=== PATIENT | female | born 1930 | race Caucasian/White ===

== ENCOUNTER 2016-05-08 13:12 | Emergency (ER) | payer MEDICARE ==
[2016-05-08 13:32] VITALS: BP 189/71
--- NOTE | 2016-05-08 13:52 | UC ---
General HPI - HPI Summary HPI Summary: PT HERE CONCERNED ABOUT ELEVATED BP. HAS HAD SYSTOLIC READINGS INTO THE 170S OVER THE PAST 2 DAYS. SHE REPORTS HER NORMAL BP IS 130S-140S ALTHOUGH SHE DOES NOT ROUTINELY CHECK IT AND HAS NOT CHECKED IT RECENTLY UNTIL 2 DAYS AGO WHEN SHE FELT "OFF". HEAD FELT "FOGGY". NO CP, SOB, NAUSEA OR VISUAL DISTURBANCE. DOES HAVE A SLIGHT MENA. ALSO C/O WORSENING RIGHT SHOULDER PAIN SINCE FEBRUARY 2016. HAS BEEN GOING TO PT FOR PRESUMPTIVE ROTATOR CUFF INJURY. NO NEW INJURY TO EXPLAIN WORSENING SX. - History of Current Complaint Chief Complaint: UCGeneralIllness Stated Complaint: HEADACHE SHOULDER PAIN BP UP Time Seen by Provider: 05/08/16 13:40 Hx Obtained From: Patient Onset/Duration: Gradual Onset, Lasting Days, Still Present Timing: Constant Onset Severity: Moderate Current Severity: Moderate Pain Intensity: 8 Associated Signs & Symptoms: Positive: Headache. Negative: Abdominal Pain, Back Pain, Confusion, Chest Pain, Decreased Responsiveness, Dizziness, Diaphoresis, Edema, Fever, Nausea, Palpitations, Recent Medication Changes, Syncope, SOB, Trauma, Vomiting, Weakness - Allergy/Home Medications Allergies/Adverse Reactions: Allergies Allergy/AdvReac Type Severity Reaction Status Date / Time No Known Allergies Allergy Verified 01/11/16 14:12 Home Medications: Home Medications One Daily Women 50+Advanced 05/08/16 [History] PMH/Surg Hx/FS Hx/Imm Hx Endocrine History Of: Denies: Diabetes, Thyroid Disease Cardiovascular History Of: Reports: Cardiac Disorders, Hypertension Denies: Pacemaker/ICD Respiratory History Of: Reports: Bronchitis - 10/2013, [place] NOW Denies: COPD, Asthma GI/ History Of: Denies: Ulcer, Kidney Stones, Renal Disease Cancer History Of: Denies: Breast Cancer Other History Of: Anticoagulant Therapy - Surgical History Surgical History: Yes Surgery Procedure, Year, and Place: AORTIC valve replacement, 2011, [facility] [place] UP TO 3T CARD IN OTHER FACILITY. , 1964, [facility]. Cataract surgery, 2011, [facility] [place], [facility] LEFT FOOT - Family History Known Family History: Positive: Hypertension - Social History Alcohol Use: None Substance Use Type: None Smoking Status (MU): Never Smoked Tobacco Have You Smoked in the Last Year: No - Immunization History Most Recent Influenza Vaccination: this season Most Recent Tetanus Shot: 09/2012 Most Recent Pneumonia Vaccination: 2002 Review of Systems Constitutional: Negative Skin: Negative Respiratory: Negative Cardiovascular: Negative Gastrointestinal: Negative Musculoskeletal: Arthralgia, Decreased ROM, Myalgia Neurological: Headache All Other Systems Reviewed And Are Negative: Yes Physical Exam Triage Information Reviewed: Yes Appearance: Well-Appearing, No Pain Distress, Well-Nourished Vital Signs: Initial Vital Signs Temp 98.1 F 05/08/16 13:25 Pulse 66 05/08/16 13:25 Resp 18 05/08/16 13:25 BP 189/71 05/08/16 13:25 Pulse Ox 100 05/08/16 13:25 Vital Signs Reviewed: Yes Eyes: Positive: Conjunctiva Clear ENT: Positive: Hearing grossly normal Neck: Positive: Supple Respiratory Exam: Normal Cardiovascular: Positive: RRR, Pulses Normal, Murmur:Sys:Grade _?_/ - 2/6 Abdomen Description: Positive: Soft Musculoskeletal: Positive: ROM Limited @ - RIGHT SHOULDER. UNABLE TO PERFORM SPECIAL TESTING DUE TO PATIENT DISCOMFORT., Edema @ - 2+ PITTING EDEMA BILATERALLY Neurological: Positive: Alert Psychological: Positive: Normal Response To Family, Age Appropriate Behavior Skin: Negative: rashes Course/Dx - Differential Dx - Multi-Symptom Provider Diagnoses: 1. RIGHT SHOULDER PAIN. 2. UNCONTROLLED HYPERTENSION Discharge - Discharge Plan Condition: Stable Disposition: HOME Prescriptions: Amlodipine Besylate [Norvasc-] 10 mg PO DAILY #30 tab Patient Education Materials: Hypertension (ED), Shoulder Pain (ED) Referrals: Susy Quevedo MD [Primary Care Provider] - 1 Week Marianne Dailey MD [Medical Doctor] - As Soon As Possible Additional Instructions: SHOULDER SLING FOR COMFORT. OKAY TO CONTINUE WITH GENTLE PHYSICAL THERAPY. FOLLOW-UP WITH ORTHO. YOU MAY BENEFIT FROM IMAGING TO FURTHER EVALUATE YOUR SHOULDER INJURY. WILL INCREASE YOUR NORVASC TO 10MG DAILY. KEEP A BP LOG AND BRING IT TO YOUR PCP APPT FOR REVIEW. BE AWARE THAT NORVASC AND SIMVASTATIN (ZOCOR) TOGETHER CAN INCREASE SIMVASTATIN LEVELS IN YOUR SYSTEM AND INCREASE YOUR RISK OF SIDE EFFECTS SUCH ELEVATED LIVER FUNCTION TESTS AND MUSCLE PAIN. YOU WILL NEED PERIODIC LAB TESTING. CONSIDER DECREASING YOUR SIMVASTATIN DOSE TO 20MG DAILY OR SWITCHING TO AN ALTERNATIVE CHOLESTEROL MEDICINE. PLEASE DISCUSS THIS WITH YOUR PCP. STAY HYDRATED AND WELL RESTED. AVOID EXCESSIVE CAFFEINE. AVOID OTC NSAIDS ( IBUPROFEN, NAPROXEN) THESE CAN ELEVATE YOUR BP. GO TO ER WITHOUT FAIL IF YOU DEVELOP WORSENING HEADACHE, CHEST PAIN, SHORTNESS OF BREATH, NAUSEA, SWEATS OR ANY OTHER CONCERNING SYMPTOMS.
== END 2016-05-08 14:30 | disposition home or self-care (01) ==
LOC: UCEAST 13:12
DX: I10 Essential (primary) hypertension (principal); M25.511 Pain in right shoulder; Z95.4 Presence of other heart-valve replacement; X58.XXXA Exposure to other specified factors, initial encounter; Y92.9 Unspecified place or not applicable
CPT/HCPCS: 99213; G0463

== ENCOUNTER 2016-07-04 13:38 | Emergency (ER) | payer MEDICARE ==
--- NOTE | 2016-07-04 14:10 | UC ---
Dizzy HPI HPI Summary: HAS HAD DIZZY SPELLS OVER THE PAST WEEK OR 2. HAPPENS WHILE WALKING. WILL SUDDENLY FEELS DIZZY AND SOB. LEGS FEEL WEAK AND PT BECOMES PRESYNCOPAL. AFTER SITTING FOR 30 MIN OR SO FEELS BETTER. HAPPENED YESTERDAY WHILE AT [facility] VISITING HER SISTER AND AGAIN TODAY WHILE AT [facility]. CALLED PCP OFFICE AND WAS ADVISED TO COME TO . DENIES CP, FEVER, NAUSEA. HAS H/O CAROTID DISEASE, AV REPLACEMENT, AFIB ON COUMADIN. - History Of Current Complaint Chief Complaint: UCDizziness Stated Complaint: DIZZY, SOB Time Seen by Provider: 07/04/16 13:47 Hx Obtained From: Patient, Family/Trimming Caser - Onset/Duration: Sudden Onset, Still Present Timing: Intermittent Episode Lasting Severity Initially: Moderate Severity Currently: Moderate Pain Intensity: 0 Pain Scale Used: 0-10 Numeric Character: Dizzy Aggravating Factor(s): Exertion Alleviating Factor(s): Rest Associated Signs And Symptoms: Positive: SOB. Negative: Nausea, Vomiting, Diaphoresis, Chest Pain, Palpitations - Allergies/Home Medications Allergies/Adverse Reactions: Allergies Allergy/AdvReac Type Severity Reaction Status Date / Time No Known Allergies Allergy Verified 05/18/16 13:18 PMH/Surg Hx/FS Hx/Imm Hx Endocrine History Of: Denies: Diabetes, Thyroid Disease Cardiovascular History Of: Reports: Cardiac Disorders - Aortic valve replacement , atrial fib, Hypertension - ON MEDS Denies: Pacemaker/ICD Respiratory History Of: Reports: Bronchitis - 10/2013, [place] NOW Denies: COPD, Asthma GI/ History Of: Denies: Ulcer, Kidney Stones, Renal Disease Cancer History Of: Denies: Breast Cancer Other History Of: Anticoagulant Therapy - Surgical History Surgical History: Yes Surgery Procedure, Year, and Place: AORTIC valve replacement, 2011,. , 1963, [facility]. Cataract surgery, 2011, [facility] [place], [facility] LEFT FOOT - Family History Known Family History: Positive: Hypertension - Social History Alcohol Use: None Substance Use Type: None Smoking Status (MU): Never Smoked Tobacco Have You Smoked in the Last Year: No - Immunization History Most Recent Influenza Vaccination: seaon Most Recent Tetanus Shot: 09/2012 Most Recent Pneumonia Vaccination: 2001 Review of Systems Constitutional: Negative Respiratory: Shortness Of Breath Cardiovascular: Negative Gastrointestinal: Negative Genitourinary: Negative Neurological: Weakness, Other - DIZZY All Other Systems Reviewed And Are Negative: Yes Physical Exam Triage Information Reviewed: Yes Appearance: Well-Appearing, No Pain Distress, Well-Nourished, Obese Vital Signs Reviewed: Yes Eyes: Positive: Conjunctiva Clear ENT: Positive: Hearing grossly normal Neck: Positive: Supple Respiratory Exam: Normal Cardiovascular: Positive: Murmur:Sys:Grade _?_/ - 2/6 Abdomen Description: Positive: Nontender, Soft Musculoskeletal: Positive: No Edema Neurological: Positive: Alert Psychological: Positive: Age Appropriate Behavior Skin: Negative: rashes Diagnostics - EKG Cardiac Rate: NL - 65 BPM Cardiac Rhythm: Sinus: Normal Ectopy: None ST Segment: Non-Specific - T WAVE FLATTENING LATERAL LEADS Dizzy Course/Dx - Differential Dx/Diagnosis Provider Diagnoses: DIZZY/SOB - Physician Notifications Discussed Patient Care With: KIRSTEN DAILEY Time Discussed With Above Provider: 14:10 - TO [facility] ER BY AMBULANCE Discharge - Discharge Plan Condition: Stable Disposition: AGAINST MEDICAL ADVICE Referrals: Susy Quevedo MD [Primary Care Provider] -
[2016-07-04 14:17] VITALS: BP 136/62
== END 2016-07-04 14:15 | disposition left against medical advice (07) ==
LOC: UCEAST 13:38
DX: R42 Dizziness and giddiness (principal); R06.02 Shortness of breath; I48.91 Unspecified atrial fibrillation; Z79.01 Long term (current) use of anticoagulants; I10 Essential (primary) hypertension; Z95.2 Presence of prosthetic heart valve; Z98.49 Cataract extraction status, unspecified eye; E66.9 Obesity, unspecified
CPT/HCPCS: 93005; 99212; G0463

== ENCOUNTER 2016-07-04 14:36 | Observation (INO) | payer MEDICARE ==
[2016-07-04 17:05] LABS: Hematocrit 32 % (35-47); Hemoglobin 10.8 g/dl (12.0-16.0); Mean Corpuscular HGB Conc 33 g/dl (31-36); Mean Corpuscular Hemoglobin 31 pg (27-31); Mean Corpuscular Volume 92 fL (80-97); Mean Platelet Volume 8 um3 (7.4-10.4); Red Blood Count 3.53 10^6/ul (4.0-5.4); Red Cell Distribution Width 14 % (10.5-15); White Blood Count 5.5 10^3/ul (3.5-10.8)
[2016-07-04 17:21] LABS: Troponin I 0.02 ng/mL (<0.04)
[2016-07-04 17:24] LABS: Albumin 3.9 g/dL (3.2-5.2); BUN/Creatinine Ratio 18.9 (8-20); Calcium 9.1 mg/dL (8.6-10.3); EGFR African American 44.9 (>60); EGFR Non-African American 34.9 (>60); Globulin 3.1 g/dL (2-4); Potassium 3.8 mmol/L (3.5-5.0); Total Bilirubin 0.5 mg/dL (0.2-1.0)
[2016-07-04 17:34] LABS: Urine Bilirubin Negative (Negative); Urine Glucose Negative (Negative); Urine Nitrite Negative (Negative)
[2016-07-04 17:39] LABS: TSH (Thyroid Stimulating Horm) 2.37 mcIU/mL (0.34-5.60)
--- NOTE | 2016-07-04 18:58 | ED ---
Alistair Scott Billy, scribed for Leeroy Eaton MD on 07/04/16 at 1619 . Dizziness - HPI Summary HPI Summary: Patient is an 85 year-old female coming to [facility] for evaluation of intermittent episodes of dizziness that last about 30 minutes. She states that she has had these episodes today, yesterday, and one week ago. She feels near-syncopal during the onset of these episodes. The episodes are improved with rest. Today, her dizziness began as she was walking. Patient denies any falls or injuries. She also states that she has had difficulty moving her bowels in the last 2-3 months. - History Of Current Complaint Chief Complaint: EDDizziness Stated Complaint: DIZZY COMMING FROM [facility] Time Seen by Provider: 07/04/16 16:08 Hx Obtained From: Patient Onset/Duration: Suddenly Timing: Intermittent Episode Lasting Severity Initially: Moderate Severity Currently: Moderate Character: Lightheaded Aggravating Factor(s): Nothing Alleviating Factor(s): Rest - Allergies/Home Medications Allergies/Adverse Reactions: Allergies Allergy/AdvReac Type Severity Reaction Status Date / Time No Known Allergies Allergy Verified 05/18/16 13:18 PMH/Surg Hx/FS Hx/Imm Hx Endocrine/Hematology History: Reports: Hx Anticoagulant Therapy, Hx Anemia Denies: Hx Diabetes, Hx Thyroid Disease Cardiovascular History: Reports: Hx Coronary Artery Disease, Hx Hypercholesterolemia, Hx Hypertension - ON MEDS, Hx Valvular Heart Disease, Other Cardiovascular Problems/Disorders - aortic valve replacement Denies: Hx Pacemaker/ICD Respiratory History: Denies: Hx Asthma, Hx Chronic Obstructive Pulmonary Disease (COPD) GI History: Denies: Hx Ulcer History: Denies: Hx Kidney Stones, Hx Renal Disease Musculoskeletal History: Reports: Hx Arthritis - GNERALIZED, Hx Back Problems, Other Musculoskeletal History - HAMMER TOE LEFT SECOND TOE Sensory History: Reports: Hx Cataracts - LENS IMPLANTS 2011, Hx Contacts or Glasses - GLASSES, Hx Vision Problem Denies: Hx Hearing Aid Opthamlomology History: Reports: Hx Cataracts - LENS IMPLANTS 2011, Hx Contacts or Glasses - GLASSES, Hx Vision Problem Psychiatric History: Denies: Hx Panic Disorder - Cancer History Hx Chemotherapy: No Hx Radiation Therapy: No - Surgical History Surgery Procedure, Year, and Place: AORTIC valve replacement, 2011,. , 1963, [facility]. [place] [facility] [place] Hx Anesthesia Reactions: No Infectious Disease History: No Infectious Disease History: Denies: Hx Clostridium Difficile, Hx Hepatitis, Hx Human Immunodeficiency Virus (HIV), Hx of Known/Suspected MRSA, Hx Shingles, Hx Tuberculosis, Hx Known/ Suspected VRE, Hx Known/Suspected VRSA, History Other Infectious Disease, Traveled Outside the [place] in Last 30 Days - Family History Known Family History: Positive: Hypertension - Social History Alcohol Use: None Substance Use Type: Reports: None Smoking Status (MU): Never Smoked Tobacco Have You Smoked in the Last Year: No Review of Systems Negative: Fever Positive: Other - difficulty with BM Neurological: Other - dizziness All Other Systems Reviewed And Are Negative: Yes Physical Exam Triage Information Reviewed: Yes Vital Signs On Initial Exam: Initial Vitals Temp Pulse Resp BP Pulse Ox 97.2 F 66 18 156/62 100 07/04/16 14:41 07/04/16 14:41 07/04/16 14:41 07/04/16 14:41 07/04/16 14:41 Vital Signs Reviewed: Yes Appearance: Positive: Well-Appearing, No Pain Distress Skin: Positive: Warm, Skin Color Reflects Adequate Perfusion, Dry Head/Face: Positive: Normal Head/Face Inspection Eyes: Positive: Normal - No nystagmus ENT: Positive: Normal ENT inspection Neck: Positive: Supple, Nontender Cardiovascular: Positive: RRR, Pulses are Symmetrical in both Upper and Lower Extremities Abdomen Description: Positive: Nontender, Soft Musculoskeletal: Positive: Strength/ROM Intact, Edema Left - 1+ pedal edema bilaterally, Edema Right - 1+ pedal edema bilaterally Neurological: Positive: Normal, Sensory/Motor Intact, Alert, Oriented to Person Place, Time Psychiatric: Positive: Affect/Mood Appropriate - Pete Coma Scale Coma Scale Total: 15 Diagnostics - Vital Signs Vital Signs Temp Pulse Resp BP Pulse Ox 07/04/16 16:00 63 99 07/04/16 15:57 64 99 07/04/16 15:49 97 F 65 16 184/73 99 07/04/16 14:41 97.2 F 66 18 156/62 100 - Laboratory Lab Results: Lab Results 07/04/16 07/04/16 07/04/16 Range/Units 16:46 16:46 16:46 WBC 5.5 (3.5-10.8) 10^3/ul RBC 3.53 L (4.0-5.4) 10^6/ul Hgb 10.8 L (12.0-16.0) g/dl Hct 32 L (35-47) % MCV 92 (80-97) fL MCH 31 (27-31) pg MCHC 33 (31-36) g/dl RDW 14 (10.5-15) % Plt Count 149 L (150-450) 10^3/ul MPV 8 (7.4-10.4) um3 Neut % (Auto) 65.5 (38-83) % Lymph % (Auto) 21.1 L (25-47) % [place] % (Auto) 11.4 H (1-9) % Eos % (Auto) 1.2 (0-6) % Baso % (Auto) 0.8 (0-2) % Absolute Neuts (auto) 3.6 (1.5-7.7) 10^3/ul Absolute Lymphs (auto) 1.2 (1.0-4.8) 10^3/ul Absolute Monos (auto) 0.6 (0-0.8) 10^3/ul Absolute Eos (auto) 0.1 (0-0.6) 10^3/ul Absolute Basos (auto) 0 (0-0.2) 10^3/ul Absolute Nucleated RBC 0 10^3/ul Nucleated RBC % 0.1 INR (Anticoag Therapy) (0.89-1.11) D-Dimer, Quantitative (Less Than 230) ng/mL Sodium 139 (133-145) mmol/L Potassium 3.8 (3.5-5.0) mmol/L Chloride 102 (101-111) mmol/L Carbon Dioxide 31 (22-32) mmol/L Anion Gap 6 (2-11) mmol/L BUN 27 H (6-24) mg/dL Creatinine 1.43 H (0.51-0.95) mg/dL Est GFR ( Amer) 44.9 (>60) Est GFR (Non-Af Amer) 34.9 (>60) BUN/Creatinine Ratio 18.9 (8-20) Glucose 100 (70-100) mg/dL Lactic Acid 0.7 (0.5-2.0) mmol/L Calcium 9.1 (8.6-10.3) mg/dL Magnesium 2.0 (1.9-2.7) mg/dL Total Bilirubin 0.50 (0.2-1.0) mg/dL AST 17 (13-39) U/L ALT 9 (7-52) U/L Alkaline Phosphatase 66 (34-104) U/L Troponin I 0.02 (<0.04) ng/mL Total Protein 7.0 (6.4-8.9) g/dL Albumin 3.9 (3.2-5.2) g/dL Globulin 3.1 (2-4) g/dL Albumin/Globulin Ratio 1.3 (1-3) TSH 2.37 (0.34-5.60) mcIU/mL Urine Color Urine Appearance Urine pH (5-9) Ur Specific [place] (1.010-1.030) Urine Protein (Negative) Urine Ketones (Negative) Urine Blood (Negative) Urine Nitrate (Negative) Urine Bilirubin (Negative) Urine Urobilinogen (Negative) Ur Leukocyte Esterase (Negative) Urine Glucose (Negative) 07/04/16 07/04/16 Range/Units 16:46 17:22 WBC (3.5-10.8) 10^3/ul RBC (4.0-5.4) 10^6/ul Hgb (12.0-16.0) g/dl Hct (35-47) % MCV (80-97) fL MCH (27-31) pg MCHC (31-36) g/dl RDW (10.5-15) % Plt Count (150-450) 10^3/ul MPV (7.4-10.4) um3 Neut % (Auto) (38-83) % Lymph % (Auto) (25-47) % [place] % (Auto) (1-9) % Eos % (Auto) (0-6) % Baso % (Auto) (0-2) % Absolute Neuts (auto) (1.5-7.7) 10^3/ul Absolute Lymphs (auto) (1.0-4.8) 10^3/ul Absolute Monos (auto) (0-0.8) 10^3/ul Absolute Eos (auto) (0-0.6) 10^3/ul Absolute Basos (auto) (0-0.2) 10^3/ul Absolute Nucleated RBC 10^3/ul Nucleated RBC % INR (Anticoag Therapy) 2.72 H (0.89-1.11) D-Dimer, Quantitative < 200 (Less Than 230) ng/mL Sodium (133-145) mmol/L Potassium (3.5-5.0) mmol/L Chloride (101-111) mmol/L Carbon Dioxide (22-32) mmol/L Anion Gap (2-11) mmol/L BUN (6-24) mg/dL Creatinine (0.51-0.95) mg/dL Est GFR ( Amer) (>60) Est GFR (Non-Af Amer) (>60) BUN/Creatinine Ratio (8-20) Glucose (70-100) mg/dL Lactic Acid (0.5-2.0) mmol/L Calcium (8.6-10.3) mg/dL Magnesium (1.9-2.7) mg/dL Total Bilirubin (0.2-1.0) mg/dL AST (13-39) U/L ALT (7-52) U/L Alkaline Phosphatase (34-104) U/L Troponin I (<0.04) ng/mL Total Protein (6.4-8.9) g/dL Albumin (3.2-5.2) g/dL Globulin (2-4) g/dL Albumin/Globulin Ratio (1-3) TSH (0.34-5.60) mcIU/mL Urine Color Straw Urine Appearance Clear Urine pH 7.0 (5-9) Ur Specific [place] 1.003 L (1.010-1.030) Urine Protein Negative (Negative) Urine Ketones Negative (Negative) Urine Blood Negative (Negative) Urine Nitrate Negative (Negative) Urine Bilirubin Negative (Negative) Urine Urobilinogen Negative (Negative) Ur Leukocyte Esterase Negative (Negative) Urine Glucose Negative (Negative) Result Diagrams: 07/04/16 16:46 07/04/16 16:46 Lab Statement: Any lab studies that have been ordered have been reviewed, and results considered in the medical decision making process. - EKG 5928 EKG Interpretation: borderline sinus bradycardia 60 bpm, diffuse nonspecific ST changes Dizzy Course/Dx - Course Course Of Treatment: Ms. Campos has a a numbeer of these concerning episodes and although her W/U is negative at this point, I have asked the hospitalist to see her in consultation. - Diagnoses Provider Diagnoses: Near syncope - Provider Notifications Discussed Care Of Patient with: Dr. Lincoln Discharge - Discharge Plan Condition: Stable Disposition: ADMITTED TO [facility] documentation as recorded by the Alistair harrington Billy accurately reflects the service I personally performed and the decisions made by me, Leeroy Eaton MD.
--- NOTE | 2016-07-04 20:55 | RAD ---
INDICATION: Shortness of breath. COMPARISON: Comparison is made with a prior chest x-ray study from August 13, 2015. TECHNIQUE: A portable view of the chest was obtained. FINDINGS: The patient is status post sternotomy and aortic valve replacement surgery. The heart is mildly enlarged and unchanged from the prior exam. The lungs are clear. No pleural effusion is seen. IMPRESSION: POSTSURGICAL CHANGES, NO EVIDENCE FOR ACUTE FINDING.
[2016-07-04] MEDS: Docusate CAP* 100 MG PO SCH (21:45)
[2016-07-04] MEDS: Carvedilol TAB* 3.125 MG PO SCH (21:45)
[2016-07-04] MEDS ORDERED: Atorvastatin* 20 MG TAB PO SCH (22:00)
--- NOTE | 2016-07-04 23:46 | HP ---
HISTORY AND PHYSICAL: DATE OF ADMISSION: 07/04/16 CHIEF COMPLAINT: "I almost passed out." HISTORY OF PRESENT ILLNESS: The patient is an 85-year-old woman who says she went to [place] earlier today, went to the bathroom, and urinated, walked out and then suddenly felt dizzy and lightheaded. The room was not spinning, but she felt like she was going to faint and she was breathing quite heavy. Her legs felt like they were going to give out, so she sat down for a while. Her got her and took her home and it took about half hour to recover. She had a similar episode yesterday when visiting her sister Myrna. She developed significant shortness of breath and felt she was going to faint. Again, she had to rest for half hour. The sensation of lightheadedness comes to the back of her neck to the top of her head. She denied any associated symptoms like palpitations, chest pain, wheezing, fevers, chills or cough. She does note that she has had small bowel movements lately that were like chocolate colored raisins. Her last colonoscopy was in 2008 or 2009 that was within normal limits. She also notes similar symptoms happened a week ago. She has had a lot of stress in her life lately as the last couple of months she had to visit her [id number] in hospice and sometimes goes all day without eating traveling back and forth. Also, her sister was recently injured this past weekend and again was quite active in helping her. PAST MEDICAL HISTORY: Significant for atrial fibrillation, hypertension, aortic stenosis, hyperlipidemia, and cataracts. PAST SURGICAL HISTORY: Significant for aortic valve replacement. CURRENT MEDICATIONS: 1. Amiodarone 100 mg daily. 2. Vitamin B12 1000 mcg daily. 3. Carvedilol 3.125 mg twice daily. 4. Calcium carbonate with vitamin D 2 tabs twice daily. 5. Aspirin 81 mg daily. 6. Amlodipine 5 mg daily. 7. Potassium chloride 1 tablet daily. 8. Women 50 plus vitamin 1 tablet daily. 9. Furosemide 40 mg in the morning. 10. Folic acid 1 mg in the morning. 11. Ferrous sulfate 325 mg in the morning. 12. Docusate 100 mg 3 times a day. 13. Coumadin 5 mg daily. 14. Zocor 40 mg daily. ALLERGIES: She has no known drug allergies. FAMILY HISTORY: Mother had a heart disease. Father had a stroke. SOCIAL HISTORY: No tobacco. She drinks a couple of cups coffee a day. No alcohol or recreational drug use. Her daughter, Dwaine Christine, and her are her healthcare proxies. REVIEW OF SYSTEMS: A 14-point review of systems was completed with the patient. All pertinent positives and negatives are in the history of present illness, otherwise it is negative. PHYSICAL EXAMINATION GENERAL: A very pleasant woman, lying in bed, in no acute distress. VITAL SIGNS: Blood pressure 172/68, pulse ox 100%, respiratory rate 16 breaths per minute, heart rate 69 beats per minute, and temperature 98.4 degrees. HEENT: Normocephalic, atraumatic. Pupils are equal, round, and reactive to light. Moist mucous membranes. NECK: Supple. No JVD, bruits, palpable thyroid, or lymphadenopathy. CARDIOVASCULAR: S1 and S2 appreciated. ABDOMEN: Positive bowel sounds in all 4 quadrants. Soft, nontender, and nondistended. EXTREMITIES: No cyanosis, clubbing, or edema; +2 peripheral pulses bilaterally. NEUROLOGIC: Alert and oriented x3. Moves all extremities. SKIN: No rashes or abnormalities. LABORATORY DATA/DIAGNOSTIC STUDIES: White count 5.5, hemoglobin 10.8, hematocrit 32, platelets 149. Sodium 139, potassium 3.8, chloride 102, CO2 31, BUN 37, creatinine 1.43, glucose 100. INR is 2.72. Urinalysis is unremarkable. EKG shows normal sinus rhythm at 60 beats per minute. Normal axis. Nonspecific ST-T wave changes. ASSESSMENT AND PLAN: 1. Near syncopal episode. At this point, it is unclear as to the etiology. I will cycle troponins to ensure she did not have , but I think it is highly unlikely. I will check a chest x-ray because of her shortness of breath, but again her lungs sound clear and she seems to be oxygenating well. I will add a BNP to her regimen. I will check a transthoracic echocardiogram in the morning. I suspect this may be stress and/or anxiety as the patient has been involved in a lot of family activities including her [id number] being in hospice and her sister recently being injured. We will also monitor and see if anything declares itself overnight. 2. Atrial fibrillation. Heart rate controlled, in sinus rhythm now and she is therapeutic on her Coumadin. 3. Hypertension: Inadequate control. May adjust medications as necessary. 4. Hyperlipidemia: Continue Lipitor. 5. FEN: Regular diet. 6. DVT prophylaxis. She is on Coumadin. 7. The patient is a full code. TIME SPENT: Over 75 minutes were spent on this H and P, more than 40 minutes of which was spent in direct [id number] contact with the patient in evaluation , physical exam, counseling and coordination of care. CC: Dr. Quevedo* [id number]/CPS #: [id number] DONNA
[2016-07-05] MEDS ORDERED: Perflutren Lipid Microsphere* 3 ML VIAL ONE (08:23)
[2016-07-05 08:44] VITALS: BP 155/58
[2016-07-05] MEDS: Docusate CAP* 100 MG PO SCH ×2 (08:46→13:03)
[2016-07-05] MEDS: Carvedilol TAB* 3.125 MG PO SCH (08:49)
[2016-07-05] MEDS ORDERED: Potassium Chlor TAB* 10 MEQ TAB.ER PO SCH (09:00)
[2016-07-05] MEDS ORDERED: Folic Acid TAB* 1 MG PO SCH (09:00)
[2016-07-05] MEDS ORDERED: amLODIPine TAB* 5 MG PO SCH (09:00)
[2016-07-05] MEDS ORDERED: Amiodarone TAB* 200 MG PO SCH (09:00)
[2016-07-05] MEDS ORDERED: Cyanocobalamin TAB* 500 MCG PO SCH (09:00)
[2016-07-05] MEDS ORDERED: Aspirin EC Low Dose* 81 MG TAB.EC PO SCH (09:00)
[2016-07-05] MEDS ORDERED: Ferrous Sulfate TAB* 325 MG PO SCH (09:00)
[2016-07-05] MEDS ORDERED: Multivitamins/Minerals TAB PO SCH (09:00)
--- NOTE | 2016-07-05 11:33 | ECHO ---
Patient: MARJAN BHAT [facility] Rec#: [id number] : 1930 Date: 07/05/2016 Age: 85y Height: 167.64 cm / 66.0 in Weight: 102.51 kg / 225.9 lbs Sex: F BSA: 2.11 Room#: 442 Admit Date#: 07/04/2016 Type: Inpatient Referring: Brent Lincoln MD Reading: Dannie Tripathi MD Inspection Manager: Brittni Lafleur,LINHCS,RDMS CC: Talib Cisneros MD CC: Susy Quevedo MD Transthoracic Echocardiogram Indication: Syncope BP: 126/48 HR: 56 Rhythm: Bradycardia Indications Syncope Findings History: AVR (bioprosthetic), HTN, HLD, AFIB, CAD Technical Comments: The study quality is fair. Completed 914 The study is technically limited due to poor apical windows. Left Ventricle: The left ventricular chamber size is normal. Mild to moderate concentric left ventricular hypertrophy is observed. Global left ventricular wall motion and contractility are within normal limits. The estimated ejection fraction is 60-65%. Post surgical hypokinesis of the interventricular septum is observed consistent with valve replacement. There is no consistent Doppler evidence of clinically significant diastolic dysfunction. Left Atrium: The left atrium is moderate to severely dilated. Right Ventricle: The right ventricle wall thickness is mildly increased. The right ventricular cavity size is normal. The right ventricular global systolic function is low normal. Right Atrium: The right atrium is moderately dilated. Aortic Valve: There is no evidence of aortic regurgitation. The mean gradient of the aortic valve is 10 mmHg. The aortic valve area, by peak velocities, is calculated at 1.3 cm2. A bio-prosthetic aortic valve is present. The bio-prosthetic aortic valve appears to be functioning normally. Mitral Valve: There is mitral annular calcification. The mitral valve leaflets are mildly thickened. There is trace to mild mitral regurgitation. There is mild mitral stenosis. The mitral valve area, by pressure half time, is calculated at 2.8 cm2. Tricuspid Valve: The tricuspid valve leaflets are normal. There is mild to moderate tricuspid regurgitation. No pulmonary hypertension is noted. Pulmonic Valve: The pulmonic valve appears normal. There is a trace pulmonic regurgitation. Pericardium: There is no significant pericardial effusion. Aorta: The aortic root appears normal. The aortic arch is not well visualized. Pulmonary Artery: The main pulmonary artery appears normal. Venous: The inferior vena cava appears normal in size. There is a greater than 50% respiratory change in the inferior vena cava dimension. Contrast: Definity was used to optimize study. A total of 5 ml was used Conclusions Mild to moderate concentric left ventricular hypertrophy is observed. Global left ventricular wall motion and contractility are within normal limits. The estimated ejection fraction is 60-65%. Post surgical hypokinesis of the interventricular septum is observed consistent with valve replacement. The left atrium is moderate to severely dilated. The right atrium is moderately dilated. A bio-prosthetic aortic valve is present. The bio-prosthetic aortic valve appears to be functioning normally. There is mitral annular calcification. There is trace to mild mitral regurgitation. There is mild mitral stenosis. The mitral valve area, by pressure half time, is calculated at 2.8 cm2. There is mild to moderate tricuspid regurgitation. There is a trace pulmonic regurgitation. Compared to report of study from 02/20/2013 the mild to moderate LVH is now noted. Measurements Name Value Normal Range RVIDd (AP) 2D 2.1 cm (0.9 - 2.6) RVDdMajor (2D) 2.9 cm (2.2 - 4.4) RAd ISD 4CH 6.7 cm (3.4 - 4.9) RA (A4C)W 3.8 cm (2.9 - 4.6) IVSd (2D) 1.4 cm (0.6 - 1) LVPWd (2D) 1.3 cm (0.6 - 1) LVIDd (2D) 4.5 cm (3.6 - 5.4) LVIDs (2D) 3 cm - LV FS (2D) 33 % (25 - 45) Aortic Annulus 2 cm (1.4 - 2.6) Ao root diameter (2D) 2.9 cm (2.1 - 3.5) Ascending Ao 3.4 cm (2.1 - 3.4) LA dimension (AP) 2D 4.8 cm (2.3 - 3.8) LAd ISD 4CH 7.7 cm (2.9 - 5.3) LA ISD 4CH W 5.5 cm (2.5 - 4.5) Name Value Normal Range LA ESV SP 4CH (A/L) 211.35 ml - LA ESV SP 2CH (A/L) 87.88 ml - LA ESV BP (A/L) 145.68 ml - LA ESV BP (A/L) index 69 ml/m2 - LA ESV SP 4CH (MOD) 203.53 ml - LA ESV SP 2CH (MOD) 83.81 ml - Name Value Normal Range MV E-wave Vmax 1.2 m/sec - MV deceleration time 184.2 msec - MV A-wave Vmax 0.5 m/sec - MV E:A ratio 2.4 ratio - P. vein S-wave Vmax 0.7 m/sec - P. vein D-wave Vmax 0.6 m/sec - P. vein A-wave duration 133 msec - LV lateral e' Vmax 0.12 m/sec - LV E:e' lateral ratio 10 ratio - Name Value Normal Range AV Vmax 2.1 m/sec - AV VTI 56.6 cm - AV peak gradient 18 mmHg - AV mean gradient 10 mmHg - LVOT diameter 2 cm - LVOT Vmax 0.9 m/sec - LVOT VTI 24.4 cm - LVOT peak gradient 3.2 mmHg - LVOT mean gradient 1.9 mmHg - DOI (VTI) 0.4 ratio - SV LVOT 76.81 ml - SANDY (continuity Vmax) 1.3 cm2 - SANDY (continuity VTI) 1.4 cm2 - Name Value Normal Range MV Vmax 1.4 m/sec - MV VTI 37.2 cm - MV peak gradient 8 mmHg - MV mean gradient 2.1 mmHg - MV PHT 78 msec - MVA (PHT) 2.8 cm2 - MVA (continuity VTI) 2.1 cm2 - Name Value Normal Range TR Vmax 2.8 m/sec - TR peak gradient 31 mmHg - RAP 3 mmHg - RVSP 34 mmHg - IVC diameter 2.1 cm - Name Value Normal Range PV Vmax 0.7 m/sec - PV peak gradient 2 mmHg -
[2016-07-05] MEDS ORDERED: Warfarin TAB(*) 5 MG PO SCH (17:00)
--- NOTE | 2016-07-06 05:00 | DS ---
DISCHARGE SUMMARY: DATE OF ADMISSION: 07/04/16 DATE OF DISCHARGE: 07/05/16 ADMISSION DIAGNOSIS: Near syncope. SECONDARY DIAGNOSES: 1. Atrial fibrillation. 2. Hypertension. 3. Aortic stenosis. 4. Hyperlipidemia. 5. Cataracts. DISCHARGE DIAGNOSES: 1. Near syncope. 2. Atrial fibrillation. 3. Hypertension. 4. Aortic stenosis. 5. Hyperlipidemia. 6. Cataracts. HOSPITAL COURSE: The patient is an 85-year-old woman who presented to [facility] because she almost passed out, was feeling lightheaded and dizzy. Please see H and P for further details. The patient was admitted, ruled out for an NM with serial troponins. The patient was on telemetry all night without a single incident. The patient had a transthoracic echo, the results of which are outlined below, which was unremarkable. The patient ambulated several times around the floor with no symptoms. 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 The patient ____ _ this could be the case, and she will follow up with her PCP as well. PHYSICAL EXAMINATION ON THE DATE OF DISCHARGE: Well-developed, well-nourished woman, sitting up in bed, in no acute distress. Vital Signs: Temperature 98.2 degrees, heart rate 56 beats per minute, respiratory rate 20 breaths per minute , pulse ox 95%, blood pressure 155/58. HEENT: Normocephalic, atraumatic. Pupils equal, round, and reactive to light. Moist mucous membranes. Neck: Supple. No JVD, bruits, palpable thyroid or lymphadenopathy. Her chest is clear to auscultation and percussion bilaterally. Cardiovascular Exam: S1, S2 appreciated. Abdominal Exam: Positive bowel sounds in all 4 quadrants. Soft, nontender, nondistended. Extremities: No cyanosis or clubbing, +2 peripheral pulse bilaterally. Neuro: Alert and oriented x3. Moves all extremities. Skin : No rashes or abnormalities. STUDIES DONE WHILE IN THE HOSPITAL: Chest x-ray, 07/04/16, impression: Postsurgical changes, no evidence for acute finding. Transthoracic echocardiogram, 07/04/16, impression: Ndgu-rp-mtyyazaj concentric left ventricular hypertrophy observed, global left ventricular wall motion contractility within normal limits. Estimated ejection fraction is 60% to 65%, postsurgical hypokinesis in the interventricular septum observed consistent with valve replacement. Left atrium is moderate to severely dilated. Right atrium is moderately dilated. Bioprosthetic aortic valve is present. The bioprosthetic aortic valve appears to be functioning normally. Mitral annular calcification, trace to mild mitral regurg, mild mitral stenosis , mitral valve area by pressure half times calculated to cm sq. There is ompr-gn-mixrlpny tricuspid regurgitation. There is trace pulmonic regurgitation compared to prior study in 02/20/13, there is tghv-gj-kybisloz LVH now noted. DISCHARGE MEDICATIONS: 1. Amiodarone 100 mg daily. 2. Vitamin B12 1000 mcg daily. 3. Carvedilol 3.125 mg twice daily. 4. Calcium carbonate with vitamin D two tabs twice daily. 5. Aspirin 81 mg daily. 6. Amlodipine 5 mg daily. 7. Potassium chloride one tablet 10 mEq daily. 8. Women advanced vitamin daily. 9. Furosemide 40 mg in the morning. 10. Folic acid 1 mg in the morning. 11. Ferrous sulfate 325 mg in the morning. 12. Docusate 100 mg 3 times a day. 13. Warfarin 5 mg daily. 14. Simvastatin 40 mg daily. DISCHARGE PLAN: The patient will be discharged to home and she will follow up with her PCP for further workup. The patient to return to the ED if she develops any worrisome symptoms. TIME SPENT: Over 35 minutes were spent on this discharge and more than 20 minutes of which were spent in direct face-to- face contact with the patient in evaluation, physical exam, counseling, and coordination of care. CC: Dr. Quevedo * [id number]/[facility] #: [id number] DONNA
== END 2016-07-05 16:19 | disposition home or self-care (01) ==
LOC: ED 14:36 → MEDTELE 17:48
PROVIDERS: ADMIT Internal Medicine; ATTEND Internal Medicine
DX: R55 Syncope and collapse (principal); I48.91 Unspecified atrial fibrillation; Z79.01 Long term (current) use of anticoagulants; Z79.82 Long term (current) use of aspirin; I10 Essential (primary) hypertension; I35.0 Nonrheumatic aortic (valve) stenosis; E78.5 Hyperlipidemia, unspecified
CPT/HCPCS: 36415; 71010; 80053; 81003; 83605; 83735; 83880; 84443; 84484; 85025; 85379; 85610; 93005; 93306; 99283; A9270-GY; C8929; G0378

== ENCOUNTER 2016-08-26 10:20 | Observation (INO) | payer MEDICARE ==
[2016-08-26] MEDS ORDERED: Diltiazem IV* 5 MG/ML 5 ML VIAL (for loading dose/IV Push) (25 MG) IV PUSH ONE (10:59)
[2016-08-26 11:17] LABS: Hematocrit 32 % (35-47); Hemoglobin 10.4 g/dl (12.0-16.0); Mean Corpuscular HGB Conc 33 g/dl (31-36); Mean Corpuscular Hemoglobin 30 pg (27-31); Mean Corpuscular Volume 93 fL (80-97); Mean Platelet Volume 8 um3 (7.4-10.4); Red Blood Count 3.42 10^6/ul (4.0-5.4); Red Cell Distribution Width 15 % (10.5-15); White Blood Count 5.3 10^3/ul (3.5-10.8)
[2016-08-26 11:42] LABS: Albumin 3.7 g/dL (3.2-5.2); BUN/Creatinine Ratio 14.8 (8-20); Calcium 8.9 mg/dL (8.6-10.3); EGFR African American 47.9 (>60); EGFR Non-African American 37.3 (>60); Globulin 3.1 g/dL (2-4); Potassium 3.7 mmol/L (3.5-5.0); Total Bilirubin 0.6 mg/dL (0.2-1.0); Total Protein 6.8 g/dL (6.4-8.9)
--- NOTE | 2016-08-26 11:48 | RAD ---
INDICATION: Chest pain COMPARISON: Most recent comparison chest x-rays dated July 04, 2016 TECHNIQUE: Single AP portable view of the chest was obtained. FINDINGS: Image quality is compromised due to the relative inferiority of a portable chest x-ray. Stable postsurgical findings include a prostatic aortic valve and sternotomy wires overlying the midline mediastinum. There is mild cardiomegaly and faint calcification overlying the arch of the aorta. The lungs are grossly clear. There is no evidence of a large pleural effusion. Visualized bones are normal for the patient's age. IMPRESSION: No radiographic evidence for acute cardiopulmonary abnormality on this portable chest x-ray.
[2016-08-26 11:53] LABS: Urine Bacteria Absent (Absent); Urine Bilirubin Negative (Negative); Urine Glucose Negative (Negative); Urine Nitrite Negative (Negative)
[2016-08-26 12:58] LABS: TSH (Thyroid Stimulating Horm) 3.91 mcIU/mL (0.34-5.60)
[2016-08-26] MEDS ORDERED: NS 0.9% 500 ML BAG* 500 ML IV ONE (13:00)
[2016-08-26] MEDS ORDERED: Diltiazem IV VIAL* 125 MG in D5W 100 ML BAG* 100 ML IV ONE (13:16)
[2016-08-26] MEDS ORDERED: Amiodarone TAB* 400 MG PO ONE (13:44)
[2016-08-26] MEDS ORDERED: Diltiazem IV* 5 MG/ML 5 ML VIAL (for loading dose/IV Push) (25 MG) IV SLOW PU ONE (13:44)
[2016-08-26] MEDS: KCL 20 MEQ/100 ML IVPREMIX* 20 MEQ/100 ML BAG IV SCH ×2 (15:35→18:36)
[2016-08-26] MEDS: Docusate CAP* 100 MG PO SCH ×2 (15:38→21:14)
[2016-08-26] MEDS ORDERED: Digoxin IV* 0.5 MG/2 ML AMP (0.25 MG/ML) IV SLOW PU ONE (15:47)
[2016-08-26] MEDS: Diltiazem IV VIAL* 125 MG in D5W 100 ML BAG* 100 ML IV ONE ×2 (15:50→19:10)
[2016-08-26] MEDS ORDERED: Warfarin TAB(*) 5 MG PO SCH (17:00)
[2016-08-26] MEDS ORDERED: Digoxin IV* 0.5 MG/2 ML AMP (0.25 MG/ML) IV SLOW PU SCH ×2 (18:00→20:00)
[2016-08-26] MEDS: Amiodarone TAB* 400 MG PO SCH ×2 (21:17→22:59)
[2016-08-26] MEDS: Carvedilol TAB* 3.125 MG PO SCH ×2 (21:17→22:58)
--- NOTE | 2016-08-26 21:36 | CONS ---
CARDIOLOGY CONSULTATION: DATE OF CONSULT: 08/26/16 PATIENT OF: Dr. Cisneros and Dr. Quevedo. REASON FOR EVALUATION: AFib, shortness of breath, elevated troponin. HISTORY OF PRESENT ILLNESS: Ms. Sherwood is a very pleasant 85-year-old woman, who has a history of hypertension and paroxysmal atrial fibrillation and aortic valve replacement in March 2012. She has required infrequent cardioversion over the last few years and been maintained on low-dose amiodarone. She apparently has been in her usual state of health until the last 3 months. She said that starting in June, she would notice a couple of episodes of exertional light-headedness that would come on with walking a few feet and she would get short of breath and lightheaded and had to sit for 15 minutes and then that would resolve. Her witnessed a couple of these episodes. She had a couple more in July and one last Saturday. In between, she is able to walk, do her shopping at the supermarket, do her chores cleaning the house, do her laundry. Yesterday, she awoke and was more short of breath and noticed that her heart was irregular. She said she did her chores, but having got fatigued and had to stop after each activity. Because of the symptoms, she came to the hospital today and was noted to be in AFib with rapid ventricular response. She also had some nonspecific ST changes inferolaterally different from what she had in August of 2015. Initially, she was given a bolus of diltiazem 20 mg with slowing of her heart rate to the 100s, but she also developed a low blood pressure in the low 90s. She was given some fluid and now has a better blood pressure and her heart rates are in the 120s to 130s. She denies any chest pain. She denies any strokes. No bleeding problem. No hematemesis, hematochezia, fevers, chills, or sweats. No nausea or vomiting. She denies alcohol use and she drinks 1 or 2 cups of decaffeinated coffee a day. PAST MEDICAL HISTORY: Includes hypertension, aortic valve replacement in 2012, paroxysmal atrial fibrillation in 2006, obesity. She denies tobacco use. She was recently diagnosed with a uterine mass 2 weeks ago and is anticipating possible surgery. She also has anemia which is chronic. She had a catheterization in January 2012. At that time, she had 50% left main lesion, ostial 50% of OM branch. Ramus had an ostial 50% and RCA had an ostial 50% and proximal 50% and at that time, she had fawlolzn-mu-tioyje aortic stenosis with a mean gradient of 36 and a valve area of 1.1. She has chronic renal insufficiency that is mild and chronic anemia. MEDICATIONS: As an outpatient include: 1. Colace 100 mg t.i.d. 2. Vitamin B12 1000 mcg a day. 3. Carvedilol 3.125 mg b.i.d. 4. Calcium carbonate with vitamin D 2 tabs p.o. b.i.d. 5. Aspirin 81 mg a day. 6. Amlodipine 5 mg a day. 7. Amiodarone 100 mg a day. 8. Warfarin 5 mg a day. 9. Simvastatin 40 mg a day. 10. Potassium 10 mEq a day. 11. Furosemide 40 mg a day. 12. Ferrous sulfate 325 a day. An an inpatient, she is on: 1. Amiodarone. 2. Aspirin. 3. Atorvastatin 20. 4. IV diltiazem. 5. Potassium chloride has been ordered. 6. Warfarin. SOCIAL HISTORY: She is , accompanied by her . She has 2 children and the daughter is at her bedside, Kita. She had 5 brothers, 6 sisters. She said that 4 brothers of coronary disease, two in their 50s. Two sisters of coronary disease. 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 REVIEW OF SYSTEMS: Review of systems x10 was negative except as above. PHYSICAL EXAM: She is a well-developed, well-nourished, obese female, in no apparent distress. Blood pressure was 109/80 with a heart rate of 99. Atraumatic, normocephalic. Extraocular muscles intact. Sclerae anicteric. JVD approximately 10 to 12 cm. Carotids 2+ without bruits. Cardiac Exam: S1, S2, tachycardic and irregular. There is a 1-2/6 systolic ejection murmur at the left lower sternal border. Chest was clear. No CVAT. Abdomen: Obese. Bowel sounds present. Nontender. No hepatosplenomegaly, although exam has been limited due to obesity. Femoral pulses intact without bruits. Distal pulses intact. Trace to 1+ edema and motor strength 5/5 bilaterally. Deep tendon reflexes were 2/4. Alert and oriented x3. DIAGNOSTIC STUDIES/LAB DATA: Include a white count of 5.3, hemoglobin 10.4, hematocrit 32, platelet count 168. Sodium 140, potassium at 3.7, BUN 20, creatinine 1.35. CK-MB was elevated at 10.6. Troponin elevated at 1. BNP elevated at 541. TSH of 3.9. EKG revealed atrial fibrillation with rapid ventricular response and diffuse ST depression similar to AFib with rapid ventricular response in 2016, but new compared to the sinus rhythm tracing. Chest x-ray: No evidence for acute abnormalities. She did have an echocardiogram performed at Dr. Cisneros's office on 07/05/16. At that time, she had ezot-zl-ptgzvywh LVH, EF of 60% to 65% and consistent with Doppler evidence of diastolic dysfunction, ptzaesuf-nd-qgaiye left atrial enlargement, aortic valve mean gradient was 10, valve area 1.3 sq. cm, bioprosthetic valve appeared to be functioning normally, govjp-vu-oyoc MR, mild mitral stenosis, tnge-wv-hykqejpz TR, no pulmonary hypertension. Compared to February 2013, the bwqy-bm-xfdiubub LVH was new. IMPRESSION AND PLAN: My impression is that Ms. Sherwood has a history of anemia and mild renal insufficiency, aortic valve replacement with a bioprosthetic aortic valve, hypertension, and paroxysmal atrial fibrillation, now presents with an episode of atrial fibrillation, which has been prolonged, associated with dyspnea and fatigue and also mild elevation of her troponin. I suspect her troponin elevation is related to her rapid atrial fibrillation and demand ischemia, but cannot rule out interval development of atherosclerotic heart disease. She also may have progression of her coronary disease. For the time being, I would recommend the followin. We will keep her n.p.o. after midnight for possible cardioversion tomorrow. 2. She is to have repeat echo to reassess her LV function and valvular function. 3. Would gently use IV diltiazem 10 mg bolus and 5 mg drip to see if can control her heart rate without excessively lowering her blood pressure. 4. She may have some mild decompensation with congestive heart failure. Once her heart rate is stabilized and blood pressure is stable, we could consider gentle diuresis. 5. We will try to maintain potassium over 4. 6. Would increase her amiodarone temporarily to 400 mg b.i.d. today and then 200 mg a day. 7. Would obtain pulmonary function test at some point either this admission or shortly after admission. 8. Would avoid caffeine and alcohol as she is doing. 9. Would continue anticoagulation with a goal INR of 2 to 3. 10. We would consider changing her simvastatin to atorvastatin to avoid interactions with her amiodarone and other medications. 11. Would consider changing her Lasix to Aldactone to try to control her blood pressure without excessively lowering her potassium. This will need to be done carefully given her chronic renal insufficiency. 12. 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 13. The last echo mentioned that the LVH was new. If indeed she has LVH out of proportion to her blood pressures, we could consider possibly an infiltrative cardiomyopathy and evaluate it further. [id number]/[facility] #: [id number] MTDCarline
--- NOTE | 2016-08-26 21:43 | HP ---
CC: Dr. Quevedo; Dr. Cisneros, superintendent storage area * HOSPITAL MEDICINE HISTORY AND PHYSICAL: DATE OF ADMISSION: 08/26/16 PRIMARY CARE PHYSICIAN: Dr. Quevedo. ATTENDING PHYSICIAN: Dr. Olga Lidia Ewing *(dictation provided by Patricia June NP) . CHIEF COMPLAINT: Fluttering in the chest. HISTORY OF PRESENT ILLNESS: Ms. Sherwood is an 85-year-old female with past medical history of atrial fibrillation, on amiodarone and warfarin, as well as aortic stenosis with bioprosthetic valve replacement, hypertension, and hyperlipidemia, who presented to the hospital today with concern for fluttering in the chest. Ms. Sherwood states that she developed a fluttering sensation in the chest yesterday. She was quite sure that she was in atrial fibrillation, but she hoped it would pass. She continued to have the feeling intermittently during the day yesterday. It was associated with shortness of breath with activity. This morning when she woke and she continued to feel the fluttering, and therefore she decided to come in to the hospital for evaluation. In addition to this episode, Ms. Sherwood states that she has had multiple episodes recently where she feels like she is about to pass out. She was admitted to our hospital in June 2016 with a near syncopal episode that was attributed to stress. Telemetry monitoring at that time showed no abnormality and echocardiogram showed an intact EF with a well-functioning bioprosthetic aortic valve. Ms. Sherwood states that she has not seen Dr. Cisneros since last fall and has not addressed these issues with him. However she has been following with Dr. Quevedo. She denies any other symptoms. She has had no chills, no fevers, no cough. She has been eating and drinking normally, has baseline constipation which is unchanged. She denies abdominal pain or nausea. In the emergency room, Ms. Sherwood was confirmed to be in atrial fibrillation with a heart rate running about 140. Her troponin is elevated to 1.00, BNP is 541. Her heart rate is approximately 110 after receiving a Cardizem bolus. She states she feels a mild fluttering in her chest, but no chest pain. Chest x -ray shows no acute abnormality. PAST MEDICAL HISTORY: 1. Aortic stenosis, status post bioprosthetic valve replacement. 2. Atrial fibrillation, on amiodarone and warfarin. 3. Hypertension. 4. Hyperlipidemia. 5. History of cataract surgery. 6. History of left toe surgery. 7. CKD stage 3. 8. Uterine mass. MEDICATIONS: 1. Calcium carbonate/vitamin D 2 tablets p.o. b.i.d. 2. Multivitamin 1 tablet p.o. daily. 3. Amiodarone 100 mg p.o. daily. 4. Amlodipine 5 mg p.o. daily. 5. Aspirin 81 mg p.o. daily. 6. Carvedilol 3.125 mg p.o. b.i.d. 7. Cyanocobalamin 1000 mcg p.o. daily. 8. Docusate 100 mg p.o. t.i.d. 9. Ferrous sulfate 325 mg p.o. daily. 10. Folic acid 1 mg p.o. daily. 11. Furosemide 40 mg p.o. daily. 12. Potassium chloride 10 mEq p.o. daily. 13. Simvastatin 40 mg p.o. daily. 14. Warfarin 5 mg p.o. daily. ALLERGIES: No known drug allergies. FAMILY HISTORY: Reviewed and noncontributory. Mother had a history of heart disease and father had a history of a CVA. SOCIAL HISTORY: No reported alcohol, tobacco or drug use. The patient lives with her who would be the healthcare proxy. REVIEW OF SYSTEMS: A 14-point review of systems was completed with Ms. Sherwood and all those not mentioned above were negative. PHYSICAL EXAMINATION GENERAL: Ms. Sherwood is sitting in the bed. She is in no acute distress. VITAL SIGNS: Temperature 97.5, heart rate 111, respiratory rate 17, O2 saturation 98% on room air, blood pressure 107/73. HEART: S1, S2. No murmur, rub or gallop, and regular. LUNGS: Clear to auscultation bilaterally with no accessory muscle use and good aeration. ABDOMEN: Soft and nontender with bowel sounds positive x4. EXTREMITIES: No cyanosis or edema. NEUROLOGIC: She is alert, she is oriented x3. She moves all extremities equally. There is no facial asymmetry or focal weakness. Extraocular movements are intact. SKIN: Intact. LABORATORY DATA: WBC 5.3, hemoglobin 10.4, hematocrit 32, platelet count 168. INR 2.63. Sodium 140, potassium 3.7, chloride 104, serum bicarbonate 29, BUN 20, creatinine 1.35. Glucose 128, troponin 1.00. BNP 541. Urine shows 2+ leukocyte esterase, but no nitrite. Chest x-ray shows no acute intrathoracic process. EKG shows AFib with a heart rate of about 140. ASSESSMENT: Ms. Sherwood is an 85-year-old female with past medical history of atrial fibrillation with bioprosthetic aortic valve replacement, who presented to the hospital today with concern for a fluttering in the chest, found to be in AFib with rapid ventricular response and an elevated troponin. Our plans are as follows: 1. AFib with rapid ventricular response. The patient's heart rate is better controlled after Cardizem bolus, but her blood pressure is initially running low systolically at approximately 90 but has responded well to a 500ml fluid bolus. Plan to continue with Cardizem IV 5 mg per hour and titrate based on her heart rate and blood pressure response. She is already anticoagulated on warfarin with a therapeutic INR . In the past, patient has required cardioversions with Dr. Cisneros. I have alerted Dr. Richards to patient's admission and requested consultation for possible cardioversion tomorrow and adjustment of medications. Beyond that, the patient will continue on her amiodarone and Coreg. The patient's potassium is 3.7, that will be repleted. Her magnesium is 2.0. 2. Elevated troponin. I suspect this is secondary to prolonged afib with RVR as patient is otherwise asymptomatic. Plan to trend troponins, continue aspirin and warfarin. Patient is scheduled for echocardiogram tomorrow. Further investigation will be undertaken based on clinical course. 3. Hypertension. Plan to hold amlodipine in the setting of need for Cardizem for atrial fibrillation with rapid ventricular response. 4. Hyperlipidemia. Continue atorvastatin as a substitute for simvastatin. 5. CKD stage 3, at baseline. 6. Uterine mass. Patient reports that a uterine mass was incidentally discovered by her PCP during workup for her near-syncopal episode. She is following with Dr. Cardona for this. 7. Positive UA: Patient denies dysuria or frequency. Plan to follow culture results. 8. Anemia. Chronic and at baseline. 9. DVT prophylaxis with warfarin with a therapeutic INR. 10. Code status: Full code. TIME SPENT: Approximately 60 minutes were spent in the admission of this patient, more than half the time spent with the patient at the bedside reviewing the events leading up to this hospitalization, performing the physical examination, and reviewing the plan of care. PATRICIA JUNE NP [id number]/CPS #: [id number] DONNA
[2016-08-27] MEDS ORDERED: Diltiazem DRIP* 100 MG/100 ML ADDV.BAG IVPB SCH (05:00)
[2016-08-27 05:25] LABS: BUN/Creatinine Ratio 14.5 (8-20); Calcium 8.3 mg/dL (8.6-10.3); Digoxin 1.5 ng/ml (0.8-2.0); EGFR African American 49.6 (>60); EGFR Non-African American 38.6 (>60); Potassium 4.1 mmol/L (3.5-5.0)
[2016-08-27] MEDS ORDERED: Morphine INJ* 2 MG/ML 1 ML SYRINGE IV PRN (08:33)
[2016-08-27] MEDS: Docusate CAP* 100 MG PO SCH (08:55)
[2016-08-27] MEDS: Carvedilol TAB* 3.125 MG PO SCH (08:55)
[2016-08-27] MEDS ORDERED: Warfarin TAB(*) 5 MG PO SCH ×2 (09:00→17:00)
[2016-08-27] MEDS ORDERED: Folic Acid TAB* 1 MG PO SCH (09:00)
[2016-08-27] MEDS ORDERED: Amiodarone TAB* 200 MG PO SCH ×2 (09:00)
[2016-08-27] MEDS ORDERED: amLODIPine TAB* 5 MG PO SCH (09:00)
[2016-08-27] MEDS ORDERED: Ferrous Sulfate TAB* 325 MG PO SCH (09:00)
[2016-08-27] MEDS ORDERED: Aspirin EC Low Dose* 81 MG TAB.EC PO SCH (09:00)
[2016-08-27] MEDS ORDERED: Cyanocobalamin TAB* 500 MCG PO SCH (09:00)
[2016-08-27] MEDS ORDERED: Potassium Chlor TAB* 10 MEQ TAB.ER PO SCH (09:00)
[2016-08-27] MEDS ORDERED: Furosemide TAB* 40 MG PO SCH (09:00)
[2016-08-27] MEDS ORDERED: Atorvastatin* 20 MG TAB PO SCH (09:00)
[2016-08-27] MEDS ORDERED: Perflutren Lipid Microsphere* 3 ML VIAL ONE (09:30)
[2016-08-27] MEDS ORDERED: Naloxone* 0.4 MG/ML 1 ML VIAL ONE (10:31)
[2016-08-27] MEDS ORDERED: fentaNYL* 50 MCG/ML 2 ML VIAL (100 MCG VIAL) ONE (10:31)
[2016-08-27] MEDS ORDERED: Midazolam* 1 MG/ML 5 ML VIAL (5 MG) ONE (10:31)
[2016-08-27] MEDS ORDERED: Flumazenil* 0.1 MG/ML 5 ML MDV ONE (10:32)
[2016-08-27 11:59] VITALS: BP 123/70
--- NOTE | 2016-08-27 13:38 | CARD ---
CARDIOVERSION NOTE: DATE OF PROCEDURE: 08/27/16 - ROOM #440 PROCEDURE: Cardioversion. INDICATION: Atrial fibrillation. HISTORY: The patient is an 85-year-old female with a history of paroxysmal atrial fibrillation. The patient is on chronic Coumadin and amiodarone. The patient was admitted to the hospital with atrial fibrillation and rapid ventricular response. Cardioversion was recommended. PROCEDURE IN DETAIL: The patient was in a fasting state. Informed consent had been obtained prior to the procedure. All labs were reviewed. The patient was given 3 mg of Versed and 50 mcg of fentanyl for conscious sedation. The patient was cardioverted with 150 joules of synchronized biphasic energy. The patient converted to sinus bradycardia. The patient tolerated the procedure well with no complications. The patient will be seen in followup in my office in the next 2 to 3 weeks. [id number]/CPS #: [id number] MTDD
--- NOTE | 2016-08-27 13:53 | ECHO ---
Patient: MARJAN BHAT [facility] Rec#: [id number] : 1930 Date: 08/27/2016 Age: 85y Height: 165.1 cm / 65.0 in Weight: 104.33 kg / 229.9 lbs Sex: F BSA: 2.1 Room#: 440 Admit Date#: 08/26/2016 Type: Inpatient Referring: Harvey Richards MD Reading: Talib Cisneros MD Machine Clothing Replacer: Brittni Lafleur RDCS,RDMS CC: Susy Quevedo MD Transthoracic Echocardiogram Indication: Afib BP: 111/86 HR: 75 Rhythm: A-Fib Findings History: Bioprosthetic AVR, HTN, PAF, HLD, CAD Technical Comments: The study quality is fair. Completed 1240 Left Ventricle: The left ventricular chamber size is normal. Mild to moderate concentric left ventricular hypertrophy is observed. Basal interventricular septum shows moderate thickening. There is normal left ventricular systolic function. The estimated ejection fraction is 55-60%. The assessment of diastolic function is non-diagnostic. Left Atrium: The left atrium is severely dilated. Right Ventricle: The right ventricle wall thickness is mildly increased. The right ventricular cavity size is normal. The right ventricular global systolic function is low normal. Right Atrium: The right atrial cavity size is severely dilated. Aortic Valve: There is no evidence of aortic regurgitation. The aortic valve area, by peak velocities, is calculated at 1.3 cm2. A bio-prosthetic aortic valve is present. The bio-prosthetic aortic valve appears to be functioning normally. Mitral Valve: There is mitral annular calcification. The mitral valve leaflets are mildly thickened. There is a trace of mitral regurgitation. There is mild mitral stenosis. Tricuspid Valve: The tricuspid valve leaflets are normal. There is mild to moderate tricuspid regurgitation. Unable to estimate the right ventricular systolic pressure. Pulmonic Valve: The pulmonic valve structure is not well visualized. There is no evidence of pulmonic regurgitation. Pericardium: There is no significant pericardial effusion. Aorta: The aortic root appears normal. The aortic arch is not well visualized. Pulmonary Artery: The main pulmonary artery is not well visualized. Venous: The inferior vena cava appears normal in size. There is a greater than 50% respiratory change in the inferior vena cava dimension. Contrast: Definity was used to optimize study. A total of 3 ml was used Summary: There are no significant changes when compared to the previous study done on 07/05/16 Conclusions Mild to moderate concentric left ventricular hypertrophy is observed. Basal interventricular septum shows moderate thickening. The estimated ejection fraction is 55-60%. There is normal left ventricular systolic function. The left atrium is severely dilated. A bio-prosthetic aortic valve is present. The bio-prosthetic aortic valve appears to be functioning normally. The mitral valve leaflets are mildly thickened. There is a trace of mitral regurgitation. There is mild to moderate tricuspid regurgitation. Unable to estimate the right ventricular systolic pressure. There is no significant pericardial effusion. Measurements Name Value Normal Range RVIDd (AP) 2D 2.3 cm (0.9 - 2.6) RAd ISD 4CH 7.3 cm (3.4 - 4.9) RA (A4C)W 4.8 cm (2.9 - 4.6) IVSd (2D) 1.6 cm (0.6 - 1) LVPWd (2D) 1.4 cm (0.6 - 1) LVIDd (2D) 4 cm (3.6 - 5.4) LVIDs (2D) 2.7 cm - LV FS (2D) 34 % (25 - 45) Aortic Annulus 1.9 cm (1.4 - 2.6) Ao root diameter (2D) 2.9 cm (2.1 - 3.5) Ascending Ao 3 cm (2.1 - 3.4) LA dimension (AP) 2D 5.4 cm (2.3 - 3.8) LAd ISD 4CH 7.7 cm (2.9 - 5.3) LA ISD 4CH W 6 cm (2.5 - 4.5) Name Value Normal Range MV E-wave Vmax 1.4 m/sec - MV deceleration time 137 msec - LV lateral e' Vmax 0.12 m/sec - LV E:e' lateral ratio 11 ratio - Name Value Normal Range AV Vmax 2 m/sec - AV VTI 41.3 cm - AV peak gradient 16 mmHg - AV mean gradient 8 mmHg - LVOT diameter 2 cm - LVOT Vmax 0.8 m/sec - LVOT VTI 12.9 cm - LVOT peak gradient 2.6 mmHg - LVOT mean gradient 1.5 mmHg - SV LVOT 31.26 ml - SANDY (continuity Vmax) 1.3 cm2 - SANDY (continuity VTI) 1 cm2 - Name Value Normal Range MV Vmax 1.4 m/sec - MV VTI 23.4 cm - MV peak gradient 8 mmHg - MV mean gradient 3.1 mmHg - MV PHT 44 msec - MVA (PHT) 5 cm2 - MVA (continuity VTI) 1.3 cm2 - Name Value Normal Range RAP 8 mmHg - IVC diameter 2 cm -
--- NOTE | 2016-08-28 06:24 | DS ---
CC: Dr. Cisneros; Dr. Quevedo * DISCHARGE SUMMARY: DATE OF ADMISSION: 08/26/16 DATE OF DISCHARGE: 08/27/16 PRIMARY CARE PROVIDER: Dr. Quevedo. PRIMARY INSTRUMENT MAKER: Dr. Cisneros. DISCHARGING PROVIDER: KIRSTEN Bill SUPERVISING PHYSICIAN: Nicole Guerra MD * (DICTATED BY KIRSTEN BILL) PRIMARY DISCHARGE DIAGNOSES: 1. Atrial fibrillation with rapid ventricular response. 2. Demand ischemia with troponin peaking at 4.07 without wall motion changes appreciated on echocardiogram. SECONDARY DISCHARGE DIAGNOSES: 1. Aortic stenosis, status post bioprosthetic valve replacement. 2. Hypertension. 3. Hyperlipidemia. 4. Stage 3 chronic kidney disease. DISCHARGE MEDICATIONS: 1. Amiodarone 100 mg p.o. daily. 2. Amlodipine 5 mg p.o. daily. 3. Aspirin 81 mg p.o. daily. 4. Calcium and vitamin D supplementation 2 tablets p.o. twice daily. 5. Carvedilol 3.125 mg p.o. twice daily. 6. Vitamin B12 1000 mcg p.o. daily. 7. Docusate 100 mg p.o. 3 times daily. 8. Ferrous sulfate 325 mg p.o. daily. 9. Folic acid 1 mg p.o. daily. 10. Lasix 40 mg p.o. daily. 11. Potassium chloride 10 mEq p.o. daily. 12. Simvastatin 40 mg p.o. daily. 13. Coumadin 5 mg p.o. daily. MEDICATION CHANGES: None. HOSPITAL IMAGIN. Chest x-ray shows no acute process. 2. EKG initially shows AFib with a rate of 140. 3. EKG status post cardioversion shows sinus bradycardia. 4. Transthoracic echocardiogram shows mild to moderate LVH, EF of 55% to 60% without wall motion abnormalities, bioprosthetic aortic valve is in place and appears to be functioning normally. HOSPITAL COURSE: This is an 85-year-old female with history of atrial fibrillation, status post multiple cardioversions as well as aortic stenosis, status post bioprosthetic valve replacement as well as hypertension, hyperlipidemia, and stage 3 chronic kidney disease who presented to the emergency department with complaints of a fluttering sensation in her chest and occasional near syncope. Initial EKG demonstrated atrial fibrillation with a rapid ventricular rate. Her initial labs demonstrated that she has therapeutic INR. Renal function near baseline, but her initial troponin was elevated to 1.0. The patient was seen in consultation by Dr. Richards. She was subsequently loaded with amiodarone and started on a diltiazem drip and received IV digoxin for rate control. The patient remained free of chest pain, but did complain of occasional back pain that she felt as if was a muscle spasm without associated shortness of breath, but this seems to be fleeting. She was rate controlled with the above regimen with rate in the 80s and underwent cardioversion with Dr. Cisneros the morning of discharge, which was successful and she was in sinus bradycardia at the time of discharge, free of chest pain and palpitations. Serial troponins demonstrated peak of troponin to 4.07 overnight. She underwent echocardiogram, which did not show wall motion abnormalities. No ischemic changes appreciated on EKG. This rather significant rise in troponin was thought to be related to demand ischemia, and was discussed with Dr. Cisneros. DISPOSITION AND FOLLOWUP PLAN: Dr. Cisneros recommends resuming home medications without changes. She requires followup with her primary care provider as well as Dr. Cisneros regarding this hospital admission. No pending labs or imaging at the time of discharge. KIRSTEN BILL [id number]/[facility] #: [id number] DONNA
--- NOTE | 2016-08-29 13:45 | ED ---
I, Oh,Somisty, scribed for Shane Reynolds MD on 08/26/16 at 1101 . Shortness of Breath - HPI Summary HPI Summary: This 85 y/o female presents to ED for SOB since yesterday morning. Positive for mild CP and intermittent palpitation. Pt is also noted with BLE swelling and calf tenderness at time of initial evaluation. PMHx does include known afib that is controlled with Jantoven 5 mg. Blood thinner was recently increased from 2 mg to 5 mg. Other PMHx includes HTN, HLD, chronic bronchitis, and valve replacement. Primary care involves Dr. Quevedo. - History of Current Complaint Chief Complaint: EDShortnessOfBreath Time Seen by Provider: 08/26/16 10:33 Hx Obtained From: Patient, Medical Records Onset/Duration: Sudden Onset, Still Present Timing: Constant Dyspnea At: Rest Associated Signs & Symptoms: Chest Pain Unrelated to Cough, Calf Pain/Swelling, Edema - Allergy/Home Medications Allergies/Adverse Reactions: Allergies Allergy/AdvReac Type Severity Reaction Status Date / Time No Known Allergies Allergy Verified 05/18/16 13:18 PMH/Surg Hx/FS Hx/Imm Hx Endocrine/Hematology History: Reports: Hx Anticoagulant Therapy, Hx Anemia Denies: Hx Diabetes, Hx Thyroid Disease Cardiovascular History: Reports: Hx Coronary Artery Disease, Hx Hypercholesterolemia, Hx Hypertension - ON MEDS, Hx Valvular Heart Disease, Other Cardiovascular Problems/Disorders - aortic valve replacement Denies: Hx Pacemaker/ICD Respiratory History: Denies: Hx Asthma, Hx Chronic Bronchitis - bronchitis in 2014, Hx Chronic Obstructive Pulmonary Disease (COPD) GI History: Denies: Hx Ulcer History: Denies: Hx Kidney Stones, Hx Renal Disease Musculoskeletal History: Reports: Hx Arthritis - GNERALIZED, Hx Back Problems, Other Musculoskeletal History - HAMMER TOE LEFT SECOND TOE Denies: Hx Osteoporosis Sensory History: Reports: Hx Cataracts - LENS IMPLANTS 2011, Hx Contacts or Glasses, Hx Vision Problem Denies: Hx Hearing Aid Opthamlomology History: Reports: Hx Cataracts - LENS IMPLANTS 2011, Hx Contacts or Glasses, Hx Vision Problem Psychiatric History: Denies: Hx Panic Disorder - Cancer History Hx Chemotherapy: No Hx Radiation Therapy: No - Surgical History Surgery Procedure, Year, and Place: AORTIC valve replacement, 2011,. , 1964, [facility]. Cataract surgery, 2011, [facility] [place] LEFT FOOT Hx Anesthesia Reactions: No Infectious Disease History: Denies: Hx Clostridium Difficile, Hx Hepatitis, Hx Human Immunodeficiency Virus (HIV), Hx of Known/Suspected MRSA, Hx Shingles, Hx Tuberculosis, Hx Known/ Suspected VRE, Hx Known/Suspected VRSA, History Other Infectious Disease, Traveled Outside the [place] in Last 30 Days - Family History Known Family History: Positive: Hypertension - Social History Alcohol Use: None Hx Substance Use: No Substance Use Type: Reports: None Hx Tobacco Use: No Smoking Status (MU): Never Smoked Tobacco Have You Smoked in the Last Year: No Review of Systems Negative: Fever Positive: Palpitations, Chest Pain Positive: Shortness Of Breath All Other Systems Reviewed And Are Negative: Yes Physical Exam - Summary Physical Exam Summary: VITAL SIGNS: Reviewed. GENERAL: Patient is an obese FEMALE who is lying comfortable in the stretcher. Patient is not in any acute respiratory distress. HEAD AND FACE: No signs of trauma. No ecchymosis, hematomas or skull depressions. No sinus tenderness. EYES: PERRLA, EOMI x 2, No injected conjunctiva, no nystagmus. EARS: Hearing grossly intact. Ear canals and tympanic membranes are within normal limits. MOUTH: Oropharynx within normal limits. NECK: Supple, trachea is midline, no adenopathy, no JVD, no carotid bruit, no c- spine tenderness, neck with full ROM. CHEST: Symmetric, no tenderness. IRR. LUNGS: Clear to auscultation bilaterally. No wheezing or crackles. CVS: Regular rate and rhythm, S1 and S2 present, no murmurs or gallops appreciated. ABDOMEN: Soft, non-tender. No signs of distention. No rebound no guarding, and no masses palpated. Bowel sounds are normal. EXTREMITIES: FROM in all major joints, no edema, no cyanosis or clubbing. BLE calf tenderness more notable at LLE than at RLE. LLE edema more notable than RLE. NEURO: Alert and oriented x 3. No acute neurological deficits. Speech is normal and follows commands. SKIN: Dry and warm Triage Information Reviewed: Yes Vital Signs On Initial Exam: Initial Vitals Temp Pulse Resp BP Pulse Ox 97.5 F 130 20 135/89 98 08/26/16 10:25 08/26/16 10:25 08/26/16 10:08/26/16 10:25 08/26/16 10:25 Vital Signs Reviewed: Yes Diagnostics - Vital Signs Vital Signs Temp Pulse Resp BP Pulse Ox 08/26/16 10:25 97.5 F 130 20 135/89 98 - Laboratory Lab Results: Lab Results 08/26/16 08/26/16 08/26/16 Range/Units 10:55 10:55 10:55 WBC 5.3 (3.5-10.8) 10^3/ul RBC 3.42 L (4.0-5.4) 10^6/ul Hgb 10.4 L (12.0-16.0) g/dl Hct 32 L (35-47) % MCV 93 (80-97) fL MCH 30 (27-31) pg MCHC 33 (31-36) g/dl RDW 15 (10.5-15) % Plt Count 168 (150-450) 10^3/ul MPV 8 (7.4-10.4) um3 Neut % (Auto) 71.3 (38-83) % Lymph % (Auto) 16.1 L (25-47) % Toombs % (Auto) 10.0 H (1-9) % Eos % (Auto) 1.7 (0-6) % Baso % (Auto) 0.9 (0-2) % Absolute Neuts (auto) 3.8 (1.5-7.7) 10^3/ul Absolute Lymphs (auto) 0.9 L (1.0-4.8) 10^3/ul Absolute Monos (auto) 0.5 (0-0.8) 10^3/ul Absolute Eos (auto) 0.1 (0-0.6) 10^3/ul Absolute Basos (auto) 0 (0-0.2) 10^3/ul Absolute Nucleated RBC 0 10^3/ul Nucleated RBC % 0 INR (Anticoag Therapy) 2.63 H (0.89-1.11) APTT 38.4 H (26.0-36.3) seconds Sodium 140 (133-145) mmol/L Potassium 3.7 (3.5-5.0) mmol/L Chloride 104 (101-111) mmol/L Carbon Dioxide 29 (22-32) mmol/L Anion Gap 7 (2-11) mmol/L BUN 20 (6-24) mg/dL Creatinine 1.35 H (0.51-0.95) mg/dL Est GFR ( Amer) 47.9 (>60) Est GFR (Non-Af Amer) 37.3 (>60) BUN/Creatinine Ratio 14.8 (8-20) Glucose 128 H (70-100) mg/dL Lactic Acid (0.5-2.0) mmol/L Calcium 8.9 (8.6-10.3) mg/dL Magnesium 2.0 (1.9-2.7) mg/dL Total Bilirubin 0.60 (0.2-1.0) mg/dL AST 16 (13-39) U/L ALT 8 (7-52) U/L Alkaline Phosphatase 64 (34-104) U/L Total Creatine Kinase 104 (10-223) U/L CK-MB (CK-2) 10.6 H (0.6-6.3) ng/mL Troponin I 1.00 H* (<0.04) ng/mL B-Natriuretic Peptide ( - 100) pg/mL Total Protein 6.8 (6.4-8.9) g/dL Albumin 3.7 (3.2-5.2) g/dL Globulin 3.1 (2-4) g/dL Albumin/Globulin Ratio 1.2 (1-3) TSH 3.91 (0.34-5.60) mcIU/mL Urine Color Urine Appearance Urine pH (5-9) Ur Specific Godfrey (1.010-1.030) Urine Protein (Negative) Urine Ketones (Negative) Urine Blood (Negative) Urine Nitrate (Negative) Urine Bilirubin (Negative) Urine Urobilinogen (Negative) Ur Leukocyte Esterase (Negative) Urine WBC (Auto) (Absent) Urine RBC (Auto) (Absent) Urine Bacteria (Absent) Urine Glucose (Negative) 08/26/16 08/26/16 08/26/16 Range/Units 10:55 10:55 11:44 WBC (3.5-10.8) 10^3/ul RBC (4.0-5.4) 10^6/ul Hgb (12.0-16.0) g/dl Hct (35-47) % MCV (80-97) fL MCH (27-31) pg MCHC (31-36) g/dl RDW (10.5-15) % Plt Count (150-450) 10^3/ul MPV (7.4-10.4) um3 Neut % (Auto) (38-83) % Lymph % (Auto) (25-47) % Toombs % (Auto) (1-9) % Eos % (Auto) (0-6) % Baso % (Auto) (0-2) % Absolute Neuts (auto) (1.5-7.7) 10^3/ul Absolute Lymphs (auto) (1.0-4.8) 10^3/ul Absolute Monos (auto) (0-0.8) 10^3/ul Absolute Eos (auto) (0-0.6) 10^3/ul Absolute Basos (auto) (0-0.2) 10^3/ul Absolute Nucleated RBC 10^3/ul Nucleated RBC % INR (Anticoag Therapy) (0.89-1.11) APTT (26.0-36.3) seconds Sodium (133-145) mmol/L Potassium (3.5-5.0) mmol/L Chloride (101-111) mmol/L Carbon Dioxide (22-32) mmol/L Anion Gap (2-11) mmol/L BUN (6-24) mg/dL Creatinine (0.51-0.95) mg/dL Est GFR ( Amer) (>60) Est GFR (Non-Af Amer) (>60) BUN/Creatinine Ratio (8-20) Glucose (70-100) mg/dL Lactic Acid 1.2 (0.5-2.0) mmol/L Calcium (8.6-10.3) mg/dL Magnesium (1.9-2.7) mg/dL Total Bilirubin (0.2-1.0) mg/dL AST (13-39) U/L ALT (7-52) U/L Alkaline Phosphatase (34-104) U/L Total Creatine Kinase (10-223) U/L CK-MB (CK-2) (0.6-6.3) ng/mL Troponin I (<0.04) ng/mL B-Natriuretic Peptide 541 H ( - 100) pg/mL Total Protein (6.4-8.9) g/dL Albumin (3.2-5.2) g/dL Globulin (2-4) g/dL Albumin/Globulin Ratio (1-3) TSH (0.34-5.60) mcIU/mL Urine Color Straw Urine Appearance Clear Urine pH 7.0 (5-9) Ur Specific Godfrey 1.004 L (1.010-1.030) Urine Protein Negative (Negative) Urine Ketones Negative (Negative) Urine Blood Negative (Negative) Urine Nitrate Negative (Negative) Urine Bilirubin Negative (Negative) Urine Urobilinogen Negative (Negative) Ur Leukocyte Esterase 2+ H (Negative) Urine WBC (Auto) Trace(0-5/hpf) (Absent) Urine RBC (Auto) Absent (Absent) Urine Bacteria Absent (Absent) Urine Glucose Negative (Negative) Result Diagrams: 08/26/16 10:55 08/27/16 04:39 Lab Statement: Any lab studies that have been ordered have been reviewed, and results considered in the medical decision making process. - Radiology CXR Xray Interpretation: No Acute Changes Radiology Interpretation Completed By: Radiologist - EKG 1034 EKG Rhythm: Atrial Fibrillation - at 140 bpm Re-Evaluation - Re-Evaluation First Eval Re-Evaluation Time: 12:25 Comment: MD in room to update pt on plan of care involving possible admission. Pt is agreeable. Course/Dx - Course Assessment/Plan: This 85 y/o female presents to ED for SOB since yesterday morning. Positive for mild CP and intermittent palpitation. Pt is also noted with BLE swelling and calf tenderness at time of initial evaluation. PMHx does include known afib that is controlled with Jantoven 5 mg. Blood thinner was recently increased from 2 mg to 5 mg. Other PMHx includes HTN, HLD, chronic bronchitis, and valve replacement. Primary care involves Dr. Quevedo. . Bloodwork shows mild on chronic anemia, INR 2.63, CK-MG of 10.4, BNP 541. UA indicates no UTI. CXR without no acute pathology. 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 Pt was given cardizem for afib with RVR. Upon re-evaluation, HR ranges between 100 to 110. Clinical findings were discussed with Dr. Boyer, who accepts pt's admission. Patient is hemodynamically stable and A+0 x 3. - Diagnoses Differential Diagnosis/HQI/PQRI: Positive: CHF, VA, Pulmonary Edema Provider Diagnoses: Atrial fibrillation with RVR, CHF (congestive heart failure) - Physician Notifications Discussed Care of Patient With: Ky Boyer Time Discussed With Above Provider: 12:18 Discharge - Discharge Plan Condition: Stable Disposition: ADMITTED TO [facility] documentation as recorded by the Warren harrington Soohyun accurately reflects the service I personally performed and the decisions made by Rodolfo leblanc Walter, MD.
== END 2016-08-27 15:15 | disposition home or self-care (01) ==
LOC: ED 10:20 → MEDTELE 13:02
PROVIDERS: ADMIT Hospitalist; ATTEND Hospitalist
DX: I48.91 Unspecified atrial fibrillation (principal); I35.0 Nonrheumatic aortic (valve) stenosis; E78.5 Hyperlipidemia, unspecified; I12.9 Hypertensive chronic kidney disease with stage 1 through stage 4 chronic kidney disease, or unspecified chronic kidney disease; N18.3 Chronic kidney disease, stage 3 (moderate); R74.8 Abnormal levels of other serum enzymes; D64.9 Anemia, unspecified; Z79.899 Other long term (current) drug therapy; I51.7 Cardiomegaly; Z79.82 Long term (current) use of aspirin; Z79.01 Long term (current) use of anticoagulants; R94.31 Abnormal electrocardiogram [ECG] [EKG]; R06.02 Shortness of breath
CPT/HCPCS: 36415; 71010; 80048; 80053; 80162; 81003; 81015; 82550; 82553; 83605; 83735; 83880; 84443; 84484; 85025; 85610; 85730; 87086; 92960; 93005; 93306; 96365; 96366; 96375; 96376; 99284; A9270-GY; C8929; G0378; J1160; J2250; J2270; J2310; J3010; J3480

== ENCOUNTER 2016-10-11 10:00 | Inpatient (IN) | payer MEDICARE ==
[2016-10-11] MEDS ORDERED: Diltiazem IV* 5 MG/ML 5 ML VIAL (for loading dose/IV Push) (25 MG) IV PUSH ONE (10:16)
[2016-10-11 10:33] LABS: Hematocrit 34 % (35-47); Hemoglobin 11.1 g/dl (12.0-16.0); Mean Corpuscular HGB Conc 33 g/dl (31-36); Mean Corpuscular Hemoglobin 31 pg (27-31); Mean Corpuscular Volume 95 fL (80-97); Mean Platelet Volume 8 um3 (7.4-10.4); Red Blood Count 3.58 10^6/ul (4.0-5.4); Red Cell Distribution Width 15 % (10.5-15); White Blood Count 5.2 10^3/ul (3.5-10.8)
[2016-10-11] MEDS ORDERED: NS 0.9% 1000 ML* 1,000 ML IV ONE (10:34)
--- NOTE | 2016-10-11 11:04 | RAD ---
INDICATION: Rapid atrial fibrillation COMPARISON: Most recent chest x-rays dated August 26, 2016 TECHNIQUE: Single AP portable view of the chest was obtained. FINDINGS: Image quality is compromised due to the relative inferiority of a portable chest x-ray. Postsurgical changes include sternotomy wires down the midline and a prostatic aortic valve unchanged in the previous chest x-ray. The heart and mediastinum exhibit normal size and contour. Again seen is mild calcified atherosclerosis overlying the arch of the aorta. The lungs are grossly clear. There is no evidence of a large pleural effusion. Visualized bones are normal for the patient's age. IMPRESSION: No radiographic evidence for acute cardiopulmonary abnormality on this portable chest x-ray.
[2016-10-11 11:06] LABS: Albumin 3.7 g/dL (3.2-5.2); BUN/Creatinine Ratio 13.5 (8-20); Calcium 8.9 mg/dL (8.6-10.3); EGFR African American 45.5 (>60); EGFR Non-African American 35.4 (>60); Potassium 3.8 mmol/L (3.5-5.0); Total Bilirubin 0.5 mg/dL (0.2-1.0); Total Protein 6.7 g/dL (6.4-8.9)
[2016-10-11] MEDS ORDERED: Furosemide IV* 10 MG/ML VIAL (40 MG) IV ONE (11:10)
[2016-10-11 11:13] LABS: Troponin I 0.7 ng/mL (<0.04)
[2016-10-11 11:25] LABS: TSH (Thyroid Stimulating Horm) 3.31 mcIU/mL (0.34-5.60)
[2016-10-11] MEDS ORDERED: Diltiazem DRIP* 100 MG/100 ML ADDV.BAG IVPB SCH ×2 (12:00→12:39)
[2016-10-11 12:03] LABS: Urine Bacteria Absent (Absent); Urine Bilirubin Negative (Negative); Urine Glucose Negative (Negative); Urine Nitrite Negative (Negative)
[2016-10-11] MEDS ORDERED: Ondansetron INJ* 2 MG/ML VIAL IV PRN (12:35)
[2016-10-11] MEDS ORDERED: Diltiazem IV* 5 MG/ML 5 ML VIAL (for loading dose/IV Push) (25 MG) IV SLOW PU ONE (12:39)
[2016-10-11] MEDS ORDERED: KCL 10 MEQ/50 ML IVPREMIX* 10 MEQ/50 ML BAG IV SCH (13:00)
[2016-10-11] MEDS ORDERED: Midazolam* 1 MG/ML 5 ML VIAL (5 MG) ONE (14:40)
[2016-10-11] MEDS ORDERED: fentaNYL* 50 MCG/ML 2 ML VIAL (100 MCG VIAL) ONE (14:40)
[2016-10-11] MEDS ORDERED: Flumazenil* 0.1 MG/ML 5 ML MDV ONE (14:40)
[2016-10-11] MEDS ORDERED: Naloxone* 0.4 MG/ML 1 ML VIAL ONE (14:40)
[2016-10-11] MEDS: KCL 10 MEQ/50 ML IVPREMIX* 10 MEQ/50 ML BAG IV SCH ×2 (15:22→16:31)
--- NOTE | 2016-10-11 15:24 | HP ---
CC: Dr. Quevedo; Dr. Richards; Dr. Cisneros * HISTORY AND PHYSICAL: DATE OF ADMISSION: 10/11/16 PRIMARY CARE PROVIDER: Dr. Quevedo. ATTENDING PHYSICIAN WHILE IN THE HOSPITAL: Dr. Olga Lidia Ewing * (report dictated by Jorje Jensen NP). CHIEF COMPLAINT: Palpitations. HISTORY OF PRESENT ILLNESS: Ms. Sherwood is an 86-year-old female patient. She has a history of aortic stenosis, status post bioprosthetic valve replacement; AFib; hypertension; hyperlipidemia; CKD, stage 3; uterine mass; history of CAD, which was nonobstructive, but she did have CAD in the past. She comes in today stating that yesterday she went to see Dr. Cardona for the uterine mass, they are planning on extracting this next week, but unfortunately after the appointment, she started noticing she was feeling fatigued, not feeling herself, she started having palpitations. She has tried Valsalva maneuvers at home. The palpitations persisted from yesterday afternoon throughout the day yesterday and this morning when she woke up, she was feeling the same. She knew that she was in AFib again and she decided to come into the hospital. She recently did have a Holter monitor in place because she has been having intermittent episodes of feeling dizzy and lightheaded, but no syncope, where she has been turned into Dr. Cisneros's office and has been evaluated. She denied any chest pain with it. There is no shortness of breath. Denied having any bleeding. No vomiting, no diarrhea. She denied having had any chest pain or any orthopnea though she has been feeling well with exception of the palpitations. She came in, was evaluated, found to be in AFib with RVR. Cardiology was consulted and we were asked to evaluate for admission. PAST MEDICAL HISTORY: Significant for: 1. Aortic stenosis. 2. AFib. 3. Hypertension. 4. Hyperlipidemia. 5. CKD, stage 3. 6. Uterine mass. 7. History of CAD. PAST SURGICAL HISTORY: The patient has a history of: 1. Aortic valve replacement. 2. Cataract surgery. 3. Left toe surgery. 4. . MEDICATIONS: Home meds include: 1. Multivitamin 1 tablet daily. 2. Warfarin 5 mg daily. 3. Zocor 40 mg daily. 4. Potassium 10 mEq p.o. daily. 5. B12 1000 mcg p.o. daily. 6. Amiodarone 100 mg p.o. daily. 7. Colace 100 mg p.o. t.i.d. 8. Aspirin 81 mg p.o. daily. 9. Lasix 40 mg daily. 10. Folic acid 1 mg p.o. daily. 11. Ferrous sulfate 325 mg p.o. daily. 12. Carvedilol 3.125 mg p.o. b.i.d. 13. Calcium carbonate 2 tabs p.o. b.i.d. ALLERGIES TO MEDICATIONS: Include no known drug allergies. FAMILY HISTORY: Mother had history of heart disease. Father had history of CVA. SOCIAL HISTORY: The patient does not drink. She does not smoke. She drinks caffeine occasionally. Surrogate decision maker is her . REVIEW OF SYSTEMS: There is no documented fever. She denied having had any significant weight change. There was no double vision. There is no ear discharge. She denies having had any rhinorrhea. There is no sore throat. No thyroid enlargement. She denies having any chest pain. There is no orthopnea. There is no nocturnal dyspnea. There is no abdominal pain. There is no nausea, no vomiting. No dysuria, no frequency. There is no seizure. There was no loss of consciousness. No pruritus, no skin ulceration. Review of 14 systems completed, all others negative. PHYSICAL EXAMINATION GENERAL: At this time, Ms. Sherwood is an 86-year-old female patient coming in to the ER today. She appears to be well nourished, well developed. VITAL SIGNS: Blood pressure 137/98, pulse 132, respirations 20, O2 sat 100%, temperature 97.4. HEENT: Head is atraumatic, normocephalic. Eyes: EOMs are intact. Sclerae are anicteric, not pale. Throat: Oral mucosa appears to be moist. No oropharyngeal erythema. NECK: Supple. LUNGS: Clear to auscultation bilaterally. No wheezes, rales or rhonchi. HEART: Sounds S1 and S2. Irregularly irregular rate. No murmurs, rubs, or gallops. ABDOMEN: Soft, flat, nontender. Bowel sounds are present. EXTREMITIES: Pulses were 2+ throughout. She has no peripheral edema. She is able to move all 4 extremities with 5/5 strength. NEUROLOGIC: The patient is awake, alert, and oriented x3. Tongue is midline. Air Intercept Controller are equal. No gross focal deficits. SKIN: Grossly intact. DIAGNOSTIC STUDIES/LAB DATA: Today revealed a WBC 5.2, RBC of 3.58, hemoglobin 11.1, hematocrit 34, platelet count of . INR was 2.4, PTT was 35.9. Sodium was 138, potassium was 3.8, chloride of 102, bicarb 29, BUN 19, creatinine 1.41, glucose 131, lactate 1.3, calcium 8.9, total mag 2.0. Total bili 0.5, AST 17, ALT 8, alk phos 52. CK 79, CK-MB 8.0. Troponin 0.70. BNP is 709. Albumin is 3.7. Urine was obtained, it showed 3+ leukocyte esterase, 1 + rbc. She did have a chest x-ray obtained today, impression: No radiographic evidence for acute cardiopulmonary abnormality on this portable chest. EKG obtained today showed an atrial fibrillation with RVR with a rate of 145. She had some minimal ST depression, probably rate related, but no ST elevations were noted. This reviewed to her previous EKG, it is similar in appearance when she is in the AFib with RVR. Old medical records reviewed. She did have an echo just done in August of this year, which revealed EF of 55% to 60%. Old medical records reviewed. ASSESSMENT AND PLAN: Ms. Sherwood is an 86-year-old female patient coming in to the ER today with complaints of on outpatient evaluation found to have an elevated troponin. In addition to this, atrial fibrillation with rapid ventricular response. She will be admitted under observation status for: 1. Atrial fibrillation with rapid ventricular response. Dr. Richards did already evaluate the patient. Fortunately, her INR is therapeutic. The plan will be to go ahead and do a cardioversion later today. She last ate at 8:30 this morning, so we will try and do cardioversion later this afternoon. In the meantime, I am going to place her in the ICU. We will go ahead and continue the warfarin. In addition to this, we will put her on diltiazem drip and we will continue to follow. 2. Elevated troponin. It is probably demand ischemia, but she does have coronary artery disease. She has not had a recent evaluation of the coronary artery disease and the fact that she is going to surgery next week and the fact that every time she comes in, she is bumping her troponins. I think she needs a stress test. I did discuss this with Dr. Richards and again he actually brought this point up to and we are going to pursue stress testing and depending on the results of this, we may need to consider a cath or further evaluation. Unfortunately, she is not having any chest pain though and she is not having any symptoms. 3. Aortic stenosis. She can follow with her magazine writer, appears to be stable. 4. Hypertension. Continue with meds as prescribed. 5. Hyperlipidemia. Continue statin therapy. 6. Chronic kidney disease, stage 3. Creatinine is stable. 7. History of uterine mass. She is following with Dr. Cardona. 8. History of coronary artery disease. She is on a beta emmett, aspirin, and statin. We will continue these meds. 9. DVT prophylaxis. Her INR is 2.40. We will continue her warfarin. 10. Code status. She is a full code. 11. Fluids, electrolytes, and nutrition. She can be n.p.o., then heart- healthy diet after the cardioversion. TIME SPENT: On the admission was approximately 50 minutes, greater than half the time was spent [id number] with the patient, obtaining my history and physical, the other half time was spent going over the plan of care with the patient and implementing my plan of care. I did discuss the plan of care with my attending Dr. Ewing; she is in agreement. JORJE JENSEN NP [id number]/CPS #: [id number] DONNA
[2016-10-11] MEDS ORDERED: Amiodarone 150 MG IVPREMIX* 150 MG/100 ML BAG IV ONE (15:25)
--- NOTE | 2016-10-11 16:22 | CONS ---
CC: Dr. Cisneros; Dr. Quevedo * CARDIOLOGY CONSULTATION: DATE OF CONSULT: 10/11/16 PATIENT OF: Dr. Cisneros and Dr. Quevedo. REASON FOR EVALUATION: AFib. HISTORY OF PRESENT ILLNESS: This is a very pleasant 86-year-old woman, who has a history of hypertension, paroxysmal atrial fibrillation, and aortic valve replacement in March 2012. At that time, she also had non-obstructive disease with up to 50% left main. She has been maintained on low-dose amiodarone, has required infrequent cardioversions. She was having some exertional lightheadedness, starting in June and was getting more short of breath with exertion. Because of her symptoms, she came to the hospital and found to have AFib with rapid ventricular response on 08/26/16. At that time, she had a mild increase in her troponin, which peaked at 4.07. She was rate controlled and observed overnight, had a cardioversion with Dr. Cisneros. On 08/27, she also had an echocardiogram performed. At that time, on 08/27/16, she had qoza-oj-[id number] concentric LVH, basal septum showing moderate thickening, normal LV function of 55% to 60%. The LA was severely dilated. RV function was low normal. She had a bioprosthetic aortic valve, which appeared to be functioning normally. A trace MR and zoex-lz-xsqwtlig TR. No significant pericardial effusion and she underwent cardioversion on 08/17/16. She had 3 mg of Versed, 50 mcg of fentanyl, and 150 joules of synchronized biphasic shock, and she converted to sinus bradycardia. She has continued to have some episodes of exertional light-headedness and actually had an event monitor placed , results of which are unavailable at this point in time. She said she had a more severe episode before it was placed and a milder episode recently. Yesterday, she went to see a physician in anticipation of possible hysterectomy for uterine mass. She said after returning home, she noted her heart was irregular and little more short of breath. Because of persistent symptoms, she came to the emergency room today and was found to be in AFib with a rapid ventricular response. She denies any chest pain. No orthopnea. No peripheral edema. No syncope or near syncope. No strokes or mini strokes. No bleeding problems. She denies any changes in her medications except that amlodipine was discontinued by Dr. Cisneros a few weeks ago, on 09/12/16, because he was concerned about orthostatic lightheadedness. There was also some concern that she may be developing a tachybrady syndrome and she had event monitor placed to see if there are any arrhythmias associated with her symptoms. Of note, her blood pressure at that visit was 116/74. PAST MEDICAL HISTORY: Includes hypertension; aortic valve replacement in 2012; paroxysmal atrial fibrillation in 2006, cardioversion last month; uterine mass, anticipating possible hysterectomy; anemia, which is chronic; coronary artery disease, cath in January of 2012 revealed a 50% left main, ostial 50% of the OM branch, ramus had an ostial 50%, the RCA had an ostial 50% and proximal 50% at that time, she had dstpwekr-mc-pchtse aortic stenosis at that time prior to this; she also has chronic renal insufficiency. MEDICATIONS: As an outpatient her medications include: 1. Amiodarone 100 mg a day. 2. Aspirin 81 mg a day. 3. Furosemide 40 mg a day and she got 40 in the ER. 4. Iron sulfate 325 a day. 5. Folic acid 1 mg a day. 6. Carvedilol 3.125 b.i.d. 7. Calcium carbonate with vitamin D 2 tablets b.i.d. 8. Vitamin B12 1000 mcg daily. 9. Colace 100 mg t.i.d. 10. Potassium 10 mEq a day. 11. Simvastatin 40 mg a day. 12. Warfarin 5 mg a day. 13. Multivitamin. ALLERGIES: She has no known allergies. SOCIAL HISTORY: She is , accompanied by her . She has 2 children and a daughter who is with her. She has 5 brothers, 6 sisters; 4 brothers of coronary disease, 2 in their 50s. Two sisters of coronary disease. 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 REVIEW OF SYSTEMS: Her review of systems x10 was negative except as above. She says she has a cup of decaffeinated coffee a day. She denies any bleeding, fevers, chills, or sweats. PHYSICAL EXAM: She is a well-developed, well-nourished female, in no apparent distress. Atraumatic, normocephalic. Extraocular muscles intact. Sclerae anicteric. JVD approximately 8 to 10 cm. Carotids 2+ without bruits. No cervical adenopathy. No thyromegaly. Cardiac Exam: S1, S2 with a 2/6 systolic ejection murmur at the base. Chest was clear. No CVAT. Abdomen: Bowel sounds present. Obese. Nontender. No hepatosplenomegaly. Femoral pulses intact without bruits. Distal pulses intact. No pitting edema. Motor strength 5/5 bilaterally. Deep tendon reflexes 2/4. Alert and oriented x3. DIAGNOSTIC STUDIES/LAB DATA: Include hemoglobin of 11.1, hematocrit of 34, platelet count of 163. INR of 2.4. Potassium was low normal at 3.8. BUN of 19 , creatinine of 1.4 which is similar to her previous numbers. BNP was elevated at 709. Troponin was 0.7, this is down from 2.8 on 08/27/16, peak of 4.07 on . Magnesium 2.0. TSH 3.31. Chest x-ray from today revealed no evidence of cardiopulmonary abnormalities, mild calcified aortic sclerosis overlying the aorta, no evidence of large pleural effusion. EKG revealed what appeared to be atrial fibrillation with rapid ventricular response, diffuse ST depression, consider ischemia, and previous EKG on revealed sinus bradycardia with inferolateral ST depression, was less pronounced. IMPRESSION AND PLAN: My impression is that Ms. 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 I discussed this with the patient and Jorje Jensen NP, who is admitting the patient. For the time being, I would recommend the following: Given that she has not had anything to eat since 8:30 this morning, I propose that we control her rate with IV diltiazem and proceed with cardioversion to try to reverse the atrial fibrillation, get her back into sinus rhythm as soon as possible. She understands that this may be an ongoing problem and that a pacemaker may allow for more definitive control of her tachybrady syndrome. She reports that she has been compliant with her anticoagulation, is therapeutic. Because of the elevated troponins last time and the EKG changes, I suggest that a repeat evaluation for progression of her ischemia with a stress nuclear test. I suggest she follows up with Dr. Cisneros prior to surgery for further recommendation concerning whether she requires pacemaker or revascularization prior to her surgery. She is to avoid caffeine. We will try to maintain her potassium over 4. We will try to obtain the results of the event monitor. [id number]/[facility] #: [id number] DONNA
[2016-10-11] MEDS: Docusate CAP* 100 MG PO SCH ×2 (16:31→20:26)
--- NOTE | 2016-10-11 16:35 | ECHO ---
Patient: MARJAN BHAT [facility] Rec#: [id number] : 1930 Date: 10/11/2016 Age: 86y Height: 168 cm / 66.1 in Weight: 102.97 kg / 226.9 lbs Sex: F BSA: 2.11 Room#: [facility] Admit Date#: 10/11/2016 Type: Inpatient Referring: Harvey Richards MD Reading: Harvey Richards MD Contact Centre Supervisor[facility] Tran[facility]hor[facility] Echocardiogram Indication: A-fib BP: 110/79 HR: 48 Rhythm: Bradycardia Findings History: Bioprosthetic AVR, HTN, PAF, HLD, CAD. This is a LIMITED study to evaluate LV wall motion. Technical Comments: The study quality is fair. The study is technically limited due to patient body habitus. Completed at 1630. Left Ventricle: The left ventricular chamber size is normal. There are multiple regional wall motion abnormalities. There is mild to moderately decreased left ventricular systolic function. The estimated ejection fraction is 40-45%. The mid inferolateral, mid inferior, apical septal, apical lateral, and apical inferior wall segments are hypokinetic (score 2). The basal inferolateral, basal inferior, basal inferoseptal, and mid inferoseptal wall segments are akinetic (score 3). Overall wallmotion score index is 1.81 Right Ventricle: The right ventricular cavity size is normal. The right ventricular global systolic function is low normal. Conclusions There are multiple regional wall motion abnormalities. There is mild to moderately decreased left ventricular systolic function. The estimated ejection fraction is 40-45%. Inteval decrease in EF c/t 6.19.17 when the EF was 55-60%. Wallmotion BAS Normal BA Normal BAL Normal NEHAL Akinetic BI Akinetic BIS Akinetic MAS Normal MA Normal MAL Normal MIL Hypokinetic RI Hypokinetic MIS Akinetic Hypokinetic AA Normal AL Hypokinetic AI Hypokinetic APEX Normal
[2016-10-11] MEDS ORDERED: Warfarin TAB(*) 5 MG PO SCH (17:00)
[2016-10-11] MEDS: Amiodarone TAB* 200 MG PO SCH ×2 (18:21→20:27)
--- NOTE | 2016-10-11 20:04 | ED ---
Alanna Scott Thomas, scribed for Addie Nieves MD on 10/11/16 at 1016 . Palpitations / Dysrhythmia - HPI Summary HPI Summary: The pt is an 86 y/o F accompanied by presenting to the ED c/o tachycardia that began yesterday at 09:00. Her HR in the examination room was 140. Pt additionally c/o SOB (on exertion, chronic). Pt denies any pain, CP ( none yesterday or today), MENA, slurred speech. She is on a Warfarin 5mg (night). She took warfarin last night. She also takes Lasix 40mg every morning, Carvedilol 3.125mg BID, ASA 81mg daily, ferrous sulfate 325 every morning, docusate 100 mg three times per day, amidarone 100mg daily, Zocor 40mg daily, folic acid 1mg every morning, calcium carbonate-vitamin D, potassium chloride, and vitamin B12. PMHx: A-Fib, CAD, HLD, HTN. PSHx: aortic valve replacement ( 2012), ulcerated L 2nd toe repair. SHx: no tobacco/alcohol/drugs. FHx: HTN. Her anatomic pathologist is Dr. Cisneros and pt reports that he recently completed outpatient cardiac monitoring. - History of Current Complaint Chief Complaint: EDDysrhythmPalp Hx Obtained From: Patient, Family/[place] - present Onset/Duration: Sudden Onset, Lasting Days Timing: Constant Severity Initially: Moderate Severity Currently: Moderate Character: Fast - 140's in ED Aggravating: Nothing Alleviating: Nothing Associated Signs & Symptoms: Shortness of Breath Related History: Similar Episode/Dx as - rapid afib - Allergy/Home Medications Allergies/Adverse Reactions: Allergies Allergy/AdvReac Type Severity Reaction Status Date / Time No Known Allergies Allergy Verified 10/11/16 11:02 Home Medications: Home Medications Multiple Vitamins W/ Minerals [One Daily Multivitamin Wo] 1 tab PO DAILY [History Confirmed 10/11/16] Potassium Chlor TAB* [Klor Con ER TAB*] 10 meq PO DAILY 10/11/16 [History Confirmed 10/11/16] PMH/Surg Hx/FS Hx/Imm Hx Previously Healthy: No Endocrine/Hematology History: Reports: Hx Anticoagulant Therapy, Hx Anemia Denies: Hx Diabetes, Hx Thyroid Disease Cardiovascular History: Reports: Hx Coronary Artery Disease, Hx Hypercholesterolemia, Hx Hypertension - ON MEDS, Hx Valvular Heart Disease, Other Cardiovascular Problems/Disorders - aortic valve replacement Denies: Hx Pacemaker/ICD Respiratory History: Denies: Hx Asthma, Hx Chronic Bronchitis - bronchitis in 2015, Hx Chronic Obstructive Pulmonary Disease (COPD) GI History: Denies: Hx Gastrointestinal Bleed, Hx Hiatal Hernia, Hx Ulcer History: Denies: Hx Kidney Stones, Hx Renal Disease Musculoskeletal History: Reports: Hx Arthritis - GENERALIZED, Hx Back Problems, Other Musculoskeletal History - HAMMER TOE LEFT SECOND TOE Denies: Hx Osteoporosis Sensory History: Reports: Hx Cataracts - LENS IMPLANTS 2011, Hx Contacts or Glasses, Hx Vision Problem Denies: Hx Hearing Aid Opthamlomology History: Reports: Hx Cataracts - LENS IMPLANTS 2011, Hx Contacts or Glasses, Hx Vision Problem Neurological History: Denies: Hx Dementia, Hx Transient Ischemic Attacks (TIA) Psychiatric History: Denies: Hx Panic Disorder - Cancer History Hx Chemotherapy: No Hx Radiation Therapy: No - Surgical History Surgery Procedure, Year, and Place: AORTIC valve replacement, 2011,. , 1963, [facility]. Cataract surgery, 2011, [facility] [place], [facility] LEFT FOOT Hx Anesthesia Reactions: No Infectious Disease History: Denies: Hx Clostridium Difficile, Hx Hepatitis, Hx Human Immunodeficiency Virus (HIV), Hx of Known/Suspected MRSA, Hx Shingles, Hx Tuberculosis, Hx Known/ Suspected VRE, Hx Known/Suspected VRSA, History Other Infectious Disease, Traveled Outside the [place] in Last 30 Days - Family History Known Family History: Positive: Hypertension - Social History Occupation: Retired Lives: With Family Alcohol Use: None Hx Substance Use: No Substance Use Type: Reports: None Hx Tobacco Use: No Smoking Status (MU): Never Smoked Tobacco Have You Smoked in the Last Year: No Review of Systems Negative: Fever Positive: Other - POS: tachycardia. Negative: Chest Pain - none yesterday or today Positive: Shortness Of Breath - on exertion, chronic Gastrointestinal: Negative Musculoskeletal: Negative Skin: Negative Negative: Headache, Slurred Speech Psychological: Normal All Other Systems Reviewed And Are Negative: Yes Physical Exam Triage Information Reviewed: Yes Vital Signs On Initial Exam: Initial Vitals Temp Pulse Resp BP Pulse Ox 97 F 140 18 127/78 96 10/11/16 10:02 10/11/16 10:02 10/11/16 10:02 10/11/16 10:02 10/11/16 10:02 Vital Signs Reviewed: Yes Appearance: Positive: No Pain Distress, Ill-Appearing - tachycardic, Obese Skin: Positive: Warm, Skin Color Reflects Adequate Perfusion Head/Face: Positive: Normal Head/Face Inspection Eyes: Positive: Conjunctiva Clear ENT: Positive: Normal ENT inspection Neck: Positive: Supple, Nontender, No Lymphadenopathy Respiratory/Lung Sounds: Positive: Clear to Auscultation, Breath Sounds Present , Other - No respiratory distress Cardiovascular: Positive: Pulses are Symmetrical in both Upper and Lower Extremities, Murmur - 2/6 systolic murmur at the base, Tachycardia, Other - Brisk cap refill. irregularly irregular rhythm Abdomen Description: Positive: Nontender, No Organomegaly, Soft. Negative: Distended, Guarding, Peritoneal Signs, Pulsatile Mass Bowel Sounds: Positive: Present Musculoskeletal: Positive: Strength/ROM Intact. Negative: Edema Left, Edema Right Neurological: Positive: Sensory/Motor Intact, Alert, Oriented to Person Place, Time, Facial Symmetry, Speech Normal Psychiatric: Positive: Normal Diagnostics - Vital Signs Vital Signs Temp Pulse Resp BP Pulse Ox 10/11/16 10:02 97 F 140 18 127/78 96 - Laboratory Lab Results: Lab Results 10/11/16 10/11/16 10/11/16 Range/Units 10:21 10:21 10:21 WBC 5.2 (3.5-10.8) 10^3/ul RBC 3.58 L (4.0-5.4) 10^6/ul Hgb 11.1 L (12.0-16.0) g/dl Hct 34 L (35-47) % MCV 95 (80-97) fL MCH 31 (27-31) pg MCHC 33 (31-36) g/dl RDW 15 (10.5-15) % Plt Count 163 (150-450) 10^3/ul MPV 8 (7.4-10.4) um3 Neut % (Auto) 67.1 (38-83) % Lymph % (Auto) 19.5 L (25-47) % [place] % (Auto) 9.7 H (1-9) % Eos % (Auto) 2.9 (0-6) % Baso % (Auto) 0.8 (0-2) % Absolute Neuts (auto) 3.5 (1.5-7.7) 10^3/ul Absolute Lymphs (auto) 1.0 (1.0-4.8) 10^3/ul Absolute Monos (auto) 0.5 (0-0.8) 10^3/ul Absolute Eos (auto) 0.2 (0-0.6) 10^3/ul Absolute Basos (auto) 0 (0-0.2) 10^3/ul Absolute Nucleated RBC 0 10^3/ul Nucleated RBC % 0.1 INR (Anticoag Therapy) (0.89-1.11) APTT (26.0-36.3) seconds Sodium 138 (133-145) mmol/L Potassium 3.8 (3.5-5.0) mmol/L Chloride 102 (101-111) mmol/L Carbon Dioxide 29 (22-32) mmol/L Anion Gap 7 (2-11) mmol/L BUN 19 (6-24) mg/dL Creatinine 1.41 H (0.51-0.95) mg/dL Est GFR ( Amer) 45.5 (>60) Est GFR (Non-Af Amer) 35.4 (>60) BUN/Creatinine Ratio 13.5 (8-20) Glucose 131 H (70-100) mg/dL Lactic Acid 1.3 (0.5-2.0) mmol/L Calcium 8.9 (8.6-10.3) mg/dL Magnesium 2.0 (1.9-2.7) mg/dL Total Bilirubin 0.50 (0.2-1.0) mg/dL AST 17 (13-39) U/L ALT 8 (7-52) U/L Alkaline Phosphatase 62 (34-104) U/L Total Creatine Kinase 79 (10-223) U/L CK-MB (CK-2) 8.0 H (0.6-6.3) ng/mL Troponin I 0.70 H* (<0.04) ng/mL B-Natriuretic Peptide ( - 100) pg/mL Total Protein 6.7 (6.4-8.9) g/dL Albumin 3.7 (3.2-5.2) g/dL Globulin 3.0 (2-4) g/dL Albumin/Globulin Ratio 1.2 (1-3) TSH 3.31 (0.34-5.60) mcIU/mL Urine Color Urine Appearance Urine pH (5-9) Ur Specific [place] (1.010-1.030) Urine Protein (Negative) Urine Ketones (Negative) Urine Blood (Negative) Urine Nitrate (Negative) Urine Bilirubin (Negative) Urine Urobilinogen (Negative) Ur Leukocyte Esterase (Negative) Urine WBC (Auto) (Absent) Urine RBC (Auto) (Absent) Ur Squamous Epith Cells (Absent) Urine Bacteria (Absent) Urine Glucose (Negative) 10/11/16 10/11/16 10/11/16 Range/Units 10:21 10:21 11:30 WBC (3.5-10.8) 10^3/ul RBC (4.0-5.4) 10^6/ul Hgb (12.0-16.0) g/dl Hct (35-47) % MCV (80-97) fL MCH (27-31) pg MCHC (31-36) g/dl RDW (10.5-15) % Plt Count (150-450) 10^3/ul MPV (7.4-10.4) um3 Neut % (Auto) (38-83) % Lymph % (Auto) (25-47) % [place] % (Auto) (1-9) % Eos % (Auto) (0-6) % Baso % (Auto) (0-2) % Absolute Neuts (auto) (1.5-7.7) 10^3/ul Absolute Lymphs (auto) (1.0-4.8) 10^3/ul Absolute Monos (auto) (0-0.8) 10^3/ul Absolute Eos (auto) (0-0.6) 10^3/ul Absolute Basos (auto) (0-0.2) 10^3/ul Absolute Nucleated RBC 10^3/ul Nucleated RBC % INR (Anticoag Therapy) 2.40 H (0.89-1.11) APTT 35.9 (26.0-36.3) seconds Sodium (133-145) mmol/L Potassium (3.5-5.0) mmol/L Chloride (101-111) mmol/L Carbon Dioxide (22-32) mmol/L Anion Gap (2-11) mmol/L BUN (6-24) mg/dL Creatinine (0.51-0.95) mg/dL Est GFR ( Amer) (>60) Est GFR (Non-Af Amer) (>60) BUN/Creatinine Ratio (8-20) Glucose (70-100) mg/dL Lactic Acid (0.5-2.0) mmol/L Calcium (8.6-10.3) mg/dL Magnesium (1.9-2.7) mg/dL Total Bilirubin (0.2-1.0) mg/dL AST (13-39) U/L ALT (7-52) U/L Alkaline Phosphatase (34-104) U/L Total Creatine Kinase (10-223) U/L CK-MB (CK-2) (0.6-6.3) ng/mL Troponin I (<0.04) ng/mL B-Natriuretic Peptide 709 H ( - 100) pg/mL Total Protein (6.4-8.9) g/dL Albumin (3.2-5.2) g/dL Globulin (2-4) g/dL Albumin/Globulin Ratio (1-3) TSH (0.34-5.60) mcIU/mL Urine Color Straw Urine Appearance Clear Urine pH 7.0 (5-9) Ur Specific [place] 1.004 L (1.010-1.030) Urine Protein Negative (Negative) Urine Ketones Negative (Negative) Urine Blood Negative (Negative) Urine Nitrate Negative (Negative) Urine Bilirubin Negative (Negative) Urine Urobilinogen Negative (Negative) Ur Leukocyte Esterase 3+ H (Negative) Urine WBC (Auto) 1+(6-10/hpf) H (Absent) Urine RBC (Auto) Trace(0-2/hpf) (Absent) Ur Squamous Epith Cells Present H (Absent) Urine Bacteria Absent (Absent) Urine Glucose Negative (Negative) Result Diagrams: 10/11/16 10:21 10/11/16 10:21 Lab Statement: Any lab studies that have been ordered have been reviewed, and results considered in the medical decision making process. - Radiology CXR Xray Interpretation: No Acute Changes - no radiographic evidence for acute cardiopulmonary abnormality on this portable chest x-ray. Radiology Interpretation Completed By: Radiologist - EKG 10:13 Cardiac Rate: Tachycardia EKG Rhythm: Atrial Fibrillation EKG Interpretation: Nml IV conduction time, nml QTc, nml [place] EKG Comparison: Other - compared to 08/27/16, EKG is now A-Fib (was previously sinus bradycardia) Re-Evaluation - Re-Evaluation First Eval Re-Evaluation Time: 11:35 - HR 105, BP Change: Improved Course/Dx - Course Course Of Treatment: I was made aware of Troponin 0.7 at 11:19. I will call Dr. Thompson. (per office, Dr. Cisneros away). I called Dr. Thompson at 11:28, but she said that she does not cover Dr. Hodges patient at this time, and to consult Dr. Richards. Assessment/Plan: The pt is an 86 y/o F accompanied by presenting to the ED c/o tachycardia that began today at 09:00. Her HR in the examination room was 140. Pt additionally c/o SOB (on exertion, chronic). Pt denies any pain, CP (none yesterday or today), MENA, slurred speech. She is on a Warfarin 5mg (night) . She took warfarin last night. She also takes Lasix 40mg every morning, Carvedilol 3.125mg BID, ASA 81mg daily, ferrous sulfate 325 every morning, docusate 100 mg three times per day, amidarone 100mg daily, Zocor 40mg daily, folic acid 1mg every morning, calcium carbonate-vitamin D, potassium chloride, and vitamin B12. PMHx: A-Fib, CAD, HLD, HTN. PSHx: aortic valve replacement ( 2012), ulcerated L 2nd toe repair. SHx: no tobacco/alcohol/drugs. FHx: HTN. Her anatomic pathologist is Dr. Cisneros. An EKG at 10:13 reveals A-Fib at 145 BPM, nml IV conduction time, nml QTc, nml axis, compared to 08/27/16, rhythm is now A-Fib ( was previously sinus bradycardia). CXR reveals no radiographic evidence for acute cardiopulmonary abnormality on this portable chest x-ray. Bloodwork shows RBC 3.58, Hgb 11.1, Hct 34, INR 2.40. BNP >700, trop 0.7. Patients medication reviewed this visit. In the ED course the patient was given Diltiazem 10mg IV, Lasix 40mg IV. I was made aware of Troponin 0.7 at 11:19. I will call Dr. Cisneros. I called Dr. Thompson at 11:28, but she said that she does not cover Dr Anand patient at this time and to call cardiology phonograph needle tip maker. I consulted with Dr. Richards, cardiology, at 11:38. He will consult. I also consulted with Dr. Ewing, hospitalist, who will admit the patient at 11:47. Patient will be admitted to [facility] [place]. - Diagnoses Differential Diagnosis/HQI/PQRI: Positive: Congestive Heart Failure, Coronary Artery Disease, Other - afib with RVR, ACS Provider Diagnoses: Atrial fibrillation with RVR, Elevated troponin I level, Congestive heart failure - Physician Notifications Discussed Care Of Patient With: Harvey Richards Time Discussed With Above Provider: 11:38 Instructed by Provider To: Admit As Inpatient - I consulted with Dr. Richards, cardiology, at 11:38. He will consult. I also consulted with Dr. Ewing, hospitalist, who will admit the patient at 11:47. - Critical Care Time Critical Care Time: 30-74 min - 30 minutes Discharge - Discharge Plan Condition: Fair Disposition: ADMITTED TO [facility] documentation as recorded by the Alanna harrington Thomas accurately reflects the service I personally performed and the decisions made by me, Addie Nieves MD.
[2016-10-11] MEDS: Carvedilol TAB* 3.125 MG PO SCH (20:26)
[2016-10-12 06:04] LABS: Hematocrit 31 % (35-47); Hemoglobin 10.3 g/dl (12.0-16.0); Mean Corpuscular HGB Conc 33 g/dl (31-36); Mean Corpuscular Hemoglobin 31 pg (27-31); Mean Corpuscular Volume 95 fL (80-97); Mean Platelet Volume 8 um3 (7.4-10.4); Red Blood Count 3.28 10^6/ul (4.0-5.4); Red Cell Distribution Width 14 % (10.5-15); White Blood Count 5.6 10^3/ul (3.5-10.8)
[2016-10-12 06:26] LABS: BUN/Creatinine Ratio 13.6 (8-20); Calcium 8.5 mg/dL (8.6-10.3); EGFR African American 49.1 (>60); EGFR Non-African American 38.2 (>60); Potassium 3.7 mmol/L (3.5-5.0)
[2016-10-12 07:26] LABS: Troponin I 2.22 ng/mL (<0.04)
[2016-10-12] MEDS: Carvedilol TAB* 3.125 MG PO SCH (07:59)
[2016-10-12] MEDS: Furosemide TAB* 40 MG PO SCH (07:59)
[2016-10-12] MEDS ORDERED: Regadenoson* 0.4 MG/5 ML SYRINGE ONE (08:29)
[2016-10-12] MEDS ORDERED: Aminophylline IV* 25 MG/ML 10 ML VIAL ONE (08:29)
[2016-10-12] MEDS: Ferrous Sulfate TAB* 325 MG PO SCH (08:31)
[2016-10-12] MEDS: Docusate CAP* 100 MG PO SCH ×3 (08:31→19:42)
[2016-10-12] MEDS: Potassium Chlor TAB* 10 MEQ TAB.ER PO SCH (08:31)
[2016-10-12] MEDS: Atorvastatin* 20 MG TAB PO SCH (08:31)
[2016-10-12] MEDS: Amiodarone TAB* 200 MG PO SCH (08:31)
[2016-10-12] MEDS: Folic Acid TAB* 1 MG PO SCH (08:31)
[2016-10-12] MEDS: Aspirin EC Low Dose* 81 MG TAB.EC PO SCH (08:31)
[2016-10-12] MEDS ORDERED: Amiodarone TAB* 200 MG PO SCH (09:00)
[2016-10-12] MEDS ORDERED: Potassium Chloride LIQUID* 20 MEQ PACKET PO ONE (12:06)
--- NOTE | 2016-10-12 13:22 | RAD ---
Edited for charges. INDICATION: Elevated troponins. Atrial fibrillation. Coronary artery disease. COMPARISON: April 01, 2010 nuclear stress test. TECHNIQUE: 10.380 mCi of Tc-99m Myoview were administered IV. SPECT images of the heart were obtained. Later on the same day. Under the direction of Dr. Richards, the patient was given an IV injection of a pharmacologic stress agent. Subsequently, the patient was given an IV injection of 24.290 mCi Tc-99m Myoview. SPECT images of the heart were obtained and a gated wall motion study was performed. No CT for attenuation due to decreased range of motion of the arms. FINDINGS: Gated wall motion images were obtained at stress and demonstrate hypokinesia with sparing of the anterior wall. The calculated left ventricular ejection fraction is 48 % at stress. Estimated LEFT ventricular end diastolic volume is 94 mL. TID 1.03. Large perfusion defect involving the apical to basilar inferior wall with extension to the inferior aspect of the septum and lateral wall with partial reversal of the respective apical segments at rest. No additional fixed or reversible perfusion defects evident. IMPRESSION: 1. Large infarct involving the inferior wall with extension to the inferior aspects of the septum and lateral young with suggestion of jovanny-infarct ischemia involving the respective apical segments. 2. Hypokinesia with sparing of the anterior wall. Mild to moderate LEFT ventricular dysfunction with estimated LVEF of 48%. Negative for significant elevated estimated LEFT ventricular end-diastolic volume. ASSESSMENT: INTERMEDIATE TO HIGH RISK. Based on imaging criteria from ACC/AHA 2002 Guideline Update for the Management of Patients With Chronic Stable Angina Table 23. Noninvasive Risk Stratification. MTDD
--- NOTE | 2016-10-12 14:27 | PN ---
Subjective Date of Service: 10/12/16 Interval History: Pt is feeling well. She denies any chest pain or SOB. She states she feels better out of afib. Objective Active Medications: Acetaminophen (Tylenol Tab*) 650 mg PO Q4H PRN PRN Reason: FEVER/PAIN Amiodarone HCl (Cordarone Tab*) 200 mg PO DAILY COUNTS INCLUDE 234 BEDS AT THE [facility] Aspirin (Aspirin Ec Low Dose*) 81 mg PO DAILY COUNTS INCLUDE 234 BEDS AT THE [facility] Last Admin: 10/12/16 08:31 Dose: 81 mg Atorvastatin Calcium (Lipitor*) 20 mg PO DAILY COUNTS INCLUDE 234 BEDS AT THE [facility] Last Admin: 10/12/16 08:31 Dose: 20 mg Carvedilol (Coreg Tab*) 3.125 mg PO DAILY COUNTS INCLUDE 234 BEDS AT THE [facility] Docusate Sodium (Colace Cap*) 100 mg PO TID COUNTS INCLUDE 234 BEDS AT THE [facility] Last Admin: 10/12/16 08:31 Dose: 100 mg Ferrous Sulfate (Ferrous Sulfate Tab*) 325 mg PO QAM COUNTS INCLUDE 234 BEDS AT THE [facility] Last Admin: 10/12/16 08:31 Dose: 325 mg Folic Acid (Folvite Tab*) 1 mg PO QAM COUNTS INCLUDE 234 BEDS AT THE [facility] Last Admin: 10/12/16 08:31 Dose: 1 mg Furosemide (Lasix Tab*) 40 mg PO QAM COUNTS INCLUDE 234 BEDS AT THE [facility] Last Admin: 10/12/16 07:59 Dose: Not Given Ondansetron HCl (Zofran Inj*) 4 mg IV Q6H PRN PRN Reason: NAUSEA Potassium Chloride (Klor Con Er Tab*) 10 meq PO DAILY COUNTS INCLUDE 234 BEDS AT THE [facility] Last Admin: 10/12/16 08:31 Dose: 10 meq Warfarin Sodium (Coumadin Tab(*)) 5 mg PO DAILY@1700 COUNTS INCLUDE 234 BEDS AT THE [facility] PRN Reason: Protocol Last Admin: 10/11/16 16:32 Dose: 5 mg Vital Signs 10/11/16 10/11/16 10/11/16 14:25 14:30 14:35 Temperature Pulse Rate 45 128 Respiratory 15 16 Rate Blood Pressure 109/60 (mmHg) O2 Sat by Pulse 96 100 Oximetry 10/11/16 10/11/16 10/11/16 14:40 14:45 14:50 Temperature Pulse Rate 111 85 130 Respiratory 16 16 19 Rate Blood Pressure 106/67 (mmHg) O2 Sat by Pulse 100 97 100 Oximetry 10/11/16 10/11/16 10/11/16 14:55 15:00 15:05 Temperature Pulse Rate 137 77 Respiratory 21 19 18 Rate Blood Pressure 116/77 (mmHg) O2 Sat by Pulse 100 100 Oximetry 10/11/16 10/11/16 10/11/16 15:10 15:15 15:20 Temperature Pulse Rate 125 128 44 Respiratory 22 17 18 Rate Blood Pressure 136/96 104/46 (mmHg) O2 Sat by Pulse 100 98 99 Oximetry 10/11/16 10/11/16 10/11/16 15:22 15:25 15:30 Temperature Pulse Rate 50 49 47 Respiratory 18 17 16 Rate Blood Pressure 98/40 97/37 89/37 (mmHg) O2 Sat by Pulse 91 97 100 Oximetry 10/11/16 10/11/16 10/11/16 15:32 15:35 15:37 Temperature 98.4 F Pulse Rate 46 47 47 Respiratory 16 17 18 Rate Blood Pressure 96/38 102/42 102/41 (mmHg) O2 Sat by Pulse 100 100 100 Oximetry 10/11/16 10/11/16 10/11/16 15:40 15:45 15:50 Temperature Pulse Rate 47 48 48 Respiratory 17 18 18 Rate Blood Pressure 96/42 110/43 (mmHg) O2 Sat by Pulse 100 100 100 Oximetry 10/11/16 10/11/16 10/11/16 15:55 16:00 16:05 Temperature Pulse Rate 48 73 52 Respiratory 16 18 19 Rate Blood Pressure 127/61 (mmHg) O2 Sat by Pulse 100 100 100 Oximetry 10/11/16 10/11/16 10/11/16 16:10 16:15 16:20 Temperature Pulse Rate 51 53 51 Respiratory 15 19 18 Rate Blood Pressure 126/40 (mmHg) O2 Sat by Pulse 100 100 100 Oximetry 10/11/16 10/11/16 10/11/16 16:25 16:30 16:35 Temperature Pulse Rate 50 51 51 Respiratory 19 17 19 Rate Blood Pressure 119/92 (mmHg) O2 Sat by Pulse 100 100 100 Oximetry 10/11/16 10/11/16 10/11/16 16:40 16:45 16:50 Temperature Pulse Rate 52 53 51 Respiratory 15 13 17 Rate Blood Pressure 115/61 (mmHg) O2 Sat by Pulse 100 98 100 Oximetry 10/11/16 10/11/16 10/11/16 16:55 17:00 17:05 Temperature Pulse Rate 52 50 52 Respiratory 19 17 15 Rate Blood Pressure 137/68 (mmHg) O2 Sat by Pulse 100 100 96 Oximetry 10/11/16 10/11/16 10/11/16 17:10 17:15 17:20 Temperature Pulse Rate 54 53 106 Respiratory 15 17 17 Rate Blood Pressure (mmHg) O2 Sat by Pulse 100 97 100 Oximetry 10/11/16 10/11/16 10/11/16 17:25 17:30 17:35 Temperature Pulse Rate 52 53 56 Respiratory 17 17 18 Rate Blood Pressure 156/62 (mmHg) O2 Sat by Pulse 100 99 100 Oximetry 10/11/16 10/11/16 10/11/16 17:40 17:45 17:50 Temperature Pulse Rate 52 53 55 Respiratory 19 19 15 Rate Blood Pressure (mmHg) O2 Sat by Pulse 99 100 100 Oximetry 10/11/16 10/11/16 10/11/16 17:55 18:00 18:05 Temperature Pulse Rate 49 53 50 Respiratory 20 16 18 Rate Blood Pressure 138/50 (mmHg) O2 Sat by Pulse 100 98 100 Oximetry 10/11/16 10/11/16 10/11/16 19:00 19:15 19:20 Temperature 97.7 F Pulse Rate 47 51 Respiratory 13 20 17 Rate Blood Pressure (mmHg) O2 Sat by Pulse 96 100 Oximetry 10/11/16 10/11/16 10/11/16 19:25 19:30 19:35 Temperature Pulse Rate 47 51 49 Respiratory 18 18 13 Rate Blood Pressure 143/50 (mmHg) O2 Sat by Pulse 100 99 100 Oximetry 10/11/16 10/11/16 10/11/16 19:40 19:45 19:50 Temperature Pulse Rate 55 53 67 Respiratory 19 17 21 Rate Blood Pressure (mmHg) O2 Sat by Pulse 100 100 100 Oximetry 10/11/16 10/11/16 10/11/16 19:55 20:00 20:05 Temperature Pulse Rate 54 53 51 Respiratory 19 18 19 Rate Blood Pressure 140/45 (mmHg) O2 Sat by Pulse 100 98 100 Oximetry 10/11/16 10/11/16 10/11/16 20:10 20:15 20:20 Temperature Pulse Rate 52 50 48 Respiratory 19 19 19 Rate Blood Pressure (mmHg) O2 Sat by Pulse 100 100 100 Oximetry 10/11/16 10/11/16 10/11/16 20:25 20:30 20:35 Temperature Pulse Rate 51 51 53 Respiratory 18 18 18 Rate Blood Pressure 141/43 (mmHg) O2 Sat by Pulse 100 100 100 Oximetry 10/11/16 10/11/16 10/11/16 20:40 20:45 20:50 Temperature Pulse Rate 51 51 48 Respiratory 18 20 20 Rate Blood Pressure (mmHg) O2 Sat by Pulse 99 100 100 Oximetry 10/11/16 10/11/16 10/11/16 20:55 21:00 21:05 Temperature 97.7 F Pulse Rate 51 54 53 Respiratory 18 19 20 Rate Blood Pressure 107/89 (mmHg) O2 Sat by Pulse 100 100 100 Oximetry 10/11/16 10/11/16 10/11/16 21:10 21:15 21:20 Temperature Pulse Rate 70 49 51 Respiratory 19 21 21 Rate Blood Pressure (mmHg) O2 Sat by Pulse 97 100 100 Oximetry 10/11/16 10/11/16 10/11/16 21:25 21:30 21:32 Temperature Pulse Rate 49 56 53 Respiratory 19 12 18 Rate Blood Pressure 145/33 (mmHg) O2 Sat by Pulse 99 100 100 Oximetry 10/11/16 10/11/16 10/11/16 21:35 21:40 21:45 Temperature Pulse Rate 53 60 87 Respiratory 15 22 20 Rate Blood Pressure (mmHg) O2 Sat by Pulse 100 98 97 Oximetry 10/11/16 10/11/16 10/11/16 21:50 21:55 22:00 Temperature Pulse Rate 49 50 49 Respiratory 21 21 22 Rate Blood Pressure 116/44 (mmHg) O2 Sat by Pulse 99 100 100 Oximetry 10/11/16 10/11/16 10/11/16 22:05 22:10 22:15 Temperature Pulse Rate 51 51 52 Respiratory 22 20 20 Rate Blood Pressure (mmHg) O2 Sat by Pulse 100 100 100 Oximetry 10/11/16 10/11/16 10/11/16 22:20 22:25 22:30 Temperature Pulse Rate 50 49 48 Respiratory 19 20 20 Rate Blood Pressure 99/37 (mmHg) O2 Sat by Pulse 100 100 100 Oximetry 10/11/16 10/11/16 10/11/16 22:35 22:40 22:45 Temperature Pulse Rate 49 48 48 Respiratory 19 19 20 Rate Blood Pressure (mmHg) O2 Sat by Pulse 100 100 100 Oximetry 10/11/16 10/11/16 10/11/16 22:50 22:55 23:00 Temperature Pulse Rate 49 48 47 Respiratory 20 18 19 Rate Blood Pressure 103/38 (mmHg) O2 Sat by Pulse 99 99 99 Oximetry 10/11/16 10/12/16 10/12/16 23:05 00:00 01:00 Temperature Pulse Rate 47 Respiratory 20 16 16 Rate Blood Pressure (mmHg) O2 Sat by Pulse 100 Oximetry 10/12/16 10/12/16 10/12/16 01:20 01:25 01:30 Temperature Pulse Rate 46 50 48 Respiratory 22 18 19 Rate Blood Pressure 113/40 (mmHg) O2 Sat by Pulse 100 100 100 Oximetry 10/12/16 10/12/16 10/12/16 01:35 01:40 01:45 Temperature Pulse Rate 46 46 46 Respiratory 19 19 19 Rate Blood Pressure (mmHg) O2 Sat by Pulse 100 100 100 Oximetry 10/12/16 10/12/16 10/12/16 01:50 01:55 02:00 Temperature Pulse Rate 48 47 47 Respiratory 21 19 20 Rate Blood Pressure 121/40 (mmHg) O2 Sat by Pulse 99 99 99 Oximetry 10/12/16 10/12/16 10/12/16 02:05 02:10 02:14 Temperature Pulse Rate 47 46 Respiratory 18 20 Rate Blood Pressure (mmHg) O2 Sat by Pulse 100 99 100 Oximetry 10/12/16 10/12/16 10/12/16 02:15 02:20 02:25 Temperature Pulse Rate 46 47 47 Respiratory 19 20 20 Rate Blood Pressure (mmHg) O2 Sat by Pulse 99 99 99 Oximetry 10/12/16 10/12/16 10/12/16 02:30 02:35 02:40 Temperature Pulse Rate 48 47 47 Respiratory 19 19 18 Rate Blood Pressure 125/40 (mmHg) O2 Sat by Pulse 99 99 99 Oximetry 10/12/16 10/12/16 10/12/16 02:45 02:50 02:55 Temperature Pulse Rate 47 48 47 Respiratory 21 19 19 Rate Blood Pressure (mmHg) O2 Sat by Pulse 99 99 99 Oximetry 10/12/16 10/12/16 10/12/16 03:00 03:05 03:10 Temperature Pulse Rate 46 46 48 Respiratory 20 21 22 Rate Blood Pressure 116/44 (mmHg) O2 Sat by Pulse 100 100 100 Oximetry 10/12/16 10/12/16 10/12/16 03:15 03:20 03:25 Temperature Pulse Rate 49 47 47 Respiratory 18 18 18 Rate Blood Pressure (mmHg) O2 Sat by Pulse 100 100 100 Oximetry 10/12/16 10/12/16 10/12/16 03:30 03:35 03:40 Temperature Pulse Rate 47 47 47 Respiratory 19 18 18 Rate Blood Pressure 108/78 (mmHg) O2 Sat by Pulse 99 99 99 Oximetry 10/12/16 10/12/16 10/12/16 03:45 03:50 03:55 Temperature Pulse Rate 47 46 47 Respiratory 19 17 18 Rate Blood Pressure (mmHg) O2 Sat by Pulse 99 99 99 Oximetry 10/12/16 10/12/16 10/12/16 04:00 04:05 04:10 Temperature 97.7 F Pulse Rate 53 49 51 Respiratory 19 18 15 Rate Blood Pressure 128/45 (mmHg) O2 Sat by Pulse 99 99 100 Oximetry 10/12/16 10/12/16 10/12/16 04:15 04:20 04:25 Temperature Pulse Rate 51 50 51 Respiratory 17 18 16 Rate Blood Pressure (mmHg) O2 Sat by Pulse 100 99 99 Oximetry 10/12/16 10/12/16 10/12/16 04:30 04:35 04:40 Temperature Pulse Rate 50 51 50 Respiratory 18 19 18 Rate Blood Pressure 148/48 (mmHg) O2 Sat by Pulse 100 100 100 Oximetry 10/12/16 10/12/16 10/12/16 04:45 04:50 04:55 Temperature Pulse Rate 50 51 50 Respiratory 17 18 17 Rate Blood Pressure (mmHg) O2 Sat by Pulse 100 99 99 Oximetry 10/12/16 10/12/16 10/12/16 05:00 05:05 05:10 Temperature Pulse Rate 50 50 50 Respiratory 19 16 20 Rate Blood Pressure 148/41 (mmHg) O2 Sat by Pulse 100 100 99 Oximetry 10/12/16 10/12/16 10/12/16 05:15 05:20 05:25 Temperature Pulse Rate 50 50 50 Respiratory 19 21 19 Rate Blood Pressure (mmHg) O2 Sat by Pulse 99 99 99 Oximetry 10/12/16 10/12/16 10/12/16 05:30 05:35 05:40 Temperature Pulse Rate 50 50 53 Respiratory 21 19 19 Rate Blood Pressure 141/51 (mmHg) O2 Sat by Pulse 99 99 99 Oximetry 10/12/16 10/12/16 10/12/16 05:45 05:50 05:55 Temperature Pulse Rate 55 57 59 Respiratory 18 17 21 Rate Blood Pressure (mmHg) O2 Sat by Pulse 98 100 100 Oximetry 10/12/16 10/12/16 10/12/16 06:00 06:05 06:10 Temperature Pulse Rate 59 55 103 Respiratory 17 18 19 Rate Blood Pressure 163/59 (mmHg) O2 Sat by Pulse 99 100 98 Oximetry 10/12/16 10/12/16 10/12/16 06:15 06:20 06:25 Temperature Pulse Rate 56 56 56 Respiratory 20 19 20 Rate Blood Pressure (mmHg) O2 Sat by Pulse 100 100 100 Oximetry 10/12/16 10/12/16 10/12/16 06:30 06:35 06:40 Temperature Pulse Rate 56 50 47 Respiratory 20 20 18 Rate Blood Pressure 153/38 (mmHg) O2 Sat by Pulse 100 100 100 Oximetry 10/12/16 10/12/16 10/12/16 06:45 06:50 06:55 Temperature Pulse Rate 51 52 50 Respiratory 19 16 20 Rate Blood Pressure (mmHg) O2 Sat by Pulse 100 100 99 Oximetry 10/12/16 10/12/16 10/12/16 07:00 07:05 07:10 Temperature Pulse Rate 50 49 49 Respiratory 18 19 18 Rate Blood Pressure 144/43 (mmHg) O2 Sat by Pulse 99 99 99 Oximetry 10/12/16 10/12/16 10/12/16 07:15 07:20 07:25 Temperature Pulse Rate 48 48 50 Respiratory 18 19 19 Rate Blood Pressure (mmHg) O2 Sat by Pulse 100 99 99 Oximetry 10/12/16 10/12/16 10/12/16 07:30 07:35 07:40 Temperature Pulse Rate 49 50 51 Respiratory 21 19 19 Rate Blood Pressure 124/45 (mmHg) O2 Sat by Pulse 99 99 99 Oximetry 10/12/16 10/12/16 10/12/16 07:45 07:48 07:49 Temperature 97.1 F Pulse Rate 49 Respiratory 19 18 Rate Blood Pressure (mmHg) O2 Sat by Pulse 100 Oximetry 10/12/16 10/12/16 10/12/16 07:50 07:55 08:00 Temperature Pulse Rate 48 49 49 Respiratory 18 17 19 Rate Blood Pressure 141/42 (mmHg) O2 Sat by Pulse 99 100 100 Oximetry 10/12/16 10/12/16 10/12/16 08:05 08:10 08:15 Temperature Pulse Rate 48 48 51 Respiratory 19 19 21 Rate Blood Pressure (mmHg) O2 Sat by Pulse 100 100 100 Oximetry 10/12/16 10/12/16 10/12/16 08:20 08:25 08:30 Temperature Pulse Rate 53 55 52 Respiratory 16 19 20 Rate Blood Pressure 163/54 (mmHg) O2 Sat by Pulse 100 99 100 Oximetry 10/12/16 10/12/16 10/12/16 08:35 08:40 08:45 Temperature Pulse Rate 52 53 53 Respiratory 19 16 21 Rate Blood Pressure (mmHg) O2 Sat by Pulse 100 99 100 Oximetry 10/12/16 10/12/16 10/12/16 08:50 08:55 09:00 Temperature Pulse Rate 52 51 Respiratory 19 19 18 Rate Blood Pressure (mmHg) O2 Sat by Pulse 100 100 Oximetry 10/12/16 10/12/16 10/12/16 09:37 09:40 09:45 Temperature Pulse Rate 52 53 53 Respiratory 23 20 20 Rate Blood Pressure (mmHg) O2 Sat by Pulse 100 100 100 Oximetry 10/12/16 10/12/16 10/12/16 09:50 09:55 10:00 Temperature Pulse Rate 53 52 54 Respiratory 19 18 19 Rate Blood Pressure (mmHg) O2 Sat by Pulse 100 100 100 Oximetry 10/12/16 10/12/16 10/12/16 10:05 10:10 10:15 Temperature Pulse Rate 53 58 59 Respiratory 21 20 18 Rate Blood Pressure (mmHg) O2 Sat by Pulse 100 100 100 Oximetry 10/12/16 10/12/16 10/12/16 10:20 10:25 10:30 Temperature Pulse Rate 58 58 59 Respiratory 20 20 19 Rate Blood Pressure (mmHg) O2 Sat by Pulse 100 100 100 Oximetry 10/12/16 10/12/16 10/12/16 10:35 10:40 10:45 Temperature Pulse Rate 59 57 51 Respiratory 19 18 19 Rate Blood Pressure (mmHg) O2 Sat by Pulse 100 100 100 Oximetry 10/12/16 10/12/16 10/12/16 10:50 10:55 11:00 Temperature Pulse Rate 54 54 57 Respiratory 19 17 20 Rate Blood Pressure (mmHg) O2 Sat by Pulse 100 100 99 Oximetry 10/12/16 10/12/16 10/12/16 11:05 13:00 13:12 Temperature 98.0 F Pulse Rate 53 56 Respiratory 18 19 Rate Blood Pressure (mmHg) O2 Sat by Pulse 100 95 Oximetry 10/12/16 10/12/16 10/12/16 13:15 13:20 13:25 Temperature Pulse Rate 56 53 55 Respiratory 19 19 16 Rate Blood Pressure (mmHg) O2 Sat by Pulse 94 95 97 Oximetry 10/12/16 10/12/16 10/12/16 13:30 13:35 13:40 Temperature Pulse Rate 57 55 57 Respiratory 12 16 17 Rate Blood Pressure (mmHg) O2 Sat by Pulse 99 99 96 Oximetry 10/12/16 10/12/16 10/12/16 13:45 13:50 13:55 Temperature Pulse Rate 51 57 53 Respiratory 17 18 19 Rate Blood Pressure (mmHg) O2 Sat by Pulse 95 96 95 Oximetry 10/12/16 14:00 Temperature Pulse Rate 52 Respiratory 18 Rate Blood Pressure (mmHg) O2 Sat by Pulse 99 Oximetry Oxygen Devices in Use Now: None Appearance: Elderly female sitting up in bed, NAD Eyes: No Scleral Icterus Ears/Nose/Mouth/Throat: Mucous Membranes Moist Respiratory: Symmetrical Chest Expansion and Respiratory Effort, Clear to Auscultation Cardiovascular: NL Sounds; No Murmurs; No JVD, RRR, No Edema Abdominal: NL Sounds; No Tenderness; No Distention Extremities: No Clubbing, Cyanosis Skin: No Rash or Ulcers, No Nodules or Sclerosis Neurological: Alert and Oriented x 3 Result Diagrams: 10/12/16 05:50 10/12/16 05:50 Additional Lab and Data: Lab Results 10/11/16 10/11/16 10/11/16 Range/Units 10:21 10:21 10:21 WBC 5.2 (3.5-10.8) 10^3/ul RBC 3.58 L (4.0-5.4) 10^6/ul Hgb 11.1 L (12.0-16.0) g/dl Hct 34 L (35-47) % MCV 95 (80-97) fL MCH 31 (27-31) pg MCHC 33 (31-36) g/dl RDW 15 (10.5-15) % Plt Count 163 (150-450) 10^3/ul MPV 8 (7.4-10.4) um3 Neut % (Auto) 67.1 (38-83) % Lymph % (Auto) 19.5 L (25-47) % [place] % (Auto) 9.7 H (1-9) % Eos % (Auto) 2.9 (0-6) % Baso % (Auto) 0.8 (0-2) % Absolute Neuts (auto) 3.5 (1.5-7.7) 10^3/ul Absolute Lymphs (auto) 1.0 (1.0-4.8) 10^3/ul Absolute Monos (auto) 0.5 (0-0.8) 10^3/ul Absolute Eos (auto) 0.2 (0-0.6) 10^3/ul Absolute Basos (auto) 0 (0-0.2) 10^3/ul Absolute Nucleated RBC 0 10^3/ul Nucleated RBC % 0.1 INR (Anticoag Therapy) (0.89-1.11) APTT (26.0-36.3) seconds Sodium 138 (133-145) mmol/L Potassium 3.8 (3.5-5.0) mmol/L Chloride 102 (101-111) mmol/L Carbon Dioxide 29 (22-32) mmol/L Anion Gap 7 (2-11) mmol/L BUN 19 (6-24) mg/dL Creatinine 1.41 H (0.51-0.95) mg/dL Est GFR ( Amer) 45.5 (>60) Est GFR (Non-Af Amer) 35.4 (>60) BUN/Creatinine Ratio 13.5 (8-20) Glucose 131 H (70-100) mg/dL Lactic Acid 1.3 (0.5-2.0) mmol/L Calcium 8.9 (8.6-10.3) mg/dL Magnesium 2.0 (1.9-2.7) mg/dL Total Bilirubin 0.50 (0.2-1.0) mg/dL AST 17 (13-39) U/L ALT 8 (7-52) U/L Alkaline Phosphatase 62 (34-104) U/L Total Creatine Kinase 79 (10-223) U/L CK-MB (CK-2) 8.0 H (0.6-6.3) ng/mL Troponin I 0.70 H* (<0.04) ng/mL B-Natriuretic Peptide ( - 100) pg/mL Total Protein 6.7 (6.4-8.9) g/dL Albumin 3.7 (3.2-5.2) g/dL Globulin 3.0 (2-4) g/dL Albumin/Globulin Ratio 1.2 (1-3) TSH 3.31 (0.34-5.60) mcIU/mL Urine Color Urine Appearance Urine pH (5-9) Ur Specific [place] (1.010-1.030) Urine Protein (Negative) Urine Ketones (Negative) Urine Blood (Negative) Urine Nitrate (Negative) Urine Bilirubin (Negative) Urine Urobilinogen (Negative) Ur Leukocyte Esterase (Negative) Urine WBC (Auto) (Absent) Urine RBC (Auto) (Absent) Ur Squamous Epith Cells (Absent) Urine Bacteria (Absent) Urine Glucose (Negative) 10/11/16 10/11/16 10/11/16 Range/Units 10:21 10:21 11:30 WBC (3.5-10.8) 10^3/ul RBC (4.0-5.4) 10^6/ul Hgb (12.0-16.0) g/dl Hct (35-47) % MCV (80-97) fL MCH (27-31) pg MCHC (31-36) g/dl RDW (10.5-15) % Plt Count (150-450) 10^3/ul MPV (7.4-10.4) um3 Neut % (Auto) (38-83) % Lymph % (Auto) (25-47) % [place] % (Auto) (1-9) % Eos % (Auto) (0-6) % Baso % (Auto) (0-2) % Absolute Neuts (auto) (1.5-7.7) 10^3/ul Absolute Lymphs (auto) (1.0-4.8) 10^3/ul Absolute Monos (auto) (0-0.8) 10^3/ul Absolute Eos (auto) (0-0.6) 10^3/ul Absolute Basos (auto) (0-0.2) 10^3/ul Absolute Nucleated RBC 10^3/ul Nucleated RBC % INR (Anticoag Therapy) 2.40 H (0.89-1.11) APTT 35.9 (26.0-36.3) seconds Sodium (133-145) mmol/L Potassium (3.5-5.0) mmol/L Chloride (101-111) mmol/L Carbon Dioxide (22-32) mmol/L Anion Gap (2-11) mmol/L BUN (6-24) mg/dL Creatinine (0.51-0.95) mg/dL Est GFR ( Amer) (>60) Est GFR (Non-Af Amer) (>60) BUN/Creatinine Ratio (8-20) Glucose (70-100) mg/dL Lactic Acid (0.5-2.0) mmol/L Calcium (8.6-10.3) mg/dL Magnesium (1.9-2.7) mg/dL Total Bilirubin (0.2-1.0) mg/dL AST (13-39) U/L ALT (7-52) U/L Alkaline Phosphatase (34-104) U/L Total Creatine Kinase (10-223) U/L CK-MB (CK-2) (0.6-6.3) ng/mL Troponin I (<0.04) ng/mL B-Natriuretic Peptide 709 H ( - 100) pg/mL Total Protein (6.4-8.9) g/dL Albumin (3.2-5.2) g/dL Globulin (2-4) g/dL Albumin/Globulin Ratio (1-3) TSH (0.34-5.60) mcIU/mL Urine Color Straw Urine Appearance Clear Urine pH 7.0 (5-9) Ur Specific [place] 1.004 L (1.010-1.030) Urine Protein Negative (Negative) Urine Ketones Negative (Negative) Urine Blood Negative (Negative) Urine Nitrate Negative (Negative) Urine Bilirubin Negative (Negative) Urine Urobilinogen Negative (Negative) Ur Leukocyte Esterase 3+ H (Negative) Urine WBC (Auto) 1+(6-10/hpf) H (Absent) Urine RBC (Auto) Trace(0-2/hpf) (Absent) Ur Squamous Epith Cells Present H (Absent) Urine Bacteria Absent (Absent) Urine Glucose Negative (Negative) Microbiology and Other Data: Microbiology 10/11/16 14:30 Nasal Screen MRSA (PCR)(NOE) - Final Nasal Mrsa Negative Assess/Plan/Problems-Billing Ms Sherwood is an 86 yo F who has a h/o afib, , HTN, HLD, stage III CKD and ? CAD who presented to the ER with c/o being in afib. - Patient Problems (1) Elevated troponin Current Visit: Yes Status: Acute Code(s): R74.8 - ABNORMAL LEVELS OF OTHER SERUM ENZYMES SNOMED Code(s): 971464265 Comment: Likely demand ischemia secondary to rapid afib. The patient underwent a chemical nuclear stress test today that shows a large infarct with jovanny-infarct ischemia and mildly reduced EF and hypokinesis of the LV. Will continue ASA, statin and Bblocker. The patient's echo shows a reduced EF and significant wall motion abnormalities new since her echo in 08/2016. Await further recommendations from Dr. Richards. The patient has surgery scheduled for next week. Will need to make sure she is optimized prior to her surgery. (2) Atrial fibrillation Current Visit: Yes Status: Acute Onset Date: 01/25/14 Code(s): I48.91 - UNSPECIFIED ATRIAL FIBRILLATION SNOMED Code(s): 62469757 Comment: The patient is s/p cardioversion yesterday. She remains in NSR. Continue coumadin, coreg and amiodarone. (3) HTN (hypertension) Current Visit: Yes Status: Acute Code(s): I10 - ESSENTIAL (PRIMARY) HYPERTENSION SNOMED Code(s): 58293249 Comment: BP is under good control. Continue home medication regimen. (4) HLD (hyperlipidemia) Current Visit: Yes Status: Acute Code(s): E78.5 - HYPERLIPIDEMIA, UNSPECIFIED SNOMED Code(s): 85859369 Comment: Continue statin. (5) DVT prophylaxis Current Visit: Yes Status: Acute Code(s): GQY5844 - SNOMED Code(s): 233842625 Comment: Therapeutic INR (6) Full code status Current Visit: Yes Status: Acute Code(s): Z78.9 - OTHER SPECIFIED HEALTH STATUS SNOMED Code(s): 482914378
[2016-10-12] MEDS: Acetaminophen TAB* 325 MG PO PRN (23:55)
[2016-10-13] MEDS: Acetaminophen TAB* 325 MG PO PRN (06:49)
[2016-10-13] MEDS: Docusate CAP* 100 MG PO SCH ×3 (08:07→21:42)
[2016-10-13] MEDS: Ferrous Sulfate TAB* 325 MG PO SCH (08:07)
[2016-10-13] MEDS: Atorvastatin* 20 MG TAB PO SCH (08:07)
[2016-10-13] MEDS: Potassium Chlor TAB* 10 MEQ TAB.ER PO SCH (08:07)
[2016-10-13] MEDS: Folic Acid TAB* 1 MG PO SCH (08:07)
[2016-10-13] MEDS: Aspirin EC Low Dose* 81 MG TAB.EC PO SCH (08:07)
[2016-10-13] MEDS: Furosemide TAB* 40 MG PO SCH (08:07)
[2016-10-13] MEDS ORDERED: Carvedilol TAB* 3.125 MG PO SCH (09:00)
[2016-10-13] MEDS ORDERED: Potassium Chloride LIQUID* 20 MEQ PACKET PO ONE (10:13)
[2016-10-13] MEDS ORDERED: amLODIPine TAB* 5 MG PO ONE (10:23)
[2016-10-13 12:17] LABS: Calcium 8.8 mg/dL (8.6-10.3); EGFR African American 49.5 (>60); EGFR Non-African American 38.5 (>60); Potassium 4.9 mmol/L (3.5-5.0)
[2016-10-13 12:26] LABS: Troponin I 1.55 ng/mL (<0.04)
--- NOTE | 2016-10-13 14:03 | PN ---
Subjective Date of Service: 10/13/16 Interval History: Ms. Sherwood states that she is feeling well. She specifically denies chest pain , SOB, nausea, or abdominal pain. Objective Active Medications: Acetaminophen (Tylenol Tab*) 650 mg PO Q4H PRN Amiodarone HCl (Cordarone Tab*) 200 mg PO DAILY [facility] Aspirin (Aspirin Ec Low Dose*) 81 mg PO DAILY [facility] Atorvastatin Calcium (Lipitor*) 20 mg PO DAILY [facility] Carvedilol (Coreg Tab*) 3.125 mg PO BID [facility] Docusate Sodium (Colace Cap*) 100 mg PO TID [facility] Ferrous Sulfate (Ferrous Sulfate Tab*) 325 mg PO QAM [facility] Folic Acid (Folvite Tab*) 1 mg PO QAM [facility] Furosemide (Lasix Tab*) 40 mg PO QAM [facility] Ondansetron HCl (Zofran Inj*) 4 mg IV Q6H PRN Potassium Chloride (Klor Con Er Tab*) 10 meq PO DAILY [facility] Vital Signs 10/12/16 10/12/16 10/12/16 19:29 20:00 23:46 Temperature 97.2 F 98.3 F Pulse Rate 65 63 Respiratory 16 16 18 Rate Blood Pressure 155/70 150/65 (mmHg) O2 Sat by Pulse 96 99 Oximetry 10/13/16 10/13/16 10/13/16 03:27 07:30 08:00 Temperature 97.6 F 98.4 F Pulse Rate 57 57 Respiratory 20 20 18 Rate Blood Pressure 148/55 155/66 (mmHg) O2 Sat by Pulse 98 97 Oximetry 10/13/16 10/13/16 08:13 11:44 Temperature Pulse Rate 64 64 Respiratory 24 Rate Blood Pressure 173/62 (mmHg) O2 Sat by Pulse 100 Oximetry Oxygen Devices in Use Now: None Appearance: Female sitting up in chair in NAD Eyes: No Scleral Icterus Ears/Nose/Mouth/Throat: Mucous Membranes Moist Neck: Trachea Midline Respiratory: Symmetrical Chest Expansion and Respiratory Effort, Clear to Auscultation Cardiovascular: NL Sounds; No Murmurs; No JVD, No Edema Abdominal: NL Sounds; No Tenderness; No Distention Lymphatic: No Cervical Adenopathy Extremities: No Edema Skin: No Rash or Ulcers Neurological: Alert and Oriented x 3, NL Muscle Strength and Tone Nutrition: Taking PO's Result Diagrams: 10/12/16 05:50 10/13/16 11:54 Additional Lab and Data: Lab Results 10/11/16 10/11/16 10/11/16 Range/Units 10:21 10:21 10:21 WBC 5.2 (3.5-10.8) 10^3/ul RBC 3.58 L (4.0-5.4) 10^6/ul Hgb 11.1 L (12.0-16.0) g/dl Hct 34 L (35-47) % MCV 95 (80-97) fL MCH 31 (27-31) pg MCHC 33 (31-36) g/dl RDW 15 (10.5-15) % Plt Count 163 (150-450) 10^3/ul MPV 8 (7.4-10.4) um3 Neut % (Auto) 67.1 (38-83) % Lymph % (Auto) 19.5 L (25-47) % [place] % (Auto) 9.7 H (1-9) % Eos % (Auto) 2.9 (0-6) % Baso % (Auto) 0.8 (0-2) % Absolute Neuts (auto) 3.5 (1.5-7.7) 10^3/ul Absolute Lymphs (auto) 1.0 (1.0-4.8) 10^3/ul Absolute Monos (auto) 0.5 (0-0.8) 10^3/ul Absolute Eos (auto) 0.2 (0-0.6) 10^3/ul Absolute Basos (auto) 0 (0-0.2) 10^3/ul Absolute Nucleated RBC 0 10^3/ul Nucleated RBC % 0.1 INR (Anticoag Therapy) (0.89-1.11) APTT (26.0-36.3) seconds Sodium 138 (133-145) mmol/L Potassium 3.8 (3.5-5.0) mmol/L Chloride 102 (101-111) mmol/L Carbon Dioxide 29 (22-32) mmol/L Anion Gap 7 (2-11) mmol/L BUN 19 (6-24) mg/dL Creatinine 1.41 H (0.51-0.95) mg/dL Est GFR ( Amer) 45.5 (>60) Est GFR (Non-Af Amer) 35.4 (>60) BUN/Creatinine Ratio 13.5 (8-20) Glucose 131 H (70-100) mg/dL Lactic Acid 1.3 (0.5-2.0) mmol/L Calcium 8.9 (8.6-10.3) mg/dL Magnesium 2.0 (1.9-2.7) mg/dL Total Bilirubin 0.50 (0.2-1.0) mg/dL AST 17 (13-39) U/L ALT 8 (7-52) U/L Alkaline Phosphatase 62 (34-104) U/L Total Creatine Kinase 79 (10-223) U/L CK-MB (CK-2) 8.0 H (0.6-6.3) ng/mL Troponin I 0.70 H* (<0.04) ng/mL B-Natriuretic Peptide ( - 100) pg/mL Total Protein 6.7 (6.4-8.9) g/dL Albumin 3.7 (3.2-5.2) g/dL Globulin 3.0 (2-4) g/dL Albumin/Globulin Ratio 1.2 (1-3) TSH 3.31 (0.34-5.60) mcIU/mL Urine Color Urine Appearance Urine pH (5-9) Ur Specific [place] (1.010-1.030) Urine Protein (Negative) Urine Ketones (Negative) Urine Blood (Negative) Urine Nitrate (Negative) Urine Bilirubin (Negative) Urine Urobilinogen (Negative) Ur Leukocyte Esterase (Negative) Urine WBC (Auto) (Absent) Urine RBC (Auto) (Absent) Ur Squamous Epith Cells (Absent) Urine Bacteria (Absent) Urine Glucose (Negative) 10/11/16 10/11/16 10/11/16 Range/Units 10:21 10:21 11:30 WBC (3.5-10.8) 10^3/ul RBC (4.0-5.4) 10^6/ul Hgb (12.0-16.0) g/dl Hct (35-47) % MCV (80-97) fL MCH (27-31) pg MCHC (31-36) g/dl RDW (10.5-15) % Plt Count (150-450) 10^3/ul MPV (7.4-10.4) um3 Neut % (Auto) (38-83) % Lymph % (Auto) (25-47) % [place] % (Auto) (1-9) % Eos % (Auto) (0-6) % Baso % (Auto) (0-2) % Absolute Neuts (auto) (1.5-7.7) 10^3/ul Absolute Lymphs (auto) (1.0-4.8) 10^3/ul Absolute Monos (auto) (0-0.8) 10^3/ul Absolute Eos (auto) (0-0.6) 10^3/ul Absolute Basos (auto) (0-0.2) 10^3/ul Absolute Nucleated RBC 10^3/ul Nucleated RBC % INR (Anticoag Therapy) 2.40 H (0.89-1.11) APTT 35.9 (26.0-36.3) seconds Sodium (133-145) mmol/L Potassium (3.5-5.0) mmol/L Chloride (101-111) mmol/L Carbon Dioxide (22-32) mmol/L Anion Gap (2-11) mmol/L BUN (6-24) mg/dL Creatinine (0.51-0.95) mg/dL Est GFR ( Amer) (>60) Est GFR (Non-Af Amer) (>60) BUN/Creatinine Ratio (8-20) Glucose (70-100) mg/dL Lactic Acid (0.5-2.0) mmol/L Calcium (8.6-10.3) mg/dL Magnesium (1.9-2.7) mg/dL Total Bilirubin (0.2-1.0) mg/dL AST (13-39) U/L ALT (7-52) U/L Alkaline Phosphatase (34-104) U/L Total Creatine Kinase (10-223) U/L CK-MB (CK-2) (0.6-6.3) ng/mL Troponin I (<0.04) ng/mL B-Natriuretic Peptide 709 H ( - 100) pg/mL Total Protein (6.4-8.9) g/dL Albumin (3.2-5.2) g/dL Globulin (2-4) g/dL Albumin/Globulin Ratio (1-3) TSH (0.34-5.60) mcIU/mL Urine Color Straw Urine Appearance Clear Urine pH 7.0 (5-9) Ur Specific Jeremiah 1.004 L (1.010-1.030) Urine Protein Negative (Negative) Urine Ketones Negative (Negative) Urine Blood Negative (Negative) Urine Nitrate Negative (Negative) Urine Bilirubin Negative (Negative) Urine Urobilinogen Negative (Negative) Ur Leukocyte Esterase 3+ H (Negative) Urine WBC (Auto) 1+(6-10/hpf) H (Absent) Urine RBC (Auto) Trace(0-2/hpf) (Absent) Ur Squamous Epith Cells Present H (Absent) Urine Bacteria Absent (Absent) Urine Glucose Negative (Negative) Microbiology and Other Data: Microbiology 10/11/16 14:30 Nasal Screen MRSA (PCR)(NOE) - Final Nasal Mrsa Negative Assess/Plan/Problems-Billing Ms Sherwood is an 86 yo F who has a h/o afib, , HTN, HLD, stage III CKD and ? CAD who presented to the ER with c/o being in afib. - Patient Problems (1) Atrial fibrillation Comment: - The patient is s/p cardioversion 10/11/16. She remains in NSR. 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 - Continue coreg and amiodarone. - Hold coumadin for planned cath, give vitamin K now. Recheck INR in AM. (2) Elevated troponin Comment: - Trop peaked at 2.58. - Likely demand ischemia secondary to rapid afib. Chemical nuclear stress showed a large infarct with jovanny-infarct ischemia and mildly reduced EF and hypokinesis of the LV. Echo shows a reduced EF and significant wall motion abnormalities new since her echo in 08/2016. - Plan for cardiac cath on Saturday. - Will continue aspirin, atorvastatin and beta emmett. -The patient has surgery scheduled for next week for uterine mass. Will need to make sure she is optimized if possible. (3) HLD (hyperlipidemia) Comment: - Continue atorvastatin. (4) HTN (hypertension) Comment: - SBP 100-170s. - Continue carvediolol and furosemide. Amlodipine added per Dr. Richards. (5) DVT prophylaxis Comment: - Therapeutic INR on coumadin. (6) Full code status
[2016-10-13] MEDS ORDERED: Phytonadione INJ (Adult)* 10 MG/ML 1 ML AMP SUBCUT ONE (15:37)
[2016-10-13] MEDS ORDERED: Phytonadione Oral Solution* 5 MG/25 ML UDC PO ONE (16:12)
[2016-10-13] MEDS: Carvedilol TAB* 3.125 MG PO SCH (21:51)
[2016-10-14 05:40] LABS: Hematocrit 29 % (35-47); Hemoglobin 9.9 g/dl (12.0-16.0); Mean Corpuscular HGB Conc 34 g/dl (31-36); Mean Corpuscular Hemoglobin 32 pg (27-31); Mean Corpuscular Volume 94 fL (80-97); Mean Platelet Volume 8 um3 (7.4-10.4); Red Blood Count 3.12 10^6/ul (4.0-5.4); Red Cell Distribution Width 14 % (10.5-15); White Blood Count 5.5 10^3/ul (3.5-10.8)
[2016-10-14 05:53] LABS: BUN/Creatinine Ratio 14.2 (8-20); Calcium 8.5 mg/dL (8.6-10.3); EGFR African American 48.2 (>60); EGFR Non-African American 37.5 (>60)
[2016-10-14] MEDS: Folic Acid TAB* 1 MG PO SCH (08:17)
[2016-10-14] MEDS: Furosemide TAB* 40 MG PO SCH (08:17)
[2016-10-14] MEDS: Aspirin EC Low Dose* 81 MG TAB.EC PO SCH (08:17)
[2016-10-14] MEDS: Ferrous Sulfate TAB* 325 MG PO SCH (08:17)
[2016-10-14] MEDS: Potassium Chlor TAB* 10 MEQ TAB.ER PO SCH (08:17)
[2016-10-14] MEDS: Atorvastatin* 20 MG TAB PO SCH (08:17)
[2016-10-14] MEDS: Docusate CAP* 100 MG PO SCH ×3 (08:17→20:57)
[2016-10-14] MEDS: Carvedilol TAB* 3.125 MG PO SCH ×2 (08:17→20:57)
[2016-10-14] MEDS ORDERED: Phytonadione Oral Solution* 5 MG/25 ML UDC PO ONE (08:44)
--- NOTE | 2016-10-14 18:07 | PN ---
Subjective Date of Service: 10/14/16 Interval History: seen with daughter at bedside has no complaints and no questions today Objective Active Medications: Acetaminophen (Tylenol Tab*) 650 mg PO Q4H PRN PRN Reason: FEVER/PAIN Last Admin: 10/13/16 06:49 Dose: 650 mg Amiodarone HCl (Cordarone Tab*) 200 mg PO DAILY [facility] Aspirin (Aspirin Ec Low Dose*) 81 mg PO DAILY [facility] Last Admin: 10/14/16 08:17 Dose: 81 mg Atorvastatin Calcium (Lipitor*) 20 mg PO DAILY [facility] Last Admin: 10/14/16 08:17 Dose: 20 mg Carvedilol (Coreg Tab*) 3.125 mg PO BID [facility] Last Admin: 10/14/16 08:17 Dose: 3.125 mg Docusate Sodium (Colace Cap*) 100 mg PO TID [facility] Last Admin: 10/14/16 13:16 Dose: 100 mg Ferrous Sulfate (Ferrous Sulfate Tab*) 325 mg PO QAM [facility] Last Admin: 10/14/16 08:17 Dose: 325 mg Folic Acid (Folvite Tab*) 1 mg PO QAM [facility] Last Admin: 10/14/16 08:17 Dose: 1 mg Furosemide (Lasix Tab*) 40 mg PO QAM [facility] Last Admin: 10/14/16 08:17 Dose: 40 mg Ondansetron HCl (Zofran Inj*) 4 mg IV Q6H PRN PRN Reason: NAUSEA Potassium Chloride (Klor Con Er Tab*) 10 meq PO DAILY [facility] Last Admin: 10/14/16 08:17 Dose: 10 meq Vital Signs 10/13/16 10/13/16 10/14/16 19:25 20:00 00:02 Temperature 98.2 F 97.8 F Pulse Rate 62 59 Respiratory 20 16 16 Rate Blood Pressure 120/52 122/61 (mmHg) O2 Sat by Pulse 99 96 Oximetry 10/14/16 10/14/16 10/14/16 01:24 04:17 07:40 Temperature 97.8 F 98.5 F Pulse Rate 57 59 Respiratory 16 18 Rate Blood Pressure 130/54 140/61 (mmHg) O2 Sat by Pulse 99 95 97 Oximetry 10/14/16 10/14/16 10/14/16 08:00 11:33 15:42 Temperature 98.7 F 98.9 F Pulse Rate 57 59 Respiratory 16 18 16 Rate Blood Pressure 111/53 116/58 (mmHg) O2 Sat by Pulse 96 96 Oximetry Oxygen Devices in Use Now: None Appearance: NAD Eyes: No Scleral Icterus, PERRLA Ears/Nose/Mouth/Throat: NL Teeth, Lips, Gums, Clear Oropharnyx, Mucous Membranes Moist Neck: NL Appearance and Movements; NL JVP, Trachea Midline Respiratory: Symmetrical Chest Expansion and Respiratory Effort, Clear to Auscultation Cardiovascular: RRR, - - 2/6 NICOLE RUSB Abdominal: NL Sounds; No Tenderness; No Distention, No Hepatosplenomegaly Lymphatic: No Cervical Adenopathy Extremities: - - 1+ le edema Neurological: Alert and Oriented x 3 Result Diagrams: 10/14/16 05:23 10/14/16 05:23 Additional Lab and Data: Lab Results 10/11/16 10/11/16 10/11/16 Range/Units 10:21 10:21 10:21 WBC 5.2 (3.5-10.8) 10^3/ul RBC 3.58 L (4.0-5.4) 10^6/ul Hgb 11.1 L (12.0-16.0) g/dl Hct 34 L (35-47) % MCV 95 (80-97) fL MCH 31 (27-31) pg MCHC 33 (31-36) g/dl RDW 15 (10.5-15) % Plt Count 163 (150-450) 10^3/ul MPV 8 (7.4-10.4) um3 Neut % (Auto) 67.1 (38-83) % Lymph % (Auto) 19.5 L (25-47) % [place] % (Auto) 9.7 H (1-9) % Eos % (Auto) 2.9 (0-6) % Baso % (Auto) 0.8 (0-2) % Absolute Neuts (auto) 3.5 (1.5-7.7) 10^3/ul Absolute Lymphs (auto) 1.0 (1.0-4.8) 10^3/ul Absolute Monos (auto) 0.5 (0-0.8) 10^3/ul Absolute Eos (auto) 0.2 (0-0.6) 10^3/ul Absolute Basos (auto) 0 (0-0.2) 10^3/ul Absolute Nucleated RBC 0 10^3/ul Nucleated RBC % 0.1 INR (Anticoag Therapy) (0.89-1.11) APTT (26.0-36.3) seconds Sodium 138 (133-145) mmol/L Potassium 3.8 (3.5-5.0) mmol/L Chloride 102 (101-111) mmol/L Carbon Dioxide 29 (22-32) mmol/L Anion Gap 7 (2-11) mmol/L BUN 19 (6-24) mg/dL Creatinine 1.41 H (0.51-0.95) mg/dL Est GFR ( Amer) 45.5 (>60) Est GFR (Non-Af Amer) 35.4 (>60) BUN/Creatinine Ratio 13.5 (8-20) Glucose 131 H (70-100) mg/dL Lactic Acid 1.3 (0.5-2.0) mmol/L Calcium 8.9 (8.6-10.3) mg/dL Magnesium 2.0 (1.9-2.7) mg/dL Total Bilirubin 0.50 (0.2-1.0) mg/dL AST 17 (13-39) U/L ALT 8 (7-52) U/L Alkaline Phosphatase 62 (34-104) U/L Total Creatine Kinase 79 (10-223) U/L CK-MB (CK-2) 8.0 H (0.6-6.3) ng/mL Troponin I 0.70 H* (<0.04) ng/mL B-Natriuretic Peptide ( - 100) pg/mL Total Protein 6.7 (6.4-8.9) g/dL Albumin 3.7 (3.2-5.2) g/dL Globulin 3.0 (2-4) g/dL Albumin/Globulin Ratio 1.2 (1-3) TSH 3.31 (0.34-5.60) mcIU/mL Urine Color Urine Appearance Urine pH (5-9) Ur Specific [place] (1.010-1.030) Urine Protein (Negative) Urine Ketones (Negative) Urine Blood (Negative) Urine Nitrate (Negative) Urine Bilirubin (Negative) Urine Urobilinogen (Negative) Ur Leukocyte Esterase (Negative) Urine WBC (Auto) (Absent) Urine RBC (Auto) (Absent) Ur Squamous Epith Cells (Absent) Urine Bacteria (Absent) Urine Glucose (Negative) 10/11/16 10/11/16 10/11/16 Range/Units 10:21 10:21 11:30 WBC (3.5-10.8) 10^3/ul RBC (4.0-5.4) 10^6/ul Hgb (12.0-16.0) g/dl Hct (35-47) % MCV (80-97) fL MCH (27-31) pg MCHC (31-36) g/dl RDW (10.5-15) % Plt Count (150-450) 10^3/ul MPV (7.4-10.4) um3 Neut % (Auto) (38-83) % Lymph % (Auto) (25-47) % [place] % (Auto) (1-9) % Eos % (Auto) (0-6) % Baso % (Auto) (0-2) % Absolute Neuts (auto) (1.5-7.7) 10^3/ul Absolute Lymphs (auto) (1.0-4.8) 10^3/ul Absolute Monos (auto) (0-0.8) 10^3/ul Absolute Eos (auto) (0-0.6) 10^3/ul Absolute Basos (auto) (0-0.2) 10^3/ul Absolute Nucleated RBC 10^3/ul Nucleated RBC % INR (Anticoag Therapy) 2.40 H (0.89-1.11) APTT 35.9 (26.0-36.3) seconds Sodium (133-145) mmol/L Potassium (3.5-5.0) mmol/L Chloride (101-111) mmol/L Carbon Dioxide (22-32) mmol/L Anion Gap (2-11) mmol/L BUN (6-24) mg/dL Creatinine (0.51-0.95) mg/dL Est GFR ( Amer) (>60) Est GFR (Non-Af Amer) (>60) BUN/Creatinine Ratio (8-20) Glucose (70-100) mg/dL Lactic Acid (0.5-2.0) mmol/L Calcium (8.6-10.3) mg/dL Magnesium (1.9-2.7) mg/dL Total Bilirubin (0.2-1.0) mg/dL AST (13-39) U/L ALT (7-52) U/L Alkaline Phosphatase (34-104) U/L Total Creatine Kinase (10-223) U/L CK-MB (CK-2) (0.6-6.3) ng/mL Troponin I (<0.04) ng/mL B-Natriuretic Peptide 709 H ( - 100) pg/mL Total Protein (6.4-8.9) g/dL Albumin (3.2-5.2) g/dL Globulin (2-4) g/dL Albumin/Globulin Ratio (1-3) TSH (0.34-5.60) mcIU/mL Urine Color Straw Urine Appearance Clear Urine pH 7.0 (5-9) Ur Specific [place] 1.004 L (1.010-1.030) Urine Protein Negative (Negative) Urine Ketones Negative (Negative) Urine Blood Negative (Negative) Urine Nitrate Negative (Negative) Urine Bilirubin Negative (Negative) Urine Urobilinogen Negative (Negative) Ur Leukocyte Esterase 3+ H (Negative) Urine WBC (Auto) 1+(6-10/hpf) H (Absent) Urine RBC (Auto) Trace(0-2/hpf) (Absent) Ur Squamous Epith Cells Present H (Absent) Urine Bacteria Absent (Absent) Urine Glucose Negative (Negative) Microbiology and Other Data: Microbiology 10/11/16 14:30 Nasal Screen MRSA (PCR)(NOE) - Final Nasal Mrsa Negative Assess/Plan/Problems-Billing Ms Sherwood is an 86 yo F who has a h/o afib, , HTN, HLD, stage III CKD and ? CAD who presented to the ER with c/o being in afib. - Patient Problems (1) Atrial fibrillation Comment: cardioversion 10/11/16. 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 c/w coreg and amiodarone. hold coumadin for planned cath, give vitamin K now and recheck this evening (2) Elevated troponin SNOMED Code(s): 708137242 Comment: Trop peaked at 2.58. Chemical nuclear stress showed a large infarct with jovanny-infarct ischemia and mildly reduced EF and hypokinesis of the LV. Echo shows a reduced EF and significant wall motion abnormalities new since her echo in 08/2016. - Plan for cardiac cath on Saturday. - Will continue aspirin, atorvastatin and beta emmett. -The patient has surgery scheduled for next week for uterine mass. Will need to make sure she is optimized if possible but a stent may delay possible surgery (3) HLD (hyperlipidemia) Current Visit: Yes Status: Acute Code(s): E78.5 - HYPERLIPIDEMIA, UNSPECIFIED SNOMED Code(s): 32201625 Comment: - Continue atorvastatin. (4) HTN (hypertension) Current Visit: Yes Status: Acute Code(s): I10 - ESSENTIAL (PRIMARY) HYPERTENSION SNOMED Code(s): 05993869 Comment: - Continue carvediolol and furosemide and Amlodipine (5) DVT prophylaxis Comment: - Therapeutic INR on coumadin.
[2016-10-15 05:53] LABS: Hematocrit 29 % (35-47); Hemoglobin 9.7 g/dl (12.0-16.0); Mean Corpuscular HGB Conc 34 g/dl (31-36); Mean Corpuscular Hemoglobin 32 pg (27-31); Mean Corpuscular Volume 94 fL (80-97); Mean Platelet Volume 8 um3 (7.4-10.4); Red Blood Count 3.07 10^6/ul (4.0-5.4); Red Cell Distribution Width 14 % (10.5-15); White Blood Count 5.2 10^3/ul (3.5-10.8)
[2016-10-15 06:03] LABS: BUN/Creatinine Ratio 15.8 (8-20); Calcium 8.3 mg/dL (8.6-10.3); EGFR African American 48.6 (>60); EGFR Non-African American 37.8 (>60); Potassium 4.1 mmol/L (3.5-5.0)
[2016-10-15 06:13] LABS: Troponin I 0.39 ng/mL (<0.04)
[2016-10-15] MEDS: Atorvastatin* 20 MG TAB PO SCH (09:07)
[2016-10-15] MEDS: Carvedilol TAB* 3.125 MG PO SCH ×2 (09:07→20:12)
[2016-10-15] MEDS: Aspirin EC Low Dose* 81 MG TAB.EC PO SCH (09:07)
[2016-10-15] MEDS: Ferrous Sulfate TAB* 325 MG PO SCH (11:14)
[2016-10-15] MEDS: Docusate CAP* 100 MG PO SCH ×3 (11:14→20:12)
[2016-10-15] MEDS: Furosemide TAB* 40 MG PO SCH (11:15)
[2016-10-15] MEDS: Folic Acid TAB* 1 MG PO SCH (11:15)
[2016-10-15] MEDS: Potassium Chlor TAB* 10 MEQ TAB.ER PO SCH (11:15)
[2016-10-15] MEDS ORDERED: NS 0.9% 1000 ML* 1,000 ML IV SCH ×2 (12:00→14:15)
[2016-10-15] MEDS ORDERED: fentaNYL* 50 MCG/ML 2 ML VIAL (100 MCG VIAL) ONE (12:37)
[2016-10-15] MEDS ORDERED: Heparin 2 UNITS/ML IVPREMIX* 2,000 ML IV ONE (12:37)
[2016-10-15] MEDS ORDERED: Heparin(*) 1000 UNIT/ML 10 ML VIAL CATH LAB IV ONE (12:37)
[2016-10-15] MEDS ORDERED: Midazolam* 1 MG/ML 5 ML VIAL (5 MG) ONE (12:37)
[2016-10-15] MEDS ORDERED: nitroGLYCERIN DRIP* 250 ML ONE (12:37)
[2016-10-15] MEDS ORDERED: VERAPAMIL 2.5 MG/ML 4 ML VIAL ONE (12:37)
[2016-10-15] MEDS ORDERED: Lidocaine 1% INJ* 10 MG/ML 30 ML SDV ONE (12:38)
[2016-10-15] MEDS ORDERED: Iodixanol* (CONTRAST) 320 MG/ML 100 ML SDV ONE ×2 (12:38→13:39)
[2016-10-15] MEDS ORDERED: Ticagrelor* 90 MG TAB PO ONE (13:23)
[2016-10-15] MEDS ORDERED: hydrALAZINE IV* 20 MG/ML VIAL IV SLOW PU ONE (15:38)
[2016-10-15] MEDS: Nitroglycerin TAB 0.4 MG* 0.4 MG TAB SL PRN ×2 (16:10→16:22)
--- NOTE | 2016-10-15 16:51 | PN ---
Subjective Date of Service: 10/15/16 Interval History: Seen this AM with daughter at bedside prior to PCI This AM no complaints. No CP/SOB Objective Active Medications: Acetaminophen (Tylenol Tab*) 650 mg PO Q4H PRN PRN Reason: FEVER/PAIN Last Admin: 10/13/16 06:49 Dose: 650 mg Amiodarone HCl (Cordarone Tab*) 200 mg PO DAILY [facility] Aspirin (Aspirin Ec Low Dose*) 81 mg PO DAILY [facility] Last Admin: 10/15/16 09:07 Dose: 81 mg Atorvastatin Calcium (Lipitor*) 80 mg PO DAILY [facility] Carvedilol (Coreg Tab*) 3.125 mg PO BID [facility] Last Admin: 10/15/16 09:07 Dose: 3.125 mg Clopidogrel Bisulfate (Plavix Tab*) 300 mg PO ONCE ONE Stop: 10/15/16 17:17 Clopidogrel Bisulfate (Plavix Tab*) 75 mg PO DAILY [facility] Docusate Sodium (Colace Cap*) 100 mg PO TID [facility] Last Admin: 10/15/16 14:47 Dose: Not Given Ferrous Sulfate (Ferrous Sulfate Tab*) 325 mg PO QAM [facility] Last Admin: 10/15/16 11:14 Dose: Not Given Folic Acid (Folvite Tab*) 1 mg PO QAM [facility] Last Admin: 10/15/16 11:15 Dose: Not Given Furosemide (Lasix Tab*) 40 mg PO QAM [facility] Last Admin: 10/15/16 11:15 Dose: Not Given Sodium Chloride (Ns 0.9% 1000 Ml*) 1,000 mls @ 100 mls/hr IV .per rate [facility] Stop: 10/15/16 20:00 Nitroglycerin (Nitroglycerin Tab 0.4 Mg*) 0.4 mg SL Q5M PRN PRN Reason: ANGINA Last Admin: 10/15/16 16:22 Dose: 0.4 mg Ondansetron HCl (Zofran Inj*) 4 mg IV Q6H PRN PRN Reason: NAUSEA Potassium Chloride (Klor Con Er Tab*) 10 meq PO DAILY [facility] Last Admin: 10/15/16 11:15 Dose: Not Given Vital Signs 10/14/16 10/14/16 10/15/16 19:30 20:00 00:01 Temperature 98.6 F 98.6 F Pulse Rate 66 66 Respiratory 16 18 16 Rate Blood Pressure 141/62 141/67 (mmHg) O2 Sat by Pulse 98 96 Oximetry 10/15/16 10/15/16 10/15/16 04:07 08:00 09:06 Temperature 98.3 F Pulse Rate 62 Respiratory 16 20 Rate Blood Pressure 144/66 162/88 (mmHg) O2 Sat by Pulse 95 Oximetry 10/15/16 10/15/16 10/15/16 12:17 14:18 14:19 Temperature 98.5 F Pulse Rate 62 Respiratory 20 20 Rate Blood Pressure 155/58 177/59 (mmHg) O2 Sat by Pulse Oximetry 10/15/16 10/15/16 10/15/16 14:30 14:45 15:00 Temperature 97.8 F Pulse Rate 61 59 58 Respiratory 19 20 16 Rate Blood Pressure 188/62 186/55 178/61 (mmHg) O2 Sat by Pulse 100 100 100 Oximetry 10/15/16 10/15/16 10/15/16 15:15 15:30 15:45 Temperature Pulse Rate 58 61 60 Respiratory 21 16 16 Rate Blood Pressure 188/61 194/67 192/64 (mmHg) O2 Sat by Pulse 100 100 100 Oximetry 10/15/16 10/15/16 10/15/16 16:00 16:15 16:30 Temperature 98.0 F Pulse Rate 60 64 69 Respiratory 17 17 20 Rate Blood Pressure 185/58 174/64 127/48 (mmHg) O2 Sat by Pulse 100 98 97 Oximetry Oxygen Devices in Use Now: None Appearance: obese, NAD Eyes: No Scleral Icterus, PERRLA Ears/Nose/Mouth/Throat: Mucous Membranes Moist Neck: NL Appearance and Movements; NL JVP, Trachea Midline Respiratory: Symmetrical Chest Expansion and Respiratory Effort, Clear to Auscultation Cardiovascular: RRR, - - 2/6 NICOLE Abdominal: NL Sounds; No Tenderness; No Distention, No Hepatosplenomegaly Lymphatic: No Cervical Adenopathy Extremities: - - trace to 1+ LE edema Skin: No Rash or Ulcers Neurological: Alert and Oriented x 3 Result Diagrams: 10/15/16 05:30 10/15/16 05:30 Additional Lab and Data: Lab Results 10/11/16 10/11/16 10/11/16 Range/Units 10:21 10:21 10:21 WBC 5.2 (3.5-10.8) 10^3/ul RBC 3.58 L (4.0-5.4) 10^6/ul Hgb 11.1 L (12.0-16.0) g/dl Hct 34 L (35-47) % MCV 95 (80-97) fL MCH 31 (27-31) pg MCHC 33 (31-36) g/dl RDW 15 (10.5-15) % Plt Count 163 (150-450) 10^3/ul MPV 8 (7.4-10.4) um3 Neut % (Auto) 67.1 (38-83) % Lymph % (Auto) 19.5 L (25-47) % [place] % (Auto) 9.7 H (1-9) % Eos % (Auto) 2.9 (0-6) % Baso % (Auto) 0.8 (0-2) % Absolute Neuts (auto) 3.5 (1.5-7.7) 10^3/ul Absolute Lymphs (auto) 1.0 (1.0-4.8) 10^3/ul Absolute Monos (auto) 0.5 (0-0.8) 10^3/ul Absolute Eos (auto) 0.2 (0-0.6) 10^3/ul Absolute Basos (auto) 0 (0-0.2) 10^3/ul Absolute Nucleated RBC 0 10^3/ul Nucleated RBC % 0.1 INR (Anticoag Therapy) (0.89-1.11) APTT (26.0-36.3) seconds Sodium 138 (133-145) mmol/L Potassium 3.8 (3.5-5.0) mmol/L Chloride 102 (101-111) mmol/L Carbon Dioxide 29 (22-32) mmol/L Anion Gap 7 (2-11) mmol/L BUN 19 (6-24) mg/dL Creatinine 1.41 H (0.51-0.95) mg/dL Est GFR ( Amer) 45.5 (>60) Est GFR (Non-Af Amer) 35.4 (>60) BUN/Creatinine Ratio 13.5 (8-20) Glucose 131 H (70-100) mg/dL Lactic Acid 1.3 (0.5-2.0) mmol/L Calcium 8.9 (8.6-10.3) mg/dL Magnesium 2.0 (1.9-2.7) mg/dL Total Bilirubin 0.50 (0.2-1.0) mg/dL AST 17 (13-39) U/L ALT 8 (7-52) U/L Alkaline Phosphatase 62 (34-104) U/L Total Creatine Kinase 79 (10-223) U/L CK-MB (CK-2) 8.0 H (0.6-6.3) ng/mL Troponin I 0.70 H* (<0.04) ng/mL B-Natriuretic Peptide ( - 100) pg/mL Total Protein 6.7 (6.4-8.9) g/dL Albumin 3.7 (3.2-5.2) g/dL Globulin 3.0 (2-4) g/dL Albumin/Globulin Ratio 1.2 (1-3) TSH 3.31 (0.34-5.60) mcIU/mL Urine Color Urine Appearance Urine pH (5-9) Ur Specific [place] (1.010-1.030) Urine Protein (Negative) Urine Ketones (Negative) Urine Blood (Negative) Urine Nitrate (Negative) Urine Bilirubin (Negative) Urine Urobilinogen (Negative) Ur Leukocyte Esterase (Negative) Urine WBC (Auto) (Absent) Urine RBC (Auto) (Absent) Ur Squamous Epith Cells (Absent) Urine Bacteria (Absent) Urine Glucose (Negative) 10/11/16 10/11/16 10/11/16 Range/Units 10:21 10:21 11:30 WBC (3.5-10.8) 10^3/ul RBC (4.0-5.4) 10^6/ul Hgb (12.0-16.0) g/dl Hct (35-47) % MCV (80-97) fL MCH (27-31) pg MCHC (31-36) g/dl RDW (10.5-15) % Plt Count (150-450) 10^3/ul MPV (7.4-10.4) um3 Neut % (Auto) (38-83) % Lymph % (Auto) (25-47) % Gallia % (Auto) (1-9) % Eos % (Auto) (0-6) % Baso % (Auto) (0-2) % Absolute Neuts (auto) (1.5-7.7) 10^3/ul Absolute Lymphs (auto) (1.0-4.8) 10^3/ul Absolute Monos (auto) (0-0.8) 10^3/ul Absolute Eos (auto) (0-0.6) 10^3/ul Absolute Basos (auto) (0-0.2) 10^3/ul Absolute Nucleated RBC 10^3/ul Nucleated RBC % INR (Anticoag Therapy) 2.40 H (0.89-1.11) APTT 35.9 (26.0-36.3) seconds Sodium (133-145) mmol/L Potassium (3.5-5.0) mmol/L Chloride (101-111) mmol/L Carbon Dioxide (22-32) mmol/L Anion Gap (2-11) mmol/L BUN (6-24) mg/dL Creatinine (0.51-0.95) mg/dL Est GFR ( Amer) (>60) Est GFR (Non-Af Amer) (>60) BUN/Creatinine Ratio (8-20) Glucose (70-100) mg/dL Lactic Acid (0.5-2.0) mmol/L Calcium (8.6-10.3) mg/dL Magnesium (1.9-2.7) mg/dL Total Bilirubin (0.2-1.0) mg/dL AST (13-39) U/L ALT (7-52) U/L Alkaline Phosphatase (34-104) U/L Total Creatine Kinase (10-223) U/L CK-MB (CK-2) (0.6-6.3) ng/mL Troponin I (<0.04) ng/mL B-Natriuretic Peptide 709 H ( - 100) pg/mL Total Protein (6.4-8.9) g/dL Albumin (3.2-5.2) g/dL Globulin (2-4) g/dL Albumin/Globulin Ratio (1-3) TSH (0.34-5.60) mcIU/mL Urine Color Straw Urine Appearance Clear Urine pH 7.0 (5-9) Ur Specific [place] 1.004 L (1.010-1.030) Urine Protein Negative (Negative) Urine Ketones Negative (Negative) Urine Blood Negative (Negative) Urine Nitrate Negative (Negative) Urine Bilirubin Negative (Negative) Urine Urobilinogen Negative (Negative) Ur Leukocyte Esterase 3+ H (Negative) Urine WBC (Auto) 1+(6-10/hpf) H (Absent) Urine RBC (Auto) Trace(0-2/hpf) (Absent) Ur Squamous Epith Cells Present H (Absent) Urine Bacteria Absent (Absent) Urine Glucose Negative (Negative) Microbiology and Other Data: Microbiology 10/11/16 14:30 Nasal Screen MRSA (PCR)(NOE) - Final Nasal Mrsa Negative Assess/Plan/Problems-Billing Ms Sherwood is an 86 yo F who has a h/o afib, , HTN, HLD, stage III CKD and ? CAD who presented to the ER with c/o being in afib s/p PCI with BMS to RCA 10/[address] Benjamin - Patient Problems (1) Atrial fibrillation Comment: cardioversion 10/11/16. 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 c/w coreg and amiodarone. restart AC tomorrow depending on timing of PPM (2) Elevated troponin SNOMED Code(s): 051557235 Comment: prox RCA stent (bare metal in setting of potential need for uterine mass surgery /hysterectomy) Trop peaked at 2.58. Will continue aspirin, atorvastatin and beta emmett. -The patient has surgery scheduled for next week for uterine mass. Will need to make sure she is optimized if possible but a stent may delay possible surgery (3) HLD (hyperlipidemia) Current Visit: Yes Status: Acute Code(s): E78.5 - HYPERLIPIDEMIA, UNSPECIFIED SNOMED Code(s): 61776731 Comment: - Continue atorvastatin. (4) HTN (hypertension) Current Visit: Yes Status: Acute Code(s): I10 - ESSENTIAL (PRIMARY) HYPERTENSION SNOMED Code(s): 37697714 Comment: - Continue carvediolol and furosemide and Amlodipine (5) DVT prophylaxis Comment: restart AC tomorrow based on PPM plans
[2016-10-15] MEDS ORDERED: Clopidogrel TAB* 300 MG PO ONE (17:16)
--- NOTE | 2016-10-16 03:06 | CATH ---
CC: Dr. Quevedo; Talib Cisneros MD * STENT REPORT: DATE OF PROCEDURE: 10/15/16 - ROOM #ICU-03 PRIMARY CARE PHYSICIAN: Dr. Quevedo. SNAGGER: Talib Cisneros MD. PROCEDURES: Right radial artery access, bilateral selective coronary cineangiography, stent placement RCA 3.5 x 16 bare metal stent. HISTORY: An 86-year-old woman with CKD stage 3, uterine mass in need of D and C and possible surgery, paroxysmal atrial fibrillation, on chronic anticoagulation and longstanding anemia, presenting with non-ST elevation infarct in the setting of rapid atrial fib. Stress imaging showed an inferolateral partially reversible defect, troponin peak was only 2.58. In August , she had a similar episode with peak troponin of 4. A BMS was planned to be used if needed because of her need for upcoming surgery as well as chronic anticoagulation with Coumadin. PROCEDURE ACCESS: Right radial artery sheath 6F Slender. MEDICATIONS: 1. Subcu lidocaine. 2. IV Versed. 3. IV fentanyl. 4. Heparin 3000 units. 5. Verapamil 3 mg. 6. Nitroglycerin 300 mcg IA. 7. Brilinta 180 mg p.o. loading dose. 8. Heparin 2000 units IV. DIAGNOSTIC CATHETERS: 5-FL 3.5, 5-FR 4. Guiding catheter 6-F ART 3.5, wire 14 Mailman. The RCA ostium was predilated with a 3 mm balloon followed a 3.5 x 16 bare metal stent, Rebel, deployed at 11 atmospheres 30 seconds, and then postdilated with a 3.5 x 15 noncompliant balloon inflated to 18 atmospheres and then 22 atmospheres for 44 seconds. LV gram was not performed due to renal insufficiency. Contrast volume used was 75 mL of Visipaque. HEMODYNAMICS: Initial BP 175/68, final BP 196/77. ANGIOGRAPHY: A 3 cc syringe was used for coronary injections to minimize contrast load. Left Main: The left main is normal in length, has insignificant ostial stenosis without dampening, the distal left main has a 30% or less stenosis. LAD: The LAD is moderate, supplies a moderate to diagonal, extends to the apex , the LAD has no significant stenosis. Circumflex: The circumflex is not dominant, is moderate, supplies a moderate first marginal, it has mild proximal irregularity, no significant stenosis, circumflex has minor irregularity but no significant stenosis. It ends with a moderate posterolateral. RCA: The RCA is large, dominant, has a very proximal 90% stenosis. Incidentally noted is the prosthetic tissue aortic valve. After pre-dilatation, stent deployment, post dilatation, there was no dissection. No loss of branches. Distal RCA consists of a moderate PDA in the small posterolateral. CONCLUSION: 1. Single-vessel disease RCA, excellent angiographic result with bare metal stent placement RCA. 2. Successful right radial artery access. 3. No significant left coronary artery stenosis. [id number] #: [id number] [facility]
[2016-10-16] MEDS ORDERED: Amiodarone TAB* 200 MG PO SCH (09:00)
[2016-10-16] MEDS: Folic Acid TAB* 1 MG PO SCH (09:26)
[2016-10-16] MEDS: Clopidogrel TAB* 75 MG PO SCH (09:26)
[2016-10-16] MEDS: Amiodarone TAB* 200 MG PO SCH (09:26)
[2016-10-16] MEDS: Atorvastatin* 80 MG TAB PO SCH (09:26)
[2016-10-16] MEDS: Docusate CAP* 100 MG PO SCH ×3 (09:26→20:08)
[2016-10-16] MEDS: Ferrous Sulfate TAB* 325 MG PO SCH (09:27)
[2016-10-16] MEDS: Aspirin EC Low Dose* 81 MG TAB.EC PO SCH (09:27)
[2016-10-16] MEDS: Potassium Chlor TAB* 10 MEQ TAB.ER PO SCH (09:27)
[2016-10-16] MEDS: Furosemide TAB* 40 MG PO SCH (09:27)
[2016-10-16] MEDS: Carvedilol TAB* 3.125 MG PO SCH ×2 (09:27→20:08)
[2016-10-16 10:03] LABS: Calcium 8.8 mg/dL (8.6-10.3); EGFR African American 59.3 (>60); EGFR Non-African American 46.1 (>60); Potassium 3.9 mmol/L (3.5-5.0)
--- NOTE | 2016-10-16 11:31 | PN ---
Subjective Date of Service: 10/16/16 Interval History: Walked on tele with max HR to 90 bpm Has no complaints. Feels well after procedure No CP/SOB, N/V, LH Objective Active Medications: Acetaminophen (Tylenol Tab*) 650 mg PO Q4H PRN PRN Reason: FEVER/PAIN Last Admin: 10/13/16 06:49 Dose: 650 mg Amiodarone HCl (Cordarone Tab*) 100 mg PO DAILY [facility] Last Admin: 10/16/16 09:26 Dose: 100 mg Apixaban (Eliquis*) 5 mg PO BID [facility] Aspirin (Aspirin Ec Low Dose*) 81 mg PO DAILY [facility] Last Admin: 10/16/16 09:27 Dose: 81 mg Atorvastatin Calcium (Lipitor*) 80 mg PO DAILY [facility] Last Admin: 10/16/16 09:26 Dose: 80 mg Carvedilol (Coreg Tab*) 3.125 mg PO BID [facility] Last Admin: 10/16/16 09:27 Dose: 3.125 mg Clopidogrel Bisulfate (Plavix Tab*) 75 mg PO DAILY [facility] Last Admin: 10/16/16 09:26 Dose: 75 mg Docusate Sodium (Colace Cap*) 100 mg PO TID [facility] Last Admin: 10/16/16 09:26 Dose: 100 mg Ferrous Sulfate (Ferrous Sulfate Tab*) 325 mg PO QAM [facility] Last Admin: 10/16/16 09:27 Dose: 325 mg Folic Acid (Folvite Tab*) 1 mg PO QAM [facility] Last Admin: 10/16/16 09:26 Dose: 1 mg Furosemide (Lasix Tab*) 40 mg PO QAM [facility] Last Admin: 10/16/16 09:27 Dose: 40 mg Nitroglycerin (Nitroglycerin Tab 0.4 Mg*) 0.4 mg SL Q5M PRN PRN Reason: ANGINA Last Admin: 10/15/16 16:22 Dose: 0.4 mg Ondansetron HCl (Zofran Inj*) 4 mg IV Q6H PRN PRN Reason: NAUSEA Potassium Chloride (Klor Con Er Tab*) 10 meq PO DAILY [facility] Last Admin: 10/16/16 09:27 Dose: 10 meq Vital Signs 10/15/16 10/15/16 10/15/16 12:17 14:18 14:19 Temperature 98.5 F Pulse Rate 62 Respiratory 20 20 Rate Blood Pressure 155/58 177/59 (mmHg) O2 Sat by Pulse Oximetry 10/15/16 10/15/16 10/15/16 14:30 14:45 15:00 Temperature 97.8 F Pulse Rate 61 59 58 Respiratory 19 20 16 Rate Blood Pressure 188/62 186/55 178/61 (mmHg) O2 Sat by Pulse 100 100 100 Oximetry 10/15/16 10/15/16 10/15/16 15:15 15:30 15:45 Temperature Pulse Rate 58 61 60 Respiratory 21 16 16 Rate Blood Pressure 188/61 194/67 192/64 (mmHg) O2 Sat by Pulse 100 100 100 Oximetry 10/15/16 10/15/16 10/15/16 16:00 16:15 16:30 Temperature 98.0 F Pulse Rate 60 64 69 Respiratory 17 17 20 Rate Blood Pressure 185/58 174/64 127/48 (mmHg) O2 Sat by Pulse 100 98 97 Oximetry 10/15/16 10/15/16 10/15/16 16:45 17:00 17:15 Temperature Pulse Rate 63 64 60 Respiratory 19 16 15 Rate Blood Pressure 160/55 159/46 (mmHg) O2 Sat by Pulse 99 98 99 Oximetry 10/15/16 10/15/16 10/15/16 17:30 17:45 18:00 Temperature Pulse Rate 60 63 64 Respiratory 20 19 17 Rate Blood Pressure 161/51 161/60 (mmHg) O2 Sat by Pulse 99 99 99 Oximetry 10/15/16 10/15/16 10/15/16 18:09 18:15 18:30 Temperature Pulse Rate 61 63 Respiratory 20 15 15 Rate Blood Pressure (mmHg) O2 Sat by Pulse 99 99 Oximetry 10/15/16 10/15/16 10/15/16 18:45 19:00 19:15 Temperature Pulse Rate 64 63 61 Respiratory 13 20 19 Rate Blood Pressure 133/51 (mmHg) O2 Sat by Pulse 99 99 99 Oximetry 10/15/16 10/15/16 10/15/16 19:30 19:45 20:00 Temperature 98.3 F Pulse Rate 60 59 60 Respiratory 18 15 17 Rate Blood Pressure 155/48 (mmHg) O2 Sat by Pulse 99 98 99 Oximetry 10/15/16 10/15/16 10/15/16 20:15 20:30 20:45 Temperature Pulse Rate 60 67 62 Respiratory 17 18 15 Rate Blood Pressure (mmHg) O2 Sat by Pulse 99 98 98 Oximetry 10/15/16 10/15/16 10/15/16 21:00 21:02 21:15 Temperature Pulse Rate 59 60 63 Respiratory 18 20 16 Rate Blood Pressure 124/46 (mmHg) O2 Sat by Pulse 99 98 95 Oximetry 10/15/16 10/15/16 10/15/16 21:30 21:45 22:00 Temperature Pulse Rate 58 58 58 Respiratory 18 16 21 Rate Blood Pressure 127/44 (mmHg) O2 Sat by Pulse 97 99 98 Oximetry 10/15/16 10/15/16 10/15/16 22:15 22:29 22:30 Temperature Pulse Rate 58 58 58 Respiratory 20 14 15 Rate Blood Pressure (mmHg) O2 Sat by Pulse 97 97 96 Oximetry 10/15/16 10/15/16 10/15/16 22:45 23:00 23:15 Temperature Pulse Rate 58 57 59 Respiratory 18 16 19 Rate Blood Pressure 139/62 (mmHg) O2 Sat by Pulse 96 97 96 Oximetry 10/15/16 10/15/16 10/16/16 23:30 23:45 00:00 Temperature 97.9 F Pulse Rate 59 60 59 Respiratory 20 18 20 Rate Blood Pressure (mmHg) O2 Sat by Pulse 95 96 96 Oximetry 10/16/16 10/16/16 10/16/16 00:02 00:15 00:30 Temperature Pulse Rate 59 58 58 Respiratory 19 18 17 Rate Blood Pressure 136/45 (mmHg) O2 Sat by Pulse 96 96 96 Oximetry 10/16/16 10/16/16 10/16/16 00:45 01:00 01:15 Temperature Pulse Rate 58 58 58 Respiratory 17 16 16 Rate Blood Pressure 116/79 (mmHg) O2 Sat by Pulse 96 97 97 Oximetry 10/16/16 10/16/16 10/16/16 01:30 01:45 02:00 Temperature Pulse Rate 62 62 62 Respiratory 19 17 20 Rate Blood Pressure 160/56 (mmHg) O2 Sat by Pulse 96 98 97 Oximetry 10/16/16 10/16/16 10/16/16 02:15 02:30 02:45 Temperature Pulse Rate 61 63 62 Respiratory 19 20 19 Rate Blood Pressure (mmHg) O2 Sat by Pulse 97 97 98 Oximetry 10/16/16 10/16/16 10/16/16 03:00 03:15 03:30 Temperature Pulse Rate 63 59 59 Respiratory 17 16 18 Rate Blood Pressure 163/60 (mmHg) O2 Sat by Pulse 98 96 95 Oximetry 10/16/16 10/16/16 10/16/16 03:45 04:00 04:15 Temperature 97.2 F Pulse Rate 64 59 59 Respiratory 19 18 14 Rate Blood Pressure 158/77 (mmHg) O2 Sat by Pulse 90 97 98 Oximetry 10/16/16 10/16/16 10/16/16 04:30 04:45 05:00 Temperature Pulse Rate 58 57 60 Respiratory 15 18 20 Rate Blood Pressure 102/75 (mmHg) O2 Sat by Pulse 97 97 97 Oximetry 10/16/16 10/16/16 10/16/16 05:15 05:30 05:45 Temperature Pulse Rate 61 61 62 Respiratory 20 19 16 Rate Blood Pressure (mmHg) O2 Sat by Pulse 97 97 98 Oximetry 10/16/16 10/16/16 10/16/16 06:00 06:15 06:30 Temperature Pulse Rate 66 67 65 Respiratory 18 18 12 Rate Blood Pressure 144/56 (mmHg) O2 Sat by Pulse 98 99 99 Oximetry 10/16/16 10/16/16 10/16/16 06:45 07:00 07:15 Temperature Pulse Rate 61 60 64 Respiratory 15 19 16 Rate Blood Pressure 137/55 (mmHg) O2 Sat by Pulse 97 99 99 Oximetry 10/16/16 10/16/16 10/16/16 07:28 07:30 07:45 Temperature 97.6 F Pulse Rate 63 63 Respiratory 14 13 Rate Blood Pressure (mmHg) O2 Sat by Pulse 98 98 Oximetry 10/16/16 10/16/16 10/16/16 08:00 08:15 08:30 Temperature Pulse Rate 61 66 64 Respiratory 22 20 21 Rate Blood Pressure 124/83 (mmHg) O2 Sat by Pulse 98 99 99 Oximetry 10/16/16 10/16/16 10/16/16 09:00 09:15 09:30 Temperature Pulse Rate 77 73 70 Respiratory 19 16 22 Rate Blood Pressure 151/59 (mmHg) O2 Sat by Pulse 97 96 97 Oximetry 10/16/16 10/16/16 10/16/16 09:45 10:00 10:15 Temperature Pulse Rate 67 70 73 Respiratory 19 19 17 Rate Blood Pressure 141/38 (mmHg) O2 Sat by Pulse 96 92 99 Oximetry 08/0810/16/16 10/16/16 10:30 10:45 11:00 Temperature Pulse Rate 69 66 70 Respiratory 19 18 19 Rate Blood Pressure (mmHg) O2 Sat by Pulse 98 100 98 Oximetry 10/16/16 10/16/16 10/16/16 11:03 11:15 11:23 Temperature 98.2 F Pulse Rate 66 71 Respiratory 20 13 Rate Blood Pressure 138/46 (mmHg) O2 Sat by Pulse 97 99 Oximetry Oxygen Devices in Use Now: None Appearance: sittin gin chair, NAD Eyes: No Scleral Icterus, PERRLA Ears/Nose/Mouth/Throat: Mucous Membranes Moist Neck: NL Appearance and Movements; NL JVP, Trachea Midline Respiratory: Symmetrical Chest Expansion and Respiratory Effort Cardiovascular: RRR Abdominal: NL Sounds; No Tenderness; No Distention, No Hepatosplenomegaly Extremities: - - trace le edema, right radial access c/d/i no bruit Neurological: Alert and Oriented x 3 Result Diagrams: 10/15/16 05:30 10/16/16 02:41 Additional Lab and Data: Lab Results 10/11/16 10/11/16 10/11/16 Range/Units 10:21 10:21 10:21 WBC 5.2 (3.5-10.8) 10^3/ul RBC 3.58 L (4.0-5.4) 10^6/ul Hgb 11.1 L (12.0-16.0) g/dl Hct 34 L (35-47) % MCV 95 (80-97) fL MCH 31 (27-31) pg MCHC 33 (31-36) g/dl RDW 15 (10.5-15) % Plt Count 163 (150-450) 10^3/ul MPV 8 (7.4-10.4) um3 Neut % (Auto) 67.1 (38-83) % Lymph % (Auto) 19.5 L (25-47) % Assumption % (Auto) 9.7 H (1-9) % Eos % (Auto) 2.9 (0-6) % Baso % (Auto) 0.8 (0-2) % Absolute Neuts (auto) 3.5 (1.5-7.7) 10^3/ul Absolute Lymphs (auto) 1.0 (1.0-4.8) 10^3/ul Absolute Monos (auto) 0.5 (0-0.8) 10^3/ul Absolute Eos (auto) 0.2 (0-0.6) 10^3/ul Absolute Basos (auto) 0 (0-0.2) 10^3/ul Absolute Nucleated RBC 0 10^3/ul Nucleated RBC % 0.1 INR (Anticoag Therapy) (0.89-1.11) APTT (26.0-36.3) seconds Sodium 138 (133-145) mmol/L Potassium 3.8 (3.5-5.0) mmol/L Chloride 102 (101-111) mmol/L Carbon Dioxide 29 (22-32) mmol/L Anion Gap 7 (2-11) mmol/L BUN 19 (6-24) mg/dL Creatinine 1.41 H (0.51-0.95) mg/dL Est GFR ( Amer) 45.5 (>60) Est GFR (Non-Af Amer) 35.4 (>60) BUN/Creatinine Ratio 13.5 (8-20) Glucose 131 H (70-100) mg/dL Lactic Acid 1.3 (0.5-2.0) mmol/L Calcium 8.9 (8.6-10.3) mg/dL Magnesium 2.0 (1.9-2.7) mg/dL Total Bilirubin 0.50 (0.2-1.0) mg/dL AST 17 (13-39) U/L ALT 8 (7-52) U/L Alkaline Phosphatase 62 (34-104) U/L Total Creatine Kinase 79 (10-223) U/L CK-MB (CK-2) 8.0 H (0.6-6.3) ng/mL Troponin I 0.70 H* (<0.04) ng/mL B-Natriuretic Peptide ( - 100) pg/mL Total Protein 6.7 (6.4-8.9) g/dL Albumin 3.7 (3.2-5.2) g/dL Globulin 3.0 (2-4) g/dL Albumin/Globulin Ratio 1.2 (1-3) TSH 3.31 (0.34-5.60) mcIU/mL Urine Color Urine Appearance Urine pH (5-9) Ur Specific Condon (1.010-1.030) Urine Protein (Negative) Urine Ketones (Negative) Urine Blood (Negative) Urine Nitrate (Negative) Urine Bilirubin (Negative) Urine Urobilinogen (Negative) Ur Leukocyte Esterase (Negative) Urine WBC (Auto) (Absent) Urine RBC (Auto) (Absent) Ur Squamous Epith Cells (Absent) Urine Bacteria (Absent) Urine Glucose (Negative) 10/11/16 10/11/16 10/11/16 Range/Units 10:21 10:21 11:30 WBC (3.5-10.8) 10^3/ul RBC (4.0-5.4) 10^6/ul Hgb (12.0-16.0) g/dl Hct (35-47) % MCV (80-97) fL MCH (27-31) pg MCHC (31-36) g/dl RDW (10.5-15) % Plt Count (150-450) 10^3/ul MPV (7.4-10.4) um3 Neut % (Auto) (38-83) % Lymph % (Auto) (25-47) % Assumption % (Auto) (1-9) % Eos % (Auto) (0-6) % Baso % (Auto) (0-2) % Absolute Neuts (auto) (1.5-7.7) 10^3/ul Absolute Lymphs (auto) (1.0-4.8) 10^3/ul Absolute Monos (auto) (0-0.8) 10^3/ul Absolute Eos (auto) (0-0.6) 10^3/ul Absolute Basos (auto) (0-0.2) 10^3/ul Absolute Nucleated RBC 10^3/ul Nucleated RBC % INR (Anticoag Therapy) 2.40 H (0.89-1.11) APTT 35.9 (26.0-36.3) seconds Sodium (133-145) mmol/L Potassium (3.5-5.0) mmol/L Chloride (101-111) mmol/L Carbon Dioxide (22-32) mmol/L Anion Gap (2-11) mmol/L BUN (6-24) mg/dL Creatinine (0.51-0.95) mg/dL Est GFR ( Amer) (>60) Est GFR (Non-Af Amer) (>60) BUN/Creatinine Ratio (8-20) Glucose (70-100) mg/dL Lactic Acid (0.5-2.0) mmol/L Calcium (8.6-10.3) mg/dL Magnesium (1.9-2.7) mg/dL Total Bilirubin (0.2-1.0) mg/dL AST (13-39) U/L ALT (7-52) U/L Alkaline Phosphatase (34-104) U/L Total Creatine Kinase (10-223) U/L CK-MB (CK-2) (0.6-6.3) ng/mL Troponin I (<0.04) ng/mL B-Natriuretic Peptide 709 H ( - 100) pg/mL Total Protein (6.4-8.9) g/dL Albumin (3.2-5.2) g/dL Globulin (2-4) g/dL Albumin/Globulin Ratio (1-3) TSH (0.34-5.60) mcIU/mL Urine Color Straw Urine Appearance Clear Urine pH 7.0 (5-9) Ur Specific Condon 1.004 L (1.010-1.030) Urine Protein Negative (Negative) Urine Ketones Negative (Negative) Urine Blood Negative (Negative) Urine Nitrate Negative (Negative) Urine Bilirubin Negative (Negative) Urine Urobilinogen Negative (Negative) Ur Leukocyte Esterase 3+ H (Negative) Urine WBC (Auto) 1+(6-10/hpf) H (Absent) Urine RBC (Auto) Trace(0-2/hpf) (Absent) Ur Squamous Epith Cells Present H (Absent) Urine Bacteria Absent (Absent) Urine Glucose Negative (Negative) Microbiology and Other Data: Microbiology 10/11/16 14:30 Nasal Screen MRSA (PCR)(NOE) - Final Nasal Mrsa Negative Assess/Plan/Problems-Billing Ms Sherwood is an 86 yo F who has a h/o afib, tachy/elvin, , HTN, HLD, stage III CKD and CAD who presented to the ER with c/o being in afib s/p PCI with BMS to RCA 10/[address] Benjamin - Patient Problems (1) Atrial fibrillation Comment: cardioversion 10/11/16. Has tachy elvin syndrome and will benefit from a pacemaker director long term care. HR control better controlled after RCA stenting. May not need PPM this stay. Monitor overnight and possible d/c tomorrow if stable c/w coreg and amiodarone. Eliquis 5mg BID started after discussion with pt (2) Elevated troponin SNOMED Code(s): 297943450 Comment: prox RCA stent (bare metal in setting of potential need for uterine mass surgery /hysterectomy) Trop peaked at 2.58. Will continue aspirin, atorvastatin and beta emmett. Minimal interval between stent and surgery would be 4 weeks (3) HLD (hyperlipidemia) Current Visit: Yes Status: Acute Code(s): E78.5 - HYPERLIPIDEMIA, UNSPECIFIED SNOMED Code(s): 86901227 Comment: - Continue atorvastatin. (4) HTN (hypertension) Current Visit: Yes Status: Acute Code(s): I10 - ESSENTIAL (PRIMARY) HYPERTENSION SNOMED Code(s): 01831643 Comment: - Continue carvediolol and furosemide and Amlodipine (5) DVT prophylaxis Comment: elizackery
[2016-10-16] MEDS: Apixaban* 5 MG TAB PO SCH (20:08)
[2016-10-17] MEDS: Potassium Chlor TAB* 10 MEQ TAB.ER PO SCH (09:01)
[2016-10-17] MEDS: Carvedilol TAB* 3.125 MG PO SCH (09:01)
[2016-10-17] MEDS: Aspirin EC Low Dose* 81 MG TAB.EC PO SCH (09:01)
[2016-10-17] MEDS: Ferrous Sulfate TAB* 325 MG PO SCH (09:01)
[2016-10-17] MEDS: Atorvastatin* 80 MG TAB PO SCH (09:01)
[2016-10-17] MEDS: Docusate CAP* 100 MG PO SCH ×2 (09:01→13:46)
[2016-10-17] MEDS: Folic Acid TAB* 1 MG PO SCH (09:01)
[2016-10-17] MEDS: Furosemide TAB* 40 MG PO SCH (09:01)
[2016-10-17] MEDS: Apixaban* 5 MG TAB PO SCH (09:01)
[2016-10-17] MEDS: Clopidogrel TAB* 75 MG PO SCH (09:01)
[2016-10-17] MEDS: Amiodarone TAB* 200 MG PO SCH (09:02)
[2016-10-17 13:53] VITALS: BP 133/50
--- NOTE | 2016-10-18 06:03 | DS ---
CC: Dr. Quevedo, Dr. Cisneros * DISCHARGE SUMMARY: DATE OF ADMISSION: 10/11/16 DATE OF DISCHARGE: 10/17/16 PRIMARY CARE PROVIDER: Dr. Quevedo. SUPPORT CLERK: Dr. Cisneros. PRIMARY DIAGNOSES: 1. Non-ST segment elevation myocardial infarction. 2. Tachybrady syndrome. SECONDARY DIAGNOSES: Include: 1. Atrial fibrillation. 2. Aortic stenosis. 3. Hypertension. 4. Hyperlipidemia. 5. Chronic kidney disease. 6. Chronic uterine mass, pending biopsy. 7. Coronary artery disease. MEDICATIONS: On discharge include: 1. Multivitamin 1 tablet daily. 2. Simvastatin 40 mg daily. 3. Potassium chloride 10 mEq daily. 4. Vitamin B12 1000 mcg daily. 5. Amiodarone 100 mg daily. 6. Docusate 100 mg 3 times a day as needed for constipation. 7. Aspirin 81 mg daily. 8. Lasix 40 mg in the morning. 9. Folic acid 1 mg in the morning. 10. Ferrous sulfate 325 mg in the morning. 11. Carvedilol 3.125 mg twice daily. 12. Calcium and vitamin D 2 tabs twice daily. 13. Nitroglycerin sublingual tablet 0.4 mg every 5 minutes as needed for chest pain up to 3 times. 14. Plavix 75 mg daily. 15. Eliquis 5 mg twice daily. PROCEDURE PERFORMED: During hospital stay, left heart cath; placement of bare- metal stents to proximal RCA for 90% lesion, with radial access by Dr. Nemo Benjamin, 10/15/16. HISTORY OF PRESENT ILLNESS AND HOSPITAL COURSE: This is an 86-year-old female with past medical history as outlined in the history of present illness on the day of admission including history of CAD, atrial fibrillation. She had been in her usual state of health, presented to the hospital with palpitations with ventricular rate as high as 134; however, developed bradycardia up to 40s with attempts to control heart rate, indicating tachybrady syndrome. In the setting of atrial fibrillation with rapid ventricular response, her troponin peaked at 2.58. She underwent a nuclear stress test that was interpreted as an intermediate risk. She ultimately underwent left heart cath, which elucidated 90% proximal RCA lesion. After restoring arterial blood flow, the patient's heart rate did seem to stabilize, remained at 60s, only peaked in the 90s with ambulation. The patient remained symptom free. At this point, placement of a permanent pacemaker will be deferred while she is on Plavix. On discussion with Dr. Benjamin, the patient should remain on Plavix at least 4 weeks prior to holding for future surgeries. The patient did have identification of an uterine mass which was pending biopsy and/or removal this week. This will have to be postponed for 4 weeks until holding Plavix. The patient was transitioned to Eliquis and she has multiple procedures pending including permanent pacemaker as well as biopsy and/or removal of uterine mass and we will make it easier for the patient to discontinue and restart the Eliquis for both of these procedures after which she can consider transitioning back to Coumadin. Discussed the risks and benefits of the novel agents including Eliquis in comparison with Coumadin. The patient opted to start Eliquis at this time. There were no complications with patient's hospital stay. At followup please; 1. Evaluate for continued heart rate control. 2. Evaluate for continued absence of symptoms. 3. Reasons for returning to the hospital including but not limited to recurrent or worsening symptoms including chest pain, shortness of breath, nausea, vomiting, lightheadedness, loss of consciousness, near loss of consciousness, bleeding from any source, inability to obtain or tolerate medications discussed with the patient. She acknowledged understanding. Greater than 60 minutes were spent in the discharge of this patient, greater than half was spent [id number] with the patient. [id number]/[facility] #: [id number] DONNA
== END 2016-10-17 15:05 | disposition home or self-care (01) | DRG 249 ==
LOC: ED 10:00 → MEDTELE 11:52 → ICU 12:39 → MEDTELE 10-12 18:03 → OBSVTOIN 10-12 18:11 → ICU 10-15 14:11 → MEDTELE 10-16 11:36
PROVIDERS: ADMIT Hospitalist; ATTEND Internal Medicine
PROC: 5A2204Z Restoration of Cardiac Rhythm, Single (ICD-10-PCS; principal; 2016-10-12)
PROC: 02703DZ Dilation of Coronary Artery, One Artery with Intraluminal Device, Percutaneous Approach (ICD-10-PCS; 2016-10-15)
PROC: B211YZZ Fluoroscopy of Multiple Coronary Arteries using Other Contrast (ICD-10-PCS; 2016-10-15)
PROC: 4A023N7 Measurement of Cardiac Sampling and Pressure, Left Heart, Percutaneous Approach (ICD-10-PCS; 2016-10-15)
DX: I21.4 Non-ST elevation (NSTEMI) myocardial infarction (principal); I49.5 Sick sinus syndrome; I48.0 Paroxysmal atrial fibrillation; N18.3 Chronic kidney disease, stage 3 (moderate); I08.1 Rheumatic disorders of both mitral and tricuspid valves; I12.9 Hypertensive chronic kidney disease with stage 1 through stage 4 chronic kidney disease, or unspecified chronic kidney disease; E78.5 Hyperlipidemia, unspecified; N85.9 Noninflammatory disorder of uterus, unspecified; I25.10 Atherosclerotic heart disease of native coronary artery without angina pectoris; R74.8 Abnormal levels of other serum enzymes; E78.00 Pure hypercholesterolemia, unspecified; M15.9 Polyosteoarthritis, unspecified; Z96.1 Presence of intraocular lens; D64.9 Anemia, unspecified; Z79.82 Long term (current) use of aspirin; Z79.01 Long term (current) use of anticoagulants; Z79.02 Long term (current) use of antithrombotics/antiplatelets; Z95.2 Presence of prosthetic heart valve; Z82.49 Family history of ischemic heart disease and other diseases of the circulatory system; Z82.3 Family history of stroke; Z98.42 Cataract extraction status, left eye; Z98.41 Cataract extraction status, right eye
CPT/HCPCS: 36415; 71010; 78452; 80048; 80053; 81003; 81015; 82550; 82553; 83605; 83735; 83880; 84443; 84484; 85025; 85379; 85610; 85730; 87086; 87641; 92960; 93005; 93017; 93308; 93454; 99156; 99157; A9270-GY; A9502; C1725; C1876; C1887; G0378; J0280; J0282; J0360; J1644; J1940; J2001; J2250; J2310; J2785; J3010; J3480

== ENCOUNTER 2016-10-22 09:08 | Emergency (ER) | payer MEDICARE ==
--- NOTE | 2016-10-22 09:49 | RAD ---
HISTORY: Chest pain COMPARISONS: October 11, 2016 VIEWS: 4: Frontal dual-energy and lateral views of the chest. FINDINGS: CARDIOMEDIASTINAL SILHOUETTE: The cardiomediastinal silhouette is normal. A prosthetic heart valve is noted CHADD: The chadd are normal. PLEURA: The costophrenic angles are sharp. No pleural abnormalities are noted. LUNG PARENCHYMA: There is hyperinflation with flattening of the diaphragm and expansion of the AP diameter of the chest. ABDOMEN: The upper abdomen is clear. There is no subphrenic gas. BONES AND SOFT TISSUES: The patient is status post median sternotomy. OTHER: None. IMPRESSION: HYPERINFLATION, CONSISTENT WITH COPD. NO ACTIVE CARDIOPULMONARY DISEASE.
[2016-10-22 09:59] LABS: Hematocrit 34 % (35-47); Mean Corpuscular HGB Conc 33 g/dl (31-36); Mean Corpuscular Hemoglobin 31 pg (27-31); Mean Corpuscular Volume 93 fL (80-97); Mean Platelet Volume 8 um3 (7.4-10.4); Red Blood Count 3.59 10^6/ul (4.0-5.4); Red Cell Distribution Width 14 % (10.5-15); White Blood Count 5.2 10^3/ul (3.5-10.8)
[2016-10-22 10:18] LABS: Albumin 4.1 g/dL (3.2-5.2); BUN/Creatinine Ratio 13.5 (8-20); Calcium 9.2 mg/dL (8.6-10.3); EGFR African American 45.5 (>60); EGFR Non-African American 35.4 (>60); Globulin 3.3 g/dL (2-4); Total Bilirubin 0.6 mg/dL (0.2-1.0); Total Protein 7.4 g/dL (6.4-8.9)
[2016-10-22 10:23] LABS: Troponin I 0.07 ng/mL (<0.04)
[2016-10-22] MEDS ORDERED: HYDROcodone/ACETAMIN 5-325 MG* 1 TAB PO ONE (11:06)
[2016-10-22 12:34] VITALS: BP 177/59
--- NOTE | 2016-10-23 17:20 | ED ---
Alanna Sctot Thomas, scribed for Shane Reynolds MD on 10/22/16 at 0952 . Upper Extremity Pain - HPI Summary HPI Summary: The pt is an 86 y/o F presenting to the ED c/o pain in her L shoulder blade that began two days ago. Last week, she was admitted to [facility] and she had a cardiac stent placed [address] Benjamin. She was discharged five days ago. The pain is rated 6/10. The pain is aggravated and alleviated by nothing. 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 The patient has no other complaints at this time. Pt denies CP, SOB, fevers, cough, nausea, and vomiting. PMHx: anticoagulation, CHF, HTN, syncope, and arthritis. PSHx: aortic valve replacement 2011, cardiac stent (6 days ago at [facility]). SHx: no smoking, no alcohol use, no illicit drug use. - History of Current Complaint Chief Complaint: EDGeneral Stated Complaint: LT SHOULDER PAIN Time Seen by Provider: 10/22/16 09:22 Hx Obtained From: Patient, Family/Collections Associate - accompanied by Onset/Duration: Started Days Ago - 2 days, Still Present Timing: Constant Severity Currently: Moderate Pain Location: Other: - L shoulder blade Aggravating Factor(s): Nothing Alleviating Factor(s): Nothing Associated Signs & Symptoms: Positive: Negative. Negative: Fever, Chest Pain, SOB, Nausea, Vomiting, Other - NEG: cough, - Allergies/Home Medications Allergies/Adverse Reactions: Allergies Allergy/AdvReac Type Severity Reaction Status Date / Time No Known Allergies Allergy Verified 10/22/16 09:13 PMH/Surg Hx/FS Hx/Imm Hx Previously Healthy: No Endocrine/Hematology History: Reports: Hx Anticoagulant Therapy, Hx Anemia Denies: Hx Diabetes, Hx Thyroid Disease Cardiovascular History: Reports: Hx Congestive Heart Failure, Hx Coronary Artery Disease, Hx Hypercholesterolemia, Hx Hypertension - ON MEDS, Hx Peripheral Vascular Disease, Hx Syncope - pt states "spells lately last couple of months", Hx Valvular Heart Disease - Aortic Valvle replacement 2012, Other Cardiovascular Problems/Disorders - aortic valve replacement Denies: Hx Angina, Hx Pacemaker/ICD Respiratory History: Denies: Hx Asthma, Hx Chronic Bronchitis - bronchitis in 2014, Hx Chronic Obstructive Pulmonary Disease (COPD) GI History: Denies: Hx Gastrointestinal Bleed, Hx Hiatal Hernia, Hx Ulcer History: Denies: Hx Kidney Stones, Hx Renal Disease Musculoskeletal History: Reports: Hx Arthritis - GENERALIZED, Hx Back Problems, Other Musculoskeletal History - HAMMER TOE LEFT SECOND TOE Denies: Hx Osteoporosis Sensory History: Reports: Hx Cataracts - LENS IMPLANTS 2011, Hx Contacts or Glasses, Hx Vision Problem Denies: Hx Hearing Aid Opthamlomology History: Reports: Hx Cataracts - LENS IMPLANTS 2011, Hx Contacts or Glasses, Hx Vision Problem Neurological History: Denies: Hx Dementia, Hx Transient Ischemic Attacks (TIA) Psychiatric History: Denies: Hx Panic Disorder - Cancer History Hx Chemotherapy: No Hx Radiation Therapy: No - Surgical History Surgery Procedure, Year, and Place: AORTIC valve replacement, 2011,. , 1963, [facility]. Cataract surgery, 2011, [facility], [place]. cardiac stent October 2016 Hx Anesthesia Reactions: No Infectious Disease History: Denies: Hx Clostridium Difficile, Hx Hepatitis, Hx Human Immunodeficiency Virus (HIV), Hx of Known/Suspected MRSA, Hx Shingles, Hx Tuberculosis, Hx Known/ Suspected VRE, Hx Known/Suspected VRSA, History Other Infectious Disease, Traveled Outside the [place] in Last 30 Days - Family History Known Family History: Positive: Hypertension - Social History Alcohol Use: None Hx Substance Use: No Substance Use Type: Reports: None Hx Tobacco Use: No Smoking Status (MU): Never Smoked Tobacco Have You Smoked in the Last Year: No Review of Systems Constitutional: Negative Negative: Fever Negative: Chest Pain Negative: Shortness Of Breath, Cough Negative: Vomiting, Nausea Positive: Other - POS: L shoulder blade pain All Other Systems Reviewed And Are Negative: Yes Physical Exam - Summary Physical Exam Summary: VITAL SIGNS: Reviewed. GENERAL: ~Patient is a well-developed and nourished female who is lying comfortable in the stretcher. ~Patient is not in any acute respiratory distress. HEAD AND FACE: No signs of trauma. ~No ecchymosis, hematomas or skull depressions. No sinus tenderness. EYES: PERRLA, EOMI x 2, No injected conjunctiva, no nystagmus. EARS: Hearing grossly intact. Ear canals and tympanic membranes are within normal limits. MOUTH: Oropharynx within normal limits. NECK: Supple, trachea is midline, no adenopathy, no JVD, no carotid bruit, no c- spine tenderness, neck with full ROM. CHEST: Symmetric, no tenderness at palpation LUNGS: Clear to auscultation bilaterally. No wheezing or crackles. CVS: Regular rate and rhythm, S1 and S2 present, no murmurs or gallops appreciated. ABDOMEN: Soft, non-tender. No signs of distention. No rebound no guarding, and no masses palpated. Bowel sounds are normal. EXTREMITIES: There is some tenderness in the LEFT shoulder blade. FROM in all major joints, no edema, no cyanosis or clubbing. NEURO: Alert and oriented x 3. No acute neurological deficits. Speech is normal and follows commands. SKIN: Dry and warm Triage Information Reviewed: Yes Vital Signs On Initial Exam: Initial Vitals Temp Pulse Resp BP Pulse Ox 97.5 F 71 16 191/68 99 10/22/16 09:13 10/22/16 09:13 10/22/16 09:13 10/22/16 09:13 10/22/16 09:13 Vital Signs Reviewed: Yes Diagnostics - Vital Signs Vital Signs Temp Pulse Resp BP Pulse Ox 10/22/16 09:13 97.5 F 71 16 191/68 99 - Laboratory Lab Results: Lab Results 10/22/16 10/22/16 10/22/16 Range/Units 09:22 09:46 09:46 WBC 5.2 (3.5-10.8) 10^3/ul RBC 3.59 L (4.0-5.4) 10^6/ul Hgb 11.0 L (12.0-16.0) g/dl Hct 34 L (35-47) % MCV 93 (80-97) fL MCH 31 (27-31) pg MCHC 33 (31-36) g/dl RDW 14 (10.5-15) % Plt Count 193 (150-450) 10^3/ul MPV 8 (7.4-10.4) um3 Neut % (Auto) 67.7 (38-83) % Lymph % (Auto) 17.8 L (25-47) % [place] % (Auto) 11.4 H (1-9) % Eos % (Auto) 2.1 (0-6) % Baso % (Auto) 1.0 (0-2) % Absolute Neuts (auto) 3.5 (1.5-7.7) 10^3/ul Absolute Lymphs (auto) 0.9 L (1.0-4.8) 10^3/ul Absolute Monos (auto) 0.6 (0-0.8) 10^3/ul Absolute Eos (auto) 0.1 (0-0.6) 10^3/ul Absolute Basos (auto) 0.1 (0-0.2) 10^3/ul Absolute Nucleated RBC 0 10^3/ul Nucleated RBC % 0 INR (Anticoag Therapy) 1.85 H (0.89-1.11) APTT 32.0 (26.0-36.3) seconds Sodium 135 (133-145) mmol/L Potassium 4.0 (3.5-5.0) mmol/L Chloride 98 L (101-111) mmol/L Carbon Dioxide 30 (22-32) mmol/L Anion Gap 7 (2-11) mmol/L BUN 19 (6-24) mg/dL Creatinine 1.41 H (0.51-0.95) mg/dL Est GFR ( Amer) 45.5 (>60) Est GFR (Non-Af Amer) 35.4 (>60) BUN/Creatinine Ratio 13.5 (8-20) Glucose 102 H (70-100) mg/dL Lactic Acid (0.5-2.0) mmol/L Calcium 9.2 (8.6-10.3) mg/dL Total Bilirubin 0.60 (0.2-1.0) mg/dL AST 17 (13-39) U/L ALT 10 (7-52) U/L Alkaline Phosphatase 66 (34-104) U/L Total Creatine Kinase 58 (10-223) U/L CK-MB (CK-2) 1.4 (0.6-6.3) ng/mL Troponin I 0.07 H* (<0.04) ng/mL B-Natriuretic Peptide ( - 100) pg/mL Total Protein 7.4 (6.4-8.9) g/dL Albumin 4.1 (3.2-5.2) g/dL Globulin 3.3 (2-4) g/dL Albumin/Globulin Ratio 1.2 (1-3) 10/22/16 10/22/16 10/22/16 Range/Units 09:46 09:46 12:32 WBC (3.5-10.8) 10^3/ul RBC (4.0-5.4) 10^6/ul Hgb (12.0-16.0) g/dl Hct (35-47) % MCV (80-97) fL MCH (27-31) pg MCHC (31-36) g/dl RDW (10.5-15) % Plt Count (150-450) 10^3/ul MPV (7.4-10.4) um3 Neut % (Auto) (38-83) % Lymph % (Auto) (25-47) % [place] % (Auto) (1-9) % Eos % (Auto) (0-6) % Baso % (Auto) (0-2) % Absolute Neuts (auto) (1.5-7.7) 10^3/ul Absolute Lymphs (auto) (1.0-4.8) 10^3/ul Absolute Monos (auto) (0-0.8) 10^3/ul Absolute Eos (auto) (0-0.6) 10^3/ul Absolute Basos (auto) (0-0.2) 10^3/ul Absolute Nucleated RBC 10^3/ul Nucleated RBC % INR (Anticoag Therapy) (0.89-1.11) APTT (26.0-36.3) seconds Sodium (133-145) mmol/L Potassium (3.5-5.0) mmol/L Chloride (101-111) mmol/L Carbon Dioxide (22-32) mmol/L Anion Gap (2-11) mmol/L BUN (6-24) mg/dL Creatinine (0.51-0.95) mg/dL Est GFR ( Amer) (>60) Est GFR (Non-Af Amer) (>60) BUN/Creatinine Ratio (8-20) Glucose (70-100) mg/dL Lactic Acid 1.2 (0.5-2.0) mmol/L Calcium (8.6-10.3) mg/dL Total Bilirubin (0.2-1.0) mg/dL AST (13-39) U/L ALT (7-52) U/L Alkaline Phosphatase (34-104) U/L Total Creatine Kinase (10-223) U/L CK-MB (CK-2) (0.6-6.3) ng/mL Troponin I 0.07 H* (<0.04) ng/mL B-Natriuretic Peptide 327 H ( - 100) pg/mL Total Protein (6.4-8.9) g/dL Albumin (3.2-5.2) g/dL Globulin (2-4) g/dL Albumin/Globulin Ratio (1-3) Result Diagrams: 10/22/16 09:46 10/22/16 09:22 Lab Statement: Any lab studies that have been ordered have been reviewed, and results considered in the medical decision making process. - Radiology CXR Xray Interpretation: No Acute Changes - HYPERINFLATION, CONSISTENT WITH COPD. NO ACTIVE CARDIOPULMONARY DISEASE. Radiology Interpretation Completed By: Radiologist - EKG 09:27 Cardiac Rate: NL - 67 BPM EKG Interpretation: NSR with no ST elevations. QWI in III. Course/Dx - Course Assessment/Plan: The pt is an 86 y/o F presenting to the ED c/o pain in her L shoulder blade that began two days ago. Last week, she was admitted to [facility] and she had a cardiac stent placed [address] Benjamin. She was discharged five days ago. The pain is rated 6/10. The pain is aggravated and alleviated by nothing. 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 The patient has no other complaints at this time. Pt denies CP, SOB, fevers, cough, nausea, and vomiting. PMHx: anticoagulation, CHF, HTN, syncope, and arthritis. PSHx: aortic valve replacement 2011, cardiac stent (6 days ago at [facility]). SHx: no smoking, no alcohol use, no illicit drug use. Test results are without any significant abnormality except a chronic anemia, creatinine 1.41 which is baseline for the patient, and a troponin of 0.07 x2 four hours apart. The patients troponin has been trending down since she had a catheter and stent placement six days ago. CXR reveals HYPERINFLATION, CONSISTENT WITH COPD. NO ACTIVE CARDIOPULMONARY DISEASE. She was given one tablet of Achille and all symptoms were resolved. At this point, the patient is asymptomatic. The patient denies any CP, SOB, or palpitations. She is hemodynamically stable and alert and oriented x3. I discussed all the findings and test results with the patient. Patient was instructed to return to the emergency room immediately if any of the symptoms return or worsens. Plan of care was discussed with the patient and understands and agrees. All questions were answered at patient satisfaction. There were no further complaints or concerns. - Diagnoses Differential Diagnosis/HQI/PQRI: Positive: Contusion, Strain, Sprain Provider Diagnoses: Back pain Discharge - Discharge Plan Condition: Stable Disposition: HOME Patient Education Materials: Back Pain (ED) Referrals: Susy Quevedo MD [Primary Care Provider] - 3 Days The documentation as recorded by the Alanna harrington Thomas accurately reflects the service I personally performed and the decisions made by Rodolfo leblanc Walter, MD.
== END 2016-10-22 13:18 | disposition home or self-care (01) ==
LOC: ED 09:08
DX: M54.6 Pain in thoracic spine (principal); M25.512 Pain in left shoulder; I25.10 Atherosclerotic heart disease of native coronary artery without angina pectoris; I10 Essential (primary) hypertension; Z95.5 Presence of coronary angioplasty implant and graft; E78.00 Pure hypercholesterolemia, unspecified; I50.9 Heart failure, unspecified; Z95.2 Presence of prosthetic heart valve
CPT/HCPCS: 36415; 71020; 80053; 82550; 82553; 83605; 83880; 84484; 85025; 85610; 85730; 93005; 99283

== ENCOUNTER 2016-12-28 10:08 | Day surgery (SDC) | payer MEDICARE ==
[~2016-12-28 10:08] MED LIST: Buffered Lidocaine 0.9% SYRIN* 5 ML/SYR SYRINGE INTRADERM ONE; Famotidine IV* 10 MG/ML 2 ML (20 mg) IV ONE; Silver Nitrate/Potassium Nitr* 1 EA STICK ONE
[2016-12-28] MEDS ORDERED: Buffered Lidocaine 0.9% SYRIN* 5 ML/SYR SYRINGE ONE (10:16)
[2016-12-28] MEDS ORDERED: Famotidine IV* 10 MG/ML 2 ML (20 mg) ONE (10:16)
[2016-12-28] MEDS ORDERED: Midazolam* 1 MG/ML 2 ML VIAL (2 MG) ONE (10:40)
[2016-12-28] MEDS ORDERED: fentaNYL* 50 MCG/ML 2 ML VIAL (100 MCG VIAL) ONE (10:40)
[2016-12-28] MEDS ORDERED: DiMENhydriNATE IV* 50 MG/ML VIAL ONE (12:03)
[2016-12-28] MEDS ORDERED: EPHEDrine (Pressors)* 50 MG/ML VIAL ONE (12:03)
[2016-12-28] MEDS ORDERED: Propofol* 10 MG/ML 20 ML BTL IV PUSH ONE (12:03)
[2016-12-28] MEDS ORDERED: Lidocaine 2% PF * 5 ML VIAL ONE (12:03)
[2016-12-28] MEDS ORDERED: Phenylephrine IV* 40 MCG/ML 10 ML SYRINGE ONE (12:03)
[2016-12-28] MEDS ORDERED: Ondansetron INJ* 2 MG/ML VIAL ONE (12:03)
[2016-12-28] MEDS ORDERED: Dexamethasone IV* 4 MG/ML 1 ML (4 MG) ONE (12:03)
[2016-12-28] MEDS ORDERED: Acetaminophen TAB* 325 MG PO PRN (12:16)
[2016-12-28] MEDS ORDERED: DiMENhydriNATE IV* 50 MG/ML VIAL IV PUSH PRN (12:16)
[2016-12-28 13:07] VITALS: BP 166/68
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
== END 2016-12-28 13:46 | disposition home or self-care (01) ==
LOC: OR 10:08
PROVIDERS: ATTEND Obstetrics & Gynecology
DX: N84.0 Polyp of corpus uteri (principal); N88.2 Stricture and stenosis of cervix uteri; I25.2 Old myocardial infarction; Z53.8 Procedure and treatment not carried out for other reasons; I25.10 Atherosclerotic heart disease of native coronary artery without angina pectoris; I48.0 Paroxysmal atrial fibrillation; Z79.01 Long term (current) use of anticoagulants; Z95.2 Presence of prosthetic heart valve; D64.9 Anemia, unspecified; I10 Essential (primary) hypertension; M19.90 Unspecified osteoarthritis, unspecified site
CPT/HCPCS: 36415; 85610; A9270-GY; J1100; J1240; J2250; J2405; J2704; J3010

== ENCOUNTER 2017-03-06 12:13 | Emergency (ER) | payer MEDICARE ==
[2017-03-06] MEDS ORDERED: NS 0.9% 1000 ML* 1,000 ML IV ONE (12:43)
--- OUTSIDE RECORDS SUMMARY | 2017-03-06 12:45 | XMS REPORT ---
:1930 External Reference #:[id number] Author Organization [facility] Address [address] [place] [address] Phone [phone] Care Team Providers Name Role Phone Susy Quevedo Primary Care Physician Unavailable Payers Type Date Identification Numbers Payment Provider Subscriber Medicare Primary Policy Number: [id number] Medicare [place] Veronica Sherwood PayID: [id number] [address] [address] [place] [address] Problems Description No Information Family History Date Family Member(s) Problem(s) Comments Father due to Stroke () Mother due to Heart Disease () First Daughter A&W Second Daughter A&W Social History Type Date Description Comments Education Highest level completed, 12th grade Marital Status Lives With Diet Healthy, Well Balanced Occupation Retired Cigarette Use Never Smoked Cigarettes ETOH Use Denies alcohol use Recreational Drug Use Denies Drug Use Smoking Patient has never smoked Daily Caffeine Consumes on average 1 cup of coffee per day Exercise Type/Frequency Exercises sporadically Seat Belt/Car Seat Always uses seat belt Currently Active Patient is currently not sexually active STD's No STD History Allergies, Adverse Reactions, Alerts Date Description Reaction Status Severity Comments 10/10/2016 NKDA active Medications Medication Date Status Form Strength Qnty SIG Indications Ordering Provider Amiodarone HCL 00// Active Tablets 100mg 1 po qd Unknown 0000 Calcium 500 +D 00/ Active Tablets 500-400mg- 1 po qd Unknown 0000 Unit Colace 00/ Active Capsules 100mg one Unknown 0000 capsule by mouth, up to three times a day as needed Multivitamin 00/00/ Active Tablets 1 po qd Unknown Adult 0000 Potassium / Active Capsules 10Meq 1 by Unknown Chloride ER 0000 ER mouth every day Vitamin B-12 / Active Tablets 1000mcg 1 by Unknown 0000 mouth every day Carvedilol / Active Tablets 3.125mg 1 po bid Unknown 0000 Ferrousul / Active Tablets 325(65Fe) 1 po qd Unknown 0000 mg Folic Acid / Active Tablets 1mg 1 by Unknown 0000 mouth every day Simvastatin / Active Tablets 40mg take one Unknown 0000 tablet by mouth at bedtime Aspir-Low / Active Tablets DR 81mg 1 po qd Unknown 0000 Eliquis / Active Tablets 5mg take one Unknown 0000 tablet by mouth twice a day Nitroglycerin / Active Tablets 0.4mg prn Unknown 0000 Sub Furosemide / Active Tablets 40mg 1 by Unknown 0000 mouth every day Cyanocobalamin / Active Tablets 1000mcg 1 po qd Unknown 0000 Sub Amlodipine / Hx Tablets 5mg 1 by Unknown Besylate 0000 - mouth 10/09/ every day 2016 Jantoven / Hx Tablets 5mg 1 po qd Unknown 0000 - 2016 Vital Signs Date Vital Result Comment 02/25/2017 BP Systolic 142 mmHg BP Diastolic 78 mmHg Height 62 inches 5'2" Weight 221.00 lb BMI (Body Mass Index) 40.4 kg/m2 3 Parity 2 01/23/2017 BP Systolic 122 mmHg BP Diastolic 58 mmHg Height 62 inches 5'2" Weight 222.00 lb BMI (Body Mass Index) 40.6 kg/m2 3 Parity 2 12/26/2016 BP Systolic 128 mmHg BP Diastolic 62 mmHg Body Temperature 98.0 F Heart Rate 76 /min Respiratory Rate 12 /min Height 62 inches 5'2" Weight 225.00 lb BMI (Body Mass Index) 41.1 kg/m2 3 Parity 3 10/10/2016 BP Systolic 120 mmHg BP Diastolic 68 mmHg Body Temperature 98.9 F Heart Rate 120 /min Respiratory Rate 12 /min Height 62 inches 5'2" Weight 227.00 lb BMI (Body Mass Index) 41.5 kg/m2 3 Parity 3 08/08/2016 BP Systolic 144 mmHg BP Diastolic 66 mmHg Height 62 inches 5'2" Weight 230.00 lb BMI (Body Mass Index) 42.1 kg/m2 3 Parity 3 Results Test Date Test Result H/L Range Note Protime 12/28/2016 Inr 1.79 High 0.89-1.11 CBC Auto Diff 12/26/2016 White Blood Count 5.7 10^3/uL 3.5-10.8 Red Blood Count 2.87 10^6/uL Low 4.0-5.4 Hemoglobin 9.2 g/dL Low 12.0-16.0 Hematocrit 28 % Low 35-47 Mean Corpuscular Volume 96 fL 80-97 Mean Corpuscular Hemoglobin 32 pg High 27-31 Mean Corpuscular HGB Conc 33 g/dL 31-36 Red Cell Distribution Width 15 % 10.5-15 Platelet Count 183 10^3/uL 150-450 Mean Platelet Volume 8 um3 7.4-10.4 Abs Neutrophils 3.7 10^3/uL 1.5-7.7 Abs Lymphocytes 1.1 10^3/uL 1.0-4.8 Abs Monocytes 0.6 10^3/uL 0-0.8 Abs Eosinophils 0.2 10^3/uL 0-0.6 Abs Basophils 0.1 10^3/uL 0-0.2 Abs Nucleated RBC 0 10^3/uL Granulocyte % 65.8 % 38-83 Lymphocyte % 19.5 % Low 25-47 Monocyte % 9.9 % High 1-9 Eosinophil % 3.5 % 0-6 Basophil % 1.3 % 0-2 Nucleated Red Blood Cells % 0.1 Protime 12/26/2016 Inr 1.77 High 0.89-1.11 Laboratory test finding 12/26/2016 PTT (Aptt) <pending> Comp Metabolic Panel 12/26/2016 Sodium 140 mmol/L 133-145 Potassium 3.8 mmol/L 3.5-5.0 Chloride 102 mmol/L 101-111 Co2 Carbon Dioxide 31 mmol/L 22-32 Anion Gap 7 mmol/L 2-11 Glucose 109 mg/dL High 70-100 Blood Urea Nitrogen 18 mg/dL 6-24 Creatinine 1.51 mg/dL High 0.51-0.95 BUN/Creatinine Ratio 11.9 8-20 Calcium 8.8 mg/dL 8.6-10.3 Total Protein 6.3 g/dL Low 6.4-8.9 Albumin 3.7 g/dL 3.2-5.2 Globulin 2.6 g/dL 2-4 Albumin/Globulin Ratio 1.4 1-3 Total Bilirubin 0.40 mg/dL 0.2-1.0 Alkaline Phosphatase 64 U/L 34-104 Alt 8 U/L 7-52 Ast 15 U/L 13-39 Egfr Non- 32.7 >60 Egfr 42.0 >60 1 Type And Screen 12/26/2016 Patient Blood Type O Positive Antibody Screen NEGATIVE CBC Auto Diff 10/10/2016 White Blood Count 5.9 10^3/uL 3.5-10.8 Red Blood Count 3.50 10^6/uL Low 4.0-5.4 Hemoglobin 10.9 g/dL Low 12.0-16.0 Hematocrit 34 % Low 35-47 Mean Corpuscular Volume 96 fL 80-97 Mean Corpuscular Hemoglobin 31 pg 27-31 Mean Corpuscular HGB Conc 33 g/dL 31-36 Red Cell Distribution Width 14 % 10.5-15 Platelet Count 160 10^3/uL 150-450 Mean Platelet Volume 8 um3 7.4-10.4 Abs Neutrophils 3.7 10^3/uL 1.5-7.7 Abs Lymphocytes 1.3 10^3/uL 1.0-4.8 Abs Monocytes 0.8 10^3/uL 0-0.8 Abs Eosinophils 0.1 10^3/uL 0-0.6 Abs Basophils 0 10^3/uL 0-0.2 Abs Nucleated RBC 0 10^3/uL Granulocyte % 62.3 % 38-83 Lymphocyte % 22.1 % Low 25-47 Monocyte % 12.8 % High 1-9 Eosinophil % 2.1 % 0-6 Basophil % 0.7 % 0-2 Nucleated Red Blood Cells % 0.1 Comp Metabolic Panel 10/10/2016 Sodium 140 mmol/L 133-145 Potassium 4.1 mmol/L 3.5-5.0 Chloride 102 mmol/L 101-111 Co2 Carbon Dioxide 30 mmol/L 22-32 Anion Gap 8 mmol/L 2-11 Glucose 95 mg/dL 70-100 Blood Urea Nitrogen 20 mg/dL 6-24 Creatinine 1.47 mg/dL High 0.51-0.95 BUN/Creatinine Ratio 13.6 8-20 Calcium 9.1 mg/dL 8.6-10.3 Total Protein 6.7 g/dL 6.4-8.9 Albumin 3.9 g/dL 3.2-5.2 Globulin 2.8 g/dL 2-4 Albumin/Globulin Ratio 1.4 1-3 Total Bilirubin 0.60 mg/dL 0.2-1.0 Alkaline Phosphatase 67 U/L 34-104 Alt 9 U/L 7-52 Ast 15 U/L 13-39 Egfr Non- 33.7 >60 Egfr 43.3 >60 2 1 Because ethnic data is not always readily available, this report includes an eGFR for both -Americans and non- Americans. The National Kidney Disease Education Program (NKDEP) does not endorse the use of the MDRD equation for patients that are not between the ages of 18 and 70, are , have extremes of body size, muscle mass, or nutritional status, or are non- or non-. According to the National Kidney Foundation, irrespective of diagnosis, the stage of the disease is based on the level of kidney function: Stage Description GFR(mL/min/1.73 m(2)) 1 Kidney damage with normal or decreased GFR 90 2 Kidney damage with mild decrease in GFR 60-89 3 Moderate decrease in GFR 30-59 4 Severe decrease in GFR 15-29 5 Kidney failure <15 (or dialysis) 2 Because ethnic data is not always readily available, this report includes an eGFR for both -Americans and non- Americans. The National Kidney Disease Education Program (NKDEP) does not endorse the use of the MDRD equation for patients that are not between the ages of 18 and 70, are , have extremes of body size, muscle mass, or nutritional status, or are non- or non-. According to the National Kidney Foundation, irrespective of diagnosis, the stage of the disease is based on the level of kidney function: Stage Description GFR(mL/min/1.73 m(2)) 1 Kidney damage with normal or decreased GFR 90 2 Kidney damage with mild decrease in GFR 60-89 3 Moderate decrease in GFR 30-59 4 Severe decrease in GFR 15-29 5 Kidney failure <15 (or dialysis) Procedures Date CPT Code Description Status 02/25/2017 90326 Echography Transvaginal Completed 12/28/2016 36136 Hysteroscopy,D&C Completed 03/11/2016 Bone Mineral Density Test Completed 03/11/2009 Mammogram Completed 11/12/2002 73319 DO Not Use After 350989 Completed Encounters Type Date Location Provider CPT E/M Dx Office Visit 02/25/2017 11:00a [place] [address] N84.0 Office Visit 01/23/2017 1:00p [place] [address] N84.0 Office Visit 12/26/2016 10:00a [place] [address] Z01.818 N84.0 Z86.74 Z95.2 Office Visit 10/10/2016 9:00a [place] [address] Z01.818 N84.0 J44.9 Z95.2 Office Visit 08/08/2016 2:00p [place] [address] N84.0 Office Visit 11/12/2002 8:45a [facility] Dannie Retana M.D. 92268 [phone] Plan of Care No Information Available
--- NOTE | 2017-03-06 13:13 | RAD ---
INDICATION: Palpitations. COMPARISON: Comparison is made with a prior chest x-ray study from October 22, 2016. TECHNIQUE: A portable view of the chest was obtained. FINDINGS: The patient is status poststernotomy and aortic valve surgery. The heart is mildly enlarged and unchanged from the prior study. The lungs are clear. No pleural effusion is seen. IMPRESSION: POSTSURGICAL CHANGES AND MILD CARDIOMEGALY, UNCHANGED.
[2017-03-06] MEDS ORDERED: Diltiazem IV* 5 MG/ML 5 ML VIAL (for loading dose/IV Push) (25 MG) IV SLOW PU ONE (13:20)
[2017-03-06 13:52] LABS: ABS Basophils 0 10^3/ul (0-0.2); ABS Eosinophils 0.2 10^3/ul (0-0.6); ABS Monocytes 0.6 10^3/ul (0-0.8); ABS Neutrophils 4.8 10^3/ul (1.5-7.7); ABS Nucleated RBC 0 10^3/ul; Eosinophil % 2.5 % (0-6); Hematocrit 30 % (35-47); Hemoglobin 10.2 g/dl (12.0-16.0); Lymphocyte % 15.7 % (25-47); Mean Corpuscular HGB Conc 34 g/dl (31-36); Mean Corpuscular Hemoglobin 31 pg (27-31); Mean Corpuscular Volume 93 fL (80-97); Mean Platelet Volume 8 um3 (7.4-10.4); Nucleated Red Blood Cells % 0; Platelet Count 143 10^3/ul (150-450); Red Blood Count 3.25 10^6/ul (4.0-5.4); Red Cell Distribution Width 14 % (10.5-15); White Blood Count 6.6 10^3/ul (3.5-10.8)
[2017-03-06 14:03] LABS: INR 1.59 (0.77-1.02)
[2017-03-06 14:09] LABS: EGFR Non-African American 40.3 (>60)
--- NOTE | 2017-03-06 14:22 | ED ---
Tom Scott Angela, scribed for Addie Nieves MD on 03/06/17 at 1256 . 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 Her palpitations are described as fast heart beating. Pt reports that at onset of her palpitations, she was sitting down. She denies chest pain, chest pressure, SOB, LE edema, abd pain. Pt notes she intermittently feels dizzy, but this has not changed since onset of her palpitations. Pt notes she has had this before and she usually takes medications for the rapid afib, but if it doesn't work cardioversion is performed. The last time the pt had palpitations was in October 2016, where she had cardioversion and a stent placed in her RCA. 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 Cisneros. Pt states she has been cardioverted 7 times. Pt is on amiodarone. Pt last ate today at 08:00, she had water and oatmeal for breakfast. - History of Current Complaint Chief Complaint: EDDysrhythmPalp Time Seen by Provider: 03/06/17 12:43 Hx Obtained From: Patient Onset/Duration: Sudden Onset, Lasting Hours, Still Present Timing: Constant Severity Initially: Moderate Severity Currently: Severe Character: Fast Aggravating: Nothing Alleviating: Nothing Associated Signs & Symptoms: Negative Related History: Similar Episode/Dx as - October 2016, where she had a cardioversion and a RCA stent placed - Allergy/Home Medications Allergies/Adverse Reactions: Allergies Allergy/AdvReac Type Severity Reaction Status Date / Time No Known Allergies Allergy Verified 12/28/16 10:20 Home Medications: Home Medications Cyanocobalamin TAB* [Vitamin B12 TAB*] 1,000 mcg PO DAILY 03/06/17 [History Confirmed 03/06/17] Hydrocortisone (Topical) [Cortaid Maximum Strength] 1 % TOPICAL BID 03/06/17 [ History Confirmed 03/06/17] Ketoconazole 2 % CREAM (NF) [Nizoral 2% CREAM (NF)] 1 applic TOPICAL DAILY 03/06 [History Confirmed 03/06/17] LoraTADine TAB(NF) [Claritin 10 MG TAB(NF)] 10 mg PO DAILY 03/06/17 [History Confirmed 03/06/17] PMH/Surg Hx/FS Hx/Imm Hx Endocrine/Hematology History: Reports: Hx Anticoagulant Therapy, Hx Anemia Denies: Hx Diabetes, Hx Thyroid Disease Cardiovascular History: Reports: Hx Congestive Heart Failure, Hx Coronary Artery Disease, Hx Hypercholesterolemia, Hx Hypertension - ON MEDS, Hx Peripheral Vascular Disease, Hx Syncope, Hx Valvular Heart Disease - Aortic Valvle replacement 2012 Denies: Hx Angina, Hx Pacemaker/ICD Respiratory History: Denies: Hx Asthma, Hx Chronic Bronchitis - bronchitis in 2014, Hx Chronic Obstructive Pulmonary Disease (COPD) GI History: Reports: Hx Irritable Bowel Denies: Hx Gastrointestinal Bleed, Hx Hiatal Hernia, Hx Ulcer History: Denies: Hx Kidney Stones, Hx Renal Disease Musculoskeletal History: Reports: Hx Arthritis - GENERALIZED, Hx Back Problems, Other Musculoskeletal History - HAMMER TOE LEFT SECOND TOE Denies: Hx Osteoporosis Sensory History: Reports: Hx Cataracts - LENS IMPLANTS 2011, Hx Contacts or Glasses - glasses, Hx Vision Problem Denies: Hx Hearing Aid Opthamlomology History: Reports: Hx Cataracts - LENS IMPLANTS 2011, Hx Contacts or Glasses - glasses, Hx Vision Problem Neurological History: Denies: Hx Dementia, Hx Transient Ischemic Attacks (TIA) Psychiatric History: Denies: Hx Panic Disorder - Cancer History Hx Chemotherapy: No Hx Radiation Therapy: No - Surgical History Surgery Procedure, Year, and Place: AORTIC valve replacement, 2012,. , 1964, [facility] [place]ar[place], [place] [facility]. cardiac catherization with cardiac stent to [facility] October 2016. cardioversions 2014,2015, 08/2016 Hx Anesthesia Reactions: No - Immunization History Date of Influenza Vaccine: 12/25 Immunizations Up to Date: Yes Infectious Disease History: No Infectious Disease History: Denies: Hx Clostridium Difficile, Hx Hepatitis, Hx Human Immunodeficiency Virus (HIV), Hx of Known/Suspected MRSA, Hx Shingles, Hx Tuberculosis, Hx Known/ Suspected VRE, Hx Known/Suspected VRSA, History Other Infectious Disease, Traveled Outside the [place] in Last 30 Days - Family History Known Family History: Positive: Hypertension - Social History Occupation: Retired Lives: With Family Alcohol Use: None Hx Substance Use: No Substance Use Type: Reports: None Hx Tobacco Use: No Smoking Status (MU): Never Smoked Tobacco Have You Smoked in the Last Year: No Review of Systems Negative: Fever, Chills Positive: Palpitations. Negative: Chest Pain Negative: Shortness Of Breath Negative: Abdominal Pain Negative: Edema Skin: Negative Neurological: Other - intermittent dizziness Psychological: Normal All Other Systems Reviewed And Are Negative: Yes Physical Exam - Summary Physical Exam Summary: Appearance: Ill-appearing, mild, no pain distress, Well-nourished, afib with RVR 120's-140's, no decrease with valsalva. Skin: Warm, color reflects adequate perfusion Head: Normal Head/Face inspection Eyes: Conjunctiva clear ENT: Normal inspection Neck: Supple, no JVD, no nodes, no bruits Respiratory: Lungs clear, Normal breath sounds, no respiratory distress Cardio: rapid afib, No murmur, pulses normal, brisk capillary refill Abdomen: soft, nontender Musculoskeletal: Strength Intact/ ROM intact. No calf tenderness. No edema. Neuro: Alert, muscle tone normal, facial symmetry, speech normal, sensory/motor intact Psychological: Normal Triage Information Reviewed: Yes Vital Signs On Initial Exam: Initial Vitals Temp Pulse Resp BP Pulse Ox 97.5 F 147 20 144/98 95 03/06/17 12:15 03/06/17 12:15 03/06/17 12:15 03/06/17 12:15 03/06/17 12:15 Vital Signs Reviewed: Yes Procedures - Additional Procedures Additional Procedures: cardioversion/defib - conscious sedation for cardioversion. Pt consent was obtained. Pt was given versed 2.5 mg IV and fentanyl 25 mcgs IV. Cardioverted with 120 Joules succesfully to sinus rhythm rate 61, bp 161/70. Pt was sedated, remained arousable to verbal stimuli. tolerated procedure without any complications. Oxygen 2 L NC was maintained and O2 sat was [address] Thompson present throughout the procedure. Diagnostics - Vital Signs Vital Signs Temp Pulse Resp BP Pulse Ox 03/06/17 12:39 106 20 98 03/06/17 12:37 163/87 03/06/17 12:15 97.5 F 147 20 144/98 95 - Laboratory Lab Results: Lab Results 03/06/17 03/06/17 03/06/17 Range/Units 13:43 13:43 13:43 WBC (3.5-10.8) 10^3/ul RBC (4.0-5.4) 10^6/ul Hgb (12.0-16.0) g/dl Hct (35-47) % MCV (80-97) fL MCH (27-31) pg MCHC (31-36) g/dl RDW (10.5-15) % Plt Count (150-450) 10^3/ul MPV (7.4-10.4) um3 Neut % (Auto) (38-83) % Lymph % (Auto) (25-47) % Lipscomb % (Auto) (1-9) % Eos % (Auto) (0-6) % Baso % (Auto) (0-2) % Absolute Neuts (auto) (1.5-7.7) 10^3/ul Absolute Lymphs (auto) (1.0-4.8) 10^3/ul Absolute Monos (auto) (0-0.8) 10^3/ul Absolute Eos (auto) (0-0.6) 10^3/ul Absolute Basos (auto) (0-0.2) 10^3/ul Absolute Nucleated RBC 10^3/ul Nucleated RBC % INR (Anticoag Therapy) 1.59 H (0.77-1.02) APTT 34.3 (26.0-36.3) seconds D-Dimer, Quantitative < 200 (Less Than 230) ng/mL Sodium 139 (133-145) mmol/L Potassium 3.8 (3.5-5.0) mmol/L Chloride 105 (101-111) mmol/L Carbon Dioxide 28 (22-32) mmol/L Anion Gap 6 (2-11) mmol/L BUN 26 H (6-24) mg/dL Creatinine 1.26 H (0.51-0.95) mg/dL Est GFR ( Amer) 51.8 (>60) Est GFR (Non-Af Amer) 40.3 (>60) BUN/Creatinine Ratio 20.6 H (8-20) Glucose 105 H (70-100) mg/dL Lactic Acid (0.5-2.0) mmol/L Calcium 8.3 L (8.6-10.3) mg/dL Magnesium 2.1 (1.9-2.7) mg/dL Total Bilirubin 0.40 (0.2-1.0) mg/dL AST 15 (13-39) U/L ALT 7 (7-52) U/L Alkaline Phosphatase 52 (34-104) U/L Total Creatine Kinase 53 (10-223) U/L CK-MB (CK-2) 1.3 (0.6-6.3) ng/mL Troponin I 0.03 (<0.04) ng/mL B-Natriuretic Peptide 291 H ( - 100) pg/mL Total Protein 6.1 L (6.4-8.9) g/dL Albumin 3.4 (3.2-5.2) g/dL Globulin 2.7 (2-4) g/dL Albumin/Globulin Ratio 1.3 (1-3) TSH Pending Thyroxine (T4) Pending 03/06/17 03/06/17 Range/Units 13:43 13:43 WBC 6.6 (3.5-10.8) 10^3/ul RBC 3.25 L (4.0-5.4) 10^6/ul Hgb 10.2 L (12.0-16.0) g/dl Hct 30 L (35-47) % MCV 93 (80-97) fL MCH 31 (27-31) pg MCHC 34 (31-36) g/dl RDW 14 (10.5-15) % Plt Count 143 L (150-450) 10^3/ul MPV 8 (7.4-10.4) um3 Neut % (Auto) 73.1 (38-83) % Lymph % (Auto) 15.7 L (25-47) % Lipscomb % (Auto) 8.4 (1-9) % Eos % (Auto) 2.5 (0-6) % Baso % (Auto) 0.3 (0-2) % Absolute Neuts (auto) 4.8 (1.5-7.7) 10^3/ul Absolute Lymphs (auto) 1.0 (1.0-4.8) 10^3/ul Absolute Monos (auto) 0.6 (0-0.8) 10^3/ul Absolute Eos (auto) 0.2 (0-0.6) 10^3/ul Absolute Basos (auto) 0 (0-0.2) 10^3/ul Absolute Nucleated RBC 0 10^3/ul Nucleated RBC % 0 INR (Anticoag Therapy) (0.77-1.02) APTT (26.0-36.3) seconds D-Dimer, Quantitative (Less Than 230) ng/mL Sodium (133-145) mmol/L Potassium (3.5-5.0) mmol/L Chloride (101-111) mmol/L Carbon Dioxide (22-32) mmol/L Anion Gap (2-11) mmol/L BUN (6-24) mg/dL Creatinine (0.51-0.95) mg/dL Est GFR ( Amer) (>60) Est GFR (Non-Af Amer) (>60) BUN/Creatinine Ratio (8-20) Glucose (70-100) mg/dL Lactic Acid 0.6 (0.5-2.0) mmol/L Calcium (8.6-10.3) mg/dL Magnesium (1.9-2.7) mg/dL Total Bilirubin (0.2-1.0) mg/dL AST (13-39) U/L ALT (7-52) U/L Alkaline Phosphatase (34-104) U/L Total Creatine Kinase (10-223) U/L CK-MB (CK-2) (0.6-6.3) ng/mL Troponin I (<0.04) ng/mL B-Natriuretic Peptide ( - 100) pg/mL Total Protein (6.4-8.9) g/dL Albumin (3.2-5.2) g/dL Globulin (2-4) g/dL Albumin/Globulin Ratio (1-3) TSH Thyroxine (T4) Result Diagrams: 03/06/17 13:43 03/06/17 13:43 Lab Statement: Any lab studies that have been ordered have been reviewed, and results considered in the medical decision making process. - Radiology Chest XR Xray Interpretation: No Acute Changes - IMPRESSION: Postsurgical changes and mild cardiomegaly, unchanged. Dr. Nieves has reviewed this radiology report. Radiology Interpretation Completed By: Radiologist - EKG 12:45 Cardiac Rate: Tachycardia EKG Rhythm: Atrial Flutter - at 131 bpm EKG Interpretation: Nl IV CT. Prolonged QTc 514. Negative axis -6. Non-specific changes. EKG Comparison: Other - compared with previous EKG on 10/22/16, rhythm has changed is now atrial flutter. 15:53 Cardiac Rate: Bradycardia EKG Rhythm: Sinus Bradycardia - at 55 bpm EKG Interpretation: Normal AV. Normal IV. Normal QTc. Normal axis. EKG Comparison: Other - Compared to prior EKG done today at 12:45, pt is now in sinus bradycardia. Re-Evaluation - Re-Evaluation First Eval Re-Evaluation Time: 14:13 Change: Unchanged Comment: Heart rate is 116 after Diltiazem. Blood pressure is 123/72. Pt currently denies chest pain or SOB. Second Eval Re-Evaluation Time: 15:03 Change: Unchanged Comment: Dr. Thompson is present in the room with the pt. Third Eval Re-Evaluation Time: 15:13 Change: Unchanged Comment: Dr. Thompson is going to cardiovert the pt. Fourth Eval Re-Evaluation Time: 15:40 Change: Improved - cardioversion completed, pt converted to SR. See procedure note. Fifth Eval Re-Evaluation Time: 16:30 Change: Improved Comment: Heart rate is 55 bpm. Pt is sitting up speaking in full sentences. She states she is ready to go home. Blood pressure is 121/57. Sixth + Eval Re-Evaluation Time: 17:00 - retentive of gingerale and sandwich. ready for DC Change: Improved Course/Dx - Course Course Of Treatment: Pt medications reviewed this visit. High blood pressure noted. EKG shows atrial flutter at 131 bpm, normal IV conduction time. Prolonged QTc 514. Negative axis -6. Non-specific changes. Compared with previous EKG on 10/22/16, rhythm has changed is now atrial flutter. Chest XR reveals postsurgical changes and mild cardiomegaly, unchanged. No effect on heart rate with carotid massage. No effect on heart rate with Valsava maneuver. I discussed pt care with the nurse from Dr. Thompson's services who reports Dr. Thompson is scrubbed in. The nurse will make Dr. Thompson aware of the pt. On re-eval at 14:13 - heart rate is 116 after Diltiazem. Blood pressure is 123/ 72. Pt currently denies chest pain or SOB. [15:03] - Dr. Thompson is present in room with the pt. [15: 15] - I performed conscious sedation for cardioversion. Obtained pt consent. pt was given versed 2.5 mg IV and fentanyl 25 mcgs IV. Cardioverted with 120 Joules succesfully to sinus rhythm rate 61 bpm, blood pressure 161/70. Pt was sedated, remained arousable to verbal stimuli. Pt tolerated procedure well without any complications. Oxygen 2 L NC was maintained and O2 sat was 100% throughout the procedure. Dr. Thompson present throughout the procedure. [15:47] I spoke with Dr. Thompson, she ordered a second EKG and a dose of potassium after cardioversion. Second EKG shows sinus bradycardia at 55 bpm, normal AV IV CT, normal QTc, normal axis. Compared to previous EKG done today, pt is now in sinus bradycardia. On re-eval at 16:30, heart rate is 55 bpm. Pt is sitting up speaking in full sentences. She states she is ready to go home. Blood pressure is 121/57. - Diagnoses Differential Diagnosis/HQI/PQRI: Positive: Congestive Heart Failure, Coronary Artery Disease, Pulmonary Embolism Provider Diagnoses: Encounter for cardioversion procedure, Atrial fibrillation with rapid ventricular response - Physician Notifications Discussed Care Of Patient With: RN from Dr. Thompson's services Time Discussed With Above Provider: 13:28 Instructed by Provider To: MD Will See In ED - I discussed pt care with the nurse from Dr. Thompson's services who reports Dr. Thompson is scrubbed in. The nurse will make Dr. Thompson aware of the pt. - Critical Care Time Critical Care Time: 30-74 min - 30 minutes Discharge - Discharge Plan Condition: Stable Disposition: HOME Patient Education Materials: A-fib (Atrial Fibrillation) (ED), Procedural Sedation (ED) Referrals: Talib Cisneros MD [Medical Doctor] - 3 Days Susy Quevedo MD [Primary Care Provider] - Additional Instructions: You were cardioverted today with 120 Joules on the first attempt with Dr. Thompson. You were given versed 2.5mg and fentanyl 25mcgs with good sedation for the procedure. Return to the ER if you have any new or worsening symptoms. The documentation as recorded by the Tom harrington Angela accurately reflects the service I personally performed and the decisions made by , Addie Nieves MD.
[2017-03-06] MEDS ORDERED: Midazolam* 1 MG/ML 5 ML VIAL (5 MG) SLOW PUSH ONE (15:14)
[2017-03-06] MEDS ORDERED: fentaNYL* 50 MCG/ML 2 ML VIAL (100 MCG VIAL) IV SLOW PU ONE (15:15)
[2017-03-06] MEDS ORDERED: Potassium Chlor TAB* 10 MEQ TAB.ER PO ONE (15:46)
[2017-03-06 16:53] VITALS: BP 137/73
--- NOTE | 2017-03-06 22:11 | CARD ---
CC: Dr. Talib Cisneros; Primary Care Physician, Dr. Quevedo * ELECTRICAL CARDIOVERSION: DATE OF PROCEDURE: 03/06/17 - EMERGENCY DEPT PROCEDURE: Electrical cardioversion. INDICATION: Atrial fibrillation. DESCRIPTION OF PROCEDURE: Her rhythm was verified by ECG and telemetry in the ED. The patient has been taking Eliquis and she verified that she had not missed any doses. The indications, risks, and benefits of the procedure were discussed with the patient in the presence of her daughter and she was amenable to proceeding. The patient had AP patches placed across the chest wall and a time-out was called. Following that she received a total of 2.5 mg of Versed and 25 mcg of fentanyl for sedation. Using AP patches, 120 joules was delivered across the chest wall with successful cardioversion to normal sinus rhythm. The patient was hemodynamically stable throughout the procedure. Currently, her blood pressure is 160/70, she is in sinus rhythm in the 60s. Oxygen saturation on 2 L nasal cannula 98%. A 12-lead ECG is pending. CONCLUSION: Successful cardioversion from atrial fibrillation to normal sinus rhythm and no complications. [id number]/[facility] #: [id number] [facility]
== END 2017-03-06 16:50 | disposition home or self-care (01) ==
LOC: ED 12:13
DX: I48.91 Unspecified atrial fibrillation (principal); Z79.01 Long term (current) use of anticoagulants; R00.2 Palpitations; Z86.79 Personal history of other diseases of the circulatory system
CPT/HCPCS: 36415; 71010; 80053; 82550; 82553; 83605; 83735; 83880; 84436; 84443; 84484; 85025; 85379; 85610; 85730; 93005; 96374; 96375; 99283; A9270-GY; J2250; J3010

== ENCOUNTER 2017-05-28 08:14 | Day surgery (SDC) | payer MEDICARE ==
[2017-05-28] MEDS ORDERED: Diltiazem IV* 5 MG/ML 5 ML VIAL (for loading dose/IV Push) (25 MG) IV SLOW PU ONE (08:38)
[2017-05-28] MEDS ORDERED: NS 0.9% 1000 ML* 1,000 ML IV SCH (08:45)
[2017-05-28 08:52] LABS: ABS Basophils 0 10^3/ul (0-0.2); ABS Eosinophils 0.2 10^3/ul (0-0.6); ABS Lymphocytes 1.1 10^3/ul (1.0-4.8); ABS Monocytes 0.6 10^3/ul (0-0.8); ABS Nucleated RBC 0 10^3/ul; Eosinophil % 4.2 % (0-6); Hematocrit 32 % (35-47); Hemoglobin 10.5 g/dl (12.0-16.0); Lymphocyte % 22.1 % (25-47); Mean Corpuscular HGB Conc 33 g/dl (31-36); Mean Corpuscular Hemoglobin 31 pg (27-31); Mean Corpuscular Volume 94 fL (80-97); Mean Platelet Volume 8 um3 (7.4-10.4); Nucleated Red Blood Cells % 0; Platelet Count 163 10^3/ul (150-450); Red Blood Count 3.37 10^6/ul (4.0-5.4); Red Cell Distribution Width 15 % (10.5-15); White Blood Count 4.9 10^3/ul (3.5-10.8)
[2017-05-28 09:02] LABS: INR 1.69 (0.77-1.02)
[2017-05-28 09:05] LABS: EGFR Non-African American 38.2 (>60)
--- NOTE | 2017-05-28 09:43 | RAD ---
Indication: Tachycardia. Single frontal view of the chest performed at 0903 hours was reviewed. Comparison is made with previous exam dated March 06, 2017. Cardiomegaly is noted. Patient is status post tracer thoracotomy. Lung green demonstrate no pleural fluid, pneumonia or pneumothorax. IMPRESSION: NO ACTIVE CARDIOPULMONARY DISEASE IS NOTED. PATIENT STATUS POST CHANGED STERNAL THORACOTOMY.
[2017-05-28 09:49] LABS: Urine Appearance Clear; Urine Blood Negative (Negative); Urine Color Colorless; Urine Ketones Negative (Negative); Urine Protein Negative (Negative); Urine Specific Gravity 1.004 (1.010-1.030); Urine Urobilinogen Negative (Negative)
[2017-05-28 14:38] VITALS: BP 178/104
[2017-05-28] MEDS ORDERED: Flumazenil* 0.1 MG/ML 5 ML MDV ONE (15:42)
[2017-05-28] MEDS ORDERED: Midazolam* 1 MG/ML 10 ML VIAL (10 MG) ONE (15:43)
[2017-05-28] MEDS ORDERED: fentaNYL* 50 MCG/ML 5 ML VIAL (250 MCG VIAL) ONE (15:43)
[2017-05-28] MEDS ORDERED: Naloxone* 0.4 MG/ML 10 ML VIAL ONE (15:43)
--- NOTE | 2017-05-28 16:27 | ED ---
Silvino Scott Stephanie, scribed for Mick Onofre MD on 05/28/17 at 0840 . Palpitations / Dysrhythmia - HPI Summary HPI Summary: The pt is an 86 y/o F presenting to the ED with c/o palpitations that occurred at 06:30 today. The pt states she woke with the palpitations. The pt has a hx of a-fib. She denies CP and SOB. - History of Current Complaint Chief Complaint: EDDysrhythmPalp Time Seen by Provider: 05/28/17 08:28 Hx Obtained From: Patient Onset/Duration: Sudden Onset, Lasting Hours - 2, Still Present Timing: Constant Aggravating: Nothing Alleviating: Nothing - Allergy/Home Medications Allergies/Adverse Reactions: Allergies Allergy/AdvReac Type Severity Reaction Status Date / Time No Known Allergies Allergy Verified 05/28/17 08:17 Home Medications: Home Medications Calcium Carbonate/Vitamin D3 [Calcium 600-Vit D3 400 Tablet] 1 tab PO DAILY [History Confirmed 05/28/17] Hydrocortisone 1% CREAM(NF) 1 applic TOPICAL BID 05/28/17 [History Confirmed ] Multivitamins/Minerals TAB* [Theragran/minerals TAB*] 1 tab PO DAILY 05/28/17 [ History Confirmed 05/28/17] PMH/Surg Hx/FS Hx/Imm Hx Endocrine/Hematology History: Reports: Hx Anticoagulant Therapy, Hx Anemia Denies: Hx Diabetes, Hx Thyroid Disease Cardiovascular History: Reports: Hx Congestive Heart Failure, Hx Coronary Artery Disease, Hx Hypercholesterolemia, Hx Hypertension - ON MEDS, Hx Peripheral Vascular Disease, Hx Syncope, Hx Valvular Heart Disease - Aortic Valvle replacement 2012, Other Cardiovascular Problems/Disorders - aortic valve replacement Denies: Hx Angina, Hx Pacemaker/ICD Respiratory History: Denies: Hx Asthma, Hx Chronic Bronchitis - bronchitis in 2014, Hx Chronic Obstructive Pulmonary Disease (COPD) GI History: Reports: Hx Irritable Bowel Denies: Hx Gastrointestinal Bleed, Hx Hiatal Hernia, Hx Ulcer History: Denies: Hx Kidney Stones, Hx Renal Disease Musculoskeletal History: Reports: Hx Arthritis - GENERALIZED, Hx Back Problems, Other Musculoskeletal History - HAMMER TOE LEFT SECOND TOE Denies: Hx Osteoporosis Sensory History: Reports: Hx Cataracts - LENS IMPLANTS 2011, Hx Contacts or Glasses - glasses, Hx Vision Problem Denies: Hx Hearing Aid Opthamlomology History: Reports: Hx Cataracts - LENS IMPLANTS 2011, Hx Contacts or Glasses - glasses, Hx Vision Problem Neurological History: Denies: Hx Dementia, Hx Transient Ischemic Attacks (TIA) Psychiatric History: Denies: Hx Panic Disorder - Cancer History Hx Chemotherapy: No Hx Radiation Therapy: No - Surgical History Surgery Procedure, Year, and Place: AORTIC valve replacement, 2012,. , 1964, [facility]. Cataract surgery, 2011, [facility] [place] [facility]. cardiac catherization with cardiac stent to [facility] October 2016. cardioversions 2014,2015, 08/2016 Hx Anesthesia Reactions: No - Immunization History Date of Influenza Vaccine: 12/25 Infectious Disease History: No Infectious Disease History: Denies: Hx Clostridium Difficile, Hx Hepatitis, Hx Human Immunodeficiency Virus (HIV), Hx of Known/Suspected MRSA, Hx Shingles, Hx Tuberculosis, Hx Known/ Suspected VRE, Hx Known/Suspected VRSA, History Other Infectious Disease, Traveled Outside the in Last 30 Days - Family History Known Family History: Positive: Hypertension - Social History Occupation: Retired Lives: With Family Alcohol Use: None Hx Substance Use: No Substance Use Type: Reports: None Hx Tobacco Use: No Smoking Status (MU): Never Smoked Tobacco Have You Smoked in the Last Year: No Review of Systems Positive: Fever Positive: Palpitations. Negative: Chest Pain Negative: Shortness Of Breath All Other Systems Reviewed And Are Negative: Yes Physical Exam - Summary Physical Exam Summary: General: well-appearing, no pain distress Skin: warm, color reflects adequate perfusion, dry Head: normal Eyes: EOMI, RC ENT: normal Neck: supple, nontender Respiratory: CTA, breath sounds present Cardiovascular: tackycardic, irregularly irregular rhythm Abdomen: soft, nontender Bowel: present Musculoskeletal: normal, strength/ROM intact Neurological: normal, sensory/motor intact, A&O x3 Psychological: affect/mood appropriate Triage Information Reviewed: Yes Vital Signs On Initial Exam: Initial Vitals Temp Pulse Resp BP Pulse Ox 97.3 F 125 16 146/87 96 05/28/17 08:17 05/28/17 08:17 05/28/17 08:17 05/28/17 08:17 05/28/17 08:17 Vital Signs Reviewed: Yes Diagnostics - Vital Signs Vital Signs Temp Pulse Resp BP Pulse Ox 05/28/17 08:17 97.3 F 125 16 146/87 96 - Laboratory Lab Results: Lab Results 05/28/17 05/28/17 05/28/17 Range/Units 08:35 08:35 08:35 WBC (3.5-10.8) 10^3/ul RBC (4.0-5.4) 10^6/ul Hgb (12.0-16.0) g/dl Hct (35-47) % MCV (80-97) fL MCH (27-31) pg MCHC (31-36) g/dl RDW (10.5-15) % Plt Count (150-450) 10^3/ul MPV (7.4-10.4) um3 Neut % (Auto) (38-83) % Lymph % (Auto) (25-47) % [place] % (Auto) (0-7) % Eos % (Auto) (0-6) % Baso % (Auto) (0-2) % Absolute Neuts (auto) (1.5-7.7) 10^3/ul Absolute Lymphs (auto) (1.0-4.8) 10^3/ul Absolute Monos (auto) (0-0.8) 10^3/ul Absolute Eos (auto) (0-0.6) 10^3/ul Absolute Basos (auto) (0-0.2) 10^3/ul Absolute Nucleated RBC 10^3/ul Nucleated RBC % INR (Anticoag Therapy) 1.69 H (0.77-1.02) APTT 33.4 (26.0-36.3) seconds Sodium 138 (133-145) mmol/L Potassium 3.6 (3.5-5.0) mmol/L Chloride 102 (101-111) mmol/L Carbon Dioxide 30 (22-32) mmol/L Anion Gap 6 (2-11) mmol/L BUN 20 (6-24) mg/dL Creatinine 1.32 H (0.51-0.95) mg/dL Est GFR ( Amer) 49.1 (>60) Est GFR (Non-Af Amer) 38.2 (>60) BUN/Creatinine Ratio 15.2 (8-20) Glucose 115 H (70-100) mg/dL Lactic Acid (0.5-2.0) mmol/L Calcium 9.1 (8.6-10.3) mg/dL Magnesium 1.9 (1.9-2.7) mg/dL Total Bilirubin 0.40 (0.2-1.0) mg/dL AST 13 (13-39) U/L ALT 7 (7-52) U/L Alkaline Phosphatase 65 (34-104) U/L Total Creatine Kinase 53 (10-223) U/L CK-MB (CK-2) 1.0 (0.6-6.3) ng/mL Troponin I 0.01 (<0.04) ng/mL B-Natriuretic Peptide 273 H ( - 100) pg/mL Total Protein 6.6 (6.4-8.9) g/dL Albumin 3.6 (3.2-5.2) g/dL Globulin 3.0 (2-4) g/dL Albumin/Globulin Ratio 1.2 (1-3) TSH 4.53 (0.34-5.60) mcIU/mL Urine Color Urine Appearance Urine pH (5-9) Ur Specific [place] (1.010-1.030) Urine Protein (Negative) Urine Ketones (Negative) Urine Blood (Negative) Urine Nitrate (Negative) Urine Bilirubin (Negative) Urine Urobilinogen (Negative) Ur Leukocyte Esterase (Negative) Urine Glucose (Negative) 05/28/17 05/28/17 05/28/17 Range/Units 08:35 08:35 09:15 WBC 4.9 (3.5-10.8) 10^3/ul RBC 3.37 L (4.0-5.4) 10^6/ul Hgb 10.5 L (12.0-16.0) g/dl Hct 32 L (35-47) % MCV 94 (80-97) fL MCH 31 (27-31) pg MCHC 33 (31-36) g/dl RDW 15 (10.5-15) % Plt Count 163 (150-450) 10^3/ul MPV 8 (7.4-10.4) um3 Neut % (Auto) 61.6 (38-83) % Lymph % (Auto) 22.1 L (25-47) % [place] % (Auto) 11.2 H (0-7) % Eos % (Auto) 4.2 (0-6) % Baso % (Auto) 0.9 (0-2) % Absolute Neuts (auto) 3.0 (1.5-7.7) 10^3/ul Absolute Lymphs (auto) 1.1 (1.0-4.8) 10^3/ul Absolute Monos (auto) 0.6 (0-0.8) 10^3/ul Absolute Eos (auto) 0.2 (0-0.6) 10^3/ul Absolute Basos (auto) 0 (0-0.2) 10^3/ul Absolute Nucleated RBC 0 10^3/ul Nucleated RBC % 0 INR (Anticoag Therapy) (0.77-1.02) APTT (26.0-36.3) seconds Sodium (133-145) mmol/L Potassium (3.5-5.0) mmol/L Chloride (101-111) mmol/L Carbon Dioxide (22-32) mmol/L Anion Gap (2-11) mmol/L BUN (6-24) mg/dL Creatinine (0.51-0.95) mg/dL Est GFR ( Amer) (>60) Est GFR (Non-Af Amer) (>60) BUN/Creatinine Ratio (8-20) Glucose (70-100) mg/dL Lactic Acid 1.0 (0.5-2.0) mmol/L Calcium (8.6-10.3) mg/dL Magnesium (1.9-2.7) mg/dL Total Bilirubin (0.2-1.0) mg/dL AST (13-39) U/L ALT (7-52) U/L Alkaline Phosphatase (34-104) U/L Total Creatine Kinase (10-223) U/L CK-MB (CK-2) (0.6-6.3) ng/mL Troponin I (<0.04) ng/mL B-Natriuretic Peptide ( - 100) pg/mL Total Protein (6.4-8.9) g/dL Albumin (3.2-5.2) g/dL Globulin (2-4) g/dL Albumin/Globulin Ratio (1-3) TSH (0.34-5.60) mcIU/mL Urine Color Colorless Urine Appearance Clear Urine pH 7.0 (5-9) Ur Specific [place] 1.004 L (1.010-1.030) Urine Protein Negative (Negative) Urine Ketones Negative (Negative) Urine Blood Negative (Negative) Urine Nitrate Negative (Negative) Urine Bilirubin Negative (Negative) Urine Urobilinogen Negative (Negative) Ur Leukocyte Esterase Negative (Negative) Urine Glucose Negative (Negative) 05/28/17 Range/Units 11:30 WBC (3.5-10.8) 10^3/ul RBC (4.0-5.4) 10^6/ul Hgb (12.0-16.0) g/dl Hct (35-47) % MCV (80-97) fL MCH (27-31) pg MCHC (31-36) g/dl RDW (10.5-15) % Plt Count (150-450) 10^3/ul MPV (7.4-10.4) um3 Neut % (Auto) (38-83) % Lymph % (Auto) (25-47) % [place] % (Auto) (0-7) % Eos % (Auto) (0-6) % Baso % (Auto) (0-2) % Absolute Neuts (auto) (1.5-7.7) 10^3/ul Absolute Lymphs (auto) (1.0-4.8) 10^3/ul Absolute Monos (auto) (0-0.8) 10^3/ul Absolute Eos (auto) (0-0.6) 10^3/ul Absolute Basos (auto) (0-0.2) 10^3/ul Absolute Nucleated RBC 10^3/ul Nucleated RBC % INR (Anticoag Therapy) (0.77-1.02) APTT (26.0-36.3) seconds Sodium (133-145) mmol/L Potassium (3.5-5.0) mmol/L Chloride (101-111) mmol/L Carbon Dioxide (22-32) mmol/L Anion Gap (2-11) mmol/L BUN (6-24) mg/dL Creatinine (0.51-0.95) mg/dL Est GFR ( Amer) (>60) Est GFR (Non-Af Amer) (>60) BUN/Creatinine Ratio (8-20) Glucose (70-100) mg/dL Lactic Acid (0.5-2.0) mmol/L Calcium (8.6-10.3) mg/dL Magnesium (1.9-2.7) mg/dL Total Bilirubin (0.2-1.0) mg/dL AST (13-39) U/L ALT (7-52) U/L Alkaline Phosphatase (34-104) U/L Total Creatine Kinase (10-223) U/L CK-MB (CK-2) (0.6-6.3) ng/mL Troponin I 0.01 (<0.04) ng/mL B-Natriuretic Peptide ( - 100) pg/mL Total Protein (6.4-8.9) g/dL Albumin (3.2-5.2) g/dL Globulin (2-4) g/dL Albumin/Globulin Ratio (1-3) TSH (0.34-5.60) mcIU/mL Urine Color Urine Appearance Urine pH (5-9) Ur Specific [place] (1.010-1.030) Urine Protein (Negative) Urine Ketones (Negative) Urine Blood (Negative) Urine Nitrate (Negative) Urine Bilirubin (Negative) Urine Urobilinogen (Negative) Ur Leukocyte Esterase (Negative) Urine Glucose (Negative) Result Diagrams: 05/28/17 08:35 05/28/17 08:35 Lab Statement: Any lab studies that have been ordered have been reviewed, and results considered in the medical decision making process. - Radiology CXR Xray Interpretation: No Acute Changes Radiology Interpretation Completed By: Radiologist - NO ACTIVE CARDIOPULMONARY DISEASE IS NOTED. PATIENT STATUS POST CHANGED STERNAL THORACOTOMY. ED physician reviewed report and agrees. - EKG 08:28 Cardiac Rate: Tachycardia EKG Rhythm: Atrial Fibrillation - 117 BPM Course/Dx - Course Course Of Treatment: BP noted and advised to follow up with PCP. DR JIMÉNEZ, CARDIOLOGY, SAW PATIENT IN ED. HE WILL TAKE THE PATIENT TO THE ICU FOR CARDIOVERSION. - Diagnoses Provider Diagnoses: HTN (hypertension), Rapid atrial fibrillation Discharge - Sign-Out/Discharge Documenting (check all that apply): Discharge - PATIENT GOING DIRECTLY TO ICU WITH DR JIMÉNEZ FOR CARDIOVERSION - Discharge Plan Condition: Stable Disposition: HOME - Billing Disposition and Condition Condition: STABLE Disposition: HOME The documentation as recorded by the Silvino harrington Stephanie accurately reflects the service I personally performed and the decisions made by , Mick Onofre MD.
--- NOTE | 2017-05-29 06:01 | CARD ---
CARDIOVERSION NOTE: DATE OF PROCEDURE: 05/28/17 - [facility] CATH PROCEDURE: Cardioversion. INDICATION: Atrial fibrillation. HISTORY: The patient is an 86-year-old female with a history of paroxysmal atrial fibrillation and history of coronary artery disease, who noticed today that she was having rapid heart beat, typical of her usual atrial fibrillation. She came to the emergency room. On arrival to the emergency room, she was in atrial fibrillation with a heart rate of 130. No other significant symptoms. Laboratory studies were unremarkable. Cardioversion was recommended. DESCRIPTION OF PROCEDURE: The patient was in a fasting state. Informed consent had been obtained prior to the procedure. All labs were reviewed. The patient was given 4 mg of Versed and 50 mcg of fentanyl for conscious sedation. The patient was cardioverted with 150 joules of synchronized biphasic energy. The patient converted to normal sinus rhythm. The patient did have a 4.5 second asystolic period before resumption of the normal sinus rhythm. Otherwise , there were no complications. The patient will increase her amiodarone from 100 mg a day to 200 mg a day in a hopes of suppression of her atrial fibrillation. I will see the patient in followup in 3 to 4 weeks. [id number]/[facility] #: [id number] MTDD
--- NOTE | 2017-07-02 09:20 | HP ---
ADMISSION HISTORY AND PHYSICAL: DATE OF ADMISSION: 05/28/2017. INDICATION FOR ADMISSION: Atrial fibrillation. HISTORY OF PRESENT ILLNESS: The patient is an 86-year-old female with a history of paroxysmal atrial fibrillation, aortic valve replacement in 2012. The patient called our office earlier in the day saying that she was in atrial fibrillation and not feeling well. She was brought to the hospital for a cardioversion. The patient denied any angina. She denied any shortness of breath. She has some mild dizziness, no syncopal episodes. She has been complaining of a little bit more fatigue. PAST MEDICAL HISTORY: Significant for aortic valve disease with aortic valve replacement, hypertension, paroxysmal atrial fibrillation. PAST SURGICAL HISTORY: Aortic valve replacement in 2012. OUTPATIENT MEDICATIONS: 1. Amiodarone 100 mg a day. 2. Eliquis 5 mg b.i.d. 3. Potassium 10 mEq daily. 4. Coreg 3.125 mg b.i.d. 5. Simvastatin 40 mg a day. 6. Lasix 40 mg a day. 7. Aspirin 81 mg a day. 8. Multiple supplements. ALLERGIES: No known drug allergies. PHYSICAL EXAMINATION VITAL SIGNS: Height 5 feet 6 inches, weight 218 pounds. Heart rate is 80 and irregular, blood pressure 160/72, respiratory rate 16. HEENT: Sclerae anicteric. Oropharynx is pink without erythema. Carotids are 2 + with soft bilateral bruits. JVD is normal. Thyroid is normal. LUNGS: Clear to auscultation. CARDIAC EXAM: S1, S2 with a 2/6 systolic ejection murmur. No diastolic murmur. ABDOMEN: Soft, nontender, nondistended with normoactive bowel sounds. EXTREMITIES: Showed no edema. DIAGNOSTIC STUDIES/LAB DATA: EKG demonstrates atrial flutter at a rate of 117 beats per minute. IMPRESSION: This is an 86-year-old female with a history of paroxysmal atrial fibrillation, aortic valve replacement, who was feeling poorly and was found to be in atrial flutter. RECOMMENDATION: The patient will undergo a cardioversion. The patient's amiodarone will increase from 100 mg a day to 200 mg a day. The patient will be seen in followup in the near future. [id number]/[facility] #: [id number] [facility]
== END 2017-05-28 13:46 | disposition home or self-care (01) ==
LOC: ED 08:14 → CHICATH 13:46 → ICU 13:46
PROVIDERS: ATTEND Specialist
DX: I48.91 Unspecified atrial fibrillation (principal); I25.10 Atherosclerotic heart disease of native coronary artery without angina pectoris; Z79.82 Long term (current) use of aspirin; Z79.899 Other long term (current) drug therapy; Z95.2 Presence of prosthetic heart valve; I10 Essential (primary) hypertension; E78.00 Pure hypercholesterolemia, unspecified; I73.9 Peripheral vascular disease, unspecified; Z79.01 Long term (current) use of anticoagulants
CPT/HCPCS: 36415; 71045; 80053; 81003; 82550; 82553; 83605; 83735; 83880; 84443; 84484; 85025; 85610; 85730; 92960; 93005; 99156; 99157; 99285; J2250; J2310; J3010

== ENCOUNTER 2018-04-24 11:07 | Emergency (ER) | payer MEDICARE ==
--- NOTE | 2018-04-24 13:04 | UC ---
Upper Extremity HPI - HPI Summary HPI Summary: 87 y/o female presents to the urgent care c/o Pt stepped on a piece of ice this AM and now reports R wrist, R shoulder pain. Pt was advised Dr. Gil to come here. - History of Current Complaint Chief Complaint: UCUpperExtremity Stated Complaint: ARM,HAND INJURY Time Seen by Provider: 04/24/18 13:02 Hx Obtained From: Patient Pain Intensity: 5 - Allergies/Home Medications Allergies/Adverse Reactions: Allergies Allergy/AdvReac Type Severity Reaction Status Date / Time No Known Allergies Allergy Verified 04/24/18 11:54 PMH/Surg Hx/FS Hx/Imm Hx Other History Of: Anticoagulant Therapy - Surgical History Surgical History: Yes Surgery Procedure, Year, and Place: AORTIC valve replacement, 2012,. , 1963, [facility]. Cataract surgery, 2011, [facility] [place] [facility] [place]. cardiac catherization with cardiac stent to [facility] [place] October 2016. cardioversions 2014,2015, 08/2016 - Family History Known Family History: Positive: Hypertension - Social History Alcohol Use: None Substance Use Type: None Smoking Status (MU): Never Smoked Tobacco Have You Smoked in the Last Year: No - Immunization History Most Recent Influenza Vaccination: season Most Recent Tetanus Shot: 09/2012 Most Recent Pneumonia Vaccination: 2001 Physical Exam - Summary Physical Exam Summary: Vital Signs Reviewed: Yes General: Well-Appearing, No Pain Distress, Well-Nourished - female adolescent w/ o any apparent distress Eyes: Positive: Conjunctiva Clear - PERRLA, EOMI ENT: Positive: Normal ENT inspection, Hearing grossly normal, Pharynx normal, TMs normal, Uvula midline Neck: Positive: Supple, Nontender, No Lymphadenopathy Respiratory: Positive: Chest non-tender, Lungs clear, Normal breath sounds, No respiratory distress Cardiovascular: Positive: RRR, No Murmur, Pulses Normal, Brisk Capillary Refill Abdomen Description: Positive: Nontender, No Organomegaly, Soft. Negative: CVA Tenderness (R), CVA Tenderness (L) Bowel Sounds: Positive: Present Musculoskeletal: Positive: Strength Intact, Other: Neurological Exam: Normal Musculoskeletal: Positive: Wrist: the R wrist is without obvious asymmetry or deformity when compared to the L wrist. No surface trauma, open wounds, swelling, or obvious deformity. No overlying erythema or warmth. No bony crepitus. Point tenderness over the thenar eminence and ventral side of wrist. No scaphoid fullness or tenderness to direct palpation or axial load. Decreased ROM due to pain. Motor/sensory function of ulnar, radial, median nerves intact. Ulnar and radial pulses intact. Psychological Exam: Normal Skin Exam: Normal Triage Information Reviewed: Yes Vital Signs: Initial Vital Signs Temp 98.3 F 04/24/18 11:57 Pulse 62 04/24/18 11:57 Resp 16 04/24/18 11:57 BP 0/0 04/24/18 11:57 Pulse Ox 99 04/24/18 11:57 Upper Extremity Course/Dx - Differential Dx/Diagnosis Differential Diagnosis/HQI/PQRI: Arthritis, Fracture (Closed), Strain, Sprain Provider Diagnosis: Fracture of radial head, right, closed Discharge - Sign-Out/Discharge Documenting (check all that apply): Patient Departure - d/c home All imaging exams completed and their final reports reviewed: No Studies - Discharge Plan Condition: Stable Disposition: HOME Patient Education Materials: Wrist Fracture in Adults (ED) Referrals: Galo Montez MD [Medical Doctor] - 1 Day Susy Quevedo MD [Primary Care Provider] - 2 Days Additional Instructions: 1-Please take medications as directed to alleviate pain and swelling. 2-Please apply ice, keep your wrist immobilized with the splint. Avoid heavy lifting or strenuous exercise. keep arm elevated. 3- Please f/u with Orthopedic Dr Montez in 1-2 days for further evaluation and treatment on possible radial fracture. - Billing Disposition and Condition Condition: STABLE Disposition: Home
[2018-04-24 14:27] VITALS: BP 140/80
== END 2018-04-24 14:40 | disposition home or self-care (01) ==
LOC: UCEAST 11:07
DX: S52.121A Displaced fracture of head of right radius, initial encounter for closed fracture (principal); M25.511 Pain in right shoulder; W22.8XXA Striking against or struck by other objects, initial encounter; Y92.9 Unspecified place or not applicable
CPT/HCPCS: 99212; G0463

== ENCOUNTER 2018-04-30 12:55 | Emergency (ER) | payer MEDICARE ==
--- NOTE | 2018-04-30 13:27 | ED ---
Lower Extremity - HPI Summary HPI Summary: This pt is an 87 y[place]o [place] [facility] [place] worsening left hip pain for the last 2 days. Pt reports she fell on 04/24/18 and sustained a right wrist fracture. She states she didn't feel left hip pain until 04/27 while using her cane. For the last two days her left hip pain has been worsening and notes today was the worst. She reports she can now hardly step on her left leg secondary to pain and it is difficult to bear weight. PMHx includes aorta replaced, cardiac stent. Pt is on Eliquis BID. - History of Current Complaint Chief Complaint: EDHipPelvisInjury Stated Complaint: WEAKNESS/UNABLE TO WALK Time Seen by Provider: 04/30/18 13:10 Hx Obtained From: Patient Mechanism Of Injury: Fall From A Standing Position - on 04/24/18 Onset of Pain: Days - 2 Onset/Duration: Days - 2 Severity Currently: Severe Pain Intensity: 9 Pain Scale Used: 0-10 Numeric Timing: Lasting Days Location: Is Discrete @ - left hip Associated Signs And Symptoms: Positive: Negative Aggravating Factor(s): Weight Bearing Alleviating Factor(s): Nothing Able to Bear Weight: Yes - but with pain - Allergies/Home Medications Allergies/Adverse Reactions: Allergies Allergy/AdvReac Type Severity Reaction Status Date / Time No Known Allergies Allergy Verified 04/30/18 13:03 Home Medications: Home Medications Atorvastatin* [Lipitor*] 40 mg PO DAILY 04/30/18 [History Confirmed 04/30/18] PMH/Surg Hx/FS Hx/Imm Hx Endocrine/Hematology History: Reports: Hx Anticoagulant Therapy, Hx Anemia Denies: Hx Diabetes, Hx Thyroid Disease Cardiovascular History: Reports: Hx Congestive Heart Failure, Hx Coronary Artery Disease, Hx Hypercholesterolemia, Hx Hypertension, Hx Myocardial Infarction, Hx Peripheral Vascular Disease, Hx Syncope, Hx Valvular Heart Disease - Aortic Valvle replacement 2012, Other Cardiovascular Problems/ Disorders - aortic valve replacement Denies: Hx Angina, Hx Pacemaker/ICD Respiratory History: Denies: Hx Asthma, Hx Chronic Bronchitis - bronchitis in 2014, Hx Chronic Obstructive Pulmonary Disease (COPD) GI History: Reports: Hx Irritable Bowel Denies: Hx Gastrointestinal Bleed, Hx Hiatal Hernia, Hx Ulcer History: Denies: Hx Kidney Stones, Hx Renal Disease Musculoskeletal History: Reports: Hx Arthritis - GENERALIZED, Hx Back Problems, Other Musculoskeletal History - HAMMER TOE LEFT SECOND TOE Denies: Hx Osteoporosis Sensory History: Reports: Hx Cataracts - LENS IMPLANTS 2011, Hx Contacts or Glasses - glasses, Hx Vision Problem Denies: Hx Hearing Aid Opthamlomology History: Reports: Hx Cataracts - LENS IMPLANTS 2011, Hx Contacts or Glasses - glasses, Hx Vision Problem Neurological History: Denies: Hx Dementia, Hx Transient Ischemic Attacks (TIA) Psychiatric History: Denies: Hx Panic Disorder - Cancer History Hx Chemotherapy: No Hx Radiation Therapy: No - Surgical History Surgery Procedure, Year, and Place: AORTIC valve replacement, 2012,. , 1964, [facility]. Cataract surgery, 2011, [facility], [place]. cardiac catherization with cardiac stent to RCA October 2016. cardioversions 2014,2015, 08/2016 Hx Anesthesia Reactions: No - Immunization History Date of Influenza Vaccine: 12/25 Infectious Disease History: No Infectious Disease History: Denies: Hx Clostridium Difficile, Hx Hepatitis, Hx Human Immunodeficiency Virus (HIV), Hx of Known/Suspected MRSA, Hx Shingles, Hx Tuberculosis, Hx Known/ Suspected VRE, Hx Known/Suspected VRSA, History Other Infectious Disease, Traveled Outside the in Last 30 Days - Family History Known Family History: Positive: Hypertension - Social History Alcohol Use: None Hx Substance Use: No Substance Use Type: Reports: None Hx Tobacco Use: No Smoking Status (MU): Never Smoked Tobacco Have You Smoked in the Last Year: No Review of Systems Negative: Fever, Chills Musculoskeletal: Other - POS: left hip pain All Other Systems Reviewed And Are Negative: Yes Physical Exam - Summary Physical Exam Summary: Appearance: Well-appearing, Well-nourished, lying in bed comfortable Skin: Warm, dry, no obvious rash Eyes: sclera anicteric, no conjunctival pallor ENT: mucous membranes moist Neck: deferred Respiratory: No signs of respiratory distress Cardiovascular: Appears well perfused, pulses are nml Abdomen: deferred Musculoskeletal: Left hip: there's not pain with rotation of the hip. Pt is unable to flex hip due to severe pain. No pain on longitudinal pressure on the left leg. Neurological: Awake and alert, mentation is normal, speech is fluent and appropriate Psychiatric: affect is normal, does not appear anxious or depressed Triage Information Reviewed: Yes Vital Signs On Initial Exam: Initial Vitals Temp Pulse Resp BP Pulse Ox 97.7 F 60 20 181/62 99 04/30/18 12:57 04/30/18 12:57 04/30/18 12:57 04/30/18 12:57 04/30/18 12:57 Vital Signs Reviewed: Yes Diagnostics - Vital Signs Vital Signs Temp Pulse Resp BP Pulse Ox 04/30/18 12:57 97.7 F 60 20 181/62 99 - Laboratory Result Diagrams: 04/30/18 13:25 04/30/18 13:25 Lab Statement: Any lab studies that have been ordered have been reviewed, and results considered in the medical decision making process. - Radiology Left hip and pelvis XR Radiology Interpretation Completed By: Radiologist Summary of Radiographic Findings: IMPRESSION: No evidence for fracture. If the patient's symptoms persist recommend follow-up imaging. Dr. Dahl has reviewed this report. Left femur XR Radiology Interpretation Completed By: Radiologist Summary of Radiographic Findings: IMPRESSION: Negative for LEFT femur fracture. Dr. Dahl has reviewed this report. Lumbar spine XR Radiology Interpretation Completed By: Radiologist Summary of Radiographic Findings: IMPRESSION: No radiographic evidence for lumbar sacral spine fracture or traumatic malalignment. Dr. Dahl has reviewed this report. Left knee XR Radiology Interpretation Completed By: Radiologist Summary of Radiographic Findings: IMPRESSION: #. Small joint effusion. #. Negative for fracture. #. Advanced chronic osteoarthritis. Dr. Dahl has reviewed this report. - CT CT of left lower extremity CT Interpretation Completed By: Radiologist Summary of CT Findings: IMPRESSION: Degenerative changes as described above without acute fracture or dislocation. Dr. Dahl has reviewed this report. - EKG 13:27 Cardiac Rate: NL - at 60 bpm EKG Rhythm: Sinus Rhythm Summary of EKG Findings: NSR at 60 BPM, P waves, QRS complex, and T waves are within normal limits, T waves and intervals are normal, no ischemic changes. This is a normal EKG Lower Extremity Course/Dx - Course Assessment/Plan: Pt is an 87 y/o female who presents progressively worsening left hip pain for the last 2 days after a fall on 04/24/18. She reports she can now hardly step on her left leg secondary to pain and it is difficult to bear weight. Left hip XR reveals no evidence for fracture. CT was ordered. CT of left lower extremity shows degenerative changes as described above without acute fracture or dislocation. Left femur, left knee, and lumbar spine x-rays are all negative for fractures. In the ED course the pt was given tylenol. Pt will be discharged home and is advised to take OTC medications for the pain. She is also advised to follow up with orthopedics if pain does not resolve. - Diagnoses Provider Diagnoses: Hip pain Discharge - Sign-Out/Discharge Documenting (check all that apply): Patient Departure - Discharge home Patient Received Moderate/Deep Sedation with Procedure: No - Discharge Plan Condition: Stable Disposition: HOME Patient Education Materials: Hip Pain (ED) Referrals: Galo Rogers MD [Medical Doctor] - Susy Quevedo MD [Primary Care Provider] - Additional Instructions: The fairly extensive x-rays and CT scans we did failed to show any bony fracture , and the onset of the pain in the days following a fall who be more consistent with a soft tissue injury such as a sprain or strain. For now you can bear weight and take OTC pain relievers as needed. It should start getting better over the next few days and weeks. If not you should see the orthopedic doctor. - Billing Disposition and Condition Condition: STABLE Disposition: Home - Attestation Statements Document Initiated by Marcos: Yes Documenting Scribe: Kerline Santos Provider For Whom Marcos is Documenting (Include Credential): Leeroy Dahl MD Scribe Attestation: Kerline Scott, scribed for Leeroy Dahl MD on 05/01/18 at 1254. Scribe Documentation Reviewed: Yes Provider Attestation: The documentation as recorded by the Kerline harrington accurately reflects the service I personally performed and the decisions made by me, Leeroy Dahl MD Status of Scribe Document: Viewed
[2018-04-30 13:43] LABS: Activated Partial Thrombo Time 31.5 seconds (26.0-36.3); INR 1.95 (0.77-1.02)
[2018-04-30 13:44] LABS: ABS Basophils 0 10^3/ul (0-0.2); ABS Eosinophils 0.1 10^3/ul (0-0.6); ABS Monocytes 0.7 10^3/ul (0-0.8); ABS Neutrophils 3.7 10^3/ul (1.5-7.7); ABS Nucleated RBC 0 10^3/ul; Eosinophil % 2.2 %; Hematocrit 29 % (35-47); Hemoglobin 9.8 g/dl (12.0-16.0); Lymphocyte % 17.6 %; Mean Corpuscular HGB Conc 33 g/dl (31-36); Mean Corpuscular Hemoglobin 31 pg (27-31); Mean Corpuscular Volume 94 fL (80-97); Mean Platelet Volume 7.4 fL (7.4-10.4); Nucleated Red Blood Cells % 0; Platelet Count 180 10^3/ul (150-450); Red Blood Count 3.13 10^6/ul (4.00-5.40); Red Cell Distribution Width 14 % (10.5-15); White Blood Count 5.6 10^3/ul (3.5-10.8)
[2018-04-30 13:57] LABS: Troponin I 0.01 ng/mL (<0.04)
[2018-04-30 14:00] LABS: Albumin 3.6 g/dL (3.2-5.2); Albumin/Globulin Ratio 1.3 (1-3); BUN/Creatinine Ratio 16.6 (8-20); Calcium 8.9 mg/dL (8.6-10.3); EGFR African American 34.6 (>60); EGFR Non-African American 28.6 (>60); Globulin 2.8 g/dL (2-4); Potassium 3.8 mmol/L (3.5-5.0); Total Bilirubin 0.4 mg/dL (0.2-1.0); Total Protein 6.4 g/dL (6.4-8.9)
[2018-04-30] MEDS ORDERED: Acetaminophen TAB* 325 MG PO ONE (18:33)
[2018-04-30 19:30] LABS: Urine Appearance Clear; Urine Bilirubin Negative (Negative); Urine Blood Negative (Negative); Urine Color Yellow; Urine Glucose Negative (Negative); Urine Ketones Negative (Negative); Urine Nitrite Negative (Negative); Urine Protein Negative (Negative); Urine Specific Gravity 1.008 (1.010-1.030); Urine Urobilinogen Negative (Negative)
[2018-04-30 19:37] VITALS: BP 219/74
== END 2018-04-30 19:37 | disposition home or self-care (01) ==
LOC: ED 12:55
DX: M25.552 Pain in left hip (principal); M25.462 Effusion, left knee; M17.12 Unilateral primary osteoarthritis, left knee; I25.10 Atherosclerotic heart disease of native coronary artery without angina pectoris; I11.0 Hypertensive heart disease with heart failure; Z79.01 Long term (current) use of anticoagulants; E78.00 Pure hypercholesterolemia, unspecified; Z95.2 Presence of prosthetic heart valve; Z95.5 Presence of coronary angioplasty implant and graft
CPT/HCPCS: 36415; 72100; 80053; 81003; 83605; 84484; 85025; 85610; 85730; 86850; 86900; 86901; 93005; 99283; A9270-GY

== ENCOUNTER 2018-05-04 05:40 | Inpatient (IN) | payer MEDICARE ==
--- OUTSIDE RECORDS SUMMARY | 2018-05-04 06:08 | XMS REPORT | Continuity of Care Document ---
:1930 External Reference #:[id number] Author Name Andriy Gomez Care Team Providers Name Role Phone Susy Quevedo MD Primary Care Physician Unavailable Payers Date Identification Numbers Payment Provider Subscriber Policy Number: [id number] [employer] Veronica Bhat Group Number: [id number] [address] PayID: [id number] [place] [address] Effective: 1995 Policy Number: [id number] Medicare Veronica Bhat Expires: 2017 PayID: [id number] [address] [place] [address] Advance Directives Description No Information Available Problems Date Description Provider Status Onset: 03/19/2013 Aortic valve disorder Talib Cisneros M.D. Active Onset: 03/19/2013 Atrial fibrillation Talib Cisneros M.D. Active Onset: 03/19/2013 Conduction disorder of the heart Talib Cisneros M.D. Active Family History Date Family Member(s) Observation Comments General Hypertension General Heart Disease General Cervical Cancer General Stroke General Cancer Father Stroke Father due to Stroke () Mother Hypertension Mother due to Hypertension () Mother Heart Disease First Brother Heart Disease Second Brother Heart Disease Third Brother Heart Disease Fourth Brother Heart Disease First Sister Heart Disease Second Sister Cancer, Cervical Social History Type Date Description Comments Sex Unknown Marital Status Lives With Spouse Occupation Retired Tobacco Use Start: Unknown Never Smoked Cigarettes ETOH Use Denies alcohol use Recreational Drug Use Denies Drug Use Tobacco Use Start: Unknown Patient has never smoked Smoking Status Reviewed: 04/25/18 Patient has never smoked Exercise Type/Frequency Exercises rarely Currently Active Patient is currently not sexually active Allergies, Adverse Reactions, Alerts Description No Known Drug Allergies Medications Medication Date Status Form Strength Qnty SIG Indications Ordering Provider Amiodarone HCL 05/29 Active Tablets 200mg 1 by mouth every day Marcela Cisneros M.D. Eliquis 10/17 Active Tablets 5mg 180ta 1 by mouth bs twice a day Marcela Cisneros M.D. Nitroglycerin 10/17 Active Tablets 0.4mg 25tab 1 sl q5mins Sub s x3 as needed Marcela Cisneros for chest [place] pain Potassium 06/04 Active Tablets 10Meq 90tab 1 tabdaily Talib Chloride ER /2012 ER s Marcela Cisneros M.D. Carvedilol 06/04 Active Tablets 3.125mg 180ta 1 po bid bs Marcela Cisneros M.D. Simvastatin Active Tablets 40mg 90tab 1 po qhs Stevano / s Susy thompson M.D. Furosemide Active Tablets 40mg 1 po qd Stevano / Susy thompson MD Aspirin Active Tablets 81mg 1 po qd Unknown /0000 One Daily For Active Tablets Women 50 1 po qd Unknown Women 50+A /0000 Dvanced Ferrous Sulfate Active Tablets 325(65Fe) 30tab 1 po qd Unknown /0000 mg s Folic Acid Active Tablets 1mg 90tab 1 po qd Unknown /0000 s Colace Active Capsules 100mg 180ca 1 po tid Unknown /0000 ps Calcium 600 + D Active Tablets 600-400mg 60tab 2 tablet po Unknown /0000 -Unit s daily Cyanocobalamin Active Tablets 1000mcg take one Unknown /0000 Sub capsule/table t daily sublingually Suprep Bowel 01/10 Hx Solution 17.5-3.13 1unit take David Harris Prep Kit -1.6GM/17 s according to Mickey, - 7ML kye BENJAMIN 04/24 physician's /2018 instructions the day before your procedure. split the dose as directed. Magnesium 01/10 Hx Solution 1.745GM/3 296ml Drink the David Harris Citrate 0ML entire bottle Mickey, - after dinner 04/24 two days before your procedure. Clopidogrel 10/17 Hx Tablets 75mg 180ta 1 by mouth Talib Bisulfate bs every day Omar Lara M.D. 04/09 Amlodipine 06/04 Hx Tablets 5mg 90tab 1 po qd Talib Besylate s Omar Lara M.D. 03/12 Warfarin Sodium 04/28 Hx Tablets 2mg 180ta 1-2 po daily Talib bs as directed Omar Lara M.D. 10/17 Ketoconazole 07/22 Hx Cream 2% 30gm 1 application ano daily c, - Radomir, 03/12.D. Anusol-HC 04/06 Hx Cream 2.5% 30gra apply tid prn ano ms c, - Radomir, 03/18.D. Benefiber 03/29 Hx Powder 1jar 1 table spoon 565.0 in 1 liter of c, - water bid Radomir, 03/11.D. Analpram-HC 03/29 Hx Cream 1-1% 1tube 1 application 565.0 ano tid c, - Radomir, 04/06.D. Chlorothiazide Hx Tablets 500mg 90tab 1 po qday Stevanovi /0000 s c, - Radomir, 03/12.D. Lisinopril Hx Tablets 5mg 90tab 1 po qd Stevanovi /0000 s c, - Radomir, 01/13.D. Propranolol ER Hx Tablets 80mg 90tab 1 po qday Stevanovi /0000 s c, - Radomir, 03/12.D. Niaspan ER Hx Tablets 500mg 90tab 1 tablet po Stevanovi /0000 ER s qday c, - Radomir, 10/12 M.D. Asa Hx 325mg 100un 1 po qd Stevanovi /0000 its c, - Radomir, 03/12 M.D. Amlodipine Hx Tablets 2.5mg 2 po qd (no Stevanovi Besylate /0000 longer c, - taking) Radomir, 04/09 Amiodarone HCL Hx Tablets 200mg 30tab 1/2 tab po qd Unknown /0000 s - 04/09 Cyanocobalamin Hx Solution 1000mcg/M 25ml 1.0 cc im q Unknown /0000 L month - 01/13 Meloxicam Hx Tablets 7.5mg 30tab 1 qd prn pain Unknown /0000 s - 11/27 Vitamin B-12 Hx Tablets 500mcg 30tab 2 by mouth Unknown /0000 s every day - 04/24 Amiodarone HCL Hx Tablets 100mg 2 by mouth Unknown /0000 every day - 05/29 Immunizations Description No Information Available Vital Signs Date Vital Result Comment 04/25/2018 10:31am Height 66 inches 5'6" Weight 194.00 lb Heart Rate 63 /min BP Systolic Sitting 126 mmHg BP Diastolic Sitting 66 mmHg Respiratory Rate 20 /min Pain Level 5 O2 % BldC Oximetry 95 % BMI (Body Mass Index) 31.3 kg/m2 01/09/2018 10:01am Height 66 inches 5'6" Weight 220.50 lb Heart Rate 62 /min BP Systolic 136 mmHg BP Diastolic 82 mmHg Respiratory Rate 16 /min Pain Level 0 O2 % BldC Oximetry 97 % BMI (Body Mass Index) 35.6 kg/m2 12/27/2017 10:15am Height 66 inches 5'6" Weight 220.00 lb Heart Rate 65 /min reg BP Systolic 120 mmHg BP Diastolic 68 mmHg Pain Level 0 O2 % BldC Oximetry 97 % BMI (Body Mass Index) 35.5 kg/m2 12/25/2017 9:37am Height 66 inches 5'6" Weight 218.00 lb Heart Rate 60 /min BP Systolic Sitting 124 mmHg BP Diastolic Sitting 92 mmHg Respiratory Rate 18 /min Body Temperature 97.1 F BMI (Body Mass Index) 35.2 kg/m2 06/20/2017 10:13am Height 66 inches 5'6" Weight 218.00 lb Heart Rate 62 /min BP Systolic Sitting 170 mmHg Rue lrg cuff BP Diastolic Sitting 80 mmHg Rue lrg cuff BP Systolic Standing 168 mmHg Rue lrg cuff BP Diastolic Standing 72 mmHg Rue lrg cuff Respiratory Rate 16 /min BMI (Body Mass Index) 35.2 kg/m2 Ejection Fraction 40-45% echo 10/11/2016 04/10/2017 10:00am Height 66 inches 5'6" Weight 223.00 lb with shoes Heart Rate 68 /min BP Systolic Sitting 150 mmHg Rue lrg cuff BP Diastolic Sitting 72 mmHg Rue lrg cuff BP Systolic Standing 162 mmHg Rue lrg cuff BP Diastolic Standing 76 mmHg Rue lrg cuff BMI (Body Mass Index) 36.0 kg/m2 Ejection Fraction 40-45% 11/11/2016-echo 12/05/2016 9:34am Height 66 inches 5'6" Weight 227.00 lb with shoes Heart Rate 72 /min BP Systolic Sitting 146 mmHg Lue lrg cuff BP Diastolic Sitting 72 mmHg Lue lrg cuff BP Systolic Standing 142 mmHg Lue lrg cuff BP Diastolic Standing 66 mmHg Lue lrg cuff Respiratory Rate 16 /min BMI (Body Mass Index) 36.6 kg/m2 Ejection Fraction 40-45% 11/07/2016-echo 10/23/2016 1:57pm Height 66 inches 5'6" Weight 221.00 lb w/ shoes Heart Rate 78 /min reg BP Systolic Sitting 102 mmHg Rue, lg cuff BP Diastolic Sitting 64 mmHg Rue, lg cuff Respiratory Rate 16 /min BMI (Body Mass Index) 35.7 kg/m2 Ejection Fraction 40-45% as of 10/11/16 echo 09/12/2016 8:15am Height 66 inches 5'6" Weight 233.00 lb with shoes Heart Rate 62 /min BP Systolic Sitting 120 mmHg Lue large cuff BP Diastolic Sitting 76 mmHg Lue large cuff BP Systolic Standing 116 mmHg Lue large cuff BP Diastolic Standing 74 mmHg Lue large cuff Respiratory Rate 16 /min BMI (Body Mass Index) 37.6 kg/m2 Ejection Fraction 55-60% echo 08/27/16 02/08/2016 1:26pm Height 66 inches 5'6" Weight 226.00 lb Heart Rate 60 /min BP Systolic Sitting 148 mmHg BP Diastolic Sitting 80 mmHg Respiratory Rate 18 /min Pain Level 8 BMI (Body Mass Index) 36.5 kg/m2 10/14/2015 11:46am Height 65.75 inches 5'5.75" Weight 234.00 lb w/ shoes Heart Rate 74 /min BP Systolic Sitting 140 mmHg Ra lg cuff BP Diastolic Sitting 84 mmHg Ra lg cuff BP Systolic Standing 144 mmHg Ra lg cuff BP Diastolic Standing 86 mmHg Ra lg cuff Respiratory Rate 16 /min BMI (Body Mass Index) 38.1 kg/m2 01/27/2015 12:01pm Height 65.75 inches 5'5.75" Weight 237.00 lb w/ shoes Heart Rate 76 /min reg BP Systolic Sitting 154 mmHg Rue, lg cuff BP Diastolic Sitting 86 mmHg Rue, lg cuff BP Systolic Standing 156 mmHg Rue BP Diastolic Standing 80 mmHg Rue Respiratory Rate 18 /min BMI (Body Mass Index) 38.5 kg/m2 Ejection Fraction 63% as of 02/20/13 echo 08/13/2014 12:40pm Height 65.75 inches 5'5.75" Weight 233.00 lb no shoes Heart Rate 82 /min BP Systolic Sitting 162 mmHg LA, Lg cuff BP Diastolic Sitting 78 mmHg LA, Lg cuff BP Systolic Standing 154 mmHg LA BP Diastolic Standing 70 mmHg LA Respiratory Rate 18 /min BMI (Body Mass Index) 37.9 kg/m2 Ejection Fraction 63% 02/20/2013 03/03/2014 10:04am Height 65.75 inches 5'5.75" Weight 228.00 lb w/shoes Heart Rate 72 /min BP Systolic Sitting 192 mmHg LA lg cuff BP Diastolic Sitting 90 mmHg LA lg cuff BP Systolic Standing 158 mmHg LA lg cuff BP Diastolic Standing 80 mmHg LA lg cuff Respiratory Rate 12 /min BMI (Body Mass Index) 37.1 kg/m2 01/22/2014 2:42pm Height 65.75 inches 5'5.75" Weight 242.00 lb Heart Rate 128 /min BP Systolic Sitting 140 mmHg Ra large cuff BP Diastolic Sitting 82 mmHg Ra large cuff BP Systolic Standing 140 mmHg Ra BP Diastolic Standing 78 mmHg Ra Respiratory Rate 18 /min BMI (Body Mass Index) 39.4 kg/m2 03/19/2013 10:18am Height 65.75 inches 5'5.75" Weight 230.00 lb Heart Rate 76 /min BP Systolic Sitting 142 mmHg Ra large cuff BP Diastolic Sitting 74 mmHg Ra large cuff BP Systolic Standing 140 mmHg Ra BP Diastolic Standing 64 mmHg Ra Respiratory Rate 16 /min BMI (Body Mass Index) 37.4 kg/m2 07/22/2009 2:16pm Weight 233.00 lb Heart Rate 72 /min BP Systolic Sitting 130 mmHg BP Diastolic Sitting 80 mmHg 04/21/2009 10:07am Height 65.5 inches 5'5.50" Weight 232.00 lb Heart Rate 76 /min BP Systolic Sitting 180 mmHg BP Diastolic Sitting 90 mmHg BMI (Body Mass Index) 38.0 kg/m2 03/29/2009 4:00pm Weight 232.00 lb Heart Rate 74 /min BP Systolic Sitting 140 mmHg BP Diastolic Sitting 90 mmHg Results Test Date Facility Test Result H/L Range Note Laboratory test 02/21/2018 [facility] SEE RESULT [address] [place] [address] [phone] Laboratory test 12/28/2014 [facility] Inr/Protime 3.66 High 0.78-1.[address] [place] [address] [phone] CBC Auto Diff 12/28/2014 [facility] White Blood 4.9 10^3/uL N 4.8-10.[address] [place] [address] [phone] Red Blood Count 3.83 10^6/uL Low 4.0-5.4 Hemoglobin 12.1 g/dL N 12.0-16.0 Hematocrit 37 % N 35-47 Mean Corpuscular Volume 96 fL N 80-97 Mean Corpuscular Hemoglobin 32 pg High 27-31 Mean Corpuscular HGB Conc 33 g/dL N 31-36 Red Cell Distribution Width 14 % N 10.5-15 Platelet Count 169 10^3/uL N 150-450 Mean Platelet Volume 8 um3 N 7.4-10.4 Abs Neutrophils 3.2 10^3/uL N 1.5-7.7 Abs Lymphocytes 1.0 10^3/uL N 1.0-4.8 Abs Monocytes 0.6 10^3/uL N 0-0.8 Abs Eosinophils 0.1 10^3/uL N 0-0.6 Abs Basophils 0 10^3/uL N 0-0.2 Abs Nucleated RBC 0 10^3/uL N Granulocyte % 65.1 % N 38-83 Lymphocyte % 20.3 % Low 25-47 Monocyte % 12.1 % High 1-9 Eosinophil % 1.6 % N 0-6 Basophil % 0.9 % N 0-2 Nucleated Red Blood Cells % 0 N Comp Metabolic Panel 12/28/2014 [facility] Sodium 133 mmol/L N 133-[address] [place] [address] [phone] Potassium 3.6 mmol/L N 3.5-5.0 Chloride 98 mmol/L Low 101-111 Co2 Carbon Dioxide 28 mmol/L N 22-32 Anion Gap 7 mmol/L N 2-11 Glucose 102 mg/dL High 70-100 Blood Urea Nitrogen 25 mg/dL High 6-24 Creatinine 1.58 mg/dL High 0.51-0.95 BUN/Creatinine Ratio 15.8 N 8-20 Calcium 8.9 mg/dL N 8.6-10.3 Total Protein 6.9 g/dL N 6.4-8.9 Albumin 3.7 g/dL N 3.2-5.2 Globulin 3.2 g/dL N 2-4 Albumin/Globulin Ratio 1.2 N 1-3 Total Bilirubin 0.50 mg/dL N 0.2-1.0 Alkaline Phosphatase 76 U/L N 34-104 Alt 10 U/L N 7-52 Ast 16 U/L N 13-39 Egfr Non- 31.2 N >60 Egfr 40.1 N >60 2 Laboratory test 12/28/2014 [facility] Magnesium 1.8 mg/dL Low 1.9-2.[address] [place] [address] [phone] Troponin-I (TnI) 0.00 ng/mL N <0.03 3 TSH (Thyroid Stim Horm) 2.86 ?IU/mL N 0.34-5.60 Laboratory test 01/25/2014 [facility] TSH (Thyroid 2.83 IU/mL N 0.34-5.[address] [place] [address] Horm) [phone] CBC No Diff 01/25/2014 [facility] White Blood 5.3 N 4.8-10.[address] Count 10^3/[place] [address] [phone] Red Blood Count 3.37 10^6/uL Low 4.0-5.4 Hemoglobin 10.5 g/dL Low 12.0-16.0 Hematocrit 33 % Low 35-47 Mean Corpuscular Volume 97 fL N 80-97 Mean Corpuscular Hemoglobin 31 pg N 27-31 Mean Corpuscular HGB Conc 32 g/dL N 31-36 Red Cell Distribution Width 15 % N 10.5-15 Platelet Count 131 10^3/uL Low 150-450 Mean Platelet Volume 7 um3 Low 7.4-10.4 Inr/Protime 01/25/2014 [facility] Inr 2.32 High 0.85-1.06 [address] [place], [place] [id number] [phone] Basic Metabolic 01/25/2014 [facility] Sodium 138 mmol/L N 133- 145 Panel [address] [place] [address] [phone] Potassium 2.7 mmol/L Low 3.5-5.0 5 Chloride 97 mmol/L Low 101-111 Co2 Carbon Dioxide 30 mmol/L N 22-32 Anion Gap 11 mmol/L N 2-11 Glucose 136 mg/dL High 70-100 Blood Urea Nitrogen 27 mg/dL High 6-24 Creatinine 1.68 mg/dL High 0.51-0.95 BUN/Creatinine Ratio 16.1 N 8-20 Calcium 8.8 mg/dL N 8.6-10.3 Egfr Non- 29.1 N >60 Egfr 37.4 N >60 6 Laboratory 12/07/2013 [facility] Inr 1.89 High 0.85-1.06 test finding [address] [place] [address] [phone] Laboratory 08/24/2013 [facility] Inr 1.99 High 0.85-1.06 test finding [address] [place] [phone] Laboratory 07/27/2013 [facility] Inr 1.96 High 0.85-1.06 test finding [address] [place] [address] [phone] Laboratory 07/06/2013 [facility] Inr 1.82 High 0.85-1.06 test finding [address] [place] [address] [phone] Laboratory 06/08/2013 [facility] Inr 3.57 High 0.85-1.06 test finding [address] [place] [address] [phone] Laboratory 05/25/2013 [facility] Inr 1.63 High 0.85-1.06 test finding [address] [place] [address] [phone] Laboratory 04/27/2013 [facility] Inr 2.48 High 0.85-1.06 test finding [address] [place] [address] [phone] Laboratory 03/30/2013 [facility] Inr 2.02 High 0.85-1.06 test finding [address] [place] [address] [phone] Inr/Protime 03/02/2013 Inr 2.05 High 0.85-1.06 7 Laboratory 02/02/2013 [facility] Inr 2.31 High 0.85-1.06 8 test finding [address] [place] [address] [phone] Laboratory 01/05/2013 [facility] Inr 2.30 High 0.87-0.97 test finding [address] [place] [address] [phone] Laboratory 12/08/2012 [facility] Inr 2.67 High 0.87-0.97 test finding [address] [place] [address] [phone] Laboratory 11/11/2012 [facility] Inr 2.42 High 0.87-0.97 test finding [address] [place] [address] [phone] Laboratory 10/20/2012 [facility] Inr 2.22 High 0.87-0.97 test finding [address] [place] [address] [phone] Laboratory 10/06/2012 [facility] Inr 1.82 High 0.87-0.97 test finding [address] [place] [address] [phone] Laboratory 09/22/2012 [facility] Inr 1.69 High 0.87-0.97 test finding [address] [place] [address] [phone] Laboratory 08/25/2012 [facility] Inr 1.89 High 0.87-0.97 test finding [address] [place] [address] [phone] Laboratory 07/28/2012 [facility] Inr 2.25 High 0.87-0.97 test finding [address] [place], [place] [phone] Laboratory 06/30/2012 [facility] Inr 2.30 High 0.87-0.97 test finding [address] [place] [address] [phone] Laboratory 06/09/2012 [facility] Inr 1.83 High 0.87-0.97 9 test finding [address] [place] [address] [phone] Laboratory 05/01/2010 [facility] Methylmalonic 0.43 Abnormal < =0.40 10 test finding [address] Acid nmol/[place] [address] L [phone] CBC With 05/01/2010 [facility] White Blood 5.7 4.8-10.8 Manual Diff [address] [place] [address] [phone] Red Cell Count 3.29 CUMM Low 4.2-5.4 Hemoglobin 10.1 g/dL Low 12.0-16.0 Hematocrit 30 % Low 35-47 Mean Corpuscular Volume 92 um3 79-97 Mean Corpuscular Hemoglob 31 pg 27-31 Mean Corpuscular HGB Cone 33 g/dL 32-36 Redcell Distribution WDTH 15 % 10.5-15 Platelet Count 185 CUMM 150-450 Mean Platelet Volume 7.8 um3 7.4-10.4 Polysegmented Neutrophil 62 % 38-83 Lymphocyte 22 % Low 25-47 Monocyte 9 % 0-13 Eosinophil 6 % 0-6 Basophil 1 % 0-2 Absolute Neutrophil Count 3.5 Anisocytosis SLIGHT Ovalocytes FEW Vitamin D,25 11/07/2009 [facility] 25-Hydroxy Vitamin <4.0 ng/ mL () Hydroxy [address] D2 [place] [address] [phone] 25-Hydroxy Vitamin D3 27 ng/mL () 25-Hydroxy Vitamin D Total 27 ng/mL () 11 Vitamin D 1,25 11/07/2009 [facility] Vitamin D, 1,25 51 pg/mL 18-78 12 And Vitamin [address] Dihydroxy D,2 [place] [address] [phone] Vitamin B12 11/07/2009 [facility] Vitamin B12 300 pg/mL 180- 9[address] [place] [address] [phone] Folic Acid 14.1 NG/ML 2-16 Laboratory test 11/07/2009 [facility] Ferritin 55 NG/ML 11.0- 307 finding [address] [place] [address] [phone] Iron And Tibc 11/07/2009 [facility] Iron Total 72 g/dL 28- 170 Serum [address] [place] [address] [phone] Unsaturated Iron Binding 270 g/dL Total Iron Binding Capacity 342 g/dL 250-450 % Iron Saturation 21 % 15-55 CBC W/Electronic 11/07/2009 [facility] White Blood 7.1 CUMM 4.8-10.8 Diff 101 [facility] [address] [phone] Red Cell Count 3.43 CUMM Low 4.2-5.4 Hemoglobin 10.8 g/dL Low 12.0-16.0 Hematocrit 31 % Low 35-47 Mean Corpuscular Volume 91 um3 79-97 Mean Corpuscular Hemoglob 31 pg 27-31 Mean Corpuscular HGB Cone 35 g/dL 32-36 Redcell Distribution WDTH 14 % 10.5-15 Platelet Count 194 CUMM 150-450 Mean Platelet Volume 6.9 um3 Low 7.4-10.4 Gran % 69.2 % 38-83 Lymph % 20.1 % Low 25-47 Mononuclear % 8.3 % 1-9 Eosinophil % 1.9 % 0-6 Basophil % 0.5 % 0-2 Abs Lymphs 1.4 1.0-4.8 Abs Mononuclear 0.6 0-0.8 Absolute Neutrophil Count 4.9 1.5-7.7 Abs Eosinophils 0.1 0-0.6 Abs Basophils 0 0-0.2 Lipid Profile 06/09/2009 [facility] Triglyceride 74 mg/dL 40- 200 (Trig/Chol/HDL) [address] [place] [address] [phone] Cholesterol 172 mg/dL Less Than 200 13 High Density Lipoprotein 48 mg/dL 40-60 14 Cholesterol/HDL Ratio 3.58 AVERAGE 1-4.44 Low Density Lipoprotein 109 mg/dL High Less Than 100 15 Urinalysis W/Microscopic 06/09/2009 [facility] Ua Color YELLOW Yellow [address] [place] [address] [phone] Appearance-Urine CLEAR Clear Specific [place]-Ur 1.022 1.010-1.030 Esterase-Urine TRACE Abnormal Negative Nitrite NEGATIVE Negative Dfcvgngbtvnr-Go-AMT NEGATIVE Negative Protein-Urine NEGATIVE Negative PH-Urine 5.5 5-9 Blood-Urine NEGATIVE Negative Ketones-Urine NEGATIVE Negative Bilirubin-Ur NEGATIVE Negative Glucose-Urine NEGATIVE Negative WBC-Urine 0-2 0-5 RBC-Urine 0-2 0-2 Laboratory test 06/09/2009 [facility] TSH 1.24 MIU/ML 0.34- 5.[address] [place] [address] [phone] Comp Metabolic 06/09/2009 [facility] Sodium 137 mmol/L 135- [address] [place] [address] [phone] Potassium 4.1 mmol/L 3.5-5.0 Chloride 105 mmol/L 101-111 Co2 (Carbon Dioxide) 28.0 mmol/L 22-32 Anion Gap 4.0 mmol/L 2-11 16 Glucose 111 mg/dL High 70-100 17 BUN 24 mg/dL 6-24 Creatinine 1.00 mg/dL 0.50-1.40 One Over Creatinine 1.00 BUN/Creatinine Ratio 24.0 High 8-20 Calcium 8.9 mg/dL 8.1-9.9 18 Total Protein 6.5 GM/DL 6.2-8.1 Albumin 3.4 GM/DL 3.2-5.2 Globulin 3.1 GM/DL 2-4 Albumin/Globulin Ratio 1.1 1-3 Bilirubin Total 0.6 mg/dL 0.4-1.5 19 Alkaline Phosphatase 89 U/L 30-110 Alt (SGPT) 15 U/L 14-54 Ast (Sgot) 20 U/L 12-42 eGFR Non- 57.0 > 60 eGFR 69.0 > 60 20 CBC With 06/09/2009 [facility] White Blood 7.4 CUMM 4.8-10.8 Electronic Diff [address] [place] [address] [phone] Red Cell Count 3.51 CUMM Low 4.2-5.4 Hemoglobin 10.9 g/dL Low 12.0-16.0 Hematocrit 32 % Low 35-47 Mean Corpuscular Volume 91 um3 79-97 Mean Corpuscular Hemoglob 31 pg 27-31 Mean Corpuscular HGB Cone 34 g/dL 32-36 Redcell Distribution WDTH 14 % 10.5-15 Platelet Count 194 CUMM 150-450 Mean Platelet Volume 7.6 um3 7.4-10.4 Gran % 63.6 % 38-83 Lymph % 23.7 % Low 25-47 Mononuclear % 9.8 % High 1-9 Eosinophil % 2.4 % 0-6 Basophil % 0.5 % 0-2 Abs Lymphs 1.8 1.0-4.8 Abs Mononuclear 0.7 0-0.8 Absolute Neutrophil Count 4.7 1.5-7.7 Abs Eosinophils 0.2 0-0.6 Abs Basophils 0 0-0.2 1 SEE RESULT BELOW Name: VERONICA BHAT : [address]: David Arevalo MD Acct: [id number] Unit: [id number] AGE: 87 Location: ENDO Re02/21/18 SEX: F Status: DEP REF SPEC: [id number] LACEY: 02/21/18 [facility] DR: David Arevalo MD REQ: [id number] RECD: 02/21/188225 STATUS: RY CARDENAS DR: Susy Quevedo MD PC _ ORDERED: LEVEL 4 FINAL DIAGNOSIS Colon, midright, biopsy: -- Tubular adenoma. -- No high grade dysplasia or malignancy. CLINICAL HISTORY Bright red blood per rectum POST-OPERATIVE DIAGNOSIS Colonscopy to cecum; redundant; 1-2+ diverticulosis; polyps; extremely engorged internal hemorrhoids; conclusion/plan: diverticulosis, hemorrhoids, polyps, bright red blood per rectum GROSS DESCRIPTION The specimen is received in formalin labeled, Biopsy Mid Right Colon Polyp, and consists of a 0.3 x 0.3 x 0.1 cm dobson-pink irregular to polypoid soft tissue fragment which is submitted entirely in one cassette. Signed by and Reported on: Brendon Nicole MD 1302 END OF REPORT DEPARTMENT OF PATHOLOGY, [address] [place] [address] Brendon Nicole M.D. Director [facility] # [id number] 2 Because ethnic data is not always [...] 15-29 5 Kidney failure <15 (or dialysis) 3 Reference Range and Interpretation: TnI (ng/mL) Interpretation Less Than 0.03 ng/mL Not supportive of diagnosis of PR 0.03 - 0.50 ng/mL Indeterminate: suggest serial studies if clinically indicated. Greater than 0.5 ng/mL Consistent with diagnosis of PR 4 CALL RESULTS TO 4591 5 Critical Result K:2.7 Called to [id number] at: 10:42:59 by: Read back by:[id number] Potassium reference range changed effective 01/10/14 6 Because ethnic data is not always readily [...] 15-29 5 Kidney failure <15 (or dialysis) 7 Please note the change in the INR reference range effective 13. 8 Please note the change in the INR reference range effective 13. 9 Please note the change in INR reference range effective 12. The INR(International Normalized Ratio) was adopted by the World Health Organization (WHO) in 1983 as a standardized system of reporting PT (Prothrombin Time). The Centers for Disease Control (CDC) states that reporting of PT results in INR only is the preferred method. Recommended INR for Patients on Oral Anticoagulants Prophylaxis 2.0 - 3.0 Treatment of thrombosis 2.0 - 3.0 Prevention of embolism 2.0 - 3.0 Prevention of embolism from prosthetic heart valves 2.5 - 3.5 10 In this sample, the concentration of methylmalonic acid (MMA) was minimally elevated. As the upper limit of the reference range varies in different laboratories from 0.4 to 0.6 nmol/mL, this finding could be considered normal, especially if the patient does not show other signs of vitamin B12 deficiency. Test Performed by: [facility] [address] [place] [address] Bumper And Painter: Simba Duarte III, M.D. 11 -- REFERENCE VALUE -- 25-HYDROXY D TOTAL (D2+D3) Optimum levels in the normal population are 25-80 Test Performed by: [facility] [address] [place] [address] Bumper And Painter: Simba Duarte III, M.D. 12 Test Performed by: [facility] [address] [place] [address] Bumper And Painter: Simba Duarte III, M.D. 13 CHOLESTEROL INTERPRETATION: Desirable: Less than 200 MG/DL Borderline-High Risk: 200-239 MG/DL High-Risk: 240 MG/DL and over 14 HDL INTERPRETATION: Undesirable: High Risk: Less than 40 MG/DL Desirable: Low Risk: Greater than 60 MG/DL 15 LDL INTERPRETATION: Low Risk Optimal Level: LDL Less than 100 MG/DL Near or Above Optimal: LDL 100-129 MG/DL Borderline High Risk: LDL 130-159 MG/DL High Risk: LDL 160-189 MG/DL Very High Risk: LDL Greater than 189 MG/DL 16 Anion gap measurement may be of limited value in the presence of any alkalosis, especially in a combined acid base disorder. . 17 Note change in reference range as of 10/30/07. The change was based on recommendations from the [place] [employer]. 18 Please note change in reference range effective 07 . 19 A metabolite of Naproxen, O-desmethylnaproxen, has been shown to interfere with the [place]int[place]-Taylor method for measuring total bilirubin. Samples from patients who have taken Naproxen have shown spurious elevation in total bilirubin levels. 20 Because ethnic data is not always readily [...] Kidney failure <15 (or dialysis) Procedures Date Code Description Status 02/21/2018 [id number] Colonoscopy Completed 02/21/2018 26053 Colonoscopy Flexible Remove Tumor/Polyp/Lesion Snare Completed Technique 12/27/2017 62741 EKG Tracing & Interpretation Completed 12/25/2017 72461 Anoscopy Completed 06/20/2017 89176 EKG Tracing & Interpretation Completed 05/28/2017 07751 Cardioversion Completed 04/10/2017 92566 EKG Tracing & Interpretation Completed 03/06/2017 11863 Cardioversion Completed 10/23/2016 66264 EKG Tracing & Interpretation Completed 10/17/2016 24326 EKG, Interpretation Only Completed 10/16/2016 69584 EKG, Interpretation Only Completed 10/15/2016 08114 Cath PLMT&NJX L Ventriculog Img S&I Completed 10/15/2016 64779 EKG, Interpretation Only Completed 10/15/2016 27825 Revascularization Acute Total/Subtotal Occlusion Completed 10/14/2016 97088 EKG, Interpretation Only Completed 10/12/2016 33519 Treadmill Interp/Report Only Completed 10/12/2016 69409 Stress Test Supervsn W/Out I/R Completed 10/11/2016 49264 Cardioversion Completed 10/11/2016 51883 Echocardiogram, Limited Study Completed 09/17/2016 85104 Mobile Cardiovascular Telemetry Over 24 HR Up To 30 Completed Days 09/12/2016 48227 EKG Tracing & Interpretation Completed 08/27/2016 21577 ECHO Transthorasic Realtime 2D W Doppler & Color Flow Completed Hosp 08/27/2016 60893 EKG, Interpretation Only Completed 08/27/2016 77268 Cardioversion Completed 08/26/2016 28439 EKG, Interpretation Only Completed 07/05/2016 72219 ECHO Transthorasic Realtime 2D W Doppler & Color Flow Completed Hosp 10/14/2015 03377 EKG Tracing & Interpretation Completed 08/13/2015 66473 EKG, Interpretation Only Completed 08/13/2015 63498 Cardioversion Completed 01/27/2015 11423 EKG Tracing & Interpretation Completed 12/28/2014 51911 EKG, Interpretation Only Completed 12/28/2014 58654 Cardioversion Completed 03/03/2014 54409 EKG Tracing & Interpretation Completed 01/26/2014 81370 EKG, Interpretation Only Completed 01/26/2014 26655 Cardioversion Completed 01/25/2014 54646 Cardioversion Completed 02/20/2013 08902 ECHO Transthoracic, Real-Time 2D With Doppler And Color Completed Flow 05/27/2012 72999 ECHO Transthoracic, Real-Time 2D With Doppler And Color Completed Flow 05/27/2012 60029 ECHO Transthoracic, Real-Time 2D With Doppler And Color Completed Flow 05/23/2012 12960 Holter Monitoring 24 HR New Completed 04/24/2012 91320 EKG Tracing & Interpretation Completed 01/10/2012 35723 RT & lt Cath W/Injx HRT Art&L Ventr Img S&I Completed 01/01/2012 69839 Carotid Doppler,Bilateral Completed 12/26/2011 94913 Stress Test Completed 04/01/2010 07739 Treadmill Interp/Report Only Completed 04/01/2010 77161 Stress Test Supervsn W/Out I/R Completed 04/21/2009 33251 EKG Tracing & Interpretation Completed 04/19/2009 84567710 Colonoscopy Completed 04/04/2009 58101 EKG, Interpretation Only Completed Encounters Type Date Location Provider Dx Diagnosis Office Visit 01/09/2018 [facility] Dinora Venegas, K64.0 First degree 10:00a [employer]PER[employer] hemorrhoids K62.5 Hemorrhage of anus and rectum Office Visit 12/27/2017 10:30a [facility] Talib Medrano I48.0 Paroxysmal atrial Of Nathaniel Cisneros M.D. 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 fibrillation I25.10 Athscl heart disease of nome coronary artery w/o ang pctrs Office Visit 04/10/2017 10:30a [facility] Talib Medrano I25.10 Athscl heart Of Nathaniel Cisneros M.D. disease of nome coronary artery w/o ang pctrs I48.0 Paroxysmal atrial fibrillation Office Visit 12/05/2016 10:30a [facility] Talib Medrano I25.10 Athscl heart Of Nathaniel Cisneros M.D. disease of nome coronary artery w/o ang pctrs I10 Essential (primary) hypertension I48.0 Paroxysmal atrial fibrillation Z95.2 Presence of prosthetic heart valve Office Visit 10/23/2016 2:15p [facility] Talib Medrano I25.10 Athscl heart [facility] Sandoval Cisneros disease of nome coronary artery w/o ang pctrs I10 Essential (primary) hypertension I48.0 Paroxysmal atrial fibrillation Z95.2 Presence of prosthetic heart valve I25.2 Old myocardial infarction Office Visit 10/17/2016 [facility] Rosenthal I48.91 Unspecified atrial 8:26a lo Murcia M.D. fibrillation Hospitalists E78.5 Hyperlipidemia, unspecified I25.10 Athscl heart disease of [place] coronary artery w/o ang pctrs I10 Essential (primary) hypertension Office Visit 10/16/2016 [facility] Walt Rosenthal I48.91 Unspecified atrial 8:25a lo Murcia M.D. fibrillation Hospitalists I25.10 Athscl heart disease of nome coronary artery w/o ang pctrs E78.5 Hyperlipidemia, unspecified I10 Essential (primary) hypertension Office Visit 10/16/2016 9:58a [facility] Nemo Harris I21.4 Non-St elevation Of Stitch Welder AT [facility] MD Sourav, (Nstemi) FACC, FSCAI myocardial infarction I25.10 Athscl heart disease of [place] coronary artery w/o ang pctrs Office Visit 10/16/2016 2:56p [facility] Harvey F. I49.5 Sick sinus Mauser, M.D. syndrome I25.10 Athscl heart disease of [place] coronary artery w/o ang pctrs I10 Essential (primary) hypertension Office Visit 10/15/2016 [facility] Galo I48.91 Unspecified atrial 8:25a Assoc,lo Cowan M.D. fibrillation Hospitalists I25.10 Athscl heart disease of nome coronary artery w/o ang pctrs E78.5 Hyperlipidemia, unspecified I10 Essential (primary) hypertension Office Visit 10/14/2016 2:53p [facility] Harvey F. I48.0 Paroxysmal atrial Mauser, M.D. fibrillation I25.10 Athscl heart disease of nome coronary artery w/o ang pctrs I21.4 Non-St elevation (Nstemi) myocardial infarction I49.5 Sick sinus syndrome Office Visit 10/14/2016 [facility] Galo I48.91 Unspecified atrial 8:24a Assoc,lo Cowan M.D. fibrillation Hospitalists I25.10 Athscl heart disease of nome coronary artery w/o ang pctrs E78.5 Hyperlipidemia, unspecified Office Visit 10/13/2016 2:52p [facility] Harvey F. I48.0 Paroxysmal atrial Mauser, M.D. fibrillation I21.4 Non-St elevation (Nstemi) myocardial infarction I49.5 Sick sinus syndrome Office Visit 10/13/2016 8:24a [facility] Patricia June, I48.91 Unspecified atrial Assoc,pc N.PCasey fibrillation Hospitalists I25.10 Athscl heart disease of nome coronary artery w/o ang pctrs E78.5 Hyperlipidemia, unspecified I10 Essential (primary) hypertension Office Visit 10/12/2016 2:48p [facility] Harvey F. I48.0 Paroxysmal atrial Mauser, M.D. fibrillation I49.5 Sick sinus syndrome I21.4 Non-St elevation (Nstemi) myocardial infarction R94.31 Abnormal electrocardiogram [ECG] [EKG] Office Visit 10/12/2016 [facility] Olga Lidia I48.91 Unspecified atrial 8:23a Assoc,lo Ewing D.O. fibrillation Hospitalists I25.10 Athscl heart disease of [place] coronary artery w/o ang pctrs E78.5 Hyperlipidemia, unspecified I10 Essential (primary) hypertension Office Visit 10/11/2016 2:54p [facility] Harvey Saldana I48.0 Paroxysmal atrial Maharshad, MCaseyD. fibrillation I49.5 Sick sinus syndrome Z95.2 Presence of prosthetic heart valve I10 Essential (primary) hypertension Office Visit 10/11/2016 [facility] Leonardo I48.91 Unspecified 8:22a Assoc,pc Mikey N.Pierce atrial Hospitalists fibrillation E78.5 Hyperlipidemia, unspecified I25.10 Athscl heart disease of [place] coronary artery w/o ang pctrs I10 Essential (primary) hypertension Office Visit 10/11/2016 9:56a [facility] Harvey F. I10 Essential (primary) Mausescott, M.D. hypertension I48.0 Paroxysmal atrial fibrillation I49.5 Sick sinus syndrome Z95.2 Presence of prosthetic heart valve R42 Dizziness and giddiness Office Visit 09/12/2016 8:30a [facility] Talib Medrano I48.0 Paroxysmal atrial Of Azeem McgarryD. fibrillation I10 Essential (primary) hypertension Z95.2 Presence of prosthetic heart valve Office 08/27/2016 [facility] Kushal I48.91 Unspecified Visit 2:01p Assoc,KIRSTEN Cruz atrial Hospitalists fibrillation R74.8 Abnormal levels of other serum enzymes Z95.2 Presence of prosthetic heart valve I10 Essential (primary) hypertension Office Visit 08/26/2016 2:00p [facility] Patricia June, I48.91 Unspecified atrial Assoc,lo N.P. fibrillation Hospitalists R74.8 Abnormal levels of other serum enzymes Z95.2 Presence of prosthetic heart valve I10 Essential (primary) hypertension Office Visit 08/26/2016 10:02a [facility] Harvey Saldana I48.0 Paroxysmal atrial Maurice MCaseyD. fibrillation I10 Essential (primary) hypertension R79.89 Other specified abnormal findings of blood chemistry Office Visit 07/04/2016 2:37p [facility] Brent Lincoln, R55 Syncope and Assoc,lo Nick collapse Hospitalists I48.91 Unspecified atrial fibrillation I25.10 Athscl heart disease of [place] coronary artery w/o ang pctrs I10 Essential (primary) hypertension Office Visit 02/08/2016 1:30p [facility] Hector Caputo, M25.562 Pain in left Of C.M.A. M.D. knee M17.0 Bilateral primary osteoarthritis of knee Office Visit 10/14/2015 11:45a [facility] Talib D. I48.1 Persistent atrial Of Nathaniel Cisneros M.D. fibrillation I10 Essential (primary) hypertension I35.0 Nonrheumatic aortic (valve) stenosis Z95.2 Presence of prosthetic heart valve Office Visit 08/13/2015 12:49p [facility] Talib D. I48.1 Persistent atrial Of Nathaniel Cisneros M.D. 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 I48.0 Paroxysmal atrial Of Nathaniel Cisneros M.D. fibrillation Z95.2 Presence of prosthetic heart valve R94.31 Abnormal electrocardiogram [ECG] [EKG] Office Visit 12/29/2014 3:53p [facility] Nicole Guerra, R42 Dizziness and Assoc,lo bravo Hospitalists I48.91 Unspecified atrial fibrillation E78.2 Mixed hyperlipidemia I10 Essential (primary) hypertension Office Visit 12/28/2014 3:52p [facility] Leonardo Jensen, R42 Dizziness and Assoc,pc N.PCasey bravo Hospitalists I48.91 Unspecified atrial fibrillation I10 Essential (primary) hypertension E78.2 Mixed hyperlipidemia Office Visit 08/13/2014 1:30p [facility] Talib D. 427.31 Atrial Of Nathaniel Cisneros M.D. Fibrillation 424.1 Aortic Valve Disorder Office Visit 03/03/2014 9:45a [facility] Talib D. 427.31 Atrial Of Nathaniel Cisneros M.D. Fibrillation 424.1 Aortic Valve Disorder Office Visit 01/26/2014 11:20a [facility] Talib D. 427.31 Atrial Of Nathaniel Cisneros M.D. Fibrillation Office Visit 01/22/2014 2:15p [facility] Talib Medrano 424.1 Aortic Valve Of Nathaniel Cisneros M.D. Disorder 427.31 Atrial Fibrillation 401.9 Hypertension Unspec Office Visit 03/19/2013 10:00a [facility] Talib Medrano 424.1 Aortic Valve Of Nathaniel Cisneros M.D. Disorder 427.31 Atrial Fibrillation 427.9 Cardiac Dysrhythmia Unspec Office Visit 11/06/2012 1:00p [facility] aTlib Medrano 424.1 Aortic Valve Of Nathaniel Cinseros M.D. Disorder 427.31 Atrial Fibrillation 401.9 Hypertension Unspec Office Visit 05/29/2012 1:45p [facility] Talib Medrano 424.1 Aortic Valve Of Nathaniel Cisneros M.D. Disorder 427.31 Atrial Fibrillation Office Visit 04/24/2012 12:00p [facility] Talib Medrano 424.1 Aortic Valve Of Nathaniel Cisneros M.D. Disorder 427.31 Atrial Fibrillation Office Visit 01/23/2012 11:30a [facility] Med[facility] 786.09 Dyspnea & Cardiology Of Sandoval Cisneros Respiratory Stitch Welder Abnormalities Other 424.1 Aortic Valve Disorder Office Visit 01/09/2012 8:00a [facility] Talib Medrano 786.50 Pain Chest Of Nathaniel Cisneros M.D. Unspec 424.1 Aortic Valve Disorder Office 04/02/2010 Lou Castrejon S. 794.31 Electrocardiogram Visit 9:17a [facility]iology Sandoval Lees (ECG) (EKG) Abnormal 427.31 Atrial Fibrillation 424.1 Aortic Valve Disorder 401.1 Hypertension Benign Office Visit 04/01/2010 9:17a [facility] Fran Castrejon S. 786.50 Pain Chest Sandoval Lees Unspec 427.31 Atrial Fibrillation 424.1 Aortic Valve Disorder 401.1 Hypertension Benign Office Visit 07/22/2009 2:00p DO Not Use Nathaniel Quevedo 401.1 Hypertension AT Becky Jain M.D. 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 Plan of Treatment Future Appointment(s):05/13/2018 1:15 pm - [facility]
--- OUTSIDE RECORDS SUMMARY | 2018-05-04 06:08 | XMS REPORT | Continuity of Care Document ---
:1930 External Reference #:[id number] Author Name Andriy Gomez Care Team Providers Name Role Phone Susy Quevedo MD Primary Care Physician Unavailable Payers Date Identification Numbers Payment Provider Subscriber Policy Number: [id number] [employer] Veronica Bhat Group Number: [id number] [address] PayID: [id number] [place] [address] Effective: 1995 Policy Number: [id number] Medicare Veronica Bhat Expires: 2017 PayID: [id number] [address] [place] [address] Advance Directives Description No Information Available Problems [...] Result H/L Range Note Laboratory test 02/21/2018 [facility] Surgical SEE RESULT [address] [place] [address] [phone] Laboratory test 12/28/2014 [facility] Inr/Protime 3.66 High 0.78-1.[address] [place] [address] [phone] CBC Auto Diff 12/28/2014 [facility] White Blood 4.9 10^3/uL N 4.8-10.[address] [place] [address] [phone] Red Blood Count 3.83 10^6/uL Low 4.0-5.4 [...] % 0 N Comp Metabolic Panel 12/28/2014 [facility] Sodium 133 mmol/L N 133-[address] [place] [address] [phone] Potassium 3.6 mmol/L N 3.5-5.0 Chloride 98 [...] 40.1 N >60 2 Laboratory test 12/28/2014 [facility] Magnesium 1.8 mg/dL Low 1.9-2.[address] [place] [address] [phone] Troponin-I (TnI) 0.00 ng/mL N <0.03 3 TSH (Thyroid Stim Horm) 2.86 ?IU/mL N 0.34-5.60 Laboratory test 01/25/2014 [facility] TSH (Thyroid 2.83 IU/mL N 0.34-5.[address] [place] [address] Horm) [phone] CBC No Diff 01/25/2014 [facility] White Blood 5.3 N 4.8-10.[address] Count 10^3/[place] [address] [phone] Red Blood Count 3.37 10^6/uL Low 4.0-5.4 Hemoglobin 10.5 g/dL Low 12.0-16.0 Hematocrit 33 % Low 35-47 Mean Corpuscular Volume 97 fL N 80-97 Mean Corpuscular Hemoglobin 31 pg N 27-31 Mean Corpuscular HGB Conc 32 g/dL N 31-36 Red Cell Distribution Width 15 % N 10.5-15 Platelet Count 131 10^3/uL Low 150-450 Mean Platelet Volume 7 um3 Low 7.4-10.4 Inr/Protime 01/25/2014 [facility] Inr 2.32 High 0.85-1.06 [address] [place], [place] [id number] [phone] Basic Metabolic 01/25/2014 [facility] Sodium 138 mmol/L N 133- 145 Panel [address] [place] [address] [phone] Potassium 2.7 mmol/L Low 3.5-5.0 5 Chloride 97 mmol/L Low 101-111 Co2 Carbon Dioxide 30 mmol/L N 22-32 Anion Gap 11 mmol/L N 2-11 Glucose 136 mg/dL High 70-100 Blood Urea Nitrogen 27 mg/dL High 6-24 Creatinine 1.68 mg/dL High 0.51-0.95 BUN/Creatinine Ratio 16.1 N 8-20 Calcium 8.8 mg/dL N 8.6-10.3 Egfr Non- 29.1 N >60 Egfr 37.4 N >60 6 Laboratory 12/07/2013 [facility] Inr 1.89 High 0.85-1.06 test finding [address] [place] [address] [phone] Laboratory 08/24/2013 [facility] Inr 1.99 High 0.85-1.06 test finding [address] [place] [address] [phone] Laboratory 07/27/2013 [facility] Inr 1.96 High 0.85-1.06 test finding [address] [place] [address] [phone] Laboratory 07/06/2013 [facility] Inr 1.82 High 0.85-1.06 test finding [address] [place] [address] [phone] Laboratory 06/08/2013 [facility] Inr 3.57 High 0.85-1.06 test finding [address] [place] [address] [phone] Laboratory 05/25/2013 [facility] Inr 1.63 High 0.85-1.06 test finding [address] [place] [address] [phone] Laboratory 04/27/2013 [facility] Inr 2.48 High 0.85-1.06 test finding [address] [place] [address] [phone] Laboratory 03/30/2013 [facility] Inr 2.02 High 0.85-1.06 test finding [address] [place] [address] [phone] Inr/Protime 03/02/2013 Inr 2.05 High 0.85-1.06 7 Laboratory 02/02/2013 [facility] Inr 2.31 High 0.85-1.06 8 test finding [address] [place] [address] [phone] Laboratory 01/05/2013 [facility] Inr 2.30 High 0.87-0.97 test finding [address] [place] [address] [phone] Laboratory 12/08/2012 [facility] Inr 2.67 High 0.87-0.97 test finding [address] [place] [address] [phone] Laboratory 11/11/2012 [facility] Inr 2.42 High 0.87-0.97 test finding [address] [place] [address] [phone] Laboratory 10/20/2012 [facility] Inr 2.22 High 0.87-0.97 test finding [address] [place] [address] [phone] Laboratory 10/06/2012 [facility] Inr 1.82 High 0.87-0.97 test finding [address] [place] [address] [phone] Laboratory 09/22/2012 [facility] Inr 1.69 High 0.87-0.97 test finding [address] [place] [address] [phone] Laboratory 08/25/2012 [facility] Inr 1.89 High 0.87-0.97 test finding [address] [place] [address] [phone] Laboratory 07/28/2012 [facility] Inr 2.25 High 0.87-0.97 test finding [address] [place], [place] [address] [phone] Laboratory 06/30/2012 [facility] Inr 2.30 High 0.87-0.97 test finding [address] [place] [address] [phone] Laboratory 06/09/2012 [facility] Inr 1.83 High 0.87-0.97 9 test finding [address] [place] [address] [phone] Laboratory 05/01/2010 [facility] Methylmalonic 0.43 Abnormal < =0.40 10 test finding [address] Acid nmol/[place] [address] L [phone] CBC With 05/01/2010 [facility] White Blood 5.7 4.8-10.8 Manual Diff [address] [place] [place] [address] [phone] Red Cell Count 3.29 CUMM Low 4.2-5.4 [...] Anisocytosis SLIGHT Ovalocytes FEW Vitamin D,25 11/07/2009 [facility] 25-Hydroxy Vitamin <4.0 ng/ mL () Hydroxy [address] [place]2 [place] [address] [phone] 25-Hydroxy Vitamin D3 27 ng/mL () 25-Hydroxy Vitamin D Total 27 ng/mL () 11 Vitamin D 1,25 11/07/2009 [facility] Vitamin D, 1,25 51 pg/mL 18-78 12 And Vitamin [address] Dihydroxy D,2 [place] [address] [phone] Vitamin B12 11/07/2009 [facility] Vitamin B12 300 pg/mL 180- 914 [address]olate [address] [place] [address] [phone] Folic Acid 14.1 NG/ML 2-16 Laboratory test 11/07/2009 [facility] Ferritin 55 NG/ML 11.0- 307 finding [address] [place] [address] [phone] Iron And Tibc 11/07/2009 [facility] Iron Total 72 g/dL 28- 170 Serum [address] [place] [address] [phone] Unsaturated Iron Binding 270 g/dL Total Iron Binding Capacity 342 g/dL 250-450 % Iron Saturation 21 % 15-55 CBC W/Electronic 11/07/2009 [facility] White Blood 7.1 CUMM 4.8-10.8 Diff [address] [facility] [address] [phone] Red Cell Count 3.43 CUMM Low 4.2-5.4 [...] Abs Basophils 0 0-0.2 Lipid Profile 06/09/2009 [facility] Triglyceride 74 mg/dL 40- 200 (Trig/Chol/HDL) [address] [place] [address] [phone] Cholesterol 172 mg/dL Less Than 200 13 High Density Lipoprotein 48 mg/dL 40-60 14 Cholesterol/HDL Ratio 3.58 AVERAGE 1-4.44 Low Density Lipoprotein 109 mg/dL High Less Than 100 15 Urinalysis W/Microscopic 06/09/2009 [facility] Ua Color YELLOW Yellow [address] [place] [address] [phone] Appearance-Urine CLEAR Clear Specific [place]-Ur 1.022 1.010-1.030 Esterase-Urine TRACE Abnormal Negative Nitrite NEGATIVE Negative Olurphiphhtc-Bx-WAJ NEGATIVE Negative Protein-Urine NEGATIVE Negative PH-Urine 5.5 5-9 Blood-Urine NEGATIVE Negative Ketones-Urine NEGATIVE Negative Bilirubin-Ur NEGATIVE Negative Glucose-Urine NEGATIVE Negative WBC-Urine 0-2 0-5 RBC-Urine 0-2 0-2 Laboratory test 06/09/2009 [facility] TSH 1.24 MIU/ML 0.34- 5.[address] [place] [address] [phone] Comp Metabolic 06/09/2009 [facility] Sodium 137 mmol/L 135- [address] [place] [address] [phone] Potassium 4.1 mmol/L 3.5-5.0 Chloride 105 mmol/L [...] 69.0 > 60 20 CBC With 06/09/2009 [facility] White Blood 7.4 CUMM 4.8-10.8 Electronic Diff [address] [place] [address] [phone] Red Cell Count 3.51 CUMM Low 4.2-5.4 [...] [address]: David Arevalo MD Acct: [id number] Unit: [id number] AGE: 87 Location: ENDO Re02/21/18 SEX: F Status: DEP REF SPEC: [id number] LACEY: 02/21/[address] [facility] [address]: David Arevalo MD REQ: [id number] RECD: 02/21/188301 STATUS: RY CARDENAS DR: Susy Quevedo MD [...] 1302 END OF REPORT DEPARTMENT OF PATHOLOGY, [address] [place] [address] Brendon Nicole M.D. Director [facility] # [id number] 2 Because ethnic data is not always [...] 0.03 ng/mL Not supportive of diagnosis of [place] 0.03 - 0.50 ng/mL Indeterminate: suggest serial studies if clinically indicated. Greater than 0.5 ng/mL Consistent with diagnosis of IN 4 CALL RESULTS TO 4591 5 Critical Result K:2.7 Called to [id number] at: 10:42:59 by: Read back by:[id number] Potassium reference range changed effective 01/10/14 6 [...] of vitamin B12 deficiency. Test Performed by: [facility] Dpt of Lab Med and Pathology [address] [place] [address] Laundry Sorter: Simba Duarte III, M.D. 11 -- REFERENCE VALUE -- 25-HYDROXY D TOTAL (D2+D3) Optimum levels in the normal population are 25-80 Test Performed by: [facility] D[facility] of Lab Med and Pathology [address] [place] [address] Laundry Sorter: Simba Duarte III, M.D. 12 Test Performed by: [facility] D[facility] of Lab Med and Pathology [address] [place] [address] Laundry Sorter: Simba Duarte III, M.D. 13 CHOLESTEROL INTERPRETATION: [...] change was based on recommendations from the [place] [employer]. 18 Please note change in [...] dialysis) Procedures Date Code Description Status 02/21/2018 [id number] Colonoscopy Completed 02/21/2018 89060 Colonoscopy Flexible Remove Tumor/Polyp/Lesion Snare Completed Technique 12/27/2017 37914 EKG Tracing & Interpretation Completed 12/25/2017 46352 Anoscopy Completed 06/20/2017 29632 EKG Tracing & Interpretation Completed 05/28/2017 37793 Cardioversion Completed 04/10/2017 44500 EKG Tracing & Interpretation Completed 03/06/2017 56748 Cardioversion Completed 10/23/2016 01200 EKG Tracing & Interpretation Completed 10/17/2016 23560 EKG, Interpretation Only Completed 10/16/2016 66821 EKG, Interpretation Only Completed 10/15/2016 82399 Cath PLMT&NJX L Ventriculog Img S&I Completed 10/15/2016 38958 EKG, Interpretation Only Completed 10/15/2016 74897 Revascularization Acute Total/Subtotal Occlusion Completed 10/14/2016 63675 EKG, Interpretation Only Completed 10/12/2016 83102 Treadmill Interp/Report Only Completed 10/12/2016 65046 Stress Test Supervsn W/Out I/R Completed 10/11/2016 93407 Cardioversion Completed 10/11/2016 73022 Echocardiogram, Limited Study Completed 09/17/2016 42753 Mobile Cardiovascular Telemetry Over 24 HR Up To 30 Completed Days 09/12/2016 46930 EKG Tracing & Interpretation Completed 08/27/2016 14175 ECHO Transthorasic Realtime 2D W Doppler & Color Flow Completed Hosp 08/27/2016 14194 EKG, Interpretation Only Completed 08/27/2016 98556 Cardioversion Completed 08/26/2016 61331 EKG, Interpretation Only Completed 07/05/2016 15019 ECHO Transthorasic Realtime 2D W Doppler & Color Flow Completed Hosp 10/14/2015 84679 EKG Tracing & Interpretation Completed 08/13/2015 71076 EKG, Interpretation Only Completed 08/13/2015 06659 Cardioversion Completed 01/27/2015 06843 EKG Tracing & Interpretation Completed 12/28/2014 86638 EKG, Interpretation Only Completed 12/28/2014 67010 Cardioversion Completed 03/03/2014 74779 EKG Tracing & Interpretation Completed 01/26/2014 74422 EKG, Interpretation Only Completed 01/26/2014 55485 Cardioversion Completed 01/25/2014 27359 Cardioversion Completed 02/20/2013 33730 ECHO Transthoracic, Real-Time 2D With Doppler And Color Completed Flow 05/27/2012 84637 ECHO Transthoracic, Real-Time 2D With Doppler And Color Completed Flow 05/27/2012 17517 ECHO Transthoracic, Real-Time 2D With Doppler And Color Completed Flow 05/23/2012 03684 Holter Monitoring 24 HR New Completed 04/24/2012 27319 EKG Tracing & Interpretation Completed 01/10/2012 85842 RT & lt Cath W/Injx HRT Art&L Ventr Img S&I Completed 01/01/2012 90960 Carotid Doppler,Bilateral Completed 12/26/2011 46909 Stress Test Completed 04/01/2010 88563 Treadmill Interp/Report Only Completed 04/01/2010 31923 Stress Test Supervsn W/Out I/R Completed 04/21/2009 23432 EKG Tracing & Interpretation Completed 04/19/2009 83679723 Colonoscopy Completed 04/04/2009 56660 EKG, Interpretation Only Completed Encounters Type Date Location Provider Dx Diagnosis Office Visit 01/09/2018 [facility] Dinora Venegas, K64.0 First degree 10:00a MASTER GLAZIER hemorrhoids K62.5 Hemorrhage of anus and rectum Office Visit 12/27/2017 10:30a [facility] Talib Medrano I48.0 Paroxysmal atrial Of Nathaniel Cisneros M.D. 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 fibrillation I25.10 [place]cl heart disease [place] coronary artery w/o ang pctrs Office Visit 04/10/2017 10:30a [facility] Talib Medrano I25.10 Athscl heart Of Nathaniel Cisneros M.D. disease of [place] coronary artery w/o ang pctrs I48.0 Paroxysmal atrial fibrillation Office Visit 12/05/2016 10:30a [facility] Talib Medrano I25.10 Athscl heart Of Nathaniel Cisneros M.D. disease of [place] coronary artery w/o ang pctrs I10 Essential (primary) hypertension I48.0 Paroxysmal atrial fibrillation Z95.2 Presence of prosthetic heart valve Office Visit 10/23/2016 2:15p [facility] Talib Medrano I25.10 Athscl heart Of 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 I49.5 Sick sinus Mauser, M.D. syndrome I25.10 Athscl heart disease [place] coronary artery w/o ang pctrs I10 Essential (primary) hypertension Office Visit 10/15/2016 [facility] Galo I48.91 Unspecified atrial 8:25a Assoc,lo Cowan M.D. fibrillation Hospitalists I25.10 Athscl heart disease [place] coronary artery w/o ang pctrs E78.5 Hyperlipidemia, unspecified I10 Essential (primary) hypertension Office Visit 10/14/2016 2:53p [facility] Harvey F. I48.0 Paroxysmal atrial Mauser, M.D. fibrillation I25.10 Athscl heart disease [place] coronary artery w/o ang pctrs I21.4 Non-St elevation (Nstemi) myocardial infarction I49.5 Sick sinus syndrome Office Visit 10/14/2016 [facility] Galo I48.91 Unspecified atrial 8:24a Assoc,lo Cowan M.D. fibrillation Hospitalists I25.10 Athscl heart disease [place] coronary artery w/o ang pctrs E78.5 Hyperlipidemia, unspecified Office Visit 10/13/2016 2:52p [facility] Harvey F. I48.0 Paroxysmal atrial Mauser, M.D. fibrillation I21.4 Non-St elevation (Nstemi) myocardial infarction I49.5 Sick sinus syndrome Office Visit 10/13/2016 8:24a [facility] Patricia June, I48.91 Unspecified atrial Assoc,pc N.PCasey fibrillation Hospitalists I25.10 Athscl heart disease [place] coronary artery w/o ang pctrs E78.5 Hyperlipidemia, unspecified I10 Essential (primary) hypertension Office Visit 10/12/2016 2:48p [facility] Harvey F. I48.0 Paroxysmal atrial Mauser, M.D. fibrillation I49.5 Sick sinus syndrome I21.4 Non-St elevation (Nstemi) myocardial infarction R94.31 Abnormal electrocardiogram [ECG] [EKG] Office Visit 10/12/2016 [facility] Olga Lidia I48.91 Unspecified atrial 8:23a Assoc,lo Ewing D.O. fibrillation Hospitalists I25.10 [place]scl heart disease [place] coronary artery w/o ang pctrs E78.5 Hyperlipidemia, unspecified I10 Essential (primary) hypertension Office Visit 10/11/2016 2:54p [facility] Harvey Saldana I48.0 Paroxysmal atrial Maharshad, MCaseyD. fibrillation I49.5 Sick sinus syndrome Z95.2 Presence of prosthetic heart valve I10 Essential (primary) hypertension Office Visit 10/11/2016 [facility] Leonardo I48.91 Unspecified 8:22a Assoc,pc Mikey N.Pierce atrial Hospitalists fibrillation E78.5 Hyperlipidemia, unspecified I25.10 Athscl heart disease [place] coronary artery w/o ang pctrs I10 Essential (primary) hypertension Office Visit 10/11/2016 9:56a [facility] Harvey F. I10 Essential (primary) Mausescott, M.D. hypertension I48.0 Paroxysmal atrial fibrillation I49.5 Sick sinus syndrome Z95.2 Presence of prosthetic heart valve R42 Dizziness and giddiness Office Visit 09/12/2016 8:30a [facility] Talib Medrano I48.0 Paroxysmal atrial Of Azeem McgarryD. fibrillation I10 Essential (primary) hypertension Z95.2 Presence of prosthetic heart valve Office 08/27/2016 [facility] Kushal I48.91 Unspecified Visit 2:01p Assoc,KIRSTEN Cruz atrial Hospitalists fibrillation R74.8 Abnormal levels of other serum enzymes Z95.2 Presence of prosthetic heart valve I10 Essential (primary) hypertension Office Visit 08/26/2016 2:00p [facility] Patricia June, I48.91 Unspecified atrial Assoc,lo N.P. fibrillation Hospitalists R74.8 Abnormal levels of other serum enzymes Z95.2 Presence of prosthetic heart valve I10 Essential (primary) hypertension Office Visit 08/26/2016 10:02a [facility] Harvey Saldana I48.0 Paroxysmal atrial Maurice MCaseyD. fibrillation I10 Essential (primary) hypertension R79.89 Other specified abnormal findings of blood chemistry Office Visit 07/04/2016 2:37p [facility] Brent Lincoln, R55 Syncope and Assoc,lo Nick collapse Hospitalists I48.91 Unspecified atrial fibrillation I25.10 Athscl heart disease [place] coronary artery w/o ang pctrs I10 Essential (primary) hypertension Office Visit 02/08/2016 1:30p [facility] Hector Caputo, M25.562 Pain in left Of C.M.A. M.D. knee M17.0 Bilateral primary osteoarthritis of knee Office Visit 10/14/2015 11:45a [facility] Talib D. I48.1 Persistent atrial Of Nathaniel Cisneros M.D. fibrillation I10 Essential (primary) hypertension I35.0 Nonrheumatic aortic (valve) stenosis Z95.2 Presence of prosthetic heart valve Office Visit 08/13/2015 12:49p [facility] Talib D. I48.1 Persistent atrial Of Nathaniel Cisneros M.D. 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 I48.0 Paroxysmal atrial Of Nathaniel Cisneros M.D. fibrillation Z95.2 Presence of prosthetic heart valve R94.31 Abnormal electrocardiogram [ECG] [EKG] Office Visit 12/29/2014 3:53p [facility] Nicole Guerra, R42 Dizziness and Assoc,lo bravo Hospitalists I48.91 Unspecified atrial fibrillation E78.2 Mixed hyperlipidemia I10 Essential (primary) hypertension Office Visit 12/28/2014 3:52p [facility] Leonardo Jensen, R42 Dizziness and Assoc,pc N.PCasey bravo Hospitalists I48.91 Unspecified atrial fibrillation I10 Essential (primary) hypertension E78.2 Mixed hyperlipidemia Office Visit 08/13/2014 1:30p [facility] Talib D. 427.31 Atrial Of Nathaniel Cisneros M.D. Fibrillation 424.1 Aortic Valve Disorder Office Visit 03/03/2014 9:45a [facility] Talib D. 427.31 Atrial Of Nathaniel Cisneros M.D. Fibrillation 424.1 Aortic Valve Disorder Office Visit 01/26/2014 11:20a [facility] Talib D. 427.31 Atrial Of Nathaniel Cisneros M.D. Fibrillation Office Visit 01/22/2014 2:15p [facility] Talib Medrano 424.1 Aortic Valve Of Nathaniel Cisneros M.D. Disorder 427.31 Atrial Fibrillation 401.9 Hypertension Unspec Office Visit 03/19/2013 10:00a [facility] Talib Medrano 424.1 Aortic Valve Of Nathaniel Cisneros M.D. Disorder 427.31 Atrial Fibrillation 427.9 Cardiac Dysrhythmia Unspec Office Visit 11/06/2012 1:00p [facility] Talib Medrano 424.1 Aortic Valve Of Nathaniel Cisneros M.D. Disorder 427.31 Atrial Fibrillation 401.9 Hypertension Unspec Office Visit 05/29/2012 1:45p [facility] Talib Medrano 424.1 Aortic Valve Of Nathaniel Cisneros M.D. Disorder 427.31 Atrial Fibrillation Office Visit 04/24/2012 12:00p [facility] Talib Medrano 424.1 Aortic Valve Of Nathaniel Cisneros M.D. 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 Unspec 424.1 Aortic Valve Disorder Office 04/02/2010 Lou Castrejon S. 794.31 Electrocardiogram Visit 9:17a Cardiology [place] (ECG) (EKG) Abnormal 427.31 Atrial Fibrillation 424.1 Aortic Valve Disorder 401.1 Hypertension Benign Office Visit 04/01/2010 9:17a [place] Fran Castrejon S. 786.50 Pain Chest [place] [...] Office Visit 03/29/2009 3:40p DO Not Use Physicist [employer] Sae, 565.0 Anal Fissure AT Becky Jain M.D. Plan of Treatment Future Appointment(s):05/13/2018 1:15 pm - [facility]
[2018-05-04] MEDS ORDERED: traMADol TAB* 50 MG PO ONE (06:10)
[2018-05-04] MEDS ORDERED: Morphine VIAL* 4 MG/ML VIAL (1 ml vial) IV ONE (06:14)
--- NOTE | 2018-05-04 06:21 | ED ---
Lower Extremity - HPI Summary HPI Summary: Patient is an 87-year-old female who presents to the [facility] presenting with worsening right arm and left hip pain. She states she fell on 04/24/18 and was seen in the ED. At that time she had x-rays of the hip and right wrist as well as a CT of the left hip. Fracture of the right wrist, however x-ray and CT of the left hip was negative. She has been favoring to the right hip due to pain since that time. She states yesterday at 3 AM she fell again, landing on her right arm and now is complaining of worsening left hip and right arm pain. She endorses pain to the right mid arm without pain to the clavicle or shoulder area. She continues to be able to abduct and adduct at the shoulder joint as well as externally rotate it internally rotate. She is most comfortable with internal rotation. She states since her fall at 3 AM, she has been unable to ambulate. She's been ambulating at home otherwise with a walker. She's been taking Tylenol and ibuprofen every 4 hours since 4 days ago. - History of Current Complaint Chief Complaint: EDHipPelvisInjury Stated Complaint: ARM PAIN Time Seen by Provider: 05/04/18 05:53 Hx Obtained From: Patient Mechanism Of Injury: Fall From A Standing Position Onset of Pain: Hours, Days Onset/Duration: Days Severity Initially: Moderate Severity Currently: Moderate Pain Intensity: 8 Pain Scale Used: 0-10 Numeric Timing: Constant Location: Is Discrete @ - left hip/ right upper arm Character Of Pain: Aching Associated Signs And Symptoms: Negative: Swelling, Redness, Bruising, Weakness, Dizziness Aggravating Factor(s): Standing, Ambulation Alleviating Factor(s): Rest - Risk Factors Gout Risk Factors: Negative DVT Risk Factors: Negative Septic Arthritis Risk Factor: Negative - Allergies/Home Medications Allergies/Adverse Reactions: Allergies Allergy/AdvReac Type Severity Reaction Status Date / Time No Known Allergies Allergy Verified 04/30/18 13:03 PMH/Surg Hx/FS Hx/Imm Hx Previously Healthy: Yes Endocrine/Hematology History: Reports: Hx Anticoagulant Therapy, Hx Anemia Denies: Hx Diabetes, Hx Thyroid Disease Cardiovascular History: Reports: Hx Congestive Heart Failure, Hx Coronary Artery Disease, Hx Hypercholesterolemia, Hx Hypertension, Hx Myocardial Infarction, Hx Peripheral Vascular Disease, Hx Syncope, Hx Valvular Heart Disease - Aortic Valvle replacement 2012, Other Cardiovascular Problems/ Disorders - aortic valve replacement Denies: Hx Angina, Hx Pacemaker/ICD Respiratory History: Denies: Hx Asthma, Hx Chronic Bronchitis - bronchitis in 2014, Hx Chronic Obstructive Pulmonary Disease (COPD) GI History: Reports: Hx Irritable Bowel Denies: Hx Gastrointestinal Bleed, Hx Hiatal Hernia, Hx Ulcer History: Denies: Hx Kidney Stones, Hx Renal Disease Musculoskeletal History: Reports: Hx Arthritis - GENERALIZED, Hx Back Problems, Other Musculoskeletal History - HAMMER TOE LEFT SECOND TOE Denies: Hx Osteoporosis Sensory History: Reports: Hx Cataracts - LENS IMPLANTS 2011, Hx Contacts or Glasses - glasses, Hx Vision Problem Denies: Hx Hearing Aid Opthamlomology History: Reports: Hx Cataracts - LENS IMPLANTS 2011, Hx Contacts or Glasses - glasses, Hx Vision Problem Neurological History: Denies: Hx Dementia, Hx Transient Ischemic Attacks (TIA) Psychiatric History: Denies: Hx Panic Disorder - Cancer History Hx Chemotherapy: No Hx Radiation Therapy: No - Surgical History Surgery Procedure, Year, and Place: AORTIC valve replacement, 2012,. , 1964, [facility]. Cataract surgery, [place], [facility] [place] [facility] LEFT FOOT. cardiac catherization with cardiac stent to RCA October 2016. cardioversions 2014,2015, 08/2016 Hx Anesthesia Reactions: No - Immunization History Date of Influenza Vaccine: 12/25 Hx Pertussis Vaccination: No Immunizations Up to Date: Yes Infectious Disease History: No Infectious Disease History: Denies: Hx Clostridium Difficile, Hx Hepatitis, Hx Human Immunodeficiency Virus (HIV), Hx of Known/Suspected MRSA, Hx Shingles, Hx Tuberculosis, Hx Known/ Suspected VRE, Hx Known/Suspected VRSA, History Other Infectious Disease, Traveled Outside the in Last 30 Days - Family History Known Family History: Positive: Hypertension - Social History Occupation: Unemployed Lives: With Family Alcohol Use: None Hx Substance Use: No Substance Use Type: Reports: None Hx Tobacco Use: No Smoking Status (MU): Never Smoked Tobacco Have You Smoked in the Last Year: No Review of Systems Constitutional: Negative Negative: Fever, Chills, Fatigue, Skin Diaphoresis Negative: Palpitations, Chest Pain Negative: Shortness Of Breath, Cough Genitourinary: Negative Positive: no symptoms reported, see HPI Positive: Arthralgia, Myalgia Skin: Negative Psychological: Normal All Other Systems Reviewed And Are Negative: Yes Physical Exam Triage Information Reviewed: Yes Vital Signs On Initial Exam: Initial Vitals Temp Pulse Resp BP Pulse Ox 98.3 F 69 16 200/69 95 05/04/18 05:45 05/04/18 05:45 05/04/18 05:45 05/04/18 05:45 05/04/18 05:45 Vital Signs Reviewed: Yes Appearance: Positive: Well-Appearing, Well-Nourished Skin: Positive: Warm, Skin Color Reflects Adequate Perfusion Head/Face: Positive: Normal Head/Face Inspection Eyes: Positive: EOMI, RC, Conjunctiva Clear Neck: Positive: Supple, Nontender, No Lymphadenopathy Respiratory/Lung Sounds: Positive: Clear to Auscultation, Breath Sounds Present Cardiovascular: Positive: RRR, Pulses are Symmetrical in both Upper and Lower Extremities Musculoskeletal: Positive: Pain @ - left hip pain and R upper arm pain Neurological: Positive: Sensory/Motor Intact, Alert, Oriented to Person Place, Time, Speech Normal Psychiatric: Positive: Affect/Mood Appropriate AVPU Assessment: Alert Diagnostics - Vital Signs Vital Signs Temp Pulse Resp BP Pulse Ox 05/04/18 06:01 68 98 05/04/18 05:54 70 200/69 94 05/04/18 05:49 70 99 05/04/18 05:45 98.3 F 69 16 200/69 95 - Laboratory Result Diagrams: 05/04/18 08:01 05/04/18 08:01 Lab Statement: Any lab studies that have been ordered have been reviewed, and results considered in the medical decision making process. - Radiology No standard instances Radiology Interpretation Completed By: Radiologist - IMPRESSION: DISPLACED ANGULATED LEFT SUBCAPITAL FEMORAL NECK FRACTURE. Chest Xray Radiology Interpretation Completed By: Radiologist - IMPRESSION: 1. FINDINGS SUGGESTIVE OF COPD, NO EVIDENCE FOR ACUTE FINDING. 2. CARDIOMEGALY, UNCHANGED. 3. POSTSURGICAL CHANGES. humerus Xray Radiology Interpretation Completed By: Radiologist - IMPRESSION: NO EVIDENCE FOR FRACTURE. Re-Evaluation - Re-Evaluation First Eval Change: Improved - patient feeling improved after morphine Lower Extremity Course/Dx - Course Course Of Treatment: during the course of treatment, the patient's evaluated for left hip and right arm injury after a fall at 3:00 in the morning 2 days ago. She states she fell 2 weeks ago and has been having continuing left hip and right arm pain. X-rays and CT of the hip were negative. She has been ambulating with walker since that time, however she continues to have pain. 2 days ago she endorses worsening pain after a fall to her right side. She continues to be able to abduct, adduct, internally and externally rotate at the shoulder joint. Denies any worsening pain to the right wrist. Right wrist in volar splint. Log rolled patient with pain to the L side. No obvious deformity noted. No internal rotation of the hip joint. Labs obtained, EKG and chest x-ray obtained. Discussed case with Dr. Weems. Discussed case with Dr. Dailey, orthopedics. Will be admitted for further evaluation. - Diagnoses Differential Diagnosis/HQI/PQRI: Positive: Contusion, Fracture (Closed), Fracture (Open), Sprain, Strain Provider Diagnoses: Subcapital fracture of neck of femur - Physician Notifications Discussed Care Of Patient With: Marianne Dailey Discharge - Sign-Out/Discharge Documenting (check all that apply): Patient Departure Patient Received Moderate/Deep Sedation with Procedure: No - Discharge Plan Condition: Stable Disposition: ADMITTED TO [facility] Referrals: Susy Quevedo MD [Primary Care Provider] - - Billing Disposition and Condition Condition: STABLE Disposition: Admitted to [facility]
[2018-05-04 08:14] LABS: Hematocrit 30 % (35-47); Hemoglobin 9.9 g/dl (12.0-16.0); Mean Corpuscular HGB Conc 34 g/dl (31-36); Mean Corpuscular Hemoglobin 32 pg (27-31); Mean Corpuscular Volume 94 fL (80-97); Mean Platelet Volume 7.3 fL (7.4-10.4); Platelet Count 178 10^3/ul (150-450); Red Blood Count 3.15 10^6/ul (4.00-5.40); Red Cell Distribution Width 14 % (10.5-15); White Blood Count 7.1 10^3/ul (3.5-10.8)
[2018-05-04 08:22] LABS: INR 1.82 (0.77-1.02)
[2018-05-04 08:38] LABS: Albumin 3.5 g/dL (3.2-5.2); Albumin/Globulin Ratio 1.3 (1-3); BUN/Creatinine Ratio 19.3 (8-20); C Reactive Protein 18.42 mg/L (<8.01); Calcium 8.8 mg/dL (8.6-10.3); EGFR African American 25.8 (>60); EGFR Non-African American 21.3 (>60); Globulin 2.8 g/dL (2-4); Potassium 3.7 mmol/L (3.5-5.0); Total Bilirubin 0.5 mg/dL (0.2-1.0); Total Protein 6.3 g/dL (6.4-8.9); Troponin I 0.01 ng/mL (<0.04)
[2018-05-04] MEDS ORDERED: Al Hydrox/Mg Hydrox/Simet LIQ* 30 ML UDC PO PRN (09:27)
[2018-05-04] MEDS ORDERED: Diazepam TAB(*) 5 MG PO PRN (09:32)
[2018-05-04] MEDS ORDERED: NS 0.9% 1000 ML** 1,000 ML IV SCH (09:45)
[2018-05-04] MEDS ORDERED: Morphine VIAL* 4 MG/ML VIAL (1 ml vial) ONE (09:47)
[2018-05-04] MEDS: Morphine VIAL* 4 MG/ML VIAL (1 ml vial) IV PRN ×2 (09:50→19:35)
[2018-05-04] MEDS ORDERED: Potassium Chlor TAB* 20 MEQ TAB.ER PO ONE (09:51)
[2018-05-04] MEDS: Amiodarone TAB* 200 MG PO SCH (10:09)
[2018-05-04 10:18] LABS: Magnesium 1.8 mg/dL (1.9-2.7)
[2018-05-04] MEDS ORDERED: Magnesium Sulfate 1 GM IV* 1 GM/100 ML BAG IV ONE (12:00)
[2018-05-04] MEDS: oxyCODONE/Acetamin 5/325 MG* TAB PO PRN ×2 (12:28→20:45)
[2018-05-04] MEDS: Carvedilol TAB* 3.125 MG PO SCH ×2 (12:28→20:46)
--- NOTE | 2018-05-04 13:06 | HP ---
CC: Dr. Quevedo.* HISTORY AND PHYSICAL: DATE OF ADMISSION: 05/04/18 PRIMARY CARE PHYSICIAN: Dr. Quevedo. TIME OF EVALUATION: 10. CHIEF COMPLAINT: Fall with left hip pain. HISTORY OF PRESENT ILLNESS: This is an 87-year-old female with a past medical history of coronary artery disease, atrial fibrillation on anticoagulation who initially fell with a mechanical fall on the , went to urgent care at that time, was diagnosed with a right radial head fracture, who was followed up with Dr. Montez, had a cast placed. She was complaining of left hip pain at that time, returned back to the emergency room on the for worsening hip pain. The patient had a lower extremity CT that was negative. The knee x-ray and the lumbar spine and femur x-ray that were unremarkable. She was sent home with pain control, and she was using a walker and a wheelchair to help transport herself due to the pain. In the morning of the at 3 a.m. when she was trying to transfer to the chair she slid, she underestimated the distance of the chair and she could not catch herself and she fell on her left hip. She continued to have worsening left hip pain and came to the emergency room this morning and was found to have displaced angulated left subcapital femoral neck fracture. The patient normally was ambulating with a cane up until she fell on the when she slipped on the ice and she has been using a walker and wheelchair. She denies any lightheadedness, no dizziness, no loss of consciousness, no presyncopal symptoms, no chest pain, no shortness of breath. She states she has 3 stairs in her house that she is able to get up and down without any chest pain or shortness of breath and was otherwise in her usual state of health. No fevers, no chills, no URI symptoms. No changes in her medications. In the emergency room, the patient had labs, imaging. She was given 4 mg of Zofran. Orthopedics, Dr. Dailey was contacted and deferred to the hospitalist service for further evaluation. PAST MEDICAL HISTORY: 1. Atrial fibrillation on Eliquis. Her last dose was 7 p.m. on 2:23. 2. History of a non-ST elevation AL in October 2016 status post bare metal stent to the right coronary artery, followed by Dr. Cisneros. 3. History of tachybrady syndrome. 4. History of aortic stenosis. 5. Hypertension. 6. Hyperlipidemia. 7. CKD stage 4. 8. History of chronic uterine mass, biopsy benign. 9. Right wrist fracture, cast in place. MEDICATIONS: 1. Potassium chloride 10 mEq p.o. daily. 2. Nitro sublingual as needed. 3. Multivitamin daily. 4. Lasix 40 mg daily. 5. Folic acid 1 mg daily. 6. Ferrous sulfate 325 mg p.o. daily. 7. Colace 100 mg p.o. t.i.d. 8. Cyanocobalamin 1000 mcg p.o. daily. 9. Coreg 3.125 mg p.o. b.i.d. 10. Calcium vitamin D3 two tabs p.o. daily. 11. Atorvastatin 40 mg p.o. daily. 12. Aspirin 81 mg daily. 13. Eliquis 10 mg p.o. b.i.d., last dose was 223. 14. Amiodarone 200 mg p.o. in the morning. ALLERGIES: No known drug allergies. FAMILY HISTORY: Father from a stroke at age 66. Mother at age 87. Unclear of the causes. SOCIAL HISTORY: As mentioned, the patient lives at home with her . She normally ambulates with a cane, but has been using a walker, in a wheelchair since her fall on the . No history of smoking, alcohol, or illicit drug use. Her health care proxy are two daughters who are at the bedside. Code status full code. REVIEW OF SYSTEMS: A 14-point review of systems as mentioned in the HPI, otherwise negative. PHYSICAL EXAMINATION GENERAL: In no acute distress, resting comfortably with her two daughters at the bedside. VITAL SIGNS: Temp is 98.3, pulse rate 72, respiratory rate 16, oxygen saturation 97% on room air, and blood pressure 160/56. HEENT: Head normocephalic. Pupils are pinpoint and reactive. Anicteric. Oropharynx: Mucous membranes are moist. NECK: Supple. No lymphadenopathy. RESPIRATORY: Diminished breath sounds. No wheezes, rhonchi, or rales. CARDIAC: Regular rate and rhythm. Harsh systolic murmur most prominent at the left sternal base. ABDOMEN: Soft, nontender, and nondistended. EXTREMITIES: Trace pretibial edema. Her left lower extremity is shortened and externally rotated. NEUROLOGIC: No gross focal neurologic deficits. Alert and oriented x3. LABORATORY DATA: White count of 7, hemoglobin 9.9, hematocrit 30, platelets 178. Sodium 138, potassium of 3.7, chloride 100, bicarb 29, BUN 42, creatinine 2.18, glucose 122, CRP is 18, troponin is 0.01. RADIOGRAPHIC DATA: Clavicle x-ray; no evidence for fracture. Humerus x-ray: No evidence for fracture. Pelvis CT: Fracture to the left femoral neck. Degenerative changes involving the spine as described above. Chest x-ray: Findings suggestive of COPD. No evidence for acute finding, cardiomegaly, or postsurgical changes. Hip and pelvis x-ray. Displaced, angulated, left subcapital femoral neck fracture. EKG shows normal sinus rhythm with a rate of 72. QTC of 496. ASSESSMENT: This is an 87-year-old female with a past medical history of atrial fibrillation on anticoagulation who presented to the emergency room after having a second fall on the , was found to have a left hip fracture. Mechanical fall. Assessment: The patient initially fell on the with a right radial head fracture, with a cast in place with progressively worsening left hip pain then had a subsequent fall in the morning of the and again another mechanical fall suffering a left femoral neck fracture. I spoke with Dr. Dailey because she took her Eliquis last evening, they will not proceed to the OR today. The patient is able to ambulate a few stairs without any cardiac symptoms. She does have a history of aortic stenosis. It appears back in 2017, there was discussion of about a pacemaker placement for her tachybrady syndrome. She is followed by Dr. Cisneros every 6 months. There has been no further discussion for a pacemaker placement. Plan: Per Ortho, we will continue to hold the Eliquis and aspirin. I am going to order an echocardiogram to evaluate her aortic stenosis and keep her on telemetry to monitor for any findings of tachybrady syndrome. There is no contraindication as long as her echo is unremarkable to proceeding with surgery. Her RCRI index is a 2 with a rate of nonfatal AL at 2.4%. I will recommend following up with Ortho to determine when the operative day will be set in place. We will continue pain management and bowel regimen. We will start her on a low-dose Valium as well for spasm as she was complaining of the leg spasm. CHRONIC MEDICAL PROBLEMS: 1. Paroxysmal atrial fibrillation. The patient is currently in sinus. We will continue her amiodarone. Keep her potassium close to 4 and Magnesium close to 2. Continue on her low-dose Coreg. We will hold her potassium and her Lasix for now. 2. Hyperlipidemia. Continue atorvastatin. 3. FEN. We will allow the patient to have a regular diet. 4. DVT prophylaxis. The patient scores a high risk, placed her on heparin subcu t.i.d. while she is off the Eliquis. 5. Code status, full code. PATIENT TIME: Greater than 50 minutes spent doing the history and physical, more than half time was spent in direct patient contact. [id number]/CPS #: [id number] MTDD
[2018-05-04 13:25] LABS: Erythrocyte Sed Rate 56 mm/Hr (0-30)
[2018-05-04] MEDS: Heparin VIAL(*) 5000 UNITS/ML VIAL (FIVE THOUSAND) SUBCUT SCH ×2 (14:03→22:06)
--- NOTE | 2018-05-04 14:21 | CONS ---
CONSULTATION REPORT: DATE OF CONSULT: 05/04/18 CHIEF COMPLAINT: Left hip pain. HISTORY OF PRESENT ILLNESS: Veronica is a 87-year-old woman who fell on and suffered a fracture of her right radial styloid. She also complained of left hip pain at that time. She had x-ray of the left hip initially and it was negative, but she continued to have hip pain. The pain worsened over the next 6 days, and repeat x-ray on the 04/30/[address] was negative for fracture[address] CT scan done that day as well was negative for fracture. Yesterday, she slid out of the walker chair she had been using and had significant increase in her left hip pain. X-ray and CT scan done at this point show a displaced fracture of the left femoral neck. Patient is on Eliquis for atrial fibrillation and having had a heart stent placed a [id number] ago. Her INR today was 1.8. PHYSICAL EXAMINATION: She is an elderly woman, in mild distress at rest. She is able to relate history easily. She has pain with range of motion of her left hip and some mild shortening of the lower extremity. Her skin is intact. IMPRESSION: Left femoral neck fracture after a fall 10 days ago and a second fall yesterday. PLAN: The patient is admitted to the hospitalist service. She is going to have an echocardiogram. She will be off her Eliquis and we will plan for surgical treatment in the form of a left hip hemiarthroplasty when she is cleared and the effect of the Eliquis has gone away. [id number]/CPS #: [id number] MTDD
[2018-05-04] MEDS: Ondansetron INJ* 2 MG/ML VIAL IV PRN (19:18)
[2018-05-04] MEDS: Docusate CAP* 100 MG PO SCH (20:46)
[2018-05-04] MEDS: Acetaminophen TAB* 325 MG PO PRN ×2 (20:47→23:37)
[2018-05-04] MEDS: Senna TAB PO SCH (20:49)
[2018-05-04 23:21] LABS: Influenza A Molecular NEGATIVE (Negative); Influenza B Molecular NEGATIVE (Negative)
[2018-05-04] MEDS: cefTRIAXone(*) 1 GM in NS 0.9% 50 ML* 50 ML IVPB SCH (23:58)
[2018-05-05 00:51] LABS: Urine Appearance Cloudy; Urine Bacteria Absent (Absent); Urine Bilirubin Negative (Negative); Urine Blood 3+ (Negative); Urine Color Yellow; Urine Glucose Negative (Negative); Urine Ketones Negative (Negative); Urine Nitrite Negative (Negative); Urine Protein Negative (Negative); Urine Red Blood Cell 3+(>10/hpf) (Absent); Urine Specific Gravity 1.021 (1.010-1.030); Urine Urobilinogen Negative (Negative); Urine White Blood Cell 1+(6-10/hpf) (Absent)
[2018-05-05 05:36] LABS: ABS Basophils 0 10^3/ul (0-0.2); ABS Eosinophils 0 10^3/ul (0-0.6); ABS Lymphocytes 0.5 10^3/ul (1.0-4.8); ABS Monocytes 0.7 10^3/ul (0-0.8); ABS Neutrophils 3.7 10^3/ul (1.5-7.7); ABS Nucleated RBC 0 10^3/ul; Eosinophil % 0.1 %; Hematocrit 26 % (35-47); Hemoglobin 8.8 g/dl (12.0-16.0); Lymphocyte % 10.2 %; Mean Corpuscular HGB Conc 34 g/dl (31-36); Mean Corpuscular Hemoglobin 32 pg (27-31); Mean Corpuscular Volume 95 fL (80-97); Mean Platelet Volume 7.2 fL (7.4-10.4); Nucleated Red Blood Cells % 0; Platelet Count 153 10^3/ul (150-450); Red Blood Count 2.78 10^6/ul (4.00-5.40); Red Cell Distribution Width 14 % (10.5-15); White Blood Count 4.9 10^3/ul (3.5-10.8)
[2018-05-05 05:56] LABS: Activated Partial Thrombo Time 35.4 seconds (26.0-36.3); INR 1.8 (0.77-1.02)
[2018-05-05] MEDS: Heparin VIAL(*) 5000 UNITS/ML VIAL (FIVE THOUSAND) SUBCUT SCH ×3 (05:56→21:34)
[2018-05-05 05:57] LABS: BUN/Creatinine Ratio 16.7 (8-20); EGFR Non-African American 25.6 (>60); Potassium 3.8 mmol/L (3.5-5.0)
[2018-05-05] MEDS: oxyCODONE/Acetamin 5/325 MG* TAB PO PRN (06:04)
[2018-05-05] MEDS: Morphine VIAL* 4 MG/ML VIAL (1 ml vial) IV PRN ×5 (06:14→23:07)
[2018-05-05] MEDS ORDERED: NS 0.9% 500 ML* 500 ML IV ONE ×2 (06:33→17:23)
[2018-05-05] MEDS ORDERED: Perflutren Lipid Microsphere* 3 ML VIAL ONE (08:08)
[2018-05-05] MEDS: Senna TAB PO SCH ×2 (08:45→21:34)
[2018-05-05] MEDS: Amiodarone TAB* 200 MG PO SCH (08:45)
[2018-05-05] MEDS: Folic Acid TAB* 1 MG PO SCH (08:45)
[2018-05-05] MEDS: Ferrous Sulfate TAB* 325 MG PO SCH (08:45)
[2018-05-05] MEDS: Carvedilol TAB* 3.125 MG PO SCH ×2 (08:46→21:34)
[2018-05-05] MEDS: Atorvastatin* 40 MG TAB PO SCH (08:46)
[2018-05-05] MEDS: Multivitamins/Minerals TAB PO SCH (08:46)
[2018-05-05] MEDS: Cyanocobalamin TAB* 500 MCG PO SCH (08:46)
[2018-05-05] MEDS: Docusate CAP* 100 MG PO SCH ×2 (08:46→21:34)
--- NOTE | 2018-05-05 10:06 | PN ---
Subjective Date of Service: 05/05/18 Interval History: febrile to 101 overnight--blood cultures sent denies cough, sob pain is controlled visiting with her granddaughter Objective Active Medications: Acetaminophen (Tylenol Tab*) 650 mg PO Q4H PRN PRN Reason: FEVER/PAIN Last Admin: 05/04/18 23:37 Dose: 650 mg Al Hydrox/Mg Hydrox/Simethicone (Maalox Plus*) 30 ml PO Q6H PRN PRN Reason: INDIGESTION Amiodarone HCl (C[facility]arone Tab*) [facility] [place] Last Admin: 05/05/18 08:45 Dose: 200 mg Atorvastatin Calcium (Lipitor*) 40 mg PO DAILY [facility] [place] Last Admin: 05/05/18 08:46 Dose: 40 mg Carvedilol (Coreg Tab*) 3.125 mg PO BID [facility] [place] Last Admin: 05/05/18 08:46 Dose: 3.125 mg Cyanocobalamin (Vitamin B12 Tab*) 1,000 mcg PO DAILY [facility] [place] Last Admin: 05/05/18 08:46 Dose: 1,000 mcg Diazepam (Valium Tab(*)) 2.5 mg PO Q8H PRN PRN Reason: spasm Docusate Sodium (Colace Cap*) 100 mg PO BID [facility] [place] Last Admin: 05/05/18 08:46 Dose: 100 mg Ferrous Sulfate (Ferrous Sulfate Tab*) 325 mg PO DAILY [facility] [place] Last Admin: 05/05/18 08:45 Dose: 325 mg Folic Acid (Folvite Tab*) [facility] [place] Last Admin: 05/05/18 08:45 Dose: 1 mg Heparin Sodium (Porcine) (Heparin Vial(*)) 5,000 units SUBCUT Q8HR [facility] [place] Last Admin: 05/05/18 05:56 Dose: 5,000 units Ceftriaxone Sodium 1 gm/ (Sodium Chloride) 50 mls @ 200 mls/hr IVPB Q24H [facility] [place] Last Admin: 05/04/18 23:58 Dose: 200 mls/hr Sodium Chloride (Ns 0.9% 500 Ml*) 500 mls @ 100 mls/hr IV ONCE ONE Stop: 05/05/18 11:32 Last Admin: 05/05/18 06:41 Dose: 100 mls/hr Morphine Sulfate (Morphine Vial*) 2 mg IV Q4H PRN PRN Reason: PAIN - MILD Last Admin: 05/05/18 06:14 Dose: 2 mg Multivitamins/Minerals (Theragran/Minerals Tab*) 1 tab PO DAILY [facility] Last Admin: 05/05/18 08:46 Dose: 1 tab Ondansetron HCl (Zofran Inj*) 4 mg IV Q4H PRN PRN Reason: NAUSEA/VOMITING Last Admin: 05/04/18 19:18 Dose: 4 mg Oxycodone/Acetaminophen (Percocet 5/325 Tab*) 1 tab PO Q4H PRN PRN Reason: Pain Last Admin: 05/05/18 06:04 Dose: 1 tab Senna (Senokot Tab*) 1 tab PO BID [facility] Last Admin: 05/05/18 08:45 Dose: 1 tab Vital Signs - 8 hr 05/05/18 05/05/18 05/05/18 03:23 06:04 06:14 Temperature 100.2 F Pulse Rate 63 Respiratory 16 16 20 Rate Blood Pressure 112/41 (mmHg) O2 Sat by Pulse 99 Oximetry 05/05/18 08:45 Temperature Pulse Rate Respiratory 14 Rate Blood Pressure (mmHg) O2 Sat by Pulse Oximetry Oxygen Devices in Use Now: Nasal Cannula Appearance: alert, well appearing, no distress Eyes: No Scleral Icterus Ears/Nose/Mouth/Throat: NL Teeth, Lips, Gums Neck: NL Appearance and Movements; NL JVP Respiratory: Symmetrical Chest Expansion and Respiratory Effort Cardiovascular: - - systolic murmur RUSB, no JVP. old sternotomy that is healed. Abdominal: NL Sounds; No Tenderness; No Distention Lymphatic: No Cervical Adenopathy Extremities: No Edema, - - right wrist is casted. left leg is externally rotated and shorter. both legs are warm with sensation in tact. distal pulses are 2+. Skin: No Rash or Ulcers Neurological: Alert and Oriented x 3, NL Sensation Result Diagrams: 05/05/18 05:22 05/05/18 05:22 Microbiology and Other Data: Microbiology 05/04/18 22:30 Influenza Types A,B Antigen - Final Nasal Specimen received for Influenza A/B Molecular testing Assess/Plan/Problems-Billing Assessment: - Patient Problems (1) Closed left hip fracture Current Visit: Yes Status: Acute Code(s): S72.002A - FRACTURE OF UNSP PART OF NECK OF LEFT FEMUR, INIT SNOMED Code(s): 771000802 Comment: plan for hemiarthroplasty last dose of eliquis was about 36 hours ago, prefer to hold for 48 hours She gets 1 point on the RCRI, which correlates with a 6% risk of major adverse cardiovascular events She has SIRS, however, which adds to her risk on the NSQIP Per NSQIP she has 1.5% risk of MACE (still average risk), but 20.8% risk of any complication! Prior to the OR, I would like to see her SIRS resolve (2) Aortic stenosis Current Visit: No Status: Acute Priority: High Code(s): I35.0 - NONRHEUMATIC AORTIC (VALVE) STENOSIS SNOMED Code(s): 85764045 Comment: s/p tissue valve replacement TTE pending today to ensure good function (3) Atrial fibrillation Current Visit: No Status: Acute Onset Date: 01/25/14 Code(s): I48.91 - UNSPECIFIED ATRIAL FIBRILLATION SNOMED Code(s): 44304342 Comment: rate controlled on amiodarone and coreg eliquis on hold, [id number], so would not bridge perioperatively (4) SIRS (systemic inflammatory response syndrome) Current Visit: Yes Status: Acute Code(s): R65.10 - SIRS OF NON-INFECTIOUS ORIGIN W/O ACUTE ORGAN DYSFUNCTION SNOMED Code(s): 415069275 Comment: she has no localizing complaints, and her labs and radiology have been unrevealing follow up blood cultrues (5) Coronary artery disease Current Visit: Yes Status: Acute Code(s): I25.10 - ATHSCL HEART DISEASE OF [place] CORONARY ARTERY W/O ANG PCTRS SNOMED Code(s): 07402051 Comment: stent to the RCA no ACS (6) SIM (acute kidney injury) Current Visit: Yes Status: Acute Code(s): N17.9 - ACUTE KIDNEY FAILURE, UNSPECIFIED SNOMED Code(s): 81875637 Comment: on CKD improving with IVF
--- NOTE | 2018-05-05 10:10 | ECHO ---
Patient: MARJAN BHAT [facility] Rec#: [id number] : 1930 Date: 05/05/2018 Age: 87y Height: 168 cm / 66.1 in Weight: 102 kg / 224.8 lbs Sex: F BSA: 2.11 Room#: 338 Admit Date#: 05/04/2018 Type: Inpatient Referring: Charlette Weems Reading: Jesus Alberto Sherman DO Breaker Up Machine Operator: Brittni Hernandez 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 Technical Comments: The study was technically limited due to the patient's inability to lay in the left lateral decubitus position. Due to fractured right hip. Definity used to enhance images. Completed at 0850. Left Ventricle: The left ventricular chamber size is normal. Mild concentric left ventricular hypertrophy is observed. Global left ventricular wall motion and contractility are within normal limits. There is normal left ventricular systolic function. The estimated ejection fraction is greater than 65%. Abnormal left ventricular diastolic function is observed. Left Atrium: The left atrium is moderate to severely dilated. Right Ventricle: The right ventricular chamber size and systolic function are within normal limits. Right Atrium: The right atrium is not well visualized. Aortic Valve: There is no evidence of aortic regurgitation. The mean gradient of the aortic valve is 13 mmHg. Singular obtained PW LVOT not felt to be reliable The highest aortic valve velocity was obtained with the standard probe from the A5C view. A bio-prosthetic aortic valve is present. The bio-prosthetic aortic valve appears to be functioning normally. Mitral Valve: There is mitral annular calcification. The mitral valve leaflets are mildly thickened. There is mild mitral regurgitation. There is borderline mitral stenosis. Tricuspid Valve: The tricuspid valve leaflets are normal. There is mild tricuspid regurgitation. The right ventricular systolic pressure is estimated at 51.56 mmHg. There is evidence of moderate pulmonary hypertension. There is no tricuspid stenosis. Pulmonic Valve: The pulmonic valve appears normal. There is no evidence of pulmonic regurgitation. There is no pulmonic stenosis. Pericardium: There is no significant pericardial effusion. Aorta: There is mild dilatation of the ascending aorta. There is no dilatation of the aortic arch. There is no dilation of the aortic root. Pulmonary Artery: The main pulmonary artery is not well visualized. Venous: The venous system is not well visualized. Contrast: Definity was used to optimize study. A total of 3 ml used. Intravenous contrast was used to enhance endocardial border definition. Conclusions The left ventricular chamber size is normal. Mild concentric left ventricular hypertrophy is observed. Global left ventricular wall motion and contractility are within normal limits. There is normal left ventricular systolic function. The estimated ejection fraction is 65-70%. The right ventricular chamber size and systolic function are within normal limits. A bio-prosthetic aortic valve is present. The bio-prosthetic aortic valve appears to be functioning normally. There is mild tricuspid regurgitation that may be underestimated in severity There is evidence of moderate pulmonary hypertension. Definity was used to optimize study. Compared to prior study from 08/2016, findings are similar PASP not able to estimated previously. Measurements Name Value Normal Range RVIDd (AP) 2D 2.9 cm (0.9 - 2.6) IVSd (2D) 1.2 cm (0.6 - 1) LVPWd (2D) 1.1 cm (0.6 - 1) LVIDd (2D) 4.2 cm (3.6 - 5.4) LVIDs (2D) 3.3 cm - LV FS (2D) 22 % (25 - 45) Aortic Annulus 1.9 cm (1.4 - 2.6) Ao root diameter (2D) 3.1 cm (2.1 - 3.5) Ascending Ao 3.5 cm (2.1 - 3.4) Aortic arch 1.9 cm (1.8 - 3.4) Descending Ao 0.4 cm - LA dimension (AP) 2D 5.6 cm (2.3 - 3.8) Name Value Normal Range MV E-wave Vmax 1.7 m/sec - MV deceleration time 193 msec - MV A-wave Vmax 0.5 m/sec - MV E:A ratio 3 ratio - LV septal e' Vmax 0.07 m/sec - LV lateral e' Vmax 0.09 m/sec - LV E:e' septal ratio 24.3 ratio - LV E:e' lateral ratio 18.9 ratio - Name Value Normal Range AV Vmax 2.7 m/sec - AV VTI 61.9 cm - AV peak gradient 29 mmHg - AV mean gradient 13 mmHg - SANDY (continuity Vmax) 0.8 cm2 - SANDY (continuity VTI) 0.7 cm2 - Name Value Normal Range MV Vmax 1.7 m/sec - MV VTI 48.2 cm - MV peak gradient 12 mmHg - MV mean gradient 2 mmHg - MV PHT 75 msec - MVA (PHT) 2.9 cm2 - MVA (continuity VTI) 1 cm2 - Name Value Normal Range TR Vmax 3.3 m/sec - TR peak gradient 61 mmHg - RAP 8 mmHg - RVSP 51.56 mmHg - Name Value Normal Range PV Vmax 0.9 m/sec - PV peak gradient 3 mmHg -
[2018-05-05 10:26] LABS: Troponin I 0.03 ng/mL (<0.04)
--- NOTE | 2018-05-05 11:01 | PN ---
Progress Note - Progress Note Date of Service: 05/05/18 SOAP: Subjective: []Patient seen at bedside. Her pain is well controlled. She has a known left femoral neck fracture that will require hemiarthroplasty when she is medically optimized. We are awaiting results of her echocardiogram and depending on findings, possible cardio consult. She sees Dr Cisneros as an outpatient. Her last dose of eliquis was saturday night, putting her at roughly 36 hours since last dose. She has a fever overnight, source unknown at this time. Her right wrist fracture occurred on and she is wearing a cast without complaints at this time. Objective: []General: NAD, appears comfortable, family at bedside. RUE: R wrist with cast in place. Able to flex and extend digits, sensation intact to light touch throughout exposed portion of extremity. Elbow and shoulder ROM nonpainful. LUE: Skin envelope intact, nontender to palpation, digit, wrist, elbow and shoulder AROM nonpainful, sensation intact to light touch. Radial pulse 2+ LLE: Skin envelope intact, extremity is shortened and externally rotated. Thigh is soft. Nontender to palpation of knee, lower leg, ankle, foot. DF/PF intact. DP1+. Calves soft and nontender RLE: skin envelope intact, nontender to palpation. AROM of hip, knee, ankle nonpainful. Assessment: []Left femoral neck fracture Plan: []NWB RUE, ice,wiggle fingers and elevate NWB LLE Needs left hip hemiarthroplasty. Medicine working towards optimization. echo, possible cards consult, source of fever pending. Remain on heparin until midnight before surgery, NPO midnight before surgery. Will need CBC, BMP, PT/INR morning of surgery Vital Signs Temp 100.2 F 05/05/18 03:23 Pulse 63 05/05/18 03:23 Resp 20 05/05/18 10:41 BP 112/41 05/05/18 03:23 Pulse Ox 99 05/05/18 03:23 Intake & Output 05/04/18 05/05/18 05/05/18 18:59 06:59 18:59 Intake Total 420 2230 150 Output Total 900 585 Balance -480 1645 150 Intake: IV Fluids 950 NS (0.9%) 950 Medicated IV 100 GEN - Magnesium 100 Oral 320 1280 150 Output: Jerez 900 585 Laboratory Last Values WBC 4.9 10^3/ul (3.5-10.8) 05/05/18 05:22 RBC 2.78 10^6/ul (4.00-5.40) L 05/05/18 05:22 Hgb 8.8 g/dl (12.0-16.0) L 05/05/18 05:22 Hct 26 % (35-47) L 05/05/18 05:22 MCV 95 fL (80-97) 05/05/18 05:22 MCH 32 pg (27-31) H 05/05/18 05:22 MCHC 34 g/dl (31-36) 05/05/18 05:22 RDW 14 % (10.5-15) 05/05/18 05:22 Plt Count 153 10^3/ul (150-450) 05/05/18 05:22 MPV 7.2 fL (7.4-10.4) L 05/05/18 05:22 Neut % (Auto) 75.2 % 05/05/18 05:22 Lymph % (Auto) 10.2 % 05/05/18 05:22 [place] % (Auto) 14.3 % 05/05/18 05:22 Eos % (Auto) 0.1 % 05/05/18 05:22 Baso % (Auto) 0.2 % 05/05/18 05:22 Absolute Neuts (auto) 3.7 10^3/ul (1.5-7.7) 05/05/18 05:22 Absolute Lymphs (auto) 0.5 10^3/ul (1.0-4.8) L 05/05/18 05:22 Absolute Monos (auto) 0.7 10^3/ul (0-0.8) 05/05/18 05:22 Absolute Eos (auto) 0 10^3/ul (0-0.6) 05/05/18 05:22 Absolute Basos (auto) 0 10^3/ul (0-0.2) 05/05/18 05:22 Absolute Nucleated RBC 0 10^3/ul 05/05/18 05:22 Nucleated RBC % 0 05/05/18 05:22 ESR 56 mm/Hr (0-30) H 05/04/18 08:01 INR (Anticoag Therapy) 1.80 (0.77-1.02) H 05/05/18 05:22 APTT 35.4 seconds (26.0-36.3) 05/05/18 05:22 Sodium 138 mmol/L (135-145) 05/05/18 05:22 Potassium 3.8 mmol/L (3.5-5.0) 05/05/18 05:22 Chloride 104 mmol/L (101-111) 05/05/18 05:22 Carbon Dioxide 29 mmol/L (22-32) 05/05/18 05:22 Anion Gap 5 mmol/L (2-11) 05/05/18 05:22 BUN 31 mg/dL (6-24) H 05/05/18 05:22 Creatinine 1.86 mg/dL (0.51-0.95) H 05/05/18 05:22 Est GFR ( Amer) 31.0 (>60) 05/05/18 05:22 Est GFR (Non-Af Amer) 25.6 (>60) 05/05/18 05:22 BUN/Creatinine Ratio 16.7 (8-20) 05/05/18 05:22 Glucose 90 mg/dL (70-100) 05/05/18 05:22 Calcium 8.0 mg/dL (8.6-10.3) L 05/05/18 05:22 Magnesium 2.0 mg/dL (1.9-2.7) 05/05/18 05:22 Total Bilirubin 0.50 mg/dL (0.2-1.0) 05/04/18 08:01 AST 23 U/L (13-39) 05/04/18 08:01 ALT 14 U/L (7-52) 05/04/18 08:01 Alkaline Phosphatase 64 U/L (34-104) 05/04/18 08:01 Troponin I 0.03 ng/mL (<0.04) 05/05/18 05:22 C-Reactive Protein 18.42 mg/L (<8.01) H 05/04/18 08:01 Total Protein 6.3 g/dL (6.4-8.9) L 05/04/18 08:01 Albumin 3.5 g/dL (3.2-5.2) 05/04/18 08:01 Globulin 2.8 g/dL (2-4) 05/04/18 08:01 Albumin/Globulin Ratio 1.3 (1-3) 05/04/18 08:01 Urine Color Yellow 05/04/18 23:57 Urine Appearance Cloudy 05/04/18 23:57 Urine pH 5.0 (5-9) 05/04/18 23:57 Ur Specific [place] 1.021 (1.010-1.030) 05/04/18 23:57 Urine Protein Negative (Negative) 05/04/18 23:57 Urine Ketones Negative (Negative) 05/04/18 23:57 Urine Blood 3+ (Negative) A 05/04/18 23:57 Urine Nitrate Negative (Negative) 05/04/18 23:57 Urine Bilirubin Negative (Negative) 05/04/18 23:57 Urine Urobilinogen Negative (Negative) 05/04/18 23:57 Ur Leukocyte Esterase Negative (Negative) 05/04/18 23:57 Urine WBC (Auto) 1+(6-10/hpf) (Absent) A 05/04/18 23:57 Urine RBC (Auto) 3+(>10/hpf) (Absent) A 05/04/18 23:57 Urine Bacteria Absent (Absent) 05/04/18 23:57 Hyaline Casts Present (Absent) A 05/04/18 23:57 Urine Glucose Negative (Negative) 05/04/18 23:57 Influenza A (Rapid) Negative (Negative) 05/04/18 23:09 Influenza B (Rapid) Negative (Negative) 05/04/18 23:09
[2018-05-05] MEDS: Ondansetron INJ* 2 MG/ML VIAL IV PRN ×2 (11:37→18:30)
[2018-05-05] MEDS ORDERED: Buffered Lidocaine 1% SYRIN* 1 ML/SYRINGE INTRADERM ONE (12:53)
[2018-05-05] MEDS: cefTRIAXone(*) 1 GM in NS 0.9% 50 ML* 50 ML IVPB SCH (23:17)
[2018-05-06] MEDS: Heparin VIAL(*) 5000 UNITS/ML VIAL (FIVE THOUSAND) SUBCUT SCH (04:27)
[2018-05-06] MEDS: Morphine VIAL* 4 MG/ML VIAL (1 ml vial) IV PRN ×2 (04:31→10:43)
[2018-05-06] MEDS: Lactated Ringers 1000 ML Bag* 1,000 ML IV SCH ×3 (06:14→23:52)
[2018-05-06 07:05] LABS: ABS Basophils 0 10^3/ul (0-0.2); ABS Eosinophils 0 10^3/ul (0-0.6); ABS Lymphocytes 0.9 10^3/ul (1.0-4.8); ABS Monocytes 1.1 10^3/ul (0-0.8); ABS Nucleated RBC 0 10^3/ul; Eosinophil % 0.1 %; Hematocrit 26 % (35-47); Hemoglobin 8.7 g/dl (12.0-16.0); Lymphocyte % 12.5 %; Mean Corpuscular HGB Conc 34 g/dl (31-36); Mean Corpuscular Hemoglobin 32 pg (27-31); Mean Corpuscular Volume 95 fL (80-97); Mean Platelet Volume 7.7 fL (7.4-10.4); Nucleated Red Blood Cells % 0; Platelet Count 139 10^3/ul (150-450); Red Blood Count 2.75 10^6/ul (4.00-5.40); Red Cell Distribution Width 14 % (10.5-15); White Blood Count 6.9 10^3/ul (3.5-10.8)
[2018-05-06 07:12] LABS: INR 1.51 (0.77-1.02)
[2018-05-06 07:18] LABS: C Reactive Protein 112.78 mg/L (<8.01); Calcium 8.2 mg/dL (8.6-10.3); EGFR African American 41.7 (>60); EGFR Non-African American 34.4 (>60); Magnesium 1.9 mg/dL (1.9-2.7); Potassium 3.8 mmol/L (3.5-5.0)
[2018-05-06] MEDS: Amiodarone TAB* 200 MG PO SCH (09:00)
[2018-05-06] MEDS: Atorvastatin* 40 MG TAB PO SCH (09:00)
[2018-05-06] MEDS: Cyanocobalamin TAB* 500 MCG PO SCH (09:01)
[2018-05-06] MEDS: Carvedilol TAB* 3.125 MG PO SCH ×2 (09:01→22:40)
[2018-05-06] MEDS: Docusate CAP* 100 MG PO SCH ×2 (09:02→22:40)
[2018-05-06] MEDS: Folic Acid TAB* 1 MG PO SCH (09:02)
[2018-05-06] MEDS: Senna TAB PO SCH ×2 (09:02→22:40)
[2018-05-06] MEDS: Ferrous Sulfate TAB* 325 MG PO SCH (09:02)
[2018-05-06] MEDS: Multivitamins/Minerals TAB PO SCH (09:03)
[2018-05-06] MEDS: oxyCODONE/Acetamin 5/325 MG* TAB PO PRN (10:44)
--- NOTE | 2018-05-06 11:00 | PN ---
Progress Note - Progress Note Date of Service: 05/06/18 SOAP: Subjective: []Patient seen at bedside. She has a left femoral neck fracture that requires a hemiarthroplasty today. Her last dose of eliquis was Saturday night. She is optimized for today's procedure. Denies chest pain, shortness of breath, dizziness, nausea, vomiting, diarrhea, dysuria. Objective: []General: NAD, appears comfortable RUE: R wrist with cast in place. Able to flex and extend digits, sensation intact to light touch throughout exposed portion of extremity. Elbow and shoulder ROM intact LLE: Skin envelope intact, extremity is shortened and externally rotated. Thigh is soft. Nontender to palpation of knee, lower leg, ankle, foot. DF/PF intact. DP1+. Calves soft and nontender Assessment: []Left femoral neck fracture Plan: []NWB RUE, ice,wiggle fingers and elevate NWB LLE, to OR today for right hip hemiarthroplasty with Dr Johnson Low grade fevers continue though blood cultures, rapid flu are negative and no source of infection evident on UA, CXR Optimized for surgery per medicine - NPO and hold heparin, do continue SCDs today Vital Signs Temp 99.4 F 05/06/18 07:42 Pulse 64 05/06/18 07:42 Resp 18 05/06/18 10:44 BP 122/40 05/06/18 07:42 Pulse Ox 92 05/06/18 08:00 Intake & Output 05/05/18 05/06/18 05/06/18 18:59 06:59 18:59 Intake Total 1646 1080 Output Total 200 600 Balance 1446 480 Intake: IV Fluids 1496 80 ABX - CEFTRIAXONE 50 NS (0.9%) 1496 30 Oral 150 1000 Output: Urine 250 Jerez 200 350 Laboratory Last Values WBC 6.9 10^3/ul (3.5-10.8) 05/06/18 06:13 RBC 2.75 10^6/ul (4.00-5.40) L 05/06/18 06:13 Hgb 8.7 g/dl (12.0-16.0) L 05/06/18 06:13 Hct 26 % (35-47) L 05/06/18 06:13 MCV 95 fL (80-97) 05/06/18 06:13 MCH 32 pg (27-31) H 05/06/18 06:13 MCHC 34 g/dl (31-36) 05/06/18 06:13 RDW 14 % (10.5-15) 05/06/18 06:13 Plt Count 139 10^3/ul (150-450) L 05/06/18 06:13 MPV 7.7 fL (7.4-10.4) 05/06/18 06:13 Neut % (Auto) 71.5 % 05/06/18 06:13 Lymph % (Auto) 12.5 % 05/06/18 06:13 [place] % (Auto) 15.5 % 05/06/18 06:13 Eos % (Auto) 0.1 % 05/06/18 06:13 Baso % (Auto) 0.4 % 05/06/18 06:13 Absolute Neuts (auto) 5.0 10^3/ul (1.5-7.7) 05/06/18 06:13 Absolute Lymphs (auto) 0.9 10^3/ul (1.0-4.8) L 05/06/18 06:13 Absolute Monos (auto) 1.1 10^3/ul (0-0.8) H 05/06/18 06:13 Absolute Eos (auto) 0 10^3/ul (0-0.6) 05/06/18 06:13 Absolute Basos (auto) 0 10^3/ul (0-0.2) 05/06/18 06:13 Absolute Nucleated RBC 0 10^3/ul 05/06/18 06:13 Nucleated RBC % 0 05/06/18 06:13 ESR 56 mm/Hr (0-30) H 05/04/18 08:01 INR (Anticoag Therapy) 1.51 (0.77-1.02) H 05/06/18 06:13 APTT 35.4 seconds (26.0-36.3) 05/05/18 05:22 Sodium 134 mmol/L (135-145) L 05/06/18 06:13 Potassium 3.8 mmol/L (3.5-5.0) 05/06/18 06:13 Chloride 101 mmol/L (101-111) 05/06/18 06:13 Carbon Dioxide 28 mmol/L (22-32) 05/06/18 06:13 Anion Gap 5 mmol/L (2-11) 05/06/18 06:13 BUN 23 mg/dL (6-24) 05/06/18 06:13 Creatinine 1.44 mg/dL (0.51-0.95) H 05/06/18 06:13 Est GFR ( Amer) 41.7 (>60) 05/06/18 06:13 Est GFR (Non-Af Amer) 34.4 (>60) 05/06/18 06:13 BUN/Creatinine Ratio 16.0 (8-20) 05/06/18 06:13 Glucose 92 mg/dL (70-100) 05/06/18 06:13 Calcium 8.2 mg/dL (8.6-10.3) L 05/06/18 06:13 Magnesium 1.9 mg/dL (1.9-2.7) 05/06/18 06:13 Total Bilirubin 0.50 mg/dL (0.2-1.0) 05/04/18 08:01 AST 23 U/L (13-39) 05/04/18 08:01 ALT 14 U/L (7-52) 05/04/18 08:01 Alkaline Phosphatase 64 U/L (34-104) 05/04/18 08:01 Troponin I 0.03 ng/mL (<0.04) 05/05/18 05:22 C-Reactive Protein 112.78 mg/L (<8.01) H 05/06/18 06:13 Total Protein 6.3 g/dL (6.4-8.9) L 05/04/18 08:01 Albumin 3.5 g/dL (3.2-5.2) 05/04/18 08:01 Globulin 2.8 g/dL (2-4) 05/04/18 08:01 Albumin/Globulin Ratio 1.3 (1-3) 05/04/18 08:01 Urine Color Yellow 05/04/18 23:57 Urine Appearance Cloudy 05/04/18 23:57 Urine pH 5.0 (5-9) 05/04/18 23:57 Ur Specific [place] 1.021 (1.010-1.030) 05/04/18 23:57 Urine Protein Negative (Negative) 05/04/18 23:57 Urine Ketones Negative (Negative) 05/04/18 23:57 Urine Blood 3+ (Negative) A 05/04/18 23:57 Urine Nitrate Negative (Negative) 05/04/18 23:57 Urine Bilirubin Negative (Negative) 05/04/18 23:57 Urine Urobilinogen Negative (Negative) 05/04/18 23:57 Ur Leukocyte Esterase Negative (Negative) 05/04/18 23:57 Urine WBC (Auto) 1+(6-10/hpf) (Absent) A 05/04/18 23:57 Urine RBC (Auto) 3+(>10/hpf) (Absent) A 05/04/18 23:57 Urine Bacteria Absent (Absent) 05/04/18 23:57 Hyaline Casts Present (Absent) A 05/04/18 23:57 Urine Glucose Negative (Negative) 05/04/18 23:57 Influenza A (Rapid) Negative (Negative) 05/04/18 23:09 Influenza B (Rapid) Negative (Negative) 05/04/18 23:09 Blood Type O Positive 05/05/18 05:22 Antibody Screen Negative 05/05/18 05:22
[2018-05-06 12:15] LABS: INR 1.44 (0.77-1.02)
--- NOTE | 2018-05-06 12:57 | PN ---
Subjective Date of Service: 05/06/18 Interval History: HOSPITALIST PROGRESS NOTE Patient seen and examined at bedside. Care reviewed and d/w Carlitos Ayala RN. She feels better this AM. Had some issues with her Jerez leaking overnight, but was able to rest after problem fixed. Hip pain is well controlled. She denies chest pain, palpitations, dyspnea. Family History: Unchanged from Admission Social History: Unchanged from Admission Past Medical History: Unchanged from Admission Objective Active Medications: Acetaminophen (Tylenol Tab*) 650 mg PO Q4H PRN PRN Reason: FEVER/PAIN Last Admin: 05/04/18 23:37 Dose: 650 mg Al Hydrox/Mg Hydrox/Simethicone (Maalox Plus*) 30 ml PO Q6H PRN PRN Reason: INDIGESTION Amiodarone HCl (Cordarone Tab*) 200 mg PO QAM [facility] Last Admin: 05/06/18 09:00 Dose: 200 mg Atorvastatin Calcium (Lipitor*) 40 mg PO DAILY [facility] Last Admin: 05/06/18 09:00 Dose: 40 mg Carvedilol (Coreg Tab*) 3.125 mg PO BID [facility] Last Admin: 05/06/18 09:01 Dose: 3.125 mg Cyanocobalamin (Vitamin B12 Tab*) 1,000 mcg PO DAILY [facility] Last Admin: 05/06/18 09:01 Dose: 1,000 mcg Diazepam (Valium Tab(*)) 2.5 mg PO Q8H PRN PRN Reason: spasm Docusate Sodium (Colace Cap*) 100 mg PO BID [facility] Last Admin: 05/06/18 09:02 Dose: 100 mg Ferrous Sulfate (Ferrous Sulfate Tab*) 325 mg PO DAILY [facility] Last Admin: 05/06/18 09:02 Dose: 325 mg Folic Acid (Folvite Tab*) 1 mg PO QAM [facility] Last Admin: 05/06/18 09:02 Dose: 1 mg Ceftriaxone Sodium 1 gm/ (Sodium Chloride) 50 mls @ 200 mls/hr IVPB Q24H [facility] Last Admin: 05/05/18 23:17 Dose: 200 mls/hr Lactated Ringer's (Lactated Ringers 1000 Ml Bag*) 1,000 mls @ 125 mls/hr IV PER RATE [facility] Last Admin: 05/06/18 06:14 Dose: 125 mls/hr Morphine Sulfate (Morphine Vial*) 2 mg IV Q4H PRN PRN Reason: PAIN - MILD Last Admin: 05/06/18 10:43 Dose: 2 mg Morphine Sulfate (Morphine Vial*) 4 mg IV Q4H PRN PRN Reason: NOT SPECIFIED Last Admin: 05/06/18 04:31 Dose: 4 mg Multivitamins/Minerals (Theragran/Minerals Tab*) 1 tab PO DAILY [facility] Last Admin: 05/06/18 09:03 Dose: 1 tab Ondansetron HCl (Zofran Inj*) 4 mg IV Q4H PRN PRN Reason: NAUSEA/VOMITING Last Admin: 05/05/18 18:30 Dose: 4 mg Oxycodone/Acetaminophen (Percocet 5/325 Tab*) 1 tab PO Q4H PRN PRN Reason: Pain Last Admin: 05/06/18 10:44 Dose: 1 tab Senna (Senokot Tab*) 1 tab PO BID [facility] Last Admin: 05/06/18 09:02 Dose: 1 tab Vital Signs - 8 hr 05/06/18 05/06/18 05/06/18 06:14 07:26 07:42 Temperature 99.2 F 99.4 F Pulse Rate 63 64 Respiratory 16 17 15 Rate Blood Pressure 138/41 122/40 (mmHg) O2 Sat by Pulse 94 92 Oximetry 05/06/18 05/06/18 05/06/18 08:00 10:43 10:44 Temperature Pulse Rate Respiratory 18 18 18 Rate Blood Pressure (mmHg) O2 Sat by Pulse 92 Oximetry Oxygen Devices in Use Now: None Appearance: Elderly obese lady lying in bed in [facility]. Eyes: No Scleral Icterus Ears/Nose/Mouth/Throat: Mucous Membranes Moist Neck: Trachea Midline Respiratory: Symmetrical Chest Expansion and Respiratory Effort, Clear to Auscultation Cardiovascular: RRR - Normal S1 and S2, + systolic murmur Abdominal: NL Sounds; No Tenderness; No Distention Extremities: No Edema, - - sensation intact, good capillary refill, good pulses bilaterally. Right wrist cast in place Neurological: Alert and Oriented x 3, NL Muscle Strength and Tone Result Diagrams: 05/06/18 06:13 05/06/18 06:13 Assess/Plan/Problems-Billing Assessment: Mrs Sherwood is an 87yo F with PMH of obseity with BMI 36, Afib on Eliquis, CAD s/ p NSTEMI with BMS to RCA 2017, tachybrady syndrome, s/p AVR (biological), HTN , HLD, CKD stage 3-4, recent right wrist fracture, who presented to ED after a fall, found to have left femoral neck fracture. - Patient Problems (1) SIRS (systemic inflammatory response syndrome) Comment: - Met SIRS criteria with fever and tachypnea, but no clear source. - W/u so far has been unrevealing - negative UA/urine culture, blood cultures show no growth to date, Influenza negative, no significant rashes, CxR no infiltrates. - Her had gastroenteritis and she had some N/V on day of admission, but symptoms resolved. - Fever may be secondary to viral syndrome. - Will continue Ceftriaxone empirically for now, but if cultures remain negative by tomorrow, should d/c it. (2) Closed left hip fracture Comment: - She has no complaints of chest pain, dyspnea, or palpitations. - EKG shows no acute ischemic changes. - Echo shows preserved EF with well functioning prosthetic biological AV. - Eliquis on hold >48h. - D/w Cardiology (Dr Lees) - no further cardiac w/u indicated. - RCRI is 1 predicting a 1-1.3% risk of cardiac complications. - NSQIP ~1% cardiac complications, 11.6% risk of any complications now her infection appears to be resolved. - Medically optimized for proposed procedure. (3) SIM (acute kidney injury) Comment: - on CKD - improving with IVF (4) Coronary artery disease Comment: - S/p stent in 2017 - d/w Cardiology - she's asymptomatic, has no signs of acute ischemia - no further w/u recommended. - Continue low dose Aspirin, Coreg, Atorvastatin periop. (5) Atrial fibrillation Comment: - In NSR at this time. - Continue amiodarone and coreg. - Eliquis on hold, resume when okay with Ortho. (6) DVT prophylaxis Comment: - Resume Eliquis post op (7) Full code status Status and Disposition: Inpatient. Daughter updated at bedside. Dr Johnson and Ayesha Tapia PA updated.
[2018-05-06] MEDS ORDERED: Lidocaine 2% PF * 5 ML VIAL ONE (16:09)
[2018-05-06] MEDS ORDERED: fentaNYL* 50 MCG/ML 2 ML VIAL (100 MCG VIAL) ONE ×2 (16:09→20:52)
[2018-05-06] MEDS ORDERED: Propofol* 10 MG/ML 20 ML BTL ONE (16:09)
[2018-05-06] MEDS ORDERED: Succinylcholine* 20 MG/ML 10 ML VIAL ONE (16:11)
[2018-05-06] MEDS ORDERED: Naloxone* 0.4 MG/ML 1 ML VIAL IV PRN (16:28)
[2018-05-06] MEDS ORDERED: fentaNYL* 50 MCG/ML 2 ML VIAL (100 MCG VIAL) IV PRN (16:28)
[2018-05-06] MEDS ORDERED: DiMENhydriNATE IV* 50 MG/ML VIAL IV PUSH PRN (16:28)
[2018-05-06] MEDS ORDERED: oxyCODONE TAB* 5 MG TAB PO PRN (16:28)
[2018-05-06] MEDS ORDERED: Acetaminophen IV 1GM/100ML * 1,000 MG/100 ML VIAL IVPB ONE (16:28)
[2018-05-06] MEDS ORDERED: ceFAZolin 2 GM PREMIX in ORs 2 GM/50 ML BAG IVPB ONE (16:50)
[2018-05-06] MEDS ORDERED: EPHEDrine (Pressors)* 50 MG/ML VIAL ONE (17:19)
[2018-05-06 18:48] LABS: ABS Basophils 0 10^3/ul (0-0.2); ABS Eosinophils 0 10^3/ul (0-0.6); ABS Lymphocytes 0.8 10^3/ul (1.0-4.8); ABS Monocytes 0.8 10^3/ul (0-0.8); ABS Neutrophils 5.4 10^3/ul (1.5-7.7); ABS Nucleated RBC 0 10^3/ul; Eosinophil % 0.5 %; Hematocrit 24 % (35-47); Hemoglobin 8.4 g/dl (12.0-16.0); Mean Corpuscular HGB Conc 34 g/dl (31-36); Mean Corpuscular Hemoglobin 32 pg (27-31); Mean Corpuscular Volume 94 fL (80-97); Mean Platelet Volume 7.1 fL (7.4-10.4); Nucleated Red Blood Cells % 0; Platelet Count 157 10^3/ul (150-450); Red Blood Count 2.59 10^6/ul (4.00-5.40); Red Cell Distribution Width 14 % (10.5-15); White Blood Count 7.1 10^3/ul (3.5-10.8)
[2018-05-06] MEDS ORDERED: Ondansetron INJ* 2 MG/ML VIAL ONE (19:33)
[2018-05-06] MEDS ORDERED: Acetaminophen IV 1GM/100ML * 100 ML ONE (20:58)
[2018-05-06] MEDS: cefTRIAXone(*) 1 GM in NS 0.9% 50 ML* 50 ML IVPB SCH (23:48)
[2018-05-07] MEDS: Morphine VIAL* 4 MG/ML VIAL (1 ml vial) IV PRN ×2 (01:36→10:16)
[2018-05-07] MEDS: Ondansetron INJ* 2 MG/ML VIAL IV PRN (03:49)
[2018-05-07 05:19] LABS: ABS Basophils 0 10^3/ul (0-0.2); ABS Eosinophils 0 10^3/ul (0-0.6); ABS Lymphocytes 0.3 10^3/ul (1.0-4.8); ABS Monocytes 1.1 10^3/ul (0-0.8); ABS Neutrophils 10.6 10^3/ul (1.5-7.7); ABS Nucleated RBC 0 10^3/ul; Eosinophil % 0 %; Hematocrit 23 % (35-47); Hemoglobin 7.4 g/dl (12.0-16.0); Lymphocyte % 2.8 %; Mean Corpuscular HGB Conc 33 g/dl (31-36); Mean Corpuscular Hemoglobin 31 pg (27-31); Mean Corpuscular Volume 94 fL (80-97); Mean Platelet Volume 7.2 fL (7.4-10.4); Nucleated Red Blood Cells % 0; Platelet Count 138 10^3/ul (150-450); Red Cell Distribution Width 14 % (10.5-15)
[2018-05-07 05:30] LABS: INR 1.37 (0.77-1.02)
[2018-05-07 05:48] LABS: BUN/Creatinine Ratio 17.3 (8-20); EGFR African American 48.2 (>60); EGFR Non-African American 39.8 (>60); Potassium 4.3 mmol/L (3.5-5.0)
[2018-05-07] MEDS: Lactated Ringers 1000 ML Bag* 1,000 ML IV SCH ×2 (06:56→19:33)
[2018-05-07] MEDS: Acetaminophen TAB* 325 MG PO PRN (07:29)
[2018-05-07] MEDS: [UNRECOGNIZED DRUG - OTHER] IVPB SCH ×6 (07:41→23:35)
[2018-05-07] MEDS: Atorvastatin* 40 MG TAB PO SCH (08:32)
[2018-05-07] MEDS: Docusate CAP* 100 MG PO SCH ×2 (08:32→20:39)
[2018-05-07] MEDS: Carvedilol TAB* 3.125 MG PO SCH ×2 (08:32→20:39)
[2018-05-07] MEDS: Apixaban* 5 MG TAB PO SCH ×2 (08:32→20:38)
[2018-05-07] MEDS: Senna TAB PO SCH ×2 (08:32→20:38)
[2018-05-07] MEDS: Cyanocobalamin TAB* 500 MCG PO SCH (08:32)
[2018-05-07] MEDS: Multivitamins/Minerals TAB PO SCH (08:33)
[2018-05-07] MEDS: Folic Acid TAB* 1 MG PO SCH (08:33)
[2018-05-07] MEDS: Amiodarone TAB* 200 MG PO SCH (08:33)
[2018-05-07] MEDS: Aspirin EC TAB* 81 MG TAB.EC PO SCH (08:33)
[2018-05-07] MEDS: Ferrous Sulfate TAB* 325 MG PO SCH (08:33)
--- NOTE | 2018-05-07 09:26 | PN ---
Subjective Date of Service: 05/07/18 Interval History: Pt is feeling ok this AM. She states she feels somewhat hot and sweaty but thinks it is related to the room temperature but I informed her that I think it is actually related to the fever she has which is not from the room being hot. She has mild pain in the R groin. No issues with CP or SOB. No BM yet. Family History: Unchanged from Admission Social History: Unchanged from Admission Past Medical History: Unchanged from Admission Objective Active Medications: Acetaminophen (Tylenol Tab*) 650 mg PO Q4H PRN PRN Reason: FEVER/PAIN Last Admin: 05/07/18 07:29 Dose: 650 mg Al Hydrox/Mg Hydrox/Simethicone (Maalox Plus*) 30 ml PO Q6H PRN PRN Reason: INDIGESTION Amiodarone HCl (Cordarone Tab*) 200 mg PO QAM [facility] Last Admin: 05/07/18 08:33 Dose: 200 mg Apixaban (Eliquis*) 5 mg PO BID [facility] Last Admin: 05/07/18 08:32 Dose: 5 mg Aspirin (Aspirin Ec Tab*) 81 mg PO DAILY [facility] Last Admin: 05/07/18 08:33 Dose: 81 mg Atorvastatin Calcium (Lipitor*) 40 mg PO DAILY [facility] Last Admin: 05/07/18 08:32 Dose: 40 mg Carvedilol (Coreg Tab*) 3.125 mg PO BID [facility] Last Admin: 05/07/18 08:32 Dose: 3.125 mg Cyanocobalamin (Vitamin B12 Tab*) 1,000 mcg PO DAILY [facility] Last Admin: 05/07/18 08:32 Dose: 1,000 mcg Diazepam (Valium Tab(*)) 2.5 mg PO Q8H PRN PRN Reason: spasm Last Admin: 05/07/18 03:56 Dose: 2.5 mg Docusate Sodium (Colace Cap*) 100 mg PO BID [facility] Last Admin: 05/07/18 08:32 Dose: 100 mg Ferrous Sulfate (Ferrous Sulfate Tab*) 325 mg PO DAILY [facility] Last Admin: 05/07/18 08:33 Dose: 325 mg Folic Acid (Folvite Tab*) 1 mg PO QAM [facility] Last Admin: 05/07/18 08:33 Dose: 1 mg Lactated Ringer's (Lactated Ringers 1000 Ml Bag*) 1,000 mls @ 100 mls/hr IV PER RATE [facility] Last Admin: 05/07/18 06:56 Dose: 125 mls/hr Cefazolin Sodium 1 gm/ Sodium (Chloride) 50 mls @ 200 mls/hr IVPB Q8H [facility] Stop: 05/09/18 00:14 Last Admin: 05/07/18 07:41 Dose: 200 mls/hr Morphine Sulfate (Morphine Vial*) 2 mg IV Q4H PRN PRN Reason: PAIN - MILD Last Admin: 05/06/18 10:43 Dose: 2 mg Morphine Sulfate (Morphine Vial*) 4 mg IV Q4H PRN PRN Reason: NOT SPECIFIED Last Admin: 05/07/18 01:36 Dose: 4 mg Multivitamins/Minerals (Theragran/Minerals Tab*) 1 tab PO DAILY [facility] Last Admin: 05/07/18 08:33 Dose: 1 tab Ondansetron HCl (Zofran Inj*) 4 mg IV Q4H PRN PRN Reason: NAUSEA/VOMITING Last Admin: 05/07/18 03:49 Dose: 4 mg Oxycodone/Acetaminophen (Percocet 5/325 Tab*) 1 tab PO Q4H PRN PRN Reason: Pain Last Admin: 05/06/18 10:44 Dose: 1 tab Oxycodone/Acetaminophen (Percocet 5/325 Tab*) 2 tab PO Q4H PRN PRN Reason: SEVERE PAIN Senna (Senokot Tab*) 1 tab PO BID [facility] Last Admin: 05/07/18 08:32 Dose: 1 tab Vital Signs - 8 hr 05/07/18 05/07/18 05/07/18 01:36 03:46 03:56 Temperature 97.7 F Pulse Rate 92 Respiratory 20 17 18 Rate Blood Pressure 140/25 (mmHg) O2 Sat by Pulse 94 Oximetry 05/07/18 05/07/18 05/07/18 03:58 05:09 06:21 Temperature Pulse Rate Respiratory 18 18 Rate Blood Pressure (mmHg) O2 Sat by Pulse 99 Oximetry 05/07/18 07:22 Temperature 102.6 F Pulse Rate 81 Respiratory 20 Rate Blood Pressure 143/62 (mmHg) O2 Sat by Pulse 100 Oximetry Oxygen Devices in Use Now: Nasal Cannula Appearance: Elderly obese female sitting up in bed, washcloth over her eyes, NAD Eyes: No Scleral Icterus Ears/Nose/Mouth/Throat: Mucous Membranes Moist Respiratory: Symmetrical Chest Expansion and Respiratory Effort, Clear to Auscultation - anteriorly Cardiovascular: NL Sounds; No Murmurs; No JVD, RRR, No Edema Abdominal: NL Sounds; No Tenderness; No Distention Extremities: No Clubbing, Cyanosis Skin: No Nodules or Sclerosis, - - L hip covered in post op dressing Neurological: Alert and Oriented x 3 Result Diagrams: 05/07/18 05:04 05/07/18 05:04 Microbiology and Other Data: Microbiology 05/04/18 22:30 Influenza Types A,B Antigen - Final Nasal Specimen received for Influenza A/B Molecular testing Assess/Plan/Problems-Billing Mrs Sherwood is an 87yo F with PMHx of obesity with BMI of 36, Afib on Eliquis, CAD s/p NSTEMI with BMS to RCA 2017, tachybrady syndrome, s/p AVR ( bioprosthetic), HTN, HLD, CKD stage 3-4, recent right wrist fracture, who presented to ED after a fall, found to have left femoral neck fracture. - Patient Problems (1) SIRS (systemic inflammatory response syndrome) Current Visit: Yes Status: Acute Code(s): R65.10 - SIRS OF NON-INFECTIOUS ORIGIN W/O ACUTE ORGAN DYSFUNCTION SNOMED Code(s): 692952536 Comment: Pt with fever of 102.6 this AM. No clear source of infection has been found with negative UA/culture, CXR, influenza. She has been on ceftriaxone but as cultures remain negative will stop this today. As she was fever free yesterday I question if the new fever may be a drug fever from the ceftriaxone. Continue to monitor for signs of infection. (2) Closed left hip fracture Current Visit: Yes Status: Acute Code(s): S72.002A - FRACTURE OF UNSP PART OF NECK OF LEFT FEMUR, INIT SNOMED Code(s): 643555317 Comment: Management per orthopedics. (3) SIM (acute kidney injury) Current Visit: Yes Status: Acute Code(s): N17.9 - ACUTE KIDNEY FAILURE, UNSPECIFIED SNOMED Code(s): 68199009 Comment: Pt with baseline creatinine of 1.3-1.5 but on admission creatinine up to 2.18. Improved back to baseline with IVF. Monitor intermittently. (4) Atrial fibrillation Current Visit: Yes Status: Acute Onset Date: 01/25/14 Code(s): I48.91 - UNSPECIFIED ATRIAL FIBRILLATION SNOMED Code(s): 55883508 Comment: Pt regular on exam. Continue amiodarone and coreg. Eliquis restarted today. (5) Coronary artery disease Current Visit: Yes Status: Acute Code(s): I25.10 - ATHSCL HEART DISEASE OF [place] CORONARY ARTERY W/O ANG PCTRS SNOMED Code(s): 58141043 Comment: Continue ASA, coreg and lipitor. No c/o CP or concerning signs/ symptoms. (6) HTN (hypertension) Current Visit: Yes Status: Acute Code(s): I10 - ESSENTIAL (PRIMARY) HYPERTENSION SNOMED Code(s): 92222968 Comment: BP is acceptable. Will continue current medication regimen. (7) DVT prophylaxis Current Visit: Yes Status: Acute Code(s): TRA6957 - SNOMED Code(s): 861283458 Comment: sanjeev (8) Full code status Current Visit: Yes Status: Acute Code(s): Z78.9 - OTHER SPECIFIED HEALTH STATUS SNOMED Code(s): 837657101 Status and Disposition: .
--- NOTE | 2018-05-07 11:36 | PN ---
Progress Note - Progress Note Date of Service: 05/07/18 SOAP: Subjective: []Patient seen at bedside alongside Dr Johnson. She is feeling well without CP, SOB, dizziness or nausea. LLE pain is well controlled. Had a fever overnight, reduced with tylenol. Objective: []General: NAD, appears comfortable LLE: Drssing CDI, Thigh is soft. DF/PF intact. DP1+, sensation intact to light touch distally. Calves supple and nontender Assessment: []Left femoral neck fracture SP hemiarthroplasty 05/06 Dr Johnson Plan: []WBAT LLE, posterior hip precautions, abduction pillow in bed if any delirium, otherwise not necessary First LLE dressing change NW RUE, ice, wiggle fingers and elevate, okay to use platform walker Needs cast change R wrist Saturday Eliquis 5 mg po BID as she takes at home Temp again elevated, encouraged IS Vital Signs Temp 102.6 F 05/07/18 07:22 Pulse 81 05/07/18 07:22 Resp 18 05/07/18 10:16 BP 143/62 05/07/18 07:22 Pulse Ox 100 05/07/18 07:22 Intake & Output 05/06/18 05/07/18 05/07/18 18:59 06:59 18:59 Intake Total 1044 3299 Output Total 175 600 Balance 869 2699 Intake: IV Fluids 1044 2669 LR 994 2669 NS 50ML, Cefazolin 2G 50 IVPB 50 ABX - CEFTRIAXONE 50 Oral 580 Output: Urine 175 300 Jerez 300 Other: Estimated Blood Loss 350 Comment Laboratory Last Values WBC 12.0 10^3/ul (3.5-10.8) H 05/07/18 05:04 RBC 2.40 10^6/ul (4.00-5.40) L 05/07/18 05:04 Hgb 7.4 g/dl (12.0-16.0) L 05/07/18 05:04 Hct 23 % (35-47) L 05/07/18 05:04 MCV 94 fL (80-97) 05/07/18 05:04 MCH 31 pg (27-31) 05/07/18 05:04 MCHC 33 g/dl (31-36) 05/07/18 05:04 RDW 14 % (10.5-15) 05/07/18 05:04 Plt Count 138 10^3/ul (150-450) L 05/07/18 05:04 MPV 7.2 fL (7.4-10.4) L 05/07/18 05:04 Neut % (Auto) 88.0 % 05/07/18 05:04 Lymph % (Auto) 2.8 % 05/07/18 05:04 [place] % (Auto) 9.1 % 05/07/18 05:04 Eos % (Auto) 0 % 05/07/18 05:04 Baso % (Auto) 0.1 % 05/07/18 05:04 Absolute Neuts (auto) 10.6 10^3/ul (1.5-7.7) H 05/07/18 05:04 Absolute Lymphs (auto) 0.3 10^3/ul (1.0-4.8) L 05/07/18 05:04 Absolute Monos (auto) 1.1 10^3/ul (0-0.8) H 05/07/18 05:04 Absolute Eos (auto) 0 10^3/ul (0-0.6) 05/07/18 05:04 Absolute Basos (auto) 0 10^3/ul (0-0.2) 05/07/18 05:04 Absolute Nucleated RBC 0 10^3/ul 05/07/18 05:04 Nucleated RBC % 0 05/07/18 05:04 ESR 56 mm/Hr (0-30) H 05/04/18 08:01 INR (Anticoag Therapy) 1.37 (0.77-1.02) H 05/07/18 05:04 APTT 35.4 seconds (26.0-36.3) 05/05/18 05:22 Sodium 134 mmol/L (135-145) L 05/07/18 05:04 Potassium 4.3 mmol/L (3.5-5.0) 05/07/18 05:04 Chloride 102 mmol/L (101-111) 05/07/18 05:04 Carbon Dioxide 27 mmol/L (22-32) 05/07/18 05:04 Anion Gap 5 mmol/L (2-11) 05/07/18 05:04 BUN 22 mg/dL (6-24) 05/07/18 05:04 Creatinine 1.27 mg/dL (0.51-0.95) H 05/07/18 05:04 Est GFR ( Amer) 48.2 (>60) 05/07/18 05:04 Est GFR (Non-Af Amer) 39.8 (>60) 05/07/18 05:04 BUN/Creatinine Ratio 17.3 (8-20) 05/07/18 05:04 Glucose 95 mg/dL (70-100) 05/07/18 05:04 Calcium 8.0 mg/dL (8.6-10.3) L 05/07/18 05:04 Magnesium 1.9 mg/dL (1.9-2.7) 05/06/18 06:13 Total Bilirubin 0.50 mg/dL (0.2-1.0) 05/04/18 08:01 AST 23 U/L (13-39) 05/04/18 08:01 ALT 14 U/L (7-52) 05/04/18 08:01 Alkaline Phosphatase 64 U/L (34-104) 05/04/18 08:01 Troponin I 0.03 ng/mL (<0.04) 05/05/18 05:22 C-Reactive Protein 112.78 mg/L (<8.01) H 05/06/18 06:13 Total Protein 6.3 g/dL (6.4-8.9) L 05/04/18 08:01 Albumin 3.5 g/dL (3.2-5.2) 05/04/18 08:01 Globulin 2.8 g/dL (2-4) 05/04/18 08:01 Albumin/Globulin Ratio 1.3 (1-3) 05/04/18 08:01 Urine Color Yellow 05/04/18 23:57 Urine Appearance Cloudy 05/04/18 23:57 Urine pH 5.0 (5-9) 05/04/18 23:57 Ur Specific [place] 1.021 (1.010-1.030) 05/04/18 23:57 Urine Protein Negative (Negative) 05/04/18 23:57 Urine Ketones Negative (Negative) 05/04/18 23:57 Urine Blood 3+ (Negative) A 05/04/18 23:57 Urine Nitrate Negative (Negative) 05/04/18 23:57 Urine Bilirubin Negative (Negative) 05/04/18 23:57 Urine Urobilinogen Negative (Negative) 05/04/18 23:57 Ur Leukocyte Esterase Negative (Negative) 05/04/18 23:57 Urine WBC (Auto) 1+(6-10/hpf) (Absent) A 05/04/18 23:57 Urine RBC (Auto) 3+(>10/hpf) (Absent) A 05/04/18 23:57 Urine Bacteria Absent (Absent) 05/04/18 23:57 Hyaline Casts Present (Absent) A 05/04/18 23:57 Urine Glucose Negative (Negative) 05/04/18 23:57 Influenza A (Rapid) Negative (Negative) 05/04/18 23:09 Influenza B (Rapid) Negative (Negative) 05/04/18 23:09 Blood Type O Positive 05/05/18 05:22 Antibody Screen Negative 05/05/18 05:22
[2018-05-07] MEDS: oxyCODONE/Acetamin 5/325 MG* TAB PO PRN ×3 (11:48→20:37)
[2018-05-07 14:30] LABS: Hematocrit 20 % (35-47); Hemoglobin 6.5 g/dl (12.0-16.0)
[2018-05-07] MEDS ORDERED: NS 0.9% 50 ML* 50 ML ONE (15:24)
--- NOTE | 2018-05-07 17:45 | OP ---
OPERATIVE REPORT: DATE OF OPERATION: 05/06/18 DATE OF : 30 SURGEON: Dr. Aaron Johnson. GAMES MANAGER: KIRSTEN Sutton A physician assistant pressman was required for the length of the procedure for assistance with positioning, r etraction, instrumentation, hip manipulation, and closure. ANESTHESIOLOGIST: Dr. Cindy Barrios. ANESTHESIA: General anesthesia. PRE-OP DIAGNOSIS: Left hip fracture, displaced femoral neck. POST-OP DIAGNOSIS: Left hip fracture, displaced femoral neck. OPERATIVE PROCEDURE: Left hip bipolar hemiarthroplasty for treatment of femoral neck fracture. CPT code 43593. ANTIBIOTICS: 2 g Ancef IV given just prior to skin incision. The patient has also been on ceftriaxo ne once daily by medicine service for fever of unknown origin. IV FLUIDS: 1700 cc crystalloid. [id number] TIME: 120 minutes. Case was longer than typical because of the large size of the patie nt. ESTIMATED BLOOD LOSS: 350 cc. SPECIMEN: Femoral head and neck. IMPLANTS: Jc bipolar hemiarthroplasty system with an M/L taper femoral stem. Femoral stem size w as 17.5 with extended offset. The head utilized had a +3.5 neck to it. The head was size 28, the sm aller head, and the larger head was 47 mm. COMPLICATIONS: None. INDICATIONS FOR PROCEDURE: The patient is an 87-year-old woman who lives with her and at [facility] is a community ambulatory with a cane, who sustained a fall on 05/03/18, was [place] [facility] iagnosed with a displaced femoral neck fracture, left. The patient was seen by Dr. Dailey, my partner . Care transferred to ma and I agreed to do surgery today. Some more history provided by Dr. Dailey's notes and discussion with the patient and her family is gilda t the patient had an earlier fall on 04/24/18. She was diagnosed with a fracture of the right wrist distal radius styloid. She was treated with a short-arm cast. She did complain of left hip pain at that time. X-rays obtained on 04/24/18 and 04/30/18 were negative for fracture. CT scan on 04/30/18 was also negative for fracture. On 05/03/18, she fell again. She slid out of a walker chair that she had been using and developed a significant increase in her left hip pain. X-rays and CT scan showed a displaced femoral neck fractu re. The patient has multiple medical problems. She is on Eliquis for atrial fibrillation. The patient w as cleared by both the hospitalist and cardiology services. We wanted to wait at least 48 hours sinc e her last dose of Eliquis, which was late on 05/03/18. However, as well, hospitalist and cardiology consultations took some time and some workup. As well, there was a fever of unknown origin that nee ded to be worked up. While the patient did have an elevated body temperature preoperatively, hospita list workup for potential infection proved to show no bacterial infection. The thought was that the patient's elevated temperature was secondary to a viral illness, possibly gastroenteritis given that her had suffered from that recently. The patient's white blood cell count was normal. There was no left shift and the hospitalist service was convinced of no active bacterial infection. There fore, I felt comfortable moving forward with surgery. The patient had an echocardiogram as part of h er preoperative medical workup. DESCRIPTION OF PROCEDURE: The patient signed a written consent in preoperative holding. I discussed risks and potential complications including bleeding, infection, nerve or blood vessel injury, hip d islocation, need for revision surgery, , with the patient and with her daughters. Also fracture is possible complication. The patient signed a written consent form. Operative extremity was tam angulo in preoperative holding. The patient was taken back to the operating room and placed supine on the operating room table. Sweta edvin and intubated. The patient already had a Jerez in place. We converted the patient to a lateral decubitus position w ith the left hip up. On a pegboard. Axillary roll placed. Peg well padded. I placed an impervious U sheet around the left hip. Then, thorough prep with chlorhexidine and then ChloraPrep. We then draped the left hip. Surgical t makayla-out performed. With the patient on the table, I noted the pelvis to be quite wide and the patient to be big-boned an d I expected a large implant to be utilized. Made a standard skin incision for the Sneed posterior approach to the hip. Centered about the proxima l tip of the greater tuberosity and curving posterior at its proximal end. Dissected down to the iliotibial band and gluteus vandana fascia. Cut with a deep knife overlying th e femur and then more proximally following the fibers of the gluteus vandana muscle. Split the glute us vandana muscle by hand. No bleeding. Hip extended and internally rotated. Removed bursa from posterior to the external rotators. 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 I considered pe rforming a repair of this with a suture anchor and even asked for a suture anchor, but again decided that less would more in this patient if she has been ambulating without severe difficulty prior to th e hip fracture. Placed Cobra retractors proximal and distal. Visualized well piriformis and other external rotators. Placed a FiberWire #2 stitch in the piriformis. I released all the external rotators off the femur . Placed 3 more [id number] stitches in the capsule and external rotators with FiberWire #2 sutu re. Of note, the posterior musculature other than the piriformis was very poor quality, but the caps ular bites were excellent. The capsule had not been destroyed by the femoral neck fracture. Piriformis well visualized and respected. Flexed the hip. Made a saw incision in the femoral neck approximately 1 cm proximal to the lesser tr ochanter. I removed the cut pieces of neck. Retracted the femur anterior and removed the femoral he ad and neck. Debrided the pulvinar. Sized the femoral head on the back table. On the back table, the head was measured at 48. I tried a variety of sample sizes in the acetabulum itself and felt that the 47 was better fit. Therefore, I decided to go with a 47 large outer head. Re-flexed the femur. Canal finder, lateralizer both used. Broached up to the largest size stem avai lable for the 17.5. Trialed with a variety of head and neck sizes. Hip was stable. Length appropri ate. Placed my final stem, 17.5 mm extended offset. I then re-trialed several different neck and head siz es. I chose the 3.5+ neck length. Placed inner and outer balls after irrigating the wound nicely. Located the hip. It was stable with the hip in 90 degrees of flexion and at least 70 degrees of inte rnal rotation. I placed 2 drill holes in the posterior aspect of the greater trochanter with a 2 mm drill bit. Tied my 4 pairs of sutures over the greater trochanter through those 2 holes with the hip extended and ex ternally rotated. This brought the external rotators, especially the piriformis nicely up to bone. The inferior aspect of the capsule did not quite reach bone. Irrigation. Closure of the ITB and gluteus vandana fascia with multiple running stitches using Ethib ond #1 suture. Irrigation. Closure of deep subcutaneous tissue and then superficial subcutaneous ti ssue with buried simple stitches using Vicryl 2-0 suture. Closure of the skin with sae. Xerofor m, 4x4s, ABDs, foam tape. Drapes were taken down. The patient was placed in an abduction pillow. T he patient converted to the supine position and extubated. DISPOSITION: The patient was readmitted postoperatively to the medical service. Plans for continued monitoring of body temperature and detection of any viral or bacterial infection. Restart anticoagul ation on postoperative day 1 in the morning. Weightbearing as tolerated. Posterior hip precautions. Physical therapy. The patient lost some blood during the operation, 350 cc, and we will check rachel tocrit in the morning. X-rays in PACU showed excellent position of hardware and only a minimum of le ngthening of the operative leg. The patient will follow up in my clinic 14 to 17 days postoperativel y for removal of sae. Disposition planning will start. [id number]/[facility] #: [id number]
[2018-05-08 06:37] LABS: Hematocrit 23 % (35-47); Hemoglobin 7.5 g/dl (12.0-16.0); Mean Corpuscular HGB Conc 33 g/dl (31-36); Mean Corpuscular Hemoglobin 31 pg (27-31); Mean Corpuscular Volume 93 fL (80-97); Mean Platelet Volume 7.5 fL (7.4-10.4); Platelet Count 134 10^3/ul (150-450); Red Blood Count 2.44 10^6/ul (4.00-5.40); Red Cell Distribution Width 14 % (10.5-15); White Blood Count 14.6 10^3/ul (3.5-10.8)
[2018-05-08 06:52] LABS: BUN/Creatinine Ratio 16.8 (8-20); Calcium 7.9 mg/dL (8.6-10.3); EGFR African American 33.7 (>60); EGFR Non-African American 27.9 (>60); Potassium 4.3 mmol/L (3.5-5.0)
[2018-05-08 07:22] LABS: ABS Basophils 0 10^3/ul (0-0.2); ABS Eosinophils 0 10^3/ul (0-0.6); ABS Lymphocytes 0.7 10^3/ul (1.0-4.8); ABS Monocytes 1.9 10^3/ul (0-0.8); ABS Nucleated RBC 0 10^3/ul; Eosinophil % 0.2 %; Lymphocyte % 5.1 %; Nucleated Red Blood Cells % 0
[2018-05-08] MEDS: [UNRECOGNIZED DRUG - OTHER] IVPB SCH ×4 (07:23→16:10)
[2018-05-08] MEDS: Multivitamins/Minerals TAB PO SCH (08:32)
[2018-05-08] MEDS: Senna TAB PO SCH ×2 (08:32→20:38)
[2018-05-08] MEDS: Cyanocobalamin TAB* 500 MCG PO SCH (08:33)
[2018-05-08] MEDS: Ferrous Sulfate TAB* 325 MG PO SCH (08:33)
[2018-05-08] MEDS: Aspirin EC TAB* 81 MG TAB.EC PO SCH (08:33)
[2018-05-08] MEDS: Folic Acid TAB* 1 MG PO SCH (08:33)
[2018-05-08] MEDS: Docusate CAP* 100 MG PO SCH ×2 (08:33→20:38)
[2018-05-08] MEDS: Carvedilol TAB* 3.125 MG PO SCH ×2 (08:33→20:38)
[2018-05-08] MEDS: oxyCODONE/Acetamin 5/325 MG* TAB PO PRN ×2 (08:33→20:38)
[2018-05-08] MEDS: Apixaban* 5 MG TAB PO SCH ×2 (08:33→20:38)
[2018-05-08] MEDS: Amiodarone TAB* 200 MG PO SCH (08:33)
[2018-05-08] MEDS: Atorvastatin* 40 MG TAB PO SCH (08:33)
[2018-05-08] MEDS ORDERED: Bisacodyl SUPP* 10 MG SUPP PR ONE (10:00)
--- NOTE | 2018-05-08 12:11 | PN ---
Progress Note - Progress Note Date of Service: 05/08/18 SOAP: Subjective: []Pt seen at bedside. She feels well with well controlled left hip pain. Afebrile overnight. Denies CP, SOB, dizziness, nausea. Objective: [] General: NAD, appears comfortable LLE: Dressing CDI, Thigh is soft. DF/PF intact. DP1+, sensation intact to light touch distally. Calves supple and nontender Assessment: []Left femoral neck fracture SP hemiarthroplasty 05/06 Dr Johnson Plan: []WBAT LLE, posterior hip precautions, abduction pillow in bed if any delirium, otherwise not necessary First LLE dressing change NWB RUE, ice, wiggle fingers and elevate, okay to use platform walker. Needs cast change R wrist Saturday Eliquis 5 mg po BID as she takes at home Continue IS and OOB to chair Received pRBC yesterday, anemia improved today, continue to trend Vital Signs Temp 98.4 F 05/08/18 08:28 Pulse 66 05/08/18 10:16 Resp 18 05/08/18 11:17 BP 128/44 05/08/18 08:28 Pulse Ox 93 05/08/18 10:16 Intake & Output 05/07/18 05/08/18 05/08/18 18:59 06:59 18:59 Intake Total 310 2525 876 Output Total 250 125 Balance 60 2400 876 Intake: IV Fluids 1975 576 ABX - CEFTRIAXONE 110 LR 1137 576 NS (0.9%) 133 psacked red blood cells 595 Oral 310 550 300 Output: Urine 125 Jerez 250 Other: Estimated Void Large # Voids 1 Laboratory Last Values WBC 14.6 10^3/ul (3.5-10.8) H 05/08/18 06:14 RBC 2.44 10^6/ul (4.00-5.40) L 05/08/18 06:14 Hgb 7.5 g/dl (12.0-16.0) L 05/08/18 06:14 Hct 23 % (35-47) L 05/08/18 06:14 MCV 93 fL (80-97) 05/08/18 06:14 MCH 31 pg (27-31) 05/08/18 06:14 MCHC 33 g/dl (31-36) 05/08/18 06:14 RDW 14 % (10.5-15) 05/08/18 06:14 Plt Count 134 10^3/ul (150-450) L 05/08/18 06:14 MPV 7.5 fL (7.4-10.4) 05/08/18 06:14 Neut % (Auto) 81.8 % 05/08/18 06:14 Lymph % (Auto) 5.1 % 05/08/18 06:14 Lane % (Auto) 12.8 % 05/08/18 06:14 Eos % (Auto) 0.2 % 05/08/18 06:14 Baso % (Auto) 0.1 % 05/08/18 06:14 Absolute Neuts (auto) 12.0 10^3/ul (1.5-7.7) H 05/08/18 06:14 Absolute Lymphs (auto) 0.7 10^3/ul (1.0-4.8) L 05/08/18 06:14 Absolute Monos (auto) 1.9 10^3/ul (0-0.8) H 05/08/18 06:14 Absolute Eos (auto) 0 10^3/ul (0-0.6) 05/08/18 06:14 Absolute Basos (auto) 0 10^3/ul (0-0.2) 05/08/18 06:14 Absolute Nucleated RBC 0 10^3/ul 05/08/18 06:14 Nucleated RBC % 0 05/08/18 06:14 ESR 56 mm/Hr (0-30) H 05/04/18 08:01 INR (Anticoag Therapy) 1.37 (0.77-1.02) H 05/07/18 05:04 APTT 35.4 seconds (26.0-36.3) 05/05/18 05:22 Sodium 131 mmol/L (135-145) L 05/08/18 06:14 Potassium 4.3 mmol/L (3.5-5.0) 05/08/18 06:14 Chloride 100 mmol/L (101-111) L 05/08/18 06:14 Carbon Dioxide 25 mmol/L (22-32) 05/08/18 06:14 Anion Gap 6 mmol/L (2-11) 05/08/18 06:14 BUN 29 mg/dL (6-24) H 05/08/18 06:14 Creatinine 1.73 mg/dL (0.51-0.95) H 05/08/18 06:14 Est GFR ( Amer) 33.7 (>60) 05/08/18 06:14 Est GFR (Non-Af Amer) 27.9 (>60) 05/08/18 06:14 BUN/Creatinine Ratio 16.8 (8-20) 05/08/18 06:14 Glucose 117 mg/dL (70-100) H 05/08/18 06:14 Calcium 7.9 mg/dL (8.6-10.3) L 05/08/18 06:14 Magnesium 1.9 mg/dL (1.9-2.7) 05/06/18 06:13 Total Bilirubin 0.50 mg/dL (0.2-1.0) 05/04/18 08:01 AST 23 U/L (13-39) 05/04/18 08:01 ALT 14 U/L (7-52) 05/04/18 08:01 Alkaline Phosphatase 64 U/L (34-104) 05/04/18 08:01 Troponin I 0.03 ng/mL (<0.04) 05/05/18 05:22 C-Reactive Protein 112.78 mg/L (<8.01) H 05/06/18 06:13 Total Protein 6.3 g/dL (6.4-8.9) L 05/04/18 08:01 Albumin 3.5 g/dL (3.2-5.2) 05/04/18 08:01 Globulin 2.8 g/dL (2-4) 05/04/18 08:01 Albumin/Globulin Ratio 1.3 (1-3) 05/04/18 08:01 Urine Color Yellow 05/04/18 23:57 Urine Appearance Cloudy 05/04/18 23:57 Urine pH 5.0 (5-9) 05/04/18 23:57 Ur Specific [place] 1.021 (1.010-1.030) 05/04/18 23:57 Urine Protein Negative (Negative) 05/04/18 23:57 Urine Ketones Negative (Negative) 05/04/18 23:57 Urine Blood 3+ (Negative) A 05/04/18 23:57 Urine Nitrate Negative (Negative) 05/04/18 23:57 Urine Bilirubin Negative (Negative) 05/04/18 23:57 Urine Urobilinogen Negative (Negative) 05/04/18 23:57 Ur Leukocyte Esterase Negative (Negative) 05/04/18 23:57 Urine WBC (Auto) 1+(6-10/hpf) (Absent) A 05/04/18 23:57 Urine RBC (Auto) 3+(>10/hpf) (Absent) A 05/04/18 23:57 Urine Bacteria Absent (Absent) 05/04/18 23:57 Hyaline Casts Present (Absent) A 05/04/18 23:57 Urine Glucose Negative (Negative) 05/04/18 23:57 Influenza A (Rapid) Negative (Negative) 05/04/18 23:09 Influenza B (Rapid) Negative (Negative) 05/04/18 23:09 Blood Type O Positive 05/05/18 05:22 Antibody Screen Negative 05/05/18 05:22 Crossmatch See Detail 05/05/18 05:22
[2018-05-08] MEDS ORDERED: Polyethylene Glycol 3350* 17 GM PACKET PO PRN (19:30)
[2018-05-08 19:31] LABS: Hematocrit 24 % (35-47); Hemoglobin 8.2 g/dl (12.0-16.0)
--- NOTE | 2018-05-08 19:31 | PN ---
Subjective Date of Service: 05/08/18 Interval History: Pt is feeling ok. She has some pain in the L hip. She has not had a BM in several day. No CP or SOB. Family History: Unchanged from Admission Social History: Unchanged from Admission Past Medical History: Unchanged from Admission Objective Active Medications: Acetaminophen (Tylenol Tab*) 650 mg PO Q4H PRN PRN Reason: FEVER/PAIN Last Admin: 05/07/18 07:29 Dose: 650 mg Al Hydrox/Mg Hydrox/Simethicone (Maalox Plus*) 30 ml PO Q6H PRN PRN Reason: INDIGESTION Amiodarone HCl (Cordarone Tab*) 200 mg PO QAM [facility] Last Admin: 05/08/18 08:33 Dose: 200 mg Apixaban (Eliquis*) 5 mg PO BID [facility] Last Admin: 05/08/18 08:33 Dose: 5 mg Aspirin (Aspirin Ec Tab*) 81 mg PO DAILY [facility] Last Admin: 05/08/18 08:33 Dose: 81 mg Atorvastatin Calcium (Lipitor*) 40 mg PO DAILY [facility] Last Admin: 05/08/18 08:33 Dose: 40 mg Carvedilol (Coreg Tab*) 3.125 mg PO BID [facility] Last Admin: 05/08/18 08:33 Dose: 3.125 mg Cyanocobalamin (Vitamin B12 Tab*) 1,000 mcg PO DAILY [facility] Last Admin: 05/08/18 08:33 Dose: 1,000 mcg Docusate Sodium (Colace Cap*) 100 mg PO BID [facility] Last Admin: 05/08/18 08:33 Dose: 100 mg Ferrous Sulfate (Ferrous Sulfate Tab*) 325 mg PO DAILY [facility] Last Admin: 05/08/18 08:33 Dose: 325 mg Folic Acid (Folvite Tab*) 1 mg PO QAM [facility] Last Admin: 05/08/18 08:33 Dose: 1 mg Cefazolin Sodium 1 gm/ Sodium (Chloride) 50 mls @ 200 mls/hr IVPB Q8H [facility] Stop: 05/09/18 00:14 Last Admin: 05/08/18 16:10 Dose: 200 mls/hr Morphine Sulfate (Morphine Vial*) 2 mg IV Q4H PRN PRN Reason: PAIN - MILD Last Admin: 05/07/18 10:16 Dose: 2 mg Multivitamins/Minerals (Theragran/Minerals Tab*) 1 tab PO DAILY [facility] Last Admin: 05/08/18 08:32 Dose: 1 tab Ondansetron HCl (Zofran Inj*) 4 mg IV Q4H PRN PRN Reason: NAUSEA/VOMITING Last Admin: 05/07/18 03:49 Dose: 4 mg Oxycodone/Acetaminophen (Percocet 5/325 Tab*) 1 tab PO Q4H PRN PRN Reason: Pain Last Admin: 05/06/18 10:44 Dose: 1 tab Oxycodone/Acetaminophen (Percocet 5/325 Tab*) 2 tab PO Q4H PRN PRN Reason: SEVERE PAIN Last Admin: 05/08/18 08:33 Dose: 2 tab Senna (Senokot Tab*) 1 tab PO BID [facility] Last Admin: 05/08/18 08:32 Dose: 1 tab Vital Signs - 8 hr 05/08/18 05/08/18 05/08/18 11:38 15:56 16:00 Temperature 98.2 F 98.4 F Pulse Rate 68 68 Respiratory 17 20 Rate Blood Pressure 103/43 113/40 (mmHg) O2 Sat by Pulse 95 91 91 Oximetry Oxygen Devices in Use Now: Nasal Cannula Appearance: Elderly female sitting up in a chair, NAD Eyes: No Scleral Icterus Ears/Nose/Mouth/Throat: Mucous Membranes Moist Respiratory: Symmetrical Chest Expansion and Respiratory Effort, Clear to Auscultation Cardiovascular: NL Sounds; No Murmurs; No JVD, RRR, No Edema Abdominal: NL Sounds; No Tenderness; No Distention Extremities: No Clubbing, Cyanosis Skin: No Nodules or Sclerosis, - - hip incision not inspected by myself Neurological: Alert and Oriented x 3 Result Diagrams: 05/08/18 06:14 05/08/18 06:14 Microbiology and Other Data: Microbiology 05/04/18 22:30 Influenza Types A,B Antigen - Final Nasal Specimen received for Influenza A/B Molecular testing Assess/Plan/Problems-Billing Mrs Sherwood is an 87yo F with PMHx of obesity with BMI of 36, Afib on Eliquis, CAD s/p NSTEMI with BMS to RCA 2017, tachybrady syndrome, s/p AVR ( bioprosthetic), HTN, HLD, CKD stage 3-4, recent right wrist fracture, who presented to ED after a fall, found to have left femoral neck fracture. - Patient Problems (1) Acute blood loss anemia Current Visit: Yes Status: Acute Code(s): D62 - ACUTE POSTHEMORRHAGIC ANEMIA SNOMED Code(s): 413488855 Comment: The patient developed acute blood loss anemia post op. H/H down to low of 6.5/20. Transfused 2 units PRBC with Hb up to 7.5. Repeat H/H pending now. If Hb<7 will transfuse another 1 unit PRBC. (2) SIRS (systemic inflammatory response syndrome) Current Visit: Yes Status: Acute Code(s): R65.10 - SIRS OF NON-INFECTIOUS ORIGIN W/O ACUTE ORGAN DYSFUNCTION SNOMED Code(s): 569604014 Comment: No further fever. No clear source of infection. ? drug fever. Tomorrow she will stop the cefazolin. Monitor temperature and WBC count as it is now further elevated. (3) Closed left hip fracture Current Visit: Yes Status: Acute Code(s): S72.002A - FRACTURE OF UNSP PART OF NECK OF LEFT FEMUR, INIT SNOMED Code(s): 882143414 Comment: Management per orthopedics. (4) SIM (acute kidney injury) Current Visit: Yes Status: Acute Code(s): N17.9 - ACUTE KIDNEY FAILURE, UNSPECIFIED SNOMED Code(s): 86815995 Comment: Creatinine back up today. Pt is eating/drinking well. Recheck BMP in AM. (5) Atrial fibrillation Current Visit: Yes Status: Acute Onset Date: 01/25/14 Code(s): I48.91 - UNSPECIFIED ATRIAL FIBRILLATION SNOMED Code(s): 32266205 Comment: Pt regular on exam. Continue amiodarone and coreg. Eliquis restarted yesterday. If Creatinine remains elevated tomorrow will need to reduce the dose to 2.5mg BID. (6) Coronary artery disease Current Visit: Yes Status: Acute Code(s): I25.10 - ATHSCL HEART DISEASE OF [place] CORONARY ARTERY W/O ANG PCTRS SNOMED Code(s): 08089357 Comment: Continue ASA, coreg and lipitor. No c/o CP or concerning signs/ symptoms. (7) HTN (hypertension) Current Visit: Yes Status: Acute Code(s): I10 - ESSENTIAL (PRIMARY) HYPERTENSION SNOMED Code(s): 86752005 Comment: BP is acceptable. Will continue current medication regimen. (8) DVT prophylaxis Current Visit: Yes Status: Acute Code(s): [id number] - SNOMED Code(s): 462850996 Comment: sanjeev (9) Full code status Current Visit: Yes Status: Acute Code(s): Z78.9 - OTHER SPECIFIED HEALTH STATUS SNOMED Code(s): 951204075 Status and Disposition: .
[2018-05-08] MEDS: Magnesium Hydroxide LIQ* 30 ML UDC PO SCH (20:38)
[2018-05-09] MEDS: [UNRECOGNIZED DRUG - OTHER] IVPB SCH ×2 (00:15)
[2018-05-09 05:49] LABS: Hematocrit 21 % (35-47); Hemoglobin 6.9 g/dl (12.0-16.0); Mean Corpuscular HGB Conc 34 g/dl (31-36); Mean Corpuscular Hemoglobin 31 pg (27-31); Mean Corpuscular Volume 93 fL (80-97); Mean Platelet Volume 7.2 fL (7.4-10.4); Platelet Count 150 10^3/ul (150-450); Red Blood Count 2.21 10^6/ul (4.00-5.40); Red Cell Distribution Width 14 % (10.5-15); White Blood Count 13.5 10^3/ul (3.5-10.8)
[2018-05-09 06:09] LABS: BUN/Creatinine Ratio 19.6 (8-20); Calcium 7.6 mg/dL (8.6-10.3); EGFR African American 32.4 (>60); EGFR Non-African American 26.8 (>60); Potassium 4.2 mmol/L (3.5-5.0)
[2018-05-09] MEDS: Amiodarone TAB* 200 MG PO SCH (08:52)
[2018-05-09] MEDS: Ferrous Sulfate TAB* 325 MG PO SCH (08:52)
[2018-05-09] MEDS: Atorvastatin* 40 MG TAB PO SCH (08:53)
[2018-05-09] MEDS: Aspirin EC TAB* 81 MG TAB.EC PO SCH (08:53)
[2018-05-09] MEDS: Folic Acid TAB* 1 MG PO SCH (08:53)
[2018-05-09] MEDS: Apixaban* 5 MG TAB PO SCH (08:53)
[2018-05-09] MEDS: Cyanocobalamin TAB* 500 MCG PO SCH (08:53)
[2018-05-09] MEDS: Senna TAB PO SCH ×2 (08:54→22:03)
[2018-05-09] MEDS: Multivitamins/Minerals TAB PO SCH (08:54)
[2018-05-09] MEDS: Docusate CAP* 100 MG PO SCH ×2 (08:54→22:03)
[2018-05-09] MEDS: Magnesium Hydroxide LIQ* 30 ML UDC PO SCH ×2 (08:54→22:03)
[2018-05-09] MEDS: Carvedilol TAB* 3.125 MG PO SCH ×2 (08:54→22:03)
--- NOTE | 2018-05-09 15:44 | PN ---
Progress Note - Progress Note Date of Service: 05/09/18 SOAP: Subjective: []Patient seen at bedside. Pale this am, anemic. Cast fitting well right arm. No complaints. Hip pain well managed. Objective: [] Vital Signs Temp 98.5 F 05/09/18 13:34 Pulse 64 05/09/18 13:34 Resp 18 05/09/18 13:34 BP 115/34 05/09/18 13:34 Pulse Ox 94 05/09/18 13:34 Intake & Output 05/08/18 05/09/18 05/09/18 18:59 06:59 18:59 Intake Total 1224 929 9530 Output Total 200 450 Balance 734 38 3799 Intake: IV Fluids 576 712 LR 576 NS (0.9%) 100 psacked red blood cells 612 Oral 540 460 600 Output: Urine 200 450 Other: # Bowel Movements 0 Laboratory Results - last 24 hr 05/08/18 05/09/18 05/09/18 19:12 05:20 05:27 WBC RBC Hgb 8.2 L Hct 24 L MCV MCH MCHC RDW Plt Count MPV Sodium 129 L Potassium 4.2 Chloride 99 L Carbon Dioxide 25 Anion Gap 5 BUN 35 H Creatinine 1.79 H Est GFR ( Amer) 32.4 Est GFR (Non-Af Amer) 26.8 BUN/Creatinine Ratio 19.6 Glucose 98 Calcium 7.6 L Ionized Calcium Blood Type O Positive Antibody Screen Negative Crossmatch See Detail 05/09/18 05/09/18 05:27 12:17 WBC 13.5 H RBC 2.21 L Hgb 6.9 L Hct 21 L MCV 93 MCH 31 MCHC 34 RDW 14 Plt Count 150 MPV 7.2 L Sodium Potassium Chloride Carbon Dioxide Anion Gap BUN Creatinine Est GFR ( Amer) Est GFR (Non-Af Amer) BUN/Creatinine Ratio Glucose Calcium Ionized Calcium 0.99 L Blood Type Antibody Screen Crossmatch Right wrist cast in good repair, moving all digits well, full sensation and circulation Left hip dressings are dry and intact +DF left ankle sensation intact distally Assessment: []s/p estrella arthroplasty left hip POD #3 Plan: []Blood transfusion today WBAT LLE hip precautions Dressing change 3/2 hip cast change before fpc transfer per Dr. Johnson
--- NOTE | 2018-05-09 16:36 | PN ---
Subjective Date of Service: 05/09/18 Interval History: Pt seen and examined. Meds and labs reviewed. S/P L. hip hemiarthroplasty POD #3 CC: N/A ROS: Denied MENA/dizziness, F/C, N/V, CP, SOB, increased cough, sputum production , abd pain, diarrhea, constipation, dysuria, myalgias, arthralgias, throat pain , and new skin lesions. The rest of the 14 point ROS are unremarkable. PHYSICAL EXAM: GEN APPEARANCE: Awake, not in acute distress HEENT: NC/AT, PERRLA, moist oral mucosa, (-) throat erythema NECK: Soft, supple, (-) cervical LAD, (-)JVD HEART: S1S2 WNL, RRR, No MRG CHEST: CTA, BL, GAE, No W/R/R ABD: Soft, ND/NT, NABS 4x Q EXT: No C/C/L. hip cdi SKIN: Warm to touch PSYCH: No active psychosis, hallucinations, depression, SI/HI Family History: Unchanged from Admission Social History: Unchanged from Admission Past Medical History: Unchanged from Admission Objective Active Medications: Acetaminophen (Tylenol Tab*) 650 mg PO Q4H PRN PRN Reason: FEVER/PAIN Last Admin: 05/07/18 07:29 Dose: 650 mg Al Hydrox/Mg Hydrox/Simethicone (Maalox Plus*) 30 ml PO Q6H PRN PRN Reason: INDIGESTION Amiodarone HCl (Cordarone Tab*) 200 mg PO QAM [facility] Last Admin: 05/09/18 08:52 Dose: 200 mg Aspirin (Aspirin Ec Tab*) 81 mg PO DAILY [facility] Last Admin: 05/09/18 08:53 Dose: 81 mg Atorvastatin Calcium (Lipitor*) 40 mg PO DAILY [facility] Last Admin: 05/09/18 08:53 Dose: 40 mg Carvedilol (Coreg Tab*) 3.125 mg PO BID [facility] Last Admin: 05/09/18 08:54 Dose: 3.125 mg Cyanocobalamin (Vitamin B12 Tab*) 1,000 mcg PO DAILY [facility] Last Admin: 05/09/18 08:53 Dose: 1,000 mcg Docusate Sodium (Colace Cap*) 100 mg PO BID [facility] Last Admin: 05/09/18 08:54 Dose: 100 mg Ferrous Sulfate (Ferrous Sulfate Tab*) 325 mg PO DAILY@0800 [facility] Last Admin: 05/09/18 08:52 Dose: 325 mg Folic Acid (Folvite Tab*) 1 mg PO QAM [facility] Last Admin: 05/09/18 08:53 Dose: 1 mg Calcium Gluconate 2 gm/ Sodium (Chloride) 120 mls @ 60 mls/hr IV ONCE ONE Stop: 05/09/18 18:16 Magnesium Hydroxide (Milk Of Magnesia Liq*) 30 ml PO BID [facility] Last Admin: 05/09/18 08:54 Dose: 30 ml Morphine Sulfate (Morphine Vial*) 2 mg IV Q4H PRN PRN Reason: PAIN - MILD Last Admin: 05/07/18 10:16 Dose: 2 mg Multivitamins/Minerals (Theragran/Minerals Tab*) 1 tab PO DAILY [facility] Last Admin: 05/09/18 08:54 Dose: 1 tab Ondansetron HCl (Zofran Inj*) 4 mg IV Q4H PRN PRN Reason: NAUSEA/VOMITING Last Admin: 05/07/18 03:49 Dose: 4 mg Oxycodone/Acetaminophen (Percocet 5/325 Tab*) 1 tab PO Q4H PRN PRN Reason: Pain Last Admin: 05/06/18 10:44 Dose: 1 tab Oxycodone/Acetaminophen (Percocet 5/325 Tab*) 2 tab PO Q4H PRN PRN Reason: SEVERE PAIN Last Admin: 05/08/18 20:38 Dose: 2 tab Polyethylene Glycol/Electrolytes (Miralax*) 17 gm PO DAILY PRN PRN Reason: CONSTIPATION Senna (Senokot Tab*) 1 tab PO BID [facility] Last Admin: 05/09/18 08:54 Dose: 1 tab Vital Signs - 8 hr 05/09/18 05/09/18 05/09/18 09:12 09:20 09:41 Temperature 99.2 F 99.4 F 99.5 F Pulse Rate 63 63 Respiratory 20 Rate Blood Pressure 117/80 135/48 (mmHg) O2 Sat by Pulse 98 97 Oximetry 05/09/18 05/09/18 05/09/18 11:56 12:27 13:09 Temperature 98.6 F 98.5 F 98.6 F Pulse Rate 60 58 59 Respiratory 13 18 18 Rate Blood Pressure 111/31 120/45 116/43 (mmHg) O2 Sat by Pulse 97 97 97 Oximetry 05/09/18 05/09/18 13:34 15:29 Temperature 98.5 F Pulse Rate 64 63 Respiratory 18 18 Rate Blood Pressure 115/34 146/55 (mmHg) O2 Sat by Pulse 94 98 Oximetry Oxygen Devices in Use Now: Nasal Cannula Result Diagrams: 05/09/18 05:27 05/09/18 05:27 Microbiology and Other Data: Microbiology 05/04/18 22:30 Influenza Types A,B Antigen - Final Nasal Specimen received for Influenza A/B Molecular testing Assess/Plan/Problems-Billing Mrs Sherwood is an 87yo F with PMHx of obesity with BMI of 36, Afib on Eliquis, CAD s/p NSTEMI with BMS to RCA 2017, tachybrady syndrome, s/p AVR ( bioprosthetic), HTN, HLD, CKD stage 3-4, recent right wrist fracture, who presented to ED after a fall, found to have left femoral neck fracture. - Patient Problems (1) Acute blood loss anemia Current Visit: Yes Status: Acute Code(s): D62 - ACUTE POSTHEMORRHAGIC ANEMIA SNOMED Code(s): 960572764 Comment: -Decreased H&H and was being transfused this AM -The patient developed acute blood loss anemia post op. H/H down to low of 6.5/ 20. Transfused 2 units PRBC with Hb up to 7.5. Repeat H/H pending now. If Hb<7 will transfuse another 1 unit PRBC. -Hold Apixaban at this time -Continue ASA given known hx of CAD -For repeat H& at 10 PM; will S/O to paleology teacher (2) Hyponatremia Current Visit: Yes Status: Acute Code(s): E87.1 - HYPO-OSMOLALITY AND HYPONATREMIA SNOMED Code(s): 25548865 Comment: -Possibly due hypovolemic due to blood loss, although appears euvolemic clinically -Will continue watchful waiting -Check Urine Sodium, serum and urine osmolality (3) SIRS (systemic inflammatory response syndrome) Current Visit: Yes Status: Acute Code(s): R65.10 - SIRS OF NON-INFECTIOUS ORIGIN W/O ACUTE ORGAN DYSFUNCTION SNOMED Code(s): 576068109 Comment: -Resolved -No further fever. No clear source of infection. ? drug fever. -Monitor temperature and WBC count as it is now further elevated. (4) Closed left hip fracture Current Visit: Yes Status: Acute Code(s): S72.002A - FRACTURE OF UNSP PART OF NECK OF LEFT FEMUR, INIT SNOMED Code(s): 963042267 Comment: -Management per orthopedics -S/P L. hip hemiarthroplasty POD #3 (5) SIM (acute kidney injury) Current Visit: Yes Status: Acute Code(s): N17.9 - ACUTE KIDNEY FAILURE, UNSPECIFIED SNOMED Code(s): 88786211 Comment: Creatinine back up today. Pt is eating/drinking well. Recheck BMP in AM. (6) Atrial fibrillation Current Visit: Yes Status: Acute Onset Date: 01/25/14 Code(s): I48.91 - UNSPECIFIED ATRIAL FIBRILLATION SNOMED Code(s): 16428298 Comment: Pt regular on exam. Continue amiodarone and coreg. Eliquis restarted yesterday. If Creatinine remains elevated tomorrow will need to reduce the dose to 2.5mg BID. (7) Coronary artery disease Current Visit: Yes Status: Acute Code(s): I25.10 - ATHSCL HEART DISEASE OF [place] CORONARY ARTERY W/O ANG PCTRS SNOMED Code(s): 62890831 Comment: Continue ASA, coreg and lipitor. No c/o CP or concerning signs/ symptoms. (8) HTN (hypertension) Current Visit: Yes Status: Acute Code(s): I10 - ESSENTIAL (PRIMARY) HYPERTENSION SNOMED Code(s): 54835142 Comment: BP is acceptable. Will continue current medication regimen. (9) DVT prophylaxis Current Visit: Yes Status: Acute Code(s): MUV3454 - SNOMED Code(s): 929354015 Comment: -Hold Eliquis -Continue ASA due to known CAD Status and Disposition: -Corrected ionized Calcium as ordered; will continue to follow -Possible D/C to [facility] on Saturday if stable
[2018-05-09 17:09] LABS: ABS Basophils 0 10^3/ul (0-0.2); ABS Eosinophils 0.1 10^3/ul (0-0.6); ABS Lymphocytes 0.7 10^3/ul (1.0-4.8); ABS Monocytes 1.4 10^3/ul (0-0.8); ABS Nucleated RBC 0 10^3/ul; Eosinophil % 0.3 %; Hematocrit 25 % (35-47); Hemoglobin 8.6 g/dl (12.0-16.0); Lymphocyte % 4.3 %; Mean Corpuscular HGB Conc 35 g/dl (31-36); Mean Corpuscular Hemoglobin 31 pg (27-31); Mean Corpuscular Volume 91 fL (80-97); Mean Platelet Volume 7.2 fL (7.4-10.4); Nucleated Red Blood Cells % 0; Platelet Count 170 10^3/ul (150-450); Red Blood Count 2.76 10^6/ul (4.00-5.40); Red Cell Distribution Width 15 % (10.5-15); White Blood Count 15.2 10^3/ul (3.5-10.8)
[2018-05-09] MEDS ORDERED: Calcium Gluconate INJ* 2 GM in NS 0.9% 100 ML* 100 ML IV ONE (18:00)
[2018-05-09] MEDS: Nystatin CREAM* 15 GM TUBE TOPICAL SCH (22:04)
[2018-05-10 00:33] LABS: ABS Basophils 0 10^3/ul (0-0.2); ABS Eosinophils 0.1 10^3/ul (0-0.6); ABS Lymphocytes 0.8 10^3/ul (1.0-4.8); ABS Monocytes 1.3 10^3/ul (0-0.8); ABS Neutrophils 12.6 10^3/ul (1.5-7.7); ABS Nucleated RBC 0 10^3/ul; Eosinophil % 0.5 %; Hematocrit 26 % (35-47); Hemoglobin 8.7 g/dl (12.0-16.0); Lymphocyte % 5.7 %; Mean Corpuscular HGB Conc 34 g/dl (31-36); Mean Corpuscular Hemoglobin 31 pg (27-31); Mean Corpuscular Volume 91 fL (80-97); Mean Platelet Volume 7.2 fL (7.4-10.4); Nucleated Red Blood Cells % 0; Platelet Count 174 10^3/ul (150-450); Red Blood Count 2.82 10^6/ul (4.00-5.40); Red Cell Distribution Width 15 % (10.5-15); White Blood Count 14.8 10^3/ul (3.5-10.8)
[2018-05-10 04:37] LABS: Urine Creatinine Concentration 100.81 mg/dL; Urine Sodium Concentration < 18 mmol/L
[2018-05-10 05:48] LABS: Hematocrit 26 % (35-47); Hemoglobin 8.7 g/dl (12.0-16.0); Mean Platelet Volume 7.1 fL (7.4-10.4); Platelet Count 183 10^3/ul (150-450)
[2018-05-10 06:04] LABS: BUN/Creatinine Ratio 21.8 (8-20); Calcium 7.9 mg/dL (8.6-10.3); EGFR Non-African American 31.4 (>60); Potassium 4.4 mmol/L (3.5-5.0)
[2018-05-10] MEDS ORDERED: Polyethylene Glycol 3350* 17 GM PACKET PO STA (08:55)
[2018-05-10] MEDS: Nystatin CREAM* 15 GM TUBE TOPICAL SCH ×2 (09:00→21:45)
[2018-05-10] MEDS ORDERED: Calcium Gluconate INJ* 2 GM in NS 0.9% 100 ML* 100 ML IV ONE (09:00)
[2018-05-10] MEDS ORDERED: NS 0.9% 1000 ML** 1,000 ML IV SCH (09:00)
[2018-05-10] MEDS: Senna TAB PO SCH ×2 (10:11→22:54)
[2018-05-10] MEDS: Carvedilol TAB* 3.125 MG PO SCH ×2 (10:12→21:59)
[2018-05-10] MEDS: amLODIPine TAB* 5 MG PO SCH (10:12)
[2018-05-10] MEDS: Aspirin EC TAB* 81 MG TAB.EC PO SCH (10:12)
[2018-05-10] MEDS: Amiodarone TAB* 200 MG PO SCH (10:13)
[2018-05-10] MEDS: Folic Acid TAB* 1 MG PO SCH (10:13)
[2018-05-10] MEDS: Atorvastatin* 40 MG TAB PO SCH (10:13)
[2018-05-10] MEDS: Ferrous Sulfate TAB* 325 MG PO SCH (10:13)
[2018-05-10] MEDS: Multivitamins/Minerals TAB PO SCH (10:14)
[2018-05-10] MEDS: Cyanocobalamin TAB* 500 MCG PO SCH (10:14)
[2018-05-10] MEDS: Docusate CAP* 100 MG PO SCH ×2 (10:15→21:59)
[2018-05-10] MEDS: Magnesium Hydroxide LIQ* 30 ML UDC PO SCH ×2 (10:49→22:01)
--- NOTE | 2018-05-10 16:29 | PN ---
Subjective Date of Service: 05/10/18 Interval History: Pt seen and examined. Meds and labs reviewed. CC: Constipation ROS: Denied MNEA/dizziness, F/C, N/V, CP, SOB, increased cough, sputum production , abd pain, diarrhea, dysuria, myalgias, arthralgias, throat pain, and new skin lesions. The rest of the 14 point ROS are unremarkable. PHYSICAL EXAM: GEN APPEARANCE: Awake, not in acute distress HEENT: NC/AT, PERRLA, moist oral mucosa, (-) throat erythema NECK: Soft, supple, (-) cervical LAD, (-)JVD HEART: S1S2 WNL, RRR, No MRG CHEST: CTA, BL, GAE, No W/R/R ABD: Soft, ND/NT, NABS 4x Q EXT: No C/C/E SKIN: Warm to touch PSYCH: No active psychosis, hallucinations, depression, SI/HI Family History: Unchanged from Admission Social History: Unchanged from Admission Past Medical History: Unchanged from Admission Objective Active Medications: Acetaminophen (Tylenol Tab*) 650 mg PO Q4H PRN PRN Reason: FEVER/PAIN Last Admin: 05/07/18 07:29 Dose: 650 mg Al Hydrox/Mg Hydrox/Simethicone (Maalox Plus*) 30 ml PO Q6H PRN PRN Reason: INDIGESTION Amiodarone HCl (Cordarone Tab*) 200 mg PO QAM [facility] Last Admin: 05/10/18 10:13 Dose: 200 mg Amlodipine Besylate (Norvasc Tab*) 5 mg PO DAILY [facility] Last Admin: 05/10/18 10:12 Dose: 5 mg Aspirin (Aspirin Ec Tab*) 81 mg PO DAILY [facility] Last Admin: 05/10/18 10:12 Dose: 81 mg Atorvastatin Calcium (Lipitor*) 40 mg PO DAILY [facility] Last Admin: 05/10/18 10:13 Dose: 40 mg Carvedilol (Coreg Tab*) 3.125 mg PO BID [facility] Last Admin: 05/10/18 10:12 Dose: 3.125 mg Cyanocobalamin (Vitamin B12 Tab*) 1,000 mcg PO DAILY [facility] Last Admin: 05/10/18 10:14 Dose: 1,000 mcg Docusate Sodium (Colace Cap*) 100 mg PO BID [facility] Last Admin: 05/10/18 10:15 Dose: 100 mg Ferrous Sulfate (Ferrous Sulfate Tab*) 325 mg PO DAILY@0800 [facility] Last Admin: 05/10/18 10:13 Dose: 325 mg Folic Acid (Folvite Tab*) 1 mg PO QAM [facility] Last Admin: 05/10/18 10:13 Dose: 1 mg Sodium Chloride (Ns 0.9% 1000 Ml) 1,000 mls @ 75 mls/hr IV PER RATE [facility] Stop: 05/10/18 22:19 Last Admin: 05/10/18 10:46 Dose: 75 mls/hr Magnesium Hydroxide (Milk Of Magnpa Liq*) 30 ml PO BID [facility] Last Admin: 05/10/18 10:49 Dose: Not Given Morphine Sulfate (Morphine Vial*) 2 mg IV Q4H PRN PRN Reason: PAIN - MILD Last Admin: 05/07/18 10:16 Dose: 2 mg Multivitamins/Minerals (Theragran/Minerals Tab*) 1 tab PO DAILY [facility] Last Admin: 05/10/18 10:14 Dose: 1 tab Nystatin (Nystatin Cream*) 1 applic TOPICAL TID [facility] Last Admin: 05/10/18 09:00 Dose: Not Given Ondansetron HCl (Zofran Inj*) 4 mg IV Q4H PRN PRN Reason: NAUSEA/VOMITING Last Admin: 05/07/18 03:49 Dose: 4 mg Oxycodone/Acetaminophen (Percocet 5/325 Tab*) 1 tab PO Q4H PRN PRN Reason: Pain Last Admin: 05/06/18 10:44 Dose: 1 tab Oxycodone/Acetaminophen (Percocet 5/325 Tab*) 2 tab PO Q4H PRN PRN Reason: SEVERE PAIN Last Admin: 05/08/18 20:38 Dose: 2 tab Polyethylene Glycol/Electrolytes (Miralax*) 17 gm PO DAILY PRN PRN Reason: CONSTIPATION Senna (Senokot Tab*) 1 tab PO BID [facility] Last Admin: 05/10/18 10:11 Dose: 1 tab Vital Signs - 8 hr 05/10/18 05/10/18 05/10/18 08:36 11:39 14:53 Temperature 98.5 F 98.4 F Pulse Rate 62 64 Respiratory 18 18 25 Rate Blood Pressure 136/53 147/62 (mmHg) O2 Sat by Pulse 95 95 Oximetry Oxygen Devices in Use Now: Nasal Cannula Result Diagrams: 05/10/18 05:27 05/10/18 15:25 Microbiology and Other Data: Microbiology 05/04/18 22:30 Influenza Types A,B Antigen - Final Nasal Specimen received for Influenza A/B Molecular testing Assess/Plan/Problems-Billing Mrs Sherwood is an 87yo F with PMHx of obesity with BMI of 36, Afib on Eliquis, CAD s/p NSTEMI with BMS to RCA 2017, tachybrady syndrome, s/p AVR ( bioprosthetic), HTN, HLD, CKD stage 3-4, recent right wrist fracture, who presented to ED after a fall, found to have left femoral neck fracture. - Patient Problems (1) Acute blood loss anemia Current Visit: Yes Status: Acute Code(s): D62 - ACUTE POSTHEMORRHAGIC ANEMIA SNOMED Code(s): 664611076 Comment: -H&H stable O/N -The patient developed acute blood loss anemia post op. H/H down to low of 6.5/ 20. Transfused 2 units PRBC with Hb up to 7.5. Repeat H/H pending now. If Hb<7 will transfuse another 1 unit PRBC. -Consider restarting Apixaban in AM -Continue ASA given known hx of CAD (2) Constipation Current Visit: Yes Status: Acute Code(s): K59.00 - CONSTIPATION, UNSPECIFIED SNOMED Code(s): 21841278 Comment: -Continue Senna-Plus; will give one dose of Miralax now, w/c is ordered PRN. (3) Hyponatremia Current Visit: Yes Status: Acute Code(s): E87.1 - HYPO-OSMOLALITY AND HYPONATREMIA SNOMED Code(s): 92387377 Comment: #Hypovolemic hyponatremia due to acute blood loss -Placed pt on IVF and repeated Sodium levels w/c is improving, supporting above impression -Urine Na is too low w/c goes against SIADH and more reflective of Sodium retention due to pre-renal cause (4) SIRS (systemic inflammatory response syndrome) Current Visit: Yes Status: Acute Code(s): R65.10 - SIRS OF NON-INFECTIOUS ORIGIN W/O ACUTE ORGAN DYSFUNCTION SNOMED Code(s): 004707908 Comment: -Resolved -No further fever. No clear source of infection. ? drug fever. -Monitor temperature and WBC count as it is now further elevated. (5) Closed left hip fracture Current Visit: Yes Status: Acute Code(s): S72.002A - FRACTURE OF UNSP PART OF NECK OF LEFT FEMUR, INIT SNOMED Code(s): 633009779 Comment: -Management per orthopedics -S/P L. hip hemiarthroplasty POD #4 (6) SIM (acute kidney injury) Current Visit: Yes Status: Acute Code(s): N17.9 - ACUTE KIDNEY FAILURE, UNSPECIFIED SNOMED Code(s): 13733765 Comment: -Likely due to acute blood loss as described above -Improved w/PRBC transfusion and hydration -Continue watchful waiting (7) Atrial fibrillation Current Visit: Yes Status: Acute Onset Date: 01/25/14 Code(s): I48.91 - UNSPECIFIED ATRIAL FIBRILLATION SNOMED Code(s): 29609289 Comment: Pt regular on exam. Continue amiodarone and coreg. Eliquis restarted yesterday. If Creatinine remains elevated tomorrow will need to reduce the dose to 2.5mg BID. (8) Coronary artery disease Current Visit: Yes Status: Acute Code(s): I25.10 - ATHSCL HEART DISEASE OF [place] CORONARY ARTERY W/O ANG PCTRS SNOMED Code(s): 11622536 Comment: Continue ASA, coreg and lipitor. No c/o CP or concerning signs/ symptoms. (9) HTN (hypertension) Current Visit: Yes Status: Acute Code(s): I10 - ESSENTIAL (PRIMARY) HYPERTENSION SNOMED Code(s): 65963380 Comment: -Uncontrolled -Added Amlodipine to her regimen (10) DVT prophylaxis Current Visit: Yes Status: Acute Code(s): KNA8810 - SNOMED Code(s): 230224362 Comment: -Hold Eliquis -Continue ASA due to known CAD Status and Disposition: -Corrected ionized Calcium as ordered; will continue to follow -Possible D/C to [facility] on Saturday if stable
[2018-05-10] MEDS: Nystatin TOP POWDER* 15 GM BTL TOPICAL SCH (22:45)
[2018-05-11] MEDS: Albuterol/Ipratropium NEB.SOL* Albuterol 2.5 MG/Ipratropium 0.5 MG 3 ML INH PRN (00:43)
[2018-05-11 05:19] LABS: ABS Basophils 0 10^3/ul (0-0.2); ABS Eosinophils 0.1 10^3/ul (0-0.6); ABS Lymphocytes 0.7 10^3/ul (1.0-4.8); ABS Monocytes 1.4 10^3/ul (0-0.8); ABS Neutrophils 8.1 10^3/ul (1.5-7.7); ABS Nucleated RBC 0 10^3/ul; Eosinophil % 0.9 %; Hematocrit 25 % (35-47); Hemoglobin 8.4 g/dl (12.0-16.0); Lymphocyte % 6.4 %; Mean Corpuscular HGB Conc 34 g/dl (31-36); Mean Corpuscular Hemoglobin 31 pg (27-31); Mean Corpuscular Volume 91 fL (80-97); Mean Platelet Volume 6.7 fL (7.4-10.4); Nucleated Red Blood Cells % 0; Platelet Count 221 10^3/ul (150-450); Red Cell Distribution Width 15 % (10.5-15); White Blood Count 10.3 10^3/ul (3.5-10.8)
[2018-05-11 05:41] LABS: BUN/Creatinine Ratio 22.7 (8-20); Blood Urea Nitrogen 27 mg/dL (6-24); CO2 Carbon Dioxide 27 mmol/L (22-32); Calcium 8.1 mg/dL (8.6-10.3); Chloride 102 mmol/L (101-111); EGFR African American 51.9 (>60); EGFR Non-African American 42.9 (>60); Glucose 107 mg/dL (70-100); Potassium 4.4 mmol/L (3.5-5.0); Sodium 129 mmol/L (135-145)
--- NOTE | 2018-05-11 07:42 | PN ---
Hospitalist Progress Note Date of Service: 05/11/18 Meds and labs reviewed. Given recent acute blood loss anemia with stable H&H > 24H, will start pt at lower dose of Apixaban today and observe H&H. If H&H remains stable, Eliquis can be increased to 5 mg PO BID by tomorrow. Full note to be written later.
--- NOTE | 2018-05-11 08:31 | PN ---
Progress Note - Progress Note Date of Service: 05/11/18 SOAP: Subjective: Patient seen at bedside. Cast fitting well right arm. No complaints. Hip pain well managed. Objective: [] Right wrist cast in good repair, moving all digits well, full sensation and circulation Left hip dressings are dry and intact. Dressings were changed yesterday. No drainage or erythema +DF left ankle Bilateral calf are soft but tender to palpation. sensation intact distally Vital Signs Temp 99.3 F 05/11/18 07:47 Pulse 76 05/11/18 07:47 Resp 24 05/11/18 07:47 BP 155/58 05/11/18 07:47 Pulse Ox 98 05/11/18 07:47 Intake & Output 05/10/18 05/11/18 05/11/18 18:59 06:59 18:59 Intake Total 642 799 5604 Output Total 400 25 200 Balance -170 375 900 Weight 225 lb Intake: IV Fluids 1100 Calcium Gluconate 120 NS (0.9%) 980 Oral 230 400 Output: Urine 400 25 200 Other: Estimated Void Small Medium Date of Last Bowel 04/12/18 Movement # Bowel Movements 1 Estimated Stool Amount Medium # Voids 3 Assessment: []s/p estrella arthroplasty left hip POD #5 Plan: []WBAT LLE hip precautions cast change before fdc transfer per Dr. Glynn on Saturday venous Doppler of bilateral lower extremities
[2018-05-11] MEDS ORDERED: Apixaban* 2.5 MG TAB PO SCH (09:00)
[2018-05-11] MEDS: Ferrous Sulfate TAB* 325 MG PO SCH (11:25)
[2018-05-11] MEDS: amLODIPine TAB* 5 MG PO SCH (11:26)
[2018-05-11] MEDS: Amiodarone TAB* 200 MG PO SCH (11:26)
[2018-05-11] MEDS: Carvedilol TAB* 3.125 MG PO SCH ×2 (11:27→21:14)
[2018-05-11] MEDS: Aspirin EC TAB* 81 MG TAB.EC PO SCH (11:27)
[2018-05-11] MEDS: Cyanocobalamin TAB* 500 MCG PO SCH (11:27)
[2018-05-11] MEDS: Atorvastatin* 40 MG TAB PO SCH (11:27)
[2018-05-11] MEDS: Multivitamins/Minerals TAB PO SCH (11:28)
[2018-05-11] MEDS: Magnesium Hydroxide LIQ* 30 ML UDC PO SCH ×2 (11:28→21:09)
[2018-05-11] MEDS: Docusate CAP* 100 MG PO SCH ×2 (11:28→21:13)
[2018-05-11] MEDS: Senna TAB PO SCH ×2 (11:29→21:09)
[2018-05-11] MEDS: Folic Acid TAB* 1 MG PO SCH (11:29)
[2018-05-11] MEDS: Nystatin TOP POWDER* 15 GM BTL TOPICAL SCH ×3 (11:29→21:19)
[2018-05-11 14:35] LABS: ABS Basophils 0 10^3/ul (0-0.2); ABS Eosinophils 0.1 10^3/ul (0-0.6); ABS Lymphocytes 0.5 10^3/ul (1.0-4.8); ABS Monocytes 1.1 10^3/ul (0-0.8); ABS Neutrophils 9.4 10^3/ul (1.5-7.7); ABS Nucleated RBC 0 10^3/ul; Eosinophil % 0.5 %; Hematocrit 29 % (35-47); Hemoglobin 9.3 g/dl (12.0-16.0); Lymphocyte % 4.2 %; Mean Corpuscular HGB Conc 33 g/dl (31-36); Mean Corpuscular Hemoglobin 30 pg (27-31); Mean Corpuscular Volume 93 fL (80-97); Mean Platelet Volume 6.9 fL (7.4-10.4); Nucleated Red Blood Cells % 0.1; Platelet Count 236 10^3/ul (150-450); Red Blood Count 3.09 10^6/ul (4.00-5.40); Red Cell Distribution Width 15 % (10.5-15)
[2018-05-11] MEDS ORDERED: Furosemide IV* 10 MG/ML VIAL (40 MG) IV STA (17:52)
--- NOTE | 2018-05-11 18:00 | PN ---
Subjective Date of Service: 05/11/18 Interval History: Pt seen and examined. Meds and labs reviewed. CC: BL calf pain ROS: Denied MEAN/dizziness, F/C, N/V, CP, SOB, increased cough, sputum production , abd pain, diarrhea, constipation, , arthralgias, throat pain, and new skin lesions. The rest of the 14 point ROS are unremarkable. PHYSICAL EXAM: GEN APPEARANCE: Awake, not in acute distress HEENT: NC/AT, PERRLA, moist oral mucosa, (-) throat erythema NECK: Soft, supple, (-) cervical LAD, (-)JVD HEART: S1S2 WNL, RRR, No MRG CHEST: CTA, BL, GAE, (+)Wheeze, mild, expiratory ABD: Soft, ND/NT, NABS 4x Q EXT: No C/C SKIN: Warm to touch PSYCH: No active psychosis, hallucinations, depression, SI/HI Family History: Unchanged from Admission Social History: Unchanged from Admission Past Medical History: Unchanged from Admission Objective Active Medications: Acetaminophen (Tylenol Tab*) 650 mg PO Q4H PRN PRN Reason: FEVER/PAIN Last Admin: 05/07/18 07:29 Dose: 650 mg Al Hydrox/Mg Hydrox/Simethicone (Maalox Plus*) 30 ml PO Q6H PRN PRN Reason: INDIGESTION Albuterol/Ipratropium (Duoneb (Albuterol 2.5 Mg/Ipratropium 0.5 Mg)) 1 neb INH Q4H PRN PRN Reason: SOB/WHEEZING Last Admin: 05/11/18 00:43 Dose: 1 neb Amiodarone HCl (Cordarone Tab*) 200 mg PO QAM [facility] Last Admin: 05/11/18 11:26 Dose: 200 mg Amlodipine Besylate (Norvasc Tab*) 5 mg PO DAILY [facility] Last Admin: 05/11/18 11:26 Dose: 5 mg Apixaban (Eliquis*) 5 mg PO BID [facility] Aspirin (Aspirin Ec Tab*) 81 mg PO DAILY [facility] Last Admin: 05/11/18 11:27 Dose: 81 mg Atorvastatin Calcium (Lipitor*) 40 mg PO DAILY [facility] Last Admin: 05/11/18 11:27 Dose: 40 mg Carvedilol (Coreg Tab*) 3.125 mg PO BID [facility] Last Admin: 05/11/18 11:27 Dose: 3.125 mg Cyanocobalamin (Vitamin B12 Tab*) 1,000 mcg PO DAILY [facility] Last Admin: 05/11/18 11:27 Dose: 1,000 mcg Docusate Sodium (Colace Cap*) 100 mg PO BID [facility] Last Admin: 05/11/18 11:28 Dose: 100 mg Ferrous Sulfate (Ferrous Sulfate Tab*) 325 mg PO DAILY@0800 [facility] Last Admin: 05/11/18 11:25 Dose: 325 mg Folic Acid (Folvite Tab*) 1 mg PO QAM [facility] Last Admin: 05/11/18 11:29 Dose: 1 mg Furosemide (Lasix Iv*) 40 mg IV ONCE STA Stop: 05/11/18 17:53 Magnesium Hydroxide (Milk Of Magnpa Liq*) 30 ml PO BID [facility] Last Admin: 05/11/18 11:28 Dose: 30 ml Multivitamins/Minerals (Theragran/Minerals Tab*) 1 tab PO DAILY [facility] Last Admin: 05/11/18 11:28 Dose: 1 tab Nystatin (Nystatin Top Powder*) 1 applic TOPICAL TID [facility] Last Admin: 05/11/18 14:40 Dose: 1 applic Ondansetron HCl (Zofran Inj*) 4 mg IV Q4H PRN PRN Reason: NAUSEA/VOMITING Last Admin: 05/07/18 03:49 Dose: 4 mg Oxycodone/Acetaminophen (Percocet 5/325 Tab*) 2 tab PO Q4H PRN PRN Reason: SEVERE PAIN Last Admin: 05/08/18 20:38 Dose: 2 tab Polyethylene Glycol/Electrolytes (Miralax*) 17 gm PO DAILY PRN PRN Reason: CONSTIPATION Senna (Senokot Tab*) 1 tab PO BID [facility] Last Admin: 05/11/18 11:29 Dose: 1 tab Vital Signs - 8 hr 05/11/18 05/11/18 05/11/18 11:49 15:52 16:00 Temperature 98.6 F 99.0 F Pulse Rate 76 63 Respiratory 26 16 Rate Blood Pressure 148/46 121/50 (mmHg) O2 Sat by Pulse 95 95 95 Oximetry Oxygen Devices in Use Now: Nasal Cannula Result Diagrams: 05/11/18 14:12 05/11/18 05:07 Microbiology and Other Data: Microbiology 05/04/18 22:30 Influenza Types A,B Antigen - Final Nasal Specimen received for Influenza A/B Molecular testing Assess/Plan/Problems-Billing Mrs Sherwood is an 87yo F with PMHx of obesity with BMI of 36, Afib on Eliquis, CAD s/p NSTEMI with BMS to RCA 2017, tachybrady syndrome, s/p AVR ( bioprosthetic), HTN, HLD, CKD stage 3-4, recent right wrist fracture, who presented to ED after a fall, found to have left femoral neck fracture. - Patient Problems (1) Acute blood loss anemia Current Visit: Yes Status: Acute Code(s): D62 - ACUTE POSTHEMORRHAGIC ANEMIA SNOMED Code(s): 689515486 Comment: -H&H continues to be stable O/N -The patient developed acute blood loss anemia post op. H/H down to low of 6.5/ 20. Transfused 2 units PRBC with Hb up to 7.5. Repeat H/H pending now. If Hb<7 will transfuse another 1 unit PRBC. -Given equivocal result of Doppler and reassuring repeat H&H, will increase Apixaban to her usual dose -Continue ASA given known hx of CAD (2) Constipation Current Visit: Yes Status: Acute Code(s): K59.00 - CONSTIPATION, UNSPECIFIED SNOMED Code(s): 10195532 Comment: -Pt mentioned she had a BM yesterday -Continue Senna-Plus; will give one dose of Miralax now, w/c is ordered PRN. -Continue watchful waiting (3) Hyponatremia Current Visit: Yes Status: Acute Code(s): E87.1 - HYPO-OSMOLALITY AND HYPONATREMIA SNOMED Code(s): 68777845 Comment: #Hypovolemic hyponatremia due to acute blood loss -D/Cd IVF due to very mild expiratory wheeze and possible cardiogenic pulmonary edema; may have over-corrected hypovolemic blood loss -Will give Lasix IV x1 as ordere -Continue to follow (4) Atrial fibrillation Current Visit: Yes Status: Acute Onset Date: 01/25/14 Code(s): I48.91 - UNSPECIFIED ATRIAL FIBRILLATION SNOMED Code(s): 71439007 Comment: Pt regular on exam. Continue amiodarone and coreg. Eliquis restarted yesterday. If Creatinine remains elevated tomorrow will need to reduce the dose to 2.5mg BID. (5) SIRS (systemic inflammatory response syndrome) Current Visit: Yes Status: Acute Code(s): R65.10 - SIRS OF NON-INFECTIOUS ORIGIN W/O ACUTE ORGAN DYSFUNCTION SNOMED Code(s): 530421128 Comment: -Resolved -No further fever. No clear source of infection. ? drug fever. -Monitor temperature and WBC count as it is now further elevated. (6) Closed left hip fracture Current Visit: Yes Status: Acute Code(s): S72.002A - FRACTURE OF UNSP PART OF NECK OF LEFT FEMUR, INIT SNOMED Code(s): 453523329 Comment: -Management per orthopedics -S/P L. hip hemiarthroplasty POD #4 (7) SIM (acute kidney injury) Current Visit: Yes Status: Acute Code(s): N17.9 - ACUTE KIDNEY FAILURE, UNSPECIFIED SNOMED Code(s): 68166197 Comment: -Likely due to acute blood loss as described above -Improved w/PRBC transfusion and hydration -Continue watchful waiting (8) Calf pain Current Visit: Yes Status: Acute Code(s): M79.669 - PAIN IN UNSPECIFIED LOWER LEG SNOMED Code(s): 876482747 Comment: -Equivocal Doppler being followed by Dr. Damon and will defer -Will increase Apixaban to renally dosed 5 mg BID (9) Coronary artery disease Current Visit: Yes Status: Acute Code(s): I25.10 - ATHSCL HEART DISEASE OF [place] CORONARY ARTERY W/O ANG PCTRS SNOMED Code(s): 97759583 Comment: Continue ASA, coreg and lipitor. No c/o CP or concerning signs/ symptoms. (10) HTN (hypertension) Current Visit: Yes Status: Acute Code(s): I10 - ESSENTIAL (PRIMARY) HYPERTENSION SNOMED Code(s): 41736863 Comment: -Uncontrolled -Added Amlodipine to her regimen (11) DVT prophylaxis Current Visit: Yes Status: Acute Code(s): MIF8978 - SNOMED Code(s): 135051083 Comment: -Hold Eliquis -Continue ASA due to known CAD Status and Disposition: -Possible D/C to [facility] in AM
[2018-05-11] MEDS: Apixaban* 5 MG TAB PO SCH (21:13)
[2018-05-11 22:21] LABS: Hematocrit 28 % (35-47); Hemoglobin 9.3 g/dl (12.0-16.0); Mean Corpuscular HGB Conc 34 g/dl (31-36); Mean Corpuscular Hemoglobin 31 pg (27-31); Mean Corpuscular Volume 92 fL (80-97); Mean Platelet Volume 6.7 fL (7.4-10.4); Platelet Count 278 10^3/ul (150-450); Red Blood Count 3.01 10^6/ul (4.00-5.40); Red Cell Distribution Width 15 % (10.5-15); White Blood Count 11.3 10^3/ul (3.5-10.8)
[2018-05-11 22:39] LABS: ABS Basophils 0 10^3/ul (0-0.2); ABS Eosinophils 0.1 10^3/ul (0-0.6); ABS Lymphocytes 0.6 10^3/ul (1.0-4.8); ABS Monocytes 1.5 10^3/ul (0-0.8); ABS Nucleated RBC 0 10^3/ul; Eosinophil % 0.9 %; Lymphocyte % 5.3 %; Nucleated Red Blood Cells % 0.1
[2018-05-12 06:11] LABS: Hematocrit 25 % (35-47); Hemoglobin 8.4 g/dl (12.0-16.0); Mean Corpuscular HGB Conc 34 g/dl (31-36); Mean Corpuscular Hemoglobin 31 pg (27-31); Mean Corpuscular Volume 91 fL (80-97); Mean Platelet Volume 6.7 fL (7.4-10.4); Platelet Count 258 10^3/ul (150-450); Red Blood Count 2.68 10^6/ul (4.00-5.40); Red Cell Distribution Width 14 % (10.5-15); White Blood Count 10.3 10^3/ul (3.5-10.8)
[2018-05-12 06:30] LABS: Albumin 2.2 g/dL (3.2-5.2); Albumin/Globulin Ratio 0.8 (1-3); BUN/Creatinine Ratio 23.5 (8-20); Calcium 7.8 mg/dL (8.6-10.3); EGFR Non-African American 44.6 (>60); Globulin 2.8 g/dL (2-4); Magnesium 2.1 mg/dL (1.9-2.7); Potassium 4.2 mmol/L (3.5-5.0)
[2018-05-12 06:53] LABS: ABS Basophils 0 10^3/ul (0-0.2); ABS Eosinophils 0.1 10^3/ul (0-0.6); ABS Lymphocytes 0.6 10^3/ul (1.0-4.8); ABS Monocytes 1.5 10^3/ul (0-0.8); ABS Neutrophils 8.1 10^3/ul (1.5-7.7); ABS Nucleated RBC 0 10^3/ul; Eosinophil % 0.8 %; Lymphocyte % 5.9 %; Nucleated Red Blood Cells % 0
[2018-05-12] MEDS: Aspirin EC TAB* 81 MG TAB.EC PO SCH (08:05)
[2018-05-12] MEDS: Senna TAB PO SCH ×2 (08:05→21:54)
[2018-05-12] MEDS: Docusate CAP* 100 MG PO SCH ×2 (08:05→21:54)
[2018-05-12] MEDS: Nystatin TOP POWDER* 15 GM BTL TOPICAL SCH ×3 (08:05→21:56)
[2018-05-12] MEDS: Cyanocobalamin TAB* 500 MCG PO SCH (08:05)
[2018-05-12] MEDS: Multivitamins/Minerals TAB PO SCH (08:05)
[2018-05-12] MEDS: Folic Acid TAB* 1 MG PO SCH (08:05)
[2018-05-12] MEDS: Apixaban* 5 MG TAB PO SCH ×2 (08:05→21:54)
[2018-05-12] MEDS: Ferrous Sulfate TAB* 325 MG PO SCH (08:05)
[2018-05-12] MEDS: Atorvastatin* 40 MG TAB PO SCH (08:05)
[2018-05-12] MEDS: amLODIPine TAB* 5 MG PO SCH (08:05)
[2018-05-12] MEDS: Amiodarone TAB* 200 MG PO SCH (08:06)
[2018-05-12] MEDS: Carvedilol TAB* 3.125 MG PO SCH ×2 (08:06→21:54)
--- NOTE | 2018-05-12 08:12 | PN ---
Hospitalist Progress Note Date of Service: 05/12/18 Reviewed labs today and mild decrease in H&H noted. Pt re-started on full dose Apixaban per GFR due to equivocal dopplers that possibly be due to DVT. Recommend to recheck and trend H&H to see if further post-op blood loss is stable with this regimen prior to D/C. Ordered repeat H&H at 2 PM. Will transcribe full note later during the day.
[2018-05-12] MEDS: Albuterol/Ipratropium NEB.SOL* Albuterol 2.5 MG/Ipratropium 0.5 MG 3 ML INH PRN (08:23)
[2018-05-12] MEDS ORDERED: Sodium Phosphate INJ* 15 MMOLE in NS 0.9% 250 ML* 250 ML IVPB ONE (09:00)
--- NOTE | 2018-05-12 12:56 | PN ---
Progress Note - Progress Note Date of Service: 05/12/18 SOAP: Subjective: Pt is s/p left hip hemiarthroplasty, right wrist fracture. Doing well. Pain controlled. Per Hospitalist, pt with slight H/H drop, would like to repeat prior to d/c to [facility]. Pt without complaints at this time. Objective: Vital Signs: Temp Pulse Resp BP Pulse Ox 98.7 F 64 15 124/37 94 05/12/18 11:24 05/12/18 11:24 05/12/18 11:24 05/12/18 11:24 05/12/18 11:24 Gen: A&Ox3, NAD at rest in chair Left hip: Dressing C/D/I. Thigh soft, mild TTP. +f/e at ankle and MTPs, N/V intact. RUE: Cast C/D/I. + f/e at MCP/PIP/DIP joints of all digits, N/V intact Laboratory Results - last 24 hr 05/09/18 05/09/18 05/11/18 05:20 16:59 14:12 WBC 11.0 H RBC 3.09 L Hgb 9.3 L Hct 29 L MCV 93 MCH 30 MCHC 33 RDW 15 Plt Count 236 MPV 6.9 L Neut % (Auto) 84.9 Lymph % (Auto) 4.2 [place] % (Auto) 10.3 Eos % (Auto) 0.5 Baso % (Auto) 0.1 Absolute Neuts (auto) 9.4 H Absolute Lymphs (auto) 0.5 L Absolute Monos (auto) 1.1 H Absolute Eos (auto) 0.1 Absolute Basos (auto) 0 Absolute Nucleated RBC 0 Nucleated RBC % 0.1 Sodium Potassium Chloride Carbon Dioxide Anion Gap BUN Creatinine Est GFR ( Amer) Est GFR (Non-Af Amer) BUN/Creatinine Ratio Glucose Calcium Phosphorus Magnesium Total Bilirubin AST ALT Alkaline Phosphatase Total Protein Albumin Globulin Albumin/Globulin Ratio Blood Type O Positive Antibody Screen Negative Crossmatch See Detail Transfusion React Rpt Reaction Interpretation 05/11/18 05/12/18 05/12/18 22:09 05:54 05:54 WBC 11.3 H 10.3 RBC 3.01 L 2.68 L Hgb 9.3 L 8.4 L Hct 28 L 25 L MCV 92 91 MCH 31 31 MCHC 34 34 RDW 15 14 Plt Count 278 258 MPV 6.7 L 6.7 L Neut % (Auto) 79.9 78.9 Lymph % (Auto) 5.3 5.9 [place] % (Auto) 13.6 14.2 Eos % (Auto) 0.9 0.8 Baso % (Auto) 0.3 0.2 Absolute Neuts (auto) 9.0 H 8.1 H Absolute Lymphs (auto) 0.6 L 0.6 L Absolute Monos (auto) 1.5 H 1.5 H Absolute Eos (auto) 0.1 0.1 Absolute Basos (auto) 0 0 Absolute Nucleated RBC 0 0 Nucleated RBC % 0.1 0 Sodium 132 L Potassium 4.2 Chloride 99 L Carbon Dioxide 28 Anion Gap 5 BUN 27 H Creatinine 1.15 H Est GFR ( Amer) 54.0 Est GFR (Non-Af Amer) 44.6 BUN/Creatinine Ratio 23.5 H Glucose 106 H Calcium 7.8 L Phosphorus 2.0 L Magnesium 2.1 Total Bilirubin 1.00 AST 113 H ALT 28 Alkaline Phosphatase 74 Total Protein 5.0 L Albumin 2.2 L Globulin 2.8 Albumin/Globulin Ratio 0.8 L Blood Type Antibody Screen Crossmatch Transfusion React Rpt Reaction Interpretation Assessment: S/P left hip hemiarthroplasty, right distal radius fracture Plan: Cont PT/OT with posterior hip precautions Change cast prior to d/c Cont eliquis for DVT ppx
[2018-05-12 13:32] LABS: Hematocrit 27 % (35-47); Mean Corpuscular HGB Conc 34 g/dl (31-36); Mean Corpuscular Hemoglobin 31 pg (27-31); Mean Corpuscular Volume 92 fL (80-97); Mean Platelet Volume 6.6 fL (7.4-10.4); Platelet Count 282 10^3/ul (150-450); Red Blood Count 2.92 10^6/ul (4.00-5.40); Red Cell Distribution Width 14 % (10.5-15); White Blood Count 11.6 10^3/ul (3.5-10.8)
[2018-05-12 14:14] LABS: ABS Basophils 0.1 10^3/ul (0-0.2); ABS Eosinophils 0.1 10^3/ul (0-0.6); ABS Lymphocytes 0.5 10^3/ul (1.0-4.8); ABS Monocytes 1.3 10^3/ul (0-0.8); ABS Neutrophils 9.6 10^3/ul (1.5-7.7); ABS Nucleated RBC 0 10^3/ul; Eosinophil % 0.5 %; Lymphocyte % 4.7 %; Nucleated Red Blood Cells % 0.1
[2018-05-12] MEDS ORDERED: Furosemide IV* 10 MG/ML VIAL (40 MG) IV ONE (14:28)
--- NOTE | 2018-05-12 14:45 | PN ---
Subjective Date of Service: 05/12/18 Interval History: Pt seen and examined. Meds and labs reviewed. CC: N/A ROS: Denied MENA/dizziness, F/C, N/V, CP, SOB, increased cough, sputum production , abd pain, diarrhea, constipation, dysuria, myalgias, arthralgias, throat pain , and new skin lesions. The rest of the 14 point ROS are unremarkable. PHYSICAL EXAM: GEN APPEARANCE: Awake, not in acute distress HEENT: NC/AT, PERRLA, moist oral mucosa, (-) throat erythema NECK: Soft, supple, (-) cervical LAD, (-)JVD HEART: S1S2 WNL, RRR, No MRG CHEST: CTA, BL, GAE, (+)Wheeze, mild, expiratory ABD: Soft, ND/NT, NABS 4x Q EXT: No C/C/BL calf tenderness SKIN: Warm to touch PSYCH: No active psychosis, hallucinations, depression, SI/HI Family History: Unchanged from Admission Social History: Unchanged from Admission Past Medical History: Unchanged from Admission Objective Active Medications: Acetaminophen (Tylenol Tab*) 650 mg PO Q4H PRN PRN Reason: FEVER/PAIN Last Admin: 05/07/18 07:29 Dose: 650 mg Al Hydrox/Mg Hydrox/Simethicone (Maalox Plus*) 30 ml PO Q6H PRN PRN Reason: INDIGESTION Albuterol/Ipratropium (Duoneb (Albuterol 2.5 Mg/Ipratropium 0.5 Mg)) 1 neb INH Q4H PRN PRN Reason: SOB/WHEEZING Last Admin: 05/12/18 08:23 Dose: 1 neb Amiodarone HCl (Cordarone Tab*) 200 mg PO QAM [facility] Last Admin: 05/12/18 08:06 Dose: 200 mg Amlodipine Besylate (Norvasc Tab*) 5 mg PO DAILY [facility] Last Admin: 05/12/18 08:05 Dose: 5 mg Apixaban (Eliquis*) 5 mg PO BID [facility] Last Admin: 05/12/18 08:05 Dose: 5 mg Aspirin (Aspirin Ec Tab*) 81 mg PO DAILY [facility] Last Admin: 05/12/18 08:05 Dose: 81 mg Atorvastatin Calcium (Lipitor*) 40 mg PO DAILY [facility] Last Admin: 05/12/18 08:05 Dose: 40 mg Carvedilol (Coreg Tab*) 3.125 mg PO BID [facility] Last Admin: 05/12/18 08:06 Dose: 3.125 mg Cyanocobalamin (Vitamin B12 Tab*) 1,000 mcg PO DAILY [facility] Last Admin: 05/12/18 08:05 Dose: 1,000 mcg Docusate Sodium (Colace Cap*) 100 mg PO BID [facility] Last Admin: 05/12/18 08:05 Dose: 100 mg Ferrous Sulfate (Ferrous Sulfate Tab*) 325 mg PO DAILY@0800 [facility] Last Admin: 05/12/18 08:05 Dose: 325 mg Folic Acid (Folvite Tab*) 1 mg PO QAM [facility] Last Admin: 05/12/18 08:05 Dose: 1 mg Sodium Phosphate 15 mmole/ (Sodium Chloride) 255 mls @ 42 mls/hr IVPB ONCE ONE Stop: 05/12/18 15:04 Last Admin: 05/12/18 09:56 Dose: 42 mls/hr Multivitamins/Minerals (Theragran/Minerals Tab*) 1 tab PO DAILY [facility] Last Admin: 05/12/18 08:05 Dose: 1 tab Nystatin (Nystatin Top Powder*) 1 applic TOPICAL TID [facility] Last Admin: 05/12/18 13:47 Dose: 1 applic Ondansetron HCl (Zofran Inj*) 4 mg IV Q4H PRN PRN Reason: NAUSEA/VOMITING Last Admin: 05/07/18 03:49 Dose: 4 mg Oxycodone/Acetaminophen (Percocet 5/325 Tab*) 2 tab PO Q4H PRN PRN Reason: SEVERE PAIN Last Admin: 05/08/18 20:38 Dose: 2 tab Polyethylene Glycol/Electrolytes (Miralax*) 17 gm PO DAILY PRN PRN Reason: CONSTIPATION Senna (Senokot Tab*) 1 tab PO BID [facility] Last Admin: 05/12/18 08:05 Dose: 1 tab Vital Signs - 8 hr 05/12/18 05/12/18 05/12/18 07:38 07:41 08:00 Temperature 99.3 F Pulse Rate 69 70 Respiratory 20 20 Rate Blood Pressure 153/51 (mmHg) O2 Sat by Pulse 93 93 93 Oximetry 05/12/18 05/12/18 08:23 11:24 Temperature 98.7 F Pulse Rate 70 64 Respiratory 18 15 Rate Blood Pressure 124/37 (mmHg) O2 Sat by Pulse 96 94 Oximetry Oxygen Devices in Use Now: None Result Diagrams: 05/12/18 13:20 05/12/18 05:54 Microbiology and Other Data: Microbiology 05/04/18 22:30 Influenza Types A,B Antigen - Final Nasal Specimen received for Influenza A/B Molecular testing Assess/Plan/Problems-Billing Mrs Sherwood is an 87yo F with PMHx of obesity with BMI of 36, Afib on Eliquis, CAD s/p NSTEMI with BMS to RCA 2017, tachybrady syndrome, s/p AVR ( bioprosthetic), HTN, HLD, CKD stage 3-4, recent right wrist fracture, who presented to ED after a fall, found to have left femoral neck fracture. - Patient Problems (1) Acute blood loss anemia Current Visit: Yes Status: Acute Code(s): D62 - ACUTE POSTHEMORRHAGIC ANEMIA SNOMED Code(s): 018692856 Comment: -H&H mild decrease this AM but on repeat at 1400 shows relatively stable H&H -Continue to trend H&H -Continue Apixaban -Continue ASA given known hx of CAD (2) Constipation Current Visit: Yes Status: Acute Code(s): K59.00 - CONSTIPATION, UNSPECIFIED SNOMED Code(s): 91088938 Comment: -Resolved -Continue Senna-Plus and Miralax PRN -Continue watchful waiting (3) Hyponatremia Current Visit: Yes Status: Acute Code(s): E87.1 - HYPO-OSMOLALITY AND HYPONATREMIA SNOMED Code(s): 30845605 Comment: #Hypervolemic hyponatremia: -Slightly improved -Will give Lasix IV x1 as ordered -Continue to follow and stop diuresis if sodium concentration deteriorates or clinical picture suggests euvolemia/hypovolemia -Difficult to assess clinically given obesity (4) Atrial fibrillation Current Visit: Yes Status: Acute Onset Date: 01/25/14 Code(s): I48.91 - UNSPECIFIED ATRIAL FIBRILLATION SNOMED Code(s): 46984459 Comment: -Continue Amiodarone and Coreg -Continue Apixaban (5) SIRS (systemic inflammatory response syndrome) Current Visit: Yes Status: Acute Code(s): R65.10 - SIRS OF NON-INFECTIOUS ORIGIN W/O ACUTE ORGAN DYSFUNCTION SNOMED Code(s): 427612732 Comment: -Resolved -No further fever. No clear source of infection. ? drug fever. -Monitor temperature and WBC count as it is now further elevated. (6) Closed left hip fracture Current Visit: Yes Status: Acute Code(s): S72.002A - FRACTURE OF UNSP PART OF NECK OF LEFT FEMUR, INIT SNOMED Code(s): 386570379 Comment: -Management per orthopedics -S/P L. hip hemiarthroplasty POD #5 (7) SIM (acute kidney injury) Current Visit: Yes Status: Acute Code(s): N17.9 - ACUTE KIDNEY FAILURE, UNSPECIFIED SNOMED Code(s): 79762231 Comment: -Likely due to acute blood loss initially followed by congestive related deterioration -Continue diuretics and reassess in AM given pt is fluid sensitive -Continue watchful waiting (8) Calf pain Current Visit: Yes Status: Acute Code(s): M79.669 - PAIN IN UNSPECIFIED LOWER LEG SNOMED Code(s): 209917027 Comment: -Significant tenderness still present -Equivocal Doppler for DVT -Continue Apixaban to renally dosed 5 mg BID---given significant perioperative blood loss, will not initiate the usualy 10 mg BID x 7 days prior to usualy 5 bid dosing; placed pt back on usual 5 mg BID regimen (9) Coronary artery disease Current Visit: Yes Status: Acute Code(s): I25.10 - ATHSCL HEART DISEASE OF [place] CORONARY ARTERY W/O ANG PCTRS SNOMED Code(s): 79514525 Comment: Continue ASA, coreg and lipitor. No c/o CP or concerning signs/ symptoms. (10) HTN (hypertension) Current Visit: Yes Status: Acute Code(s): I10 - ESSENTIAL (PRIMARY) HYPERTENSION SNOMED Code(s): 04924141 Comment: -Uncontrolled -Added Amlodipine to her regimen (11) DVT prophylaxis Current Visit: Yes Status: Acute Code(s): SHH8875 - SNOMED Code(s): 296192168 Comment: -Continue Eliquis -Continue ASA due to known CAD Status and Disposition: -Pt requests to be re-evaluated by PMRU and will defeR
[2018-05-12] MEDS: Acetaminophen TAB* 325 MG PO PRN (15:17)
[2018-05-12 20:41] LABS: Hematocrit 26 % (35-47); Hemoglobin 8.8 g/dl (12.0-16.0); Mean Corpuscular HGB Conc 34 g/dl (31-36); Mean Corpuscular Hemoglobin 31 pg (27-31); Mean Corpuscular Volume 92 fL (80-97); Mean Platelet Volume 6.5 fL (7.4-10.4); Platelet Count 291 10^3/ul (150-450); Red Blood Count 2.86 10^6/ul (4.00-5.40); Red Cell Distribution Width 14 % (10.5-15); White Blood Count 11.1 10^3/ul (3.5-10.8)
[2018-05-12 21:00] LABS: ABS Basophils 0 10^3/ul (0-0.2); ABS Eosinophils 0.1 10^3/ul (0-0.6); ABS Lymphocytes 0.7 10^3/ul (1.0-4.8); ABS Monocytes 1.2 10^3/ul (0-0.8); ABS Neutrophils 9.1 10^3/ul (1.5-7.7); ABS Nucleated RBC 0 10^3/ul; Nucleated Red Blood Cells % 0.1
[2018-05-12] MEDS: oxyCODONE/Acetamin 5/325 MG* TAB PO PRN (21:55)
[2018-05-13 05:17] LABS: Hematocrit 25 % (35-47); Hemoglobin 8.4 g/dl (12.0-16.0); Mean Corpuscular HGB Conc 34 g/dl (31-36); Mean Corpuscular Hemoglobin 31 pg (27-31); Mean Corpuscular Volume 92 fL (80-97); Mean Platelet Volume 6.7 fL (7.4-10.4); Platelet Count 291 10^3/ul (150-450); Red Blood Count 2.67 10^6/ul (4.00-5.40); Red Cell Distribution Width 14 % (10.5-15); White Blood Count 9.9 10^3/ul (3.5-10.8)
[2018-05-13 05:18] LABS: BUN/Creatinine Ratio 22.8 (8-20); Calcium 7.8 mg/dL (8.6-10.3); EGFR Non-African American 41.3 (>60); Magnesium 2.1 mg/dL (1.9-2.7)
[2018-05-13] MEDS: Ferrous Sulfate TAB* 325 MG PO SCH (08:05)
[2018-05-13] MEDS: Docusate CAP* 100 MG PO SCH ×2 (08:05→22:26)
[2018-05-13] MEDS: amLODIPine TAB* 5 MG PO SCH (08:06)
[2018-05-13] MEDS: Amiodarone TAB* 200 MG PO SCH (08:06)
[2018-05-13] MEDS: Cyanocobalamin TAB* 500 MCG PO SCH (08:06)
[2018-05-13] MEDS: Carvedilol TAB* 3.125 MG PO SCH ×2 (08:06→22:27)
[2018-05-13] MEDS: Atorvastatin* 40 MG TAB PO SCH (08:06)
[2018-05-13] MEDS: Aspirin EC TAB* 81 MG TAB.EC PO SCH (08:06)
[2018-05-13] MEDS: Multivitamins/Minerals TAB PO SCH (08:06)
[2018-05-13] MEDS: Apixaban* 5 MG TAB PO SCH ×2 (08:06→22:27)
[2018-05-13] MEDS: Folic Acid TAB* 1 MG PO SCH (08:06)
[2018-05-13] MEDS: Senna TAB PO SCH ×2 (08:06→22:26)
[2018-05-13] MEDS: oxyCODONE/Acetamin 5/325 MG* TAB PO PRN ×4 (08:09→18:44)
[2018-05-13] MEDS: Nystatin TOP POWDER* 15 GM BTL TOPICAL SCH ×2 (08:27→14:49)
--- NOTE | 2018-05-13 08:52 | PN ---
Progress Note - Progress Note Date of Service: 05/13/18 SOAP: Subjective: resting comfortably with no significant complaints of pain Objective: Vital Signs Temp Pulse Resp BP Pulse Ox 99.0 F 70 16 161/51 95 05/13/18 07:25 05/13/18 07:25 05/13/18 08:09 05/13/18 07:25 05/13/18 08:00 Laboratory Last Values WBC 9.9 10^3/ul (3.5-10.8) 05/13/18 04:48 RBC 2.67 10^6/ul (4.00-5.40) L 05/13/18 04:48 Hgb 8.4 g/dl (12.0-16.0) L 05/13/18 04:48 Hct 25 % (35-47) L 05/13/18 04:48 MCV 92 fL (80-97) 05/13/18 04:48 MCH 31 pg (27-31) 05/13/18 04:48 MCHC 34 g/dl (31-36) 05/13/18 04:48 RDW 14 % (10.5-15) 05/13/18 04:48 Plt Count 291 10^3/ul (150-450) 05/13/18 04:48 MPV 6.7 fL (7.4-10.4) L 05/13/18 04:48 Neut % (Auto) 82.0 % 05/12/18 20:33 Lymph % (Auto) 6.0 % 05/12/18 20:33 [place] % (Auto) 10.6 % 05/12/18 20:33 Eos % (Auto) 1.0 % 05/12/18 20:33 Baso % (Auto) 0.4 % 05/12/18 20:33 Absolute Neuts (auto) 9.1 10^3/ul (1.5-7.7) H 05/12/18 20:33 Absolute Lymphs (auto) 0.7 10^3/ul (1.0-4.8) L 05/12/18 20:33 Absolute Monos (auto) 1.2 10^3/ul (0-0.8) H 05/12/18 20:33 Absolute Eos (auto) 0.1 10^3/ul (0-0.6) 05/12/18 20:33 Absolute Basos (auto) 0 10^3/ul (0-0.2) 05/12/18 20:33 Absolute Nucleated RBC 0 10^3/ul 05/12/18 20:33 Nucleated RBC % 0.1 05/12/18 20:33 ESR 56 mm/Hr (0-30) H 05/04/18 08:01 INR (Anticoag Therapy) 1.37 (0.77-1.02) H 05/07/18 05:04 APTT 35.4 seconds (26.0-36.3) 05/05/18 05:22 Sodium 134 mmol/L (135-145) L 05/13/18 04:51 Potassium 4.0 mmol/L (3.5-5.0) 05/13/18 04:51 Chloride 99 mmol/L (101-111) L 05/13/18 04:51 Carbon Dioxide 29 mmol/L (22-32) 05/13/18 04:51 Anion Gap 6 mmol/L (2-11) 05/13/18 04:51 BUN 28 mg/dL (6-24) H 05/13/18 04:51 Creatinine 1.23 mg/dL (0.51-0.95) H 05/13/18 04:51 Est GFR ( Amer) 50.0 (>60) 05/13/18 04:51 Est GFR (Non-Af Amer) 41.3 (>60) 05/13/18 04:51 BUN/Creatinine Ratio 22.8 (8-20) H 05/13/18 04:51 Glucose 100 mg/dL (70-100) 05/13/18 04:51 Serum Osmolality 279 mOsm/kg (275-295) 05/09/18 16:59 Calcium 7.8 mg/dL (8.6-10.3) L 05/13/18 04:51 Ionized Calcium 1.18 mmol/L (1.16-1.32) 05/11/18 05:07 Phosphorus 3.0 mg/dL (2.5-5.0) 05/13/18 04:51 Magnesium 2.1 mg/dL (1.9-2.7) 05/13/18 04:51 Total Bilirubin 1.00 mg/dL (0.2-1.0) 05/12/18 05:54 AST 113 U/L (13-39) H 05/12/18 05:54 ALT 28 U/L (7-52) 05/12/18 05:54 Alkaline Phosphatase 74 U/L (34-104) 05/12/18 05:54 Troponin I 0.03 ng/mL (<0.04) 05/05/18 05:22 C-Reactive Protein 112.78 mg/L (<8.01) H 05/06/18 06:13 Total Protein 5.0 g/dL (6.4-8.9) L 05/12/18 05:54 Albumin 2.2 g/dL (3.2-5.2) L 05/12/18 05:54 Globulin 2.8 g/dL (2-4) 05/12/18 05:54 Albumin/Globulin Ratio 0.8 (1-3) L 05/12/18 05:54 Urine Color Yellow 05/04/18 23:57 Urine Appearance Cloudy 05/04/18 23:57 Urine pH 5.0 (5-9) 05/04/18 23:57 Ur Specific [place] 1.021 (1.010-1.030) 05/04/18 23:57 Urine Protein Negative (Negative) 05/04/18 23:57 Urine Ketones Negative (Negative) 05/04/18 23:57 Urine Blood 3+ (Negative) A 05/04/18 23:57 Urine Nitrate Negative (Negative) 05/04/18 23:57 Urine Bilirubin Negative (Negative) 05/04/18 23:57 Urine Urobilinogen Negative (Negative) 05/04/18 23:57 Ur Leukocyte Esterase Negative (Negative) 05/04/18 23:57 Urine WBC (Auto) 1+(6-10/hpf) (Absent) A 05/04/18 23:57 Urine RBC (Auto) 3+(>10/hpf) (Absent) A 05/04/18 23:57 Urine Bacteria Absent (Absent) 05/04/18 23:57 Hyaline Casts Present (Absent) A 05/04/18 23:57 Urine Osmolality 390 mOsm/kg (100-1150) 05/10/18 04:00 Ur Creatinine Concen 100.81 mg/dL 05/10/18 04:00 U Sodium Concentration < 18 mmol/L 05/10/18 04:00 Urine Glucose Negative (Negative) 05/04/18 23:57 Influenza A (Rapid) Negative (Negative) 05/04/18 23:09 Influenza B (Rapid) Negative (Negative) 05/04/18 23:09 Blood Type O Positive 05/09/18 05:20 Antibody Screen Negative 05/09/18 05:20 Crossmatch See Detail 05/09/18 05:20 Transfusion React Rpt 05/09/18 16:59 Donor Unit # [id number] 05/09/18 16:59 Post-Trans Blood Type O Positive 05/09/18 16:59 Post-Trans CECILIA Negative 05/09/18 16:59 Reaction Interpretation 05/09/18 16:59 incision: c/d PE: able to dorsi flex/plantar flex, palpable DP pulse and intact sensation; right wirst cast in place; able to move all fingers with good cap refill and intact sensation Assessment: s/p left hip estrella and right distal radius fracture Plan: 1) PT/OT- WBAT LLE 2) Eliquis for DVT prophylaxis 3) Hospitalist co-managing 4) cast change prior to DC
--- NOTE | 2018-05-13 12:27 | PN ---
Progress Note - Progress Note Date of Service: 05/13/18 Note: Time spent on discharge including exam of patient, discussion with patient, family, nurse, CM, review of EMR and preparation odf discharge documents is 45 minutes.
[2018-05-14] MEDS: oxyCODONE/Acetamin 5/325 MG* TAB PO PRN ×3 (01:48→14:05)
[2018-05-14] MEDS: Nystatin TOP POWDER* 15 GM BTL TOPICAL SCH ×2 (02:45→08:34)
[2018-05-14] MEDS: Amiodarone TAB* 200 MG PO SCH (08:26)
[2018-05-14] MEDS: Senna TAB PO SCH (08:26)
[2018-05-14] MEDS: Folic Acid TAB* 1 MG PO SCH (08:26)
[2018-05-14] MEDS: Cyanocobalamin TAB* 500 MCG PO SCH (08:26)
[2018-05-14] MEDS: Apixaban* 5 MG TAB PO SCH (08:26)
[2018-05-14] MEDS: Docusate CAP* 100 MG PO SCH (08:26)
[2018-05-14] MEDS: Carvedilol TAB* 3.125 MG PO SCH (08:27)
[2018-05-14] MEDS: Aspirin EC TAB* 81 MG TAB.EC PO SCH (08:27)
[2018-05-14] MEDS: Atorvastatin* 40 MG TAB PO SCH (08:27)
[2018-05-14] MEDS: Multivitamins/Minerals TAB PO SCH (08:27)
[2018-05-14] MEDS: amLODIPine TAB* 5 MG PO SCH (08:27)
[2018-05-14] MEDS: Ferrous Sulfate TAB* 325 MG PO SCH (08:27)
[2018-05-14] MEDS ORDERED: oxyCODONE/Acetamin 5/325 MG* TAB PO PRN (09:41)
--- NOTE | 2018-05-14 10:34 | TRS ---
CC: Dr. Quevedo; Dr. Cisneros * TRANSFER SUMMARY: DATE OF ADMISSION: DATE OF TRANSFER: 05/14/18 HISTORY OF PRESENT ILLNESS: This 87-year-old woman presented with a fall with left hip pain. She had a mechanical fall on 04/24/18, went to urgent care. She had a right radial head fracture and had a cast placed. She had some left hip pain, but CT was read as negative. On the morning of 05/03/18, she fell on the left hip and had worse hip pain and in the emergency room was found to have a displaced angulated left subcapital femoral neck fracture. The patient prior to that had been ambulating with a cane. The patient underwent ORIF of the left hip fracture in 05/07/[address] Johnson. She did well postoperatively. She did have an ultrasound of both lower legs. The distal femoral veins were not completely visualized possibly due to edema. The patient is being transferred for subacute rehabilitation. The patient had an anemia on the chronic basis, probably exacerbated by her operation. She had 4 units of blood transfused. Hemoglobin was 8.4 on . FINAL DIAGNOSES: 1. Acute blood loss anemia. 2. Left hip fracture. 3. Atrial fibrillation. 4. Hypertension. DISCHARGE MEDICATIONS: 1. Acetaminophen 650 mg every 4 hours p.r.n. 2. Amlodipine 5 mg daily. 3. Nystatin powder t.i.d. to affected areas. 4. Oxycodone acetaminophen 5/325, 2 every 4 hours as needed. 5. Polyethylene glycol 17 g b.i.d. 6. Furosemide 40 mg daily. 7. Folic acid 1 mg daily. 8. Carvedilol 3.125 mg b.i.d. 9. Docusate 100 mg t.i.d. 10. Aspirin 81 mg daily. 11. Amiodarone 200 mg daily. 12. Potassium chloride 10 mEq daily. 13. Apixaban 5 mg b.i.d. 14. Nitroglycerin 0.4 mg sublingual every 5 minutes p.r.n. 15. Vitamin B12 1000 mcg daily. 16. Multivitamin with mineral daily. 17. Calcium carbonate with vitamin D3, 2 tablets daily. 18. Ferrous sulfate 325 mg daily. 19. Atorvastatin 40 mg daily. CONDITION ON DISCHARGE: Stable. DISPOSITION ON DISCHARGE: [facility]. [id number]/[facility] #: [id number] [facility]
[2018-05-14 11:26] VITALS: BP 151/57
== END 2018-05-14 14:20 | DRG 469 ==
LOC: ED 05:40 → SSU 09:27
PROVIDERS: ADMIT Pediatrics; ATTEND Internal Medicine
PROC: 0SRS0JZ Replacement of Left Hip Joint, Femoral Surface with Synthetic Substitute, Open Approach (ICD-10-PCS; principal; 2018-05-06 16:30)
PROC: 30233N1 Transfusion of Nonautologous Red Blood Cells into Peripheral Vein, Percutaneous Approach (ICD-10-PCS; 2018-05-07)
DX: S72.012A Unspecified intracapsular fracture of left femur, initial encounter for closed fracture (principal); I50.33 Acute on chronic diastolic (congestive) heart failure; I82.409 Acute embolism and thrombosis of unspecified deep veins of unspecified lower extremity; D62 Acute posthemorrhagic anemia; N17.9 Acute kidney failure, unspecified; R65.10 Systemic inflammatory response syndrome (SIRS) of non-infectious origin without acute organ dysfunction; E87.1 Hypo-osmolality and hyponatremia; N18.4 Chronic kidney disease, stage 4 (severe); I13.0 Hypertensive heart and chronic kidney disease with heart failure and stage 1 through stage 4 chronic kidney disease, or unspecified chronic kidney disease; E86.1 Hypovolemia; K59.00 Constipation, unspecified; I25.10 Atherosclerotic heart disease of native coronary artery without angina pectoris; I73.9 Peripheral vascular disease, unspecified; K58.9 Irritable bowel syndrome, unspecified; M19.90 Unspecified osteoarthritis, unspecified site; E78.5 Hyperlipidemia, unspecified; I48.0 Paroxysmal atrial fibrillation; W01.0XXA Fall on same level from slipping, tripping and stumbling without subsequent striking against object, initial encounter; Z96.1 Presence of intraocular lens; Z98.42 Cataract extraction status, left eye; Z95.2 Presence of prosthetic heart valve; I25.2 Old myocardial infarction; Z98.41 Cataract extraction status, right eye; Z95.5 Presence of coronary angioplasty implant and graft; Z82.49 Family history of ischemic heart disease and other diseases of the circulatory system; Y92.003 Bedroom of unspecified non-institutional (private) residence as the place of occurrence of the external cause; Z82.3 Family history of stroke
CPT/HCPCS: 36415; 71045; 72170; 72192; 80048; 80053; 81003; 81015; 82330; 82570; 83735; 83930; 83935; 84100; 84300; 84484; 85014; 85018; 85025; 85027; 85049; 85610; 85652; 85730; 86078; 86140; 86850; 86900; 86901; 86922; 87040; 87086; 88305; 88311; 93005; 93306; 93970; 94640; 99284; A9270-GY; C1776; C8929; G8978-GP-CM; G8979-GP-CI; G8987-GO-CJ; J0330; J0610; J0690; J0696; J1644; J1940; J2270; J2405; J2704; J3010; J3475; P9040

== ENCOUNTER 2018-05-30 02:04 | Emergency (ER) | payer MEDICARE ==
--- OUTSIDE RECORDS SUMMARY | 2018-05-30 02:17 | XMS REPORT | Continuity of Care Document ---
:1930 External Reference #:[id number] Author Name Sarahi Acevedo Care Team Providers Name Role Phone Susy Quevedo MD Primary Care Physician Unavailable Payers Date Identification Numbers Payment Provider Subscriber Policy Number: [id number] [employer] Veronica Bhat Group Number: [id number] [address] PayID: [id number] [place] [address] Effective: 1995 Policy Number: [id number] Medicare Veronica Bhat Expires: 2017 PayID: [id number] [address] [place] [address] Advance Directives Description No Information Available Problems [...] Patient has never smoked Smoking Status Reviewed: 05/27/18 Patient has never smoked Exercise Type/Frequency Exercises [...] sl q5mins Sub s x3 as needed Mracela Cisneros for chest [place] pain Potassium 06/04 Active Tablets 10Meq 90tab 1 tabdaily Talib Chloride /2012 ER s Marcela Cisneros M.D. Carvedilol 06/04 Active Tablets 3.125mg 180ta 1 po bid bs Marcela Cisneros M.D. Furosemide Active Tablets 40mg 1 po qd Stevanovi / Susy thompson MD Aspirin Active Tablets [...] Unknown /0000 Sub capsule/table t daily sublingually Atorvastatin Active Tablets 40mg 1 by mouth Unknown Calcium /0000 every day Oxycodone-Acetam Active Tablets 5-325mg 1 tabs by Unknown inophen /0000 mouth every 4-6 hours as needed for pain Amlodipine Active Tablets 5mg 1 by mouth Unknown Besylate /0000 every day Suprep Bowel 01/10 Hx Solution 17.5-3.13 1unit take David Moreno Kit /2017 -1.6GM/17 s according to Mickey, - 7ML kye BENJAMIN 02/14 physician's /2018 instructions the day before your procedure. split the dose as directed. Magnesium 01/10 Hx Solution 1.745GM/3 296ml Drink the Peter InessaCasey Citrate 0ML entire bottle Mickey - after dinner 04/24 two days before [...] Hx Cream 2.5% 30gra apply tid prn ms c, - Radomir, 03/18.D. Benefiber 03/29 Hx Powder 1jar 1 table spoon 565.0 in 1 liter of c, - water bid Radomir, 03/11.D. Analpram-HC 03/29 Hx Cream 1-1% 1tube 1 application 565.0 tid c, - Radomir, 04/06.D. Chlorothiazide Hx Tablets 500mg 90tab 1 po qday Stevanovi /0000 s c, - Radomir, 03/12 M.D. Lisinopril Hx Tablets 5mg 90tab 1 po qd Stevanovi /0000 s c, - Radomir, 01/13.D. Propranolol ER Hx Tablets 80mg 90tab 1 po qday Stevanovi /0000 s c, - Radomir, 03/12.D. Simvastatin Hx Tablets 40mg 90tab 1 po qhs Stevanovi /0000 s c, - Radomir, 05/27 M.D. Niaspan ER Hx Tablets 500mg 90tab 1 [...] s every day - 04/24 Amiodarone HCL 00 Hx Tablets 100mg 2 by mouth Unknown /0000 every day - 05/29 Immunizations Description No Information Available Vital Signs Date Vital Result Comment 05/27/2018 1:11pm Height 66 inches 5'6" Weight 250.00 lb per pt BP Systolic 148 mmHg BP Diastolic 62 mmHg Body Temperature 97.9 F Pain Level 6 BMI (Body Mass Index) 40.3 kg/m2 04/25/2018 10:31am Height 66 inches 5'6" Weight [...] Result H/L Range Note Laboratory test 02/21/2018 [facility] Surgical SEE RESULT [address] [place] [address] [phone] Laboratory test 12/28/2014 [facility] Inr/Protime 3.66 High 0.78-1.[address] [place] [address] [phone] CBC Auto Diff 12/28/2014 [facility] White Blood 4.9 10^3/uL N 4.8-10.[address] [place] [address] [phone] Red Blood Count 3.83 10^6/uL Low 4.0-5.4 [...] % 0 N Comp Metabolic Panel 12/28/2014 [facility] Sodium 133 mmol/L N 133-145 [address] [place] [address] [phone] Potassium 3.6 mmol/L N 3.5-5.0 Chloride 98 [...] 40.1 N >60 2 Laboratory test 12/28/2014 [facility] Magnesium 1.8 mg/dL Low 1.9-2.7 finding [address] [place] [address] [phone] Troponin-I (TnI) 0.00 ng/mL N <0.03 3 TSH (Thyroid Stim Horm) 2.86 ?IU/mL N 0.34-5.60 Laboratory test 01/25/2014 [facility] TSH (Thyroid 2.83 IU/mL N 0.34-5.60 finding [address] [place] [address] Tyza) [phone] CBC No Diff 01/25/2014 [facility] White Blood 5.3 N 4.8-10.8 4 [address] [facility] Count 10^3/[place] [address] [phone] Red Blood Count 3.37 10^6/uL Low 4.0-5.4 Hemoglobin 10.5 g/dL Low 12.0-16.0 Hematocrit 33 % Low 35-47 Mean Corpuscular Volume 97 fL N 80-97 Mean Corpuscular Hemoglobin 31 pg N 27-31 Mean Corpuscular HGB Conc 32 g/dL N 31-36 Red Cell Distribution Width 15 % N 10.5-15 Platelet Count 131 10^3/uL Low 150-450 Mean Platelet Volume 7 um3 Low 7.4-10.4 Inr/Protime 01/25/2014 [facility] Inr 2.32 High 0.85-1.06 [address] [place] [address] [phone] Basic Metabolic 01/25/2014 [facility] Sodium 138 mmol/L N 133- [address] [place] [address] [phone] Potassium 2.7 mmol/L Low 3.5-5.0 5 Chloride 97 mmol/L Low 101-111 Co2 Carbon Dioxide 30 mmol/L N 22-32 Anion Gap 11 mmol/L N 2-11 Glucose 136 mg/dL High 70-100 Blood Urea Nitrogen 27 mg/dL High 6-24 Creatinine 1.68 mg/dL High 0.51-0.95 BUN/Creatinine Ratio 16.1 N 8-20 Calcium 8.8 mg/dL N 8.6-10.3 Egfr Non- 29.1 N >60 Egfr 37.4 N >60 6 Laboratory test 12/07/2013 [facility] Inr 1.89 High 0.85-1.[address] [place] [address] [phone] Laboratory test 08/24/2013 [facility] Inr 1.99 High 0.85-1.[address] [place] [address] [phone] Laboratory test 07/27/2013 [facility] Inr 1.96 High 0.85-1.06 [place] [address] [phone] Laboratory test 07/06/2013 [facility] Inr 1.82 High 0.85-1.06 [place] [address] [phone] Laboratory test 06/08/2013 [facility] Inr 3.57 High 0.85-1.06 [place] [address] [phone] Laboratory test 05/25/2013 [facility] Inr 1.63 High 0.85-1.06 [place] [address] [phone] Laboratory test 04/27/2013 [facility] Inr 2.48 High 0.85-1.06 [place] [address] [phone] Laboratory test 03/30/2013 [facility] Inr 2.02 High 0.85-1.06 [place] [address] [phone] Inr/Protime 03/02/2013 Inr 2.05 High 0.85-1.06 7 Laboratory test 02/02/2013 [facility] Inr 2.31 High 0.85-1.06 8 [place] [address] [phone] Laboratory test 01/05/2013 [facility] Inr 2.30 High 0.87-0.97 [place] [address] [phone] Laboratory test 12/08/2012 [facility] Inr 2.67 High 0.87-0.97 [place] [address] [phone] Laboratory test 11/11/2012 [facility] Inr 2.42 High 0.87-0.[address] [place] [address] [phone] Laboratory test 10/20/2012 [facility] Inr 2.22 High 0.87-0.97 [place] [address] [phone] Laboratory test 10/06/2012 [facility] Inr 1.82 High 0.87-0.[address] [place] [address] [phone] Laboratory test 09/22/2012 [facility] Inr 1.69 High 0.87-0.[address] [place] [address] [phone] Laboratory test 08/25/2012 [facility] Inr 1.89 High 0.87-0.[address] [place] [address] [phone] Laboratory test 07/28/2012 [facility] Inr 2.25 High 0.87-0.[address] [place] [address] [phone] Laboratory test 06/30/2012 [facility] Inr 2.30 High 0.87-0.[address] [place] [address] [phone] Laboratory test 06/09/2012 [facility] Inr 1.83 High 0.87-0.[address] [place] [address] [phone] CBC With Manual 05/01/2010 [facility] White Blood 5.7 CUMM 4.8-10.[address] [place] [address] [phone] Red Cell Count 3.29 CUMM Low 4.2-5.4 [...] Neutrophil Count 3.5 Anisocytosis SLIGHT Ovalocytes FEW Laboratory 05/01/2010 [facility] Methylmalonic 0.43 Abnormal < =0.[address] Acid nmol/[place] [address] [phone] CBC 11/07/2009 [facility] White Blood 7.1 CUMM 4.8-10.8 W/Electronic [address] [place] [address] [phone] Red Cell Count 3.43 CUMM Low 4.2-5.4 [...] Eosinophils 0.1 0-0.6 Abs Basophils 0 0-0.2 Iron And Tibc Serum 11/07/2009 [facility] Iron Total 72 g/dL 28[address] [place] [address] [phone] Unsaturated Iron Binding 270 g/dL Total Iron Binding Capacity 342 g/dL 250-450 % Iron Saturation 21 % 15-55 Laboratory test 11/07/2009 [facility] Ferritin 55 NG/ML 11.0- [address] [place] [address] [phone] Vitamin B12 And 11/07/2009 [facility] Vitamin B12 300 pg/mL 180-[address] [place] [address] [phone] Folic Acid 14.1 NG/ML 2-16 Vitamin D 1,25 11/07/2009 [facility] Vitamin D, 1,25 51 pg/mL 18-78 11 And Vitamin D,[address] [place] [address] [phone] Vitamin D,25 11/07/2009 [facility] 25-Hydroxy <4.0 ng/mL () Hydroxy [place]IVE Vitamin [place]2 [place] [address] [phone] 25-Hydroxy Vitamin D3 27 ng/mL () 25-Hydroxy Vitamin D Total 27 ng/mL () 12 CBC With 06/09/2009 [facility] White Blood 7.4 CUMM 4.8-10.8 Electronic Diff [address] [place] [address] [phone] Red Cell Count 3.51 CUMM Low 4.2-5.4 [...] Eosinophils 0.2 0-0.6 Abs Basophils 0 0-0.2 Comp Metabolic Panel 06/09/2009 [facility] Sodium 137 mmol/L 135-[address] [place] [address] [phone] Potassium 4.1 mmol/L 3.5-5.0 Chloride 105 mmol/L 101-111 Co2 (Carbon Dioxide) 28.0 mmol/L 22-32 Anion Gap 4.0 mmol/L 2-11 13 Glucose 111 mg/dL High 70-100 14 BUN 24 mg/dL 6-24 Creatinine 1.00 mg/dL 0.50-1.40 One Over Creatinine 1.00 BUN/Creatinine Ratio 24.0 High 8-20 Calcium 8.9 mg/dL 8.1-9.9 15 Total Protein 6.5 GM/DL 6.2-8.1 Albumin 3.4 GM/DL 3.2-5.2 Globulin 3.1 GM/DL 2-4 Albumin/Globulin Ratio 1.1 1-3 Bilirubin Total 0.6 mg/dL 0.4-1.5 16 Alkaline Phosphatase 89 U/L 30-110 Alt (SGPT) 15 U/L 14-54 Ast (Sgot) 20 U/L 12-42 eGFR Non- 57.0 > 60 eGFR 69.0 > 60 17 Urinalysis W/Microscopic 06/09/2009 [facility] Ua Color YELLOW Yellow [address] [place] [address] [phone] Appearance-Urine CLEAR Clear Specific [place]-Ur 1.022 1.010-1.030 Esterase-Urine TRACE Abnormal Negative Nitrite NEGATIVE Negative Aevgoozdaspt-Ul-CJM NEGATIVE Negative Protein-Urine NEGATIVE Negative PH-Urine 5.5 5-9 Blood-Urine NEGATIVE Negative Ketones-Urine NEGATIVE Negative Bilirubin-Ur NEGATIVE Negative Glucose-Urine NEGATIVE Negative WBC-Urine 0-2 0-5 RBC-Urine 0-2 0-2 Lipid Profile 06/09/2009 [facility] Triglyceride 74 mg/dL 40- 200 (Trig/Chol/HDL) [address] [place] [address] [phone] Cholesterol 172 mg/dL Less Than 200 18 High Density Lipoprotein 48 mg/dL 40-60 19 Cholesterol/HDL Ratio 3.58 AVERAGE 1-4.44 Low Density Lipoprotein 109 mg/dL High Less Than 100 20 Laboratory test 06/09/2009 [facility] TSH 1.24 MIU/ML 0.34- 5.[address] [place] [address] [phone] 1 SEE RESULT BELOW Name: VERONICA BHAT : [address]: David Arevalo MD Acct: [id number] Unit: [id number] AGE: 87 Location: [facility] Re02/21/18 SEX: F Status: DEP REF SPEC: [id number] LACEY: 02/21/18-10[address] [facility] [address]: David Arevalo MD REQ: [id number] RECD: 02/21/18 STATUS: RY CARDENAS DR: Susy Quevedo MD [...] 1302 END OF REPORT DEPARTMENT OF PATHOLOGY, [address] [place] [address] Brendon Nicole M.D. Director [facility] # [id number] 2 Because ethnic data is not always [...] 0.03 ng/mL Not supportive of diagnosis of UT 0.03 - 0.50 ng/mL Indeterminate: suggest serial studies if clinically indicated. Greater than 0.5 ng/mL Consistent with diagnosis of UT 4 CALL RESULTS TO 4591 5 Critical Result K:2.7 Called to [id number] at: 10:42:59 by: Read back by:[id number] Potassium reference range changed effective 01/10/14 6 [...] by the World Health Organization (WHO) in 1982 as a standardized system of reporting PT [...] of vitamin B12 deficiency. Test Performed by: [facility] [address] [place] [address] Doctor'S Assistant: Simba Duarte III, M.D. 11 Test Performed by: [facility] [address] [place] [address] Doctor'S Assistant: Simba Duarte III, M.D. 12 -- REFERENCE VALUE -- 25-HYDROXY D TOTAL (D2+D3) Optimum levels in the normal population are 25-80 Test Performed by: [facility] [address] [place] [address] Doctor'S Assistant: Simba Duarte III, M.D. 13 Anion gap measurement may be of limited value in the presence of any alkalosis, especially in a combined acid base disorder. . 14 Note change in reference range as of 10/30/07. The change was based on recommendations from the [place] [employer]. 15 Please note change in reference range effective 07 . 16 A metabolite of Naproxen, O-desmethylnaproxen, has been shown to interfere with the [place]int[place]-Taylor method for measuring total bilirubin. Samples from patients who have taken Naproxen have shown spurious elevation in total bilirubin levels. 17 Because ethnic data is not always readily [...] 15-29 5 Kidney failure <15 (or dialysis) 18 CHOLESTEROL INTERPRETATION: Desirable: Less than 200 MG/DL Borderline-High Risk: 200-239 MG/DL High-Risk: 240 MG/DL and over 19 HDL INTERPRETATION: Undesirable: High Risk: Less than 40 MG/DL Desirable: Low Risk: Greater than 60 MG/DL 20 LDL INTERPRETATION: Low Risk Optimal Level: LDL Less than 100 MG/DL Near or Above Optimal: LDL 100-129 MG/DL Borderline High Risk: LDL 130-159 MG/DL High Risk: LDL 160-189 MG/DL Very High Risk: LDL Greater than 189 MG/DL Procedures Date Code Description Status 05/06/2018 71008 Open [place] Of Femoral FX,Promimal End,Neck Internal Completed Fixation 05/06/2018 07924 Open TX Of Femoral FX,Promimal End,Neck Internal Completed Fixation 05/06/2018 17170 Open TX Of Femoral FX,Promimal End,Neck Internal Completed Fixation 05/05/2018 57462 ECHO Transthorasic Realtime 2D W Doppler & Color Flow Completed Hosp 04/25/2018 98639 Short Arm Cast Application Completed 02/21/2018 77913191 Colonoscopy Completed 02/21/2018 71189 Colonoscopy Flexible Remove Tumor/Polyp/Lesion Snare Completed Technique 12/27/2017 91636 EKG Tracing & Interpretation Completed 12/25/2017 49467 Anoscopy Completed 06/20/2017 49658 EKG Tracing & Interpretation Completed 05/28/2017 65945 Cardioversion Completed 04/10/2017 50615 EKG Tracing & Interpretation Completed 03/06/2017 65201 Cardioversion Completed 10/23/2016 71549 EKG Tracing & Interpretation Completed 10/17/2016 98122 EKG, Interpretation Only Completed 10/16/2016 94154 EKG, Interpretation Only Completed 10/15/2016 40402 Cath PLMT&NJX L Ventriculog Img S&I Completed 10/15/2016 95762 EKG, Interpretation Only Completed 10/15/2016 71298 Revascularization Acute Total/Subtotal Occlusion Completed 10/14/2016 39516 EKG, Interpretation Only Completed 10/12/2016 41541 Treadmill Interp/Report Only Completed 10/12/2016 32881 Stress Test Supervsn W/Out I/R Completed 10/11/2016 94883 Cardioversion Completed 10/11/2016 85584 Echocardiogram, Limited Study Completed 09/17/2016 82875 Mobile Cardiovascular Telemetry Over 24 HR Up To 30 Completed Days 09/12/2016 24518 EKG Tracing & Interpretation Completed 08/27/2016 81871 ECHO Transthorasic Realtime 2D W Doppler & Color Flow Completed Hosp 08/27/2016 61295 EKG, Interpretation Only Completed 08/27/2016 12953 Cardioversion Completed 08/26/2016 46137 EKG, Interpretation Only Completed 07/05/2016 52961 ECHO Transthorasic Realtime 2D W Doppler & Color Flow Completed Hosp 10/14/2015 83995 EKG Tracing & Interpretation Completed 08/13/2015 90647 EKG, Interpretation Only Completed 08/13/2015 08007 Cardioversion Completed 01/27/2015 19541 EKG Tracing & Interpretation Completed 12/28/2014 07617 EKG, Interpretation Only Completed 12/28/2014 20275 Cardioversion Completed 03/03/2014 20371 EKG Tracing & Interpretation Completed 01/26/2014 95244 EKG, Interpretation Only Completed 01/26/2014 60435 Cardioversion Completed 01/25/2014 73098 Cardioversion Completed 02/20/2013 96576 ECHO Transthoracic, Real-Time 2D With Doppler And Color Completed Flow 05/27/2012 95652 ECHO Transthoracic, Real-Time 2D With Doppler And Color Completed Flow 05/27/2012 20094 ECHO Transthoracic, Real-Time 2D With Doppler And Color Completed Flow 05/23/2012 03164 Holter Monitoring 24 HR New Completed 04/24/2012 42674 EKG Tracing & Interpretation Completed 01/10/2012 13938 RT & lt Cath W/Injx HRT Art&L Ventr Img S&I Completed 01/01/2012 64223 Carotid Doppler,Bilateral Completed 12/26/2011 28308 Stress Test Completed 04/01/2010 39393 Treadmill Interp/Report Only Completed 04/01/2010 02353 Stress Test Supervsn W/Out I/R Completed 04/21/2009 65098 EKG Tracing & Interpretation Completed 04/19/2009 62542827 Colonoscopy Completed 04/04/2009 56108 EKG, Interpretation Only Completed Encounters Type Date Location Provider Dx Diagnosis [facility] S72.012A Unsp intracapsular 9:31a lo Murcia M.D. fracture of left Hospitalists femur, init for clos fx D62 Acute posthemorrhagic anemia I48.91 Unspecified atrial fibrillation I10 Essential (primary) hypertension W19.xxxA Unspecified fall, initial encounter Office Visit 05/12/2018 [place] 449372 Acute 9:30a lo Murcia MD posthemorrhagic Hospitalists anemia R65.10 Sirs of non-infectious origin w/o acute organ dysfunction N17.9 Acute kidney failure, unspecified I48.91 Unspecified atrial fibrillation S72.002A Fracture of unsp part of neck of left femur, init M79.669 Pain in unspecified lower leg I10 Essential (primary) hypertension Z95.5 Presence of coronary angioplasty implant and graft Office Visit 05/11/2018 [place] 449372 Acute 9:30a lo Murcia MD posthemorrhagic Hospitalists anemia R65.10 Sirs of non-infectious origin w/o acute organ dysfunction N17.9 Acute kidney failure, unspecified S72.002A Fracture of unsp part of neck of left femur, init I48.91 Unspecified atrial fibrillation I10 Essential (primary) hypertension Z95.5 Presence of coronary angioplasty implant and graft Office Visit 05/10/2018 [place] 449372 Acute 9:29a lo Murcia MD posthemorrhagic Hospitalists anemia R65.10 Sirs of non-infectious origin w/o acute organ dysfunction N17.9 Acute kidney failure, unspecified I48.91 Unspecified atrial fibrillation S72.002A Fracture of unsp part of neck of left femur, init I10 Essential (primary) hypertension Z95.5 Presence of coronary angioplasty implant and graft Office Visit 05/09/2018 [facility] Carsonbriana Lopez R65.10 Sirs of 9:29a Assoc,lo Ling MD non-infectious Hospitalists origin w/o acute organ dysfunction N17.9 Acute kidney failure, unspecified D62 Acute posthemorrhagic anemia I48.91 Unspecified atrial fibrillation S72.002A Fracture of unsp part of neck of left femur, init I10 Essential (primary) hypertension Z95.5 Presence of coronary angioplasty implant and graft Office Visit 05/08/2018 [facility] R65.10 Sirs of 9:29a Assoclo D.O. non-infectious Hospitalists origin w/o acute organ dysfunction N17.9 Acute kidney failure, unspecified D62 Acute posthemorrhagic anemia S72.002A Fracture of unsp part of neck of left femur, init I48.91 Unspecified atrial fibrillation I10 Essential (primary) hypertension Z95.5 Presence of coronary angioplasty implant and graft Office Visit 05/07/2018 [facility] R65.10 Sirs of 9:28a Asslo blunt D.O. non-infectious Hospitalists origin w/o acute organ dysfunction N17.9 Acute kidney failure, unspecified S72.002A Fracture of unsp part of neck of left femur, init I48.91 Unspecified atrial fibrillation I10 Essential (primary) hypertension Z95.5 Presence of coronary angioplasty implant and graft Office Visit 05/06/2018 [facility] Rubina R65.11 Sirs of 9:26a Assoclo M.D. non-infectious Hospitalists origin w acute organ dysfunction N17.9 Acute kidney failure, unspecified S72.002A Fracture of unsp part of neck of left femur, init I48.91 Unspecified atrial fibrillation Z95.5 Presence of coronary angioplasty implant and graft Office Visit 05/05/2018 9:26a [facility] Priti S72.002A Fracture of Assoc,pc Krishna, DO unsp part of Hospitalists neck of left femur, init R65.10 Sirs of non-infectious origin w/o acute organ dysfunction N17.9 Acute kidney failure, unspecified I35.0 Nonrheumatic aortic (valve) stenosis I48.91 Unspecified atrial fibrillation Z95.5 Presence of coronary angioplasty implant and graft Office Visit 05/04/2018 [facility] Charlette S72.012A Unsp intracapsular 9:23a Assoc,pc Rooth, DO fracture of left Hospitalists femur, init for clos fx I48.0 Paroxysmal atrial fibrillation W19.xxxA Unspecified fall, initial encounter Office 05/04/2018 [facility]ne S72.002A Fracture of Visit 10:44a Of Tal Dailey M.D. 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 hemorrhoids Office Visit 06/20/2017 10:45a [facility] Talib Medrnao I48.0 Paroxysmal atrial Of Nathaniel Cisneros M.D. fibrillation I25.10 Athscl heart disease of [place] coronary artery w/o ang pctrs Office Visit 04/10/2017 10:30a [facility] Talib Medrano I25.10 Aths[facility] heart Of Nathaniel Cisneros M.D. disease of [place] coronary artery w/o ang pctrs I48.0 Paroxysmal atrial fibrillation Office Visit 12/05/2016 10:30a [facility] Talib Medrano I25.10 Athscl heart Of Nathaniel Cisneros M.D. disease of [place] coronary artery w/o ang pctrs I10 Essential (primary) hypertension I48.0 Paroxysmal atrial fibrillation Z95.2 Presence of prosthetic heart valve Office Visit 10/23/2016 2:15p [facility] Talib Medrano I25.10 Athscl heart Of [employer] AT [facility] Chuck Cisneros. 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 fibrillation Hospitalists E78.5 Hyperlipidemia, unspecified I25.10 Athscl heart disease of [place] coronary artery w/o ang pctrs I10 Essential (primary) hypertension Office Visit 10/16/2016 9:58a [facility] Nemo Harris I21.4 Non-St elevation Of [employer] [facility] [facility] MD Sourav, (Nstemi) FACC, FSCAI myocardial infarction I25.10 Athscl heart disease of [place] coronary artery w/o ang pctrs Office Visit 10/16/2016 [facility] Galo I48.91 Unspecified atrial 8:25a lo Murcia M.D. fibrillation Hospitalists I25.10 Athscl heart disease of [place] coronary artery w/o ang pctrs E78.5 Hyperlipidemia, unspecified I10 Essential (primary) hypertension Office Visit 10/16/2016 2:56p [facility] Harvey Saldana I49.5 Sick sinus Sandoval Richards syndrome I25.10 Athscl heart disease of [place] coronary artery w/o ang pctrs I10 Essential (primary) hypertension Office Visit 10/15/2016 [facility] Galo I48.91 Unspecified atrial 8:25a lo Murcia M.D. fibrillation Hospitalists I25.10 Athscl heart disease of [place] coronary artery w/o ang pctrs E78.5 Hyperlipidemia, unspecified I10 Essential (primary) hypertension Office Visit 10/14/2016 2:53p [facility] Harvey Saldana I48.0 Paroxysmal atrial Sandoval Richards fibrillation I25.10 Athscl heart disease of [place] coronary artery w/o ang pctrs I21.4 Non-St elevation (Nstemi) myocardial infarction I49.5 Sick sinus syndrome Office Visit 10/14/2016 [facility] Galo I48.91 Unspecified atrial 8:24a Assoc,lo Cowan M.D. fibrillation Hospitalists I25.10 Athscl heart disease of [place] coronary artery w/o ang pctrs E78.5 Hyperlipidemia, unspecified Office Visit 10/13/2016 2:52p [facility] Harvey FCasey I48.0 Paroxysmal atrial Mauser, M.D. fibrillation I21.4 Non-St elevation (Nstemi) myocardial infarction I49.5 Sick sinus syndrome Office Visit 10/13/2016 8:24a [facility] Patricia June I48.91 Unspecified atrial Assoc,lo N.PCasey fibrillation Hospitalists I25.10 Athscl heart disease of [place] coronary artery w/o ang pctrs E78.5 Hyperlipidemia, unspecified I10 Essential (primary) hypertension Office Visit 10/12/2016 2:48p [facility] Harvey Saldana I48.0 Paroxysmal atrial Mauser, M.D. fibrillation I49.5 Sick sinus syndrome I21.4 Non-St elevation (Nstemi) myocardial infarction R94.31 Abnormal electrocardiogram [ECG] [EKG] [facility] atrial 8:23a Assoc,lo Ewing D.O. fibrillation Hospitalists I25.10 Athscl heart disease of [place] coronary artery w/o ang pctrs E78.5 Hyperlipidemia, unspecified I10 Essential (primary) hypertension Office Visit 10/11/2016 9:56a [facility] Harvey F. I10 Essential (primary) Mauser, M.D. hypertension I48.0 Paroxysmal atrial fibrillation I49.5 Sick sinus syndrome Z95.2 Presence of prosthetic heart valve R42 Dizziness and giddiness Office Visit 10/11/2016 2:54p [facility] Harvey FCasey I48.0 Paroxysmal atrial Mauser, M.D. fibrillation I49.5 Sick sinus syndrome Z95.2 Presence of prosthetic heart valve I10 Essential (primary) hypertension [facility] Un[facility] 8:22a Assoc,pc Mikey N.P. atrial Hospitalists fibrillation E78.5 Hyperlipidemia, unspecified I25.10 Athscl heart disease of [place] coronary artery w/o ang pctrs I10 Essential (primary) hypertension Office Visit 09/12/2016 8:30a [facility] Talib Medrano I48.0 Paroxysmal atrial Of Nathaniel Cisneros M.D. fibrillation I10 Essential (primary) hypertension Z95.2 Presence of prosthetic heart valve Office 08/27/2016 [facility] Kushal I48.91 Unspecified Visit 2:01p Assoc,pc Kylah PA atrial Hospitalists fibrillation R74.8 Abnormal levels of other serum enzymes Z95.2 Presence of prosthetic heart valve I10 Essential (primary) hypertension Office Visit 08/26/2016 10:02a [facility] Harvey Saldana I48.0 Paroxysmal atrial Sandoval Richards fibrillation I10 Essential (primary) hypertension R79.89 Other specified abnormal findings of blood chemistry Office Visit 08/26/2016 2:00p [facility] Patricia June, I48.91 Unspecified atrial Assoc,pc N.PCasey fibrillation Hospitalists R74.8 Abnormal levels of other serum enzymes Z95.2 Presence of prosthetic heart valve I10 Essential (primary) hypertension Office Visit 07/04/2016 2:37p [facility] Brent Lincoln, R55 Syncope and Assoc,lo Nick collapse Hospitalists I48.91 Unspecified atrial fibrillation I25.10 Athscl heart disease of [place] coronary artery w/o ang pctrs I10 Essential (primary) hypertension Office Visit 02/08/2016 1:30p [facility] Patito, M25.562 Pain in left Of [facility]. M.D. knee M17.0 Bilateral primary osteoarthritis of knee Office Visit 10/14/2015 11:45a [facility] Talib D. I48.1 Persistent atrial Of Nathaniel Cisneros M.D. 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 I48.1 Persistent atrial Of [employer] Brand, M.D. fibrillation Z95.2 Presence of prosthetic heart valve Office Visit 01/27/2015 12:15p [facility] Talib D. I48.0 Paroxysmal atrial Of Nathaniel Cisneros M.D. fibrillation Z95.2 Presence of prosthetic heart valve R94.31 Abnormal electrocardiogram [ECG] [EKG] Office Visit 12/29/2014 3:53p [facility] Nicole Hohn, R42 Dizziness and Assoc,pc Sandoval bravo Hospitalists I48.91 Unspecified atrial fibrillation E78.2 Mixed hyperlipidemia I10 Essential (primary) hypertension Office Visit 12/28/2014 3:52p [facility] Leonardo Mikey, R42 Dizziness and Assoc,pc Bebo bravo Hospitalists I48.91 Unspecified atrial fibrillation I10 Essential (primary) hypertension E78.2 Mixed hyperlipidemia Office Visit 08/13/2014 1:30p [facility] Talib D. 427.31 Atrial Of Nathaniel Sandoval Cisneros Fibrillation 424.1 Aortic Valve Disorder Office Visit 03/03/2014 9:45a [facility] Talib D. 427.31 Atrial Of Nathaniel CisnerosSandoval Fibrillation 424.1 Aortic Valve Disorder Office Visit 01/26/2014 11:20a [facility] Talib D. 427.31 Atrial Of Nathaniel Blayne M.DCasey Fibrillation Office Visit 01/22/2014 2:15p [facility] Talib D. 424.1 Aortic Valve Of [employer] Sandoval Cisneros Disorder 427.31 Atrial Fibrillation 401.9 Hypertension Unspec Office Visit 03/19/2013 10:00a [facility] Talib D. 424.1 Aortic Valve Of [employer] Bess Cisneros.Marcela Disorder 427.31 Atrial Fibrillation 427.9 Cardiac Dysrhythmia Unspec Office Visit 11/06/2012 1:00p [facility] Talib Marcela 424.1 Aortic Valve Of [employer] Bess Cisneros.Marcela Disorder 427.31 Atrial Fibrillation 401.9 Hypertension Unspec Office Visit 05/29/2012 1:45p [facility] Talib D. 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 794.31 Electrocardiogram Visit 9:17a [facility] Sandoval Lees (ECG) (EKG) Abnormal 427.31 Atrial Fibrillation 424.1 Aortic Valve Disorder 401.1 Hypertension Benign Office Visit 04/01/2010 9:17a [facility] Cash SCasey 786.50 Pain Chest Sandoval Lees Unspec 427.31 Atrial Fibrillation 424.1 Aortic Valve Disorder 401.1 Hypertension Benign Office Visit 07/22/2009 2:00p DO Not Use [employer] Sae, 401.1 Hypertension AT Becky Jain M.D. 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 Plan of Treatment Future Appointment(s):07/03/2018 10:15 am - Aaron Johnson MD [facility]05/30/2018 11:30 am - Ashley Martinez N.P. at [facility]05/27/2018 - Aaron Johnson, [id number] Unspecified intracapsular fracture of left femur, subsequentFollow up:Follow up: 4 [id number] Other intraarticular fracture of lower end of right radius,
--- OUTSIDE RECORDS SUMMARY | 2018-05-30 02:18 | XMS REPORT | Continuity of Care Document ---
:1930 External Reference #:[id number] Author Name Lita Acevedo Care Team Providers Name Role Phone Susy Quevedo MD Primary Care Physician Unavailable Payers Date Identification Numbers Payment Provider Subscriber Policy Number: [id number] [employer] Elizabeth Churey Group Number: [id number] [address] PayID: [id number] [place] [address] Effective: 1995 Policy Number: [id number] Medicare Veronica Bhat Expires: 2017 PayID: [id number] [address] [place] [address] Advance Directives Description No Information Available Problems [...] 17.5-3.13 1unit take David Harris Prep Kit /2017 -1.6GM/17 s according to Mickey, - 7ML your 04/24 physician's /2019 instructions the day before your procedure. split the dose as directed. Magnesium 01/10 Hx Solution 1.745GM/3 296ml Drink the Peter Inessa. Citrate 0ML entire bottle Mickey - after [...] c, - Radomir, 05/27 M.D. Niaspan ER 00/00 Hx Tablets 500mg 90tab 1 tablet po Stevanovi /0000 ER s qday c, - Radomir, 10/12 M.D. Asa / Hx 325mg 100un 1 po qd Stevanovi [...] Result H/L Range Note Laboratory test 02/21/2018 [facility] Surgical SEE RESULT [address] [place] [address] [phone] Laboratory test 12/28/2014 [facility] Inr/Protime 3.66 High 0.78-1.[address] [place] [address] [phone] CBC Auto Diff 12/28/2014 [facility] White Blood 4.9 10^3/uL N 4.8-10.[address] [place] [address] [phone] Red Blood Count 3.83 10^6/uL Low 4.0-5.4 [...] % 0 N Comp Metabolic Panel 12/28/2014 [facility] Sodium 133 mmol/L N 133-145 [address] [place] [address] [phone] Potassium 3.6 mmol/L N 3.5-5.0 Chloride 98 [...] 40.1 N >60 2 Laboratory test 12/28/2014 [facility] Magnesium 1.8 mg/dL Low 1.9-2.7 finding [address] [place] [address] [phone] Troponin-I (TnI) 0.00 ng/mL N <0.03 3 TSH (Thyroid Stim Horm) 2.86 ?IU/mL N 0.34-5.60 Laboratory test 01/25/2014 [facility] TSH (Thyroid 2.83 IU/mL N 0.34-5.60 finding [address] [place] [address] [phone]) [phone] CBC No Diff 01/25/2014 [facility] White Blood 5.3 N 4.8-10.[address] Count 10^3/[place] [address] [phone] Red Blood Count 3.37 10^6/uL Low 4.0-5.4 Hemoglobin 10.5 g/dL Low 12.0-16.0 Hematocrit 33 % Low 35-47 Mean Corpuscular Volume 97 fL N 80-97 Mean Corpuscular Hemoglobin 31 pg N 27-31 Mean Corpuscular HGB Conc 32 g/dL N 31-36 Red Cell Distribution Width 15 % N 10.5-15 Platelet Count 131 10^3/uL Low 150-450 Mean Platelet Volume 7 um3 Low 7.4-10.4 Inr/Protime 01/25/2014 [facility] Inr 2.32 High 0.85-1.06 [address] [place] [address] [phone] Basic Metabolic 01/25/2014 [facility] Sodium 138 mmol/L N 133- [address] [place] [address] [phone] Potassium 2.7 mmol/L Low 3.5-5.0 5 Chloride [...] 37.4 N >60 6 Laboratory test 12/07/2013 [facility] Inr 1.89 High 0.85-1.06 finding [address] [place] [address] [phone] Laboratory test 08/24/2013 [facility] Inr 1.99 High 0.85-1.[address] [place] [phone] Laboratory test 07/27/2013 [facility] Inr 1.96 High 0.85-1.[address] [place] [address] [phone] Laboratory test 07/06/2013 [facility] Inr 1.82 High 0.85-1.[address] [place] [address] [phone] Laboratory test 06/08/2013 [facility] Inr 3.57 High 0.85-1.06 [place] [address] [phone] Laboratory test 05/25/2013 [facility] Inr 1.63 High 0.85-1.[address] [place] [phone] Laboratory test 04/27/2013 [facility] Inr 2.48 High 0.85-1.[address] [place] [address] [phone] Laboratory test 03/30/2013 [facility] Inr 2.02 High 0.85-1.[address] [place] [address] [phone] Inr/Protime 03/02/2013 Inr 2.05 High 0.85-1.06 7 Laboratory test 02/02/2013 [facility] Inr 2.31 High 0.85-1.06 8 [place] [address] [phone] Laboratory test 01/05/2013 [facility] Inr 2.30 High 0.87-0[place]97 [place] [address] [phone] Laboratory test 12/08/2012 [facility] Inr 2.67 High 0.87-0.[address] [place] [address] [phone] Laboratory test 11/11/2012 [facility] Inr 2.42 High 0.87-0.[address] [place] [address] [phone] Laboratory test 10/20/2012 [facility] Inr 2.22 High 0.87-0.[address] [place] [address] [phone] Laboratory test 10/06/2012 [facility] Inr 1.82 High 0.87-0.[address] [place] [address] [phone] Laboratory test 09/22/2012 [facility] Inr 1.69 High 0.87-0.[address] [place] [address] [phone] Laboratory test 08/25/2012 [facility] Inr 1.89 High 0.87-0.[address] [place] [address] [phone] Laboratory test 07/28/2012 [facility] Inr 2.25 High 0.87-0.[address] [place] [address] [phone] Laboratory test 06/30/2012 [facility] Inr 2.30 High 0.87-0.[address] [place] [address] [phone] Laboratory test 06/09/2012 [facility] Inr 1.83 High 0.87-0.[address] [place] [address] [phone] CBC With Manual 05/01/2010 [facility] White Blood 5.7 CUMM 4.8-10.[address] [place] [address] [phone] Red Cell Count 3.29 CUMM Low 4.2-5.4 [...] 3.5 Anisocytosis SLIGHT Ovalocytes FEW Laboratory 05/01/2010 [facility] Methylmalonic 0.43 Abnormal < =0.40 [address] Acid nmol/[place] [address] [phone] CBC 11/07/2009 [facility] White Blood 7.1 CUMM 4.8-10.8 W/Electronic [address] [place] [address] [phone] Red Cell Count 3.43 CUMM Low 4.2-5.4 [...] 0 0-0.2 Iron And Tibc Serum 11/07/2009 [facility] Iron Total 72 g/dL 28[address] [place] [address] [phone] Unsaturated Iron Binding 270 g/dL Total Iron Binding Capacity 342 g/dL 250-450 % Iron Saturation 21 % 15-55 Laboratory test 11/07/2009 [facility] Ferritin 55 NG/ML 11.0- [address] [place] [address] [phone] Vitamin B12 And 11/07/2009 [facility] Vitamin B12 300 pg/mL 180-[address] [place] [address] [phone] Folic Acid 14.1 NG/ML 2-16 Vitamin D 1,25 11/07/2009 [facility] Vitamin D, 1,25 51 pg/mL 18-78 11 And Vitamin D,[address] [place] [address] [phone] Vitamin D,25 11/07/2009 [facility] 25-Hydroxy <4.0 ng/mL () Hydroxy [place] Vitamin [place]2 [place] [address] [phone] 25-Hydroxy Vitamin D3 27 ng/mL () 25-Hydroxy Vitamin D Total 27 ng/mL () 12 CBC With 06/09/2009 [facility] White Blood 7.4 CUMM 4.8-10.8 Electronic Diff [address] [place] [address] [phone] Red Cell Count 3.51 CUMM Low 4.2-5.4 [...] Basophils 0 0-0.2 Comp Metabolic Panel 06/09/2009 [facility] Sodium 137 mmol/L 135-[address] [place] [address] [phone] Potassium 4.1 mmol/L 3.5-5.0 Chloride 105 mmol/L [...] 69.0 > 60 17 Urinalysis W/Microscopic 06/09/2009 [facility] Ua Color YELLOW Yellow [address] [place] [address] [phone] Appearance-Urine CLEAR Clear Specific [place]-Ur 1.022 1.010-1.030 Esterase-Urine TRACE Abnormal Negative Nitrite NEGATIVE Negative Nzwezaitmmtr-Nn-NVF NEGATIVE Negative Protein-Urine NEGATIVE Negative PH-Urine 5.5 5-9 Blood-Urine NEGATIVE Negative Ketones-Urine NEGATIVE Negative Bilirubin-Ur NEGATIVE Negative Glucose-Urine NEGATIVE Negative WBC-Urine 0-2 0-5 RBC-Urine 0-2 0-2 Lipid Profile 06/09/2009 [facility] Triglyceride 74 mg/dL 40- 200 (Trig/Chol/HDL) [address] [place] [address] [phone] Cholesterol 172 mg/dL Less Than 200 18 High Density Lipoprotein 48 mg/dL 40-60 19 Cholesterol/HDL Ratio 3.58 AVERAGE 1-4.44 Low Density Lipoprotein 109 mg/dL High Less Than 100 20 Laboratory test 06/09/2009 [facility] TSH 1.24 MIU/ML 0.34- 5.[address] [place] [address] [phone] 1 SEE RESULT BELOW Name: VERONICA BHAT : [address]: David Arevalo MD Acct: [id number] Unit: [id number] AGE: 87 Location: [facility] Re02/21/18 SEX: F Status: DEP REF SPEC: [id number] LACEY: 02/21/[address] [facility] [address]: David Arevalo MD REQ: [id number] RECD: 02/21/18 STATUS: RY CARDENAS DR: Susy Queevdo MD PC _ ORDERED: LEVEL 4 FINAL [...] 1302 END OF REPORT DEPARTMENT OF PATHOLOGY, [address] [place] [address] Brendon Nicole M.D. Director [facility] # [id number] 2 Because ethnic data is not always [...] 0.03 ng/mL Not supportive of diagnosis of DC 0.03 - 0.50 ng/mL Indeterminate: suggest serial studies if clinically indicated. Greater than 0.5 ng/mL Consistent with diagnosis of DC 4 CALL RESULTS TO 4591 5 Critical Result K:2.7 Called to [id number] at: 10:42:59 by: Read back by:[id number] Potassium reference range changed effective 01/10/14 6 [...] of vitamin B12 deficiency. Test Performed by: [facility] Dpt of Lab Med and Pathology [address] [place] [address] Light Out Examiner: Simba Duarte III, M.D. 11 Test Performed by: [facility] Dpt of Lab Med and Pathology [address] [place] [address] Light Out Examiner: Simba Duarte III, M.D. 12 -- REFERENCE VALUE -- 25-HYDROXY D TOTAL (D2+D3) Optimum levels in the normal population are 25-80 Test Performed by: [facility] Dpt of Lab Med and Pathology [address] [place] [address] Light Out Examiner: Simba Duarte III, M.D. 13 Anion gap measurement may be of limited value in the presence of any alkalosis, especially in a combined acid base disorder. . 14 Note change in reference range as of 10/30/07. The change was based on recommendations from the [place] [employer]. 15 Please note change in [...] MG/DL Procedures Date Code Description Status 05/06/2018 52106 Open TX Of Femoral FX,Promimal End,Neck Internal Completed Fixation 05/06/2018 34790 Open TX Of Femoral FX,Promimal End,Neck Internal Completed Fixation 05/06/2018 61097 Open TX Of Femoral FX,Promimal End,Neck Internal Completed Fixation 05/05/2018 11041 ECHO Transthorasic Realtime 2D W Doppler & Color Flow Completed Hosp 04/25/2018 39501 Short Arm Cast Application Completed 02/21/2018 [id number] Colonoscopy Completed 02/21/2018 49324 Colonoscopy Flexible Remove Tumor/Polyp/Lesion Snare Completed Technique 12/27/2017 93627 EKG Tracing & Interpretation Completed 12/25/2017 14837 Anoscopy Completed 06/20/2017 59612 EKG Tracing & Interpretation Completed 05/28/2017 45727 Cardioversion Completed 04/10/2017 89525 EKG Tracing & Interpretation Completed 03/06/2017 62052 Cardioversion Completed 10/23/2016 63335 EKG Tracing & Interpretation Completed 10/17/2016 88839 EKG, Interpretation Only Completed 10/16/2016 04928 EKG, Interpretation Only Completed 10/15/2016 57648 Cath PLMT&NJX L Ventriculog Img S&I Completed 10/15/2016 28718 EKG, Interpretation Only Completed 10/15/2016 83076 Revascularization Acute Total/Subtotal Occlusion Completed 10/14/2016 35009 EKG, Interpretation Only Completed 10/12/2016 11112 Treadmill Interp/Report Only Completed 10/12/2016 90006 Stress Test Supervsn W/Out I/R Completed 10/11/2016 36119 Cardioversion Completed 10/11/2016 89052 Echocardiogram, Limited Study Completed 09/17/2016 23077 Mobile Cardiovascular Telemetry Over 24 HR Up To 30 Completed Days 09/12/2016 23174 EKG Tracing & Interpretation Completed 08/27/2016 72045 ECHO Transthorasic Realtime 2D W Doppler & Color Flow Completed Hosp 08/27/2016 03550 EKG, Interpretation Only Completed 08/27/2016 40041 Cardioversion Completed 08/26/2016 06201 EKG, Interpretation Only Completed 07/05/2016 66478 ECHO Transthorasic Realtime 2D W Doppler & Color Flow Completed Hosp 10/14/2015 69700 EKG Tracing & Interpretation Completed 08/13/2015 05203 EKG, Interpretation Only Completed 08/13/2015 49663 Cardioversion Completed 01/27/2015 22645 EKG Tracing & Interpretation Completed 12/28/2014 71044 EKG, Interpretation Only Completed 12/28/2014 26189 Cardioversion Completed 03/03/2014 31004 EKG Tracing & Interpretation Completed 01/26/2014 71364 EKG, Interpretation Only Completed 01/26/2014 97826 Cardioversion Completed 01/25/2014 99252 Cardioversion Completed 02/20/2013 75541 ECHO Transthoracic, Real-Time 2D With Doppler And Color Completed Flow 05/27/2012 42998 ECHO Transthoracic, Real-Time 2D With Doppler And Color Completed Flow 05/27/2012 61313 ECHO Transthoracic, Real-Time 2D With Doppler And Color Completed Flow 05/23/2012 15293 Holter Monitoring 24 HR New Completed 04/24/2012 17878 EKG Tracing & Interpretation Completed 01/10/2012 23357 RT & lt Cath W/Injx HRT Art&L Ventr Img S&I Completed 01/01/2012 93150 Carotid Doppler,Bilateral Completed 12/26/2011 99489 Stress Test Completed 04/01/2010 33030 Treadmill Interp/Report Only Completed 04/01/2010 55261 Stress Test Supervsn W/Out I/R Completed 04/21/2009 84185 EKG Tracing & Interpretation Completed 04/19/2009 63861225 Colonoscopy Completed 04/04/2009 27825 EKG, Interpretation Only Completed Encounters Type Date Location Provider Dx Diagnosis [facility] S72.012A Unsp intracapsular 9:31a lo Murcia M.D. fracture of left Hospitalists femur, init for clos fx D62 Acute posthemorrhagic anemia I48.91 Unspecified atrial fibrillation I10 Essential (primary) hypertension W19.xxxA Unspecified fall, initial encounter Office Visit 05/12/2018 [place] 097092 Acute 9:30a lo Murcia MD posthemorrhagic Hospitalists anemia R65.10 Sirs of non-infectious origin w/o acute organ dysfunction N17.9 Acute kidney failure, unspecified I48.91 Unspecified atrial fibrillation S72.002A Fracture of unsp part of neck of left femur, init M79.669 Pain in unspecified lower leg I10 Essential (primary) hypertension Z95.5 Presence of coronary angioplasty implant and graft Office Visit 05/11/2018 [place] 097092 Acute 9:30a lo Murcia MD posthemorrhagic Hospitalists anemia R65.10 Sirs of non-infectious origin w/o acute organ dysfunction N17.9 Acute kidney failure, unspecified S72.002A Fracture of unsp part of neck of left femur, init I48.91 Unspecified atrial fibrillation I10 Essential (primary) hypertension Z95.5 Presence of coronary angioplasty implant and graft Office Visit 05/10/2018 [place] 097092 Acute 9:29a lo Murcia MD posthemorrhagic Hospitalists anemia R65.10 Sirs of non-infectious origin w/o acute organ dysfunction N17.9 Acute kidney failure, unspecified I48.91 Unspecified atrial fibrillation S72.002A Fracture of unsp part of neck of left femur, init I10 Essential (primary) hypertension Z95.5 Presence of coronary angioplasty implant and graft Office Visit 05/09/2018 [facility] Carsonbriana Lopez R65.10 Sirs of 9:29a Assoc,lo Ling MD non-infectious Hospitalists origin w/o acute organ dysfunction N17.9 Acute kidney failure, unspecified D62 Acute posthemorrhagic anemia I48.91 Unspecified atrial fibrillation S72.002A Fracture of unsp part of neck of left femur, init I10 Essential (primary) hypertension Z95.5 Presence of coronary angioplasty implant and graft Office Visit 05/08/2018 [facility] R65.10 Sirs of 9:29a Assoclo D.O. non-infectious Hospitalists origin w/o acute organ dysfunction N17.9 Acute kidney failure, unspecified D62 Acute posthemorrhagic anemia S72.002A Fracture of unsp part of neck of left femur, init I48.91 Unspecified atrial fibrillation I10 Essential (primary) hypertension Z95.5 Presence of coronary angioplasty implant and graft Office Visit 05/07/2018 [facility] R65.10 Sirs of 9:28a Asslo blunt D.O. non-infectious Hospitalists origin w/o acute organ dysfunction N17.9 Acute kidney failure, unspecified S72.002A Fracture of unsp part of neck of left femur, init I48.91 Unspecified atrial fibrillation I10 Essential (primary) hypertension Z95.5 Presence of coronary angioplasty implant and graft Office Visit 05/06/2018 [facility] Rubina R65.11 Sirs of 9:26a Assoclo M.D. non-infectious Hospitalists origin w acute organ dysfunction N17.9 Acute kidney failure, unspecified S72.002A Fracture of unsp part of neck of left femur, init I48.91 Unspecified atrial fibrillation Z95.5 Presence of coronary angioplasty implant and graft Office Visit 05/05/2018 9:26a [facility] Priti S72.002A Fracture of Assoc,pc Krishna, DO unsp part of Hospitalists neck of left femur, init R65.10 Sirs of non-infectious origin w/o acute organ dysfunction N17.9 Acute kidney failure, unspecified I35.0 Nonrheumatic aortic (valve) stenosis I48.91 Unspecified atrial fibrillation Z95.5 Presence of coronary angioplasty implant and graft Office Visit 05/04/2018 [facility] Charlette S72.012A Unsp intracapsular 9:23a Assoc,pc Rooth, DO fracture of left Hospitalists femur, init for clos fx I48.0 Paroxysmal atrial fibrillation W19.xxxA Unspecified fall, initial encounter Office 05/04/2018 [facility] S72.002A Fracture of Visit 10:44a Of Tal Dailey M.D. unsp part of neck of left femur, init Office 04/25/2018 [facility] [place] S52.514A Nondisp fx of Visit 10:30a Of Technical Services Specialist AT Tyson Montez MD right radial styloid process, init for clos fx Office 01/09/2018 [facility] Dinora Venegas, K64.0 First degree Visit 10:00a [employer] hemorrhoids K62.5 Hemorrhage of anus and rectum Office Visit 12/27/2017 10:30a [facility] Talib Medrano I48.0 Paroxysmal atrial Of Nathaniel Cisneros M.D. 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 hemorrhoids Office Visit 06/20/2017 10:45a [facility] Talib Medrano I48.0 Paroxysmal atrial Of Nathaniel Cisneros M.D. 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 disease of [facility] coronary artery w/o ang pctrs I10 Essential (primary) hypertension I48.0 Paroxysmal atrial fibrillation Z95.2 Presence of prosthetic heart valve Office Visit 10/23/2016 2:15p [facility] Talib Medrano I25.10 Athscl heart Of Technical Services Specialist AT [facility] [place] Chuck Cisneros. 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 Harvey Saldana I48.0 Paroxysmal atrial Mauser, M.D. 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 Harvey Saldana I48.0 Paroxysmal atrial Mauser, M.D. fibrillation I49.5 Sick sinus syndrome I21.4 Non-St elevation (Nstemi) myocardial infarction R94.31 Abnormal electrocardiogram [ECG] [EKG] Office Visit 10/12/2016 [facility] I48.91 Unspecified atrial 8:23a Assoc,lo Ewing D.O. 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 Harvey FCasey I10 Essential (primary) Mauser, M.D. hypertension I48.0 Paroxysmal atrial fibrillation I49.5 Sick sinus syndrome Z95.2 Presence of prosthetic heart valve R42 Dizziness and giddiness Office Visit 10/11/2016 2:54p [facility] Harvey FCasey I48.0 Paroxysmal atrial Mauser, M.D. fibrillation I49.5 Sick sinus syndrome Z95.2 Presence of prosthetic heart valve I10 Essential (primary) hypertension [facility] 8:22a Assoc,pc Mikey N.P. 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 fibrillation I10 Essential (primary) hypertension Z95.2 Presence of prosthetic heart valve Office 08/27/2016 [facility] Kushal I48.91 Unspecified Visit 2:01p Assoc,pc Kylah PA atrial Hospitalists fibrillation R74.8 Abnormal levels of other serum enzymes Z95.2 Presence of prosthetic heart valve I10 Essential (primary) hypertension Office Visit 08/26/2016 10:02a [facility] Harvey Saldana I48.0 Paroxysmal atrial Sandoval Richards fibrillation I10 Essential (primary) hypertension R79.89 Other specified abnormal findings of blood chemistry Office Visit 08/26/2016 2:00p [facility] Patricia June, I48.91 Unspecified atrial Assoc,pc N.PCasey fibrillation Hospitalists R74.8 Abnormal levels of other serum enzymes Z95.2 Presence of prosthetic heart valve I10 Essential (primary) hypertension Office Visit 07/04/2016 2:37p [facility] Brent Lincoln, R55 Syncope and Assoc,lo Nick collapse Hospitalists I48.91 Unspecified atrial fibrillation I25.10 Athscl heart disease of [place] coronary artery w/o ang pctrs I10 Essential (primary) hypertension Office Visit 02/08/2016 1:30p [facility] Hector Patito, M25.562 Pain in left Of [facility]. M.D. knee M17.0 Bilateral primary osteoarthritis of knee Office Visit 10/14/2015 11:45a [facility] Talib D. I48.1 Persistent atrial Of Nathaniel Cisneros M.D. 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 I48.1 Persistent atrial Of Technical Services Specialist Brand, M.D. fibrillation Z95.2 Presence of prosthetic heart valve Office Visit 01/27/2015 12:15p [facility] Talib D. I48.0 Paroxysmal atrial Of Nathaniel CisnreosAzeemD. fibrillation Z95.2 Presence of prosthetic heart valve R94.31 Abnormal electrocardiogram [ECG] [EKG] Office Visit 12/29/2014 3:53p [facility] Nicole Bowlinghn, R42 Dizziness and Assoc,pc Sandoval bravo Hospitalists I48.91 Unspecified atrial fibrillation E78.2 Mixed hyperlipidemia I10 Essential (primary) hypertension Office Visit 12/28/2014 3:52p [facility] Leonardo Mikey, R42 Dizziness and Assoc,pc Bebo bravo Hospitalists I48.91 Unspecified atrial fibrillation I10 Essential (primary) hypertension E78.2 Mixed hyperlipidemia Office Visit 08/13/2014 1:30p [facility] Talib D. 427.31 Atrial Of Nathaniel CisnerosSandoval Fibrillation 424.1 Aortic Valve Disorder Office Visit 03/03/2014 9:45a [facility] Talib D. 427.31 Atrial Of Nathaniel CisnerosSandoval Fibrillation 424.1 Aortic Valve Disorder Office Visit 01/26/2014 11:20a [facility] Talib D. 427.31 Atrial Of Nathaniel Bess Cisneros.Marcela Fibrillation Office Visit 01/22/2014 2:15p [facility] Talib Marcela 424.1 Aortic Valve Of Nathaniel Sandoval Cisneros Disorder 427.31 Atrial Fibrillation 401.9 Hypertension Unspec Office Visit 03/19/2013 10:00a [facility] Talib D. 424.1 Aortic Valve Of Technical Services Specialist Sandoval Cisneros Disorder 427.31 Atrial Fibrillation 427.9 Cardiac Dysrhythmia Unspec Office Visit 11/06/2012 1:00p [facility] Talib Marcela 424.1 Aortic Valve Of Technical Services Specialist Sandoval Cisneros Disorder 427.31 Atrial Fibrillation 401.9 Hypertension Unspec Office Visit 05/29/2012 1:45p [facility] Talib D. 424.1 Aortic Valve Of Technical Services Specialist Sandoval Cisneros Disorder 427.31 Atrial Fibrillation Office Visit 04/24/2012 12:00p [facility] Talib D. 424.1 Aortic Valve Of Technical Services Specialist Sandoval Cisneros Disorder 427.31 Atrial Fibrillation Office Visit 01/23/2012 11:30a [facility] Talib Medrano 786.09 Dyspnea & Cardiology Of Sandoval Cisneros Respiratory [facility] Abnormalities Other 424.1 Aortic Valve Disorder Office Visit 01/09/2012 8:00a [facility] Talib Medrano 786.50 Pain Chest Of Nathaniel Cisneros M.D. Unspec 424.1 Aortic Valve Disorder Office 04/02/2010 Andes Qutaybkassidy S. 794.31 Electrocardiogram Visit 9:17a [facility] Sandoval Lees (ECG) (EKG) Abnormal 427.31 Atrial Fibrillation 424.1 Aortic Valve Disorder 401.1 Hypertension Benign Office Visit 04/01/2010 9:17a [facility] Cash SCasey 786.50 Pain Chest Sandoval Lees Unspec 427.31 Atrial Fibrillation 424.1 Aortic Valve Disorder 401.1 Hypertension Benign Office Visit 07/22/2009 2:00p DO Not Use Technical Services Specialist Sae, 401.1 Hypertension AT Becky Jain M.D. 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 Plan of Treatment Future Appointment(s):06/26/2018 1:45 pm - Aaron Johnson MD at [facility]05/30/2018 11:30 am - Ashley Martinez N.P. at [facility]05/27/2018 - Aaron Johnson, [id number] Unspecified intracapsular fracture of left femur, subsequentFollow up:Follow up: 4 dewagE23.571D Other intraarticular fracture of lower end of right radius,
[2018-05-30] MEDS ORDERED: Midazolam* 1 MG/ML 5 ML VIAL (5 MG) IV ONE (02:47)
--- NOTE | 2018-05-30 02:47 | ED ---
HPI Cardiac - HPI Summary HPI Summary: This patient is an 87 year old F with PMHx of paroxysmal A Fib brought in by ambulance to [facility] with a chief complaint of tachycardia since 22:00 05/29/18. Patient reports palpitations. Patient denies any pain, chest pain, SOB, lightheadedness, nausea, and diaphoresis. Pt is on Eliquis and has not missed any doses. She has had cardioversion before for her A Fib. Patient last ate at 18:00 05/29/18. [facility]. - History of Current Complaint Chief Complaint: EDDysrhythmPalp Stated Complaint: GENERAL ILLNESS PER EMS Time Seen by Provider: 05/30/18 02:20 Hx Obtained From: Patient Onset/Duration: Started Hours Ago - 22:00 05/29/18 Timing: Constant Initial Severity: Mild Current Severity: Mild Pain Intensity: 0 Pain Scale Used: 0-10 Numeric Associated Signs and Symptoms: Positive: Other: - Papitations. Denies any pain, diaphoresis.. Negative: Chest Pain, Shortness of Breath, Lightheadedness, Nausea - Additional Pertinent History Primary Care Physician: [id number] - Allergy/Home Medications Allergies/Adverse Reactions: Allergies Allergy/AdvReac Type Severity Reaction Status Date / Time No Known Allergies Allergy Verified 04/30/18 13:03 PMH/Surg Hx/FS Hx/Imm Hx Endocrine/Hematology History: Reports: Hx Anticoagulant Therapy, Hx Anemia Denies: Hx Diabetes, Hx Thyroid Disease Cardiovascular History: Reports: Hx Congestive Heart Failure, Hx Coronary Artery Disease, Hx Hypercholesterolemia, Hx Hypertension, Hx Myocardial Infarction, Hx Peripheral Vascular Disease, Hx Syncope, Hx Valvular Heart Disease, Other Cardiovascular Problems/Disorders - aortic valve replacement Denies: Hx Angina, Hx Pacemaker/ICD Respiratory History: Reports: Hx Chronic Bronchitis Denies: Hx Asthma, Hx Chronic Obstructive Pulmonary Disease (COPD) GI History: Reports: Hx Irritable Bowel Denies: Hx Gastrointestinal Bleed, Hx Hiatal Hernia, Hx Ulcer History: Denies: Hx Kidney Stones, Hx Renal Disease Musculoskeletal History: Reports: Hx Arthritis, Hx Back Problems, Hx Orthopedic Injury, Other Musculoskeletal History - HAMMER TOE LEFT SECOND TOE Denies: Hx Osteoporosis Sensory History: Reports: Hx Cataracts - LENS IMPLANTS 2011, Hx Contacts or Glasses - glasses, Hx Vision Problem Denies: Hx Hearing Aid Opthamlomology History: Reports: Hx Cataracts - LENS IMPLANTS 2011, Hx Contacts or Glasses - glasses, Hx Vision Problem Neurological History: Denies: Hx Dementia, Hx Transient Ischemic Attacks (TIA) Psychiatric History: Denies: Hx Panic Disorder - Cancer History Hx Chemotherapy: No Hx Radiation Therapy: No - Surgical History Surgery Procedure, Year, and Place: AORTIC valve replacement, 2012,. , 1964, [facility]. Cataract surgery, 2011, [facility], [place] LEFT [place]. cardiac catherization with cardiac stent to RCA October 2016. cardioversions 2014,2015, 08/2016 Hx Anesthesia Reactions: No - Immunization History Date of Influenza Vaccine: 12/25 Infectious Disease History: No Infectious Disease History: Denies: Hx Clostridium Difficile, Hx Hepatitis, Hx Human Immunodeficiency Virus (HIV), Hx of Known/Suspected MRSA, Hx Shingles, Hx Tuberculosis, Hx Known/ Suspected VRE, Hx Known/Suspected VRSA, History Other Infectious Disease, Traveled Outside the in Last 30 Days - Family History Known Family History: Positive: Hypertension - Social History Alcohol Use: None Hx Substance Use: No Substance Use Type: Reports: None Hx Tobacco Use: No Smoking Status (MU): Never Smoked Tobacco Have You Smoked in the Last Year: No Review of Systems Negative: Skin Diaphoresis Positive: Palpitations, Other - Tachycardia. Negative: Chest Pain Negative: Shortness Of Breath Negative: Nausea Negative: Other - Any pain Neurological: Other - Denies lightheadedness All Other Systems Reviewed And Are Negative: Yes Physical Exam - Summary Physical Exam Summary: VITAL SIGNS: Reviewed. GENERAL: Patient is a well-developed and nourished FEMALE who is lying comfortable in the stretcher. Patient is not in any acute respiratory distress. HEAD AND FACE: No signs of trauma. No ecchymosis, hematomas or skull depressions. No sinus tenderness. EYES: PERRLA, EOMI x 2, No injected conjunctiva, no nystagmus. EARS: Hearing grossly intact. Ear canals and tympanic membranes are within normal limits. MOUTH: Oropharynx within normal limits. NECK: Supple, trachea is midline, no adenopathy, no JVD, no carotid bruit, no c- spine tenderness, neck with full ROM. CHEST: Symmetric, no tenderness at palpation LUNGS: Clear to auscultation bilaterally. No wheezing or crackles. CVS: Irregular tachycardia, S1 and S2 present, no murmurs or gallops appreciated. ABDOMEN: Soft, non-tender. No signs of distention. No rebound no guarding, and no masses palpated. Bowel sounds are normal. EXTREMITIES: FROM in all major joints, no edema, no cyanosis or clubbing. NEURO: Alert and oriented x 3. No acute neurological deficits. Speech is normal and follows commands. SKIN: Dry and warm Triage Information Reviewed: Yes Vital Signs On Initial Exam: Initial Vitals Temp Pulse Resp BP Pulse Ox 98.7 F 127 18 142/117 96 05/30/18 02:10 05/30/18 02:10 05/30/18 02:10 05/30/18 02:10 05/30/18 02:10 Vital Signs Reviewed: Yes Procedures - Procedure Summary Procedure Summary: Moderate sedation: after obtaining consent from pt and family, we followed moderate sedation protocol. 50 mg fentanyl and Versed 2.5 mg with moderate sedation accomplished. Vital signs remain stable throughout procedure. No reversal agent used. Time spent 15 mins. No complications. - Additional Procedures Additional Procedures: cardioversion/defib - Obtained consent from patient and family. Performed under moderate sedation. Patient was cardioverted using synchronized 100 J. She stayed in sinus rhythm for about 22 mins and went back to A Fib a gain. Cardioverted again and is now still in sinus rhythm. Diagnostics - Vital Signs Vital Signs Temp Pulse Resp BP Pulse Ox 05/30/18 02:10 98.7 F 127 18 142/117 96 - Laboratory Result Diagrams: 05/30/18 02:56 05/30/18 02:56 Lab Statement: Any lab studies that have been ordered have been reviewed, and results considered in the medical decision making process. - CT Chest/Thorax CTA CT Interpretation Completed By: Radiologist Summary of CT Findings: 05:27. 1. Minimal bilateral pleural effusions, new since 11/04/2013 with mild bilateral. lower lobe compressive atelectasis. 2. Status post sternotomy. 3. Layering sludge in the gallbladder. 4. Cardiomegaly. 5. Otherwise negative CTA chest. No pulmonary embolism is identified. ED Physician has reviewed this imaging report. - EKG 02:32 Cardiac Rate: Tachycardia - 125 BPM EKG Rhythm: Atrial Fibrillation 03:11 Cardiac Rate: Tachycardia - 141 BPM EKG Rhythm: Atrial Fibrillation Summary of EKG Findings: Post-cardioversion 03:18 Cardiac Rate: NL - 71 BPM EKG Rhythm: Sinus Rhythm Summary of EKG Findings: Post-cardioversion. Disposition - Course Course Of Treatment: This patient is an 87 year old F with PMHx of paroxysmal A Fib brought in by ambulance to [facility] with a chief complaint of tachycardia since 22:00 05/29/18. Patient and family permission were acquired to perform moderate sedation and then cardioversion. After the first cardioversion, pt had sinus rhythm for about 22 minutes before reverting back to A Fib. Patient remained agusto in sinus rhythm after the second cardioversion. Chest/Thorax CTA was negative. I spoke with Dr. Luz, cardiology, who advised that I d/c the patient with dx of paroxysmal atrial fibrillation so that the patient could follow up with Dr. Talib Cisneros cardiology, with whom they already have an appointment scheduled. - Diagnoses Provider Diagnoses: Paroxysmal atrial fibrillation - Physician Notifications Discussed Care Of Patient With: Carlos A Luz - Cardiology Time Discussed With Above Provider: 05:36 Instructed by Provider To: Other - Discharge and have her follow up with Dr. Talib Cisneros cardiology. Discharge - Sign-Out/Discharge Documenting (check all that apply): Patient Departure - D/C home Patient Received Moderate/Deep Sedation with Procedure: Yes - Discharge Plan Condition: Stable Disposition: HOME Patient Education Materials: A-fib (Atrial Fibrillation) (ED), Moderate Sedation (ED) Referrals: Susy Quevedo MD [Primary Care Provider] - 2 Days Talib Cisneros MD [Medical Doctor] - 1 Day Additional Instructions: PLEASE RETURN TO THE ED TO IMMEDIATELY FOR WORSENING OR CONCERNING SYMPTOMS. FOLLOW UP WITH YOUR PCP AND DR. CISNEROS CARDIOLOG[facility], TOMORROW DURING YOUR APPOINTMENT. - Attestation Statements Document Initiated by Scribe: Yes Documenting Scribe: Сергей Zuniga Provider For Whom Scribe is Documenting (Include Credential): Jennifer Baldwin MD Scribe Attestation: Сергей Scott, scribed for eJnnifer Baldwin MD on 05/30/18 at 0541. Status of Scribe Document: Ready
[2018-05-30] MEDS ORDERED: fentaNYL* 50 MCG/ML 2 ML VIAL (100 MCG VIAL) IV SLOW PU ONE (02:48)
[2018-05-30] MEDS ORDERED: NS 0.9% 1000 ML** 1,000 ML IV ONE (02:48)
[2018-05-30] MEDS ORDERED: Naloxone* 0.4 MG/ML 1 ML VIAL ONE (02:52)
[2018-05-30] MEDS ORDERED: Flumazenil* 0.1 MG/ML 5 ML MDV ONE (02:52)
[2018-05-30 03:09] LABS: ABS Basophils 0.1 10^3/ul (0-0.2); ABS Eosinophils 0.3 10^3/ul (0-0.6); ABS Lymphocytes 1.1 10^3/ul (1.0-4.8); ABS Neutrophils 4.8 10^3/ul (1.5-7.7); ABS Nucleated RBC 0 10^3/ul; Eosinophil % 3.9 %; Hematocrit 27 % (33-41); Lymphocyte % 15.6 %; Mean Corpuscular HGB Conc 33 g/dL (31-36); Mean Corpuscular Hemoglobin 31 pg (27-31); Mean Corpuscular Volume 93 fL (80-97); Mean Platelet Volume 6.5 fL (7.4-10.4); Nucleated Red Blood Cells % 0; Platelet Count 242 10^3/uL (150-450); Red Cell Distribution Width 15 % (10.5-15); White Blood Count 7.2 10^3/uL (3.5-10.8)
[2018-05-30 03:17] LABS: Activated Partial Thrombo Time 30.5 seconds (26.0-36.3); INR 1.93 (0.77-1.02)
[2018-05-30 03:26] LABS: Albumin 2.8 g/dL (3.2-5.2); Albumin/Globulin Ratio 1.1 (1-3); BUN/Creatinine Ratio 13.4 (8-20); Calcium 8.2 mg/dL (8.6-10.3); EGFR African American 48.2 (>60); EGFR Non-African American 39.8 (>60); Globulin 2.6 g/dL (2-4); Magnesium 1.8 mg/dL (1.9-2.7); Potassium 3.6 mmol/L (3.5-5.0); Total Bilirubin 0.5 mg/dL (0.2-1.0); Total Protein 5.4 g/dL (6.4-8.9)
[2018-05-30 03:27] LABS: Troponin I 0.03 ng/mL (<0.04)
[2018-05-30 03:44] LABS: TSH (Thyroid Stimulating Horm) 7.58 mcIU/mL (0.34-5.60)
[2018-05-30] MEDS ORDERED: Iodixanol* (CONTRAST) 320 MG/ML 100 ML SDV IV ONE (04:07)
[2018-05-30] MEDS ORDERED: Amiodarone TAB* 200 MG PO ONE (05:25)
[2018-05-30] MEDS ORDERED: Carvedilol TAB* 6.25 MG PO ONE (05:39)
[2018-05-30 06:08] VITALS: BP 175/66
== END 2018-05-30 06:08 | disposition home or self-care (01) ==
LOC: ED 02:04
DX: I48.0 Paroxysmal atrial fibrillation (principal); Z79.01 Long term (current) use of anticoagulants; J90 Pleural effusion, not elsewhere classified; I25.10 Atherosclerotic heart disease of native coronary artery without angina pectoris; I25.2 Old myocardial infarction; I11.0 Hypertensive heart disease with heart failure; Z95.5 Presence of coronary angioplasty implant and graft; Z95.2 Presence of prosthetic heart valve; Z96.649 Presence of unspecified artificial hip joint
CPT/HCPCS: 36415; 71275; 80053; 83735; 84443; 84484; 85025; 85610; 85730; 92960; 93005; 96360; 96361; 99156; 99285; A9270-GY; J2250; J2310; J3010; Q9967

== ENCOUNTER 2018-06-05 06:36 | Inpatient (IN) | payer MEDICARE ==
--- NOTE | 2018-06-05 07:34 | ED ---
Palpitations / Dysrhythmia - HPI Summary HPI Summary: Pt is an 87 y/o F presenting to the ED brought in by EMS for palpitations that woke her up around 0445. The pt has a hx of paroxysmal Afib and was cardioverted at [facility] on 05/30/18, and reports this feels similar to past episodes. She presently feels okay, and denies chest pain, sob, or dizziness. Pt is s/p AoVR, [place], recent hip surgery(hence in rehab), and is on amiodarone and Eliquis. Pt voids her DNR, which her and Abi RN both witness, and her states she is competent to make this decision. Pt wishes to be a FULL CODE. She sees Dr. Cisneros of cardiology. Vitals while in room: 125 bpm, 121/83 BP, 20 respirations, 96% SaO2. The pt presently has multiple episodes of Vtach happening in room, patient is asymptomatic. Second blood pressure is 119/ 90 after episode of Vtach. Note: Dr. Dannie Sherman later reviewed strips and EKG and determined arrhythmia associated with the afib with RVR is aberrant conduction, not Vtach. Home Medications Medication Instructions Recorded Confirmed Type Carvedilol TAB* [Coreg TAB*] 3.125 mg PO BID 09/30/12 05/04/18 History Folic Acid TAB* [Folvite TAB*] 1 mg PO QAM 09/30/12 05/04/18 History Furosemide TAB* [Lasix TAB*] 40 mg PO QAM 09/30/12 05/04/18 History Amiodarone TAB* [Cordarone Tab*] 200 mg PO QAM 12/28/14 05/04/18 History Aspirin EC TAB* [Ecotrin EC Low 81 mg PO QAM 12/28/14 05/04/18 History Dose 81 MG*] Docusate CAP* [Colace Cap*] 100 mg PO TID 12/28/14 05/04/18 History Potassium Chlor TAB* [Klor Con ER 10 meq PO QAM 10/11/16 05/04/18 History TAB 10 MEQ*] Apixaban* [Eliquis*] 5 mg PO BID #60 tab 10/17/16 05/04/18 Rx Nitroglycerin TAB 0.4 MG* 0.4 mg SL Q5M PRN #60 tab 10/17/16 05/04/18 Rx Cyanocobalamin TAB* [Vitamin B12 1,000 mcg PO DAILY 03/06/17 05/04/18 History TAB*] Calcium Carbonate/Vitamin D3 2 tab PO DAILY 05/28/17 05/04/18 History [Calcium 600-Vit D3 400 Tablet] Multivitamins/Minerals TAB* 1 tab PO DAILY 05/28/17 05/04/18 History [Theragran/minerals TAB*] Ferrous Sulfate TAB* 325 mg PO DAILY 01/10/18 05/04/18 History Atorvastatin* [Lipitor 40 MG*] 40 mg PO DAILY 04/30/18 05/04/18 History Acetaminophen TAB* [Tylenol TAB*] 650 mg PO Q4H PRN tab 05/13/18 Rx Nystatin TOP POWDER* 1 applic TOPICAL TID btl 05/13/18 Rx Polyethylene Glycol 3350* 17 gm PO BID packet 05/13/18 Rx [Miralax*] amLODIPine TAB* [Norvasc 5 mg TAB*] 5 mg PO DAILY tab 05/13/18 Rx oxyCODONE/Acetamin 5/325 MG* 2 tab PO Q4H PRN tab 05/13/18 Rx [Percocet 5/325 TAB*] - History of Current Complaint Chief Complaint: EDDysrhythmPalp Time Seen by Provider: 06/05/18 07:13 Hx Obtained From: Patient, Family/Watch Technician - Onset/Duration: Sudden Onset, Lasting Hours, Still Present Timing: Constant Severity Initially: Moderate Severity Currently: Moderate Character: Irregular, Pounding Aggravating: Nothing Alleviating: Nothing Associated Signs & Symptoms: Dizzy Related History: Similar Episode/Dx as - afib with RVR - Risk Factors Cardiac: Prior [place] - Allergy/Home Medications Allergies/Adverse Reactions: Allergies Allergy/AdvReac Type Severity Reaction Status Date / Time No Known Allergies Allergy Verified 04/30/18 13:03 Home Medications: Home Medications Cephalexin CAP* [Keflex CAP*] 500 mg PO QID 06/05/18 [History Confirmed 06/05/18 ] Collagenase 250 MG/GM OINT* [Santyl 250 mg/gm Oint*] 1 applic TOPICAL Q72H 06/05 [History Confirmed 06/05/18] Glycerin 1 each GA SEE INSTRUCTIONS PRN 06/05/18 [History Confirmed 06/05/18] Magnesium Hydroxide LIQ* [Milk of Magnesia LIQ*] 30 ml PO Q72H 06/05/18 [ History Confirmed 06/05/18] Potassium Chlor TAB* [Klor Con ER TAB*] 20 meq PO DAILY 06/05/18 [History Confirmed 06/05/18] PMH/Surg Hx/FS Hx/Imm Hx Previously Healthy: No Endocrine/Hematology History: Reports: Hx Anticoagulant Therapy, Hx Anemia Denies: Hx Diabetes, Hx Thyroid Disease Cardiovascular History: Reports: Hx Atrial Fibrillation, Hx Congestive Heart Failure, Hx Coronary Artery Disease, Hx Hypercholesterolemia, Hx Hypertension, Hx Myocardial Infarction, Hx Peripheral Vascular Disease, Hx Syncope, Hx Valvular Heart Disease - s/p AVR, Other Cardiovascular Problems/Disorders - aortic valve replacement 2012, S/P cardioversion 05/30/18 Denies: Hx Angina, Hx Pacemaker/ICD Respiratory History: Reports: Hx Chronic Bronchitis Denies: Hx Asthma, Hx Chronic Obstructive Pulmonary Disease (COPD) GI History: Reports: Hx Irritable Bowel Denies: Hx Gastrointestinal Bleed, Hx Hiatal Hernia, Hx Ulcer History: Denies: Hx Kidney Stones, Hx Renal Disease Musculoskeletal History: Reports: Hx Arthritis, Hx Back Problems, Hx Orthopedic Injury, Other Musculoskeletal History - HAMMER TOE LEFT SECOND TOE Denies: Hx Osteoporosis Sensory History: Reports: Hx Cataracts - LENS IMPLANTS 2011, Hx Contacts or Glasses - glasses, Hx Vision Problem Denies: Hx Hearing Aid Opthamlomology History: Reports: Hx Cataracts - LENS IMPLANTS 2011, Hx Contacts or Glasses - glasses, Hx Vision Problem Neurological History: Denies: Hx Dementia, Hx Transient Ischemic Attacks (TIA) Psychiatric History: Denies: Hx Panic Disorder - Cancer History Hx Chemotherapy: No Hx Radiation Therapy: No - Surgical History Surgery Procedure, Year, and Place: AORTIC valve replacement, 2012,. , 1964, [facility]. Cataract surgery, 2011, [facility] [place], [place]. cardiac catherization with cardiac stent to RCA October 2016. cardioversions 2014,2015, 08/2016, 05/30/18. hip surgery 2019 Hx Anesthesia Reactions: No Infectious Disease History: No Infectious Disease History: Denies: Hx Clostridium Difficile, Hx Hepatitis, Hx Human Immunodeficiency Virus (HIV), Hx of Known/Suspected MRSA, Hx Shingles, Hx Tuberculosis, Hx Known/ Suspected VRE, Hx Known/Suspected VRSA, History Other Infectious Disease, Traveled Outside the [place] in Last 30 Days - Family History Known Family History: Positive: Hypertension - Social History [facility]: [facility] - for hip surgery rehab 06/05/18, is , present in ED Alcohol Use: None Hx Substance Use: No Substance Use Type: Reports: None Hx Tobacco Use: No Smoking Status (MU): Never Smoked Tobacco Have You Smoked in the Last Year: No Review of Systems Constitutional: Negative Positive: Palpitations. Negative: Chest Pain Negative: Shortness Of Breath Gastrointestinal: Negative Positive: no symptoms reported Musculoskeletal: Negative Skin: Negative Neurological: Negative - dizziness Psychological: Normal All Other Systems Reviewed And Are Negative: Yes Physical Exam - Summary Physical Exam Summary: Appearance: well-appearing, no pain distress, well-nourished Skin: Warm, color reflects adequate perfusion, dry Head: Normal Head/Face inspection, atraumatic Eyes: Conjunctiva clear ENT: Normal inspection Neck: Supple, no nodes, no JVD Respiratory: Lungs clear, no respiratory distress. Breath sounds mildly diminished bilaterally. Cardio: Irregular rhythm, rapid, no murmur, pulses normal, brisk capillary refill, pt can feel palpitations, but denies CP, SOB or dizziness; is unaware of arrhythmia associated with rapid afib (aberrant conduction) Abdomen: Soft, nontender Bowel sounds: Present Musculoskeletal: Strength Intact/ROM intact, no calf tenderness, no edema. Psychological: Normal Neuro: Alert, muscle tone normal, no focal deficit : Some blood in indwelling musa. Triage Information Reviewed: Yes Vital Signs On Initial Exam: Initial Vitals Temp Pulse Resp BP Pulse Ox 99.1 F 118 17 167/87 96 06/05/18 06:44 06/05/18 06:44 06/05/18 06:44 06/05/18 06:44 06/05/18 06:44 Vital Signs Reviewed: Yes Diagnostics - Vital Signs Vital Signs Temp Pulse Resp BP Pulse Ox 06/05/18 06:44 99.1 F 118 17 167/87 96 - Laboratory Result Diagrams: 06/05/18 07:34 06/07/18 12:44 Lab Statement: Any lab studies that have been ordered have been reviewed, and results considered in the medical decision making process. - Radiology CXR Radiology Interpretation Completed By: Radiologist Summary of Radiographic Findings: Chronic findings as described above including a mild degree of cardiomegaly. ED physician has reviewed this report. - EKG 0701 Cardiac Rate: Other Rate - 138bpm atrial fibrillation EKG Rhythm: Atrial Fibrillation ST Segment: Non-Specific Ectopy: None EKG Comparison: Other - c/w 05/30/18, pt now in afib Summary of EKG Findings: afib with RVR, Nvml IV CT. Prolonged QTc. Nml axis. No acute changes. Re-Evaluation - Re-Evaluation First Eval Re-Evaluation Time: 08:00 Change: Improved Comment: afib has slowed to 110-120 after metoprolol 2.5mg IV. BP stable 100's systolic. Pt continues to deny CP, SOB, dizziness. Dr. Dannie Sherman evaluating pt. Course/Dx - Course Course Of Treatment: Pt is an 87 y/o F presenting to the ED brought in by EMS from [facility] for palpitations that woke her up around 0445. The pt has a hx of Afib and reports this feels similar to past episodes. She was cardioverted in the [facility] ED on 05/30/18. She presently feels okay, and denies chest pain, sob, or dizziness. Pt voids her DNR upon admission to the ED, which her and Abi MOORE both witness, and her states she is competent to make this decision. Vitals while in room: 125 bpm, 121/83 BP, 20 respirations, 96% SaO2. The pt presently has multiple episodes of Vtach happening in room, patient is asymptomatic. Second blood pressure is 119/90 after run of Vtach. Dr. Dannie Sherman evaluated pt in the ED and determined that rhythm was not Vtach, but afib with RVR and aberrant conduction. In the ED course pt received metoprolol 2.5mg IV which slowed the afib from 140's to 110' s and BP was 100-110 systolic. Pt remained asymptomatic other than aware of palpitations. Spoke with Dr. Jesus Alberto Sherman, improvement specialist, who recommended treating with IV Metoprolol and admission for further workup. Also discussed the case with Dr. Ling who agrees to accept the pt for admission but recommended speaking with the primer powder blender wet, who is Dr. Dannie Sherman today. An EKG shows atrial fibrillation with RVR. CXR shows chronic findings as described in report, including a mild degree of cardiomegaly. Troponin is 0.03. In hematology, pt has 9.5 Hgb, 29 Hct (Anemia is not new). The pt has an INR of 1.59.(pt on Eliquis) Pts chloride is 97, creatinine is 1.18 (stable) , glucose 110, calcium 8.5, BNP 353, total protein is 5.8, and albumin is 3.1. TSH is 6.82 (pt on amiodarone). Urine specific gravity shows 1.003, urine blood shows 3+ A, urine RBC shows 3+(>10/hpf) A. (UA taken from indwelling musa). The pt will be admitted with dx including Afib with RVR, hematuria, and indwelling musa. - Diagnoses Differential Diagnosis/HQI/PQRI: Positive: Congestive Heart Failure, Coronary Artery Disease, Hypokalemia, Paroxymal SVT, Pulmonary Embolism Provider Diagnoses: Atrial fibrillation with RVR, Hematuria, Indwelling Musa catheter present - Physician Notifications Discussed Care Of Patient With: Jesus Alberto Sherman Time Discussed With Above Provider: 07:30 - Recommends rate control at this time with Beta blockers and admit Instructed by Provider To: Admit As Inpatient - Critical Care Time Critical Care Time: 30-74 min - 30 minutes Discharge - Sign-Out/Discharge Documenting (check all that apply): Patient Departure - Discharge Plan Condition: Critical Disposition: ADMITTED TO [facility] - Billing Disposition and Condition Condition: CRITICAL Disposition: Admitted to [facility] - Attestation Statements Document Initiated by Marcos: Yes Documenting Scribe: Charlette Larson Provider For Whom Marcos is Documenting (Include Credential): Dr. Addie Nieves MD. Scribe Attestation: Charlette Scott scribed for Dr. Addie Nieves MD. on 06/08/18 at 0020. Scribe Documentation Reviewed: Yes Provider Attestation: The documentation as recorded by the [email or web address] accurately reflects the service I personally performed and the decisions made by me, Dr. Addie Nieves MD. Status of Scribe Document: Viewed Consult Consult: 0730 - Spoke with Dr. Sherman who recommended slowing down the pt's present cardiac rhythm with beta blockers. He also recommended admission to [facility] [place] via Dr. Ling. [id number] - Spoke with Dr. Ling who will be the accepting physician to [facility] [place], but recommends speaking to the primer powder blender wet first. 0822 - Spoke with Dr. Dannie Sherman who states the pt is not in vtach but is in rapid afib with aberrent conduction, accepts for admission to ICU.
[2018-06-05] MEDS ORDERED: Metoprolol Tartrate IV* 1 MG/ML 5 ML VIAL IV ONE ×2 (07:36→13:44)
[2018-06-05 07:45] LABS: ABS Basophils 0 10^3/ul (0-0.2); ABS Eosinophils 0.2 10^3/ul (0-0.6); ABS Monocytes 0.8 10^3/ul (0-0.8); ABS Neutrophils 4.7 10^3/ul (1.5-7.7); ABS Nucleated RBC 0 10^3/ul; Eosinophil % 2.6 %; Hematocrit 29 % (33-41); Hemoglobin 9.5 g/dL (12.0-16.0); Lymphocyte % 14.8 %; Mean Corpuscular HGB Conc 33 g/dL (31-36); Mean Corpuscular Hemoglobin 31 pg (27-31); Mean Corpuscular Volume 93 fL (80-97); Mean Platelet Volume 6.3 fL (7.4-10.4); Nucleated Red Blood Cells % 0; Platelet Count 195 10^3/uL (150-450); Red Blood Count 3.06 10^6 /uL (3.70-4.87); Red Cell Distribution Width 16 % (10.5-15); White Blood Count 6.7 10^3/uL (3.5-10.8)
[2018-06-05 07:53] LABS: Activated Partial Thrombo Time 29.7 seconds (26.0-36.3); INR 1.59 (0.77-1.02)
[2018-06-05 08:03] LABS: Albumin 3.1 g/dL (3.2-5.2); Albumin/Globulin Ratio 1.1 (1-3); BUN/Creatinine Ratio 10.2 (8-20); Calcium 8.5 mg/dL (8.6-10.3); EGFR African American 52.4 (>60); EGFR Non-African American 43.3 (>60); Globulin 2.8 g/dL (2-4); Magnesium 1.9 mg/dL (1.9-2.7); Potassium 3.8 mmol/L (3.5-5.0); Total Bilirubin 0.6 mg/dL (0.2-1.0); Total Protein 5.9 g/dL (6.4-8.9)
[2018-06-05 08:04] LABS: Urine Appearance Clear; Urine Bacteria Absent (Absent); Urine Bilirubin Negative (Negative); Urine Blood 3+ (Negative); Urine Color Straw; Urine Glucose Negative (Negative); Urine Ketones Negative (Negative); Urine Nitrite Negative (Negative); Urine Protein Negative (Negative); Urine Red Blood Cell 3+(>10/hpf) (Absent); Urine Specific Gravity 1.003 (1.010-1.030); Urine Urobilinogen Negative (Negative); Urine White Blood Cell Trace(0-5/hpf) (Absent)
[2018-06-05 08:06] LABS: Troponin I 0.03 ng/mL (<0.04)
[2018-06-05 08:08] LABS: CKMB ng/mL 0.9 ng/mL (0.6-6.3)
[2018-06-05] MEDS ORDERED: Magnesium Sulfate 2 GM IV* 2 GM/50 ML BAG IVPB ONE (08:24)
[2018-06-05 08:40] LABS: TSH (Thyroid Stimulating Horm) 6.82 mcIU/mL (0.34-5.60)
[2018-06-05] MEDS ORDERED: Metoprolol Tartrate IV* 1 MG/ML 5 ML VIAL IV PRN (08:41)
[2018-06-05] MEDS ORDERED: Lactated Ringers 1000 ML Bag* 1,000 ML IV SCH (09:00)
[2018-06-05] MEDS ORDERED: Potassium Chlor TAB* 10 MEQ TAB.ER PO SCH (09:00)
[2018-06-05] MEDS ORDERED: amLODIPine TAB* 5 MG PO SCH (09:00)
[2018-06-05] MEDS ORDERED: Carvedilol TAB* 3.125 MG PO SCH (09:00)
[2018-06-05] MEDS: Aspirin EC TAB* 81 MG TAB.EC PO SCH (10:33)
[2018-06-05] MEDS: Docusate CAP* 100 MG PO SCH ×3 (10:34→21:01)
[2018-06-05] MEDS: Atorvastatin* 40 MG TAB PO SCH (10:34)
[2018-06-05] MEDS: Amiodarone TAB* 200 MG PO SCH (10:34)
[2018-06-05] MEDS: Furosemide TAB* 40 MG PO SCH (10:34)
[2018-06-05] MEDS: Apixaban* 5 MG TAB PO SCH ×2 (10:35→21:01)
[2018-06-05] MEDS: Metoprolol Succinate XL TAB* 50 MG PO SCH ×2 (12:35→21:01)
[2018-06-05] MEDS: Nystatin TOP POWDER* 15 GM BTL TOPICAL SCH ×3 (12:38→21:01)
--- NOTE | 2018-06-05 13:11 | HP ---
ADMISSION HISTORY AND PHYSICAL: DATE OF ADMISSION: 06/05/18 REASON FOR ADMISSION: Atrial fibrillation with rapid ventricular response. HISTORY OF PRESENT ILLNESS: This is an 87-year-old white female with a history of paroxysmal atrial fibrillation, prosthetic aortic valve, hypertension, hyperlipidemia, and left hip fracture, who awoke this AM with palpitatons and presented to the emergency department with atrial fibrillation and a rapid ventricular rate. After 2.5 mg of metoprolol, the ventricular rate dropped to 110-120. Patient denies chest pain or SOB. Is on amiodarone and Eliquis for AFib. OUTPATIENT MEDICATIONS: 1. Aspirin 81 mg daily. 2. Amiodarone 200 mg daily. 3. Furosemide 40 mg daily. 4. Folic acid 1 mg daily. 5. Ferrous sulfate 325 mg daily. 6. Lipitor 40 mg daily. 7. KCl 40 mEq daily. 8. Eliquis 5 mg twice daily. 9. Nitroglycerin 4 mg sublingual p.r.n. 10. Carvedilol 3.125 mg twice daily. 11. Keflex 500 mg 4 times daily. ALLERGIES: No known drug allergies. SOCIAL HISTORY: The patient is , but is currently in a rehab facility for PT following the hip Fx. She denies alcohol or other illicit drug abuse. REVIEW OF SYSTEMS: Noncontributory. PHYSICAL EXAMINATION GENERAL: The patient is alert, oriented and breathing comfortably. VS: T=97.8, BP = 110/70, HR = 110, RR = 14 SpO2 = 94% on nasal O2 HEENT: There is no facial symmetry. No jugular venous distention. LUNGS: Clear to auscultation. CARDIAC: Irregular rhythm, but no murmurs or rubs. ABDOMEN: Soft, nontender. EXTREMITIES: Warm, not cyanotic, and not edematous. LABORATORY DATA: Admission laboratory exam: Hemoglobin was 9.5, white count 6.7, platelet count 195 K. BUN 12, creatinine 1.2. Sodium 136, potassium 3.8, chloride 97, anion gap 9, glucose 110. Magnesium 1.9, albumin 3.1, total protein 5.9. TSH was elevated at 6.82. Brain natriuretic peptide is slightly elevated at 353. Chest x-ray shows cardiomegaly with no pulmonary infiltrates. EKG shows atrial fibrillation with some aberrantly conducted supraventricular beats. IMPRESSION: Paroxysmal atrial fibrillation with poor ventricular rate control. No evidence of CHF or acute coronary syndrome. PLAN/RECOMMENDATIONS: Will use beta blockers for acute rate control, and continue oral amiodarone. Cardiology will make further recommendations regarding rate control. [id number]/[facility] #: [id number] MTDD
--- NOTE | 2018-06-05 13:38 | CONSULT ---
Subjective Date of Service: 06/05/18 Interval History: Date of admission and consult 06/05/2018 Service: [employer] Ax Technical Architect/Dr. Dannie Sherman Drop Forger: Dr. Cisneros PMD: Dr. Quevedo CC: Palpitations Reason for consult: Afib HPI: Veronica Sherwood is an 87 year old woman with a history as below. [facility]. She had palpitations early this morning and is now admitted with symptomatic atrial fibrillation rapid. There was some asymptomatic aberrancy on telemetry. She has a musa catheter in from previous. She denies any shortness of breath, chest discomfort or lightheadedness. Her family is at bedside. PMhx Fall, hip fracture hospitalized 05/04-05/14/18 s/p orif L hip 05/07/18 Paroxysmal atrial fibrillation, on amiodarone and eliquis with history of cardioversions most recently 1 week ago on 05/30 Anemia Aortic Valve Replacement - (03/16/2012) Bioprosthetic AVR #23 CAD/NSTEMI (10/21/2016) single vessel pRCA 90% s/p BMS HFpEF obesity allergies: amlodipine (edema) FH father due to Stroke. SH: Personal Habits: Smoking: Patient has never smoked.Denies alcohol use.Drug Use : Denies Drug Use. Medications Active Medications: Amiodarone HCl (Cordarone Tab*) 200 mg PO QAM [facility] Last Admin: 06/05/18 10:34 Dose: 200 mg Apixaban (Eliquis*) 5 mg PO BID [facility] Last Admin: 06/05/18 10:35 Dose: 5 mg Aspirin (A[facility]in Ec Tab*) [facility] [place] Last Admin: 06/05/18 10:33 Dose: 81 mg Atorvastatin Calcium (Lipitor*) 40 mg PO DAILY [facility] Last Admin: 06/05/18 10:34 Dose: 40 mg Docusate Sodium (Colace Cap*) 100 mg PO TID [facility] Last Admin: 06/05/18 10:34 Dose: 100 mg Furosemide (Lasix Tab*) 40 mg PO QAM [facility] Last Admin: 06/05/18 10:34 Dose: 40 mg Metoprolol Succinate (Toprol Xl Tab*) 50 mg PO BID [facility] Last Admin: 06/05/18 12:35 Dose: 50 mg Nystatin (Nystatin Top Powder*) 1 applic TOPICAL TID [facility] Last Admin: 06/05/18 12:38 Dose: Not Given Potassium Chloride (Klor Con Er Tab*) 40 meq PO QAM [facility] Home Medications: Carvedilol TAB* [Coreg TAB*] 3.125 mg PO BID 09/30/12 [History Confirmed ] Folic Acid TAB* [Folvite TAB*] 1 mg PO QAM 09/30/12 [History Confirmed 06/05/18] Furosemide TAB* [Lasix TAB*] 40 mg PO QAM 09/30/12 [History Confirmed 06/05/18] Amiodarone TAB* [Cordarone Tab*] 200 mg PO QAM 12/28/14 [History Confirmed 06/05] Aspirin EC TAB* [Ecotrin EC Low Dose 81 MG*] 81 mg PO QAM 12/28/14 [History Confirmed 06/05/18] Docusate CAP* [Colace Cap*] 100 mg PO TID 12/28/14 [History Confirmed 06/05/18] Apixaban* [Eliquis*] 5 mg PO BID #60 tab 10/17/16 [Rx Confirmed 06/05/18] Nitroglycerin TAB 0.4 MG* 0.4 mg SL Q5M PRN #60 tab 10/17/16 [Rx Confirmed 06/05] Cyanocobalamin TAB* [Vitamin B12 TAB*] 1,000 mcg PO DAILY 03/06/17 [History Confirmed 06/05/18] Calcium Carbonate/Vitamin D3 [Calcium 600-Vit D3 400 Tablet] 2 tab PO DAILY [History Confirmed 06/05/18] Multivitamins/Minerals TAB* [Theragran/minerals TAB*] 1 tab PO DAILY 05/28/17 [ History Confirmed 06/05/18] Ferrous Sulfate TAB* 325 mg PO DAILY 01/10/18 [History Confirmed 06/05/18] Atorvastatin* [Lipitor 40 MG*] 40 mg PO DAILY 04/30/18 [History Confirmed ] Acetaminophen TAB* [Tylenol TAB*] 650 mg PO Q4H PRN tab 05/13/18 [Rx Confirmed 06/05/18] Nystatin TOP POWDER* 1 applic TOPICAL TID btl 05/13/18 [Rx Confirmed 06/05/18] Polyethylene Glycol 3350* [Miralax*] 17 gm PO BID packet 05/13/18 [Rx Confirmed 06/05/18] Cephalexin CAP* [Keflex CAP*] 500 mg PO QID 06/05/18 [History Confirmed 06/05/18 ] Collagenase 250 MG/GM OINT* [Santyl 250 mg/gm Oint*] 1 applic TOPICAL Q72H 06/05 [History Confirmed 06/05/18] Glycerin 1 each OK SEE INSTRUCTIONS PRN 06/05/18 [History Confirmed 06/05/18] Magnesium Hydroxide LIQ* [Milk of Magnesia LIQ*] 30 ml PO Q72H 06/05/18 [ History Confirmed 06/05/18] Potassium Chlor TAB* [Klor Con ER TAB*] 20 meq PO DAILY 06/05/18 [History Confirmed 06/05/18] Review of Systems - Measurements Intake and Output: Intake and Output Last 24 Hours 06/03/18 06/04/18 06/05/18 06/06/18 06:59 06:59 06:59 06:59 Intake Total 50 Balance 50 Weight 220 lb 238 lb 12.17 oz Intake: IV Fluids 50 - Review of Systems Constitutional Symptoms: Negative: Weight Gain, Weight Loss, Fever Dermatology: Negative: Rash, Skin Lesions HEENT: Negative: Vertigo, Tinnitus Eyes: Negative: Change in Vision, Double Vision Thyroid: Positive: Palpitations Negative: Heat Intolerance, Sweatiness, Primary Hypothyroidism, Primary Hyperthyroidism, Weight Loss, Weight Gain Pulmonary: Negative: Cough, Sputum, Hemoptysis, Wheezing, Respiratory Distress, Shortness of Breath Cardiology: Positive: Palpitations, Edema Negative: Chest Pain, Shortness of Breath, Peripheral Vascular Dis, Faintness , Syncope, Claudication, Paroxysmal Nocturnal Dyspnea, Orthopnea Gastroenterology: Negative: Abdominal Pain, Nausea, Vomiting, Anorexia, Heartburn, Constipation , Haematemesis, Melena Genital - Urinary: Negative: Dysuria, Hematuria Musculoskeletal: Negative: Joint Pain, Joint Stiffness Endocrinology: Positive: Obesity Negative: Polydipsia, Polyuria Hematologic/Lymphatic: Positive: Use of Anticoagulant, Use of Antiplatelet Drugs Negative: Hx Leukemia, Hx Lymphoma Neurology: Negative: Dizziness, Change in Speech, Change in Sphincter Function Psychiatry: Negative: Unusual Anxiety, Suicidal Ideation Allergic/Immunologic: Negative: Hx HIV, Immunocompromise Review of Systems Statement: All other review of systems negative, unless stated above. Objective Vital Signs: Temp Pulse Resp BP Pulse Ox 97.9 F 122 20 148/98 95 06/05/18 09:57 06/05/18 13:00 06/05/18 13:00 06/05/18 13:00 06/05/18 13:00 Oxygen Devices in Use Now: None Appearance: nad, pleasant Ears/Nose/Mouth/Throat: Clear Oropharnyx, Mucous Membranes Moist Neck: NL Appearance and Movements; NL JVP, Trachea Midline Respiratory: Symmetrical Chest Expansion and Respiratory Effort, Clear to Auscultation Cardiovascular: - - irregularly irregular, 1/6 systolic murmur, mild edema Abdominal: - - soft obese, non tender Extremities: No Clubbing, Cyanosis Skin: No Rash or Ulcers Neurological: Alert and Oriented x 3 Laboratory Results: 06/05/18 07:34 06/05/18 07:34 INR (Anticoag Therapy) 1.59 (0.77-1.02) H 06/05/18 07:34 APTT 29.7 seconds (26.0-36.3) 06/05/18 07:34 Total Bilirubin 0.60 mg/dL (0.2-1.0) 06/05/18 07:34 AST 18 U/L (13-39) 06/05/18 07:34 ALT 13 U/L (7-52) 06/05/18 07:34 Alkaline Phosphatase 82 U/L (34-104) 06/05/18 07:34 CK-MB (CK-2) 0.9 ng/mL (0.6-6.3) 06/05/18 07:34 B-Natriuretic Peptide 353 pg/mL (<=100) H 06/05/18 07:34 Total Protein 5.9 g/dL (6.4-8.9) L 06/05/18 07:34 Albumin 3.1 g/dL (3.2-5.2) L 06/05/18 07:34 Globulin 2.8 g/dL (2-4) 06/05/18 07:34 Albumin/Globulin Ratio 1.1 (1-3) 06/05/18 07:34 TSH 6.82 mcIU/mL (0.34-5.60) H 06/05/18 07:34 06/05/18 07:34 Troponin I 0.03 Diagnostic Imaging: echo Carotid Doppler - (11/24/2014) [facility] [place] 50-69% stenosis of the right internal carotid artery based on velocity. Less than 50% stenosis of the left internal carotid artery. Cardiac Catheterization - (10/15/2016) LM: distal 30% stenosis LAD: normal LCx: normal RCA: Prox 90% STENT: to RCA 3.5X16mm Bare Metal Stent Cardiac Catheterization - (01/10/2012) Normal LV funciton Severe Mean Grad 36 mmHg LM: ostial 50% LAD: normal LCx: normal Ramus: ostial 50% RCA : Ostial 50% echo 05/04/2018: LVEF 65-70%, normal functioning bioprosthetic AVF, at least mild TR with moderate pHTN, LA mod-severely dilated 06/05/2018 lungs clear, mild costophrenic angle blunting EKG Data: 06/05/2018: afib rate 1380 bpm,, ivcd, no ischemic changes 05/30/2018: NSR 71 bpm, ivcd Assessment/Plan 1. Symptomatic rapid paroxysmal atrial fibrillation 2. AVR bioprosthetic 3. NSTEMI, CAD s/p PCI - LVEF normal 4. HFpEF - Continue current cardiac medications except changes coreg low dose to toprol 50 mg po bid (ordered) and uptitrate as needed for better rate control and symptom relief. She did have exertional symptomatic dizziness associated with sinus bradycardia in 2016 but this was prior to her SA node vessel being revascularized. The fall last month was not syncopal. Will follow Thank you for allowing me to participate in the cardiovascular care of this patient. Please do not hesitate to contact me with questions or concerns.
[2018-06-05] MEDS ORDERED: Metoprolol Tartrate IV* 1 MG/ML 5 ML VIAL ONE (13:47)
--- NOTE | 2018-06-05 14:15 | PN ---
Progress Note - Progress Note Date of Service: 06/05/18 Note: Serum TSH elevated on admission ? 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 Will repeat TSH tomorrow.
[2018-06-06] MEDS: Atorvastatin* 40 MG TAB PO SCH (09:25)
[2018-06-06] MEDS: Furosemide TAB* 40 MG PO SCH (09:25)
[2018-06-06] MEDS: Apixaban* 5 MG TAB PO SCH ×2 (09:25→20:33)
[2018-06-06] MEDS: Amiodarone TAB* 200 MG PO SCH (09:25)
[2018-06-06] MEDS: Metoprolol Succinate XL TAB* 50 MG PO SCH ×2 (09:25→20:33)
[2018-06-06] MEDS: Potassium Chlor TAB* 10 MEQ TAB.ER PO SCH (09:25)
[2018-06-06] MEDS: Aspirin EC TAB* 81 MG TAB.EC PO SCH (09:25)
[2018-06-06] MEDS: Docusate CAP* 100 MG PO SCH ×3 (09:25→20:33)
[2018-06-06] MEDS: Nystatin TOP POWDER* 15 GM BTL TOPICAL SCH ×3 (09:27→20:34)
[2018-06-06] MEDS ORDERED: Digoxin IV* 0.5 MG/2 ML AMP (0.25 MG/ML) IV SLOW PU ONE ×2 (09:55→16:00)
[2018-06-06 10:00] LABS: TSH (Thyroid Stimulating Horm) 6.71 mcIU/mL (0.34-5.60)
[2018-06-06 10:04] LABS: Free T3 2.3 pg/mL (2.5-3.9)
--- NOTE | 2018-06-06 10:04 | PN ---
Subjective Date of Service: 06/06/18 Interval History: f/u symptomatic rapid afib Afib HR remains uncontrolled but better than admission and no palpitations today Feels dyspneic on exertion Had symptomatic hypotension yesterday s/p IV 2.5 mg lopressor Medications Active Medications: Amiodarone HCl ([facility] Tab*) [facility] [place] Admin: 06/06/18 09:25 Dose: 200 mg Apixaban (Eliquis*) 5 mg PO BID [facility] Last Admin: 06/06/18 09:25 Dose: 5 mg Aspirin (Aspirin Ec Tab*) 81 mg PO QAM [facility] Last Admin: 06/06/18 09:25 Dose: 81 mg Atorvastatin Calcium (Lipitor*) 40 mg PO DAILY [facility] Last Admin: 06/06/18 09:25 Dose: 40 mg Digoxin (Digoxin Iv*) 0.5 mg IV SLOW PU ONCE ONE Stop: 06/06/18 09:56 Digoxin (Lanoxin Tab*) 0.125 mg PO EVERY OTHER DAY [facility] Docusate Sodium (Colace Cap*) 100 mg PO TID [facility] Last Admin: 06/06/18 09:25 Dose: 100 mg Furosemide (Lasix Tab*) [facility] [place] Admin: 06/06/18 09:25 Dose: 40 mg Metoprolol Succinate (Toprol Xl Tab*) 50 mg PO BID [facility] Last Admin: 06/06/18 09:25 Dose: 50 mg Nystatin (Nystatin Top Powder*) 1 applic TOPICAL TID [facility] Last Admin: 06/06/18 09:27 Dose: Not Given Potassium Chloride (Klor Con Er Tab*) 40 meq PO [facility] Last Admin: 06/06/18 09:25 Dose: 40 meq Objective Vital Signs: Temp Pulse Resp BP Pulse Ox 98.1 F 70 18 126/49 98 06/06/18 07:16 06/06/18 07:16 06/06/18 07:50 06/06/18 07:16 06/06/18 07:16 Oxygen Devices in Use Now: None Appearance: nad, pleasant Ears/Nose/Mouth/Throat: Clear Oropharnyx, Mucous Membranes Moist Neck: NL Appearance and Movements; NL JVP, Trachea Midline Respiratory: Symmetrical Chest Expansion and Respiratory Effort, - - mild scattered wheeze Cardiovascular: - - irregularly irregular, 1/6 systolic murmur, mild edema Abdominal: - - soft obese, non tender Extremities: No Clubbing, Cyanosis Skin: No Rash or Ulcers Neurological: Alert and Oriented x 3 Laboratory Results: 06/05/18 07:34 06/05/18 07:34 INR (Anticoag Therapy) 1.59 (0.77-1.02) H 06/05/18 07:34 APTT 29.7 seconds (26.0-36.3) 06/05/18 07:34 Total Bilirubin 0.60 mg/dL (0.2-1.0) 06/05/18 07:34 AST 18 U/L (13-39) 06/05/18 07:34 ALT 13 U/L (7-52) 06/05/18 07:34 Alkaline Phosphatase 82 U/L (34-104) 06/05/18 07:34 CK-MB (CK-2) 0.9 ng/mL (0.6-6.3) 06/05/18 07:34 B-Natriuretic Peptide 353 pg/mL (<=100) H 06/05/18 07:34 Total Protein 5.9 g/dL (6.4-8.9) L 06/05/18 07:34 Albumin 3.1 g/dL (3.2-5.2) L 06/05/18 07:34 Globulin 2.8 g/dL (2-4) 06/05/18 07:34 Albumin/Globulin Ratio 1.1 (1-3) 06/05/18 07:34 TSH 6.82 mcIU/mL (0.34-5.60) H 06/05/18 07:34 06/05/18 07:34 Troponin I 0.03 Diagnostic Imaging: echo Carotid Doppler - (11/24/2014) [facility] [place] 50-69% stenosis of the right internal carotid artery based on velocity. Less than 50% stenosis of the left internal carotid artery. Cardiac Catheterization - (10/15/2016) LM: distal 30% stenosis LAD: normal LCx: normal RCA: Prox 90% STENT: to RCA 3.5X16mm Bare Metal Stent Cardiac Catheterization - (01/10/2012) Normal LV funciton Severe Mean Grad 36 mmHg LM: ostial 50% LAD: normal LCx: normal Ramus: ostial 50% RCA : Ostial 50% echo 05/04/2018: LVEF 65-70%, normal functioning bioprosthetic AVF, at least mild TR with moderate pHTN, LA mod-severely dilated 06/05/2018 lungs clear, mild costophrenic angle blunting EKG Data: 06/05/2018: afib rate 1380 bpm,, ivcd, no ischemic changes 05/30/2018: NSR 71 bpm, ivcd Assessment/Plan 1. Symptomatic rapid paroxysmal atrial fibrillation - On eliquis 2. AVR bioprosthetic 3. NSTEMI, CAD s/p PCI - LVEF normal 4. HFpEF - Continue toprol 50 mg po bid (home beta-emmett was coreg 3.125 mg po bid) - Continue amiodarone 200 mg po daily - Give IV digoxin 0.5 mg x 1 now and then start low dose 125 mcg every day ( ordered) given amiodarone interaction and plan to check a digoxin level in several weeks - She did have exertional symptomatic dizziness associated with sinus bradycardia in 2017 but this was prior to her SA node vessel being revascularized. Thank you for allowing me to participate in the cardiovascular care of this patient. Please do not hesitate to contact me with questions or concerns.
[2018-06-06 10:05] LABS: Free T4 0.95 ng/dL (0.61-1.12)
--- NOTE | 2018-06-06 16:02 | PN ---
Subjective Date of Service: 06/06/18 Interval History: Pt feels well. Does not feel palpitations anymore. Denies CP/SOB Objective Active Medications: Amiodarone HCl (Cordarone Tab*) 200 mg PO [facility] Last Admin: 06/06/18 09:25 Dose: 200 mg Apixaban (Eliquis*) 5 mg PO BID [facility] Last Admin: 06/06/18 09:25 Dose: 5 mg Aspirin (Aspirin Ec Tab*) [facility] [place] Last Admin: 06/06/18 09:25 Dose: 81 mg Atorvastatin Calcium (Lipitor*) 40 mg PO DAILY [facility] Last Admin: 06/06/18 09:25 Dose: 40 mg Digoxin (Lanoxin Tab*) 0.125 mg PO EVERY OTHER DAY [facility] Digoxin (Digoxin Iv*) 0.25 mg IV SLOW PU ONCE ONE Stop: 06/06/18 16:01 Last Admin: 06/06/18 15:19 Dose: 0.25 mg Docusate Sodium (Colace Cap*) 100 mg PO TID [facility] Last Admin: 06/06/18 15:20 Dose: Not Given Furosemide (Lasix Tab*) 40 mg PO [facility] Last Admin: 06/06/18 09:25 Dose: 40 mg Metoprolol Succinate (Toprol Xl Tab*) 50 mg PO BID [facility] Last Admin: 06/06/18 09:25 Dose: 50 mg Nystatin (Nystatin Top Powder*) 1 applic TOPICAL TID [facility] Last Admin: 06/06/18 15:23 Dose: Not Given Potassium Chloride (Klor Con Er Tab*) 40 meq PO [facility] Last Admin: 06/06/18 09:25 Dose: 40 meq Vital Signs - 8 hr 06/06/18 06/06/18 06/06/18 10:28 10:47 15:19 Temperature 97.6 F Pulse Rate 131 120 122 Respiratory 20 Rate Blood Pressure 128/78 (mmHg) O2 Sat by Pulse 98 Oximetry 06/06/18 15:20 Temperature 99.0 F Pulse Rate 124 Respiratory 18 Rate Blood Pressure 130/66 (mmHg) O2 Sat by Pulse 97 Oximetry Oxygen Devices in Use Now: None Appearance: 87 yo F in NAD, aAOx3 Eyes: No Scleral Icterus, PERRLA Ears/Nose/Mouth/Throat: NL Teeth, Lips, Gums, Mucous Membranes Moist Neck: NL Appearance and Movements; NL JVP, Trachea Midline Respiratory: Symmetrical Chest Expansion and Respiratory Effort Cardiovascular: NL Sounds; No Murmurs; No JVD, - - irregular Abdominal: NL Sounds; No Tenderness; No Distention Lymphatic: No Cervical Adenopathy Extremities: No Clubbing, Cyanosis, - - trace pedal edema b/l Skin: No Nodules or Sclerosis, - - left hip incision healed well Neurological: Alert and Oriented x 3, NL Muscle Strength and Tone Result Diagrams: 06/05/18 07:34 06/05/18 07:34 Microbiology and Other Data: Microbiology 06/05/18 07:40 Urine Culture - Preliminary Urine Escherichia Coli 06/05/18 10:42 Nasal Screen MRSA (PCR) - Final Nasal Mrsa Not Detected Assess/Plan/Problems-Billing Assessment: 87 yo F with h/o paroxysmal A. fib, recent cardioversion, CAD, s/p left hip fx (L hip hemiarthoplasty on 05/07/18) presents with A. fib with RVR from [facility] rehab - Patient Problems (1) Atrial fibrillation with rapid ventricular response Comment: rate fairly controlled with addition of digoxin and lopressor today cont Amiodarone/Eliquis Appreciate DR. Sherman's f/u (2) Anemia Comment: normocytic, chronic cont iron supplement (3) CKD (chronic kidney disease) stage 3, GFR 30-59 ml/min Comment: creat at baseline (4) DVT prophylaxis Comment: -Continue Eliquis -Continue ASA due to known CAD Status and Disposition: inpatient
[2018-06-07] MEDS: Ferrous Sulfate TAB* 325 MG PO SCH (09:27)
[2018-06-07] MEDS: Atorvastatin* 40 MG TAB PO SCH (09:27)
[2018-06-07] MEDS: Apixaban* 5 MG TAB PO SCH ×2 (09:27→21:08)
[2018-06-07] MEDS: Docusate CAP* 100 MG PO SCH ×3 (09:27→21:03)
[2018-06-07] MEDS: Digoxin TAB* 0.125 MG PO SCH (09:28)
[2018-06-07] MEDS: Aspirin EC TAB* 81 MG TAB.EC PO SCH (09:28)
[2018-06-07] MEDS: Metoprolol Succinate XL TAB* 50 MG PO SCH ×2 (09:28→21:03)
[2018-06-07] MEDS: Furosemide TAB* 40 MG PO SCH (09:28)
[2018-06-07] MEDS: Amiodarone TAB* 200 MG PO SCH (09:28)
[2018-06-07] MEDS: Nystatin TOP POWDER* 15 GM BTL TOPICAL SCH ×3 (09:31→21:24)
[2018-06-07] MEDS: Potassium Chlor TAB* 10 MEQ TAB.ER PO SCH (09:32)
--- NOTE | 2018-06-07 12:02 | PN ---
Subjective Date of Service: 06/07/18 - CC: fluttering Interval History: f/u symptomatic rapid afib The patient feels better, less aware of palpitations. Has not been ambulating or undergoing rehab. No SOB, no orthopnea/PND. Medications Active Medications: Amiodarone HCl (Cordarone Tab*) 200 mg PO QAM [facility] Last Admin: 06/07/18 09:28 Dose: 200 mg Apixaban (Eliquis*) 5 mg PO BID [facility] Last Admin: 06/07/18 09:27 Dose: 5 mg Aspirin (Aspirin Ec Tab*) 81 mg PO QAM [facility] Last Admin: 06/07/18 09:28 Dose: 81 mg Atorvastatin Calcium (Lipitor*) 40 mg PO DAILY [facility] Last Admin: 06/07/18 09:27 Dose: 40 mg Digoxin (Lanoxin Tab*) 0.125 mg PO EVERY OTHER DAY [facility] Last Admin: 06/07/18 09:28 Dose: 0.125 mg Docusate Sodium (Colace Cap*) 100 mg PO TID [facility] Last Admin: 06/07/18 09:27 Dose: 100 mg Ferrous Sulfate (Ferrous Sulfate Tab*) 325 mg PO DAILY [facility] Last Admin: 06/07/18 09:27 Dose: 325 mg Furosemide (Lasix Tab*) [facility] [place] Last Admin: 06/07/18 09:28 Dose: 40 mg Metoprolol Succinate (Toprol Xl Tab*) 50 mg PO BID [facility] Last Admin: 06/07/18 09:28 Dose: 50 mg Nystatin (Nystatin Top Powder*) 1 applic TOPICAL TID [facility] Last Admin: 06/07/18 09:31 Dose: 1 applic Potassium Chloride (Klor Con Er Tab*) [facility] meq [facility] [place] Last Admin: 06/07/18 09:32 Dose: 40 meq Objective Vital Signs: Temp Pulse Resp BP Pulse Ox 97.1 F 90 16 138/58 98 06/07/18 00:53 06/07/18 09:28 06/07/18 08:00 06/07/18 00:53 06/07/18 00:53 Vital Signs - 12 hr Temp Pulse Resp BP Pulse Ox 06/07/18 09:28 90 06/07/18 08:00 16 06/07/18 00:53 97.1 F 90 19 138/58 98 Oxygen Devices in Use Now: None Appearance: nad, pleasant Ears/Nose/Mouth/Throat: Clear Oropharnyx, Mucous Membranes Moist Neck: NL Appearance and Movements; NL JVP, Trachea Midline Respiratory: Symmetrical Chest Expansion and Respiratory Effort, - Cardiovascular: - - irregularly irregular, rapid intermittentoy, 1/6 systolic murmur USB. Abdominal: - - soft obese, non tender Extremities: No Clubbing, Cyanosis Skin: No Rash or Ulcers Neurological: Alert and Oriented x 3 Lines/Tubes/Other Access: Clean, Dry and Intact Peripheral IV Laboratory Results: 06/05/18 07:34 06/05/18 07:34 INR (Anticoag Therapy) 1.59 (0.77-1.02) H 06/05/18 07:34 APTT 29.7 seconds (26.0-36.3) 06/05/18 07:34 Total Bilirubin 0.60 mg/dL (0.2-1.0) 06/05/18 07:34 AST 18 U/L (13-39) 06/05/18 07:34 ALT 13 U/L (7-52) 06/05/18 07:34 Alkaline Phosphatase 82 U/L (34-104) 06/05/18 07:34 CK-MB (CK-2) 0.9 ng/mL (0.6-6.3) 06/05/18 07:34 B-Natriuretic Peptide 353 pg/mL (<=100) H 06/05/18 07:34 Total Protein 5.9 g/dL (6.4-8.9) L 06/05/18 07:34 Albumin 3.1 g/dL (3.2-5.2) L 06/05/18 07:34 Globulin 2.8 g/dL (2-4) 06/05/18 07:34 Albumin/Globulin Ratio 1.1 (1-3) 06/05/18 07:34 TSH 6.71 mcIU/mL (0.34-5.60) H 06/06/18 08:58 06/05/18 07:34 Troponin I 0.03 Diagnostic Imaging: echo Carotid Doppler - (11/24/2014) [facility] [place] 50-69% stenosis of the right internal carotid artery based on velocity. Less than 50% stenosis of the left internal carotid artery. Cardiac Catheterization - (10/15/2016) LM: distal 30% stenosis LAD: normal LCx: normal RCA: Prox 90% STENT: to RCA 3.5X16mm Bare Metal Stent Cardiac Catheterization - (01/10/2012) Normal LV funciton Severe Mean Grad 36 mmHg LM: ostial 50% LAD: normal LCx: normal Ramus: ostial 50% RCA : Ostial 50% echo 05/04/2018: LVEF 65-70%, normal functioning bioprosthetic AVF, at least mild TR with moderate pHTN, LA mod-severely dilated 06/05/2018 lungs clear, mild costophrenic angle blunting EKG Data: 06/05/2018: afib rate 1380 bpm,, ivcd, no ischemic changes 05/30/2018: NSR 71 bpm, ivcd Assessment/Plan Pt s/p hip repair 05/07/18. Presented to ED 05/30/18 in afib RVR and CV'd in ED ( no YUE). Presented in afib, RVR again 5 days later and now on rate control. 1. PAF: - On eliquis,resumed 05/07/18 post op. - On amiodarone chronically -KCl has been below 4.0 w/afib, getting replacement Digoxen added and Metoprolol started, coreg stopped for improved rate control, some improvement but mild. Plan for afib: -update lytes. -possible retry CV in AM. Thyroid: Mild abnormalities likely related to Amiodarone, follow. I won't increase amiodarone. 2. AVR bioprosthetic-stable on exam. 3. Hx NSTEMI, CAD s/p PCI-continue with risk factor modification. - LVEF normal 4. HFpEF -if BP increases off Coreg and needs KCl replacement consider aldactone instead of KCl, but would need careful watching of K+, BUN, creat. Hip FX: -Recommend resuming PT here where we can see rate response, BP response on current meds.
[2018-06-07 13:23] LABS: BUN/Creatinine Ratio 11.8 (8-20); Calcium 8.3 mg/dL (8.6-10.3); EGFR African American 56.9 (>60); Potassium 3.9 mmol/L (3.5-5.0)
--- NOTE | 2018-06-07 18:41 | PN ---
Subjective Date of Service: 06/07/18 Interval History: Pt c/o episodic dizziness and continues to be symptomatic with her PAF Objective Active Medications: Amiodarone HCl (Cordarone Tab*) 200 mg PO QAM [facility] Last Admin: 06/07/18 09:28 Dose: 200 mg Apixaban (Eliquis*) 5 mg PO BID [facility] Last Admin: 06/07/18 09:27 Dose: 5 mg Aspirin (Aspirin Ec Tab*) [facility] [place] Admin: 06/07/18 09:28 Dose: 81 mg Atorvastatin Calcium (Lipitor*) 40 mg PO DAILY [facility] Last Admin: 06/07/18 09:27 Dose: 40 mg Digoxin (Lanoxin Tab*) 0.125 mg PO EVERY OTHER DAY [facility] Last Admin: 06/07/18 09:28 Dose: 0.125 mg Docusate Sodium (Colace Cap*) 100 mg PO TID [facility] Last Admin: 06/07/18 13:35 Dose: 100 mg Ferrous Sulfate (Ferrous Sulfate Tab*) 325 mg PO DAILY [facility] Last Admin: 06/07/18 09:27 Dose: 325 mg Furosemide (Lasix Tab*) 40 mg PO [facility] Last Admin: 06/07/18 09:28 Dose: 40 mg Metoprolol Succinate (Toprol Xl Tab*) 50 mg PO BID [facility] Last Admin: 06/07/18 09:28 Dose: 50 mg Nystatin (Nystatin Top Powder*) 1 applic TOPICAL TID [facility] Last Admin: 06/07/18 13:36 Dose: 1 applic Potassium Chloride (Klor Con Er Tab*) 40 meq PO [facility] Last Admin: 06/07/18 09:32 Dose: 40 meq Vital Signs - 8 hr 06/07/18 06/07/18 06/07/18 12:00 13:36 16:04 Temperature 96.9 F 98.9 F Pulse Rate 46 97 85 Respiratory 18 16 Rate Blood Pressure 145/86 104/77 150/78 (mmHg) O2 Sat by Pulse 97 98 98 Oximetry Oxygen Devices in Use Now: None Eyes: No Scleral Icterus Neck: NL Appearance and Movements; NL JVP Respiratory: Symmetrical Chest Expansion and Respiratory Effort, Clear to Auscultation Cardiovascular: - - irregularly irregular at time of exam Abdominal: NL Sounds; No Tenderness; No Distention Extremities: - - 1+ Edema Neurological: Alert and Oriented x 3 Result Diagrams: 06/05/18 07:34 06/07/18 12:44 Microbiology and Other Data: Microbiology 06/05/18 07:40 Urine Culture - Preliminary Urine Escherichia Coli 06/05/18 10:42 Nasal Screen MRSA (PCR) - Final Nasal Mrsa Not Detected Assess/Plan/Problems-Billing Assessment: 87 yo F with h/o paroxysmal A. fib, recent cardioversion, CAD, s/p left hip fx (L hip hemiarthoplasty on 05/07/18) presents with A. fib with RVR from [facility] rehab - Patient Problems (1) Atrial fibrillation Current Visit: No Status: Acute Onset Date: 01/25/14 Code(s): I48.91 - UNSPECIFIED ATRIAL FIBRILLATION SNOMED Code(s): 77219387 Comment: -Continue Amiodarone ( has been on it for a while) -Continue Apixaban -Placed on Metoprolol and Digoxin -Was cardioverted last week.Paroxysmal A fib and currently in a fib and symptomatic with her episodes -Reviewed Dr Thompson's note -Possible CV based on clinical progress (2) Thyroid activity decreased Current Visit: Yes Status: Acute Code(s): E03.9 - HYPOTHYROIDISM, UNSPECIFIED SNOMED Code(s): 17068510 Comment: Likely from amiodarone Follow for now Can repeat as outpatient and consider thyroid supplementation (3) Urinary retention Current Visit: Yes Status: Acute Code(s): R33.9 - RETENTION OF URINE, UNSPECIFIED SNOMED Code(s): 671723336 Comment: HAs a musa and previously noted to be retaining Repeat UA for UTI eval and voiding trial (4) Anemia Current Visit: Yes Status: Acute Code(s): D64.9 - ANEMIA, UNSPECIFIED SNOMED Code(s): 417542101 Comment: stable continue iron supplementation (5) PVC (premature ventricular contraction) Current Visit: Yes Status: Acute Code(s): I49.3 - VENTRICULAR PREMATURE DEPOLARIZATION SNOMED Code(s): 25546163 Comment: Multiple episodes of PVCs today Will monitor rhythm strips Continue K supplementation will check mg Status and Disposition: inpatient
[2018-06-07 20:25] LABS: Urine Appearance Clear; Urine Bacteria Absent (Absent); Urine Bilirubin Negative (Negative); Urine Blood 3+ (Negative); Urine Color Straw; Urine Glucose Negative (Negative); Urine Ketones Negative (Negative); Urine Nitrite Negative (Negative); Urine Protein Negative (Negative); Urine Red Blood Cell 3+(>10/hpf) (Absent); Urine Specific Gravity 1.004 (1.010-1.030); Urine Urobilinogen Negative (Negative); Urine White Blood Cell Trace(0-5/hpf) (Absent)
[2018-06-08 04:53] LABS: ABS Basophils 0 10^3/ul (0-0.2); ABS Eosinophils 0.1 10^3/ul (0-0.6); ABS Lymphocytes 1.1 10^3/ul (1.0-4.8); ABS Monocytes 0.8 10^3/ul (0-0.8); ABS Nucleated RBC 0 10^3/ul; Eosinophil % 2.3 %; Hematocrit 26 % (33-41); Hemoglobin 8.8 g/dL (12.0-16.0); Lymphocyte % 17.6 %; Mean Corpuscular HGB Conc 33 g/dL (31-36); Mean Corpuscular Hemoglobin 31 pg (27-31); Mean Corpuscular Volume 94 fL (80-97); Mean Platelet Volume 6.6 fL (7.4-10.4); Nucleated Red Blood Cells % 0; Platelet Count 176 10^3/uL (150-450); Red Blood Count 2.82 10^6 /uL (3.70-4.87); Red Cell Distribution Width 16 % (10.5-15)
[2018-06-08 05:10] LABS: BUN/Creatinine Ratio 12.3 (8-20); Calcium 8.1 mg/dL (8.6-10.3); EGFR African American 54.6 (>60); EGFR Non-African American 45.1 (>60); Potassium 3.7 mmol/L (3.5-5.0)
[2018-06-08] MEDS: Potassium Chlor TAB* 10 MEQ TAB.ER PO SCH (08:43)
[2018-06-08] MEDS: Metoprolol Succinate XL TAB* 50 MG PO SCH ×2 (08:43→20:58)
[2018-06-08] MEDS: Apixaban* 5 MG TAB PO SCH ×2 (08:43→20:58)
[2018-06-08] MEDS: Atorvastatin* 40 MG TAB PO SCH (08:44)
[2018-06-08] MEDS: Ferrous Sulfate TAB* 325 MG PO SCH (08:44)
[2018-06-08] MEDS: Amiodarone TAB* 200 MG PO SCH (08:45)
[2018-06-08] MEDS: Furosemide TAB* 40 MG PO SCH (08:45)
[2018-06-08] MEDS: Aspirin EC TAB* 81 MG TAB.EC PO SCH (08:45)
[2018-06-08] MEDS: Docusate CAP* 100 MG PO SCH ×3 (08:45→20:58)
[2018-06-08] MEDS: Nystatin TOP POWDER* 15 GM BTL TOPICAL SCH ×3 (08:46→20:55)
[2018-06-08] MEDS ORDERED: Potassium Chlor TAB* 20 MEQ TAB.ER PO ONE (13:06)
--- NOTE | 2018-06-08 13:40 | PN ---
Subjective Date of Service: 06/08/18 - CC: fluttering, dizzy Interval History: f/u symptomatic rapid afib Lightheaded with PT, standing. Pt family present, many questions regarding afib, ventricular rates, rate control vs. rhythm control. Addressed concerns about changed medications and educated the family and patient on these issues. Medications Active Medications: Amiodarone HCl (Cordarone Tab*) 200 mg PO QAM [facility] Last Admin: 06/08/18 08:45 Dose: 200 mg Apixaban (Eliquis*) 5 mg PO BID [facility] Last Admin: 06/08/18 08:43 Dose: 5 mg Aspirin (Aspirin Ec Tab*) 81 mg PO QAM [facility] Last Admin: 06/08/18 08:45 Dose: 81 mg Atorvastatin Calcium (Lipitor*) 40 mg PO DAILY [facility] Last Admin: 06/08/18 08:44 Dose: 40 mg Digoxin (Lanoxin Tab*) 0.125 mg PO EVERY OTHER DAY [facility] Last Admin: 06/07/18 09:28 Dose: 0.125 mg Docusate Sodium (Colace Cap*) 100 mg PO TID [facility] Last Admin: 06/08/18 08:45 Dose: 100 mg Ferrous Sulfate (Ferrous Sulfate Tab*) 325 mg PO DAILY [facility] Last Admin: 06/08/18 08:44 Dose: 325 mg Furosemide (Lasix Tab*) [facility] [place] Last Admin: 06/08/18 08:45 Dose: 40 mg Levothyroxine Sodium (Synthroid Tab*) 12.5 mcg PO DAILY@0600 [facility] Metoprolol Succinate (Toprol Xl Tab*) 50 mg PO BID [facility] Last Admin: 06/08/18 08:43 Dose: 50 mg Nystatin (Nystatin Top Powder*) 1 applic TOPICAL TID [facility] Last Admin: 06/08/18 08:46 Dose: 1 applic Potassium Chloride (Klor Con Er Tab*) 40 meq PO QAM [facility] Last Admin: 06/08/18 08:43 Dose: 40 meq Objective Vital Signs: Temp Pulse Resp BP Pulse Ox 98.4 F 51 18 151/60 95 06/08/18 07:19 06/08/18 07:19 06/08/18 07:19 06/08/18 07:19 06/08/18 11:24 Oxygen Devices in Use Now: None Appearance: Lying 30 degrees, room filled with family, NAD. Eyes: No Scleral Icterus, PERRLA Ears/Nose/Mouth/Throat: Clear Oropharnyx, Mucous Membranes Moist Neck: NL Appearance and Movements; NL JVP, Trachea Midline Respiratory: Symmetrical Chest Expansion and Respiratory Effort, - Cardiovascular: - - irregularly irregular, rapid intermittentoy, 2/6 systolic murmur USB, radiate to apex Abdominal: - - soft obese, non tender Extremities: No Clubbing, Cyanosis Skin: No Rash or Ulcers Neurological: Alert and Oriented x 3 Lines/Tubes/Other Access: Clean, Dry and Intact Peripheral IV Laboratory Results: 06/08/18 04:23 06/08/18 04:23 INR (Anticoag Therapy) 1.59 (0.77-1.02) H 06/05/18 07:34 APTT 29.7 seconds (26.0-36.3) 06/05/18 07:34 Total Bilirubin 0.60 mg/dL (0.2-1.0) 06/05/18 07:34 AST 18 U/L (13-39) 06/05/18 07:34 ALT 13 U/L (7-52) 06/05/18 07:34 Alkaline Phosphatase 82 U/L (34-104) 06/05/18 07:34 CK-MB (CK-2) 0.9 ng/mL (0.6-6.3) 06/05/18 07:34 B-Natriuretic Peptide 353 pg/mL (<=100) H 06/05/18 07:34 Total Protein 5.9 g/dL (6.4-8.9) L 06/05/18 07:34 Albumin 3.1 g/dL (3.2-5.2) L 06/05/18 07:34 Globulin 2.8 g/dL (2-4) 06/05/18 07:34 Albumin/Globulin Ratio 1.1 (1-3) 06/05/18 07:34 TSH 6.71 mcIU/mL (0.34-5.60) H 06/06/18 08:58 06/05/18 07:34 Troponin I 0.03 Diagnostic Imaging: echo Carotid Doppler - (11/24/2014) [facility] [place] 50-69% stenosis of the right internal carotid artery based on velocity. Less than 50% stenosis of the left internal carotid artery. Cardiac Catheterization - (10/15/2016) LM: distal 30% stenosis LAD: normal LCx: normal RCA: Prox 90% STENT: to RCA 3.5X16mm Bare Metal Stent Cardiac Catheterization - (01/10/2012) Normal LV funciton Severe Mean Grad 36 mmHg LM: ostial 50% LAD: normal LCx: normal Ramus: ostial 50% RCA : Ostial 50% echo 05/04/2018: LVEF 65-70%, normal functioning bioprosthetic AVF, at least mild TR with moderate pHTN, LA mod-severely dilated 06/05/2018 lungs clear, mild costophrenic angle blunting EKG Data: Tele 06/08/18: afib, RVR. 06/05/2018: afib rate 1380 bpm,, ivcd, no ischemic changes 05/30/2018: NSR 71 bpm, ivcd Assessment/Plan Pt s/p hip repair 05/07/18. Presented to ED 05/30/18 in afib RVR and CV'd in ED ( no YUE). Presented in afib, RVR again 5 days later and now on rate control. 1. PAF: - On eliquis,resumed 05/07/18 post op. - On amiodarone chronically -KCl has been below 4.0 w/afib, getting replacement, rmains low, giving another 40 meq. Goal K+ level: 4-5. Digoxen added and Metoprolol started, coreg stopped for improved rate control, some improvement but mild. Plan for afib: -Unable to CV today as unable to get nursing. Plan: CV in AM. Thyroid: Mild abnormalities likely related to Amiodarone, follow. Continue current Amiodarone dose, follow. - AVR bioprosthetic-stable on exam. - Hx NSTEMI, CAD s/p PCI-continue with risk factor modification. - LVEF normal -HFpEF -BP up, will try adding low dose aldactone (may need to decrease or stop KCl in the future) Hip FX: -Getting PT and symptomatic with exertion, hopefully will tolerate better post CV. -Anemia: likely related to hip sx, but contibutes to RVR of afib.
[2018-06-08] MEDS: Spironolactone TAB* 25 MG PO SCH (14:34)
--- NOTE | 2018-06-08 18:09 | PN ---
Subjective Date of Service: 06/08/18 Interval History: Denies any dizziness overnight.No complaints Objective Active Medications: Amiodarone HCl (Cordarone Tab*) 200 mg PO QAM [facility] Last Admin: 06/08/18 08:45 Dose: 200 mg Apixaban (Eliquis*) 5 mg PO BID [facility] Last Admin: 06/08/18 08:43 Dose: 5 mg Aspirin (Aspirin Ec Tab*) 81 mg PO QAM [facility] Last Admin: 06/08/18 08:45 Dose: 81 mg Atorvastatin Calcium (Lipitor*) 40 mg PO DAILY [facility] Last Admin: 06/08/18 08:44 Dose: 40 mg Digoxin (Lanoxin Tab*) 0.125 mg PO EVERY OTHER DAY [facility] Last Admin: 06/07/18 09:28 Dose: 0.125 mg Docusate Sodium (Colace Cap*) 100 mg PO TID [facility] Last Admin: 06/08/18 14:33 Dose: 100 mg Ferrous Sulfate (Ferrous Sulfate Tab*) 325 mg PO DAILY [facility] Last Admin: 06/08/18 08:44 Dose: 325 mg [facility]urosemide ([facility]ix Tab*) [facility] Admin: 06/08/18 08:45 Dose: 40 mg Levothyroxine Sodium (Synthroid Tab*) 12.5 mcg PO DAILY@0600 [facility] Metoprolol Succinate (Toprol Xl Tab*) 50 mg PO BID [facility] Last Admin: 06/08/18 08:43 Dose: 50 mg Nystatin (Nystatin Top Powder*) 1 applic TOPICAL TID [facility] Last Admin: 06/08/18 14:34 Dose: 1 applic Potassium Chloride (Klor Con Er Tab*) [facility]q [facility] Last Admin: 06/08/18 08:43 Dose: 40 meq Spironolactone (Aldactone Tab*) 25 mg PO DAILY [facility] Last Admin: 06/08/18 14:34 Dose: 25 mg Vital Signs - 8 hr 06/08/18 06/08/18 06/08/18 11:11 11:24 15:20 Temperature 98.2 F 98.3 F Pulse Rate 83 130 Respiratory 18 18 Rate Blood Pressure 123/56 105/35 (mmHg) O2 Sat by Pulse 83 95 99 Oximetry Oxygen Devices in Use Now: None Eyes: No Scleral Icterus Neck: NL Appearance and Movements; NL JVP Respiratory: Symmetrical Chest Expansion and Respiratory Effort, Clear to Auscultation Cardiovascular: - - irregularly irregular Extremities: - - 1+ Edema Neurological: Alert and Oriented x 3 Result Diagrams: 06/08/18 04:23 06/08/18 04:23 Microbiology and Other Data: Microbiology 06/05/18 07:40 Urine Culture - Preliminary Urine Escherichia Coli 06/05/18 10:42 Nasal Screen MRSA (PCR) - Final Nasal Mrsa Not Detected Assess/Plan/Problems-Billing Assessment: 87 yo F with h/o paroxysmal A. fib, recent cardioversion, CAD, s/p left hip fx (L hip hemiarthoplasty on 05/07/18) presents with A. fib with RVR from [facility] rehab - Patient Problems (1) Atrial fibrillation Current Visit: No Status: Acute Onset Date: 01/25/14 Code(s): I48.91 - UNSPECIFIED ATRIAL FIBRILLATION SNOMED Code(s): 46693284 Comment: -Continue Amiodarone ( has been on it for a while) -Continue Apixaban -Placed on Metoprolol and Digoxin -Was cardioverted last week.Paroxysmal A fib and currently in a fib and symptomatic with her episodes -CV in am per d/w Dr Thompson (2) Thyroid activity decreased Current Visit: Yes Status: Acute Code(s): E03.9 - HYPOTHYROIDISM, UNSPECIFIED SNOMED Code(s): 72177136 Comment: Likely from amiodarone Reviewed prior thyroid levels as outpatient pt reports symptoms of hypothyroidism will start synthroid 12.5 mg low dose from tomorrow and can adjust as OP based on response (3) Urinary retention Current Visit: Yes Status: Acute Code(s): R33.9 - RETENTION OF URINE, UNSPECIFIED SNOMED Code(s): 767187969 Comment: HAs a musa and previously noted to be retaining Remove musa and voiding trial (4) Anemia Current Visit: Yes Status: Acute Code(s): D64.9 - ANEMIA, UNSPECIFIED SNOMED Code(s): 585125285 Comment: stable continue iron supplementation (5) PVC (premature ventricular contraction) Current Visit: Yes Status: Acute Code(s): I49.3 - VENTRICULAR PREMATURE DEPOLARIZATION SNOMED Code(s): 65358517 Comment: episodes of pvc yesterday Continue K supplementation mg ok Status and Disposition: inpatient
[2018-06-09] MEDS: Levothyroxine TAB* 25 MCG TAB PO SCH (05:37)
[2018-06-09 06:56] LABS: BUN/Creatinine Ratio 12.6 (8-20); Calcium 8.3 mg/dL (8.6-10.3); EGFR African American 51.9 (>60); EGFR Non-African American 42.9 (>60); Potassium 3.9 mmol/L (3.5-5.0)
[2018-06-09 07:33] LABS: ABS Basophils 0 10^3/ul (0-0.2); ABS Eosinophils 0.1 10^3/ul (0-0.6); ABS Lymphocytes 0.7 10^3/ul (1.0-4.8); ABS Monocytes 0.9 10^3/ul (0-0.8); ABS Neutrophils 5.2 10^3/ul (1.5-7.7); ABS Nucleated RBC 0 10^3/ul; Eosinophil % 1.1 %; Hematocrit 28 % (33-41); Hemoglobin 9.4 g/dL (12.0-16.0); Lymphocyte % 10.7 %; Mean Corpuscular HGB Conc 33 g/dL (31-36); Mean Corpuscular Hemoglobin 31 pg (27-31); Mean Corpuscular Volume 93 fL (80-97); Nucleated Red Blood Cells % 0.1; Platelet Count 192 10^3/uL (150-450); Red Blood Count 3.04 10^6 /uL (3.70-4.87); Red Cell Distribution Width 17 % (10.5-15)
[2018-06-09] MEDS: Atorvastatin* 40 MG TAB PO SCH (08:47)
[2018-06-09] MEDS: Ferrous Sulfate TAB* 325 MG PO SCH (08:47)
[2018-06-09] MEDS: Spironolactone TAB* 25 MG PO SCH (08:48)
[2018-06-09] MEDS: Amiodarone TAB* 200 MG PO SCH (08:49)
[2018-06-09] MEDS: Aspirin EC TAB* 81 MG TAB.EC PO SCH (08:49)
[2018-06-09] MEDS: Apixaban* 5 MG TAB PO SCH ×2 (08:49→20:43)
[2018-06-09] MEDS: Metoprolol Succinate XL TAB* 50 MG PO SCH ×2 (08:49→20:43)
[2018-06-09] MEDS: Furosemide TAB* 40 MG PO SCH (08:50)
[2018-06-09] MEDS: Digoxin TAB* 0.125 MG PO SCH (08:50)
[2018-06-09] MEDS: Docusate CAP* 100 MG PO SCH ×3 (08:50→20:43)
[2018-06-09] MEDS: Potassium Chlor TAB* 10 MEQ TAB.ER PO SCH (08:50)
[2018-06-09] MEDS: Nystatin TOP POWDER* 15 GM BTL TOPICAL SCH ×3 (09:01→20:45)
[2018-06-09] MEDS ORDERED: Midazolam* 1 MG/ML 5 ML VIAL (5 MG) ONE (11:46)
[2018-06-09] MEDS ORDERED: Flumazenil* 0.1 MG/ML 5 ML MDV ONE ×2 (11:47→12:41)
[2018-06-09] MEDS ORDERED: fentaNYL* 50 MCG/ML 2 ML VIAL (100 MCG VIAL) ONE (11:47)
[2018-06-09] MEDS ORDERED: Naloxone* 0.4 MG/ML 1 ML VIAL ONE ×2 (11:47→12:42)
--- NOTE | 2018-06-09 14:36 | PN ---
Subjective Date of Service: 06/09/18 Interval History: HOSPITALIST PROGRESS NOTE Patient seen and examined at bedside. Care reviewed and d/w Matthew Brunson RN. She feels well today, offers no complaints. Family History: Unchanged from Admission Social History: Unchanged from Admission Past Medical History: Unchanged from Admission Objective Active Medications: Amiodarone HCl (Cordarone Tab*) 200 mg PO QAM [facility] Last Admin: 06/09/18 08:49 Dose: 200 mg Apixaban (Eliquis*) 5 mg PO BID [facility] Last Admin: 06/09/18 08:49 Dose: 5 mg Aspirin (Aspirin Ec Tab*) 81 mg PO QAM [facility] Last Admin: 06/09/18 08:49 Dose: 81 mg Atorvastatin Calcium (Lipitor*) 40 mg PO DAILY [facility] Last Admin: 06/09/18 08:47 Dose: 40 mg Digoxin (Lanoxin Tab*) 0.125 mg PO EVERY OTHER DAY [facility] Last Admin: 06/09/18 08:50 Dose: 0.125 mg Docusate Sodium (Colace Cap*) 100 mg PO TID [facility] Last Admin: 06/09/18 14:28 Dose: 100 mg Ferrous Sulfate (Ferrous Sulfate Tab*) 325 mg PO DAILY [facility] Last Admin: 06/09/18 08:47 Dose: 325 mg Furosemide (Lasix Tab*) 40 mg PO QAM [facility] Last Admin: 06/09/18 08:50 Dose: 40 mg Levothyroxine Sodium (Synthroid Tab*) 12.5 mcg PO DAILY@0600 [facility] Last Admin: 06/09/18 05:37 Dose: 12.5 mcg Metoprolol Succinate (Toprol Xl Tab*) 50 mg PO BID [facility] Last Admin: 06/09/18 08:49 Dose: 50 mg Nystatin (Nystatin Top Powder*) 1 applic TOPICAL TID [facility] Last Admin: 06/09/18 09:01 Dose: 1 applic Potassium Chloride (Klor Con Er Tab*) 40 meq PO QAM [facility] Last Admin: 06/09/18 08:50 Dose: 40 meq Spironolactone (Aldactone Tab*) 25 mg PO DAILY [facility] Last Admin: 06/09/18 08:48 Dose: 25 mg Vital Signs - 8 hr 06/09/18 06/09/18 06/09/18 06:33 07:19 08:50 Temperature 97.8 F Pulse Rate 68 68 Respiratory 18 16 Rate Blood Pressure 143/71 (mmHg) O2 Sat by Pulse 98 Oximetry 06/09/18 06/09/18 06/09/18 11:51 11:56 12:00 Temperature Pulse Rate 113 91 103 Respiratory 20 21 20 Rate Blood Pressure 136/89 149/77 (mmHg) O2 Sat by Pulse 96 97 99 Oximetry 06/09/18 06/09/18 06/09/18 12:01 12:06 12:12 Temperature Pulse Rate 90 89 107 Respiratory 21 21 17 Rate Blood Pressure 143/86 131/106 147/104 (mmHg) O2 Sat by Pulse 100 100 100 Oximetry 06/09/18 06/09/18 06/09/18 12:16 12:21 12:49 Temperature Pulse Rate 92 101 89 Respiratory 20 22 19 Rate Blood Pressure 143/86 169/71 174/94 (mmHg) O2 Sat by Pulse 100 100 98 Oximetry 06/09/18 06/09/18 06/09/18 12:54 12:58 13:00 Temperature Pulse Rate 97 54 53 Respiratory 20 23 18 Rate Blood Pressure 127/84 132/51 (mmHg) O2 Sat by Pulse 100 100 100 Oximetry 06/09/18 06/09/18 06/09/18 13:04 13:09 14:04 Temperature 98.9 F Pulse Rate 50 48 61 Respiratory 18 21 18 Rate Blood Pressure 103/44 89/39 149/49 (mmHg) O2 Sat by Pulse 100 100 99 Oximetry Oxygen Devices in Use Now: None Appearance: Pleasant elderly lady lying in bed in NAD. Eyes: No Scleral Icterus Ears/Nose/Mouth/Throat: Mucous Membranes Moist Neck: Trachea Midline Respiratory: Symmetrical Chest Expansion and Respiratory Effort, Clear to Auscultation Cardiovascular: - - Normal S1 and S2, irregularly irregular Neurological: Alert and Oriented x 3, NL Muscle Strength and Tone Result Diagrams: 06/09/18 06:26 06/09/18 06:25 Microbiology and Other Data: Microbiology 06/05/18 07:40 Urine Culture - Preliminary Urine Escherichia Coli 06/05/18 10:42 Nasal Screen MRSA (PCR) - Final Nasal Mrsa Not Detected Assess/Plan/Problems-Billing Assessment: Mrs Sherwood is an 87 yo F with h/o paroxysmal A. fib, s/p recent cardioversion, CAD, s/p left hip fx (L hip hemiarthoplasty on 05/07/18) presents with A. fib with RVR from [facility] rehab. - Patient Problems (1) Atrial fibrillation Comment: - Continue Amiodarone and Apixaban. - Placed on Metoprolol and Digoxin. - Plan for Cardioversion today. 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 (3) Urinary retention Comment: - Was able to void after Jerez removed - check bladder scan QID and straight cath if PVR>200ml. (4) Anemia Comment: - H/H stable. - Continue iron supplementation. (5) DVT prophylaxis Comment: - Continue Apixaban. (6) Full code status Status and Disposition: Inpatient.
--- NOTE | 2018-06-09 14:45 | CARD ---
CC: [facility]* CARDIOVERSION REPORT: DATE OF PROCEDURE: 06/09/18 PROCEDURE: Cardioversion. INDICATION: Atrial fibrillation. The patient is an 87-year-old female with a history of paroxysmal atrial fibrillation. She is on amiodarone. She is on chronic anticoagulation. The patient was admitted to the hospital last week with atrial fibrillation with rapid ventricular response. She was observed over the weekend. Cardioversion was recommended. DESCRIPTION OF PROCEDURE: The patient was brought to the procedure room in a fasting state. Informed consent had been obtained prior to the procedure. All labs had been reviewed. The patient was given 2 mg of Versed and 25 mcg of fentanyl for conscious sedation. The patient was cardioverted with 150 joules of synchronized biphasic energy. The patient converted to normal sinus rhythm. The patient tolerated the procedure well with no complications. This is the patient's second cardioversion in 4 weeks. It is my recommendation that the patient increase her amiodarone to 200 mg on even days and 300 mg on odd days, so every other day 200 and 300. Her other medications will remain the same. I will see the patient in followup in 2 to 3 weeks. [id number]/[facility] #: [id number] DONNA
--- NOTE | 2018-06-10 06:22 | PN ---
Progress Note - Progress Note Date of Service: 06/10/18 Note: Jerez removed on 06/09 - bladder scan showed >800, unable to void on bedside commode - straight cath x 1
[2018-06-10] MEDS: Levothyroxine TAB* 25 MCG TAB PO SCH (06:25)
[2018-06-10] MEDS: Aspirin EC TAB* 81 MG TAB.EC PO SCH (08:34)
[2018-06-10] MEDS: Amiodarone TAB* 200 MG PO SCH (08:34)
[2018-06-10] MEDS: Docusate CAP* 100 MG PO SCH (08:34)
[2018-06-10] MEDS: Ferrous Sulfate TAB* 325 MG PO SCH (08:34)
[2018-06-10] MEDS: Atorvastatin* 40 MG TAB PO SCH (08:34)
[2018-06-10] MEDS: Furosemide TAB* 40 MG PO SCH (08:34)
[2018-06-10] MEDS: Potassium Chlor TAB* 10 MEQ TAB.ER PO SCH (08:35)
[2018-06-10] MEDS: Spironolactone TAB* 25 MG PO SCH (08:35)
[2018-06-10] MEDS: Nystatin TOP POWDER* 15 GM BTL TOPICAL SCH (08:35)
[2018-06-10] MEDS: Metoprolol Succinate XL TAB* 50 MG PO SCH (08:35)
[2018-06-10] MEDS: Apixaban* 5 MG TAB PO SCH (08:35)
[2018-06-10 12:01] VITALS: BP 140/42
--- NOTE | 2018-06-10 14:16 | DS ---
CC: Dr. Quevedo; Dr. Cisneros; [facility]* DISCHARGE SUMMARY: DATE OF ADMISSION: 06/05/18 DATE OF DISCHARGE: 06/10/18 PRIMARY CARE PROVIDER: Dr. Quevedo. SIZER HAND: Dr. Cisneros. DISCHARGE DIAGNOSES: 1. Atrial fibrillation with rapid ventricular rate, status post cardioversion. 2. Hypothyroidism. SECONDARY DIAGNOSES: 1. Paroxysmal atrial fibrillation with last cardioversion on 05/30/18 prior to this admission. 2. Acute blood loss anemia. 3. Status post aortic valve replacement (March 2012, bioprosthetic aortic valve.) 4. Coronary artery disease status post [id number] elevation myocardial infarction with single-vessel right coronary artery 90% stenosis with status post bare-metal stent in October 2016. 5. Diastolic congestive heart failure. 6. Obesity with a BMI of 38. 7. Status post left hip open reduction and internal fixation on 05/07/18. MEDICATION LIST: 1. Aspirin 81 mg p.o. daily. 2. Calcium plus vitamin D 2 tablets p.o. daily. 3. Furosemide 40 mg p.o. daily. 4. Folic acid 1 mg p.o. daily. 5. Ferrous sulfate 325 mg p.o. daily. 6. Atorvastatin 20 mg p.o. daily. 7. Potassium chloride 20 mEq p.o. daily. 8. Multivitamin 1 tab p.o. daily. 9. Colace 100 mg p.o. t.i.d. 10. Vitamin B12 1000 mcg p.o. daily. 11. Glycerin suppository per rectum as needed for constipation if no bowel movement after milk of magnesia. 12. Milk of magnesia 30 mL p.o. q.72 hours. 13. Santyl ointment topical q.72 hours. 14. MiraLAX 17 g p.o. b.i.d. 15. Eliquis 5 mg p.o. b.i.d. 16. Tylenol 650 mg p.o. q.4 hours p.r.n. pain or fever. 17. Nitroglycerin 0.4 mg sublingual q.5 minutes p.r.n. chest pain. 18. Nystatin powder topical to inguinal folds t.i.d. New medications: 1. Aldactone 25 mg p.o. daily. 2. Metoprolol succinate 50 mg p.o. b.i.d. 3. Levothyroxine 12.5 mcg p.o. daily at 6 a.m. Medication change: Amiodarone was increased to 200 mg p.o. every other day alternating with 300 mg p.o. every other day. Coreg was discontinued. HOSPITAL COURSE: Ms. Sherwood is an 87-year-old lady with a past medical history as stated above that was admitted to [facility] from 05/04/18 to 08/27. At that point, the patient had a fall with a left hip pain. On 04/24/18 , she had had a mechanical fall with a right radial head fracture. During the admission, the patient had an ORIF of the left hip on 05/07/[address] Calvillo, so she was discharged to [facility] on 05/14/18 for rehab. She presented again to the emergency room on 06/05/18 with complaints of palpitations and shortness of breath. Initially in the emergency room, there was a concern that she was having ventricular tachycardia, but it was later on seen that she had atrial fibrillation with aberrancy. She was admitted to the hospital and seen in consultation by Cardiology (Dr. Sherman.) His recommendation was to change her Coreg to metoprolol for better rate control and symptom relief. Digoxin had also been added to her regimen for rate control. As her AFib persisted, the patient was cardioverted by Dr. Cisneros on 06/09/18 and the patient has remained in sinus rhythm. After the cardioversion, the digoxin was discontinued. This is the patient's second cardioversion in [address] Cisneros recommended increasing her amiodarone to 200 mg alternating with 300 mg every other day and he is planning to see her in followup in the next 2 to 3 weeks. The patient was also noted to have urinary retention and had a Jerez catheter placed. This was removed and we did frequent bladder scanning, but she still had PVR greater than 200. She was straight cath'd, but due to her right wrist fracture, she would not be able to straight cath herself. The night prior to discharge, the patient had a bladder scan that showed greater than 800 mL of residual and after straight cath, more than a liter of urine was returned. The plan is to have the Jerez catheter replaced and I suspect she may already have a component of neurogenic bladder since she could tolerate more than a liter in her bladder with no symptoms. If she is unable to be without Jerez catheter, she will need Urology evaluation as outpatient. The patient was also found to have a TSH elevation at 6.71 with free T4 0.95 and a free T3 of 2.3. The impression was that she has mild hypothyroidism associated with her amiodarone and she was started on low-dose levothyroxine and the plan is to repeat her thyroid function test in 4 to 6 weeks. The patient had resolution of her palpitation. She denies chest pain or shortness of breath and she was thought to be medically stable. She will return to [facility] to continue her rehabilitation process. The patient did have exertional symptomatic dizziness associated with sinus bradycardia in 2006, but this was prior to her SA node vessel being revascularized. Her fall prior to admission was thought to be a mechanical fall and not syncopal, so Dr. Sherman felt that the patient would be safe to be on a beta emmett. PHYSICAL EXAMINATION: Vital Signs: Temperature 98.6, heart rate is 58, respiratory rate is 17, oxygen saturation 98% on room air, blood pressure is 147 /48. General: The patient is a pleasant elderly obese lady, lying in bed, in no acute distress. HEENT: Pupils are equal. Moist mucous membranes. CVS: Normal S1, S2. Regular rate and rhythm. Chest: Breath sounds bilaterally with no added sounds. Abdomen is obese. Bowel sounds are present. Extremities : There is trace edema. No calf tenderness. Neuro: She is alert and oriented x3. Able to move all 4 extremities. DIET: Heart-healthy diet. ACTIVITIES: As tolerated. DISPOSITION: To [facility]. STATUS WHILE IN THE HOSPITAL: Inpatient. CONDITION AT THE TIME OF DISCHARGE: Fair. Please keep in mind that this is a summarized version of this patient's hospital stay. If you need more information, please feel free to call me at [phone] or please obtain the full medical records. TIME SPENT: Approximately 50 minutes was spent to complete this discharge. [id number]/[facility] #: [id number] MTDD
== END 2018-06-10 15:00 | DRG 309 ==
LOC: ED 06:36 → ICU 08:25 → MEDTELE 16:45
PROVIDERS: ADMIT Internal Medicine Critical Care Medicine; ATTEND Internal Medicine
PROC: 5A2204Z Restoration of Cardiac Rhythm, Single (ICD-10-PCS; principal; 2018-06-05)
PROC: 0TPB70Z Removal of Drainage Device from Bladder, Via Natural or Artificial Opening (ICD-10-PCS; 2018-06-09)
DX: I48.0 Paroxysmal atrial fibrillation (principal); D62 Acute posthemorrhagic anemia; I50.32 Chronic diastolic (congestive) heart failure; I13.0 Hypertensive heart and chronic kidney disease with heart failure and stage 1 through stage 4 chronic kidney disease, or unspecified chronic kidney disease; E03.9 Hypothyroidism, unspecified; N18.3 Chronic kidney disease, stage 3 (moderate); I25.10 Atherosclerotic heart disease of native coronary artery without angina pectoris; E66.9 Obesity, unspecified; D63.1 Anemia in chronic kidney disease; E78.00 Pure hypercholesterolemia, unspecified; I73.9 Peripheral vascular disease, unspecified; M19.90 Unspecified osteoarthritis, unspecified site; E78.5 Hyperlipidemia, unspecified; N31.9 Neuromuscular dysfunction of bladder, unspecified; T46.2X5A Adverse effect of other antidysrhythmic drugs, initial encounter; R33.9 Retention of urine, unspecified; Z96.1 Presence of intraocular lens; R31.9 Hematuria, unspecified; K58.9 Irritable bowel syndrome, unspecified; J42 Unspecified chronic bronchitis; R42 Dizziness and giddiness; I49.3 Ventricular premature depolarization; Z91.81 History of falling; Z95.2 Presence of prosthetic heart valve; Y92.9 Unspecified place or not applicable; I25.2 Old myocardial infarction; Z95.5 Presence of coronary angioplasty implant and graft; Z68.38 Body mass index [BMI] 38.0-38.9, adult; Z88.8 Allergy status to other drugs, medicaments and biological substances; Z79.82 Long term (current) use of aspirin; Z79.01 Long term (current) use of anticoagulants; Z98.42 Cataract extraction status, left eye; Z82.49 Family history of ischemic heart disease and other diseases of the circulatory system; Z98.41 Cataract extraction status, right eye; Z82.3 Family history of stroke
CPT/HCPCS: 36415; 71045; 80048; 80053; 81003; 81015; 82550; 82553; 83605; 83735; 83880; 84439; 84443; 84479; 84481; 84484; 85025; 85610; 85730; 87077; 87086; 87186; 87641; 92960; 93005; 99156; 99157; 99285; A9270-GY; G8978-GP-CK; G8979-GP-CI; G8979-GP-CJ; J1160; J2250; J2310; J3010; J3475; J3490

== ENCOUNTER 2018-07-03 18:14 | Inpatient (IN) | payer MEDICARE ==
--- OUTSIDE RECORDS SUMMARY | 2018-07-03 18:49 | XMS REPORT | Continuity of Care Document ---
:1930 External Reference #:[id number] Author Name Lita Acevedo Care Team Providers Name Role Phone Susy Quevedo MD Primary Care Physician Unavailable Payers Date Identification Numbers Payment Provider Subscriber Policy Number: [id number] [employer] Veronica Bhat Group Number: [id number] [address] PayID: [id number] [place] [address] Effective: 1995 Policy Number: [id number] Medicare Elizabeth Churey Expires: 2017 PayID: [id number] [address] [place] [address] Advance Directives Description No Information Available Problems Active Problems Provider Date Aortic valve disorder Talib Cisneros M.D. Onset: 03/19/2013 Atrial fibrillation Talib Cisneros M.D. Onset: 03/19/2013 Conduction disorder of the heart Talib Cisneros M.D. Onset: 03/19/2013 Family History Date Family Member(s) Observation Comments [...] Patient has never smoked Smoking Status Reviewed: 07/03/18 Patient has never smoked Exercise Type/Frequency Exercises rarely Currently Active Patient is currently not sexually active Allergies, Adverse Reactions, Alerts Description No Known Drug Allergies Medications Active Medications SIG Qnty Indications Ordering Date Provider Magnesium Oxide -MG 1 tab by mouth 2x 60caps I48.91 Ashley Martinez, 2018 Supplement daily N.P. 400mg Capsules Amiodarone HCL 1 by mouth every Talib D. 05/29/2017 200mg day Sandoval Cisneros Tablets Eliquis 1 by mouth twice a 180tabs Talib D. 10/17/2016 5mg Tablets day Sandoval Cisneros Nitroglycerin 1 sl q5mins x3 as 25tabs Talib DCasey 10/17/2016 0.4mg needed for chest Sandoval Cisneros Tablets Sub pain Potassium Chloride ER 2 tabs by mouth 90tabs Talib D. 06/04/2012 daily Sandoval Cisneros 10Meq Tablets ER Carvedilol 1 po bid 180tabs Talib D. 06/04/2012 3.125mg Sandoval Cisneros Tablets Oxycodone-Acetaminoph 1 tabs by mouth Unknown en every 4-6 hours as 5-325mg Tablets needed for pain Atorvastatin Calcium 1 by mouth every Unknown day 40mg Tablets Cyanocobalamin take one Unknown 1000mcg capsule/tablet Tablets Sub daily sublingually Calcium 600 + D 2 tablet po daily 60tabs Unknown [id number] Tablets Colace 1 po tid 180caps Unknown 100mg Capsules Folic Acid 1 po qd 90tabs Unknown 1mg Tablets Ferrous Sulfate 1 po qd 30tabs Unknown 325(65Fe) mg Tablets One Daily For Women 1 po qd Unknown 50+A Dvanced Women 50 Tablets Aspirin 1 po qd Unknown 81mg Tablets Furosemide 2 tabs by mouth for Stevanovic, 40mg Tablets 3 days then return MD Susy to 1 tab by mouth daily History Medications Suprep Bowel Prep Kit take according to 1yuan Harris 01/10/2018 - your physician's MD Mickey 04/24/2018 17.5-3.13-1.6GM/177ML instructions the Solution day before your procedure. split the dose as directed. Magnesium Citrate Drink the entire 296ml David WylieCasey 01/10/2018 - 1.745GM/30ML bottle after MD Mickey 04/24/2018 Solution dinner two days before your procedure. Clopidogrel Bisulfate 1 by mouth every 180tabs Talib Medrano 10/17/2016 - 75mg day Sandoval Cisneros 04/09/2017 Tablets Amlodipine Besylate 1 po qd 90tabs Talib D. 06/04/2012 - 5mg Tablets Sandoval Cisneros 03/12/2013 Warfarin Sodium 1-2 po daily as 180tabs Talib Medrano 04/28/2012 - 2mg Tablets directed Sandoval Cisneros 10/17/2016 Ketoconazole 1 application 30gm Sae, 07/22/2009 - 2% Cream daily Sandoval Jain 03/12/2013 Anusol-HC apply tid prn 30grams Sae 04/06/2009 - 2.5% Cream Sandoval Jain 03/18/2013 Benefiber 1 table spoon in 1jar 565.0 Sae, 03/29/2009 - Powder 1 liter of water Sandoval Jain 03/11/2013 bid Analpram-HC 1 application tid 1tube 565.0 Sae 03/29/2009 - 1-1% Cream Sandoval Jain 04/06/2009 Amlodipine Besylate 1 by mouth every Unknown - 5mg Tablets day 05/30/2018 Amiodarone HCL 2 by mouth every Unknown - 100mg Tablets day 05/29/2017 Vitamin B-12 2 by mouth every 30tabs Unknown - 500mcg Tablets day 04/24/2018 Meloxicam 1 qd prn pain 30tabs Unknown - 7.5mg Tablets 11/27/2014 Cyanocobalamin 1.0 cc im q month 25ml Unknown - 1000mcg/ML 01/13/2014 Solution Amiodarone HCL 1/2 tab po qd 30tabs Unknown - 200mg Tablets 04/09/2017 Amlodipine Besylate 2 po qd (no Stevanoeulogio, - 2.5mg Tablets longer taking) MD Susy 04/09/2017 Asa 1 po qd 100units Sae, - 325mg Sandoval Jain 03/12/2013 Niaspan ER 1 tablet po qday 90tabs Sae, - 500mg Tablets ER Sandoval Jain 10/13/2015 Simvastatin 1 po qhs 90tabs Sae, - 40mg Tablets Sandoval Jain 05/27/2018 Propranolol ER 1 po qday 90tabs Sae, - 80mg Tablets Sandoval Jain 03/12/2013 Lisinopril 1 po qd 90tabs Stevkiel, - 5mg Tablets Sandoval Jain 01/13/2014 Chlorothiazide 1 po qday 90tabs Sae, - 500mg Tablets Sandoval Jain 03/12/2013 Immunizations Description No Information Available Vital Signs Date Vital Result Comment 07/03/2018 10:12am Height 66 inches 5'6" Heart Rate 65 /min BP Systolic 126 mmHg BP Diastolic 70 mmHg Respiratory Rate 18 /min Body Temperature 98.0 F Pain Level 3 05/30/2018 11:38am Height 66 inches 5'6" Weight 236.00 lb Heart Rate 60 /min BP Systolic Standing 140 mmHg lue large cuff BP Diastolic Standing 74 mmHg lue large cuff Respiratory Rate 14 /min BMI (Body Mass Index) 38.1 kg/m2 Ejection Fraction greater t% echo. 05/04/18 05/27/2018 1:11pm Height 66 inches 5'6" Weight [...] Result H/L Range Note Laboratory test 02/21/2018 [facility] Surgical SEE RESULT [address] [place] [address] [phone] Laboratory test 12/28/2014 [facility] Inr/Protime 3.66 High 0.78-1.[address] [place] [address] [phone] CBC Auto Diff 12/28/2014 [facility] White Blood 4.9 10^3/uL N 4.8-10.[address] [place] [address] [phone] Red Blood Count 3.83 10^6/uL Low 4.0-5.4 [...] % 0 N Comp Metabolic Panel 12/28/2014 [facility] Sodium 133 mmol/L N 133-[address] [place] [address] [phone] Potassium 3.6 mmol/L N 3.5-5.0 Chloride 98 [...] 40.1 N >60 2 Laboratory test 12/28/2014 [facility] Magnesium 1.8 mg/dL Low 1.9-2.[address] [place] [address] [phone] Troponin-I (TnI) 0.00 ng/mL N <0.03 3 TSH (Thyroid Stim Horm) 2.86 ?IU/mL N 0.34-5.60 Basic Metabolic Panel 01/25/2014 [facility] Sodium 138 mmol/L N 133-[address] [place] [address] [phone] Potassium 2.7 mmol/L Low 3.5-5.0 5 Chloride 97 mmol/L Low 101-111 Co2 Carbon Dioxide 30 mmol/L N 22-32 Anion Gap 11 mmol/L N 2-11 Glucose 136 mg/dL High 70-100 Blood Urea Nitrogen 27 mg/dL High 6-24 Creatinine 1.68 mg/dL High 0.51-0.95 BUN/Creatinine Ratio 16.1 N 8-20 Calcium 8.8 mg/dL N 8.6-10.3 Egfr Non- 29.1 N >60 Egfr 37.4 N >60 6 Inr/Protime 01/25/2014 [facility] Inr 2.32 High 0.85-1.[address] [place] [address] [phone] CBC No Diff 01/25/2014 [facility] White Blood 5.3 10^3/uL N 4.8-10.[address] [place] [address] [phone] Red Blood Count 3.37 10^6/uL Low 4.0-5.4 Hemoglobin 10.5 g/dL Low 12.0-16.0 Hematocrit 33 % Low 35-47 Mean Corpuscular Volume 97 fL N 80-97 Mean Corpuscular Hemoglobin 31 pg N 27-31 Mean Corpuscular HGB Conc 32 g/dL N 31-36 Red Cell Distribution Width 15 % N 10.5-15 Platelet Count 131 10^3/uL Low 150-450 Mean Platelet Volume 7 um3 Low 7.4-10.4 Laboratory test 01/25/2014 [facility] TSH (Thyroid 2.83 N 0.34 -5.[address] Stimulating IU/[place] [address] Horm) [phone] Laboratory test 12/07/2013 [facility] Inr 1.89 High 0.85-1.06 [place] [address] [phone] Laboratory test 08/24/2013 [facility] Inr 1.99 High 0.85-1.[address] [place] [address] [phone] Laboratory test 07/27/2013 [facility] Inr 1.96 High 0.85-1.[address] [place] [address] [phone] Laboratory test 07/06/2013 [facility] Inr 1.82 High 0.85-1.[address] [place] [address] [phone] Laboratory test 06/08/2013 [facility] Inr 3.57 High 0.85-1.[address] [place] [address] [phone] Laboratory test 05/25/2013 [facility] Inr 1.63 High 0.85-1.[address] [place] [address] [phone] Laboratory test 04/27/2013 [facility] Inr 2.48 High 0.85-1.[address] [place] [address] [phone] Laboratory test 03/30/2013 [facility] Inr 2.02 High 0.85-1.[address] [place] [address] [phone] Inr/Protime 03/02/2013 Inr 2.05 High 0.85-1.06 7 Laboratory test 02/02/2013 [facility] Inr 2.31 High 0.85-1.06 [address] [place] [address] [phone] Laboratory test 01/05/2013 [facility] Inr 2.30 High 0.87-0.[address] [place] [address] [phone] Laboratory test 12/08/2012 [facility] Inr 2.67 High 0.87-0.[address] [place] [address] [phone] Laboratory test 11/11/2012 [facility] Inr 2.42 High 0.87-0.[address] [place] [address] [phone] Laboratory test 10/20/2012 [facility] Inr 2.22 High 0.87-0.[address] [place] [address] [phone] Laboratory test 10/06/2012 [facility] Inr 1.82 High 0.87-0.[address] [place] [address] [phone] Laboratory test 09/22/2012 [facility] Inr 1.69 High 0.87-0.[address] [place] [address] [phone] Laboratory test 08/25/2012 [facility] Inr 1.89 High 0.87-0.[address] [place] [address] [phone] Laboratory test 07/28/2012 [facility] Inr 2.25 High 0.87-0.[address] [place] [address] [phone] Laboratory test 06/30/2012 [facility] Inr 2.30 High 0.87-0.[address] [place] [address] [phone] Laboratory test 06/09/2012 [facility] Inr 1.83 High 0.87-0.97 [address] [place] [address] [phone] CBC With Manual 05/01/2010 [facility] White Blood 5.7 CUMM 4.8-10.[address] [place] [address] [phone] Red Cell Count 3.29 CUMM Low 4.2-5.4 [...] 3.5 Anisocytosis SLIGHT Ovalocytes FEW Laboratory 05/01/2010 [facility] Methylmalonic 0.43 Abnormal < =0.[address] Acid nmol/mL [place], [place] 9[address]3745 [phone] Vitamin D,25 11/07/2009 [facility] 25-Hydroxy <4.0 () Hydroxy DRIVE Vitamin D2 ng/mL [place], [place] 1283904 [phone] 25-Hydroxy Vitamin D3 27 ng/mL () 25-Hydroxy Vitamin D Total 27 ng/mL () 11 Vitamin D 1,25 11/07/2009 [facility] Vitamin D, 1,25 51 pg/mL 18-[address] Dihydroxy D,2 [place], [place] 42[address]130 [phone] Vitamin B12 11/07/2009 [facility] Vitamin B12 300 pg/mL 180- [address] Serum [place], [place] [address] [phone] Folic Acid 14.1 NG/ML 2-16 Laboratory test 11/07/2009 [facility] Ferritin 55 NG/ML 11.0- [address] [place], [place] 47[address] [phone] Iron And Tibc 11/07/2009 [facility] Iron Total 72 g/dL 28- [address] [place] [address] [phone] Unsaturated Iron Binding 270 g/dL Total Iron Binding Capacity 342 g/dL 250-450 % Iron Saturation 21 % 15-55 CBC W/Electronic 11/07/2009 [facility] White Blood 7.1 CUMM 4.8-10.[address] [place] [address] [phone] Red Cell Count 3.43 CUMM Low 4.2-5.4 [...] Eosinophils 0.1 0-0.6 Abs Basophils 0 0-0.2 Urinalysis W/Microscopic 06/09/2009 [facility] Ua Color YELLOW Yellow [address] [place] [address] [phone] Appearance-Urine CLEAR Clear Specific Boyd-Ur 1.022 1.010-1.030 Esterase-Urine TRACE Abnormal Negative Nitrite NEGATIVE Negative [id number] NEGATIVE Negative Protein-Urine NEGATIVE Negative PH-Urine 5.5 5-9 Blood-Urine NEGATIVE Negative Ketones-Urine NEGATIVE Negative Bilirubin-Ur NEGATIVE Negative Glucose-Urine NEGATIVE Negative WBC-Urine 0-2 0-5 RBC-Urine 0-2 0-2 Lipid Profile 06/09/2009 [facility] Triglyceride 74 mg/dL 40- 200 (Trig/Chol/HDL) [address] [place] [address] [phone] Cholesterol 172 mg/dL Less Than 200 13 High Density Lipoprotein 48 mg/dL 40-60 14 Cholesterol/HDL Ratio 3.58 AVERAGE 1-4.44 Low Density Lipoprotein 109 mg/dL High Less Than 100 15 Laboratory test 06/09/2009 [facility] TSH 1.24 MIU/ML 0.34- 5.60 finding [address] [place] [address] [phone] Comp Metabolic 06/09/2009 [facility] Sodium 137 mmol/L 135- [address] [place] [address] [phone] Potassium 4.1 mmol/L 3.5-5.0 Chloride 105 mmol/L [...] 69.0 > 60 20 CBC With 06/09/2009 [facility] White Blood 7.4 CUMM 4.8-10.8 Electronic Diff [address] [place] [address] [phone] Red Cell Count 3.51 CUMM Low 4.2-5.4 [...] [address]: David Arevalo MD Acct: [id number] Unit: [id number] AGE: 87 Location: ENDO Re02/21/18 SEX: F Status: DEP REF SPEC: [id number] LACEY: 02/21/18-[address] [facility] [address]: David Arevalo MD REQ: [id number] RECD: 02/21/18 STATUS: RY CARDENAS DR: Susy [...] 1302 END OF REPORT DEPARTMENT OF PATHOLOGY, [address] [place] [address] Brendon Nicole M.D. Director [facility] # [id number] 2 Because ethnic data is not always [...] 0.03 ng/mL Not supportive of diagnosis of HI 0.03 - 0.50 ng/mL Indeterminate: suggest serial studies if clinically indicated. Greater than 0.5 ng/mL Consistent with diagnosis of HI 4 CALL RESULTS TO 4591 5 Critical Result K:2.7 Called to [id number] at: 10:42:59 by: Read back by:[id number] Potassium reference range changed effective 01/10/14 6 [...] of vitamin B12 deficiency. Test Performed by: [facility] Dpt of Lab Med and Pathology [address] [place] [address] Furniture Stainer: Simba Duarte III, M.D. 11 -- REFERENCE VALUE -- 25-HYDROXY D TOTAL (D2+D3) Optimum levels in the normal population are 25-80 Test Performed by: [facility] Dpt of Lab Med and Pathology [address] [place] [address] Furniture Stainer: Simba Duarte III, M.D. 12 Test Performed by: [facility] Dpt of Lab Med and Pathology [address] [place] [address] Furniture Stainer: Simba Duarte III, M.D. 13 CHOLESTEROL INTERPRETATION: [...] change was based on recommendations from the [place] [employer]. 18 Please note change in reference range effective 07 . 19 A metabolite of Naproxen, O-desmethylnaproxen, has been shown to interfere with the Jendrassik-Worthing method for measuring total bilirubin. Samples from [...] (or dialysis) Procedures Date Code Description Status 06/09/2018 57766 Cardioversion Completed 05/30/2018 22089 EKG Tracing & Interpretation Completed 05/06/2018 19794 Open TX Of Femoral FX,Promimal End,Neck Internal Completed Fixation 05/06/2018 56294 Open TX Of Femoral FX,Promimal End,Neck Internal Completed Fixation 05/06/2018 75380 Open TX Of Femoral FX,Promimal End,Neck Internal Completed Fixation 05/05/2018 31538 ECHO Transthorasic Realtime 2D W Doppler & Color Flow Completed Hosp 05/05/2018 01001 EKG, Interpretation Only Completed 04/25/2018 07388 Short Arm Cast Application Completed 02/21/2018 [id number] Colonoscopy Completed 02/21/2018 90878 Colonoscopy Flexible Remove Tumor/Polyp/Lesion Snare Completed Technique 12/27/2017 59386 EKG Tracing & Interpretation Completed 12/25/2017 38973 Anoscopy Completed 06/20/2017 57237 EKG Tracing & Interpretation Completed 05/28/2017 82723 Cardioversion Completed 04/10/2017 37946 EKG Tracing & Interpretation Completed 03/06/2017 40792 Cardioversion Completed 10/23/2016 37847 EKG Tracing & Interpretation Completed 10/17/2016 91778 EKG, Interpretation Only Completed 10/16/2016 41601 EKG, Interpretation Only Completed 10/15/2016 21583 Cath PLMT&NJX L Ventriculog Img S&I Completed 10/15/2016 59885 EKG, Interpretation Only Completed 10/15/2016 51595 Revascularization Acute Total/Subtotal Occlusion Completed 10/14/2016 19976 EKG, Interpretation Only Completed 10/12/2016 72204 Treadmill Interp/Report Only Completed 10/12/2016 90282 Stress Test Supervsn W/Out I/R Completed 10/11/2016 64956 Cardioversion Completed 10/11/2016 62165 Echocardiogram, Limited Study Completed 09/17/2016 00074 Mobile Cardiovascular Telemetry Over 24 HR Up To 30 Completed Days 09/12/2016 98483 EKG Tracing & Interpretation Completed 08/27/2016 14972 ECHO Transthorasic Realtime 2D W Doppler & Color Flow Completed Hosp 08/27/2016 49826 EKG, Interpretation Only Completed 08/27/2016 18543 Cardioversion Completed 08/26/2016 86581 EKG, Interpretation Only Completed 07/05/2016 35950 ECHO Transthorasic Realtime 2D W Doppler & Color Flow Completed Hosp 10/14/2015 57595 EKG Tracing & Interpretation Completed 08/13/2015 15154 EKG, Interpretation Only Completed 08/13/2015 07490 Cardioversion Completed 01/27/2015 14280 EKG Tracing & Interpretation Completed 12/28/2014 98040 EKG, Interpretation Only Completed 12/28/2014 80997 Cardioversion Completed 03/03/2014 10938 EKG Tracing & Interpretation Completed 01/26/2014 58317 EKG, Interpretation Only Completed 01/26/2014 31149 Cardioversion Completed 01/25/2014 14814 Cardioversion Completed 02/20/2013 63426 ECHO Transthoracic, Real-Time 2D With Doppler And Color Completed Flow 05/27/2012 71372 ECHO Transthoracic, Real-Time 2D With Doppler And Color Completed Flow 05/27/2012 56790 ECHO Transthoracic, Real-Time 2D With Doppler And Color Completed Flow 05/23/2012 72033 Holter Monitoring 24 HR New Completed 04/24/2012 89079 EKG Tracing & Interpretation Completed 01/10/2012 80989 RT & lt Cath W/Injx HRT Art&L Ventr Img S&I Completed 01/01/2012 40781 Carotid Doppler,Bilateral Completed 12/26/2011 53248 Stress Test Completed 04/01/2010 61045 Treadmill Interp/Report Only Completed 04/01/2010 99329 Stress Test Supervsn W/Out I/R Completed 04/21/2009 14089 EKG Tracing & Interpretation Completed 04/19/2009 87171100 Colonoscopy Completed 04/04/2009 41466 EKG, Interpretation Only Completed Encounters Type Date Location Provider Dx Diagnosis Office Visit 06/10/2018 [facility] Rubina Ireland, I48.91 Unspecified atrial 4:48p lo Murcia M.D. fibrillation Hospitalists E03.9 Hypothyroidism, unspecified D64.9 Anemia, unspecified Office Visit 06/09/2018 [facility] Rubina I48.91 Unspecified atrial 9:14a lo Murcia M.D. 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 atrial Hospitalists fibrillation D63.1 Anemia in chronic kidney disease N18.3 Chronic kidney disease, stage 3 (moderate) Office Visit 06/06/2018 3:40p [facility] Jesus Alberto S. 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 fibrillation Office Visit 06/05/2018 10:28a [facility] Jesus Alberto S. 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 I48.91 Unspecified atrial Of Partition Assembler Foster, N.P. fibrillation I10 Essential (primary) hypertension R60.9 Edema, unspecified I50.32 Chronic diastolic (congestive) heart failure Office Visit 05/27/2018 1:00p Orthopedic Aaron F S72.012D Unsp intracap Services Of MD Alex fx left femur, C.M.A. subs for clos fx w routn heal S52.514D Nondisp fx of r radial styloid pro, 7thD Office Visit 05/14/2018 [facility] S72.012A Unsp intracapsular 9:31a lo Murcia M.D. fracture of left Hospitalists femur, init for clos fx D62 Acute posthemorrhagic anemia I48.91 Unspecified atrial fibrillation I10 Essential (primary) hypertension W19.xxxA Unspecified fall, initial encounter [facility] Acute 9:30a lo Murcia MD posthemorrhagic Hospitalists anemia R65.10 Sirs of non-infectious origin w/o acute organ dysfunction N17.9 Acute kidney failure, unspecified I48.91 Unspecified atrial fibrillation S72.002A Fracture of unsp part of neck of left femur, init M79.669 Pain in unspecified lower leg I10 Essential (primary) hypertension Z95.5 Presence of coronary angioplasty implant and graft Office Visit 05/11/2018 [facility] John D62 Acute 9:30a lo Murcia MD posthemorrhagic Hospitalists anemia R65.10 Sirs of non-infectious origin w/o acute organ dysfunction N17.9 Acute kidney failure, unspecified S72.002A Fracture of unsp part of neck of left femur, init I48.91 Unspecified atrial fibrillation I10 Essential (primary) hypertension Z95.5 Presence of coronary angioplasty implant and graft Office Visit 05/10/2018 [facility] D62 Acute 9:29a lo Murcia MD posthemorrhagic Hospitalists anemia R65.10 Sirs of non-infectious origin w/o acute organ dysfunction N17.9 Acute kidney failure, unspecified I48.91 Unspecified atrial fibrillation S72.002A Fracture of unsp part of neck of left femur, init I10 Essential (primary) hypertension Z95.5 Presence of coronary angioplasty implant and graft Office Visit 05/09/2018 [facility] John R65.10 Sirs of 9:29a lo Murcia MD non-infectious Hospitalists origin w/o acute organ dysfunction N17.9 Acute kidney failure, unspecified D62 Acute posthemorrhagic anemia I48.91 Unspecified atrial fibrillation S72.002A Fracture of unsp part of neck of left femur, init I10 Essential (primary) hypertension Z95.5 Presence of coronary angioplasty implant and graft Office Visit 05/08/2018 [facility] R65.10 Sirs of 9:29a Assoc,lo Ewing D.O. non-infectious Hospitalists origin w/o acute organ dysfunction N17.9 Acute kidney failure, unspecified D62 Acute posthemorrhagic anemia S72.002A Fracture of unsp part of neck of left femur, init I48.91 Unspecified atrial fibrillation I10 Essential (primary) hypertension Z95.5 Presence of coronary angioplasty implant and graft Office Visit 05/07/2018 [facility] R65.10 Sirs of 9:28a Assjose raul,lo Ewing D.O. non-infectious Hospitalists origin w/o acute organ dysfunction N17.9 Acute kidney failure, unspecified S72.002A Fracture of unsp part of neck of left femur, init I48.91 Unspecified atrial fibrillation I10 Essential (primary) hypertension Z95.5 Presence of coronary angioplasty implant and graft Office Visit 05/06/2018 [facility] Rubina R65.11 Sirs of 9:26a Assoc,lo Ireland M.D. non-infectious Hospitalists origin w acute organ dysfunction N17.9 Acute kidney failure, unspecified S72.002A Fracture of unsp part of neck of left femur, init I48.91 Unspecified atrial fibrillation Z95.5 Presence of coronary angioplasty implant and graft Office Visit 05/05/2018 9:26a [facility] Priti S72.002A Fracture of Assoc,lo Keller, DO unsp part of Hospitalists neck of left femur, init R65.10 Sirs of non-infectious origin w/o acute organ dysfunction N17.9 Acute kidney failure, unspecified I35.0 Nonrheumatic aortic (valve) stenosis I48.91 Unspecified atrial fibrillation Z95.5 Presence of coronary angioplasty implant and graft Office Visit 05/05/2018 Orthopedic Ayesha S72.002A Fracture of unsp 10:44a Services Of KIRSTEN Escoto part of neck of left femur, init Office Visit 05/04/2018 [facility] Charlette S72.012A Unsp intracapsular 9:23a Assoc,pc Rooth, DO fracture of left Hospitalists femur, init for clos fx I48.0 Paroxysmal atrial fibrillation W19.xxxA Unspecified fall, initial encounter Office 05/04/2018 [facility] Marianne S72.002A Fracture of Visit 10:44a Of Tal Dailey M.D. unsp part of neck of left femur, init Office 04/25/2018 [facility] Galo S52.514A Nondisp fx of Visit 10:30a Of [facility] AT Tyson MD Tc right radial styloid process, init for clos fx Office 01/09/2018 [facility] Gastroenterology Dinora Venegas, K64.0 First degree Visit 10:00a [employer] hemorrhoids K62.5 Hemorrhage of anus and rectum Office Visit 12/27/2017 10:30a [facility] Talib Medrano I48.0 Paroxysmal atrial Of Nathaniel Cisneros M.D. 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 disease of torres martinez coronary artery w/o ang pctrs I48.0 Paroxysmal atrial fibrillation Office Visit 12/05/2016 10:30a [facility] Talib Medrano I25.10 Athscl heart Of Nathaniel Cisneros M.D. disease of torres martinez coronary artery w/o ang pctrs I10 Essential (primary) hypertension I48.0 Paroxysmal atrial fibrillation Z95.2 Presence of prosthetic heart valve Office Visit 10/23/2016 2:15p [facility] Talib Medrano I25.10 Athscl heart Of [facility] AT [facility] Sandoval Cisneros disease of torres martinez coronary artery w/o ang pctrs I10 Essential (primary) hypertension I48.0 Paroxysmal atrial fibrillation Z95.2 Presence of prosthetic heart valve I25.2 Old myocardial infarction Office Visit 10/17/2016 [facility] Galo I48.91 Unspecified atrial 8:26a lo Murcia M.D. 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 I48.0 Paroxysmal atrial Mauser, M.D. 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 I48.0 Paroxysmal atrial Mauser, M.D. fibrillation I49.5 Sick sinus syndrome I21.4 Non-St elevation (Nstemi) myocardial infarction R94.31 Abnormal electrocardiogram [ECG] [EKG] Office Visit 10/11/2016 2:54p [facility] Harvey F. I48.0 Paroxysmal atrial Mauser, M.D. 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 I10 Essential (primary) Mauser, M.D. hypertension I48.0 Paroxysmal atrial fibrillation I49.5 Sick sinus syndrome Z95.2 Presence of prosthetic heart valve R42 Dizziness and giddiness Office Visit 09/12/2016 8:30a [facility] Talib Medrano I48.0 Paroxysmal atrial Of Partition Assembler Brand, MCaseyD. fibrillation I10 Essential (primary) hypertension Z95.2 Presence of prosthetic heart valve Office 08/27/2016 [facility] Kushal I48.91 Unspecified Visit 2:01p Assoc,pc KIRSTEN Montero atrial Hospitalists fibrillation R74.8 Abnormal levels of other serum enzymes Z95.2 Presence of prosthetic heart valve I10 Essential (primary) hypertension Office Visit 08/26/2016 10:02a [facility] Harvey Saldana I48.0 Paroxysmal atrial MauseSandoval chavez fibrillation I10 Essential (primary) hypertension R79.89 Other specified abnormal findings of blood chemistry Office Visit 08/26/2016 2:00p [facility] Patricia June, I48.91 Unspecified atrial Assoc,pc N.PCasey fibrillation Hospitalists R74.8 Abnormal levels of other serum enzymes Z95.2 Presence of prosthetic heart valve I10 Essential (primary) hypertension Office Visit 07/04/2016 2:37p [facility] Brent Lincoln, R55 Syncope and Assoc,lo Nick collapse Hospitalists I48.91 Unspecified atrial fibrillation 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 M.D. knee M17.0 Bilateral primary osteoarthritis of knee Office Visit 10/14/2015 11:45a [facility] Talib D. I48.1 Persistent atrial Of Nathaniel Cisneros M.D. fibrillation I10 Essential (primary) hypertension I35.0 Nonrheumatic aortic (valve) stenosis Z95.2 Presence of prosthetic heart valve Office Visit 08/13/2015 12:49p [facility] Talib Medrano I48.1 Persistent atrial Of Nathaniel Cisneros M.D. fibrillation Z95.2 Presence of prosthetic heart valve Office Visit 08/13/2015 [facility] Brent Lincoln, I48.91 Unspecified atrial 10:31a Assoclo M.D. 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 fibrillation Z95.2 Presence of prosthetic heart valve R94.31 Abnormal electrocardiogram [ECG] [EKG] Office Visit 12/29/2014 3:53p [facility] Nicole Guerra, R42 Dizziness and Assoc,pc Sandoval bravo Hospitalists I48.91 Unspecified atrial fibrillation E78.2 Mixed hyperlipidemia I10 Essential (primary) hypertension Office Visit 12/28/2014 3:52p [facility] Leonardo Jensen, R42 Dizziness and Assoc,pc Bebo bravo Hospitalists I48.91 Unspecified atrial fibrillation I10 Essential (primary) hypertension E78.2 Mixed hyperlipidemia Office Visit 08/13/2014 1:30p [facility] Talib D. 427.31 Atrial Of Nathaniel Cisneros M.D. Fibrillation 424.1 Aortic Valve Disorder Office Visit 03/03/2014 9:45a [facility] Talib Medrano 427.31 Atrial Of Nathaniel Cisneros M.D. Fibrillation 424.1 Aortic Valve Disorder Office Visit 01/26/2014 11:20a [facility] Talib Medrano 427.31 Atrial Of Nathaniel Cisneros M.D. Fibrillation Office Visit 01/22/2014 2:15p [facility] Talib D. 424.1 Aortic Valve Of Nathaniel Cisneros M.D. Disorder 427.31 Atrial Fibrillation 401.9 Hypertension Unspec Office Visit 03/19/2013 10:00a [facility] Talib Medrano 424.1 Aortic Valve Of Nathaniel Cisneros M.D. Disorder 427.31 Atrial Fibrillation 427.9 Cardiac Dysrhythmia Unspec Office Visit 11/06/2012 1:00p [facility] Talib Medrano 424.1 Aortic Valve Of Nathaniel Cisneros M.D. Disorder 427.31 Atrial Fibrillation 401.9 Hypertension Unspec Office Visit 05/29/2012 1:45p [facility] Talib D. 424.1 Aortic Valve Of Nathaniel Cisneros M.D. Disorder 427.31 Atrial Fibrillation Office Visit 04/24/2012 12:00p [facility] Talib Medrano 424.1 Aortic Valve Of Nathaniel Cisneros M.D. Disorder 427.31 Atrial Fibrillation Office Visit 01/23/2012 11:30a [facility] Medrano 786.09 Dyspnea & Cardiology Of Sandoval Cisneros Respiratory Partition Assembler Abnormalities Other 424.1 Aortic Valve Disorder Office Visit 01/09/2012 8:00a [facility] Talib Medrano 786.50 Pain Chest Of Nathaniel Cisneros M.D. Unspec 424.1 Aortic Valve Disorder Office 04/02/2010 [place] Qunanette S. 794.31 Electrocardiogram Visit 9:17a Cardiology Sandoval Lees (ECG) (EKG) Abnormal 427.31 Atrial Fibrillation 424.1 Aortic Valve Disorder 401.1 Hypertension Benign Office Visit 04/01/2010 9:17a [facility] Cash SCasey 786.50 Pain Chest Sandoval Lees Unspec 427.31 Atrial Fibrillation 424.1 Aortic Valve Disorder 401.1 Hypertension Benign Office Visit 07/22/2009 2:00p DO Not Use Partition Assembler Jarvisanoeulogio, 401.1 Hypertension AT Becky Jain M.D. 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 Sae, 455.2 Hemorrhoids 10:00a AT Becky Jain M.D. 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 Plan of Treatment Future Appointment(s):07/17/2018 10:15 am - Aaron Johnson MD at [facility]07/25/2018 11:45 am - Talib Cisneros M.D. at [facility]
--- OUTSIDE RECORDS SUMMARY | 2018-07-03 18:50 | XMS REPORT | Continuity of Care Document ---
:1930 External Reference #:[id number] Author Name Nancy Johnsonecca Care Team Providers Name Role Phone Susy Quevedo MD Primary Care Physician Unavailable Payers Date Identification Numbers Payment Provider Subscriber Policy Number: [id number] [employer] Veronica Bhat Group Number: [id number] [address] PayID: [id number] [place] [address] Effective: 1995 Policy Number: [id number] Medicare Veronica Bhat Expires: 2017 PayID: [id number] [address] [place] [address] Advance Directives Description No Information Available Problems [...] Patient has never smoked Smoking Status Reviewed: 05/30/18 Patient has never smoked Exercise Type/Frequency Exercises rarely Currently Active Patient is currently not sexually active Allergies, Adverse Reactions, Alerts Description No Known Drug Allergies Medications Medication Date Status Form Strength Qnty SIG Indications Ordering Provider Magnesium Oxide 05/30 Active Capsules 400mg 60cap 1 tab by I48.91 Ashley S. -MG Supplement s mouth 2x Foster, daily N.P. Amiodarone HCL 05/29 Active Tablets 200mg 1 by mouth Talib every day Marcela Cisneros M.D. Eliquis 10/17 Active Tablets 5mg 180ta 1 by mouth Talib bs twice a day Marcela Cisneros M.D. Nitroglycerin 10/17 Active Tablets 0.4mg 25tab 1 sl q5mins Talib Sub s x3 as needed Marcela Cisneros for chest Sandoval pain Potassium 06/04 Active Tablets 10Meq 90tab 2 tabs by Talib Chloride ER s mouth daily Marcela Cisneros M.D. Carvedilol 06/04 Active Tablets 3.125mg 180ta 1 po bid bs Marcela Cisneros M.D. Furosemide Active Tablets 40mg 2 tabs by Stevanovi / mouth for 3 c, days then Radomir, return to 1 MD tab by mouth daily Aspirin Active Tablets 81mg 1 po qd [...] Cyanocobalamin Active Tablets 1000mcg take one Unknown / Sub capsule/table t daily sublingually Atorvastatin Active Tablets 40mg 1 by mouth Unknown Calcium /0000 every day Oxycodone-Acetam Active Tablets 5-325mg 1 tabs by Unknown inophen /0000 mouth every 4-6 hours as needed for pain Suprep Bowel 01/10 Hx Solution 17.5-3.13 1unit take Peter T. Prep Kit -1.6GM/17 s according to Mickey, Omar 7ML your 04/24 physician's instructions the day before your procedure. split the dose as directed. Magnesium 01/10 Hx Solution 1.745GM/3 296ml Drink the Peter T. Citrate 0ML entire bottle Mickey, - after [...] 07/22 Hx Cream 2% 30gm 1 application daily c, - Radomir, 03/12.D. Anusol-HC 04/06 Hx Cream 2.5% 30gra apply tid prn ms c, - Radomir, 03/18.D. Benefiber 03/29 Hx Powder 1jar 1 table spoon 565.0 in 1 liter of c, - water bid Radomir, 03/11.D. Analpram-HC 03/29 Hx Cream 1-1% 1tube 1 application 565.0 tid c, - Radomir, 04/06 M.D. Chlorothiazide Hx Tablets 500mg 90tab 1 po qday Stevanovi /0000 s c, - Radomir, 03/12.D. Lisinopril Hx Tablets 5mg 90tab 1 po qd Stevanovi /0000 s c, - Radomir, 01/13.D. Propranolol ER Hx Tablets 80mg 90tab 1 po qday Stevanovi /0000 s c, - Radomir, 03/12 M.D. Simvastatin /00 Hx Tablets 40mg 90tab 1 po qhs [...] mouth Unknown /0000 every day - 05/29 Amlodipine 00/ Hx Tablets 5mg 1 by mouth Unknown Besylate /0000 every day - 05/30 Immunizations Description No Information Available Vital Signs Date Vital Result Comment 05/30/2018 11:38am Height 66 inches 5'6" Weight [...] Result H/L Range Note Laboratory test 02/21/2018 [facility] Surgical SEE RESULT [address] [place] [address] [phone] Laboratory test 12/28/2014 [facility] Inr/Protime 3.66 High 0.78-1.[address] [place] [address] [phone] CBC Auto Diff 12/28/2014 [facility] White Blood 4.9 10^3/uL N 4.8-10.[address] [place] [address] [phone] Red Blood Count 3.83 10^6/uL Low 4.0-5.4 [...] % 0 N Comp Metabolic Panel 12/28/2014 [facility] Sodium 133 mmol/L N 133-[address] [place] [address] [phone] Potassium 3.6 mmol/L N 3.5-5.0 Chloride 98 [...] 40.1 N >60 2 Laboratory test 12/28/2014 [facility] Magnesium 1.8 mg/dL Low 1.9-2.7 finding [address] [place] [address] [phone] Troponin-I (TnI) 0.00 ng/mL N <0.03 3 TSH (Thyroid Stim Horm) 2.86 ?IU/mL N 0.34-5.60 Laboratory test 01/25/2014 [facility] TSH (Thyroid 2.83 IU/mL N 0.34-5.[address] [place] [address] Horm) [phone] CBC No Diff 01/25/2014 [facility] White Blood 5.3 N 4.8-10.8 4 [address] [facility] Count 10^3/[place] [address] [phone] Red Blood Count 3.37 10^6/uL Low 4.0-5.4 Hemoglobin 10.5 g/dL Low 12.0-16.0 Hematocrit 33 % Low 35-47 Mean Corpuscular Volume 97 fL N 80-97 Mean Corpuscular Hemoglobin 31 pg N 27-31 Mean Corpuscular HGB Conc 32 g/dL N 31-36 Red Cell Distribution Width 15 % N 10.5-15 Platelet Count 131 10^3/uL Low 150-450 Mean Platelet Volume 7 um3 Low 7.4-10.4 Inr/Protime 01/25/2014 [facility] Inr 2.32 High 0.85-1.[address] [place] [address] [phone] Basic Metabolic 01/25/2014 [facility] Sodium 138 mmol/L N 133- 145 Panel [address] [place] [address] [phone] Potassium 2.7 mmol/L Low 3.5-5.0 5 Chloride 97 mmol/L Low 101-111 Co2 Carbon Dioxide 30 mmol/L N 22-32 Anion Gap 11 mmol/L N 2-11 Glucose 136 mg/dL High 70-100 Blood Urea Nitrogen 27 mg/dL High 6-24 Creatinine 1.68 mg/dL High 0.51-0.95 BUN/Creatinine Ratio 16.1 N 8-20 Calcium 8.8 mg/dL N 8.6-10.3 Egfr Non- 29.1 N >60 Egfr 37.4 N >60 6 Laboratory 12/07/2013 [facility] Inr 1.89 High 0.85-1.06 test finding [address] [place] [address] [phone] Laboratory 08/24/2013 [facility] Inr 1.99 High 0.85-1.06 test finding [address] [place] [address] [phone] Laboratory 07/27/2013 [facility] Inr 1.96 High 0.85-1.06 test finding [address] [place] [address] [phone] Laboratory 07/06/2013 [facility] Inr 1.82 High 0.85-1.06 test finding [address] [place] [address] [phone] Laboratory 06/08/2013 [facility] Inr 3.57 High 0.85-1.06 test finding [address] [place] [address] [phone] Laboratory 05/25/2013 [facility] Inr 1.63 High 0.85-1.06 test finding [address] [place] [address] [phone] Laboratory 04/27/2013 [facility] Inr 2.48 High 0.85-1.06 test finding [address] [place] [address] [phone] Laboratory 03/30/2013 [facility] Inr 2.02 High 0.85-1.06 test finding [address] [place] [address] [phone] Inr/Protime 03/02/2013 Inr 2.05 High 0.85-1.06 7 Laboratory 02/02/2013 [facility] Inr 2.31 High 0.85-1.06 8 test finding [address] [place] [address] [phone] Laboratory 01/05/2013 [facility] Inr 2.30 High 0.87-0.97 test finding [address] [place] [address] [phone] Laboratory 12/08/2012 [facility] Inr 2.67 High 0.87-0.97 test finding [address] [place] [address] [phone] Laboratory 11/11/2012 [facility] Inr 2.42 High 0.87-0.97 test finding [address] [place] [address] [phone] Laboratory 10/20/2012 [facility] Inr 2.22 High 0.87-0.97 test finding [address] [place] [address] [phone] Laboratory 10/06/2012 [facility] Inr 1.82 High 0.87-0.97 test finding [address] [place] [address] [phone] Laboratory 09/22/2012 [facility] Inr 1.69 High 0.87-0.97 test finding [address] [place] [address] [phone] Laboratory 08/25/2012 [facility] Inr 1.89 High 0.87-0.97 test finding [address] [place] [address] [phone] Laboratory 07/28/2012 [facility] Inr 2.25 High 0.87-0.97 test finding [address] [place] [address] [phone] Laboratory 06/30/2012 [facility] Inr 2.30 High 0.87-0.97 test finding [address] [place] [address] [phone] Laboratory 06/09/2012 [facility] Inr 1.83 High 0.87-0.97 9 test finding [address] [place] [address] [phone] Laboratory 05/01/2010 [facility] Methylmalonic 0.43 Abnormal < =0.40 [address] Acid nmol/[place] [address] L [phone] CBC With 05/01/2010 [facility] White Blood 5.7 4.8-10.[address] [place] [address] [phone] Red Cell Count 3.29 CUMM Low 4.2-5.4 [...] Anisocytosis SLIGHT Ovalocytes FEW Vitamin D,25 11/07/2009 [facility] 25-Hydroxy Vitamin <4.0 ng/ mL () Hydroxy [address] [address] [phone] 25-Hydroxy Vitamin D3 27 ng/mL () 25-Hydroxy Vitamin D Total 27 ng/mL () 11 Vitamin D 1,25 11/07/2009 [facility] Vitamin D, 1,25 51 pg/mL 18-78 12 [address] Vitamin [address] Dihydroxy D,2 [place] [address] [phone] Vitamin B12 11/07/2009 [facility] Vitamin B12 300 pg/mL 180- 9[address] [place] [address] [phone] Folic Acid 14.1 NG/ML 2-16 Laboratory test 11/07/2009 [facility] Ferritin 55 NG/ML 11.0- [address] [place] [address] [phone] Iron And Tibc 11/07/2009 [facility] Iron Total 72 g/dL 28- [address] [place] [address] [phone] Unsaturated Iron Binding 270 g/dL Total Iron Binding Capacity 342 g/dL 250-450 % Iron Saturation 21 % 15-55 CBC W/Electronic 11/07/2009 [facility] White Blood 7.1 CUMM 4.8-10.[address] [place] [address] [phone] Red Cell Count 3.43 CUMM Low 4.2-5.4 [...] Abs Basophils 0 0-0.2 Urinalysis W/Microscopic 06/09/2009 [facility] Ua Color YELLOW Yellow [address] [place] [address] [phone] Appearance-Urine CLEAR Clear Specific [place]-Ur 1.022 1.010-1.030 Esterase-Urine TRACE Abnormal Negative Nitrite NEGATIVE Negative Debdycicgasv-Gm-YHD NEGATIVE Negative Protein-Urine NEGATIVE Negative PH-Urine 5.5 5-9 Blood-Urine NEGATIVE Negative Ketones-Urine NEGATIVE Negative Bilirubin-Ur NEGATIVE Negative Glucose-Urine NEGATIVE Negative WBC-Urine 0-2 0-5 RBC-Urine 0-2 0-2 Lipid Profile 06/09/2009 [facility] Triglyceride 74 mg/dL 40- 200 (Trig/Chol/HDL) [address] [place] [address] [phone] Cholesterol 172 mg/dL Less Than 200 13 High Density Lipoprotein 48 mg/dL 40-60 14 Cholesterol/HDL Ratio 3.58 AVERAGE 1-4.44 Low Density Lipoprotein 109 mg/dL High Less Than 100 15 Laboratory test 06/09/2009 [facility] TSH 1.24 MIU/ML 0.34- 5.60 finding [address] [place] [address] [phone] Comp Metabolic 06/09/2009 [facility] Sodium 137 mmol/L 135- 145 Panel [address] [place] [address] [phone] Potassium 4.1 mmol/L 3.5-5.0 Chloride 105 mmol/L [...] 69.0 > 60 20 CBC With 06/09/2009 [facility] White Blood 7.4 CUMM 4.8-10.8 Electronic Diff [address] [place] [address] [phone] Red Cell Count 3.51 CUMM Low 4.2-5.4 [...] [address]: David Arevalo MD Acct: [id number] Unit: [id number] AGE: 87 Location: ENDO Re02/21/18 SEX: F Status: DEP REF SPEC: [id number] LACEY: 02/21/18 [facility] DR: David Arevalo MD REQ: [id number] RECD: 02/21/18 STATUS: RY CARDENAS DR: Susy [...] 1302 END OF REPORT DEPARTMENT OF PATHOLOGY, [address] [place] [address] Brendon Nicole M.D. Director [facility] # [id number] 2 Because ethnic data is not always [...] 0.03 ng/mL Not supportive of diagnosis of TN 0.03 - 0.50 ng/mL Indeterminate: suggest serial studies if clinically indicated. Greater than 0.5 ng/mL Consistent with diagnosis of TN 4 CALL RESULTS TO 4591 5 Critical Result K:2.7 Called to [id number] at: 10:42:59 by: Read back by:[id number] Potassium reference range changed effective 01/10/14 6 [...] B12 deficiency. Test Performed by: [facility] Dpt of Lab Med and Pathology [address] [place] [address] Product Inspection Coordinator: Simba Duarte III, M.D. 11 -- REFERENCE VALUE -- 25-HYDROXY D TOTAL (D2+D3) Optimum levels in the normal population are 25-80 Test Performed by: [facility] Dpt of Lab Med and Pathology [address] [place] [address] Product Inspection Coordinator: Simba Duarte III, M.D. 12 Test Performed by: [facility] Dpt of Lab Med and Pathology [address] [place], [place] [id number] Product Inspection Coordinator: Simba Duarte III, M.D. 13 CHOLESTEROL INTERPRETATION: [...] change was based on recommendations from the [place] [employer]. 18 Please note change in reference range effective 07 . 19 A metabolite of Naproxen, O-desmethylnaproxen, has been shown to interfere with the Jendrassik-Whipp[place] method for measuring total bilirubin. Samples from [...] (or dialysis) Procedures Date Code Description Status 05/30/2018 03694 EKG Tracing & Interpretation Completed 05/06/2018 33862 Open TX Of Femoral FX,Promimal End,Neck Internal Completed Fixation 05/06/2018 75054 Open TX Of Femoral FX,Promimal End,Neck Internal Completed Fixation 05/06/2018 66668 Open TX Of Femoral FX,Promimal End,Neck Internal Completed Fixation 05/05/2018 11050 EKG, Interpretation Only Completed 05/05/2018 77181 ECHO Transthorasic Realtime 2D W Doppler & Color Flow Completed Hosp 04/25/2018 26065 Short Arm Cast Application Completed 02/21/2018 25740525 Colonoscopy Completed 02/21/2018 02059 Colonoscopy Flexible Remove Tumor/Polyp/Lesion Snare Completed Technique 12/27/2017 74108 EKG Tracing & Interpretation Completed 12/25/2017 97919 Anoscopy Completed 06/20/2017 78580 EKG Tracing & Interpretation Completed 05/28/2017 02391 Cardioversion Completed 04/10/2017 60828 EKG Tracing & Interpretation Completed 03/06/2017 47546 Cardioversion Completed 10/23/2016 23277 EKG Tracing & Interpretation Completed 10/17/2016 63694 EKG, Interpretation Only Completed 10/16/2016 80165 EKG, Interpretation Only Completed 10/15/2016 15967 Cath PLMT&NJX L Ventriculog Img S&I Completed 10/15/2016 34644 EKG, Interpretation Only Completed 10/15/2016 24299 Revascularization Acute Total/Subtotal Occlusion Completed 10/14/2016 98587 EKG, Interpretation Only Completed 10/12/2016 37939 Treadmill Interp/Report Only Completed 10/12/2016 09740 Stress Test Supervsn W/Out I/R Completed 10/11/2016 44283 Cardioversion Completed 10/11/2016 96530 Echocardiogram, Limited Study Completed 09/17/2016 85362 Mobile Cardiovascular Telemetry Over 24 HR Up To 30 Completed Days 09/12/2016 79184 EKG Tracing & Interpretation Completed 08/27/2016 83973 ECHO Transthorasic Realtime 2D W Doppler & Color Flow Completed Hosp 08/27/2016 35156 EKG, Interpretation Only Completed 08/27/2016 22160 Cardioversion Completed 08/26/2016 08298 EKG, Interpretation Only Completed 07/05/2016 19916 ECHO Transthorasic Realtime 2D W Doppler & Color Flow Completed Hosp 10/14/2015 71157 EKG Tracing & Interpretation Completed 08/13/2015 29232 EKG, Interpretation Only Completed 08/13/2015 32311 Cardioversion Completed 01/27/2015 35114 EKG Tracing & Interpretation Completed 12/28/2014 62538 EKG, Interpretation Only Completed 12/28/2014 38053 Cardioversion Completed 03/03/2014 42754 EKG Tracing & Interpretation Completed 01/26/2014 28440 EKG, Interpretation Only Completed 01/26/2014 87416 Cardioversion Completed 01/25/2014 76946 Cardioversion Completed 02/20/2013 20763 ECHO Transthoracic, Real-Time 2D With Doppler And Color Completed Flow 05/27/2012 74730 ECHO Transthoracic, Real-Time 2D With Doppler And Color Completed Flow 05/27/2012 28907 ECHO Transthoracic, Real-Time 2D With Doppler And Color Completed Flow 05/23/2012 85092 Holter Monitoring 24 HR New Completed 04/24/2012 10223 EKG Tracing & Interpretation Completed 01/10/2012 43222 RT & lt Cath W/Injx HRT Art&L Ventr Img S&I Completed 01/01/2012 68300 Carotid Doppler,Bilateral Completed 12/26/2011 36745 Stress Test Completed 04/01/2010 40075 Treadmill Interp/Report Only Completed 04/01/2010 30253 Stress Test Supervsn W/Out I/R Completed 04/21/2009 36871 EKG Tracing & Interpretation Completed 04/19/2009 70963608 Colonoscopy Completed 04/04/2009 44927 EKG, Interpretation Only Completed Encounters Type Date Location Provider Dx Diagnosis Office Visit 05/30/2018 [facility] Ashley Martinez, I48.91 Unspecified atrial 11:30a Of Solutions Architect Consultant N.P. fibrillation I10 Essential (primary) hypertension R60.9 Edema, unspecified I50.32 Chronic diastolic (congestive) heart failure Office Visit 05/27/2018 1:00p Orthopedic Aaron F S72.012D Unsp intracap Services Of MD Alex fx left femur, C.M.A. subs for clos fx w routn heal S52.514D Nondisp fx of r radial styloid pro, 7thD Office Visit 05/14/2018 [facility] S72.012A Unsp intracapsular 9:31a Assoc,lo Boyer M.D. fracture of left Hospitalists femur, init for clos fx D62 Acute posthemorrhagic anemia I48.91 Unspecified atrial fibrillation I10 Essential (primary) hypertension W19.xxxA Unspecified fall, initial encounter Office Visit 05/12/2018 [facility] D62 Acute 9:30a lo Murcia MD posthemorrhagic Hospitalists anemia R65.10 Sirs of non-infectious origin w/o acute organ dysfunction N17.9 Acute kidney failure, unspecified I48.91 Unspecified atrial fibrillation S72.002A Fracture of unsp part of neck of left femur, init M79.669 Pain in unspecified lower leg I10 Essential (primary) hypertension Z95.5 Presence of coronary angioplasty implant and graft Office Visit 05/11/2018 [facility] D62 Acute 9:30a lo Murcia MD posthemorrhagic Hospitalists anemia R65.10 Sirs of non-infectious origin w/o acute organ dysfunction N17.9 Acute kidney failure, unspecified S72.002A Fracture of unsp part of neck of left femur, init I48.91 Unspecified atrial fibrillation I10 Essential (primary) hypertension Z95.5 Presence of coronary angioplasty implant and graft Office Visit 05/10/2018 [place] 404882 Acute 9:29a lo Murcia MD posthemorrhagic Hospitalists anemia R65.10 Sirs of non-infectious origin w/o acute organ dysfunction N17.9 Acute kidney failure, unspecified I48.91 Unspecified atrial fibrillation S72.002A Fracture of unsp part of neck of left femur, init I10 Essential (primary) hypertension Z95.5 Presence of coronary angioplasty implant and graft Office Visit 05/09/2018 [facility] R65.10 Sirs of 9:29a lo Murcia MD non-infectious Hospitalists origin w/o acute organ dysfunction N17.9 Acute kidney failure, unspecified D62 Acute posthemorrhagic anemia I48.91 Unspecified atrial fibrillation S72.002A Fracture of unsp part of neck of left femur, init I10 Essential (primary) hypertension Z95.5 Presence of coronary angioplasty implant and graft Office Visit 05/08/2018 [facility] R65.10 Sirs of 9:29a Asslo blunt D.O. non-infectious Hospitalists origin w/o acute organ dysfunction N17.9 Acute kidney failure, unspecified D62 Acute posthemorrhagic anemia S72.002A Fracture of unsp part of neck of left femur, init I48.91 Unspecified atrial fibrillation I10 Essential (primary) hypertension Z95.5 Presence of coronary angioplasty implant and graft Office Visit 05/07/2018 [facility] Olga Lidia R65.10 Sirs of 9:28a Assoc,pc Melissa Ewing non-infectious Hospitalists origin w/o acute organ dysfunction N17.9 Acute kidney failure, unspecified S72.002A Fracture of unsp part of neck of left femur, init I48.91 Unspecified atrial fibrillation I10 Essential (primary) hypertension Z95.5 Presence of coronary angioplasty implant and graft Office Visit 05/06/2018 [facility] Rubina R65.11 Sirs of 9:26a Assoc,lo Ireland M.D. non-infectious Hospitalists origin w acute organ dysfunction N17.9 Acute kidney failure, unspecified S72.002A Fracture of unsp part of neck of left femur, init I48.91 Unspecified atrial fibrillation Z95.5 Presence of coronary angioplasty implant and graft Office Visit 05/05/2018 9:26a [facility] Priti S72.002A Fracture of Assoc,pc Krishna, DO unsp part of Hospitalists neck of left femur, init R65.10 Sirs of non-infectious origin w/o acute organ dysfunction N17.9 Acute kidney failure, unspecified I35.0 Nonrheumatic aortic (valve) stenosis I48.91 Unspecified atrial fibrillation Z95.5 Presence of coronary angioplasty implant and graft Office Visit 05/04/2018 [facility] Charlette S72.012A Unsp intracapsular 9:23a Assoc,pc Faustina, DO fracture of left Hospitalists femur, init for clos fx I48.0 Paroxysmal atrial fibrillation W19.xxxA Unspecified fall, initial encounter Office 05/04/2018 [facility] S72.002A Fracture of Visit 10:44a Of Tal Dailey M.D. 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 I48.0 Paroxysmal atrial Of Nathaniel Cisneros M.D. 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 hemorrhoids Office Visit 06/20/2017 10:45a [facility] Talib Medrano I48.0 Paroxysmal atrial Of Nathaniel Cisneros M.D. 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 disease of venetie ira coronary artery w/o ang pctrs I48.0 Paroxysmal atrial fibrillation Office Visit 12/05/2016 10:30a [facility] Talib Medrano I25.10 Athscl heart Of Nathaniel Cisneros M.D. 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 fibrillation I21.4 Non-St elevation (Nstemi) myocardial infarction I49.5 Sick sinus syndrome Office Visit 10/13/2016 8:24a [facility] Patricia June, I48.91 Unspecified atrial Assoc,pc N.P. fibrillation Hospitalists I25.10 Athscl heart disease of [place] coronary artery w/o ang pctrs E78.5 Hyperlipidemia, unspecified I10 Essential (primary) hypertension Office Visit 10/12/2016 2:48p [facility] Harvey F. I48.0 Paroxysmal atrial Mauser, M.D. fibrillation I49.5 Sick sinus syndrome I21.4 Non-St elevation (Nstemi) myocardial infarction R94.31 Abnormal electrocardiogram [ECG] [EKG] [facility] atrial 8:23a Assoc,pc Melissa Ewing fibrillation Hospitalists I25.10 Athscl heart disease of [place] coronary artery w/o ang pctrs E78.5 Hyperlipidemia, unspecified I10 Essential (primary) hypertension Office Visit 10/11/2016 9:56a [facility] Harvey F. I10 Essential (primary) Mauser, M.D. hypertension I48.0 Paroxysmal atrial fibrillation I49.5 Sick sinus syndrome Z95.2 Presence of prosthetic heart valve R42 Dizziness and giddiness Office Visit 10/11/2016 [facility] Leonardo I48.91 Unspecified 8:22a Assoc,lo Jensen N.PCasey atrial Hospitalists fibrillation E78.5 Hyperlipidemia, unspecified I25.10 Athscl heart disease of [place] coronary artery w/o ang pctrs I10 Essential (primary) hypertension Office Visit 10/11/2016 2:54p [facility] Harvey F. I48.0 Paroxysmal atrial Mauser, M.D. fibrillation I49.5 Sick sinus syndrome Z95.2 Presence of prosthetic heart valve I10 Essential (primary) hypertension Office Visit 09/12/2016 8:30a [facility] Talib Medrano I48.0 Paroxysmal atrial Of Solutions Architect Consultant Azeem CisnerosD. fibrillation I10 Essential (primary) hypertension Z95.2 Presence of prosthetic heart valve [facility]2016 [facility] I[facility].91 Unspecified Visit 2:01p Assoc,pc KIRSTEN Montero atrial Hospitalists fibrillation R74.8 Abnormal levels of other serum enzymes Z95.2 Presence of prosthetic heart valve I10 Essential (primary) hypertension Office Visit 08/26/2016 10:02a [facility] Harvey F. I48.0 Paroxysmal atrial Mauser, M.D. fibrillation I10 Essential (primary) hypertension R79.89 Other specified abnormal findings of blood chemistry Office Visit 08/26/2016 2:00p [facility] Patricia June, I48.91 Unspecified atrial Assoc,pc N.PCasey fibrillation Hospitalists R74.8 Abnormal levels of other serum enzymes Z95.2 Presence of prosthetic heart valve I10 Essential (primary) hypertension Office Visit 07/04/2016 2:37p [facility] Brent Lincoln, R55 Syncope and Assoc,lo Nick collapse Hospitalists I48.91 Unspecified atrial fibrillation I25.10 Athscl heart disease of [place] coronary artery w/o ang pctrs I10 Essential (primary) hypertension Office Visit 02/08/2016 1:30p [facility] Hector Caputo, M25.562 Pain in left Of C.M.A. M.D. knee M17.0 Bilateral primary osteoarthritis of knee Office Visit 10/14/2015 11:45a [facility] Talib D. I48.1 Persistent atrial Of Nathaniel Cisneros M.D. fibrillation I10 Essential (primary) hypertension I35.0 Nonrheumatic aortic (valve) stenosis Z95.2 Presence of prosthetic heart valve Office Visit 08/13/2015 12:49p [facility] Talib D. I48.1 Persistent atrial Of Nathaniel Cisneros M.D. 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 I48.0 Paroxysmal atrial Of Nathaniel Cisneros M.D. fibrillation Z95.2 Presence of prosthetic heart valve R94.31 Abnormal electrocardiogram [ECG] [EKG] Office Visit 12/29/2014 3:53p [facility] Nicole Guerra, R42 Dizziness and Assoc,lo bravo Hospitalists I48.91 Unspecified atrial fibrillation E78.2 Mixed hyperlipidemia I10 Essential (primary) hypertension Office Visit 12/28/2014 3:52p [facility] Leonardo Jensen, R42 Dizziness and Assoc,pc N.Pierce bravo Hospitalists I48.91 Unspecified atrial fibrillation I10 Essential (primary) hypertension E78.2 Mixed hyperlipidemia Office Visit 08/13/2014 1:30p [facility] Talib D. 427.31 Atrial Of Nathaniel Sandoval Cisneros Fibrillation 424.1 Aortic Valve Disorder Office Visit 03/03/2014 9:45a [facility] Talib D. 427.31 Atrial Of Nathaniel CisnerosSandoval Fibrillation 424.1 Aortic Valve Disorder Office Visit 01/26/2014 11:20a [facility] Talib D. 427.31 Atrial Of Nathaniel CisnerosSandoval Fibrillation Office Visit 01/22/2014 2:15p [facility] Talib D. 424.1 Aortic Valve Of Nathaniel CisnerosSandoval Disorder 427.31 Atrial Fibrillation 401.9 Hypertension Unspec Office Visit 03/19/2013 10:00a [facility] Talib D. 424.1 Aortic Valve Of Nathaniel Sandoval Cisneros Disorder 427.31 Atrial Fibrillation 427.9 Cardiac Dysrhythmia Unspec Office Visit 11/06/2012 1:00p [facility] Talib D. 424.1 Aortic Valve Of Nathaniel Sandoval Cisneros Disorder 427.31 Atrial Fibrillation 401.9 Hypertension Unspec Office Visit 05/29/2012 1:45p [facility] Talib D. 424.1 Aortic Valve Of Nathaniel CisnerosSandoval Disorder 427.31 Atrial Fibrillation Office Visit 04/24/2012 12:00p [facility] Talib D. 424.1 Aortic Valve Of Nathaniel CisnerosSandoval Disorder 427.31 Atrial Fibrillation Office Visit 01/23/2012 11:30a [facility] Medrano 786.09 Dyspnea & Cardiology Of Sandoval Cisneros Respiratory Solutions Architect Consultant Abnormalities Other 424.1 Aortic Valve Disorder Office Visit 01/09/2012 8:00a [facility] Talib Medrano 786.50 Pain Chest Of Nathaniel Sandoval Cisneros Unspec 424.1 Aortic Valve Disorder Office 04/02/2010 Montgomery Cash S. 794.31 Electrocardiogram Visit 9:17a [facility] Sandoval Lees (ECG) (EKG) Abnormal 427.31 Atrial Fibrillation 424.1 Aortic Valve Disorder 401.1 Hypertension Benign Office Visit 04/01/2010 9:17a Lou Castrejon S. 786.50 Pain Chest Sandoval Lees Unspec 427.31 Atrial Fibrillation 424.1 Aortic Valve Disorder 401.1 Hypertension Benign Office Visit 07/22/2009 2:00p DO Not Use Solutions Architect Consultant Stevanovic, 401.1 Hypertension AT Becky Jain M.D. 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 Plan of Treatment Future Appointment(s):07/25/2018 11:45 am - Talib Cisneros M.D. at [facility]07/03/2018 10:15 am - Aaron Johnson MD at [facility]05/30/2018 - Ashley Martinez, N.P.I48.91 Unspecified atrial fibrillationNew Medication:Magnesium Oxide -MG Supplement 400 mg - 1 tab by mouth 2x [id number] Essential (primary) [id number] Edema, unspecifiedFollow up:1 mo f/ OV Brand or day when we are in the office together.Recommendations:Stop amlodipine. Increase Lasix to 2 tabs daily x 3 days then return to 1 tabs daily Have labs drawnin 1 week. Daily weights. call if > 3-5lb weight gain Increase KCl to 2 10mEq tabs daily Start Mg Oxide 400mg bidI50.32 Chronic diastolic (congestive) heart failureNew Labs:Basic Metabolic Panel, Ordered: 05/30/18B-Type Natriuretic Peptide BNP, Ordered: 05/30
--- NOTE | 2018-07-03 20:08 | ED ---
Respiratory - HPI Summary HPI Summary: Patient sent to ED by primary care for further evaluation of productive cough, fatigue and weakness 5 days. Patient was sent to [facility] today by PCP for chest x -ray and then pt returned to primary care. History of recent stay at [facility] 05/14 - 07/01/18 for post hip surgery rehabilitation. Left hip surgery by Dr Johnson on 05/06/18. Patient was also seen by orthopedics today for surgical follow-up, family states Ortho discovered wound on left hip which was cleaned, bandaged and patient was placed on antibiotics today which patient has yet to start. Family also states patient has been slow to resume normal activity since surgery. Patient denies fever, headache, sore throat, neck stiffness, CP, N/V/D, abdominal pain, change in urine, change in BM. Medical history is HTN, A. fib, CK D, anemia, HDL. Nonsmoker, not a former smoker. No antipyretics taken today. - History of Current Complaint Chief Complaint: EDUpperRespComplaint Stated Complaint: WEAK,DIZZY PER PT DAUGHTER Time Seen by Provider: 07/03/18 19:43 Hx Obtained From: Patient, Family/Electrical Mechanic Onset/Duration: Gradual Onset, Lasting Days Current Severity: None Pain Intensity: 0 Character: Cough (Productive) Sputum Amount: Moderate Sputum Color: Green Aggravating Factor(s): Exertion Alleviating Factor(s): Nothing Associated Signs and Symptoms: SOB - Allergy/Home Medications Allergies/Adverse Reactions: Allergies Allergy/AdvReac Type Severity Reaction Status Date / Time No Known Allergies Allergy Verified 07/03/18 18:25 Home Medications: Home Medications Polyethylene Glycol 3350* [Miralax*] 17 gm PO DAILY 07/03/18 [History Confirmed 07/03/18] PMH/Surg Hx/FS Hx/Imm Hx Endocrine/Hematology History: Reports: Hx Anticoagulant Therapy, Hx Anemia Denies: Hx Diabetes, Hx Thyroid Disease Cardiovascular History: Reports: Hx Angina, Hx Atrial Fibrillation, Hx Congestive Heart Failure, Hx Coronary Artery Disease, Hx Hypercholesterolemia, Hx Hypertension, Hx Myocardial Infarction, Hx Peripheral Vascular Disease, Hx Syncope, Hx Valvular Heart Disease - s/p AVR, Other Cardiovascular Problems/ Disorders - aortic valve replacement 2012, S/P cardioversion 05/30/18 Denies: Hx Pacemaker/ICD Respiratory History: Reports: Hx Chronic Bronchitis Denies: Hx Asthma, Hx Chronic Obstructive Pulmonary Disease (COPD) GI History: Reports: Hx Irritable Bowel, Other GI Disorders - constipation Denies: Hx Gastrointestinal Bleed, Hx Hiatal Hernia, Hx Ulcer History: Reports: Other Problems/Disorders - musa placed in fdc Denies: Hx Kidney Stones, Hx Renal Disease Musculoskeletal History: Reports: Hx Arthritis, Hx Back Problems, Hx Orthopedic Injury, Other Musculoskeletal History - HAMMER TOE LEFT SECOND TOE Denies: Hx Osteoporosis Sensory History: Reports: Hx Cataracts - LENS IMPLANTS 2011, Hx Contacts or Glasses - glasses, Hx Vision Problem, Other Sensory Impairments - dry eye Denies: Hx Hearing Aid Opthamlomology History: Reports: Hx Cataracts - LENS IMPLANTS 2011, Hx Contacts or Glasses - glasses, Hx Vision Problem, Other Sensory Impairments - dry eye Neurological History: Denies: Hx Dementia, Hx Transient Ischemic Attacks (TIA) Psychiatric History: Denies: Hx Panic Disorder - Cancer History Hx Chemotherapy: No Hx Radiation Therapy: No - Surgical History Surgery Procedure, Year, and Place: AORTIC valve replacement, 2012,. , 1964, [facility]. Cataract surgery, 2011, [facility] [place]. cardiac catherization with cardiac stent to RCA October 2016. cardioversions 2014,2015, 08/2016, 05/30/18. hip surgery 2019 Hx Anesthesia Reactions: No - Immunization History Date of Influenza Vaccine: 12/25 Infectious Disease History: No Infectious Disease History: Denies: Hx Clostridium Difficile, Hx Hepatitis, Hx Human Immunodeficiency Virus (HIV), Hx of Known/Suspected MRSA, Hx Shingles, Hx Tuberculosis, Hx Known/ Suspected VRE, Hx Known/Suspected VRSA, History Other Infectious Disease, Traveled Outside the [place] in Last 30 Days - Family History Known Family History: Positive: Hypertension - Social History Alcohol Use: None Hx Substance Use: No Substance Use Type: Reports: None Hx Tobacco Use: No Smoking Status (MU): Never Smoked Tobacco Have You Smoked in the Last Year: No Review of Systems Constitutional: Negative Eyes: Negative ENT: Negative Cardiovascular: Negative Positive: Shortness Of Breath, Cough Gastrointestinal: Negative Genitourinary: Negative Musculoskeletal: Negative Skin: Negative Neurological: Negative Psychological: Normal All Other Systems Reviewed And Are Negative: Yes Physical Exam - Summary Physical Exam Summary: Lung sounds clear to auscultation bilaterally. RRR. Abdomen soft nontender. No peripheral edema. Triage Information Reviewed: Yes Vital Signs On Initial Exam: Initial Vitals Temp Pulse Resp BP Pulse Ox 98.0 F 62 16 147/82 95 07/03/18 18:19 07/03/18 18:19 07/03/18 18:19 07/03/18 18:19 07/03/18 18:19 Vital Signs Reviewed: Yes Appearance: Positive: Well-Appearing Skin: Positive: Warm Head/Face: Positive: Normal Head/Face Inspection Eyes: Positive: Normal ENT: Positive: Normal ENT inspection Neck: Positive: Supple Respiratory/Lung Sounds: Positive: Clear to Auscultation Cardiovascular: Positive: Normal Abdomen Description: Positive: Nontender Musculoskeletal: Positive: Normal Neurological: Positive: Normal Psychiatric: Positive: Normal AVPU Assessment: Alert - [place] Coma Scale Best Eye Response: 4 - Spontaneous Best Motor Response: 6 - Obeys Commands Best Verbal Response: 5 - Oriented Coma Scale Total: 15 Diagnostics - Vital Signs Vital Signs Temp Pulse Resp BP Pulse Ox 07/03/18 19:52 70 197/50 98 07/03/18 19:49 70 98 07/03/18 18:19 98.0 F 62 16 147/82 95 - Laboratory Result Diagrams: 07/03/18 20:27 07/03/18 20:27 Lab Statement: Any lab studies that have been ordered have been reviewed, and results considered in the medical decision making process. Disposition - Course Course Of Treatment: Patient sent to ED by primary care for further evaluation of productive cough, fatigue and weakness 5 days. Patient was initially sent to [facility] by PCP for chest x-ray and then returned to primary care. History of recent stay at [facility] 05/14 - 07/01/18 for post hip surgery rehabilitation. Left hip surgery by Dr Johnson on 05/06/18. Patient was also seen by orthopedics today for surgical follow-up, family states Ortho discovered wound on left hip which was cleaned, bandaged and patient was placed on antibiotics today which patient has yet to start. Family also states patient has been slow to resume normal activity since surgery. Patient denies fever, headache, sore throat, neck stiffness, CP, N/V/D, abdominal pain, change in urine, change in BM. Medical history is HTN, A. fib, CK D, anemia, HDL. Nonsmoker, not a former smoker. No antipyretics taken today. Physical exam: Lung sounds clear to auscultation bilaterally. RRR. Abdomen soft nontender. No peripheral edema. Vital signs within normal limits. Vital signs within normal limits. Chest x-ray taken at [facility] today negative for pneumonia or acute process as read by attending Dr. Hooker. WBC 13. Hgb 9 which is a patient baseline. Sodium 117. Creatinine 1.72 which is near patient baseline. BMP 191. Labs otherwise unremarkable or if patient baseline. Patient admitted to hospitalist Dr. Mcmanus. - Diagnoses Provider Diagnoses: Hyponatremia, Respiratory infection, Anemia, CKD (chronic kidney disease) Discharge - Sign-Out/Discharge Documenting (check all that apply): Patient Departure Patient Received Moderate/Deep Sedation with Procedure: No - Discharge Plan Condition: Stable Disposition: ADMITTED TO [facility] - Billing Disposition and Condition Condition: STABLE Disposition: Admitted to [facility]
[2018-07-03 20:35] LABS: ABS Basophils 0.1 10^3/ul (0-0.2); ABS Eosinophils 0 10^3/ul (0-0.6); ABS Lymphocytes 0.9 10^3/ul (1.0-4.8); ABS Monocytes 1.3 10^3/ul (0-0.8); ABS Neutrophils 10.8 10^3/ul (1.5-7.7); ABS Nucleated RBC 0 10^3/ul; Eosinophil % 0 %; Hematocrit 26 % (33-41); Lymphocyte % 6.9 %; Mean Corpuscular HGB Conc 34 g/dL (31-36); Mean Corpuscular Hemoglobin 31 pg (27-31); Mean Corpuscular Volume 90 fL (80-97); Nucleated Red Blood Cells % 0; Platelet Count 265 10^3/uL (150-450); Red Blood Count 2.92 10^6 /uL (3.70-4.87); Red Cell Distribution Width 16 % (10.5-15); White Blood Count 13.1 10^3/uL (3.5-10.8)
[2018-07-03 20:56] LABS: Albumin 3.4 g/dL (3.2-5.2); C Reactive Protein 141.68 mg/L (<8.01); Calcium 8.8 mg/dL (8.6-10.3); EGFR African American 33.9 (>60); Globulin 3.5 g/dL (2-4); Potassium 4.7 mmol/L (3.5-5.0); Total Bilirubin 0.8 mg/dL (0.2-1.0); Total Protein 6.9 g/dL (6.4-8.9)
[2018-07-03] MEDS ORDERED: NS 0.9% 1000 ML** 1,000 ML IV ONE (20:58)
[2018-07-03 21:11] LABS: Influenza A Molecular NEGATIVE (Negative); Influenza B Molecular NEGATIVE (Negative)
[2018-07-03] MEDS ORDERED: NS 0.9% 500 ML* 500 ML IV ONE (21:11)
[2018-07-03] MEDS ORDERED: Al Hydrox/Mg Hydrox/Simet LIQ* 30 ML UDC PO PRN (21:44)
[2018-07-03] MEDS ORDERED: Ondansetron INJ* 2 MG/ML VIAL IV PRN (21:44)
[2018-07-03] MEDS ORDERED: Albuterol 2.5 MG/3 ML NEB.SOL* (0.083%) INH PRN (21:44)
[2018-07-03] MEDS ORDERED: NS 0.9% 1000 ML** 1,000 ML IV SCH (21:45)
[2018-07-03] MEDS ORDERED: Azithromycin 500 mg/250 ml NS 500 MG/250 ML BAG IVPB ONE (22:04)
[2018-07-03] MEDS ORDERED: predniSONE TAB* 20 MG PO ONE (22:05)
[2018-07-03] MEDS ORDERED: Amoxicillin/Clavulanate TAB* 875 MG PO ONE (22:15)
[2018-07-03] MEDS ORDERED: Benzonatate CAP* 100 MG PO PRN (22:31)
[2018-07-03 22:59] LABS: Urine Appearance Turbid; Urine Bacteria 1+ (Absent); Urine Bilirubin Negative (Negative); Urine Blood 3+ (Negative); Urine Color Yellow; Urine Glucose Negative (Negative); Urine Ketones Negative (Negative); Urine Nitrite Negative (Negative); Urine Protein 1+(30 mg/dL) (Negative); Urine Red Blood Cell 3+(>10/hpf) (Absent); Urine Specific Gravity 1.008 (1.010-1.030); Urine Urobilinogen Negative (Negative); Urine White Blood Cell 3+(>20/hpf) (Absent)
[2018-07-03 23:00] LABS: TSH (Thyroid Stimulating Horm) 2.89 mcIU/mL (0.34-5.60)
[2018-07-03] MEDS ORDERED: Vancomycin 1500 MG IV - x ONCE IVPB ONE ×2 (23:00)
[2018-07-03] MEDS ORDERED: Vancomycin(*) 1,000 MG VIAL IVPB SCH (23:00)
[2018-07-03] MEDS ORDERED: DOXYcycline CAP(*) 100 MG PO SCH (23:00)
[2018-07-03 23:05] LABS: Urine Creatinine Concentration 47.39 mg/dL
[2018-07-04] MEDS ORDERED: Cefepime 1 GM in Dextrose(*) 1 GM/50 ML BAG IV SCH
[2018-07-04] MEDS: Acetaminophen TAB* 325 MG PO PRN (00:54)
[2018-07-04] MEDS: Apixaban* 2.5 MG TAB PO SCH ×3 (00:54→20:43)
[2018-07-04] MEDS: Nystatin TOP POWDER* 15 GM BTL TOPICAL SCH ×3 (00:54→20:46)
--- NOTE | 2018-07-04 01:03 | HP ---
CC: Dr. Susy Quevedo* HISTORY AND PHYSICAL: DATE OF ADMISSION: 07/03/18 TIME OF EVALUATION: 1999 PRIMARY CARE PHYSICIAN: Susy Quevedo MD CHIEF COMPLAINT: Weakness. HISTORY OF PRESENT ILLNESS: This is an 87-year-old female with a past medical history of paroxysmal atrial fibrillation, on anticoagulation, who had 2 recent hospitalization, first one for hip fracture and second one was new onset atrial fibrillation, who is just discharged from [facility] on 07/01/18. She has been staying with her daughter. The daughter states she has not been very active. She has to help her get up and move around. She was also noted to start having a productive cough starting on 06/29/18 with congestion, some intermittent shortness of breath, no chest pain. She went into see her primary care physician today for a followup and they were concerned that she had orthostatic hypotension. She also of note has been complaining of dizziness since they started on new medications on her discharge from 06/10/18 and they brought her to the emergency room for further evaluation. In the emergency room , the patient had labs and imaging. She was found to have a low sodium. She was given a 500 cc normal saline bolus and referred to the hospitalist service for further evaluation. As mentioned, the patient states after they started on her new medications on 06/10/18 that is when the dizziness was noted and lightheadedness. She has also had an indwelling Musa catheter since rehab. The daughter states they did try to take it out last week on 06/27/18, but she was retaining. She was straight cath'ed and then they it put back in due to urinary retention. It was thought that she had a component of neurogenic bladder on last admission and she is scheduled for followup with Urology next month. The patient also followed up with Ortho with Dr. Johnson regarding wound on the left side. The prescription was sent for antibiotic, but has not yet been picked up. Otherwise, remaining review of systems is negative. PAST MEDICAL HISTORY: 1. Recent admission 06/05/18 to 06/10/18 to the ICU for rapid atrial fibrillation, on anticoagulation and hypothyroidism. Also, an admission back in May for left hip fracture, status post repair. 2. History of NSTEMI in 2017, status post PCI. 3. History of tachybrady syndrome. 4. History of aortic stenosis. 5. Hypertension. 6. Hyperlipidemia. 7. History of CKD, stage 4. 8. History of chronic uterine mass, biopsy benign. 9. History of right wrist fracture. 10. Constipation. 11. Iron deficiency anemia. 12. History of bioprosthetic aortic valve in 2013. 13. History of diastolic congestive heart failure. 14. Morbid obesity. 15. Hypothyroidism. MEDICATIONS: 1. Tylenol 650 every 4 hours as needed. 2. Amiodarone 200 mg every other day and 300 mg every other day, 300 mg on odd days and 200 mg on even days. 3. Apixaban 5 mg p.o. b.i.d. 4. Aspirin 81 mg daily. 5. Atorvastatin 40 mg daily. 6. Calcium with vitamin 1 tab p.o. b.i.d. 7. Colace 100 mg t.i.d. 8. Ferrous sulfate 325 mg p.o. daily. 9. Folic acid 1 mg daily. 10. Lasix 40 mg daily. 11. Glycerin suppository as needed. 12. Synthroid 12.5 mcg p.o. daily. 13. Metoprolol succinate 50 mg p.o. b.i.d. 14. Milk of mag as needed. 15. Nitro sublingual as needed. 16. Nystatin powder as needed. 17. MiraLAX as needed. 18. Potassium chloride ER 20 mEq p.o. daily. 19. Spironolactone 25 mg daily. 20. Vitamin B12 1000 mcg daily. 21. Multivitamin daily. ALLERGIES: No known drug allergies. FAMILY HISTORY: Reviewed and noncontributory. SOCIAL HISTORY: The patient normally lives at home with her , but since she was discharged from rehab a few days ago she is staying with her daughter until she is more independent because she is currently dependent on her ADLs and needs assistance when ambulating with a walker. No history of smoking tobacco or illicit drug use. Her healthcare proxy are her 2 daughters. Code status, full code. REVIEW OF SYSTEMS: A 14-point review of systems was reviewed and as mentioned in the HPI, otherwise negative. PHYSICAL EXAMINATION GENERAL: In no acute distress, resting tremor. Daughter at the bedside. VITAL SIGNS: Temp is 98.3, pulse rate is 70, respiratory rate 16, oxygen saturation 98% on 2 L, blood pressure is 146/94. HEENT: Head: Normocephalic. Pupils equal and reactive. Anicteric. Oropharynx: Moist. Posterior oropharynx erythematous. NECK: Supple. No lymphadenopathy. RESPIRATORY: Diminished breath sounds. Bilateral expiratory wheeze. No increased work of breathing. Positive productive cough. CARDIAC: Regular rate and rhythm. Soft systolic murmur heard throughout. ABDOMEN: Soft, nontender, nondistended. EXTREMITIES: Trace pretibial edema. +1 DPs. NEUROLOGIC: Alert and oriented x3. No gross focal neurologic deficits. Generalized weakness. DERM: On her left lateral hip, bandage in place. She has 1 cm opening wound with what appears to be purulent drainage and surrounding mild erythema. RADIOGRAPHIC DATA: EKG shows normal sinus rhythm, QTc of 481, nonspecific changes. Chest x-ray from earlier as an outpatient was negative for atelectasis. ASSESSMENT AND PLAN: This is an 87-year-old female with a past medical history of atrial fibrillation, on anticoagulation, who was recently discharged from rehab, went to her primary for followup for weakness and cough, sent here for further workup. 1. Weakness. Assessment: The patient with hyponatremia. I suspect this is hypovolemic hyponatremia as she states her intake has been poor, no GI losses, and she has also been diuresed with spironolactone and Lasix, which may be contributing to her hypovolemia. Plan: She is getting 500 cc bolus. We will repeat her BMP. Check a serum osmo, urine osmo, and urine sodium, and follow up on that as well. The other concern is the weakness is due to an infection. 2. Wound. Assessment: The patient with small wound with some purulent drainage from her hip surgery. I am concerned for an abscess versus septic hip. We are going to check blood cultures and ultrasound and check for fluid collection. I am going to start her with vanco and obtain wound culture. Follow up on her ultrasound. Recommend contacting Ortho in the morning regarding her admission to evaluate the wound and consider wound care consult as well. 3. Cough. Assessment: The patient does have an elevated white count and CRP, this could be related to her hip wound, could also be related to her chronic obstructive pulmonary disease exacerbation with bronchitis. No obvious pneumonia on exam. Plan: Obtain the sputum culture. Continue albuterol nebs. We will start her on prednisone and do not want to give her macrolide in the setting of being on amiodarone and prolonged QTc and hold off on fluoroquinolones. We will treat her with cefepime for chronic obstructive pulmonary disease exacerbation and to cover her pyuria as well. Follow up sputum and urine cultures. 4. Pyuria A. Patient with indwelling musa. Appears she has had several voiding trials at [facility] and most recently last week at rehab and has failed and unable to void. Now with chronic indwelling musa. Elevated white count. Could be a UTI Plan Start Cefepime, follow up cultures 4. Acute kidney injury. The patient with elevated BUN and creatinine, suggestive of prerenal azotemia. She is on Lasix and spironolactone with decreased BUN and low sodium. Plan: Holding her spironolactone and Lasix for now, giving her some gentle IV fluids. If her labs are consistent with hypovolemia and hyponatremia on repeat labs in the morning, renally dose her meds. 5. Chronic medical problems: Atrial fibrillation, continue her on Eliquis at lower dose in the setting of renal failure and age. Continue her on her amiodarone as well. 6. Hypothyroidism. We will check a TSH. Continue her on her Synthroid. 7. FEN. Place the patient on a regular diet with gentle IV fluids. 8. DVT prophylaxis. The patient scores high risk. She is on Eliquis. 9. Code status: Full code. PATIENT TIME: Greater than 55 minutes spent doing history and physical, more than half the time spent in direct patient. [id number]/[facility] #: [id number] MTDD
[2018-07-04 02:31] LABS: BUN/Creatinine Ratio 19.6 (8-20); Calcium 8.2 mg/dL (8.6-10.3); EGFR African American 38.8 (>60); EGFR Non-African American 32.1 (>60); Potassium 4.9 mmol/L (3.5-5.0)
[2018-07-04] MEDS: Levothyroxine TAB* 25 MCG TAB PO SCH (05:08)
[2018-07-04] MEDS ORDERED: Vancomycin per Pharmacy* NOTE FOLLOW UP PRN (05:59)
[2018-07-04] MEDS: Vancomycin(*) 750 MG in NS 0.9% 250 ML* 250 ML IVPB SCH ×2 (06:28→13:36)
--- NOTE | 2018-07-04 06:30 | PN ---
Progress Note - Progress Note Date of Service: 07/04/18 Note: Patient's labs show more of a euvolemic hypoosmolar hyponatremia - Will d/c IVFs and fluid restrict patient. F/U AM labs
[2018-07-04 06:38] LABS: ABS Basophils 0 10^3/ul (0-0.2); ABS Eosinophils 0 10^3/ul (0-0.6); ABS Lymphocytes 0.6 10^3/ul (1.0-4.8); ABS Monocytes 0.2 10^3/ul (0-0.8); ABS Neutrophils 9.4 10^3/ul (1.5-7.7); ABS Nucleated RBC 0 10^3/ul; Eosinophil % 0 %; Hematocrit 23 % (33-41); Hemoglobin 8.1 g/dL (12.0-16.0); Lymphocyte % 5.4 %; Mean Corpuscular HGB Conc 35 g/dL (31-36); Mean Corpuscular Hemoglobin 31 pg (27-31); Mean Corpuscular Volume 90 fL (80-97); Mean Platelet Volume 6.2 fL (7.4-10.4); Nucleated Red Blood Cells % 0; Platelet Count 214 10^3/uL (150-450); Red Cell Distribution Width 16 % (10.5-15); White Blood Count 10.2 10^3/uL (3.5-10.8)
[2018-07-04 06:44] LABS: BUN/Creatinine Ratio 19.7 (8-20); Calcium 8.5 mg/dL (8.6-10.3); EGFR African American 40.7 (>60); EGFR Non-African American 33.6 (>60); Potassium 4.8 mmol/L (3.5-5.0)
[2018-07-04] MEDS: predniSONE TAB* 20 MG PO SCH (08:52)
[2018-07-04] MEDS: Senna TAB PO SCH ×2 (08:52→20:44)
[2018-07-04] MEDS: Amiodarone TAB* 200 MG PO SCH (08:52)
[2018-07-04] MEDS: Folic Acid TAB* 1 MG PO SCH (08:52)
[2018-07-04] MEDS: Metoprolol Tartrate TAB* 25 MG PO SCH ×2 (08:52→20:44)
[2018-07-04] MEDS: Ferrous Sulfate TAB* 325 MG PO SCH (08:52)
[2018-07-04] MEDS: Aspirin 81 mg CHEW TAB* 81 MG TAB.CHEW PO SCH (08:53)
[2018-07-04] MEDS: Docusate CAP* 100 MG PO SCH ×2 (08:53→20:43)
[2018-07-04] MEDS ORDERED: Amoxicillin/Clavulanate TAB* 875 MG PO SCH (09:00)
[2018-07-04] MEDS: Cefepime ADVAN(*) 1 GM in NS 0.9% 50 ML* 50 ML IVPB SCH (10:20)
[2018-07-04] MEDS: Atorvastatin* 40 MG TAB PO SCH (16:19)
[2018-07-04] MEDS ORDERED: NS 0.9% 1000 ML** 400 ML IV ONE (17:00)
[2018-07-04] MEDS ORDERED: NS 0.9% 1000 ML** 1,000 ML IV SCH (17:30)
--- NOTE | 2018-07-04 19:26 | PN ---
Subjective Date of Service: 07/04/18 Interval History: Feeling better today +cough denies SOB no dizziness/LH Objective Active Medications: Acetaminophen (Tylenol Tab*) 650 mg PO Q4H PRN PRN Reason: FEVER/PAIN Last Admin: 07/04/18 00:54 Dose: 650 mg Al Hydrox/Mg Hydrox/Simethicone (Maalox Plus*) 30 ml PO Q6H PRN PRN Reason: INDIGESTION Albuterol (Ventolin 2.5 Mg/3 Ml Neb.[place]*) 2.5 mg INH [id number] AWAKE PRN PRN Reason: sob/wheezing Amiodarone HCl (Cordarone Tab*) 200 mg PO EVERY OTHER DAY [facility] Last Admin: 07/04/18 08:52 Dose: 200 mg Amiodarone HCl (Cordarone Tab*) 300 mg PO EVERY OTHER DAY [facility] Apixaban (Eliquis*) 2.5 mg PO BID [facility] Last Admin: 07/04/18 08:52 Dose: 2.5 mg Aspirin (Aspirin 81 Mg Chew Tab*) 81 mg PO DAILY [facility] Last Admin: 07/04/18 08:53 Dose: 81 mg Atorvastatin Calcium (Lipitor*) 40 mg PO 1700 [facility] Last Admin: 07/04/18 16:19 Dose: 40 mg Benzonatate (Tessalon Cap*) 200 mg PO TID PRN PRN Reason: COUGH Last Admin: 07/04/18 08:53 Dose: 200 mg Docusate Sodium (Colace Cap*) 100 mg PO BID [facility] Last Admin: 07/04/18 08:53 Dose: 100 mg Ferrous Sulfate (Ferrous Sulfate Tab*) 325 mg PO DAILY [facility] Last Admin: 07/04/18 08:52 Dose: 325 mg Folic Acid (Folvite Tab*) 1 mg PO DAILY [facility] Last Admin: 07/04/18 08:52 Dose: 1 mg Vancomycin HCl 750 mg/ Sodium (Chloride) 250 mls @ 166.667 mls/hr IVPB 0100, 1300 [facility]; Protocol Last Admin: 07/04/18 13:36 Dose: 166.667 mls/hr Cefepime HCl 1 gm/ Sodium (Chloride) 50 mls @ 100 mls/hr IVPB Q24H [facility] Last Admin: 07/04/18 10:20 Dose: 100 mls/hr Sodium Chloride (Ns 0.9% 1000 Ml) 1,000 mls @ 100 mls/hr IV PER RATE [facility] Stop: 07/05/18 03:29 Last Admin: 07/04/18 17:47 Dose: 100 mls/hr Levothyroxine Sodium (Synthroid Tab*) 12.5 mcg PO DAILY@0600 [facility] Last Admin: 07/04/18 05:08 Dose: 12.5 mcg Metoprolol Tartrate (Lopressor Tab*) 12.5 mg PO Q12HR [facility] Last Admin: 07/04/18 08:52 Dose: 12.5 mg Nystatin (Nystatin Top Powder*) 1 applic TOPICAL BID [facility] Last Admin: 07/04/18 09:27 Dose: 1 applic Ondansetron HCl (Zofran Inj*) 4 mg IV Q4H PRN PRN Reason: NAUSEA/VOMITING Pharmacy Consult (Vancomycin Per Pharmacy*) 1 note FOLLOW UP . PRN PRN Reason: PER PROTOCOL Pharmacy Profile Note (Vancomycin Trough Check) 1 note FOLLOW UP 1230 ONE Stop: 07/05/18 12:31 Prednisone (Deltasone Tab*) 40 mg PO DAILY [facility] Last Admin: 07/04/18 08:52 Dose: 40 mg Senna (Senokot Tab*) 1 tab PO BID [facility] Last Admin: 07/04/18 08:52 Dose: 1 tab Oxygen Devices in Use Now: None Appearance: NAD Eyes: No Scleral Icterus, PERRLA Ears/Nose/Mouth/Throat: NL Teeth, Lips, Gums, Clear Oropharnyx Neck: NL Appearance and Movements; NL JVP, Trachea Midline Respiratory: Symmetrical Chest Expansion and Respiratory Effort, Clear to Auscultation Cardiovascular: RRR Abdominal: NL Sounds; No Tenderness; No Distention, No Hepatosplenomegaly Lymphatic: No Cervical Adenopathy Skin: - - lateral left thigh with what may be non draining fistula, mild erythema, minimal discharge Neurological: Alert and Oriented x 3 Result Diagrams: 07/04/18 06:15 07/04/18 06:15 Microbiology and Other Data: Microbiology 07/04/18 00:00 Gram Stain - Final Hip Left 07/03/18 23:11 Gram Stain - Final Sputum Assess/Plan/Problems-Billing Assessment: 87 yo F h/o hemiarthroplasty in 04/2018, afib, cad, ckd pw LH found with hyponatremia, SIM and concern for underlying thigh abscess - Patient Problems (1) Hyponatremia Comment: Urine Na <40 and elevated urine Osmums as well - partly consistent with SIADH but clinical story seem smore c/w hypovolemia. Regardless her kideny function was improved with the fluid challenge yesterday so I will challenge again with normal saline and recheck sodium in AM which should be more definitive. (2) Acute kidney failure Comment: suspect pre renal NS as above (3) Abscess Comment: cefepime and vanco to OR tomorrow for washout npo midnight (4) Atrial fibrillation Comment: eliquis amiodarone (5) DVT prophylaxis Comment: eliquis
[2018-07-04] MEDS ORDERED: Azithromycin IV(*) 250 MG in NS 0.9% 250 ML* 250 ML IVPB SCH (23:00)
[2018-07-05] MEDS: Vancomycin(*) 750 MG in NS 0.9% 250 ML* 250 ML IVPB SCH ×2 (00:40→13:25)
[2018-07-05] MEDS: Levothyroxine TAB* 25 MCG TAB PO SCH (05:25)
[2018-07-05 07:28] LABS: ABS Basophils 0 10^3/ul (0-0.2); ABS Eosinophils 0 10^3/ul (0-0.6); ABS Lymphocytes 0.6 10^3/ul (1.0-4.8); ABS Monocytes 1.1 10^3/ul (0-0.8); ABS Neutrophils 10.7 10^3/ul (1.5-7.7); ABS Nucleated RBC 0 10^3/ul; Eosinophil % 0 %; Hematocrit 25 % (33-41); Hemoglobin 8.2 g/dL (12.0-16.0); Lymphocyte % 4.6 %; Mean Corpuscular HGB Conc 33 g/dL (31-36); Mean Corpuscular Hemoglobin 30 pg (27-31); Mean Corpuscular Volume 91 fL (80-97); Mean Platelet Volume 6.2 fL (7.4-10.4); Nucleated Red Blood Cells % 0; Platelet Count 247 10^3/uL (150-450); Red Blood Count 2.71 10^6 /uL (3.70-4.87); Red Cell Distribution Width 15 % (10.5-15); White Blood Count 12.4 10^3/uL (3.5-10.8)
[2018-07-05] MEDS: Metoprolol Tartrate TAB* 25 MG PO SCH ×2 (07:42→20:54)
[2018-07-05 08:16] LABS: BUN/Creatinine Ratio 25.4 (8-20); Calcium 8.7 mg/dL (8.6-10.3); EGFR African American 52.4 (>60); EGFR Non-African American 43.3 (>60); Potassium 4.5 mmol/L (3.5-5.0)
--- NOTE | 2018-07-05 09:00 | PN ---
Progress Note - Progress Note Date of Service: 07/05/18 SOAP: Subjective: Patient was made NPO after midnight for I&D this morning. Elqiuis not held last night, electrolytes not ordered this morning, and patient very hypertensive this morning. Still no left hip complaint by patient. Objective: NAD. Productive cough. L hip: - Opening 6-10 mm long in incision scar - Scant drainage - No TTP - Dressing of 4x4s had a small amount, 1x2 cm of serosangunous drainage overnight - NVID Microbiology 07/03/18 22:54 Blood Venous Aerobic Blood Culture - Preliminary 07/03/18 22:54 Blood Venous Anaerobic Blood Culture - Preliminary No Growth Day 1 No Growth Day 1 07/03/18 22:22 Blood Venous Aerobic Blood Culture - Preliminary 07/03/18 22:22 Blood Venous Anaerobic Blood Culture - Preliminary No Growth Day 1 No Growth Day 1 Selected Entries 07/04/18 07/05/18 07/05/18 23:37 03:23 07:22 Temperature 98.3 F 97.8 F 98.4 F Pulse Rate 67 Respiratory 16 Rate Blood Pressure 150/90 150/49 184/55 (mmHg) O2 Sat by Pulse 94 Oximetry 07/05/18 07:25 Temperature Pulse Rate Respiratory Rate Blood Pressure 178/68 (mmHg) O2 Sat by Pulse Oximetry Laboratory Tests 07/03/18 07/03/18 07/04/18 20:27 22:35 01:59 Sodium 117 L* C-Reactive Protein 141.68 H Urine Nitrate Negative Ur Leukocyte Esterase 3+ A Urine Bacteria 1+ A 07/04/18 07/05/18 07/05/18 06:15 07:05 07:05 Sodium 119 L* 127 L D C-Reactive Protein 96.42 H Urine Nitrate Ur Leukocyte Esterase Urine Bacteria Assessment: HD 2 admission with weakness, dizziness, hyponatremia Possible respiratory infection Left hip wound Possible infection, subQ or, less likely, deep Plan: - Given the continued Eliquis anticoagulation, borderline sodium, elevated blood pressure, multiple medical problems, I delayed surgery and will do it tomorrow. - An I&D is a procedure with a low risk of bleeding, especially if just superficial. However, given the patient's general poor health, multiple medical problems, borderline sodium, and lack altogether of any hip complaint, I think a delay until tomorrow is safest for the patient and reasonable for treatment of a possible infection. - Given the presence of arthroplasty, I think we continue to be aggressive with IV antibiotics with I&D on 07/06/18. - Hold Eliquis - Defer to Hospitalist on management of low sodium, elevated BP. - Encourage Hospitalist service to strongly consider other sources of infection - respiratory, urine, or other- as possible source of slightly elevated WBC and elevated CRP - Ultrasound and wound cultures are of debatable utility in this situation. The 1.5cm x 7.5cm fluid collection in an elderly patient on Eliquis could represent a hematoma from bumping her hip. Wound cultures may provide some sensitivity information, but skin matthew will likely be present. - In a patient with joint arthroplasty in place, especially an elderly patient with multiple medical problems and a bioprosthetic cardiac valve in place, and any possibility whatsoever of deep infection, aggressive workup and treatment is absolutely required.
[2018-07-05] MEDS: Aspirin 81 mg CHEW TAB* 81 MG TAB.CHEW PO SCH (09:01)
[2018-07-05] MEDS: predniSONE TAB* 20 MG PO SCH (09:01)
[2018-07-05] MEDS: Folic Acid TAB* 1 MG PO SCH (09:01)
[2018-07-05] MEDS: Senna TAB PO SCH ×2 (09:01→20:54)
[2018-07-05] MEDS: Docusate CAP* 100 MG PO SCH ×2 (09:01→20:54)
[2018-07-05] MEDS: Ferrous Sulfate TAB* 325 MG PO SCH (09:01)
[2018-07-05] MEDS: Apixaban* 2.5 MG TAB PO SCH (09:04)
[2018-07-05] MEDS: Amiodarone TAB* 200 MG PO SCH (09:09)
[2018-07-05] MEDS: Nystatin TOP POWDER* 15 GM BTL TOPICAL SCH ×2 (09:14→20:57)
[2018-07-05] MEDS: Cefepime ADVAN(*) 1 GM in NS 0.9% 50 ML* 50 ML IVPB SCH (09:41)
--- NOTE | 2018-07-05 11:12 | CONS ---
CONSULTATION NOTE: DATE OF CONSULT: 07/04/18 HISTORY: The patient is an 87-year-old woman who at baseline lives with her and had been a c ommunity ambulator with a cane, who is now approximately 2 months status post left hip bipo lar hemiarthroplasty for treatment of femoral neck fracture by me, who I was asked to see on 07/04/18 in the afternoon, for concern about an infection about the left hip. The patient fell on 05/03/18. She underwent an uncomplicated procedure on 05/06/18 by me. After an uneventful postoperative course, she was discharged to the [facility]. Of note, prior to her hip fracture, the patient had sustained an injury on 04/24/18 when she was diag nosed with a right distal radius radial styloid fracture, nondisplaced, which has been managed nonope ratively. I saw the patient in clinic on 05/27/18. Her exam and clinic visit that day was notable just for a F oley catheter being in place still with blood clearly visible or blood-tinged fluid visible in the ba g. Both the family and the aide did not know any specifics about why the bladder catheter was still in place. The family stated that the patient had had some fluid retention, urinary retention that wa s treated with the bladder catheter. They did not know of any specific difficulty with voiding that the patient had had. The patient continued physical therapy. We stopped casting of the patient's right wrist and I recomm ended to the [facility] that the patient follow up with Urology about her possible uri nary retention issue. I stated that urinary retention is very different from fluid retention, which is generally caused by congestive heart failure. I recommended that the patient follow up in 1 month in clinic. She was to do physical therapy. The patient then presented to my clinic on 07/03/18. The patient had just been discharged home. The patient still had catheter in place. The patient had no complaints of left hip pain. No complaint of pain with ambulation in the left hip . The patient thought she was doing well. No concern by family or [facility] er previous about the left hip. I noted on my exam on 07/03/18 in clinic when we stood the patient up from her wheelchair that there was a small area along the incision site scar where there was a defect in the skin. It was maybe 5 t o 10 mm long. There was no drainage. There was no erythema or tenderness. It looked like it was a sac with a base to it, several millimeters, at most 5 mm deep. I could not be sure that it had a dep th to it and I did not want to probe the patient in clinic, so just as a precaution I put the patient on 7 days of Keflex oral antibiotics. I recommended that that be covered with a dry sterile dressin g and I asked that the patient follow up with me in 2 weeks and contact me if there was any change to that small bit of wound breakdown. The patient was then admitted through the emergency department that same day, much later in the day. The patient had been to her primary care physician earlier in the day and there was concern about or thostatic hypotension. She described some dizziness and so the family brought the patient to the [facility] room for the dizziness. In the emergency room, the patient was found to have hyponatremia. T he patient was given a bolus of normal saline and was referred to the hospitalist service. The patient had had a recent admission from 06/05/18 to 06/10/18 to the ICU for rapid atrial fibrilla tion, on anticoagulation, as well as hypothyroidism. Of note, the patient also has a relatively rece nt history of non-ST elevation DC in 2016 after percutaneous catheterization, aortic stenosis and sta ge IV chronic kidney disease. Bioprosthetic aortic valve in 2012. The hospitalist service ordered workup of the hyponatremia and correction. The hospitalist service w as concerned about a possible infection and so ordered blood cultures, ultrasound, started her on van comycin and got the wound cultures. They contacted Orthopedics, first partner and then myself. The patient was noted to have a cough by the hospitalist service, which could also be a source of her elevated white blood count which was at 13 and CRP which was also elevated. This was worked up with a sputum culture. The patient was on Eliquis for atrial fibrillation. The emergency room doctor described the patient as having a productive cough with fatigue and weaknes s for 5 days. The patient has denied fevers to all healthcare providers. She was noted to have a so dium of just 117 by the emergency room staff. I went and saw the patient on the floor. She still complained of no left hip pain. She had maintaine d the bandage in place after a clinic visit the day prior. PAST MEDICAL HISTORY: Atrial fibrillation, non-ST elevation DC, tachybrady syndrome, aortic stenosis , hypertension, hyperlipidemia, chronic kidney disease stage IV, chronic uterine mass - biopsy benign , constipation, iron deficiency anemia, bioprosthetic aortic valve in 2012, diastolic congestive hear t failure, morbid obesity, hypothyroidism. PAST SURGICAL HISTORY: Open left hip bipolar hemiarthroplasty for femoral neck fracture, April 30. MEDICATIONS: 1. Tylenol p.r.n. 2. Amiodarone. 3. Eliquis. 4. Aspirin 81 mg p.o. daily. 5. Atorvastatin. 6. Calcium. 7. Colace. 8. Ferrous sulfate. 9. Folic acid. 10. Lasix. 11. Glycerin suppository p.r.n. 12. Synthroid. 13. Metoprolol. 14. Milk of Magnesia. 15. Nitroglycerin sublingual p.r.n. 16. Nystatin p.r.n. 17. MiraLax. 18. Potassium chloride. 19. Spironolactone. 20. Vitamin B12. 21. Multivitamin. ALLERGIES: No known drug allergies. FAMILY HISTORY: Noncontributory. SOCIAL HISTORY: At baseline prior to hip fracture, the patient lived at home with her , but s [place] discharge from rehab the patient has been staying with her daughter. The patient is currently u sing a walker to ambulate, but at baseline prior to hip fracture, used a cane. No history of cigaret te smoking. Healthcare proxies are her 2 daughters. REVIEW OF SYSTEMS: The patient described no left hip pain. No left lower extremity numbness and tin gling. The patient has been lightheaded and weak. She has had a productive cough, intermittent shor tness of breath. Dizziness. Lightheadedness. PHYSICAL EXAM: Most recent vital signs: Temperature 98.4 degrees Fahrenheit, oral temperature; puls e 67; blood pressure 184/55; respiratory rate 16; and O2 sat of 94% on room air. The patient was seen in her exam room in the afternoon or evening of 07/04/18. At that time, she was in no acute distress. Alert and oriented. Lying in her hospital bed with family around her. Appropriate dress and hygiene, and appropriate moo d and affect for a hospitalized patient. Left hip exam showed no pain whatsoever with passive range of motion. Neurovascular intact distally. Along the hip incision scar, midway down the incision from proximal to distal, there is a small area , perhaps a centimeter length, that is open. No drainage whatsoever on the dressing. The bottom of the defect of the skin looked deeper than had the day previous. Unclear bottom versus unbottom to it . I took some Q-tips and I probed and the probe pushed through some material, junky-type material, p urulent-type material, although not pus. I probed with the Q-tip. There was no fluid that came out . It probed into the subcutaneous layer, but not clearly deeper in any direction. IMAGING: Ultrasound left hip was obtained on 07/03/18. This was read by reading radiologist as show ing a complex mass or fluid collection, 1.5 cm x 7.5 cm. I also called the on-call radiologist and d iscussed this with him, Dr. Villegas. Both radiologists agreed that the fluid collection appeared to b e superficial to the fascia. I could not state exactly where this was, certainly not in relation to the skin defect. No clear sign of it being an abscess versus an organized hematoma. Relatively small at 1.5 x 7.5 cm. LABORATORY DATA: The patient had a white blood cell count on admission through the emergency departm ent of 13.1, which on 07/04/18 was 10.2, but then alfonso to 12.4 on 07/05/18 in the morning. The neutr ophil percentage at admission was 82.8%, up to 92.4% and now down to 86.5%. Sodium at admission was 117 and most recently was 119. The patient's creatinine at admission was 1.72 and is now down to 1.4 7. CRP at admission was 141.68. ESR was not obtained. Urinalysis demonstrated negative nitrites, p ositive leukocyte esterase, and positive urine bacteria, although the hospitalist was not concerned b y this because this was with the bladder catheter in place. ASSESSMENT: 1. Status post 05/06/18 left hip hemiarthroplasty for fracture. 2. Wound, left hip. 3. Fluid collection, subcutaneous, organized hematoma versus less likely abscess, left hip area. 4. Multiple medical problems including hyponatremia and weakness as the admitting diagnosis. Curren tly, elevated blood pressure, not present to this extent at admission. Possible respiratory infectio n being worked up by hospitalist service. Worsening hyponatremia. PLAN: 1. The patient's principal medical problem is her hyponatremia. I spoke to hospitalist service and this is not likely to have been caused simply by her hip issue. 2. I suspect it is very likely that no one would have known about any breakdown in the incision if I had not seen the patient in clinic 2 days ago and then if the patient did not happen to be admitted for hyponatremia given that the patient has no complaints regarding the left hip. 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 3. Hospitalist service had been concerned about the ultrasound prior to my being consulted so much s o that they started the patient on cefepime and vancomycin. However, at 2 months postoperative, there can certainly still be an organized hematoma present and Radiology thought this was more consistent with hematoma than abscess, although limited ability to differentiate based on ultrasound. 4. In the setting of a joint arthroplasty, we certainly want to err on the side of caution and being more aggressive both with antibiotics and with irrigation and debridement to treat infection or to p revent infection. 5. In the setting of multiple medical problems, hyponatremia, hypertension, multiple baseline medica l problems, possible respiratory infection, the slightly elevated white blood cell count and the elev ated CRP in the 140s are less helpful in distinguishing between an infection or lack thereof about th e left hip. 6. On 07/04/18, I told the hospitalist service that I wanted the patient to go to the operating room on the morning of 07/05/18. I requested that they make her n.p.o. after midnight and make all the a [facility]. This would have certainly included holding Eliquis, although I was told t hat the patient received her evening dose of Eliquis on 07/04/18. 7. To the operating room for irrigation and debridement, left hip wound. Depending on the appearance of the subcutaneous space, I will either limit it to that and do a formal closure of the defect. Dash ikng, depending on the appearance of the tissues, I might continue the irrigation and debridement de ep down to the hip joint and in that situation I would do an exchange of components, specifically the inner and outer bipolar heads and the plastic in between them. I will certainly look also to see if there is a fluid connection and if it connects in any way with this wound. I will do probing to fig ure that out. 8. We will follow CBC diff, ESR, CRP for any sense of assistance understanding for infection. 9. The hospitalist will need to manage the patient's elevated high blood pressure and low sodium. W e need the sodium at a reasonable level before proceeding with surgery. 10. We certainly will hold anticoagulation. Depending on the patient's status this morning, we may or may not delay surgery to let that leave the patient's system a bit. Because this is simply an irr igation and debridement and there is a possibility of infection, I would feel comfortable proceeding without, you know, multiple days off Ele[place]io. [id number]/[facility] #: [id number]
[2018-07-05] MEDS ORDERED: Vancomycin Trough Check NOTE FOLLOW UP ONE (12:30)
[2018-07-05 12:42] LABS: BUN/Creatinine Ratio 23.1 (8-20); Calcium 8.4 mg/dL (8.6-10.3); EGFR African American 50.4 (>60); EGFR African American 50.9 (>60); EGFR Non-African American 41.7 (>60); EGFR Non-African American 42.1 (>60); Potassium 4.6 mmol/L (3.5-5.0)
[2018-07-05 13:12] LABS: Vancomycin Trough 16.2 mcg/mL
[2018-07-05] MEDS ORDERED: Furosemide TAB* 40 MG PO SCH (14:00)
[2018-07-05] MEDS: Atorvastatin* 40 MG TAB PO SCH (16:53)
--- NOTE | 2018-07-05 17:57 | PN ---
Subjective Date of Service: 07/05/18 Interval History: Cough is only complaint No pain Has not stood up and so no LH that she had experienced prior to arrival Objective Active Medications: Acetaminophen (Tylenol Tab*) 650 mg PO Q4H PRN PRN Reason: FEVER/PAIN Last Admin: 07/04/18 00:54 Dose: 650 mg Al Hydrox/Mg Hydrox/Simethicone (Maalox Plus*) 30 ml PO Q6H PRN PRN Reason: INDIGESTION Albuterol (Ventolin 2.5 Mg/3 Ml Neb.[place]*) 2.5 mg INH [id number] AWAKE PRN PRN Reason: sob/wheezing Amiodarone HCl (Cordarone Tab*) 200 mg PO EVERY OTHER DAY [facility] Last Admin: 07/04/18 08:52 Dose: 200 mg Amiodarone HCl (Cordarone Tab*) 300 mg PO EVERY OTHER DAY [facility] Last Admin: 07/05/18 09:09 Dose: 300 mg Aspirin (Aspirin 81 Mg Chew Tab*) 81 mg PO DAILY [facility] Last Admin: 07/05/18 09:01 Dose: 81 mg Atorvastatin Calcium (Lipitor*) 40 mg PO 1700 [facility] Last Admin: 07/05/18 16:53 Dose: 40 mg Benzonatate (Tessalon Cap*) 200 mg PO TID PRN PRN Reason: COUGH Last Admin: 07/04/18 08:53 Dose: 200 mg Docusate Sodium (Colace Cap*) 100 mg PO BID [facility] Last Admin: 07/05/18 09:01 Dose: 100 mg Ferrous Sulfate (Ferrous Sulfate Tab*) 325 mg PO DAILY [facility] Last Admin: 07/05/18 09:01 Dose: 325 mg Folic Acid (Folvite Tab*) 1 mg PO DAILY [facility] Last Admin: 07/05/18 09:01 Dose: 1 mg Furosemide (Lasix Tab*) 40 mg PO DAILY [facility] Last Admin: 07/05/18 14:57 Dose: 40 mg Hydralazine HCl (Apresoline Iv*) 10 mg IV SLOW PU Q4H PRN PRN Reason: SYSTOLIC BP GREATER THAN: Vancomycin HCl 750 mg/ Sodium (Chloride) 250 mls @ 166.667 mls/hr IVPB 0100, 1300 [facility]; Protocol Last Admin: 07/05/18 13:25 Dose: 166.667 mls/hr Cefepime HCl 1 gm/ Sodium (Chloride) 50 mls @ 100 mls/hr IVPB Q24H [facility] Last Admin: 07/05/18 09:41 Dose: 100 mls/hr Levothyroxine Sodium (Synthroid Tab*) 12.5 mcg PO DAILY@0600 [facility] Last Admin: 07/05/18 05:25 Dose: 12.5 mcg Metoprolol Tartrate (Lopressor Tab*) 12.5 mg PO Q12HR [facility] Last Admin: 07/05/18 07:42 Dose: 12.5 mg Nystatin (Nystatin Top Powder*) 1 applic TOPICAL BID [facility] Last Admin: 07/05/18 09:14 Dose: 1 applic Ondansetron HCl (Zofran Inj*) 4 mg IV Q4H PRN PRN Reason: NAUSEA/VOMITING Pharmacy Consult (Vancomycin Per Pharmacy*) 1 note FOLLOW UP . PRN PRN Reason: PER PROTOCOL Prednisone (Deltasone Tab*) 40 mg PO DAILY [facility] Last Admin: 07/05/18 09:01 Dose: 40 mg Senna (Senokot Tab*) 1 tab PO BID [facility] Last Admin: 07/05/18 09:01 Dose: 1 tab Spironolactone (Aldactone Tab*) 25 mg PO DAILY [facility] Vital Signs - 8 hr 07/05/18 07/05/18 11:40 15:16 Temperature 97.4 F 98.0 F Pulse Rate 61 66 Respiratory 16 16 Rate Blood Pressure 145/44 164/54 (mmHg) O2 Sat by Pulse 96 97 Oximetry Oxygen Devices in Use Now: None Appearance: NAD Eyes: No Scleral Icterus, PERRLA Ears/Nose/Mouth/Throat: NL Teeth, Lips, Gums, Clear Oropharnyx Neck: NL Appearance and Movements; NL JVP, Trachea Midline Respiratory: Symmetrical Chest Expansion and Respiratory Effort, - - rhonchi up 1/2 from base Cardiovascular: - - 2/6 NICOLE LUSB Abdominal: NL Sounds; No Tenderness; No Distention, No Hepatosplenomegaly Lymphatic: No Cervical Adenopathy Extremities: - - trace edema Neurological: Alert and Oriented x 3 Result Diagrams: 07/05/18 07:05 07/05/18 12:14 Microbiology and Other Data: Microbiology 07/04/18 00:00 Gram Stain - Final Hip Left 07/03/18 23:11 Gram Stain - Final Sputum Assess/Plan/Problems-Billing Assessment: 87 yo F h/o hemiarthroplasty in 04/2018, afib, cad, ckd pw LH found with hyponatremia, SIM and concern for underlying thigh abscess - Patient Problems (1) Hyponatremia Comment: Improved with fluid challange - supports hypovolemic hyponatremia 10meq/24hr change. Hold on additional fluids (2) Heart failure with preserved ejection fraction Comment: acute decompensation in setting of holding lasix and fluid bolus. No SOB but worsening cough and lung exam. Lasix 40mg today and reevaluate need and sodium level tomorrow (3) Acute kidney failure Comment: suspect pre renal imrpoved with NS (4) Abscess Comment: cefepime and vanco to OR tomorrow for washout xarelto held today npo midnight (5) Atrial fibrillation Comment: sanjeev garcia 07/05 amiodarone (6) Hypertension Comment: restart aldactone tomorrow lasix still on hold pending Na check cw metoprolol (7) DVT prophylaxis Comment: sanjeev on hold
[2018-07-05] MEDS: hydrALAZINE IV* 20 MG/ML VIAL IV SLOW PU PRN (23:19)
[2018-07-06] MEDS: Vancomycin(*) 750 MG in NS 0.9% 250 ML* 250 ML IVPB SCH ×2 (01:11→14:14)
[2018-07-06] MEDS: Levothyroxine TAB* 25 MCG TAB PO SCH (05:42)
[2018-07-06] MEDS: hydrALAZINE IV* 20 MG/ML VIAL IV SLOW PU PRN (06:15)
[2018-07-06] MEDS ORDERED: Magnesium Sulfate 2 GM IV* 2 GM/50 ML BAG IVPB ONE ×2 (06:58→12:30)
[2018-07-06] MEDS ORDERED: Magnesium Sulfate 2 GM IV* 2 GM/50 ML BAG ONE (07:08)
[2018-07-06 07:48] LABS: ABS Basophils 0 10^3/ul (0-0.2); ABS Eosinophils 0 10^3/ul (0-0.6); ABS Lymphocytes 1.3 10^3/ul (1.0-4.8); ABS Monocytes 1.3 10^3/ul (0-0.8); ABS Neutrophils 9.7 10^3/ul (1.5-7.7); ABS Nucleated RBC 0 10^3/ul; Eosinophil % 0 %; Hematocrit 27 % (33-41); Hemoglobin 8.9 g/dL (12.0-16.0); Lymphocyte % 10.7 %; Mean Corpuscular HGB Conc 33 g/dL (31-36); Mean Corpuscular Hemoglobin 30 pg (27-31); Mean Corpuscular Volume 91 fL (80-97); Mean Platelet Volume 6.1 fL (7.4-10.4); Nucleated Red Blood Cells % 0; Platelet Count 281 10^3/uL (150-450); Red Blood Count 2.98 10^6 /uL (3.70-4.87); Red Cell Distribution Width 16 % (10.5-15); White Blood Count 12.4 10^3/uL (3.5-10.8)
[2018-07-06] MEDS ORDERED: Metoprolol Tartrate IV* 1 MG/ML 5 ML VIAL IV ONE (07:55)
[2018-07-06] MEDS ORDERED: Metoprolol Tartrate IV* 1 MG/ML 5 ML VIAL ONE (07:57)
[2018-07-06] MEDS: Amiodarone TAB* 200 MG PO SCH (08:01)
[2018-07-06 08:02] LABS: C Reactive Protein 52.36 mg/L (<8.01); Calcium 8.8 mg/dL (8.6-10.3); EGFR African American 51.4 (>60); EGFR Non-African American 42.5 (>60); Magnesium 1.9 mg/dL (1.9-2.7)
[2018-07-06] MEDS ORDERED: Amiodarone 150 MG IVPREMIX* 150 MG/100 ML BAG IV ONE (08:03)
[2018-07-06] MEDS ORDERED: Amiodarone 360 MG IVPREMIX* 360 MG/200 ML BAG IV ONE (08:04)
--- NOTE | 2018-07-06 08:24 | PN ---
Progress Note - Progress Note Date of Service: 07/06/18 Note: Brief note: Called for 2 episodes of wide complex tachyarrhythmia on tele both episodes lasting >30 seconds Patient was asymptomatic, no palps, CP, SOB, LH Notably she received diuresis yesterday for increased pulmonary edema and electrolytes from this AM are still pending She also has been receiving 1/2 dose home metoprolol. EKG nsr and did not capture wide complex tachycardia Tele review does show several beats of apparent afib preceding wide complex arrhythmia in both instances. Administered 5mg IV metoprolol now Discussed care with cardiology who recommend transfer to ICU and load with amiodarone IV Cardiology will consult Discussed with nursing
[2018-07-06] MEDS: Spironolactone TAB* 25 MG PO SCH (09:15)
[2018-07-06] MEDS: Metoprolol Tartrate TAB* 25 MG PO SCH ×2 (09:15→19:58)
[2018-07-06] MEDS: Aspirin 81 mg CHEW TAB* 81 MG TAB.CHEW PO SCH (09:15)
[2018-07-06] MEDS: Ferrous Sulfate TAB* 325 MG PO SCH (09:15)
[2018-07-06] MEDS: predniSONE TAB* 20 MG PO SCH (09:15)
[2018-07-06] MEDS: Senna TAB PO SCH ×2 (09:15→19:58)
[2018-07-06] MEDS: Docusate CAP* 100 MG PO SCH ×2 (09:15→19:58)
[2018-07-06] MEDS: Folic Acid TAB* 1 MG PO SCH (09:15)
[2018-07-06] MEDS: Nystatin TOP POWDER* 15 GM BTL TOPICAL SCH ×2 (09:18→19:59)
[2018-07-06] MEDS: Cefepime ADVAN(*) 1 GM in NS 0.9% 50 ML* 50 ML IVPB SCH (09:23)
[2018-07-06 10:09] LABS: Erythrocyte Sed Rate 69 mm/Hr (0-29)
[2018-07-06] MEDS ORDERED: Furosemide IV* 10 MG/ML VIAL (40 MG) IV SLOW PU ONE (12:21)
--- NOTE | 2018-07-06 12:28 | PN ---
Subjective Date of Service: 07/06/18 Interval History: Events reviewed Wide complex tachy this AM with concern for VT s/p transfer to ICU, metoprolol IV x1 and initiation of amio load No additional arrythmias detected after metoprolol Pt has remained asymptomatic +cough this AM - non productive Anxious prior to OR this AM but OR now canceled for today Denies SOB, CP, LH, CP Has not been ambulating Objective Active Medications: Acetaminophen (Tylenol Tab*) 650 mg PO Q4H PRN PRN Reason: FEVER/PAIN Last Admin: 07/04/18 00:54 Dose: 650 mg Albuterol (Ventolin 2.5 Mg/3 Ml Neb.[place]*) 2.5 mg INH [id number] AWAKE PRN PRN Reason: sob/wheezing Amiodarone HCl (Cordarone Tab*) 200 mg PO EVERY OTHER DAY [facility] Last Admin: 07/06/18 08:01 Dose: 200 mg Amiodarone HCl (Cordarone Tab*) 300 mg PO EVERY OTHER DAY [facility] Last Admin: 07/05/18 09:09 Dose: 300 mg Aspirin (Aspirin 81 Mg Chew Tab*) 81 mg PO DAILY [facility] Last Admin: 07/06/18 09:15 Dose: 81 mg Atorvastatin Calcium (Lipitor*) 40 mg PO 1700 [facility] Last Admin: 07/05/18 16:53 Dose: 40 mg Docusate Sodium (Colace Cap*) 100 mg PO BID [facility] Last Admin: 07/06/18 09:15 Dose: Not Given Ferrous Sulfate (Ferrous Sulfate Tab*) 325 mg PO DAILY [facility] Last Admin: 07/06/18 09:15 Dose: Not Given Folic Acid (Folvite Tab*) 1 mg PO DAILY [facility] Last Admin: 07/06/18 09:15 Dose: Not Given Furosemide (Lasix Iv*) 40 mg IV SLOW PU ONCE ONE Stop: 07/06/18 12:22 Furosemide (Lasix Tab*) 40 mg PO DAILY [facility] Hydralazine HCl (Apresoline Iv*) 10 mg IV SLOW PU Q4H PRN PRN Reason: SYSTOLIC BP GREATER THAN: Last Admin: 07/06/18 06:15 Dose: 10 mg Vancomycin HCl 750 mg/ Sodium (Chloride) 250 mls @ 166.667 mls/hr IVPB 0100, 1300 [facility]; Protocol Last Admin: 07/06/18 01:11 Dose: 166.667 mls/hr Cefepime HCl 1 gm/ Sodium (Chloride) 50 mls @ 100 mls/hr IVPB Q24H [facility] Last Admin: 07/06/18 09:23 Dose: 100 mls/hr Amiodarone HCl (Nexterone 360 Mg/200 Ml Ivpremix*) 360 mg in 200 mls @ 33.333 mls/hr IV ONCE ONE Stop: 07/06/18 14:03 Last Admin: 07/06/18 09:18 Dose: 33.333 mls/hr Amiodarone HCl (Nexterone 360 Mg/200 Ml Ivpremix*) 360 mg in 200 mls @ 16.667 mls/hr IV .SEE PROTOCOL [facility] Levothyroxine Sodium (Synthroid Tab*) 12.5 mcg PO DAILY@0600 [facility] Last Admin: 07/06/18 05:42 Dose: 12.5 mcg Metoprolol Tartrate (Lopressor Tab*) 25 mg PO BID [facility] Last Admin: 07/06/18 09:15 Dose: 25 mg Nystatin (Nystatin Top Powder*) 1 applic TOPICAL BID [facility] Last Admin: 07/06/18 09:18 Dose: Not Given Ondansetron HCl (Zofran Inj*) 4 mg IV Q4H PRN PRN Reason: NAUSEA/VOMITING Pharmacy Consult (Vancomycin Per Pharmacy*) 1 note FOLLOW UP . PRN PRN Reason: PER PROTOCOL Pharmacy Profile Note (Vancomycin Trough Check) 1 note FOLLOW UP 1300 ONE Stop: 07/08/18 13:01 Prednisone (Deltasone Tab*) 40 mg PO DAILY [facility] Last Admin: 07/06/18 09:15 Dose: 40 mg Senna (Senokot Tab*) 1 tab PO BID [facility] Last Admin: 07/06/18 09:15 Dose: Not Given Spironolactone (Aldactone Tab*) 25 mg PO DAILY [facility] Last Admin: 07/06/18 09:15 Dose: 25 mg Vital Signs - 8 hr 07/06/18 07/06/18 07/06/18 06:58 07:31 07:33 Temperature 98.3 F 98.2 F Pulse Rate 77 79 78 Respiratory 16 20 Rate Blood Pressure 129/46 134/41 (mmHg) O2 Sat by Pulse 96 95 94 Oximetry 07/06/18 07/06/18 07/06/18 08:45 08:51 09:00 Temperature 97 F Pulse Rate 72 70 70 Respiratory 22 16 9 Rate Blood Pressure 145/65 145/65 143/55 (mmHg) O2 Sat by Pulse 94 96 94 Oximetry 07/06/18 07/06/18 07/06/18 09:14 09:15 09:22 Temperature Pulse Rate 68 67 Respiratory 16 18 19 Rate Blood Pressure 143/43 134/56 (mmHg) O2 Sat by Pulse 96 96 Oximetry 07/06/18 07/06/18 07/06/18 09:25 09:30 09:45 Temperature Pulse Rate 63 62 60 Respiratory 13 17 15 Rate Blood Pressure 154/57 143/55 139/51 (mmHg) O2 Sat by Pulse 96 95 97 Oximetry 07/06/18 07/06/18 07/06/18 10:00 10:16 10:30 Temperature Pulse Rate 57 55 55 Respiratory 21 14 15 Rate Blood Pressure 143/57 129/67 143/67 (mmHg) O2 Sat by Pulse 96 96 96 Oximetry 07/06/18 07/06/18 07/06/18 10:45 11:00 11:01 Temperature Pulse Rate 58 59 58 Respiratory 18 18 20 Rate Blood Pressure 154/66 149/47 (mmHg) O2 Sat by Pulse 96 96 98 Oximetry 07/06/18 07/06/18 07/06/18 11:16 11:30 11:45 Temperature Pulse Rate 57 56 56 Respiratory 18 15 15 Rate Blood Pressure 147/51 150/59 152/68 (mmHg) O2 Sat by Pulse 95 92 92 Oximetry 07/06/18 07/06/18 07/06/18 12:00 12:01 12:15 Temperature 97.3 F Pulse Rate 58 57 59 Respiratory 18 19 22 Rate Blood Pressure 145/54 147/68 (mmHg) O2 Sat by Pulse 97 96 96 Oximetry Oxygen Devices in Use Now: None Appearance: NAD Eyes: No Scleral Icterus, PERRLA Ears/Nose/Mouth/Throat: Clear Oropharnyx, Mucous Membranes Moist Neck: NL Appearance and Movements; NL JVP, Trachea Midline Respiratory: Symmetrical Chest Expansion and Respiratory Effort, - - rhonchorous throughout Cardiovascular: RRR Abdominal: NL Sounds; No Tenderness; No Distention, No Hepatosplenomegaly Lymphatic: No Cervical Adenopathy Skin: - - left wound not examined today Neurological: Alert and Oriented x 3 Result Diagrams: 07/06/18 07:26 07/06/18 07:26 Microbiology and Other Data: Microbiology 07/04/18 00:00 Gram Stain - Final Hip Left 07/03/18 23:11 Gram Stain - Final Sputum Assess/Plan/Problems-Billing Assessment: 87 yo F h/o hemiarthroplasty in 04/2018, afib, cad, ckd pw LH found with hyponatremia, SIM and concern for underlying thigh abscess with stay cb wide complex tachycardia concerning for VT - Patient Problems (1) VT (ventricular tachycardia) Comment: appreciate cardiology consult load amiodarone x 24 hrs then restart PO home dose K>4 and Mg >4 (2) Hyponatremia Comment: Improved with fluid challange - supports hypovolemic hyponatremia Holding additional fluids (3) Heart failure with preserved ejection fraction Comment: acute decompensation in setting of holding lasix and fluid bolus. No SOB but worsening cough and lung exam. Lasix IV 40mg x 1 again today then restart 40 PO tomorrow (4) Acute kidney failure Comment: suspect pre renal imrpoved with NS (5) Abscess Comment: cefepime and vanco CRP improving OR postponed 2/ concerning wide complex tachyarrhythmia xarelto held prior to surgery (6) Atrial fibrillation Comment: sanjeev held 07/05 amiodarone metoprolol (of note pt has written copy of home meds which include metoprolol XL 50 daily but last cards f/u included carvedilol and not metoprolol). Metoprolol increased to 25mg BID today (7) Hypertension Comment: restarted aldactone 07/06 Lasix metoprolol increased as above (8) DVT prophylaxis Comment: eliquis on hold start HSQ - hold AM if surgery planned
[2018-07-06] MEDS ORDERED: Amiodarone 360 MG IVPREMIX* 360 MG/200 ML BAG IV SCH (12:30)
--- NOTE | 2018-07-06 12:38 | PN ---
Progress Note - Progress Note Date of Service: 07/06/18 SOAP: Subjective: Patient was scheduled for I&D left hip this morning for wound, possible infection, superficial versus deep. Still no hip pain. Had an arrhythmia early this morning. Nursing called ortho/anesthesia/ Hospitalist approximately 45 minutes prior to scheduled surgery time about this. Patient seen by Hospitalist and then assessed by cardiology. Transferred to the ICU, placed on amiodarone drip. Thought to be vtach rather than afib. Patient described having anxiety and heart palpitations during the vtach. Patient's cough continues. Family describes her as lower energy and tired today versus yesterday. Objective: Sleepy, NAD. LLE: - Wound same size, approximately 8mm long - 1.5 x 1.5 cm serous drainage on dressing - NVID - No pain with PROM hip Microbiology 07/04/18 00:00 Hip Left Gram Stain - Final 07/04/18 00:00 Hip Left Wound Culture - Final Corynebacterium Striatum 07/03/18 23:11 Sputum Gram Stain - Final 07/03/18 23:11 Sputum Sputum Culture - Final Normal Brooke 07/03/18 22:35 Urine Urine Culture - Final Klebsiella Pneumoniae 07/03/18 22:54 Blood Venous Aerobic Blood Culture - Preliminary 07/03/18 22:54 Blood Venous Anaerobic Blood Culture - Preliminary No Growth Day 2 No Growth Day 2 07/03/18 22:22 Blood Venous Aerobic Blood Culture - Preliminary 07/03/18 22:22 Blood Venous Anaerobic Blood Culture - Preliminary No Growth Day 2 No Growth Day 2 Selected Entries 07/06/18 07/06/18 07/06/18 03:17 07:31 07:33 Temperature 97.8 F 98.3 F 98.2 F Pulse Rate Heart Rate Respiratory Rate Blood Pressure (mmHg) O2 Sat by Pulse Oximetry 07/06/18 07/06/18 08:51 12:15 Temperature 97 F 97.3 F Pulse Rate 59 Heart Rate 59 Respiratory 22 Rate Blood Pressure 147/68 (mmHg) O2 Sat by Pulse 96 Oximetry Laboratory Tests 07/03/18 07/04/18 07/04/18 20:27 06:15 06:15 WBC 13.1 H 10.2 Neut % (Auto) 82.8 92.4 ESR Sodium 119 L* Creatinine 1.47 H C-Reactive Protein 04/07/05/18 07/05/18 07:05 07:05 07:05 WBC 12.4 H Neut % (Auto) 86.5 ESR 70 H Sodium 127 L D Creatinine 1.18 H C-Reactive Protein 07/05/18 07/05/18 07/05/18 07:05 12:14 12:14 WBC Neut % (Auto) ESR Sodium 126 L Creatinine 1.22 H 1.21 H C-Reactive Protein 96.42 H 07/06/18 07/06/18 07:26 07:26 WBC 12.4 H Neut % (Auto) 78.4 ESR 69 H Sodium 129 L Creatinine 1.20 H C-Reactive Protein 52.36 H Assessment: 1. HD 3 hyponatremia, weakness 2. UTI, indwelling bladder catheter 3. Persistent cough with some production 4. L hip incisional wound, small; possible infection 5. 04/2018 L hip hemiarthroplasty 6. VTach Plan: - Continue broad spectrum IV antibiotics - Continue DSD changed once daily. Please place Providone swabs bedside so the wound can be swabbed with each dressing change. - Medicine/Cards recommended against surgery given VTach as long as surgery is not an emergency. It is not an emergency so we cancelled today's case. - While I hope to treat this wound and possible soft tissue infection aggressively given the presence of hip arthroplasty, I make clear to Hospitalist that there is no clear hip infection present so I would continue to look for and treat other sources of infection (urinary, respiratory) that may lead to the elevated CRP and WBC. - Unclear if Corynebacterium Striatum wound culture obtained on Saturday from wound is skin colonization versus infection - We will plan on I&D Saturday or Saturday when patient is cleared by Hospitalist/ Cards - ID consult Saturday
[2018-07-06] MEDS: Heparin VIAL(*) 5000 UNITS/ML VIAL (FIVE THOUSAND) SUBCUT SCH ×2 (13:20→22:09)
--- NOTE | 2018-07-06 14:28 | CONS ---
CC: Dr. Susy Quevedo; Dr. Talib Cisneros CARDIOLOGY CONSULTATION REPORT: DATE OF CONSULT: 07/06/18 REFERRAL PHYSICIAN: Dr. Galo Cowan. REASON FOR CARDIOLOGY CONSULTATION: Ventricular tachycardia. HISTORY OF PRESENT ILLNESS: I was kindly asked by Dr. Cowan to perform cardiology consultation for Ms. Sherwood, who is an 87-year-old lady with a history of bioprosthetic aortic valve replacement in 2012 and right coronary artery bare-metal stent in October of 2016 as well as paroxysmal atrial fibrillation, who was admitted to the hospital several days ago with hyponatremia. Subsequently, there is concern that she has a left hip replacement fluid collection. This morning, she developed a rapid wide complex tachycardia, most consistent with ventricular tachycardia on review of the strip. She did not have any palpitations at that time. She does have shortness of breath with cough and she denies chest pain. PAST CARDIAC HISTORY: The patient is followed by my partner, Dr. Cisneros. Her cardiac history includes bioprosthetic aortic valve replacement in 2012 at [facility] for aortic stenosis. She had non-Q-wave SC on 10/12/16 and underwent cardiac catheterization on 10/15/16; distal left main 30%, LAD no significant stenosis, circumflex no significant stenosis, RCA with 90% very proximal stenosis for which she received bare-metal stent placement. Last echocardiogram completed 05/04/18 showed normal left ventricular ejection fraction greater than 65% with mild concentric left ventricular hypertrophy, moderate-to- severe left atrial dilatation, normally functioning bioprosthetic aortic valve replacement, mild mitral regurgitation, mild tricuspid regurgitation with moderate pulmonary hypertension, mild dilatation of the ascending aorta; findings appeared similar to August 2016. She also has a history of paroxysmal atrial fibrillation for which she has received multiple cardioversions including last 06/09/18. Her p.o. maintenance amiodarone dose was increased at that time. PAST MEDICAL HISTORY: Other past medical history includes hypertension, hyperlipidemia, chronic kidney disease, chronic uterine mass, left hip replacement with concern for infection with wound on the left side, morbid obesity, hypothyroidism, constipation, iron deficiency anemia. MEDICATIONS: Outpatient medications: 1. Tylenol p.r.n. 2. Amiodarone 200 mg alternating with 300 mg po qod 3. Eliquis 5 mg p.o. b.i.d. 4. Aspirin 81 mg once a day. 5. Lipitor 40 mg once a day. 6. Lasix 40 mg once a day. 7. Synthroid 125 mcg once a day. 8. Metoprolol succinate 50 mg p.o. b.i.d. 9. Aldactone 25 mg once a day. 10. Potassium chloride 20 mEq once a day. ALLERGIES TO MEDICATIONS: None. She denies shrimp, seafood, or dye allergy. FAMILY HISTORY: Significant for cardiac disease, stroke, and cancer. No family history of diabetes. Of note, the patient is accompanied by her daughter , Bisi Christine, throughout this cardiology consultation in the intensive care unit. SOCIAL HISTORY: The patient does not smoke cigarettes, abuse alcohol. No use of drugs. She has been for 65 years. 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 She does not do formal exercise but does try to stay active when she is feeling well. REVIEW OF SYSTEMS: She denies personal history of stroke, cancer, vomiting of blood, coughing up blood, bright red blood per rectum, bleeding stomach ulcers currently, renal calculi, cholelithiasis, asthma. She has COPD. She denies pneumonia, tuberculosis, sleep apnea, home oxygen use, diabetes. She has hypertension. She has a history of palpitations when she has atrial fibrillation, but again none noted this morning. She had runs of V-tach greater than 30 seconds. Denies psychiatric illnesses, lupus, psoriasis, seizures, Parkinson disease, myasthenia gravis. She has hypothyroidism and is on replacement. She denies liver disorders. She has chronic kidney disease. She denies claudication symptoms, pulmonary emboli, deep venous thrombosis, peripheral arterial disease. She has a history of peripheral edema. She has no current heartburn. All other review of systems are negative x14 except as above. PHYSICAL EXAM: Height 5 feet 4 inches, weight 213 pounds, pulse 55, blood pressure 143/67, O2 saturation 96%. General: She is a chronically ill- appearing woman, who is having some paroxysms of cough and appears pale, in no acute distress while resting. HEENT: Shows cranium is normocephalic and atraumatic. She has dry mucosal membranes. Neck veins revealed JVP of 10 cm. No carotid bruits. Visible skin warm and perfused. Affect appropriate. She appears grossly oriented. Mild kyphoscoliosis on recumbent back exam. Lungs revealed diffuse rhonchi, questionable wheezes. Cardiac Exam: S1 and S2, regular rate. A 2/6 systolic ejection murmur heard without radiation. There is no rub, no gallop. PMI is nondisplaced. Abdomen is soft, appears benign. Extremities: With trivial to 1+ peripheral edema. Pulses appear grossly intact. Hip exam as per Hospitalist Medicine and Orthopedic Surgery. DIAGNOSTIC STUDIES/LAB DATA: The patient completed a 12-lead on 07/06/18 at 7: 17 a.m. shows sinus rhythm at 78 beats per minute with probable left atrial enlargement, minor ST changes laterally. Telemetry strips reviewed, which shows runs of what appears to be V-tach (although difficult to completely exclude AF with aberrancy) for greater than 30 seconds x2 episodes.Chest Xray report per radiology 07/06/18 reports pulmonary vascular congestion. White blood cell count 12.4, hematocrit 27, platelet count 281, sed rate 69. Sodium 129, it had been 119 on admission; potassium 4.0; chloride 95, bicarbonate 26, BUN 30, creatinine of 1.2 and it has been as high as 1.47, magnesium 1.9. TSH is 2.89 on admission. Corynebacterium striatum growth from wound culture. Blood cultures, no growth to date. Urine culture positive for Klebsiella. IMPRESSION: Ms. Sherwood is a pleasant 87-year-old woman with history of bioprosthetic aortic valve replacement in 2012, RCA bare-metal stent in October of 2016 and paroxysmal atrial fibrillation, now admitted with hyponatremia and concern for left hip replacement site fluid collection infection who has been found to have long runs of asymptomatic ventricular tachycardia this morning ( again difficult to completely exclude atrial fibrillation with aberrancy, but that seems less likely). Since re- bolusing her and placing her on amiodarone infusion, her ventricular tachycardia has now again been suppressed. Her ventricular tachycardia may be driven by her current pulmonary status with significant rhonchi and coughing noted as well as concern for left hip replacement infection and possibly urinary tract infection. I have discussed this in detail with the patient and her daughter and I am making the following recommendations with which they are in agreement. RECOMMENDATIONS: 1. We will complete re-load of the amiodarone drip and then once she has completed the drip, we will place her amiodarone 400 mg p.o. b.i.d. I would like to increase the beta-emmett further, but there is some concern for wheezing on her exam, so will allow for pulmonary optimization now and then can reevaluate. I do feel continued diuresis is appropriate given concern for volume overload (as diuretic held on admission appropriately due to hyponatremia ) while following serum sodium closely. 2. For now, we will put a hold her left hip replacement infection drainage surgery unless it is felt emergent until she is more stable from a cardiac standpoint. 3. Continue aspirin, beta-emmett, and statin for history of CAD with no angina. 4. Other management including regarding pulmonary status and infectious disease issues as per the hospitalist medicine physician and orthopedic surgeon. I have discussed the case with Dr. Galo Cowan. 5. The patient should follow up with her usual house furnishings supervisor, Dr. Cisneros, post discharge. Dear Dr. Galo Cowan, many thanks for asking me to participate in the cardiovascular consultative care of Ms. Sherwood. Please do not hesitate to contact me if you have any questions or concerns regarding the patient's cardiovascular consultative care. We look forward to following the patient with you. [id number]/CPS #: [id number] DONNA
[2018-07-06] MEDS: Atorvastatin* 40 MG TAB PO SCH (19:58)
[2018-07-07] MEDS: Vancomycin(*) 750 MG in NS 0.9% 250 ML* 250 ML IVPB SCH ×2 (00:52→12:46)
[2018-07-07] MEDS: hydrALAZINE IV* 20 MG/ML VIAL IV SLOW PU PRN (03:19)
[2018-07-07] MEDS: Levothyroxine TAB* 25 MCG TAB PO SCH (05:13)
[2018-07-07] MEDS: Metoprolol Tartrate TAB* 25 MG PO SCH ×2 (08:11→20:13)
[2018-07-07] MEDS: predniSONE TAB* 20 MG PO SCH (08:21)
[2018-07-07] MEDS: Aspirin 81 mg CHEW TAB* 81 MG TAB.CHEW PO SCH (08:22)
[2018-07-07] MEDS: Spironolactone TAB* 25 MG PO SCH (08:25)
[2018-07-07] MEDS: Furosemide TAB* 40 MG PO SCH (08:27)
[2018-07-07] MEDS: Amiodarone TAB* 200 MG PO SCH (08:27)
[2018-07-07] MEDS: Folic Acid TAB* 1 MG PO SCH (08:28)
[2018-07-07] MEDS: Ferrous Sulfate TAB* 325 MG PO SCH (08:28)
[2018-07-07] MEDS: Senna TAB PO SCH ×2 (08:29→20:13)
[2018-07-07] MEDS: Docusate CAP* 100 MG PO SCH ×2 (08:29→20:13)
[2018-07-07] MEDS ORDERED: Perflutren Lipid Microsphere* 3 ML VIAL ONE (08:48)
[2018-07-07] MEDS ORDERED: cefTRIAXone(*) 1 GM in NS 0.9% 50 ML* 50 ML IVPB SCH (10:00)
[2018-07-07] MEDS: Cefepime ADVAN(*) 1 GM in NS 0.9% 50 ML* 50 ML IVPB SCH (10:06)
[2018-07-07] MEDS: Nystatin TOP POWDER* 15 GM BTL TOPICAL SCH ×3 (10:07→23:15)
--- NOTE | 2018-07-07 11:44 | PN ---
Date of Service: 07/07/18 Vital Signs: Temp Pulse Resp BP SpO2 FiO2 97 F 57 17 172/51 94 07/07/18 07:57 07/07/18 08:01 07/07/18 08:01 07/07/18 08:01 07/07/18 08:01 Physical Exam: Gen: Alert, well appearing, NAD HEENT: Atraumatic, normocephalic, EOMs intact, tongue midline, oral mucosa moist Lungs: Course bilateral scattered rhonchi, expiratory wheeze, non-productive cough Cardiac: S1S2 present, no gallups or rubs RSR on tele, periods of bradycardia Abdomen: soft, non-tender Extremities: No clubbin, no edema, full ROM, gross motor and sensation intact Neuro: A&Ox4, no gross deficits Fluid Balance (Past 24 Hours): I= 1224 O= 2145 Net -921 Intake & Output 07/05/18 07/06/18 07/07/18 07/08/18 06:59 06:59 06:59 06:59 Intake Total 1973 1300 1224 450 Output Total 2024 3775 2145 Balance -52 -2475 -921 450 Intake: IV Fluids 1240 30 175 ABX - VANCOMYCIN 250 NS (0.9%) 990 30 175 IVPB 590 758 ABX - CEFEPIME 55 50 ABX - VANCOMYCIN 535 608 magnesium 100 Medicated IV 191 CC - Amiodarone 191 Oral 733 680 100 450 Output: Urine 2975 Musa 2025 800 2145 Other: # Bowel Movements 0 0 Labs: Laboratory Results - last 24 hr 07/07/18 07/07/18 05:17 05:17 ESR 39 H C-Reactive Protein 35.10 H Studies: Patient Name: MARJAN BHAT Medical Record#: [id number] Ordering Physician: Galo Cowan MD Acct.#: [id number] : 1930 Age: 87 Sex: F Location: INTENSIVE CARE UNIT Exam Date: 07/06/181124 ADM Status: ADM IN Order Information: CHEST AP OR PORT Accession Number: [id number] CPT: 80448 HISTORY: diffuse rhonchi, eval pulm vasc congestion COMPARISONS: July 05, 2018 VIEWS: 1: frontal AP view of the chest at 11:32 AM FINDINGS: LINES AND TUBES: None. CARDIOMEDIASTINAL SILHOUETTE: The cardiac silhouette is enlarged. The cardiomediastinal silhouette is otherwise normal for portable technique. A prosthetic heart valve is noted. PLEURA: The small left pleural effusion noted on the lateral view on the previous examination is not evident on the frontal projection of the current examination. LUNG PARENCHYMA: There is prominence of the central pulmonary vasculature. ABDOMEN: The upper abdomen is clear. There is no subphrenic gas. BONES AND SOFT TISSUES: The patient is status post median sternotomy. IMPRESSION: CARDIOMEGALY WITH PULMONARY VASCULAR CONGESTION Nutrition: NPO for procedure Impression: This is an 87 year old female with long standing cardiac history that presented to ER initially with dizziness and hyponatremia and admitted for same, orthopedics was consulted at that time for small open wound on her surgical site from her left hemiarthroplasty 2/2 hip fracture repair in May of this year; washout surgery was planned after wound culture revealed corynebacterium striatum, however, it was cancelled when she went into a run of ventricular tachycardia and was transferred to ICU for amiodarone loading drip. Plan: Diagnoses: 1. r/o Septic Left Hip, non-healing surgical wound 2. Ventricular Tachycardia 3. Chronic Iron Deficiency Anemia 4. Stage 4 CKD 5. Paroxysmal Afib 6. Hx of CAD 7. Aortic Stenosis 8. Acute on chronic diastolic HF 9. Klebsiella UTI 2/2 mcfp musa Plan: Neuro - No changes in mental status CV - Continue diuresis with additional dose IV lasix 20mg this afternoon (had PO 40mg this AM) - CXR as above, still looks fluid overloaded and crackles on exam - No Vtach last 24h - Amiodarone drip off, continue back on home PO dosing of amio alternating 200mg/300mg every other day as per Dr. Cisneros - Cardiology following, medically optimized for surgery to proceed - Continue BB at current dose - Continue spironolactone - One dose lovenox now then hold for surgery planned for tomorrow 07/08 - Goal HbG>8.0, Mg>2.0, K>4.0 - Monitor I&O, hemodynamically stable Pulm - Crackles and wheeze noted with vascular congestion and pleural effusion as noted on CXR above - Continue aggressive pulmonary toilet with lasix, duonebs, flutter valve, IS and daily prednisone - Supplemental O2 PRN GI/ - adequately diuresing with musa - Continue cefepime to cover klebsiella on urine culture (oil heaterman musa prior to admission) - Monitor renal function, currently at baseline - heart healthy diet today, NPO after midnight Endocrine - No issues - Continue levothyroxine Musculoskeletal - Drainage from left hip purulent - Wound culture with corynebacterium striatum, sensitivities not routinely performed, will be sent out to [facility] per lab, continue vancomycin for now - Ortho following closely - Plan for OR tomorrow with Dr. Johnson DVT Prophy: SCDs, lovenox Code Status: Full Code Critical Care Time: 60 minutes
[2018-07-07] MEDS: Albuterol/Ipratropium NEB.SOL* Albuterol 2.5 MG/Ipratropium 0.5 MG 3 ML INH SCH ×3 (12:06→19:15)
--- NOTE | 2018-07-07 12:40 | PN ---
Progress Note - Progress Note Date of Service: 07/07/18 SOAP: Subjective: []Pt seen at bedside. She is feeling well, denies any CP, SOB, dizziness, nausea. She is no longer in V tach, amiodarone drip stopped yesterday. Objective: []General: NAD LLE: Left hip with small incisional wound roughly 8mm, small amount of purulence in wound very minimal on dressing. No surrounding erythema and no tenderness. Hip PROM nonpainful. DF/PF intact, sensation intact to light touch distally, DP1+ distally Calves supple and nontender without erythema, edema or palpable cords Assessment: []hyponatremia, weakness UTI, indwelling bladder catheter Persistent cough with some production L hip incisional wound, small; possible infection 04/2018 L hip hemiarthroplasty VTach Plan: - Continue IV antibiotics: vanco, ceftriaxone - Continue DSD changed once daily. Need to have Providone swabs bedside so the wound can be swabbed with each dressing change. - Unclear if Corynebacterium Striatum wound culture obtained on Saturday from wound is skin colonization versus infection - Or tomorrow 07/[address] Johnson may resume heart healthy diet today - ID consult placed Vital Signs Temp 97.5 F 07/07/18 11:35 Pulse 68 07/07/18 12:09 Resp 16 07/07/18 12:09 BP 129/50 07/07/18 11:01 Pulse Ox 98 07/07/18 12:09 Intake & Output 07/06/18 07/07/18 07/07/18 18:59 06:59 18:59 Intake Total 315 909 540 Output Total 1425 720 Balance -1110 189 540 Intake: IV Fluids 65 110 NS (0.9%) 65 110 IVPB 150 608 90 ABX - CEFEPIME 50 50 ABX - VANCOMYCIN 608 NS (0.9%) 40 magnesium 100 Medicated IV 191 CC - Amiodarone 191 Oral 100 450 Output: Jerez 1425 720 Laboratory Last Values WBC 12.4 10^3/uL (3.5-10.8) H 07/06/18 07:26 RBC 2.98 10^6 /uL (3.70-4.87) L 07/06/18 07:26 Hgb 8.9 g/dL (12.0-16.0) L 07/06/18 07:26 Hct 27 % (33-41) L 07/06/18 07:26 MCV 91 fL (80-97) 07/06/18 07:26 MCH 30 pg (27-31) 07/06/18 07:26 MCHC 33 g/dL (31-36) 07/06/18 07:26 RDW 16 % (10.5-15) H 07/06/18 07:26 Plt Count 281 10^3/uL (150-450) 07/06/18 07:26 MPV 6.1 fL (7.4-10.4) L 07/06/18 07:26 Neut % (Auto) 78.4 % 07/06/18 07:26 Lymph % (Auto) 10.7 % 07/06/18 07:26 [place] % (Auto) 10.7 % 07/06/18 07:26 Eos % (Auto) 0 % 07/06/18 07:26 Baso % (Auto) 0.2 % 07/06/18 07:26 Absolute Neuts (auto) 9.7 10^3/ul (1.5-7.7) H 07/06/18 07:26 Absolute Lymphs (auto) 1.3 10^3/ul (1.0-4.8) 07/06/18 07:26 Absolute Monos (auto) 1.3 10^3/ul (0-0.8) H 07/06/18 07:26 Absolute Eos (auto) 0 10^3/ul (0-0.6) 07/06/18 07:26 Absolute Basos (auto) 0 10^3/ul (0-0.2) 07/06/18 07:26 Absolute Nucleated RBC 0 10^3/ul 07/06/18 07:26 Nucleated RBC % 0 07/06/18 07:26 ESR 39 mm/Hr (0-29) H 07/07/18 05:17 Sodium 129 mmol/L (135-145) L 07/06/18 07:26 Potassium 4.0 mmol/L (3.5-5.0) 07/06/18 07:26 Chloride 95 mmol/L (101-111) L 07/06/18 07:26 Carbon Dioxide 26 mmol/L (22-32) 07/06/18 07:26 Anion Gap 8 mmol/L (2-11) 07/06/18 07:26 BUN 30 mg/dL (6-24) H 07/06/18 07:26 Creatinine 1.20 mg/dL (0.51-0.95) H 07/06/18 07:26 Est GFR ( Amer) 51.4 (>60) 07/06/18 07:26 Est GFR (Non-Af Amer) 42.5 (>60) 07/06/18 07:26 BUN/Creatinine Ratio 25.0 (8-20) H 07/06/18 07:26 Glucose 92 mg/dL (70-100) 07/06/18 07:26 Serum Osmolality 256 mOsm/kg (275-295) L 07/03/18 20:27 Lactic Acid 1.2 mmol/L (0.5-2.0) 07/03/18 20:27 Calcium 8.8 mg/dL (8.6-10.3) 07/06/18 07:26 Magnesium 1.9 mg/dL (1.9-2.7) 07/06/18 07:26 Total Bilirubin 0.80 mg/dL (0.2-1.0) 07/03/18 20:27 AST 18 U/L (13-39) 07/03/18 20:27 ALT 19 U/L (7-52) 07/03/18 20:27 Alkaline Phosphatase 73 U/L (34-104) 07/03/18 20:27 C-Reactive Protein 35.10 mg/L (<8.01) H 07/07/18 05:17 B-Natriuretic Peptide 191 pg/mL (<=100) H 07/03/18 20:27 Total Protein 6.9 g/dL (6.4-8.9) 07/03/18 20:27 Albumin 3.4 g/dL (3.2-5.2) 07/03/18 20:27 Globulin 3.5 g/dL (2-4) 07/03/18 20:27 Albumin/Globulin Ratio 1.0 (1-3) 07/03/18 20:27 TSH 2.89 mcIU/mL (0.34-5.60) 07/03/18 20:27 Urine Color Yellow 07/03/18 22:35 Urine Appearance Turbid 07/03/18 22:35 Urine pH 5.0 (5-9) 07/03/18 22:35 Ur Specific [place] 1.008 (1.010-1.030) L 07/03/18 22:35 Urine Protein 1+(30 mg/dl) (Negative) A 07/03/18 22:35 Urine Ketones Negative (Negative) 07/03/18 22:35 Urine Blood 3+ (Negative) A 07/03/18 22:35 Urine Nitrate Negative (Negative) 07/03/18 22:35 Urine Bilirubin Negative (Negative) 07/03/18 22:35 Urine Urobilinogen Negative (Negative) 07/03/18 22:35 Ur Leukocyte Esterase 3+ (Negative) A 07/03/18 22:35 Urine WBC (Auto) 3+(>20/hpf) (Absent) A 07/03/18 22:35 Urine RBC (Auto) 3+(>10/hpf) (Absent) A 07/03/18 22:35 Urine Bacteria 1+ (Absent) A 07/03/18 22:35 Hyaline Casts Present (Absent) A 07/03/18 22:35 Urine Osmolality 279 mOsm/kg (100-1150) 07/03/18 22:35 Ur Creatinine Concen 47.39 mg/dL 07/03/18 22:35 U Sodium Concentration 33 mmol/L 07/03/18 22:35 Urine Glucose Negative (Negative) 07/03/18 22:35 Vancomycin Trough 16.2 mcg/mL 07/05/18 12:14 Influenza A (Rapid) Negative (Negative) 07/03/18 20:45 Influenza B (Rapid) Negative (Negative) 07/03/18 20:45
--- NOTE | 2018-07-07 12:42 | ECHO ---
*[facility]* [place] [address] Fax #: [phone] Transthoracic Echocardiogram Patient: Presley, Height: 64 in / Veronica Peña 162.6 cm : 1930 Weight: 212.6 lb / Study Date: 07/07/2018 96.6 kg Age: 87 BP: 167 / 61 Gender: F BMI/BSA: 36.6 HR: 67 bpm kg/m^2 / 2.01 m^2 *Aluminum Polisher: * Brittni Lafleur *Referring Physician: * Carlos A Luz *Reading Physician: * Talib Cisneros Indications: Abnormal EKG. History: Prosthetic valve. Atrial fibrillation. Coronary artery disease. PMH: NSTEMI. Risk factors: Hypertension. Dyslipidemia. Conclusions Summary: 1. Left ventricle: Systolic function is normal. The estimated ejection fraction is 55-60%. Wall motion is normal; there are no regional wall motion abnormalities. 2. Right ventricle: The cavity size is normal. Wall thickness is mildly to moderately increased. 3. Mitral valve: There is mild regurgitation. 4. Aortic valve: There is trivial regurgitation. The mean systolic gradient is 7.0 mm Hg. Normal function 5. Tricuspid valve: There is mild-moderate regurgitation. 6. Pulmonary arteries: Systolic pressure is mildly to moderately increased. 7. Impressions: Unchanged from the study of 05/05/2018. Study data: Transthoracic echocardiogram. Procedure: Transthoracic echocardiography was performed. Image quality was adequate. Intravenous contrast (Definity, 2 mls) was administered. Image enhancement administered by OSCAR Castro. Complete 2D, spectral Doppler, and color flow Doppler. Location: ICU Patient status: Inpatient. Patient room number: 8. Rhythm: Normal sinus rhythm. Findings Left ventricle: The cavity size is normal. Wall thickness is moderately increased. Systolic function is normal. The estimated ejection fraction is 55-60%. Wall motion is normal; there are no regional wall motion abnormalities. The tissue Doppler parameters are abnormal. Right ventricle: The cavity size is normal. Wall thickness is mildly to moderately increased. Systolic function is normal. Left atrium: The atrium is severely dilated. Right atrium: The atrium is moderately to severely dilated. Mitral valve: The annulus is mildly calcified. The leaflets are mildly thickened. There is no evidence of stenosis. There is mild regurgitation. The valve area is 2.2 cm^2. The valve area index is 1.09 cm^2/m^2. The valve area by pressure half-time is 3.3 cm^2. The valve area index by pressure half-time is 1.63 cm^2/m^2. The valve area (LVOT continuity) is 2.2 cm^2. The valve area index (LVOT continuity) is 1.09 cm^2/m^2. The mean diastolic gradient is 2.0 mm Hg. The peak diastolic gradient is 10.0 mm Hg. Aortic valve: There is a bioprosthetic valve. Transvalvular velocity is within the normal range. There is trivial regurgitation. The valve area by the velocity-time integral method is 1.61 cm^2. The valve area index by the velocity-time integral method is 0.8 cm^2/m^2. The ratio of LVOT to aortic valve peak velocity is 0.48. The valve area by the peak velocity method is 1.52 cm^2. The valve area index by the peak velocity method is 0.76 cm^2/m^2. The ratio of LVOT to aortic valve mean velocity is 0.53. The valve area by the mean velocity method is 1.7 cm^2. The valve area index by the mean velocity method is 0.83 cm^2/m^2. The mean systolic gradient is 7.0 mm Hg. The peak systolic gradient is 20.0 mm Hg. Tricuspid valve: The leaflets are normal thickness. There is no evidence of stenosis. There is mild-moderate regurgitation. Pulmonic valve: The leaflets are normal thickness. There is no evidence of stenosis. There is trivial regurgitation. The peak systolic gradient is 4.0 mm Hg. Aorta: Aortic arch: The aortic arch is appears normal. The aortic root is not dilated. Pericardium: There is no significant pericardial effusion. Pulmonary arteries: Not well visualized. Systolic pressure is mildly to moderately increased. Systemic veins: Inferior vena cava: The vessel is dilated. The respirophasic diameter changes are in the normal range (>= 50%). Measurements Left ventricle Value Ref Aortic valve continued Value Ref GILBERT, LAX 4.8 cm 3.8 - 5.2 Mean grad, S 7.0 mm Hg ----- ESD, LAX 2.5 cm 2.2 - 3.5 Peak grad, S 20.0 mm Hg ----- FS, LAX (H) 47 % 27 - 45 SANDY, VTI 1.61 cm^2 ----- PW, ED, LAX (H) 1.2 cm 0.6 - 0.9 SANDY, Vmax 1.52 cm^2 ----- EF (H) 79 % 54 - 74 E', lat linda, TDI (L) 8.6 cm/sec >=10.0 Mitral valve Value R ef E/e', lat linda, 17 Peak E 1.45 m/sec ---- - TDI Peak A 0.45 m/sec ----- E', med linda, TDI 7.1 cm/sec >=7.0 Mean v, D 0.68 m/sec - ---- E/e', med linda, 20 Decel time 169 ms ---- - TDI PHT 67 ms ----- E', avg, TDI 7.9 cm/sec Mean grad, D 2.0 mm Hg ---- - E/e', avg, TDI (H) 18 <=14 Peak grad, D 10.0 mm Hg - ---- Peak E/A ratio 3.3 ----- LVOT Value Ref MVA, PHT 3.3 cm^2 ----- Diam, S 2.00 cm Area 3.1 cm^2 Pulmonic valve Value Ref Peak brayan, S 1.07 m/sec Peak v, S 1 m/sec ----- Mean grad, S 3 mm Hg Peak grad, S 4.0 mm Hg ----- SV 86 ml Tricuspid valve Value Ref Ventricular septum Value Ref TR peak v (H) 2.9 m/sec <=2.8 IVS, ED, LAX (H) 1.5 cm 0.6 - 0.9 Peak RV-RA grad, S 34 mm Hg ----- Right ventricle Value Ref Aortic root Value Ref GILBERT, LAX 2.1 cm Root diam 3.2 cm <4.1 Pressure, S 42 mm Hg Ascending aorta Value Ref Left atrium Value Ref AAo AP diam, S 3.3 cm ----- AP dim, ES (H) 4.80 cm 2.70 - 3.80 Aortic arch Value Ref ML dim, A4C 5.6 cm Arch diam 3.0 cm ----- SI dim, A4C 7.3 cm Vol/bsa, ES, A/L (H) 82 ml/m^2 16 - 34 Decending aorta Value Ref Aarti peak brayan 0.5 m/sec ----- Right atrium Value Ref SI dim, ES (H) 6.5 cm 3.4 - 5.3 Pulmonary artery Value Ref ML dim, ES, A4C (H) 5.8 cm 2.6 - 4.4 Pressure, S 38.0 mm Hg ----- Estimated RAP 8 mm Hg Inferior vena cava Value Ref Aortic valve Value Ref Diam 2.2 cm ----- Linda diam, ED 1.8 cm Peak v, S 2.21 m/sec VTI, S 42.2 cm Legend: (L) and (H) marisol values outside specified reference range. Prepared and electronically signed by Talib Cisneros 07/07/2018 12:41
[2018-07-07] MEDS ORDERED: Enoxaparin(*) 100 MG/ML SYR SUBCUT ONE (12:54)
[2018-07-07] MEDS ORDERED: Enoxaparin(*) 40 MG/0.4 ML SYR SUBCUT SCH (13:00)
[2018-07-07] MEDS ORDERED: Furosemide IV* 10 MG/ML 2 ML VIAL (20 MG) IV ONE (14:00)
[2018-07-07] MEDS: Atorvastatin* 40 MG TAB PO SCH (17:07)
[2018-07-07] MEDS ORDERED: Amiodarone TAB* 400 MG PO SCH (21:00)
[2018-07-08] MEDS: Vancomycin(*) 750 MG in NS 0.9% 250 ML* 250 ML IVPB SCH (00:02)
[2018-07-08] MEDS: Albuterol/Ipratropium NEB.SOL* Albuterol 2.5 MG/Ipratropium 0.5 MG 3 ML INH SCH ×4 (00:02→11:44)
[2018-07-08] MEDS: Levothyroxine TAB* 25 MCG TAB PO SCH (05:10)
[2018-07-08 05:34] LABS: ABS Basophils 0 10^3/ul (0-0.2); ABS Eosinophils 0 10^3/ul (0-0.6); ABS Lymphocytes 1.4 10^3/ul (1.0-4.8); ABS Monocytes 1.2 10^3/ul (0-0.8); ABS Neutrophils 7.8 10^3/ul (1.5-7.7); ABS Nucleated RBC 0 10^3/ul; Eosinophil % 0.1 %; Hematocrit 25 % (33-41); Hemoglobin 8.2 g/dL (12.0-16.0); Lymphocyte % 13.7 %; Mean Corpuscular HGB Conc 34 g/dL (31-36); Mean Corpuscular Hemoglobin 31 pg (27-31); Mean Corpuscular Volume 92 fL (80-97); Mean Platelet Volume 6.1 fL (7.4-10.4); Nucleated Red Blood Cells % 0; Platelet Count 264 10^3/uL (150-450); Red Blood Count 2.68 10^6 /uL (3.70-4.87); Red Cell Distribution Width 16 % (10.5-15); White Blood Count 10.5 10^3/uL (3.5-10.8)
[2018-07-08 05:45] LABS: BUN/Creatinine Ratio 22.4 (8-20); Calcium 8.6 mg/dL (8.6-10.3); EGFR Non-African American 31.4 (>60); Potassium 3.7 mmol/L (3.5-5.0)
[2018-07-08] MEDS: Nystatin TOP POWDER* 15 GM BTL TOPICAL SCH ×2 (08:24→21:39)
[2018-07-08] MEDS: Furosemide TAB* 40 MG PO SCH (08:55)
[2018-07-08] MEDS: Folic Acid TAB* 1 MG PO SCH (08:55)
[2018-07-08] MEDS: Docusate CAP* 100 MG PO SCH ×2 (08:55→21:35)
[2018-07-08] MEDS: Senna TAB PO SCH ×2 (08:55→21:35)
[2018-07-08] MEDS: predniSONE TAB* 20 MG PO SCH (08:55)
[2018-07-08] MEDS: Amiodarone TAB* 200 MG PO SCH (08:55)
[2018-07-08] MEDS: Aspirin 81 mg CHEW TAB* 81 MG TAB.CHEW PO SCH (08:56)
[2018-07-08] MEDS: Metoprolol Tartrate TAB* 25 MG PO SCH ×2 (08:56→21:36)
[2018-07-08] MEDS: Spironolactone TAB* 25 MG PO SCH (08:56)
[2018-07-08] MEDS: Ferrous Sulfate TAB* 325 MG PO SCH (08:56)
[2018-07-08] MEDS: Cefepime ADVAN(*) 1 GM in NS 0.9% 50 ML* 50 ML IVPB SCH (09:07)
[2018-07-08 10:56] LABS: C Reactive Protein 20.08 mg/L (<8.01)
[2018-07-08] MEDS ORDERED: Albuterol/Ipratropium NEB.SOL* Albuterol 2.5 MG/Ipratropium 0.5 MG 3 ML INH PRN (12:13)
[2018-07-08 12:15] LABS: Erythrocyte Sed Rate 18 mm/Hr (0-29)
[2018-07-08] MEDS ORDERED: Vancomycin Trough Check NOTE FOLLOW UP ONE (13:00)
--- NOTE | 2018-07-08 13:09 | PN ---
Progress Note - Progress Note Date of Service: 07/08/18 SOAP: Subjective: []Pt seen at bedside. She feels well, no left hip pain. Denies CP, SOB, dizziness, nausea. Objective: []General: NAD LLE: Left hip with small incisional wound roughly 8mm, wound is dry with no discharge today. No surrounding erythema and no tenderness. Hip AROM and PROM nonpainful. DF/PF intact, sensation intact to light touch distally, DP1+ distally Calves supple and nontender without erythema, edema or palpable cords Assessment: []hyponatremia, weakness UTI, indwelling bladder catheter Persistent cough with some production L hip incisional wound, small; possible infection 04/2018 L hip hemiarthroplasty VTach Plan: - Continue IV antibiotics: vanco, ceftriaxone - Continue DSD changed once daily. Need to have Providone swabs bedside so the wound can be swabbed with each dressing change. - Unclear if Corynebacterium Striatum wound culture obtained on Saturday from wound is skin colonization versus infection - Patient aware and agreeable to OR today 07/[address] Johnson - ID consult in place Vital Signs Temp 98.8 F 07/08/18 11:11 Pulse 66 07/08/18 11:44 Resp 16 07/08/18 11:44 BP 139/61 07/08/18 11:01 Pulse Ox 94 07/08/18 11:44 Intake & Output 07/07/18 07/08/18 07/08/18 18:59 06:59 18:59 Intake Total 540 1044 Output Total 900 1075 Balance -360 -31 Intake: IV Fluids 159 NS (0.9%) 159 IVPB 90 525 ABX - CEFEPIME 50 ABX - VANCOMYCIN 525 NS (0.9%) 40 Oral 450 360 Output: Urine 900 Jerez 1075 Laboratory Last Values WBC 10.5 10^3/uL (3.5-10.8) 07/08/18 05:02 RBC 2.68 10^6 /uL (3.70-4.87) L 07/08/18 05:02 Hgb 8.2 g/dL (12.0-16.0) L 07/08/18 05:02 Hct 25 % (33-41) L 07/08/18 05:02 MCV 92 fL (80-97) 07/08/18 05:02 MCH 31 pg (27-31) 07/08/18 05:02 MCHC 34 g/dL (31-36) 07/08/18 05:02 RDW 16 % (10.5-15) H 07/08/18 05:02 Plt Count 264 10^3/uL (150-450) 07/08/18 05:02 MPV 6.1 fL (7.4-10.4) L 07/08/18 05:02 Neut % (Auto) 74.7 % 07/08/18 05:02 Lymph % (Auto) 13.7 % 07/08/18 05:02 [place] % (Auto) 11.4 % 07/08/18 05:02 Eos % (Auto) 0.1 % 07/08/18 05:02 Baso % (Auto) 0.1 % 07/08/18 05:02 Absolute Neuts (auto) 7.8 10^3/ul (1.5-7.7) H 07/08/18 05:02 Absolute Lymphs (auto) 1.4 10^3/ul (1.0-4.8) 07/08/18 05:02 Absolute Monos (auto) 1.2 10^3/ul (0-0.8) H 07/08/18 05:02 Absolute Eos (auto) 0 10^3/ul (0-0.6) 07/08/18 05:02 Absolute Basos (auto) 0 10^3/ul (0-0.2) 07/08/18 05:02 Absolute Nucleated RBC 0 10^3/ul 07/08/18 05:02 Nucleated RBC % 0 07/08/18 05:02 ESR 18 mm/Hr (0-29) 07/08/18 05:02 Sodium 131 mmol/L (135-145) L 07/08/18 05:02 Potassium 3.7 mmol/L (3.5-5.0) 07/08/18 05:02 Chloride 96 mmol/L (101-111) L 07/08/18 05:02 Carbon Dioxide 25 mmol/L (22-32) 07/08/18 05:02 Anion Gap 10 mmol/L (2-11) 07/08/18 05:02 BUN 35 mg/dL (6-24) H 07/08/18 05:02 Creatinine 1.56 mg/dL (0.51-0.95) H 07/08/18 05:02 Est GFR ( Amer) 38.0 (>60) 07/08/18 05:02 Est GFR (Non-Af Amer) 31.4 (>60) 07/08/18 05:02 BUN/Creatinine Ratio 22.4 (8-20) H 07/08/18 05:02 Glucose 108 mg/dL (70-100) H 07/08/18 05:02 Serum Osmolality 256 mOsm/kg (275-295) L 07/03/18 20:27 Lactic Acid 1.2 mmol/L (0.5-2.0) 07/03/18 20:27 Calcium 8.6 mg/dL (8.6-10.3) 07/08/18 05:02 Magnesium 1.9 mg/dL (1.9-2.7) 07/06/18 07:26 Total Bilirubin 0.80 mg/dL (0.2-1.0) 07/03/18 20:27 AST 18 U/L (13-39) 07/03/18 20:27 ALT 19 U/L (7-52) 07/03/18 20:27 Alkaline Phosphatase 73 U/L (34-104) 07/03/18 20:27 C-Reactive Protein 20.08 mg/L (<8.01) H 07/08/18 05:02 B-Natriuretic Peptide 191 pg/mL (<=100) H 07/03/18 20:27 Total Protein 6.9 g/dL (6.4-8.9) 07/03/18 20:27 Albumin 3.4 g/dL (3.2-5.2) 07/03/18 20:27 Globulin 3.5 g/dL (2-4) 07/03/18 20:27 Albumin/Globulin Ratio 1.0 (1-3) 07/03/18 20:27 TSH 2.89 mcIU/mL (0.34-5.60) 07/03/18 20:27 Urine Color Yellow 07/03/18 22:35 Urine Appearance Turbid 07/03/18 22:35 Urine pH 5.0 (5-9) 07/03/18 22:35 Ur Specific [place] 1.008 (1.010-1.030) L 07/03/18 22:35 Urine Protein 1+(30 mg/dl) (Negative) A 07/03/18 22:35 Urine Ketones Negative (Negative) 07/03/18 22:35 Urine Blood 3+ (Negative) A 07/03/18 22:35 Urine Nitrate Negative (Negative) 07/03/18 22:35 Urine Bilirubin Negative (Negative) 07/03/18 22:35 Urine Urobilinogen Negative (Negative) 07/03/18 22:35 Ur Leukocyte Esterase 3+ (Negative) A 07/03/18 22:35 Urine WBC (Auto) 3+(>20/hpf) (Absent) A 07/03/18 22:35 Urine RBC (Auto) 3+(>10/hpf) (Absent) A 07/03/18 22:35 Urine Bacteria 1+ (Absent) A 07/03/18 22:35 Hyaline Casts Present (Absent) A 07/03/18 22:35 Urine Osmolality 279 mOsm/kg (100-1150) 07/03/18 22:35 Ur Creatinine Concen 47.39 mg/dL 07/03/18 22:35 U Sodium Concentration 33 mmol/L 07/03/18 22:35 Urine Glucose Negative (Negative) 07/03/18 22:35 Vancomycin Trough 33.6 mcg/mL H* 07/08/18 07:05 Influenza A (Rapid) Negative (Negative) 07/03/18 20:45 Influenza B (Rapid) Negative (Negative) 07/03/18 20:45 Blood Type O Positive 07/08/18 07:05 Antibody Screen Negative 07/08/18 07:05
[2018-07-08] MEDS: Atorvastatin* 40 MG TAB PO SCH (16:41)
[2018-07-08] MEDS ORDERED: fentaNYL* 50 MCG/ML 2 ML VIAL (100 MCG VIAL) ONE (17:50)
[2018-07-08] MEDS ORDERED: KETAMINE HCL* 50 MG/ML 10 ML VIAL ONE (17:51)
[2018-07-08] MEDS ORDERED: Midazolam* 1 MG/ML 5 ML VIAL (5 MG) ONE (17:51)
--- NOTE | 2018-07-08 18:20 | PN ---
Date of Service: 07/08/18 Vital Signs: Temp Pulse Resp BP SpO2 FiO2 98.8 F 78 18 142/57 97 07/08/18 11:11 07/08/18 18:01 07/08/18 18:01 07/08/18 18:01 07/08/18 18:01 Physical Exam: Gen: Alert, well appearing, NAD HEENT: Atraumatic, normocephalic, EOMs intact, tongue midline, oral mucosa moist Lungs: Course bilateral scattered rhonchi, expiratory wheeze, non-productive cough improved Cardiac: S1S2 present, no gallups or rubs RSR on tele, periods of bradycardia Abdomen: soft, non-tender Extremities: No clubbing, no edema, full ROM, gross motor and sensation intact Neuro: A&Ox4, no gross deficits Fluid Balance (Past 24 Hours): I= O= Net Intake & Output 07/06/18 07/07/18 07/08/18 07/09/18 06:59 06:59 06:59 06:59 Intake Total 1300 1224 1584 128 Output Total 3775 2145 1975 625 Balance -2475 -921 -391 -497 Intake: IV Fluids 30 175 159 128 NS (0.9%) 30 175 159 128 IVPB 590 758 615 ABX - CEFEPIME 55 50 50 ABX - VANCOMYCIN 535 608 525 NS (0.9%) 40 magnesium 100 Medicated IV 191 CC - Amiodarone 191 Oral 680 100 810 Output: Urine 2975 900 [place] 800 2145 1075 625 Other: # Bowel Movements 0 Labs: Laboratory Results - last 24 hr 07/08/18 07/08/18 07/08/18 05:02 05:02 07:05 WBC 10.5 RBC 2.68 L Hgb 8.2 L Hct 25 L MCV 92 MCH 31 MCHC 34 RDW 16 H Plt Count 264 MPV 6.1 L Neut % (Auto) 74.7 Lymph % (Auto) 13.7 [place] % (Auto) 11.4 Eos % (Auto) 0.1 Baso % (Auto) 0.1 Absolute Neuts (auto) 7.8 H Absolute Lymphs (auto) 1.4 Absolute Monos (auto) 1.2 H Absolute Eos (auto) 0 Absolute Basos (auto) 0 Absolute Nucleated RBC 0 Nucleated RBC % 0 ESR 18 Sodium 131 L Potassium 3.7 Chloride 96 L Carbon Dioxide 25 Anion Gap 10 BUN 35 H Creatinine 1.56 H Est GFR ( Amer) 38.0 Est GFR (Non-Af Amer) 31.4 BUN/Creatinine Ratio 22.4 H Glucose 108 H Calcium 8.6 C-Reactive Protein 20.08 H Vancomycin Trough 33.6 H* Blood Type Antibody Screen 07/08/18 07/08/18 07:05 12:20 WBC RBC Hgb Hct MCV MCH MCHC RDW Plt Count MPV Neut % (Auto) Lymph % (Auto) [place] % (Auto) Eos % (Auto) Baso % (Auto) Absolute Neuts (auto) Absolute Lymphs (auto) Absolute Monos (auto) Absolute Eos (auto) Absolute Basos (auto) Absolute Nucleated RBC Nucleated RBC % ESR Sodium Potassium Chloride Carbon Dioxide Anion Gap BUN Creatinine Est GFR ( Amer) Est GFR (Non-Af Amer) BUN/Creatinine Ratio Glucose Calcium C-Reactive Protein Vancomycin Trough 32.1 H* Blood Type O Positive Antibody Screen Negative Nutrition: heart healthy Impression: Impression: This is an 87 year old female with long standing cardiac history that presented to ER initially with dizziness and hyponatremia and admitted for same, orthopedics was consulted at that time for small open wound on her surgical site from her left hemiarthroplasty 2/2 hip fracture repair in May of this year; washout surgery was planned after wound culture revealed corynebacterium striatum, however, it was cancelled when she went into a run of ventricular tachycardia and was transferred to ICU for amiodarone loading drip. Plan: Diagnoses: 1. r/o Septic Left Hip, non-healing surgical wound 2. Ventricular Tachycardia, resolved 3. Chronic Iron Deficiency Anemia 4. Stage 4 CKD 5. Paroxysmal Afib 6. Hx of CAD 7. Aortic Stenosis 8. Acute on chronic diastolic HF 9. Klebsiella UTI 2/2 halfway musa Plan: Neuro - No changes in mental status CV - CV stable, continue PO amio - Cardiology following, medically optimized for surgery to proceed - Continue BB at current dose - Continue spironolactone - Hold lovenox - Goal HbG>8.0, Mg>2.0, K>4.0 - Monitor I&O, hemodynamically stable Pulm - Crackles and wheeze noted with vascular congestion and pleural effusion as noted on CXR above - Continue aggressive pulmonary toilet with lasix, flutter valve, IS and daily prednisone, change nebs to PNR, much improvement today - Supplemental O2 PRN GI/ - adequately diuresing with musa - DC cefepime 5 days for klebsiella - Monitor renal function, currently at baseline - heart healthy diet post op Endocrine - No issues - Continue levothyroxine Musculoskeletal - Drainage from left hip purulent, would care consult and ID following - Wound culture with corynebacterium striatum, sensitivities not routinely performed, will be sent out to [facility] per lab - Hold vanco, troughs high today, random trough in AM - OR today DVT Prophy: SCDs, lovenox Code Status: Full Code Critical Care Time: 40 minutes
[2018-07-08] MEDS ORDERED: PROCHLORPERAZINE INJ 5 MG/ML 2 ML VIAL IV PRN (19:21)
[2018-07-08] MEDS ORDERED: fentaNYL* 50 MCG/ML 2 ML VIAL (100 MCG VIAL) IV PRN (19:21)
[2018-07-08] MEDS ORDERED: Naloxone* 0.4 MG/ML 1 ML VIAL IV PRN (19:21)
[2018-07-08] MEDS ORDERED: Morphine 4 MG/ML VIAL (1 ml) 4 MG/ML VIAL IV PRN (19:21)
[2018-07-08] MEDS ORDERED: DiMENhydriNATE IV* 50 MG/ML VIAL IV PUSH PRN (19:21)
[2018-07-08] MEDS ORDERED: Phenylephrine 10 MG/ML VIAL* 1 ML VIAL ONE (19:27)
[2018-07-08] MEDS ORDERED: Lidocaine 2% PF * 5 ML VIAL ONE (19:28)
[2018-07-08] MEDS ORDERED: Propofol* 500 MG/50 ML BTL ONE (19:28)
[2018-07-08] MEDS ORDERED: Bupivacaine 0.5% SDV PF* 30ML VIAL ONE (19:28)
[2018-07-08] MEDS ORDERED: Bupivacaine-MPF SPINAL* 7.5 MG/ML - 2ML AMP ONE (19:28)
--- NOTE | 2018-07-08 20:39 | CONS ---
CONSULTATION REPORT: DATE OF CONSULT: 07/08/18 PRIMARY CARE PROVIDER: Dr. Susy Quevedo. PROVIDER REQUESTING CONSULTATION: KIRSTEN Sutton. CONSULTING SERVICE: Infectious Disease. ATTENDING PROVIDER: Dr. Orion Nichols * (dictated by Gris Bishop NP). REASON FOR CONSULT: Left hip infection. IMPRESSION: 1. Left hip infection. She had ultrasound showing a complex mass or fluid collection in the superficial soft tissues in the region, which measures approximately 1.5 cm x 7.5 cm with differential includes evolving hematoma versus abscess. There is purulent drainage noted from the incision. Initial wound cultures showing Corynebacterium striatum. Her leukocytosis has resolved , ESR and CRP are trending down. Orthopedics is planning to take her to surgery for washout later today to see if this is a superficial abscess or if it involves the hip prosthesis or joint space. Corynebacterium striatum can be a pathogen or contaminant. 2. Klebsiella pneumoniae urinary tract infection in the setting of a chronic indwelling urinary catheter. 3. Morbid obesity. 4. Constipation. 5. Chronic kidney disease, stage 3. 6. Atrial fibrillation. 7. Diastolic heart failure. PLAN/RECOMMENDATIONS: The patient has received 5 days of cefepime for her Klebsiella pneumoniae urinary tract infection. I recommend stopping the cefepime at this time. Recommend continuing vancomycin. Further recommendations will be pending based on culture results obtained while in the operating room. HISTORY OF PRESENT ILLNESS: Ms. Sherwood is an 87-year-old female with past medical history significant for paroxysmal atrial fibrillation, on anticoagulation; coronary artery disease, status post NSTEMI; tachy-elvin syndrome; hypertension; hyperlipidemia; chronic kidney disease stage 3 to 4; chronic uterine mass; constipation; iron-deficiency anemia; and aortic stenosis , status post bioprosthetic aortic valve replacement, who was previously hospitalized in May 2018 for a left hip fracture, status post a left hip hemiarthroplasty. She was discharged to [facility] and then was subsequently discharged from there and has been staying with her daughter, is not being very active, needing help to get around. She reported a cough starting on 06/29/18 with congestion and intermittent shortness of breath. She was seen by her primary care provider, was found to have orthostatic hypotension , additionally was complaining of dizziness. She was additionally seen by Dr. Alex with Orthopedics on 07/03/18, at which time she was noted to have a "skin defect at the incision line of the left hip" and was placed on Keflex for possible infection. She did not start the Keflex as she presented to the emergency room for further evaluation of her symptoms. While in the emergency room, she was worked up for weakness and a cough. Chest x- ray as an outpatient showing no acute findings. She was noted to be hyponatremic and the left hip wound was noted to have purulent drainage. She was also found to have pyuria in the setting of an indwelling urinary catheter and [id number] kidney injury, and she was admitted to the hospital. She denies fevers, chills, rash, diarrhea, urinary symptoms, although she has a chronic indwelling urinary catheter. She denies any recent travel. She reports constipation with no bowel movement in approximately 5 days. PAST MEDICAL HISTORY: 1. Paroxysmal atrial fibrillation, on anticoagulation. 2. Hypothyroidism. 3. Coronary artery disease, status post NSTEMI. 4. Tachy-elvin syndrome. 5. Aortic stenosis. 6. Hypertension. 7. Hyperlipidemia. 8. Chronic kidney disease, stage 3 to 4. 9. Chronic benign uterine mass. 10. Constipation. 11. Iron-deficiency anemia. 12. Morbid obesity. 13. Diastolic congestive heart failure. PAST SURGICAL HISTORY: 1. Status post bioprosthetic aortic valve replacement in 2012. 2. Status post left hip bipolar hemiarthroplasty in May of 2018. 3. Status post cataract extractions. 4. Status post left toe surgery. 5. Status post section. MEDICATIONS: Home medications: 1. Potassium chloride 20 mEq by mouth daily. 2. Calcium 600/vitamin D3 one tablet by mouth twice daily. 3. Amiodarone 200 mg every other day alternating with 300 mg on the opposite days. 4. Acetaminophen 650 mg by mouth every 4 hours as needed for fever or pain. 5. Atorvastatin 40 mg by mouth daily. 6. Aspirin 81 mg by mouth daily. 7. Eliquis 5 mg by mouth twice daily. 8. Folic acid 1 mg by mouth daily. 9. Ferrous sulfate 325 mg by mouth daily. 10. Colace 100 mg by mouth 3 times daily. 11. Vitamin B12 1000 mcg by mouth daily. 12. Levothyroxine 12.5 mcg by mouth daily. 13. Glycerin 1 suppository per rectum daily as needed for constipation if no bowel movement after milk of magnesia. 14. Ferrous sulfate 40 mg by mouth every morning. 15. Multivitamin 1 tablet by mouth daily. 16. Metoprolol succinate 50 mg by mouth daily. 17. Milk of magnesia 30 mL by mouth every 72 hours as needed for constipation. 18. MiraLAX 17 g by mouth daily. 19. Nystatin powder apply topical 3 times daily. 20. Nitroglycerin 0.4 mg sublingual every 5 minutes as needed for chest pain. 21. Spironolactone 25 mg by mouth daily. Hospital medications: 1. Acetaminophen 650 mg by mouth every 4 hours as needed for fever or pain. 2. DuoNeb 1 nebulizer inhalation every 4 hours as needed for shortness of breath or wheeze. 3. Amiodarone 200 mg by mouth every other day alternating with 300 mg every other day. 4. Aspirin 81 mg by mouth daily. 5. Atorvastatin 40 mg by mouth daily. 6. Colace 100 mg by mouth twice daily. 7. Ferrous sulfate 325 mg by mouth daily. 8. Folic acid 1 mg by mouth daily. 9. Furosemide 40 mg by mouth daily. 10. Hydralazine 10 mg IV push every 4 hours as needed for systolic blood pressure greater than 180. 11. Levothyroxine 12.5 mcg by mouth daily. 12. Metoprolol tartrate 25 mg by mouth twice daily. 13. Nystatin powder apply topical twice daily. 14. Zofran 4 mg IV every 4 hours as needed for nausea. 15. Prednisone 40 mg by mouth daily. 16. Senokot 1 tablet by mouth twice daily. 17. Spironolactone 25 mg by mouth daily. 18. Vancomycin per pharmacy protocol. 19. Cefepime 1 gm IV daily. ALLERGIES: No known drug allergies. FAMILY HISTORY: Denies family history of recurrent infections. Mother with a history of heart disease. Father with a history of cerebrovascular accident. SOCIAL HISTORY: She denies alcohol, tobacco, or recreational drug use. REVIEW OF SYSTEMS: I performed a 10-point review of systems. All the pertinent positives and negatives are mentioned in the history of present illness. The remaining systems are negative. PHYSICAL EXAM: Vital Signs: Temperature 99.3, heart rate 68, respiratory rate 16, O2 sat 99% on 2 L via nasal cannula, blood pressure 111/41. General Appearance: Alert, pleasant, appears to be in no acute distress. Head: Normocephalic, atraumatic. EENT: Pupils equal and reactive to light. Extraocular movements intact. Mucous membranes moist. No thrush. Neck: Supple. No lymphadenopathy. Neurological: Alert and oriented x3. Cranial nerves II through XII are grossly intact. Cardiovascular: Heart rate is regular. No murmurs, rubs, or gallops. Respiratory: No accessory muscle use. Lungs: Clear to auscultation bilaterally anteriorly. Abdomen: Bowel sounds present. Abdomen is soft, nontender, nondistended. Extremities: No lower extremity edema. Musculoskeletal: No clubbing or cyanosis noted. Psychological: The patient is calm and cooperative. Skin: No rashes seen. There is approximately an 8-mm opening in her left hip incision with a small amount of purulent drainage noted on the dressing. No surrounding erythema or tenderness. Passive range of motion to the hip without difficulty. DIAGNOSTIC STUDIES/LAB DATA: Sodium 131, potassium 3.7, chloride 96, CO2 of 25 , BUN 35, creatinine 1.56, glucose 100. White blood cell count 10.5, hemoglobin 8.2, hematocrit 25, platelet count 264. ESR on admission was 70, trended down to 39 today. CRP was 96.42 on admission, trended down to 20 today. Blood cultures with no growth on day 2. Urinalysis on admission positive for specific gravity 1.008, urine protein 1+, blood 3+, leukocyte esterase 3+, wbc's 3+, rbc's 3+, bacteria 1+, hyaline casts present. Influenza A and B negative. Left hip wound culture with Corynebacterium striatum. Urine culture from 07/03/18 with klebsiella. Sputum culture with normal matthew. Please see impression and recommendations outlined above. Thank you for asking us to see Ms. Sherwood in consultation. TIME SPENT: Time spent for this consultation was approximately 45 minutes, greater than half of that was spent with the patient discussing medications, past medical history, the events leading to her arrival at the hospital, and performing a physical examination. The case has been reviewed with the attending Dr. Nichols, who agrees with the plan of care. Reviewed by GRIS BISHOP, CHANEL 07/11/18 1804 [id number]/[facility] #: [id number] [facility]OSPITALCarline
[2018-07-08] MEDS ORDERED: oxyCODONE TAB* 5 MG TAB PO PRN (21:36)
--- NOTE | 2018-07-09 00:31 | OP ---
DATE OF OPERATION: 07/08/18 - ROOM #ICU-08 DATE OF : 30 SURGEON: Aaron Johnson MD SPEECH LANGUAGE PATHOLOGIST PRN: KIRSTEN Morel ANESTHESIOLOGIST: Dr. Mark Dawson. ANESTHESIA: Spinal anesthesia. PRE-OP DIAGNOSES: 1. Left hip incisional wound, less than 1cm in length 2. Left hip area possible infection, superficial and/or deep. 3. Status post left bipolar hip hemiarthroplasty for displaced femoral neck fracture, April 2018. POST-OP DIAGNOSES: 1. Left hip incisional wound, less than 1cm in length 2. Left hip possible superficial subcutaneous infection limited to the wound versus colonization of wound 3. No left hip deep infection. 4. Status post left bipolar hip hemiarthroplasty for displaced femoral neck fracture, April 2018. OPERATIVE PROCEDURE: Incision, irrigation, debridement and drainage open wound left hip, subcutaneous. INDICATIONS FOR PROCEDURE: The patient is an 87-year-old woman with multiple medical problems, status post 05/06/18, the left hip bipolar hemiarthroplasty for treatment of a femoral neck fracture. Uncomplicated postoperative course. I saw the patient in clinic on 07/03/18. A tiny area of wound dehiscence less than a centimeter that had a bottom to it in a very superficial subcutaneous area. I placed the patient on 7 days of oral antibiotics and was going to follow up with her in 2 weeks. The patient had no hip pain. Initially, I was told that the senior care never appreciated the wound, although the family told me recently that the senior care had noted this wound and told the family about it. The patient had no dressing or anything like that on when I saw her in clinic. The patient presented on 07/04/18 to the emergency room with weakness for 5 days. She was diagnosed with hyponatremia. There was much concern by ED staff and then by hospitalist about an infection about the left hip. This was based on an ultrasound that was read as showing a fluid collection, although very small, 7.5 x 1.5 cm, along with an elevated CRP in the 140s along with the small wound in the skin. Orthopedic Surgery was consulted and I appreciate early involvement of Orthopedics when any wound issue presents. Looking at the wound on the floor on Saturday, her date of admission, there did not appear to be a clear bottom to that wound and so given the presence nearby of a hip hemiarthroplasty implant, I favored aggressive treatment and made the patient n.p.o. after midnight. The patient's surgery the next day was delayed because her anticoagulation had not been held. He was scheduled for the following day, 07/06/18. However, some ventricular tachycardia immediately preoperatively caused us to again cancel the procedure. The patient was admitted to the ICU on an amiodarone drip. Besides her hyponatremia which was severe and required correcting, the patient had multiple other medical complaints being addressed preoperatively. These included a urinary tract infection with Klebsiella and an indwelling Jerez catheter as well as a consistently productive cough that led to multiple chest x -rays and was thought to be due at a minimum to a CHF exacerbation. Cultures from the ER of the wound grew Corynebacterium striatum. I view this as either normal skin matthew, contaminant, or infecting organism. The ID service interpreted it similarly. The patient was started on broad-spectrum antibiotics, vancomycin and cefepime. ESR decreased and normalized pre-operatively. CRP decreased to just above the normal range preoperatively. The patient never at any time had a complaint of left hip pain, so the suspicion for a deep infection was close to zero, but I wanted to be ready certainly to irrigate and debride deep and exchange components, as needed to certainly treat aggressively any possible infection. The patient was eventually cleared for surgery and we took her to the operating room this evening. Just prior to the procedure this evening, I had a second radiologist interpret the patient's ultrasound from her date of admission. Dr. Sheffield felt that there was actually no fluid collection, but rather just some tissue edema located superficial to the fascia layer. He was not sure how the determination had been made by prior radiologist regarding a fluid collection. I discussed with the patient's daughter and the patient, the risks and potential complications of procedure. I consented the patient for incision, irrigation, debridement and drainage, superficial and possibly deep, possible exchange of the metal and plastic bipolar head components of the hip hemiarthroplasty. IV FLUIDS: See Anesthesia note. ANTIBIOTICS: The patient had received a dose of cefepime, scheduled, within 1 hour of the surgical incision. [id number] TIME: Approximately 33 minutes. IRRIGANT USED: 7000 mL for open irrigation. SPECIMEN: Aerobic and anaerobic culture swab taken x3. The first I denoted as superficial, which was directly in the location of the draining wound. The second set was from more distal, also subcutaneous. The third set was from an area more anterior, that I got to with finger dissection, also subcutaneous. IMPLANTS: None. COMPLICATIONS: None. ESTIMATED BLOOD LOSS: Minimal. DESCRIPTION OF PROCEDURE: In the ICU, I obtained a written consent from the patient. Operative extremity was marked in the ICU. The patient was taken from the ICU to the operating room. The patient was moved on to the operating room table. Anesthesia produced a spinal anesthetic block. The patient was moved into a lateral decubitus position with the left hip up on a peg board, prepped and draped. Surgical time-out performed. I noted the wound. It was perhaps 7 to 8 mm long, clearly less than 1 cm. The skin edges were gapped as was the case preoperatively, I would describe the tissue quality deep to it as slightly junky, it is yellow. No pus present, but difficult to know what the tissue was, nonhealing tissue versus necrotic fat versus some infected material. I extended the incision both proximally and distally for a distance of perhaps 10 cm total, or roughly 8 to 10 cm. I dissected down with scissors and with my fingers. There was almost no depth to the wound whatsoever, approximately 1-2 cm. There was a firm subcutaneous layer of tissue deep to that fistula essentially. I took superficial wound cultures aerobic and anaerobic. I probed with my fingers and I was able to dissect with my fingers distally into a small pocket where the deep subcutaneous tissue and fascia were not adherent to the more superficial subcutaneous tissue. I next took cultures from this area both anaerobic and aerobic. I probed in all directions with finger, curette, Q-tip. I was in no place able to go in any other direction, including deep. I next started irrigating. I irrigated with about 6 L of normal saline using pulse lavage. Also debrided with a curette the subcutaneous tissue about the wound site. I also used sharp dissection and a knife to dissect the skin and subcutaneous tissue directly about the wound site. I probed once more and was able to push through some tissue anteriorly. This was not clearly part of the wound, but I wanted to be especially careful. I obtained cultures of this area more anterior and then irrigated out with an additional liter. There was no clear pus or murky looking fluid ever encountered during the procedure. There was good hemostasis. No cautery was ever required. I next closed the wound with several deep and then a number of more superficial buried simple stitches with PDS 2.0 suture. I next tightly closed the skin with sae. As I was more concerned with wound healing difficulties than I was with infection, I obtained a nice tight closure with sae and did not place any drain. 4x4s, ABD, foam tape. The patient was converted to a supine position and brought to the PACU. DISPOSITION: The patient was to be readmitted to the medicine service postoperatively. I will transmit my operative findings to the hospitalist team. Again, there was no sign whatsoever of a deep infection involving the joint. I cannot even be sure that there was a superficial infection. All that I am sure of is there was a wound. There was no fluid collection on ultrasound preoperatively. That first read was incorrect. I did not encounter any fluid collection intraoperatively. The patient's ESR had normalized preoperatively and the CRP was only slightly elevated. I again would urge the hospitalist team to consider urine or respiratory sources of infection as the patient's possible cause of initial elevated CRP and borderline white blood cell count. With regards to antibiotic coverage, I think that 7 days of antibiotics that would cover Staph, Strep, and Corynebacterium striatum, just to be on the safe side, would seem appropriate, but I defer to the Infectious Disease service. I would like to see the patient for a wound check in 1 week and I plan on keeping those sae in for 3 weeks. I defer to hospitalist service for a medical management of the litany of hyponatremia, productive cough, urinary tract infection, and recent ventricular tachycardia. [id number]/[facility] #: [id number] DONNA
[2018-07-09 05:24] LABS: Hematocrit 26 % (33-41); Hemoglobin 8.7 g/dL (12.0-16.0); Mean Corpuscular HGB Conc 34 g/dL (31-36); Mean Corpuscular Hemoglobin 31 pg (27-31); Mean Corpuscular Volume 91 fL (80-97); Mean Platelet Volume 5.8 fL (7.4-10.4); Platelet Count 286 10^3/uL (150-450); Red Blood Count 2.82 10^6 /uL (3.70-4.87); Red Cell Distribution Width 16 % (10.5-15); White Blood Count 15.7 10^3/uL (3.5-10.8)
[2018-07-09] MEDS: Levothyroxine TAB* 25 MCG TAB PO SCH (05:32)
[2018-07-09 05:38] LABS: Vancomycin Random 25.3 mcg/mL
[2018-07-09 05:39] LABS: BUN/Creatinine Ratio 20.8 (8-20); Calcium 8.8 mg/dL (8.6-10.3); EGFR African American 32.6 (>60); Potassium 4.3 mmol/L (3.5-5.0)
[2018-07-09 05:54] LABS: ABS Basophils 0 10^3/ul (0-0.2); ABS Eosinophils 0 10^3/ul (0-0.6); ABS Lymphocytes 1.1 10^3/ul (1.0-4.8); ABS Monocytes 1.5 10^3/ul (0-0.8); ABS Nucleated RBC 0 10^3/ul; Eosinophil % 0.1 %; Lymphocyte % 7.2 %; Nucleated Red Blood Cells % 0
[2018-07-09] MEDS ORDERED: Vancomycin Random Level* NOTE FOLLOW UP ONE (06:00)
[2018-07-09] MEDS: Vancomycin(*) 750 MG in NS 0.9% 250 ML* 250 ML IVPB SCH (07:45)
[2018-07-09] MEDS: Amiodarone TAB* 200 MG PO SCH (09:11)
[2018-07-09] MEDS: Folic Acid TAB* 1 MG PO SCH (09:12)
[2018-07-09] MEDS: Docusate CAP* 100 MG PO SCH ×2 (09:12→22:15)
[2018-07-09] MEDS: predniSONE TAB* 20 MG PO SCH (09:12)
[2018-07-09] MEDS: Aspirin 81 mg CHEW TAB* 81 MG TAB.CHEW PO SCH (09:12)
[2018-07-09] MEDS: Ferrous Sulfate TAB* 325 MG PO SCH (09:12)
[2018-07-09] MEDS: Senna TAB PO SCH ×2 (09:12→22:16)
[2018-07-09] MEDS: Furosemide TAB* 40 MG PO SCH (09:12)
[2018-07-09] MEDS: Spironolactone TAB* 25 MG PO SCH (09:12)
[2018-07-09] MEDS: Metoprolol Tartrate TAB* 25 MG PO SCH ×2 (09:12→22:17)
[2018-07-09] MEDS: Nystatin TOP POWDER* 15 GM BTL TOPICAL SCH ×2 (09:13→22:23)
--- NOTE | 2018-07-09 10:39 | PN ---
Progress Note - Progress Note Date of Service: 07/09/18 SOAP: Subjective: CC: Left hip infection HPI: Ms. Sherwood is an 87 yo female with PMH significant for CKD stage 3-4, P A fib, morbid obesity, HTN, HLD, CAD, chronic benign uterine mass, constipation, RACHANA, s/p bioprosthetic AVR, and recent left hip fracture s/P left hip hemiarthroplasty; who presented to the hospital for weakness and cough. Denies fever, chills, shortness of breath, chest discomfort, N/V/D. She reports an occasional intermittent cough that is improving and constipation. Objective: Vital Signs 07/09/18 07/09/18 07/09/18 08:02 08:04 08:47 Temperature 97.1 F Pulse Rate 61 Respiratory 19 18 Rate Blood Pressure 160/57 (mmHg) O2 Sat by Pulse 100 Oximetry 07/09/18 07/09/18 07/09/18 09:00 09:01 09:30 Temperature Pulse Rate 63 70 Respiratory 23 31 20 Rate Blood Pressure 158/61 (mmHg) O2 Sat by Pulse 100 Oximetry 07/09/18 07/09/18 10:00 10:01 Temperature Pulse Rate 57 59 Respiratory 19 22 Rate Blood Pressure 124/51 (mmHg) O2 Sat by Pulse 100 Oximetry Physical Exam: General: NAD, sitting up in bed Neurological: Alert and Oriented x 3 HEENT: No thrush, moist MM Cardiovascular: Heart rate regular, no murmur Respiratory: Lung sounds bilateral, anteriorly Abdominal: Bowel sounds present; ABD soft, non tender and non distended Skin: Dressing to left hip clean and intact, no surrounding erythema. No rash Laboratory Results - last 24 hr 07/08/18 07/08/18 07/08/18 05:02 05:02 07:05 WBC 10.5 RBC 2.68 L Hgb 8.2 L Hct 25 L MCV 92 MCH 31 MCHC 34 RDW 16 H Plt Count 264 MPV 6.1 L Neut % (Auto) 74.7 Lymph % (Auto) 13.7 [place] % (Auto) 11.4 Eos % (Auto) 0.1 Baso % (Auto) 0.1 Absolute Neuts (auto) 7.8 H Absolute Lymphs (auto) 1.4 Absolute Monos (auto) 1.2 H Absolute Eos (auto) 0 Absolute Basos (auto) 0 Absolute Nucleated RBC 0 Nucleated RBC % 0 ESR 18 Sodium 131 L Potassium 3.7 Chloride 96 L Carbon Dioxide 25 Anion Gap 10 BUN 35 H Creatinine 1.56 H Est GFR ( Amer) 38.0 Est GFR (Non-Af Amer) 31.4 BUN/Creatinine Ratio 22.4 H Glucose 108 H POC Glucose (mg/dL) Calcium 8.6 C-Reactive Protein 20.08 H Vancomycin Trough Cancelled Random Vancomycin 33.6 07/08/18 07/08/18 07/09/18 12:20 21:35 05:11 Sodium 133 L Potassium 4.3 Chloride 96 L Carbon Dioxide 29 Anion Gap 8 BUN 37 H Creatinine 1.78 H Est GFR ( Amer) 32.6 Est GFR (Non-Af Amer) 27.0 BUN/Creatinine Ratio 20.8 H Glucose 113 H POC Glucose (mg/dL) 158 H Calcium 8.8 Vancomycin Trough 32.1 H* Random Vancomycin 25.3 07/09/18 05:11 WBC 15.7 H RBC 2.82 L Hgb 8.7 L Hct 26 L MCV 91 MCH 31 MCHC 34 RDW 16 H Plt Count 286 MPV 5.8 L Neut % (Auto) 83.2 Lymph % (Auto) 7.2 [place] % (Auto) 9.3 Eos % (Auto) 0.1 Baso % (Auto) 0.2 Absolute Neuts (auto) 13.0 H Absolute Lymphs (auto) 1.1 Absolute Monos (auto) 1.5 H Absolute Eos (auto) 0 Absolute Basos (auto) 0 Absolute Nucleated RBC 0 Nucleated RBC % 0 Microbiology 07/08/18 19:13 Acid Fast Bacilli Smear - Final Wound 07/08/18 19:13 Gram Stain - Final Hip Left 07/08/18 19:13 Acid Fast Bacilli Smear - Final Wound 07/08/18 19:13 Gram Stain - Final Hip Left 07/08/18 19:13 Acid Fast Bacilli Smear - Final Wound 07/08/18 19:13 Gram Stain - Final Hip Left 07/03/18 22:22 Aerobic Blood Culture - Final Blood Venous No Growth Day 5 Anaerobic Blood Culture - Final No Growth Day 5 07/03/18 22:54 Aerobic Blood Culture - Final Blood Venous No Growth Day 5 Anaerobic Blood Culture - Final No Growth Day 5 07/04/18 00:00 Gram Stain - Final Hip Left Wound Culture - Final Corynebacterium Striatum 07/03/18 22:35 Urine Culture - Final Urine Klebsiella Pneumoniae 07/03/18 23:11 Gram Stain - Final Sputum Sputum Culture - Final Normal Brooke Assessment: 1. Left hip infection. Initial culture with Corynebacterium Striatum. Went to the OR yesterday for an irrigation, debridement and irrigation of the subcutaneous tissue with Dr. Johnson, OR cultures pending. Afebrile. WBC is elevated this AM. 2. Leukocytosis. WBC is elevated this AM, afebrile. CRP and ESR trending down. No change in cough. Suspect this may be a leukomoid reaction after surgery yesterday. 3. Klebsiella Pneumoniae UTI, in the setting of a chronic indwelling urinary catheter. Received 5 days of Cefepime. 4. CKD, stage 3-4. At baseline. 5. Morbid obesity. BMI 35.8. Plan: Continue Vancomycin. Will require 7 days of IV ABX, day 2/7.
[2018-07-09] MEDS: Enoxaparin(*) 30 MG/0.3 ML SYR SUBCUT SCH (12:21)
--- NOTE | 2018-07-09 13:02 | PN ---
Progress Note - Progress Note Date of Service: 07/09/18 SOAP: Subjective: []Pt seen at bedside. She feels well without complaint of left hip pain. Denies CP, SOB, dizziness or nausea. Objective: []General: Appears well, NAD LLE: Left hip dressing CDI, thigh is soft, active flexion/extension 0-80 nonpainful in hip. NVID Calves supple, nontender no erythema, edema or palpable cords Assessment: [] OPERATIVE PROCEDURE: Incision, irrigation, debridement and drainage open wound left hip, subcutaneous. Plan: []WBAT PT/OT Per Dr Johnson 7 days of antibiotics that would cover Staph, Strep, and Corynebacterium striatum would seem appropriate, but ultimately defer to Infectious Disease service. FU Dr Johnson 1 week for wound check, sae will remain x 3 weeks Vital Signs Temp 97.1 F 07/09/18 08:04 Pulse 59 07/09/18 10:01 Resp 16 07/09/18 11:00 BP 124/51 07/09/18 10:01 Pulse Ox 100 07/09/18 10:00 Intake & Output 07/08/18 07/09/18 07/09/18 18:59 06:59 18:59 Intake Total 128 860 450 Output Total 625 1950 Balance -497 -1090 450 Weight 208 lb 9.6 oz Intake: IV Fluids 128 500 LR 500 NS (0.9%) 128 Oral 360 450 Output: Jerez 625 1950 Laboratory Last Values WBC 15.7 10^3/uL (3.5-10.8) H 07/09/18 05:11 RBC 2.82 10^6 /uL (3.70-4.87) L 07/09/18 05:11 Hgb 8.7 g/dL (12.0-16.0) L 07/09/18 05:11 Hct 26 % (33-41) L 07/09/18 05:11 MCV 91 fL (80-97) 07/09/18 05:11 MCH 31 pg (27-31) 07/09/18 05:11 MCHC 34 g/dL (31-36) 07/09/18 05:11 RDW 16 % (10.5-15) H 07/09/18 05:11 Plt Count 286 10^3/uL (150-450) 07/09/18 05:11 MPV 5.8 fL (7.4-10.4) L 07/09/18 05:11 Neut % (Auto) 83.2 % 07/09/18 05:11 Lymph % (Auto) 7.2 % 07/09/18 05:11 [place] % (Auto) 9.3 % 07/09/18 05:11 Eos % (Auto) 0.1 % 07/09/18 05:11 Baso % (Auto) 0.2 % 07/09/18 05:11 Absolute Neuts (auto) 13.0 10^3/ul (1.5-7.7) H 07/09/18 05:11 Absolute Lymphs (auto) 1.1 10^3/ul (1.0-4.8) 07/09/18 05:11 Absolute Monos (auto) 1.5 10^3/ul (0-0.8) H 07/09/18 05:11 Absolute Eos (auto) 0 10^3/ul (0-0.6) 07/09/18 05:11 Absolute Basos (auto) 0 10^3/ul (0-0.2) 07/09/18 05:11 Absolute Nucleated RBC 0 10^3/ul 07/09/18 05:11 Nucleated RBC % 0 07/09/18 05:11 ESR 18 mm/Hr (0-29) 07/08/18 05:02 Sodium 133 mmol/L (135-145) L 07/09/18 05:11 Potassium 4.3 mmol/L (3.5-5.0) 07/09/18 05:11 Chloride 96 mmol/L (101-111) L 07/09/18 05:11 Carbon Dioxide 29 mmol/L (22-32) 07/09/18 05:11 Anion Gap 8 mmol/L (2-11) 07/09/18 05:11 BUN 37 mg/dL (6-24) H 07/09/18 05:11 Creatinine 1.78 mg/dL (0.51-0.95) H 07/09/18 05:11 Est GFR ( Amer) 32.6 (>60) 07/09/18 05:11 Est GFR (Non-Af Amer) 27.0 (>60) 07/09/18 05:11 BUN/Creatinine Ratio 20.8 (8-20) H 07/09/18 05:11 Glucose 113 mg/dL (70-100) H 07/09/18 05:11 POC Glucose (mg/dL) 158 mg/dL (70-100) H 07/08/18 21:35 Serum Osmolality 256 mOsm/kg (275-295) L 07/03/18 20:27 Lactic Acid 1.2 mmol/L (0.5-2.0) 07/03/18 20:27 Calcium 8.8 mg/dL (8.6-10.3) 07/09/18 05:11 Magnesium 1.9 mg/dL (1.9-2.7) 07/06/18 07:26 Total Bilirubin 0.80 mg/dL (0.2-1.0) 07/03/18 20:27 AST 18 U/L (13-39) 07/03/18 20:27 ALT 19 U/L (7-52) 07/03/18 20:27 Alkaline Phosphatase 73 U/L (34-104) 07/03/18 20:27 C-Reactive Protein 20.08 mg/L (<8.01) H 07/08/18 05:02 B-Natriuretic Peptide 191 pg/mL (<=100) H 07/03/18 20:27 Total Protein 6.9 g/dL (6.4-8.9) 07/03/18 20:27 Albumin 3.4 g/dL (3.2-5.2) 07/03/18 20:27 Globulin 3.5 g/dL (2-4) 07/03/18 20:27 Albumin/Globulin Ratio 1.0 (1-3) 07/03/18 20:27 TSH 2.89 mcIU/mL (0.34-5.60) 07/03/18 20:27 Urine Color Yellow 07/03/18 22:35 Urine Appearance Turbid 07/03/18 22:35 Urine pH 5.0 (5-9) 07/03/18 22:35 Ur Specific [place] 1.008 (1.010-1.030) L 07/03/18 22:35 Urine Protein 1+(30 mg/dl) (Negative) A 07/03/18 22:35 Urine Ketones Negative (Negative) 07/03/18 22:35 Urine Blood 3+ (Negative) A 07/03/18 22:35 Urine Nitrate Negative (Negative) 07/03/18 22:35 Urine Bilirubin Negative (Negative) 07/03/18 22:35 Urine Urobilinogen Negative (Negative) 07/03/18 22:35 Ur Leukocyte Esterase 3+ (Negative) A 07/03/18 22:35 Urine WBC (Auto) 3+(>20/hpf) (Absent) A 07/03/18 22:35 Urine RBC (Auto) 3+(>10/hpf) (Absent) A 07/03/18 22:35 Urine Bacteria 1+ (Absent) A 07/03/18 22:35 Hyaline Casts Present (Absent) A 07/03/18 22:35 Urine Osmolality 279 mOsm/kg (100-1150) 07/03/18 22:35 Ur Creatinine Concen 47.39 mg/dL 07/03/18 22:35 U Sodium Concentration 33 mmol/L 07/03/18 22:35 Urine Glucose Negative (Negative) 07/03/18 22:35 Vancomycin Trough 32.1 mcg/mL H* 07/08/18 12:20 Random Vancomycin 25.3 mcg/mL 07/09/18 05:11 Influenza A (Rapid) Negative (Negative) 07/03/18 20:45 Influenza B (Rapid) Negative (Negative) 07/03/18 20:45 Blood Type O Positive 07/08/18 07:05 Antibody Screen Negative 07/08/18 07:05
[2018-07-09] MEDS: Atorvastatin* 40 MG TAB PO SCH (16:50)
[2018-07-10] MEDS: Levothyroxine TAB* 25 MCG TAB PO SCH (06:07)
[2018-07-10 07:33] LABS: EGFR African American 35.4 (>60); EGFR Non-African American 29.2 (>60)
[2018-07-10] MEDS: hydrALAZINE IV* 20 MG/ML VIAL IV SLOW PU PRN (08:20)
[2018-07-10] MEDS: Docusate CAP* 100 MG PO SCH ×2 (08:20→22:11)
[2018-07-10] MEDS: predniSONE TAB* 20 MG PO SCH (08:20)
[2018-07-10] MEDS: Spironolactone TAB* 25 MG PO SCH (08:20)
[2018-07-10] MEDS: Amiodarone TAB* 200 MG PO SCH (08:20)
[2018-07-10] MEDS: Ferrous Sulfate TAB* 325 MG PO SCH (08:20)
[2018-07-10] MEDS: Aspirin 81 mg CHEW TAB* 81 MG TAB.CHEW PO SCH (08:20)
[2018-07-10] MEDS: Metoprolol Tartrate TAB* 25 MG PO SCH ×2 (08:21→22:12)
[2018-07-10] MEDS: Furosemide TAB* 40 MG PO SCH (08:21)
[2018-07-10] MEDS: Folic Acid TAB* 1 MG PO SCH (08:21)
[2018-07-10] MEDS: Senna TAB PO SCH ×2 (08:21→22:11)
[2018-07-10] MEDS: Nystatin TOP POWDER* 15 GM BTL TOPICAL SCH ×2 (08:48→22:15)
[2018-07-10] MEDS ORDERED: Vancomycin(*) 750 MG in NS 0.9% 250 ML* 250 ML IVPB ONE (10:00)
[2018-07-10] MEDS: Enoxaparin(*) 30 MG/0.3 ML SYR SUBCUT SCH (12:13)
[2018-07-10] MEDS ORDERED: Magnesium Hydroxide LIQ* 30 ML UDC PO PRN (12:18)
--- NOTE | 2018-07-10 12:43 | PN ---
Progress Note - Progress Note Date of Service: 07/10/18 SOAP: Subjective: []Pt een at bedside. She has no complaints. Denies CP, SOB, dizziness, nausea. No LLE pain. Objective: [] General: Appears well, NAD LLE: Left hip dressing CDI, no surrounding erythema, thigh is soft, NVID Calves supple, nontender no erythema, edema or palpable cords Assessment: [] POD 2 sp Incision, irrigation, debridement and drainage open wound left hip , subcutaneous. Plan: []WBAT PT/OT Per Dr Johnson 7 days of antibiotics that would cover Staph, Strep, and Corynebacterium striatum would seem appropriate, but ultimately defer to Infectious Disease service. FU Dr Johnson 1 week for wound check, sae will remain x 3 weeks Change dressing 07/11 Vital Signs Temp 98.2 F 07/10/18 07:46 Pulse 64 07/10/18 07:46 Resp 16 07/10/18 08:00 BP 152/54 07/10/18 09:42 Pulse Ox 97 07/10/18 08:00 Intake & Output 07/09/18 07/10/18 07/10/18 18:59 06:59 18:59 Intake Total 570 700 300 Output Total 400 1675 Balance 170 -975 300 Weight 210 lb 6.4 oz Intake: Oral 570 700 300 Output: Jerez 400 1675 Other: # Bowel Movements 0 Laboratory Last Values WBC 15.7 10^3/uL (3.5-10.8) H 07/09/18 05:11 RBC 2.82 10^6 /uL (3.70-4.87) L 07/09/18 05:11 Hgb 8.7 g/dL (12.0-16.0) L 07/09/18 05:11 Hct 26 % (33-41) L 07/09/18 05:11 MCV 91 fL (80-97) 07/09/18 05:11 MCH 31 pg (27-31) 07/09/18 05:11 MCHC 34 g/dL (31-36) 07/09/18 05:11 RDW 16 % (10.5-15) H 07/09/18 05:11 Plt Count 286 10^3/uL (150-450) 07/09/18 05:11 MPV 5.8 fL (7.4-10.4) L 07/09/18 05:11 Neut % (Auto) 83.2 % 07/09/18 05:11 Lymph % (Auto) 7.2 % 07/09/18 05:11 [place] % (Auto) 9.3 % 07/09/18 05:11 Eos % (Auto) 0.1 % 07/09/18 05:11 Baso % (Auto) 0.2 % 07/09/18 05:11 Absolute Neuts (auto) 13.0 10^3/ul (1.5-7.7) H 07/09/18 05:11 Absolute Lymphs (auto) 1.1 10^3/ul (1.0-4.8) 07/09/18 05:11 Absolute Monos (auto) 1.5 10^3/ul (0-0.8) H 07/09/18 05:11 Absolute Eos (auto) 0 10^3/ul (0-0.6) 07/09/18 05:11 Absolute Basos (auto) 0 10^3/ul (0-0.2) 07/09/18 05:11 Absolute Nucleated RBC 0 10^3/ul 07/09/18 05:11 Nucleated RBC % 0 07/09/18 05:11 ESR 18 mm/Hr (0-29) 07/08/18 05:02 Sodium 133 mmol/L (135-145) L 07/09/18 05:11 Potassium 4.3 mmol/L (3.5-5.0) 07/09/18 05:11 Chloride 96 mmol/L (101-111) L 07/09/18 05:11 Carbon Dioxide 29 mmol/L (22-32) 07/09/18 05:11 Anion Gap 8 mmol/L (2-11) 07/09/18 05:11 BUN 41 mg/dL (6-24) H 07/10/18 06:52 Creatinine 1.66 mg/dL (0.51-0.95) H 07/10/18 06:52 Est GFR ( Amer) 35.4 (>60) 07/10/18 06:52 Est GFR (Non-Af Amer) 29.2 (>60) 07/10/18 06:52 BUN/Creatinine Ratio 20.8 (8-20) H 07/09/18 05:11 Glucose 113 mg/dL (70-100) H 07/09/18 05:11 POC Glucose (mg/dL) 158 mg/dL (70-100) H 07/08/18 21:35 Serum Osmolality 256 mOsm/kg (275-295) L 07/03/18 20:27 Lactic Acid 1.2 mmol/L (0.5-2.0) 07/03/18 20:27 Calcium 8.8 mg/dL (8.6-10.3) 07/09/18 05:11 Magnesium 1.9 mg/dL (1.9-2.7) 07/06/18 07:26 Total Bilirubin 0.80 mg/dL (0.2-1.0) 07/03/18 20:27 AST 18 U/L (13-39) 07/03/18 20:27 ALT 19 U/L (7-52) 07/03/18 20:27 Alkaline Phosphatase 73 U/L (34-104) 07/03/18 20:27 C-Reactive Protein 20.08 mg/L (<8.01) H 07/08/18 05:02 B-Natriuretic Peptide 191 pg/mL (<=100) H 07/03/18 20:27 Total Protein 6.9 g/dL (6.4-8.9) 07/03/18 20:27 Albumin 3.4 g/dL (3.2-5.2) 07/03/18 20:27 Globulin 3.5 g/dL (2-4) 07/03/18 20:27 Albumin/Globulin Ratio 1.0 (1-3) 07/03/18 20:27 TSH 2.89 mcIU/mL (0.34-5.60) 07/03/18 20:27 Urine Color Yellow 07/03/18 22:35 Urine Appearance Turbid 07/03/18 22:35 Urine pH 5.0 (5-9) 07/03/18 22:35 Ur Specific [place] 1.008 (1.010-1.030) L 07/03/18 22:35 Urine Protein 1+(30 mg/dl) (Negative) A 07/03/18 22:35 Urine Ketones Negative (Negative) 07/03/18 22: Urine Blood 3+ (Negative) A 07/03/18 22:35 Urine Nitrate Negative (Negative) 07/03/18 22:35 Urine Bilirubin Negative (Negative) 07/03/18 22:35 Urine Urobilinogen Negative (Negative) 07/03/18 22:35 Ur Leukocyte Esterase 3+ (Negative) A 07/03/18 22:35 Urine WBC (Auto) 3+(>20/hpf) (Absent) A 07/03/18 22:35 Urine RBC (Auto) 3+(>10/hpf) (Absent) A 07/03/18 22:35 Urine Bacteria 1+ (Absent) A 07/03/18 22:35 Hyaline Casts Present (Absent) A 07/03/18 22:35 Urine Osmolality 279 mOsm/kg (100-1150) 07/03/18 22:35 Ur Creatinine Concen 47.39 mg/dL 07/03/18 22:35 U Sodium Concentration 33 mmol/L 07/03/18 22:35 Urine Glucose Negative (Negative) 07/03/18 22:35 Vancomycin Trough 32.1 mcg/mL H* 07/08/18 12:20 Random Vancomycin 18.0 mcg/mL 07/10/18 06:52 Influenza A (Rapid) Negative (Negative) 07/03/18 20:45 Influenza B (Rapid) Negative (Negative) 07/03/18 20:45 Blood Type O Positive 07/08/18 07:05 Antibody Screen Negative 07/08/18 07:05
[2018-07-10] MEDS: Atorvastatin* 40 MG TAB PO SCH (17:19)
--- NOTE | 2018-07-10 17:49 | PN ---
Subjective Date of Service: 07/10/18 Interval History: Patient seen and examined OOB to chair and tolerating well. Did not ambulate yet. Denies fever or chills, no SOB, no chest pain. Still has cough but much improved, mildly productive. Objective Active Medications: Acetaminophen (Tylenol Tab*) 650 mg PO Q4H PRN PRN Reason: FEVER/PAIN Last Admin: 07/04/18 00:54 Dose: 650 mg Albuterol/Ipratropium (Duoneb (Albuterol 2.5 Mg/Ipratropium 0.5 Mg)) 1 neb INH Q4H PRN PRN Reason: SOB/WHEEZING Amiodarone HCl (Cordarone Tab*) 200 mg PO EVERY OTHER DAY [facility] Last Admin: 07/10/18 08:20 Dose: 200 mg Amiodarone HCl (Cordarone Tab*) 300 mg PO EVERY OTHER DAY [facility] Last Admin: 07/09/18 09:11 Dose: 300 mg Aspirin (Aspirin 81 Mg Chew Tab*) [address] [facility] Last Admin: 07/10/18 08:20 Dose: 81 mg Atorvastatin Calcium (Lipitor*) [address] [facility] Last Admin: 07/10/18 17:19 Dose: 40 mg Docusate Sodium (Colace Cap*) [address] [facility] Last Admin: 07/10/18 08:20 Dose: 100 mg Enoxaparin Sodium (Lovenox(*)) [address] [facility] Last Admin: 07/10/18 12:13 Dose: 30 mg Ferrous Sulfate (Ferrous Sulfate Tab*) [address] [facility] Last Admin: 07/10/18 08:20 Dose: 325 mg Folic Acid (Folvite Tab*) [address] [facility] Last Admin: 07/10/18 08:21 Dose: 1 mg Furosemide (Lasix Tab*) [address] [facility] Last Admin: 07/10/18 08:21 Dose: 40 mg Hydralazine HCl (Apresoline Iv*) 10 mg IV SLOW PU Q4H PRN PRN Reason: SYSTOLIC BP GREATER THAN: Last Admin: 07/10/18 08:20 Dose: 10 mg Levothyroxine Sodium (Synthroid Tab*) 12.5 mcg PO DAILY@0600 [facility] Last Admin: 07/10/18 06:07 Dose: 12.5 mcg Magnesium Hydroxide (Milk Of Magnesia Liq*) 30 ml PO Q6H PRN PRN Reason: CONSTIPATION Metoprolol Tartrate (Lopressor Tab*) [address] [facility] Last Admin: 07/10/18 08:21 Dose: 25 mg Nystatin (Nystatin Top Powder*) [address] [facility] Last Admin: 07/10/18 08:48 Dose: 1 applic Ondansetron HCl (Zofran Inj*) 4 mg IV Q4H PRN PRN Reason: NAUSEA/VOMITING Oxycodone HCl (Roxycodone Tab*) 5 mg PO Q6H PRN PRN Reason: PAIN - MILD TO MODERATE Pharmacy Consult (Vancomycin Per Pharmacy*) 1 note FOLLOW UP . PRN PRN Reason: PER PROTOCOL Pharmacy Consult (Vancomycin Random Level*) 1 note FOLLOW UP ONCE ONE Stop: 07/11/18 06:01 Prednisone (Deltasone Tab*) [address] [facility] Last Admin: 07/10/18 08:20 Dose: 20 mg Senna (Senokot Tab*) [address] [facility] Last Admin: 07/10/18 08:21 Dose: 1 tab Spironolactone (Aldactone Tab*) [address] [facility] Last Admin: 07/10/18 08:20 Dose: 25 mg Vital Signs - 8 hr 07/10/18 07/10/18 15:30 16:00 Temperature 98.0 F Pulse Rate 60 Respiratory 16 Rate Blood Pressure 105/43 (mmHg) O2 Sat by Pulse 95 95 Oximetry Oxygen Devices in Use Now: None Appearance: alert, NAD Eyes: No Scleral Icterus, PERRLA Ears/Nose/Mouth/Throat: NL Teeth, Lips, Gums, Mucous Membranes Moist Neck: NL Appearance and Movements; NL JVP, Trachea Midline Respiratory: Symmetrical Chest Expansion and Respiratory Effort, Clear to Auscultation Cardiovascular: NL Sounds; No Murmurs; No JVD, RRR, No Edema Abdominal: NL Sounds; No Tenderness; No Distention Extremities: No Edema, No Clubbing, Cyanosis Skin: No Rash or Ulcers Neurological: Alert and Oriented x 3, NL Sensation, - - general weakness Lines/Tubes/Other Access: Clean, Dry and Intact Musa Nutrition: Taking PO's Result Diagrams: 07/09/18 05:11 07/10/18 06:52 Microbiology and Other Data: Microbiology 07/04/18 00:00 Gram Stain - Final Hip Left 07/03/18 23:11 Gram Stain - Final Sputum Assess/Plan/Problems-Billing Assessment: 87 yo F h/o hemiarthroplasty in 04/2018, afib, cad, ckd pw LH found with hyponatremia, SIM and concern for underlying thigh abscess with stay cb wide complex tachycardia concerning for VT. Now s/p wound washout. - Patient Problems (1) Surgical wound infection Code(s): T81.49XA - INFECTION FOLLOWING A PROCEDURE, OTHER SURGICAL SITE, INIT SNOMED Code(s): 69316161 Comment: - POD2 washout - Not deep to the joint, harware intact - Continue day 2/7 coverage with IV vancomycin for corynebacterium, staph and strep as per orthopedics - PT/OT (2) VT (ventricular tachycardia) Code(s): I47.2 - VENTRICULAR TACHYCARDIA SNOMED Code(s): 82010907 Comment: - Continue home amiodarone dosing (3) Anemia Code(s): D64.9 - ANEMIA, UNSPECIFIED SNOMED Code(s): 470667893 Comment: - Chronic/stable - Continue FeSO4 (4) CKD (chronic kidney disease) stage 3, GFR 30-59 ml/min Code(s): N18.3 - CHRONIC KIDNEY DISEASE, STAGE 3 (MODERATE) SNOMED Code(s): 962691278 Comment: - Creat around baseline, follow labs (5) HTN (hypertension) Code(s): I10 - ESSENTIAL (PRIMARY) HYPERTENSION SNOMED Code(s): 39695915 Comment: - Stable of furosemide, metoprolol, hydralazine PRN (6) Hyponatremia Code(s): E87.1 - HYPO-OSMOLALITY AND HYPONATREMIA SNOMED Code(s): 69938661 Comment: - Acute on chronic with significant improvement - Hypervolemic from fluid overload - Follow lytes in AM (7) SIRS (systemic inflammatory response syndrome) Code(s): R65.10 - SIRS OF NON-INFECTIOUS ORIGIN W/O ACUTE ORGAN DYSFUNCTION SNOMED Code(s): 274086911 Comment: - Resolved - Leukocytosis likely reactive from surgical procedure yesterday and steroids - Afebrile - Blood cultures negative (8) Urinary retention Code(s): R33.9 - RETENTION OF URINE, UNSPECIFIED SNOMED Code(s): 062487653 Comment: - Has musa from previous admission (retention) with klebsiella UTI this admission and was effectively treated with cefepime - Start clamping musa today for bladder training - Goal to remove musa before discharge to home (9) Paroxysmal atrial fibrillation Code(s): I48.0 - PAROXYSMAL ATRIAL FIBRILLATION SNOMED Code(s): 165025291 Comment: - Stable, restart AC with renally dosed apixiban, rate control with metoprolol and amiodarone (10) Heart failure with preserved ejection fraction Code(s): I50.30 - UNSPECIFIED DIASTOLIC (CONGESTIVE) HEART FAILURE SNOMED Code (s): 293120592 Comment: - Was acutely decompensated when in ICU, now diuresed and resolved - Continue home dose spironolactone and lasix - On room air (11) Acute respiratory failure with hypoxia Code(s): J96.01 - ACUTE RESPIRATORY FAILURE WITH HYPOXIA SNOMED Code(s): 32309225 Comment: - 2/2 acutely decompensately HF now resolved - Continue IS and flutter valve - Appropriatley diuresed - Taper prednisone - Stable (12) DVT prophylaxis Code(s): TFH8356 - SNOMED Code(s): 177943153 Comment: - On lovenox, will DC and restart apixiban Status and Disposition: Inpatient, requires completion of 7 days vancomycin. Plan for DC home in care of daughter with VNS when medically stable.
[2018-07-10] MEDS: Apixaban* 2.5 MG TAB PO SCH (22:12)
[2018-07-11] MEDS: Levothyroxine TAB* 25 MCG TAB PO SCH (05:28)
[2018-07-11] MEDS ORDERED: Vancomycin Random Level* NOTE FOLLOW UP ONE (06:00)
[2018-07-11 06:26] LABS: Hematocrit 29 % (35-47); Hemoglobin 9.6 g/dL (12.0-16.0); Mean Corpuscular HGB Conc 33 g/dL (31-36); Mean Corpuscular Hemoglobin 30 pg (27-31); Mean Corpuscular Volume 91 fL (80-97); Mean Platelet Volume 6.1 fL (7.4-10.4); Platelet Count 284 10^3/uL (150-450); Red Blood Count 3.19 10^6 /uL (3.70-4.87); Red Cell Distribution Width 16 % (10.5-15); White Blood Count 11.2 10^3/uL (3.5-10.8)
[2018-07-11 06:54] LABS: BUN/Creatinine Ratio 27.4 (8-20); Calcium 8.8 mg/dL (8.6-10.3); EGFR African American 34.9 (>60); EGFR Non-African American 28.8 (>60); Potassium 3.9 mmol/L (3.5-5.0)
[2018-07-11 07:17] LABS: ABS Lymphocytes 1.6 10^3/ul (1.0-4.8); ABS Monocytes 1.2 10^3/ul (0-0.8); ABS Neutrophils 8.3 10^3/ul (1.5-7.7); Eosinophil % 0.4 %; Lymphocyte % 14.5 %
[2018-07-11] MEDS: Aspirin 81 mg CHEW TAB* 81 MG TAB.CHEW PO SCH (08:19)
[2018-07-11] MEDS: Furosemide TAB* 40 MG PO SCH (08:19)
[2018-07-11] MEDS: Amiodarone TAB* 200 MG PO SCH (08:19)
[2018-07-11] MEDS: Docusate CAP* 100 MG PO SCH ×2 (08:19→20:14)
[2018-07-11] MEDS: Folic Acid TAB* 1 MG PO SCH (08:19)
[2018-07-11] MEDS: Spironolactone TAB* 25 MG PO SCH (08:19)
[2018-07-11] MEDS: Ferrous Sulfate TAB* 325 MG PO SCH (08:19)
[2018-07-11] MEDS: Apixaban* 2.5 MG TAB PO SCH ×2 (08:20→20:15)
[2018-07-11] MEDS: predniSONE TAB* 20 MG PO SCH (08:20)
[2018-07-11] MEDS: Metoprolol Tartrate TAB* 25 MG PO SCH ×2 (08:20→20:15)
[2018-07-11] MEDS: Nystatin TOP POWDER* 15 GM BTL TOPICAL SCH ×2 (08:20→20:16)
[2018-07-11] MEDS: Senna TAB PO SCH ×2 (08:20→20:14)
--- NOTE | 2018-07-11 08:31 | PN ---
Progress Note - Progress Note Date of Service: 07/11/18 SOAP: Subjective: CC: Left hip infection HPI: Ms. Sherwood is an 87 yo female with PMH significant for CKD stage 3-4, P A fib, morbid obesity, HTN, HLD, CAD, chronic benign uterine mass, constipation, RACHANA, s/p bioprosthetic AVR, and recent left hip fracture S/P left hip hemiarthroplasty; who presented to the hospital for weakness, cough, and was noted to have drainage from her left hip incision. Denies fever, chills, shortness of breath, chest discomfort, N/V/D or constipation. Objective: Vital Signs - 8 hr 07/11/18 07/11/18 02:34 03:34 Temperature 98.2 F Pulse Rate 56 Respiratory 16 Rate Blood Pressure 148/60 (mmHg) O2 Sat by Pulse 97 95 Oximetry Physical Exam: General: NAD, laying in bed Neurological: Alert and Oriented x3 HEENT: No thrush, MM moist Cardiovascular: Heart rate irregular Respiratory: Lung sounds clear Abdominal: Bowel sounds present; ABD soft, non tender and non distended Skin: No rash, dressing to left hip clean, dry and intact. No surrounding erythema. Laboratory Results - last 24 hr 07/11/18 07/11/18 05:59 05:59 WBC 11.2 H RBC 3.19 L Hgb 9.6 L Hct 29 L MCV 91 MCH 30 MCHC 33 RDW 16 H Plt Count 284 MPV 6.1 L Neut % (Auto) 73.8 Lymph % (Auto) 14.5 [place] % (Auto) 11.0 Eos % (Auto) 0.4 Baso % (Auto) 0.3 Absolute Neuts (auto) 8.3 H Absolute Lymphs (auto) 1.6 Absolute Monos (auto) 1.2 H Absolute Eos (auto) 0.0 Absolute Basos (auto) 0.0 Absolute Nucleated RBC 0.0 Nucleated RBC % 0.0 Sodium 133 L Potassium 3.9 Chloride 96 L Carbon Dioxide 29 Anion Gap 8 BUN 46 H Creatinine 1.68 H Est GFR ( Amer) 34.9 Est GFR (Non-Af Amer) 28.8 BUN/Creatinine Ratio 27.4 H Glucose 84 Calcium 8.8 Random Vancomycin 20.0 Microbiology 07/08/18 19:13 Anaerobic Culture - Preliminary Wound No Growth Day 2 Acid Fast Bacilli Smear - Final 07/08/18 19:13 Gram Stain - Final Hip Left Wound Culture - Preliminary No Growth Day 2 07/08/18 19:13 Anaerobic Culture - Preliminary Wound No Growth Day 2 Acid Fast Bacilli Smear - Final 07/08/18 19:13 Gram Stain - Final Hip Left Wound Culture - Preliminary No Growth Day 2 07/08/18 19:13 Anaerobic Culture - Preliminary Wound No Growth Day 2 Acid Fast Bacilli Smear - Final 07/08/18 19:13 Gram Stain - Final Hip Left Wound Culture - Preliminary No Growth Day 2 07/03/18 22:22 Aerobic Blood Culture - Final Blood Venous No Growth Day 5 Anaerobic Blood Culture - Final No Growth Day 5 07/03/18 22:54 Aerobic Blood Culture - Final Blood Venous No Growth Day 5 Anaerobic Blood Culture - Final No Growth Day 5 07/04/18 00:00 Gram Stain - Final Hip Left Wound Culture - Final Corynebacterium Striatum 07/03/18 22:35 Urine Culture - Final Urine Klebsiella Pneumoniae 07/03/18 23:11 Gram Stain - Final Sputum Sputum Culture - Final Normal [place] Assessment: 1. Left hip infection. Initial culture with Corynebacterium Striatum. S/P Irrigation and debridement of the subcutaneous tissue with Dr. Johnson, POD # 3. Cultures from the OR with no growth day 2. Afebrile and leukocytosis is improving. Blood cultures with no growth on day 5. 2. Klebsiella Pneumoniae UTI, in the setting of a chronic indwelling urinary catheter. Received 5 days of Cefepime. 3. CKD, stage 3-4. Creatinine is near baseline. 4. Morbid obesity. BMI 35.8. Plan: Continue IV Vancomycin while in the hospital. Orthopedics is requesting 7 days of ABX, day 4/7. She may be discharged to home on PO Doxycycline to complete her 7 day course of ABX, if ok with orthopedics.
[2018-07-11] MEDS: Vancomycin(*) 500 MG in NS 0.9% 250 ML* 250 ML IVPB SCH (11:22)
--- NOTE | 2018-07-11 11:54 | PN ---
Progress Note - Progress Note Date of Service: 07/11/18 SOAP: Subjective: [] Patient is seen OOB in chair. Still coughing. Denies significant left hip pain. Denies fever, chills, SOB, nausea. Objective: [] Vital Signs Temp 98.4 F 07/11/18 11:30 Pulse 57 07/11/18 11:30 Resp 16 07/11/18 07:49 BP 116/39 07/11/18 11:30 Pulse Ox 95 07/11/18 11:30 Intake & Output 07/10/18 07/11/18 07/11/18 18:59 06:59 18:59 Intake Total 850 440 Output Total 950 Balance 850 -510 Weight 206 lb Intake: IV Fluids 310 ABX - VANCOMYCIN 255 NS (0.9%) 55 Oral 540 440 Output: Jerez 950 Other: Estimated Void Medium # Bowel Movements 1 0 Estimated Stool Amount Large # Voids 1 Laboratory Results - last 24 hr 07/11/18 07/11/18 05:59 05:59 WBC 11.2 H RBC 3.19 L Hgb 9.6 L Hct 29 L MCV 91 MCH 30 MCHC 33 RDW 16 H Plt Count 284 MPV 6.1 L Neut % (Auto) 73.8 Lymph % (Auto) 14.5 [place] % (Auto) 11.0 Eos % (Auto) 0.4 Baso % (Auto) 0.3 Absolute Neuts (auto) 8.3 H Absolute Lymphs (auto) 1.6 Absolute Monos (auto) 1.2 H Absolute Eos (auto) 0.0 Absolute Basos (auto) 0.0 Absolute Nucleated RBC 0.0 Nucleated RBC % 0.0 Sodium 133 L Potassium 3.9 Chloride 96 L Carbon Dioxide 29 Anion Gap 8 BUN 46 H Creatinine 1.68 H Est GFR ( Amer) 34.9 Est GFR (Non-Af Amer) 28.8 BUN/Creatinine Ratio 27.4 H Glucose 84 Calcium 8.8 Random Vancomycin 20.0 Left hip incision without purulent drainage, no erythema, small amount bloody drainage on 4x4s +DF left ankle sensation intact distally Assessment: []s/p . Left hip infection. Initial culture with Corynebacterium Striatum. S/P Irrigation and debridement of the subcutaneous tissue with Dr. Johnson, POD # 4. Preliminary cultures from the OR with no growth day 2. Afebrile. Leukocytosis improving. 2. Klebsiella Pneumoniae UTI, in the setting of a chronic indwelling urinary catheter. Received 5 days of Cefepime. Plan: Dressing change today Continue 7 full days of Vanco Possible PMRU discharge 1-2 days
[2018-07-11] MEDS: Atorvastatin* 40 MG TAB PO SCH (17:10)
--- NOTE | 2018-07-11 18:11 | PN ---
Subjective Date of Service: 07/11/18 Interval History: Ms. Sherwood is feeling good. She has no complaints. She is sitting up in the recliner watching tv. No pain. Objective Active Medications: Acetaminophen (Tylenol Tab*) 650 mg PO Q4H PRN PRN Reason: FEVER/PAIN Last Admin: 07/04/18 00:54 Dose: 650 mg Albuterol/Ipratropium (Duoneb (Albuterol 2.5 Mg/Ipratropium 0.5 Mg)) 1 neb INH Q4H PRN PRN Reason: SOB/WHEEZING Amiodarone HCl (Cordarone Tab*) 200 mg PO EVERY OTHER DAY [facility] Last Admin: 07/10/18 08:20 Dose: 200 mg Amiodarone HCl (Cordarone Tab*) 300 mg PO EVERY OTHER DAY [facility] Last Admin: 07/11/18 08:19 Dose: 300 mg Apixaban (Eliquis*) 2.5 mg PO BID [facility] Last Admin: 07/11/18 08:20 Dose: 2.5 mg Aspirin (Aspirin 81 Mg Chew Tab*) 81 mg PO DAILY [facility] Last Admin: 07/11/18 08:19 Dose: 81 mg Atorvastatin Calcium (Lipitor*) 40 mg PO 1700 [facility] Last Admin: 07/11/18 17:10 Dose: 40 mg Docusate Sodium (Colace Cap*) 100 mg PO BID [facility] Last Admin: 07/11/18 08:19 Dose: 100 mg Ferrous Sulfate (Ferrous Sulfate Tab*) 325 mg PO DAILY [facility] Last Admin: 07/11/18 08:19 Dose: 325 mg Folic Acid (Folvite Tab*) 1 mg PO DAILY [facility] Last Admin: 07/11/18 08:19 Dose: 1 mg Furosemide (Lasix Tab*) 40 mg PO DAILY [facility] Last Admin: 07/11/18 08:19 Dose: 40 mg Hydralazine HCl (Apresoline Iv*) 10 mg IV SLOW PU Q4H PRN PRN Reason: SYSTOLIC BP GREATER THAN: Last Admin: 07/10/18 08:20 Dose: 10 mg Vancomycin HCl 500 mg/ Sodium (Chloride) 250 mls @ 0 mls/hr IVPB Q24H [facility] Last Admin: 07/11/18 11:22 Dose: 167 mls/hr Levothyroxine Sodium (Synthroid Tab*) 12.5 mcg PO DAILY@0600 [facility] Last Admin: 07/11/18 05:28 Dose: 12.5 mcg Magnesium Hydroxide (Milk Of Magnesia Liq*) 30 ml PO Q6H PRN PRN Reason: CONSTIPATION Metoprolol Tartrate (Lopressor Tab*) 25 mg PO BID [facility] Last Admin: 07/11/18 08:20 Dose: 25 mg Nystatin (Nystatin Top Powder*) 1 applic TOPICAL BID [facility] Last Admin: 07/11/18 08:20 Dose: 1 applic Ondansetron HCl (Zofran Inj*) 4 mg IV Q4H PRN PRN Reason: NAUSEA/VOMITING Oxycodone HCl (Roxycodone Tab*) 5 mg PO Q6H PRN PRN Reason: PAIN - MILD TO MODERATE Pharmacy Consult (Vancomycin Per Pharmacy*) 1 note FOLLOW UP . PRN PRN Reason: PER PROTOCOL Pharmacy Profile Note (Vancomycin Trough Check) 1 note FOLLOW UP 1100 ONE Stop: 07/13/18 11:01 Prednisone (Deltasone Tab*) 20 mg PO DAILY [facility] Last Admin: 07/11/18 08:20 Dose: 20 mg Senna (Senokot Tab*) 1 tab PO BID [facility] Last Admin: 07/11/18 08:20 Dose: Not Given Spironolactone (Aldactone Tab*) 25 mg PO DAILY [facility] Last Admin: 07/11/18 08:19 Dose: 25 mg Vital Signs - 8 hr 07/11/18 07/11/18 07/11/18 11:30 15:26 16:00 Temperature 98.4 F 99.0 F Pulse Rate 57 63 Respiratory 20 Rate Blood Pressure 116/39 120/58 (mmHg) O2 Sat by Pulse 95 94 94 Oximetry Oxygen Devices in Use Now: None Appearance: alert, well appearing resting comfortably in bed Eyes: No Scleral Icterus Ears/Nose/Mouth/Throat: NL Teeth, Lips, Gums Neck: NL Appearance and Movements; NL JVP Respiratory: Symmetrical Chest Expansion and Respiratory Effort, Clear to Auscultation Cardiovascular: - - irregular rhythm Abdominal: NL Sounds; No Tenderness; No Distention, - - obese Lymphatic: No Cervical Adenopathy Extremities: No Edema, - - left hip wound is taped, good range of motion Skin: No Rash or Ulcers Neurological: NL Sensation Result Diagrams: 07/11/18 05:59 07/11/18 05:59 Microbiology and Other Data: Microbiology 07/04/18 00:00 Gram Stain - Final Hip Left 07/03/18 23:11 Gram Stain - Final Sputum Assess/Plan/Problems-Billing Assessment: 87 yo F h/o hemiarthroplasty in 04/2018, afib, cad, ckd pw weakness found with hyponatremia, SIM and concern for underlying thigh abscess with stay cb wide complex tachycardia concerning for VT. Now s/p wound washout. - Patient Problems (1) Urinary retention Current Visit: No Status: Acute Code(s): R33.9 - RETENTION OF URINE, UNSPECIFIED SNOMED Code(s): 899017673 Comment: Has musa from previous admission (retention) with klebsiella UTI this admission and was effectively treated with cefepime Bladder training with clamped musa being done today (2) Abscess Current Visit: Yes Status: Acute Code(s): L02.91 - CUTANEOUS ABSCESS, UNSPECIFIED SNOMED Code(s): 237719034 Comment: s/p washout improving plan for 7 days total of vanc if approved for PMRU (if not, ID recommends that she can continue the 7 day course on PO doxycycline) (3) Acute kidney failure Current Visit: Yes Status: Acute Comment: resolved after IVF (4) Acute respiratory failure with hypoxia Current Visit: Yes Status: Acute Code(s): J96.01 - ACUTE RESPIRATORY FAILURE WITH HYPOXIA SNOMED Code(s): 79773670 Comment: related to acutely decompensately HF now resolved Continue IS and flutter valve Appropriatley diuresed Taper prednisone (5) Atrial fibrillation Current Visit: Yes Status: Acute Code(s): I48.91 - UNSPECIFIED ATRIAL FIBRILLATION SNOMED Code(s): 40606695 Comment: continue eliquis continue metoprolol and amiodarone (6) Hypertension Current Visit: Yes Status: Acute Code(s): I10 - ESSENTIAL (PRIMARY) HYPERTENSION SNOMED Code(s): 85176718 Comment: restarted aldactone 07/06 Lasix metoprolol increased as above (7) Hyponatremia Current Visit: Yes Status: Acute Code(s): E87.1 - HYPO-OSMOLALITY AND HYPONATREMIA SNOMED Code(s): 76119053 Comment: Improved with fluid challange - supports hypovolemic hyponatremia Holding additional fluids (8) VT (ventricular tachycardia) Current Visit: Yes Status: Acute Code(s): I47.2 - VENTRICULAR TACHYCARDIA SNOMED Code(s): 40497601 Comment: Continue home amiodarone dosing (9) CKD (chronic kidney disease) stage 3, GFR 30-59 ml/min Current Visit: No Status: Acute Code(s): N18.3 - CHRONIC KIDNEY DISEASE, STAGE 3 (MODERATE) SNOMED Code(s): 984219469 Comment: Creat around baseline (10) Coronary artery disease Current Visit: No Status: Acute Code(s): I25.10 - ATHSCL HEART DISEASE OF [place] CORONARY ARTERY W/O ANG PCTRS SNOMED Code(s): 75235015 Comment: Continue ASA, metoprolol and lipitor. No c/o CP or concerning signs/ symptoms. Status and Disposition: Inpatient, awaiting PMRU evaluation
[2018-07-12] MEDS: Levothyroxine TAB* 25 MCG TAB PO SCH (05:10)
[2018-07-12] MEDS: Aspirin 81 mg CHEW TAB* 81 MG TAB.CHEW PO SCH (08:24)
[2018-07-12] MEDS: Folic Acid TAB* 1 MG PO SCH (08:24)
[2018-07-12] MEDS: Metoprolol Tartrate TAB* 25 MG PO SCH ×2 (08:24→20:53)
[2018-07-12] MEDS: Furosemide TAB* 40 MG PO SCH (08:25)
[2018-07-12] MEDS: Docusate CAP* 100 MG PO SCH ×2 (08:25→21:17)
[2018-07-12] MEDS: Nystatin TOP POWDER* 15 GM BTL TOPICAL SCH ×2 (08:25→20:53)
[2018-07-12] MEDS: Apixaban* 2.5 MG TAB PO SCH ×2 (08:25→20:53)
[2018-07-12] MEDS: Ferrous Sulfate TAB* 325 MG PO SCH (08:25)
[2018-07-12] MEDS: Amiodarone TAB* 200 MG PO SCH (08:25)
[2018-07-12] MEDS: predniSONE TAB* 20 MG PO SCH (08:26)
[2018-07-12] MEDS: Senna TAB PO SCH ×2 (08:26→21:17)
[2018-07-12] MEDS: Spironolactone TAB* 25 MG PO SCH (08:26)
--- NOTE | 2018-07-12 08:35 | PN ---
Progress Note - Progress Note Date of Service: 07/12/18 SOAP: Subjective: POD #4 left hip I&D for superficial abscess. Doing well. No c/o pain. Denies f/c , CP/SOB, n/v. Objective: Vitals: Temp Pulse Resp BP Pulse Ox 98.0 F 59 17 158/50 96 07/12/18 03:18 07/12/18 03:56 07/12/18 03:18 07/12/18 03:56 07/12/18 03:18 Gen: A&Ox3, NAD at rest sitting in bed Right hip: Incision C/D/I with sae. No drainage or erythema. +f/e at knee, ankle and MTPs. N/V intact Assessment: POD #4 Left hip I&D Plan: Abx per ID WBAT LLE, cont PT/OT while in hospital F/u with Dr. Johnson next week
[2018-07-12] MEDS: Vancomycin(*) 500 MG in NS 0.9% 250 ML* 250 ML IVPB SCH (11:08)
[2018-07-12] MEDS: Acetaminophen TAB* 325 MG PO PRN (11:53)
--- NOTE | 2018-07-12 12:31 | PN ---
Subjective Date of Service: 07/12/18 Interval History: Pt feels well. Had epigastric pain earlier on today, now resolved Objective Active Medications: Acetaminophen (Tylenol Tab*) 650 mg PO Q4H PRN PRN Reason: FEVER/PAIN Last Admin: 07/12/18 11:53 Dose: 650 mg Albuterol/Ipratropium (Duoneb (Albuterol 2.5 Mg/Ipratropium 0.5 Mg)) 1 neb INH Q4H PRN PRN Reason: SOB/WHEEZING Amiodarone HCl (Cordarone Tab*) 200 mg PO EVERY OTHER DAY [facility] Last Admin: 07/12/18 08:25 Dose: 200 mg Amiodarone HCl (Cordarone Tab*) 300 mg PO EVERY OTHER DAY [facility] Last Admin: 07/11/18 08:19 Dose: 300 mg Apixaban (Eliquis*) 2.5 mg PO BID [facility] Last Admin: 07/12/18 08:25 Dose: 2.5 mg Aspirin (Aspirin 81 Mg Chew Tab*) 81 mg PO DAILY [facility] Last Admin: 07/12/18 08:24 Dose: 81 mg Atorvastatin Calcium (Lipitor*) 40 mg PO 1700 [facility] Last Admin: 07/11/18 17:10 Dose: 40 mg Docusate Sodium (Colace Cap*) 100 mg PO BID [facility] Last Admin: 07/12/18 08:25 Dose: Not Given Ferrous Sulfate (Ferrous Sulfate Tab*) 325 mg PO DAILY [facility] Last Admin: 07/12/18 08:25 Dose: 325 mg Folic Acid (Folvite Tab*) 1 mg PO DAILY [facility] Last Admin: 07/12/18 08:24 Dose: 1 mg Furosemide (Lasix Tab*) 40 mg PO DAILY [facility] Last Admin: 07/12/18 08:25 Dose: 40 mg Hydralazine HCl (Apresoline Iv*) 10 mg IV SLOW PU Q4H PRN PRN Reason: SYSTOLIC BP GREATER THAN: Last Admin: 07/10/18 08:20 Dose: 10 mg Vancomycin HCl 500 mg/ Sodium (Chloride) 250 mls @ 0 mls/hr IVPB Q24H [facility] Last Admin: 07/12/18 11:08 Dose: 166.7 mls/hr Levothyroxine Sodium (Synthroid Tab*) 12.5 mcg PO DAILY@0600 [facility] Last Admin: 07/12/18 05:10 Dose: 12.5 mcg Magnesium Hydroxide (Milk Of Magnesia Liq*) 30 ml PO Q6H PRN PRN Reason: CONSTIPATION Metoprolol Tartrate (Lopressor Tab*) 25 mg PO BID [facility] Last Admin: 07/12/18 08:24 Dose: 25 mg Nystatin (Nystatin Top Powder*) 1 applic TOPICAL BID [facility] Last Admin: 07/12/18 08:25 Dose: 1 applic Ondansetron HCl (Zofran Inj*) 4 mg IV Q4H PRN PRN Reason: NAUSEA/VOMITING Oxycodone HCl (Roxycodone Tab*) 5 mg PO Q6H PRN PRN Reason: PAIN - MILD TO MODERATE Last Admin: 07/12/18 11:53 Dose: 5 mg Pharmacy Consult (Vancomycin Per Pharmacy*) 1 note FOLLOW UP . PRN PRN Reason: PER PROTOCOL Pharmacy Profile Note (Vancomycin Trough Check) 1 note FOLLOW UP 1100 ONE Stop: 07/13/18 11:01 Prednisone (Deltasone Tab*) 20 mg PO DAILY [facility] Last Admin: 07/12/18 08:26 Dose: 20 mg Senna (Senokot Tab*) 1 tab PO BID [facility] Last Admin: 07/12/18 08:26 Dose: Not Given Spironolactone (Aldactone Tab*) 25 mg PO DAILY [facility] Last Admin: 07/12/18 08:26 Dose: 25 mg Vital Signs - 8 hr 07/12/18 07/12/18 07/12/18 08:00 11:33 11:53 Temperature 97.4 F Pulse Rate 58 Respiratory 17 18 18 Rate Blood Pressure 126/55 (mmHg) O2 Sat by Pulse 96 98 Oximetry Oxygen Devices in Use Now: None Appearance: 87 yo F in nAD, AAOx3 Eyes: No Scleral Icterus, PERRLA Ears/Nose/Mouth/Throat: NL Teeth, Lips, Gums, Mucous Membranes Moist Neck: NL Appearance and Movements; NL JVP, Trachea Midline Respiratory: Symmetrical Chest Expansion and Respiratory Effort, - - scant mid lung wheeznig b/l Cardiovascular: NL Sounds; No Murmurs; No JVD, RRR Abdominal: NL Sounds; No Tenderness; No Distention, No Hepatosplenomegaly Lymphatic: No Cervical Adenopathy Extremities: No Clubbing, Cyanosis, - - trace ankle edema b/l Skin: No Nodules or Sclerosis, - - left hip wound covered with post op dressings Neurological: Alert and Oriented x 3, NL Muscle Strength and Tone Result Diagrams: 07/11/18 05:59 07/11/18 05:59 Microbiology and Other Data: Microbiology 07/04/18 00:00 Gram Stain - Final Hip Left 07/03/18 23:11 Gram Stain - Final Sputum Assess/Plan/Problems-Billing Assessment: 87 yo F h/o hemiarthroplasty in 04/2018, afib, cad, ckd pw weakness found with hyponatremia, SIM and concern for underlying thigh abscess with stay cb wide complex tachycardia concerning for VT. Now s/p wound washout. - Patient Problems (1) Abscess Comment: s/p washout improving plan for 7 (today day 4)days total of vanc if approved for PMRU (if not, ID recommends that she can continue the 7 day course on PO doxycycline) (2) Acute kidney failure Comment: resolved after IVF (3) Atrial fibrillation Comment: continue eliquis continue metoprolol and amiodarone (4) Hypertension Comment: restarted aldactone 07/06 Lasix metoprolol increased (5) Hyponatremia Comment: Improved with fluid challange - supports hypovolemic hyponatremia Holding additional fluids (6) VT (ventricular tachycardia) Comment: Continue home amiodarone dosing (7) CKD (chronic kidney disease) stage 3, GFR 30-59 ml/min Comment: Creat around baseline (8) Coronary artery disease Comment: Continue ASA, metoprolol and lipitor. No c/o CP or concerning signs/ symptoms. (9) Urinary retention Comment: Has musa from previous admission (retention) with klebsiella UTI this admission and was effectively treated with cefepime Bladder training with clamped musa cont (10) Acute respiratory failure with hypoxia Comment: related to acutely decompensately HF now resolved Continue IS and flutter valve Appropiately diuresed Taper prednisone (11) DVT prophylaxis Comment: apixiban Status and Disposition: Inpatient, awaiting PMRU evaluation
[2018-07-12] MEDS: Atorvastatin* 40 MG TAB PO SCH (17:26)
[2018-07-13] MEDS: Levothyroxine TAB* 25 MCG TAB PO SCH (05:06)
[2018-07-13 05:32] LABS: Hematocrit 28 % (35-47); Hemoglobin 9.5 g/dL (12.0-16.0); Mean Corpuscular HGB Conc 34 g/dL (31-36); Mean Corpuscular Hemoglobin 31 pg (27-31); Mean Corpuscular Volume 92 fL (80-97); Mean Platelet Volume 6.3 fL (7.4-10.4); Platelet Count 284 10^3/uL (150-450); Red Blood Count 3.08 10^6 /uL (3.70-4.87); Red Cell Distribution Width 17 % (10.5-15); White Blood Count 9.9 10^3/uL (3.5-10.8)
[2018-07-13 05:42] LABS: BUN/Creatinine Ratio 25.9 (8-20); EGFR African American 36.4 (>60); EGFR Non-African American 30.1 (>60); Potassium 3.8 mmol/L (3.5-5.0)
[2018-07-13 05:52] LABS: ABS Basophils 0.1 10^3/ul (0-0.2); ABS Lymphocytes 1.6 10^3/ul (1.0-4.8); ABS Neutrophils 7.3 10^3/ul (1.5-7.7); Eosinophil % 0.4 %; Lymphocyte % 15.7 %
[2018-07-13] MEDS: Amiodarone TAB* 200 MG PO SCH (08:05)
[2018-07-13] MEDS: Folic Acid TAB* 1 MG PO SCH (08:05)
[2018-07-13] MEDS: Furosemide TAB* 40 MG PO SCH (08:06)
[2018-07-13] MEDS: Metoprolol Tartrate TAB* 25 MG PO SCH ×2 (08:06→21:40)
[2018-07-13] MEDS: Apixaban* 2.5 MG TAB PO SCH ×2 (08:06→21:40)
[2018-07-13] MEDS: Spironolactone TAB* 25 MG PO SCH (08:07)
[2018-07-13] MEDS: Aspirin 81 mg CHEW TAB* 81 MG TAB.CHEW PO SCH (08:07)
[2018-07-13] MEDS: predniSONE TAB* 10 MG PO SCH (08:07)
[2018-07-13] MEDS: Nystatin TOP POWDER* 15 GM BTL TOPICAL SCH ×2 (08:12→21:41)
[2018-07-13] MEDS: Senna TAB PO SCH ×2 (08:37→21:40)
[2018-07-13] MEDS: Docusate CAP* 100 MG PO SCH ×2 (08:37→21:40)
[2018-07-13] MEDS: Ferrous Sulfate TAB* 325 MG PO SCH (08:50)
[2018-07-13] MEDS ORDERED: Vancomycin Trough Check NOTE FOLLOW UP ONE (11:00)
--- NOTE | 2018-07-13 11:26 | PN ---
Progress Note - Progress Note Date of Service: 07/13/18 SOAP: Subjective: [POD#5 L hip I&D. Pt is doing well and pain is controlled. Dr. Johnson changed her dressing yesterday so I inspected the area but left it on. Pt still has a productive cough but denies any CP, SOB, f/c, N/V/D. ] Objective: [General: A&O x 3. NAD sitting in chair. LLE: Dressing C/D/I. No erythema or edema. Calf was soft and NT. + f/e knee, ankle and MTPs. LLE N/V intact.] Vital Signs Temp Pulse Resp BP Pulse Ox 98.6 F 58 16 161/56 97 07/13/18 07:32 07/13/18 07:32 07/13/18 07:32 07/13/18 07:32 07/13/18 07:32 Abnormal Lab Results 07/13/18 07/13/18 05:01 05:01 WBC 9.9 RBC 3.08 L Hgb 9.5 L Hct 28 L MCV 92 MCH 31 MCHC 34 RDW 17 H Plt Count 284 MPV 6.3 L Neut % (Auto) 73.5 Lymph % (Auto) 15.7 [place] % (Auto) 9.8 Eos % (Auto) 0.4 Baso % (Auto) 0.6 Absolute Neuts (auto) 7.3 Absolute Lymphs (auto) 1.6 Absolute Monos (auto) 1.0 H Absolute Eos (auto) 0.0 Absolute Basos (auto) 0.1 Absolute Nucleated RBC 0.0 Nucleated RBC % 0.0 Sodium 134 L Potassium 3.8 Chloride 98 L Carbon Dioxide 28 Anion Gap 8 BUN 42 H Creatinine 1.62 H Est GFR ( Amer) 36.4 Est GFR (Non-Af Amer) 30.1 BUN/Creatinine Ratio 25.9 H Glucose 86 Calcium 9.0 Assessment: [POD #5 L hip I&D.] Plan: [Continue DSD Continue ABX per ID Continue PT/OT, LLE WBAT [place] will stay in till 3 weeks post op Pt will f/u with Dr. Johnson in clinic for wound check]
[2018-07-13] MEDS: Vancomycin(*) 500 MG in NS 0.9% 250 ML* 250 ML IVPB SCH (11:49)
--- NOTE | 2018-07-13 11:57 | PN ---
Subjective Date of Service: 07/13/18 Interval History: Pt feels well. cough improving with flutter valve Objective Active Medications: Acetaminophen (Tylenol Tab*) 650 mg PO Q4H PRN PRN Reason: FEVER/PAIN Last Admin: 07/12/18 11:53 Dose: 650 mg Albuterol/Ipratropium (Duoneb (Albuterol 2.5 Mg/Ipratropium 0.5 Mg)) 1 neb INH Q4H PRN PRN Reason: SOB/WHEEZING Amiodarone HCl (Cordarone Tab*) 200 mg PO EVERY OTHER DAY [facility] Last Admin: 07/12/18 08:25 Dose: 200 mg Amiodarone HCl (Cordarone Tab*) 300 mg PO EVERY OTHER DAY [facility] Last Admin: 07/13/18 08:05 Dose: 300 mg Apixaban (Eliquis*) 2.5 mg PO BID [facility] Last Admin: 07/13/18 08:06 Dose: 2.5 mg Aspirin (Aspirin 81 Mg Chew Tab*) 81 mg PO DAILY [facility] Last Admin: 07/13/18 08:07 Dose: 81 mg Atorvastatin Calcium (Lipitor*) 40 mg PO 1700 [facility] Last Admin: 07/12/18 17:26 Dose: 40 mg Docusate Sodium (Colace Cap*) 100 mg PO BID [facility] Last Admin: 07/13/18 08:37 Dose: Not Given Ferrous Sulfate (Ferrous Sulfate Tab*) 325 mg PO DAILY [facility] Last Admin: 07/13/18 08:50 Dose: 325 mg Folic Acid (Folvite Tab*) 1 mg PO DAILY [facility] Last Admin: 07/13/18 08:05 Dose: 1 mg Furosemide (Lasix Tab*) 40 mg PO DAILY [facility] Last Admin: 07/13/18 08:06 Dose: 40 mg Hydralazine HCl (Apresoline Iv*) 10 mg IV SLOW PU Q4H PRN PRN Reason: SYSTOLIC BP GREATER THAN: Last Admin: 07/10/18 08:20 Dose: 10 mg Vancomycin HCl 500 mg/ Sodium (Chloride) 250 mls @ 0 mls/hr IVPB Q24H [facility] Last Admin: 07/13/18 11:49 Dose: 166 mls/hr Levothyroxine Sodium (Synthroid Tab*) 12.5 mcg PO DAILY@0600 [facility] Last Admin: 07/13/18 05:06 Dose: 12.5 mcg Magnesium Hydroxide (Milk Of Magnesia Liq*) 30 ml PO Q6H PRN PRN Reason: CONSTIPATION Metoprolol Tartrate (Lopressor Tab*) 25 mg PO BID [facility] Last Admin: 07/13/18 08:06 Dose: 25 mg Nystatin (Nystatin Top Powder*) 1 applic TOPICAL BID [facility] Last Admin: 07/13/18 08:12 Dose: 1 applic Ondansetron HCl (Zofran Inj*) 4 mg IV Q4H PRN PRN Reason: NAUSEA/VOMITING Oxycodone HCl (Roxycodone Tab*) 5 mg PO Q6H PRN PRN Reason: PAIN - MILD TO MODERATE Last Admin: 07/12/18 11:53 Dose: 5 mg Pharmacy Consult (Vancomycin Per Pharmacy*) 1 note FOLLOW UP . PRN PRN Reason: PER PROTOCOL Prednisone (Deltasone Tab*) 10 mg PO DAILY [facility] Last Admin: 07/13/18 08:07 Dose: 10 mg Senna (Senokot Tab*) 1 tab PO BID [facility] Last Admin: 07/13/18 08:37 Dose: Not Given Spironolactone (Aldactone Tab*) 25 mg PO DAILY [facility] Last Admin: 07/13/18 08:07 Dose: 25 mg Vital Signs - 8 hr 07/13/18 07/13/18 07/13/18 07:30 07:32 11:38 Temperature 98.6 F 97.9 F Pulse Rate 58 56 Respiratory 18 16 17 Rate Blood Pressure 161/56 149/41 (mmHg) O2 Sat by Pulse 97 97 100 Oximetry Oxygen Devices in Use Now: None Appearance: 87 yo f in nAD, AAOx3 Eyes: No Scleral Icterus, PERRLA Ears/Nose/Mouth/Throat: NL Teeth, Lips, Gums, Mucous Membranes Moist Neck: NL Appearance and Movements; NL JVP, Trachea Midline Respiratory: Symmetrical Chest Expansion and Respiratory Effort, - - scattered wheezes mid to lower lungs-partially clearing with cough Cardiovascular: NL Sounds; No Murmurs; No JVD Abdominal: NL Sounds; No Tenderness; No Distention Lymphatic: No Cervical Adenopathy Extremities: No Clubbing, Cyanosis Skin: No Nodules or Sclerosis, - - left thigh wound not uncovered from post op dressings Neurological: Alert and Oriented x 3, NL Muscle Strength and Tone Result Diagrams: 07/13/18 05:01 07/13/18 05:01 Microbiology and Other Data: Microbiology 07/04/18 00:00 Gram Stain - Final Hip Left 07/03/18 23:11 Gram Stain - Final Sputum Assess/Plan/Problems-Billing Assessment: 87 yo F h/o hemiarthroplasty in 04/2018, afib, cad, ckd pw weakness found with hyponatremia, SIM and concern for underlying thigh abscess with stay cb wide complex tachycardia concerning for VT. Now s/p wound washout. - Patient Problems (1) Abscess Comment: s/p washout improving plan for 7 (today day 5)days total of vanc if approved for PMRU (if not, ID recommends that she can continue the 7 day course on PO doxycycline) (2) Acute kidney failure Comment: resolved after IVF (3) Atrial fibrillation Comment: continue eliquis continue metoprolol and amiodarone (4) Hypertension Comment: restarted aldactone 07/06 Lasix metoprolol increased (5) Hyponatremia Comment: Improved with fluid challange - supports hypovolemic hyponatremia Holding additional fluids (6) VT (ventricular tachycardia) Comment: Continue home amiodarone dosing (7) CKD (chronic kidney disease) stage 3, GFR 30-59 ml/min Comment: Creat around baseline (8) Coronary artery disease Comment: Continue ASA, metoprolol and lipitor. No c/o CP or concerning signs/ symptoms. (9) Urinary retention Comment: Has musa from previous admission (retention) with klebsiella UTI this admission and was effectively treated with cefepime Bladder training with clamped musa cont (10) Acute respiratory failure with hypoxia Comment: related to acutely decompensately HF now resolved Continue IS and flutter valve Appropiately diuresed Taper prednisone (11) DVT prophylaxis Comment: apixaban Status and Disposition: Inpatient, awaiting PMRU evaluation
[2018-07-13] MEDS: Atorvastatin* 40 MG TAB PO SCH (17:12)
[2018-07-14] MEDS: Levothyroxine TAB* 25 MCG TAB PO SCH (05:39)
[2018-07-14] MEDS: Spironolactone TAB* 25 MG PO SCH (08:58)
[2018-07-14] MEDS: Docusate CAP* 100 MG PO SCH ×2 (08:58→21:01)
[2018-07-14] MEDS: Senna TAB PO SCH ×2 (08:58→21:01)
[2018-07-14] MEDS: Folic Acid TAB* 1 MG PO SCH (08:58)
[2018-07-14] MEDS: Metoprolol Tartrate TAB* 25 MG PO SCH ×2 (08:58→21:00)
[2018-07-14] MEDS: predniSONE TAB* 10 MG PO SCH (08:58)
[2018-07-14] MEDS: Furosemide TAB* 40 MG PO SCH (08:59)
[2018-07-14] MEDS: Aspirin 81 mg CHEW TAB* 81 MG TAB.CHEW PO SCH (08:59)
[2018-07-14] MEDS: Apixaban* 2.5 MG TAB PO SCH ×2 (08:59→21:00)
[2018-07-14] MEDS: Ferrous Sulfate TAB* 325 MG PO SCH (08:59)
[2018-07-14] MEDS: Amiodarone TAB* 200 MG PO SCH (08:59)
[2018-07-14] MEDS: Nystatin TOP POWDER* 15 GM BTL TOPICAL SCH ×2 (09:01→21:07)
--- NOTE | 2018-07-14 09:08 | PN ---
Progress Note - Progress Note Date of Service: 07/14/18 SOAP: Subjective: CC: Left hip infection HPI: Ms. Sherwood is an 87 yo female with PMH significant for CKD stage 3-4, P A fib, morbid obesity, HTN, HLD, CAD, chronic benign uterine mass, constipation, RACHANA, s/p bioprosthetic AVR, and recent left hip fracture S/P left hip hemiarthroplasty; who presented to the hospital for weakness, cough, and was noted to have drainage from her left hip incision. Denies fever, chills, shortness of breath, chest discomfort, N/V/D or constipation. Denies left hip pain. Continues to have an intermittent cough, that is nonproductive. Objective: Vital Signs - 8 hr 07/14/18 07/14/18 07/14/18 03:41 07:30 08:00 Temperature 97.9 F 97.6 F Pulse Rate 53 57 Respiratory 16 18 Rate Blood Pressure 159/52 154/52 (mmHg) O2 Sat by Pulse 96 99 99 Oximetry Physical Exam: General: NAD, laying in bed Neurological: Alert and Oriented x3 HEENT: MM moist, no thrush Cardiovascular: Heart rate regular Respiratory: Lung sounds clear Abdominal: Bowel sounds present; ABD soft, non tender and non distended Skin: No rash Laboratory Results - last 24 hr 07/13/18 07/14/18 07/14/18 10:32 05:37 05:37 ESR 36 H C-Reactive Protein 2.78 Vancomycin Trough 15.8 Microbiology 07/08/18 19:13 Anaerobic Culture - Final Wound No Growth Day 4 Acid Fast Bacilli Smear - Final 07/08/18 19:13 Gram Stain - Final Hip Left Wound Culture - Final No Growth Day 4 07/08/18 19:13 Anaerobic Culture - Final Wound No Growth Day 4 Acid Fast Bacilli Smear - Final 07/08/18 19:13 Gram Stain - Final Hip Left Wound Culture - Final No Growth Day 4 07/08/18 19:13 Anaerobic Culture - Final Wound No Growth Day 4 Acid Fast Bacilli Smear - Final 07/08/18 19:13 Gram Stain - Final Hip Left Wound Culture - Final No Growth Day 4 07/03/18 22:22 Aerobic Blood Culture - Final Blood Venous No Growth Day 5 Anaerobic Blood Culture - Final No Growth Day 5 07/03/18 22:54 Aerobic Blood Culture - Final Blood Venous No Growth Day 5 Anaerobic Blood Culture - Final No Growth Day 5 07/04/18 00:00 Gram Stain - Final Hip Left Wound Culture - Final Corynebacterium Striatum 07/03/18 22:35 Urine Culture - Final Urine Klebsiella Pneumoniae 07/03/18 23:11 Gram Stain - Final Sputum Sputum Culture - Final Normal Brooke Assessment: 1. Left hip infection. Initial culture with Corynebacterium Striatum. S/P Irrigation and debridement of the subcutaneous tissue with Dr. Johnson, POD # 7. Cultures from the OR with no growth day 4. Afebrile and leukocytosis resolved. Blood cultures with no growth on day 5. 2. Klebsiella Pneumoniae UTI, in the setting of a chronic indwelling urinary catheter. Received 5 days of Cefepime. 3. CKD, stage 3-4. Creatinine is near baseline. 4. Morbid obesity. BMI 35.8. Plan: Completed a 7 day course of IV vancomycin today. Will change to doxycycline 100 mg BID for 7 days.
--- NOTE | 2018-07-14 10:30 | PN ---
Progress Note - Progress Note Date of Service: 07/14/18 SOAP: Subjective: []Pt seen at bedside. She feels well, denies feeling of fever, chills, CP, SOB, dizziness, nausea. Objective: []General: Appears well, NAD LLE: left gip dressing changed, incision CDI without erythema or discharge, f/e of hip without pain, neurovascularly intact distally Caqlves supple and nontender without erythema, edema or palpable cords Assessment: [][POD #6 L hip I&D Plan: Continue DSD Continue ABX per ID. Last day of vanco today. Anticipate 2 weeks doxycycline Continue PT/OT, LLE WBAT [place] will stay in till 3 weeks post op Pt needs f/u with Dr. Johnson in clinic this week for wound check Wants to DC to daughters home. Ready for DC from ortho standpoint Vital Signs Temp 97.6 F 07/14/18 07:30 Pulse 57 07/14/18 07:30 Resp 18 07/14/18 08:00 BP 154/52 07/14/18 07:30 Pulse Ox 99 07/14/18 08:00 Intake & Output 07/13/18 07/14/18 07/14/18 18:59 06:59 18:59 Intake Total 1855 970 240 Output Total 600 1300 400 Balance 1255 -330 -160 Weight 209 lb Intake: IVPB 275 ABX - VANCOMYCIN 275 Oral 1580 970 240 Output: Urine 600 1300 400 Other: Estimated Void Large Date of Last Bowel 07/14/18 Movement # Bowel Movements 0 1 Estimated Stool Amount Small # Voids 1 Laboratory Last Values WBC 9.9 10^3/uL (3.5-10.8) 07/13/18 05:01 RBC 3.08 10^6 /uL (3.70-4.87) L 07/13/18 05:01 Hgb 9.5 g/dL (12.0-16.0) L 07/13/18 05:01 Hct 28 % (35-47) L 07/13/18 05:01 MCV 92 fL (80-97) 07/13/18 05:01 MCH 31 pg (27-31) 07/13/18 05:01 MCHC 34 g/dL (31-36) 07/13/18 05:01 RDW 17 % (10.5-15) H 07/13/18 05:01 Plt Count 284 10^3/uL (150-450) 07/13/18 05:01 MPV 6.3 fL (7.4-10.4) L 07/13/18 05:01 Neut % (Auto) 73.5 % 07/13/18 05:01 Lymph % (Auto) 15.7 % 07/13/18 05:01 [place] % (Auto) 9.8 % 07/13/18 05:01 Eos % (Auto) 0.4 % 07/13/18 05:01 Baso % (Auto) 0.6 % 07/13/18 05:01 Absolute Neuts (auto) 7.3 10^3/ul (1.5-7.7) 07/13/18 05:01 Absolute Lymphs (auto) 1.6 10^3/ul (1.0-4.8) 07/13/18 05:01 Absolute Monos (auto) 1.0 10^3/ul (0-0.8) H 07/13/18 05:01 Absolute Eos (auto) 0.0 10^3/ul (0-0.6) 07/13/18 05:01 Absolute Basos (auto) 0.1 10^3/ul (0-0.2) 07/13/18 05:01 Absolute Nucleated RBC 0.0 10^3/ul 07/13/18 05:01 Nucleated RBC % 0.0 07/13/18 05:01 ESR 36 mm/Hr (0-29) H 07/14/18 05:37 Sodium 134 mmol/L (135-145) L 07/13/18 05:01 Potassium 3.8 mmol/L (3.5-5.0) 07/13/18 05:01 Chloride 98 mmol/L (101-111) L 07/13/18 05:01 Carbon Dioxide 28 mmol/L (22-32) 07/13/18 05:01 Anion Gap 8 mmol/L (2-11) 07/13/18 05:01 BUN 42 mg/dL (6-24) H 07/13/18 05:01 Creatinine 1.62 mg/dL (0.51-0.95) H 07/13/18 05:01 Est GFR ( Amer) 36.4 (>60) 07/13/18 05:01 Est GFR (Non-Af Amer) 30.1 (>60) 07/13/18 05:01 BUN/Creatinine Ratio 25.9 (8-20) H 07/13/18 05:01 Glucose 86 mg/dL (70-100) 07/13/18 05:01 POC Glucose (mg/dL) 158 mg/dL (70-100) H 07/08/18 21:35 Serum Osmolality 256 mOsm/kg (275-295) L 07/03/18 20:27 Lactic Acid 1.2 mmol/L (0.5-2.0) 07/03/18 20:27 Calcium 9.0 mg/dL (8.6-10.3) 07/13/18 05:01 Magnesium 1.9 mg/dL (1.9-2.7) 07/06/18 07:26 Total Bilirubin 0.80 mg/dL (0.2-1.0) 07/03/18 20:27 AST 18 U/L (13-39) 07/03/18 20:27 ALT 19 U/L (7-52) 07/03/18 20:27 Alkaline Phosphatase 73 U/L (34-104) 07/03/18 20:27 C-Reactive Protein 2.78 mg/L (<8.01) 07/14/18 05:37 B-Natriuretic Peptide 191 pg/mL (<=100) H 07/03/18 20:27 Total Protein 6.9 g/dL (6.4-8.9) 07/03/18 20:27 Albumin 3.4 g/dL (3.2-5.2) 07/03/18 20:27 Globulin 3.5 g/dL (2-4) 07/03/18 20:27 Albumin/Globulin Ratio 1.0 (1-3) 07/03/18 20:27 TSH 2.89 mcIU/mL (0.34-5.60) 07/03/18 20:27 Urine Color Yellow 07/03/18 22:35 Urine Appearance Turbid 07/03/18 22:35 Urine pH 5.0 (5-9) 07/03/18 22:35 Ur Specific [place] 1.008 (1.010-1.030) L 07/03/18 22:35 Urine Protein 1+(30 mg/dl) (Negative) A 07/03/18 22:35 Urine Ketones Negative (Negative) 07/03/18 22:35 Urine Blood 3+ (Negative) A 07/03/18 22:35 Urine Nitrate Negative (Negative) 07/03/18 22:35 Urine Bilirubin Negative (Negative) 07/03/18 22:35 Urine Urobilinogen Negative (Negative) 07/03/18 22:35 Ur Leukocyte Esterase 3+ (Negative) A 07/03/18 22:35 Urine WBC (Auto) 3+(>20/hpf) (Absent) A 07/03/18 22:35 Urine RBC (Auto) 3+(>10/hpf) (Absent) A 07/03/18 22:35 Urine Bacteria 1+ (Absent) A 07/03/18 22:35 Hyaline Casts Present (Absent) A 07/03/18 22:35 Urine Osmolality 279 mOsm/kg (100-1150) 07/03/18 22:35 Ur Creatinine Concen 47.39 mg/dL 07/03/18 22:35 U Sodium Concentration 33 mmol/L 07/03/18 22:35 Urine Glucose Negative (Negative) 07/03/18 22:35 Vancomycin Trough 15.8 mcg/mL 07/13/18 10:32 Random Vancomycin 20.0 mcg/mL 07/11/18 05:59 Influenza A (Rapid) Negative (Negative) 07/03/18 20:45 Influenza B (Rapid) Negative (Negative) 07/03/18 20:45 Aerobic Suscept (NOE) See comment A 07/04/18 00:00 Blood Type O Positive 07/08/18 07:05 Antibody Screen Negative 07/08/18 07:05
[2018-07-14] MEDS: Vancomycin(*) 500 MG in NS 0.9% 250 ML* 250 ML IVPB SCH (10:56)
--- NOTE | 2018-07-14 12:33 | PN ---
Subjective Date of Service: 07/14/18 Interval History: Pt feels well. Awaiting PMRU's decision about possible admission to rehab Objective Active Medications: Acetaminophen (Tylenol Tab*) 650 mg PO Q4H PRN PRN Reason: FEVER/PAIN Last Admin: 07/12/18 11:53 Dose: 650 mg Albuterol/Ipratropium (Duoneb (Albuterol 2.5 Mg/Ipratropium 0.5 Mg)) 1 neb INH Q4H PRN PRN Reason: SOB/WHEEZING Amiodarone HCl (Cordarone Tab*) 200 mg PO EVERY OTHER DAY [facility] Last Admin: 07/14/18 08:59 Dose: 200 mg Amiodarone HCl (Cordarone Tab*) 300 mg PO EVERY OTHER DAY [facility] Last Admin: 07/13/18 08:05 Dose: 300 mg Apixaban (Eliquis*) 2.5 mg PO BID [facility] Last Admin: 07/14/18 08:59 Dose: 2.5 mg Aspirin (Aspirin 81 Mg Chew Tab*) 81 mg PO DAILY [facility] Last Admin: 07/14/18 08:59 Dose: 81 mg Atorvastatin Calcium (Lipitor*) 40 mg PO 1700 [facility] Last Admin: 07/13/18 17:12 Dose: 40 mg Docusate Sodium (Colace Cap*) 100 mg PO BID [facility] Last Admin: 07/14/18 08:58 Dose: 100 mg Ferrous Sulfate (Ferrous Sulfate Tab*) 325 mg PO DAILY [facility] Last Admin: 07/14/18 08:59 Dose: 325 mg Folic Acid (Folvite Tab*) 1 mg PO DAILY [facility] Last Admin: 07/14/18 08:58 Dose: 1 mg Furosemide (Lasix Tab*) 40 mg PO DAILY [facility] Last Admin: 07/14/18 08:59 Dose: 40 mg Hydralazine HCl (Apresoline Iv*) 10 mg IV SLOW PU Q4H PRN PRN Reason: SYSTOLIC BP GREATER THAN: Last Admin: 07/10/18 08:20 Dose: 10 mg Vancomycin HCl 500 mg/ Sodium (Chloride) 250 mls @ 166.667 mls/hr IVPB Q24H [facility] Last Admin: 07/14/18 10:56 Dose: 166.667 mls/hr Levothyroxine Sodium (Synthroid Tab*) 12.5 mcg PO DAILY@0600 [facility] Last Admin: 07/14/18 05:39 Dose: 12.5 mcg Magnesium Hydroxide (Milk Of Magnesia Liq*) 30 ml PO Q6H PRN PRN Reason: CONSTIPATION Metoprolol Tartrate (Lopressor Tab*) 25 mg PO BID [facility] Last Admin: 07/14/18 08:58 Dose: 25 mg Nystatin (Nystatin Top Powder*) 1 applic TOPICAL BID [facility] Last Admin: 07/14/18 09:01 Dose: 1 applic Ondansetron HCl (Zofran Inj*) 4 mg IV Q4H PRN PRN Reason: NAUSEA/VOMITING Oxycodone HCl (Roxycodone Tab*) 5 mg PO Q6H PRN PRN Reason: PAIN - MILD TO MODERATE Last Admin: 07/12/18 11:53 Dose: 5 mg Pharmacy Consult (Vancomycin Per Pharmacy*) 1 note FOLLOW UP . PRN PRN Reason: PER PROTOCOL Prednisone (Deltasone Tab*) 10 mg PO DAILY [facility] Last Admin: 07/14/18 08:58 Dose: 10 mg Senna (Senokot Tab*) 1 tab PO BID [facility] Last Admin: 07/14/18 08:58 Dose: 1 tab Spironolactone (Aldactone Tab*) 25 mg PO DAILY [facility] Last Admin: 07/14/18 08:58 Dose: 25 mg Vital Signs - 8 hr 07/14/18 07/14/18 07/14/18 07:30 08:00 11:07 Temperature 97.6 F 98.0 F Pulse Rate 57 56 Respiratory 18 18 18 Rate Blood Pressure 154/52 115/42 (mmHg) O2 Sat by Pulse 99 99 99 Oximetry Oxygen Devices in Use Now: None Appearance: 87 yo F in NAD, AAOx3 Eyes: No Scleral Icterus, PERRLA Ears/Nose/Mouth/Throat: NL Teeth, Lips, Gums, Mucous Membranes Moist Neck: NL Appearance and Movements; NL JVP, Trachea Midline Respiratory: Symmetrical Chest Expansion and Respiratory Effort, Clear to Auscultation Cardiovascular: NL Sounds; No Murmurs; No JVD, RRR Abdominal: NL Sounds; No Tenderness; No Distention Lymphatic: No Cervical Adenopathy Extremities: No Edema, No Clubbing, Cyanosis Skin: - - left hip incision -dressings not removed Neurological: Alert and Oriented x 3, NL Muscle Strength and Tone Result Diagrams: 07/13/18 05:01 07/13/18 05:01 Microbiology and Other Data: Microbiology 07/04/18 00:00 Gram Stain - Final Hip Left 07/03/18 23:11 Gram Stain - Final Sputum Assess/Plan/Problems-Billing Assessment: 87 yo F h/o hemiarthroplasty in 04/2018, afib, cad, ckd pw weakness found with hyponatremia, SIM and concern for underlying thigh abscess with stay cb wide complex tachycardia concerning for VT. Now s/p wound washout. - Patient Problems (1) Abscess Comment: s/p washout improving plan for 7 days total of vanc if approved for PMRU (today is day 6) ,f not, ID recommends that she can continue the 7 day course on PO doxycycline (2) Acute kidney failure Comment: resolved after IVF (3) Atrial fibrillation Comment: continue eliquis continue metoprolol and amiodarone (4) Hypertension Comment: restarted aldactone 07/06 Lasix metoprolol increased (5) Hyponatremia Comment: Improved with fluid challenge - supports hypovolemic hyponatremia Holding additional fluids (6) VT (ventricular tachycardia) Comment: Continue home amiodarone dosing (7) CKD (chronic kidney disease) stage 3, GFR 30-59 ml/min Comment: Creat around baseline (8) Coronary artery disease Comment: Continue ASA, metoprolol and lipitor. No c/o CP or concerning signs/ symptoms. (9) Urinary retention Comment: Has musa from previous admission (retention) with klebsiella UTI this admission and was effectively treated with cefepime Musa discontinued. No U. retention problems as per d/w RN. (10) Acute respiratory failure with hypoxia Comment: related to acutely decompensated HF now resolved Continue IS and flutter valve Appropiately diuresed Taper prednisone to off today (11) DVT prophylaxis Comment: apixaban Status and Disposition: Inpatient, awaiting PMRU evaluation
[2018-07-14] MEDS: Atorvastatin* 40 MG TAB PO SCH (16:56)
[2018-07-15] MEDS: Levothyroxine TAB* 25 MCG TAB PO SCH (06:01)
[2018-07-15] MEDS: Spironolactone TAB* 25 MG PO SCH (09:00)
[2018-07-15] MEDS: Metoprolol Tartrate TAB* 25 MG PO SCH ×2 (09:00→22:56)
[2018-07-15] MEDS: Nystatin TOP POWDER* 15 GM BTL TOPICAL SCH ×2 (09:00→22:56)
[2018-07-15] MEDS: Furosemide TAB* 40 MG PO SCH (09:00)
[2018-07-15] MEDS: Senna TAB PO SCH ×2 (09:01→23:03)
[2018-07-15] MEDS: Apixaban* 2.5 MG TAB PO SCH ×2 (09:01→22:56)
[2018-07-15] MEDS: DOXYcycline CAP(*) 100 MG PO SCH ×2 (09:01→22:56)
[2018-07-15] MEDS: Aspirin 81 mg CHEW TAB* 81 MG TAB.CHEW PO SCH (09:02)
[2018-07-15] MEDS: Docusate CAP* 100 MG PO SCH ×2 (09:02→22:56)
[2018-07-15] MEDS: Ferrous Sulfate TAB* 325 MG PO SCH (09:02)
[2018-07-15] MEDS: Folic Acid TAB* 1 MG PO SCH (09:02)
[2018-07-15] MEDS: Amiodarone TAB* 200 MG PO SCH (09:02)
--- NOTE | 2018-07-15 15:02 | PN ---
Subjective Date of Service: 07/15/18 Interval History: Ms. Sherwood is feeling well this morning. She offers no complaints. Reports sleeping well. Appetite is good. Denies CP, SOB, N/V. Anxious to go to rehab so that she is eventually able to return home. No concerns from nursing. Family History: Unchanged from Admission Social History: Unchanged from Admission Past Medical History: Unchanged from Admission Objective Active Medications: Acetaminophen (Tylenol Tab*) 650 mg PO Q4H PRN FEVER/PAIN Albuterol/Ipratropium (Duoneb (Albuterol 2.5 Mg/Ipratropium 0.5 Mg)) 1 neb INH Q4H PRN SOB/WHEEZING Amiodarone HCl (Cordarone Tab*) 200 mg PO EVERY OTHER DAY [facility] Amiodarone HCl (Cordarone Tab*) 300 mg PO EVERY OTHER DAY [facility] Apixaban (Eliquis*) 2.5 mg PO BID [facility] Aspirin (Aspirin 81 Mg Chew Tab*) 81 mg PO DAILY [facility] Atorvastatin Calcium (Lipitor*) 40 mg PO 1700 [facility] Docusate Sodium (Colace Cap*) 100 mg PO BID [facility] Doxycycline Hyclate (Vibramycin Cap(*)) 100 mg PO BID [facility] Ferrous Sulfate (Ferrous Sulfate Tab*) 325 mg PO DAILY [facility] Folic Acid (Folvite Tab*) 1 mg PO DAILY [facility] Furosemide (Lasix Tab*) 40 mg PO DAILY [facility] Hydralazine HCl (Apresoline Iv*) 10 mg IV SLOW PU Q4H PRN SYSTOLIC BP GREATER THAN: Levothyroxine Sodium (Synthroid Tab*) 12.5 mcg PO DAILY@0600 [facility] Magnesium Hydroxide (Milk Of Magnesia Liq*) 30 ml PO Q6H PRN CONSTIPATION Metoprolol Tartrate (Lopressor Tab*) 25 mg PO BID [facility] Nystatin (Nystatin Top Powder*) 1 applic TOPICAL BID [facility] Ondansetron HCl (Zofran Inj*) 4 mg IV Q4H PRN NAUSEA/VOMITING Oxycodone HCl (Roxycodone Tab*) 5 mg PO Q6H PRN PAIN - MILD TO MODERATE Senna (Senokot Tab*) 1 tab PO BID [facility] Spironolactone (Aldactone Tab*) 25 mg PO DAILY [facility] Vital Signs - 8 hr 07/15/18 07/15/18 07/15/18 07:33 09:00 11:43 Temperature 98.0 F 97.9 F Pulse Rate 58 56 Respiratory 15 18 15 Rate Blood Pressure 163/52 142/47 (mmHg) O2 Sat by Pulse 99 99 100 Oximetry Oxygen Devices in Use Now: None Appearance: Elderly female laying in bed in NAD Eyes: No Scleral Icterus Ears/Nose/Mouth/Throat: Mucous Membranes Moist Neck: NL Appearance and Movements; NL JVP, Trachea Midline Respiratory: Symmetrical Chest Expansion and Respiratory Effort, Clear to Auscultation Cardiovascular: NL Sounds; No Murmurs; No JVD Abdominal: NL Sounds; No Tenderness; No Distention Extremities: No Edema Neurological: Alert and Oriented x 3 Lines/Tubes/Other Access: Clean, Dry and Intact Peripheral IV Nutrition: Taking PO's Result Diagrams: 07/13/18 05:01 07/13/18 05:01 Assess/Plan/Problems-Billing Assessment: Ms. Sherwood is an 87 yo F with PMH of hemiarthroplasty in 04/2018, afib, cad, ckd ; who presented to the ED with weakness and was found to have hyponatremia, SIM and concern for underlying thigh abscess, now s/p washout; stay complicated by wide complex tachycardia concerning for VT. - Patient Problems (1) Surgical wound infection Code(s): T81.49XA - INFECTION FOLLOWING A PROCEDURE, OTHER SURGICAL SITE, INIT Comment: - Left hip hemiarthroplasty in April 2018, found to have abscess at surgical site - POD #7 washout and I&D - Initial culture growing Corynebacterium - Appreciate ID consult; recommends change to 7 day course of doxy - Completed 7 day course of vanco - Continue doxycycline (2) Acute respiratory failure with hypoxia Code(s): J96.01 - ACUTE RESPIRATORY FAILURE WITH HYPOXIA Comment: - Resolved - Secondary to acutely decompensated HF; approriately diuresed - Continue IS and flutter valve - Completed short course of prednisone (3) UTI (urinary tract infection) Comment: - Catheter related, present on admission - Culture growing Klebsiella - Completed course of cefepime (4) Acute on chronic diastolic congestive heart failure Code(s): I50.33 - ACUTE ON CHRONIC DIASTOLIC (CONGESTIVE) HEART FAILURE Comment: - Acutely decompensated earlier this admission while in ICU, now resolved - Echo shows EF 55-60% - Continue metoprolol, furosemide, spironolactone (5) Acute on chronic kidney failure Code(s): N17.9 - ACUTE KIDNEY FAILURE, UNSPECIFIED; N18.9 - CHRONIC KIDNEY DISEASE, UNSPECIFIED Comment: - Resolved - Baseline stage 3 (6) VT (ventricular tachycardia) Code(s): I47.2 - VENTRICULAR TACHYCARDIA Comment: - Noted earlier this admission, now resolved - Previously consulted by Cardiology - Continue amiodarone (7) Urinary retention Code(s): R33.9 - RETENTION OF URINE, UNSPECIFIED Comment: - Jerez successfully removed - Jerez from previous admission (acute retention) (8) Hyponatremia Code(s): E87.1 - HYPO-OSMOLALITY AND HYPONATREMIA Comment: - Resolved with fluid challenge - Secondary to hypovolemia (9) Atrial fibrillation Code(s): I48.91 - UNSPECIFIED ATRIAL FIBRILLATION Comment: - Continue Eliquis, metoprolol, amiodarone (10) Coronary artery disease Code(s): I25.10 - ATHSCL HEART DISEASE OF [place] CORONARY ARTERY W/O ANG PCTRS Comment: - Continue aspirin, metoprolol, atorvastatin (11) Hypothyroidism Code(s): E03.9 - HYPOTHYROIDISM, UNSPECIFIED Comment: - Continue levothyroxine (12) DVT prophylaxis Comment: - Eliquis (13) Full code status Code(s): Z78.9 - OTHER SPECIFIED HEALTH STATUS Comment: Status and Disposition: Inpatient. Pending insurance approval for PMRU placement. Attending: Olga Lidia Ewing
[2018-07-15] MEDS: Atorvastatin* 40 MG TAB PO SCH (17:44)
[2018-07-16] MEDS: Levothyroxine TAB* 25 MCG TAB PO SCH (05:23)
[2018-07-16] MEDS: Nystatin TOP POWDER* 15 GM BTL TOPICAL SCH (08:24)
[2018-07-16] MEDS: Docusate CAP* 100 MG PO SCH (08:29)
[2018-07-16] MEDS: Furosemide TAB* 40 MG PO SCH (08:29)
[2018-07-16] MEDS: Folic Acid TAB* 1 MG PO SCH (08:29)
[2018-07-16] MEDS: Apixaban* 2.5 MG TAB PO SCH (08:29)
[2018-07-16] MEDS: Metoprolol Tartrate TAB* 25 MG PO SCH (08:29)
[2018-07-16] MEDS: DOXYcycline CAP(*) 100 MG PO SCH (08:29)
[2018-07-16] MEDS: Ferrous Sulfate TAB* 325 MG PO SCH (08:29)
[2018-07-16] MEDS: Senna TAB PO SCH (08:30)
[2018-07-16] MEDS: Amiodarone TAB* 200 MG PO SCH (08:30)
[2018-07-16] MEDS: Spironolactone TAB* 25 MG PO SCH (08:30)
[2018-07-16] MEDS: Aspirin 81 mg CHEW TAB* 81 MG TAB.CHEW PO SCH (08:30)
[2018-07-16 16:49] VITALS: BP 158/54
[2018-07-16] MEDS: Atorvastatin* 40 MG TAB PO SCH (16:49)
[2018-07-16] MEDS: Acetaminophen TAB* 325 MG PO PRN (16:49)
--- NOTE | 2018-07-16 20:00 | DS ---
CC: Dr. Susy Quevedo; Dr. Aaron Johnson; Erin Baum NP; Dr. Talib Cisneros* DISCHARGE SUMMARY: DATE OF ADMISSION: 07/03/18 DATE OF DISCHARGE: 07/16/18 PRIMARY CARE PROVIDER: Dr. Susy Quevedo. ORTHOPEDIC SURGEON: Dr. Aaron Johnson. FORESTRY AND WILDLIFE MANAGER: Dr. Talib Cisneros. ATTENDING PHYSICIAN: Dr. Olga Lidia Ewing* (dictated by Yoan Villafuerte NP) PRIMARY DIAGNOSES: 1. Left hip surgical wound abscess. 2. Acute hypoxic respiratory failure. 3. Urinary tract infection, Klebsiella pneumoniae. 4. Acute on chronic diastolic congestive heart failure. 5. Acute on chronic kidney failure, baseline stage 3. 6. Ventricular tachycardia. 7. Acute urinary retention. 8. Hyponatremia. SECONDARY DIAGNOSES: 1. Atrial fibrillation. 2. Coronary artery disease. 3. Hypothyroidism. STUDIES WHILE IN THE HOSPITAL: 1. EKG on 07/03/18 shows normal sinus rhythm with a rate of 69, QTc 481. There do not appear to be any ischemic changes, and I will note that this EKG is of poor quality due to artifact. 2. Left lower extremity ultrasound 07/03/18 reads as there is a complex mass or fluid collection in the superficial soft tissues in this region which measures approximately 1.5 cm diameter and 7.5 cm length with minimal peripheral vascularity. Possibilities include evolving hematoma versus less likely abscess. 3. Chest x-ray on 07/05/18 reads as COPD, cardiomegaly, small left pleural effusion versus chronic pleural thickening. 4. Chest x-ray on 07/06/18 reads as cardiomegaly with pulmonary vascular congestion. 5. Transthoracic echocardiogram on 07/07/18 reads as left ventricle: Systolic function is normal. The estimated ejection fraction is 55% to 60%. Wall motion is normal. There are no regional wall motion abnormalities. Right ventricle: The cavity space is normal. Wall thickness is mildly to moderately increased. Mitral valve: There is mild regurgitation. Aortic valve: There is trivial regurgitation. The mean systolic gradient is 7 mmHg. Normal function. Tricuspid valve: There is mild to moderate regurgitation. Pulmonary arteries: Systolic pressure is mildly to moderately increased. Impression: Unchanged from the study of 05/05/18. CONSULTATIONS WHILE IN THE HOSPITAL: 1. Dr. Johnson from Orthopedics on 07/05/18. 2. Dr. Luz from Cardiology on 07/06/18. 3. Erin Baum NP from Infectious Disease on 07/08/18. PROCEDURES WHILE IN THE HOSPITAL: Incision, irrigation, debridement and drainage, open wounds left hip subcutaneous on 07/08/[address] Johnson. HISTORY OF PRESENT ILLNESS AND HOSPITAL COURSE: Ms. Sherwood is an 87-year-old female with past medical history of recent left hip fracture status post repair and atrial fibrillation, NSTEMI, aortic stenosis, hypertension, chronic kidney disease, hyperlipidemia, diastolic congestive heart failure, and tachybrady syndrome, who presented on 07/03/18 with complaints of weakness. Please see the history and physical by Dr. Weems for complete summary of the events leading up to this hospitalization. In short, the patient has had 2 recent admissions to this facility, the first was from 05/04/18 to 05/14/18 for a hip fracture which was surgically repaired by Dr. Johnson and the second from to 06/10/18 which was for atrial fibrillation with rapid ventricular response requiring ICU admission. The patient had been at [facility] and was discharged on 07/01/18. She was noted to develop a productive cough around her discharge from rehab and generally complained of feeling weak and dizzy and so presented to the emergency room. In the emergency room, the patient had imaging as noted above which was remarkable for a fluid collection in the left hip which at that time was presumed to be an abscess due to the presence of purulent drainage from the surgical site. The patient did not meet sepsis criteria. She additionally was noted to have mild leukocytosis with a white blood count of 13.1, and normocytic normochromic anemia consistent with her baseline. She was noted to be severely hyponatremic with a sodium of 117 and because of the concern for infection and her hyponatremia, she was admitted by the hospitalist service. The patient's hyponatremia was determined to be secondary to hypovolemia as it resolved with a fluid challenge though there was slow improvement. Most recent sodium as of 07/13/18 was 134. The patient's hip wound was cultured and she was started on cefepime and vanco. Orthopedics was consulted and Dr. Johnson saw the patient on 07/05/18. At that point, he recommended taking the patient to the operating room for irrigation and debridement of the left hip wound, although at that time taking her to the OR was not feasible due to her hyponatremia and the plan was made to hold the patient's Eliquis at that point. Around that time, the patient was also noted to have a CHF exacerbation due to IV fluids received for hyponatremia and the fact that her Lasix had been held on admission. Ultimately, the heart failure resolved with reinitiation of Lasix. She was noted to have an acute kidney injury secondary to hypovolemia which also improved with IV fluids. On 07/06/18, the patient was noted to have 2 episodes of a wide complex tachyarrhythmia, both episodes lasting greater than 30 seconds. At that point, the patient was transferred to ICU and given IV metoprolol and loaded with amiodarone. She was seen in consultation by Dr. Luz from Cardiology who recommended at that point continuing amiodarone and holding off on taking the patient to the OR until she was more stable from a cardiac standpoint. Ultimately, the patient was taken to the OR on 07/08/18 for an I and D of her left hip wound. Initial wound culture grew Corynebacterium striatum for which the patient was kept on vancomycin. The patient was also noted to have a urinary tract infection with the urine culture growing Klebsiella pneumoniae which was treated with cefepime. The patient was seen in consultation by Erin Baum NP from Infectious Disease who recommended continuing vancomycin while in the hospital for a total of 7 days and then discharging the patient on a 7-day course of p.o. doxy. I will note that the patient came into the hospital with a Jerez catheter which had been placed during a previous admission due to acute urinary retention and was unable to be successfully removed. This catheter was successfully removed during this admission and his acute urinary retention has resolved. The patient completed 7 days of vancomycin and was started on p.o. doxy on . She at that point has been stable for discharge for few days, though we were attempting to place the patient in acute rehab here in the hospital. Ultimately, as of today, the patient's insurance company has denied the request for acute rehab, although did approve subacute rehab. I spoke with the patient' s daughter who felt as though she would rather take the patient home than pursuing subacute rehab. As of today, the patient reports feeling well. She offers no complaints. She has no focal neurological deficits. On exam, heart has a regular rate and rhythm with no murmurs, rubs or gallops. Lung sounds are clear to auscultation without rhonchi, wheezes, or rubs. There is a dressing intact to the left hip. Ms. Sherwood is stable for discharge today. Vital signs are as follows: Temp 98.2 , heart rate 51, respiratory rate 14, oxygen saturation 100% on room air, blood pressure 121/35. DISCHARGE MEDICATIONS: New medications: 1. Doxycycline 100 mg p.o. b.i.d. x6 days. 2. Metoprolol tartrate 25 mg p.o. b.i.d. Changed home medications: Eliquis 2.5 mg p.o. b.i.d. (previously was 5 mg b.i.d.) Continued medications: 1. Acetaminophen 650 mg p.o. q.4 hours p.r.n. for fever or pain. 2. Amiodarone 200 mg p.o. every other day alternating with 300 mg p.o. every other day. 3. Aspirin 81 mg p.o. daily. 4. Atorvastatin 40 mg p.o. daily. 5. Calcium 600 mg, vitamin D3 400 one tab p.o. b.i.d. 6. Vitamin B12 1000 mcg p.o. daily. 7. Docusate 100 mg p.o. t.i.d. 8. Ferrous sulfate 325 mg p.o. daily. 9. Folic acid 1 mg p.o. daily. 10. Furosemide 40 mg p.o. daily. 11. Levothyroxine 12.5 mcg p.o. daily. 12. Milk of mag 30 mL p.o. q.72 hours p.r.n. constipation. 13. Multivitamin 1 tab p.o. daily. 14. Nitro 0.4 mg sublingual q.5 minutes p.r.n. angina. 15. Nystatin powder 1 application topically t.i.d. 16. MiraLAX 17 g p.o. daily. 17. Potassium chloride 20 mEq p.o. daily. 18. Spironolactone 25 mg p.o. daily. Discontinued medications: Metoprolol succinate. DISCHARGE PLAN: Ms. Sherwood will be discharged home with her daughter. Activity will be as tolerated. Diet should be heart healthy. Medications are noted above. The patient has been prescribed a 6-day course of doxycycline to complete a total of 7 days of doxycycline per Infectious Disease recommendations. She has been changed over to metoprolol tartrate from metoprolol succinate while she was here. She may ultimately need to be changed back to succinate though I will defer this to her job training specialist. She additionally has been placed on renal dosing of Eliquis due to her age and kidney function. She can continue her other usual medications as noted above and I have not made any further changes. Per Orthopedics, sae to the left hip will need to stay in for 3 weeks postoperatively. She will need to follow up with Dr. Johnson this week for monitoring of her wound. She should additionally follow up with her job training specialist due to the ventricular tachycardia that she has here in the hospital and changes in her metoprolol. I would recommend that happen within the next few weeks. She additionally should follow up with her primary care provider in the next 4 to 7 days. The patient has been instructed to return to the emergency room or nearest hospital for any worsening of symptoms, shortness of breath, lightheadedness, dizziness, chest discomfort, high fevers, chills, night sweats, loss of consciousness or any worrisome signs or symptoms. DISCHARGE CONDITION: Stable. DISCHARGE DISPOSITION: Home. This is a summarized report of a complex medical history and hospital stay. For further details, please see the entire medical record. TIME SPENT: Approximately 60 minutes was spent on this discharge. YOAN VILLAFUERTE, FAMILY SUPPORT COORDINATOR [id number]/[facility] #: [id number] DONNA
== END 2018-07-16 17:30 | disposition home or self-care (01) | DRG 856 ==
LOC: ED 18:14 → MED 21:44 → ICU 07-06 08:56 → SSU 07-09 10:25
PROVIDERS: ADMIT Pediatrics; ATTEND Hospitalist
PROC: 0JBM0ZZ Excision of Left Upper Leg Subcutaneous Tissue and Fascia, Open Approach (ICD-10-PCS; principal; 2018-07-08 17:12)
DX: T81.49XA Infection following a procedure, other surgical site, initial encounter (principal); J96.01 Acute respiratory failure with hypoxia; I50.33 Acute on chronic diastolic (congestive) heart failure; E87.1 Hypo-osmolality and hyponatremia; T83.511A Infection and inflammatory reaction due to indwelling urethral catheter, initial encounter; I13.0 Hypertensive heart and chronic kidney disease with heart failure and stage 1 through stage 4 chronic kidney disease, or unspecified chronic kidney disease; N17.9 Acute kidney failure, unspecified; N39.0 Urinary tract infection, site not specified; I47.2 Ventricular tachycardia; L02.416 Cutaneous abscess of left lower limb; I25.10 Atherosclerotic heart disease of native coronary artery without angina pectoris; E78.00 Pure hypercholesterolemia, unspecified; I73.9 Peripheral vascular disease, unspecified; K58.9 Irritable bowel syndrome, unspecified; M19.90 Unspecified osteoarthritis, unspecified site; H04.129 Dry eye syndrome of unspecified lacrimal gland; Z96.1 Presence of intraocular lens; R40.2142 Coma scale, eyes open, spontaneous, at arrival to emergency department; R40.2362 Coma scale, best motor response, obeys commands, at arrival to emergency department; R40.2252 Coma scale, best verbal response, oriented, at arrival to emergency department; D50.9 Iron deficiency anemia, unspecified; E78.5 Hyperlipidemia, unspecified; E03.9 Hypothyroidism, unspecified; D26.9 Other benign neoplasm of uterus, unspecified; E66.01 Morbid (severe) obesity due to excess calories; J44.9 Chronic obstructive pulmonary disease, unspecified; I08.1 Rheumatic disorders of both mitral and tricuspid valves; I48.0 Paroxysmal atrial fibrillation; I27.20 Pulmonary hypertension, unspecified; I77.819 Aortic ectasia, unspecified site; B96.1 Klebsiella pneumoniae [K. pneumoniae] as the cause of diseases classified elsewhere; Y69 Unspecified misadventure during surgical and medical care; Z96.642 Presence of left artificial hip joint; E86.1 Hypovolemia; B96.89 Other specified bacterial agents as the cause of diseases classified elsewhere; K59.00 Constipation, unspecified; N18.3 Chronic kidney disease, stage 3 (moderate); R33.9 Retention of urine, unspecified; Z98.42 Cataract extraction status, left eye; Z68.37 Body mass index [BMI] 37.0-37.9, adult; Z95.2 Presence of prosthetic heart valve; I25.2 Old myocardial infarction; Z98.41 Cataract extraction status, right eye; Z82.49 Family history of ischemic heart disease and other diseases of the circulatory system; Y92.9 Unspecified place or not applicable; Z79.82 Long term (current) use of aspirin
CPT/HCPCS: 36415; 71045; 71046; 80048; 80053; 80202; 81003; 81015; 82565; 82570; 83605; 83735; 83880; 83930; 83935; 84300; 84443; 84520; 85025; 85652; 86140; 86850; 86900; 86901; 87040; 87070; 87073; 87077; 87086; 87102; 87116; 87186; 87205; 87206; 88304; 93005; 93306; 94640; 99285; A9270-GY; G8987-GO-CL; G8988-GO-CK; J0282; J0360; J0692; J1644; J1650; J1940; J2250; J2704; J3010; J3370; J3475; J3490; J7512

== ENCOUNTER 2018-08-05 13:41 | Inpatient (IN) | payer MEDICARE ==
--- OUTSIDE RECORDS SUMMARY | 2018-08-05 13:55 | XMS REPORT | Continuity of Care Document ---
:1930 External Reference #:[id number] Author Name Sarahi Acevedo Care Team Providers Name Role Phone Susy Quevedo MD Primary Care Physician Unavailable Payers Date Identification Numbers Payment Provider Subscriber Policy Number: [id number] [employer] Veronica Sherwood Group Number: [id number] [address] PayID: [id number] [place] [address] Effective: 1995 Policy Number: [id number] Medicare Elizabeth Churey Expires: 2017 PayID: [id number] [address] [place] [address] Problems Active Problems Provider Date Aortic valve [...] Patient has never smoked Smoking Status Reviewed: 07/25/18 Patient has never smoked Exercise Type/Frequency Exercises rarely Currently Active Patient is currently not sexually active Allergies, Adverse Reactions, Alerts Description No Known Drug Allergies Medications Active Medications SIG Qnty Indications Ordering Date Provider Eliquis 1 tab po twice Unknown 07/16/2018 2.5mg Tablets daily Nitroglycerin 1 sl q5mins x3 as 25tabs Talib Medrano 10/17/2016 0.4mg needed for chest Brand M.DCasey Tablets Sub pain Potassium Chloride ER 1 tabs by mouth 90tabs Talib Medrano 06/04/2012 daily Brand, M.DCasey 10Meq Tablets ER Amiodarone HCL every other day Unknown 200mg alternating with Tablets 300 mg every other day Glycerin as needed Unknown Nystatin powder 1 Unknown application three times daily Acetaminophen 2 every 4 hours as Unknown 325mg needed for pain Tablets Metoprolol Tartrate 1 by mouth twice a Unknown day ( [facility] 25mg Tablets discharge 07/16/18) Levothyroxine Sodium 1 by mouth every 30tabs Unknown day ( Per 25mcg Tablets discharge 07/16/18 ) Atorvastatin Calcium 1 by mouth every Unknown day 40mg Tablets Cyanocobalamin Vitamin b 12 1 po Unknown daily Calcium 600 + D 1 tablet po twice 60tabs Unknown daily [id number]-Iria Tablets Colace 1 po tid 180caps Unknown 100mg Capsules Folic Acid 1 po qd 90tabs Unknown 1mg Tablets Ferrous Sulfate 1 po qd 30tabs Unknown 325(65Fe) mg Tablets One Daily For Women 1 po qd Unknown 50+A Dvanced Women 50 Tablets Aspirin 1 po qd Unknown 81mg Tablets Furosemide 1 tablet po daily Stevanovic, 40mg Tablets morning ( MD Susy discharge 07/16/18 [facility]) History Medications Keflex take 1 tab by mouth 21caps Aaron F 07/03/2018 - 500mg Capsules 3 times a day x 7 MD Alex Unknown days until finished. Magnesium Oxide -MG 1 tab by mouth 2x 60caps I48.91 Ashley Collins 05/30/2018 - Supplement daily Juan N.P. Unknown 400mg Capsules Suprep Bowel Prep Kit take according to 1units David Harris 01/10/2018 - your physician's MD Mickey 04/24/2018 17.5-3.13-1.6GM/177ML instructions the Solution day before your procedure. split the dose as directed. Magnesium Citrate Drink the entire 296ml David Harris 01/10/2018 - bottle after dinner MD Mickey 04/24/2018 1.745GM/30ML Solution two days before your procedure. Amiodarone HCL 1 by mouth every Talib D. 05/29/2017 - 200mg day Sandoval Cisneros Unknown Tablets Clopidogrel Bisulfate 1 by mouth every 180tabs Talib DCasey 10/17/2016 - day Sandoval Cisneros 04/09/2017 75mg Tablets Eliquis 1 by mouth twice a 180tabs Talib DCasey 10/17/2016 - 5mg Tablets day Sandoval Cisneros 07/24/2018 Carvedilol 1 po bid 180tabs Talib DCasey 06/04/2012 - 3.125mg Sandoval Cisneros 07/24/2018 Tablets Amlodipine Besylate 1 po qd 90tabs Talib DCasey 06/04/2012 - 5mg Azeem CisnerosDCasey 03/12/2013 Tablets Warfarin Sodium 1-2 po daily as 180tabs Talib DCasey 04/28/2012 - 2mg directed Sandoval Cisneros 10/17/2016 Tablets Ketoconazole 1 application daily 30gm Sae, 07/22/2009 - 2% Cream Sandoval Jain 03/12/2013 Anusol-HC apply tid prn 30grams Sae 04/06/2009 - 2.5% Cream Sandoval Jain 03/18/2013 Benefiber 1 table spoon in 1 1jar 565.0 Sae, 03/29/2009 - Powder liter of water bid Sandoval Jain 03/11/2013 Analpram-HC 1 application tid 1tube 565.0 Sae, 03/29/2009 - 1-1% Cream Sandoval Jain 04/06/2009 Doxycycline 100mg 1 po twice Unknown - Monohydrate daily 07/24/2018 Amlodipine Besylate 1 by mouth every Unknown - 5mg day 05/30/2018 Tablets Oxycodone-Acetaminoph 1 tabs by mouth Unknown - en every 4-6 hours as Unknown 5-325mg Tablets needed for pain Amiodarone HCL 2 by mouth every Unknown - 100mg day 05/29/2017 Tablets Vitamin B-12 2 by mouth every 30tabs Unknown - 500mcg day 04/24/2018 Tablets Meloxicam 1 qd prn pain 30tabs Unknown - 7.5mg Tablets 11/27/2014 Cyanocobalamin 1.0 cc im q month 25ml Unknown - 01/13/2014 1000mcg/ML Solution Amiodarone HCL 1/2 tab po qd 30tabs Unknown - 200mg 04/09/2017 Tablets Amlodipine Besylate 2 po qd (no longer Sae, - taking) MD Susy 04/09/2017 2.5mg Tablets Asa 1 po qd 100units Sae, - 325mg Azeem JainDCasey 03/12/2013 Niaspan ER 1 tablet po qday 90tabs Sae, - 500mg Azeem JainDCasey 10/13/2015 Tablets ER Simvastatin 1 po qhs 90tabs Sae, - 40mg Azeem JainDCasey 05/27/2018 Tablets Propranolol ER 1 po qday 90tabs Sae, - 80mg Azeem JainDCasey 03/12/2013 Tablets Lisinopril 1 po qd 90tabs Sae, - 5mg Tablets Sandoval Jain 01/13/2014 Chlorothiazide 1 po qday 90tabs Sae, - 500mg Sandoval Jain 03/12/2013 Tablets Vital Signs Date Vital Result Comment 07/25/2018 12:17pm Height 66 inches 5'6" Heart Rate 56 /min BP Systolic Sitting 140 mmHg Lue lg cuff BP Diastolic Sitting 60 mmHg Lue lg cuff BP Systolic Standing 130 mmHg Lue lg cuff BP Diastolic Standing 72 mmHg Lue lg cuff Respiratory Rate 16 /min Ejection Fraction 55-60% date 07/07/18 ECHO 07/22/2018 1:27pm Height 66 inches 5'6" Heart Rate 64 /min BP Systolic Sitting 128 mmHg BP Diastolic Sitting 80 mmHg Pain Level 0 07/03/2018 10:12am Height 66 inches 5'6" Heart [...] Result H/L Range Note Laboratory test 02/21/2018 [facility] Surgical SEE RESULT [address] [place] [address] [phone] Laboratory test 12/28/2014 [facility] Inr/Protime 3.66 High 0.78-1.[address] [place] [address] [phone] CBC Auto Diff 12/28/2014 [facility] White Blood 4.9 10^3/uL N 4.8-10.[address] [place] [address] [phone] Red Blood Count 3.83 10^6/uL Low 4.0-5.4 [...] % 0 N Comp Metabolic Panel 12/28/2014 [facility] Sodium 133 mmol/L N 133-145 [address] [place] [address] [phone] Potassium 3.6 mmol/L N 3.5-5.0 Chloride 98 [...] 40.1 N >60 2 Laboratory test 12/28/2014 [facility] Magnesium 1.8 mg/dL Low 1.9-2.7 finding [address] [place] [address] [phone] Troponin-I (TnI) 0.00 ng/mL N <0.03 3 TSH (Thyroid Stim Horm) 2.86 ?IU/mL N 0.34-5.60 Basic Metabolic Panel 01/25/2014 [facility] Sodium 138 mmol/L N 133-145 4 [address] [place] [address] [phone] Potassium 2.7 mmol/L Low 3.5-5.0 5 Chloride 97 mmol/L Low 101-111 Co2 Carbon Dioxide 30 mmol/L N 22-32 Anion Gap 11 mmol/L N 2-11 Glucose 136 mg/dL High 70-100 Blood Urea Nitrogen 27 mg/dL High 6-24 Creatinine 1.68 mg/dL High 0.51-0.95 BUN/Creatinine Ratio 16.1 N 8-20 Calcium 8.8 mg/dL N 8.6-10.3 Egfr Non- 29.1 N >60 Egfr 37.4 N >60 6 Inr/Protime 01/25/2014 [facility] Inr 2.32 High 0.85-1.06 [place] [address] [phone] CBC No Diff 01/25/2014 [facility] White Blood 5.3 10^3/uL N 4.8-10.8 [place] [address] [phone] Red Blood Count 3.37 10^6/uL Low 4.0-5.4 Hemoglobin 10.5 g/dL Low 12.0-16.0 Hematocrit 33 % Low 35-47 Mean Corpuscular Volume 97 fL N 80-97 Mean Corpuscular Hemoglobin 31 pg N 27-31 Mean Corpuscular HGB Conc 32 g/dL N 31-36 Red Cell Distribution Width 15 % N 10.5-15 Platelet Count 131 10^3/uL Low 150-450 Mean Platelet Volume 7 um3 Low 7.4-10.4 Laboratory test 01/25/2014 [facility] TSH (Thyroid 2.83 N 0.34 -5.60 finding [facility] Stimulating IU/[place] [address] Horm) [phone] Laboratory test 12/07/2013 [facility] Inr 1.89 High 0.85-1.06 [place] [address] [phone] Laboratory test 08/24/2013 [facility] Inr 1.99 High 0.85-1.06 finding [place], [place] [address] [phone] Laboratory test 07/27/2013 [facility] Inr 1.96 High 0.85-1.06 finding [place], [place] [address] [phone] Laboratory test 07/06/2013 [facility] Inr 1.82 High 0.85-1.06 finding [place], [place] [address] [phone] Laboratory test 06/08/2013 [facility] Inr 3.57 High 0.85-1.06 finding [address] [place] [address] [phone] Laboratory test 05/25/2013 [facility] Inr 1.63 High 0.85-1.06 [place] [address] [phone] Laboratory test 04/27/2013 [facility] Inr 2.48 High 0.85-1.06 [place] [address] [phone] Laboratory test 03/30/2013 [facility] Inr 2.02 High 0.85-1.06 [place] [address] [phone] Inr/Protime 03/02/2013 Inr 2.05 High 0.85-1.06 7 Laboratory test 02/02/2013 [facility] Inr 2.31 High 0.85-1.06 8 [place] [address] [phone] Laboratory test 01/05/2013 [facility] Inr 2.30 High 0.87-0.97 [place] [address] [phone] Laboratory test 12/08/2012 [facility] Inr 2.67 High 0.87-0.97 [place] [address] [phone] Laboratory test 11/11/2012 [facility] Inr 2.42 High 0.87-0.97 [place] [address] [phone] Laboratory test 10/20/2012 [facility] Inr 2.22 High 0.87-0.97 [place] [address] [phone] Laboratory test 10/06/2012 [facility] Inr 1.82 High 0.87-0.97 [place] [address] [phone] Laboratory test 09/22/2012 [facility] Inr 1.69 High 0.87-0.97 finding [place], [place] [address] [phone] Laboratory test 08/25/2012 [facility] Inr 1.89 High 0.87-0.[address] [place] [address] [phone] Laboratory test 07/28/2012 [facility] Inr 2.25 High 0.87-0.[address] [place] [address] [phone] Laboratory test 06/30/2012 [facility] Inr 2.30 High 0.87-0.[address] [place] [address] [phone] Laboratory test 06/09/2012 [facility] Inr 1.83 High 0.87-0.[address] [place] [address] [phone] CBC With Manual 05/01/2010 [facility] White Blood 5.7 CUMM 4.8-10.[address] [place] [address] [phone] Red Cell Count 3.29 CUMM Low 4.2-5.4 [...] 3.5 Anisocytosis SLIGHT Ovalocytes FEW Laboratory 05/01/2010 [facility] Methylmalonic 0.43 Abnormal < =0.40 [address] Acid nmol/[place] [address] [phone] CBC 11/07/2009 [facility] White Blood 7.1 CUMM 4.8-10.8 W/Electronic [address] [place] [address] [phone] Red Cell Count 3.43 CUMM Low 4.2-5.4 [...] 0 0-0.2 Iron And Tibc Serum 11/07/2009 [facility] Iron Total 72 g/dL 28-170 [address] [place] [address] [phone] Unsaturated Iron Binding 270 g/dL Total Iron Binding Capacity 342 g/dL 250-450 % Iron Saturation 21 % 15-55 Vitamin D,25 11/07/2009 [facility] 25-Hydroxy Vitamin <4.0 ng/ mL () Hydroxy [address] [place] D2 [place] [address] [phone] 25-Hydroxy Vitamin D3 27 ng/mL () 25-Hydroxy Vitamin D Total 27 ng/mL () 11 Vitamin D 1,25 11/07/2009 [facility] Vitamin D, 1,25 51 pg/mL 18-[address] Dihydroxy D,2 [place] [address] [phone] Vitamin B12 11/07/2009 [facility] Vitamin B12 300 pg/mL 180- 9[address] [place] [address] [phone] Folic Acid 14.1 NG/ML 2-16 Laboratory test 11/07/2009 [facility] Ferritin 55 NG/ML 11.0- [address] [place] [address] [phone] Urinalysis 06/09/2009 [facility] Ua Color YELLOW Yellow W/Microscopic [address] [place] [address] [phone] Appearance-Urine CLEAR Clear Specific Eden-Ur 1.022 1.010-1.030 Esterase-Urine TRACE Abnormal Negative Nitrite NEGATIVE Negative Ubqfoesfojen-Sj-AYH NEGATIVE Negative Protein-Urine NEGATIVE Negative PH-Urine 5.5 5-9 Blood-Urine NEGATIVE Negative Ketones-Urine NEGATIVE Negative Bilirubin-Ur NEGATIVE Negative Glucose-Urine NEGATIVE Negative WBC-Urine 0-2 0-5 RBC-Urine 0-2 0-2 Lipid Profile 06/09/2009 [facility] Triglyceride 74 mg/dL 40- 200 (Trig/Chol/HDL) [address] [place] [address] [phone] Cholesterol 172 mg/dL Less Than 200 13 High Density Lipoprotein 48 mg/dL 40-60 14 Cholesterol/HDL Ratio 3.58 AVERAGE 1-4.44 Low Density Lipoprotein 109 mg/dL High Less Than 100 15 Laboratory test 06/09/2009 [facility] TSH 1.24 MIU/ML 0.34- 5.60 finding [address] [place] [address] [phone] Comp Metabolic 06/09/2009 [facility] Sodium 137 mmol/L 135- 145 Panel [address] [place] [address] [phone] Potassium 4.1 mmol/L 3.5-5.0 Chloride 105 mmol/L [...] 69.0 > 60 20 CBC With 06/09/2009 [facility] White Blood 7.4 CUMM 4.8-10.8 Electronic Diff [address] [place] [address] [phone] Red Cell Count 3.51 CUMM Low 4.2-5.4 [...] 0 0-0.2 1 SEE RESULT BELOW Name: JHONATANNEOLVERONICA S : [address]: David Arevalo MD Acct: [id number] Unit: [id number] AGE: 87 Location: ENDO Re02/21/18 SEX: F Status: DEP REF SPEC: [id number] LACEY: 02/21/18-[address] [facility] [address]: David Arevalo MD REQ: [id number] RECD: 02/21/18 STATUS: RY CARDENAS DR: Susy [...] by and Reported on: Brendon Nicole MD 1304 END OF REPORT DEPARTMENT OF PATHOLOGY, [address] [place] [address] Brendon Nicole M.D. Director [facility] # [id number] 2 Because ethnic data is not always [...] 0.03 ng/mL Not supportive of diagnosis of [place] 0.03 - 0.50 ng/mL Indeterminate: suggest serial studies if clinically indicated. Greater than 0.5 ng/mL Consistent with diagnosis of OK 4 CALL RESULTS TO 4591 5 Critical Result K:2.7 Called to [id number] at: 10:42:59 by:[id number] Read back by:[email or web address] Potassium reference range changed effective 01/10/14 6 [...] of vitamin B12 deficiency. Test Performed by: [facility] Dpt of Lab Med and Pathology [address] [place] [address] Sports Manager: Simba Duarte III, M.D. 11 -- REFERENCE VALUE -- 25-HYDROXY D TOTAL (D2+D3) Optimum levels in the normal population are 25-80 Test Performed by: [facility] Dpt of Lab Med and Pathology [address] [place] [address] Sports Manager: Simba Duarte III, M.D. 12 Test Performed by: [facility] Dpt of Lab Med and Pathology [address] [place] [address] Sports Manager: Simba Duarte III, M.D. 13 CHOLESTEROL INTERPRETATION: [...] change was based on recommendations from the [place] [employer]. 18 Please note change in reference range effective 07 . 19 A metabolite of Naproxen, O-desmethylnaproxen, has been shown to interfere with the Jendrassik-Taylor method for measuring total bilirubin. Samples from [...] (or dialysis) Procedures Date Code Description Status 07/25/2018 48517 EKG Tracing & Interpretation Completed 07/08/2018 45049 Secondary Closure Of Surgical Wound Or Dehiscence Completed Extensive Or Co 07/08/2018 63198 Secondary Closure Of Surgical Wound Or Dehiscence Completed Extensive Or Co 07/07/2018 50586 ECHO Transthorasic Realtime 2D W Doppler & Color Flow Completed Hosp 06/09/2018 90490 EKG, Interpretation Only Completed 06/09/2018 56817 Cardioversion Completed 05/30/2018 23477 EKG Tracing & Interpretation Completed 05/06/2018 33797 Open TX Of Femoral FX,Promimal End,Neck Internal Completed Fixation 05/06/2018 87484 Open TX Of Femoral FX,Promimal End,Neck Internal Completed Fixation 05/06/2018 74665 Open TX Of Femoral FX,Promimal End,Neck Internal Completed Fixation 05/05/2018 56032 ECHO Transthorasic Realtime 2D W Doppler & Color Flow Completed Hosp 05/05/2018 39352 EKG, Interpretation Only Completed 04/25/2018 34593 Short Arm Cast Application Completed 02/21/2018 93422220 Colonoscopy Completed 02/21/2018 95626 Colonoscopy Flexible Remove Tumor/Polyp/Lesion Snare Completed Technique 12/27/2017 84262 EKG Tracing & Interpretation Completed 12/25/2017 96120 Anoscopy Completed 06/20/2017 68884 EKG Tracing & Interpretation Completed 05/28/2017 27113 Cardioversion Completed 04/10/2017 99397 EKG Tracing & Interpretation Completed 03/06/2017 34001 Cardioversion Completed 10/23/2016 71652 EKG Tracing & Interpretation Completed 10/17/2016 49830 EKG, Interpretation Only Completed 10/16/2016 62176 EKG, Interpretation Only Completed 10/15/2016 96140 Cath PLMT&NJX L Ventriculog Img S&I Completed 10/15/2016 25452 EKG, Interpretation Only Completed 10/15/2016 11837 Revascularization Acute Total/Subtotal Occlusion Completed 10/14/2016 78939 EKG, Interpretation Only Completed 10/12/2016 79220 Treadmill Interp/Report Only Completed 10/12/2016 65686 Stress Test Supervsn W/Out I/R Completed 10/11/2016 39020 Cardioversion Completed 10/11/2016 07675 Echocardiogram, Limited Study Completed 09/17/2016 32717 Mobile Cardiovascular Telemetry Over 24 HR Up To 30 Completed Days 09/12/2016 19527 EKG Tracing & Interpretation Completed 08/27/2016 01573 ECHO Transthorasic Realtime 2D W Doppler & Color Flow Completed Hosp 08/27/2016 80934 EKG, Interpretation Only Completed 08/27/2016 44958 Cardioversion Completed 08/26/2016 70662 EKG, Interpretation Only Completed 07/05/2016 27003 ECHO Transthorasic Realtime 2D W Doppler & Color Flow Completed Hosp 10/14/2015 64599 EKG Tracing & Interpretation Completed 08/13/2015 09043 EKG, Interpretation Only Completed 08/13/2015 62282 Cardioversion Completed 01/27/2015 55665 EKG Tracing & Interpretation Completed 12/28/2014 29381 EKG, Interpretation Only Completed 12/28/2014 21197 Cardioversion Completed 03/03/2014 07871 EKG Tracing & Interpretation Completed 01/26/2014 60260 EKG, Interpretation Only Completed 01/26/2014 40109 Cardioversion Completed 01/25/2014 44188 Cardioversion Completed 02/20/2013 42496 ECHO Transthoracic, Real-Time 2D With Doppler And Color Completed Flow 05/27/2012 82232 ECHO Transthoracic, Real-Time 2D With Doppler And Color Completed Flow 05/27/2012 48003 ECHO Transthoracic, Real-Time 2D With Doppler And Color Completed Flow 05/23/2012 14348 Holter Monitoring 24 HR New Completed 04/24/2012 94728 EKG Tracing & Interpretation Completed 01/10/2012 36390 RT & lt Cath W/Injx HRT Art&L Ventr Img S&I Completed 01/01/2012 50946 Carotid Doppler,Bilateral Completed 12/26/2011 07473 Stress Test Completed 04/01/2010 03875 Treadmill Interp/Report Only Completed 04/01/2010 78412 Stress Test Supervsn W/Out I/R Completed 04/21/2009 06636 EKG Tracing & Interpretation Completed 04/19/2009 35293256 Colonoscopy Completed 04/04/2009 64338 EKG, Interpretation Only Completed Encounters Type Date Location Provider Dx Diagnosis Office Visit 07/15/2018 [facility] Vikki Villafuerte, TORCH SOLDERER I13.0 Hyp hrt & chr 9:00a lo Murcia kdlaury dis w hrt Hospitalists fail and stg 1-4/unsp chr kdny N18.3 Chronic kidney disease, stage 3 (moderate) I47.2 Ventricular tachycardia I48.0 Paroxysmal atrial fibrillation Office Visit 07/14/2018 [facility] Nicole Guerra, I47.2 Ventricular 8:59a lo Murcia M.D. tachycardia Hospitalists N18.3 Chronic kidney disease, stage 3 (moderate) I13.0 Hyp hrt & chr kdny dis w hrt fail and stg 1-4/unsp chr kdny [facility] L02.91 Cutaneous 8:59a lo Murcia M.D. abscess, Hospitalists unspecified R33.9 Retention of urine, unspecified I13.0 Hyp hrt & chr kdny dis w hrt fail and stg 1-4/unsp chr kdny N18.3 Chronic kidney disease, stage 3 (moderate) Office Visit 07/12/2018 [facility] Nicole Guerra, R33.9 Retention of 8:57a lo Murcia M.D. urine, Hospitalists unspecified I13.0 Hyp hrt & chr kdny dis w hrt fail and stg 1-4/unsp chr kdny N18.3 Chronic kidney disease, stage 3 (moderate) I47.2 Ventricular tachycardia Office Visit 07/11/2018 [facility] T81.41xD Infct fol a 7:56a For Infectious MADY Bishop proc, superfic Diseases incisional surgical site, subs N39.0 Urinary tract infection, site not specified B96.1 Klebsiella pneumoniae as the cause of diseases classd elswhr N18.3 Chronic kidney disease, stage 3 (moderate) Office Visit 07/11/2018 8:56a [facility] Priti R33.9 Retention of Assoc,pc Senner, DO urine, Hospitalists unspecified L02.91 Cutaneous abscess, unspecified J96.01 Acute respiratory failure with hypoxia I13.0 Hyp hrt & chr kdny dis w hrt fail and stg 1-4/unsp chr kdny N18.3 Chronic kidney disease, stage 3 (moderate) Office Visit 07/10/2018 8:55a [facility] I47.2 Ventricular Assoc,pc Geraldo Blackburn, tachycardia Hospitalists TORCH SOLDERER N18.3 Chronic kidney disease, stage 3 (moderate) I50.33 Acute on chronic diastolic (congestive) heart failure R33.9 Retention of urine, unspecified Office Visit 07/09/2018 [facility] T81.41xD Infct fol a 7:53a For Infectious MADY Bishop proc, superfic Diseases incisional surgical site, subs D72.829 Elevated white blood cell count, unspecified N39.0 Urinary tract infection, site not specified B96.1 Klebsiella pneumoniae as the cause of diseases classd elswhr N18.3 Chronic kidney disease, stage 3 (moderate) Office Visit 07/08/2018 [facility] T81.41xA Infct fol a 7:48a For Infectious MADY Bishop proc, superfic Diseases incisional surgical site, init N39.0 Urinary tract infection, site not specified B96.1 Klebsiella pneumoniae as the cause of diseases classd elswhr N18.3 Chronic kidney disease, stage 3 (moderate) Z96.642 Presence of left artificial hip joint Office Visit 07/08/2018 8:54a [facility] I47.2 Ventricular Assoc,pc Geraldo Blackburn, tachycardia Hospitalists TORCH [employer]DERER I50.33 Acute on chronic diastolic (congestive) heart failure I48.0 Paroxysmal atrial fibrillation N18.4 Chronic kidney disease, stage 4 (severe) Office Visit 07/07/2018 8:53a [facility] Sugey I47.2 Ventricular Assoc, Geraldo Blackburn, tachycardia Hospitalists TORCH SOLDERER I50.33 Acute on chronic diastolic (congestive) heart failure I48.0 Paroxysmal atrial fibrillation N18.4 Chronic kidney disease, stage 4 (severe) Office Visit 07/06/2018 8:53a [facility] Galo N17.9 Acute kidney Assoc,lo Cowan M.D. failure, Hospitalists unspecified I47.2 Ventricular tachycardia I11.0 Hypertensive heart disease with heart failure I50.33 Acute on chronic diastolic (congestive) heart failure I48.91 Unspecified atrial fibrillation Office Visit 07/05/2018 8:52a [facility] Galo N17.9 Acute kidney Assoc,lo Cowan M.D. failure, Hospitalists unspecified E87.1 Hypo-osmolality and hyponatremia I50.31 Acute diastolic (congestive) heart failure I11.0 Hypertensive heart disease with heart failure Office Visit 07/05/2018 4:26p [facility] Carlos A Jt I47.2 Ventricular Of Nathaniel Luz M.D., tachycardia FACC, FASNC Z98.61 Coronary angioplasty status Z95.2 Presence of prosthetic heart valve Office Visit 07/04/2018 [facility] Galo E87.1 Hypo-osmolality and 8:51a Assoc,lo Cowan M.D. hyponatremia Hospitalists N17.9 Acute kidney failure, unspecified I48.91 Unspecified atrial fibrillation Office Visit 07/03/2018 8:50a [facility] Charlette N17.9 Acute kidney Assoc, Root, DO failure, Hospitalists unspecified D72.829 Elevated white blood cell count, unspecified R53.1 Weakness R05 Cough Office Visit 07/03/2018 10:15a Orthopedic Aaron F S72.012D Unsp intracap Services Of MD Alex fx left femur, C.M.A. subs for clos fx w routn heal S52.514D Nondisp fx of r radial styloid pro, 7thD S46.011A Strain of musc/tend the rotator cuff of right shoulder, init Office Visit 06/10/2018 [facility] Rubina I48.91 Unspecified atrial 4:48p Assoc,pc Beka, M.D. fibrillation Hospitalists E03.9 Hypothyroidism, unspecified D64.9 Anemia, unspecified Office Visit 06/09/2018 [facility] I48.91 Unspecified atrial 9:14a lo Murcia M.D. fibrillation Hospitalists E03.9 Hypothyroidism, unspecified D64.9 Anemia, unspecified Office Visit 06/08/2018 1:34p [facility] Conchita Thompson, I48.0 Paroxysmal atrial Of Scientific Director M.D. 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 atrial Hospitalists fibrillation D63.1 Anemia in chronic kidney disease N18.3 Chronic kidney disease, stage 3 (moderate) Office Visit 06/05/2018 9:11a [facility] Dannie Sherman, I48.0 Paroxysmal atrial M.D. fibrillation Office Visit 06/05/2018 10:28a [facility] Jesus Alberto S. 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 I48.91 Unspecified atrial Of Nathaniel Foster, N.P. fibrillation I10 Essential (primary) hypertension R60.9 Edema, unspecified I50.32 Chronic diastolic (congestive) heart failure Office Visit 05/27/2018 1:00p Orthopedic Aaron F S72.012D Unsp intracap Services Of MD Alex fx left femur, C.M.A. subs for clos fx w routn heal S52.514D Nondisp fx of r radial styloid pro, 7thD Office Visit 05/14/2018 [facility] S72.012A Unsp intracapsular 9:31a Asslo blunt M.D. fracture of left Hospitalists femur, init for clos fx D62 Acute posthemorrhagic anemia I48.91 Unspecified atrial fibrillation I10 Essential (primary) hypertension W19.xxxA Unspecified fall, initial encounter Office Visit 05/12/2018 [facility] Carson Lopez D62 Acute 9:30a Asslo blunt MD posthemorrhagic Hospitalists anemia R65.10 Sirs of non-infectious origin w/o acute organ dysfunction N17.9 Acute kidney failure, unspecified I48.91 Unspecified atrial fibrillation S72.002A Fracture of unsp part of neck of left femur, init M79.669 Pain in unspecified lower leg I10 Essential (primary) hypertension Z95.5 Presence of coronary angioplasty implant and graft [facility] D[facility] Acute 9:30a lo Murcia MD posthemorrhagic Hospitalists anemia R65.10 Sirs of non-infectious origin w/o acute organ dysfunction N17.9 Acute kidney failure, unspecified S72.002A Fracture of unsp part of neck of left femur, init I48.91 Unspecified atrial fibrillation I10 Essential (primary) hypertension Z95.5 Presence of coronary angioplasty implant and graft [facility] Acute 9:29a lo Murcia MD posthemorrhagic Hospitalists anemia R65.10 Sirs of non-infectious origin w/o acute organ dysfunction N17.9 Acute kidney failure, unspecified I48.91 Unspecified atrial fibrillation S72.002A Fracture of unsp part of neck of left femur, init I10 Essential (primary) hypertension Z95.5 Presence of coronary angioplasty implant and graft Office Visit 05/09/2018 [facility] John R65.10 Sirs of 9:29a lo Murcia MD non-infectious Hospitalists origin w/o acute organ dysfunction N17.9 Acute kidney failure, unspecified D62 Acute posthemorrhagic anemia I48.91 Unspecified atrial fibrillation S72.002A Fracture of unsp part of neck of left femur, init I10 Essential (primary) hypertension Z95.5 Presence of coronary angioplasty implant and graft Office Visit 05/08/2018 [facility] R65.10 Sirs of 9:29a Asslo blunt D.O. non-infectious Hospitalists origin w/o acute organ dysfunction N17.9 Acute kidney failure, unspecified D62 Acute posthemorrhagic anemia S72.002A Fracture of unsp part of neck of left femur, init I48.91 Unspecified atrial fibrillation I10 Essential (primary) hypertension Z95.5 Presence of coronary angioplasty implant and graft Office Visit 05/07/2018 [facility] R65.10 Sirs of 9:28a Asslo blunt D.O. non-infectious Hospitalists origin w/o acute organ dysfunction N17.9 Acute kidney failure, unspecified S72.002A Fracture of unsp part of neck of left femur, init I48.91 Unspecified atrial fibrillation I10 Essential (primary) hypertension Z95.5 Presence of coronary angioplasty implant and graft Office Visit 05/06/2018 [facility] Rubina R65.11 Sirs of 9:26a Asslo blunt M.D. non-infectious Hospitalists origin w acute organ dysfunction N17.9 Acute kidney failure, unspecified S72.002A Fracture of unsp part of neck of left femur, init I48.91 Unspecified atrial fibrillation Z95.5 Presence of coronary angioplasty implant and graft Office Visit 05/05/2018 9:26a [facility] Priti S72.002A Fracture of Assoc,pc [...] of left femur, init Office Visit 05/04/2018 [facility] Charlette S72.012A Unsp intracapsular 9:23a Assoc,pc Rootrand, DO fracture of left Hospitalists femur, init for clos fx I48.0 Paroxysmal atrial fibrillation W19.xxxA Unspecified fall, initial encounter Office 05/04/2018 [facility] Marianne S72.002A Fracture of Visit 10:44a Of Tal Dailey M.D. unsp part of neck of left femur, init Office 04/25/2018 [facility] S52.514A Nondisp fx of Visit 10:30a Of Scientific Director AT Tyson Montez MD right radial styloid process, init for clos fx Office 01/09/2018 [facility] Dinora Venegas K64.0 First degree Visit 10:00a [employer] hemorrhoids K62.5 Hemorrhage of anus and rectum Office Visit 12/27/2017 10:30a [facility] Talib Medrano I48.0 Paroxysmal atrial Of Nathaniel Cisneros M.D. 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 hemorrhoids Office Visit 06/20/2017 10:45a [facility] Talib Medrano I48.0 Paroxysmal atrial Of Nathaniel Cisneros M.D. fibrillation I25.10 Athscl heart disease of [place] coronary artery w/o ang pctrs Office Visit 04/10/2017 10:30a [facility] Talib Medrano I25.10 Athscl heart Of Nathaniel Cisneros M.D. disease of [place] coronary artery w/o ang pctrs I48.0 Paroxysmal atrial fibrillation Office Visit 12/05/2016 10:30a [facility] Talib Medrano I25.10 Aths[place] heart Of Nathaniel Cisneros M.D. disease of [place] coronary artery w/o ang pctrs I10 Essential (primary) hypertension I48.0 Paroxysmal atrial fibrillation Z95.2 Presence of prosthetic heart valve Office Visit 10/23/2016 2:15p [facility] Talib Medrano I25.10 Athscl heart Of [facility] AT [facility] Sandoval Cisneros disease of [place] coronary artery w/o ang pctrs I10 Essential (primary) hypertension I48.0 Paroxysmal atrial fibrillation Z95.2 Presence of prosthetic heart valve I25.2 Old myocardial infarction Office Visit 10/17/2016 [facility] Rosenthal I48.91 Unspecified atrial 8:26a Asslo blunt M.D. fibrillation Hospitalists E78.5 Hyperlipidemia, unspecified I25.10 Athscl heart disease of [place] coronary artery w/o ang pctrs I10 Essential (primary) hypertension Office Visit 10/16/2016 2:56p [facility] Harvey Saldana I49.5 Sick sinus [place] Richards syndrome I25.10 Athscl heart disease of [place] coronary artery w/o ang pctrs I10 Essential (primary) hypertension Office Visit 10/16/2016 9:58a [facility] Nemo Harris I21.4 Non-St elevation Of [facility] AT [facility] MD Sourav, (Nstemi) FACC, FSCAI myocardial infarction I25.10 Athscl heart disease of [place] coronary artery w/o ang pctrs Office Visit 10/16/2016 [facility] Rosenthal I48.91 Unspecified atrial 8:25a Asslo blunt M.D. fibrillation Hospitalists I25.10 Athscl heart disease of [place] coronary artery w/o ang pctrs E78.5 Hyperlipidemia, unspecified I10 Essential (primary) hypertension Office Visit 10/15/2016 [facility] I48.91 Unspecified atrial 8:25a Assoc,lo Cowan M.D. fibrillation Hospitalists I25.10 Athscl heart disease of [place] coronary artery w/o ang pctrs E78.5 Hyperlipidemia, unspecified I10 Essential (primary) hypertension Office Visit 10/14/2016 [facility] Galo I48.91 Unspecified atrial 8:24a Assoc,lo Cowan M.D. fibrillation Hospitalists I25.10 Athscl heart disease of [place] coronary artery w/o ang pctrs E78.5 Hyperlipidemia, unspecified Office Visit 10/14/2016 2:53p [facility] Harvey F. I48.0 Paroxysmal atrial Mauser, M.D. fibrillation I25.10 Athscl heart disease of [place] coronary artery w/o ang pctrs I21.4 Non-St elevation (Nstemi) myocardial infarction I49.5 Sick sinus syndrome Office Visit 10/13/2016 2:52p [facility] Harvey FCasey I48.0 Paroxysmal atrial Mauser, M.D. fibrillation I21.4 Non-St elevation (Nstemi) myocardial infarction I49.5 Sick sinus syndrome Office Visit 10/13/2016 8:24a [facility] Patricia June I48.91 Unspecified atrial Assoc,lo NCaseyPCasey fibrillation Hospitalists I25.10 Athscl heart disease of [place] coronary artery w/o ang pctrs E78.5 Hyperlipidemia, unspecified I10 Essential (primary) hypertension Office Visit 10/12/2016 2:48p [facility] Harvey FCasey I48.0 Paroxysmal atrial Mauser, M.D. fibrillation I49.5 Sick sinus syndrome I21.4 Non-St elevation (Nstemi) myocardial infarction R94.31 Abnormal electrocardiogram [ECG] [EKG] Office Visit 10/12/2016 [facility] Olga Lidia I48.91 Unspecified atrial 8:23a Assoc,lo Ewing D.O. fibrillation Hospitalists I25.10 Athscl heart disease of [place] coronary artery w/o ang pctrs E78.5 Hyperlipidemia, unspecified I10 Essential (primary) hypertension Office Visit 10/11/2016 [facility] Leonardo I48.91 Unspecified 8:22a Assoc,lo Jensen N.P. atrial Hospitalists fibrillation E78.5 Hyperlipidemia, unspecified I25.10 Athscl heart disease of [place] coronary artery w/o ang pctrs I10 Essential (primary) hypertension Office Visit 10/11/2016 9:56a [facility] Harvey Saldana I10 Essential (primary) Mauser, M.D. hypertension I48.0 Paroxysmal atrial fibrillation I49.5 Sick sinus syndrome Z95.2 Presence of prosthetic heart valve R42 Dizziness and giddiness Office Visit 10/11/2016 2:54p [facility] Harvey Saldnaa I48.0 Paroxysmal atrial Mauser, M.D. fibrillation I49.5 Sick sinus syndrome Z95.2 Presence of prosthetic heart valve I10 Essential (primary) hypertension Office Visit 09/12/2016 8:30a [facility] Talib Medrano I48.0 Paroxysmal atrial Of Scientific Director Brand, M.D. fibrillation I10 Essential (primary) hypertension Z95.2 Presence of prosthetic heart valve Office 08/27/2016 [facility] Kushal I48.91 Unspecified Visit 2:01p Assoc,lo Montero PA atrial Hospitalists fibrillation R74.8 Abnormal levels of other serum enzymes Z95.2 Presence of prosthetic heart valve I10 Essential (primary) hypertension Office Visit 08/26/2016 10:02a [facility] Harvey Saldana I48.0 Paroxysmal atrial Mauser, M.D. fibrillation I10 Essential (primary) hypertension R79.89 Other specified abnormal findings of blood chemistry Office Visit 08/26/2016 2:00p [facility] Patricia June, I48.91 Unspecified atrial Assoc,pc N.PCasey fibrillation Hospitalists R74.8 Abnormal levels of other serum enzymes Z95.2 Presence of prosthetic heart valve I10 Essential (primary) hypertension Office Visit 07/04/2016 2:37p [facility] Brent Lincoln, R55 Syncope and Assoc,lo Nick collapse Hospitalists I48.91 Unspecified atrial fibrillation I25.10 Athscl heart disease of [place] coronary artery w/o ang pctrs I10 Essential (primary) hypertension Office Visit 02/08/2016 1:30p [facility] Hector Caputo, M25.562 Pain in left Of C.M.A. M.D. knee M17.0 Bilateral primary osteoarthritis of knee Office Visit 10/14/2015 11:45a [facility] Talib Medrano I48.1 Persistent atrial Of Nathaniel Cisneros M.D. fibrillation I10 Essential (primary) hypertension I35.0 Nonrheumatic aortic (valve) stenosis Z95.2 Presence of prosthetic heart valve Office Visit 08/13/2015 12:49p [facility] Talib Medrano I48.1 Persistent atrial Of Nathaniel Cisneros M.D. 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 fibrillation Z95.2 Presence of prosthetic heart valve R94.31 Abnormal electrocardiogram [ECG] [EKG] Office Visit 12/29/2014 3:53p [facility] Nicole Guerra, R42 Dizziness and Assoc,pc [place] bravo Hospitalists I48.91 Unspecified atrial fibrillation E78.2 Mixed hyperlipidemia I10 Essential (primary) hypertension Office Visit 12/28/2014 3:52p [facility] Leonardo Jensen, R42 Dizziness and Assoc,pc Bebo bravo Hospitalists I48.91 Unspecified atrial fibrillation I10 Essential (primary) hypertension E78.2 Mixed hyperlipidemia Office Visit 08/13/2014 1:30p [facility] Talib Medrano 427.31 Atrial Of Nathaniel Cisneros M.D. Fibrillation 424.1 Aortic Valve Disorder Office Visit 03/03/2014 9:45a [facility] Talib D. 427.31 Atrial Of Nathaniel Cisneros M.D. Fibrillation 424.1 Aortic Valve Disorder Office Visit 01/26/2014 11:20a [facility] Talib Medrano 427.31 Atrial Of Nathaniel Cisneros M.D. Fibrillation Office Visit 01/22/2014 2:15p [facility] Talib Medrano 424.1 Aortic Valve Of Nathaniel Cisneros M.D. Disorder 427.31 Atrial Fibrillation 401.9 Hypertension Unspec Office Visit 03/19/2013 10:00a [facility] Talib Medrano 424.1 Aortic Valve Of Nathaniel Cisneros M.D. Disorder 427.31 Atrial Fibrillation 427.9 Cardiac Dysrhythmia Unspec Office Visit 11/06/2012 1:00p [facility] Talib Medrano 424.1 Aortic Valve Of Nathaniel Cisneros M.D. Disorder 427.31 Atrial Fibrillation 401.9 Hypertension Unspec Office Visit 05/29/2012 1:45p [facility] Talib Medrano 424.1 Aortic Valve Of Nathaniel Cisneros M.D. Disorder 427.31 Atrial Fibrillation Office Visit 04/24/2012 12:00p [facility] Talib Medrano 424.1 Aortic Valve Of Nathaniel Cisneros M.D. Disorder 427.31 Atrial Fibrillation Office Visit 01/23/2012 11:30a Perico Medrano 786.09 Dyspnea & Cardiology Of [place] Cisneros Respiratory Scientific Director Abnormalities Other 424.1 Aortic Valve Disorder Office Visit 01/09/2012 8:00a [facility] Talib Medrano 786.50 Pain Chest Of Natahniel Cisneros M.D. Unspec 424.1 Aortic Valve Disorder Office 04/02/2010 [facility] Qutaybkassidy S. 794.31 Electrocardiogram Visit 9:17a Cardiology Sand[place] Lees (ECG) (EKG) Abnormal 427.31 Atrial Fibrillation 424.1 Aortic Valve Disorder 401.1 Hypertension Benign Office Visit 04/01/2010 9:17a [facility] Fran Castrejon S. 786.50 Pain Chest [place] Lees Unspec 427.31 Atrial Fibrillation 424.1 Aortic Valve Disorder 401.1 Hypertension Benign Office Visit 07/22/2009 2:00p DO Not Use Nathaniel Quevedo, 401.1 Hypertension AT Becky Jain M.D. Benign [...] Office Visit 03/29/2009 3:40p DO Not Use [facility] Sae, 565.0 Anal Fissure AT Becky Jain M.D. Plan of Treatment Future Appointment(s):11/19/2018 10:45 am - Talib Cisneros M.D. at [facility]08/07/2018 2:15 pm - Aaron Johnson MD at [facility].M.A07/25/2018 - Talib Cisneros M.D.I25.10 Atherosclerotic heart disease of [place] coronary artery withFollow up:4 zslbgsX06.2 Presence of prosthetic heart oiymiN66.0 Paroxysmal atrial fibrillation
--- OUTSIDE RECORDS SUMMARY | 2018-08-05 13:55 | XMS REPORT | Continuity of Care Document ---
:1930 External Reference #:[id number] Author Name Tamy Benavides Care Team Providers Name Role Phone Susy Quevedo MD Primary Care Physician Unavailable Payers Date Identification Numbers Payment Provider Subscriber Policy Number: [id number] [employer] Veronica Bhat Group Number: [id number] [address] PayID: [id number] [place] [address] Effective: 1995 Policy Number: [id number] Medicare Elizabeth Churey Expires: 2017 PayID: [id number] [address] [place] [address] Advance Directives Description No Information Available Problems Active Problems Provider Date Aortic valve disorder Talbi Cisneros M.D. Onset: 03/19/2013 Atrial fibrillation Talib [...] Patient has never smoked Smoking Status Reviewed: 07/22/18 Patient has never smoked Exercise Type/Frequency Exercises rarely Currently Active Patient is currently not sexually active Allergies, Adverse Reactions, Alerts Description No Known Drug Allergies Medications Active Medications SIG Qnty Indications Ordering Date Provider Eleuterio 1 by mouth twice a 180tabs Talib DCasey 10/17/2016 5mg Tablets day Sandoval Cisneros Nitroglycerin 1 sl q5mins x3 as 25tabs Talib DCasey 10/17/2016 0.4mg needed for chest Sandoval Cisneros Tablets Sub pain Potassium Chloride ER 2 tabs by mouth 90tabs Talib DCasey 06/04/2012 daily Sandoval Cisneros 10Meq Tablets ER Carvedilol 1 po bid 180tabs Talib D. 06/04/2012 3.125mg Sandoval Cisneros Tablets Levothyroxine Sodium Unknown Atorvastatin Calcium 1 by mouth every Unknown day 40mg Tablets Cyanocobalamin take one Unknown 1000mcg capsule/tablet Tablets Sub daily sublingually Calcium 600 + D 2 tablet po daily 60tabs Unknown [id number] Tablets Colace 1 po tid 180caps Unknown 100mg Capsules Folic Acid 1 po qd 90tabs Unknown 1mg Tablets Ferrous Sulfate 1 po qd 30tabs Unknown 325(65Fe) mg Tablets One Daily For Women 1 po qd Unknown 50+A Dvanced Women 50 Tablets Aspirin 1 po qd Unknown 81mg Tablets Furosemide 2 tabs by mouth for Stevjanesvic, 40mg Tablets 3 days then return MD Susy to 1 tab by mouth daily History Medications Keflex take 1 tab by mouth 21caps Aaron F 07/03/2018 - 500mg Capsules 3 times a day x 7 MD Alex Unknown days until finished. Magnesium Oxide -MG 1 tab by mouth 2x 60caps I48.91 Ashley Collins 05/30/2018 - Supplement daily Juan, N.P. Unknown 400mg Capsules Suprep Bowel Prep Kit take according to 1unvipul Harris 01/10/2018 - your physician's MD Mickey 04/24/2018 17.5-3.13-1.6GM/177ML instructions the Solution day before your procedure. split the dose as directed. Magnesium Citrate Drink the entire 296ml David Wylie. 01/10/2018 - bottle after dinner MD Mickey 04/24/2018 1.745GM/30ML Solution two days before your procedure. Amiodarone HCL 1 by mouth every Talib DCasey 05/29/2017 - 200mg day Sandoval Cisneros Unknown Tablets Clopidogrel Bisulfate 1 by mouth every 180tabs Talib Medrano 10/17/2016 - day Sandoval Cisneros 04/09/2017 75mg Tablets Amlodipine Besylate 1 po qd 90tabs Talib D. 06/04/2012 - 5mg Sandoval Cisneros 03/12/2013 Tablets Warfarin Sodium 1-2 po daily as 180tabs Talib D. 04/28/2012 - 2mg directed Sandoval Cisneros 10/17/2016 Tablets Ketoconazole 1 application daily 30gm Sae 07/22/2009 - 2% Cream Sandoval Jain 03/12/2013 Anusol-HC apply tid prn 30grams Sae 04/06/2009 - 2.5% Cream Sandoval Jain 03/18/2013 Benefiber 1 table spoon in 1 1jar 565.0 Sae 03/29/2009 - Powder liter of water bid Sandoval Jain 03/11/2013 Analpram-HC 1 application tid 1tube 565.0 Sae [...] tablet po qday 90tabs Sae, - 500mg Sandoval Jain 10/13/2015 Tablets ER Simvastatin 1 po qhs 90tabs Sae, - 40mg Azeem JainDCasey 05/27/2018 Tablets Propranolol ER 1 po qday 90tabs Sae, - 80mg Azeem JainDCasey 03/12/2013 Tablets Lisinopril 1 po qd 90tabs Sae, - 5mg Tablets Azeem JainDCasey 01/13/2014 Chlorothiazide 1 po qday 90tabs Sae, - 500mg Sandoval Jain 03/12/2013 Tablets Immunizations Description No Information Available Vital Signs Date Vital Result Comment 07/22/2018 1:27pm Height 66 inches 5'6" Heart [...] Result H/L Range Note Laboratory test 02/21/2018 [facility] Surgical SEE RESULT [address] [place] [address] [phone] Laboratory test 12/28/2014 [facility] Inr/Protime 3.66 High 0.78-1.[address] [place] [address] [phone] CBC Auto Diff 12/28/2014 [facility] White Blood 4.9 10^3/uL N 4.8-10.[address] [place] [address] [phone] Red Blood Count 3.83 10^6/uL Low 4.0-5.4 [...] % 0 N Comp Metabolic Panel 12/28/2014 [facility] Sodium 133 mmol/L N 133-145 [address] [place] [address] [phone] Potassium 3.6 mmol/L N 3.5-5.0 Chloride 98 [...] 40.1 N >60 2 Laboratory test 12/28/2014 [facility] Magnesium 1.8 mg/dL Low 1.9-2.7 finding [address] [place] [address] [phone] Troponin-I (TnI) 0.00 ng/mL N <0.03 3 TSH (Thyroid Stim Horm) 2.86 ?IU/mL N 0.34-5.60 Basic Metabolic Panel 01/25/2014 [facility] Sodium 138 mmol/L N 133-145 4 [address] [place] [address] [phone] Potassium 2.7 mmol/L Low 3.5-5.0 5 Chloride 97 mmol/L Low 101-111 Co2 Carbon Dioxide 30 mmol/L N 22-32 Anion Gap 11 mmol/L N 2-11 Glucose 136 mg/dL High 70-100 Blood Urea Nitrogen 27 mg/dL High 6-24 Creatinine 1.68 mg/dL High 0.51-0.95 BUN/Creatinine Ratio 16.1 N 8-20 Calcium 8.8 mg/dL N 8.6-10.3 Egfr Non- 29.1 N >60 Egfr 37.4 N >60 6 Inr/Protime 01/25/2014 [facility] Inr 2.32 High 0.85-1.06 [address] [place] [address] [phone] CBC No Diff 01/25/2014 [facility] White Blood 5.3 10^3/uL N 4.8-10.8 [address] [facility] [place] [address] [phone] Red Blood Count 3.37 10^6/uL Low 4.0-5.4 Hemoglobin 10.5 g/dL Low 12.0-16.0 Hematocrit 33 % Low 35-47 Mean Corpuscular Volume 97 fL N 80-97 Mean Corpuscular Hemoglobin 31 pg N 27-31 Mean Corpuscular HGB Conc 32 g/dL N 31-36 Red Cell Distribution Width 15 % N 10.5-15 Platelet Count 131 10^3/uL Low 150-450 Mean Platelet Volume 7 um3 Low 7.4-10.4 Laboratory test 01/25/2014 [facility] TSH (Thyroid 2.83 N 0.34 -5.60 finding [facility] Stimulating IU/[place] [address] Horm) [phone] Laboratory test 12/07/2013 [facility] Inr 1.89 High 0.85-1.06 [place] [address] [phone] Laboratory test 08/24/2013 [facility] Inr 1.99 High 0.85-1.06 finding [place] [address] [phone] Laboratory test 07/27/2013 [facility] Inr 1.96 High 0.85-1.06 [place] [address] [phone] Laboratory test 07/06/2013 [facility] Inr 1.82 High 0.85-1.06 [place] [address] [phone] Laboratory test 06/08/2013 [facility] Inr 3.57 High 0.85-1.06 [place] [address] [phone] Laboratory test 05/25/2013 [facility] Inr 1.63 High 0.85-1.06 finding [place] [address] [phone] Laboratory test 04/27/2013 [facility] Inr 2.48 High 0.85-1.06 [place] [address] [phone] Laboratory test 03/30/2013 [facility] Inr 2.02 High 0.85-1.[address] [place] [id number] [phone] Inr/Protime 03/02/2013 Inr 2.05 High 0.85-1.06 7 Laboratory test 02/02/2013 [facility] Inr 2.31 High 0.85-1.06 8 finding [facility] [place], [place] [address]23196 [phone] Laboratory test 01/05/2013 [facility] Inr 2.30 High 0.87-0.[address] [place] [address] [phone] Laboratory test 12/08/2012 [facility] Inr 2.67 High 0.87-0.[address] [place] [address] [phone] Laboratory test 11/11/2012 [facility] Inr 2.42 High 0.87-0.[address] [place] [address] [phone] Laboratory test 10/20/2012 [facility] Inr 2.22 High 0.87-0.[address] [place] [address] [phone] Laboratory test 10/06/2012 [facility] Inr 1.82 High 0.87-0.[address] [place] [address] [phone] Laboratory test 09/22/2012 [facility] Inr 1.69 High 0.87-0.[address] [place] [address] [phone] Laboratory test 08/25/2012 [facility] Inr 1.89 High 0.87-0.[address] [place] [address] [phone] Laboratory test 07/28/2012 [facility] Inr 2.25 High 0.87-0.[address] [place] [address] [phone] Laboratory test 06/30/2012 [facility] Inr 2.30 High 0.87-0.[address] [place] [address] [phone] Laboratory test 06/09/2012 [facility] Inr 1.83 High 0.87-0.97 [address] [place] [address] [phone] CBC With Manual 05/01/2010 [facility] White Blood 5.7 CUMM 4.8-10.8 Diff [facility] [place] [address] [phone] Red Cell Count 3.29 CUMM Low 4.2-5.4 [...] 3.5 Anisocytosis SLIGHT Ovalocytes FEW Laboratory 05/01/2010 [facility] Methylmalonic 0.43 Abnormal < =0.40 [address] Acid nmol/mL [place], [place] [address]37 [phone] Vitamin D,25 11/07/2009 [facility] 25-Hydroxy <4.0 () Hydroxy [address] Vitamin D2 ng/[place] [address] [phone] 25-Hydroxy Vitamin D3 27 ng/mL () 25-Hydroxy Vitamin D Total 27 ng/mL () 11 Vitamin D 1,25 11/07/2009 [facility] Vitamin D, 1,25 51 pg/mL 18-[address] Dihydroxy D,2 [place] [address] [phone] Vitamin B12 11/07/2009 [facility] Vitamin B12 300 pg/mL 180- [address] [place] [address] [phone] Folic Acid 14.1 NG/ML 2-16 Laboratory test 11/07/2009 [facility] Ferritin 55 NG/ML 11.0- [address] [place], [place] [address] [phone] Iron And Tibc 11/07/2009 [facility] Iron Total 72 g/dL 28- [address] [place] [address] [phone] Unsaturated Iron Binding 270 g/dL Total Iron Binding Capacity 342 g/dL 250-450 % Iron Saturation 21 % 15-55 CBC W/Electronic 11/07/2009 [facility] White Blood 7.1 CUMM 4.8-10.[address] [place] [address] [phone] Red Cell Count 3.43 CUMM Low 4.2-5.4 [...] Abs Basophils 0 0-0.2 Urinalysis W/Microscopic 06/09/2009 [facility] Ua Color YELLOW Yellow [address] [place] [address] [phone] Appearance-Urine CLEAR Clear Specific [place]-Ur 1.022 1.010-1.030 Esterase-Urine TRACE Abnormal Negative Nitrite NEGATIVE Negative Amrprxkuyopz-Eg-HJA NEGATIVE Negative Protein-Urine NEGATIVE Negative PH-Urine 5.5 5-9 Blood-Urine NEGATIVE Negative Ketones-Urine NEGATIVE Negative Bilirubin-Ur NEGATIVE Negative Glucose-Urine NEGATIVE Negative WBC-Urine 0-2 0-5 RBC-Urine 0-2 0-2 Lipid Profile 06/09/2009 [facility] Triglyceride 74 mg/dL 40- 200 (Trig/Chol/HDL) [address] [place] [address] [phone] Cholesterol 172 mg/dL Less Than 200 13 High Density Lipoprotein 48 mg/dL 40-60 14 Cholesterol/HDL Ratio 3.58 AVERAGE 1-4.44 Low Density Lipoprotein 109 mg/dL High Less Than 100 15 Laboratory test 06/09/2009 [facility] TSH 1.24 MIU/ML 0.34- 5.60 finding [address] [place] [address] [phone] Comp Metabolic 06/09/2009 [facility] Sodium 137 mmol/L 135- [address] [place] [address] [phone] Potassium 4.1 mmol/L 3.5-5.0 Chloride 105 mmol/L [...] 69.0 > 60 20 CBC With 06/09/2009 [facility] White Blood 7.4 CUMM 4.8-10.8 Electronic Diff [address] [place] [address] [phone] Red Cell Count 3.51 CUMM Low 4.2-5.4 [...] [address]: David Arevalo MD Acct: [id number] Unit: [id number] AGE: 87 Location: ENDO Re02/21/18 SEX: F Status: DEP REF SPEC: [id number] LACEY: 02/21/18-[address] [facility] [address]: David Arevalo MD REQ: [id number] RECD: 02/21/18 STATUS: RY CARDENAS DR: Susy [...] END OF REPORT DEPARTMENT OF PATHOLOGY, [address] [place] [address] Brendon Nicole M.D. Director [facility] # [id number] 2 Because ethnic data is not always [...] 0.03 ng/mL Not supportive of diagnosis of [place] 0.03 - 0.50 ng/mL Indeterminate: suggest serial studies if clinically indicated. Greater than 0.5 ng/mL Consistent with diagnosis of [place] 4 CALL RESULTS TO 4591 5 Critical Result K:2.7 Called to [id number] at: 10:42:59 by: Read back by:[id number] Potassium reference range changed effective 01/10/14 6 [...] of vitamin B12 deficiency. Test Performed by: [facility] Dpt of Lab Med and Pathology [address] [place] [address] Liquor Establishment Manager: Simba Duarte III, M.D. 11 -- REFERENCE VALUE -- 25-HYDROXY D TOTAL (D2+D3) Optimum levels in the normal population are 25-80 Test Performed by: [facility] Dpt of Lab Med and Pathology [address] [place] [address] Liquor Establishment Manager: Simba Duarte III, M.D. 12 Test Performed by: [facility] Dpt of Lab Med and Pathology [address] [place] [address] Liquor Establishment Manager: Simba Duarte III, M.D. 13 CHOLESTEROL [...] change was based on recommendations from the [place] [employer]. 18 Please note change in reference range effective 07 . 19 A metabolite of Naproxen, O-desmethylnaproxen, has been shown to interfere with the Jendrassik-Paxson method for measuring total bilirubin. Samples from [...] (or dialysis) Procedures Date Code Description Status 07/08/2018 96752 Secondary Closure Of Surgical Wound Or Dehiscence Completed Extensive Or Co 07/08/2018 72736 Secondary Closure Of Surgical Wound Or Dehiscence Completed Extensive Or Co 07/07/2018 80201 ECHO Transthorasic Realtime 2D W Doppler & Color Flow Completed Hosp 06/09/2018 86236 Cardioversion Completed 05/30/2018 21730 EKG Tracing & Interpretation Completed 05/06/2018 71143 Open TX Of Femoral FX,Promimal End,Neck Internal Completed Fixation 05/06/2018 54697 Open TX Of Femoral FX,Promimal End,Neck Internal Completed Fixation 05/06/2018 21626 Open TX Of Femoral FX,Promimal End,Neck Internal Completed Fixation 05/05/2018 26269 ECHO Transthorasic Realtime 2D W Doppler & Color Flow Completed Hosp 05/05/2018 89529 EKG, Interpretation Only Completed 04/25/2018 75358 Short Arm Cast Application Completed 02/21/2018 [id number] Colonoscopy Completed 02/21/2018 43605 Colonoscopy Flexible Remove Tumor/Polyp/Lesion Snare Completed Technique 12/27/2017 74892 EKG Tracing & Interpretation Completed 12/25/2017 81292 Anoscopy Completed 06/20/2017 70159 EKG Tracing & Interpretation Completed 05/28/2017 49191 Cardioversion Completed 04/10/2017 58469 EKG Tracing & Interpretation Completed 03/06/2017 36707 Cardioversion Completed 10/23/2016 63432 EKG Tracing & Interpretation Completed 10/17/2016 31962 EKG, Interpretation Only Completed 10/16/2016 92529 EKG, Interpretation Only Completed 10/15/2016 73003 Cath PLMT&NJX L Ventriculog Img S&I Completed 10/15/2016 87100 EKG, Interpretation Only Completed 10/15/2016 86629 Revascularization Acute Total/Subtotal Occlusion Completed 10/14/2016 53132 EKG, Interpretation Only Completed 10/12/2016 47990 Treadmill Interp/Report Only Completed 10/12/2016 53976 Stress Test Supervsn W/Out I/R Completed 10/11/2016 65522 Cardioversion Completed 10/11/2016 59183 Echocardiogram, Limited Study Completed 09/17/2016 99970 Mobile Cardiovascular Telemetry Over 24 HR Up To 30 Completed Days 09/12/2016 56713 EKG Tracing & Interpretation Completed 08/27/2016 59691 ECHO Transthorasic Realtime 2D W Doppler & Color Flow Completed Hosp 08/27/2016 76545 EKG, Interpretation Only Completed 08/27/2016 11863 Cardioversion Completed 08/26/2016 32679 EKG, Interpretation Only Completed 07/05/2016 00594 ECHO Transthorasic Realtime 2D W Doppler & Color Flow Completed Hosp 10/14/2015 43043 EKG Tracing & Interpretation Completed 08/13/2015 00934 EKG, Interpretation Only Completed 08/13/2015 61863 Cardioversion Completed 01/27/2015 50038 EKG Tracing & Interpretation Completed 12/28/2014 56972 EKG, Interpretation Only Completed 12/28/2014 90454 Cardioversion Completed 03/03/2014 22343 EKG Tracing & Interpretation Completed 01/26/2014 66711 EKG, Interpretation Only Completed 01/26/2014 94484 Cardioversion Completed 01/25/2014 00365 Cardioversion Completed 02/20/2013 56237 ECHO Transthoracic, Real-Time 2D With Doppler And Color Completed Flow 05/27/2012 38514 ECHO Transthoracic, Real-Time 2D With Doppler And Color Completed Flow 05/27/2012 02105 ECHO Transthoracic, Real-Time 2D With Doppler And Color Completed Flow 05/23/2012 23650 Holter Monitoring 24 HR New Completed 04/24/2012 76895 EKG Tracing & Interpretation Completed 01/10/2012 52452 RT & lt Cath W/Injx HRT Art&L Ventr Img S&I Completed 01/01/2012 28169 Carotid Doppler,Bilateral Completed 12/26/2011 02694 Stress Test Completed 04/01/2010 62971 Treadmill Interp/Report Only Completed 04/01/2010 38669 Stress Test Supervsn W/Out I/R Completed 04/21/2009 21904 EKG Tracing & Interpretation Completed 04/19/2009 84848754 Colonoscopy Completed 04/04/2009 94026 EKG, Interpretation Only Completed Encounters Type Date Location Provider Dx Diagnosis Office Visit 07/15/2018 [facility] Vikki Christo, PROCESSING OPERATOR I13.0 Hyp hrt & chr 9:00a Assoc,pc dimitrios dis w hrt Hospitalists fail and stg 1-4/unsp chr kdny N18.3 Chronic kidney disease, stage 3 (moderate) I47.2 Ventricular tachycardia I48.0 Paroxysmal atrial fibrillation [facility] I47.2 Ventricular 8:59a Asslo blutn M.D. tachycardia Hospitalists N18.3 Chronic kidney disease, stage 3 (moderate) I13.0 Hyp hrt & chr kdny dis w hrt fail and stg 1-4/unsp chr kdny Office Visit [facility] L02.91 Cutaneous 8:59a Assoclo M.D. abscess, Hospitalists unspecified R33.9 Retention of urine, unspecified I13.0 Hyp hrt & chr kdny dis w hrt fail and stg 1-4/unsp chr kdny N18.3 Chronic kidney disease, stage 3 (moderate) [facility] R33.9 Retention of 8:57a Asslo blunt M.D. urine, Hospitalists unspecified I13.0 Hyp hrt & chr kdny dis w hrt fail and stg 1-4/unsp chr kdny N18.3 Chronic kidney disease, stage 3 (moderate) I47.2 Ventricular tachycardia Office Visit 07/11/2018 8:56a [facility] Priti R33.9 Retention of Assoc,lo Keller, DO urine, Hospitalists unspecified L02.91 Cutaneous abscess, unspecified J96.01 Acute respiratory failure with hypoxia I13.0 Hyp hrt & chr kdny dis w hrt fail and stg 1-4/unsp chr kdny N18.3 Chronic kidney disease, stage 3 (moderate) Office Visit 07/11/2018 [facility] Erin Arreguin T81.41xD Infct fol a 7:56a For Infectious Bishop, PROCESSING OPERATOR proc, superfic Diseases incisional surgical site, subs N39.0 Urinary tract infection, site not specified B96.1 Klebsiella pneumoniae as the cause of diseases classd elswhr N18.3 Chronic kidney disease, stage 3 (moderate) Office Visit 07/10/2018 8:55a [facility] Sugey I47.2 Ventricular Assoc,lo Blackburn, tachycardia Hospitalists PROCESSING OPERATOR N18.3 Chronic kidney disease, stage 3 (moderate) I50.33 Acute on chronic diastolic (congestive) heart failure R33.9 Retention of urine, unspecified Office Visit 07/09/2018 [facility] T81.41xD Infct fol a 7:53a For Infectious MADY Bishop proc, superfic Diseases incisional surgical site, subs D72.829 Elevated white blood cell count, unspecified N39.0 Urinary tract infection, site not specified B96.1 Klebsiella pneumoniae as the cause of diseases classd elswhr N18.3 Chronic kidney disease, stage 3 (moderate) Office Visit 07/08/2018 8:54a [facility] Sugey I47.2 [facility] Hospitalists PROCESSING OPERATOR I50.33 Acute on chronic diastolic (congestive) heart failure I48.0 Paroxysmal atrial fibrillation N18.4 Chronic kidney disease, stage 4 (severe) Office Visit 07/08/2018 [facility] T81.41xA Infct fol a 7:48a For Infectious MADY Bishop proc, superfic Diseases incisional surgical site, init N39.0 Urinary tract infection, site not specified B96.1 Klebsiella pneumoniae as the cause of diseases classd elswhr N18.3 Chronic kidney disease, stage 3 (moderate) Z96.642 Presence of left artificial hip joint Office Visit 07/07/2018 8:53a [facility] Sugey I47.2 Ventricular Assoc, Geraldo Blackburn, tachycardia Hospitalists PROCESSING OPERATOR I50.33 Acute on chronic diastolic (congestive) heart failure I48.0 Paroxysmal atrial fibrillation N18.4 Chronic kidney disease, stage 4 (severe) Office Visit 07/06/2018 8:53a [place] Walt Rosenthal N17.9 Acute kidney Assoc,lo Cowan M.D. failure, Hospitalists unspecified I47.2 Ventricular tachycardia I11.0 Hypertensive heart disease with heart failure I50.33 Acute on chronic diastolic (congestive) heart failure I48.91 Unspecified atrial fibrillation Office Visit 07/05/2018 8:52a [place] Walt Rosenthal N17.9 Acute kidney Assoc,lo Cowan M.D. failure, Hospitalists unspecified E87.1 Hypo-osmolality and hyponatremia I50.31 Acute diastolic (congestive) heart failure I11.0 Hypertensive heart disease with heart failure Office Visit 07/05/2018 4:26p [facility] Carlos A Waters I47.2 Ventricular Of Nathaniel Luz M.D., tachycardia FACC, FASNC Z98.61 Coronary angioplasty status Z95.2 Presence of prosthetic heart valve Office Visit 07/04/2018 [facility] Galo E87.1 Hypo-osmolality and 8:51a Assoclo M.D. hyponatremia Hospitalists N17.9 Acute kidney failure, unspecified I48.91 Unspecified atrial fibrillation Office Visit 07/03/2018 8:50a [facility] Charlette N17.9 Acute kidney Assoc,lo Weems, DO failure, Hospitalists unspecified D72.829 Elevated white blood cell count, unspecified R53.1 Weakness R05 Cough Office Visit 06/10/2018 [facility] I48.91 Unspecified atrial 4:48p Asslo blunt M.D. fibrillation Hospitalists E03.9 Hypothyroidism, unspecified D64.9 Anemia, unspecified Office Visit 06/09/2018 [facility] I48.91 Unspecified atrial 9:14a Asslo blunt M.D. fibrillation Hospitalists E03.9 Hypothyroidism, unspecified D64.9 Anemia, unspecified Office Visit 06/08/2018 1:34p [facility] Conchita Thompson I48.0 Paroxysmal atrial Of [employer] Advisory Services Manager M.D. 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 atrial Hospitalists fibrillation D63.1 Anemia in chronic kidney disease N18.3 Chronic kidney disease, stage 3 (moderate) Office Visit 06/05/2018 9:11a Intensivists Dannie Sherman, I48.0 Paroxysmal atrial M.D. fibrillation Office Visit 06/05/2018 10:28a [facility] Jesus Alberto S. 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 I48.91 Unspecified atrial Of Healthcare Advisory Services Manager Foster, N.P. fibrillation I10 Essential (primary) hypertension R60.9 Edema, unspecified I50.32 Chronic diastolic (congestive) heart failure Office Visit 05/27/2018 1:00p Orthopedic Aaron F S72.012D Unsp intracap Services Of MD Alex fx left femur, C.M.A. subs for clos fx w routn heal S52.514D Nondisp fx of r radial styloid pro, 7thD Office Visit [facility]012[facility] Unsp intracapsular 9:31a lo Murcia M.D. fracture of left Hospitalists femur, init for clos fx D62 Acute posthemorrhagic anemia I48.91 Unspecified atrial fibrillation I10 Essential (primary) hypertension W19.xxxA Unspecified fall, initial encounter Office Visit 05/12/2018 [facility] Carson Lopez D62 Acute 9:30a Asslo blunt MD posthemorrhagic Hospitalists anemia R65.10 Sirs of non-infectious origin w/o acute organ dysfunction N17.9 Acute kidney failure, unspecified I48.91 Unspecified atrial fibrillation S72.002A Fracture of unsp part of neck of left femur, init M79.669 Pain in unspecified lower leg I10 Essential (primary) hypertension Z95.5 Presence of coronary angioplasty implant and graft Office Visit 05/11/2018 [place] [id number] Acute 9:30a lo Murcia MD posthemorrhagic Hospitalists anemia R65.10 Sirs of non-infectious origin w/o acute organ dysfunction N17.9 Acute kidney failure, unspecified S72.002A Fracture of unsp part of neck of left femur, init I48.91 Unspecified atrial fibrillation I10 Essential (primary) hypertension Z95.5 Presence of coronary angioplasty implant and graft Office Visit 05/10/2018 [place] [id number] Acute 9:29a lo Murcia MD posthemorrhagic Hospitalists anemia R65.10 Sirs of non-infectious origin w/o acute organ dysfunction N17.9 Acute kidney failure, unspecified I48.91 Unspecified atrial fibrillation S72.002A Fracture of unsp part of neck of left femur, init I10 Essential (primary) hypertension Z95.5 Presence of coronary angioplasty implant and graft Office Visit 05/09/2018 [facility] R65.10 Sirs of 9:29a lo Murcia MD non-infectious Hospitalists origin w/o acute organ dysfunction N17.9 Acute kidney failure, unspecified D62 Acute posthemorrhagic anemia I48.91 Unspecified atrial fibrillation S72.002A Fracture of unsp part of neck of left femur, init I10 Essential (primary) hypertension Z95.5 Presence of coronary angioplasty implant and graft Office Visit 05/08/2018 [facility] R65.10 Sirs of 9:29a Assoclo D.O. non-infectious Hospitalists origin w/o acute organ dysfunction N17.9 Acute kidney failure, unspecified D62 Acute posthemorrhagic anemia S72.002A Fracture of unsp part of neck of left femur, init I48.91 Unspecified atrial fibrillation I10 Essential (primary) hypertension Z95.5 Presence of coronary angioplasty implant and graft Office Visit 05/07/2018 [facility] Olga Lidia R65.10 Sirs of 9:28a Assoc,pc Melissa Ewing non-infectious Hospitalists origin w/o acute organ dysfunction N17.9 Acute kidney failure, unspecified S72.002A Fracture of unsp part of neck of left femur, init I48.91 Unspecified atrial fibrillation I10 Essential (primary) hypertension Z95.5 Presence of coronary angioplasty implant and graft Office Visit 05/06/2018 [facility] Rubina R65.11 Sirs of 9:26a Assoc,lo Ireland M.D. non-infectious Hospitalists origin w acute organ dysfunction N17.9 Acute kidney failure, unspecified S72.002A Fracture of unsp part of neck of left femur, init I48.91 Unspecified atrial fibrillation Z95.5 Presence of coronary angioplasty implant and graft Office Visit 05/05/2018 9:26a [facility] Priti S72.002A Fracture of Assoc,lo Keller, unsp part of Hospitalists neck of left [...] of left femur, init Office Visit 05/04/2018 [facility] Charlette S72.012A Unsp intracapsular 9:23a Assoc,lo Weems, fracture of left Hospitalists femur, init for clos fx I48.0 Paroxysmal atrial fibrillation W19.xxxA Unspecified fall, initial encounter Office 05/04/2018 [facility] Marianne S72.002A Fracture of Visit 10:44a Of Tal Dailey M.D. 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 I48.0 Paroxysmal atrial Of Nathaniel Cisneros M.D. 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 hemorrhoids Office Visit 06/20/2017 10:45a [facility] Talib Medrano I48.0 Paroxysmal atrial Of Nathaniel Cisneros M.D. fibrillation I25.10 Athscl heart disease of [place] coronary artery w/o ang pctrs Office Visit 04/10/2017 10:30a [facility] Talib Medrano I25.10 Athscl heart Of Nathaniel Cisneros M.D. disease of [place] coronary artery w/o ang pctrs I48.0 Paroxysmal atrial fibrillation Office Visit 12/05/2016 10:30a [facility] Talib Medrano I25.10 Athscl heart Of Nathaniel Cisneros M.D. disease of [place] coronary artery w/o ang pctrs I10 Essential (primary) hypertension I48.0 Paroxysmal atrial fibrillation Z95.2 Presence of prosthetic heart valve Office Visit 10/23/2016 2:15p [facility] Talib Medrano I25.10 Athscl heart Of [facility] AT [facility] Sandoval Cisneros disease of [place] coronary artery w/o ang pctrs I10 Essential (primary) hypertension I48.0 Paroxysmal atrial fibrillation Z95.2 Presence of prosthetic heart valve I25.2 Old myocardial infarction Office Visit 10/17/2016 [facility] I48.91 Unspecified atrial 8:26a Asslo blunt M.D. fibrillation Hospitalists E78.5 Hyperlipidemia, unspecified I25.10 Athscl heart disease of [place] coronary artery w/o ang pctrs I10 Essential (primary) hypertension Office Visit 10/16/2016 2:56p [facility] Harvey Saldana I49.5 Sick sinus Mauser, M.D. syndrome I25.10 Athscl heart disease of [place] coronary artery w/o ang pctrs I10 Essential (primary) hypertension Office Visit 10/16/2016 9:58a [facility] Nemo Harris I21.4 Non-St elevation Of Healthcare Advisory Services Manager AT [facility] MD Sourav, (Nstemi) [facility], FSCAI myocardial infarction I25.10 Athscl heart disease of [place] coronary artery w/o ang pctrs Office Visit 10/16/2016 [facility] Galo I48.91 Unspecified atrial 8:25a Assoc,lo Cowan M.D. fibrillation Hospitalists I25.10 Athscl heart disease of [place] coronary artery w/o ang pctrs E78.5 Hyperlipidemia, unspecified I10 Essential (primary) hypertension Office Visit 10/15/2016 [facility] Galo I48.91 Unspecified atrial 8:25a Assoc,lo Cowan M.D. fibrillation Hospitalists I25.10 Athscl heart disease of [place] coronary artery w/o ang pctrs E78.5 Hyperlipidemia, unspecified I10 Essential (primary) hypertension Office Visit 10/14/2016 [facility] Galo I48.91 Unspecified atrial 8:24a Assoc,lo Cowan M.D. fibrillation Hospitalists I25.10 Athscl heart disease of [place] coronary artery w/o ang pctrs E78.5 Hyperlipidemia, unspecified Office Visit 10/14/2016 2:53p [facility] Harvey Sadlana I48.0 Paroxysmal atrial Mauser, M.D. fibrillation I25.10 Athscl heart disease of [place] coronary artery w/o ang pctrs I21.4 Non-St elevation (Nstemi) myocardial infarction I49.5 Sick sinus syndrome Office Visit 10/13/2016 2:52p [facility] Harvey Saldana I48.0 Paroxysmal atrial Mauser, M.D. fibrillation I21.4 Non-St elevation (Nstemi) myocardial infarction I49.5 Sick sinus syndrome Office Visit 10/13/2016 8:24a [facility] Patricia June I48.91 Unspecified atrial Assoc,pc N.P. fibrillation Hospitalists I25.10 Athscl heart disease of [place] coronary artery w/o ang pctrs E78.5 Hyperlipidemia, unspecified I10 Essential (primary) hypertension Office Visit 10/12/2016 2:48p [facility] Harvey F. I48.0 Paroxysmal atrial Mauser, M.D. fibrillation I49.5 Sick sinus syndrome I21.4 Non-St elevation (Nstemi) myocardial infarction R94.31 Abnormal electrocardiogram [ECG] [EKG] Office Visit 10/12/2016 [facility] Olga Lidia I48.91 Unspecified atrial 8:23a Assoc,lo Ewing D.O. fibrillation Hospitalists I25.10 Athscl heart disease of [place] coronary artery w/o ang pctrs E78.5 Hyperlipidemia, unspecified I10 Essential (primary) hypertension Office Visit 10/11/2016 [facility] Leonardo I48.91 Unspecified 8:22a Assoc,lo Jensen N.PCasey atrial Hospitalists fibrillation E78.5 Hyperlipidemia, unspecified I25.10 Athscl heart disease of [place] coronary artery w/o ang pctrs I10 Essential (primary) hypertension Office Visit 10/11/2016 9:56a [facility] Harvey F. I10 Essential (primary) Mauser, M.D. hypertension I48.0 Paroxysmal atrial fibrillation I49.5 Sick sinus syndrome Z95.2 Presence of prosthetic heart valve R42 Dizziness and giddiness Office Visit 10/11/2016 2:54p [facility] Harvey FCasey I48.0 Paroxysmal atrial Mauser, M.D. fibrillation I49.5 Sick sinus syndrome Z95.2 Presence of prosthetic heart valve I10 Essential (primary) hypertension Office Visit 09/12/2016 8:30a [facility] Talib Medrano I48.0 Paroxysmal atrial Of Healthcare Advisory Services Manager Brand, M.D. fibrillation I10 Essential (primary) hypertension Z95.2 Presence of prosthetic heart valve Office 08/27/2016 [facility] Kushal I48.91 Unspecified Visit 2:01p Assoc,pc KIRSTEN Montero atrial Hospitalists fibrillation R74.8 Abnormal levels of other serum enzymes Z95.2 Presence of prosthetic heart valve I10 Essential (primary) hypertension Office Visit 08/26/2016 10:02a [facility] Harvey FCasey I48.0 Paroxysmal atrial Mauser, M.D. fibrillation I10 Essential (primary) hypertension R79.89 Other specified abnormal findings of blood chemistry Office Visit 08/26/2016 2:00p [facility] Patriciaglory June, I48.91 Unspecified atrial Assoc,pc N.PCasey fibrillation Hospitalists R74.8 Abnormal levels of other serum enzymes Z95.2 Presence of prosthetic heart valve I10 Essential (primary) hypertension Office Visit 07/04/2016 2:37p [facility] Brent Lincoln, R55 Syncope and Assoc,lo Nick collapse Hospitalists I48.91 Unspecified atrial fibrillation I25.10 Athscl heart disease of [place] coronary artery w/o ang pctrs I10 Essential (primary) hypertension Office Visit 02/08/2016 1:30p [facility] Hector Caputo, M25.562 Pain in left Of C.M.A. M.D. knee M17.0 Bilateral primary osteoarthritis of knee Office Visit 10/14/2015 11:45a [facility] Talib Medrano I48.1 Persistent atrial Of Nathaniel Cisneros M.D. fibrillation I10 Essential (primary) hypertension I35.0 Nonrheumatic aortic (valve) stenosis Z95.2 Presence of prosthetic heart valve Office Visit 08/13/2015 12:49p [facility] Talib D. I48.1 Persistent atrial Of Nathaniel Cisneros M.D. 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 I48.0 Paroxysmal atrial Of Nathaniel Cisneros M.D. fibrillation Z95.2 Presence of prosthetic heart valve R94.31 Abnormal electrocardiogram [ECG] [EKG] Office Visit 12/29/2014 3:53p [facility] Nicole Guerra, R42 Dizziness and Assoc,lo bravo Hospitalists I48.91 Unspecified atrial fibrillation E78.2 Mixed hyperlipidemia I10 Essential (primary) hypertension Office Visit 12/28/2014 3:52p [facility] Leonardo Jensen, R42 Dizziness and Assoc,pc NRoslyn bravo Hospitalists I48.91 Unspecified atrial fibrillation I10 Essential (primary) hypertension E78.2 Mixed hyperlipidemia Office Visit 08/13/2014 1:30p [facility] Talib Marcela 427.31 Atrial Of Nathaniel Sandoval Cisneros Fibrillation 424.1 Aortic Valve Disorder Office Visit 03/03/2014 9:45a [facility] Talib D. 427.31 Atrial Of Nathaniel CisnerosSandoval Fibrillation 424.1 Aortic Valve Disorder Office Visit 01/26/2014 11:20a [facility] Talib D. 427.31 Atrial Of Nathaniel CisnerosSandoval Fibrillation Office Visit 01/22/2014 2:15p [facility] Talib Marcela 424.1 Aortic Valve Of Nathaniel CisnerosSandoval Disorder 427.31 Atrial Fibrillation 401.9 Hypertension Unspec Office Visit 03/19/2013 10:00a [facility] Talib D. 424.1 Aortic Valve Of Nathaniel Sandoval Cisneros Disorder 427.31 Atrial Fibrillation 427.9 Cardiac Dysrhythmia Unspec Office Visit 11/06/2012 1:00p [facility] Talib D. 424.1 Aortic Valve Of Nathaniel Sandoval Cisneros Disorder 427.31 Atrial Fibrillation 401.9 Hypertension Unspec Office Visit 05/29/2012 1:45p [facility] Talib D. 424.1 Aortic Valve Of Nathaniel CisnerosSandoval Disorder 427.31 Atrial Fibrillation Office Visit 04/24/2012 12:00p [facility] Talib D. 424.1 Aortic Valve Of Nathaniel CisnerosSandoval Disorder 427.31 Atrial Fibrillation Office Visit 01/23/2012 11:30a Perico Medrano 786.09 Dyspnea & Cardiology Of Sandoval Cisneros Respiratory Healthcare Advisory Services Manager Abnormalities Other 424.1 Aortic Valve Disorder Office Visit 01/09/2012 8:00a [facility] Talib Medrano 786.50 Pain Chest Of Healthcare Advisory Services Manager Sandoval Cisneros Unspec 424.1 Aortic Valve Disorder Office 04/02/2010 Lou Castrejon S. 794.31 Electrocardiogram Visit 9:17a [facility] Sandoval Lees (ECG) (EKG) Abnormal 427.31 Atrial Fibrillation 424.1 Aortic Valve Disorder 401.1 Hypertension Benign Office Visit 04/01/2010 9:17a [place] Fran Castrejon S. 786.50 Pain Chest Sandoval Lees Unspec 427.31 Atrial Fibrillation 424.1 Aortic Valve Disorder 401.1 Hypertension Benign Office Visit 07/22/2009 2:00p DO Not Use Healthcare Advisory Services Manager Stevanovic, 401.1 Hypertension AT Becky Jain M.D. Benign 272.4 Hyperlipidemia Other Unspec 427.9 Cardiac Dysrhythmia Unspec 455.2 Hemorrhoids Internal W/ Other Complications 396.9 Mitral & Aortic Valve Diseases Unspec 424.1 Aortic Valve Disorder 565.0 Anal Fissure 281.9 Anemia Deficiency Unspec Office Visit 04/21/2009 DO Not Use Healthcare Advisory Services Manager Stevanovic, 455.2 Hemorrhoids 10:00a AT Becky Jain M.D. Internal W/ Other Complications 401.1 Hypertension Benign 272.4 Hyperlipidemia Other Unspec 427.9 Cardiac Dysrhythmia Unspec 396.9 Mitral & Aortic Valve Diseases Unspec 424.1 Aortic Valve Disorder Office Visit 03/29/2009 3:40p DO Not Use Healthcare Advisory Services Manager Stevanovic, 565.0 Anal Fissure AT Becky Jain M.D. Plan of Treatment Future Appointment(s):08/07/2018 2:15 pm - Aaron Johnson MD at [facility].07/22/2018 - Aaron Johnson MDT81.41xD Infection following a procedure, superficial incisional surgFollow up:Follow up : 2 ovousW43.012D Unspecified intracapsular fracture of left femur, subsequent
[2018-08-05 14:18] LABS: ABS Eosinophils 0.1 10^3/ul (0-0.6); ABS Lymphocytes 0.8 10^3/ul (1.0-4.8); ABS Monocytes 0.8 10^3/ul (0-0.8); ABS Neutrophils 4.6 10^3/ul (1.5-7.7); Eosinophil % 1.3 %; Hematocrit 29 % (35-47); Hemoglobin 9.8 g/dL (12.0-16.0); Lymphocyte % 12.8 %; Mean Corpuscular HGB Conc 34 g/dL (31-36); Mean Corpuscular Hemoglobin 31 pg (27-31); Mean Corpuscular Volume 93 fL (80-97); Mean Platelet Volume 6.5 fL (7.4-10.4); Platelet Count 229 10^3/uL (150-450); Red Blood Count 3.12 10^6 /uL (3.70-4.87); Red Cell Distribution Width 17 % (10.5-15); White Blood Count 6.3 10^3/uL (3.5-10.8)
[2018-08-05 14:25] LABS: INR 1.85 (0.82-1.09)
[2018-08-05 14:50] LABS: Troponin I 0.05 ng/mL (<0.04)
[2018-08-05 15:01] LABS: ALT 15 U/L (7-52); AST 16 U/L (13-39); Albumin 3.5 g/dL (3.2-5.2); Albumin/Globulin Ratio 1.3 (1-3); Alkaline Phosphatase 81 U/L (34-104); Anion Gap 10 mmol/L (2-11); Blood Urea Nitrogen 18 mg/dL (6-24); CO2 Carbon Dioxide 24 mmol/L (22-32); Calcium 9.2 mg/dL (8.6-10.3); Chloride 90 mmol/L (101-111); EGFR African American 36.1 (>60); EGFR Non-African American 29.8 (>60); Globulin 2.8 g/dL (2-4); Glucose 121 mg/dL (70-100); Magnesium 1.6 mg/dL (1.9-2.7); Potassium 3.9 mmol/L (3.5-5.0); Sodium 124 mmol/L (135-145); Total Protein 6.3 g/dL (6.4-8.9)
--- NOTE | 2018-08-05 15:05 | ED ---
Palpitations / Dysrhythmia - HPI Summary HPI Summary: Pt is an 87 y/o F presenting to the ED with a chief complaint of heart palpitations onset a couple of days ago. She states she has been experiencing heart palpitations accompanied by shortness of breath. She denies chest pain. Her hx includes AFib, a valve replacement and a stent, as well as being on Eliquis. - History of Current Complaint Chief Complaint: EDDysrhythmPalp Time Seen by Provider: 08/05/18 14:55 Hx Obtained From: Patient Onset/Duration: Gradual Onset, Lasting Days, Still Present Timing: Constant Severity Initially: Moderate Severity Currently: Moderate Character: Fast, Irregular Aggravating: Nothing Alleviating: Nothing Associated Signs & Symptoms: Shortness of Breath - Allergy/Home Medications Allergies/Adverse Reactions: Allergies Allergy/AdvReac Type Severity Reaction Status Date / Time No Known Allergies Allergy Verified 07/03/18 18:25 Home Medications: Home Medications Amiodarone TAB* [Cordarone TAB*] 200 mg PO EVERY OTHER DAY 08/05/18 [History Confirmed 08/05/18] Amiodarone TAB* [Cordarone TAB*] 300 mg PO EVERY OTHER DAY 08/05/18 [History Confirmed 08/05/18] PMH/Surg Hx/FS Hx/Imm Hx Previously Healthy: No Endocrine/Hematology History: Reports: Hx Anticoagulant Therapy, Hx Anemia Denies: Hx Diabetes, Hx Thyroid Disease Cardiovascular History: Reports: Hx Angina, Hx Atrial Fibrillation, Hx Congestive Heart Failure, Hx Coronary Artery Disease, Hx Hypercholesterolemia, Hx Hypertension, Hx Myocardial Infarction, Hx Peripheral Vascular Disease, Hx Syncope, Hx Valvular Heart Disease - s/p AVR, Other Cardiovascular Problems/ Disorders - aortic valve replacement 2012, S/P cardioversion 05/30/18 Denies: Hx Pacemaker/ICD Respiratory History: Reports: Hx Chronic Bronchitis Denies: Hx Asthma, Hx Chronic Obstructive Pulmonary Disease (COPD) GI History: Reports: Hx Irritable Bowel, Other GI Disorders - constipation Denies: Hx Gastrointestinal Bleed, Hx Hiatal Hernia, Hx Ulcer History: Reports: Other Problems/Disorders - musa placed in [facility] Denies: Hx Kidney Stones, Hx Renal Disease Musculoskeletal History: Reports: Hx Arthritis, Hx Back Problems, Hx Orthopedic Injury, Other Musculoskeletal History - HAMMER TOE LEFT SECOND TOE Denies: Hx Osteoporosis Sensory History: Reports: Hx Cataracts - LENS IMPLANTS 2011, Hx Contacts or Glasses - glasses, Hx Vision Problem, Other Sensory Impairments - dry eye Denies: Hx Hearing Aid Opthamlomology History: Reports: Hx Cataracts - LENS IMPLANTS 2012, Hx Contacts or Glasses - glasses, Hx Vision Problem, Other Sensory Impairments - dry eye Neurological History: Denies: Hx Dementia, Hx Transient Ischemic Attacks (TIA) Psychiatric History: Denies: Hx Panic Disorder - Cancer History Hx Chemotherapy: No Hx Radiation Therapy: No - Surgical History Surgery Procedure, Year, and Place: AORTIC valve replacement, 2013,. , 1964, [facility]. Cataract surgery, 2011, [facility] [place], [facility] LEFT FOOT. cardiac catherization with cardiac stent to RCA October 2016. cardioversions 2014,2015, 08/2016, 05/30/18. hip surgery 2019 Hx Anesthesia Reactions: No - Immunization History Date of Influenza Vaccine: 12/25 Infectious Disease History: No Infectious Disease History: Denies: Hx Clostridium Difficile, Hx Hepatitis, Hx Human Immunodeficiency Virus (HIV), Hx of Known/Suspected MRSA, Hx Shingles, Hx Tuberculosis, Hx Known/ Suspected VRE, Hx Known/Suspected VRSA, History Other Infectious Disease, Traveled Outside the [place] in Last 30 Days - Family History Known Family History: Positive: Hypertension - Social History Alcohol Use: None Hx Substance Use: No Substance Use Type: Reports: None Hx Tobacco Use: No Smoking Status (MU): Never Smoked Tobacco Have You Smoked in the Last Year: No Review of Systems Positive: Palpitations. Negative: Chest Pain Positive: Shortness Of Breath All Other Systems Reviewed And Are Negative: Yes Physical Exam - Summary Physical Exam Summary: Appearance: Well appearing, no pain distress Skin: warm, dry, pale Head/face: normal Eyes: EOMI, RC ENT: normal Neck: supple, non-tender Respiratory: CTA, breath sounds present Cardiovascular: Tachycardia, irregularly irregular, pulses symmetrical Abdomen: non-tender, soft Musculoskeletal: normal, strength/ROM intact Neuro: normal, sensory motor intact, A&Ox3 Triage Information Reviewed: Yes Vital Signs On Initial Exam: Initial Vitals Temp Pulse Resp BP Pulse Ox 98.2 F 133 20 136/98 97 08/05/18 13:44 08/05/18 13:44 08/05/18 13:44 08/05/18 13:44 08/05/18 13:44 Vital Signs Reviewed: Yes Diagnostics - Vital Signs Vital Signs Temp Pulse Resp BP Pulse Ox 08/05/18 13:44 98.2 F 133 20 136/98 97 - Laboratory Lab Results: Lab Results 08/05/18 08/05/18 08/05/18 Range/Units 14:04 14:04 14:04 WBC 6.3 (3.5-10.8) 10^3/uL RBC 3.12 L (3.70-4.87) 10^6 /uL Hgb 9.8 L (12.0-16.0) g/dL Hct 29 L (35-47) % MCV 93 (80-97) fL MCH 31 (27-31) pg MCHC 34 (31-36) g/dL RDW 17 H (10.5-15) % Plt Count 229 (150-450) 10^3/uL MPV 6.5 L (7.4-10.4) fL Neut % (Auto) 73.1 % Lymph % (Auto) 12.8 % Heard % (Auto) 12.4 % Eos % (Auto) 1.3 % Baso % (Auto) 0.4 % Absolute Neuts (auto) 4.6 (1.5-7.7) 10^3/ul Absolute Lymphs (auto) 0.8 L (1.0-4.8) 10^3/ul Absolute Monos (auto) 0.8 (0-0.8) 10^3/ul Absolute Eos (auto) 0.1 (0-0.6) 10^3/ul Absolute Basos (auto) 0.0 (0-0.2) 10^3/ul Absolute Nucleated RBC 0.0 10^3/ul Nucleated RBC % 0.0 INR (Anticoag Therapy) 1.85 H (0.82-1.09) Sodium 124 L (135-145) mmol/L Potassium 3.9 (3.5-5.0) mmol/L Chloride 90 L (101-111) mmol/L Carbon Dioxide 24 (22-32) mmol/L Anion Gap 10 (2-11) mmol/L BUN 18 (6-24) mg/dL Creatinine 1.63 H (0.51-0.95) mg/dL Est GFR ( Amer) 36.1 (>60) Est GFR (Non-Af Amer) 29.8 (>60) BUN/Creatinine Ratio 11.0 (8-20) Glucose 121 H (70-100) mg/dL Lactic Acid (0.5-2.0) mmol/L Calcium 9.2 (8.6-10.3) mg/dL Magnesium 1.6 L (1.9-2.7) mg/dL Total Bilirubin 0.50 (0.2-1.0) mg/dL AST 16 (13-39) U/L ALT 15 (7-52) U/L Alkaline Phosphatase 81 (34-104) U/L Troponin I 0.05 H* (<0.04) ng/mL Total Protein 6.3 L (6.4-8.9) g/dL Albumin 3.5 (3.2-5.2) g/dL Globulin 2.8 (2-4) g/dL Albumin/Globulin Ratio 1.3 (1-3) TSH Pending 08/05/18 Range/Units 14:04 WBC (3.5-10.8) 10^3/uL RBC (3.70-4.87) 10^6 /uL Hgb (12.0-16.0) g/dL Hct (35-47) % MCV (80-97) fL MCH (27-31) pg MCHC (31-36) g/dL RDW (10.5-15) % Plt Count (150-450) 10^3/uL MPV (7.4-10.4) fL Neut % (Auto) % Lymph % (Auto) % Heard % (Auto) % Eos % (Auto) % Baso % (Auto) % Absolute Neuts (auto) (1.5-7.7) 10^3/ul Absolute Lymphs (auto) (1.0-4.8) 10^3/ul Absolute Monos (auto) (0-0.8) 10^3/ul Absolute Eos (auto) (0-0.6) 10^3/ul Absolute Basos (auto) (0-0.2) 10^3/ul Absolute Nucleated RBC 10^3/ul Nucleated RBC % INR (Anticoag Therapy) (0.82-1.09) Sodium (135-145) mmol/L Potassium (3.5-5.0) mmol/L Chloride (101-111) mmol/L Carbon Dioxide (22-32) mmol/L Anion Gap (2-11) mmol/L BUN (6-24) mg/dL Creatinine (0.51-0.95) mg/dL Est GFR ( Amer) (>60) Est GFR (Non-Af Amer) (>60) BUN/Creatinine Ratio (8-20) Glucose (70-100) mg/dL Lactic Acid 1.1 (0.5-2.0) mmol/L Calcium (8.6-10.3) mg/dL Magnesium (1.9-2.7) mg/dL Total Bilirubin (0.2-1.0) mg/dL AST (13-39) U/L ALT (7-52) U/L Alkaline Phosphatase (34-104) U/L Troponin I (<0.04) ng/mL Total Protein (6.4-8.9) g/dL Albumin (3.2-5.2) g/dL Globulin (2-4) g/dL Albumin/Globulin Ratio (1-3) TSH Result Diagrams: 08/05/18 14:04 08/05/18 14:04 Lab Statement: Any lab studies that have been ordered have been reviewed, and results considered in the medical decision making process. - Radiology CXR Radiology Interpretation Completed By: Radiologist Summary of Radiographic Findings: In the correct clinical setting chest x-ray findings could be compatible with mild cardiogenic vascular congestion. ED physician has reviewed this report. - EKG 1355 Cardiac Rate: Other Rate - AFib 131bpm EKG Rhythm: Atrial Fibrillation ST Segment: Normal Ectopy: None Summary of EKG Findings: EKG at 1355 shows AFib with RVR at 131bpm with no STEMI. Course/Dx - Course Course Of Treatment: Pt is an 87 y/o F presenting to the ED with a chief complaint of heart palpitations onset a couple of days ago. She states she has been experiencing heart palpitations accompanied by shortness of breath. She denies chest pain. EKG at 1355 shows AFib with RVR at 131bpm with no STEMI. CXR shows: In the correct clinical setting chest x-ray findings could be compatible with mild cardiogenic vascular congestion. I spoke with Dr. Martin who will be admitting the pt to [facility] [place] with a dx of AFib with RVR and elevated troponins. - Diagnoses Differential Diagnosis/HQI/PQRI: Positive: AV Block, Congestive Heart Failure Provider Diagnoses: Atrial fibrillation with rapid ventricular response, Elevated troponin, Dyspnea - Critical Care Time Critical Care Time: 30-74 min Discharge - Sign-Out/Discharge Documenting (check all that apply): Patient Departure - Discharge Plan Condition: Stable Disposition: ADMITTED TO [facility] Referrals: Susy Quevedo MD [Primary Care Provider] - - Billing Disposition and Condition Condition: STABLE Disposition: Admitted to [facility] - Attestation Statements Document Initiated by Scribe: Yes Documenting Scribe: Charlette Larson Provider For Whom Billibderick is Documenting (Include Credential): Vaughn Babb MD. Scribe Attestation: Charlette Scott scribed for Vaughn Babb MD. on 08/05/18 at 1619. Scribe Documentation Reviewed: Yes Provider Attestation: The documentation as recorded by the [email or web address] accurately reflects the service I personally performed and the decisions made by Vaughn leblanc MD. Status of Scribe Document: Viewed Consult Consult: [id number] - I spoke with Dr. Martin who will be accepting the pt to [facility] [place] with dx of AFib with RVR and elevated troponin.
[2018-08-05 15:09] LABS: TSH (Thyroid Stimulating Horm) 4.26 mcIU/mL (0.34-5.60)
[2018-08-05] MEDS ORDERED: Diltiazem IV push/loading dose 5 MG/ML 5 ML vial (25 mg) IV SLOW PU ONE (15:09)
[2018-08-05] MEDS ORDERED: Magnesium Sulfate IV* 3 GM in NS 0.9% 100 ML* 100 ML IVPB ONE (16:47)
[2018-08-05] MEDS ORDERED: Diltiazem IV VIAL* 125 MG in NS 0.9% 100 ML* 100 ML IVPB ONE (17:37)
[2018-08-05] MEDS ORDERED: Nitroglycerin TAB 0.4 MG* 0.4 MG TAB SL PRN (17:38)
[2018-08-05] MEDS ORDERED: Furosemide IV* 10 MG/ML 2 ML VIAL (20 MG) IV ONE (17:42)
[2018-08-05 18:41] LABS: Urine Appearance Clear; Urine Bacteria Absent (Absent); Urine Bilirubin Negative (Negative); Urine Blood Negative (Negative); Urine Color Yellow; Urine Glucose Negative (Negative); Urine Ketones Negative (Negative); Urine Nitrite Negative (Negative); Urine Protein Negative (Negative); Urine Red Blood Cell Absent (Absent); Urine Specific Gravity 1.005 (1.010-1.030); Urine Urobilinogen Negative (Negative); Urine White Blood Cell Trace(0-5/hpf) (Absent)
--- NOTE | 2018-08-05 19:40 | HP ---
CC: Dr. Quevedo; Dr. Cisneros* HISTORY AND PHYSICAL: DATE OF ADMISSION: 08/05/18 PRIMARY CARE PROVIDER: Dr. Quevedo. LITHOGRAPHIC PLATEMAKER: Dr. Cisneros ATTENDING.PHYSICIAN: Dr. Martin* (dictated by KIRSTEN Mae) CHIEF COMPLAINT: 1. Heart palpitations. 2. Shortness of breath. HISTORY OF PRESENT ILLNESS: Ms. Sherwood is an 87-year-old female with a past medical history of atrial fibrillation, coronary artery disease with RCA stenting in 2016, hypertension, hyperlipidemia, atrial fibrillation with last cardioversion May 2018, CHF with ejection fraction of 55% to 60% June 2018, who presented to the ER today with complaints of palpitations, shortness of breath, dyspnea on exertion and weakness. She states that this started approximately 2 days ago. She has a history of atrial fibrillation. She can typically feel herself going in and out of atrial fibrillation, which is what she states she feels like now. Her last cardioversion was May 2018. She notes that she has come to the hospital for this numerous times and typically requires cardioversion as medical management often fails. She notes that she drinks 64 ounces of fluid per day. She denies missing any medications, although she does note that she missed her spironolactone last Saturday. She again complains of palpitations, dizziness, shortness of breath, dyspnea on exertion, weakness. She notes diaphoresis with exertion and intermittent dizziness with exertion. She denies shortness of breath with lying flat. She denies chest pain, fever, cough. While in the ER, the patient received IV push, 10 diltiazem. She responded to this with lowered heart rate but then went back up into the 120s to 130s. She also received blood work and chest x-ray and EKG. Hospitalist team was asked to evaluate the patient for admission. PAST MEDICAL HISTORY: 1. Atrial fibrillation, most recent cardioversion May 2018. 2. CHF with preserved ejection fraction. 3. Hypertension. 4. Hyperlipidemia. 5. Coronary artery disease with history of CO, RCA stent October 2016. 6. Hypothyroidism. 7. Peripheral vascular disease. 8. COPD. 9. Valvular heart disease. 10. IBS with constipation. 11. Osteoarthritis. 12. Anemia. PAST SURGICAL HISTORY: 1. Aortic valve replacement 2012. 2. Left hip May 2018 with revision July 2018. 3. Heart cath with stenting of the RCA October 2016. 4. Multiple cardioversions. 5. Cataracts. 6. Lens implant 2011. 7. 1963. HOME MEDICATIONS: 1. Acetaminophen 650 mg p.o. q.8 hours p.r.n. pain. 2. Amiodarone 300 mg, 200 mg alternating every other day. 3. Apixaban 2.5 mg p.o. b.i.d. 4. Aspirin EC 81 mg p.o. q.a.m. 5. Atorvastatin 40 mg p.o. daily. 6. Calcium carbonate/vitamin D3 one tab p.o. b.i.d. 7. Cyanocobalamin 1000 mcg p.o. daily. 8. Docusate 100 mg p.o. t.i.d. 9. Ferrous sulfate 325 mg p.o. daily. 10. Folic acid 1 mg p.o. q.a.m. 11. Furosemide 40 mg p.o. q.a.m. 12. Levothyroxine 12.5 mcg p.o. daily at 0600. 13. Metoprolol tartrate 25 mg p.o. b.i.d. 14. Multivitamin/minerals 1 tab p.o. daily. 15. Nitroglycerin tab 0.4 mg sublingual q.5 minutes p.r.n. angina. 16. Nystatin topical powder 1 application topically t.i.d. 17. Potassium chloride 20 mEq p.o. daily. 18. Spironolactone 25 mg p.o. daily. DRUG ALLERGIES: No known drug allergies. FAMILY HISTORY: Positive for hypertension. SOCIAL HISTORY: Ms. Sherwood denies current and former tobacco use. She does not drinks alcohol. She is retired. She and her live with her daughter who helps the patient with medications. In the event that she is unable to make her own medical decisions, she has appointed her , David Sherwood to be her surrogate decision maker. REVIEW OF SYSTEMS: A 10-point review of systems was performed and all the pertinent positives and negatives are in the HPI. All other systems are negative. PHYSICAL EXAMINATION VITAL SIGNS: Temperature 98.2 oral, heart rate 131, respiratory rate 25, oxygen saturation 98% on room air, blood pressure 123/88. HEENT: Visual green are grossly intact. PERRL. EOMI. No sclerae icterus. Pale conjunctivae. Oral mucous membranes are moist. There are no lesions. The pharynx is clear. Hearing is grossly intact. RESPIRATORY: Symmetrical chest expansion without use of accessory muscles. Lungs are clear to auscultation bilaterally without rhonchi, wheeze, rales, or crackles. CARDIOVASCULAR: Irregular rhythm, tachycardiac rate. There are no murmurs, rubs, or gallops. The patient does have JVD. ABDOMEN: Obese. Bowel sounds noted in all quadrants. The abdomen is soft. There is no tenderness to palpation. There is no hepatosplenomegaly. MUSCULOSKELETAL: Surgical site to the left hip with sutures in place. There are no signs of infection. No erythema or discharge. Clean, dry, intact dressing in place. EXTREMITIES: Skin is warm and smooth bilaterally. There is no clubbing or cyanosis. The patient has bilateral lower extremity 1+ pitting edema. The left greater than the right which is noted to be chronic. There is no tenderness at the calves. Ryan sign is negative. Radial and pedal pulses are palpable. NEURO: The patient is awake. She is alert and oriented x3. Cranial nerves are gross intact. She is able to move all of her extremities. Motor strength is 5/5 in upper and lower extremities. DIAGNOSTIC STUDIES/LAB DATA: EKG May 2018 reveals atrial fibrillation without apparent ST changes. Chest x-ray 08/05/18, impression: In the correct clinical setting, chest x-ray findings could be compatible with mild cardiogenic vascular congestion. RBC 3.12, HGB 9.8, HCT 29. RDW is 17, MPV 6.5. Sodium 124, chloride 90, creatinine 1.63, glucose 121, magnesium 1.6. Troponin 0.05. BNP 606. TSH 4.26. ASSESSMENT AND PLAN: Ms. Sherwood is an 87-year-old female with a past medical history of congestive heart failure with preserved ejection fraction, atrial fibrillation, hyperlipidemia, anemia who presented to the ER today with complaints of heart palpitations and shortness of breath. She was found to be in atrial fibrillation with rapid ventricular response. She also appears to have some exacerbation of congestive heart failure. The patient will be admitted observation for: 1. Atrial fibrillation with rapid ventricular response. The patient has a history of atrial fibrillation. She is on amiodarone, metoprolol and apixaban for this. These medications will be continued. Despite this, she requires further medical management and will be started on a diltiazem drip. The patient notes that she often needs cardioversion. Her last cardioversion was May 2018. Cardiology has been consulted. Dr. Luz recommends n.p.o. after midnight for possible cardioversion in the morning. The patient will be admitted to the ICU on diltiazem drip which will be titrated to heart rate. 2. Congestive heart failure exacerbation. The patient has some lower extremity edema which family states is her baseline. It is noted that her left is greater than her right which is also noted to be chronic. She does have positive JVD. Breath sounds are clear bilaterally, but chest x-ray suggests possible mild cardiogenic vascular congestion and BNP is elevated. It is likely that the patient is having an exacerbation due to atrial fibrillation. Her home dose of Lasix will be discontinued in favor of Lasix 20 IV now and 40 IV in the morning, at which point, we will reassess the need for further IV Lasix. 3. Elevated troponin. The patient's troponin is elevated to 0.05. The patient denies chest pain. EKG shows no ST changes. This is likely in the setting of demand ischemia due to atrial fibrillation, but troponins will continue to be trended. 4. Hypomagnesemia. Magnesium was 1.6. It is possible that this caused the patient's current atrial fibrillation. Magnesium will be repleted with 3 g magnesium IV with recheck in the morning. 5. Hyponatremia. The patient is chronically hyponatremic, although she is more hyponatremic than usual with the sodium of 124 when she typically rests in the high 120s to low 130s. The patient will receive Lasix with recheck in the morning. 6. Anemia. The patient has H and H of 9.8 and 29 respectively. This is slightly elevated above her baseline according to records. She will continue her ferrous sulfate daily and we will continue to monitor. 7. Left hip surgical repair. The patient had a left hip replacement in April with the revision in July. She is due to have her sae removed on . The site is intact with no signs of infection. We will need to consult Ortho if the patient remains beyond . 8. Chronic medical conditions. The patient's home medications will be continued with the exception of oral Lasix in favor of IV Lasix. 7. FEN: The patient will be n.p.o. after midnight for possible cardioversion in the morning, otherwise, she will be heart healthy, no caffeine. No IV fluids have been ordered. 8. Code status: Full code. 9. DVT prophylaxis: According to DVT Risk Assessment, the patient scores 3 and is placed at high risk. She is currently and will remain on apixaban. TIME SPENT: Approximately 50 minutes was spent on this admission, greater than half that time was spent with the patient and caregiver obtaining history, performing physical, and reviewing the plan of care. The case has been reviewed with my attending, Dr. Martin, who is in agreement with the plan of care. KIRSTEN BERMAN [id number]/CPS #: [id number] MTDD
[2018-08-05] MEDS: Docusate CAP* 100 MG PO SCH (20:42)
[2018-08-05] MEDS: Metoprolol Tartrate TAB* 25 MG PO SCH (20:42)
[2018-08-05] MEDS: Apixaban* 2.5 MG TAB PO SCH (21:33)
[2018-08-06] MEDS: Levothyroxine TAB* 25 MCG TAB PO SCH (05:39)
[2018-08-06] MEDS ORDERED: Furosemide IV* 10 MG/ML VIAL (40 MG) IV ONE (06:00)
[2018-08-06 06:01] LABS: ABS Basophils 0.1 10^3/ul (0-0.2); ABS Eosinophils 0.2 10^3/ul (0-0.6); ABS Lymphocytes 0.8 10^3/ul (1.0-4.8); ABS Neutrophils 4.6 10^3/ul (1.5-7.7); Hematocrit 27 % (35-47); Hemoglobin 9.1 g/dL (12.0-16.0); Lymphocyte % 12.1 %; Mean Corpuscular HGB Conc 34 g/dL (31-36); Mean Corpuscular Hemoglobin 31 pg (27-31); Mean Corpuscular Volume 93 fL (80-97); Mean Platelet Volume 6.3 fL (7.4-10.4); Platelet Count 207 10^3/uL (150-450); Red Blood Count 2.94 10^6 /uL (3.70-4.87); Red Cell Distribution Width 17 % (10.5-15); White Blood Count 6.7 10^3/uL (3.5-10.8)
[2018-08-06 06:19] LABS: BUN/Creatinine Ratio 10.2 (8-20); Calcium 8.7 mg/dL (8.6-10.3); EGFR African American 35.4 (>60); EGFR Non-African American 29.2 (>60); Magnesium 2.2 mg/dL (1.9-2.7); Potassium 3.8 mmol/L (3.5-5.0)
--- NOTE | 2018-08-06 08:49 | CONSULT ---
Subjective Date of Service: 08/06/18 - CC: dizzy, in afib, RVR Interval History: A few days of feeling shakey and dizzy. Found in afib, RVR. Per nursing, SBP very low this AM on diltiazem gtt, stopped with clinical improvement but V. rate again fast. Family History: Findings - + HTN Social History: Findings - non smoker, no alcohol use. Past Medical History: Findings - CAD, stent to RCA (2012), AVR (2016), PAF on Eliquis and amiodarone, HFpEF, COPD, HTN, Chol, IBS, PVD, hypothyroid, anemia, hip replacement June 2018, Medications Active Medications: Amiodarone HCl (Cordarone Tab*) 200 mg PO EVERY OTHER DAY [facility] Amiodarone HCl (Cordarone Tab*) 300 mg PO EVERY OTHER DAY [facility] Apixaban (Eliquis*) 2.5 mg PO BID [facility] Last Admin: 08/05/18 21:33 Dose: 2.5 mg Aspirin (Aspirin Ec Tab*) 81 mg PO QAM [facility] Atorvastatin Calcium (Lipitor*) 40 mg PO DAILY [facility] Cyanocobalamin (Vitamin B12 Tab*) 1,000 mcg PO DAILY [facility] Docusate Sodium (Colace Cap*) 100 mg PO TID [facility] Last Admin: 08/05/18 20:42 Dose: 100 mg Ferrous Sulfate (Ferrous Sulfate Tab*) 325 mg PO DAILY [facility] Folic Acid (Folvite Tab*) 1 mg PO QAM [facility] Levothyroxine Sodium (Synthroid Tab*) 12.5 mcg PO DAILY@0600 [facility] Last Admin: 08/06/18 05:39 Dose: 12.5 mcg Metoprolol Tartrate (Lopressor Tab*) 25 mg PO BID [facility] Last Admin: 08/05/18 20:42 Dose: 25 mg Multivitamins/Minerals (Theragran/Minerals Tab*) 1 tab PO DAILY [facility] Nitroglycerin (Nitroglycerin Tab 0.4 Mg*) 0.4 mg SL Q5M PRN PRN Reason: ANGINA Potassium Chloride (Klor Con Er Tab*) 20 meq PO DAILY [facility] Spironolactone (Aldactone Tab*) 25 mg PO DAILY [facility] Home Medications: Folic Acid TAB* [Folvite TAB*] 1 mg PO QAM 09/30/12 [History Confirmed 08/05/18] Furosemide TAB* [Lasix TAB*] 40 mg PO QAM 09/30/12 [History Confirmed 08/05/18] Aspirin EC TAB* [Ecotrin EC Low Dose 81 MG*] 81 mg PO QAM 12/28/14 [History Confirmed 08/05/18] Docusate CAP* [Colace Cap*] 100 mg PO TID 12/28/14 [History Confirmed 08/05/18] Nitroglycerin TAB 0.4 MG* 0.4 mg SL Q5M PRN #60 tab 10/17/16 [Rx Confirmed 08/05] Cyanocobalamin TAB* [Vitamin B12 TAB*] 1,000 mcg PO DAILY 03/06/17 [History Confirmed 08/05/18] Calcium Carbonate/Vitamin D3 [Calcium 600-Vit D3 400 Tablet] 1 tab PO BID [History Confirmed 08/05/18] Multivitamins/Minerals TAB* [Theragran/minerals TAB*] 1 tab PO DAILY 05/28/17 [ History Confirmed 08/05/18] Ferrous Sulfate TAB* 325 mg PO DAILY 01/10/18 [History Confirmed 08/05/18] Atorvastatin* [Lipitor 40 MG*] 40 mg PO DAILY 04/30/18 [History Confirmed ] Acetaminophen TAB* [Tylenol TAB*] 650 mg PO Q4H PRN tab 05/13/18 [Rx Confirmed 08/05/18] Nystatin TOP POWDER* 1 applic TOPICAL TID btl 05/13/18 [Rx Confirmed 08/05/18] Glycerin 1 each SC DAILY PRN 06/05/18 [History Confirmed 08/05/18] Magnesium Hydroxide LIQ* [Milk of Magnesia LIQ*] 30 ml PO Q72H PRN 06/05/18 [ History Confirmed 08/05/18] Potassium Chlor TAB* [Potassium Chlor TAB 20 MEQ*] 20 meq PO DAILY 06/05/18 [ History Confirmed 08/05/18] Levothyroxine TAB* [Synthroid 25 MCG TAB*] 12.5 mcg PO DAILY@0600 tab 06/10/18 [Rx Confirmed 08/05/18] Spironolactone TAB* [Aldactone TAB 25 MG*] 25 mg PO DAILY tab 06/10/18 [Rx Confirmed 08/05/18] Polyethylene Glycol 3350* [Miralax*] 17 gm PO DAILY 07/03/18 [History Confirmed 08/05/18] Apixaban* [Eliquis*] 2.5 mg PO BID #60 tab 07/16/18 [Rx Confirmed 08/05/18] Metoprolol Tartrate TAB* [Lopressor TAB*] 25 mg PO BID #60 tab 07/16/18 [Rx Confirmed 08/05/18] Amiodarone TAB* [Cordarone TAB*] 200 mg PO EVERY OTHER DAY 08/05/18 [History Confirmed 08/05/18] Amiodarone TAB* [Cordarone TAB*] 300 mg PO EVERY OTHER DAY 08/05/18 [History Confirmed 08/05/18] Review of Systems - Measurements Intake and Output: Intake and Output Last 24 Hours 08/04/18 08/05/18 08/06/18 08/07/18 04:59 04:59 04:59 04:59 Intake Total 963 88 Output Total 1550 Balance -587 88 Weight 198 lb 200 lb Intake: IV Fluids 106 Medicated IV 17 28 GEN - Diltiazem/Cardizem 17 28 Oral 840 60 Output: Urine 1550 Other: Date of Last Bowel 08/06/18 Movement # Bowel Movements 1 Estimated Stool Amount Large # Voids 1 - Review of Systems General Comments: Denies recent fevers, chills, sweats, no diarrhea, constipation or urinary problems, no SOB, orthopnea, no CP. Review of Systems Statement: All other review of systems negative, unless stated above. Objective Vital Signs: Temp Pulse Resp BP Pulse Ox 97.6 F 123 18 102/55 95 08/05/18 20:10 08/06/18 07:15 08/06/18 07:15 08/06/18 07:01 08/06/18 07:15 Oxygen Devices in Use Now: None Appearance: Elderly female, lying in bed, comfortable. Eyes: No Scleral Icterus, PERRLA Ears/Nose/Mouth/Throat: Clear Oropharnyx, Mucous Membranes Moist Neck: Trachea Midline, No Thyroid Enlargement, Masses Respiratory: Symmetrical Chest Expansion and Respiratory Effort, Clear to Auscultation Cardiovascular: - - irregularly irregular, tachycardic. Abdominal: NL Sounds; No Tenderness; No Distention, No Hepatosplenomegaly Extremities: - - trace edema legs. Skin: No Rash or Ulcers Neurological: Alert and Oriented x 3 - [place] Lines/Tubes/Other Access: Clean, Dry and Intact Peripheral IV Laboratory Results: 08/06/18 05:50 08/06/18 05:50 INR (Anticoag Therapy) 1.85 (0.82-1.09) H 08/05/18 14:04 Total Bilirubin 0.50 mg/dL (0.2-1.0) 08/05/18 14:04 AST 16 U/L (13-39) 08/05/18 14:04 ALT 15 U/L (7-52) 08/05/18 14:04 Alkaline Phosphatase 81 U/L (34-104) 08/05/18 14:04 B-Natriuretic Peptide 606 pg/mL (<=100) H 08/05/18 15:41 Total Protein 6.3 g/dL (6.4-8.9) L 08/05/18 14:04 Albumin 3.5 g/dL (3.2-5.2) 08/05/18 14:04 Globulin 2.8 g/dL (2-4) 08/05/18 14:04 Albumin/Globulin Ratio 1.3 (1-3) 08/05/18 14:04 TSH 4.26 mcIU/mL (0.34-5.60) 08/05/18 14:04 08/05/18 14:04 Troponin I 0.05 H* Sodium 128 mmol/L (135-145) L 08/06/18 05:50 Potassium 3.8 mmol/L (3.5-5.0) 08/06/18 05:50 BUN 17 mg/dL (6-24) 08/06/18 05:50 Creatinine 1.66 mg/dL (0.51-0.95) H 08/06/18 05:50 Calcium 8.7 mg/dL (8.6-10.3) 08/06/18 05:50 Magnesium 2.2 mg/dL (1.9-2.7) 08/06/18 05:50 AST 16 U/L (13-39) 08/05/18 14:04 ALT 15 U/L (7-52) 08/05/18 14:04 Magnesium admission: 1.6 Diagnostic Imaging: Echo 07/06/18: EF 55%, mild MR, mild mod TR, AV good function, PApr 42 mmHg. EKG Data: Afib, 131 bpm, LVH, unremarkable ST's QTc 504 Monitor: afib, RVR, occasional wide complex runs, VT vs abberancy (seen on June admission). Assessment/Plan Hx PAF, on amiodarone and Eliquis. Low Magnesium, corrected. No other precipitating factor identified. The patient states she takes her meds faithfully. For CV this AM. Wide complex tachycardia. AFIB: s/p succesful CV. Continue amiodarone and Eliquis. Electrolyte imbalance: I recommend stopping aldactone to prevent recurrent hypomagnisemia, hypokalemia and this may decrease the amount of PAF and wide complex tachycardia. CAD: I will review out patient chart for stress test updates. OK to go to floor from a cardiac standpoint.
[2018-08-06] MEDS: Amiodarone TAB* 200 MG PO SCH (08:53)
[2018-08-06] MEDS: Atorvastatin* 40 MG TAB PO SCH (08:53)
[2018-08-06] MEDS: Metoprolol Tartrate TAB* 25 MG PO SCH ×2 (08:53→20:43)
[2018-08-06] MEDS: Cyanocobalamin TAB* 500 MCG PO SCH (08:54)
[2018-08-06] MEDS: Multivitamins/Minerals TAB PO SCH (08:54)
[2018-08-06] MEDS: Ferrous Sulfate TAB* 325 MG PO SCH (08:54)
[2018-08-06] MEDS: Folic Acid TAB* 1 MG PO SCH (08:54)
[2018-08-06] MEDS: Potassium Chlor TAB* 20 MEQ TAB.ER PO SCH (08:54)
[2018-08-06] MEDS: Docusate CAP* 100 MG PO SCH ×3 (08:54→20:43)
[2018-08-06] MEDS: Aspirin EC TAB* 81 MG TAB.EC PO SCH (08:54)
[2018-08-06] MEDS: Apixaban* 2.5 MG TAB PO SCH ×2 (08:56→20:43)
[2018-08-06] MEDS ORDERED: Spironolactone TAB* 25 MG PO SCH (09:00)
[2018-08-06 09:36] LABS: Troponin I 0.04 ng/mL (<0.04)
[2018-08-06] MEDS ORDERED: fentaNYL* 50 MCG/ML 2 ML VIAL (100 MCG VIAL) ONE (10:10)
[2018-08-06] MEDS ORDERED: Flumazenil* 0.1 MG/ML 5 ML MDV ONE (10:10)
[2018-08-06] MEDS ORDERED: Naloxone* 0.4 MG/ML 1 ML VIAL ONE (10:10)
[2018-08-06] MEDS ORDERED: Midazolam* 1 MG/ML 5 ML VIAL (5 MG) ONE (10:10)
--- NOTE | 2018-08-06 10:54 | PN ---
Subjective Date of Service: 08/06/18 Interval History: Pt c/o SOB and intermittent palpitations for the past 3-4 days Walking with a walker after her hip surgery Objective Active Medications: Amiodarone HCl (Cordarone Tab*) 200 mg PO EVERY OTHER DAY [facility] Amiodarone HCl (Cordarone Tab*) 300 mg PO EVERY OTHER DAY [facility] Last Admin: 08/06/18 08:53 Dose: 300 mg Apixaban (Eliquis*) 2.5 mg PO BID [facility] Last Admin: 08/06/18 08:56 Dose: 2.5 mg Aspirin (Aspirin Ec Tab*) 81 mg PO QAM [facility] Last Admin: 08/06/18 08:54 Dose: 81 mg Atorvastatin Calcium (Lipitor*) 40 mg PO DAILY [facility] Last Admin: 08/06/18 08:53 Dose: 40 mg Cyanocobalamin (Vitamin B12 Tab*) 1,000 mcg PO DAILY [facility] Last Admin: 08/06/18 08:54 Dose: 1,000 mcg Docusate Sodium (Colace Cap*) 100 mg PO TID [facility] Last Admin: 08/06/18 08:54 Dose: 100 mg Ferrous Sulfate (Ferrous Sulfate Tab*) 325 mg PO DAILY [facility] Last Admin: 08/06/18 08:54 Dose: 325 mg Folic Acid (Folvite Tab*) [facility] Last Admin: 08/06/18 08:54 Dose: 1 mg Levothyroxine Sodium (Synthroid Tab*) 12.5 mcg PO DAILY@0600 [facility] Last Admin: 08/06/18 05:39 Dose: 12.5 mcg Metoprolol Tartrate (Lopressor Tab*) 25 mg PO BID [facility] Last Admin: 08/06/18 08:53 Dose: 25 mg Multivitamins/Minerals (Theragran/Minerals Tab*) 1 tab PO DAILY [facility] Last Admin: 08/06/18 08:54 Dose: 1 tab Nitroglycerin (Nitroglycerin Tab 0.4 Mg*) 0.4 mg SL Q5M PRN PRN Reason: ANGINA Potassium Chloride (Klor Con Er Tab*) 20 meq PO DAILY [facility] Last Admin: 08/06/18 08:54 Dose: 20 meq Spironolactone (Aldactone Tab*) 25 mg PO DAILY [facility] Last Admin: 08/06/18 08:54 Dose: 25 mg Vital Signs - 8 hr 08/06/18 08/06/18 08/06/18 02:58 03:00 03:01 Pulse Rate 114 113 Respiratory 21 33 21 Rate Blood Pressure 94/73 (mmHg) O2 Sat by Pulse 96 99 Oximetry 08/06/18 08/06/18 08/06/18 03:15 03:30 03:45 Pulse Rate 81 85 95 Respiratory 25 21 32 Rate Blood Pressure 113/62 (mmHg) O2 Sat by Pulse 96 95 99 Oximetry 08/06/18 08/06/18 08/06/18 03:56 04:00 04:15 Pulse Rate 100 110 Respiratory 16 17 21 Rate Blood Pressure 142/64 (mmHg) O2 Sat by Pulse 95 91 Oximetry 08/06/18 08/06/18 08/06/18 04:30 04:45 05:00 Pulse Rate 101 100 98 Respiratory 28 26 28 Rate Blood Pressure 110/83 115/84 (mmHg) O2 Sat by Pulse 99 96 98 Oximetry 08/06/18 08/06/18 08/06/18 05:15 05:30 05:45 Pulse Rate 121 78 123 Respiratory 23 27 39 Rate Blood Pressure 103/69 (mmHg) O2 Sat by Pulse 96 96 97 Oximetry 08/06/18 08/06/18 08/06/18 05:52 06:00 06:01 Pulse Rate 99 115 Respiratory 26 36 31 Rate Blood Pressure 100/72 (mmHg) O2 Sat by Pulse 97 96 Oximetry 08/06/18 08/06/18 08/06/18 06:15 06:30 06:45 Pulse Rate 110 110 93 Respiratory 19 19 21 Rate Blood Pressure 99/58 (mmHg) O2 Sat by Pulse 96 96 94 Oximetry 08/06/18 08/06/18 08/06/18 07:00 07:01 07:15 Pulse Rate 90 118 123 Respiratory 25 31 18 Rate Blood Pressure 102/55 (mmHg) O2 Sat by Pulse 97 95 95 Oximetry 08/06/18 08/06/18 08/06/18 07:27 07:30 07:32 Pulse Rate 79 93 82 Respiratory 21 20 18 Rate Blood Pressure 102/41 77/49 90/39 (mmHg) O2 Sat by Pulse 94 95 95 Oximetry 08/06/18 08/06/18 08/06/18 07:36 07:45 08:00 Pulse Rate 126 110 101 Respiratory 31 33 14 Rate Blood Pressure 104/53 86/62 (mmHg) O2 Sat by Pulse 95 95 95 Oximetry 08/06/18 08/06/18 08/06/18 08:15 08:30 08:31 Pulse Rate 102 114 131 Respiratory 19 26 15 Rate Blood Pressure 63/53 106/74 (mmHg) O2 Sat by Pulse 90 97 98 Oximetry 08/06/18 08/06/18 08/06/18 08:45 08:50 09:00 Pulse Rate 137 116 Respiratory 16 23 14 Rate Blood Pressure 114/84 (mmHg) O2 Sat by Pulse 98 96 Oximetry 08/06/18 08/06/18 08/06/18 09:01 09:15 09:30 Pulse Rate 125 117 132 Respiratory 14 20 19 Rate Blood Pressure 92/42 (mmHg) O2 Sat by Pulse 96 98 98 Oximetry 08/06/18 08/06/18 08/06/18 09:31 09:45 10:00 Pulse Rate 123 131 131 Respiratory 24 26 18 Rate Blood Pressure 116/82 (mmHg) O2 Sat by Pulse 96 97 96 Oximetry 08/06/18 10:01 Pulse Rate 106 Respiratory 27 Rate Blood Pressure 91/48 (mmHg) O2 Sat by Pulse 99 Oximetry Oxygen Devices in Use Now: None Appearance: 87 yo M in nAD, aAOx3 Eyes: No Scleral Icterus, PERRLA Ears/Nose/Mouth/Throat: NL Teeth, Lips, Gums, Mucous Membranes Moist Neck: NL Appearance and Movements; NL JVP, Trachea Midline Respiratory: Symmetrical Chest Expansion and Respiratory Effort, - - crackles at b/l bases Cardiovascular: - - irregular Abdominal: NL Sounds; No Tenderness; No Distention, No Hepatosplenomegaly Lymphatic: No Cervical Adenopathy Extremities: No Clubbing, Cyanosis, - - trace pedal edema l>R Skin: No Nodules or Sclerosis, - - left hip incision with sae in place, no dehiscence, wound healed Neurological: Alert and Oriented x 3, NL Muscle Strength and Tone Result Diagrams: 08/06/18 05:50 08/06/18 05:50 Additional Lab and Data: Lab Results 08/05/18 08/05/18 08/05/18 Range/Units 14:04 14:04 14:04 WBC 6.3 (3.5-10.8) 10^3/uL RBC 3.12 L (3.70-4.87) 10^6 /uL Hgb 9.8 L (12.0-16.0) g/dL Hct 29 L (35-47) % MCV 93 (80-97) fL MCH 31 (27-31) pg MCHC 34 (31-36) g/dL RDW 17 H (10.5-15) % Plt Count 229 (150-450) 10^3/uL MPV 6.5 L (7.4-10.4) fL Neut % (Auto) 73.1 % Lymph % (Auto) 12.8 % [place] % (Auto) 12.4 % Eos % (Auto) 1.3 % Baso % (Auto) 0.4 % Absolute Neuts (auto) 4.6 (1.5-7.7) 10^3/ul Absolute Lymphs (auto) 0.8 L (1.0-4.8) 10^3/ul Absolute Monos (auto) 0.8 (0-0.8) 10^3/ul Absolute Eos (auto) 0.1 (0-0.6) 10^3/ul Absolute Basos (auto) 0.0 (0-0.2) 10^3/ul Absolute Nucleated RBC 0.0 10^3/ul Nucleated RBC % 0.0 INR (Anticoag Therapy) 1.85 H (0.82-1.09) Sodium 124 L (135-145) mmol/L Potassium 3.9 (3.5-5.0) mmol/L Chloride 90 L (101-111) mmol/L Carbon Dioxide 24 (22-32) mmol/L Anion Gap 10 (2-11) mmol/L BUN 18 (6-24) mg/dL Creatinine 1.63 H (0.51-0.95) mg/dL Est GFR ( Amer) 36.1 (>60) Est GFR (Non-Af Amer) 29.8 (>60) BUN/Creatinine Ratio 11.0 (8-20) Glucose 121 H (70-100) mg/dL Lactic Acid (0.5-2.0) mmol/L Calcium 9.2 (8.6-10.3) mg/dL Magnesium 1.6 L (1.9-2.7) mg/dL Total Bilirubin 0.50 (0.2-1.0) mg/dL AST 16 (13-39) U/L ALT 15 (7-52) U/L Alkaline Phosphatase 81 (34-104) U/L Troponin I 0.05 H* (<0.04) ng/mL Total Protein 6.3 L (6.4-8.9) g/dL Albumin 3.5 (3.2-5.2) g/dL Globulin 2.8 (2-4) g/dL Albumin/Globulin Ratio 1.3 (1-3) TSH Pending 08/05/18 Range/Units 14:04 WBC (3.5-10.8) 10^3/uL RBC (3.70-4.87) 10^6 /uL Hgb (12.0-16.0) g/dL Hct (35-47) % MCV (80-97) fL MCH (27-31) pg MCHC (31-36) g/dL RDW (10.5-15) % Plt Count (150-450) 10^3/uL MPV (7.4-10.4) fL Neut % (Auto) % Lymph % (Auto) % [place] % (Auto) % Eos % (Auto) % Baso % (Auto) % Absolute Neuts (auto) (1.5-7.7) 10^3/ul Absolute Lymphs (auto) (1.0-4.8) 10^3/ul Absolute Monos (auto) (0-0.8) 10^3/ul Absolute Eos (auto) (0-0.6) 10^3/ul Absolute Basos (auto) (0-0.2) 10^3/ul Absolute Nucleated RBC 10^3/ul Nucleated RBC % INR (Anticoag Therapy) (0.82-1.09) Sodium (135-145) mmol/L Potassium (3.5-5.0) mmol/L Chloride (101-111) mmol/L Carbon Dioxide (22-32) mmol/L Anion Gap (2-11) mmol/L BUN (6-24) mg/dL Creatinine (0.51-0.95) mg/dL Est GFR ( Amer) (>60) Est GFR (Non-Af Amer) (>60) BUN/Creatinine Ratio (8-20) Glucose (70-100) mg/dL Lactic Acid 1.1 (0.5-2.0) mmol/L Calcium (8.6-10.3) mg/dL Magnesium (1.9-2.7) mg/dL Total Bilirubin (0.2-1.0) mg/dL AST (13-39) U/L ALT (7-52) U/L Alkaline Phosphatase (34-104) U/L Troponin I (<0.04) ng/mL Total Protein (6.4-8.9) g/dL Albumin (3.2-5.2) g/dL Globulin (2-4) g/dL Albumin/Globulin Ratio (1-3) TSH Microbiology and Other Data: Microbiology 08/05/18 20:30 Nasal Screen MRSA (PCR) - Final Nasal Mrsa Not Detected Assess/Plan/Problems-Billing Assessment: 87 yo F h/o hemiarthroplasty in 04/2018, afib, cad, ckd pw SOB and palpitations with recurrent a. fib with RVR found with hyponatremia, CHF - Patient Problems (1) Atrial fibrillation with rapid ventricular response Comment: for cardioversion today cont Amiodarone/Eliquis Appreciate DR. Thompson's f/u (2) Acute on chronic diastolic congestive heart failure Comment: - Acutely decompensated earlier this admission , now resolved - Echo shows EF 55-60% in begining 07/2018 - Continue metoprolol, furosemide to be restarted tomorrow PO, spironolactone (3) Anemia Comment: - Chronic/stable (4) CKD (chronic kidney disease) stage 3, GFR 30-59 ml/min Comment: Creat around baseline (5) Closed left hip fracture Comment: -S/P L. hip hemiarthroplasty 04/2018 and hip area subcu abscess wash out 07/08/18 (6) Elevated troponin Comment: prox RCA stent (bare metal in setting of potential need for uterine mass surgery/hysterectomy) in 10/2016 Trop 0.05 due to demand ischemia (7) VT (ventricular tachycardia) Comment: -h/o - Continue amiodarone (8) Hyponatremia Comment: - improved with lesly Keenan due to CHF - h/o chronic hyponatremia (9) DVT prophylaxis Comment: - Eliquis Status and Disposition: inpatient
--- NOTE | 2018-08-06 11:38 | CARD ---
CC: Dr. Talib Cisneros* PROCEDURE NOTE: DATE OF PROCEDURE: 08/06/18 PROCEDURE: Electrical cardioversion. PRE-PROCEDURE DIAGNOSIS: Atrial fibrillation. POST-PROCEDURE DIAGNOSIS: Atrial fibrillation. The indications, risks, and benefits for the procedure were discussed with the patient and she is amenable to proceeding. AP patches were applied to the chest wall and the time-out was called. DESCRIPTION OF PROCEDURE: The patient received a total of 2 mg of Versed and 25 mcg of fentanyl for sedation. A 120 joules was delivered across the chest wall with successful cardioversion from atrial fibrillation at 110 beats per minute approximately to normal sinus rhythm at 50s. The patient was transiently hypotensive, but responded immediately and was otherwise hemodynamically stable throughout the procedure and recovery. A 12- lead ECG is pending. Currently, blood pressure 122/60, sinus rhythm at 58 beats a minute. Oxygen saturation 96%. [id number]/CPS #: [id number] MTDD
[2018-08-07] MEDS: Levothyroxine TAB* 25 MCG TAB PO SCH (06:02)
[2018-08-07 06:08] LABS: BUN/Creatinine Ratio 9.9 (8-20); Calcium 8.2 mg/dL (8.6-10.3); EGFR African American 33.9 (>60); Potassium 4.1 mmol/L (3.5-5.0)
[2018-08-07 06:11] LABS: ABS Basophils 0.1 10^3/ul (0-0.2); ABS Eosinophils 0.2 10^3/ul (0-0.6); ABS Lymphocytes 0.8 10^3/ul (1.0-4.8); ABS Monocytes 1.1 10^3/ul (0-0.8); ABS Neutrophils 4.6 10^3/ul (1.5-7.7); Hematocrit 28 % (35-47); Hemoglobin 9.1 g/dL (12.0-16.0); Lymphocyte % 11.7 %; Mean Corpuscular HGB Conc 33 g/dL (31-36); Mean Corpuscular Hemoglobin 31 pg (27-31); Mean Corpuscular Volume 95 fL (80-97); Mean Platelet Volume 6.4 fL (7.4-10.4); Platelet Count 208 10^3/uL (150-450); Red Blood Count 2.94 10^6 /uL (3.70-4.87); Red Cell Distribution Width 18 % (10.5-15); White Blood Count 6.8 10^3/uL (3.5-10.8)
[2018-08-07] MEDS ORDERED: Amiodarone TAB* 200 MG PO SCH (09:00)
[2018-08-07] MEDS: Docusate CAP* 100 MG PO SCH ×3 (09:02→21:56)
[2018-08-07] MEDS: Folic Acid TAB* 1 MG PO SCH (09:17)
[2018-08-07] MEDS: Atorvastatin* 40 MG TAB PO SCH (09:17)
[2018-08-07] MEDS: Cyanocobalamin TAB* 500 MCG PO SCH (09:17)
[2018-08-07] MEDS: Ferrous Sulfate TAB* 325 MG PO SCH (09:18)
[2018-08-07] MEDS: Aspirin EC TAB* 81 MG TAB.EC PO SCH (09:18)
[2018-08-07] MEDS: Apixaban* 2.5 MG TAB PO SCH ×2 (09:18→21:56)
[2018-08-07] MEDS: Furosemide TAB* 40 MG PO SCH (09:18)
[2018-08-07] MEDS: Potassium Chlor TAB* 20 MEQ TAB.ER PO SCH (09:18)
[2018-08-07] MEDS: Multivitamins/Minerals TAB PO SCH (09:18)
[2018-08-07] MEDS: Metoprolol Tartrate TAB* 25 MG PO SCH ×2 (09:18→21:56)
--- NOTE | 2018-08-07 11:48 | PN ---
Subjective Date of Service: 08/07/18 Interval History: Pt feels tired today. Not sure if she feels strong eight to go home. Has not had PT yet today Objective Active Medications: Amiodarone HCl (Cordarone Tab*) 200 mg PO EVERY OTHER DAY [facility] Last Admin: 08/07/18 09:18 Dose: 200 mg Amiodarone HCl (Cordarone Tab*) 300 mg PO EVERY OTHER DAY [facility] Last Admin: 08/06/18 08:53 Dose: 300 mg Apixaban (Eliquis*) 2.5 mg PO BID [facility] Last Admin: 08/07/18 09:18 Dose: 2.5 mg Aspirin (Aspirin Ec Tab*) 81 mg PO QAM [facility] Last Admin: 08/07/18 09:18 Dose: 81 mg Atorvastatin Calcium (Lipitor*) 40 mg PO DAILY [facility] Last Admin: 08/07/18 09:17 Dose: 40 mg Cyanocobalamin (Vitamin B12 Tab*) 1,000 mcg PO DAILY [facility] Last Admin: 08/07/18 09:17 Dose: 1,000 mcg Docusate Sodium (Colace Cap*) 100 mg PO TID [facility] Last Admin: 08/07/18 09:02 Dose: Not Given Ferrous Sulfate (Ferrous Sulfate Tab*) 325 mg PO DAILY [facility] Last Admin: 08/07/18 09:18 Dose: 325 mg Folic Acid (Folvite Tab*) 1 mg PO QAM [facility] Last Admin: 08/07/18 09:17 Dose: 1 mg Furosemide (Lasix Tab*) 40 mg PO QAM [facility] Last Admin: 08/07/18 09:18 Dose: 40 mg Levothyroxine Sodium (Synthroid Tab*) 12.5 mcg PO DAILY@0600 [facility] Last Admin: 08/07/18 06:02 Dose: 12.5 mcg Metoprolol Tartrate (Lopressor Tab*) 25 mg PO BID [facility] Last Admin: 08/07/18 09:18 Dose: 25 mg Multivitamins/Minerals (Theragran/Minerals Tab*) 1 tab PO DAILY [facility] Last Admin: 08/07/18 09:18 Dose: 1 tab Nitroglycerin (Nitroglycerin Tab 0.4 Mg*) 0.4 mg SL Q5M PRN PRN Reason: ANGINA Potassium Chloride (Klor Con Er Tab*) 20 meq PO DAILY [facility] Last Admin: 08/07/18 09:18 Dose: 20 meq Vital Signs - 8 hr 08/07/18 08/07/18 07:24 08:00 Temperature 98.1 F Pulse Rate 62 Respiratory 17 18 Rate Blood Pressure 139/51 (mmHg) O2 Sat by Pulse 97 Oximetry Oxygen Devices in Use Now: None Appearance: 87 yo f in nAD, AAOx3 Eyes: No Scleral Icterus, PERRLA Ears/Nose/Mouth/Throat: NL Teeth, Lips, Gums, Mucous Membranes Moist Neck: NL Appearance and Movements; NL JVP, Trachea Midline Respiratory: Symmetrical Chest Expansion and Respiratory Effort, Clear to Auscultation Cardiovascular: NL Sounds; No Murmurs; No JVD, RRR Lymphatic: No Cervical Adenopathy Extremities: No Clubbing, Cyanosis, - - trace pedal edema b/l Skin: No Nodules or Sclerosis, - - stapled left hip incision -healed Neurological: Alert and Oriented x 3, NL Muscle Strength and Tone Result Diagrams: 08/07/18 05:41 08/07/18 05:41 Additional Lab and Data: Lab Results 08/05/18 08/05/18 08/05/18 Range/Units 14:04 14:04 14:04 WBC 6.3 (3.5-10.8) 10^3/uL RBC 3.12 L (3.70-4.87) 10^6 /uL Hgb 9.8 L (12.0-16.0) g/dL Hct 29 L (35-47) % MCV 93 (80-97) fL MCH 31 (27-31) pg MCHC 34 (31-36) g/dL RDW 17 H (10.5-15) % Plt Count 229 (150-450) 10^3/uL MPV 6.5 L (7.4-10.4) fL Neut % (Auto) 73.1 % Lymph % (Auto) 12.8 % [place] % (Auto) 12.4 % Eos % (Auto) 1.3 % Baso % (Auto) 0.4 % Absolute Neuts (auto) 4.6 (1.5-7.7) 10^3/ul Absolute Lymphs (auto) 0.8 L (1.0-4.8) 10^3/ul Absolute Monos (auto) 0.8 (0-0.8) 10^3/ul Absolute Eos (auto) 0.1 (0-0.6) 10^3/ul Absolute Basos (auto) 0.0 (0-0.2) 10^3/ul Absolute Nucleated RBC 0.0 10^3/ul Nucleated RBC % 0.0 INR (Anticoag Therapy) 1.85 H (0.82-1.09) Sodium 124 L (135-145) mmol/L Potassium 3.9 (3.5-5.0) mmol/L Chloride 90 L (101-111) mmol/L Carbon Dioxide 24 (22-32) mmol/L Anion Gap 10 (2-11) mmol/L BUN 18 (6-24) mg/dL Creatinine 1.63 H (0.51-0.95) mg/dL Est GFR ( Amer) 36.1 (>60) Est GFR (Non-Af Amer) 29.8 (>60) BUN/Creatinine Ratio 11.0 (8-20) Glucose 121 H (70-100) mg/dL Lactic Acid (0.5-2.0) mmol/L Calcium 9.2 (8.6-10.3) mg/dL Magnesium 1.6 L (1.9-2.7) mg/dL Total Bilirubin 0.50 (0.2-1.0) mg/dL AST 16 (13-39) U/L ALT 15 (7-52) U/L Alkaline Phosphatase 81 (34-104) U/L Troponin I 0.05 H* (<0.04) ng/mL Total Protein 6.3 L (6.4-8.9) g/dL Albumin 3.5 (3.2-5.2) g/dL Globulin 2.8 (2-4) g/dL Albumin/Globulin Ratio 1.3 (1-3) TSH Pending 08/05/18 Range/Units 14:04 WBC (3.5-10.8) 10^3/uL RBC (3.70-4.87) 10^6 /uL Hgb (12.0-16.0) g/dL Hct (35-47) % MCV (80-97) fL MCH (27-31) pg MCHC (31-36) g/dL RDW (10.5-15) % Plt Count (150-450) 10^3/uL MPV (7.4-10.4) fL Neut % (Auto) % Lymph % (Auto) % [place] % (Auto) % Eos % (Auto) % Baso % (Auto) % Absolute Neuts (auto) (1.5-7.7) 10^3/ul Absolute Lymphs (auto) (1.0-4.8) 10^3/ul Absolute Monos (auto) (0-0.8) 10^3/ul Absolute Eos (auto) (0-0.6) 10^3/ul Absolute Basos (auto) (0-0.2) 10^3/ul Absolute Nucleated RBC 10^3/ul Nucleated RBC % INR (Anticoag Therapy) (0.82-1.09) Sodium (135-145) mmol/L Potassium (3.5-5.0) mmol/L Chloride (101-111) mmol/L Carbon Dioxide (22-32) mmol/L Anion Gap (2-11) mmol/L BUN (6-24) mg/dL Creatinine (0.51-0.95) mg/dL Est GFR ( Amer) (>60) Est GFR (Non-Af Amer) (>60) BUN/Creatinine Ratio (8-20) Glucose (70-100) mg/dL Lactic Acid 1.1 (0.5-2.0) mmol/L Calcium (8.6-10.3) mg/dL Magnesium (1.9-2.7) mg/dL Total Bilirubin (0.2-1.0) mg/dL AST (13-39) U/L ALT (7-52) U/L Alkaline Phosphatase (34-104) U/L Troponin I (<0.04) ng/mL Total Protein (6.4-8.9) g/dL Albumin (3.2-5.2) g/dL Globulin (2-4) g/dL Albumin/Globulin Ratio (1-3) TSH Microbiology and Other Data: Microbiology 08/05/18 20:30 Nasal Screen MRSA (PCR) - Final Nasal Mrsa Not Detected Assess/Plan/Problems-Billing Assessment: 87 yo F h/o hemiarthroplasty in 04/2018, afib, cad, ckd pw SOB and palpitations with recurrent a. fib with RVR found with hyponatremia, CHF - Patient Problems (1) Atrial fibrillation with rapid ventricular response Comment: s/p cardioversion 5/29/19, cont in NSR hypomagnezemia could have contributed cont Amiodarone/Eliquis Appreciate DR. Thompson's f/u (2) Acute on chronic diastolic congestive heart failure Comment: - Acutely decompensated earlier this admission , now resolved - Echo shows EF 55-60% in begining 07/2018 - Continue metoprolol, furosemide PO, spironolactone d/csd as per cardiology recommendation (3) Anemia Comment: - Chronic/stable (4) CKD (chronic kidney disease) stage 3, GFR 30-59 ml/min Comment: Creat around baseline (5) Closed left hip fracture Comment: -S/P L. hip hemiarthroplasty 04/2018 and hip area subcu abscess wash out 07/08/18 (6) Elevated troponin Comment: prox RCA stent (bare metal in setting of potential need for uterine mass surgery/hysterectomy) in 10/2016 Trop 0.05 due to demand ischemia (7) VT (ventricular tachycardia) Comment: -h/o - Continue amiodarone (8) Hyponatremia Comment: - improved with lesly Keenan due to CHF - h/o chronic hyponatremia (9) DVT prophylaxis Comment: - Eliquis Status and Disposition: inpatient, could potentially go home today if OK with PT
--- NOTE | 2018-08-07 13:32 | PN ---
Progress Note - Progress Note Date of Service: 08/07/18 SOAP: Subjective: []I saw Veronica today for staple removal. She is one month post Left hip incisional wound sp I&D. Denies fever or chills. Hip pain is well controlled. Objective: []General: Appears well, NAD LLE: Mars removed. Incision is healing well, CDI, well approximated wound edges without erythema and without discharge. Thigh is soft and nontender Assessment: [] 1 month sp I&D left hip incisional wound. SP left bipolar hemiarthroplasty Apr 2018. Plan: []WBAT Posterior hip precautions FU with Dr Johnson outpt Temp Pulse Resp BP Pulse Ox 98.1 F 62 18 139/51 97 08/07/18 07:24 08/07/18 07:24 08/07/18 08:00 08/07/18 07:24 08/07/18 07:24 Laboratory Last Values WBC 6.8 10^3/uL (3.5-10.8) 08/07/18 05:41 RBC 2.94 10^6 /uL (3.70-4.87) L 08/07/18 05:41 Hgb 9.1 g/dL (12.0-16.0) L 08/07/18 05:41 Hct 28 % (35-47) L 08/07/18 05:41 MCV 95 fL (80-97) 08/07/18 05:41 MCH 31 pg (27-31) 08/07/18 05:41 MCHC 33 g/dL (31-36) 08/07/18 05:41 RDW 18 % (10.5-15) H 08/07/18 05:41 Plt Count 208 10^3/uL (150-450) 08/07/18 05:41 MPV 6.4 fL (7.4-10.4) L 08/07/18 05:41 Neut % (Auto) 68.4 % 08/07/18 05:41 Lymph % (Auto) 11.7 % 08/07/18 05:41 [place] % (Auto) 16.0 % 08/07/18 05:41 Eos % (Auto) 3.0 % 08/07/18 05:41 Baso % (Auto) 0.9 % 08/07/18 05:41 Absolute Neuts (auto) 4.6 10^3/ul (1.5-7.7) 08/07/18 05:41 Absolute Lymphs (auto) 0.8 10^3/ul (1.0-4.8) L 08/07/18 05:41 Absolute Monos (auto) 1.1 10^3/ul (0-0.8) H 08/07/18 05:41 Absolute Eos (auto) 0.2 10^3/ul (0-0.6) 08/07/18 05:41 Absolute Basos (auto) 0.1 10^3/ul (0-0.2) 08/07/18 05:41 Absolute Nucleated RBC 0.0 10^3/ul 08/07/18 05:41 Nucleated RBC % 0.0 08/07/18 05:41 INR (Anticoag Therapy) 1.85 (0.82-1.09) H 08/05/18 14:04 Sodium 131 mmol/L (135-145) L 08/07/18 05:41 Potassium 4.1 mmol/L (3.5-5.0) 08/07/18 05:41 Chloride 97 mmol/L (101-111) L 08/07/18 05:41 Carbon Dioxide 26 mmol/L (22-32) 08/07/18 05:41 Anion Gap 8 mmol/L (2-11) 08/07/18 05:41 BUN 17 mg/dL (6-24) 08/07/18 05:41 Creatinine 1.72 mg/dL (0.51-0.95) H 08/07/18 05:41 Est GFR ( Amer) 33.9 (>60) 08/07/18 05:41 Est GFR (Non-Af Amer) 28.0 (>60) 08/07/18 05:41 BUN/Creatinine Ratio 9.9 (8-20) 08/07/18 05:41 Glucose 98 mg/dL (70-100) 08/07/18 05:41 Lactic Acid 1.1 mmol/L (0.5-2.0) 08/05/18 14:04 Calcium 8.2 mg/dL (8.6-10.3) L 08/07/18 05:41 Magnesium 2.0 mg/dL (1.9-2.7) 08/07/18 05:41 Total Bilirubin 0.50 mg/dL (0.2-1.0) 08/05/18 14:04 AST 16 U/L (13-39) 08/05/18 14:04 ALT 15 U/L (7-52) 08/05/18 14:04 Alkaline Phosphatase 81 U/L (34-104) 08/05/18 14:04 Troponin I 0.04 ng/mL (<0.04) H* 08/06/18 09:06 B-Natriuretic Peptide 606 pg/mL (<=100) H 08/05/18 15:41 Total Protein 6.3 g/dL (6.4-8.9) L 08/05/18 14:04 Albumin 3.5 g/dL (3.2-5.2) 08/05/18 14:04 Globulin 2.8 g/dL (2-4) 08/05/18 14:04 Albumin/Globulin Ratio 1.3 (1-3) 08/05/18 14:04 TSH 4.26 mcIU/mL (0.34-5.60) 08/05/18 14:04 Urine Color Yellow 08/05/18 17:55 Urine Appearance Clear 08/05/18 17:55 Urine pH 6.0 (5-9) 08/05/18 17:55 Ur Specific [place] 1.005 (1.010-1.030) L 08/05/18 17:55 Urine Protein Negative (Negative) 08/05/18 17:55 Urine Ketones Negative (Negative) 08/05/18 17:55 Urine Blood Negative (Negative) 08/05/18 17:55 Urine Nitrate Negative (Negative) 08/05/18 17:55 Urine Bilirubin Negative (Negative) 08/05/18 17:55 Urine Urobilinogen Negative (Negative) 08/05/18 17:55 Ur Leukocyte Esterase 1+ (Negative) A 08/05/18 17:55 Urine WBC (Auto) Trace(0-5/hpf) (Absent) 08/05/18 17:55 Urine RBC (Auto) Absent (Absent) 08/05/18 17:55 Urine Bacteria Absent (Absent) 08/05/18 17:55 Urine Glucose Negative (Negative) 08/05/18 17:55
--- NOTE | 2018-08-08 00:46 | DS ---
CC: Dr. Susy Quevedo; Dr. Cisneros; Dr. Thompson; Dr. Johnson* DISCHARGE SUMMARY: DATE OF ADMISSION: 08/05/18 DATE OF DISCHARGE: 08/08/18 PRIMARY CARE PROVIDER: Dr. Susy Quevedo. DISCHARGE DIAGNOSES: 1. Exacerbation of [id number] diastolic congestive heart failure. 2. Atrial fibrillation with rapid ventricular response, paroxysmal, status post cardioversion performed on 08/06/18. 3. Hypomagnesemia. SECONDARY DIAGNOSES: 1. History of paroxysmal atrial fibrillation. 2. History of multiple cardioversions for above. 3. History of diastolic congestive heart failure with preserved EF. 4. Hypertension. 5. Hyperlipidemia. 6. Coronary artery disease, status post RCA stent in October 2016. 7. Hypothyroidism. 8. Peripheral vascular disease. 9. History of chronic obstructive pulmonary disease, not on oxygen. 10. History of valvular heart disease. 11. Status post aortic valve replacement in 2012. 12. History of left hip surgery in May 2018 with revision and evacuation of wound abscess in July 2018. MEDICATIONS AT DISCHARGE: Include: 1. Amiodarone 300 mg with amiodarone 200 mg every other day. 2. Acetaminophen on a p.r.n. basis. 3. Apixaban 2.5 mg b.i.d. 4. Aspirin 81 mg daily. 5. Atorvastatin 40 mg daily. 6. Calcium carbonate with vitamin D 1 tablet b.i.d. 7. Vitamin B12 1000 mcg daily. 8. Colace 100 mg 3 times a day. 9. Ferrous sulphate 325 mg daily. 10. Folic acid 1 mg daily. 11. Furosemide 40 mg daily. 12. Levothyroxine 12.5 mcg daily. 13. Metoprolol tartrate 25 mg b.i.d. 14. Multivitamin 1 tablet daily. 15. Nitroglycerin sublingual on a p.r.n. basis. 16. Nystatin topical powder 3 times a day p.r.n. 17. Potassium chloride 20 mEq daily. 18. Aldactone was discontinued. 19. Mag oxide 400 mg daily. LABORATORY DATA AND STUDIES PERFORMED DURING THE HOSPITAL STAY: On 08/07/18, white blood cell count 6.8, hemoglobin 10.1, hematocrit 28, and platelets of 208. Sodium was 131, potassium 4.1, chloride 97, carbon dioxide 26, BUN 17, creatinine 1.72. Troponins range between 0.05 to 0.4. Brain natriuretic peptide was 606. INR on admission was 1.85. HOSPITAL COURSE: Veronica Sherwood is an 87-year-old female with a history of paroxysmal atrial fibrillation with multiple cardioversions in the past, who also had a recent hospital stay at the beginning of July 2018 after a wound abscess was diagnosed and I and D'd by orthopedic surgeon. The patient stated that she was doing well at home, ambulating with a walker, but for the past 2 days, she had been having more shortness of breath and palpitations. She came into the hospital with [id number] diastolic CHF and a rapid atrial fibrillation. She was placed on Cardizem drip, but unfortunately that was not successful and the patient needed to be cardioverted by Dr. Thompson on . She was cardioverted successfully. The patient also had hypomagnesemia at admission, which could have contributed to the patient developing atrial fibrillation. After the cardioversion, she was observed overnight on telemetry monitored bed with no evidence of further arrhythmias. She underwent physical therapy evaluation and was deemed to be a good candidate for going home and ambulate with a rolling walker. The patient also was evaluated briefly by orthopedic service and the sae were removed from the area of the left incision and it was completely healed by the time of discharge. Dr. Thompson recommended for the patient to have her Aldactone stopped due to her severe hypomagnesemia. The patient also was placed on magnesium supplement. Otherwise , she appeared euvolemic and she is going to be placed on Lasix at her home dose. I suspect the CHF was exacerbated by her atrial fibrillation with opportunistic response. For physical examination at discharge, please see the progress note. DISPOSITION: Discharged to home. CONDITION AT DISCHARGE: Stable. Please note that this is a short summary of the patient's hospital stay. Please refer to further medical records for details. TIME SPENT: Approximately 45 minutes was spent on the patient's discharge. [id number]/[facility] #: [id number] MTDD
[2018-08-08 03:27] VITALS: BP 137/43
[2018-08-08] MEDS: Levothyroxine TAB* 25 MCG TAB PO SCH (05:20)
[2018-08-08] MEDS ORDERED: Magnesium Oxide TAB* 400 MG PO SCH (09:00)
[2018-08-08] MEDS: Folic Acid TAB* 1 MG PO SCH (09:49)
[2018-08-08] MEDS: Ferrous Sulfate TAB* 325 MG PO SCH (09:49)
[2018-08-08] MEDS: Aspirin EC TAB* 81 MG TAB.EC PO SCH (09:49)
[2018-08-08] MEDS: Atorvastatin* 40 MG TAB PO SCH (09:50)
[2018-08-08] MEDS: Amiodarone TAB* 200 MG PO SCH (09:50)
[2018-08-08] MEDS: Docusate CAP* 100 MG PO SCH (09:51)
[2018-08-08] MEDS: Apixaban* 2.5 MG TAB PO SCH (09:51)
[2018-08-08] MEDS: Metoprolol Tartrate TAB* 25 MG PO SCH (09:51)
[2018-08-08] MEDS: Potassium Chlor TAB* 20 MEQ TAB.ER PO SCH (09:52)
[2018-08-08] MEDS: Furosemide TAB* 40 MG PO SCH (09:52)
[2018-08-08] MEDS: Multivitamins/Minerals TAB PO SCH (09:52)
[2018-08-08] MEDS: Cyanocobalamin TAB* 500 MCG PO SCH (09:53)
== END 2018-08-08 11:41 | disposition home or self-care (01) | DRG 308 ==
LOC: ED 13:41 → INTOOBSV 17:31 → ICU 17:31 → OBSVTOIN 08-06 14:00 → MEDTELE 08-07 00:18
PROVIDERS: ADMIT Student in an Organized Health Care Education/Training Program; ATTEND Internal Medicine
PROC: 5A2204Z Restoration of Cardiac Rhythm, Single (ICD-10-PCS; principal; 2018-08-06 09:00)
DX: I48.0 Paroxysmal atrial fibrillation (principal); I50.33 Acute on chronic diastolic (congestive) heart failure; E87.1 Hypo-osmolality and hyponatremia; I13.0 Hypertensive heart and chronic kidney disease with heart failure and stage 1 through stage 4 chronic kidney disease, or unspecified chronic kidney disease; I24.8 Other forms of acute ischemic heart disease; I25.10 Atherosclerotic heart disease of native coronary artery without angina pectoris; E78.00 Pure hypercholesterolemia, unspecified; I73.9 Peripheral vascular disease, unspecified; M19.90 Unspecified osteoarthritis, unspecified site; Z96.1 Presence of intraocular lens; H04.129 Dry eye syndrome of unspecified lacrimal gland; E03.9 Hypothyroidism, unspecified; E78.5 Hyperlipidemia, unspecified; J44.9 Chronic obstructive pulmonary disease, unspecified; E83.42 Hypomagnesemia; R74.8 Abnormal levels of other serum enzymes; I47.2 Ventricular tachycardia; K58.1 Irritable bowel syndrome with constipation; N18.3 Chronic kidney disease, stage 3 (moderate); D64.9 Anemia, unspecified; I08.1 Rheumatic disorders of both mitral and tricuspid valves; E87.6 Hypokalemia; Z95.5 Presence of coronary angioplasty implant and graft; I25.2 Old myocardial infarction; Z95.2 Presence of prosthetic heart valve; Z98.42 Cataract extraction status, left eye; Z98.41 Cataract extraction status, right eye; Z82.49 Family history of ischemic heart disease and other diseases of the circulatory system; Z79.01 Long term (current) use of anticoagulants; Z79.82 Long term (current) use of aspirin
CPT/HCPCS: 36415; 71045; 80048; 80053; 81003; 81015; 83605; 83735; 83880; 84443; 84484; 85025; 85610; 87086; 87641; 92960; 93005; 99156; 99285; A9270-GY; G0378; G8978-GP-CK; G8979-GP-CI; G8987-GO-CJ; G8988-GO-CJ; G8989-GO-CJ; J1940; J2250; J2310; J3010; J3475

== ENCOUNTER 2018-08-18 08:59 | Emergency (ER) | payer MEDICARE ==
--- OUTSIDE RECORDS SUMMARY | 2018-08-18 09:09 | XMS REPORT | Continuity of Care Document ---
:1930 External Reference #:[id number] Author Name Helene Johnson Care Team Providers Name Role Phone Susy Quevedo MD Primary Care Physician Unavailable Payers Date Identification Numbers Payment Provider Subscriber Policy Number: [id number] [employer] Veronica Bhat Group Number: [id number] [address] PayID: [id number] [place] [address] Effective: 1995 Policy Number: [id number] Medicare Elizabeth Churey Expires: 2017 PayID: [id number] [address] [place] [address] Problems Active Problems Provider Date Aortic valve [...] Talib Medrano 10/17/2016 0.4mg needed for chest Blayne M.DCasey Tablets Sub pain Potassium Chloride ER 1 tabs by mouth 90tabs Talib Medrano 06/04/2012 daily Brand, M.D. 10Meq Tablets ER Amiodarone HCL every other [...] 1 tablet po twice 60tabs Unknown daily [id number] Tablets Colace 1 po tid 180caps Unknown [...] Harris 01/10/2018 - bottle after dinner MD Mikcey 04/24/2018 1.745GM/30ML Solution two days before your [...] qd 90tabs Talib DCasey 06/04/2012 - 5mg Sandoval Cisneros 03/12/2013 Tablets [...] Date Facility Test Result H/L Range Note Urinalysis Profile 08/05/2018 [facility] Urine Color Yellow [address] [place] [address] [phone] Urine Appearance Clear Urine Specific [place] 1.005 Low 1.010-1.030 Urine pH 6.0 N 5-9 Urine Urobilinogen Negative Negative Urine Ketones Negative Negative Urine Protein Negative Negative Urine Leukocytes 1+ Abnormal Negative Urine Blood Negative Negative Urine Nitrite Negative Negative Urine Bilirubin Negative Negative Urine Glucose Negative Negative Urine White Blood Cell Trace(0-5/hpf) Absent Urine Red Blood Cell Absent Absent Urine Bacteria Absent Absent Urine Culture And 08/05/2018 [facility] Urine Culture SEE RESULT [address] [place] [address] [phone] Laboratory test 02/21/2018 [facility] Surgical SEE RESULT [address] [place] [address] [phone] Laboratory test 12/28/2014 [facility] Inr/Protime 3.66 High 0.78- finding [address] 1.07 [place] [address] [phone] CBC Auto Diff 12/28/2014 [facility] White Blood 4.9 10^3/uL N 4.8-[address] Count 0.8 [place] [address] [phone] Red Blood Count 3.83 10^6/uL Low 4.0-5.4 [...] % 0 N Comp Metabolic Panel 12/28/2014 [facility] Sodium 133 mmol/L N 133-[address] [place] [address] [phone] Potassium 3.6 mmol/L N 3.5-5.0 Chloride 98 [...] 31.2 N >60 Egfr 40.1 N >60 3 Laboratory test 12/28/2014 [facility] Magnesium 1.8 mg/dL Low 1.9-2.[address] [place], [place] [address] [phone] Troponin-I (TnI) 0.00 ng/mL N <0.03 4 TSH (Thyroid Stim Horm) 2.86 ?IU/mL N 0.34-5.60 Basic Metabolic Panel 01/25/2014 [facility] Sodium 138 mmol/L N 133-145 5 [address] [place], [place] [id number] [phone] Potassium 2.7 mmol/L Low 3.5-5.0 6 Chloride 97 mmol/L Low 101-111 Co2 Carbon Dioxide 30 mmol/L N 22-32 Anion Gap 11 mmol/L N 2-11 Glucose 136 mg/dL High 70-100 Blood Urea Nitrogen 27 mg/dL High 6-24 Creatinine 1.68 mg/dL High 0.51-0.95 BUN/Creatinine Ratio 16.1 N 8-20 Calcium 8.8 mg/dL N 8.6-10.3 Egfr Non- 29.1 N >60 Egfr 37.4 N >60 7 Inr/Protime 01/25/2014 [facility] Inr 2.32 High 0.85-1.[address] [place], [place] [id number] [phone] CBC No Diff 01/25/2014 [facility] White Blood 5.3 10^3/uL N 4.8-10.[address] [place] [address] [phone] Red Blood Count 3.37 10^6/uL Low 4.0-5.4 Hemoglobin 10.5 g/dL Low 12.0-16.0 Hematocrit 33 % Low 35-47 Mean Corpuscular Volume 97 fL N 80-97 Mean Corpuscular Hemoglobin 31 pg N 27-31 Mean Corpuscular HGB Conc 32 g/dL N 31-36 Red Cell Distribution Width 15 % N 10.5-15 Platelet Count 131 10^3/uL Low 150-450 Mean Platelet Volume 7 um3 Low 7.4-10.4 Laboratory 01/25/2014 [facility] TSH (Thyroid 2.83 N 0.34- 5.60 test finding [address] Stimulating IU/[place] [address] Horm) [phone] Laboratory 12/07/2013 [facility] Inr 1.89 High 0.85-1.06 test finding [address] [place] [address] [phone] Laboratory 08/24/2013 [facility] Inr 1.99 High 0.85-1.06 test finding [address] [place] [address] [phone] Laboratory 07/27/2013 [facility] Inr 1.96 High 0.85-1.06 test finding [address] [place] [address] [phone] Laboratory 07/06/2013 [facility] Inr 1.82 High 0.85-1.06 test finding [address] [place] [address] [phone] Laboratory 06/08/2013 [facility] Inr 3.57 High 0.85-1.06 test finding [address] [place] [address] [phone] Laboratory 05/25/2013 [facility] Inr 1.63 High 0.85-1.06 test finding [address] [place] [address] [phone] Laboratory 04/27/2013 [facility] Inr 2.48 High 0.85-1.06 test finding [address] [place] [address] [phone] Laboratory 03/30/2013 [facility] Inr 2.02 High 0.85-1.06 test finding [address] [place] [address] [phone] Inr/Protime 03/02/2013 Inr 2.05 High 0.85-1.06 8 Laboratory 02/02/2013 [facility] Inr 2.31 High 0.85-1.06 9 test finding [address] [place] [address] [phone] Laboratory 01/05/2013 [facility] Inr 2.30 High 0.87-0.97 test finding [address] [place] [address] [phone] Laboratory 12/08/2012 [facility] Inr 2.67 High 0.87-0.97 test finding [address] [place] [address] [phone] Laboratory 11/11/2012 [facility] Inr 2.42 High 0.87-0.97 test finding [address] [place] [address] [phone] Laboratory 10/20/2012 [facility] Inr 2.22 High 0.87-0.97 test finding [address] [place] [address] [phone] Laboratory 10/06/2012 [facility] Inr 1.82 High 0.87-0.97 test finding [address] [place] [address] [phone] Laboratory 09/22/2012 [facility] Inr 1.69 High 0.87-0.97 test finding [address] [place] [address] [phone] Laboratory 08/25/2012 [facility] Inr 1.89 High 0.87-0.97 test finding [address] [place] [address] [phone] Laboratory 07/28/2012 [facility] Inr 2.25 High 0.87-0.97 test finding [address] [place] [address] [phone] Laboratory 06/30/2012 [facility] Inr 2.30 High 0.87-0.97 test finding [address] [place] [address] [phone] Laboratory 06/09/2012 [facility] Inr 1.83 High 0.87-0.97 10 test finding [address] [place] [address] [phone] CBC With 05/01/2010 [facility] White Blood 5.7 CUMM 4.8-10.8 Manual Diff 101 [facility] [place] [address] [phone] Red Cell Count 3.29 CUMM Low 4.2-5.4 [...] 3.5 Anisocytosis SLIGHT Ovalocytes FEW Laboratory 05/01/2010 [facility] Methylmalonic 0.43 Abnormal < =0.40 [address] Acid nmol/[place] [address] [phone] CBC 11/07/2009 [facility] White Blood 7.1 CUMM 4.8-10.8 W/Electronic [address] [place] [address] [phone] Red Cell Count 3.43 CUMM Low 4.2-5.4 [...] 0 0-0.2 Iron And Tibc Serum 11/07/2009 [facility] Iron Total 72 g/dL [address] [place] [address] [phone] Unsaturated Iron Binding 270 g/dL Total Iron Binding Capacity 342 g/dL 250-450 % Iron Saturation 21 % 15-55 Vitamin D,25 11/07/2009 [facility] 25-Hydroxy Vitamin <4.0 ng/ mL () Hydroxy [address] [place] [address] [place] [address] [phone] 25-Hydroxy Vitamin D3 27 ng/mL () 25-Hydroxy Vitamin D Total 27 ng/mL () 12 Vitamin D 1,25 11/07/2009 [facility] Vitamin D, 1,25 51 pg/mL 18-[address] Dihydroxy D,2 [place] [address] [phone] Vitamin B12 11/07/2009 [facility] Vitamin B12 300 pg/mL 180- 914 And Folate [address] [facility] [place] [place] [address] [phone] Folic Acid 14.1 NG/ML 2-16 Laboratory test 11/07/2009 [facility] Ferritin 55 NG/ML 11.0- 307 finding [address] [place] [address] [phone] Urinalysis 06/09/2009 [facility] Ua Color YELLOW Yellow W/Microscopic [address] [place] [address] [phone] Appearance-Urine CLEAR Clear Specific [place]-Ur 1.022 1.010-1.030 Esterase-Urine TRACE Abnormal Negative Nitrite NEGATIVE Negative Qlrzjxaepyba-Oi-ICC NEGATIVE Negative Protein-Urine NEGATIVE Negative PH-Urine 5.5 5-9 Blood-Urine NEGATIVE Negative Ketones-Urine NEGATIVE Negative Bilirubin-Ur NEGATIVE Negative Glucose-Urine NEGATIVE Negative WBC-Urine 0-2 0-5 RBC-Urine 0-2 0-2 Lipid Profile 06/09/2009 [facility] Triglyceride 74 mg/dL 40- 200 (Trig/Chol/HDL) [address] [place] [address] [phone] Cholesterol 172 mg/dL Less Than 200 14 High Density Lipoprotein 48 mg/dL 40-60 15 Cholesterol/HDL Ratio 3.58 AVERAGE 1-4.44 Low Density Lipoprotein 109 mg/dL High Less Than 100 16 Laboratory test 06/09/2009 [facility] TSH 1.24 MIU/ML 0.34- 5.60 finding [address] [place] [address] [phone] Comp Metabolic 06/09/2009 [facility] Sodium 137 mmol/L 135- 145 Panel [address] [place] [address] [phone] Potassium 4.1 mmol/L 3.5-5.0 Chloride 105 mmol/L 101-111 Co2 (Carbon Dioxide) 28.0 mmol/L 22-32 Anion Gap 4.0 mmol/L 2-11 17 Glucose 111 mg/dL High 70-100 18 BUN 24 mg/dL 6-24 Creatinine 1.00 mg/dL 0.50-1.40 One Over Creatinine 1.00 BUN/Creatinine Ratio 24.0 High 8-20 Calcium 8.9 mg/dL 8.1-9.9 19 Total Protein 6.5 GM/DL 6.2-8.1 Albumin 3.4 GM/DL 3.2-5.2 Globulin 3.1 GM/DL 2-4 Albumin/Globulin Ratio 1.1 1-3 Bilirubin Total 0.6 mg/dL 0.4-1.5 20 Alkaline Phosphatase 89 U/L 30-110 Alt (SGPT) 15 U/L 14-54 Ast (Sgot) 20 U/L 12-42 eGFR Non- 57.0 > 60 eGFR 69.0 > 60 21 CBC With 06/09/2009 [facility] White Blood 7.4 CUMM 4.8-10.8 Electronic Diff [address] [place] [address] [phone] Red Cell Count 3.51 CUMM Low 4.2-5.4 [...] Name: VERONICA BHAT : [address]: Nicole Guerra MD Acct: [id number] Unit: [id number] AGE: 87 Location: [address] Re08/06/18 SEX: F Status: ADM IN SPEC: [id number] LACEY: 08/05/[address] [facility] [address]: Dinora CURTIS REQ: [id number] RECD: 08/05/18 STATUS: DAVID CARDENAS DR: Carlos A Quevedo MD PC _ SOURCE: URINE SPDESC: ORDERED: Urine Culture Procedure Result Reported Site Urine Culture Final 08/07/18- 0840 ML Few Enterobacteriacae; possible contamination. * - [facility] . END OF REPORT DEPARTMENT OF PATHOLOGY, [address] [place] [address] Brendon Nicole M.D. Director [facility] # [id number] 2 SEE RESULT BELOW Name: VERONICA BHAT : [address]: David Arevalo MD Acct: [id number] Unit: [id number] AGE: 87 Location: ENDO Re02/21/18 SEX: F Status: DEP REF SPEC: [id number] LACEY: 02/21/18-[address] [facility] [address]: David Arevalo MD REQ: [id number] RECD: 02/21/18415 STATUS: RY CARDENAS DR: Susy Quevedo MD [...] by and Reported on: Brendon Nicole MD 130 END OF REPORT DEPARTMENT OF PATHOLOGY, [address] [place] [address] Brendon Nicole M.D. Director [facility] # [id number] 3 Because ethnic data is not always readily [...] 15-29 5 Kidney failure <15 (or dialysis) 4 Reference Range and Interpretation: TnI (ng/mL) Interpretation Less Than 0.03 ng/mL Not supportive of diagnosis of CT 0.03 - 0.50 ng/mL Indeterminate: suggest serial studies if clinically indicated. Greater than 0.5 ng/mL Consistent with diagnosis of CT 5 CALL RESULTS TO 4591 6 Critical Result K:2.7 Called to [id number] at: 10:42:59 by: Read back by:[id number] Potassium reference range changed effective 01/10/14 7 Because ethnic data is not always readily [...] 15-29 5 Kidney failure <15 (or dialysis) 8 Please note the change in the INR reference range effective 13. 9 Please note the change in the INR reference range effective 13. 10 Please note the change in INR reference [...] from prosthetic heart valves 2.5 - 3.5 11 In this sample, the concentration of methylmalonic acid (MMA) was minimally elevated. As the upper limit of the reference range varies in different laboratories from 0.4 to 0.6 nmol/mL, this finding could be considered normal, especially if the patient does not show other signs of vitamin B12 deficiency. Test Performed by: [facility] of Lab Med and Pathology [address] [place] [address] [employer] Numerical Control Programmer: Simba Duarte III, M.D. 12 -- REFERENCE VALUE -- 25-HYDROXY D TOTAL (D2+D3) Optimum levels in the normal population are 25-80 Test Performed by: [facility] Path[facility] [address] [place] [address] [employer] Numerical Control Programmer: Simba Duarte III, M.D. 13 Test Performed by: [facility] Path[facility] [address] [place] [address] [employer] Numerical Control Programmer: Simba Duarte III, M.D. 14 CHOLESTEROL INTERPRETATION: Desirable: Less than 200 MG/DL Borderline-High Risk: 200-239 MG/DL High-Risk: 240 MG/DL and over 15 HDL INTERPRETATION: Undesirable: High Risk: Less than 40 MG/DL Desirable: Low Risk: Greater than 60 MG/DL 16 LDL INTERPRETATION: Low Risk Optimal Level: LDL Less than 100 MG/DL Near or Above Optimal: LDL 100-129 MG/DL Borderline High Risk: LDL 130-159 MG/DL High Risk: LDL 160-189 MG/DL Very High Risk: LDL Greater than 189 MG/DL 17 Anion gap measurement may be of limited value in the presence of any alkalosis, especially in a combined acid base disorder. . 18 Note change in reference range as of 10/30/07. The change was based on recommendations from the [place] [employer]. 19 Please note change in reference range effective 07 . 20 A metabolite of Naproxen, O-desmethylnaproxen, has been shown to interfere with the [place] method for measuring total bilirubin. Samples from patients who have taken Naproxen have shown spurious elevation in total bilirubin levels. 21 Because ethnic data is not always readily [...] dialysis) Procedures Date Code Description Status 07/25/2018 56548 EKG Tracing & Interpretation Completed 07/08/2018 06712 Secondary Closure Of Surgical Wound Or Dehiscence Completed Extensive Or Co 07/08/2018 53594 Secondary Closure Of Surgical Wound Or Dehiscence Completed Extensive Or Co 07/07/2018 64958 ECHO Transthorasic Realtime 2D W Doppler & Color Flow Completed Hosp 06/09/2018 35035 EKG, Interpretation Only Completed 06/09/2018 32983 Cardioversion Completed 05/30/2018 84812 EKG Tracing & Interpretation Completed 05/06/2018 63884 Open TX Of Femoral FX,Promimal End,Neck Internal Completed Fixation 05/06/2018 36515 Open TX Of Femoral FX,Promimal End,Neck Internal Completed Fixation 05/06/2018 48161 Open TX Of Femoral FX,Promimal End,Neck Internal Completed Fixation 05/05/2018 67330 ECHO Transthorasic Realtime 2D W Doppler & Color Flow Completed Hosp 05/05/2018 96963 EKG, Interpretation Only Completed 04/25/2018 28071 Short Arm Cast Application Completed 02/21/2018 11661187 Colonoscopy Completed 02/21/2018 60782 Colonoscopy Flexible Remove Tumor/Polyp/Lesion Snare Completed Technique 12/27/2017 67102 EKG Tracing & Interpretation Completed 12/25/2017 65335 Anoscopy Completed 06/20/2017 03406 EKG Tracing & Interpretation Completed 05/28/2017 11834 Cardioversion Completed 04/10/2017 20960 EKG Tracing & Interpretation Completed 03/06/2017 03530 Cardioversion Completed 10/23/2016 46515 EKG Tracing & Interpretation Completed 10/17/2016 07725 EKG, Interpretation Only Completed 10/16/2016 21734 EKG, Interpretation Only Completed 10/15/2016 66270 Cath PLMT&NJX L Ventriculog Img S&I Completed 10/15/2016 98588 EKG, Interpretation Only Completed 10/15/2016 18130 Revascularization Acute Total/Subtotal Occlusion Completed 10/14/2016 50488 EKG, Interpretation Only Completed 10/12/2016 47732 Treadmill Interp/Report Only Completed 10/12/2016 41841 Stress Test Supervsn W/Out I/R Completed 10/11/2016 85911 Cardioversion Completed 10/11/2016 11913 Echocardiogram, Limited Study Completed 09/17/2016 60275 Mobile Cardiovascular Telemetry Over 24 HR Up To 30 Completed Days 09/12/2016 81976 EKG Tracing & Interpretation Completed 08/27/2016 43777 ECHO Transthorasic Realtime 2D W Doppler & Color Flow Completed Hosp 08/27/2016 59138 EKG, Interpretation Only Completed 08/27/2016 74328 Cardioversion Completed 08/26/2016 80218 EKG, Interpretation Only Completed 07/05/2016 38275 ECHO Transthorasic Realtime 2D W Doppler & Color Flow Completed Hosp 10/14/2015 73828 EKG Tracing & Interpretation Completed 08/13/2015 16713 EKG, Interpretation Only Completed 08/13/2015 02874 Cardioversion Completed 01/27/2015 86393 EKG Tracing & Interpretation Completed 12/28/2014 81497 EKG, Interpretation Only Completed 12/28/2014 70018 Cardioversion Completed 03/03/2014 19266 EKG Tracing & Interpretation Completed 01/26/2014 27150 EKG, Interpretation Only Completed 01/26/2014 05317 Cardioversion Completed 01/25/2014 71751 Cardioversion Completed 02/20/2013 38523 ECHO Transthoracic, Real-Time 2D With Doppler And Color Completed Flow 05/27/2012 85386 ECHO Transthoracic, Real-Time 2D With Doppler And Color Completed Flow 05/27/2012 05568 ECHO Transthoracic, Real-Time 2D With Doppler And Color Completed Flow 05/23/2012 33618 Holter Monitoring 24 HR New Completed 04/24/2012 79926 EKG Tracing & Interpretation Completed 01/10/2012 03928 RT & lt Cath W/Injx HRT Art&L Ventr Img S&I Completed 01/01/2012 74137 Carotid Doppler,Bilateral Completed 12/26/2011 44969 Stress Test Completed 04/01/2010 10659 Treadmill Interp/Report Only Completed 04/01/2010 58908 Stress Test Supervsn W/Out I/R Completed 04/21/2009 83549 EKG Tracing & Interpretation Completed 04/19/2009 91551362 Colonoscopy Completed 04/04/2009 70423 EKG, Interpretation Only Completed Encounters Type Date Location Provider Dx Diagnosis Office Visit 07/25/2018 [facility] Talib Medrano 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 following a Hospitalists procedure, other surgical site, init J96.01 Acute respiratory failure with hypoxia I13.0 Hyp hrt & chr kdny dis w hrt fail and stg 1-4/unsp chr kdny N39.0 Urinary tract infection, site not specified B96.1 Klebsiella pneumoniae as the cause of diseases classd elswhr I47.2 Ventricular tachycardia I48.91 Unspecified atrial fibrillation R33.9 Retention of urine, unspecified Office Visit 07/15/2018 9:00a [facility] Vikki Christo, I13.0 Hyp hrt & chr Assoc,pc SHIPPING SUPPORT CLERK kdny dis w hrt Hospitalists fail and stg 1-4/unsp chr kdny N18.3 Chronic kidney disease, stage 3 (moderate) I47.2 Ventricular tachycardia I48.0 Paroxysmal atrial fibrillation Office Visit 07/14/2018 [facility] T81.41xD Infct fol a 5:52a For Infectious Bishop, SHIPPING SUPPORT CLERK proc, superfic Diseases incisional surgical site, subs N39.0 Urinary tract infection, site not specified B96.1 Klebsiella pneumoniae as the cause of diseases classd elswhr N18.3 Chronic kidney disease, stage 3 (moderate) Office Visit 07/14/2018 [facility] Nicole Guerra, I47.2 Ventricular 8:59a Assoclo M.D. tachycardia Hospitalists N18.3 Chronic kidney disease, stage 3 (moderate) I13.0 Hyp hrt & chr kdny dis w hrt fail and stg 1-4/unsp chr kdny Office Visit 07/13/2018 [facility] Nicole Guerra, L02.91 Cutaneous 8:59a Assoc,lo Nick abscess, Hospitalists unspecified R33.9 Retention of urine, unspecified I13.0 Hyp hrt & chr kdny dis w hrt fail and stg 1-4/unsp chr kdny N18.3 Chronic kidney disease, stage 3 (moderate) Office Visit 07/12/2018 [facility] Nicole Guerra, R33.9 Retention of 8:57a Assoc,lo Nick urine, Hospitalists unspecified I13.0 Hyp hrt & chr kdny dis w hrt fail and stg 1-4/unsp chr kdny N18.3 Chronic kidney disease, stage 3 (moderate) I47.2 Ventricular tachycardia Office Visit 07/11/2018 [facility] T81.41xD Infct fol a 7:56a For Infectious Edna, SHIPPING SUPPORT CLERK proc, superfic Diseases incisional surgical site, subs N39.0 Urinary tract infection, site not specified B96.1 Klebsiella pneumoniae as the cause of diseases classd elsr N18.3 Chronic kidney disease, stage 3 (moderate) Office Visit 07/11/2018 8:56a [facility] Priti R33.9 Retention of Assoc,lo Keller, DO urine, Hospitalists unspecified L02.91 Cutaneous abscess, unspecified J96.01 Acute respiratory failure with hypoxia I13.0 Hyp hrt & chr kdny dis w hrt fail and stg 1-4/unsp chr kdny N18.3 Chronic kidney disease, stage 3 (moderate) Office Visit 07/10/2018 8:55a [facility] Sugey I47.2 Ventricular Assoc,lo Blackburn, tachycardia Hospitalists SHIPPING SUPPORT CLERK N18.3 Chronic kidney disease, stage 3 (moderate) I50.33 Acute on chronic diastolic (congestive) heart failure R33.9 Retention of urine, unspecified Office Visit 07/09/2018 [facility] T81.41xD Infct fol a 7:53a For Infectious Edna SHIPPING SUPPORT CLERK proc, superfic Diseases incisional surgical site, subs D72.829 Elevated white blood cell count, unspecified N39.0 Urinary tract infection, site not specified B96.1 Klebsiella pneumoniae as the cause of diseases classd elswhr N18.3 Chronic kidney disease, stage 3 (moderate) Office Visit 07/08/2018 8:54a [facility] I47.2 Ventricular Assoc,lo Blackburn, tachycardia Hospitalists SHIPPING SUPPORT CLERK I50.33 Acute on chronic diastolic (congestive) heart failure I48.0 Paroxysmal atrial fibrillation N18.4 Chronic kidney disease, stage 4 (severe) Office Visit 07/08/2018 [facility] Erin Soliz T81.41xA Infct fol a 7:48a For Infectious Bishop, SHIPPING SUPPORT CLERK proc, superfic Diseases incisional surgical site, init N39.0 Urinary tract infection, site not specified B96.1 Klebsiella pneumoniae as the cause of diseases classd elswhr N18.3 Chronic kidney disease, stage 3 (moderate) Z96.642 Presence of left artificial hip joint Office Visit 07/07/2018 8:53a [facility] Sugey I47.2 Ventricular Assoc,lo Blackburn, tachycardia Hospitalists SHIPPING SUPPORT CLERK I50.33 Acute on chronic diastolic (congestive) heart failure I48.0 Paroxysmal atrial fibrillation N18.4 Chronic kidney disease, stage 4 (severe) Office Visit 07/06/2018 8:53a [facility] Galo N17.9 Acute kidney Assoc,lo Cowan M.D. failure, Hospitalists unspecified I47.2 Ventricular tachycardia I11.0 Hypertensive heart disease with heart failure I50.33 Acute on chronic diastolic (congestive) heart failure I48.91 Unspecified atrial fibrillation Office Visit 07/05/2018 8:52a [facility] Galo N17.9 Acute kidney Assoc,lo Cowan M.D. failure, Hospitalists unspecified E87.1 Hypo-osmolality and hyponatremia I50.31 Acute diastolic (congestive) heart failure I11.0 Hypertensive heart disease with heart failure Office Visit 07/05/2018 4:26p [facility] Carlos A Waters I47.2 Ventricular Of Nathaniel Luz M.D., tachycardia FACC, FASNC Z98.61 Coronary angioplasty status Z95.2 Presence of prosthetic heart valve Office Visit 07/04/2018 [facility] Galo E87.1 Hypo-osmolality and 8:51a Assoc,lo Cowan M.D. hyponatremia Hospitalists N17.9 Acute kidney failure, unspecified I48.91 Unspecified atrial fibrillation Office Visit 07/03/2018 8:50a [facility] Charlette N17.9 Acute kidney Assoc,lo Weems, DO [...] of right shoulder, init Office Visit 06/10/2018 [facility] I48.91 Unspecified atrial 4:48p Asslo blunt M.D. fibrillation Hospitalists E03.9 Hypothyroidism, unspecified D64.9 Anemia, unspecified Office Visit 06/09/2018 [facility] I48.91 Unspecified atrial 9:14a Assoclo M.D. fibrillation Hospitalists E03.9 Hypothyroidism, unspecified D64.9 Anemia, unspecified Office Visit 06/08/2018 1:34p [facility] Conchita Thompson, I48.0 Paroxysmal atrial Of Side Sawyer M.D. 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 atrial Hospitalists fibrillation D63.1 Anemia in chronic kidney disease N18.3 Chronic kidney disease, stage 3 (moderate) Office Visit 06/06/2018 3:40p [facility] Jesus Alberto S. 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 fibrillation Office Visit 06/05/2018 10:28a [facility] Jesus Alberto S. 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 I48.91 Unspecified atrial Of Side Sawyer Foster, N.P. fibrillation I10 Essential (primary) hypertension R60.9 Edema, unspecified I50.32 Chronic diastolic (congestive) heart failure Office Visit 05/27/2018 1:00p Orthopedic Aaron F S72.012D Unsp intracap Services Of MD Alex fx left femur, C.M.A. subs for clos fx w routn heal S52.514D Nondisp fx of r radial styloid pro, 7thD Office Visit 05/14/2018 [facility] S72.012A Unsp intracapsular 9:31a Asslo blunt M.D. fracture of left Hospitalists femur, init for clos fx D62 Acute posthemorrhagic anemia I48.91 Unspecified atrial fibrillation I10 Essential (primary) hypertension W19.xxxA Unspecified fall, initial encounter Office Visit 05/12/2018 [facility] Carson John D62 Acute 9:30a Assoclo MD posthemorrhagic Hospitalists anemia R65.10 Sirs of non-infectious origin w/o acute organ dysfunction N17.9 Acute kidney failure, unspecified I48.91 Unspecified atrial fibrillation S72.002A Fracture of unsp part of neck of left femur, init M79.669 Pain in unspecified lower leg I10 Essential (primary) hypertension Z95.5 Presence of coronary angioplasty implant and graft Office Visit 05/11/2018 [place] [address] Acute 9:30a lo Murcia MD posthemorrhagic Hospitalists anemia R65.10 Sirs of non-infectious origin w/o acute organ dysfunction N17.9 Acute kidney failure, unspecified S72.002A Fracture of unsp part of neck of left femur, init I48.91 Unspecified atrial fibrillation I10 Essential (primary) hypertension Z95.5 Presence of coronary angioplasty implant and graft Office Visit 05/10/2018 [place] [address] Acute 9:29a lo Murcia MD posthemorrhagic Hospitalists anemia R65.10 Sirs of non-infectious origin w/o acute organ dysfunction N17.9 Acute kidney failure, unspecified I48.91 Unspecified atrial fibrillation S72.002A Fracture of unsp part of neck of left femur, init I10 Essential (primary) hypertension Z95.5 Presence of coronary angioplasty implant and graft Office Visit 05/09/2018 [facility] R65.10 Sirs of 9:29a lo Murcia MD non-infectious Hospitalists origin w/o acute organ dysfunction N17.9 Acute kidney failure, unspecified D62 Acute posthemorrhagic anemia I48.91 Unspecified atrial fibrillation S72.002A Fracture of unsp part of neck of left femur, init I10 Essential (primary) hypertension Z95.5 Presence of coronary angioplasty implant and graft Office Visit 05/08/2018 [facility] R65.10 Sirs of 9:29a Asslo blunt D.O. non-infectious Hospitalists origin w/o acute organ dysfunction N17.9 Acute kidney failure, unspecified D62 Acute posthemorrhagic anemia S72.002A Fracture of unsp part of neck of left femur, init I48.91 Unspecified atrial fibrillation I10 Essential (primary) hypertension Z95.5 Presence of coronary angioplasty implant and graft Office Visit 05/07/2018 [facility] Olga Lidia R65.10 Sirs of 9:28a Assoc,pc Melissa Ewing non-infectious Hospitalists origin w/o acute organ dysfunction N17.9 Acute kidney failure, unspecified S72.002A Fracture of unsp part of neck of left femur, init I48.91 Unspecified atrial fibrillation I10 Essential (primary) hypertension Z95.5 Presence of coronary angioplasty implant and graft Office Visit 05/06/2018 [facility] Rubina R65.11 Sirs of 9:26a Assoc,lo Ireland M.D. non-infectious Hospitalists origin w acute organ dysfunction N17.9 Acute kidney failure, unspecified S72.002A Fracture of unsp part of neck of left femur, init I48.91 Unspecified atrial fibrillation Z95.5 Presence of coronary angioplasty implant and graft Office Visit 05/05/2018 9:26a [facility] Priti S72.002A Fracture of Assoc,lo Keller, unsp [...] of left femur, init Office Visit 05/04/2018 [facility] Charlette S72.012A Unsp intracapsular 9:23a Assoc,lo Weems, DO fracture of left Hospitalists femur, init for clos fx I48.0 Paroxysmal atrial fibrillation W19.xxxA Unspecified fall, initial encounter Office 05/04/2018 [facility] Marianne S72.002A Fracture of Visit 10:44a Of Tal Dailey M.D. unsp part of neck of left femur, init Office 04/25/2018 [facility] S52.514A Nondisp fx of Visit 10:30a Of [facility] AT Tyson Montez MD right radial styloid process, init for clos fx Office 01/09/2018 [facility] Dinora Venegas, K64.0 First degree Visit 10:00a [employer] hemorrhoids K62.5 Hemorrhage of anus and rectum Office Visit 12/27/2017 10:30a [facility] Talib Medrano I48.0 Paroxysmal atrial Of Nathaniel Cisneros M.D. 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 hemorrhoids Office Visit 06/20/2017 10:45a [facility] Talib Medrano I48.0 Paroxysmal atrial Of Nathaniel Cisneros M.D. fibrillation I25.10 Athscl heart disease of [place] coronary artery w/o ang pctrs Office Visit 04/10/2017 10:30a [facility] Talib D. I25.10 Athscl heart Of Nathaniel Cisneros M.D. disease of [place] coronary artery w/o ang pctrs I48.0 Paroxysmal atrial fibrillation Office Visit 12/05/2016 10:30a [facility] Talib D. I25.10 Athscl heart Of Nathaniel Cisneros M.D. disease of [place] coronary artery w/o ang pctrs I10 Essential (primary) hypertension I48.0 Paroxysmal atrial fibrillation Z95.2 Presence of prosthetic heart valve Office Visit 10/23/2016 2:15p [facility] Talib Medrano I25.10 Athscl heart Of [facility] Sandoval Cisneros disease of [place] coronary artery w/o ang pctrs I10 Essential (primary) hypertension I48.0 Paroxysmal atrial fibrillation Z95.2 Presence of prosthetic heart valve I25.2 Old myocardial infarction Office Visit 10/17/2016 [facility] I48.91 Unspecified atrial 8:26a Assoclo M.D. fibrillation Hospitalists E78.5 Hyperlipidemia, unspecified I25.10 Athscl heart disease of [place] coronary artery w/o ang pctrs I10 Essential (primary) hypertension Office Visit 10/16/2016 2:56p [facility] Harvey Saldana I49.5 Sick sinus Sandoval Richards syndrome I25.10 Athscl heart disease of [place] coronary artery w/o ang pctrs I10 Essential (primary) hypertension Office Visit 10/16/2016 9:58a [facility] Nemo Harris I21.4 Non-St elevation Of Side Sawyer AT [facility] MD Sourav, (Nstemi) [facility], FSCAI myocardial infarction I25.10 Athscl heart disease of [place] coronary artery w/o ang pctrs Office Visit 10/16/2016 [facility] Galo I48.91 Unspecified atrial 8:25a Assoc,lo Cowan M.D. fibrillation Hospitalists I25.10 Athscl heart disease of [place] coronary artery w/o ang pctrs E78.5 Hyperlipidemia, unspecified I10 Essential (primary) hypertension Office Visit 10/15/2016 [facility] Gal[place] I48.91 Unspecified atrial 8:25a Asslo blunt M.D. fibrillation Hospitalists I25.10 Athscl heart disease of [place] coronary artery w/o ang pctrs E78.5 Hyperlipidemia, unspecified I10 Essential (primary) hypertension Office Visit 10/14/2016 [facility] [place] I48.91 Unspecified atrial 8:24a Assoc,lo Cowan M.D. fibrillation Hospitalists I25.10 Athscl heart disease of [place] coronary artery w/o ang pctrs E78.5 Hyperlipidemia, unspecified Office Visit 10/14/2016 2:53p [facility] Harvey Saldana I48.0 Paroxysmal atrial Mauser, M.D. fibrillation I25.10 Athscl heart disease of [place] coronary artery w/o ang pctrs I21.4 Non-St elevation (Nstemi) myocardial infarction I49.5 Sick sinus syndrome Office Visit 10/13/2016 2:52p [facility] Harvey Saldana I48.0 Paroxysmal atrial Mauser, M.D. fibrillation I21.4 Non-St elevation (Nstemi) myocardial infarction I49.5 Sick sinus syndrome Office Visit 10/13/2016 8:24a [facility] Patricia June I48.91 Unspecified atrial Assoc,pc N.PCasey fibrillation Hospitalists I25.10 Athscl heart disease of [place] coronary artery w/o ang pctrs E78.5 Hyperlipidemia, unspecified I10 Essential (primary) hypertension Office Visit 10/12/2016 2:48p [facility] Harvey Saldana I48.0 Paroxysmal atrial Mauser, M.D. fibrillation I49.5 Sick sinus syndrome I21.4 Non-St elevation (Nstemi) myocardial infarction R94.31 Abnormal electrocardiogram [ECG] [EKG] Office Visit 10/12/2016 [facility] Olga Lidia I48.91 Unspecified atrial 8:23a Assoc,lo Ewing D.O. fibrillation Hospitalists I25.10 Athscl heart disease of [place] coronary artery w/o ang pctrs E78.5 Hyperlipidemia, unspecified I10 Essential (primary) hypertension Office Visit 10/11/2016 [facility] Leonardo I48.91 Unspecified 8:22a Assoc,lo Jensen N.P. atrial Hospitalists fibrillation E78.5 Hyperlipidemia, unspecified I25.10 Athscl heart disease of [place] coronary artery w/o ang pctrs I10 Essential (primary) hypertension Office Visit 10/11/2016 9:56a [facility] Harvey FCasey I10 Essential (primary) Mauser, M.D. hypertension I48.0 Paroxysmal atrial fibrillation I49.5 Sick sinus syndrome Z95.2 Presence of prosthetic heart valve R42 Dizziness and giddiness Office Visit 10/11/2016 2:54p [facility] Harvey FCasey I48.0 Paroxysmal atrial Mauser, M.D. fibrillation I49.5 Sick sinus syndrome Z95.2 Presence of prosthetic heart valve I10 Essential (primary) hypertension Office Visit 09/12/2016 8:30a [facility] Talib Medrano I48.0 Paroxysmal atrial Of Side Sawyer Brand M.D. fibrillation I10 Essential (primary) hypertension Z95.2 Presence of prosthetic heart valve Office 08/27/2016 [facility] Kushal I48.91 Unspecified Visit 2:01p Assoc,KIRSTEN Cruz atrial Hospitalists fibrillation R74.8 Abnormal levels of other serum enzymes Z95.2 Presence of prosthetic heart valve I10 Essential (primary) hypertension Office Visit 08/26/2016 10:02a [facility] Harvey FCasey I48.0 Paroxysmal atrial Mauser, M.D. fibrillation I10 Essential (primary) hypertension R79.89 Other specified abnormal findings of blood chemistry Office Visit 08/26/2016 2:00p [facility] Patricia June I48.91 Unspecified atrial Assoc,lo N.PCasey fibrillation Hospitalists R74.8 Abnormal levels of other serum enzymes Z95.2 Presence of prosthetic heart valve I10 Essential (primary) hypertension [facility] 07/04[facility]2016 [facility] R55 Syncope and Assoc,pc [place] collapse Hospitalists I48.91 Unspecified atrial fibrillation I25.10 Athscl heart disease of [place] coronary artery w/o ang pctrs I10 Essential (primary) hypertension Office Visit 02/08/2016 1:30p [facility] Hector Caputo, M25.562 Pain in left Of C.M.A. M.D. knee M17.0 Bilateral primary osteoarthritis of knee Office Visit 10/14/2015 11:45a [facility] Talib D. I48.1 Persistent atrial Of Nathaniel Cisneros M.D. fibrillation I10 Essential (primary) hypertension I35.0 Nonrheumatic aortic (valve) stenosis Z95.2 Presence of prosthetic heart valve Office Visit 08/13/2015 12:49p [facility] Talib D. I48.1 Persistent atrial Of Nathaniel Cisneros M.D. 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 I48.0 Paroxysmal atrial Of Nathaniel Cisneros M.D. fibrillation Z95.2 Presence of prosthetic heart valve R94.31 Abnormal electrocardiogram [ECG] [EKG] Office Visit 12/29/2014 3:53p [facility] Nicole Guerra, R42 Dizziness and Assoc,lo bravo Hospitalists I48.91 Unspecified atrial fibrillation E78.2 Mixed hyperlipidemia I10 Essential (primary) hypertension Office Visit 12/28/2014 3:52p [facility] Leonardo Jensen, R42 Dizziness and Assoc,pc N.Pierce bravo Hospitalists I48.91 Unspecified atrial fibrillation I10 Essential (primary) hypertension E78.2 Mixed hyperlipidemia Office Visit 08/13/2014 1:30p [facility] Talib D. 427.31 Atrial Of Nathaniel Cisneros M.D. Fibrillation 424.1 Aortic Valve Disorder Office Visit 03/03/2014 9:45a [facility] Talib Medrano 427.31 Atrial Of Nathaniel Cisneros M.D. Fibrillation 424.1 Aortic Valve Disorder Office Visit 01/26/2014 11:20a [facility] Talib Medrano 427.31 Atrial Of Nathaniel Cisneros M.D. Fibrillation Office Visit 01/22/2014 2:15p [facility] Talib Medrano 424.1 Aortic Valve Of Side Sawyer Sandoval Cisneros Disorder 427.31 Atrial Fibrillation 401.9 Hypertension Unspec Office Visit 03/19/2013 10:00a [facility] Talib Medrano 424.1 Aortic Valve Of Nathaniel Cisneros M.D. Disorder 427.31 Atrial Fibrillation 427.9 Cardiac Dysrhythmia Unspec Office Visit 11/06/2012 1:00p [facility] Talib Medrano 424.1 Aortic Valve Of Nathaniel Cisneros M.D. Disorder 427.31 Atrial Fibrillation 401.9 Hypertension Unspec Office Visit 05/29/2012 1:45p [facility] Talib Medrano 424.1 Aortic Valve Of Nathaniel Cisneros M.D. Disorder 427.31 Atrial Fibrillation Office Visit 04/24/2012 12:00p [facility] Talib Medrano 424.1 Aortic Valve Of Nathaniel Cisneros M.D. Disorder 427.31 Atrial Fibrillation Office Visit 01/23/2012 11:30a [facility] Medrano 786.09 Dyspnea & Cardiology Of [place] Cisneros Respiratory Side Sawyer Abnormalities Other 424.1 Aortic Valve Disorder Office Visit 01/09/2012 8:00a [facility] Talib Medrano 786.50 Pain Chest Of Nathaniel Cisneros M.D. Unspec 424.1 Aortic Valve Disorder Office 04/02/2010 Lou Castrejon S. 794.31 Electrocardiogram Visit 9:17a Cardiology Sandoval Lees (ECG) (EKG) Abnormal 427.31 Atrial Fibrillation 424.1 Aortic Valve Disorder 401.1 Hypertension Benign Office Visit 04/01/2010 9:17a [facility] Cash S. 786.50 Pain Chest Sand[place] Lees Unspec 427.31 Atrial Fibrillation 424.1 Aortic Valve Disorder 401.1 Hypertension Benign Office Visit 07/22/2009 2:00p DO Not Use Side Sawyer Stevanovic, 401.1 Hypertension AT Becky Jain M.D. Benign 272.4 Hyperlipidemia Other Unspec 427.9 Cardiac Dysrhythmia Unspec 455.2 Hemorrhoids Internal W/ Other Complications 396.9 Mitral & Aortic Valve Diseases Unspec 424.1 Aortic Valve Disorder 565.0 Anal Fissure 281.9 Anemia Deficiency Unspec Office Visit 04/21/2009 DO Not Use Side Sawyer Stevanoeulogio, 455.2 Hemorrhoids 10:00a AT Becky Jain M.D. Internal W/ Other Complications 401.1 Hypertension Benign 272.4 Hyperlipidemia Other Unspec 427.9 Cardiac Dysrhythmia Unspec 396.9 Mitral & Aortic Valve Diseases Unspec 424.1 Aortic Valve Disorder Office Visit 03/29/2009 3:40p DO Not Use Side Sawyer Sae, 565.0 Anal Fissure AT Becky Jain M.D. Plan of Treatment Future Appointment(s):11/19/2018 10:45 am - Talib Cisneros M.D. at [facility]07/25/2018 - Talib Cisnreos M.D.I25.10 Atherosclerotic heart disease of [place] coronary artery withFollow up:4 yiunebL46.2 Presence of prosthetic heart rvoiuU19.0 Paroxysmal atrial fibrillation
[2018-08-18] MEDS ORDERED: Diltiazem IV push/loading dose 5 MG/ML 5 ML vial (25 mg) IV SLOW PU ONE (09:23)
--- NOTE | 2018-08-18 09:28 | ED ---
Palpitations / Dysrhythmia - HPI Summary HPI Summary: The patient is an 87 y/o F presenting to [facility] accompanied by with a chief complaint of heart palpitations secondary to feeling of atrial fibrillation starting this morning. Her current symptoms include body shaking, SOB, and lightheadedness. She denies fever, chills, erythema of eyes, sore throat, CP, cough, abdominal pain, N/V, diarrhea, dysuria, hematuria, myalgia, edema, rash, and dizziness. There are no aggravating or alleviating factors. 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 Hx of Afib, HTN, CHF, CAD, AVR, cardioversions. Timber Incisor Operator is Dr. Cisneros. She took her medications at 0800 this morning. She has not recently been sick. Nonsmoker, no EtOH, no substance use. - History of Current Complaint Chief Complaint: EDChestPainROMI Time Seen by Provider: 08/18/18 09:12 Hx Obtained From: Patient Onset/Duration: Sudden Onset, Lasting Minutes, Still Present Severity Initially: Moderate Severity Currently: Moderate Character: Irregular Aggravating: Nothing Alleviating: Nothing Associated Signs & Symptoms: Shortness of Breath - Allergy/Home Medications Allergies/Adverse Reactions: Allergies Allergy/AdvReac Type Severity Reaction Status Date / Time No Known Allergies Allergy Verified 08/18/18 09:41 PMH/Surg Hx/FS Hx/Imm Hx Endocrine/Hematology History: Reports: Hx Anticoagulant Therapy, Hx Blood Transfusions, Hx Anemia Denies: Hx Diabetes, Hx Thyroid Disease Cardiovascular History: Reports: Hx Angina, Hx Atrial Fibrillation, Hx Congestive Heart Failure, Hx Coronary Artery Disease, Hx Hypercholesterolemia, Hx Hypertension, Hx Peripheral Vascular Disease, Hx Syncope, Hx Valvular Heart Disease - s/p AVR, Other Cardiovascular Problems/Disorders - aortic valve replacement 2012, S/P cardioversion 05/30/18 Denies: Hx Myocardial Infarction, Hx Pacemaker/ICD Respiratory History: Reports: Hx Chronic Bronchitis Denies: Hx Asthma, Hx Chronic Obstructive Pulmonary Disease (COPD) GI History: Reports: Hx Irritable Bowel, Other GI Disorders - constipation Denies: Hx Gastrointestinal Bleed, Hx Hiatal Hernia, Hx Ulcer History: Reports: Other Problems/Disorders - musa placed in penitentiary Denies: Hx Chronic Renal Failure, Hx Kidney Stones, Hx Renal Disease Musculoskeletal History: Reports: Hx Arthritis, Hx Back Problems, Hx Orthopedic Injury, Other Musculoskeletal History - HAMMER TOE LEFT SECOND TOE Denies: Hx Osteoporosis Sensory History: Reports: Hx Cataracts - LENS IMPLANTS 2012, Hx Contacts or Glasses - Reading, Hx Vision Problem, Other Sensory Impairments - dry eye Denies: Hx Hearing Aid Opthamlomology History: Reports: Hx Cataracts - LENS IMPLANTS 2012, Hx Contacts or Glasses - Reading, Hx Vision Problem, Other Sensory Impairments - dry eye Neurological History: Denies: Hx Dementia, Hx Transient Ischemic Attacks (TIA) Psychiatric History: Denies: Hx Panic Disorder - Cancer History Hx Chemotherapy: No Hx Radiation Therapy: No - Surgical History Surgery Procedure, Year, and Place: AORTIC valve replacement, 2012,. 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 Cataract surgery, 2011, [facility], [place] LEFT [place]OT. cardiac catherization with cardiac stent to RCA October 2016. cardioversions 2014,2015, 08/2016, 05/30/18. hip surgery 2019 Hx Anesthesia Reactions: No - Immunization History Date of Influenza Vaccine: 12/25 Infectious Disease History: No Infectious Disease History: Denies: Hx Clostridium Difficile, Hx Hepatitis, Hx Human Immunodeficiency Virus (HIV), Hx of Known/Suspected MRSA, Hx Shingles, Hx Tuberculosis, Hx Known/ Suspected VRE, Hx Known/Suspected VRSA, History Other Infectious Disease, Traveled Outside the [place] in Last 30 Days - Family History Known Family History: Positive: Hypertension - Social History Alcohol Use: None Hx Substance Use: No Substance Use Type: Reports: None Hx Tobacco Use: No Smoking Status (MU): Never Smoked Tobacco Do You Chew or Dip Tobacco: No Have You Chewed or Dipped Tobacco in the LAST YEAR: No Have You Smoked in the Last Year: No Review of Systems Positive: Other - body shaking. Negative: Fever, Chills Negative: Erythema Negative: Sore Throat Positive: Palpitations - secondary to Afib. Negative: Chest Pain Positive: Shortness Of Breath. Negative: Cough Negative: Abdominal Pain, Vomiting, Diarrhea, Nausea Negative: dysuria, hematuria Negative: Myalgia, Edema Negative: Rash Neurological: Other - lightheaded All Other Systems Reviewed And Are Negative: Yes Physical Exam - Summary Physical Exam Summary: Constitutional: Well-developed, Well-nourished, Alert. (-) Distressed. Skin: Warm, Dry HENT: Normocephalic; Atraumatic Eyes: Conjunctiva normal Neck: Musculoskeletal ROM normal neck. (-) JVD, (-) Stridor, (-) Tracheal deviation Cardio: Rapid irregularly irregular pulse., Heart sounds normal; Intact distal pulses; The pedal pulses are 2+ and symmetric. Radial pulses are 2+ and symmetric. (-) Murmur Pulmonary/Chest wall: Effort normal. (-) Respiratory distress, (-) Wheezes, (-) Rales Abd: Soft, (-) tenderness, (-) Distension, (-) Guarding, (-) Rebound Musculoskeletal: (-) Edema Lymph: (-) Cervical adenopathy Neuro: Alert, Oriented x3 Psych: Mood and affect Normal Triage Information Reviewed: Yes Vital Signs On Initial Exam: Initial Vitals Temp Pulse Resp BP Pulse Ox 98.3 F 119 24 97/53 98 08/18/18 09:01 08/18/18 09:01 08/18/18 09:01 08/18/18 09:01 08/18/18 09:01 Vital Signs Reviewed: Yes Diagnostics - Vital Signs Vital Signs Temp Pulse Resp BP Pulse Ox 08/18/18 09:01 98.3 F 119 24 97/53 98 - Laboratory Result Diagrams: 08/18/18 09:25 08/18/18 09:25 Lab Statement: Any lab studies that have been ordered have been reviewed, and results considered in the medical decision making process. - Radiology CXR Radiology Interpretation Completed By: Radiologist Summary of Radiographic Findings: Pulmonary vascular congestion. ED physician has reviewed this report. - EKG 0910 Cardiac Rate: Other Rate - 120 BPM EKG Rhythm: Atrial Fibrillation Summary of EKG Findings: No STEMI. Re-Evaluation - Re-Evaluation First Eval Re-Evaluation Time: 16:45 Change: Improved Comment: She is feeling much better after the cardioversion by Dr. Cisneros. She has no complaints at this time. We discussed discharge home. Course/Dx - Course Course Of Treatment: The patient is an 87 y/o F presenting to [facility] accompanied by with a chief complaint of heart palpitations secondary to feeling of atrial fibrillation starting this morning. with symptoms of body shaking, SOB, and lightheadedness. She denies fever, chills, erythema of eyes, sore throat, CP , cough, abdominal pain, N/V, diarrhea, dysuria, hematuria, myalgia, edema, rash , and dizziness. Hx of Afib, HTN, CHF, CAD, AVR, cardioversions. Timber Incisor Operator is Dr. Cisneros. She took her medications at 0800 this morning. No recent sickness. Upon physical exam, the patient exhibits rapid irregularly irregular pulse. In the ED course, the patient was administered Diltiazem. Blood work reveals RBX of 2.96, hgb of 9.2, hct of 28, RDW of 17, MPV of 6.3, abs lymphs of 0.7, INR of 1.85, sodium of 134, chloride of 98, creatinine of 1.68, glucose of 151, magnesium of 1.8, total protein of 6.0, and free T4 of 1.16 without any other significant abnormalities. EKG reveals atrial fibrillation at 120 BPM. CXR reveals pulmonary vascular congestion. At 1048, I spoke with Dr. Guerra, hospitalist, concerning the patients case, and she will consider the patient for admission if needed. At 1120, I spoke with Dr. Cisneros, system development manager, and he will come see the patient in the ED. After the cardioversion by Dr. Cisneros, the patient is feeling better and is able to be discharged home. She is diagnosed with weakness and rapid atrial fibrillation. She will follow up with Dr. Cisneros in one week. She agrees with discharge and understands the need for return to the ED for any new or worsening symptoms. - Diagnoses Provider Diagnoses: Weakness, Atrial fibrillation - Physician Notifications Discussed Care Of Patient With: Nicole Guerra - hospitalist Time Discussed With Above Provider: 10:48 Instructed by Provider To: Other - I spoke with sid Lopez, concerning the patients case, and she will consider the patient for admission if needed. At 1120, I spoke with Dr. Cisneros, system development manager, and he will come see the patient in the ED. Discharge - Sign-Out/Discharge Documenting (check all that apply): Patient Departure - Patient will be discharged home. Patient Received Moderate/Deep Sedation with Procedure: No - Discharge Plan Condition: Stable Disposition: HOME Patient Education Materials: A-fib (Atrial Fibrillation) (DC), Weakness (ED) Referrals: Susy Quevedo MD [Primary Care Provider] - 3 Days Talib Cisneros MD [Medical Doctor] - 1 Week Additional Instructions: Follow up with Dr. Cisneros in one week. RETURN TO THE EMERGENCY DEPARTMENT FOR ANY NEW OR WORSENING SYMPTOMS. - Billing Disposition and Condition Condition: STABLE Disposition: Home - Attestation Statements Document Initiated by Marcos: Yes Documenting Scribe: Sury Plata Provider For Whom Marcos is Documenting (Include Credential): Dr. Ion Gould MD Scribe Attestation: ISury, scribed for Dr. Ion Gould MD on 08/18/18 at 1901. Status of Scribe Document: Ready
[2018-08-18 09:33] LABS: ABS Basophils 0.1 10^3/ul (0-0.2); ABS Eosinophils 0.1 10^3/ul (0-0.6); ABS Lymphocytes 0.7 10^3/ul (1.0-4.8); ABS Monocytes 0.7 10^3/ul (0-0.8); Eosinophil % 1.5 %; Hematocrit 28 % (35-47); Hemoglobin 9.2 g/dL (12.0-16.0); Lymphocyte % 8.8 %; Mean Corpuscular HGB Conc 34 g/dL (31-36); Mean Corpuscular Hemoglobin 31 pg (27-31); Mean Corpuscular Volume 93 fL (80-97); Mean Platelet Volume 6.3 fL (7.4-10.4); Platelet Count 245 10^3/uL (150-450); Red Blood Count 2.96 10^6 /uL (3.70-4.87); Red Cell Distribution Width 17 % (10-15); White Blood Count 7.5 10^3/uL (3.5-10.8)
[2018-08-18 09:39] LABS: INR 1.85 (0.82-1.09)
[2018-08-18] MEDS ORDERED: Diltiazem IV VIAL* 125 MG in NS 0.9% 100 ML* 100 ML IV ONE ×2 (09:49→10:00)
[2018-08-18 09:57] LABS: Albumin 3.2 g/dL (3.2-5.2); Albumin/Globulin Ratio 1.1 (1-3); BUN/Creatinine Ratio 11.9 (8-20); EGFR African American 34.9 (>60); EGFR Non-African American 28.8 (>60); Globulin 2.8 g/dL (2-4); Magnesium 1.8 mg/dL (1.9-2.7); Potassium 3.6 mmol/L (3.5-5.0); Total Bilirubin 0.5 mg/dL (0.2-1.0)
[2018-08-18 09:59] LABS: Troponin I 0.01 ng/mL (<0.04)
[2018-08-18 10:35] LABS: TSH (Thyroid Stimulating Horm) 4.36 mcIU/mL (0.34-5.60)
[2018-08-18 10:37] LABS: Free T4 1.16 ng/dL (0.61-1.12)
[2018-08-18] MEDS ORDERED: Magnesium Sulfate 2 GM IV* 2 GM/50 ML BAG IVPB ONE (13:01)
[2018-08-18] MEDS ORDERED: Flumazenil* 0.1 MG/ML 5 ML MDV ONE (14:47)
[2018-08-18] MEDS ORDERED: Naloxone* 0.4 MG/ML 1 ML VIAL ONE (14:47)
[2018-08-18] MEDS ORDERED: Midazolam* 1 MG/ML 5 ML VIAL (5 MG) ONE (14:47)
[2018-08-18] MEDS ORDERED: fentaNYL* 50 MCG/ML 2 ML VIAL (100 MCG VIAL) ONE (14:47)
--- NOTE | 2018-08-18 15:58 | CARD ---
CARDIOVERSION REPORT: DATE OF PROCEDURE: 08/18/18 - EMERGENCY DEPT PROCEDURE: Cardioversion. INDICATION: Atrial fibrillation. The patient is an 87-year-old female with a history of paroxysmal atrial fibrillation. She has been having more frequent episodes of atrial fibrillation. She was recently cardioverted. The patient awoke this morning feeling shaky and uncomfortable. She went to the emergency room. In the emergency room, she was found to be in atrial fibrillation with rapid ventricular response. The patient is on chronic anticoagulation, cardioversion was recommended. DESCRIPTION OF PROCEDURE: The patient was in a fasting state. Informed consent had been obtained prior to the procedure, all labs were reviewed. The patient was given 2 mg of Versed and 25 mcg of fentanyl for conscious sedation. The patient was cardioverted with 120 joules of synchronized biphasic energy. The patient converted to normal sinus rhythm. The patient tolerated the procedure well. There were no complications. The patient will be seen in followup for management of her atrial fibrillation. [id number]/[facility] #: [id number] DONNA
[2018-08-18 16:24] VITALS: BP 130/51
== END 2018-08-18 17:16 | disposition home or self-care (01) ==
LOC: ED 08:59
DX: R53.1 Weakness (principal); I25.10 Atherosclerotic heart disease of native coronary artery without angina pectoris; R06.02 Shortness of breath; Z79.01 Long term (current) use of anticoagulants; I48.91 Unspecified atrial fibrillation; I10 Essential (primary) hypertension; I73.9 Peripheral vascular disease, unspecified; Z95.4 Presence of other heart-valve replacement; R00.2 Palpitations
CPT/HCPCS: 36415; 71045; 80053; 83735; 84439; 84443; 84484; 85025; 85610; 92960; 93005; 96365; 96366; 96375; 99156; 99157; 99285; J2250; J2310; J3010; J3475

== ENCOUNTER → 2018-12-10 05:51 | Day surgery (SDC) | payer MEDICARE ==
[~2018-12-10 05:51] MED LIST changes: -Buffered Lidocaine 0.9% SYRIN* 5 ML/SYR SYRINGE INTRADERM ONE; +Buffered Lidocaine 1% SYRIN* 1 ML/SYRINGE INTRADERM ONE; +Bupivacaine 0.25% SDV PF* 10 ML VIAL INJ ONE; -Famotidine IV* 10 MG/ML 2 ML (20 mg) IV ONE; +Lactated Ringers 1000 ML Bag* 1,000 ML IV SCH; +Lidocaine 1% w EPI 1:200,000* SDV 30 ML VIAL ONE; +NS 0.45% 1000 ML BAG* 1,000 ML IV SCH; +Propofol* 10 MG/ML 20 ML BTL ONE; +Remifentanil* 2 MG VIAL ONE; -Silver Nitrate/Potassium Nitr* 1 EA STICK ONE; +ceFAZolin 2 GM in NS PREMIX(*) 2 GM/100 ML BAG IVPB ONE
[2018-12-10 08:15] VITALS: BP 171/59
--- NOTE | 2018-12-11 00:08 | OP ---
DATE OF OPERATION: 12/10/18 - [facility] DATE OF : 30 SURGEON: Dr. Aaron Johnson. PEARL DIGGER: KIRSTEN Aguirre. A physician preschool teacher assistant was required for the length of the procedure for assistance with the patient positioning, retraction , and closure. ANESTHESIOLOGIST: Dr. Andrew Gtz. ANESTHESIA: General sedation, local anesthesia with a 1:1 ratio of lidocaine 1 % without epinephrine and Marcaine 0.25% with epinephrine. PRE-OP DIAGNOSIS: Right carpal tunnel syndrome. POST-OP DIAGNOSIS: Right carpal tunnel syndrome. OPERATIVE PROCEDURE: Right open carpal tunnel release. ANTIBIOTICS: Ancef 2 g IV. IV FLUIDS: See anesthesia note. [id number] TIME: 11 minutes. TOURNIQUET TIME: 13 minutes at 250 mm right upper arm. SPECIMEN: None. IMPLANTS: None. ESTIMATED BLOOD LOSS: Minimal. COMPLICATIONS: None. INDICATIONS FOR PROCEDURE: The patient is an 88-year-old woman, with carpal tunnel syndrome by history and exam, who did not respond sufficiently to nonoperative management. The patient opted for surgery. I discussed risks and potential complications of procedure. The patient opted to have surgery. DESCRIPTION OF PROCEDURE: In preoperative holding, the patient signed a written consent. The operative extremity was marked in preoperative holding. The patient was taken back to the operating room and kept on the stretcher. Hand table was applied to stretcher. The patient was generally sedated. Mini time-out was performed. A 10 cc of local anesthesia was injected to the distal forearm and wrist. Tourniquet was applied to the right upper arm. Right upper extremity was prepped and draped. Formal surgical time-out was performed. Esmarch was applied and tourniquet was elevated. I made a standard skin incision for open approach to the carpal tunnel. Dissected down through the longitudinal fascia to the transverse carpal ligament. I cleared off transverse carpal ligament nicely. Incised it. I cleared it off deep and superficial and continued to cut it with a knife and then scissors distally. Ends retracted. Changed positions and then moved proximally. Released the knife and then scissors. Clearly released towards the distal and then towards the proximal end of the transverse carpal ligament and ends retracted nicely. There was perhaps one drop of blood in the subcutaneous tissue adjacent to the skin. Bipolar cautery used. Irrigation. Skin was closed with horizontal mattress stitches using nylon 4-0 suture. Xeroform, 4x4's, sterile Webril, bulky, Coban. The patient was lightened of sedation and transferred back to the PACU. DISPOSITION: The patient was given tramadol as needed for pain control. Wound care instructions provided. The patient will follow up in clinic 10 to 14 days postoperatively. [id number]/[facility] #: [id number] MTDCarline
== END | disposition home or self-care (01) ==
LOC: OR 05:51
PROVIDERS: ATTEND Orthopaedic Surgery
DX: G56.01 Carpal tunnel syndrome, right upper limb (principal); J44.9 Chronic obstructive pulmonary disease, unspecified; N18.4 Chronic kidney disease, stage 4 (severe); I12.9 Hypertensive chronic kidney disease with stage 1 through stage 4 chronic kidney disease, or unspecified chronic kidney disease; M81.0 Age-related osteoporosis without current pathological fracture; I25.10 Atherosclerotic heart disease of native coronary artery without angina pectoris; I48.0 Paroxysmal atrial fibrillation; I65.29 Occlusion and stenosis of unspecified carotid artery; Z79.01 Long term (current) use of anticoagulants; E03.9 Hypothyroidism, unspecified; Z68.31 Body mass index [BMI] 31.0-31.9, adult
CPT/HCPCS: J0690; J2001; J2704; J3490

== ENCOUNTER 2019-01-02 10:34 | Emergency (ER) | payer MEDICARE ==
--- OUTSIDE RECORDS SUMMARY | 2019-01-02 10:45 | XMS REPORT | Continuity of Care Document ---
:1930 External Reference #:[id number] Author Name Aaron Johnson MD (transmitted by agent of provider Miguel Stearns) Address [address] [place] [address] Care Team Providers Name Role Phone Susy Quevedo MD - Internal Care Team Information Scientific Photographer Medicine Sahil Pang MD - Internal Care Team Information Scientific Photographer Medicine Problems Active Problems Provider Date Aortic valve disorder Talib Cisneros M.D. Onset: 03/19/2013 Atrial fibrillation Talib Cisneros M.D. Onset: 03/19/2013 Conduction disorder of the heart Talib Cisneros M.D. Onset: 03/19/2013 Social History Type Date Description Comments Sex Unknown Tobacco Use Start: Unknown Never Smoked Cigarettes ETOH Use Denies alcohol use Recreational Drug Use Denies Drug Use Tobacco Use Start: Unknown Patient has never smoked Smoking Status Reviewed: 12/25/18 Patient has never smoked Exercise Type/Frequency Exercises rarely Allergies, Adverse Reactions, Alerts Description No Known Drug Allergies Medications Active Medications SIG Qnty Indications Ordering Date Provider Tramadol HCL take 1-2 tabs by 30tabs Aaron Gomez 12/10/2018 50mg mouth every 6 MD Alex Tablets hours as needed for pain Potassium Chloride 1 tab by mouth 30units Unknown 11/11/2018 twice a day ( 20Meq Packet discharged [facility] 11/03/18 , not taking this dose as of 11/19/18) Eliquis 1 tab po twice Unknown 07/16/2018 2.5mg Tablets daily Nitroglycerin 1 sl q5mins x3 as 25tabs Talib Medrano 10/17/2016 0.4mg needed for chest Brand, M.D. Tablets Sub pain Potassium Chloride ER 1 by mouth twice Unknown daily ( Med bottle 10Meq Tablets ER brought in 11/19/18, taking this dose for 5 days now) Vitamin B12 1 by mouth every Unknown 1000mcg day Tablets ER Miralax 17 grams by mouth Unknown Powder every day as needed Magnesium Oxide 1 by mouth every Unknown 400mg day Tablets Amiodarone HCL 1 and 1/2 tablet Unknown 200mg po daily Tablets Glycerin as needed Unknown Nystatin powder 1 Unknown application three times daily Acetaminophen 2 every 4 hours as Unknown 325mg needed for pain Tablets Metoprolol Tartrate 1 by mouth twice a Unknown day ( [facility] 25mg Tablets discharge 07/16/18) Levothyroxine Sodium 1/2 by mouth every 30tabs Unknown day ( Per 50mcg Tablets discharge 08/08/18 ) Atorvastatin Calcium 1 by mouth every Unknown day 40mg Tablets Calcium 600 + D 1 tablet po twice 60tabs Unknown daily [id number] Tablets Colace 1 po tid 180caps Unknown [...] MD Susy discharge 07/16/18 [facility]) History Medications Spironolactone 1/2 tab by Unknown 11/10/2018 - 25mg Tablets mouth every day 11/13/2018 Keflex take 1 tab by 21capluis Gomez 07/03/2018 - 500mg Capsules mouth 3 times a MD Alex Unknown day x 7 days until finished. Medications Administered in Office Medication SIG Qnty Indications Ordering Provider Date Dexamethasone Sodium Aaron Johnson MD 09/25/2018 Phosphate, 1 MG Injection Depomedrol 40MG Aaron Johnson MD 09/25/2018 Injection Immunizations Description No Information Available Vital Signs Date Vital Result Comment 12/25/2018 2:54pm Height 66 inches 5'6" Weight 195.00 lb stated Heart Rate 56 /min BP Systolic 128 mmHg BP Diastolic 56 mmHg Respiratory Rate 12 /min Body Temperature 97.7 F Pain Level 0 BMI (Body Mass Index) 31.5 kg/m2 11/27/2018 1:00pm Height 66 inches 5'6" Weight 195.00 lb with shoes Heart Rate 52 /min BP Systolic Sitting 154 mmHg R arm BP Diastolic Sitting 66 mmHg R arm Peak Flow Meter 99 BMI (Body Mass Index) 31.5 kg/m2 Results Test Date Facility Test Result H/L Range Note Neph Routine 11/20/2018 [facility] Total Protein 6 mg/dL [address] [place] [address] [phone] Creatinine Random Urine 19.84 mg/dL CBC Auto 11/20/2018 [facility] White Blood 5.4 10^3/uL Normal 3.5-10.[address] [place] [address] [phone] Red Blood Count 3.23 10^6/uL Low 3.70-4.87 Hemoglobin 10.5 g/dL Low 12.0-16.0 Hematocrit 32 % Low 35-47 Mean Corpuscular Volume 98 fL High 80-97 Mean Corpuscular Hemoglobin 33 pg High 27-31 Mean Corpuscular HGB Conc 33 g/dL Normal 31-36 Red Cell Distribution Width 16 % High 10-15 Platelet Count 172 10^3/uL Normal 150-450 Mean Platelet Volume 7.6 fL Normal 7.4-10.4 Abs Neutrophils 3.3 10^3/uL Normal 1.5-7.7 Abs Lymphocytes 1.2 10^3/uL Normal 1.0-4.8 Abs Monocytes 0.7 10^3/uL Normal 0-0.8 Abs Eosinophils 0.1 10^3/uL Normal 0-0.6 Abs Basophils 0.1 10^3/uL Normal 0-0.2 Abs Nucleated RBC 0.0 10^3/uL Granulocyte % 61.8 % Lymphocyte % 22.2 % Monocyte % 13.6 % Eosinophil % 1.4 % Basophil % 1.0 % Nucleated Red Blood Cells % 0.0 Urinalysis Profile 11/20/2018 [facility] Urine Color Yellow [address] [place] [address] [phone] Urine Appearance Cloudy Urine Specific [place] 1.005 Low 1.010-1.030 Urine pH 7.0 Normal 5-9 Urine Urobilinogen Negative Negative Urine Ketones Negative Negative Urine Protein Negative Negative Urine Leukocytes Negative Negative Urine Blood Negative Negative Urine Nitrite Negative Negative Urine Bilirubin Negative Negative Urine Glucose Negative Negative Basic Metabolic 11/20/2018 [facility] Sodium 140 mmol/L Normal 135-[address] [place] [address] [phone] Potassium 4.1 mmol/L Normal 3.5-5.0 Chloride 102 mmol/L Normal 101-111 Co2 Carbon Dioxide 31 mmol/L Normal 22-32 Anion Gap 7 mmol/L Normal 2-11 Glucose 89 mg/dL Normal 70-100 Blood Urea Nitrogen 22 mg/dL Normal 6-24 Creatinine 1.67 mg/dL High 0.51-0.95 BUN/Creatinine Ratio 13.2 Normal 8-20 Calcium 9.1 mg/dL Normal 8.6-10.3 Egfr Non- 29.0 >60 Egfr 35.0 >60 1 Protein 11/20/2018 [facility] Total 6.5 g/dL 6.3 - Electrophoresis [address] Protein(Pep) 7.9 [place] [address] [phone] Albumin 3.4 g/dL 3.4-4.7 Alpha-1 Globulin 0.3 g/dL 0.1-0.3 Alpha-2 Globulin 1.0 g/dL 0.6-1.0 Beta Globulin 1.0 g/dL 0.7-1.2 Gamma Globulin 0.9 g/dL 0.6-1.6 Albumin/Globulin Ratio 1.13 Impression See Comment 2 [place]/Lambda Free 11/20/2018 [facility] [place] Free 6.31 mg/dL Abnormal [address] [place] [address] [phone] Lambda Free Light Chain 2.74 mg/dL Abnormal 4 [place]/Lambda Free Light Chain 2.30 Abnormal 5 Laboratory test 11/20/2018 [facility] TSH (Thyroid 7.09 High 0.34-5.[address] Stim Horm) mcIU/[place] [address] [phone] T3 Free 2.30 pg/mL Low 2.5-3.9 Free T4 (Free Thyroxine) 1.16 ng/dL High 0.61-1.12 T3 Total 51 ng/dL Low 87-178 Thyroperoxidase AB 0.20 IU/mL Normal <9 Thyroglobulin AB 0.0 IU/mL <4.0 Thyroid Stimulating Igg (Tsi) <1.0 TSIindex <=1.3 6 Laboratory test 08/18/2018 [facility] Magnesium 1.8 mg/dL Low 1.9-2.[address] [place] [address] [phone] Troponin-I (TnI) 0.01 ng/mL <0.04 7 TSH (Thyroid Stim Horm) 4.36 mcIU/mL Normal 0.34-5.60 Free T4 (Free Thyroxine) 1.16 ng/dL High 0.61-1.12 Comp Metabolic Panel 08/18/2018 [facility] Sodium 134 mmol/L Low 135-145 [address] [place] [address] [phone] Potassium 3.6 mmol/L Normal 3.5-5.0 Chloride 98 mmol/L Low 101-111 Co2 Carbon Dioxide 26 mmol/L Normal 22-32 Anion Gap 10 mmol/L Normal 2-11 Glucose 151 mg/dL High 70-100 Blood Urea Nitrogen 20 mg/dL Normal 6-24 Creatinine 1.68 mg/dL High 0.51-0.95 BUN/Creatinine Ratio 11.9 Normal 8-20 Calcium 9.0 mg/dL Normal 8.6-10.3 Total Protein 6.0 g/dL Low 6.4-8.9 Albumin 3.2 g/dL Normal 3.2-5.2 Globulin 2.8 g/dL Normal 2-4 Albumin/Globulin Ratio 1.1 Normal 1-3 Total Bilirubin 0.50 mg/dL Normal 0.2-1.0 Alkaline Phosphatase 70 U/L Normal 34-104 Alt 14 U/L Normal 7-52 Ast 15 U/L Normal 13-39 Egfr Non- 28.8 >60 Egfr 34.9 >60 8 Inr/Protime 08/18/2018 [facility] Inr 1.85 High 0.82-1.09 9 [address] [place] [address] [phone] CBC Auto Diff 08/18/2018 [facility] White Blood 7.5 Normal 3.5 -10.[address] Count 10^3/[place] [address] [phone] Red Blood Count 2.96 10^6/uL Low 3.70-4.87 Hemoglobin 9.2 g/dL Low 12.0-16.0 Hematocrit 28 % Low 35-47 Mean Corpuscular Volume 93 fL Normal 80-97 Mean Corpuscular Hemoglobin 31 pg Normal 27-31 Mean Corpuscular HGB Conc 34 g/dL Normal 31-36 Red Cell Distribution Width 17 % High 10-15 Platelet Count 245 10^3/uL Normal 150-450 Mean Platelet Volume 6.3 fL Low 7.4-10.4 Abs Neutrophils 6.0 10^3/uL Normal 1.5-7.7 Abs Lymphocytes 0.7 10^3/uL Low 1.0-4.8 Abs Monocytes 0.7 10^3/uL Normal 0-0.8 Abs Eosinophils 0.1 10^3/uL Normal 0-0.6 Abs Basophils 0.1 10^3/uL Normal 0-0.2 Abs Nucleated RBC 0.0 10^3/uL Granulocyte % 79.9 % Lymphocyte % 8.8 % Monocyte % 9.0 % Eosinophil % 1.5 % Basophil % 0.8 % Nucleated Red Blood Cells % 0.0 Laboratory test 08/18/2018 [facility] Troponin-I (TnI) 0.01 ng/ mL <0.04 10 finding [address] [place] [address] [phone] Laboratory test 08/18/2018 [facility] Troponin-I (TnI) 0.01 ng/ mL <0.04 11 finding [address] [place] [address] [phone] Urinalysis 08/05/2018 [facility] Urine Color Yellow Profile [address] [place] [address] [phone] Urine Appearance Clear Urine Specific [place] 1.005 Low 1.010-1.030 Urine pH 6.0 Normal 5-9 Urine Urobilinogen Negative Negative Urine Ketones Negative Negative Urine Protein Negative Negative Urine Leukocytes 1+ Abnormal Negative Urine Blood Negative Negative Urine Nitrite Negative Negative Urine Bilirubin Negative Negative Urine Glucose Negative Negative Urine White Blood Cell Trace(0-5/hpf) Absent Urine Red Blood Cell Absent Absent Urine Bacteria Absent Absent Urine Culture And 08/05/2018 [facility] Urine Culture SEE RESULT [address] [place] [address] [phone] 1 Because ethnic data is not always [...] 5 Kidney failure <15 (or dialysis) 2 RESULT: No apparent monoclonal protein on serum electrophoresis. Test Performed by: [facility] [address] [place] [address] Professor Of Latin American Studies: Mick Covington M.D. Ph.D.; CLIA# [id number] 3 REFERENCE VALUE 0.3300-1.94 4 REFERENCE VALUE 0.5700-2.63 5 Elevated free light chain ratios between 1.66 and 3.00 may occur due to polyclonal hypergammaglobulinemia or impaired renal clearance. An isolated increased free light chain ratio in this range should be interpreted with caution, and clinical correlation is recommended. REFERENCE VALUE 0.2600-1.65 Test Performed by: [facility] [address] [place] [address] Professor Of Latin American Studies: Mick Covington M.D. Ph.D.; CLIA# [id number] 6 Test Performed by: [facility] [address] [place] [address] Professor Of Latin American Studies: Mick Covington M.D. Ph.D.; CLIA# [id number] 7 Troponin-I testing on Plasma Separator Tubes (PST) has a known false positive rate of 0.20-0.40%. All positive troponins reflex immediately to secondary confirmatory testing. Using the [employer] DxI 800 Access Immunoassay systems, the 99th percentile upper reference limit was demonstrated to be < 0.03 ng/mL. 8 Because ethnic data is not always readily [...] 15-29 5 Kidney failure <15 (or dialysis) 9 Standard intensity warfarin therapeutic range: 2.0-3.0 High intensity warfarin therapeutic range: 2.5-3.5 10 Troponin-I testing on Plasma Separator Tubes (PST) has a known false positive rate of 0.20-0.40%. All positive troponins reflex immediately to secondary confirmatory testing. Using the [employer] DxI 800 Access Immunoassay systems, the 99th percentile upper reference limit was demonstrated to be < 0.03 ng/mL. 11 Troponin-I testing on Plasma Separator Tubes (PST) has a known false positive rate of 0.20-0.40%. All positive troponins reflex immediately to secondary confirmatory testing. Using the [employer] DxI 800 Access Immunoassay systems, the 99th percentile upper reference limit was demonstrated to be < 0.03 ng/mL. 12 SEE RESULT BELOW Name: JHONATANNOELVERONICA : [address]: Nicole Guerra MD Acct: [id number] Unit: [id number] AGE: 87 Location: [place] [address] Re08/06/18 SEX: F Status: ADM IN SPEC: [id number] LACEY: 08/05/18 [facility] DR: Dinora CURTIS REQ: [id number] RECD: 08/05/18 STATUS: DAVID CARDENAS DR: Carlos A Quevedo MD PC _ SOURCE: URINE SPDESC: ORDERED: Urine Culture Procedure Result Reported Site Urine Culture Final 08/07/18- 0840 ML Few Enterobacteriacae; possible contamination. * ML - Main Lab . END OF REPORT DEPARTMENT OF PATHOLOGY, [address] [place] [address] Brendon Nicole M.D. Director [facility] # [id number] Procedures Date Code Description Status 12/10/2018 43896 Carpal Tunnel Release Completed 12/10/2018 87130 Carpal Tunnel Release Completed 11/19/2018 06079 EKG Tracing & Interpretation Completed 11/03/2018 80852 EKG, Interpretation Only Completed 11/03/2018 58144 Cardioversion Completed 11/02/2018 59591 EKG, Interpretation Only Completed 09/25/2018 Inject/Drain Joint/Bursa Major W/O US Completed 09/25/2018 Injection, Carpal Tunnel Completed 08/20/2018 28437 EKG Tracing & Interpretation Completed 08/18/2018 26714 Cardioversion Completed 08/06/2018 90670 Moderate Sedation Services; Same Phys Intl 15 Mins; PT Completed >= 5 Years 08/06/2018 86420 EKG, Interpretation Only Completed 08/06/2018 23871 Cardioversion Completed 07/25/2018 10383 EKG Tracing & Interpretation Completed 07/08/2018 66815 Secondary Closure Of Surgical Wound Or Dehiscence Completed Extensive Or Co 07/08/2018 23289 Secondary Closure Of Surgical Wound Or Dehiscence Completed Extensive Or Co 07/07/2018 21494 ECHO Transthorasic Realtime 2D W Doppler & Color Flow Completed Hosp 02/21/2018 [id number] Colonoscopy Completed 04/19/2009 [id number] Colonoscopy Completed Medical Devices Description No Information Available Encounters Type Date Location Provider Dx Diagnosis Office Visit 11/27/2018 [facility] Nephrology Bob Reyes I12.9 Hypertensive chronic 1:00p MD Celia kidney disease w stg 1-4/unsp chr kdny N18.4 Chronic kidney disease, stage 4 (severe) N17.9 Acute kidney failure, unspecified I10 Essential (primary) hypertension I48.0 Paroxysmal atrial fibrillation Office Visit 11/25/2018 10:15a [facility] Aaron F G56.01 Carpal tunnel at Perico Johnson MD syndrome, right upper limb M19.011 Primary osteoarthritis, right shoulder S46.011A Strain of musc/tend the rotator cuff of right shoulder, init Office Visit 11/19/2018 10:45a [facility] Talib Medrano I48.0 Paroxysmal atrial Of Nathaniel Cisneros M.D. 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0 Paroxysmal atrial Sandoval Richards fibrillation I50.30 Unspecified diastolic (congestive) heart failure R00.0 Tachycardia, unspecified D64.9 Anemia, unspecified R07.89 Other chest pain Office Visit 11/02/2018 [facility] Nicole Guerra I48.91 Unspecified 9:06a lo Murcia M.D. atrial Hospitalists fibrillation M54.9 Dorsalgia, unspecified N18.4 Chronic kidney disease, stage 4 (severe) Office Visit 09/25/2018 2:30p Lou Gomez S46.011A Strain of Orthopedics at MD Alex musc/va the [facility] rotator cuff of right shoulder, init M19.011 Primary osteoarthritis, right shoulder G56.01 Carpal tunnel syndrome, right upper limb S72.002D Fx unsp part of nk of l femr, subs for clos fx w routn heal Office Visit 08/20/2018 3:15p [facility] Talib Medrano Z95.2 Presence of Of Nathaniel Cisneros M.D. prosthetic heart valve I25.10 Athscl heart disease of [place] coronary artery w/o ang pctrs I48.0 Paroxysmal atrial fibrillation [facility] I50.33 Acute on chronic 9:41a lo Murcia M.D. diastolic Hospitalists (congestive) heart failure I48.91 Unspecified atrial fibrillation E83.42 Hypomagnesemia Office [facility], I48.91 Unspecified 9:40a lo Murcia M.D. 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 following a Hospitalists procedure, other surgical site, init J96.01 Acute respiratory failure with hypoxia I13.0 Hyp hrt & chr kdny dis w hrt fail and stg 1-4/unsp chr kdny N39.0 Urinary tract infection, site not specified B96.1 Klebsiella pneumoniae as the cause of diseases classd elswhr I47.2 Ventricular tachycardia I48.91 Unspecified atrial fibrillation R33.9 Retention of urine, unspecified Office Visit 07/15/2018 9:00a [facility] Vikki Horanx, I13.0 Hyp hrt & chr Assoc,lo CELL FEED DEPARTMENT SUPERVISOR kdny dis w hrt Hospitalists fail and stg 1-4/unsp chr kdny N18.3 Chronic kidney disease, stage 3 (moderate) I47.2 Ventricular tachycardia I48.0 Paroxysmal atrial fibrillation [facility], I47.2 Ventricular 8:59a lo Murcia M.D. tachycardia Hospitalists N18.3 Chronic kidney disease, stage 3 (moderate) I13.0 Hyp hrt & chr kdny dis w hrt fail and stg 1-4/unsp chr kdny Office Visit 07/14/2018 [facility] Erin Dotyu. [facility] T81.41xD Infct fol a 5:52a For Infectious Bishop, CELL FEED DEPARTMENT SUPERVISOR proc, superfic Diseases incisional surgical site, subs N39.0 Urinary tract infection, site not specified B96.1 Klebsiella pneumoniae as the cause of diseases classd elswhr N18.3 Chronic kidney disease, stage 3 (moderate) Office Visit 07/13/2018 [facility] Nicole Guerra, L02.91 Cutaneous 8:59a Asslo blunt M.D. abscess, Hospitalists unspecified R33.9 Retention of urine, unspecified I13.0 Hyp hrt & chr kdny dis w hrt fail and stg 1-4/unsp chr kdny N18.3 Chronic kidney disease, stage 3 (moderate) Office Visit 07/12/2018 [facility] Nicole Guerra, R33.9 Retention of 8:57a Assoc,lo Nick urine, Hospitalists unspecified I13.0 Hyp hrt & chr kdny dis w hrt fail and stg 1-4/unsp chr kdny N18.3 Chronic kidney disease, stage 3 (moderate) I47.2 Ventricular tachycardia Office Visit 07/11/2018 8:56a [facility] Priti R33.9 Retention of Assoc,lo Keller, DO urine, Hospitalists unspecified L02.91 Cutaneous abscess, unspecified J96.01 Acute respiratory failure with hypoxia I13.0 Hyp hrt & chr kdny dis w hrt fail and stg 1-4/unsp chr kdny N18.3 Chronic kidney disease, stage 3 (moderate) Office Visit 07/11/2018 [facility] T81.41xD Infct fol a 7:56a For Infectious MADY Bishop proc, superfic Diseases incisional surgical site, subs N39.0 Urinary tract infection, site not specified B96.1 Klebsiella pneumoniae as the cause of diseases classd elswhr N18.3 Chronic kidney disease, stage 3 (moderate) Office Visit 07/10/2018 8:55a [facility] I47.2 Ventricular Assoc,lo Blackburn, tachycardia Hospitalists CELL FEED DEPARTMENT SUPERVISOR N18.3 Chronic kidney disease, stage 3 (moderate) I50.33 Acute on chronic diastolic (congestive) heart failure R33.9 Retention of urine, unspecified [facility] T81.41xD Infct fol a 7:53a For Infectious MADY Bishop proc, superfic Diseases incisional surgical site, subs D72.829 Elevated white blood cell count, unspecified N39.0 Urinary tract infection, site not specified B96.1 Klebsiella pneumoniae as the cause of diseases classd elswhr N18.3 Chronic kidney disease, stage 3 (moderate) Office Visit 07/08/2018 8:54a [facility] I47.2 Ventricular Assoc,pc Geraldo Doto, tachycardia Hospitalists CELL FEED DEPARTMENT SUPERVISOR I50.33 Acute on chronic diastolic (congestive) heart failure I48.0 Paroxysmal atrial fibrillation N18.4 Chronic kidney disease, stage 4 (severe) Office Visit 07/08/2018 [facility] T81.41xA Infct fol a 7:48a For Infectious Bishop, CELL FEED DEPARTMENT SUPERVISOR proc, superfic Diseases incisional surgical site, init N39.0 Urinary tract infection, site not specified B96.1 Klebsiella pneumoniae as the cause of diseases classd elswhr N18.3 Chronic kidney disease, stage 3 (moderate) Z96.642 Presence of left artificial hip joint Office Visit 07/07/2018 8:53a [facility] Sugey I47.2 Ventricular Assoc,lo Blackburn, tachycardia Hospitalists CELL FEED DEPARTMENT SUPERVISOR I50.33 Acute on chronic diastolic (congestive) heart failure I48.0 Paroxysmal atrial fibrillation N18.4 Chronic kidney disease, stage 4 (severe) Office Visit 07/06/2018 8:53a [facility] Galo N17.9 Acute kidney Assoc,lo Cowan M.D. failure, Hospitalists unspecified I47.2 Ventricular tachycardia I11.0 Hypertensive heart disease with heart failure I50.33 Acute on chronic diastolic (congestive) heart failure I48.91 Unspecified atrial fibrillation Office Visit 07/05/2018 4:26p [facility] Carlos A Waters I47.2 Ventricular Of Nathaniel Luz M.D., tachycardia FACC, FASNC Z98.61 Coronary angioplasty status Z95.2 Presence of prosthetic heart valve Office Visit 07/05/2018 8:52a [facility] Galo N17.9 Acute kidney Assoc,lo Cowan M.D. failure, Hospitalists unspecified E87.1 Hypo-osmolality and hyponatremia I50.31 Acute diastolic (congestive) heart failure I11.0 Hypertensive heart disease with heart failure Office Visit 07/04/2018 [facility] Galo E87.1 Hypo-osmolality and 8:51a Assoc,lo Cowan M.D. hyponatremia Hospitalists N17.9 Acute kidney failure, unspecified I48.91 Unspecified atrial fibrillation Office Visit 07/03/2018 8:50a [facility] Charlette N17.9 Acute kidney Assoc,lo [facility], DO failure, Hospitalists unspecified D72.829 Elevated white blood cell count, unspecified R53.1 Weakness R05 Cough Office Visit 07/03/2018 10:15a [facility] Aaron F S72.012D Unsp [facility] [place] MD fx left femur, subs for clos fx w routn heal S52.514D Nondisp fx of r radial styloid pro, 7thD S46.011A Strain of musc/tend the rotator cuff of right shoulder, init Assessments Date Code Description Provider 12/25/2018 G56.01 Carpal tunnel syndrome, right upper Aaron Johnson MD limb 12/10/2018 G56.01 Carpal tunnel syndrome, right upper Aaron Johnson MD limb 12/10/2018 G56.01 Carpal tunnel syndrome, right upper KIRSTEN Aguirre limb 11/27/2018 I12.9 Hypertensive chronic kidney disease Bob Yang MD with stage 1 through stage 4 chronic kidney disease, or unspecified chronic kidney disease 11/27/2018 N18.4 Chronic kidney disease, stage 4 Bob Yang MD (severe) 11/27/2018 N17.9 Acute kidney failure, unspecified Bob Yang MD 11/27/2018 I10 Essential (primary) hypertension Bob Yang MD 11/27/2018 I48.0 Paroxysmal atrial fibrillation Bob Yang MD 11/25/2018 G56.01 Carpal tunnel syndrome, right upper Aaron Johnson MD limb 11/25/2018 M19.011 Primary osteoarthritis, right Aaron Johnson MD shoulder 11/25/2018 S46.011A Strain of muscle(s) and tendon(s) of Aaron Johnson MD the rotator cuff of rig 11/19/2018 I48.0 Paroxysmal atrial fibrillation Talib Cisneros M.D. 11/19/2018 I50.33 Acute on chronic diastolic Talib Cisneros M.D. 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 11/13/2018 N18.4 Chronic kidney disease, stage 4 Bob Yang MD (severe) 11/13/2018 I12.9 Hypertensive chronic kidney disease Bob Yang MD with stage 1 through stage 4 chronic kidney disease, or unspecified chronic kidney disease 11/13/2018 R60.0 Localized edema Bob Yang MD 11/13/2018 I48.0 Paroxysmal atrial fibrillation Bob Yang MD 11/13/2018 I50.33 Acute on chronic diastolic Bob Yang MD (congestive) heart failure 11/13/2018 D64.9 Anemia, unspecified Bob Yang MD 11/03/2018 R94.31 Abnormal electrocardiogram [ECG] Jesus Alberto Sherman DO [facility] [EKG] 11/03/2018 I48.91 Unspecified atrial fibrillation Talib Cisneros M.D. 11/03/2018 I48.91 Unspecified atrial fibrillation Kerline Garza MD 11/03/2018 M54.9 Dorsalgia, unspecified Kerline Garza MD 11/02/2018 R94.31 Abnormal electrocardiogram [ECG] Harvey Richards M.D. [EKG] 11/02/2018 I48.0 Paroxysmal atrial fibrillation Harvey Richards M.D. 11/02/2018 I48.91 Unspecified atrial fibrillation Nicole Guerra M.D. 11/02/2018 I50.30 Unspecified diastolic (congestive) Harvey Richards M.D. heart failure 11/02/2018 M54.9 Dorsalgia, unspecified Nicole Guerra M.D. 11/02/2018 R00.0 Tachycardia, unspecified Harvey Richards M.D. 11/02/2018 N18.4 Chronic kidney disease, stage 4 Nicole Guerra M.D. (severe) 11/02/2018 D64.9 Anemia, unspecified Harvey Richards M.D. 11/02/2018 R07.89 Other chest pain Harvey Richards M.D. 09/25/2018 S46.011A Strain of muscle(s) and tendon(s) of Aaron Johnson MD the rotator cuff of rig 09/25/2018 M19.011 Primary osteoarthritis, right Aaron Johnson MD shoulder 09/25/2018 G56.01 Carpal tunnel syndrome, right upper Aaron Johnson MD limb 09/25/2018 S72.002D Fracture of unspecified part of neck Aaron Johnson MD of left femur, subseque 08/20/2018 Z95.2 Presence of prosthetic heart valve Talib Cisneros M.D. 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 08/18/2018 I48.0 Paroxysmal atrial fibrillation Talib Cisneros M.D. 08/08/2018 I50.33 Acute on chronic diastolic Nicole Guerra M.D. (congestive) heart failure 08/08/2018 I48.91 Unspecified atrial fibrillation Nicole Guerra M.D. 08/08/2018 E83.42 Hypomagnesemia Nicole Guerra M.D. 08/07/2018 T81.31xD Disruption of external operation KIRSTEN Sutton (surgical) wound, not elsew 08/06/2018 R94.31 Abnormal electrocardiogram [ECG] Harvey Richards M.D. [EKG] 08/06/2018 I48.91 Unspecified atrial fibrillation Nicole Guerra M.D. 08/06/2018 I48.91 Unspecified atrial fibrillation Conchita Thompson M.D. 08/06/2018 I50.33 Acute on chronic diastolic Nicole Guerra M.D. 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 08/06/2018 E87.8 Other disorders of electrolyte and Conchita Thompson M.D. fluid balance, not elsewhere classified 08/06/2018 N18.3 Chronic kidney disease, stage 3 Nicole Guerra M.D. 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 07/25/2018 I48.0 Paroxysmal atrial fibrillation Talib Cisneros M.D. 07/22/2018 T81.41xD Infection following a procedure, Aaron Johnson MD superficial incisional surg 07/22/2018 S72.012D Unspecified intracapsular fracture Aaron Johnson MD of left femur, subsequent 07/16/2018 T81.49xA Infection following a procedure, Vikki Christo, [employer] other surgical site, init 07/16/2018 J96.01 Acute respiratory failure with Vikki Christo, [employer] hypoxia 07/16/2018 I13.0 Hyp hrt & chr kdny dis w hrt fail Vikki Christo, [employer] and stg 1-4/unsp chr kdny 07/16/2018 N39.0 Urinary tract infection, site not Vikki Christo, [employer] specified 07/16/2018 B96.1 Klebsiella pneumoniae as the cause Vikki Christo, [employer]OR of diseases classd elswhr 07/16/2018 I47.2 Ventricular tachycardia Vikki Christo, [employer] 07/16/2018 I48.91 Unspecified atrial fibrillation Vikki Christo, [employer]OR 07/16/2018 R33.9 Retention of urine, unspecified Vikki Christo, [employer] 07/15/2018 I13.0 Hyp hrt & chr kdny dis w hrt fail Vikki Christo, [employer] SUPER[employer]OR and stg 1-4/unsp chr kdny 07/15/2018 N18.3 Chronic kidney disease, stage 3 Vikki Christo, [employer] (moderate) 07/15/2018 I47.2 Ventricular tachycardia Vikki Christo, [employer] 07/15/2018 I48.0 Paroxysmal atrial fibrillation Vikki Christo, [employer] 07/14/2018 T81.41xD Infection following a procedure, Erin Bishop NP superficial incisional surg 07/14/2018 T81.31xD Disruption of external operation KIRSTEN Sutton (surgical) wound, not elsew 07/14/2018 N39.0 Urinary tract infection, site not Erin Bishop NP specified 07/14/2018 I47.2 Ventricular tachycardia Nicole Guerra M.D. 07/14/2018 B96.1 Klebsiella pneumoniae as the cause Erin Bishop NP of diseases classd elswhr 07/14/2018 N18.3 Chronic kidney disease, stage 3 Nicole Guerra M.D. (moderate) 07/14/2018 N18.3 Chronic kidney disease, stage 3 Erin Bishop NP (moderate) 07/14/2018 I13.0 Hyp hrt & chr kdny dis w hrt fail Nicole Guerra M.D. and stg -/unsp [facility] kdny 07/13/2018 L02.91 Cutaneous abscess, unspecified Nicole Guerra M.D. 07/13/2018 R33.9 Retention of urine, unspecified Nicole Guerra M.D. 07/13/2018 I13.0 Hyp hrt & chr kdny dis w hrt fail Nicole Guerra M.D. and stg -/unsp [facility] kdny 07/13/2018 N18.3 Chronic kidney disease, stage 3 Nicole Guerra M.D. (moderate) 07/12/2018 T81.31xD Disruption of external operation Caroline Chatman RPA-C (surgical) wound, NEC, subs 07/12/2018 R33.9 Retention of urine, unspecified Nicole Guerra M.D. 07/12/2018 I13.0 Hyp hrt & chr kdny dis w hrt fail Nicole Guerra M.D. and stg -/unsp [facility] kdny 07/12/2018 N18.3 Chronic kidney disease, stage 3 Nicole Guerra M.D. (moderate) 07/12/2018 I47.2 Ventricular tachycardia Nicole Guerra M.D. 07/11/2018 T81.31xD Disruption of external operation Lucie Mora, RPA-C (surgical) wound, NEC, subs 07/11/2018 R33.9 Retention of urine, unspecified Priti Keller, DO 07/11/2018 T81.41xD Infct fol a proc, superfic Erin Bishop NP incisional surgical site, subs 07/11/2018 L02.91 Cutaneous abscess, unspecified Priti Keller, DO 07/11/2018 N39.0 Urinary tract infection, site not Erin Bishop NP specified 07/11/2018 J96.01 Acute respiratory failure with Priti Senmaurilio, DO hypoxia 07/11/2018 B96.1 Klebsiella pneumoniae as the cause Erin Bishop NP of diseases classd elswhr 07/11/2018 I13.0 Hyp hrt & chr kdny dis w hrt fail Priti Keller, DO and stg 1-4/unsp chr kdny 07/11/2018 N18.3 Chronic kidney disease, stage 3 Erin Bishop NP (moderate) 07/11/2018 N18.3 Chronic kidney disease, stage 3 Priti Keller, (moderate) 07/10/2018 T81.31xD Disruption of external operation KIRSTEN Sutton (surgical) wound, NEC, subs 07/10/2018 I47.2 Ventricular tachycardia Sugey Blackburn NP 07/10/2018 N18.3 Chronic kidney disease, stage 3 Sugey Blackburn NP (moderate) 07/10/2018 I50.33 Acute on chronic diastolic Sugey Blackburn NP (congestive) heart failure 07/10/2018 R33.9 Retention of urine, unspecified Sugey Blackburn NP 07/09/2018 T81.49xA Infection following a procedure, KIRSTEN Sutton other surgical site, init 07/09/2018 T81.41xD Infct fol a proc, superfic Erin Bishop NP incisional surgical site, subs 07/09/2018 D72.829 Elevated white blood cell count, Erin Bishop NP unspecified 07/09/2018 N39.0 Urinary tract infection, site not Erin Bishop NP specified 07/09/2018 B96.1 Klebsiella pneumoniae as the cause Erin Bishop NP of diseases classd elswhr 07/09/2018 N18.3 Chronic kidney disease, stage 3 Erin Bishop NP (moderate) 07/08/2018 T81.31xA Disruption of external operation Aaron Johnson MD (surgical) wound, NEC, init 07/08/2018 T81.31xA Disruption of external operation Veronica Benson PA-C (surgical) wound, NEC, init 07/08/2018 S72.002D Fx unsp part of nk of l femr, subs Aaron Johnson MD for clos fx w routn heal 07/08/2018 I47.2 Ventricular tachycardia Sugey Blackburn NP 07/08/2018 T81.41xD Infct fol a proc, superfic KIRSTEN Sutton incisional surgical site, subs 07/08/2018 I50.33 Acute on chronic diastolic Sugey Blackburn NP (congestive) heart failure 07/08/2018 T81.41xA Infct fol a proc, superfic Erin Bishop NP incisional surgical site, init 07/08/2018 I48.0 Paroxysmal atrial fibrillation Sugey Blackburn NP 07/08/2018 Z47.1 Aftercare following joint KIRSTEN Sutton replacement surgery 07/08/2018 N18.4 Chronic kidney disease, stage 4 Sugey Blackburn NP (severe) 07/08/2018 N39.0 Urinary tract infection, site not Erin Bishop NP specified 07/08/2018 Z96.642 Presence of left artificial hip Ayesha Willie PA joint 07/08/2018 B96.1 Klebsiella pneumoniae as the cause Erin Bishop NP of diseases classd elswhr 07/08/2018 N18.3 Chronic kidney disease, stage 3 Erin Bishop NP (moderate) 07/08/2018 Z96.642 Presence of left artificial hip Erin Bishop NP joint 07/07/2018 I47.2 Ventricular tachycardia Sugey Blackburn NP 07/07/2018 T81.31xA Disruption of external operation KIRSTEN Sutton (surgical) wound, NEC, init 07/07/2018 I50.33 Acute on chronic diastolic Sugey Blackburn NP (congestive) heart failure 07/07/2018 Z47.1 Aftercare following joint KIRSTEN Sutton replacement surgery 07/07/2018 I48.0 Paroxysmal atrial fibrillation Sugey Blackburn NP 07/07/2018 R94.31 Abnormal electrocardiogram [ECG] Talib Cisneros M.D. [EKG] 07/07/2018 N18.4 Chronic kidney disease, stage 4 Sugey Blackburn NP (severe) 07/07/2018 Z96.641 Presence of right artificial hip KIRSTEN Sutton joint 07/06/2018 T81.31xD Disruption of external operation Aaron Johnson MD (surgical) wound, NEC, subs 07/06/2018 N17.9 Acute kidney failure, unspecified Galo Cowan M.D. 07/06/2018 I47.2 Ventricular tachycardia Galo Cowan M.D. 07/06/2018 I11.0 Hypertensive heart disease with Glao Cowan M.D. heart failure 07/06/2018 I50.33 Acute on chronic diastolic Galo Cowan M.D. (congestive) heart failure 07/06/2018 I48.91 Unspecified atrial fibrillation Galo Cowan M.D. 07/05/2018 T81.31xD Disruption of external operation Aaron Johnson MD (surgical) wound, NEC, subs 07/05/2018 N17.9 Acute kidney failure, unspecified Galo Cowan M.D. 07/05/2018 I47.2 Ventricular tachycardia Carlos A Luz M.D., [facility], [facility] 07/05/2018 E87.1 Hypo-osmolality and hyponatremia Galo Cowan M.D. 07/05/2018 Z98.61 Coronary angioplasty status Carlos A Luz M.D., [facility], [facility] 07/05/2018 I50.31 Acute diastolic (congestive) heart Galo Cowan M.D. failure 07/05/2018 Z95.2 Presence of prosthetic heart valve Carlos A Luz M.D., [facility], [facility] 07/05/2018 I11.0 Hypertensive heart disease with Galo Cowan M.D. heart failure 07/04/2018 T81.31xD Disruption of external operation Aaron Johnson MD (surgical) wound, NEC, subs 07/04/2018 E87.1 Hypo-osmolality and hyponatremia Galo Cowan M.D. 07/04/2018 N17.9 Acute kidney failure, unspecified Galo Cowan M.D. 07/04/2018 I48.91 Unspecified atrial fibrillation Galo Cowan M.D. 07/03/2018 N17.9 Acute kidney failure, unspecified Charlette Weems, DO 07/03/2018 S72.012D Unspecified intracapsular fracture Aaron Johnson MD of left femur, subsequent 07/03/2018 D72.829 Elevated white blood cell count, Charlette Weems, unspecified 07/03/2018 S52.514D Nondisplaced fracture of right Aaron Johnson MD radial styloid process, subse 07/03/2018 R53.1 Weakness Charlette Weems, 07/03/2018 S46.011A Strain of muscle(s) and tendon(s) of Aaron Johnson MD the rotator cuff of rig 07/03/2018 R05 Cough Charlette Weems DO Plan of Treatment Future Appointment(s):01/22/2019 1:30 pm - Aaron Johnson MD at [facility] at Gbfiqj0101/26/2019 10:00 am - Bob Yang MD at [facility] Atbwgxihmn08/17/2019 - Aaron Johnson MDG56.01 Carpal tunnel syndrome, right upper limbNew Therapy:Physical TherapyFollow up:Follow up: 4 weeks Functional Status Description No Information Available Mental Status Description No Information Available Referrals Description No Information Available
--- OUTSIDE RECORDS SUMMARY | 2019-01-02 10:46 | XMS REPORT | Continuity of Care Document ---
:1930 External Reference #:[id number] Author Name Bob Yang MD (transmitted by agent of provider Sera Gao) Address [address] [place] [address] Care Team Providers Name Role Phone Susy Quevedo MD - Internal Care Team Information Conformal Pad Former Medicine Sahil Pang MD - Internal Care Team Information Conformal Pad Former Medicine Problems Active Problems Provider Date Aortic [...] Patient has never smoked Smoking Status Reviewed: 11/27/18 Patient has never smoked Exercise Type/Frequency Exercises rarely Allergies, Adverse Reactions, Alerts Description No Known Drug Allergies Medications Active Medications SIG Qnty Indications Ordering Date Provider Potassium Chloride 1 tab by mouth 30units Unknown 11/11/2018 twice a day ( 20Meq Packet discharged [facility] 11/03/18 , not taking this dose as of 11/19/18) Eliquis 1 tab po twice Unknown 07/16/2018 2.5mg Tablets daily Nitroglycerin 1 sl q5mins x3 as 25tabs Talib Medrano 10/17/2016 0.4mg needed for chest Sandoval Cisneros Tablets Sub pain Potassium Chloride ER 1 [...] 1 tablet po twice 60tabs Unknown daily [id number] Tablets Colace 1 po tid 180caps Unknown 100mg Capsules Folic Acid 1 po qd 90tabs Unknown 1mg Tablets Ferrous Sulfate 1 po qd 30tabs Unknown 325(65Fe) mg Tablets One Daily For Women 1 po qd Unknown 50+A Dvanced Women 50 Tablets Aspirin 1 po qd Unknown 81mg Tablets Furosemide 1 tablet po daily Stevanovic, 40mg Tablets morning ( MD Susy [place] 07[place]16[place]18 [facility] [place] Medications Spironolactone 1/2 tab by Unknown 11/10/2018 - 25mg Tablets mouth every 11/13/2018 day Keflex take 1 tab by 21caps Aaron Gomez 07/03/2018 - 500mg Capsules mouth 3 times MD Alex Unknown a day x 7 days until finished. Magnesium Oxide -MG 1 tab by mouth 60caps I48.91 Ashley Martinez, 2018 - Supplement 2x daily N.P. Unknown 400mg Capsules Medications Administered in Office Medication SIG Qnty Indications Ordering Provider Date Dexamethasone Sodium Aaron Johnson MD 09/25/2018 Phosphate, 1 MG Injection Depomedrol 40MG Aaron Johnson MD 09/25/2018 Injection Immunizations Description No Information Available Vital Signs Date Vital Result Comment 11/27/2018 1:00pm Height 66 inches 5'6" Weight 195.00 lb with shoes Heart Rate 52 /min BP Systolic Sitting 154 mmHg R arm BP Diastolic Sitting 66 mmHg R arm Peak Flow Meter 99 BMI (Body Mass Index) 31.5 kg/m2 11/25/2018 10:21am Height 66 inches 5'6" Weight 196.00 lb Heart Rate 55 /min Respiratory Rate 16 /min Pain Level 6 BMI (Body Mass Index) 31.6 kg/m2 Results Test Date Facility Test Result H/L Range Note Neph Routine 11/20/2018 [facility] Total Protein 6 mg/dL [address] [place] [address] [phone] Creatinine Random Urine 19.84 mg/dL CBC Auto 11/20/2018 [facility] White Blood 5.4 10^3/uL Normal 3.5-10.[address] [place] [address] [phone] Red Blood Count 3.23 10^6/uL Low 3.70-4.87 [...] Blood Cells % 0.0 Urinalysis Profile 11/20/2018 [facility] Urine Color Yellow [address] [place] [address] [phone] Urine Appearance Cloudy Urine Specific Calhoun 1.005 Low 1.010-1.030 Urine pH 7.0 Normal 5-9 Urine Urobilinogen Negative Negative Urine Ketones Negative Negative Urine Protein Negative Negative Urine Leukocytes Negative Negative Urine Blood Negative Negative Urine Nitrite Negative Negative Urine Bilirubin Negative Negative Urine Glucose Negative Negative Basic Metabolic 11/20/2018 [facility] Sodium 140 mmol/L Normal 135-[address] [place] [address] [phone] Potassium 4.1 mmol/L Normal 3.5-5.0 Chloride 102 mmol/L Normal 101-111 Co2 Carbon Dioxide 31 mmol/L Normal 22-32 Anion Gap 7 mmol/L Normal 2-11 Glucose 89 mg/dL Normal 70-100 Blood Urea Nitrogen 22 mg/dL Normal 6-24 Creatinine 1.67 mg/dL High 0.51-0.95 BUN/Creatinine Ratio 13.2 Normal 8-20 Calcium 9.1 mg/dL Normal 8.6-10.3 Egfr Non- 29.0 >60 Egfr 35.0 >60 1 Protein 11/20/2018 [facility] Total 6.5 g/dL 6.3 - Electrophoresis 101 Protein(Pep) 7.9 [place] [address] [phone] Albumin 3.4 g/dL 3.4-4.7 Alpha-1 Globulin 0.3 g/dL 0.1-0.3 Alpha-2 Globulin 1.0 g/dL 0.6-1.0 Beta Globulin 1.0 g/dL 0.7-1.2 Gamma Globulin 0.9 g/dL 0.6-1.6 Albumin/Globulin Ratio 1.13 Impression See Comment 2 Golinda/Lambda Free 11/20/2018 [facility] Golinda Free 6.31 mg/dL Abnormal [address] [place] [place] [address] [phone] Lambda Free Light Chain 2.74 mg/dL Abnormal 4 Golinda/Lambda Free Light Chain 2.30 Abnormal 5 Laboratory test 11/20/2018 [facility] TSH (Thyroid 7.09 High 0.34-5.[address] Stim Horm) mcIU/[place] [address] [phone] T3 Free 2.30 pg/mL Low 2.5-3.9 Free T4 (Free Thyroxine) 1.16 ng/dL High 0.61-1.12 T3 Total 51 ng/dL Low 87-178 Thyroperoxidase AB 0.20 IU/mL Normal <9 Thyroglobulin AB 0.0 IU/mL <4.0 Laboratory test 08/18/2018 [facility] Magnesium 1.8 mg/dL Low 1.9-2.7 finding [address] [place] [address] [phone] Troponin-I (TnI) 0.01 ng/mL <0.04 6 TSH (Thyroid Stim Horm) 4.36 mcIU/mL Normal 0.34-5.60 Free T4 (Free Thyroxine) 1.16 ng/dL High 0.61-1.12 Comp Metabolic Panel 08/18/2018 [facility] Sodium 134 mmol/L Low 135-145 [address] [place] [address] [phone] Potassium 3.6 mmol/L Normal 3.5-5.0 Chloride 98 [...] Egfr Non- 28.8 >60 Egfr 34.9 >60 7 Inr/Protime 08/18/2018 [facility] Inr 1.85 High 0.82-1.09 8 [address] [place] [address] [phone] CBC Auto Diff 08/18/2018 [facility] White Blood 7.5 Normal 3.5 -10.[address] Count 10^3/[place] [address] [phone] Red Blood Count 2.96 10^6/uL Low 3.70-4.87 [...] Blood Cells % 0.0 Laboratory test 08/18/2018 [facility] Troponin-I (TnI) 0.01 ng/ mL <0.04 9 finding [address] [place] [address] [phone] Laboratory test 08/18/2018 [facility] Troponin-I (TnI) 0.01 ng/ mL <0.04 10 finding [address] [place] [address] [phone] Urinalysis 08/05/2018 [facility] Urine Color Yellow Profile [address] [place] [address] [phone] Urine Appearance Clear Urine Specific Calhoun 1.005 Low 1.010-1.030 Urine pH 6.0 Normal 5-9 Urine Urobilinogen Negative Negative Urine Ketones Negative Negative Urine Protein Negative Negative Urine Leukocytes 1+ Abnormal Negative Urine Blood Negative Negative Urine Nitrite Negative Negative Urine Bilirubin Negative Negative Urine Glucose Negative Negative Urine White Blood Cell Trace(0-5/hpf) Absent Urine Red Blood Cell Absent Absent Urine Bacteria Absent Absent Urine Culture And 08/05/2018 [facility] Urine Culture SEE RESULT [address] [place] [address] [phone] 1 Because ethnic data is not always [...] protein on serum electrophoresis. Test Performed by: [facility] [address] [place] [address] Captain Of Guards: Mick Covington M.D. Ph.D.; CLIA# [id number] 3 REFERENCE VALUE 0.3300-1.94 4 REFERENCE VALUE 0.5700-2.63 5 Elevated free light chain ratios between 1.66 and 3.00 may occur due to polyclonal hypergammaglobulinemia or impaired renal clearance. An isolated increased free light chain ratio in this range should be interpreted with caution, and clinical correlation is recommended. REFERENCE VALUE 0.2600-1.65 Test Performed by: [facility] [address] [place] [address] Captain Of Guards: Mick Covington M.D. Ph.D.; CLIA# [id number] 6 Troponin-I testing on Plasma Separator Tubes (PST) has a known false positive rate of 0.20-0.40%. All positive troponins reflex immediately to secondary confirmatory testing. Using the [employer] DxI 800 Access Immunoassay systems, the 99th percentile upper reference limit was demonstrated to be < 0.03 ng/mL. 7 Because ethnic data is not always [...] 5 Kidney failure <15 (or dialysis) 8 Standard intensity warfarin therapeutic range: 2.0-3.0 High intensity warfarin therapeutic range: 2.5-3.5 9 Troponin-I testing on Plasma Separator Tubes (PST) has a known false positive rate of 0.20-0.40%. All positive troponins reflex immediately to secondary confirmatory testing. Using the [employer] DxI 800 Access Immunoassay systems, the 99th percentile upper reference limit was demonstrated to be < 0.03 ng/mL. 10 Troponin-I testing on Plasma Separator Tubes (PST) has a known false positive rate of 0.20-0.40%. All positive troponins reflex immediately to secondary confirmatory testing. Using the [employer] DxI 800 Access Immunoassay systems, the 99th percentile upper reference limit was demonstrated to be < 0.03 ng/mL. 11 SEE RESULT BELOW Name: VERONICA BHAT : [address]: Nicole Guerra MD Acct: [id number] Unit: [id number] AGE: 87 Location: [place] [address] Re08/06/18 SEX: F Status: ADM IN SPEC: [id number] LACEY: 08/05/[address] [facility] [address]: Dinora CURTIS REQ: [id number] RECD: 08/05/18 STATUS: DAVID CARDENAS DR: Carlos A Quevedo MD PC _ SOURCE: URINE SPDESC: ORDERED: Urine Culture Procedure Result Reported Site Urine Culture Final 08/07/18- 0840 ML Few Enterobacteriacae; possible contamination. * ML - Main Lab . END OF REPORT DEPARTMENT OF PATHOLOGY, [address] [place] [address] Brendon Nicole M.D. Director [facility] # [id number] Procedures Date Code Description Status 11/19/2018 06855 EKG Tracing & Interpretation Completed 11/03/2018 01916 Cardioversion Completed 09/25/201805592 Inject/Drain Joint/Bursa Major W/O US Completed 09/25/2018 Injection, Carpal Tunnel Completed 08/20/2018 90205 EKG Tracing & Interpretation Completed 08/18/2018 52669 Cardioversion Completed 08/06/2018 86236 Moderate Sedation Services; Same Phys Intl 15 Mins; PT Completed >= 5 Years 08/06/2018 49695 EKG, Interpretation Only Completed 08/06/2018 33560 Cardioversion Completed 07/25/2018 69028 EKG Tracing & Interpretation Completed 07/08/2018 73571 Secondary Closure Of Surgical Wound Or Dehiscence Completed Extensive Or Co 07/08/2018 25522 Secondary Closure Of Surgical Wound Or Dehiscence Completed Extensive Or Co 07/07/2018 64355 ECHO Transthorasic Realtime 2D W Doppler & Color Flow Completed Hosp 06/09/2018 63645 EKG, Interpretation Only Completed 06/09/2018 95507 Cardioversion Completed 05/30/2018 43009 EKG Tracing & Interpretation Completed 02/21/2018 [id number] Colonoscopy Completed 04/19/2009 10325641 Colonoscopy Completed Medical Devices Description No Information Available Encounters Type Date Location Provider Dx Diagnosis Office Visit 11/19/2018 [facility] Talib Medrano I48.0 Paroxysmal atrial 10:45a Of Nathaniel Cisneros M.D. 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 atrial Hospitalists fibrillation M54.9 Dorsalgia, unspecified N18.4 Chronic kidney disease, stage 4 (severe) Office Visit 09/25/2018 2:30p Orthopedic Aaron F S46.011A Strain of Services Of MD Alex musc/tend the C.M.A. rotator cuff of right shoulder, init M19.011 Primary osteoarthritis, right shoulder G56.01 Carpal tunnel syndrome, right upper limb S72.002D Fx unsp part of nk of perry boggs, subs for clos fx w routn heal Office Visit 08/20/2018 3:15p [facility] Talib Medrano Z95.2 Presence of Of Nathaniel Cisneros M.D. prosthetic heart valve I25.10 Athscl heart disease of [place] coronary artery w/o ang pctrs I48.0 Paroxysmal atrial fibrillation Office Visit 08/08/2018 [facility] Nicole Guerra, I50.33 Acute on chronic 9:41a lo Murcia M.D. diastolic Hospitalists (congestive) heart failure I48.91 Unspecified atrial fibrillation E83.42 Hypomagnesemia Office Visit 08/06/2018 [facility] Nicole Guerra, I48.91 Unspecified 9:40a lo Murcia M.D. atrial Hospitalists fibrillation I50.33 Acute on chronic diastolic (congestive) heart failure D64.9 Anemia, unspecified N18.3 Chronic kidney disease, stage 3 (moderate) Office Visit 08/06/2018 2:28p [facility] Conchita Paintinger, I48.91 Unspecified atrial Cardiology Of [place] fibrillation [facility] I25.10 Athscl heart disease of [place] coronary artery w/o ang pctrs E87.8 Oth disorders of electrolyte and fluid balance, NEC Office Visit 08/05/2018 [facility] Dinora I48.91 Unspecified 9:39a Assoc,KIRSTEN Rivera atrial Hospitalists fibrillation I50.9 Heart failure, unspecified R74.8 Abnormal levels of other serum enzymes E83.42 Hypomagnesemia E87.1 Hypo-osmolality and hyponatremia Office Visit 07/25/2018 11:45a [facility] Talib D. I25.10 Athscl heart Of Nathaniel Cisneros M.D. disease of [place] coronary artery w/o ang pctrs Z95.2 Presence of prosthetic heart valve I48.0 Paroxysmal atrial fibrillation Office Visit 07/16/2018 [facility] Vikki Christo, T81.49xA Infection 9:02a Assoc,pc WEIGHT INSPECTOR following a Hospitalists procedure, other surgical site, init J96.01 Acute respiratory failure with hypoxia I13.0 Hyp hrt & chr kdny dis w hrt fail and stg 1-4/unsp chr kdny N39.0 Urinary tract infection, site not specified B96.1 Klebsiella pneumoniae as the cause of diseases classd elswhr I47.2 Ventricular tachycardia I48.91 Unspecified atrial fibrillation R33.9 Retention of urine, unspecified Office Visit 07/15/2018 9:00a [facility] Vikki Christo, I13.0 Hyp hrt & chr Assoc,pc WEIGHT INSPECTOR kdny dis w hrt Hospitalists fail and stg 1-4/unsp chr kdny N18.3 Chronic kidney disease, stage 3 (moderate) I47.2 Ventricular tachycardia I48.0 Paroxysmal atrial fibrillation Office Visit 07/14/2018 [facility] Nicole Guerra, I47.2 Ventricular 8:59a Assoc,lo Nick tachycardia Hospitalists N18.3 Chronic kidney disease, stage 3 (moderate) I13.0 Hyp hrt & chr kdny dis w hrt fail and stg 1-4/unsp chr kdny Office Visit 07/14/2018 [facility] T81.41xD Infct fol a 5:52a For Infectious MADY Bishop proc, superfic Diseases incisional surgical site, subs N39.0 Urinary tract infection, site not specified B96.1 Klebsiella pneumoniae as the cause of diseases classd elswhr N18.3 Chronic kidney disease, stage 3 (moderate) Office Visit 07/13/2018 [facility] Nicole Guerra, L02.91 Cutaneous 8:59a Assoc,lo Nick abscess, Hospitalists unspecified R33.9 Retention of urine, unspecified I13.0 Hyp hrt & chr kdny dis w hrt fail and stg 1-4/unsp chr kdny N18.3 Chronic kidney disease, stage 3 (moderate) [facility], R33.9 Retention of 8:57a Assoclo M.D. urine, Hospitalists unspecified I13.0 Hyp hrt & chr kdny dis w hrt fail and stg 1-4/unsp chr kdny N18.3 Chronic kidney disease, stage 3 (moderate) I47.2 Ventricular tachycardia Office Visit 07/11/2018 8:56a [facility] Priti R33.9 Retention of Assoc,lo Keller, DO urine, Hospitalists unspecified L02.91 Cutaneous abscess, unspecified J96.01 Acute respiratory failure with hypoxia I13.0 Hyp hrt & chr kdny dis w hrt fail and stg 1-4/unsp chr kdny N18.3 Chronic kidney disease, stage 3 (moderate) Office Visit 07/11/2018 [facility] T81.41xD Infct fol a 7:56a For Infectious MADY Bishop proc, superfic Diseases incisional surgical site, subs N39.0 Urinary tract infection, site not specified B96.1 Klebsiella pneumoniae as the cause of diseases classd elswhr N18.3 Chronic kidney disease, stage 3 (moderate) Office Visit 07/10/2018 8:55a [facility] Sugey I47.2 Ventricular Assoc,lo Blackburn, tachycardia Hospitalists WEIGHT INSPECTOR N18.3 Chronic kidney disease, stage 3 (moderate) I50.33 Acute on chronic diastolic (congestive) heart failure R33.9 Retention of urine, unspecified Office Visit 07/09/2018 [facility] T81.41xD Infct fol a 7:53a For Infectious MADY Bishop proc, superfic Diseases incisional surgical site, subs D72.829 Elevated white blood cell count, unspecified N39.0 Urinary tract infection, site not specified B96.1 Klebsiella pneumoniae as the cause of diseases classd elswhr N18.3 Chronic kidney disease, stage 3 (moderate) Office Visit 07/08/2018 8:54a [facility] Sugey I47.2 Ventricular Assoc,[facility] Alexey, tachycardia Hospitalists WEIGHT INSPECTOR I50.33 Acute on chronic diastolic (congestive) heart failure I48.0 Paroxysmal atrial fibrillation N18.4 Chronic kidney disease, stage 4 (severe) Office Visit 07/08/2018 [facility] T81.41xA Infct fol a 7:48a For Infectious MADY Bishop proc, superfic Diseases incisional surgical site, init N39.0 Urinary tract infection, site not specified B96.1 Klebsiella pneumoniae as the cause of diseases classd elswhr N18.3 Chronic kidney disease, stage 3 (moderate) Z96.642 Presence of left artificial hip joint Office Visit 07/07/2018 8:53a [place] Walt Mayes I47.2 Ventricular Assoc,lo Blackburn, tachycardia Hospitalists WEIGHT INSPECTOR I50.33 Acute on chronic diastolic (congestive) heart failure I48.0 Paroxysmal atrial fibrillation N18.4 Chronic kidney disease, stage 4 (severe) Office Visit 07/06/2018 8:53a [place] Walt Rosenthal N17.9 Acute kidney Assoc,lo Cowan M.D. failure, Hospitalists unspecified I47.2 Ventricular tachycardia I11.0 Hypertensive heart disease with heart failure I50.33 Acute on chronic diastolic (congestive) heart failure I48.91 Unspecified atrial fibrillation Office Visit 07/05/2018 8:52a [place] Walt Rosenthal N17.9 Acute kidney Assoc,lo Cowan M.D. failure, Hospitalists unspecified E87.1 Hypo-osmolality and hyponatremia I50.31 Acute diastolic (congestive) heart failure I11.0 Hypertensive heart disease with heart failure Office Visit 07/05/2018 4:26p [facility] Carlos A Waters I47.2 Ventricular Of Nathaniel Luz M.D., tachycardia FACC, FASNC Z98.61 Coronary angioplasty status Z95.2 Presence of prosthetic heart valve Office Visit 07/04/2018 [facility] Galo E87.1 Hypo-osmolality and 8:51a Asslo blunt M.D. hyponatremia Hospitalists N17.9 Acute kidney failure, unspecified I48.91 Unspecified atrial fibrillation Office Visit 07/03/2018 8:50a [facility] Charlette N17.9 Acute kidney Assoc,lo Weems, DO [...] of right shoulder, init Office Visit 06/10/2018 [facility] I48.91 Unspecified atrial 4:48p Asslo blunt M.D. fibrillation Hospitalists E03.9 Hypothyroidism, unspecified D64.9 Anemia, unspecified Office Visit 06/09/2018 [facility] I48.91 Unspecified atrial 9:14a Asslo blunt M.D. 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 fibrillation Office Visit 06/05/2018 10:28a [facility] Jesus Alberto S. 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 I48.91 Unspecified atrial Of Edge Polisher Foster, N.P. fibrillation I10 Essential (primary) hypertension R60.9 Edema, unspecified I50.32 Chronic diastolic (congestive) heart failure Assessments Date Code Description Provider 11/27/2018 N18.4 Chronic kidney disease, stage 4 Bob Yang MD (severe) 11/27/2018 N17.9 Acute kidney failure, unspecified Bob Yang MD 11/27/2018 I10 Essential (primary) hypertension Bob Yang MD 11/27/2018 I12.9 Hypertensive chronic kidney disease Bob Yang MD with stage 1 through stage 4 chronic kidney disease, or unspecified chronic kidney disease 11/27/2018 I48.0 Paroxysmal atrial fibrillation Bob Yang [...] Atherosclerotic heart disease of Talib Cisneros M.D. [place] coronary artery with 11/19/2018 Z95.2 Presence of [...] D64.9 Anemia, unspecified Bob Yang MD 11/03/2018 I48.91 Unspecified atrial fibrillation Talib Cisneros M.D. 11/03/2018 I48.91 Unspecified atrial fibrillation Kerline Garza MD 11/03/2018 M54.9 Dorsalgia, unspecified Kerline Garza MD 11/02/2018 I48.91 Unspecified atrial fibrillation Nicole Guerra M.D. 11/02/2018 M54.9 Dorsalgia, unspecified Nicole Guerra M.D. 11/02/2018 N18.4 Chronic kidney disease, stage 4 Nicole Guerra M.D. (severe) 09/25/2018 S46.011A Strain of muscle(s) and tendon(s) [...] Atherosclerotic heart disease of Talib Cisneros M.D. [place] coronary artery with 08/20/2018 I48.0 Paroxysmal atrial [...] Atherosclerotic heart disease of Conchita Thompson M.D. [place] coronary artery with 08/06/2018 D64.9 Anemia, unspecified Nicole Guerra M.D. 08/06/2018 E87.8 Other disorders of electrolyte and Conchita Thompson M.D. fluid balance, not elsewhere classified 08/06/2018 N18.3 Chronic kidney disease, stage 3 Nicole Guerra M.D. (moderate) 08/05/2018 I48.91 Unspecified atrial fibrillation KIRSTEN Mae 08/05/2018 I50.9 Heart failure, unspecified KIRSTEN Mea 08/05/2018 R74.8 Abnormal levels of other serum KIRSTEN Mae enzymes 08/05/2018 E83.42 Hypomagnesemia KIRSTEN Mae 08/05/2018 E87.1 Hypo-osmolality and hyponatremia KIRSTEN Mae 07/25/2018 I25.10 Atherosclerotic heart disease of Talib Cisneros M.D. [place] coronary artery with 07/25/2018 Z95.2 Presence of prosthetic heart valve Talib Cisneros M.D. 07/25/2018 I48.0 Paroxysmal atrial fibrillation Talib Cisneros M.D. 07/22/2018 T81.41xD Infection following a procedure, Aaron Johnson MD superficial incisional surg 07/22/2018 S72.012D Unspecified intracapsular fracture Araon Johnson MD of left femur, subsequent 07/16/2018 T81.49xA Infection following a procedure, Vikki Christo, WEIGHT INSPECTOR other surgical site, init 07/16/2018 J96.01 Acute respiratory failure with Vikki Christo, WEIGHT INSPECTOR hypoxia 07/16/2018 I13.0 Hyp hrt & chr kdny dis w hrt fail Vikki Christo, WEIGHT INSPECTOR and stg 1-4/unsp chr kdny 07/16/2018 N39.0 Urinary tract infection, site not Vikki Christo, WEIGHT INSPECTOR specified 07/16/2018 B96.1 Klebsiella pneumoniae as the cause Vikki Christo, WEIGHT INSPECTOR of diseases classd elswhr 07/16/2018 I47.2 Ventricular tachycardia Vikki Christo, WEIGHT INSPECTOR 07/16/2018 I48.91 Unspecified atrial fibrillation Vikki Christo, WEIGHT INSPECTOR 07/16/2018 R33.9 Retention of urine, unspecified Vikki Christo, WEIGHT INSPECTOR 07/15/2018 I13.0 Hyp hrt & chr kdny dis w hrt fail Vikki Christo, WEIGHT INSPECTOR and [facility] 07/15/2018 N18.3 Chronic kidney disease, stage 3 Vikki Christo, WEIGHT INSPECTOR (moderate) 07/15/2018 I47.2 Ventricular tachycardia Vikki Christo, WEIGHT INSPECTOR 07/15/2018 I48.0 Paroxysmal atrial fibrillation Vikki Christo, WEIGHT INSPECTOR 07/14/2018 T81.41xD Infection following a procedure, Erin [...] w hrt fail Nicole Guerra M.D. and [facility] 07/13/2018 L02.91 Cutaneous abscess, unspecified Nicole Guerra M.D. 07/13/2018 R33.9 Retention of urine, unspecified Nicole Guerra M.D. 07/13/2018 I13.0 Hyp hrt & chr kdny dis w hrt fail Nicole Guerra M.D. and [facility] 07/13/2018 N18.3 Chronic kidney disease, stage 3 Nicole Guerra M.D. (moderate) 07/12/2018 T81.31xD Disruption of external operation Caroline Chatman RPA-C (surgical) wound, NEC, subs 07/12/2018 R33.9 Retention of urine, unspecified Nicole Guerra M.D. 07/12/2018 I13.0 Hyp hrt & chr kdny dis w hrt fail Nicole Guerra M.D. and stg 1-4/unsp [facility] 07/12/2018 N18.3 Chronic kidney disease, stage 3 Nicole Guerra M.D. (moderate) 07/12/2018 I47.2 Ventricular tachycardia Nicole Guerra M.D. 07/11/2018 T81.31xD Disruption of external operation KATHERIN Mcpherson (surgical) wound, NEC, subs 07/11/2018 R33.9 Retention of urine, unspecified Priti Krishna, DO 07/11/2018 T81.41xD Infct fol a proc, superfic Erin Bishop NP incisional surgical site, subs 07/11/2018 L02.91 Cutaneous abscess, unspecified Priti Krishna, DO 07/11/2018 N39.0 Urinary tract infection, site not Erin Bishop NP specified 07/11/2018 J96.01 Acute respiratory failure with Priti Senner, DO hypoxia 07/11/2018 B96.1 Klebsiella pneumoniae as the cause Erin Bishop NP of diseases classd elsr 07/11/2018 I13.0 Hyp hrt & chr kdny dis w hrt fail Priti Senner, DO and stg 1-4/unsp chr kdny 07/11/2018 N18.3 Chronic kidney disease, stage 3 Erin Bishop NP (moderate) 07/11/2018 N18.3 Chronic kidney disease, stage 3 Priti Senner, DO (moderate) 07/10/2018 T81.31xD Disruption of external operation KIRSTEN Sutton (surgical) wound, NEC, subs 07/10/2018 I47.2 Ventricular tachycardia Sugey Blackburn NP 07/10/2018 N18.3 Chronic kidney disease, stage 3 Sugey Blackburn NP (moderate) 07/10/2018 I50.33 Acute on chronic diastolic Sugey Blackburn NP (congestive) heart failure 07/10/2018 R33.9 Retention of urine, unspecified Sugeycarlo Blackburn NP 07/09/2018 T81.49xA Infection following a [...] w routn heal 07/08/2018 I47.2 Ventricular tachycardia Sugeycarlo Blackburn NP 07/08/2018 T81.41xD Infct fol a [...] Z96.642 Presence of left artificial hip Ayesha TapiaKIRSTEN joint 07/08/2018 B96.1 Klebsiella pneumoniae as the cause Eringlory Bishop NP of diseases classd elswhr 07/08/2018 N18.3 Chronic kidney disease, stage 3 Erin BishopMADY (moderate) 07/08/2018 Z96.642 Presence of left artificial hip Erin Martínez Bishop NP joint 07/07/2018 I47.2 Ventricular tachycardia Sugeycarlo Blackburn NP 07/07/2018 T81.31xA Disruption of external operation KIRSTEN Sutton (surgical) wound, NEC, init 07/07/2018 I50.33 Acute on chronic diastolic Sugey Blackburn NP (congestive) heart failure 07/07/2018 Z47.1 Aftercare following joint KIRSTEN Sutton replacement surgery 07/07/2018 I48.0 Paroxysmal atrial fibrillation Sugey Blackburn NP 07/07/2018 R94.31 Abnormal electrocardiogram [ECG] Talib Cisneros M.D. [EKG] 07/07/2018 N18.4 Chronic kidney disease, stage 4 Sugey Geraldo Blackburn NP (severe) 07/07/2018 Z96.641 Presence of right artificial hip KIRSTEN Sutton joint 07/06/2018 T81.31xD Disruption of external operation Aaron Johnson MD (surgical) wound, NEC, subs 07/06/2018 N17.9 Acute kidney failure, unspecified Galo Cowan M.D. 07/06/2018 I47.2 Ventricular tachycardia Galo Cowan M.D. 07/06/2018 I11.0 Hypertensive heart disease with Galo Cowan M.D. heart failure 07/06/2018 I50.33 Acute on chronic diastolic Galo Cowan M.D. (congestive) heart failure 07/06/2018 I48.91 Unspecified atrial fibrillation Galo Cowan M.D. 07/05/2018 T81.31xD Disruption of external operation Aaron Johnson MD (surgical) wound, NEC, subs 07/05/2018 N17.9 Acute kidney failure, unspecified Galo Cowan M.D. 07/05/2018 I47.2 Ventricular tachycardia Carlos A Luz M.D., [facility] 07/05/2018 E87.1 Hypo-osmolality and hyponatremia Galo Cowan M.D. 07/05/2018 Z98.61 Coronary angioplasty status Carlos A Luz M.D., [facility], [facility] 07/05/2018 I50.31 Acute diastolic (congestive) heart Galo Cowan M.D. failure 07/05/2018 Z95.2 Presence of prosthetic heart valve Carlos A Luz M.D., [facility], [facility] 07/05/2018 I11.0 Hypertensive heart disease with [...] Elevated white blood cell count, Charlette Weems, DO unspecified 07/03/2018 S52.514D Nondisplaced fracture of right Aaron Johnson MD radial styloid process, subse 07/03/2018 R53.1 Weakness Charlette Weems, DO 07/03/2018 S46.011A Strain of muscle(s) and tendon(s) of Aaron Johnson MD the rotator cuff of rig 07/03/2018 R05 Cough Charlette Weems, DO 06/10/2018 I48.91 Unspecified atrial fibrillation Rubina Ireland M.D. 06/10/2018 E03.9 Hypothyroidism, unspecified Rubina Ireland M.D. 06/10/2018 D64.9 Anemia, unspecified Rubina Ireland M.D. 06/09/2018 Z51.89 Encounter for other specified Nemo Benjamin MD, [facility], aftercare [facility] 06/09/2018 I48.91 Unspecified atrial fibrillation Rubina Ireland M.D. 06/09/2018 I48.0 Paroxysmal atrial fibrillation Talib Cisneros M.D. 06/09/2018 E03.9 Hypothyroidism, unspecified Rubina Ireland M.D. 06/09/2018 D64.9 Anemia, unspecified Rubina Ireland M.D. 06/08/2018 I48.91 Unspecified atrial fibrillation Nisreen Bull MD 06/08/2018 I48.0 Paroxysmal atrial fibrillation Conchita Thompson M.D. 06/08/2018 E03.9 Hypothyroidism, unspecified Nisreen Bull MD 06/08/2018 Z95.2 Presence of prosthetic heart valve Conchita Thompson M.D. 06/08/2018 I49.3 Ventricular premature depolarization Nisreen Bull MD 06/08/2018 I25.2 Old myocardial infarction Conchita Thompson M.D. 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 06/07/2018 I48.91 Unspecified atrial fibrillation Nisreen Bull MD 06/07/2018 I48.0 Paroxysmal atrial fibrillation Conchita Thompson M.D. 06/07/2018 I49.3 Ventricular premature depolarization Nisreen Bull MD 06/07/2018 Z95.2 Presence of prosthetic heart valve Conchita Thompson M.D. 06/07/2018 E03.9 Hypothyroidism, unspecified Nisreen Bull MD 06/07/2018 I25.2 Old myocardial infarction Conchita Thompson M.D. 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 06/06/2018 I48.91 Unspecified atrial fibrillation Nicole Charlie, M.D. 06/06/2018 I48.0 Paroxysmal atrial fibrillation Jesus Alberto Sherman, DO FAC 06/06/2018 D63.1 Anemia in chronic kidney disease Nicole Guerra M.D. 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 06/05/2018 I48.0 Paroxysmal atrial fibrillation Jesus Alberto Sherman, DO FACC 06/05/2018 Z95.2 Presence of prosthetic heart valve Jesus Alberto Sherman, DO FACC 06/05/2018 I25.2 Old myocardial infarction Jesus Alberto Sherman, DO FACC 06/05/2018 I25.10 Atherosclerotic heart disease of Jesus Alberto Sherman, DO FACC [place] coronary artery with 06/05/2018 Z98.61 Coronary angioplasty status Jesus Alberto Sherman, DO FACC 05/30/2018 I48.91 Unspecified atrial fibrillation Talib Cisneros M.D. 05/30/2018 I48.91 Unspecified atrial fibrillation Ashley Martinez, N.P. 05/30/2018 I10 Essential (primary) hypertension Ashley Martinez, N.P. 05/30/2018 R60.9 Edema, unspecified Ashley Martinez, N.P. 05/30/2018 I50.32 Chronic diastolic (congestive) heart Ashley Martinez, N.P. failure Plan of Treatment Future Appointment(s):01/26/2019 10:00 am - Bob Yang MD at [facility] Emdbdnbljf09/02/2019 9:30 am - [facility] 2:45 pm - [facility] at [facility]..11/27/2018 - Bob Yang MDN18.4 Chronic kidney disease, stage 4 ( severe)Follow up:2 months with LabsN17.9 Acute kidney failure, [id number] Essential (primary) [id number] Hypertensive chronic kidney disease with stage 1 through stage 4 chronic kidney disease, or unspecified chronic kidney yiituddA51.0 Paroxysmal atrial fibrillation Functional Status Description No Information Available Mental Status Description No Information Available Referrals Description No Information Available
--- OUTSIDE RECORDS SUMMARY | 2019-01-02 10:46 | XMS REPORT | Continuity of Care Document ---
:1930 External Reference #:[id number] Author Name Talib Cisneros M.D. (transmitted by agent of provider Ariane Alvares) Address [address] [facility] [place] [address] Care Team Providers Name Role Phone Susy Quevedo MD - Internal Care Team Information Community Service Coordinator Medicine Sahil Pang MD - Internal Care Team Information Community Service Coordinator [phone] Medicine Problems Active Problems Provider Date Aortic [...] Patient has never smoked Smoking Status Reviewed: 11/19/18 Patient has never smoked Exercise Type/Frequency Exercises [...] Unknown day ( Per 25mcg Tablets discharge 08/08/18 ) Atorvastatin Calcium 1 by mouth every Unknown day 40mg Tablets Calcium 600 + D 1 tablet po twice 60tabs Unknown daily [id number] Tablets Colace 1 po tid 180caps Unknown 100mg Capsules Folic Acid 1 po qd 90tabs Unknown 1mg Tablets Ferrous Sulfate 1 po qd 30tabs Unknown 325(65Fe) mg Tablets One Daily For Women 1 po qd Unknown 50+A Dvanced Women 50 Tablets Aspirin 1 po qd Unknown 81mg Tablets Furosemide 1 tablet po daily Stevanoeulogio, 40mg Tablets morning ( MD Susy discharge 07/16/18 [facility]) History Medications Spironolactone 1/2 tab by Unknown [...] Available Vital Signs Date Vital Result Comment 11/19/2018 10:40am Height 66 inches 5'6" Weight 198.00 lb with shoes BP Systolic Sitting 124 mmHg Lue lg cuff BP Diastolic Sitting 70 mmHg Lue lg cuff BP Systolic Standing 122 mmHg Lue lg cuff BP Diastolic Standing 66 mmHg Lue lg cuff BMI (Body Mass Index) 32.0 kg/m2 Ejection Fraction 55-60% date 07/07/18 ECHO 11/13/2018 9:49am Height 66 inches 5'6" Weight 196.00 lb with shoes Heart Rate 53 /min BP Systolic Sitting 146 mmHg R arm BP Diastolic Sitting 66 mmHg R arm O2 % BldC Oximetry 96 % BMI (Body Mass Index) 31.6 kg/m2 Results Test Date Facility Test Result H/L Range Note Laboratory test 08/18/2018 [facility] Troponin-I 0.01 ng/mL < 0.04 [address] (TnI) [place] [address] [phone] Laboratory test 08/18/2018 [facility] Troponin-I 0.01 ng/mL < 0.04 [address] (TnI) [place] [address] [phone] CBC Auto Diff 08/18/2018 [facility] White Blood 7.5 10^3/uL Normal 3.5-10.[address] [place] [address] [phone] Red Blood Count 2.96 10^6/uL Low 3.70-4.87 [...] % Nucleated Red Blood Cells % 0.0 Inr/Protime 08/18/2018 [facility] Inr 1.85 High 0.82-1.09 3 [address] [place] [address] [phone] Comp Metabolic 08/18/2018 [facility] Sodium 134 mmol/L Low 135 -145 Panel [address] [place] [address] [phone] Potassium 3.6 mmol/L Normal 3.5-5.0 Chloride 98 [...] Egfr Non- 28.8 >60 Egfr 34.9 >60 4 Laboratory test 08/18/2018 [facility] Magnesium 1.8 mg/dL Low 1.9-2.7 finding [address] [place] [address] [phone] Troponin-I (TnI) 0.01 ng/mL <0.04 5 TSH (Thyroid Stim Horm) 4.36 mcIU/mL Normal 0.34-5.60 Free T4 (Free Thyroxine) 1.16 ng/dL High 0.61-1.12 Urinalysis Profile 08/05/2018 [facility] Urine Color Yellow [address] [place] [address] [phone] Urine Appearance Clear Urine Specific [place] 1.005 Low 1.010-1.030 Urine pH 6.0 Normal 5-9 Urine Urobilinogen Negative Negative Urine Ketones Negative Negative Urine Protein Negative Negative Urine Leukocytes 1+ Abnormal Negative Urine Blood Negative Negative Urine Nitrite Negative Negative Urine Bilirubin Negative Negative Urine Glucose Negative Negative Urine White Blood Cell Trace(0-5/hpf) Absent Urine Red Blood Cell Absent Absent Urine Bacteria Absent Absent Urine Culture And 08/05/2018 [facility] Urine Culture SEE RESULT [address] [place] [address] [phone] 1 Troponin-I testing on Plasma Separator Tubes (PST) has a known false positive rate of 0.20-0.40%. All positive troponins reflex immediately to secondary confirmatory testing. Using the Un[employer]el DxI 800 Access Immunoassay systems, the 99th percentile upper reference limit was demonstrated to be < 0.03 ng/mL. 2 Troponin-I testing on Plasma Separator Tubes (PST) has a known false positive rate of 0.20-0.40%. All positive troponins reflex immediately to secondary confirmatory testing. Using the [employer] DxI 800 Access Immunoassay systems, the 99th percentile upper reference limit was demonstrated to be < 0.03 ng/mL. 3 Standard intensity warfarin therapeutic range: 2.0-3.0 High intensity warfarin therapeutic range: 2.5-3.5 4 Because ethnic data is not always readily [...] 15-29 5 Kidney failure <15 (or dialysis) 5 Troponin-I testing on Plasma Separator Tubes (PST) has a known false positive rate of 0.20-0.40%. All positive troponins reflex immediately to secondary confirmatory testing. Using the Novalys DxI 800 Access Immunoassay systems, the 99th percentile upper reference limit was demonstrated to be < 0.03 ng/mL. 6 SEE RESULT BELOW Name: VERONICA BHAT : [address]: Nicole Guerra MD Acct: [id number] Unit: [id number] AGE: 87 Location: [place] [address] Re08/06/18 SEX: F Status: ADM IN SPEC: [id number] LACEY: 08/05/18 [facility] DR: Dinora CURTIS REQ: [id number] RECD: 08/05/18 STATUS: DAVID CARDENAS DR: Carlos A Quevedo MD PC _ SOURCE: URINE SPDESC: ORDERED: Urine Culture Procedure Result Reported Site Urine Culture Final 08/07/18- 0840 ML Few Enterobacteriacae; possible contamination. * ML - Main Lab . END OF REPORT DEPARTMENT OF PATHOLOGY, [address] [place] [address] Brendon Nicole M.D. Director [facility] # [id number] Procedures Date Code Description Status 11/19/2018 22842 EKG Tracing & Interpretation Completed 11/03/2018 18577 Cardioversion Completed 09/25/201833667 Inject/Drain Joint/Bursa Major W/O US Completed 09/25/2018 Injection, Carpal Tunnel Completed 08/20/2018 76286 EKG Tracing & Interpretation Completed 08/18/2018 21846 Cardioversion Completed 08/06/2018 94093 EKG, Interpretation Only Completed 08/06/2018 29084 Moderate Sedation Services; Same Phys Intl 15 Mins; PT Completed >= 5 Years 08/06/2018 50433 Cardioversion Completed 07/25/2018 00595 EKG Tracing & Interpretation Completed 07/08/2018 36602 Secondary Closure Of Surgical Wound Or Dehiscence Completed Extensive Or Co 07/08/2018 35313 Secondary Closure Of Surgical Wound Or Dehiscence Completed Extensive Or Co 07/07/2018 43310 ECHO Transthorasic Realtime 2D W Doppler & Color Flow Completed Hosp 06/09/2018 41459 EKG, Interpretation Only Completed 06/09/2018 53050 Cardioversion Completed 05/30/2018 64953 EKG Tracing & Interpretation Completed 02/21/2018 [id number] Colonoscopy Completed 04/19/2009 [id number] Colonoscopy Completed Medical Devices Description No Information Available Encounters Type Date Location Provider Dx Diagnosis Office Visit 11/13/2018 [facility]ph[facility] Bob Hughesih, N18.4 Chronic kidney 10:00a MD disease, stage 4 (severe) I12.9 Hypertensive chronic kidney disease w stg 1-4/unsp chr kdny R60.0 Localized edema I48.0 Paroxysmal atrial fibrillation I50.33 Acute on chronic diastolic (congestive) heart failure D64.9 Anemia, unspecified Office Visit 11/03/2018 [facility] Kerline I48.91 Unspecified atrial 9:06a lo Murcia MD fibrillation Hospitalists M54.9 Dorsalgia, unspecified Office Visit 11/02/2018 [facility] Nicole Guerra, I48.91 Unspecified 9:06a lo Murcia M.D. 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 diastolic Hospitalists (congestive) heart failure I48.91 Unspecified atrial fibrillation E83.42 Hypomagnesemia Office Visit 08/06/2018 [facility] Nicole Guerra, I48.91 Unspecified 9:40a lo Murcia M.D. atrial Hospitalists fibrillation I50.33 Acute on chronic diastolic (congestive) heart failure D64.9 Anemia, unspecified N18.3 Chronic kidney disease, stage 3 (moderate) Office Visit 08/06/2018 2:28p [facility] Conchita Towns, I48.91 Unspecified atrial Cardiology Of Bess.Marcela fibrillation [facility] I25.10 Athscl heart disease of [place] coronary artery w/o ang pctrs E87.8 Oth disorders of electrolyte and fluid balance, NEC Office Visit 08/05/2018 [facility] Dinora I48.91 Unspecified 9:39a Assoc,lo Malik PA atrial Hospitalists fibrillation I50.9 Heart failure, unspecified R74.8 Abnormal levels of other serum enzymes E83.42 Hypomagnesemia E87.1 Hypo-osmolality and hyponatremia Office Visit 07/25/2018 11:45a [facility] Talib DCasey I25.10 Athscl heart Of Nathaniel Cisneros M.D. disease of [place] coronary artery w/o ang pctrs Z95.2 Presence of prosthetic heart valve I48.0 Paroxysmal atrial fibrillation Office Visit 07/16/2018 [facility] Vikki Christo, T81.49xA Infection 9:02a Assoc,lo EARL following a Hospitalists procedure, other surgical site, init J96.01 Acute respiratory failure with hypoxia I13.0 Hyp hrt & chr kdny dis w hrt fail and stg 1-4/unsp chr kdny N39.0 Urinary tract infection, site not specified B96.1 Klebsiella pneumoniae as the cause of diseases classd elswhr I47.2 Ventricular tachycardia I48.91 Unspecified atrial fibrillation R33.9 Retention of urine, unspecified Office Visit 07/15/2018 9:00a [facility] Vikki Christo, I13.0 Hyp hrt & chr Assoc,pc GAS OPERATIONS SUPERINTENDENT kdny dis w hrt Hospitalists fail and stg 1-4/unsp chr kdny N18.3 Chronic kidney disease, stage 3 (moderate) I47.2 Ventricular tachycardia I48.0 Paroxysmal atrial fibrillation Office Visit 07/14/2018 [facility] Nicole Guerra, I47.2 Ventricular 8:59a Asslo blunt M.D. tachycardia Hospitalists N18.3 Chronic kidney disease, stage 3 (moderate) I13.0 Hyp hrt & chr kdny dis w hrt fail and stg 1-4/unsp chr kdny Office Visit 07/14/2018 [facility] T81.41xD Infct fol a 5:52a For Infectious Edna, GAS OPERATIONS SUPERINTENDENT proc, superfic Diseases incisional surgical site, subs N39.0 Urinary tract infection, site not specified B96.1 Klebsiella pneumoniae as the cause of diseases classd elswhr N18.3 Chronic kidney disease, stage 3 (moderate) Office Visit 07/13/2018 [facility] Nicole Guerra, L02.91 Cutaneous 8:59a Assoclo M.D. abscess, Hospitalists unspecified R33.9 Retention of urine, unspecified I13.0 Hyp hrt & chr kdny dis w hrt fail and stg 1-4/unsp chr kdny N18.3 Chronic kidney disease, stage 3 (moderate) Office Visit 07/12/2018 [facility] Nicole Guerra, R33.9 Retention of 8:57a Asslo blunt M.D. urine, Hospitalists unspecified I13.0 Hyp hrt & chr kdny dis w hrt fail and stg 1-4/unsp chr kdny N18.3 Chronic kidney disease, stage 3 (moderate) I47.2 Ventricular tachycardia Office Visit 07/11/2018 8:56a [facility] Priti R33.9 Retention of Assoc,lo Keller, DO urine, Hospitalists unspecified L02.91 Cutaneous abscess, unspecified J96.01 Acute respiratory failure with hypoxia I13.0 Hyp hrt & chr kdny dis w hrt fail and stg 1-4/unsp chr kdny N18.3 Chronic kidney disease, stage 3 (moderate) Office Visit 07/11/2018 [facility] T81.41xD Infct fol a 7:56a For Infectious Edna, GAS OPERATIONS SUPERINTENDENT proc, superfic Diseases incisional surgical site, subs N39.0 Urinary tract infection, site not specified B96.1 Klebsiella pneumoniae as the cause of diseases classd elswhr N18.3 Chronic kidney disease, stage 3 (moderate) Office Visit 07/10/2018 8:55a [facility] Sugey I47.2 Ventricular Assoc,lo Blackburn, tachycardia Hospitalists GAS OPERATIONS SUPERINTENDENT N18.3 Chronic kidney disease, stage 3 (moderate) I50.33 Acute on chronic diastolic (congestive) heart failure R33.9 Retention of urine, unspecified Office Visit 07/09/2018 [facility] T81.41xD Infct fol a 7:53a For Infectious MADY Bishop proc, superfic Diseases incisional surgical site, subs D72.829 Elevated white blood cell count, unspecified N39.0 Urinary tract infection, site not specified B96.1 Klebsiella pneumoniae as the cause of diseases classd elswhr N18.3 Chronic kidney disease, stage 3 (moderate) Office Visit 07/08/2018 8:54a [facility] Sugey I47.2 Ventricular Assoc,lo Blackburn, tachycardia Hospitalists GAS OPERATIONS SUPERINTENDENT I50.33 Acute on chronic diastolic (congestive) heart failure I48.0 Paroxysmal atrial fibrillation N18.4 Chronic kidney disease, stage 4 (severe) Office Visit 07/08/2018 [facility] T81.41xA Infct fol a 7:48a For Infectious MADY Bishop proc, superfic Diseases incisional surgical site, init N39.0 Urinary tract infection, site not specified B96.1 Klebsiella pneumoniae as the cause of diseases classd elswhr N18.3 Chronic kidney disease, stage 3 (moderate) Z96.642 Presence of left artificial hip joint Office Visit 07/07/2018 8:53a [facility] Sugey I47.2 Ventricular Assoc,lo Blackburn, tachycardia Hospitalists GAS OPERATIONS SUPERINTENDENT I50.33 Acute on chronic diastolic (congestive) heart failure I48.0 Paroxysmal atrial fibrillation N18.4 Chronic kidney disease, stage 4 (severe) Office Visit 07/06/2018 8:53a [facility] Galo N17.9 Acute kidney Assoc,lo Cowan M.D. failure, Hospitalists unspecified I47.2 Ventricular tachycardia I11.0 Hypertensive heart disease with heart failure I50.33 Acute on chronic diastolic (congestive) heart failure I48.91 Unspecified atrial fibrillation Office Visit 07/05/2018 4:26p [facility] Carlos A Waters I47.2 Ventricular Of Nathaniel Luz M.D., tachycardia FACC, FASNC Z98.61 Coronary angioplasty status Z95.2 Presence of prosthetic heart valve Office Visit 07/05/2018 8:52a [facility] Galo N17.9 Acute kidney Asslo blunt M.D. failure, Hospitalists unspecified E87.1 Hypo-osmolality and hyponatremia I50.31 Acute diastolic (congestive) heart failure I11.0 Hypertensive heart disease with heart failure Office Visit 07/04/2018 [facility] Galo E87.1 Hypo-osmolality and 8:51a Assoclo M.D. hyponatremia Hospitalists N17.9 Acute kidney failure, unspecified I48.91 Unspecified atrial fibrillation Office Visit 07/03/2018 8:50a [facility] Charlette N17.9 Acute kidney Assoc,lo Weems DO failure, Hospitalists unspecified D72.829 Elevated white blood cell count, unspecified R53.1 Weakness R05 Cough Office Visit 07/03/2018 10:15a Orthopedic Aaron F S72.012D Unsp intracap Services Of MD Alex fx left femur, C.M.A. subs for clos fx w routn heal S52.514D Nondisp fx of r radial styloid pro, 7thD S46.011A Strain of musc/tend the rotator cuff of right shoulder, init Office Visit 06/10/2018 [facility] I48.91 Unspecified atrial 4:48p lo Murcia M.D. fibrillation Hospitalists E03.9 Hypothyroidism, unspecified D64.9 Anemia, unspecified Office Visit 06/09/2018 [facility] I48.91 Unspecified atrial 9:14a Asslo blunt M.D. 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 atrial Hospitalists fibrillation D63.1 Anemia in chronic kidney disease N18.3 Chronic kidney disease, stage 3 (moderate) Office Visit 06/06/2018 3:40p [facility] Jesus Alberto S. 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 fibrillation Office Visit 06/05/2018 10:28a [facility] Jesus Alberto S. 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 I48.91 Unspecified atrial Of Notch Machine Operator Foster, N.P. fibrillation I10 Essential (primary) hypertension R60.9 Edema, unspecified I50.32 Chronic diastolic (congestive) heart failure Office Visit 05/27/2018 1:00p Orthopedic Aaron F S72.012D Unsp intracap Services Of MD Alex fx left femur, C.M.A. subs for clos fx w routn heal S52.514D Nondisp fx of r radial styloid pro, 7thD Assessments Date Code Description Provider 11/19/2018 I48.0 Paroxysmal atrial fibrillation Talib Cisneros M.D. 11/19/2018 I50.33 Acute on chronic diastolic Talib Cisneros M.D. 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 08/20/2018 I25.10 Atherosclerotic heart disease of Talib Cisneros M.D. [place] coronary artery with 08/20/2018 I48.0 Paroxysmal atrial [...] Atherosclerotic heart disease of Conchita Thompson M.D. [place] coronary artery with 08/06/2018 D64.9 Anemia, unspecified [...] Atherosclerotic heart disease of Talib Cisneros M.D. [place] coronary artery with 07/25/2018 Z95.2 Presence of prosthetic heart valve Talib Cisneros M.D. 07/25/2018 I48.0 Paroxysmal atrial fibrillation Talib Cisneros M.D. 07/22/2018 T81.41xD Infection following a procedure, Aaron Johnson MD superficial incisional surg 07/22/2018 S72.012D Unspecified intracapsular fracture Aaron Johnson MD of left femur, subsequent 07/16/2018 T81.49xA Infection following a procedure, Vikki Christo, GAS OPERATIONS SUPERINTENDENT other surgical site, init 07/16/2018 J96.01 Acute respiratory failure with Vikki Christo, GAS OPERATIONS SUPERINTENDENT hypoxia 07/16/2018 I13.0 Hyp hrt & chr kdny dis w hrt fail Vikki Christo, GAS OPERATIONS SUPERINTENDENT and stg 1-4/unsp [facility] kdny 07/16/2018 N39.0 Urinary tract infection, site not Vikki Christo, GAS OPERATIONS SUPERINTENDENT specified 07/16/2018 B96.1 Klebsiella pneumoniae as the cause Vikki Christo, GAS OPERATIONS SUPERINTENDENT of diseases classd elswhr 07/16/2018 I47.2 Ventricular tachycardia Vikki Christo, GAS OPERATIONS SUPERINTENDENT 07/16/2018 I48.91 Unspecified atrial fibrillation Vikki Christo, GAS OPERATIONS SUPERINTENDENT 07/16/2018 R33.9 Retention of urine, unspecified Vikki Christo, GAS OPERATIONS SUPERINTENDENT 07/15/2018 I13.0 Hyp hrt & chr kdny dis w hrt fail Vikki Christo, GAS OPERATIONS SUPERINTENDENT and stg 1-4/unsp [facility] kdny 07/15/2018 N18.3 Chronic kidney disease, stage 3 Vikki Christo, GAS OPERATIONS SUPERINTENDENT (moderate) 07/15/2018 I47.2 Ventricular tachycardia Vikki Christo, GAS OPERATIONS SUPERINTENDENT 07/15/2018 I48.0 Paroxysmal atrial fibrillation Vikki Christo, GAS OPERATIONS SUPERINTENDENT 07/14/2018 T81.41xD Infection following a procedure, Erin [...] fail Nicole Guerra M.D. [facility] 07/13/2018 L02.91 Cutaneous abscess, unspecified Nicole Guerra M.D. 07/13/2018 R33.9 Retention of urine, unspecified Nicole Guerra M.D. 07/13/2018 I13.0 Hyp hrt & chr kdny dis w hrt fail Nicole Guerra M.D. and stg -/[facility] 07/13/2018 N18.3 Chronic kidney disease, stage 3 Nicole Guerra M.D. (moderate) 07/12/2018 T81.31xD Disruption of external operation Caroline Chatman RPA-C (surgical) wound, NEC, subs 07/12/2018 R33.9 Retention of urine, unspecified Nicole Guerra M.D. 07/12/2018 I13.0 Hyp hrt & chr kdny dis w hrt fail Nicole Guerra M.D. and stg -/[facility] 07/12/2018 N18.3 Chronic kidney disease, stage 3 [...] 07/11/2018 B96.1 Klebsiella pneumoniae as the cause rEin Bishop NP of diseases classd elswhr 07/11/2018 I13.0 Hyp hrt & chr kdny dis w hrt fail Priti Keller, DO and stg 1-4/unsp chr kdny 07/11/2018 N18.3 Chronic kidney disease, stage 3 Erin Bishop NP (moderate) 07/11/2018 N18.3 Chronic kidney disease, stage 3 Priti Keller, DO (moderate) 07/10/2018 T81.31xD Disruption of external [...] failure 07/06/2018 I50.33 Acute on chronic diastolic Glao Cowan M.D. (congestive) heart failure 07/06/2018 I48.91 Unspecified atrial fibrillation Galo Cowan M.D. 07/05/2018 T81.31xD Disruption of external operation Aaron Johnson MD (surgical) wound, NEC, subs 07/05/2018 N17.9 Acute kidney failure, unspecified Galo Cowan M.D. 07/05/2018 I47.2 Ventricular tachycardia Carlos A Luz M.D., [facility] 07/05/2018 E87.1 Hypo-osmolality and hyponatremia Galo Cowan M.D. 07/05/2018 Z98.61 Coronary angioplasty status Carlos A Luz M.D., [facility] 07/05/2018 I50.31 Acute diastolic (congestive) heart Galo Cowan M.D. failure 07/05/2018 Z95.2 Presence of prosthetic heart valve Carlos A Luz M.D., [place], FASNC 07/05/2018 I11.0 Hypertensive heart disease with Galo [...] Encounter for other specified Nemo Benjamin MD, [facility], aftercare [facility] 06/09/2018 I48.91 Unspecified atrial fibrillation Rubina [...] Atherosclerotic heart disease of Conchita Thompson M.D. [place] coronary artery with 06/08/2018 Z98.61 Coronary angioplasty [...] Atherosclerotic heart disease of Conchita Thompson M.D. [place] coronary artery with 06/07/2018 Z98.61 Coronary angioplasty status Conchita Thompson M.D. 06/06/2018 I48.91 Unspecified atrial fibrillation Nicole Guerra M.D. 06/06/2018 I48.0 Paroxysmal atrial fibrillation Jesus Alberto Sherman DO [facility] 06/06/2018 D63.1 Anemia in chronic kidney disease Nicole Guerra M.D. 06/06/2018 Z95.2 Presence of prosthetic heart valve Jesus Alberto Sherman DO FAC 06/06/2018 N18.3 Chronic kidney disease, stage 3 Nicole Guerra M.D. (moderate) 06/06/2018 I25.2 Old myocardial infarction Jesus Alberto Sherman, DO FACC 06/06/2018 I25.10 Atherosclerotic heart disease of Jesus Alberto Sherman, DO [facility] [place] coronary artery with 06/06/2018 Z98.61 Coronary angioplasty status Jesus Alberto Sherman, DO FACC 06/05/2018 I48.0 Paroxysmal atrial fibrillation Dannie Sherman M.D. 06/05/2018 I48.0 Paroxysmal atrial fibrillation Jesus Alberto Sherman, DO FAC 06/05/2018 Z95.2 Presence of prosthetic heart valve Jesus Alberto Sherman, DO FACC 06/05/2018 I25.2 Old myocardial infarction Jesus Alberto Sherman, DO FACC 06/05/2018 I25.10 Atherosclerotic heart disease of Jesus Alberto Sherman, DO [facility] [place] coronary artery with 06/05/2018 Z98.61 Coronary angioplasty status Jesus Alberto Sherman, DO [facility] 05/30/2018 I48.91 Unspecified atrial fibrillation Talib Cisneros M.D. 05/30/2018 I48.91 Unspecified atrial fibrillation Ashley S. Foster, N.P. 05/30/2018 I10 Essential (primary) hypertension Ashley S. Foster, N.P. 05/30/2018 R60.9 Edema, unspecified Ashley S. Foster, N.P. 05/30/2018 I50.32 Chronic diastolic (congestive) heart Ashley S. Foster, N.P. failure 05/27/2018 S72.012D Unspecified intracapsular fracture Aaron Johnson MD of left femur, subsequent 05/27/2018 S52.514D Nondisp fx of r radial styloid pro, Aaron Johnson MD 7thD Plan of Treatment Future Appointment(s):11/27/2018 1:00 pm - Bob Yang MD at [facility]38/17/2019 10:15 am - Aaron Johnson MD at [facility].11/19/2018 - Talib Cisneros M.D.I48.0 Paroxysmal atrial fibrillationFollow up:4 btpwfeJ28.33 Acute on chronic diastolic (congestive) heart oyacsvdG28.10 Atherosclerotic heart disease of [place] coronary artery withZ95.2 Presence of prosthetic heart valve Functional Status Description No Information Available Mental Status Description No Information Available Referrals Description No Information Available
--- OUTSIDE RECORDS SUMMARY | 2019-01-02 10:46 | XMS REPORT | Continuity of Care Document ---
:1930 External Reference #:[id number] Author Name Aaron Johnson MD (transmitted by agent of provider Miguel Stearns) Address [address] [place] [address] Care Team Providers Name Role Phone Susy Quevedo MD - Internal Care Team Information Process Developer Medicine Sahil Pang MD - Internal Care Team Information Process Developer [phone] Medicine Problems Active Problems Provider Date Aortic [...] Patient has never smoked Smoking Status Reviewed: 11/25/18 Patient has never smoked Exercise Type/Frequency Exercises [...] 1 tablet po twice 60tabs Unknown daily [id number] Tablets Colace 1 po tid 180caps Unknown 100mg Capsules Folic Acid 1 po qd 90tabs Unknown 1mg Tablets Ferrous Sulfate 1 po qd 30tabs Unknown 325(65Fe) mg Tablets One Daily For Women 1 po qd Unknown 50+A Dvanced Women 50 Tablets Aspirin 1 po qd Unknown 81mg Tablets Furosemide 1 tablet po daily Stevanovic, 40mg Tablets morning ( MD Susy discharge 07/16/18 [facility] [place]) History Medications Spironolactone 1/2 tab by Unknown [...] Available Vital Signs Date Vital Result Comment 11/25/2018 10:21am Height 66 inches 5'6" Weight 196.00 lb Heart Rate 55 /min Respiratory Rate 16 /min Pain Level 6 BMI (Body Mass Index) 31.6 kg/m2 11/19/2018 10:40am Height 66 inches 5'6" Weight 198.00 lb with shoes BP Systolic Sitting 124 mmHg Lue lg cuff BP Diastolic Sitting 70 mmHg Lue lg cuff BP Systolic Standing 122 mmHg Lue lg cuff BP Diastolic Standing 66 mmHg Lue lg cuff BMI (Body Mass Index) 32.0 kg/m2 Ejection Fraction 55-60% date 07/07/18 ECHO Results Test Date Facility Test Result H/L Range Note Neph Routine 11/20/2018 [facility] Total Protein 6 mg/dL [address] [place] [address] [phone] Creatinine Random Urine 19.84 mg/dL CBC Auto 11/20/2018 [facility] White Blood 5.4 10^3/uL Normal 3.5-10.[address] Count [place], [place] [id number] [phone] Red Blood Count 3.23 10^6/uL Low 3.70-4.87 [...] Blood Cells % 0.0 Urinalysis Profile 11/20/2018 [facility] Urine Color Yellow [address] [place] [address] [phone] Urine Appearance Cloudy Urine Specific [place] 1.005 Low 1.010-1.030 Urine pH 7.0 Normal 5-9 Urine Urobilinogen Negative Negative Urine Ketones Negative Negative Urine Protein Negative Negative Urine Leukocytes Negative Negative Urine Blood Negative Negative Urine Nitrite Negative Negative Urine Bilirubin Negative Negative Urine Glucose Negative Negative Basic Metabolic 11/20/2018 [facility] Sodium 140 mmol/L Normal 135-[address] [place] [address] [phone] Potassium 4.1 mmol/L Normal 3.5-5.0 Chloride 102 mmol/L Normal 101-111 Co2 Carbon Dioxide 31 mmol/L Normal 22-32 Anion Gap 7 mmol/L Normal 2-11 Glucose 89 mg/dL Normal 70-100 Blood Urea Nitrogen 22 mg/dL Normal 6-24 Creatinine 1.67 mg/dL High 0.51-0.95 BUN/Creatinine Ratio 13.2 Normal 8-20 Calcium 9.1 mg/dL Normal 8.6-10.3 Egfr Non- 29.0 >60 Egfr 35.0 >60 1 Protein 11/20/2018 [facility] Total 6.5 g/dL 6.3 - Electrophoresis [address] Protein(Pep) 7.9 [place] [address] [phone] Albumin 3.4 g/dL 3.4-4.7 Alpha-1 Globulin 0.3 g/dL 0.1-0.3 Alpha-2 Globulin 1.0 g/dL 0.6-1.0 Beta Globulin 1.0 g/dL 0.7-1.2 Gamma Globulin 0.9 g/dL 0.6-1.6 Albumin/Globulin Ratio 1.13 Impression See Comment 2 [place]/Lambda Free 11/20/2018 [facility] [place] Free 6.31 mg/dL Abnormal [address] [place] [address] [phone] Lambda Free Light Chain 2.74 mg/dL Abnormal 4 [place]/Lambda Free Light Chain 2.30 Abnormal 5 Laboratory test 11/20/2018 [facility] TSH (Thyroid 7.09 High 0.34-5.[address] Stim Horm) mcIU/[place] [address] [phone] T3 Free 2.30 pg/mL Low 2.5-3.9 Free T4 (Free Thyroxine) 1.16 ng/dL High 0.61-1.12 T3 Total 51 ng/dL Low 87-178 Thyroperoxidase AB 0.20 IU/mL Normal <9 Thyroglobulin AB 0.0 IU/mL <4.0 Laboratory test 08/18/2018 [facility] Magnesium 1.8 mg/dL Low 1.9-2.7 [place] [address] [phone] Troponin-I (TnI) 0.01 ng/mL <0.04 6 TSH (Thyroid Stim Horm) 4.36 mcIU/mL Normal 0.34-5.60 Free T4 (Free Thyroxine) 1.16 ng/dL High 0.61-1.12 Comp Metabolic Panel 08/18/2018 [facility] Sodium 134 mmol/L Low 135-145 [place] [address] [phone] Potassium 3.6 mmol/L Normal 3.5-5.0 Chloride 98 [...] >60 Egfr 34.9 >60 7 Inr/Protime 08/18/2018 [facility] Inr 1.85 High 0.82-1.[address] [place] [address] [phone] CBC Auto Diff 08/18/2018 [facility] White Blood 7.5 Normal 3.5 -10.[address] Count 10^3/[place] [address] [phone] Red Blood Count 2.96 10^6/uL Low 3.70-4.87 [...] Blood Cells % 0.0 Laboratory test 08/18/2018 [facility] Troponin-I (TnI) 0.01 ng/ mL <0.04 9 finding [address] [place] [address] [phone] Laboratory test 08/18/2018 [facility] Troponin-I (TnI) 0.01 ng/ mL <0.04 10 finding [address] [place] [address] [phone] Urinalysis 08/05/2018 [facility] Urine Color Yellow Profile [address] [place] [address] [phone] Urine Appearance Clear Urine Specific [place] 1.005 Low 1.010-1.030 Urine pH 6.0 Normal 5-9 Urine Urobilinogen Negative Negative Urine Ketones Negative Negative Urine Protein Negative Negative Urine Leukocytes 1+ Abnormal Negative Urine Blood Negative Negative Urine Nitrite Negative Negative Urine Bilirubin Negative Negative Urine Glucose Negative Negative Urine White Blood Cell Trace(0-5/hpf) Absent Urine Red Blood Cell Absent Absent Urine Bacteria Absent Absent Urine Culture And 08/05/2018 [facility] Urine Culture SEE RESULT [address] [place] [address] [phone] 1 Because ethnic data is not always [...] protein on serum electrophoresis. Test Performed by: [facility] [address] [place] [address] Drywall Application Supervisor: Mick Covington M.D. Ph.D.; CLIA# [id number] 3 REFERENCE VALUE 0.3300-1.94 4 REFERENCE VALUE 0.5700-2.63 5 Elevated free light chain ratios between 1.66 and 3.00 may occur due to polyclonal hypergammaglobulinemia or impaired renal clearance. An isolated increased free light chain ratio in this range should be interpreted with caution, and clinical correlation is recommended. REFERENCE VALUE 0.2600-1.65 Test Performed by: [facility] [address] [place] [address] [employer]wall Application Supervisor: Mick Covington M.D. Ph.D.; CLIA# [id number] 6 Troponin-I testing on Plasma Separator Tubes (PST) has a known false positive rate of 0.20-0.40%. All positive troponins reflex immediately to secondary confirmatory testing. Using the [employer] DxI 800 Access Immunoassay systems, the 99th [...] immediately to secondary confirmatory testing. Using the [employer] DxI 800 Access Immunoassay systems, the 99th percentile upper reference limit was demonstrated to be < 0.03 ng/mL. 10 Troponin-I testing on Plasma Separator Tubes (PST) has a known false positive rate of 0.20-0.40%. All positive troponins reflex immediately to secondary confirmatory testing. Using the [employer] DxI 800 Access Immunoassay systems, the 99th percentile upper reference limit was demonstrated to be < 0.03 ng/mL. 11 SEE RESULT BELOW Name: VERONICA BHAT : [address]: Nicole Guerra MD Acct: [id number] Unit: [id number] AGE: 87 Location: [place] [address] Re08/06/18 SEX: F Status: ADM IN SPEC: [id number] LACEY: 08/05/[address]: Dinora CURTIS REQ: [id number] RECD: 08/05/18 STATUS: DAVID CARDENAS DR: Carlos A Quevedo MD PC _ SOURCE: URINE SPDESC: ORDERED: Urine Culture Procedure Result Reported Site Urine Culture Final 08/07/18- 0840 ML Few Enterobacteriacae; possible contamination. * [facility] - Main Lab . END OF REPORT DEPARTMENT OF PATHOLOGY, [address] [place] [address] Brendon Nicole M.D. Director [facility] # [id number] Procedures Date Code Description Status 11/19/2018 87297 EKG Tracing & Interpretation Completed 11/03/2018 19058 Cardioversion Completed 09/25/201818498 Inject/Drain Joint/Bursa Major W/O US Completed 09/25/2018 Injection, Carpal Tunnel Completed 08/20/2018 19468 EKG Tracing & Interpretation Completed 08/18/2018 63760 Cardioversion Completed 08/06/2018 32865 Moderate Sedation Services; Same Phys Intl 15 Mins; PT Completed >= 5 Years 08/06/2018 55150 EKG, Interpretation Only Completed 08/06/2018 48484 Cardioversion Completed 07/25/2018 58840 EKG Tracing & Interpretation Completed 07/08/2018 60927 Secondary Closure Of Surgical Wound Or Dehiscence Completed Extensive Or Co 07/08/2018 05641 Secondary Closure Of Surgical Wound Or Dehiscence Completed Extensive Or Co 07/07/2018 52049 ECHO Transthorasic Realtime 2D W Doppler & Color Flow Completed Hosp 06/09/2018 86594 EKG, Interpretation Only Completed 06/09/2018 95920 Cardioversion Completed 05/30/2018 35712 EKG Tracing & Interpretation Completed 02/21/2018 16992615 Colonoscopy Completed 04/19/2009 60939469 Colonoscopy Completed Medical Devices Description No Information Available Encounters Type Date Location Provider Dx Diagnosis Office Visit 11/19/2018 [facility] Talib D. I48.0 Paroxysmal atrial 10:45a Of Nathaniel Cisneros M.D. 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 N18.4 Chronic kidney MD eClia disease, stage 4 (severe) I12.9 Hypertensive chronic kidney disease w stg 1-4/unsp chr kdny R60.0 Localized edema I48.0 Paroxysmal atrial fibrillation I50.33 Acute on chronic diastolic (congestive) heart failure D64.9 Anemia, unspecified Office Visit 11/03/2018 [facility] Kerline I48.91 Unspecified atrial 9:06a lo Murcia MD fibrillation Hospitalists M54.9 Dorsalgia, unspecified Office Visit 11/02/2018 [facility] Nicole Guerra, I48.91 Unspecified 9:06a lo Murcia [...] w routn heal Office Visit 08/20/2018 3:15p [facility] Talib Medrano Z95.2 Presence of Of Nathaniel Cisneros M.D. 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 diastolic Hospitalists (congestive) heart failure I48.91 Unspecified atrial fibrillation E83.42 Hypomagnesemia Office Visit 08/06/2018 [facility] Nicole Guerra, I48.91 Unspecified 9:40a lo Murcia M.D. atrial Hospitalists fibrillation I50.33 Acute on chronic diastolic (congestive) heart failure D64.9 Anemia, unspecified N18.3 Chronic kidney disease, stage 3 (moderate) Office Visit 08/06/2018 2:28p [facility] Conchita Paintinger, I48.91 Unspecified atrial Cardiology Of M.D. 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 I25.10 Athscl heart Of Nathaniel Cisneros, Chuck. disease of ione coronary artery w/o ang pctrs Z95.2 Presence of prosthetic heart valve I48.0 Paroxysmal atrial fibrillation Office Visit 07/16/2018 [facility] Vikki Christo, T81.49xA Infection 9:02a Assoc,pc [employer] following a Hospitalists procedure, other surgical site, init J96.01 Acute respiratory failure with hypoxia I13.0 Hyp hrt & chr kdny dis w hrt fail and stg 1-4/unsp chr kdny N39.0 Urinary tract infection, site not specified B96.1 Klebsiella pneumoniae as the cause of diseases classd elswhr I47.2 Ventricular tachycardia I48.91 Unspecified atrial fibrillation R33.9 Retention of urine, unspecified Office Visit 07/15/2018 9:00a [facility] Vikki Christo, I13.0 Hyp hrt & chr Assoc,pc [employer] kdny dis w hrt Hospitalists fail and stg 1-4/unsp chr kdny N18.3 Chronic kidney disease, stage 3 (moderate) I47.2 Ventricular tachycardia I48.0 Paroxysmal atrial fibrillation Office Visit 07/14/2018 [facility] Nicolenicolasa Guerra, I47.2 Ventricular 8:59a Assoclo M.D. tachycardia Hospitalists N18.3 Chronic kidney disease, stage 3 (moderate) I13.0 Hyp hrt & chr kdny dis w hrt fail and stg 1-4/unsp chr kdny Office Visit 07/14/2018 [facility] T81.41xD Infct fol a 5:52a For Infectious Edna, [employer] proc, superfic Diseases incisional surgical site, subs N39.0 Urinary tract infection, site not specified B96.1 Klebsiella pneumoniae as the cause of diseases classd elswhr N18.3 Chronic kidney disease, stage 3 (moderate) Office Visit 07/13/2018 [facility] Nicole Guerra, L02.91 Cutaneous 8:59a Asslo blunt M.D. abscess, Hospitalists unspecified R33.9 Retention of urine, unspecified I13.0 Hyp hrt & chr kdny dis w hrt fail and stg 1-4/unsp chr kdny N18.3 Chronic kidney disease, stage 3 (moderate) Office Visit 07/12/2018 [facility] Nicole Guerra, R33.9 Retention of 8:57a Asslo blunt M.D. urine, Hospitalists unspecified I13.0 Hyp hrt & chr kdny dis w hrt fail and stg 1-4/unsp chr kdny N18.3 Chronic kidney disease, stage 3 (moderate) I47.2 Ventricular tachycardia Office Visit 07/11/2018 8:56a [facility] Priti R33.9 Retention of Assoc,lo Keller, DO urine, Hospitalists unspecified L02.91 Cutaneous abscess, unspecified J96.01 Acute respiratory failure with hypoxia I13.0 Hyp hrt & chr kdny dis w hrt fail and stg 1-4/unsp chr kdny N18.3 Chronic kidney disease, stage 3 (moderate) Office Visit 07/11/2018 [facility] T81.41xD Infct fol a 7:56a For Infectious Edna [employer] proc, superfic Diseases incisional surgical site, subs N39.0 Urinary tract infection, site not specified B96.1 Klebsiella pneumoniae as the cause of diseases classd elswhr N18.3 Chronic kidney disease, stage 3 (moderate) Office Visit 07/10/2018 8:55a [facility] Sugey I47.2 Ventricular Assoc,lo Blackburn, tachycardia Hospitalists [employer] N18.3 Chronic kidney disease, stage 3 (moderate) I50.33 Acute on chronic diastolic (congestive) heart failure R33.9 Retention of urine, unspecified Office Visit 07/09/2018 [facility] T81.41xD Infct fol a 7:53a For Infectious MADY Bishop proc, superfic Diseases incisional surgical site, subs D72.829 Elevated white blood cell count, unspecified N39.0 Urinary tract infection, site not specified B96.1 Klebsiella pneumoniae as the cause of diseases classd elswhr N18.3 Chronic kidney disease, stage 3 (moderate) Office Visit 07/08/2018 8:54a [facility] I47.2 Ventricular Assoc,lo Blackburn, tachycardia Hospitalists [employer] I50.33 Acute on chronic diastolic (congestive) heart failure I48.0 Paroxysmal atrial fibrillation N18.4 Chronic kidney disease, stage 4 (severe) Office Visit 07/08/2018 [facility] T81.41xA Infct fol a 7:48a For Infectious MADY Bishop proc, superfic Diseases incisional surgical site, init N39.0 Urinary tract infection, site not specified B96.1 Klebsiella pneumoniae as the cause of diseases classd elswhr N18.3 Chronic kidney disease, stage 3 (moderate) Z96.642 Presence of left artificial hip joint Office Visit 07/07/2018 8:53a [facility] Sugey I47.2 Ventricular Assoc,lo Blackburn, tachycardia Hospitalists [employer] I50.33 Acute on chronic diastolic (congestive) heart failure I48.0 Paroxysmal atrial fibrillation N18.4 Chronic kidney disease, stage 4 (severe) Office Visit 07/06/2018 8:53a [facility] Galo N17.9 Acute kidney Assoc,lo Cowan M.D. failure, Hospitalists unspecified I47.2 Ventricular tachycardia I11.0 Hypertensive heart disease with heart failure I50.33 Acute on chronic diastolic (congestive) heart failure I48.91 Unspecified atrial fibrillation Office Visit 07/05/2018 4:26p [facility] Carlos A Waters I47.2 Ventricular Of Nathaniel Luz M.D., tachycardia FACC, FASNC Z98.61 Coronary angioplasty status Z95.2 Presence of prosthetic heart valve Office Visit 07/05/2018 8:52a [facility] Galo N17.9 Acute kidney Assoclo M.D. failure, Hospitalists unspecified E87.1 Hypo-osmolality and hyponatremia I50.31 Acute diastolic (congestive) heart failure I11.0 Hypertensive heart disease with heart failure Office Visit 07/04/2018 [facility] Galo E87.1 Hypo-osmolality and 8:51a Assoc,lo Cowan M.D. hyponatremia Hospitalists N17.9 Acute kidney failure, unspecified I48.91 Unspecified atrial fibrillation Office Visit 07/03/2018 8:50a [facility] Charlette N17.9 Acute kidney Assoc,lo Weems, [...] of right shoulder, init Office Visit 06/10/2018 [facility] [place] I48.91 Unspecified atrial 4:48p lo Murcia M.D. fibrillation Hospitalists E03.9 Hypothyroidism, unspecified D64.9 Anemia, unspecified Office Visit 06/09/2018 [facility] [place] I48.91 Unspecified atrial 9:14a Asslo blunt M.D. fibrillation Hospitalists E03.9 Hypothyroidism, unspecified D64.9 Anemia, unspecified Office Visit 06/08/2018 1:34p [facility] Conchita Thompson, I48.0 Paroxysmal atrial Of [facility] Assistant M.D. 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 atrial Hospitalists fibrillation D63.1 Anemia in chronic kidney disease N18.3 Chronic kidney disease, stage 3 (moderate) Office Visit 06/06/2018 3:40p [facility] Jesus Alberto S. 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 fibrillation Office Visit 06/05/2018 10:28a [facility] Jesus Alberto S. 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 I48.91 Unspecified atrial Of Contact [facility] Assistant Foster, N.P. fibrillation I10 Essential (primary) hypertension R60.9 Edema, unspecified I50.32 Chronic diastolic (congestive) heart failure Office Visit 05/27/2018 1:00p Orthopedic Aaron F S72.012D Unsp intracap Services Of MD Alex fx left femur, C.M.A. subs for clos fx w routn heal S52.514D Nondisp fx of r radial styloid pro, 7thD Assessments Date Code Description Provider 11/25/2018 G56.01 Carpal tunnel syndrome, right upper [...] Atherosclerotic heart disease of Talib Cisneros M.D. ione coronary artery with 11/19/2018 Z95.2 Presence of [...] Atherosclerotic heart disease of Talib Cisneros M.D. ione coronary artery with 08/20/2018 I48.0 Paroxysmal atrial [...] Atherosclerotic heart disease of Conchita Thompson M.D. ione coronary artery with 08/06/2018 D64.9 Anemia, unspecified [...] Atherosclerotic heart disease of Talib Cisneros M.D. ione coronary artery with 07/25/2018 Z95.2 Presence of prosthetic heart valve Talib Cisneros M.D. 07/25/2018 I48.0 Paroxysmal atrial fibrillation Talib Cisneros M.D. 07/22/2018 T81.41xD Infection following a procedure, Aaron Johnson MD superficial incisional surg 07/22/2018 S72.012D Unspecified intracapsular fracture Aaron Johnson MD of left femur, subsequent 07/16/2018 T81.49xA Infection following a procedure, Vikki Christo, [employer] other surgical site, init 07/16/2018 J96.01 Acute respiratory failure with Vikki Christo, [employer] hypoxia 07/16/2018 I13.0 Hyp hrt & chr kdny dis w hrt fail Vikki Christo, [employer] and stg 1-4/unsp chr kdny 07/16/2018 N39.0 Urinary tract infection, site not Vikki Christo, [employer] specified 07/16/2018 B96.1 Klebsiella pneumoniae as the cause Vikki Christo, [employer] of diseases classd elswhr 07/16/2018 I47.2 Ventricular tachycardia Vikki Christo, [employer] 07/16/2018 I48.91 Unspecified atrial fibrillation Vikki Christo, [employer] 07/16/2018 R33.9 Retention of urine, unspecified Vikki Christo, [employer] 07/15/2018 I13.0 Hyp hrt & chr kdny dis w hrt fail Vikki Christo, [employer] and stg 1-4/unsp chr kdny 07/15/2018 N18.3 Chronic kidney disease, stage 3 Vikki Christo, [employer] (moderate) 07/15/2018 I47.2 Ventricular tachycardia Vikki Christo, [employer] 07/15/2018 I48.0 Paroxysmal atrial fibrillation Vikki Christo, [employer] 07/14/2018 T81.41xD Infection following a procedure, Erin Bishop NP superficial incisional surg 07/14/2018 T81.31xD Disruption of external operation KIRSTEN Sutton (surgical) wound, not elsew 07/14/2018 N39.0 Urinary tract infection, site not Erin Bishop , MADY specified 07/14/2018 I47.2 Ventricular tachycardia Nicole Guerra M.D. 07/14/2018 B96.1 Klebsiella pneumoniae as the cause Erin Bishop NP of diseases classd elswhr 07/14/2018 N18.3 Chronic kidney disease, stage 3 Nicole Guerra M.D. (moderate) 07/14/2018 N18.3 Chronic kidney disease, stage 3 Erin Bishop NP (moderate) 07/14/2018 I13.0 Hyp hrt & chr kdny dis w hrt fail Nicole Guerra M.D. and stg 1-4/unsp [facility] kdny 07/13/2018 L02.91 Cutaneous abscess, unspecified Nicole Guerra M.D. 07/13/2018 R33.9 Retention of urine, unspecified Nicole Guerra M.D. 07/13/2018 I13.0 Hyp hrt & chr kdny dis w hrt fail Nicole Guerra M.D. and stg 1-4/unsp [facility] kdny 07/13/2018 N18.3 Chronic kidney disease, stage 3 Nicole Guerra M.D. (moderate) 07/12/2018 T81.31xD Disruption of external operation MILLY DíazC (surgical) wound, NEC, subs 07/12/2018 R33.9 Retention of urine, unspecified Nicole Guerra M.D. 07/12/2018 I13.0 Hyp hrt & chr kdny dis w hrt fail Nicole Guerra M.D. and stg 1-4/unsp [facility] kdny 07/12/2018 N18.3 Chronic kidney disease, stage 3 Nicole Guerra M.D. (moderate) 07/12/2018 I47.2 Ventricular tachycardia Nicole Guerra M.D. 07/11/2018 T81.31xD Disruption of external operation Lucie Mora RPA-Beth (surgical) wound, NEC, subs 07/11/2018 R33.9 Retention of urine, unspecified Priti Keller, DO 07/11/2018 T81.41xD Infct fol a proc, superfic Erin Bishop NP incisional surgical site, subs 07/11/2018 L02.91 Cutaneous abscess, unspecified Priti Keller, DO 07/11/2018 N39.0 Urinary tract infection, site not Erin Bishop NP specified 07/11/2018 J96.01 Acute respiratory failure with Priti Keller, hypoxia 07/11/2018 B96.1 Klebsiella pneumoniae as the cause Erin Bishop NP of diseases classd elswhr 07/11/2018 I13.0 Hyp hrt & chr kdny dis w hrt fail Priti Keller DO and stg 1-4/unsp [facility] kdny 07/11/2018 N18.3 Chronic kidney disease, stage 3 Erin Bishop NP (moderate) 07/11/2018 N18.3 Chronic kidney disease, stage 3 Priti Keller DO (moderate) 07/10/2018 T81.31xD Disruption of external [...] w routn heal 07/08/2018 I47.2 Ventricular tachycardia Sugye Blackburn NP 07/08/2018 T81.41xD Infct fol a proc, KIRSTEN Bojorquez incisional surgical site, subs 07/08/2018 I50.33 Acute on chronic diastolic Sugey Blackburn NP (congestive) heart failure 07/08/2018 T81.41xA Infct fol a proc, gregic Erin Bishop NP incisional surgical site, init 07/08/2018 I48.0 Paroxysmal atrial fibrillation Sugey Blackburn NP 07/08/2018 Z47.1 Aftercare following joint KIRSTEN Sutton replacement surgery 07/08/2018 N18.4 Chronic kidney disease, stage 4 Sugey Blackburn NP (severe) 07/08/2018 N39.0 Urinary tract infection, site not Erin Bishop NP specified 07/08/2018 Z96.642 Presence of left artificial hip KIRSTEN Sutton joint 07/08/2018 B96.1 Klebsiella pneumoniae as the cause Erin Bishop NP of diseases classd elswhr 07/08/2018 N18.3 Chronic kidney disease, stage 3 Erin Soliz MADY Bishop (moderate) 07/08/2018 Z96.642 Presence of left artificial hip Erin Bishop MADY joint 07/07/2018 I47.2 Ventricular tachycardia Sugey Blackburn NP 07/07/2018 T81.31xA Disruption of external operation KIRSTEN Sutton (surgical) wound, NEC, init 07/07/2018 I50.33 Acute on chronic diastolic Sugey Blackburn MADY (congestive) heart failure 07/07/2018 Z47.1 Aftercare following joint KIRSTEN Sutton replacement surgery 07/07/2018 I48.0 Paroxysmal atrial fibrillation Sugey Blackburn [facility] 07/07/2018 R94.31 Abnormal electrocardiogram [ECG] Talib Cisneros M.D. [EKG] 07/07/2018 N18.4 Chronic kidney disease, stage 4 Sugey BlackburnMADY (severe) 07/07/2018 Z96.641 Presence of right artificial [...] I47.2 Ventricular tachycardia Carlos A Luz M.D., [facility], [facility] 07/05/2018 E87.1 Hypo-osmolality and hyponatremia Galo Cowan M.D. 07/05/2018 Z98.61 Coronary angioplasty status Carlos A Waters Luz, M.D., [facility], [facility] 07/05/2018 I50.31 Acute diastolic (congestive) heart Galo Cowan M.D. 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 06/06/2018 I48.91 Unspecified atrial fibrillation Nicole Guerra M.D. 06/06/2018 I48.0 Paroxysmal atrial fibrillation Jesus Alberto Sherman, [facility] 06/06/2018 D63.1 Anemia in chronic kidney disease Nicole Guerra M.D. 06/06/2018 Z95.2 Presence of prosthetic heart valve Jesus Alberto Sherman, DO [facility] 06/06/2018 N18.3 Chronic kidney disease, stage 3 Nicole Guerra M.D. 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 06/05/2018 I48.0 Paroxysmal atrial fibrillation Jesus Alberto Sherman, DO [facility] 06/05/2018 Z95.2 Presence of prosthetic heart valve Jesus Alberto Sherman, DO [facility]AC 06/05/2018 I25.2 Old myocardial infarction Jesus Alberto Sherman, DO [facility] 06/05/2018 I25.10 Atherosclerotic heart disease of Jesus Alberto Sherman, DO FAC ione coronary artery with 06/05/2018 Z98.61 Coronary angioplasty status Jesus Alberto Sherman, DO [facility] 05/30/2018 I48.91 Unspecified atrial fibrillation Talib Cisneros M.D. 05/30/2018 I48.91 Unspecified atrial fibrillation Ashley Martinez, N.P. 05/30/2018 I10 Essential (primary) hypertension Ashley S. Juan, N.P. 05/30/2018 R60.9 Edema, unspecified Ashley S. Foster, N.P. 05/30/2018 I50.32 Chronic diastolic (congestive) heart Ashley SCasey Martinez, N.P. failure 05/27/2018 S72.012D Unspecified intracapsular fracture Aaron Johnson MD of left femur, subsequent 05/27/2018 S52.514D Nondisp fx of r radial styloid pro, Aaron Johnson MD 7thD Plan of Treatment Future Appointment(s):12/25/2018 2:45 pm - [place] [facility] [place] 1:00 pm - Bob Yang [facility] at [facility] Tjlfpbojjv09/17/2019 - Aaron Johnson MDG56.01 Carpal tunnel syndrome, right upper limbFollow up:Follow up: to ORM19.011 Primary osteoarthritis, right ynjcctwsC85.011A Strain of muscle(s) and tendon(s) of the rotator cuff of rig Functional Status Description No Information Available Mental Status Description No Information Available Referrals Description No Information Available
--- OUTSIDE RECORDS SUMMARY | 2019-01-02 10:46 | XMS REPORT | Continuity of Care Document ---
:1930 External Reference #:[id number] Author Name Aaron Johnson MD (transmitted by agent of provider Isaura Sanders) Address [address] [place] [address] Care Team Providers Name Role Phone Susy Quevedo MD - Internal Care Team Information Practical Nursing Instructor Medicine Sahil Pang MD - Internal Care Team Information Practical Nursing Instructor Medicine Problems Active Problems Provider Date Aortic [...] 1 tablet po twice 60tabs Unknown daily [id number] Tablets Colace 1 po tid 180caps Unknown [...] Result H/L Range Note Neph Routine 11/20/2018 [facility] Total Protein 6 mg/dL [address] [place] [address] [phone] Creatinine Random Urine 19.84 mg/dL CBC Auto 11/20/2018 [facility] White Blood 5.4 10^3/uL Normal 3.5-10.[address] [place] [address] [phone] Red Blood Count 3.23 10^6/uL Low 3.70-4.87 [...] Blood Cells % 0.0 Urinalysis Profile 11/20/2018 [facility] Urine Color Yellow [address] [place] [address] [phone] Urine Appearance Cloudy Urine Specific [place] 1.005 Low 1.010-1.030 Urine pH 7.0 Normal 5-9 Urine Urobilinogen Negative Negative Urine Ketones Negative Negative Urine Protein Negative Negative Urine Leukocytes Negative Negative Urine Blood Negative Negative Urine Nitrite Negative Negative Urine Bilirubin Negative Negative Urine Glucose Negative Negative Basic Metabolic 11/20/2018 [facility] Sodium 140 mmol/L Normal 135-[address] [place] [address] [phone] Potassium 4.1 mmol/L Normal 3.5-5.0 Chloride 102 mmol/L Normal 101-111 Co2 Carbon Dioxide 31 mmol/L Normal 22-32 Anion Gap 7 mmol/L Normal 2-11 Glucose 89 mg/dL Normal 70-100 Blood Urea Nitrogen 22 mg/dL Normal 6-24 Creatinine 1.67 mg/dL High 0.51-0.95 BUN/Creatinine Ratio 13.2 Normal 8-20 Calcium 9.1 mg/dL Normal 8.6-10.3 Egfr Non- 29.0 >60 Egfr 35.0 >60 1 Protein 11/20/2018 [facility] Total 6.5 g/dL 6.3 - Electrophoresis Protein(Pep) 7.9 [place] [address] [phone] Albumin 3.4 g/dL 3.4-4.7 Alpha-1 Globulin 0.3 g/dL 0.1-0.3 Alpha-2 Globulin 1.0 g/dL 0.6-1.0 Beta Globulin 1.0 g/dL 0.7-1.2 Gamma Globulin 0.9 g/dL 0.6-1.6 Albumin/Globulin Ratio 1.13 Impression See Comment 2 Mills/Lambda Free 11/20/2018 [facility] Mills Free 6.31 mg/dL Abnormal 3 Light Chains Ser [address] [place] [address] [phone] Lambda Free Light Chain 2.74 mg/dL Abnormal 4 Mills/Lambda Free Light Chain 2.30 Abnormal 5 Laboratory test 11/20/2018 [facility] TSH (Thyroid 7.09 High 0.34-5.[address] Stim Horm) mcIU/[place] [address] [phone] T3 Free 2.30 pg/mL Low 2.5-3.9 Free T4 (Free Thyroxine) 1.16 ng/dL High 0.61-1.12 T3 Total 51 ng/dL Low 87-178 Thyroperoxidase AB 0.20 IU/mL Normal <9 Thyroglobulin AB 0.0 IU/mL <4.0 Thyroid Stimulating Igg (Tsi) <1.0 TSIindex <=1.3 6 Laboratory test 08/18/2018 [facility] Magnesium 1.8 mg/dL Low 1.9-2.7 finding [address] [place] [address] [phone] Troponin-I (TnI) 0.01 ng/mL <0.04 7 TSH (Thyroid Stim Horm) 4.36 mcIU/mL Normal 0.34-5.60 Free T4 (Free Thyroxine) 1.16 ng/dL High 0.61-1.12 Comp Metabolic Panel 08/18/2018 [facility] Sodium 134 mmol/L Low 135-145 [place] [address] [phone] Potassium 3.6 mmol/L Normal 3.5-5.0 Chloride 98 [...] >60 Egfr 34.9 >60 8 Inr/Protime 08/18/2018 [facility] Inr 1.85 High 0.82-1.09 9 [address] [place] [address] [phone] CBC Auto Diff 08/18/2018 [facility] White Blood 7.5 Normal 3.5 -10.[address] Count 10^3/[place] [address] [phone] Red Blood Count 2.96 10^6/uL Low 3.70-4.87 [...] Blood Cells % 0.0 Laboratory test 08/18/2018 [facility] Troponin-I (TnI) 0.01 ng/ mL <0.04 10 finding [address] [place] [address] [phone] Laboratory test 08/18/2018 [facility] Troponin-I (TnI) 0.01 ng/ mL <0.04 11 finding [address] [place] [address] [phone] Urinalysis 08/05/2018 [facility] Urine Color Yellow Profile [address] [place] [address] [phone] Urine Appearance Clear Urine Specific [place] 1.005 Low 1.010-1.030 Urine pH 6.0 Normal 5-9 Urine Urobilinogen Negative Negative Urine Ketones Negative Negative Urine Protein Negative Negative Urine Leukocytes 1+ Abnormal Negative Urine Blood Negative Negative Urine Nitrite Negative Negative Urine Bilirubin Negative Negative Urine Glucose Negative Negative Urine White Blood Cell Trace(0-5/hpf) Absent Urine Red Blood Cell Absent Absent Urine Bacteria Absent Absent Urine Culture And 08/05/2018 [facility] Urine Culture SEE RESULT [address] [place] [address] [phone] 1 Because ethnic data is not always [...] protein on serum electrophoresis. Test Performed by: [facility] - [facility] [address] [place] [address] Adoption Agent: Mick Covington M.D. Ph.D.; CLIA# [id number] 3 REFERENCE VALUE 0.3300-1.94 4 REFERENCE VALUE 0.5700-2.63 5 Elevated free light chain ratios between 1.66 and 3.00 may occur due to polyclonal hypergammaglobulinemia or impaired renal clearance. An isolated increased free light chain ratio in this range should be interpreted with caution, and clinical correlation is recommended. REFERENCE VALUE 0.2600-1.65 Test Performed by: [facility] - [facility] [address] [place] [address] Adoption Agent: Mick Covington M.D. Ph.D.; CLIA# [id number] 6 Test Performed by: [facility] - [facility] [address] [place] [address] Adoption Agent: Mick Covington M.D. Ph.D.; CLIA# [id number] 7 Troponin-I testing on Plasma Separator Tubes (PST) has a known false positive rate of 0.20-0.40%. All positive troponins reflex immediately to secondary confirmatory testing. Using the [employer] DxI 800 Access Immunoassay systems, the 99th [...] immediately to secondary confirmatory testing. Using the [employer] DxI 800 Access Immunoassay systems, the 99th percentile upper reference limit was demonstrated to be < 0.03 ng/mL. 11 Troponin-I testing on Plasma Separator Tubes (PST) has a known false positive rate of 0.20-0.40%. All positive troponins reflex immediately to secondary confirmatory testing. Using the [employer] DxI 800 Access Immunoassay systems, the 99th percentile upper reference limit was demonstrated to be < 0.03 ng/mL. 12 SEE RESULT BELOW Name: HOMEVERONICA Luis : [address]: Nicole Guerra MD Acct: [id number] Unit: [id number] AGE: 87 Location: [place] [address] Re08/06/18 SEX: F Status: ADM IN SPEC: [id number] LACEY: 08/05/[address] [facility] [address]: Dinora CURTIS REQ: [id number] RECD: 08/05/18 STATUS: DAVID CARDENAS DR: Carlos A Quevedo MD PC _ SOURCE: URINE SPDESC: ORDERED: Urine Culture Procedure Result Reported Site Urine Culture Final 08/07/18- 0840 ML Few Enterobacteriacae; possible contamination. * ML - Main Lab . END OF REPORT DEPARTMENT OF PATHOLOGY, [address] [place] [address] Brendon Nicole M.D. Director [facility] # [id number] Procedures Date Code Description Status 12/10/2018 24749 Carpal Tunnel Release Completed 12/10/2018 85861 Carpal Tunnel Release Completed 11/19/2018 50301 EKG Tracing & Interpretation Completed 11/03/2018 66044 EKG, Interpretation Only Completed 11/03/2018 46461 Cardioversion Completed 11/02/2018 55565 EKG, Interpretation Only Completed 09/25/2018 Inject/Drain Joint/Bursa Major W/O US Completed 09/25/2018 Injection, Carpal Tunnel Completed 08/20/2018 45038 EKG Tracing & Interpretation Completed 08/18/2018 29683 Cardioversion Completed 08/06/2018 58230 Moderate Sedation Services; Same Phys Intl 15 Mins; PT Completed >= 5 Years 08/06/2018 45154 EKG, Interpretation Only Completed 08/06/2018 34264 Cardioversion Completed 07/25/2018 31359 EKG Tracing & Interpretation Completed 07/08/2018 25119 Secondary Closure Of Surgical Wound Or Dehiscence Completed Extensive Or Co 07/08/2018 98328 Secondary Closure Of Surgical Wound Or Dehiscence Completed Extensive Or Co 07/07/2018 67373 ECHO Transthorasic Realtime 2D W Doppler & Color Flow Completed Hosp 02/21/2018 [id number] Colonoscopy Completed 04/19/2009 41109204 Colonoscopy Completed Medical Devices Description No Information Available Encounters Type Date Location Provider Dx Diagnosis Office Visit 11/27/2018 [facility] Nephrology Bob Reyes I12.9 Hypertensive chronic 1:00p MD Celia kidney disease w stg 1-4/unsp chr kdny N18.4 Chronic kidney disease, stage 4 (severe) N17.9 Acute kidney failure, unspecified I10 Essential (primary) hypertension I48.0 Paroxysmal atrial fibrillation Office Visit 11/25/2018 10:15a [facility] Aaron F G56.01 [place] syndrome, right upper limb M19.011 Primary osteoarthritis, right shoulder S46.011A Strain of musc/tend the rotator cuff of right shoulder, init Office Visit 11/19/2018 10:45a [place] [facility] Talib Medrano I48.0 Paroxysmal atrial Of Nathaniel Cisneros M.D. 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 Office Visit 11/13/2018 10:00a [facility] Nephrology Bob Reyes N18.4 Chronic kidney MD Celia disease, stage 4 (severe) I12.9 Hypertensive chronic kidney disease w stg 1-4/unsp chr kdny R60.0 Localized edema I48.0 Paroxysmal atrial fibrillation I50.33 Acute on chronic diastolic (congestive) heart failure D64.9 Anemia, unspecified Office Visit 11/03/2018 [facility] Kerline I48.91 Unspecified atrial 9:06a lo Murcia MD fibrillation Hospitalists M54.9 Dorsalgia, unspecified Office Visit 11/02/2018 11:46a [facility] Harvey Saldana I48.0 Paroxysmal atrial Sandoval Richards fibrillation I50.30 Unspecified diastolic (congestive) heart failure R00.0 Tachycardia, unspecified D64.9 Anemia, unspecified R07.89 Other chest pain Office Visit 11/02/2018 [facility] Nicole Guerra I48.91 Unspecified 9:06a lo Murcia M.D. atrial Hospitalists fibrillation M54.9 Dorsalgia, unspecified N18.4 Chronic kidney disease, stage 4 (severe) Office Visit 09/25/2018 2:30p [place] F S46.011A Strain of Orthopedics at MD solange Johnson/va the [place] rotator cuff of right shoulder, init M19.011 Primary osteoarthritis, right shoulder G56.01 Carpal tunnel syndrome, right upper limb S72.002D Fx unsp part of nk of l femr, subs for clos fx w routn heal Office Visit 08/20/2018 3:15p [facility] Talib D. Z95.2 Presence of Of Nathaniel Cisneros M.D. prosthetic heart valve I25.10 Athscl heart disease of [place] coronary artery w/o ang pctrs I48.0 Paroxysmal atrial fibrillation [facility], I50.33 Acute on chronic 9:41a Asslo blunt M.D. diastolic Hospitalists (congestive) heart failure I48.91 Unspecified atrial fibrillation E83.42 Hypomagnesemia Office Visit 08/06/2018 [facility], I48.91 Unspecified 9:40a Assoclo M.D. atrial Hospitalists fibrillation I50.33 Acute on chronic diastolic (congestive) heart failure D64.9 Anemia, unspecified N18.3 Chronic kidney disease, stage 3 (moderate) Office Visit 08/06/2018 2:28p [place] Conchita Thompson, I48.91 Unspecified atrial Cardiology Of M.D. fibrillation Finish Painter I25.10 Athscl heart disease of [place] coronary artery w/o ang pctrs E87.8 Oth disorders of electrolyte and fluid balance, NEC Office Visit 08/05/2018 [facility] Dinora I48.91 Unspecified 9:39a Assoc,pc KIRSTEN Malik atrial Hospitalists fibrillation I50.9 Heart failure, unspecified R74.8 Abnormal levels of other serum enzymes E83.42 Hypomagnesemia E87.1 Hypo-osmolality and hyponatremia Office Visit 07/25/2018 11:45a [facility] Talib D. I25.10 Athscl heart Of Nathaniel Cisneros M.D. disease of [place] coronary artery w/o ang pctrs Z95.2 Presence of prosthetic heart valve I48.0 Paroxysmal atrial fibrillation Office Visit 07/16/2018 [facility] Vikki Christo, T81.49xA Infection 9:02a Assoc,pc BARREL LATHE OPERATOR following a Hospitalists procedure, other surgical site, init J96.01 Acute respiratory failure with hypoxia I13.0 Hyp hrt & chr kdny dis w hrt fail and stg 1-4/unsp chr kdny N39.0 Urinary tract infection, site not specified B96.1 Klebsiella pneumoniae as the cause of diseases classd elsr I47.2 Ventricular tachycardia I48.91 Unspecified atrial fibrillation R33.9 Retention of urine, unspecified Office Visit 07/15/2018 9:00a [facility] Vikki Christo, I13.0 Hyp hrt & chr Assoc,lo BARREL LATHE OPERATOR kdny dis w hrt Hospitalists fail and stg 1-4/unsp chr kdny N18.3 Chronic kidney disease, stage 3 (moderate) I47.2 Ventricular tachycardia I48.0 Paroxysmal atrial fibrillation [facility] I47.2 Ventricular 8:59a lo Murcia M.D. tachycardia Hospitalists N18.3 Chronic kidney disease, stage 3 (moderate) I13.0 Hyp hrt & chr kdny dis w hrt fail and stg 1-4/unsp chr kdny Office Visit 07/14/2018 [facility] T81.41xD Infct fol a 5:52a For Infectious Bishop, BARREL LATHE OPERATOR proc, superfic Diseases incisional surgical site, subs N39.0 Urinary tract infection, site not specified B96.1 Klebsiella pneumoniae as the cause of diseases classd elswhr N18.3 Chronic kidney disease, stage 3 (moderate) Office Visit 07/13/2018 [facility], L02.91 Cutaneous 8:59a lo Murcia M.D. abscess, Hospitalists unspecified R33.9 Retention of urine, unspecified I13.0 Hyp hrt & chr kdny dis w hrt fail and stg 1-4/unsp chr kdny N18.3 Chronic kidney disease, stage 3 (moderate) Office Visit 07/12/2018 [facility], R33.9 Retention of 8:57a Assoc,pc M.D. urine, Hospitalists unspecified I13.0 Hyp hrt & chr kdny dis w hrt fail and stg 1-4/unsp chr kdny N18.3 Chronic kidney disease, stage 3 (moderate) I47.2 Ventricular tachycardia Office Visit 07/11/2018 8:56a [facility] Priti R33.9 Retention of Assoc,pc Krishna, DO urine, Hospitalists unspecified L02.91 Cutaneous abscess, unspecified J96.01 Acute respiratory failure with hypoxia I13.0 Hyp hrt & chr kdny dis w hrt fail and stg 1-4/unsp chr kdny N18.3 Chronic kidney disease, stage 3 (moderate) Office Visit 07/11/2018 [facility] Vincentnicolemedhatoksindy T81.41xD Infct fol a 7:56a For Infectious MADY Bishop, superfic Diseases incisional surgical site, subs N39.0 Urinary tract infection, site not specified B96.1 Klebsiella pneumoniae as the cause of diseases classd elswhr N18.3 Chronic kidney disease, stage 3 (moderate) Office Visit 07/10/2018 8:55a [facility] Sugey I47.2 Ventricular Assoc,pc Geraldo Blackburn, tachycardia Hospitalists BARREL LATHE OPERATOR N18.3 Chronic kidney disease, stage 3 (moderate) I50.33 Acute on chronic diastolic (congestive) heart failure R33.9 Retention of urine, unspecified Office Visit 07/09/2018 [facility] Erin Kaurnicolemedhataranza T81.41xD Infct fol a 7:53a For MADY Maravilla, superfic Diseases incisional surgical site, subs D72.829 Elevated white blood cell count, unspecified N39.0 Urinary tract infection, site not specified B96.1 Klebsiella pneumoniae as the cause of diseases classd elswhr N18.3 Chronic kidney disease, stage 3 (moderate) Office Visit 07/08/2018 8:54a [facility] Sugey I47.2 Ventricular Assoc,pc [facility] Doto, tachycardia Hospitalists BARREL LATHE OPERATOR I50.33 Acute on chronic diastolic (congestive) heart failure I48.0 Paroxysmal atrial fibrillation N18.4 Chronic kidney disease, stage 4 (severe) Office Visit 07/08/2018 [facility] Vincentnicolemedhatoksindy T81.41xA Infct fol a 7:48a For Infectious MADY Bishop proc, superfic Diseases incisional surgical site, init N39.0 Urinary tract infection, site not specified B96.1 Klebsiella pneumoniae as the cause of diseases classd elswhr N18.3 Chronic kidney disease, stage 3 (moderate) Z96.642 Presence of left artificial hip joint Office Visit 07/07/2018 8:53a [facility] Sugey I47.2 Ventricular Assoc,pc Geraldo Blackburn, tachycardia Hospitalists BARREL LATHE OPERATOR I50.33 Acute on chronic diastolic (congestive) heart failure I48.0 Paroxysmal atrial fibrillation N18.4 Chronic kidney disease, stage 4 (severe) Office Visit 07/06/2018 8:53a [facility] Galo N17.9 Acute kidney Assoc,lo Cowan M.D. failure, Hospitalists unspecified I47.2 Ventricular tachycardia I11.0 Hypertensive heart disease with heart failure I50.33 Acute on chronic diastolic (congestive) heart failure I48.91 Unspecified atrial fibrillation Office Visit 07/05/2018 4:26p [place] [facility] Carlos A Jt I47.2 Ventricular Of Nathaniel Luz M.D., tachycardia FACC, FASNC Z98.61 Coronary angioplasty status Z95.2 Presence of prosthetic heart valve Office Visit 07/05/2018 8:52a [facility] Galo N17.9 Acute kidney Assoc,lo Cowan M.D. failure, Hospitalists unspecified E87.1 Hypo-osmolality and hyponatremia I50.31 Acute diastolic (congestive) heart failure I11.0 Hypertensive heart disease with heart failure Office Visit 07/04/2018 [facility] Galo E87.1 Hypo-osmolality and 8:51a Assoc,lo Cowan M.D. hyponatremia Hospitalists N17.9 Acute kidney failure, unspecified I48.91 Unspecified atrial fibrillation Office Visit 07/03/2018 8:50a [facility] Charlette N17.9 Acute kidney Assoc,lo [facility], DO failure, Hospitalists unspecified D72.829 Elevated white blood cell count, unspecified R53.1 Weakness R05 Cough Office Visit 07/03/2018 10:15a [facility] Aaron Gomez S72.012D [place]sp [place] MD fx left femur, subs for clos fx w routn heal S52.514D Nondisp fx of r radial styloid pro, 7thD S46.011A Strain of musc/tend the rotator cuff of right shoulder, init Assessments Date Code Description Provider 12/10/2018 G56.01 Carpal tunnel syndrome, right upper [...] Atherosclerotic heart disease of Talib Cisneros M.D. [place] coronary artery with 11/19/2018 Z95.2 Presence of [...] 11/03/2018 R94.31 Abnormal electrocardiogram [ECG] Jesus Alberto Karina Sherman DO [facility] [EKG] 11/03/2018 I48.91 Unspecified atrial fibrillation [...] Atherosclerotic heart disease of Talib Cisneros M.D. [place] coronary artery with 08/20/2018 I48.0 Paroxysmal atrial [...] Atherosclerotic heart disease of Conchita Thompson M.D. [place] coronary artery with 08/06/2018 D64.9 Anemia, unspecified [...] Atherosclerotic heart disease of Talib Cisneros M.D. [place] coronary artery with 07/25/2018 Z95.2 Presence of prosthetic heart valve Talib Cisneros M.D. 07/25/2018 I48.0 Paroxysmal atrial fibrillation Talib Cisneros M.D. 07/22/2018 T81.41xD Infection following a procedure, Aaron Johnson MD superficial incisional surg 07/22/2018 S72.012D Unspecified intracapsular fracture Aaron Johnson MD of left femur, subsequent 07/16/2018 T81.49xA Infection following a procedure, Vikki Christo, BARREL LATHE OPERATOR other surgical site, init 07/16/2018 J96.01 Acute respiratory failure with Vikki Christo, BARREL LATHE OPERATOR hypoxia 07/16/2018 I13.0 Hyp hrt & chr kdny dis w hrt fail Vikki Christo, BARREL LATHE OPERATOR and stg 1-4/unsp chr kdny 07/16/2018 N39.0 Urinary tract infection, site not Vikki Christo, BARREL LATHE OPERATOR specified 07/16/2018 B96.1 Klebsiella pneumoniae as the cause Vikki Christo, BARREL LATHE OPERATOR of diseases classd elswhr 07/16/2018 I47.2 Ventricular tachycardia Vikki Christo, BARREL LATHE OPERATOR 07/16/2018 I48.91 Unspecified atrial fibrillation Vikki Christo, BARREL LATHE OPERATOR 07/16/2018 R33.9 Retention of urine, unspecified Vikki Christo, BARREL LATHE OPERATOR 07/15/2018 I13.0 Hyp hrt & chr kdny dis w hrt fail Vikki Christo, BARREL LATHE OPERATOR and stg 1-4/unsp chr kdny 07/15/2018 N18.3 Chronic kidney disease, stage 3 Vikki Christo, BARREL LATHE OPERATOR (moderate) 07/15/2018 I47.2 Ventricular tachycardia Vikki Christo, BARREL LATHE OPERATOR 07/15/2018 I48.0 Paroxysmal atrial fibrillation Vikki Christo, BARREL LATHE OPERATOR 07/14/2018 T81.41xD Infection following a procedure, Erin Bishop NP superficial incisional surg 07/14/2018 T81.31xD Disruption of external operation KIRSTEN Sutton (surgical) wound, not elsew 07/14/2018 N39.0 Urinary tract infection, site not Eringlory Bishop , MADY specified 07/14/2018 I47.2 Ventricular [...] fail Nicole Guerra M.D. and stg -/unsp [facility] kdny 07/13/2018 L02.91 Cutaneous abscess, unspecglen Guerra M.D. 07/13/2018 R33.9 Retention of urine, unspecified Nicole Guerra M.D. 07/13/2018 I13.0 Hyp hrt & chr kdny dis w hrt fail Nicole Guerra M.D. and stg -/unsp chr kdny 07/13/2018 N18.3 Chronic kidney disease, stage 3 Nicole Guerra M.D. (moderate) 07/12/2018 T81.31xD Disruption of external operation Caroline Chatman RPA-C (surgical) wound, NEC, subs 07/12/2018 R33.9 Retention of urine, unspecified Nicole Guerra M.D. 07/12/2018 I13.0 Hyp hrt & chr kdny dis w hrt fail Nicole Guerra M.D. and stg -/unsp chr kdny 07/12/2018 N18.3 Chronic kidney disease, stage 3 Nicole Guerra M.D. (moderate) 07/12/2018 I47.2 Ventricular tachycardia Nicole Guerra M.D. 07/11/2018 T81.31xD Disruption of external operation Lucie Mora RPA-C (surgical) wound, NEC, subs 07/11/2018 R33.9 Retention of urine, unspecified Priti Keller, 07/11/2018 T81.41xD Infct fol a proc, superfic Erin Bishop NP incisional surgical site, subs 07/11/2018 L02.91 Cutaneous abscess, unspecified Priti Keller, 07/11/2018 N39.0 Urinary tract infection, site not Erin Bishop NP specified 07/11/2018 J96.01 Acute respiratory failure with Priti Keller DO hypoxia 07/11/2018 B96.1 Klebsiella pneumoniae as the cause Erin Bishop NP of diseases classd elswhr 07/11/2018 I13.0 Hyp hrt & chr kdny dis w hrt fail Priti Keller DO and stg 1-4/unsp chr kdny 07/11/2018 [...] Erin Bishop NP of diseases classd elsr 07/08/2018 N18.3 Chronic kidney disease, stage 3 [...] I47.2 Ventricular tachycardia Carlos A Luz M.D., [facility], [facility] 07/05/2018 E87.1 Hypo-osmolality and hyponatremia Galo Cowan M.D. 07/05/2018 Z98.61 Coronary angioplasty status [facility].D., [facility] 07/05/2018 I50.31 Acute diastolic (congestive) heart Galo Cowan M.D. failure 07/05/2018 Z95.2 Presence of prosthetic heart valve Carlos A Luz M.D., [facility], [facility] 07/05/2018 I11.0 Hypertensive heart disease with Galo Cowan M.D. heart failure 07/04/2018 T81.31xD Disruption of external operation Aaron Johnson MD (surgical) wound, NEC, subs 07/04/2018 E87.1 Hypo-osmolality and hyponatremia Galo Cowan M.D. 07/04/2018 N17.9 Acute kidney failure, unspecified Galo Cowan M.D. 07/04/2018 I48.91 Unspecified atrial fibrillation Galo Cowan M.D. 07/03/2018 N17.9 Acute kidney failure, unspecified Charlette Weems, 07/03/2018 S72.012D Unspecified intracapsular fracture Aaron Johnson [...] Charlette Weems DO Plan of Treatment Future Appointment(s):01/26/2019 10:00 am - Bob Yang MD at [facility] Otqvkfkvez53/19/2019 - Bob Yang MDI12.9 Hypertensive chronic kidney disease with stage 1 through stage 4 chronic kidney disease, or unspecified chronic kidney mtqlzptZ65.4 Chronic kidney disease, stage 4 (severe)Follow up:2 months with LabsN17.9 Acute kidney failure, [id number] Essential (primary) owfbymlucfphJ72.0 Paroxysmal atrial fibrillation Functional Status Description No Information Available Mental Status Description No Information Available Referrals Description No Information Available
--- OUTSIDE RECORDS SUMMARY | 2019-01-02 10:46 | XMS REPORT | Continuity of Care Document ---
:1930 External Reference #:[id number] Author Name Harvey Richards M.D. (transmitted by agent of provider Helene Johnson ) Address [address] [facility] [address] [place] [address] Care Team Providers Name Role Phone Susy Quevedo MD - Internal Care Team Information Employer Relations Representative [phone] Medicine Sahil Pang MD - Internal Care Team Information Employer Relations Representative Medicine Problems Active Problems Provider Date Aortic [...] Patient has never smoked Smoking Status Reviewed: 09/25/18 Patient has never smoked Exercise Type/Frequency Exercises rarely Allergies, Adverse Reactions, Alerts Description No Known Drug Allergies Medications Active Medications SIG Qnty Indications Ordering Date Provider Eliqudina 1 tab po twice Unknown 07/16/2018 2.5mg Tablets daily Nitroglycerin 1 sl q5mins x3 as 25tabs Talib Medrano 10/17/2016 0.4mg needed for chest Sandoval Cisneros Tablets Sub pain Potassium Chloride ER 1 tabs by mouth 90tabs Talib Medrano 06/04/2012 daily ( discharge Sandoval Cisneros 10Meq Tablets ER med list 20 Meq daily ) Miralax 17 grams by mouth Unknown Powder every day as needed Magnesium Oxide 1 by mouth every Unknown 400mg day Tablets Amiodarone HCL every other day Unknown 200mg [...] 1 tablet po twice 60tabs Unknown daily [id number] Tablets Colace 1 po tid 180caps Unknown [...] History Medications Keflex take 1 tab by 21caps Aaron Gomez 07/03/2018 - 500mg mouth 3 times a MD Alex Unknown Capsules day x 7 days until finished. Magnesium Oxide -MG 1 tab by mouth 2x 60caps I48.91 Ashley Martinez, 2018 - Supplement daily N.P. Unknown 400mg Capsules Medications Administered in Office Medication SIG Qnty Indications Ordering Provider Date Dexamethasone Sodium Aaron Johnson MD 09/25/2018 Phosphate, 1 MG Injection Depomedrol 40MG Aaron Johnson MD 09/25/2018 Injection Immunizations Description No Information Available Vital Signs Date Vital Result Comment 09/25/2018 3:02pm Height 66 inches 5'6" Weight 198.00 lb BP Systolic 100 mmHg BP Diastolic 62 mmHg Respiratory Rate 18 /min Pain Level 8 BMI (Body Mass Index) 32.0 kg/m2 08/20/2018 2:26pm Height 66 inches 5'6" Weight 194.00 lb with shoes Heart Rate 70 /min BP Systolic Sitting 90 mmHg Lue lg cuff BP Diastolic Sitting 60 mmHg Lue lg cuff BP Systolic Standing 72 mmHg Lue lg cuff BP Diastolic Standing 56 mmHg Lue lg cuff Respiratory Rate 16 /min O2 % BldC Oximetry 96 % at room air BMI (Body Mass Index) 31.3 kg/m2 Ejection Fraction 55-60% date 07/07/18 ECHO Results Test Date Facility Test Result H/L Range Note Laboratory test 08/18/2018 [facility] Troponin-I 0.01 ng/mL < 0.[address] (TnI) [place] [address] [phone] Laboratory test 08/18/2018 [facility] Troponin-I 0.01 ng/mL < 0.[address] (TnI) [place] [address] [phone] CBC Auto Diff 08/18/2018 [facility] White Blood 7.5 10^3/uL Normal 3.5-10.[address] [place] [address] [phone] Red Blood Count 2.96 10^6/uL Low 3.70-4.87 [...] Red Blood Cells % 0.0 Inr/Protime 08/18/2018 [facility] Inr 1.85 High 0.82-1.[address] [place] [address] [phone] Comp Metabolic 08/18/2018 [facility] Sodium 134 mmol/L Low 135 -145 Panel [address] [place] [address] [phone] Potassium 3.6 mmol/L Normal 3.5-5.0 Chloride 98 [...] Egfr 34.9 >60 4 Laboratory test 08/18/2018 [facility] Magnesium 1.8 mg/dL Low 1.9-2.7 finding [address] [place] [address] [phone] Troponin-I (TnI) 0.01 ng/mL <0.04 5 TSH (Thyroid Stim Horm) 4.36 mcIU/mL Normal 0.34-5.60 Free T4 (Free Thyroxine) 1.16 ng/dL High 0.61-1.12 Urinalysis Profile 08/05/2018 [facility] Urine Color Yellow [address] [place] [address] [phone] Urine Appearance Clear Urine Specific [place] 1.005 Low 1.010-1.030 Urine pH 6.0 Normal 5-9 Urine Urobilinogen Negative Negative Urine Ketones Negative Negative Urine Protein Negative Negative Urine Leukocytes 1+ Abnormal Negative Urine Blood Negative Negative Urine Nitrite Negative Negative Urine Bilirubin Negative Negative Urine Glucose Negative Negative Urine White Blood Cell Trace(0-5/hpf) Absent Urine Red Blood Cell Absent Absent Urine Bacteria Absent Absent Urine Culture And 08/05/2018 [facility] Urine Culture SEE RESULT [address] [place] [address] [phone] 1 Troponin-I testing on Plasma Separator Tubes (PST) has a known false positive rate of 0.20-0.40%. All positive troponins reflex immediately to secondary confirmatory testing. Using the [employer] DxI 800 Access Immunoassay systems, the 99th percentile upper reference limit was demonstrated to be < 0.03 ng/mL. 2 Troponin-I testing on Plasma Separator Tubes (PST) has a known false positive rate of 0.20-0.40%. All positive troponins reflex immediately to secondary confirmatory testing. Using the [employer] DxI 800 Access Immunoassay systems, the 99th [...] immediately to secondary confirmatory testing. Using the [employer] DxI 800 Access Immunoassay systems, the 99th percentile upper reference limit was demonstrated to be < 0.03 ng/mL. 6 SEE RESULT BELOW Name: HOMEVERONICA Peña : [address]: Nicole Guerra MD Acct: [id number] Unit: [id number] AGE: 87 Location: [place] [address] Re08/06/18 SEX: F Status: ADM IN SPEC: [id number] LACEY: 08/05/18 [facility] DR: Dinora CURTIS REQ: [id number] RECD: 08/05/18 STATUS: DAVID CARDENAS DR: Carlos A Quevedo MD PC _ SOURCE: URINE SPDESC: ORDERED: Urine Culture Procedure Result Reported Site Urine Culture Final 08/07/18- 0840 ML Few Enterobacteriacae; possible contamination. * ML - Main Lab . END OF REPORT DEPARTMENT OF PATHOLOGY, [address] [place] [address] Brendon Nicole M.D. Director [facility] # [id number] Procedures Date Code Description Status 09/25/2018 Inject/Drain Joint/Bursa Major W/O US Completed 09/25/2018 Injection, Carpal Tunnel Completed 08/20/2018 75330 EKG Tracing & Interpretation Completed 08/18/2018 01285 Cardioversion Completed 08/06/2018 63834 EKG, Interpretation Only Completed 08/06/2018 68401 Moderate Sedation Services; Same Phys Intl 15 Mins; PT Completed >= 5 Years 08/06/2018 22359 Cardioversion Completed 07/25/2018 87265 EKG Tracing & Interpretation Completed 07/08/2018 75153 Secondary Closure Of Surgical Wound Or Dehiscence Completed Extensive Or Co 07/08/2018 23279 Secondary Closure Of Surgical Wound Or Dehiscence Completed Extensive Or Co 07/07/2018 32306 ECHO Transthorasic Realtime 2D W Doppler & Color Flow Completed Hosp 06/09/2018 06712 EKG, Interpretation Only Completed 06/09/2018 48876 Cardioversion Completed 05/30/2018 83277 EKG Tracing & Interpretation Completed 02/21/2018 [id number] Colonoscopy Completed 04/19/2009 [id number] Colonoscopy Completed Medical Devices Description No Information Available Encounters Type Date Location Provider Dx Diagnosis Office Visit 09/25/2018 Orthopedic Aaron Gomez S46.011A Strain of 2:30p Services Of Tal Johnson MD musc/tend the rotator cuff of right shoulder, init M19.011 Primary osteoarthritis, right shoulder G56.01 Carpal tunnel syndrome, right upper limb S72.002D Fx unsp part of nk of perry boggs, subs for clos fx w routn heal Office Visit 08/20/2018 3:15p [facility] Talib Medrano 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 diastolic Hospitalists (congestive) heart failure I48.91 Unspecified atrial fibrillation E83.42 Hypomagnesemia Office Visit 08/06/2018 [facility] Nicole Guerra, I48.91 Unspecified 9:40a lo Murcia M.D. atrial Hospitalists fibrillation I50.33 Acute on chronic diastolic (congestive) heart failure D64.9 Anemia, unspecified N18.3 Chronic kidney disease, stage 3 (moderate) Office Visit 08/06/2018 2:28p [place] [place] Conchita Thompson, I48.91 Unspecified atrial Cardiology Of M.D. fibrillation [facility] I25.10 Athscl heart disease of [place] coronary artery w/o ang pctrs E87.8 Oth disorders of electrolyte and fluid balance, NEC Office Visit 08/05/2018 [facility] Dinora I48.91 Unspecified 9:39a Asslo blunt PA atrial Hospitalists fibrillation I50.9 Heart failure, unspecified R74.8 Abnormal levels of other serum enzymes E83.42 Hypomagnesemia E87.1 Hypo-osmolality and hyponatremia Office Visit 07/25/2018 11:45a [facility] Talib Medrano I25.10 Athscl heart Of Nathaniel Cisneros M.D. disease of [place] coronary artery w/o ang pctrs Z95.2 Presence of prosthetic heart valve I48.0 Paroxysmal atrial fibrillation Office Visit 07/16/2018 [facility] Vikki Christo, T81.49xA Infection 9:02a Assoc,pc PROGRAMMER DEVELOPER following a Hospitalists procedure, other surgical site, init J96.01 Acute respiratory failure with hypoxia I13.0 Hyp hrt & chr kdny dis w hrt fail and stg 1-4/unsp chr kdny N39.0 Urinary tract infection, site not specified B96.1 Klebsiella pneumoniae as the cause of diseases classd elswhr I47.2 Ventricular tachycardia I48.91 Unspecified atrial fibrillation R33.9 Retention of urine, unspecified Office Visit 07/15/2018 9:00a [facility] Vikki Christo, I13.0 Hyp hrt & chr Assoc,pc PROGRAMMER DEVELOPER kdny dis w hrt Hospitalists fail and stg 1-4/unsp chr kdny N18.3 Chronic kidney disease, stage 3 (moderate) I47.2 Ventricular tachycardia I48.0 Paroxysmal atrial fibrillation [facility] Ventricular 8:59a lo Murcia M.D. tachycardia Hospitalists N18.3 Chronic kidney disease, stage 3 (moderate) I13.0 Hyp hrt & chr kdny dis w hrt fail and stg 1-4/unsp chr kdny Office Visit 07/14/2018 [facility] T81.41xD Infct fol a 5:52a For Infectious MADY Bishop proc, superfic Diseases incisional surgical site, subs N39.0 Urinary tract infection, site not specified B96.1 Klebsiella pneumoniae as the cause of diseases classd elswhr N18.3 Chronic kidney disease, stage 3 (moderate) Office Visit 07/13/2018 [facility], L02.91 Cutaneous 8:59a lo Murcia M.D. abscess, Hospitalists unspecified R33.9 Retention of urine, unspecified I13.0 Hyp hrt & chr kdny dis w hrt fail and stg 1-4/unsp chr kdny N18.3 Chronic kidney disease, stage 3 (moderate) [facility] R33.9 Retention of 8:57a lo Murcia M.D. urine, Hospitalists unspecified I13.0 Hyp hrt & chr kdny dis w hrt fail and stg 1-4/unsp chr kdny N18.3 Chronic kidney disease, stage 3 (moderate) I47.2 Ventricular tachycardia Office Visit 07/11/2018 8:56a [facility] Priti R33.9 Retention of Assoc,pc Krishna, DO urine, Hospitalists unspecified L02.91 Cutaneous abscess, unspecified J96.01 Acute respiratory failure with hypoxia I13.0 Hyp hrt & chr kdny dis w hrt fail and stg 1-4/unsp chr kdny N18.3 Chronic kidney disease, stage 3 (moderate) Office Visit 07/11/2018 [facility] T81.41xD Infct fol a 7:56a For Infectious MADY Bishop proc, superfic Diseases incisional surgical site, subs N39.0 Urinary tract infection, site not specified B96.1 Klebsiella pneumoniae as the cause of diseases classd elswhr N18.3 Chronic kidney disease, stage 3 (moderate) Office Visit 07/10/2018 8:55a [facility] I47.2 Ventricular Assoc,lo Blackburn, tachycardia Hospitalists PROGRAMMER DEVELOPER N18.3 Chronic kidney disease, stage 3 (moderate) I50.33 Acute on chronic diastolic (congestive) heart failure R33.9 Retention of urine, unspecified Office Visit 07/09/2018 [facility] T81.41xD Infct fol a 7:53a For Infectious MADY Bishop proc, superfic Diseases incisional surgical site, subs D72.829 Elevated white blood cell count, unspecified N39.0 Urinary tract infection, site not specified B96.1 Klebsiella pneumoniae as the cause of diseases classd elswhr N18.3 Chronic kidney disease, stage 3 (moderate) Office Visit 07/08/2018 [facility] T81.41xA Infct fol a 7:48a For Infectious MADY Bishop proc, superfic Diseases incisional surgical site, init N39.0 Urinary tract infection, site not specified B96.1 Klebsiella pneumoniae as the cause of diseases classd elswhr N18.3 Chronic kidney disease, stage 3 (moderate) Z96.642 Presence of left artificial hip joint Office Visit 07/08/2018 8:54a [facility] I47.2 Ventricular Assoc,pc Geraldo Blackburn, tachycardia Hospitalists PROGRAMMER DEVELOPER I50.33 Acute on chronic diastolic (congestive) heart failure I48.0 Paroxysmal atrial fibrillation N18.4 Chronic kidney disease, stage 4 (severe) Office Visit 07/07/2018 8:53a [facility] Sugey I47.2 Ventricular Assoc, Geraldo Doto, tachycardia Hospitalists PROGRAMMER DEVELOPER I50.33 Acute on chronic diastolic (congestive) heart failure I48.0 Paroxysmal atrial fibrillation N18.4 Chronic kidney disease, stage 4 (severe) Office Visit 07/06/2018 8:53a [facility] Galo N17.9 Acute kidney Assoc, Sandoval Cowan failure, Hospitalists unspecified I47.2 Ventricular tachycardia I11.0 Hypertensive heart disease with heart failure I50.33 Acute on chronic diastolic (congestive) heart failure I48.91 Unspecified atrial fibrillation Office Visit 07/05/2018 8:52a [facility] Galo N17.9 Acute kidney Assoc, Sandoval Cowan failure, Hospitalists unspecified E87.1 Hypo-osmolality and hyponatremia I50.31 Acute diastolic (congestive) heart failure I11.0 Hypertensive heart disease with heart failure Office Visit 07/05/2018 4:26p [facility] Carlos A Waters I47.2 Ventricular Of Nathaniel Luz M.D., tachycardia FACC, FASNC Z98.61 Coronary angioplasty status Z95.2 Presence of prosthetic heart valve Office Visit 07/04/2018 [facility] Galo E87.1 Hypo-osmolality and 8:51a Assoc, Sandoval Cowan hyponatremia Hospitalists N17.9 Acute kidney failure, unspecified I48.91 Unspecified atrial fibrillation Office Visit 07/03/2018 8:50a [facility] Charlette N17.9 Acute kidney Assoc,[facility], DO failure, Hospitalists unspecified D72.829 Elevated [...] of right shoulder, init Office Visit 06/10/2018 [facility] I48.91 Unspecified atrial 4:48p lo Murcia M.D. fibrillation Hospitalists E03.9 Hypothyroidism, unspecified D64.9 Anemia, unspecified Office Visit 06/09/2018 [facility] I48.91 Unspecified atrial 9:14a lo Murcia M.D. fibrillation Hospitalists E03.9 Hypothyroidism, unspecified D64.9 Anemia, unspecified Office Visit 06/08/2018 1:34p [facility] Conchita Thompson, I48.0 Paroxysmal atrial Of Mortgage Loan Counselor M.D. 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 fibrillation Office Visit 05/30/2018 [facility] Ashley S. I48.91 Unspecified atrial 11:30a Of [facility] Foster, N.P. fibrillation I10 Essential (primary) hypertension R60.9 Edema, unspecified I50.32 Chronic diastolic (congestive) heart failure Office Visit 05/27/2018 1:00p Orthopedic Aaron F S72.012D Unsp intracap Services Of MD Alex fx left femur, C.M.A. subs for clos fx w routn heal S52.514D Nondisp fx of r radial styloid pro, 7thD Office Visit 05/14/2018 [facility] S72.012A Unsp intracapsular 9:31a lo Murcia M.D. fracture of left Hospitalists femur, init for clos fx D62 Acute posthemorrhagic anemia I48.91 Unspecified atrial fibrillation I10 Essential (primary) hypertension W19.xxxA Unspecified fall, initial encounter [facility] Acute 9:30a Asslo blunt MD posthemorrhagic Hospitalists anemia R65.10 Sirs of non-infectious origin w/o acute organ dysfunction N17.9 Acute kidney failure, unspecified I48.91 Unspecified atrial fibrillation S72.002A Fracture of unsp part of neck of left femur, init M79.669 Pain in unspecified lower leg I10 Essential (primary) hypertension Z95.5 Presence of coronary angioplasty implant and graft [facility] Acute 9:30a lo Murcia MD posthemorrhagic Hospitalists anemia R65.10 Sirs of non-infectious origin w/o acute organ dysfunction N17.9 Acute kidney failure, unspecified S72.002A Fracture of unsp part of neck of left femur, init I48.91 Unspecified atrial fibrillation I10 Essential (primary) hypertension Z95.5 Presence of coronary angioplasty implant and graft Office Visit 05/10/2018 [facility] D62 Acute 9:29a lo Murcia MD posthemorrhagic Hospitalists anemia R65.10 Sirs of non-infectious origin w/o acute organ dysfunction N17.9 Acute kidney failure, unspecified I48.91 Unspecified atrial fibrillation S72.002A Fracture of unsp part of neck of left femur, init I10 Essential (primary) hypertension Z95.5 Presence of coronary angioplasty implant and graft Office Visit 05/09/2018 [facility] R65.10 Sirs of 9:29a lo Murcia MD non-infectious Hospitalists origin w/o acute organ dysfunction N17.9 Acute kidney failure, unspecified D62 Acute posthemorrhagic anemia I48.91 Unspecified atrial fibrillation S72.002A Fracture of unsp part of neck of left femur, init I10 Essential (primary) hypertension Z95.5 Presence of coronary angioplasty implant and graft Office Visit 05/08/2018 [facility] R65.10 Sirs of 9:29a Assoc,lo Ewing D.O. non-infectious Hospitalists origin w/o acute organ dysfunction N17.9 Acute kidney failure, unspecified D62 Acute posthemorrhagic anemia S72.002A Fracture of unsp part of neck of left femur, init I48.91 Unspecified atrial fibrillation I10 Essential (primary) hypertension Z95.5 Presence of coronary angioplasty implant and graft Office Visit 05/07/2018 [facility] R65.10 Sirs of 9:28a Asslo blunt D.O. non-infectious Hospitalists origin w/o acute organ dysfunction N17.9 Acute kidney failure, unspecified S72.002A Fracture of unsp part of neck of left femur, init I48.91 Unspecified atrial fibrillation I10 Essential (primary) hypertension Z95.5 Presence of coronary angioplasty implant and graft Assessments Date Code Description Provider 09/25/2018 S46.011A Strain of muscle(s) and tendon(s) [...] Atherosclerotic heart disease of Talib Cisneros M.D. [place] coronary artery with 08/20/2018 I48.0 Paroxysmal atrial [...] Atherosclerotic heart disease of Conchita Thompson M.D. [place] coronary artery with 08/06/2018 D64.9 Anemia, unspecified [...] Atherosclerotic heart disease of Talib Cisneros M.D. [place] coronary artery with 07/25/2018 Z95.2 Presence of prosthetic heart valve Talib Cisneros M.D. 07/25/2018 I48.0 Paroxysmal atrial fibrillation Talib Cisneros M.D. 07/22/2018 T81.41xD Infection following a procedure, Aaron Johnson MD superficial incisional surg 07/22/2018 S72.012D Unspecified intracapsular fracture Aaron Johnson MD of left femur, subsequent 07/16/2018 T81.49xA Infection following a procedure, Vikki Christo, PROGRAMMER DEVELOPER other surgical site, init 07/16/2018 J96.01 Acute respiratory failure with Vikki Christo, PROGRAMMER DEVELOPER hypoxia 07/16/2018 I13.0 Hyp hrt & chr kdny dis w hrt fail Vikki Christo, PROGRAMMER DEVELOPER and stg 1-4/unsp chr kdny 07/16/2018 N39.0 Urinary tract infection, site not Vikki Christo, PROGRAMMER DEVELOPER specified 07/16/2018 B96.1 Klebsiella pneumoniae as the cause Vikki Christo, PROGRAMMER DEVELOPER of diseases classd elswhr 07/16/2018 I47.2 Ventricular tachycardia Vikki Christo, PROGRAMMER DEVELOPER 07/16/2018 I48.91 Unspecified atrial fibrillation Vikki Christo, PROGRAMMER DEVELOPER 07/16/2018 R33.9 Retention of urine, unspecified Vikki Christo, PROGRAMMER DEVELOPER 07/15/2018 I13.0 Hyp hrt & chr kdny dis w hrt fail Vikki Christo, PROGRAMMER DEVELOPER and stg 1-4/unsp chr kdny 07/15/2018 N18.3 Chronic kidney disease, stage 3 Vikki Christo, PROGRAMMER DEVELOPER (moderate) 07/15/2018 I47.2 Ventricular tachycardia Vikki Christo, PROGRAMMER DEVELOPER 07/15/2018 I48.0 Paroxysmal atrial fibrillation Vikki Christo, PROGRAMMER DEVELOPER 07/14/2018 T81.41xD Infection following a procedure, Erin [...] fail Nicole Guerra M.D. and stg -/unsp [facility] kdny 07/13/2018 L02.91 Cutaneous abscess, unspecified Nicole Guerra M.D. 07/13/2018 R33.9 Retention of urine, unspecified Nicole Guerra M.D. 07/13/2018 I13.0 Hyp hrt & chr kdny dis w hrt fail Nicole Guerra M.D. and stg -4/unsp chr kdny 07/13/2018 N18.3 Chronic kidney disease, stage 3 Nicole Guerra M.D. (moderate) 07/12/2018 T81.31xD Disruption of external operation MILLY DíazC (surgical) wound, NEC, subs 07/12/2018 R33.9 Retention of urine, unspecified Nicole Guerra M.D. 07/12/2018 I13.0 Hyp hrt & chr kdny dis w hrt fail Nicole Guerra M.D. and stg 1-4/unsp chr kdny 07/12/2018 N18.3 Chronic kidney disease, [...] J96.01 Acute respiratory failure with Priti Keller, DO hypoxia 07/11/2018 B96.1 Klebsiella pneumoniae as [...] N18.3 Chronic kidney disease, stage 3 Erin Bishop, PROGRAMMER DEVELOPER (moderate) 07/08/2018 Z96.642 Presence of left artificial [...] I47.2 Ventricular tachycardia Carlos A Luz M.D., [facility], [facility] 07/05/2018 E87.1 Hypo-osmolality and hyponatremia Galo Cowan M.D. 07/05/2018 Z98.61 Coronary angioplasty status Carlos A Luz M.D., [facility], [facility] 07/05/2018 I50.31 Acute diastolic (congestive) heart Galo Cowan M.D. failure 07/05/2018 Z95.2 Presence of prosthetic heart valve Carlos A Luz M.D., [facility], [facility] 07/05/2018 I11.0 Hypertensive heart disease with [...] Encounter for other specified Nemo Benjamin MD, [facility], aftercare [facility] 06/09/2018 I48.91 Unspecified atrial fibrillation Rubina [...] Atherosclerotic heart disease of Conchita Thompson M.D. [facility] coronary artery with 06/08/2018 Z98.61 Coronary angioplasty [...] Atherosclerotic heart disease of Conchita Thompson M.D. [facility] [place] coronary artery with 06/07/2018 Z98.61 Coronary angioplasty status Conchita Thompson M.D. 06/06/2018 I48.91 Unspecified atrial fibrillation Nicole Guerra M.D. 06/06/2018 I48.0 Paroxysmal atrial fibrillation Jesus Alberto Sherman, DO [facility] 06/06/2018 D63.1 Anemia in chronic kidney disease Nicole Guerra M.D. 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 (moderate) 06/06/2018 I25.2 Old myocardial infarction Jesus Alberto Sherman, DO [facility] 06/06/2018 I25.10 Atherosclerotic heart disease of Jesus Alberto Sherman, DO [facility] [place] coronary artery with 06/06/2018 Z98.61 Coronary angioplasty [...] disease of Jesus Alberto Sherman, DO [facility] [place] coronary artery with 06/05/2018 Z98.61 Coronary angioplasty status Jesus Alberto Sherman, DO [facility] 05/30/2018 I48.91 Unspecified atrial fibrillation Talib Cisneros M.D. 05/30/2018 I48.91 Unspecified atrial fibrillation Ashley S. Juan, N.P. 05/30/2018 I10 Essential (primary) hypertension Ashley S. Juan, N.P. 05/30/2018 R60.9 Edema, unspecified Ashley S. Foster, N.P. 05/30/2018 I50.32 Chronic diastolic (congestive) heart Ashley S. Foster, N.P. failure 05/27/2018 S72.012D Unspecified intracapsular fracture Aarno Johnson MD of left femur, subsequent 05/27/2018 S52.514D Nondisp fx of r radial styloid pro, Aaron Johnson MD 7thD 05/14/2018 S72.012A Unsp intracapsular fracture of left Ky Boyer M.D. femur, init for clos fx 05/14/2018 D62 Acute posthemorrhagic anemia Ky Boyer M.D. 05/14/2018 I48.91 Unspecified atrial fibrillation Ky Boyer M.D. 05/14/2018 I10 Essential (primary) hypertension Ky Boyer M.D. 05/14/2018 W19.xxxA Unspecified fall, initial encounter Ky Boyer M.D. 05/12/2018 S72.012D Unspecified intracapsular fracture Caroline Chatman, RPA-C of left femur, subsequent 05/12/2018 D62 Acute posthemorrhagic anemia Carson Ling MD 05/12/2018 R65.10 Sirs of non-infectious origin w/o Carson Ling MD acute organ dysfunction 05/12/2018 N17.9 Acute kidney failure, unspecified Carson Ling MD 05/12/2018 I48.91 Unspecified atrial fibrillation Carson Ling MD 05/12/2018 S72.002A Fracture of unsp part of neck of Carson Ling MD left femur, init 05/12/2018 M79.669 Pain in unspecified lower leg Carson Ling MD 05/12/2018 I10 Essential (primary) hypertension Carson Ling MD 05/12/2018 Z95.5 Presence of coronary angioplasty Carson Ling MD implant and graft 05/11/2018 S72.012D Unspecified intracapsular fracture Nelson Feldmancolton, PA-C of left femur, subsequent 05/11/2018 D62 Acute posthemorrhagic anemia Carson Ling MD 05/11/2018 R65.10 Sirs of non-infectious origin w/o Carson Ling MD acute organ dysfunction 05/11/2018 N17.9 Acute kidney failure, unspecified Carson Ling MD 05/11/2018 S72.002A Fracture of unsp part of neck of Carson Ling MD left femur, init 05/11/2018 I48.91 Unspecified atrial fibrillation Carson Ling MD 05/11/2018 I10 Essential (primary) hypertension Carson Ling MD 05/11/2018 Z95.5 Presence of coronary angioplasty Carson Ling MD implant and graft 05/10/2018 D62 Acute posthemorrhagic anemia Carson Ling MD 05/10/2018 R65.10 Sirs of non-infectious origin w/o Carson Ling MD acute organ dysfunction 05/10/2018 N17.9 Acute kidney failure, unspecified Carson Ling MD 05/10/2018 I48.91 Unspecified atrial fibrillation Carson Ling MD 05/10/2018 S72.002A Fracture of unsp part of neck of Carson Ling MD left femur, init 05/10/2018 I10 Essential (primary) hypertension Carson Ling MD 05/10/2018 Z95.5 Presence of coronary angioplasty Carson Ling MD implant and graft 05/09/2018 S72.012D Unspecified intracapsular fracture Lucie Mora, RPA-C of left femur, subsequent 05/09/2018 R65.10 Sirs of non-infectious origin w/o Carson Ling MD acute organ dysfunction 05/09/2018 N17.9 Acute kidney failure, unspecified Carson Ling MD 05/09/2018 D62 Acute posthemorrhagic anemia Carson Ling MD 05/09/2018 I48.91 Unspecified atrial fibrillation Carson Ling MD 05/09/2018 S72.002A Fracture of unsp part of neck of Carson Ling MD left femur, init 05/09/2018 I10 Essential (primary) hypertension Carson Ling MD 05/09/2018 Z95.5 Presence of coronary angioplasty Carson Ling MD implant and graft 05/08/2018 S72.012D Unspecified intracapsular fracture KIRSTEN Sutton of left femur, subsequent 05/08/2018 R65.10 Sirs of non-infectious origin w/o Olga Lidia Ewing D.O. acute organ dysfunction 05/08/2018 N17.9 Acute kidney failure, unspecified Olga Lidia Ewing D.O. 05/08/2018 D62 Acute posthemorrhagic anemia Olga Lidia Ewing D.O. 05/08/2018 S72.002A Fracture of unsp part of neck of Olga Lidia Gildardo, D.O. left femur, init 05/08/2018 I48.91 Unspecified atrial fibrillation Olga Lidia Gildardo, D.O. 05/08/2018 I10 Essential (primary) hypertension Olga Lidia Gildardo, D.O. 05/08/2018 Z95.5 Presence of coronary angioplasty Olga Lidia Gildardo, D.O. implant and graft 05/07/2018 S72.012D Unspecified intracapsular fracture KIRSTEN Sutton of left femur, subsequent 05/07/2018 R65.10 Sirs of non-infectious origin w/o Olga Lidia Gildardo, D.O. acute organ dysfunction 05/07/2018 N17.9 Acute kidney failure, unspecified Olga Lidia Gildardo, D.O. 05/07/2018 S72.002A Fracture of unsp part of neck of Olga Lidia Gildardo, D.O. left femur, init 05/07/2018 I48.91 Unspecified atrial fibrillation Olga Lidia Gildardo, D.O. 05/07/2018 I10 Essential (primary) hypertension Olga Lidia Gildardo, D.O. 05/07/2018 Z95.5 Presence of coronary angioplasty Olga Lidia Gildardo, D.O. implant and graft Plan of Treatment Future Appointment(s):11/25/2018 10:15 am - Aaron Johnson MD at [facility]..11/19/2018 10:45 am - Talib Cisneros M.D. at [facility]09/25/2018 - Aaron Johnson, MDS46.011A Strain of muscle(s) and tendon(s) of the rotator cuff of rigM19.011 Primary osteoarthritis , right cyrnfsucW46.01 Carpal tunnel syndrome, right upper limbS72.002D Fracture of unspecified part of neck of left femur, subsequeNew Therapy: Physical TherapyFollow up:Follow up: in 2 months for R shoulder and hand and wrist In 6 months for L hip Functional Status Description No Information Available Mental Status Description No Information Available Referrals Description No Information Available
--- NOTE | 2019-01-02 10:50 | ED ---
Palpitations / Dysrhythmia - HPI Summary HPI Summary: The patient is a 88 y/o F presenting to [facility] with a chief complaint of fast heart rate this morning at 0600. She reports that she was getting ready to leave the house when she felt her heart beating fast. When she began walking, she felt some mild pain in the posterior neck. She was not experiencing any chest pain, shortness of breath, dizziness, nausea, vomiting, abdominal pain, or diarrhea. She has a history of atrial fibrillation, and she sees Dr. Cisneros from cardiology. The last time she had an episode of atrial fibrillation, she was cardioverted. PMHx: thyroid disease, anemia, angina, afib, CHD, CAD, HLD, HTN, aortic valve replacement, cardiac catherizations, cardiac stents, peripheral vascular disease, COPD. Nonsmoker, no EtOH, no substance use. Medications reviewed. Allergies noted. - History of Current Complaint Chief Complaint: EDDysrhythmPalp Time Seen by Provider: 01/02/19 10:42 Hx Obtained From: Patient Onset/Duration: Sudden Onset, Lasting Hours - since 0600 this morning, Still Present Severity Initially: Mild Severity Currently: Mild Character: Fast Aggravating: Other - ambulation Alleviating: Nothing Related History: Similar Episode/Dx as - history of atrial fibrillation - Allergy/Home Medications Allergies/Adverse Reactions: Allergies Allergy/AdvReac Type Severity Reaction Status Date / Time No Known Allergies Allergy Verified 01/02/19 11:09 PMH/Surg Hx/FS Hx/Imm Hx Endocrine/Hematology History: Reports: Hx Anticoagulant Therapy, Hx Blood Transfusions, Hx Thyroid Disease, Hx Anemia - on iron Denies: Hx Diabetes Cardiovascular History: Reports: Hx Angina, Hx Atrial Fibrillation, Hx Congestive Heart Failure, Hx Coronary Artery Disease, Hx Hypercholesterolemia, Hx Hypertension, Hx Peripheral Vascular Disease, Hx Syncope, Hx Valvular Heart Disease Denies: Hx Myocardial Infarction, Hx Pacemaker/ICD Comment Only: Other Cardiovascular Problems/Disorders - stents, A-fib Respiratory History: Reports: Hx Chronic Bronchitis, Hx Chronic Obstructive Pulmonary Disease (COPD) Denies: Hx Asthma GI History: Reports: Hx Irritable Bowel - w/ constipation, Other GI Disorders - constipation Denies: Hx Gastrointestinal Bleed, Hx Hiatal Hernia, Hx Ulcer History: Reports: Other Problems/Disorders - musa placed in [facility] Denies: Hx Chronic Renal Failure, Hx Kidney Stones, Hx Renal Disease Musculoskeletal History: Reports: Hx Arthritis - osteoarhtritis, Hx Back Problems, Hx Orthopedic Injury, Other Musculoskeletal History - HAMMER TOE LEFT SECOND TOE-repaired Denies: Hx Osteoporosis Sensory History: Reports: Hx Cataracts - LENS IMPLANTS 2011, Hx Contacts or Glasses - Reading, Hx Vision Problem, Other Sensory Impairments - dry eye Denies: Hx Hearing Aid Opthamlomology History: Reports: Hx Cataracts - LENS IMPLANTS 2011, Hx Contacts or Glasses - Reading, Hx Vision Problem, Other Sensory Impairments - dry eye Neurological History: Denies: Hx Dementia, Hx Transient Ischemic Attacks (TIA) Psychiatric History: Denies: Hx Panic Disorder - Cancer History Hx Chemotherapy: No Hx Radiation Therapy: No - Surgical History Surgical History: Yes Surgery Procedure, Year, and Place: AORTIC valve replacement, 2012,. , 1964, [facility]. [facility], [facility] cardiac catherization with cardiac stent to RCA October 2016. cardioversions 2014,2015, 08/2016, 05/30/18. left hip hemiarthroplasty surgery 2018. left hip revision 06/2018 Hx Anesthesia Reactions: No - Immunization History Date of Influenza Vaccine: 12/25 Infectious Disease History: No Infectious Disease History: Denies: Hx Clostridium Difficile, Hx Hepatitis, Hx Human Immunodeficiency Virus (HIV), Hx of Known/Suspected MRSA, Hx Shingles, Hx Tuberculosis, Hx Known/ Suspected VRE, Hx Known/Suspected VRSA, History Other Infectious Disease, Traveled Outside the [place] in Last 30 Days - Family History Known Family History: Positive: Hypertension - Social History Alcohol Use: None Hx Substance Use: No Substance Use Type: Reports: None Hx Tobacco Use: No Smoking Status (MU): Never Smoked Tobacco Have You Smoked in the Last Year: No Review of Systems Positive: Palpitations - fast heart rate. Negative: Chest Pain Negative: Shortness Of Breath Negative: Abdominal Pain, Vomiting, Diarrhea, Nausea Positive: Other - mild posterior neck pain All Other Systems Reviewed And Are Negative: Yes Physical Exam - Summary Physical Exam Summary: VITAL SIGNS: Reviewed. GENERAL: Patient is a well-developed and obese elderly female who is lying comfortable in the stretcher. Patient is not in any acute respiratory distress. HEAD AND FACE: No signs of trauma. No ecchymosis, hematomas or skull depressions. No sinus tenderness. EYES: PERRLA, EOMI x 2, No injected conjunctiva, no nystagmus. EARS: Hearing grossly intact. Ear canals and tympanic membranes are within normal limits. MOUTH: Oropharynx within normal limits. NECK: Supple, trachea is midline, no adenopathy, no JVD, no carotid bruit, no c- spine tenderness, neck with full ROM. CHEST: Symmetric, no tenderness at palpation. LUNGS: Clear to auscultation bilaterally. No wheezing or crackles. CVS: Irregular rate and rhythm, S1 and S2 present, no murmurs or gallops appreciated. ABDOMEN: Soft, non-tender. No signs of distention. No rebound, no guarding, and no masses palpated. Bowel sounds are normal. EXTREMITIES: FROM in all major joints, no edema, no cyanosis or clubbing. NEURO: Alert and oriented x 3. No acute neurological deficits. Speech is normal and follows commands. SKIN: Dry and warm. Triage Information Reviewed: Yes Vital Signs On Initial Exam: Initial Vitals Temp Pulse Resp BP Pulse Ox 96.9 F 98 22 151/69 100 01/02/19 10:39 01/02/19 10:39 01/02/19 10:39 01/02/19 10:39 01/02/19 10:39 Vital Signs Reviewed: Yes Procedures - Sedation Patient Received Moderate/Deep Sedation with Procedure: Yes Are You The Provider Who Administered The Sedation: [place] of Provider Whom Sedated Patient: Jesus Alberto Sherman - cardiology Diagnostics - Vital Signs Vital Signs Temp Pulse Resp BP Pulse Ox 01/02/19 10:39 96.9 F 98 22 151/69 100 - Laboratory Result Diagrams: 01/02/19 12:06 01/02/19 12:05 Lab Statement: Any lab studies that have been ordered have been reviewed, and results considered in the medical decision making process. - Radiology Chest X-Ray Radiology Interpretation Completed By: Radiologist Summary of Radiographic Findings: Impression: Cardiomegaly. ED physician has reviewed this report. - EKG 1034 Cardiac Rate: Other Rate - 86 BPM EKG Rhythm: Atrial Fibrillation Summary of EKG Findings: EKG at 1034 reveals wandering atrial pacemaker at 86 BPM with PVCs. ED physician has reviewed and interpreted this EKG. 1312 Cardiac Rate: Other Rate - 105 BPM EKG Rhythm: Atrial Fibrillation Summary of EKG Findings: EKG at 1312 reveals atrial fibrillation at 105 BPM with LBBB. ED physician has reviewed and interpreted this EKG. 1545 Cardiac Rate: Bradycardia - 47 BPM EKG Rhythm: Sinus Bradycardia EKG Comparison: No Significant Change - Atrial fibrillation has rseolved following cardioversion. Summary of EKG Findings: EKG at 1545 reveals sinus bradycardia at [address] elevations. ED physician has reviewed and interpreted this EKG. Re-Evaluation - Re-Evaluation First Eval Re-Evaluation Time: 15:30 Change: Improved Comment: Dr. Sherman performed cardioversion, which was successful. Second Eval Re-Evaluation Time: 16:30 Change: Improved Comment: Patient is awake. We discussed all findings and plan for discharge. Course/Dx - Course Assessment/Plan: Patient is an 88 y/o F who has a history of atrial fibrillation with a chief complaint of sudden onset fast heart rate this morning onset at 0600 with mild neck pain with ambulation. There is no associated chest pain, shortness of breath, nausea, vomiting, abdominal pain, or diarrhea. She sees Dr. Cisneros for management of cardiac history including cardioversions. Blood work without any significant abnormality except for slight anemia, INR of 1.85, BUN of 34, creatinine of 1.91, glucose of 120, BNP of 593, and total protein of 6.3. Urinalysis is contaminated. Therefore, well send the urine for cultures. EKG shows and atrial flutter with intermittent left bundle branch block. Chest x-ray impression: Cardiomegaly. At this time, I discussed my physical exam and findings with Dr. Sherman from cardiology who recommends for the patient to be cardioverted. He will come and do the cardioversion. After cardioversion, the repeat EKG shows a sinus bradycardia at [address] Sherman recommends for the patient to be discharged home with follow- up with Dr. Cisneros. Patient is hemodynamically stable alert and oriented 3. - Diagnoses Provider Diagnoses: Atrial flutter with rapid ventricular response - Physician Notifications Discussed Care Of Patient With: Jesus Alberto Sherman - cardiology Time Discussed With Above Provider: 13:30 Instructed by Provider To: Other - I discussed the patient's case with Dr. Sherman, and he recommends cardioversion as he agrees with EKG read of atrial fibrillation of LBBB. He will come see the patient in the ED. At 1500, Dr. Sherman is in the ED performing cardioversion. Following cardioversion, he states that the patient is safe for discharge when she wakes up from the sedation. Discharge ED - Sign-Out/Discharge Documenting (check all that apply): Patient Departure - Patient will be discharged home. - Discharge Plan Condition: Improved Disposition: HOME Patient Education Materials: Atrial Flutter (DC), Procedural Sedation (ED) Referrals: Talib Cisneros MD [Medical Doctor] - 3 Days Susy Quevedo MD [Primary Care Provider] - 3 Days Additional Instructions: Follow up with Dr. Cisneros in 2-3 days concerning today's visit. Follow up with your primary care provider in 2-3 days. Return to the emergency department for any new or worsening symptoms. - Billing Disposition and Condition Condition: IMPROVED Disposition: Home - Attestation Statements Document Initiated by Marcos: Yes Documenting Scribe: Sury Plata Provider For Whom Marcos is Documenting (Include Credential): Dr. Shane Reynolds MD Scribe Attestation: Sury Scott scribed for Dr. Shane Reynolds MD on 01/02/19 at 1858. Scribe Documentation Reviewed: Yes Provider Attestation: The documentation as recorded by the Sury harrington accurately reflects the service I personally performed and the decisions made by me, Dr. Shane Reynolds MD Status of Scribe Document: Viewed
[2019-01-02 11:50] LABS: Urine Appearance Clear; Urine Bacteria Absent (Absent); Urine Bilirubin Negative (Negative); Urine Blood Negative (Negative); Urine Color Straw; Urine Glucose Negative (Negative); Urine Ketones Negative (Negative); Urine Nitrite Negative (Negative); Urine Protein Negative (Negative); Urine Red Blood Cell Trace(0-2/hpf) (Absent); Urine Specific Gravity 1.005 (1.010-1.030); Urine Squamous Epithelial Cell Present (Absent); Urine Urobilinogen Negative (Negative); Urine White Blood Cell 1+(6-10/hpf) (Absent)
[2019-01-02 12:17] LABS: ABS Eosinophils 0.1 10^3/ul (0-0.6); ABS Lymphocytes 0.9 10^3/ul (1.0-4.8); ABS Monocytes 0.6 10^3/ul (0-0.8); ABS Neutrophils 4.3 10^3/ul (1.5-7.7); Eosinophil % 1.2 %; Hematocrit 30 % (35-47); Hemoglobin 10.2 g/dL (12.0-16.0); Lymphocyte % 15.1 %; Mean Corpuscular HGB Conc 34 g/dL (31-36); Mean Corpuscular Hemoglobin 33 pg (27-31); Mean Corpuscular Volume 97 fL (80-97); Mean Platelet Volume 7.4 fL (7.4-10.4); Nucleated Red Blood Cells % 0.1; Platelet Count 163 10^3/uL (150-450); Red Cell Distribution Width 14 % (10-15); White Blood Count 5.9 10^3/uL (3.5-10.8)
[2019-01-02 12:25] LABS: Activated Partial Thrombo Time 34.1 seconds (26.0-38.0); INR 1.85 (0.82-1.09)
[2019-01-02 12:30] LABS: Albumin 3.8 g/dL (3.2-5.2); Albumin/Globulin Ratio 1.5 (1-3); BUN/Creatinine Ratio 17.8 (8-20); Calcium 9.4 mg/dL (8.6-10.3); EGFR Non-African American 24.8 (>60); Globulin 2.5 g/dL (2-4); Magnesium 2.1 mg/dL (1.9-2.7); Potassium 4.1 mmol/L (3.5-5.0); Total Bilirubin 0.5 mg/dL (0.2-1.0); Total Protein 6.3 g/dL (6.4-8.9)
[2019-01-02 12:34] LABS: Troponin I 0.01 ng/mL (<0.04)
[2019-01-02 12:35] LABS: CKMB ng/mL 1.2 ng/mL (0.6-6.3)
[2019-01-02 13:33] LABS: TSH (Thyroid Stimulating Horm) 2.41 mcIU/mL (0.34-5.60)
[2019-01-02] MEDS ORDERED: fentaNYL* 50 MCG/ML 2 ML VIAL (100 MCG VIAL) ONE (15:05)
[2019-01-02] MEDS ORDERED: Midazolam* 1 MG/ML 10 ML VIAL (10 MG) ONE (15:06)
--- NOTE | 2019-01-02 15:16 | CONSULT ---
Subjective Date of Service: 01/02/19 Interval History: Consultation [facility] [place] ER 01/02/[address] Reynolds PCP: Dr. Quevedo Interior Wirer: Dr. Cisneros CC: Palpitations Reason for consult: Atrial flutter HISTORY OF PRESENT ILLNESS: Veronica Sherwood is an 88-year-old woman with a history as below including but not limited to poorly tolerated paroxysmal atrial fibrillation with multiple cardioversions in the past. She is on 300 mg of amiodarone daily. She has been on eliquis for at least a month with missing any doses. She developed palpitations this morning and presented to the ER when she was found with a slower atrial flutter and variable rate related LBBB. She has had no chest pain , syncope, change in breathing, bleeding or melena. She did notice some edema over the last week but weight have been pretty consistent at home about 185 lbs weight self daily. She only took sips of water with medications this morning anticipating she would need a cardioversion. PAST MEDICAL HISTORY: - non-ST elevation CT in 2016 in the setting of AFib and underwent cardiac catheterization underwent bare-metal stent for 90% proximal RCA lesion. There is 30% distal left main lesion. - aortic valve replacement from 2012, - hypertension. - CKD/HFpEF - Anemia - Paroxysmal atrial fibrillation PAST SURGICAL HISTORY: left hip fracture after fall in the ice in April and a revision in July, cataract surgery. ALLERGIES: She has no known allergies, but does have edema on AMLODIPINE. FAMILY HISTORY: She is , lives with her . She had 3 brothers who of coronary artery disease in their 40s and 50s, 1 in the 60s, and 2 sisters who had open-heart surgery. Her father of CVA at 66. SOCIAL HISTORY: She denies tobacco or alcohol use. She drinks 1 cup of caffeinated coffee a day. She walks with a walker and is able to get around her house usually without a problem. Medications Home Medications: Folic Acid TAB* [Folvite TAB*] 1 mg PO QAM 09/30/12 [History Confirmed 12/10/18] Aspirin EC TAB* [Ecotrin EC Low Dose 81 MG*] 81 mg PO QAM 12/28/14 [History Confirmed 12/10/18] Nitroglycerin TAB 0.4 MG* 0.4 mg SL Q5M PRN #60 tab 10/17/16 [Rx Confirmed 12/10] Cyanocobalamin TAB* [Vitamin B12 TAB*] 1,000 mcg PO QAM 03/06/17 [History Confirmed 12/10/18] Calcium Carbonate/Vitamin D3 [Calcium 600-Vit D3 400 Tablet] 1 tab PO BID [History Confirmed 12/10/18] Multivitamins/Minerals TAB* [Theragran/minerals TAB*] 1 tab PO QAM 05/28/17 [ History Confirmed 12/10/18] Ferrous Sulfate TAB* 325 mg PO QAM 01/10/18 [History Confirmed 12/10/18] Atorvastatin* [Lipitor 40 MG*] 40 mg PO BEDTIME 04/30/18 [History Confirmed 04/29] Acetaminophen TAB* [Tylenol TAB*] 650 mg PO Q4H PRN tab 05/13/18 [Rx Confirmed 12/10/18] Potassium Chlor TAB* [Potassium Chlor TAB 20 MEQ*] 20 meq PO QAM 06/05/18 [ History Confirmed 12/10/18] Polyethylene Glycol 3350* [Miralax*] 17 gm PO DAILY PRN 07/03/18 [History Confirmed 12/10/18] Apixaban* [Eliquis*] 2.5 mg PO BID #60 tab 07/16/18 [Rx Confirmed 12/10/18] Metoprolol Tartrate TAB* [Lopressor TAB*] 25 mg PO BID #60 tab 07/16/18 [Rx Confirmed 12/10/18] Amiodarone TAB* [Cordarone Tab*] 300 mg PO QAM 08/05/18 [History Confirmed 12/10] Furosemide TAB* [Lasix TAB*] 40 mg PO QAM 11/01/18 [History Confirmed 12/10/18] Docusate CAP* [Colace Cap*] 100 mg PO QAM 12/01/18 [History Confirmed 12/10/18] Docusate CAP* [Colace Cap*] 200 mg PO BEDTIME 12/01/18 [History Confirmed ] Levothyroxine TAB* [Synthroid 25 MCG TAB*] 50 mcg PO DAILY@0600 12/01/18 [ History Confirmed 12/10/18] Magnesium Oxide TAB* [MagOx 400 TAB*] 400 mg PO BEDTIME 12/01/18 [History Confirmed 12/10/18] Nystatin TOP POWDER* 1 applic TOPICAL TID PRN 12/01/18 [History Confirmed ] Review of Systems - Measurements Intake and Output: Intake and Output Last 24 Hours 12/31/18 01/01/19 01/02/19 01/03/19 06:59 06:59 06:59 06:59 Weight 186 lb - Review of Systems Constitutional Symptoms: Negative: Weight Gain, Weight Loss, Fever, Night Sweats Dermatology: Negative: Rash, Skin Lesions HEENT: Negative: Change in Hearing, Vertigo Eyes: Negative: Change in Vision, Double Vision Thyroid: Positive: Palpitations Negative: Cold Intolerance, Heat Intolerance, Weight Loss, Weight Gain Pulmonary: Positive: Exercise Intolerance Negative: Cough, Sputum, Hemoptysis Cardiology: Positive: Palpitations, Swelling of Ankles, Edema Negative: Chest Pain, Peripheral Vascular Dis, Syncope, Paroxysmal Nocturnal Dyspnea, Orthopnea Gastroenterology: Negative: Abdominal Pain, Nausea, Vomiting, Anorexia, Blood in Stools, Haematemesis, Melena Genital - Urinary: Negative: Dysuria, Hematuria Musculoskeletal: Positive: Joint Stiffness Negative: Joint Deformities Endocrinology: Negative: Polydipsia, Polyuria Hematologic/Lymphatic: Positive: Anemia, Use of Anticoagulant, Use of Antiplatelet Drugs Negative: Hx Leukemia, Hx Lymphoma Neurology: Negative: Change in Speech, Change in Sphincter Function, Change in Walking, Hx of Stroke\TIA, Hx Seizures Psychiatry: Negative: Unusual Anxiety, Suicidal Ideation Allergic/Immunologic: Negative: Hx HIV, Immunocompromise Review of Systems Statement: All other review of systems negative, unless stated above. Objective Vital Signs: Temp Pulse Resp BP Pulse Ox 96.9 F 92 16 126/72 96 01/02/19 10:39 01/02/19 13:07 01/02/19 13:07 01/02/19 13:07 01/02/19 13:07 Appearance: nad, very pleasant Ears/Nose/Mouth/Throat: Clear Oropharnyx, Mucous Membranes Moist Neck: Trachea Midline, - - uncertain jvp Respiratory: Symmetrical Chest Expansion and Respiratory Effort, Clear to Auscultation Cardiovascular: - - sternotomy scar, irregularly irregular, 2/6 systolic murmur Abdominal: NL Sounds; No Tenderness; No Distention Extremities: No Clubbing, Cyanosis, - - 1+ edema b/l Skin: No Rash or Ulcers Neurological: Alert and Oriented x 3 Laboratory Results: 01/02/19 12:06 01/02/19 12:05 INR (Anticoag Therapy) 1.85 (0.82-1.09) H 01/02/19 12:06 APTT 34.1 seconds (26.0-38.0) 01/02/19 12:06 Total Bilirubin 0.50 mg/dL (0.2-1.0) 01/02/19 12:05 AST 18 U/L (13-39) 01/02/19 12:05 ALT 15 U/L (7-52) 01/02/19 12:05 Alkaline Phosphatase 63 U/L (34-104) 01/02/19 12:05 CK-MB (CK-2) 1.2 ng/mL (0.6-6.3) 01/02/19 12:05 B-Natriuretic Peptide 593 pg/mL (<=100) H 01/02/19 12:05 Total Protein 6.3 g/dL (6.4-8.9) L 01/02/19 12:05 Albumin 3.8 g/dL (3.2-5.2) 01/02/19 12:05 Globulin 2.5 g/dL (2-4) 01/02/19 12:05 Albumin/Globulin Ratio 1.5 (1-3) 01/02/19 12:05 TSH 2.41 mcIU/mL (0.34-5.60) 01/02/19 12:05 01/02/19 12:05 Troponin I 0.01 Diagnostic Imaging: Transthoracic Echocardiogram Summary: 1. Left ventricle: Systolic function is normal. The estimated ejection fraction is 55-60%. Wall motion is normal; there are no regional wall motion abnormalities. 2. Right ventricle: The cavity size is normal. Wall thickness is mildly to moderately increased. 3. Mitral valve: There is mild regurgitation. 4. Aortic valve: There is trivial regurgitation. The mean systolic gradient is 7.0 mm Hg. Normal function 5. Tricuspid valve: There is mild-moderate regurgitation. 6. Pulmonary arteries: Systolic pressure is mildly to moderately increased. cxr today FINDINGS: LINES AND TUBES: None. CARDIOMEDIASTINAL SILHOUETTE: A prosthetic heart valve is noted. The cardiac silhouette is enlarged. PLEURA: The costophrenic angles are sharp. No pleural abnormalities are noted. LUNG PARENCHYMA: The lungs are clear. ABDOMEN: The upper abdomen is clear. There is no subphrenic gas. BONES AND SOFT TISSUES: The patient is status post median sternotomy. IMPRESSION: CARDIOMEGALY EKG Data: todays ekg ekg 1: 2:1 flutter with rate ~ 86 bpm with incomplete lbbb ekg 2: atrial flutter rate 105 bpm with LBBB, better aprpeciated on telemetry monitoring in and out of aberrancy Assessment/Plan 1. Highly symptomatic paroxysmal atrial fibrillation and now flutter - On amiodarone and metoprolol as above - Anticoagulated with with eliquis 2. HFpEF/CKD 3. CAD s/p PCI 4. HTN 5. Anemia - Cardioversion recommended which patient has anticipated. Risks, benefits and alternatives discussed and patient wishes to proceed. She has been taking eliquis appropriate dose of 2.5 mg po bid (age, renal function) without missing a dose for greater than 1 month so YUE not required. Thank you for allowing me to participate in the cardiovascular care of this patient. Please do not hesitate to contact me with questions or concerns.
[2019-01-02] MEDS ORDERED: Naloxone* 0.4 MG/ML 1 ML VIAL ONE (15:17)
[2019-01-02] MEDS ORDERED: Flumazenil* 0.1 MG/ML 5 ML MDV ONE (15:22)
--- NOTE | 2019-01-02 15:37 | CONSULT ---
Cardiology Note 01/02/2019 External electrical cardioversion Patient in symptomatic atrial flutter with intermittent aberrant LBBB Risks, benefits and alternatives discussed and patient wished to proceed Has been anticoagulated > 1 month so YUE not performed 3 mg IV versed, 50 mcg IV fentanyl used for conscious sedation. Patient cardioverted from atrial flutter to sinus bradycardia with 75J external electrical sync x 1 No complications
[2019-01-02 17:31] VITALS: BP 156/59
== END 2019-01-02 17:20 | disposition home or self-care (01) ==
LOC: ED 10:34
DX: I48.92 Unspecified atrial flutter (principal); D64.9 Anemia, unspecified; I48.91 Unspecified atrial fibrillation; I25.10 Atherosclerotic heart disease of native coronary artery without angina pectoris; E78.5 Hyperlipidemia, unspecified; E78.00 Pure hypercholesterolemia, unspecified; J44.9 Chronic obstructive pulmonary disease, unspecified; I25.2 Old myocardial infarction; I13.0 Hypertensive heart and chronic kidney disease with heart failure and stage 1 through stage 4 chronic kidney disease, or unspecified chronic kidney disease; N18.9 Chronic kidney disease, unspecified; I50.30 Unspecified diastolic (congestive) heart failure; Z95.2 Presence of prosthetic heart valve; Z95.5 Presence of coronary angioplasty implant and graft; Z79.82 Long term (current) use of aspirin; Z79.01 Long term (current) use of anticoagulants; Z79.899 Other long term (current) drug therapy
CPT/HCPCS: 36415; 71045; 80053; 81003; 81015; 82550; 82553; 83605; 83735; 83880; 84443; 84484; 85025; 85610; 85730; 87086; 93005; 99284; J2250; J2310; J3010

== ENCOUNTER 2019-01-25 18:32 | Inpatient (IN) | payer MEDICARE ==
--- OUTSIDE RECORDS SUMMARY | 2019-01-25 18:44 | XMS REPORT | Continuity of Care Document ---
:1930 External Reference #:[id number] Author Name Harvey Richards M.D. (transmitted by agent of provider Helene Johnson ) Address [address] [facility] [address] [place] [address] Care Team Providers Name Role Phone Susy Quevedo MD - Internal Care Team Information [facility] Sahil Pang MD - Internal Care Team Information [facility] Problems Active Problems Provider Date Aortic [...] Patient has never smoked Smoking Status Reviewed: 01/09/19 Patient has never smoked Exercise Type/Frequency Exercises [...] for chest Sandoval Cisneros Tablets Sub pain Lipitor 1 by mouth at Unknown 40mg Tablets bedtime Vitamin B12 1 by mouth every Unknown [...] ( Per 50mcg Tablets discharge 08/08/18 ) Calcium 600 + D 1 tablet po twice 60tabs Unknown daily [id number] Tablets Colace 1 po tid 180caps Unknown [...] MD Susy discharge 07/16/18 [facility]) History Medications Tramadol HCL take 1-2 tabs by 30tabs Aaron Gomez 12/10/2018 - 50mg Tablets mouth every 6 MD Alex 01/08/2019 hours as needed for pain Spironolactone 1/2 tab by Unknown 11/10/2018 - 25mg Tablets mouth every day 11/13/2018 Medications Administered in Office Medication SIG Qnty Indications Ordering Provider Date Dexamethasone Sodium Aaron Johnson MD 09/25/2018 Phosphate, 1 MG Injection Depomedrol 40MG Aaron Johnson MD 09/25/2018 Injection Immunizations Description No Information Available Vital Signs Date Vital Result Comment 01/09/2019 8:24am Height 66 inches 5'6" Weight 186.50 lb with shoes Heart Rate 46 /min BP Systolic Sitting 110 mmHg Lue reg cuff BP Diastolic Sitting 62 mmHg Lue reg cuff Respiratory Rate 13 /min BMI (Body Mass Index) 30.1 kg/m2 Ejection Fraction 55-60% ECHO 07/07/2018 12/25/2018 2:54pm Height 66 inches 5'6" Weight 195.00 lb stated Heart Rate 56 /min BP Systolic 128 mmHg BP Diastolic 56 mmHg Respiratory Rate 12 /min Body Temperature 97.7 F Pain Level 0 BMI (Body Mass Index) 31.5 kg/m2 Results Test Acquired Date Facility Test Result H/L Range Note Neph Routine 11/20/2018 [facility] Total Protein 6 mg/dL [address] [place] [address] [phone] Creatinine Random Urine 19.84 mg/dL CBC Auto 11/20/2018 [facility] White Blood 5.4 10^3/uL Normal 3.5-10.[address] [place] [address] [phone] Red Blood Count 3.23 10^6/uL Low 3.70-4.87 [...] Blood Cells % 0.0 Urinalysis Profile 11/20/2018 [facility] Urine Color Yellow [address] [place] [address] [phone] Urine Appearance Cloudy Urine Specific [place] 1.005 Low 1.010-1.030 Urine pH 7.0 Normal 5-9 Urine Urobilinogen Negative Negative Urine Ketones Negative Negative Urine Protein Negative Negative Urine Leukocytes Negative Negative Urine Blood Negative Negative Urine Nitrite Negative Negative Urine Bilirubin Negative Negative Urine Glucose Negative Negative Basic Metabolic 11/20/2018 [facility] Sodium 140 mmol/L Normal 135-[address] [place] [address] [phone] Potassium 4.1 mmol/L Normal 3.5-5.0 Chloride 102 mmol/L Normal 101-111 Co2 Carbon Dioxide 31 mmol/L Normal 22-32 Anion Gap 7 mmol/L Normal 2-11 Glucose 89 mg/dL Normal 70-100 Blood Urea Nitrogen 22 mg/dL Normal 6-24 Creatinine 1.67 mg/dL High 0.51-0.95 BUN/Creatinine Ratio 13.2 Normal 8-20 Calcium 9.1 mg/dL Normal 8.6-10.3 Egfr Non- 29.0 >60 Egfr 35.0 >60 1 Protein 11/20/2018 [facility] Total 6.5 g/dL 6.3 - Electrophoresis [address] Protein(Pep) 7.9 [place] [address] [phone] Albumin 3.4 g/dL 3.4-4.7 Alpha-1 Globulin 0.3 g/dL 0.1-0.3 Alpha-2 Globulin 1.0 g/dL 0.6-1.0 Beta Globulin 1.0 g/dL 0.7-1.2 Gamma Globulin 0.9 g/dL 0.6-1.6 Albumin/Globulin Ratio 1.13 Impression See Comment 2 [place]/Lambda Free 11/20/2018 [facility] [place] Free 6.31 mg/dL Abnormal 3 Light Chains Ser [address] [place] [address] [phone] Lambda Free Light Chain 2.74 mg/dL Abnormal 4 [place]/Lambda Free Light Chain 2.30 Abnormal 5 Laboratory test 11/20/2018 [facility] TSH (Thyroid 7.09 High 0.34-5.[address] Stim Horm) mcIU/[place] [address] [phone] T3 Free 2.30 pg/mL Low 2.5-3.9 Free T4 (Free Thyroxine) 1.16 ng/dL High 0.61-1.12 T3 Total 51 ng/dL Low 87-178 Thyroperoxidase AB 0.20 IU/mL Normal <9 Thyroglobulin AB 0.0 IU/mL <4.0 Thyroid Stimulating Igg (Tsi) <1.0 TSIindex <=1.3 6 Laboratory test 08/18/2018 [facility] Magnesium 1.8 mg/dL Low 1.9-2.[address] [place] [address] [phone] Troponin-I (TnI) 0.01 ng/mL <0.04 7 TSH (Thyroid Stim Horm) 4.36 mcIU/mL Normal 0.34-5.60 Free T4 (Free Thyroxine) 1.16 ng/dL High 0.61-1.12 Comp Metabolic Panel 08/18/2018 [facility] Sodium 134 mmol/L Low 135-145 [address] [place] [address] [phone] Potassium 3.6 mmol/L Normal 3.5-5.0 Chloride 98 [...] >60 Egfr 34.9 >60 8 Inr/Protime 08/18/2018 [facility] Inr 1.85 High 0.82-1.[address] [place] [address] [phone] CBC Auto Diff 08/18/2018 [facility] White Blood 7.5 Normal 3.5 -10.[address] Count 10^3/[place] [address] [phone] Red Blood Count 2.96 10^6/uL Low 3.70-4.87 [...] Blood Cells % 0.0 Laboratory test 08/18/2018 [facility] Troponin-I (TnI) 0.01 ng/ mL <0.04 10 finding [address] [place] [address] [phone] Laboratory test 08/18/2018 [facility] Troponin-I (TnI) 0.01 ng/ mL <0.04 11 finding [address] [place] [address] [phone] Urinalysis 08/05/2018 [facility] Urine Color Yellow Profile [address] [place] [address] [phone] Urine Appearance Clear Urine Specific [place] 1.005 Low 1.010-1.030 Urine pH 6.0 Normal 5-9 Urine Urobilinogen Negative Negative Urine Ketones Negative Negative Urine Protein Negative Negative Urine Leukocytes 1+ Abnormal Negative Urine Blood Negative Negative Urine Nitrite Negative Negative Urine Bilirubin Negative Negative Urine Glucose Negative Negative Urine White Blood Cell Trace(0-5/hpf) Absent Urine Red Blood Cell Absent Absent Urine Bacteria Absent Absent Urine Culture And 08/05/2018 [facility] Urine Culture SEE RESULT [address] [place] [address] [phone] 1 Because ethnic data is not always [...] protein on serum electrophoresis. Test Performed by: [facility] [employer] [place] [address] Sighter: Mick Covington M.D. Ph.D.; IA# [id number] 3 REFERENCE VALUE 0.3300-1.94 4 REFERENCE VALUE 0.5700-2.63 5 Elevated free light chain ratios between 1.66 and 3.00 may occur due to polyclonal hypergammaglobulinemia or impaired renal clearance. An isolated increased free light chain ratio in this range should be interpreted with caution, and clinical correlation is recommended. REFERENCE VALUE 0.2600-1.65 Test Performed by: [facility] [place] [address] [address], [place] [address] Sighter: Mick Covington M.D. Ph.D.; CLIA# [id number] 6 Test Performed by: [facility] - [address] [address] Sighter: Mick Covington M.D. Ph.D.; CLIA# [id number] 7 Troponin-I testing on Plasma Separator Tubes (PST) has a known false positive rate of 0.20-0.40%. All positive troponins reflex immediately to secondary confirmatory testing. Using the readeo DxI 800 Access Immunoassay systems, the 99th [...] immediately to secondary confirmatory testing. Using the readeo DxI 800 Access Immunoassay systems, the 99th percentile upper reference limit was demonstrated to be < 0.03 ng/mL. 11 Troponin-I testing on Plasma Separator Tubes (PST) has a known false positive rate of 0.20-0.40%. All positive troponins reflex immediately to secondary confirmatory testing. Using the readeo DxI 800 Access Immunoassay systems, the 99th percentile upper reference limit was demonstrated to be < 0.03 ng/mL. 12 SEE RESULT BELOW Name: VERONICA BHAT : [address]: Nicole Guerra MD Acct: [id number] Unit: [id number] AGE: [id number] Location: [place] [address] Re08/06/18 SEX: F Status: ADM IN SPEC: [id number] LACEY: 08/05/[address]: Dinora CURTIS REQ: [id number] RECD: 08/05/18 STATUS: DAVID CARDENAS DR: Carlos A Quevedo MD PC _ SOURCE: URINE SPDESC: ORDERED: Urine Culture Procedure Result Reported Site Urine Culture Final 08/07/18- 0840 ML Few Enterobacteriacae; possible contamination. * ML - Main Lab . END OF REPORT DEPARTMENT OF PATHOLOGY, [address] [place] [address] Brendon Nicole M.D. Director [facility] # [id number] Procedures Date Code Description Status 01/09/2019 41306 EKG Tracing & Interpretation Completed 01/02/2019 43916 Cardioversion Completed 12/10/2018 22191 Carpal Tunnel Release Completed 12/10/201846588 Carpal Tunnel Release Completed 11/19/2018 55987 EKG Tracing & Interpretation Completed 11/03/2018 21184 EKG, Interpretation Only Completed 11/03/2018 60305 Cardioversion Completed 11/02/2018 40668 EKG, Interpretation Only Completed 09/25/2018 Injection, Carpal Tunnel Completed 09/25/2018 Inject/Drain Joint/Bursa Major W/O US Completed 08/20/2018 96616 EKG Tracing & Interpretation Completed 08/18/2018 92036 Cardioversion Completed 08/06/2018 87284 Moderate Sedation Services; Same Phys Intl 15 Mins; PT Completed >= 5 Years 08/06/2018 97484 EKG, Interpretation Only Completed 08/06/2018 14278 Cardioversion Completed 07/25/2018 58374 EKG Tracing & Interpretation Completed 02/21/2018 [id number] Colonoscopy Completed 04/19/2009 [id number] Colonoscopy Completed Medical Devices Description No Information Available Encounters Type Date Location Provider Dx Diagnosis Office Visit 01/09/2019 [facility] Talib Scott44.7 Left bundle- branch 8:45a Of Nathaniel Cisneros M.D. block, unspecified I48.0 Paroxysmal atrial fibrillation I25.10 Athscl heart disease of [place] coronary artery w/o ang pctrs Office Visit 01/02/2019 11:03a [facility] Jesus Alberto SCasey I48.92 Unspecified Of Nathaniel Sherman, atrial flutter FACC I44.7 Left bundle-branch block, unspecified I48.0 Paroxysmal atrial fibrillation I13.0 Hyp hrt & chr kdny dis w hrt fail and stg 1-4/unsp chr kdny D63.1 Anemia in chronic kidney disease I50.9 Heart failure, unspecified N18.9 Chronic kidney disease, unspecified I25.10 Athscl heart disease of [place] coronary artery w/o ang pctrs Z98.61 Coronary angioplasty status 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 Office Visit 11/27/2018 1:00p [facility]phrology Bob Reyes I12.9 Hypertensive MD Celia chronic kidney disease w stg 1-4/unsp chr kdny N18.4 Chronic kidney disease, stage 4 (severe) N17.9 Acute kidney failure, unspecified I10 Essential (primary) hypertension I48.0 Paroxysmal atrial fibrillation Office Visit 11/25/2018 10:15a [facility] Aaron F G56.01 Carpal tunnel at [place] MD Alex syndrome, right upper limb M19.011 Primary osteoarthritis, right shoulder S46.011A Strain of musc/tend the rotator cuff of right shoulder, init Office Visit 11/19/2018 10:45a [facility] Talib Medrano I48.0 Paroxysmal atrial Of Nathaniel Cisneros M.D. 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 Office Visit 11/13/2018 10:00a [facility] Nephrology Bob Reyes N18.4 Chronic kidney MD Celia disease, stage 4 (severe) I12.9 Hypertensive chronic kidney disease w stg 1-4/unsp chr kdny R60.0 Localized edema I48.0 Paroxysmal atrial fibrillation I50.33 Acute on chronic diastolic (congestive) heart failure D64.9 Anemia, unspecified [facility]91 Unspecified atrial 9:06a lo Murcia MD fibrillation Hospitalists M54.9 Dorsalgia, unspecified Office Visit 11/02/2018 11:46a [facility] Harvey PatriciaCasey I48.0 Paroxysmal atrial MauserAzeemDCasey fibrillation I50.30 Unspecified diastolic (congestive) heart failure R00.0 Tachycardia, unspecified D64.9 Anemia, unspecified R07.89 Other chest pain [facility] I48.91 Unspecified 9:06a lo Murcia M.D. atrial Hospitalists fibrillation M54.9 Dorsalgia, unspecified N18.4 Chronic kidney disease, stage 4 (severe) Office Visit 09/25/2018 2:30p [facility] Aaron Gomez S46.011A Strain of Orthopedics at MD Alex musc/tend the [place] rotator cuff of right shoulder, init M19.011 Primary osteoarthritis, right shoulder G56.01 Carpal tunnel syndrome, right upper limb S72.002D Fx unsp part of nk of perry boggs, subs for clos fx w routn heal Office Visit 08/20/2018 3:15p [facility] Talib Medrano Z95.2 Presence of Of Nathaniel Cisneros M.D. prosthetic heart valve I25.10 Athscl heart disease of [place] coronary artery w/o ang pctrs I48.0 Paroxysmal atrial fibrillation [facility], I50.33 Acute on chronic 9:41a ol Murcia M.D. diastolic Hospitalists (congestive) heart failure I48.91 Unspecified atrial fibrillation E83.42 Hypomagnesemia Office Visit 08/06/2018 [facility], I48.91 Unspecified 9:40a lo Murcia M.D. 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 disease of [place] coronary artery w/o ang pctrs Z95.2 Presence of prosthetic heart valve I48.0 Paroxysmal atrial fibrillation Assessments Date Code Description Provider 01/09/2019 I44.7 Left bundle-branch block, unspecified Talib Cisneros M.D. 01/09/2019 I48.0 Paroxysmal atrial fibrillation Talib Cisneros M.D. 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 01/02/2019 I48.92 Unspecified atrial flutter Jesus Alberto Sherman DO FACC 01/02/2019 I44.7 Left bundle-branch block, unspecified Jesus Alberto Sherman, DO FACC 01/02/2019 I48.0 Paroxysmal atrial fibrillation Jesus Alberto Sherman, DO FACC 01/02/2019 I13.0 Hypertensive heart and chronic kidney Jesus Alberto Sherman, DO FACBeth disease with heart failure and stage 1 through stage 4 chronic kidney disease, or unspecified chronic kidney disease 01/02/2019 D63.1 Anemia in chronic kidney disease Jesus Alberto Sherman DO FACC 01/02/2019 I50.9 Heart failure, unspecified Jesus Alberto Sherman, DO FACC 01/02/2019 N18.9 Chronic kidney disease, unspecified Jesus Alberto Sherman, DO FACC 01/02/2019 I25.10 Atherosclerotic heart disease of [place] Jesus Alberto Sherman, DO FACC coronary artery without angina pectoris 01/02/2019 Z98.61 Coronary angioplasty status Jesus Alberto Sherman DO FACC 01/02/2019 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 Sherman, DO FACC anticoagulants 12/25/2018 G56.01 Carpal tunnel syndrome, right upper limb Aaron Johnosn MD 12/25/2018 Z47.89 Encounter for other orthopedic aftercare Aaron Johnson MD 12/10/2018 G56.01 Carpal tunnel syndrome, right upper limb Aaron Johnson MD 12/10/2018 G56.01 Carpal tunnel syndrome, right upper limb KIRSTEN Aguirre 11/27/2018 I12.9 Hypertensive chronic kidney disease with Bob Yang MD stage 1 through stage 4 chronic kidney disease, or unspecified chronic kidney disease 11/27/2018 N18.4 Chronic kidney disease, stage 4 (severe) Bob Yang MD 11/27/2018 N17.9 Acute kidney failure, unspecified Bob Yang MD 11/27/2018 I10 Essential (primary) hypertension Bob Yang MD 11/27/2018 I48.0 Paroxysmal atrial fibrillation Bob Yang MD 11/25/2018 G56.01 Carpal tunnel syndrome, right upper limb Aaron Johnson MD 11/25/2018 M19.011 Primary osteoarthritis, right shoulder Aaron Johnson MD 11/25/2018 S46.011A Strain of muscle(s) and tendon(s) of the Aaron Johnson MD rotator cuff of rig 11/19/2018 I48.0 Paroxysmal atrial fibrillation Talib Cisneros M.D. 11/19/2018 I50.33 Acute on chronic diastolic (congestive) Talib Cisneros M.D. heart failure 11/19/2018 I25.10 Atherosclerotic heart disease of [place] Talib Cisneros M.D. coronary artery with 11/19/2018 Z95.2 Presence of prosthetic heart valve Talib Cisneros M.D. 11/13/2018 N18.4 Chronic kidney disease, stage 4 (severe) Bob Yang MD 11/13/2018 I12.9 Hypertensive chronic kidney disease with Bob Yang MD stage 1 through stage 4 chronic kidney disease, or unspecified chronic kidney disease 11/13/2018 R60.0 Localized edema Bob Yang MD 11/13/2018 I48.0 Paroxysmal atrial fibrillation Bob Yang MD 11/13/2018 I50.33 Acute on chronic diastolic (congestive) Bob Yang MD heart failure 11/13/2018 D64.9 Anemia, unspecified Bob Yang MD 11/03/2018 R94.31 Abnormal electrocardiogram [ECG] [EKG] Jesus Alberto Sherman DO [facility] 11/03/2018 I48.91 Unspecified atrial fibrillation Talib Cisneros M.D. 11/03/2018 I48.91 Unspecified atrial fibrillation Kerline Garza MD 11/03/2018 M54.9 Dorsalgia, unspecified Kerline Garza MD 11/02/2018 R94.31 Abnormal electrocardiogram [ECG] [EKG] Harvey Richards M.D. 11/02/2018 I48.0 Paroxysmal atrial fibrillation Harvey Richards M.D. 11/02/2018 I48.91 Unspecified atrial fibrillation Nicole Guerra M.D. 11/02/2018 I50.30 Unspecified diastolic (congestive) heart Harvey Richards M.D. failure 11/02/2018 M54.9 Dorsalgia, unspecified Nicole Guerra M.D. 11/02/2018 R00.0 Tachycardia, unspecified Harvey Richards M.D. 11/02/2018 N18.4 Chronic kidney disease, stage 4 (severe) Nicole Guerra M.D. 11/02/2018 D64.9 Anemia, unspecified Harvey Richards M.D. 11/02/2018 R07.89 Other chest pain Harvey Richards M.D. 09/25/2018 S46.011A Strain of muscle(s) and tendon(s) of the Aaron Johnson MD rotator cuff of rig 09/25/2018 M19.011 Primary osteoarthritis, right shoulder Aaron Johnson MD 09/25/2018 G56.01 Carpal tunnel syndrome, right upper limb Aaron Johnson MD 09/25/2018 S72.002D Fracture of unspecified part of neck of Aaron Johnson MD left femur, subseque 08/20/2018 Z95.2 Presence of prosthetic heart valve Talib Cisneros M.D. 08/20/2018 I25.10 Atherosclerotic heart disease of [place] Talib Cisneros M.D. coronary artery with 08/20/2018 I48.0 Paroxysmal atrial fibrillation Talib Cisneros M.D. 08/18/2018 I48.0 Paroxysmal atrial fibrillation Talib Cisneros M.D. 08/08/2018 I50.33 Acute on chronic diastolic (congestive) Nicole Guerra M.D. heart failure 08/08/2018 I48.91 Unspecified atrial fibrillation Nicole Guerra M.D. 08/08/2018 E83.42 Hypomagnesemia Nicole Guerra M.D. 08/07/2018 T81.31xD Disruption of external operation KIRSTEN Sutton (surgical) wound, not elsew 08/06/2018 R94.31 Abnormal electrocardiogram [ECG] [EKG] Harvey Richards M.D. 08/06/2018 I48.91 Unspecified atrial fibrillation Nicole Guerra M.D. 08/06/2018 I48.91 Unspecified atrial fibrillation Conchita Thompson M.D. 08/06/2018 I50.33 Acute on chronic diastolic (congestive) Nicole Guerra M.D. heart failure 08/06/2018 I25.10 Atherosclerotic heart disease of [place] Conchita Thompson M.D. coronary artery with 08/06/2018 D64.9 Anemia, unspecified Nicole Guerra M.D. 08/06/2018 E87.8 Other disorders of electrolyte and fluid Conchita Thompson M.D. balance, not elsewhere classified 08/06/2018 N18.3 Chronic kidney disease, stage 3 Nicole Guerra M.D. (moderate) 08/05/2018 I48.91 Unspecified atrial fibrillation KIRSTEN Mae 08/05/2018 I50.9 Heart failure, unspecified KIRSTEN Mae 08/05/2018 R74.8 Abnormal levels of other serum enzymes KIRSTEN Mae 08/05/2018 E83.42 Hypomagnesemia KIRSTEN Mae 08/05/2018 E87.1 Hypo-osmolality and hyponatremia KIRSTEN Mae 07/25/2018 I25.10 Atherosclerotic heart disease of [place] Talib Cisneros M.D. coronary artery with 07/25/2018 Z95.2 Presence of prosthetic heart valve Talib Cisneros M.D. 07/25/2018 I48.0 Paroxysmal atrial fibrillation Talib Cisneros M.D. 07/22/2018 T81.41xD Infection following a procedure, Aaron Johnson MD superficial incisional surg 07/22/2018 S72.012D Unspecified intracapsular fracture of Aaron Johnson MD left femur, subsequent Plan of Treatment Future Appointment(s):07/10/2019 9:45 am - Talib Cisneros M.D. at [facility]01/22/2019 1:30 pm - Aaron Johnson MD at [facility] at [id number]/09/2019 - Talib Cisneros M.D.I44.7 Left bundle- branch block, unspecifiedFollow up:6 dttjomV27.0 Paroxysmal atrial eyxfqpshewysD17.10 Atherosclerotic heart disease of [place] coronary artery without angina pectoris Functional Status Description No Information Available Mental Status Description No Information Available Referrals Description No Information Available
--- OUTSIDE RECORDS SUMMARY | 2019-01-25 18:44 | XMS REPORT | Continuity of Care Document ---
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 Medicine Sahil Pang MD - Internal Care Team Information Brake Holder [phone] Medicine Problems Active Problems Provider Date Aortic [...] Patient has never smoked Smoking Status Reviewed: 01/22/19 Patient has never smoked Exercise Type/Frequency Exercises rarely Allergies, Adverse Reactions, Alerts Description No Known Drug Allergies Medications Active Medications SIG Qnty Indications Ordering Date Provider Potassium Chloride 1 tab by mouth 30units Unknown 11/11/2018 twice a day 10Meq/50ML Solution Eliquis 1 tab po twice Unknown 07/16/2018 2.5mg Tablets daily Nitroglycerin 1 sl q5mins x3 as 25tabs Talib Medrano 10/17/2016 0.4mg needed for chest Sandoval Cisneros Tablets Sub pain Pantoprazole Sodium 1 by mouth every Unknown day 40mg Tablets DR Amlodipine Besylate 1 by mouth every Unknown day 10mg Tablets Lipitor 1 by mouth at Unknown 20mg Tablets bedtime Vitamin B12 1 by mouth [...] 1 by mouth every 30tabs Unknown day 50mcg Tablets Colace 1 po tid 180caps Unknown 100mg Capsules Folic Acid 1 po qd 90tabs Unknown 1mg Tablets Ferrous Sulfate 1 po qd 30tabs Unknown 325(65Fe) mg Tablets Aspirin 1 po qd Unknown 81mg [...] Available Vital Signs Date Vital Result Comment 01/22/2019 1:33pm Height 66 inches 5'6" Weight 195.00 lb Heart Rate 72 /min BP Systolic Sitting 114 mmHg BP Diastolic Sitting 70 mmHg Body Temperature 98.9 F Pain Level 0 BMI (Body Mass Index) 31.5 kg/m2 01/09/2019 8:24am Height 66 inches 5'6" Weight 186.50 lb with shoes Heart Rate 46 /min BP Systolic Sitting 110 mmHg Lue reg cuff BP Diastolic Sitting 62 mmHg Lue reg cuff Respiratory Rate 13 /min BMI (Body Mass Index) 30.1 kg/m2 Ejection Fraction 55-60% ECHO 07/07/2018 Results Test Acquired Date Facility Test Result H/L Range Note Neph Routine 11/20/2018 [facility] Total Protein 6 mg/dL [address] [place] [address] [phone] Creatinine Random Urine 19.84 mg/dL CBC Auto 11/20/2018 [facility] White Blood 5.4 10^3/uL Normal 3.5-10.[address] [place] [place] [address] [phone] Red Blood Count 3.23 10^6/uL Low 3.70-4.87 [...] Blood Cells % 0.0 Urinalysis Profile 11/20/2018 [facility] Urine Color Yellow [address] [place] [address] [phone] Urine Appearance Cloudy Urine Specific Russell 1.005 Low 1.010-1.030 Urine pH 7.0 Normal 5-9 Urine Urobilinogen Negative Negative Urine Ketones Negative Negative Urine Protein Negative Negative Urine Leukocytes Negative Negative Urine Blood Negative Negative Urine Nitrite Negative Negative Urine Bilirubin Negative Negative Urine Glucose Negative Negative Basic Metabolic 11/20/2018 [facility] Sodium 140 mmol/L Normal 135-[address] [place] [address] [phone] Potassium 4.1 mmol/L Normal 3.5-5.0 Chloride 102 mmol/L Normal 101-111 Co2 Carbon Dioxide 31 mmol/L Normal 22-32 Anion Gap 7 mmol/L Normal 2-11 Glucose 89 mg/dL Normal 70-100 Blood Urea Nitrogen 22 mg/dL Normal 6-24 Creatinine 1.67 mg/dL High 0.51-0.95 BUN/Creatinine Ratio 13.2 Normal 8-20 Calcium 9.1 mg/dL Normal 8.6-10.3 Egfr Non- 29.0 >60 Egfr 35.0 >60 1 Protein 11/20/2018 [facility] Total 6.5 g/dL 6.3 - Electrophoresis [address] Protein(Pep) 7.9 [place] [address] [phone] Albumin 3.4 g/dL 3.4-4.7 Alpha-1 Globulin 0.3 g/dL 0.1-0.3 Alpha-2 Globulin 1.0 g/dL 0.6-1.0 Beta Globulin 1.0 g/dL 0.7-1.2 Gamma Globulin 0.9 g/dL 0.6-1.6 Albumin/Globulin Ratio 1.13 Impression See Comment 2 [place]/Lambda Free 11/20/2018 [facility] Five [place] Free 6.31 mg/dL Abnormal 3 Light Chains Ser [address] [place] [address] [phone] Lambda Free Light Chain 2.74 mg/dL Abnormal 4 [place]/Lambda Free Light Chain 2.30 Abnormal 5 Laboratory test 11/20/2018 [facility] TSH (Thyroid 7.09 High 0.34-5.[address] Stim Horm) mcIU/[place] [address] [phone] T3 Free 2.30 pg/mL Low 2.5-3.9 Free T4 (Free Thyroxine) 1.16 ng/dL High 0.61-1.12 T3 Total 51 ng/dL Low 87-178 Thyroperoxidase AB 0.20 IU/mL Normal <9 Thyroglobulin AB 0.0 IU/mL <4.0 Thyroid Stimulating Igg (Tsi) <1.0 TSIindex <=1.3 6 Laboratory test 08/18/2018 [facility] Magnesium 1.8 mg/dL Low 1.9-2.[address] [place] [address] [phone] Troponin-I (TnI) 0.01 ng/mL <0.04 7 TSH (Thyroid Stim Horm) 4.36 mcIU/mL Normal 0.34-5.60 Free T4 (Free Thyroxine) 1.16 ng/dL High 0.61-1.12 Comp Metabolic Panel 08/18/2018 [facility] Sodium 134 mmol/L Low 135-[address] [place] [address] [phone] Potassium 3.6 mmol/L Normal 3.5-5.0 Chloride 98 [...] >60 Egfr 34.9 >60 8 Inr/Protime 08/18/2018 [facility] Inr 1.85 High 0.82-1.[address] [place] [address] [phone] CBC Auto Diff 08/18/2018 [facility] White Blood 7.5 Normal 3.5 -10.[address] Count 10^3/[place] [address] [phone] Red Blood Count 2.96 10^6/uL Low 3.70-4.87 [...] Blood Cells % 0.0 Laboratory test 08/18/2018 [facility] Troponin-I (TnI) 0.01 ng/ mL <0.04 10 finding [address] [place] [address] [phone] Laboratory test 08/18/2018 [facility] Troponin-I (TnI) 0.01 ng/ mL <0.04 11 finding [address] [place] [address] [phone] Urinalysis 08/05/2018 [facility] Urine Color Yellow Profile [address] [place] [address] [phone] Urine Appearance Clear Urine Specific Russell 1.005 Low 1.010-1.030 Urine pH 6.0 Normal 5-9 Urine Urobilinogen Negative Negative Urine Ketones Negative Negative Urine Protein Negative Negative Urine Leukocytes 1+ Abnormal Negative Urine Blood Negative Negative Urine Nitrite Negative Negative Urine Bilirubin Negative Negative Urine Glucose Negative Negative Urine White Blood Cell Trace(0-5/hpf) Absent Urine Red Blood Cell Absent Absent Urine Bacteria Absent Absent Urine Culture And 08/05/2018 [facility] Urine Culture SEE RESULT [address] [place] [address] [phone] 1 Because ethnic data is not always [...] protein on serum electrophoresis. Test Performed by: [place] [id number] Security Program Manager: Mick Covington M.D. Ph.D.; CLIA# [id number] 3 REFERENCE VALUE 0.3300-1.94 4 REFERENCE VALUE 0.5700-2.63 5 Elevated free light chain ratios between 1.66 and 3.00 may occur due to polyclonal hypergammaglobulinemia or impaired renal clearance. An isolated increased free light chain ratio in this range should be interpreted with caution, and clinical correlation is recommended. REFERENCE VALUE 0.2600-1.65 Test Performed by: [place] [address] Security Program Manager: Mick Covington M.D. Ph.D.; CLIA# [id number] 6 Test Performed by: [place] [id number] Security Program Manager: Mick Covington M.D. Ph.D.; CLIA# [id number] 7 Troponin-I testing on Plasma Separator Tubes (PST) has a known false positive rate of 0.20-0.40%. All positive troponins reflex immediately to secondary confirmatory testing. Using the Glio DxI 800 Access Immunoassay systems, the 99th [...] immediately to secondary confirmatory testing. Using the Glio DxI 800 Access Immunoassay systems, the 99th percentile upper reference limit was demonstrated to be < 0.03 ng/mL. 11 Troponin-I testing on Plasma Separator Tubes (PST) has a known false positive rate of 0.20-0.40%. All positive troponins reflex immediately to secondary confirmatory testing. Using the Glio DxI 800 Access Immunoassay systems, the 99th percentile upper reference limit was demonstrated to be < 0.03 ng/mL. 12 SEE RESULT BELOW Name: VERONICA BHAT : [address]: Nicole Guerra MD Acct: [id number] Unit: [id number] AGE: 87 Location: [place] [address] Re08/06/18 SEX: F Status: ADM IN SPEC: [id number] LACEY: 08/05/18 [facility] DR: Dinora CURTIS REQ: [id number] RECD: 08/05/18 STATUS: DAVID CARDENAS DR: Carlos A Quevedo MD PC _ SOURCE: URINE SPDESC: ORDERED: Urine Culture Procedure Result Reported Site Urine Culture Final 08/07/18- 0840 ML Few Enterobacteriacae; possible contamination. * ML - Main Lab . END OF REPORT DEPARTMENT OF PATHOLOGY, [address] [place] [address] Brendon Nicole M.D. Director [facility] # [id number] Procedures Date Code Description Status 01/09/2019 93430 EKG Tracing & Interpretation Completed 01/02/2019 41688 Cardioversion Completed 12/10/2018 20055 Carpal Tunnel Release Completed 12/10/2018 07468 Carpal Tunnel Release Completed 11/19/2018 75330 EKG Tracing & Interpretation Completed 11/03/2018 50480 EKG, Interpretation Only Completed 11/03/2018 22336 Cardioversion Completed 11/02/2018 49942 EKG, Interpretation Only Completed 09/25/2018 Injection, Carpal Tunnel Completed 09/25/2018 Inject/Drain Joint/Bursa Major W/O US Completed 08/20/2018 04243 EKG Tracing & Interpretation Completed 08/18/2018 45905 Cardioversion Completed 08/06/2018 78125 Moderate Sedation Services; Same Phys Intl 15 Mins; PT Completed >= 5 Years 08/06/2018 28160 EKG, Interpretation Only Completed 08/06/2018 28588 Cardioversion Completed 07/25/2018 20947 EKG Tracing & Interpretation Completed 02/21/2018 [id number] Colonoscopy Completed 04/19/2009 [id number] Colonoscopy Completed Medical Devices Description No Information Available Encounters Type Date Location Provider Dx Diagnosis Office Visit 01/09/2019 [facility] Talib Medrano I44.7 Left bundle- branch 8:45a Of Nathaniel Cisneros M.D. 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 I50.9 Heart failure, unspecified N18.9 Chronic kidney disease, unspecified I25.10 Athscl heart disease of [place] coronary artery w/o ang pctrs Z98.61 Coronary angioplasty status 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 Office Visit 11/27/2018 1:00p [facility] Nephrology Bob Reyes I12.9 Hypertensive MD Celia chronic kidney disease w stg 1-4/unsp chr kdny N18.4 Chronic kidney disease, stage 4 (severe) N17.9 Acute kidney failure, unspecified I10 Essential (primary) hypertension I48.0 Paroxysmal atrial fibrillation Office Visit 11/25/2018 10:15a [facility] Aaron F G56.01 Carpal tunnel at [facility] MD Alex syndrome, right upper limb M19.011 Primary osteoarthritis, right shoulder S46.011A Strain of musc/tend the rotator cuff of right shoulder, init Office Visit 11/19/2018 10:45a [facility] Talib Medrano I48.0 Paroxysmal atrial Of Nathaniel Cisneros M.D. 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 Office Visit 11/13/2018 10:00a [facility] Nephrology Bob Reyes N18.4 Chronic kidney MD Celia disease, stage 4 (severe) I12.9 Hypertensive chronic kidney disease w stg 1-4/unsp chr kdny R60.0 Localized edema I48.0 Paroxysmal atrial fibrillation I50.33 Acute on chronic diastolic (congestive) heart failure D64.9 Anemia, unspecified Office Visit 11/03/2018 [facility] Kerline I48.91 Unspecified atrial 9:06a Assoc,lo Garza MD fibrillation Hospitalists M54.9 Dorsalgia, unspecified Office Visit 11/02/2018 11:46a [facility] Harvey Saldana I48.0 Paroxysmal atrial Sandoval Richards fibrillation I50.30 Unspecified diastolic (congestive) heart failure R00.0 Tachycardia, unspecified D64.9 Anemia, unspecified R07.89 Other chest pain [facility] I48.91 Unspecified 9:06a lo Murcia M.D. atrial Hospitalists fibrillation M54.9 Dorsalgia, unspecified N18.4 Chronic kidney disease, stage 4 (severe) Office Visit 09/25/2018 2:30p [facility] Aaron F S46.011A Strain of Orthopedics at MD Alex musc/tend the [facility] rotator cuff of right shoulder, init M19.011 Primary osteoarthritis, right shoulder G56.01 Carpal tunnel syndrome, right upper limb S72.002D Fx unsp part of nk of perry boggs, subs for clos fx w routn heal Office Visit 08/20/2018 3:15p [facility] Talib Medrano Z95.2 Presence of Of Nathaniel Cisneros M.D. prosthetic heart valve I25.10 Athscl heart disease of [place] coronary artery w/o ang pctrs I48.0 Paroxysmal atrial fibrillation [facility], I50.33 Acute on chronic 9:41a lo Murcia M.D. diastolic Hospitalists (congestive) heart failure I48.91 Unspecified atrial fibrillation E83.42 Hypomagnesemia Office Visit 08/06[facility]2018 [facility], I48.91 Unspecified 9:40a lo Murcia M.D. 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 Dinora I48.91 Unspecified 9:39a Assoc,pc [place], [place] atrial Hospitalists fibrillation I50.9 Heart failure, unspecified R74.8 Abnormal levels of other serum enzymes E83.42 Hypomagnesemia E87.1 Hypo-osmolality and hyponatremia Office Visit 07/25/2018 11:45a [facility] Talib Medrano I25.10 Athscl heart Of Nathaniel Cisneros M.D. disease of [place] coronary artery w/o ang pctrs Z95.2 Presence of prosthetic heart valve I48.0 Paroxysmal atrial fibrillation Assessments Date Code Description Provider 01/22/2019 G56.01 Carpal tunnel syndrome, right upper limb Aaron Johnson MD 01/09/2019 I44.7 Left bundle-branch block, unspecified Talib Cisneros M.D. 01/09/2019 I48.0 Paroxysmal atrial fibrillation Talib Cisneros M.D. 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 01/02/2019 I48.92 Unspecified atrial flutter Jesus Alberto Sherman DO FACC 01/02/2019 I44.7 Left bundle-branch block, unspecified Jesus Alberto Sherman DO FACC 01/02/2019 I48.0 Paroxysmal atrial fibrillation Jesus Alberto Sherman DO FACC 01/02/2019 I13.0 Hypertensive heart and chronic kidney Jesus Alberto Sherman DO FACC disease with heart failure and stage 1 through stage 4 chronic kidney disease, or unspecified chronic kidney disease 01/02/2019 D63.1 Anemia in chronic kidney disease Jesus Alberto Sherman DO FACC 01/02/2019 I50.9 Heart failure, unspecified Jesus Alberto Sherman DO FACC 01/02/2019 N18.9 Chronic kidney disease, unspecified Jesus Alberto Sherman DO FACC 01/02/2019 I25.10 Atherosclerotic heart disease of [place] Jesus Alberto Sherman DO FACC coronary artery without angina pectoris 01/02/2019 Z98.61 Coronary angioplasty status Jesus Alberto Sherman DO FACC 01/02/2019 Z79.01 [facility] (current) use of Jesus Alberto Sherman DO FACC anticoagulants 12/25/2018 G56.01 Carpal tunnel syndrome, right upper limb Aaron Johnson MD 12/25/2018 Z47.89 Encounter for other orthopedic [...] failure 11/19/2018 I25.10 Atherosclerotic heart disease of [place] Talib Cisneros M.D. coronary artery with 11/19/2018 Z95.2 Presence of prosthetic heart valve Talib Cisneros M.D. 11/13/2018 N18.4 Chronic kidney disease, stage 4 (severe) Bob Yang MD 11/13/2018 I12.9 Hypertensive chronic kidney disease with Bob Yagn MD stage 1 through stage 4 chronic kidney disease, or unspecified chronic kidney disease 11/13/2018 R60.0 Localized edema Bob Yang MD 11/13/2018 I48.0 Paroxysmal atrial fibrillation Bob Yang MD 11/13/2018 I50.33 Acute on chronic diastolic (congestive) Bob Yang MD heart failure 11/13/2018 D64.9 Anemia, unspecified Bob Yang MD 11/03/2018 R94.31 Abnormal electrocardiogram [ECG] [EKG] Jesus Alberto Sherman DO [facility] 11/03/2018 I48.91 Unspecified atrial fibrillation Talib [...] M.D. 08/20/2018 I25.10 Atherosclerotic heart disease of [place] Talib Cisneros M.D. coronary artery with 08/20/2018 [...] failure 08/06/2018 I25.10 Atherosclerotic heart disease of [place] Conchita Thompson M.D. coronary artery with 08/06/2018 [...] Mae 07/25/2018 I25.10 Atherosclerotic heart disease of [place] Talib Cisneros M.D. coronary artery with 07/25/2018 Z95.2 Presence of prosthetic heart valve Talib Cisneros M.D. 07/25/2018 I48.0 Paroxysmal atrial fibrillation Talib Cisneros M.D. Plan of Treatment Future Appointment(s):07/10/2019 9:45 am - Talib Cisneros M.D. at [facility]01/22/2019 - Aaron Johnson MDG56.01 Carpal tunnel syndrome, right upper limbFollow up:Follow up: As needed Functional Status Description No Information Available Mental Status Description No Information Available Referrals Description No Information Available
[2019-01-25] MEDS ORDERED: Diltiazem IV push/loading dose 5 MG/ML 5 ML vial (25 mg) IV SLOW PU ONE (18:53)
--- NOTE | 2019-01-25 18:53 | ED ---
Dizziness - HPI Summary HPI Summary: 88 year old female presents to the ED with a chief complaint of dizziness starting this morning. Patient also reports chest pressure. She has a history of atrial fibrillation, HTN, HLD, CAD, COPD, and CHF. Patient has no history of smoking tobacco. - History Of Current Complaint Chief Complaint: EDDizziness Stated Complaint: DIZZY,SHAKEY,HEAVY BREATHING PER DAUGHTER Time Seen by Provider: 01/25/19 18:46 Hx Obtained From: Patient Onset/Duration: Still Present Timing: Constant Severity Initially: Mild Severity Currently: Mild Character: Dizzy Aggravating Factor(s): Nothing Alleviating Factor(s): Nothing Associated Signs And Symptoms: Positive: Chest Pain - pressure - Allergies/Home Medications Allergies/Adverse Reactions: Allergies Allergy/AdvReac Type Severity Reaction Status Date / Time No Known Allergies Allergy Verified 01/25/19 19:02 PMH/Surg Hx/FS Hx/Imm Hx Endocrine/Hematology History: Reports: Hx Anticoagulant Therapy, Hx Blood Transfusions, Hx Thyroid Disease, Hx Anemia - on iron Denies: Hx Diabetes Cardiovascular History: Reports: Hx Angina, Hx Atrial Fibrillation, Hx Congestive Heart Failure, Hx Coronary Artery Disease, Hx Hypercholesterolemia, Hx Hypertension, Hx Peripheral Vascular Disease, Hx Syncope, Hx Valvular Heart Disease Denies: Hx Myocardial Infarction, Hx Pacemaker/ICD Comment Only: Other Cardiovascular Problems/Disorders - stents, A-fib Respiratory History: Reports: Hx Chronic Bronchitis, Hx Chronic Obstructive Pulmonary Disease (COPD) Denies: Hx Asthma GI History: Reports: Hx Irritable Bowel - w/ constipation, Other GI Disorders - constipation Denies: Hx Gastrointestinal Bleed, Hx Hiatal Hernia, Hx Ulcer History: Reports: Other Problems/Disorders - musa placed in fdc Denies: Hx Chronic Renal Failure, Hx Kidney Stones, Hx Renal Disease Musculoskeletal History: Reports: Hx Arthritis - osteoarhtritis, Hx Back Problems, Hx Orthopedic Injury, Other Musculoskeletal History - HAMMER TOE LEFT SECOND TOE-repaired, carpel tunnel surgery Denies: Hx Osteoporosis Sensory History: Reports: Hx Cataracts - LENS IMPLANTS 2011, Hx Contacts or Glasses - not w/pt, Hx Vision Problem, Other Sensory Impairments - dry eye Denies: Hx Hearing Aid Opthamlomology History: Reports: Hx Cataracts - LENS IMPLANTS 2011, Hx Contacts or Glasses - not w/pt, Hx Vision Problem, Other Sensory Impairments - dry eye Neurological History: Denies: Hx Dementia, Hx Seizures, Hx Transient Ischemic Attacks (TIA) Psychiatric History: Denies: Hx Anxiety, Hx Depression, Hx Panic Disorder - Cancer History Hx Chemotherapy: No Hx Radiation Therapy: No - Surgical History Surgery Procedure, Year, and Place: AORTIC valve replacement, 2012,. , 1964, [facility]. Cataract surgery, 2011, [facility], [place] LEFT [facility]OT. cardiac catherization with cardiac stent to RCA October 2016. cardioversions 2014,2015, 08/2016, 05/30/18. Carpel tunnel surgery 12/2018. left hip hemiarthroplasty surgery 04/2018. left hip revision 06/2018 Hx Anesthesia Reactions: No - Immunization History Date of Influenza Vaccine: 12/25 Infectious Disease History: No Infectious Disease History: Denies: Hx Clostridium Difficile, Hx Hepatitis, Hx Human Immunodeficiency Virus (HIV), Hx of Known/Suspected MRSA, Hx Shingles, Hx Tuberculosis, Hx Known/ Suspected VRE, Hx Known/Suspected VRSA, History Other Infectious Disease, Traveled Outside the [place] in Last 30 Days - Family History Known Family History: Positive: Hypertension - Social History Alcohol Use: None Hx Substance Use: No Substance Use Type: Reports: None Hx Tobacco Use: No Smoking Status (MU): Never Smoked Tobacco Have You Smoked in the Last Year: No Review of Systems Negative: Fever Positive: Chest Pain Neurological: Other - dizziness All Other Systems Reviewed And Are Negative: Yes Physical Exam - Summary Physical Exam Summary: Appearance: The patient is well-nourished in no acute distress and in no acute pain. Skin: The skin is warm and dry, and skin color reflects adequate perfusion. HEENT: The head is normocephalic and atraumatic. The pupils are equal and reactive. The conjunctivae are clear and without drainage. Nares are patent and without drainage. Mouth reveals moist mucous membranes, and the throat is without erythema and exudate. The external ears are intact. The ear canals are patent and without drainage. The tympanic membranes are intact. Neck: The neck is supple with full range of motion and non-tender. There are no carotid bruits. There is no neck vein distension. Respiratory: Chest is non-tender. Lungs are clear to auscultation and breath sounds are symmetrical and equal. Cardiovascular: Heart is irregularly irregular and tachycardic. There is no murmur or rub auscultated. There is no peripheral edema and pulses are symmetrical and equal. Abdomen: The abdomen is soft and non-tender. There are normal bowel sounds heard in all four quadrants and there is no organomegaly palpated. Musculoskeletal: There is no back tenderness noted. Extremities are non-tender with full range of motion. There is good capillary refill. There is no peripheral edema or calf tenderness elicited. Neurological: Patient is alert and oriented to person, place and time. The patient has symmetrical motor strength in all four extremities. Cranial nerves are grossly intact. Deep tendon reflexes are symmetrical and equal in all four extremities. Psychiatric: The patient has an appropriate affect and does not exhibit any anxiety or depression. Triage Information Reviewed: Yes Vital Signs On Initial Exam: Initial Vitals Temp Pulse Resp BP Pulse Ox 97.7 F 129 19 101/65 99 01/25/19 18:35 01/25/19 18:35 01/25/19 18:35 01/25/19 18:35 01/25/19 18:35 Vital Signs Reviewed: Yes Procedures - Sedation Patient Received Moderate/Deep Sedation with Procedure: No Diagnostics - Vital Signs Vital Signs Temp Pulse Resp BP Pulse Ox 01/25/19 18:35 97.7 F 129 19 101/65 99 - Laboratory Result Diagrams: 01/25/19 19:15 01/25/19 19:15 Lab Statement: Any lab studies that have been ordered have been reviewed, and results considered in the medical decision making process. - EKG 1836 Cardiac Rate: Tachycardia - 101 EKG Rhythm: Atrial Flutter Summary of EKG Findings: Atrial flutter at 101 bpm with predominant 2:[address] Eaton reviewed and interpreted this EKG. Dizzy Course/Dx - Course Course Of Treatment: Ms. Sherwood came in symptomatic with an atrial fibrillation with rapid ventricular response. She has had this before and been cardioverted out of it. She was recently hospitalized for separate episode and had some bradycardic activity on the monitor. Her Toprol-XL was stopped at that time and amlodipine was started. She is still taking amiodarone and pradaxa. She was nontoxic in appearance but tired. She was given diltiazem and slowed down nicely. She began to speed up again and diltiazem drip was started. I spoke with the hospitalist who recommended that I speak with Dr. Lees. He recommended overnight admission for cardioversion. - Diagnoses Provider Diagnoses: Atrial fibrillation with rapid ventricular response Discharge ED - Sign-Out/Discharge Documenting (check all that apply): Patient Departure - Discharge Plan Condition: Stable Disposition: ADMITTED TO [facility] Referrals: Susy Quevedo MD [Primary Care Provider] - - Billing Disposition and Condition Condition: STABLE Disposition: Admitted to [facility] - Attestation Statements Document Initiated by Scribe: Yes Documenting Scribe: Felipe Pelletier Provider For Whom Marcos is Documenting (Include Credential): Leeroy Eaton MD. Scribe Attestation: Felipe Scott, scribed for Leeroy Eaton MD. on 01/25/19 at 2056. Scribe Documentation Reviewed: Yes Provider Attestation: The documentation as recorded by the scribe, Felipe Pelletier accurately reflects the service I personally performed and the decisions made by me, Leeroy Eaton MD. Status of Scribe Document: Viewed
[2019-01-25 19:20] LABS: ABS Lymphocytes 0.9 10^3/ul (1.0-4.8); ABS Monocytes 0.7 10^3/ul (0-0.8); ABS Neutrophils 3.9 10^3/ul (1.5-7.7); Eosinophil % 0.8 %; Hematocrit 32 % (35-47); Hemoglobin 10.7 g/dL (12.0-16.0); Lymphocyte % 15.9 %; Mean Corpuscular HGB Conc 33 g/dL (31-36); Mean Corpuscular Hemoglobin 32 pg (27-31); Mean Corpuscular Volume 98 fL (80-97); Mean Platelet Volume 7.4 fL (7.4-10.4); Platelet Count 183 10^3/uL (150-450); Red Cell Distribution Width 15 % (10-15); White Blood Count 5.5 10^3/uL (3.5-10.8)
[2019-01-25 19:26] LABS: INR 1.87 (0.82-1.09)
[2019-01-25 19:38] LABS: Albumin 3.7 g/dL (3.2-5.2); Albumin/Globulin Ratio 1.4 (1-3); BUN/Creatinine Ratio 14.9 (8-20); Calcium 9.2 mg/dL (8.6-10.3); EGFR African American 30.6 (>60); EGFR Non-African American 25.3 (>60); Globulin 2.6 g/dL (2-4); Magnesium 1.9 mg/dL (1.9-2.7); Potassium 3.8 mmol/L (3.5-5.0); Total Bilirubin 0.6 mg/dL (0.2-1.0); Total Protein 6.3 g/dL (6.4-8.9)
[2019-01-25 19:40] LABS: Troponin I 0.03 ng/mL (<0.04)
[2019-01-25] MEDS ORDERED: Diltiazem IV BAG* D5W Premix 125 MG/125 ML BAG IV ONE (19:47)
[2019-01-25 20:26] LABS: TSH (Thyroid Stimulating Horm) 2.55 mcIU/mL (0.34-5.60)
--- NOTE | 2019-01-25 20:56 | HP ---
History of Present Illness - History of Present Illness Reason for Visit: dizziness History of Present Illness: 88 year old female with history of Afib s/p multiple cardioversions, s/p AVR , HFpEF who presented with complaints of dizziness. She was recently in the hospital for indigestion, and at the time, it appears that she was taken off her metoprolol for asymptomatic bradycardia ( HR 40s). She returns with dizziness and was found to be in RVR. Pt was started on cardizem drip in the ED. Cardiology was called and is planning for cardioversion in the am. - Past Medical History Cardiac: AFIB, CAD, CHF, HTN, Hyperlipidemia, Aortic stenosis Gastrointestinal: Constipation Endocrine: Hypothyroidism - Past Family History Family History: CAD, Hyperlipidemia, Hypertension - Past Social History Alcohol: None Drugs: None Lives: With Family Review of Systems - Measurements Intake and Output: Intake and Output Last 24 Hours 01/23/19 01/24/19 01/25/19 01/26/19 06:59 06:59 06:59 06:59 Weight 182 lb Objective Active Medications: Diltiazem/Dextrose (Cardizem Iv D5w Bag* Premix) 125 mg in 125 mls @ 5 mls/hr IV ED ONCE ONE Stop: 01/26/19 20:46 Last Admin: 01/25/19 20:02 Dose: 5 mls/hr Vital Signs - 8 hr 01/25/19 01/25/19 01/25/19 18:35 18:45 19:00 Temperature 97.7 F Pulse Rate 129 Respiratory 19 14 19 Rate Blood Pressure 101/65 (mmHg) O2 Sat by Pulse 99 Oximetry 01/25/19 01/25/19 01/25/19 19:22 19:31 19:52 Temperature Pulse Rate 92 87 94 Respiratory 23 4 16 Rate Blood Pressure 106/73 128/62 138/87 (mmHg) O2 Sat by Pulse 95 98 98 Oximetry 01/25/19 01/25/19 01/25/19 20:00 20:16 20:22 Temperature Pulse Rate 98 122 107 Respiratory 13 20 14 Rate Blood Pressure 139/91 150/97 (mmHg) O2 Sat by Pulse 97 98 95 Oximetry Oxygen Devices in Use Now: None Appearance: NID Eyes: No Scleral Icterus, PERRLA Ears/Nose/Mouth/Throat: Mucous Membranes Moist Neck: NL Appearance and Movements; NL JVP, Trachea Midline Respiratory: Symmetrical Chest Expansion and Respiratory Effort, Clear to Auscultation, Clear to Percussion Cardiovascular: NL Sounds; No Murmurs; No JVD, No Edema, - - tachycardic, irregular Abdominal: NL Sounds; No Tenderness; No Distention, No Hepatosplenomegaly Lymphatic: No Cervical Adenopathy Extremities: No Edema Skin: No Rash or Ulcers Neurological: Alert and Oriented x 3, NL Sensation, NL Gait Result Diagrams: 01/25/19 19:15 01/25/19 19:15 Assess/Plan/Problems-Billing Assessment: - Patient Problems (1) Atrial fibrillation with rapid ventricular response Current Visit: No Status: Acute Code(s): I48.91 - UNSPECIFIED ATRIAL FIBRILLATION SNOMED Code(s): 057214245594005 Comment: hx of multiple cardioversions. Currently on amiodarone at home. Metoprolol was stopped recently. Cardiology consulted and planning on cardioversion tomorrow. NPO at midnight cont eliquis and cardizem drip (2) Coronary artery disease Current Visit: No Status: Acute Code(s): I25.10 - ATHSCL HEART DISEASE OF [place] CORONARY ARTERY W/O ANG PCTRS SNOMED Code(s): 92150692 Comment: - Continue aspirin, atorvastatin (3) CKD (chronic kidney disease) stage 3, GFR 30-59 ml/min Current Visit: No Status: Acute Code(s): N18.3 - CHRONIC KIDNEY DISEASE, STAGE 3 (MODERATE) SNOMED Code(s): 596383854 Comment: -at baseline (4) DVT prophylaxis Current Visit: No Status: Acute Code(s): YTI2975 - SNOMED Code(s): 032674410 Comment: - Eliquis (5) Heart failure with preserved ejection fraction Current Visit: No Status: Acute Code(s): I50.30 - UNSPECIFIED DIASTOLIC ( CONGESTIVE) HEART FAILURE SNOMED Code(s): 504467082 Comment: - no evidence of acute exacerbation -continue home lasix (6) Hypertension Current Visit: No Status: Acute Code(s): I10 - ESSENTIAL (PRIMARY) HYPERTENSION SNOMED Code(s): 26638946 Comment: -metoprolol stopped at her last admission -amlodipine was increased to 10 mg (7) Hypothyroidism Current Visit: No Status: Acute Code(s): E03.9 - HYPOTHYROIDISM, UNSPECIFIED SNOMED Code(s): 10786912 Comment: Continue levothyroxine 12.5 (8) Full code status Current Visit: No Status: Acute Code(s): Z78.9 - OTHER SPECIFIED HEALTH STATUS SNOMED Code(s): 250557447 Comment: (9) Aortic stenosis Current Visit: No Status: Acute Priority: High Code(s): I35.0 - NONRHEUMATIC AORTIC (VALVE) STENOSIS SNOMED Code(s): 16908792 Comment: s/p valve replacement (10) HLD (hyperlipidemia) Current Visit: No Status: Acute Code(s): E78.5 - HYPERLIPIDEMIA, UNSPECIFIED SNOMED Code(s): 19795167 Comment: - Continue atorvastatin.
[2019-01-25] MEDS ORDERED: Nitroglycerin TAB 0.4 MG* 0.4 MG TAB SL PRN (20:58)
[2019-01-25] MEDS ORDERED: Diltiazem IV BAG* D5W Premix 125 MG/125 ML BAG IV SCH (23:00)
[2019-01-25] MEDS: Docusate CAP* 100 MG PO SCH (23:46)
[2019-01-25] MEDS: Apixaban* 2.5 MG TAB PO SCH (23:46)
[2019-01-26 05:07] LABS: ABS Eosinophils 0.1 10^3/ul (0-0.6); ABS Lymphocytes 1.3 10^3/ul (1.0-4.8); ABS Monocytes 0.7 10^3/ul (0-0.8); ABS Neutrophils 2.7 10^3/ul (1.5-7.7); Hematocrit 30 % (35-47); Hemoglobin 10.1 g/dL (12.0-16.0); Lymphocyte % 27.7 %; Mean Corpuscular HGB Conc 34 g/dL (31-36); Mean Corpuscular Hemoglobin 33 pg (27-31); Mean Corpuscular Volume 97 fL (80-97); Mean Platelet Volume 7.2 fL (7.4-10.4); Nucleated Red Blood Cells % 0.1; Platelet Count 164 10^3/uL (150-450); Red Blood Count 3.07 10^6 /uL (3.70-4.87); Red Cell Distribution Width 14 % (10-15); White Blood Count 4.8 10^3/uL (3.5-10.8)
[2019-01-26 05:08] LABS: INR 2.08 (0.82-1.09)
[2019-01-26 05:15] LABS: Calcium 9.1 mg/dL (8.6-10.3); Magnesium 1.9 mg/dL (1.9-2.7); Potassium 3.3 mmol/L (3.5-5.0)
[2019-01-26 05:21] LABS: BUN/Creatinine Ratio 14.9 (8-20); EGFR African American 33.2 (>60); EGFR Non-African American 27.4 (>60)
[2019-01-26] MEDS: Levothyroxine TAB* 50 MCG TAB PO SCH (06:14)
[2019-01-26] MEDS ORDERED: Potassium Chloride* LIQUID 20 MEQ/15 ML UDC PO SCH (09:00)
[2019-01-26] MEDS ORDERED: Furosemide TAB* 40 MG PO SCH (09:00)
[2019-01-26] MEDS: Amiodarone TAB* 200 MG PO SCH (09:36)
[2019-01-26] MEDS: Apixaban* 2.5 MG TAB PO SCH ×2 (09:36→20:48)
[2019-01-26] MEDS: Pantoprazole TAB * 40 MG TAB PO SCH (09:36)
[2019-01-26] MEDS: amLODIPine TAB* 5 MG PO SCH (09:37)
[2019-01-26] MEDS: Docusate CAP* 100 MG PO SCH ×3 (09:37→20:48)
[2019-01-26] MEDS: Aspirin EC TAB* 81 MG TAB.EC PO SCH (09:37)
[2019-01-26] MEDS ORDERED: Potassium Chlor TAB* 10 MEQ TAB.ER PO ONE (10:02)
[2019-01-26] MEDS ORDERED: Magnesium Sulfate 1 GM IV* 1 GM/100 ML BAG IV ONE (10:13)
[2019-01-26] MEDS: KCL 20 MEQ/100 ML IVPREMIX* 20 MEQ/100 ML BAG IV SCH ×2 (10:15→13:38)
--- NOTE | 2019-01-26 10:26 | PN ---
Subjective Date of Service: 01/26/19 Interval History: called by nursing patient c/o sharp jabbing left sided chest pain that lasted approximately 15 minutes. Nursing also reports that the patient is having vtach on the monitor. EKG ordered, will order Troponin 915- patient evaluated at the bedside chest pain is resolved, did report Patient continues to have multiple pvc on the monitor, cardizem found to not be infusion when evaluating the patient at the bedside. Nursing reports not infusion for approx 1 hour. Patient currently denies chest pain or shortness of breath. denies abd pain n/v /d. denies fever or chills. labs reviewed potassium 3.3 - will replace magnesium 1.9 - will given 1 gram to make magnesium above 2. Family History: Unchanged from Admission Social History: Unchanged from Admission Past Medical History: Unchanged from Admission Objective Active Medications: Amiodarone HCl (Cordarone Tab*) 300 mg PO DAILY [facility] Last Admin: 01/26/19 09:36 Dose: 300 mg Amlodipine Besylate (Norvasc Tab*) 10 mg PO DAILY [facility] Last Admin: 01/26/19 09:37 Dose: 10 mg Apixaban (Eliquis*) 2.5 mg PO BID [facility] Last Admin: 01/26/19 09:36 Dose: 2.5 mg Aspirin (Aspirin Ec Tab*) 81 mg PO QAM [facility] Last Admin: 01/26/19 09:37 Dose: 81 mg Atorvastatin Calcium (Lipitor*) 20 mg PO DAILY@1700 [facility] Docusate Sodium (Colace Cap*) 100 mg PO TID [facility] Last Admin: 01/26/19 09:37 Dose: 100 mg Furosemide (Lasix Tab*) 40 mg PO QAM [facility] Last Admin: 01/26/19 09:36 Dose: 40 mg Diltiazem/Dextrose (Cardizem Iv D5w Bag* Premix) 125 mg in 125 mls @ 5 mls/hr IV .PER PROTOCOL [facility]; Protocol Potassium Chloride (Potassium Chloride 20 Meq/100 Ml Ivpremix*) 20 meq in 100 mls @ 50 mls/hr IV Q2H [facility] Stop: 01/26/19 14:59 Last Admin: 01/26/19 10:15 Dose: 50 mls/hr Magnesium Sulfate/Dextrose (Magnesium Sulfate 1 Gm Iv*) 1 gm in 100 mls @ 200 mls/hr IV ONCE ONE Stop: 01/26/19 10:42 Levothyroxine Sodium (Synthroid Tab*) 50 mcg PO DAILY@0600 [facility] Last Admin: 01/26/19 06:14 Dose: 50 mcg Nitroglycerin (Nitroglycerin Tab 0.4 Mg*) 0.4 mg SL Q5M PRN PRN Reason: ANGINA Pantoprazole Sodium (Protonix Tab*) 40 mg PO DAILY [facility] Last Admin: 01/26/19 09:36 Dose: 40 mg Vital Signs - 8 hr 01/26/19 01/26/19 01/26/19 02:49 03:15 03:49 Temperature 97.2 F Pulse Rate Respiratory Rate Blood Pressure 131/74 115/61 (mmHg) O2 Sat by Pulse Oximetry 01/26/19 01/26/19 01/26/19 04:50 05:11 06:49 Temperature Pulse Rate Respiratory Rate Blood Pressure 145/71 146/78 112/62 (mmHg) O2 Sat by Pulse Oximetry 01/26/19 01/26/19 07:30 08:49 Temperature 98 F Pulse Rate 87 Respiratory 20 Rate Blood Pressure 119/56 (mmHg) O2 Sat by Pulse 100 Oximetry Oxygen Devices in Use Now: None Eyes: No Scleral Icterus Ears/Nose/Mouth/Throat: Clear Oropharnyx, Mucous Membranes Moist Neck: NL Appearance and Movements; NL JVP, Trachea Midline Respiratory: Symmetrical Chest Expansion and Respiratory Effort, Clear to Auscultation Cardiovascular: No Edema, - - irregular rate, no murmurs, no JVD Abdominal: NL Sounds; No Tenderness; No Distention Extremities: No Edema, No Clubbing, Cyanosis Skin: No Rash or Ulcers Neurological: Alert and Oriented x 3 Nutrition: - - npo Result Diagrams: 01/26/19 04:33 01/26/19 04:33 Assess/Plan/Problems-Billing Assessment: - Patient Problems (1) Atrial fibrillation with rapid ventricular response Current Visit: No Status: Acute Code(s): I48.91 - UNSPECIFIED ATRIAL FIBRILLATION SNOMED Code(s): 807302363166293 Comment: hx of multiple cardioversions. Currently on amiodarone at home. Metoprolol was stopped recently. -Cardiology consulted-cardioversion completed cont eliquis and amiodarone - talked to Dr. Cisneros - Toby to discharge home tomorrow - continue current medications and will follow up next week for pacemaker placement (2) Hypokalemia Current Visit: No Status: Acute Priority: High Onset Date: 01/25/14 Code (s): E87.6 - HYPOKALEMIA SNOMED Code(s): 87724095 Comment: Potassium 3.3 today - potassium given - will repeat bmp in the AM (3) CKD (chronic kidney disease) stage 3, GFR 30-59 ml/min Current Visit: No Status: Acute Code(s): N18.3 - CHRONIC KIDNEY DISEASE, STAGE 3 (MODERATE) SNOMED Code(s): 008779965 Comment: -at baseline (4) Coronary artery disease Current Visit: No Status: Acute Code(s): I25.10 - ATHSCL HEART DISEASE OF [place] CORONARY ARTERY W/O ANG PCTRS SNOMED Code(s): 35208415 Comment: - Continue aspirin, atorvastatin (5) HLD (hyperlipidemia) Current Visit: No Status: Acute Code(s): E78.5 - HYPERLIPIDEMIA, UNSPECIFIED SNOMED Code(s): 23835296 Comment: - Continue atorvastatin. (6) HTN (hypertension) Current Visit: No Status: Acute Code(s): I10 - ESSENTIAL (PRIMARY) HYPERTENSION SNOMED Code(s): 98629970 Comment: - Stable (7) DVT prophylaxis Current Visit: No Status: Acute Code(s): XZZ2901 - SNOMED Code(s): 456732348 Comment: - Eleuterio (8) Full code status Current Visit: No Status: Acute Code(s): Z78.9 - OTHER SPECIFIED HEALTH STATUS SNOMED Code(s): 148855294 Comment:
[2019-01-26] MEDS ORDERED: Flumazenil* 0.1 MG/ML 5 ML MDV ONE (15:04)
[2019-01-26] MEDS ORDERED: Naloxone* 0.4 MG/ML 1 ML VIAL ONE (15:04)
[2019-01-26] MEDS ORDERED: fentaNYL* 50 MCG/ML 2 ML VIAL (100 MCG VIAL) ONE (15:04)
[2019-01-26] MEDS ORDERED: Midazolam* 1 MG/ML 5 ML VIAL (5 MG) ONE (15:04)
--- NOTE | 2019-01-26 16:08 | CONS ---
CC: Dr. Quevedo * CARDIOLOGY CONSULTATION: DATE OF CONSULT: 01/26/19 INDICATION FOR CONSULTATION: Atrial fibrillation, coronary artery disease. HISTORY OF PRESENT ILLNESS: The patient is an 88-year-old female with a long history of paroxysmal atrial fibrillation and coronary artery disease, who was admitted to the hospital because of shortness of breath, fatigue, and palpitations. The patient has had crescendo episodes of atrial fibrillation over the last 6 months. She has had cardioversion once or twice a month for the past 6 months. Her amiodarone has been slowly increasing to help maintain normal sinus rhythm. The patient was recently admitted to the hospital on . At that time, she was in atrial fibrillation. She did undergo a cardioversion by Dr. Richards. She also had a stress test done at that time which showed a moderate area of inferolateral ischemia, but on attenuation corrected images, this was completely normal. Her calculated ejection fraction was 70%. Her TID was 1.18. Overall, the patient feels reasonably well when she is in normal sinus rhythm. She does not have any angina. She does not have any significant shortness of breath. She denies any orthopnea or PND. When she gets into atrial fibrillation, she feels short of breath, has decreased energy, and does feel palpitations. PAST MEDICAL HISTORY: Significant for hypertension, paroxysmal atrial fibrillation, aortic valve replacement, coronary artery disease, diastolic dysfunction with congestive heart failure. PAST SURGICAL HISTORY: Aortic valve replacement in 2012, section years ago, colonoscopy, coronary stenting in 2016. At that time, a cardiac catheterization showed a distal left main stenosis of 30%, LAD was normal, circumflex was normal, right coronary artery had a proximal 90% stenosis which was stented with a 3.5 x 60 mm bare metal stent. Her most recent echocardiogram was done at [facility] in June 2018, at that time her ejection fraction was 50% to 55%, her aortic valve replacement was functioning normally. She had no mitral disease. She had mild to moderate tricuspid regurgitation. Stress test on 01/16/19 is as above. OUTPATIENT MEDICATIONS: 1. Potassium 20 mEq twice a day. 2. Eliquis 2.5 mg b.i.d. 3. Lasix 40 mg a day. 4. Aspirin 81 mg a day. 5. Iron tablets. 6. Colace. 7. Levothyroxine 50 mcg a day. 8. Metoprolol tartrate 50 mg b.i.d. 9. Amiodarone 300 mg a day. 10. Magnesium 400 mg a day. 11. Lipitor 40 mg a day. ALLERGIES: No known drug allergies. FAMILY HISTORY: Father had a hypertension and of a stroke. Mother of a stroke. SOCIAL HISTORY: She is retired. She lives with her . She denied tobacco or alcohol use. She does not get any regular exercise. She drinks 1 cup of decaf coffee a day. REVIEW OF SYSTEMS: Negative for fevers and chills. Negative for changes in bowel or bladder habits. Mild increase in weight. Other 12-point review is unremarkable. PHYSICAL EXAM: Height is 5 feet 6 inches, weight is 180 pounds, temperature 98 , heart rate is 100, blood pressure 112/62, respiratory rate is 20, oxygen saturation 100% on 2 L. Sclerae anicteric. Oropharynx is pink without erythema. Carotids are 2+ with soft bilateral bruits. JVD is normal. Thyroid is normal. Cardiac Exam: S1, S2 with a 1/6 systolic ejection murmur heard best at the left upper sternal border. PMI is normal. Lungs are clear to auscultation bilaterally. There is no dullness to percussion. Abdomen is soft, nontender, nondistended with normoactive bowel sounds. Extremities show no edema. She has 2+ pulses throughout. The patient is awake, alert and oriented. She moves all 4 extremities equally. DIAGNOSTIC STUDIES/LAB DATA: CBC: White count 4.8, hemoglobin 10, hematocrit 30, platelet count 164. Chemistries: Potassium 3.3 and has been replaced, BUN 26, creatinine 1.5 and that is her baseline. BNP is 533. Troponins are negative x3. TSH 2.5. EKG demonstrates atrial fibrillation with poor R-wave progression. Her EKG back on 01/09/19 showed sinus bradycardia at 50 beats per minute with poor R-wave progression. The patient has progressive bradycardia over the years. IMPRESSION AND PLAN: This is an 88-year-old female with a history of aortic valve replacement, coronary artery disease, frequent atrial fibrillation, who comes into the hospital with atrial fibrillation. At this point, I think the patient always feels better when she is in normal sinus rhythm. The patient will undergo cardioversion in the near future. 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 I think pacemaker would be beneficial for this patient for maximization of medical therapy. Again, I would like to increase her beta-emmett therapy; however, it is difficult to do this because of her bradycardia. The risks and benefits of this were described in detail and the patient is willing to proceed , again cardioversion now, pacemaker in the next week or so. [id number]/[facility] #: [id number] DONNA
[2019-01-26] MEDS ORDERED: Atorvastatin* 10 MG TAB PO SCH (17:00)
--- NOTE | 2019-01-26 19:01 | CARD ---
CC: Dr. Quevedo * CARDIOVERSION NOTE: DATE OF PROCEDURE: 01/26/19 - ROOM #[id number] PROCEDURE: Cardioversion. INDICATION: Atrial fibrillation. HISTORY: The patient is an 88-year-old female with a history of paroxysmal atrial fibrillation, history of coronary artery disease, aortic valve replacement, who came to the hospital because of feeling fatigue, short of breath, and palpitations. She was found to be in atrial fibrillation. The patient is on chronic anticoagulation. Cardioversion was recommended. DESCRIPTION OF PROCEDURE: The patient was in a fasting state. Informed consent had been obtained prior to the procedure. All labs were reviewed. The patient was given 3 mg of Versed and 50 mcg of fentanyl. The patient was cardioverted with 150 joules of synchronized biphasic energy. The patient converted from atrial fibrillation to normal sinus rhythm. The patient tolerated the procedure well with no complications. 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 The patient is scheduled for a pacemaker in the near future. [id number]/[facility] #: [id number] MTDD
[2019-01-27] MEDS: Levothyroxine TAB* 50 MCG TAB PO SCH (05:08)
[2019-01-27 05:21] LABS: BUN/Creatinine Ratio 14.1 (8-20); Calcium 8.8 mg/dL (8.6-10.3); EGFR African American 31.3 (>60); EGFR Non-African American 25.9 (>60); Magnesium 2.2 mg/dL (1.9-2.7); Potassium 4.4 mmol/L (3.5-5.0)
[2019-01-27] MEDS: Aspirin EC TAB* 81 MG TAB.EC PO SCH (09:32)
[2019-01-27] MEDS: Apixaban* 2.5 MG TAB PO SCH (09:32)
[2019-01-27] MEDS: Amiodarone TAB* 200 MG PO SCH (09:32)
[2019-01-27] MEDS: amLODIPine TAB* 5 MG PO SCH (09:32)
[2019-01-27] MEDS: Pantoprazole TAB * 40 MG TAB PO SCH (09:32)
[2019-01-27] MEDS: Docusate CAP* 100 MG PO SCH (09:32)
[2019-01-27 12:49] VITALS: BP 140/49
--- NOTE | 2019-01-27 22:04 | DS ---
DISCHARGE SUMMARY: DATE OF ADMISSION: 01/25/19 DATE OF DISCHARGE: 01/27/19 PROVIDER: Sera Constantino NP PRIMARY CARE PROVIDER: Dr. Quevedo. ATTENDING PHYSICIAN WHILE IN THE HOSPITAL: Dr. Oscar Rodriguez * (dictated by Sera Constantino NP). PRIMARY DIAGNOSES: 1. Atrial fibrillation with rapid ventricular response. 2. Cardioversion. 3. Hypokalemia. SECONDARY DIAGNOSES: 1. Chronic kidney disease. 2. Coronary artery disease. 3. Hyperlipidemia. 4. Hypertension. 5. Aortic stenosis. 6. Hypothyroid. STUDIES COMPLETED WHILE IN THE HOSPITAL: She had a chest x-ray on 01/25/19, radiologist's impression: No acute cardiopulmonary process, stable cardiac silhouette, status post aortic valve replacement. She had an electro- cardiogram. Her last echocardiogram showed sinus rhythm at a rate of 66. DISCHARGE MEDICATIONS: No new home medications. Continued home medications: 1. Eliquis 2.5 mg p.o. b.i.d. 2. Amlodipine 10 mg p.o. daily. 3. Potassium 10 mEq p.o. daily. 4. Pantoprazole 40 mg p.o. daily. 5. Nitro 0.4 mg p.o. q.5 minutes as needed. 6. Levothyroxine 50 mcg p.o. daily. 7. Furosemide 40 mg p.o. q.a.m. 8. Folic acid 1 mg p.o. daily. 9. Ferrous sulfate 325 mg p.o. daily. 10. Docusate 100 mg p.o. t.i.d. 11. Vitamin B12 1000 mcg p.o. daily. 12. Atorvastatin 20 mg p.o. q.p.m. 13. Aspirin 81 mg p.o. daily. 14. Amiodarone 300 mg p.o. daily. HISTORY OF PRESENT ILLNESS AND HOSPITAL COURSE: Ms. Sherwood is an 88-year-old female with a past medical history significant for atrial fibrillation, hypertension, hyperlipidemia, aortic stenosis, history of congestive heart failure, CAD, and hypothyroidism, who presented to the emergency room with complaints of dizziness and she was found to be in rapid atrial fibrillation with RVR. The patient has had the multiple cardioversions in the past. The patient was recently admitted to the hospital and at that time she had bradycardia, so she was taken off her metoprolol. During the hospitalization, the patient was started on a Cardizem drip and underwent an electrocardioversion with Dr. Cisneros that was successful with conversion of her heart rate to sinus rhythm in the 60s. The patient had no further complaints. On the day of discharge, she was feeling well. She denied any chest pain or shortness of breath. REVIEW OF SYSTEMS: The patient denies any fever, chills, chest pain or shortness of breath. Denies any nausea, vomiting, diarrhea or abdominal pain. Denies any gross hematuria or dysuria. Denies any focal weakness or sensory loss. Denies any dizziness. PHYSICAL EXAMINATION: General: At this time, Ms. Sherwood is alert and oriented , resting in her bed. She is in no acute distress. Vital Signs: Blood pressure 140/49, heart rate 64, respirations 20, O2 saturation on room air was 99%, temperature was 97.5. HEENT: Head is atraumatic, normocephalic. Eyes: EOMs are intact. Sclerae anicteric and not pale. Oral mucosa appeared to be moist. Neck is supple. Lungs are clear to auscultation bilaterally. No wheezes, rales or rhonchi. Cardiac: S1, S2. Regular rate and rhythm. No murmurs, rubs or gallops. Abdomen is soft and nontender. Bowel sounds are present x4. Neurologic: She is awake, alert, oriented x3. Her speech is clear. Thought process is intact. No gross focal deficits. At this time, Ms. Sherwood is stable for discharge to home. DISCHARGE PLAN: Ms. Sherwood will be discharged home at home. Activity as tolerated. 1. Atrial fibrillation with rapid ventricular response. The patient will continue on her home medications as previously prescribed, amiodarone 300 mg p.o. daily, Eliquis, and aspirin. She should call Dr. Cisneros's office to schedule a followup appointment, as the patient will be returning for permanent pacemaker placement in the near future. She should call Dr. Cisneros's office for further instructions regarding her pacemaker placement. 2. History of congestive heart failure. The patient did not have any issues with congestive heart failure during this hospitalization. She should continue our medications as previously prescribed. 3. GERD. She should continue on Protonix 40 mg p.o. daily. 4. Hypothyroid. She should continue her levothyroxine 50 mcg p.o. daily. 5. Hypertension. She should continue on amlodipine as previously 10 mg p.o. daily. 6. Hyperlipidemia. She will continue on atorvastatin 20 mg p.o. daily. 7. The patient was instructed to return to the emergency room for any chest pain, shortness of breath, dizziness, weakness or any other concerning symptoms. The patient verbalized understanding. 8. The patient should follow up with her primary care provider in 4 to 7 days. 9. She should call Dr. Cisneros's office this evening or tomorrow morning in regard to follow up for her permanent pacemaker placement in the near future and further directions in regard to permanent pacemaker. 10. I have discussed with my attending, Dr. Oscar Rodriguez; he is in agreement with my plan. SERA CONSTANTINO, MADY [id number]/[facility] #: [id number] DONNA
== END 2019-01-27 14:12 | disposition home health service (06) | DRG 309 ==
LOC: ED 18:32 → MEDTELE 20:33
PROVIDERS: ADMIT Student in an Organized Health Care Education/Training Program; ATTEND Internal Medicine
PROC: 5A2204Z Restoration of Cardiac Rhythm, Single (ICD-10-PCS; principal; 2019-01-26 15:00)
DX: I48.0 Paroxysmal atrial fibrillation (principal); I13.0 Hypertensive heart and chronic kidney disease with heart failure and stage 1 through stage 4 chronic kidney disease, or unspecified chronic kidney disease; I50.30 Unspecified diastolic (congestive) heart failure; I47.2 Ventricular tachycardia; N18.3 Chronic kidney disease, stage 3 (moderate); E87.6 Hypokalemia; E78.5 Hyperlipidemia, unspecified; I35.0 Nonrheumatic aortic (valve) stenosis; E03.9 Hypothyroidism, unspecified; I25.10 Atherosclerotic heart disease of native coronary artery without angina pectoris; K59.00 Constipation, unspecified; I07.1 Rheumatic tricuspid insufficiency; Z82.49 Family history of ischemic heart disease and other diseases of the circulatory system; Z83.438 Family history of other disorder of lipoprotein metabolism and other lipidemia; Z95.2 Presence of prosthetic heart valve; Z82.3 Family history of stroke
CPT/HCPCS: 36415; 71045; 80048; 80053; 83605; 83735; 83880; 84443; 84484; 85025; 85610; 92960; 93005; 99156; 99157; 99284; A9270-GY; J2250; J2310; J3010; J3475; J3480; J3490

== ENCOUNTER 2019-01-31 11:22 | Inpatient (IN) | payer MEDICARE ==
--- NOTE | 2019-01-31 11:40 | ED ---
Palpitations / Dysrhythmia - HPI Summary HPI Summary: The patient is an 88 y/o F presenting to [facility] accompanied by daughter with a chief complaint of sudden onset fast and irregular heart beat this morning. She reports that she was admitted for history of atrial fibrillation with cardioversion five days ago and discharge three days ago. She has felt at baseline since then until this morning when she began to experience dizziness with a near syncopal sensation and shortness of breath associated with the dysrhythmia She denies any chest pain, and she is not in any pain now. There is a plan for a pacemaker placement in three days, so she has stopped taking her Eliquis as of today to prepare for the procedure. PMHx: thyroid disease, anemia , atrial fibrillation, CHF, CAD, HLD, HTN, PVD, COPD, aortic valce replacement, multiple cardioversions. Nonsmoker, no EtOH, no substance use. Medications reviewed. Allergies noted. - History of Current Complaint Chief Complaint: EDDysrhythmPalp Time Seen by Provider: 01/31/19 11:33 Hx Obtained From: Patient Onset/Duration: Sudden Onset, Still Present Severity Initially: Moderate Severity Currently: Moderate Character: Fast, Irregular Aggravating: Nothing Alleviating: Nothing Associated Signs & Symptoms: Dizzy, Shortness of Breath Related History: Similar Episode/Dx as - atrial fibrillation - Allergy/Home Medications Allergies/Adverse Reactions: Allergies Allergy/AdvReac Type Severity Reaction Status Date / Time No Known Allergies Allergy Verified 01/31/19 11:31 PMH/Surg Hx/FS Hx/Imm Hx Endocrine/Hematology History: Reports: Hx Anticoagulant Therapy, Hx Blood Transfusions, Hx Thyroid Disease, Hx Anemia - on iron Denies: Hx Diabetes Cardiovascular History: Reports: Hx Angina, Hx Atrial Fibrillation, Hx Congestive Heart Failure, Hx Coronary Artery Disease, Hx Hypercholesterolemia, Hx Hypertension, Hx Peripheral Vascular Disease, Hx Syncope, Hx Valvular Heart Disease Denies: Hx Myocardial Infarction, Hx Pacemaker/ICD Comment Only: Other Cardiovascular Problems/Disorders - stents, A-fib Respiratory History: Reports: Hx Chronic Bronchitis, Hx Chronic Obstructive Pulmonary Disease (COPD) Denies: Hx Asthma GI History: Reports: Hx Irritable Bowel - w/ constipation, Other GI Disorders - constipation Denies: Hx Gastrointestinal Bleed, Hx Hiatal Hernia, Hx Ulcer History: Denies: Hx Chronic Renal Failure, Hx Kidney Stones, Hx Renal Disease, Other Problems/Disorders Musculoskeletal History: Reports: Hx Arthritis - osteoarhtritis, Hx Back Problems, Hx Orthopedic Injury, Other Musculoskeletal History - HAMMER TOE LEFT SECOND TOE-repaired, carpel tunnel surgery Denies: Hx Osteoporosis Sensory History: Reports: Hx Cataracts - LENS IMPLANTS 2011, Hx Contacts or Glasses, Hx Vision Problem, Other Sensory Impairments - dry eye Denies: Hx Hearing Aid Opthamlomology History: Reports: Hx Cataracts - LENS IMPLANTS 2011, Hx Contacts or Glasses, Hx Vision Problem, Other Sensory Impairments - dry eye Neurological History: Denies: Hx Dementia, Hx Seizures, Hx Transient Ischemic Attacks (TIA) Psychiatric History: Denies: Hx Anxiety, Hx Depression, Hx Panic Disorder - Cancer History Hx Chemotherapy: No Hx Radiation Therapy: No - Surgical History Surgical History: Yes Surgery Procedure, Year, and Place: AORTIC valve replacement, 2012,. , 1963, [facility]. Cataract surgery, 2011, [facility], [place] LEFT FOOT. cardiac catherization with cardiac stent to RCA October 2016. cardioversions 2014,2015, 08/2016, 05/30/18. Carpel tunnel surgery 12/2018. left hip hemiarthroplasty surgery 04/2018. left hip revision 06/2018 Hx Anesthesia Reactions: No - Immunization History Date of Influenza Vaccine: 12/25 Infectious Disease History: No Infectious Disease History: Denies: Hx Clostridium Difficile, Hx Hepatitis, Hx Human Immunodeficiency Virus (HIV), Hx of Known/Suspected MRSA, Hx Shingles, Hx Tuberculosis, Hx Known/ Suspected VRE, Hx Known/Suspected VRSA, History Other Infectious Disease, Traveled Outside the [place] in Last 30 Days - Family History Known Family History: Positive: Cardiac Disease, Hypertension - Social History Alcohol Use: None Hx Substance Use: No Substance Use Type: Reports: None Hx Tobacco Use: No Smoking Status (MU): Never Smoked Tobacco Have You Smoked in the Last Year: No Review of Systems Positive: Palpitations - fast, irregular. Negative: Chest Pain Positive: Shortness Of Breath Neurological: Other - dizziness, near syncopal sensation All Other Systems Reviewed And Are Negative: Yes Physical Exam - Summary Physical Exam Summary: VITAL SIGNS: Reviewed. GENERAL: Patient is a well-developed and nourished elderly female who is lying comfortable in the stretcher. Patient is not in any acute respiratory distress. HEAD AND FACE: No signs of trauma. No ecchymosis, hematomas or skull depressions. No sinus tenderness. EYES: PERRLA, EOMI x 2, No injected conjunctiva, no nystagmus. EARS: Hearing grossly intact. Ear canals and tympanic membranes are within normal limits. MOUTH: Oropharynx within normal limits. NECK: Supple, trachea is midline, no adenopathy, no JVD, no carotid bruit, no c- spine tenderness, neck with full ROM. CHEST: Symmetric, no tenderness at palpation. LUNGS: Clear to auscultation bilaterally. No wheezing or crackles. CVS: Irregular rate and rhythm, S1 and S2 present, no murmurs or gallops appreciated. ABDOMEN: Soft, non-tender. No signs of distention. No rebound, no guarding, and no masses palpated. Bowel sounds are normal. EXTREMITIES: FROM in all major joints, no edema, no cyanosis or clubbing. NEURO: Alert and oriented x 3. No acute neurological deficits. Speech is normal and follows commands. SKIN: Dry and warm. Triage Information Reviewed: Yes Vital Signs On Initial Exam: Initial Vitals Temp Pulse Resp BP Pulse Ox 97.9 F 119 16 127/84 98 01/31/19 11:28 01/31/19 11:28 01/31/19 11:28 01/31/19 11:28 01/31/19 11:28 Vital Signs Reviewed: Yes Procedures - Sedation Patient Received Moderate/Deep Sedation with Procedure: Yes - for cardioversion performed by Dr. Sherman Are You The Provider Who Administered The Sedation: [place] of Provider Whom Sedated Patient: Jesus Alberto Sherman - cardiology Diagnostics - Vital Signs Vital Signs Temp Pulse Resp BP Pulse Ox 01/31/19 11:28 97.9 F 119 16 127/84 98 - Laboratory Result Diagrams: 01/31/19 11:45 02/01/19 07:17 Lab Statement: Any lab studies that have been ordered have been reviewed, and results considered in the medical decision making process. - Radiology Chest X-Ray Radiology Interpretation Completed By: Radiologist Summary of Radiographic Findings: Impression: Cardiomegaly with no active cardiopulmonary disease. Patient is status post transsternal thoracotomy. ED physician has reviewed this report. - EKG 1154 Cardiac Rate: Other Rate - 125 BPM EKG Rhythm: Atrial Flutter Summary of EKG Findings: EKG at 1154 reveals atrial flutter at 125 BPM. ED physician has reviewed and interpreted this EKG. 1309 Cardiac Rate: Other Rate - 109 BPM EKG Rhythm: Atrial Flutter Summary of EKG Findings: EKG at 1309 reveals atrial flutter at 109 BPM. LBBB. ED physician has reviewed and interpreted this EKG. 1307 Cardiac Rate: Other Rate - 117 BPM EKG Rhythm: Atrial Flutter Summary of EKG Findings: EKG at 1307 reveals atrial flutter at 117 BPM. LBBB. ED physician has reviewed and interpreted this EKG. 1438 Cardiac Rate: NL - 63 BPM EKG Rhythm: Sinus Rhythm EKG Comparison: Other - Atrial flutter resolved following cardioversion. Summary of EKG Findings: EKG at 1438 reveals normal sinus rhythm at [address] elevations. ED physician has reviewed and interpreted this EKG. 1619 Cardiac Rate: Other Rate - 96 BPM EKG Rhythm: Atrial Fibrillation EKG Comparison: Other - Patient returned to atrial fibrillation with LBBB. Summary of EKG Findings: EKG at 1619 reveals atrial fibrillation at 96 BPM. LBBB. ED physician has reviewed and interpreted this EKG. 1620 Cardiac Rate: Other Rate - 102 BPM EKG Rhythm: Atrial Fibrillation EKG Comparison: No Significant Change - Patient continues to be in atrial fibrillation with LBBB. Summary of EKG Findings: EKG at 1620 reveals atrial fibrillation at 102 BPM. LBBB. ED physician has reviewed and interpreted this EKG. Re-Evaluation - Re-Evaluation First Eval Re-Evaluation Time: 13:20 Comment: We discussed the consultation with Dr. Sherman and his plan for cardioversion. Second Eval Re-Evaluation Time: 13:34 Comment: She states that the last time she ate was last night. Third Eval Re-Evaluation Time: 14:05 Change: Improved Comment: Cardioversion performed by Dr. Sherman from cardiology. Patient has returned to normal sinus rhythm. Fourth Eval Re-Evaluation Time: 14:55 Change: Improved Comment: Patient is awake, alert, and oriented. She is feeling better. Fifth Eval Re-Evaluation Time: 15:20 Comment: She continues to be awake, alert, and oriented. She is clear for discharge at this time, and she will follow up with cardiology as scheduled. Sixth + Eval Re-Evaluation Time: 16:15 Change: Worse Comment: Per nurse Abi, the patient stood up to be discharged once her daughter returned, and she became dizzy and returned back into atrial fibrillation. Course/Dx - Course Assessment/Plan: This patient is an 88-year-old female who presents to the emergency department with a chief complaint of having shortness of breath, dizziness and she is going to pass out. EKG shows an atrial flutter at 125 bpm. The patient has a history of history atrial fibrillation or flutter. She is on Eliquis; however, she has not taken her medication today because she is going to have pacemaker placement on 02/03/19. Blood test results without any significant abnormality except for slight anemia, chloride of 100, BUN of 26, creatinine of 1.86, and glucose of 124. In the ED course, the patient was given IV fluids since she is slightly dehydrated and Cardizem for rate control. Heart rate increased, and I repeated second EKG which shows atrial flutter with LBBB vs V tach. Patient is hemodynamically stable. Patient takes Amiodarone at home, thus she was given an Amiodarone 150 mg bolus. I discussed the case with Dr. Sherman form cardiology, and he will cardiovert the patient in the ED. Last time she ate was last night. Dr. Sherman came into the emergency department, and he cardioverted the patient. He performed the conscious sedation. EKG shows a normal sinus rhythm at 63 bpm. Patient is hemodynamically stable. Patient was observed for a couple hours, and the patient continues to be stable. The patient is alert oriented 3. Patient is able to tolerate fluids without any nausea and vomiting. Therefore, the patient was discharged home with follow-up with primary care physician and cardiology. . Addendum: While the patient was waiting to be picked up by her daughter, the patient developed atrial fibrillation again. I discussed the findings with Dr. Sherman, and he recommends for the patient to be admitted to the hospital services. I discussed the findings with Dr. Guerra from the hospital services who accepted the patient for admission. - Diagnoses Differential Diagnosis/HQI/PQRI: Positive: Paroxymal SVT - Atrial fibrillation, atrial flutter, V-Tach Provider Diagnoses: Atrial flutter - Physician Notifications Discussed Care Of Patient With: Jesus Alberto Sherman - cardiology Time Discussed With Above Provider: 13:17 Instructed by Provider To: Other - I discussed the patients case with Dr. Sherman, and he recommends cardioversion. He will come to the ED to perform the cardioversion. After the patient returned to atrial fibrillation, I spoke with Dr. Sherman, and he recommends admission. I spoke with Dr. Guerra, hospitalist, who accepts the patient for admission at 1635. Discharge ED - Sign-Out/Discharge Documenting (check all that apply): Patient Departure - Patient accepted for admission by Dr. Guerra. - Discharge Plan Condition: Stable Disposition: ADMITTED TO [facility] - Billing Disposition and Condition Condition: STABLE Disposition: Admitted to [facility] - Attestation Statements Document Initiated by Marcos: Yes Documenting Scribe: Sury Plata Provider For Whom Marcos is Documenting (Include Credential): Dr. Shane Reynolds MD Scribe Attestation: I, Sury Plata, scribed for Dr. Shane Reynolds MD on 02/01/19 at 1142. Scribe Documentation Reviewed: Yes Provider Attestation: The documentation as recorded by the Sury harrington accurately reflects the service I personally performed and the decisions made by me, Dr. Shane Reynolds MD Status of Scribderick Document: Viewed
[2019-01-31] MEDS ORDERED: NS 0.9% 1000 ML** 1,000 ML IV ONE ×2 (11:46→13:14)
[2019-01-31] MEDS: Diltiazem IV push/loading dose 5 MG/ML 5 ML vial (25 mg) IV PUSH ONE ×2 (11:51→12:53)
[2019-01-31 12:09] LABS: ABS Eosinophils 0.1 10^3/ul (0-0.6); ABS Lymphocytes 1.1 10^3/ul (1.0-4.8); ABS Monocytes 0.6 10^3/ul (0-0.8); ABS Neutrophils 3.5 10^3/ul (1.5-7.7); Eosinophil % 1.2 %; Hematocrit 34 % (35-47); Hemoglobin 11.4 g/dL (12.0-16.0); Lymphocyte % 20.3 %; Mean Corpuscular HGB Conc 33 g/dL (31-36); Mean Corpuscular Hemoglobin 32 pg (27-31); Mean Corpuscular Volume 98 fL (80-97); Mean Platelet Volume 7.1 fL (7.4-10.4); Platelet Count 209 10^3/uL (150-450); Red Blood Count 3.52 10^6 /uL (3.70-4.87); Red Cell Distribution Width 15 % (10-15); White Blood Count 5.3 10^3/uL (3.5-10.8)
[2019-01-31 12:24] LABS: Calcium 9.5 mg/dL (8.6-10.3); Magnesium 1.9 mg/dL (1.9-2.7); Potassium 3.5 mmol/L (3.5-5.0); Total Bilirubin 0.7 mg/dL (0.2-1.0)
--- OUTSIDE RECORDS SUMMARY | 2019-01-31 12:28 | XMS REPORT | Continuity of Care Document ---
:1930 External Reference #:[id number] Author Name Cash Lees M.D. 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 [phone] Medicine Sahil Pang MD - Internal Care Team Information [employer] Furn[employer] [phone] Medicine Problems Active Problems Provider Date Aortic [...] H/L Range Note Neph Routine 11/20/2018 [facility] Total Protein 6 mg/dL [address] [place] [address] [phone] Creatinine Random Urine 19.84 mg/dL CBC Auto 11/20/2018 [facility] White Blood 5.4 10^3/uL Normal 3.5-10.[address] [place] [address] [phone] Red Blood Count 3.23 10^6/uL Low 3.70-4.87 [...] Cells % 0.0 Urinalysis Profile 11/20/2018 [facility] Urine Color Yellow [address] [place] [address] [phone] Urine Appearance Cloudy Urine Specific Seffner 1.005 Low 1.010-1.030 Urine pH 7.0 Normal 5-9 Urine Urobilinogen Negative Negative Urine Ketones Negative Negative Urine Protein Negative Negative Urine Leukocytes Negative Negative Urine Blood Negative Negative Urine Nitrite Negative Negative Urine Bilirubin Negative Negative Urine Glucose Negative Negative Basic Metabolic 11/20/2018 [facility] Sodium 140 mmol/L Normal 135-[address] [place] [address] [phone] Potassium 4.1 mmol/L Normal 3.5-5.0 Chloride 102 mmol/L Normal 101-111 Co2 Carbon Dioxide 31 mmol/L Normal 22-32 Anion Gap 7 mmol/L Normal 2-11 Glucose 89 mg/dL Normal 70-100 Blood Urea Nitrogen 22 mg/dL Normal 6-24 Creatinine 1.67 mg/dL High 0.51-0.95 BUN/Creatinine Ratio 13.2 Normal 8-20 Calcium 9.1 mg/dL Normal 8.6-10.3 Egfr Non- 29.0 >60 Egfr 35.0 >60 1 Protein 11/20/2018 [facility] Total 6.5 g/dL 6.3 - Electrophoresis [address] Protein(Pep) 7.9 [place] [address] [phone] Albumin 3.4 g/dL 3.4-4.7 Alpha-1 Globulin 0.3 g/dL 0.1-0.3 Alpha-2 Globulin 1.0 g/dL 0.6-1.0 Beta Globulin 1.0 g/dL 0.7-1.2 Gamma Globulin 0.9 g/dL 0.6-1.6 Albumin/Globulin Ratio 1.13 Impression See Comment 2 Herculaneum/Lambda Free 11/20/2018 [facility] Herculaneum Free 6.31 mg/dL Abnormal [address] [place] [address] [phone] Lambda Free Light Chain 2.74 mg/dL Abnormal 4 Herculaneum/Lambda Free Light Chain 2.30 Abnormal 5 Laboratory test 11/20/2018 [facility] TSH (Thyroid 7.09 High 0.34-5.[address] Stim Horm) mcIU/[place] [address] [phone] T3 Free 2.30 pg/mL Low 2.5-3.9 Free T4 (Free Thyroxine) 1.16 ng/dL High 0.61-1.12 T3 Total 51 ng/dL Low 87-178 Thyroperoxidase AB 0.20 IU/mL Normal <9 Thyroglobulin AB 0.0 IU/mL <4.0 Thyroid Stimulating Igg (Tsi) <1.0 TSIindex <=1.3 6 Comp Metabolic Panel 08/18/2018 [facility] Sodium 134 mmol/L Low 135-[address] [place] [address] [phone] Potassium 3.6 mmol/L Normal 3.5-5.0 Chloride 98 [...] Non- 28.8 >60 Egfr 34.9 >60 7 Laboratory test 08/18/2018 [facility] Magnesium 1.8 mg/dL Low 1.9-2.[address] [place] [address] [phone] Troponin-I (TnI) 0.01 ng/mL <0.04 8 TSH (Thyroid Stim Horm) 4.36 mcIU/mL Normal 0.34-5.60 Free T4 (Free Thyroxine) 1.16 ng/dL High 0.61-1.12 Inr/Protime 08/18/2018 [facility] Inr 1.85 High 0.82-1.[address] [place] [address] [phone] CBC Auto Diff 08/18/2018 [facility] White Blood 7.5 Normal 3.5 -10.[address] Count 10^3/[place] [address] [phone] Red Blood Count 2.96 10^6/uL Low 3.70-4.87 [...] Cells % 0.0 Laboratory test 08/18/2018 [facility] Troponin-I (TnI) 0.01 ng/ mL <0.04 10 finding [address] [place] [address] [phone] Laboratory test 08/18/2018 [facility] Troponin-I (TnI) 0.01 ng/ mL <0.04 11 finding [address] [place] [address] [phone] Urinalysis 08/05/2018 [facility] Urine Color Yellow Profile [address] [place] [address] [phone] Urine Appearance Clear Urine Specific Seffner 1.005 Low 1.010-1.030 Urine pH 6.0 Normal 5-9 Urine Urobilinogen Negative Negative Urine Ketones Negative Negative Urine Protein Negative Negative Urine Leukocytes 1+ Abnormal Negative Urine Blood Negative Negative Urine Nitrite Negative Negative Urine Bilirubin Negative Negative Urine Glucose Negative Negative Urine White Blood Cell Trace(0-5/hpf) Absent Urine Red Blood Cell Absent Absent Urine Bacteria Absent Absent Urine Culture And 08/05/2018 [facility] Urine Culture SEE RESULT [address] [place] [address] [phone] 1 Because ethnic data is not always [...] protein on serum electrophoresis. Test Performed by: [facility] [employer] [address] [place] [address] Clinic Specialist: Mick Covington M.D. Ph.D.; CLIA# [id number] 3 REFERENCE VALUE 0.3300-1.94 4 REFERENCE VALUE 0.5700-2.63 5 Elevated free light chain ratios between 1.66 and 3.00 may occur due to polyclonal hypergammaglobulinemia or impaired renal clearance. An isolated increased free light chain ratio in this range should be interpreted with caution, and clinical correlation is recommended. REFERENCE VALUE 0.2600-1.65 Test Performed by: [facility] [address] [place] [address] Clinic Specialist: Mick Covington M.D. Ph.D.; CLIA# [id number] 6 Test Performed by: [address] [address] Clinic Specialist: Mick Covington M.D. Ph.D.; [facility]# [id number] 7 Because ethnic data is not always [...] 5 Kidney failure <15 (or dialysis) 8 Troponin-I testing on Plasma Separator Tubes (PST) has a known false positive rate of 0.20-0.40%. All positive troponins reflex immediately to secondary confirmatory testing. Using the Ordoro DxI 800 Access Immunoassay systems, the 99th percentile upper reference limit was demonstrated to be < 0.03 ng/mL. 9 Standard intensity warfarin therapeutic range: 2.0-3.0 High intensity warfarin therapeutic range: 2.5-3.5 10 Troponin-I testing on Plasma Separator Tubes (PST) has a known false positive rate of 0.20-0.40%. All positive troponins reflex immediately to secondary confirmatory testing. Using the Ordoro DxI 800 Access Immunoassay systems, the 99th percentile upper reference limit was demonstrated to be < 0.03 ng/mL. 11 Troponin-I testing on Plasma Separator Tubes (PST) has a known false positive rate of 0.20-0.40%. All positive troponins reflex immediately to secondary confirmatory testing. Using the Un[employer]agen DxI 800 Access Immunoassay systems, the 99th percentile upper reference limit was demonstrated to be < 0.03 ng/mL. 12 SEE RESULT BELOW Name: VERONICA BHAT : [address]: Nicole Guerra MD Acct: [id number] Unit: [id number] AGE: 87 Location: [place] [address] Re08/06/18 SEX: F Status: ADM IN SPEC: [id number] LACEY: 08/05/18 [facility] [address]: Dinora CURTIS REQ: [id number] RECD: 08/05/18 STATUS: DAVID CARDENAS DR: Carlos A Quevedo MD PC _ SOURCE: URINE SPDESC: ORDERED: Urine Culture Procedure Result Reported Site Urine Culture Final 08/07/18- 0840 ML Few Enterobacteriacae; possible contamination. * ML - Main Lab . END OF REPORT DEPARTMENT OF PATHOLOGY, [address] [place] [address] Brendon Nicole M.D. Director [facility] # [id number] Procedures Date Code Description Status 01/09/2019 48928 EKG Tracing & Interpretation Completed 01/02/2019 91772 Cardioversion Completed 12/10/2018 38139 Carpal Tunnel Release Completed 12/10/2018 17016 Carpal Tunnel Release Completed 11/19/2018 37493 EKG Tracing & Interpretation Completed 11/03/2018 91214 EKG, Interpretation Only Completed 11/03/2018 51514 Cardioversion Completed 11/02/2018 13913 EKG, Interpretation Only Completed 09/25/2018 Injection, Carpal Tunnel Completed 09/25/2018 Inject/Drain Joint/Bursa Major W/O US Completed 08/20/2018 12071 EKG Tracing & Interpretation Completed 08/18/2018 77136 Cardioversion Completed 08/06/2018 61624 Moderate Sedation Services; Same Phys Intl 15 Mins; PT Completed >= 5 Years 08/06/2018 40993 EKG, Interpretation Only Completed 08/06/2018 41418 Cardioversion Completed 02/21/2018 [id number] Colonoscopy Completed 04/19/2009 24599150 Colonoscopy Completed Medical Devices Description No Information Available Encounters Type Date Location Provider Dx Diagnosis Office Visit 01/09/2019 [facility] Talib Medrano I44.7 Left bundle- branch 8:45a Of Nathaniel Cisneros M.D. block, unspecified I48.0 Paroxysmal atrial fibrillation I25.10 [facility] heart disease of [place] coronary artery w/o ang pctrs Office Visit 01/02/2019 11:03a [facility] Jesus Alberto Collins I48.92 Unspecified Of [facility] DO [address] atrial flutter FACC I44.7 Left bundle-branch block, unspecified I48.0 Paroxysmal atrial fibrillation I13.0 Hyp hrt & chr kdny dis w hrt fail and stg 1-4/unsp chr kdny D63.1 Anemia in chronic kidney disease I50.9 Heart failure, unspecified N18.9 Chronic kidney disease, unspecified I25.10 Athscl heart disease of [place] coronary artery w/o ang pctrs Z98.61 Coronary angioplasty status Z79.01 jail (current) use of anticoagulants Office Visit 11/27/2018 1:00p [facility] Bob Reyes I12.9 Hypertensive MD Celia chronic kidney disease w stg 1-4/unsp chr kdny N18.4 Chronic kidney disease, stage 4 (severe) N17.9 Acute kidney failure, unspecified I10 Essential (primary) hypertension I48.0 Paroxysmal atrial fibrillation Office Visit 11/25/2018 10:15a [facility] Aaron F G56.01 Carpal tunnel at [facility] MD Alex syndrome, right upper limb M19.011 Primary osteoarthritis, right shoulder S46.011A Strain of musc/tend the rotator cuff of right shoulder, init Office Visit 11/19/2018 10:45a [facility] Talib Medrano I48.0 Paroxysmal atrial Of Nathaniel Cisneros M.D. 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 Office Visit 11/13/2018 10:00a [facility]phrology Bob Reyes N18.4 Chronic kidney MD Celia disease, stage 4 (severe) I12.9 Hypertensive chronic kidney disease w stg 1-4/unsp chr kdny R60.0 Localized edema I48.0 Paroxysmal atrial fibrillation I50.33 Acute on chronic diastolic (congestive) heart failure D64.9 Anemia, unspecified Office Visit 11/03/2018 [facility] Kerline I48.91 Unspecified atrial 9:06a Assoc,lo Garza MD fibrillation Hospitalists M54.9 Dorsalgia, unspecified Office Visit 11/02/2018 11:46a [facility] Harvey Saldana I48.0 Paroxysmal atrial Sandoval Richards fibrillation I50.30 Unspecified diastolic (congestive) heart failure R00.0 Tachycardia, unspecified D64.9 Anemia, unspecified R07.89 Other chest pain [facility], I48.91 Unspecified 9:06a lo Murcia M.D. atrial Hospitalists fibrillation M54.9 Dorsalgia, unspecified N18.4 Chronic kidney disease, stage 4 (severe) Office Visit 09/25/2018 2:30p [facility] Aaron F S46.011A Strain of Orthopedics at MD Alex musc/tend the [facility] rotator cuff of right shoulder, init M19.011 Primary osteoarthritis, right shoulder G56.01 Carpal tunnel syndrome, right upper limb S72.002D Fx unsp part of nk of perry boggs, subs for clos fx w routn heal Office Visit 08/20/2018 3:15p [facility] Talib Medrano Z95.2 Presence of Of Nathaniel Cisneros M.D. prosthetic heart valve I25.10 Athscl heart disease of [place] coronary artery w/o ang pctrs I48.0 Paroxysmal atrial fibrillation [facility], I50.33 Acute on chronic 9:41a lo Murcia M.D. diastolic Hospitalists (congestive) heart failure I48.91 Unspecified atrial fibrillation E83.42 Hypomagnesemia Office Visit 08/06[facility], I48.91 Unspecified 9:40a lo Murcia M.D. atrial Hospitalists fibrillation I50.33 Acute on chronic diastolic (congestive) heart failure D64.9 Anemia, unspecified N18.3 Chronic kidney disease, stage 3 (moderate) Office Visit 08/06/2018 2:28p [facility] Conchita Thompson I48.91 Unspecified atrial Cardiology Of [facility]ze[facility] fibrillation Complaint Clerk I25.10 Athscl heart disease of [place] coronary artery w/o ang pctrs E87.8 Oth disorders of electrolyte and fluid balance, NEC Office Visit 08/05/2018 [facility] Dinora I48.91 Unspecified 9:39a Assoc,pc [place], [place] atrial Hospitalists fibrillation I50.9 Heart failure, unspecified R74.8 Abnormal levels of other serum enzymes E83.42 Hypomagnesemia E87.1 Hypo-osmolality and hyponatremia Assessments Date Code Description Provider 01/22/2019 G56.01 Carpal tunnel syndrome, right upper limb Aaron Johnson MD 01/09/2019 I44.7 Left bundle-branch block, unspecified Talib Cisneros M.D. 01/09/2019 I48.0 Paroxysmal atrial fibrillation Talib Cisneros M.D. 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 01/02/2019 I48.92 Unspecified atrial flutter Jesus Alberto Sherman, DO FAC 01/02/2019 I44.7 Left bundle-branch block, unspecified Jesus Alberto Sherman, DO FAC 01/02/2019 I48.0 Paroxysmal atrial fibrillation Jesus Alberto Sherman DO FAC 01/02/2019 I13.0 Hypertensive heart and chronic kidney Jesus Alberto Sherman, DO [facility] disease with heart failure and stage 1 through stage 4 chronic kidney disease, or unspecified chronic kidney disease 01/02/2019 D63.1 Anemia in chronic kidney disease Jesus Alberto Sherman DO FACC 01/02/2019 I50.9 Heart failure, unspecified Jesus Alberto Sherman, DO FACC 01/02/2019 N18.9 Chronic kidney disease, unspecified Jesus Alberto Sherman, DO FACC 01/02/2019 I25.10 Atherosclerotic heart disease of [place] Jesus Alberto Sherman, DO [facility] coronary artery without angina pectoris 01/02/2019 Z98.61 Coronary angioplasty status Jesus Alberto Sherman DO FAC 01/02/2019 Z79.01 jail (current) use of Jesus Alberto Sherman DO FAC anticoagulants 12/25/2018 G56.01 Carpal tunnel syndrome, right [...] failure 11/19/2018 I25.10 Atherosclerotic heart disease of [place] Talib Cisneros M.D. coronary artery with 11/19/2018 [...] electrocardiogram [ECG] [EKG] Jesus Alberto Sherman DO [facility] 11/03/2018 I48.91 Unspecified atrial fibrillation Talib [...] M.D. 08/20/2018 I25.10 Atherosclerotic heart disease of [place] Talib Cisneros M.D. coronary artery with 08/20/2018 I48.0 Paroxysmal atrial fibrillation Talib Cisneros M.D. 08/18/2018 I48.0 Paroxysmal atrial fibrillation Talib Cisnreos M.D. 08/08/2018 I50.33 Acute on chronic diastolic [...] failure 08/06/2018 I25.10 Atherosclerotic heart disease of [place] Conchita Thompson M.D. coronary artery with 08/06/2018 [...] 08/05/2018 E87.1 Hypo-osmolality and hyponatremia KIRSTEN Mae Plan of Treatment Future Appointment(s):07/10/2019 9:45 am - Talib Cisneros M.D. at [facility]01/22/2019 - ENOC Poe56.01 Carpal tunnel syndrome, right upper limbFollow up:Follow up: As needed Functional Status Description No Information Available Mental Status Description No Information Available Referrals Description No Information Available
--- OUTSIDE RECORDS SUMMARY | 2019-01-31 12:28 | XMS REPORT | Continuity of Care Document ---
:1930 External Reference #:[id number] Author Name Cash Lees M.D. (transmitted by agent of provider Helene Johnson) Address [address] [facility] [address] [place] [address] Care Team Providers Name Role Phone Susy Quevedo MD - Internal Care Team Information Web Worker [phone] Medicine Sahil Pang MD - Internal Care Team Information Web Worker Medicine Problems Active Problems Provider Date Aortic [...] Result H/L Range Note Neph Routine 11/20/2018 [facility] Total Protein 6 mg/dL [address] [place] [address] [phone] Creatinine Random Urine 19.84 mg/dL CBC Auto 11/20/2018 [facility] White Blood 5.4 10^3/uL Normal 3.5-10.[address] [place] [address] [phone] Red Blood Count 3.23 10^6/uL Low 3.70-4.87 [...] Blood Cells % 0.0 Urinalysis Profile 11/20/2018 [facility] Urine Color Yellow [address] [place] [address] [phone] Urine Appearance Cloudy Urine Specific [place] 1.005 Low 1.010-1.030 Urine pH 7.0 Normal 5-9 Urine Urobilinogen Negative Negative Urine Ketones Negative Negative Urine Protein Negative Negative Urine Leukocytes Negative Negative Urine Blood Negative Negative Urine Nitrite Negative Negative Urine Bilirubin Negative Negative Urine Glucose Negative Negative Basic Metabolic 11/20/2018 [facility] Sodium 140 mmol/L Normal 135-[address] [place] [address] [phone] Potassium 4.1 mmol/L Normal 3.5-5.0 Chloride 102 mmol/L Normal 101-111 Co2 Carbon Dioxide 31 mmol/L Normal 22-32 Anion Gap 7 mmol/L Normal 2-11 Glucose 89 mg/dL Normal 70-100 Blood Urea Nitrogen 22 mg/dL Normal 6-24 Creatinine 1.67 mg/dL High 0.51-0.95 BUN/Creatinine Ratio 13.2 Normal 8-20 Calcium 9.1 mg/dL Normal 8.6-10.3 Egfr Non- 29.0 >60 Egfr 35.0 >60 1 Protein 11/20/2018 [facility] Total 6.5 g/dL 6.3 - Electrophoresis [address] Protein(Pep) 7.9 [place] [address] [phone] Albumin 3.4 g/dL 3.4-4.7 Alpha-1 Globulin 0.3 g/dL 0.1-0.3 Alpha-2 Globulin 1.0 g/dL 0.6-1.0 Beta Globulin 1.0 g/dL 0.7-1.2 Gamma Globulin 0.9 g/dL 0.6-1.6 Albumin/Globulin Ratio 1.13 Impression See Comment 2 Mahomet/Lambda Free 11/20/2018 [facility] Mahomet Free 6.31 mg/dL Abnormal [address] [place] [address] [phone] Lambda Free Light Chain 2.74 mg/dL Abnormal 4 Mahomet/Lambda Free Light Chain 2.30 Abnormal 5 Laboratory test 11/20/2018 [facility] TSH (Thyroid 7.09 High 0.34-5.[address] Stim Horm) mcIU/[place] [address] [phone] T3 Free 2.30 pg/mL Low 2.5-3.9 Free T4 (Free Thyroxine) 1.16 ng/dL High 0.61-1.12 T3 Total 51 ng/dL Low 87-178 Thyroperoxidase AB 0.20 IU/mL Normal <9 Thyroglobulin AB 0.0 IU/mL <4.0 Thyroid Stimulating Igg (Tsi) <1.0 TSIindex <=1.3 6 Comp Metabolic Panel 08/18/2018 [facility] Sodium 134 mmol/L Low 135-[address] [place] [address] [phone] Potassium 3.6 mmol/L Normal 3.5-5.0 Chloride 98 [...] Egfr 34.9 >60 7 Laboratory test 08/18/2018 [facility] Magnesium 1.8 mg/dL Low 1.9-2.[address] [place] [address] [phone] Troponin-I (TnI) 0.01 ng/mL <0.04 8 TSH (Thyroid Stim Horm) 4.36 mcIU/mL Normal 0.34-5.60 Free T4 (Free Thyroxine) 1.16 ng/dL High 0.61-1.12 Inr/Protime 08/18/2018 [facility] Inr 1.85 High 0.82-1.[address] [place] [address] [phone] CBC Auto Diff 08/18/2018 [facility] White Blood 7.5 Normal 3.5 -10.[address] Count 10^3/[place] [address] [phone] Red Blood Count 2.96 10^6/uL Low 3.70-4.87 [...] Blood Cells % 0.0 Laboratory test 08/18/2018 [facility] Troponin-I (TnI) 0.01 ng/ mL <0.04 10 finding [address] [place] [address] [phone] Laboratory test 08/18/2018 [facility] Troponin-I (TnI) 0.01 ng/ mL <0.04 11 finding [address] [place] [address] [phone] Urinalysis 08/05/2018 [facility] Urine Color Yellow Profile [address] [place] [address] [phone] Urine Appearance Clear Urine Specific [place] 1.005 Low 1.010-1.030 Urine pH 6.0 Normal 5-9 Urine Urobilinogen Negative Negative Urine Ketones Negative Negative Urine Protein Negative Negative Urine Leukocytes 1+ Abnormal Negative Urine Blood Negative Negative Urine Nitrite Negative Negative Urine Bilirubin Negative Negative Urine Glucose Negative Negative Urine White Blood Cell Trace(0-5/hpf) Absent Urine Red Blood Cell Absent Absent Urine Bacteria Absent Absent Urine Culture And 08/05/2018 [facility] Urine Culture SEE RESULT [address] [place] [address] [phone] 1 Because ethnic data is not always [...] serum electrophoresis. Test Performed by: [facility] [address] [place] [address] Parts Counter Sales Person: Mick Covington M.D. Ph.D.; CLIA# [id number] 3 REFERENCE VALUE 0.3300-1.94 4 REFERENCE VALUE 0.5700-2.63 5 Elevated free light chain ratios between 1.66 and 3.00 may occur due to polyclonal hypergammaglobulinemia or impaired renal clearance. An isolated increased free light chain ratio in this range should be interpreted with caution, and clinical correlation is recommended. REFERENCE VALUE 0.2600-1.65 Test Performed by: [facility] [address] [place] [address] [employer] Counter Sales Person: Mick Covington M.D. Ph.D.; CLIA# [id number] 6 Test Performed by: [address] [address] [employer] Counter Sales Person: Mick Covington M.D. Ph.D.; [facility]# [id number] 7 Because ethnic data is not always [...] immediately to secondary confirmatory testing. Using the [employer] DxI 800 Access Immunoassay systems, the 99th percentile upper reference limit was demonstrated to be < 0.03 ng/mL. 9 Standard intensity warfarin therapeutic range: 2.0-3.0 High intensity warfarin therapeutic range: 2.5-3.5 10 Troponin-I testing on Plasma Separator Tubes (PST) has a known false positive rate of 0.20-0.40%. All positive troponins reflex immediately to secondary confirmatory testing. Using the [employer] DxI 800 Access Immunoassay systems, the 99th percentile upper reference limit was demonstrated to be < 0.03 ng/mL. 11 Troponin-I testing on Plasma Separator Tubes (PST) has a known false positive rate of 0.20-0.40%. All positive troponins reflex immediately to secondary confirmatory testing. Using the [employer] DxI 800 Access Immunoassay systems, the 99th percentile upper reference limit was demonstrated to be < 0.03 ng/mL. 12 SEE RESULT BELOW Name: VERONICA BHAT : [address]: Nicole Guerra MD Acct: [id number] Unit: [id number] AGE: 87 Location: [place] [address] Re08/06/18 SEX: F Status: ADM IN SPEC: [id number] LACEY: 08/05/18 [facility] DR: Dinora CURTIS REQ: [id number] RECD: 08/05/18 STATUS: DAVID CARDENAS DR: Carlos A Quevedo MD PC _ SOURCE: URINE SPDESC: ORDERED: Urine Culture Procedure Result Reported Site Urine Culture Final 08/07/18- 0840 ML Few Enterobacteriacae; possible contamination. * ML - Main Lab . END OF REPORT DEPARTMENT OF PATHOLOGY, [address] [place] [address] Brendon Nicole M.D. Director [facility] # [id number] Procedures Date Code Description Status 01/09/2019 93946 EKG Tracing & Interpretation Completed 01/02/2019 98636 Cardioversion Completed 12/10/2018 74845 Carpal Tunnel Release Completed 12/10/2018 91110 Carpal Tunnel Release Completed 11/19/2018 82140 EKG Tracing & Interpretation Completed 11/03/2018 99758 EKG, Interpretation Only Completed 11/03/2018 36710 Cardioversion Completed 11/02/2018 32471 EKG, Interpretation Only Completed 09/25/2018 Injection, Carpal Tunnel Completed 09/25/2018 Inject/Drain Joint/Bursa Major W/O US Completed 08/20/2018 69975 EKG Tracing & Interpretation Completed 08/18/2018 24299 Cardioversion Completed 08/06/2018 19470 Moderate Sedation Services; Same Phys Intl 15 Mins; PT Completed >= 5 Years 08/06/2018 92376 EKG, Interpretation Only Completed 08/06/2018 35535 Cardioversion Completed 02/21/2018 07393571 Colonoscopy Completed 04/19/2009 60475764 Colonoscopy Completed Medical Devices Description No Information Available Encounters Type Date Location Provider Dx Diagnosis Office Visit 01/09/2019 [facility] Talib Medrano I44.7 Left bundle- branch 8:45a Of Nathaniel Cisneros M.D. 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 Office Visit 01/02/2019 11:03a [facility] Jesus Alberto Collins I48.92 Unspecified Of [facility] DO Lane atrial flutter FACC I44.7 Left bundle-branch block, unspecified I48.0 Paroxysmal atrial fibrillation I13.0 Hyp hrt & chr kdny dis w hrt fail and stg 1-4/unsp chr kdny D63.1 Anemia in chronic kidney disease I50.9 Heart failure, unspecified N18.9 Chronic kidney disease, unspecified I25.10 Athscl heart disease of [place] coronary artery w/o ang pctrs Z98.61 Coronary angioplasty status Z79.01 FPC (current) use of anticoagulants Office Visit 11/27/2018 1:00p [facility] Nephrology Bob Reyes I12.9 Hypertensive MD Celia chronic kidney disease w stg 1-4/unsp chr kdny N18.4 Chronic kidney disease, stage 4 (severe) N17.9 Acute kidney failure, unspecified I10 Essential (primary) hypertension I48.0 Paroxysmal atrial fibrillation Office Visit 11/25/2018 10:15a [facility] Aaron F G56.01 Carpal tunnel at [place] MD Alex syndrome, right upper limb M19.011 Primary osteoarthritis, right shoulder S46.011A Strain of musc/tend the rotator cuff of right shoulder, init Office Visit 11/19/2018 10:45a [facility] Talib Medrano I48.0 Paroxysmal atrial Of Nathaniel Cisneros M.D. 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 Office Visit 11/13/2018 10:00a [facility] Nephrology Bob Reyes N18.4 Chronic kidney MD Celia disease, stage 4 (severe) I12.9 Hypertensive chronic kidney disease w stg 1-4/unsp chr kdny R60.0 Localized edema I48.0 Paroxysmal atrial fibrillation I50.33 Acute on chronic diastolic (congestive) heart failure D64.9 Anemia, unspecified Office Visit 11/03/2018 [facility] Kerline I48.91 Unspecified atrial 9:06a Assoc,lo Garza MD fibrillation Hospitalists M54.9 Dorsalgia, unspecified Office Visit 11/02/2018 11:46a [facility] Harvey Saldana I48.0 Paroxysmal atrial Sandoval Richards fibrillation I50.30 Unspecified diastolic (congestive) heart failure R00.0 Tachycardia, unspecified D64.9 Anemia, unspecified R07.89 Other chest pain [facility], I48.91 Unspecified 9:06a lo Murcia M.D. atrial Hospitalists fibrillation M54.9 Dorsalgia, unspecified N18.4 Chronic kidney disease, stage 4 (severe) Office Visit 09/25/2018 2:30p [facility] Aaron F S46.011A Strain of Orthopedics at MD Alex musc/tend the [place] rotator cuff of right shoulder, init M19.011 Primary osteoarthritis, right shoulder G56.01 Carpal tunnel syndrome, right upper limb S72.002D Fx unsp part of nk of perry boggs, subs for clos fx w routn heal Office Visit 08/20/2018 3:15p [facility] Talib Medrano Z95.2 Presence of Of Nathaniel Cisneros M.D. prosthetic heart valve I25.10 Athscl heart disease of [place] coronary artery w/o ang pctrs I48.0 Paroxysmal atrial fibrillation Office [facility], I50.33 Acute on chronic 9:41a lo Murcia M.D. diastolic Hospitalists (congestive) heart failure I48.91 Unspecified atrial fibrillation E83.42 Hypomagnesemia Office Visit 08/06[facility]2018 [facility], I48.91 Unspecified 9:40a lo Murcia M.D. atrial Hospitalists fibrillation I50.33 Acute on chronic diastolic (congestive) heart failure D64.9 Anemia, unspecified N18.3 Chronic kidney disease, stage 3 (moderate) Office Visit 08/06/2018 2:28p [facility] Conchita Thompson I48.91 Unspecified atrial Cardiology Of [facility] fibrillation Counter Clerk I25.10 Athscl heart disease of [place] coronary artery w/o ang pctrs E87.8 Oth disorders of electrolyte and fluid balance, NEC Office Visit 08/05/2018 [facility] Dinora I48.91 Unspecified 9:39a Assoc,pc Malik, [place] [...] M.D. 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 01/02/2019 I48.92 Unspecified atrial flutter Jesus Alberto Sherman, DO FAC 01/02/2019 I44.7 Left bundle-branch block, unspecified Jesus Alberto Sherman, DO FAC 01/02/2019 I48.0 Paroxysmal atrial fibrillation Jesus Alberto Sherman DO FAC 01/02/2019 I13.0 Hypertensive heart and chronic kidney Jesus Alberto Sherman, DO [facility] disease with heart failure and stage 1 through stage 4 chronic kidney disease, or unspecified chronic kidney disease 01/02/2019 D63.1 Anemia in chronic kidney disease Jesus Alberto Sherman DO FACC 01/02/2019 I50.9 Heart failure, unspecified Jesus Alberto Sherman, DO FACC 01/02/2019 N18.9 Chronic kidney disease, unspecified Jesus Alberto Sherman, DO FACC 01/02/2019 I25.10 Atherosclerotic heart disease of [place] Jesus Alberto Sherman, DO [facility]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 coronary artery with 11/19/2018 Z95.2 Presence of prosthetic heart valve Talib Cisneros M.D. 11/13/2018 N18.4 Chronic kidney disease, stage 4 (severe) Bob Yang MD 11/13/2018 I12.9 Hypertensive chronic kidney disease with Bob Yang MD stage 1 through stage 4 chronic kidney disease, or unspecified chronic kidney disease 11/13/2018 R60.0 Localized edema Bob Yang MD 11/13/2018 I48.0 Paroxysmal atrial fibrillation Bob Ynag MD 11/13/2018 I50.33 Acute on chronic diastolic (congestive) Bob Yang MD heart failure 11/13/2018 D64.9 Anemia, unspecified Bob Yang MD 11/03/2018 R94.31 Abnormal electrocardiogram [ECG] [EKG] Jesus Alberto Sherman DO [facility] 11/03/2018 I48.91 Unspecified atrial fibrillation Talib [...] M.D. 08/20/2018 I25.10 Atherosclerotic heart disease of [place] Talib Cisneros M.D. coronary artery with 08/20/2018 [...] failure 08/06/2018 I25.10 Atherosclerotic heart disease of [place] Conchita Thompson M.D. coronary artery with 08/06/2018 [...] hyponatremia KIRSTEN Mae Plan of Treatment Future Appointment(s):02/11/2019 11:15 am - Talib Cisneros M.D. at [facility]02/03/2019 9:30 am - Talib Cisneros M.D. at [facility]07/10/2019 9:45 am - Talib Cisneros M.D. at [facility]01/22/2019 - ENOC Poe56.01 Carpal tunnel syndrome, right upper limbFollow up:Follow up: As needed Functional Status Description No Information Available Mental Status Description No Information Available Referrals Description No Information Available
--- OUTSIDE RECORDS SUMMARY | 2019-01-31 12:28 | XMS REPORT | Continuity of Care Document ---
:1930 External Reference #:[id number] Author Name Cash Lees M.D. (transmitted by agent of provider Helene Johnson) Address [address] [facility] [address] [place] [address] Care Team Providers Name Role Phone Susy Quevedo MD - Internal Care Team Information [employer] [phone] Medicine Sahil Pang MD - Internal Care Team Information [employer] [phone] Medicine Problems Active Problems Provider Date Aortic [...] Result H/L Range Note Neph Routine 11/20/2018 [facility] Total Protein 6 mg/dL [address] [place] [address] [phone] Creatinine Random Urine 19.84 mg/dL CBC Auto 11/20/2018 [facility] White Blood 5.4 10^3/uL Normal 3.5-10.[address] [place] [address] [phone] Red Blood Count 3.23 10^6/uL Low 3.70-4.87 [...] Blood Cells % 0.0 Urinalysis Profile 11/20/2018 [facility] Urine Color Yellow [address] [place] [address] [phone] Urine Appearance Cloudy Urine Specific [place] 1.005 Low 1.010-1.030 Urine pH 7.0 Normal 5-9 Urine Urobilinogen Negative Negative Urine Ketones Negative Negative Urine Protein Negative Negative Urine Leukocytes Negative Negative Urine Blood Negative Negative Urine Nitrite Negative Negative Urine Bilirubin Negative Negative Urine Glucose Negative Negative Basic Metabolic 11/20/2018 [facility] Sodium 140 mmol/L Normal 135-[address] [place] [address] [phone] Potassium 4.1 mmol/L Normal 3.5-5.0 Chloride 102 mmol/L Normal 101-111 Co2 Carbon Dioxide 31 mmol/L Normal 22-32 Anion Gap 7 mmol/L Normal 2-11 Glucose 89 mg/dL Normal 70-100 Blood Urea Nitrogen 22 mg/dL Normal 6-24 Creatinine 1.67 mg/dL High 0.51-0.95 BUN/Creatinine Ratio 13.2 Normal 8-20 Calcium 9.1 mg/dL Normal 8.6-10.3 Egfr Non- 29.0 >60 Egfr 35.0 >60 1 Protein 11/20/2018 [facility] Total 6.5 g/dL 6.3 - Electrophoresis [address] Protein(Pep) 7.9 [place] [address] [phone] Albumin 3.4 g/dL 3.4-4.7 Alpha-1 Globulin 0.3 g/dL 0.1-0.3 Alpha-2 Globulin 1.0 g/dL 0.6-1.0 Beta Globulin 1.0 g/dL 0.7-1.2 Gamma Globulin 0.9 g/dL 0.6-1.6 Albumin/Globulin Ratio 1.13 Impression See Comment 2 Day/Lambda Free 11/20/2018 [facility] Day Free 6.31 mg/dL Abnormal [address] [place] [address] [phone] Lambda Free Light Chain 2.74 mg/dL Abnormal 4 Day/Lambda Free Light Chain 2.30 Abnormal 5 Laboratory test 11/20/2018 [facility] TSH (Thyroid 7.09 High 0.34-5.[address] Stim Horm) mcIU/[place] [address] [phone] T3 Free 2.30 pg/mL Low 2.5-3.9 Free T4 (Free Thyroxine) 1.16 ng/dL High 0.61-1.12 T3 Total 51 ng/dL Low 87-178 Thyroperoxidase AB 0.20 IU/mL Normal <9 Thyroglobulin AB 0.0 IU/mL <4.0 Thyroid Stimulating Igg (Tsi) <1.0 TSIindex <=1.3 6 Comp Metabolic Panel 08/18/2018 [facility] Sodium 134 mmol/L Low 135-[address] [place] [address] [phone] Potassium 3.6 mmol/L Normal 3.5-5.0 Chloride 98 [...] Egfr 34.9 >60 7 Laboratory test 08/18/2018 [facility] Magnesium 1.8 mg/dL Low 1.9-2.[address] [place] [address] [phone] Troponin-I (TnI) 0.01 ng/mL <0.04 8 TSH (Thyroid Stim Horm) 4.36 mcIU/mL Normal 0.34-5.60 Free T4 (Free Thyroxine) 1.16 ng/dL High 0.61-1.12 Inr/Protime 08/18/2018 [facility] Inr 1.85 High 0.82-1.[address] [place] [address] [phone] CBC Auto Diff 08/18/2018 [facility] White Blood 7.5 Normal 3.5 -10.[address] Count 10^3/[place] [address] [phone] Red Blood Count 2.96 10^6/uL Low 3.70-4.87 [...] Blood Cells % 0.0 Laboratory test 08/18/2018 [facility] Troponin-I (TnI) 0.01 ng/ mL <0.04 10 finding [address] [place] [address] [phone] Laboratory test 08/18/2018 [facility] Troponin-I (TnI) 0.01 ng/ mL <0.04 11 finding [address] [place] [address] [phone] Urinalysis 08/05/2018 [facility] Urine Color Yellow [place] [address] [place] [address] [phone] Urine Appearance Clear Urine Specific [place] 1.005 Low 1.010-1.030 Urine pH 6.0 Normal 5-9 Urine Urobilinogen Negative Negative Urine Ketones Negative Negative Urine Protein Negative Negative Urine Leukocytes 1+ Abnormal Negative Urine Blood Negative Negative Urine Nitrite Negative Negative Urine Bilirubin Negative Negative Urine Glucose Negative Negative Urine White Blood Cell Trace(0-5/hpf) Absent Urine Red Blood Cell Absent Absent Urine Bacteria Absent Absent Urine Culture And 08/05/2018 [facility] Urine Culture SEE RESULT [address] [place] [address] [phone] 1 Because ethnic data is not always [...] protein on serum electrophoresis. Test Performed by: [facility] [employer] [address] [place] [address] [place]: Mick Covington M.D. Ph.D.; CLIA# [id number] 3 REFERENCE VALUE 0.3300-1.94 4 REFERENCE VALUE 0.5700-2.63 5 Elevated free light chain ratios between 1.66 and 3.00 may occur due to polyclonal hypergammaglobulinemia or impaired renal clearance. An isolated increased free light chain ratio in this range should be interpreted with caution, and clinical correlation is recommended. REFERENCE VALUE 0.2600-1.65 Test Performed by: [facility] [employer] [address] [place] [address] [employer]: Mick Covington M.D. Ph.D.; CLIA# [id number] 6 Test Performed by: [address] [address] [place]: Mick Covington M.D. Ph.D.; [facility]# [id number] 7 Because ethnic data is not always [...] immediately to secondary confirmatory testing. Using the [employer] DxI 800 Access Immunoassay systems, the 99th percentile upper reference limit was demonstrated to be < 0.03 ng/mL. 9 Standard intensity warfarin therapeutic range: 2.0-3.0 High intensity warfarin therapeutic range: 2.5-3.5 10 Troponin-I testing on Plasma Separator Tubes (PST) has a known false positive rate of 0.20-0.40%. All positive troponins reflex immediately to secondary confirmatory testing. Using the [employer] DxI 800 Access Immunoassay systems, the 99th percentile upper reference limit was demonstrated to be < 0.03 ng/mL. 11 Troponin-I testing on Plasma Separator Tubes (PST) has a known false positive rate of 0.20-0.40%. All positive troponins reflex immediately to secondary confirmatory testing. Using the [employer] DxI 800 Access Immunoassay systems, the 99th percentile upper reference limit was demonstrated to be < 0.03 ng/mL. 12 SEE RESULT BELOW Name: VERONICA BHAT : [address]: Nicole Guerra MD Acct: [id number] Unit: [id number] AGE: 87 Location: [place] [address] Re08/06/18 SEX: F Status: ADM IN SPEC: [id number] LACEY: 08/05/18 [facility] DR: Dinora CURTIS REQ: [id number] RECD: 08/05/18 STATUS: DAVID CARDENAS DR: Carlos A Quevedo MD PC _ SOURCE: URINE SPDESC: ORDERED: Urine Culture Procedure Result Reported Site Urine Culture Final 08/07/18- 0840 ML Few Enterobacteriacae; possible contamination. * ML - Main Lab . END OF REPORT DEPARTMENT OF PATHOLOGY, [address] [place] [address] Brendon Nicole M.D. Director [facility] # [id number] Procedures Date Code Description Status 01/09/2019 79991 EKG Tracing & Interpretation Completed 01/02/2019 17764 Cardioversion Completed 12/10/2018 62632 Carpal Tunnel Release Completed 12/10/2018 92699 Carpal Tunnel Release Completed 11/19/2018 06957 EKG Tracing & Interpretation Completed 11/03/2018 13061 EKG, Interpretation Only Completed 11/03/2018 98075 Cardioversion Completed 11/02/2018 41247 EKG, Interpretation Only Completed 09/25/2018 Injection, Carpal Tunnel Completed 09/25/2018 Inject/Drain Joint/Bursa Major W/O US Completed 08/20/2018 13653 EKG Tracing & Interpretation Completed 08/18/2018 91257 Cardioversion Completed 08/06/2018 24675 Moderate Sedation Services; Same Phys Intl 15 Mins; PT Completed >= 5 Years 08/06/2018 17390 EKG, Interpretation Only Completed 08/06/2018 46691 Cardioversion Completed 02/21/2018 [id number] Colonoscopy Completed 04/19/2009 12763662 Colonoscopy Completed Medical Devices Description No Information Available Encounters Type Date Location Provider Dx Diagnosis Office Visit 01/09/2019 [facility] Talib Medrano I44.7 Left bundle- branch 8:45a Of Nathaniel Cisneros M.D. 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 I50.9 Heart failure, unspecified N18.9 Chronic kidney disease, unspecified I25.10 Athscl heart disease of [place] coronary artery w/o ang pctrs Z98.61 Coronary angioplasty status Z79.01 shelter (current) use of anticoagulants Office Visit 11/27/2018 1:00p [facility] Bob Reyes I12.9 Hypertensive MD Celia chronic kidney disease w stg 1-4/unsp chr kdny N18.4 Chronic kidney disease, stage 4 (severe) N17.9 Acute kidney failure, unspecified I10 Essential (primary) hypertension I48.0 Paroxysmal atrial fibrillation Office Visit 11/25/2018 10:15a [facility] Aaron F G56.01 Carpal tunnel at [facility] MD Alex syndrome, right upper limb M19.011 Primary osteoarthritis, right shoulder S46.011A Strain of musc/tend the rotator cuff of right shoulder, init Office Visit 11/19/2018 10:45a [facility] Talib Medrano I48.0 Paroxysmal atrial Of Nathaniel Cisneros M.D. 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 Office Visit 11/13/2018 10:00a [facility] Bob Reyes N18.4 Chronic kidney MD Celia disease, stage 4 (severe) I12.9 Hypertensive chronic kidney disease w stg 1-4/unsp chr kdny R60.0 Localized edema I48.0 Paroxysmal atrial fibrillation I50.33 Acute on chronic diastolic (congestive) heart failure D64.9 Anemia, unspecified Office Visit 11/03/2018 [facility] Kerline I48.91 Unspecified atrial 9:06a Assoc,lo Garza MD fibrillation Hospitalists M54.9 Dorsalgia, unspecified Office Visit 11/02/2018 11:46a [facility] Harvey Saldana I48.0 Paroxysmal atrial Sandoval Richards fibrillation I50.30 Unspecified diastolic (congestive) heart failure R00.0 Tachycardia, unspecified D64.9 Anemia, unspecified R07.89 Other chest pain [facility] I48.91 Unspecified 9:06a lo Murcia M.D. atrial Hospitalists fibrillation M54.9 Dorsalgia, unspecified N18.4 Chronic kidney disease, stage 4 (severe) Office Visit 09/25/2018 2:30p [facility] Aaron F S46.011A Strain of Orthopedics at MD Alex musc/tend the [facility] rotator cuff of right shoulder, init M19.011 Primary osteoarthritis, right shoulder G56.01 Carpal tunnel syndrome, right upper limb S72.002D Fx unsp part of nk of perry boggs, subs for clos fx w routn heal Office Visit 08/20/2018 3:15p [facility] Talib Medrano Z95.2 Presence of Of Nathaniel Cisneros M.D. prosthetic heart valve I25.10 Athscl heart disease of [place] coronary artery w/o ang pctrs I48.0 Paroxysmal atrial fibrillation Office [facility] I50.33 Acute on chronic 9:41a lo Murcia M.D. diastolic Hospitalists (congestive) heart failure I48.91 Unspecified atrial fibrillation E83.42 Hypomagnesemia Office Visit [facility]/06[facility]2018 [facility], I48.91 Unspecified 9:40a lo Murcia M.D. atrial Hospitalists fibrillation I50.33 Acute on chronic diastolic (congestive) heart failure D64.9 Anemia, unspecified N18.3 Chronic kidney disease, stage 3 (moderate) Office Visit 08/06/2018 2:28p [facility] Conchita Thompson I48.91 Unspecified atrial Cardiology Of AzeemDCasey fibrillation [employer] I25.10 Athscl heart disease of [place] coronary artery w/o ang pctrs E87.8 Oth disorders of electrolyte and fluid balance, NEC Office Visit 08/05/2018 [facility] Dinora I48.91 Unspecified 9:39a Assoc,pc Malik, [...] M.D. 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 01/02/2019 I48.92 Unspecified atrial flutter Jesus Alberto Sherman, DO FAC 01/02/2019 I44.7 Left bundle-branch block, unspecified Jesus Alberto Sherman, DO FAC 01/02/2019 I48.0 Paroxysmal atrial fibrillation Jesus Alberto Sherman DO FAC 01/02/2019 I13.0 Hypertensive heart and chronic kidney Jesus Alberto Sherman, DO [facility] disease with heart failure and stage 1 through stage 4 chronic kidney disease, or unspecified chronic kidney disease 01/02/2019 D63.1 Anemia in chronic kidney disease Jesus Alberto Sherman DO FACC 01/02/2019 I50.9 Heart failure, unspecified Jesus Alberto Sherman, DO FACC 01/02/2019 N18.9 Chronic kidney disease, unspecified Jesus Alberto Sherman, DO FACC 01/02/2019 I25.10 Atherosclerotic heart disease of [place] Jesus Alberto Sherman, 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 coronary artery with 11/19/2018 [...] electrocardiogram [ECG] [EKG] Jesus Alberto Sherman DO [facility] 11/03/2018 I48.91 Unspecified atrial fibrillation Talib [...] M.D. 08/20/2018 I25.10 Atherosclerotic heart disease of [place] Talib Cisneros M.D. coronary artery with 08/20/2018 [...] failure 08/06/2018 I25.10 Atherosclerotic heart disease of [place] Conchita Thompson M.D. coronary artery with 08/06/2018 [...] 9:45 am - Talib Cisneros M.D. at [facility]01/22/2019 - ENOC Poe56.01 Carpal tunnel syndrome, right upper limbFollow up:Follow up: As needed Functional Status Description No Information Available Mental Status Description No Information Available Referrals Description No Information Available
--- OUTSIDE RECORDS SUMMARY | 2019-01-31 12:28 | XMS REPORT | Continuity of Care Document ---
:1930 External Reference #:[id number] Author Name Cash Lees M.D. (transmitted by agent of provider Helene Johnson) Address [address] [place] [address] Care Team Providers Name Role Phone Susy Quevedo MD - Internal Care Team Information Repairer [employer] [phone] Medicine Sahil Pang MD - Internal Care Team Information Repairer [employer] Medicine Problems Active Problems Provider Date Aortic [...] Result H/L Range Note Neph Routine 11/20/2018 [facility] [place] Total Protein 6 mg/dL [address] [place] [address] [phone] Creatinine Random Urine 19.84 mg/dL CBC Auto 11/20/2018 [facility] [place] White Blood 5.4 10^3/uL Normal 3.5-10.[address] [place] [address] [phone] Red Blood Count 3.23 10^6/uL Low 3.70-4.87 [...] Blood Cells % 0.0 Urinalysis Profile 11/20/2018 [facility] [place] Urine Color Yellow [address] [place] [address] [phone] Urine Appearance Cloudy Urine Specific [place] 1.005 Low 1.010-1.030 Urine pH 7.0 Normal 5-9 Urine Urobilinogen Negative Negative Urine Ketones Negative Negative Urine Protein Negative Negative Urine Leukocytes Negative Negative Urine Blood Negative Negative Urine Nitrite Negative Negative Urine Bilirubin Negative Negative Urine Glucose Negative Negative Basic Metabolic 11/20/2018 [facility] [place] Sodium 140 mmol/L Normal 135-[address] [place] [address] [phone] Potassium 4.1 mmol/L Normal 3.5-5.0 Chloride 102 mmol/L Normal 101-111 Co2 Carbon Dioxide 31 mmol/L Normal 22-32 Anion Gap 7 mmol/L Normal 2-11 Glucose 89 mg/dL Normal 70-100 Blood Urea Nitrogen 22 mg/dL Normal 6-24 Creatinine 1.67 mg/dL High 0.51-0.95 BUN/Creatinine Ratio 13.2 Normal 8-20 Calcium 9.1 mg/dL Normal 8.6-10.3 Egfr Non- 29.0 >60 Egfr 35.0 >60 1 Protein 11/20/2018 [facility] [place] Total 6.5 g/dL 6.3 - Electrophoresis [address] Protein(Pep) 7.9 [place] [address] [phone] Albumin 3.4 g/dL 3.4-4.7 Alpha-1 Globulin 0.3 g/dL 0.1-0.3 Alpha-2 Globulin 1.0 g/dL 0.6-1.0 Beta Globulin 1.0 g/dL 0.7-1.2 Gamma Globulin 0.9 g/dL 0.6-1.6 Albumin/Globulin Ratio 1.13 Impression See Comment 2 [place]/Lambda Free 11/20/2018 [facility] [place] Free 6.31 mg/dL Abnormal [address] Light [address] [place] [address] [phone] Lambda Free Light Chain 2.74 mg/dL Abnormal 4 [place]/Lambda Free Light Chain 2.30 Abnormal 5 Laboratory test 11/20/2018 [facility] [place] TSH (Thyroid 7.09 High 0.34-5.[address] Stim Horm) mcIU/[place] [address] [phone] T3 Free 2.30 pg/mL Low 2.5-3.9 Free T4 (Free Thyroxine) 1.16 ng/dL High 0.61-1.12 T3 Total 51 ng/dL Low 87-178 Thyroperoxidase AB 0.20 IU/mL Normal <9 Thyroglobulin AB 0.0 IU/mL <4.0 Thyroid Stimulating Igg (Tsi) <1.0 TSIindex <=1.3 6 Comp Metabolic Panel 08/18/2018 [facility] [place] Sodium 134 mmol/L Low 135-[address] [place] [address] [phone] Potassium 3.6 mmol/L Normal 3.5-5.0 Chloride 98 [...] Egfr 34.9 >60 7 Laboratory test 08/18/2018 [facility] [place] Magnesium 1.8 mg/dL Low 1.9-2.[address] [place] [address] [phone] Troponin-I (TnI) 0.01 ng/mL <0.04 8 TSH (Thyroid Stim Horm) 4.36 mcIU/mL Normal 0.34-5.60 Free T4 (Free Thyroxine) 1.16 ng/dL High 0.61-1.12 Inr/Protime 08/18/2018 [facility] [place] Inr 1.85 High 0.82-1.[address] [place] [address] [phone] CBC Auto Diff 08/18/2018 [facility] [place] White Blood 7.5 Normal 3.5 -10.[address] Count 10^3/[place] [address] [phone] Red Blood Count 2.96 10^6/uL Low 3.70-4.87 [...] Blood Cells % 0.0 Laboratory test 08/18/2018 [facility] [place] Troponin-I (TnI) 0.01 ng/ mL <0.04 10 finding [address] [place] [address] [phone] Laboratory test 08/18/2018 [facility] [place] Troponin-I (TnI) 0.01 ng/ mL <0.04 11 finding [address] [place] [address] [phone] Urinalysis 08/05/2018 [facility] [place] Urine Color Yellow Profile [address] [place] [address] [phone] Urine Appearance Clear Urine Specific [place] 1.005 Low 1.010-1.030 Urine pH 6.0 Normal 5-9 Urine Urobilinogen Negative Negative Urine Ketones Negative Negative Urine Protein Negative Negative Urine Leukocytes 1+ Abnormal Negative Urine Blood Negative Negative Urine Nitrite Negative Negative Urine Bilirubin Negative Negative Urine Glucose Negative Negative Urine White Blood Cell Trace(0-5/hpf) Absent Urine Red Blood Cell Absent Absent Urine Bacteria Absent Absent Urine Culture And 08/05/2018 [facility] [place] Urine Culture SEE RESULT [address] [place] [address] [phone] 1 Because ethnic data is not always [...] protein on serum electrophoresis. Test Performed by: [facility] [employer] [address] [place] [address] Diamond Setter Apprentice: Mick Cvoington M.D. Ph.D.; CLIA# [id number] 3 REFERENCE VALUE 0.3300-1.94 4 REFERENCE VALUE 0.5700-2.63 5 Elevated free light chain ratios between 1.66 and 3.00 may occur due to polyclonal hypergammaglobulinemia or impaired renal clearance. An isolated increased free light chain ratio in this range should be interpreted with caution, and clinical correlation is recommended. REFERENCE VALUE 0.2600-1.65 Test Performed by: [facility] [address] [place] [address] Diamond Setter Apprentice: Mick Covington M.D. Ph.D.; CLIA# [id number] 6 Test Performed by: [address] [address] Diamond Setter Apprentice: Mick Covington M.D. Ph.D.; [facility]# [id number] 7 Because ethnic data is not always [...] immediately to secondary confirmatory testing. Using the [employer] DxI 800 Access Immunoassay systems, the 99th percentile upper reference limit was demonstrated to be < 0.03 ng/mL. 9 Standard intensity warfarin therapeutic range: 2.0-3.0 High intensity warfarin therapeutic range: 2.5-3.5 10 Troponin-I testing on Plasma Separator Tubes (PST) has a known false positive rate of 0.20-0.40%. All positive troponins reflex immediately to secondary confirmatory testing. Using the [employer] DxI 800 Access Immunoassay systems, the 99th percentile upper reference limit was demonstrated to be < 0.03 ng/mL. 11 Troponin-I testing on Plasma Separator Tubes (PST) has a known false positive rate of 0.20-0.40%. All positive troponins reflex immediately to secondary confirmatory testing. Using the [employer] DxI 800 Access Immunoassay systems, the 99th percentile upper reference limit was demonstrated to be < 0.03 ng/mL. 12 SEE RESULT BELOW Name: VERONICA BHAT : [address]: Nicole Guerra MD Acct: [id number] Unit: [id number] AGE: 87 Location: [place] [address] Re08/06/18 SEX: F Status: ADM IN SPEC: [id number] LACEY: 08/05/18 [facility] DR: Dinora CURTIS REQ: [id number] RECD: 08/05/18 STATUS: DAVID CARDENAS DR: Carlos A Quevedo MD PC _ SOURCE: URINE SPDESC: ORDERED: Urine Culture Procedure Result Reported Site Urine Culture Final 08/07/18- 0840 ML Few Enterobacteriacae; possible contamination. * ML - Main Lab . END OF REPORT DEPARTMENT OF PATHOLOGY, [address] [place] [address] Brendon Nicole M.D. Director [facility] # [id number] Procedures Date Code Description Status 01/09/2019 52946 EKG Tracing & Interpretation Completed 01/02/2019 56887 Cardioversion Completed 12/10/2018 38508 Carpal Tunnel Release Completed 12/10/2018 01721 Carpal Tunnel Release Completed 11/19/2018 04818 EKG Tracing & Interpretation Completed 11/03/2018 26095 EKG, Interpretation Only Completed 11/03/2018 61757 Cardioversion Completed 11/02/2018 73116 EKG, Interpretation Only Completed 09/25/2018 Injection, Carpal Tunnel Completed 09/25/2018 Inject/Drain Joint/Bursa Major W/O US Completed 08/20/2018 37666 EKG Tracing & Interpretation Completed 08/18/2018 00855 Cardioversion Completed 08/06/2018 13871 Moderate Sedation Services; Same Phys Intl 15 Mins; PT Completed >= 5 Years 08/06/2018 35426 EKG, Interpretation Only Completed 08/06/2018 24627 Cardioversion Completed 02/21/2018 32821617 Colonoscopy Completed 04/19/2009 [id number] Colonoscopy Completed Medical Devices Description No Information Available Encounters Type Date Location Provider Dx Diagnosis Office Visit 01/09/2019 [facility] Talib Medrano I44.7 Left bundle- branch 8:45a Of Nathaniel Cisneros M.D. 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 Z98.61 Coronary angioplasty status Z79.01 detention (current) use of anticoagulants Office Visit 11/27/2018 1:00p [facility]rology Bob Reyes I12.9 Hypertensive 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 Office Visit 11/13/2018 10:00a [facility] Bob Reyes N18.4 Chronic kidney MD Celia disease, stage 4 (severe) I12.9 Hypertensive chronic kidney disease w stg 1-4/unsp chr kdny R60.0 Localized edema I48.0 Paroxysmal atrial fibrillation I50.33 Acute on chronic diastolic (congestive) heart failure D64.9 Anemia, unspecified Office Visit 11/03/2018 [facility] Kerline I48.91 Unspecified atrial 9:06a Assoc,lo Garza MD fibrillation Hospitalists M54.9 Dorsalgia, unspecified Office Visit 11/02/2018 11:46a [facility] Harvey Saldana I48.0 Paroxysmal atrial Sandoval Richards fibrillation I50.30 Unspecified diastolic (congestive) heart failure R00.0 Tachycardia, unspecified D64.9 Anemia, unspecified R07.89 Other chest pain [facility], I48.91 Unspecified 9:06a lo Murcia M.D. atrial Hospitalists fibrillation M54.9 Dorsalgia, unspecified N18.4 Chronic kidney disease, stage 4 (severe) Office Visit 09/25/2018 2:30p [place] Aaron F S46.011A Strain of Orthopedics at MD Alex musc/tend the [facility] rotator cuff of right shoulder, init M19.011 Primary osteoarthritis, right shoulder G56.01 Carpal tunnel syndrome, right upper limb S72.002D Fx unsp part of nk of perry boggs, subs for clos fx w routn heal Office Visit 08/20/2018 3:15p [facility] Talib Medrano Z95.2 Presence of Of Nathnaiel Cisneros M.D. 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 diastolic Hospitalists (congestive) heart failure I48.91 Unspecified atrial fibrillation E83.42 Hypomagnesemia Office Visit 08/06/2018 [facility], I48.91 Unspecified 9:40a lo Murcia M.D. 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 01/02/2019 I48.92 Unspecified atrial flutter Jesus Alberto Sherman, DO FAC 01/02/2019 I44.7 Left bundle-branch block, unspecified Jesus Alberto Sherman, DO FAC 01/02/2019 I48.0 Paroxysmal atrial fibrillation Jesus Alberto Sherman DO FAC 01/02/2019 I13.0 Hypertensive heart and chronic kidney Jesus Alberto Sherman, DO [facility] disease with heart failure and stage 1 through stage 4 chronic kidney disease, or unspecified chronic kidney disease 01/02/2019 D63.1 Anemia in chronic kidney disease Jesus Alberto Sherman DO FACC 01/02/2019 I50.9 Heart failure, unspecified Jesus Alberto Sherman, DO FACC 01/02/2019 N18.9 Chronic kidney disease, unspecified Jesus Alberto Sherman, DO FACC 01/02/2019 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 11/03/2018 I48.91 Unspecified atrial fibrillation Kerline Garza MD 11/03/2018 M54.9 Dorsalgia, unspecified Kerline Garza MD 11/02/2018 R94.31 Abnormal electrocardiogram [ECG] [EKG] Harvey Richards M.D. 11/02/2018 I48.0 Paroxysmal atrial fibrillation Harvey Richards M.D. 11/02/2018 I48.91 Unspecified atrial fibrillation Nicole Geurra M.D. 11/02/2018 I50.30 Unspecified diastolic (congestive) heart [...] M.D. 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 coronary artery with 08/20/2018 [...] failure 08/06/2018 I25.10 Atherosclerotic heart disease of eek Conchita Thompson M.D. coronary artery with 08/06/2018 [...] 9:45 am - Talib Cisneros M.D. at [facility]01/22/2019 - ENOC Poe56.01 Carpal tunnel syndrome, right upper limbFollow up:Follow up: As needed Functional Status Description No Information Available Mental Status Description No Information Available Referrals Description No Information Available
--- OUTSIDE RECORDS SUMMARY | 2019-01-31 12:28 | XMS REPORT | Continuity of Care Document ---
:1930 External Reference #:[id number] Author Name Cash Lees M.D. (transmitted by agent of provider Helene Johnson) Address [address] [facility] [address] [place] [address] Care Team Providers Name Role Phone Susy Quevedo MD - Internal Care Team Information Cannery Tender Engineer [phone] Medicine Sahil Pang MD - Internal Care Team Information Cannery Tender Engineer Medicine Problems Active Problems Provider Date Aortic [...] Result H/L Range Note Neph Routine 11/20/2018 [facility] Total Protein 6 mg/dL [address] [place] [address] [phone] Creatinine Random Urine 19.84 mg/dL CBC Auto 11/20/2018 [facility] White Blood 5.4 10^3/uL Normal 3.5-10.[address] [place] [address] [phone] Red Blood Count 3.23 10^6/uL Low 3.70-4.87 [...] Blood Cells % 0.0 Urinalysis Profile 11/20/2018 [facility] Urine Color Yellow [address] [place] [address] [phone] Urine Appearance Cloudy Urine Specific [place] 1.005 Low 1.010-1.030 Urine pH 7.0 Normal 5-9 Urine Urobilinogen Negative Negative Urine Ketones Negative Negative Urine Protein Negative Negative Urine Leukocytes Negative Negative Urine Blood Negative Negative Urine Nitrite Negative Negative Urine Bilirubin Negative Negative Urine Glucose Negative Negative Basic Metabolic 11/20/2018 [facility] Sodium 140 mmol/L Normal 135-[address] [place] [address] [phone] Potassium 4.1 mmol/L Normal 3.5-5.0 Chloride 102 mmol/L Normal 101-111 Co2 Carbon Dioxide 31 mmol/L Normal 22-32 Anion Gap 7 mmol/L Normal 2-11 Glucose 89 mg/dL Normal 70-100 Blood Urea Nitrogen 22 mg/dL Normal 6-24 Creatinine 1.67 mg/dL High 0.51-0.95 BUN/Creatinine Ratio 13.2 Normal 8-20 Calcium 9.1 mg/dL Normal 8.6-10.3 Egfr Non- 29.0 >60 Egfr 35.0 >60 1 Protein 11/20/2018 [facility] Total 6.5 g/dL 6.3 - Electrophoresis [address] Protein(Pep) 7.9 [place] [address] [phone] Albumin 3.4 g/dL 3.4-4.7 Alpha-1 Globulin 0.3 g/dL 0.1-0.3 Alpha-2 Globulin 1.0 g/dL 0.6-1.0 Beta Globulin 1.0 g/dL 0.7-1.2 Gamma Globulin 0.9 g/dL 0.6-1.6 Albumin/Globulin Ratio 1.13 Impression See Comment 2 Crucible/Lambda Free 11/20/2018 [facility] Crucible Free 6.31 mg/dL Abnormal [address] [place] [address] [phone] Lambda Free Light Chain 2.74 mg/dL Abnormal 4 Crucible/Lambda Free Light Chain 2.30 Abnormal 5 Laboratory test 11/20/2018 [facility] TSH (Thyroid 7.09 High 0.34-5.[address] Stim Horm) mcIU/[place] [address] [phone] T3 Free 2.30 pg/mL Low 2.5-3.9 Free T4 (Free Thyroxine) 1.16 ng/dL High 0.61-1.12 T3 Total 51 ng/dL Low 87-178 Thyroperoxidase AB 0.20 IU/mL Normal <9 Thyroglobulin AB 0.0 IU/mL <4.0 Thyroid Stimulating Igg (Tsi) <1.0 TSIindex <=1.3 6 Comp Metabolic Panel 08/18/2018 [facility] Sodium 134 mmol/L Low 135-[address] [place] [address] [phone] Potassium 3.6 mmol/L Normal 3.5-5.0 Chloride 98 [...] Egfr 34.9 >60 7 Laboratory test 08/18/2018 [facility] Magnesium 1.8 mg/dL Low 1.9-2.[address] [place] [address] [phone] Troponin-I (TnI) 0.01 ng/mL <0.04 8 TSH (Thyroid Stim Horm) 4.36 mcIU/mL Normal 0.34-5.60 Free T4 (Free Thyroxine) 1.16 ng/dL High 0.61-1.12 Inr/Protime 08/18/2018 [facility] Inr 1.85 High 0.82-1.[address] [place] [address] [phone] CBC Auto Diff 08/18/2018 [facility] White Blood 7.5 Normal 3.5 -10.[address] Count 10^3/[place] [address] [phone] Red Blood Count 2.96 10^6/uL Low 3.70-4.87 [...] Blood Cells % 0.0 Laboratory test 08/18/2018 [facility] Troponin-I (TnI) 0.01 ng/ mL <0.04 10 finding [address] [place] [address] [phone] Laboratory test 08/18/2018 [facility] Troponin-I (TnI) 0.01 ng/ mL <0.04 11 finding [address] [place] [address] [phone] Urinalysis 08/05/2018 [facility] Urine Color Yellow Profile [address] [place] [address] [phone] Urine Appearance Clear Urine Specific [place] 1.005 Low 1.010-1.030 Urine pH 6.0 Normal 5-9 Urine Urobilinogen Negative Negative Urine Ketones Negative Negative Urine Protein Negative Negative Urine Leukocytes 1+ Abnormal Negative Urine Blood Negative Negative Urine Nitrite Negative Negative Urine Bilirubin Negative Negative Urine Glucose Negative Negative Urine White Blood Cell Trace(0-5/hpf) Absent Urine Red Blood Cell Absent Absent Urine Bacteria Absent Absent Urine Culture And 08/05/2018 [facility] Urine Culture SEE RESULT [address] [place] [address] [phone] 1 Because ethnic data is not always [...] protein on serum electrophoresis. Test Performed by: [facility] [address] [place] [address] Crackling Press Operator: Mick Covington M.D. Ph.D.; CLIA# [id number] 3 REFERENCE VALUE 0.3300-1.94 4 REFERENCE VALUE 0.5700-2.63 5 Elevated free light chain ratios between 1.66 and 3.00 may occur due to polyclonal hypergammaglobulinemia or impaired renal clearance. An isolated increased free light chain ratio in this range should be interpreted with caution, and clinical correlation is recommended. REFERENCE VALUE 0.2600-1.65 Test Performed by: [facility] [address] [place] [address] Crackling Press Operator: Mick Covington M.D. Ph.D.; CLIA# [id number] 6 Test Performed by: [address] [address] Crackling Press Operator: Mick Covington M.D. Ph.D.; [facility]# [id number] 7 Because ethnic data is not always [...] immediately to secondary confirmatory testing. Using the [employer] DxI 800 Access Immunoassay systems, the 99th percentile upper reference limit was demonstrated to be < 0.03 ng/mL. 9 Standard intensity warfarin therapeutic range: 2.0-3.0 High intensity warfarin therapeutic range: 2.5-3.5 10 Troponin-I testing on Plasma Separator Tubes (PST) has a known false positive rate of 0.20-0.40%. All positive troponins reflex immediately to secondary confirmatory testing. Using the [employer] DxI 800 Access Immunoassay systems, the 99th percentile upper reference limit was demonstrated to be < 0.03 ng/mL. 11 Troponin-I testing on Plasma Separator Tubes (PST) has a known false positive rate of 0.20-0.40%. All positive troponins reflex immediately to secondary confirmatory testing. Using the [employer] DxI 800 Access Immunoassay systems, the 99th percentile upper reference limit was demonstrated to be < 0.03 ng/mL. 12 SEE RESULT BELOW Name: VERONICA BHAT : [address]: Nicole Guerra MD Acct: [id number] Unit: [id number] AGE: 87 Location: [place] [address] Re08/06/18 SEX: F Status: ADM IN SPEC: [id number] LACEY: 08/05/18 [facility] DR: Dinora CURTIS REQ: [id number] RECD: 08/05/18 STATUS: DAVID CARDENAS DR: Carlos A Quevedo MD PC _ SOURCE: URINE SPDESC: ORDERED: Urine Culture Procedure Result Reported Site Urine Culture Final 08/07/18- 0840 ML Few Enterobacteriacae; possible contamination. * ML - Main Lab . END OF REPORT DEPARTMENT OF PATHOLOGY, [address] [place] [address] Brendon Nicole M.D. Director [facility] # [id number] Procedures Date Code Description Status 01/09/2019 92435 EKG Tracing & Interpretation Completed 01/02/2019 87155 Cardioversion Completed 12/10/2018 29493 Carpal Tunnel Release Completed 12/10/2018 58224 Carpal Tunnel Release Completed 11/19/2018 76841 EKG Tracing & Interpretation Completed 11/03/2018 34978 EKG, Interpretation Only Completed 11/03/2018 36587 Cardioversion Completed 11/02/2018 15063 EKG, Interpretation Only Completed 09/25/2018 Injection, Carpal Tunnel Completed 09/25/2018 Inject/Drain Joint/Bursa Major W/O US Completed 08/20/2018 65097 EKG Tracing & Interpretation Completed 08/18/2018 17690 Cardioversion Completed 08/06/2018 25215 Moderate Sedation Services; Same Phys Intl 15 Mins; PT Completed >= 5 Years 08/06/2018 24213 EKG, Interpretation Only Completed 08/06/2018 81005 Cardioversion Completed 02/21/2018 [id number] Colonoscopy Completed 04/19/2009 [id number] Colonoscopy Completed Medical Devices Description No Information Available Encounters Type Date Location Provider Dx Diagnosis Office Visit 01/09/2019 [facility] Talib Medrano I44.7 Left bundle- branch 8:45a Of Nathaniel Cisneros M.D. block, unspecified I48.0 Paroxysmal atrial fibrillation I25.10 Athscl heart disease of [place] coronary artery w/o ang pctrs Office Visit 01/02/2019 11:03a [facility] Jesus Alberto Collins I48.92 Unspecified Of [facility] DO Lane atrial flutter FACC I44.7 Left bundle-branch block, unspecified I48.0 Paroxysmal atrial fibrillation I13.0 Hyp hrt & chr kdny dis w hrt fail and stg 1-4/unsp chr kdny D63.1 Anemia in chronic kidney disease I50.9 Heart failure, unspecified N18.9 Chronic kidney disease, unspecified I25.10 Athscl heart disease of [place] coronary artery w/o ang pctrs Z98.61 Coronary angioplasty status Z79.01 snf (current) use of anticoagulants Office Visit 11/27/2018 1:00p [facility] Nephrology Bob Reyes I12.9 Hypertensive MD Celia chronic kidney disease w stg 1-4/unsp chr kdny N18.4 Chronic kidney disease, stage 4 (severe) N17.9 Acute kidney failure, unspecified I10 Essential (primary) hypertension I48.0 Paroxysmal atrial fibrillation Office Visit 11/25/2018 10:15a [facility] Aaron F G56.01 Carpal tunnel at [facility] MD Alex syndrome, right upper limb M19.011 Primary osteoarthritis, right shoulder S46.011A Strain of musc/tend the rotator cuff of right shoulder, init Office Visit 11/19/2018 10:45a [facility] Talib Medrano I48.0 Paroxysmal atrial Of Nathaniel Cisneros M.D. 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.2 Presence of prosthetic heart valve Office Visit 11/13/2018 10:00a [facility] Nephrology Bob Reyes N18.4 Chronic kidney MD Celia disease, stage 4 (severe) I12.9 Hypertensive chronic kidney disease w stg 1-4/unsp chr kdny R60.0 Localized edema I48.0 Paroxysmal atrial fibrillation I50.33 Acute on chronic diastolic (congestive) heart failure D64.9 Anemia, unspecified Office Visit 11/03/2018 [facility] Kerline I48.91 Unspecified atrial 9:06a Assoc,lo Garza MD fibrillation Hospitalists M54.9 Dorsalgia, unspecified Office Visit 11/02/2018 11:46a [facility] Harvey Saldana I48.0 Paroxysmal atrial Sandoval Richards fibrillation I50.30 Unspecified diastolic (congestive) heart failure R00.0 Tachycardia, unspecified D64.9 Anemia, unspecified R07.89 Other chest pain [facility], I48.91 Unspecified 9:06a lo Murcia M.D. atrial Hospitalists fibrillation M54.9 Dorsalgia, unspecified N18.4 Chronic kidney disease, stage 4 (severe) Office Visit 09/25/2018 2:30p [facility] Aaron F S46.011A Strain of Orthopedics at MD Alex musc/tend the [facility] rotator cuff of right shoulder, init M19.011 Primary osteoarthritis, right shoulder G56.01 Carpal tunnel syndrome, right upper limb S72.002D Fx unsp part of nk of perry boggs, subs for clos fx w routn heal Office Visit 08/20/2018 3:15p [facility] Talib Medrano Z95.2 Presence of Of Nathaniel Cisneros M.D. prosthetic heart valve I25.10 Athscl heart disease of [place] coronary artery w/o ang pctrs I48.0 Paroxysmal atrial fibrillation [facility], I50.33 Acute on chronic 9:41a lo Murcia M.D. diastolic Hospitalists (congestive) heart failure I48.91 Unspecified atrial fibrillation E83.42 Hypomagnesemia Office Visit 08/06[facility], I48.91 Unspecified 9:40a lo Murcia M.D. atrial Hospitalists fibrillation I50.33 Acute on chronic diastolic (congestive) heart failure D64.9 Anemia, unspecified N18.3 Chronic kidney disease, stage 3 (moderate) Office Visit 08/06/2018 2:28p [facility] Conchita Thompson I48.91 Unspecified atrial Cardiology Of AzeemDCasey fibrillation Account Receivable Clerk I25.10 Athscl heart disease of [place] coronary artery w/o ang pctrs E87.8 Oth disorders of electrolyte and fluid balance, NEC Office Visit 08/05/2018 [facility] Dinora I48.91 Unspecified 9:39a Assoc,pc Malik, [...] M.D. 01/09/2019 I25.10 Atherosclerotic heart disease of [place] Talib Cisneros M.D. coronary artery without angina pectoris 01/02/2019 I48.92 Unspecified atrial flutter Jesus Alberto Sherman, DO FAC 01/02/2019 I44.7 Left bundle-branch block, unspecified Jesus Alberto Sherman, DO FAC 01/02/2019 I48.0 Paroxysmal atrial fibrillation Jesus Alberto Sherman DO FAC 01/02/2019 I13.0 Hypertensive heart and chronic kidney Jesus Alberto Sherman, DO [facility] disease with heart failure and stage 1 through stage 4 chronic kidney disease, or unspecified chronic kidney disease 01/02/2019 D63.1 Anemia in chronic kidney disease Jesus Alberto Sherman DO FACC 01/02/2019 I50.9 Heart failure, unspecified Jesus Alberto Sherman, DO FACC 01/02/2019 N18.9 Chronic kidney disease, unspecified Jesus Alberto Sherman, DO FACC 01/02/2019 I25.10 Atherosclerotic heart disease of [place] Jesus Alberto Sherman, DO [facility] coronary artery without angina pectoris 01/02/2019 Z98.61 Coronary angioplasty status Jesus Alberto Sherman DO FAC 01/02/2019 Z79.01 snf (current) use of Jesus Alberto Sherman DO [...] failure 11/19/2018 I25.10 Atherosclerotic heart disease of [place] Talib Cisneros M.D. coronary artery with 11/19/2018 [...] electrocardiogram [ECG] [EKG] Jesus Alberto Sherman DO [facility] 11/03/2018 I48.91 Unspecified atrial fibrillation Talib [...] M.D. 08/20/2018 I25.10 Atherosclerotic heart disease of [place] Talib Cisneros M.D. coronary artery with 08/20/2018 [...] failure 08/06/2018 I25.10 Atherosclerotic heart disease of [place] Conchita Thompson M.D. coronary artery with 08/06/2018 [...] 9:45 am - Talib Cisneros M.D. at [facility]01/22/2019 - ENOC Poe56.01 Carpal tunnel syndrome, right upper limbFollow up:Follow up: As needed Functional Status Description No Information Available Mental Status Description No Information Available Referrals Description No Information Available
[2019-01-31 12:29] LABS: Troponin I 0.02 ng/mL (<0.03)
[2019-01-31 12:30] LABS: Albumin/Globulin Ratio 1.3 (1-3); BUN/Creatinine Ratio 13.3 (8-20); EGFR African American 29.1 (>60); EGFR Non-African American 24.1 (>60)
[2019-01-31 12:31] LABS: CKMB ng/mL 0.9 ng/mL (0.6-6.3)
[2019-01-31 12:50] LABS: TSH (Thyroid Stimulating Horm) 2.89 mcIU/mL (0.34-5.60)
[2019-01-31] MEDS ORDERED: Amiodarone IV VIAL** 50 MG/ML 3 ML (150 MG) VIAL SLOW PUSH ONE (13:04)
[2019-01-31] MEDS ORDERED: Enoxaparin(*) 80 MG/0.8 ML SYR SUBCUT ONE (13:28)
[2019-01-31] MEDS ORDERED: fentaNYL* 50 MCG/ML 2 ML VIAL (100 MCG VIAL) ONE (13:58)
[2019-01-31] MEDS ORDERED: Midazolam* 1 MG/ML 10 ML VIAL (10 MG) ONE (13:58)
--- NOTE | 2019-01-31 14:03 | CONSULT ---
Subjective Date of Service: 01/31/19 Interval History: Consultation [facility] ER 01/31/[address] Reynolds PCP: Dr. Quevedo Physical Therapist: Dr. Cisneros CC: Palpitations Reason for consult: Atrial flutter HISTORY OF PRESENT ILLNESS: Veronica Sherwood is an 88-year-old woman with a history as below including but not limited to poorly tolerated paroxysmal atrial fibrillation and more recently atrial flutter with multiple cardioversions in the past. She is on 300 mg of amiodarone daily. She has not had an atrial flutter ablation. Metoprolol is held due to asymptomatic sinus bradycardia. Eliquis was held yesterday in anticipation for pacemaker Saturday02/03/2019. Yesterday she developed palpitations and weakness and was found with atrial flutter and variable rate related LBBB. She has had no chest pain, syncope, change in breathing, bleeding or melena. She did not eat or drink anything today in anticipation of cardioversion. Risks, benefits and alternatives of cardioversion were discussed and she wished to proceed. She was given 1 mg/kg lovenox subcutaneous in ER PAST MEDICAL HISTORY: - non-ST elevation IA in 2016 in the setting of AFib and underwent cardiac catheterization underwent bare-metal stent for 90% proximal RCA lesion. There is 30% distal left main lesion. - aortic valve replacement from 2012, - hypertension. - CKD/HFpEF - Anemia - Paroxysmal atrial fibrillation and atrial flutter - Intermittent LBBB PAST SURGICAL HISTORY: left hip fracture after fall in the ice in April and a revision in July, cataract surgery. ALLERGIES: She has no known allergies, but does have edema on AMLODIPINE. FAMILY HISTORY: She is , lives with her . She had 3 brothers who of coronary artery disease in their 40s and 50s, 1 in the 60s, and 2 sisters who had open- heart surgery. Her father of CVA at 66. SOCIAL HISTORY: She denies tobacco or alcohol use. She drinks 1 cup of caffeinated coffee a day. She walks with a walker and is able to get around her house usually without a problem. Medications Active Medications: Sodium Chloride (Ns 0.9% 1000 Ml) 1,000 mls @ 1,000 mls/hr IV ONCE ONE Stop: 01/31/19 14:13 Last Admin: 01/31/19 13:17 Dose: 1,000 mls/hr Home Medications: Folic Acid TAB* [Folvite TAB*] 1 mg PO QAM 09/30/12 [History Confirmed 01/25/19] Aspirin EC TAB* [Ecotrin EC Low Dose 81 MG*] 81 mg PO QAM 12/28/14 [History Confirmed 01/25/19] Nitroglycerin TAB 0.4 MG* 0.4 mg SL Q5M PRN #60 tab 10/17/16 [Rx Confirmed 01/25] Cyanocobalamin TAB* [Vitamin B12 TAB*] 1,000 mcg PO QAM 03/06/17 [History Confirmed 01/25/19] Ferrous Sulfate TAB* 325 mg PO QAM 01/10/18 [History Confirmed 01/25/19] Furosemide TAB* [Lasix TAB*] 40 mg PO QAM 11/01/18 [History Confirmed 01/25/19] Docusate CAP* [Colace Cap*] 100 mg PO TID 12/01/18 [History Confirmed 01/25/19] Levothyroxine TAB* [Synthroid 25 MCG TAB*] 50 mcg PO DAILY 12/01/18 [History Confirmed 01/25/19] Apixaban* [Eliquis*] 2.5 mg PO BID 01/15/19 [History Confirmed 01/25/19] Amiodarone TAB* [Cordarone Tab*] 300 mg PO DAILY #30 tab 01/20/19 [Rx Confirmed 01/25/19] Atorvastatin* [Lipitor 10 MG*] 20 mg PO 1700 #60 tab 01/20/19 [Rx Confirmed ] Pantoprazole TAB * [Protonix TAB*] 40 mg PO DAILY #14 tab 01/20/19 [Rx Confirmed 01/25/19] Potassium Chloride* LIQUID [Potassium Chloride LIQUID] 10 meq PO DAILY #1 liquid 01/20/19 [Rx Confirmed 01/25/19] amLODIPine TAB* [Norvasc 5 mg TAB*] 10 mg PO DAILY #60 tab 01/20/19 [Rx Confirmed 01/25/19] Review of Systems - Measurements Intake and Output: Intake and Output Last 24 Hours 01/29/19 01/30/19 01/31/19 02/01/19 06:59 06:59 06:59 06:59 Intake Total 1000 Balance 1000 Weight 178 lb Intake: IV Fluids 1000 - Review of Systems Constitutional Symptoms: Positive: Weakness, Fatigue Dermatology: Negative: Rash, Skin Lesions HEENT: Negative: Change in Hearing, Vertigo Eyes: Negative: Change in Vision, Double Vision Thyroid: Positive: Tremor Negative: Weight Loss, Weight Gain Pulmonary: Positive: Shortness of Breath, Exercise Intolerance Negative: Cough, Sputum, Hemoptysis, Respiratory Distress, Asthma Cardiology: Positive: Edema Negative: Chest Pain, Shortness of Breath, Syncope, Paroxysmal Nocturnal Dyspnea, Orthopnea Gastroenterology: Negative: Haematemesis, Melena Genital - Urinary: Negative: Dysuria, Hematuria Musculoskeletal: Negative: Joint Pain, Joint Stiffness Endocrinology: Negative: Polydipsia, Polyuria Hematologic/Lymphatic: Positive: Use of Anticoagulant, Use of Antiplatelet Drugs Neurology: Negative: Change in Speech, Change in Sphincter Function, Change in Walking, Numbness\Paresthesiae, Unexplained Weakness, Hx of Stroke\TIA, Hx Seizures, Other Psychiatry: Negative: Unusual Anxiety, Suicidal Ideation, Hypomania, Eating Disorders, Other Review of Systems Statement: All other review of systems negative, unless stated above. Objective Vital Signs: Temp Pulse Resp BP Pulse Ox 97.9 F 94 25 144/79 100 01/31/19 11:28 01/31/19 13:37 01/31/19 13:32 01/31/19 13:45 01/31/19 13:37 Appearance: nad, pleasant Ears/Nose/Mouth/Throat: Clear Oropharnyx, Mucous Membranes Moist Neck: NL Appearance and Movements; NL JVP, Trachea Midline Respiratory: Symmetrical Chest Expansion and Respiratory Effort, Clear to Auscultation Cardiovascular: - - irregularly irregular, no significant murmur Abdominal: NL Sounds; No Tenderness; No Distention Extremities: - - 1+ edema Skin: No Rash or Ulcers Neurological: Alert and Oriented x 3 Laboratory Results: 01/31/19 11:45 01/31/19 11:45 APTT 32.0 seconds (26.0-38.0) 01/31/19 11:45 Total Bilirubin 0.70 mg/dL (0.2-1.0) 01/31/19 11:45 AST 21 U/L (13-39) 01/31/19 11:45 ALT 21 U/L (7-52) 01/31/19 11:45 Alkaline Phosphatase 71 U/L (34-104) 01/31/19 11:45 CK-MB (CK-2) 0.9 ng/mL (0.6-6.3) 01/31/19 11:45 B-Natriuretic Peptide 354 pg/mL (<=100) H 01/31/19 11:45 Total Protein 7.0 g/dL (6.4-8.9) 01/31/19 11:45 Albumin 4.0 g/dL (3.2-5.2) 01/31/19 11:45 Globulin 3.0 g/dL (2-4) 01/31/19 11:45 Albumin/Globulin Ratio 1.3 (1-3) 01/31/19 11:45 TSH 2.89 mcIU/mL (0.34-5.60) 01/31/19 11:45 01/31/19 11:45 Troponin I 0.02 Diagnostic Imaging: Exam Date: 01/31/19 IMPRESSION: CARDIOMEGALY WITH NO ACTIVE CARDIOPULMONARY DISEASE. PATIENT IS STATUS POST TRANSSTERNAL THORACOTOMY. Transthoracic Echocardiogram Study Date: 01/16/2019 Summary: - Impressions: The study is unchanged since the study of June 2018. - Left ventricle: The cavity size is normal. Wall thickness is mildly to moderately increased. Systolic function is normal. The estimated ejection fraction is 60-65%. - Mitral valve: The valve area by pressure half-time is 2.4 cm^2. The valve area (LVOT continuity) is 2.3 cm^2. - Aortic valve: There is a bioprosthetic valve. Normal function by 2d and doppler. The peak systolic velocity is 2.1 m/sec. The mean systolic gradient is 11.0 mm Hg. The peak systolic gradient is 18.0 mm Hg. The valve area by the velocity-time integral method is 1.73 cm^2. The ratio of LVOT to aortic valve peak velocity is 0.6. The valve area by the peak velocity method is 1.87 cm^2. - Tricuspid valve: There is mild-moderate regurgitation. - Ascending aorta: The ascending aorta is mildly dilated. - Pulmonary arteries: Systolic pressure is moderately increased, estimated to be 54 mm Hg. EKG Data: EKG x 2 today shows rapid atrial flutter with incomplete and complete LBBB Assessment/Plan 1. Highly symptomatic paroxysmal atrial fibrillation and more recently atrial flutter - On amiodarone 2. HFpEF/CKD 3. CAD s/p PCI 4. HTN 5. Anemia 7. Intermittent LBBB - Patient had successful cardioversion today for atrial flutter lasting < 24 hours. She will continue to hold eliquis for pacemaker plans Saturday. No medication changes. Discussed with Dr. Reynolds Thank you for allowing me to participate in the cardiovascular care of this patient. Please do not hesitate to contact me with questions or concerns.
[2019-01-31] MEDS ORDERED: Midazolam* 1 MG/ML 2 ML VIAL (2 MG) IV SLOW PU ONE (14:08)
--- NOTE | 2019-01-31 14:08 | CONSULT ---
Cardiology Note 01/31/2019 External electrical cardioversion Patient in symptomatic atrial flutter < 24 hours with intermittent aberrant LBBB Risks, benefits and alternatives discussed and patient wished to proceed Patients last dose of eliquis was last PM held in anticipation of pacemaker Arrhythmia is less than 24 hours so YUE not performed 1 mg mg/kg lovenox given 3 mg IV versed, 50 mcg IV fentanyl used for conscious sedation. Patient cardioverted from atrial flutter to sinus rhythm with 75J external electrical sync x 1 No complications Arrhythmia < 24 hours, anticoagulation will continue to be held for in anticipation for pacemaker Saturday02/03/2019
[2019-01-31] MEDS ORDERED: fentaNYL* 50 MCG/ML 2 ML VIAL (100 MCG VIAL) IV SLOW PU ONE (14:09)
[2019-01-31] MEDS ORDERED: Potassium Chloride* LIQUID 20 MEQ/15 ML UDC PO ONE (17:11)
[2019-01-31] MEDS ORDERED: Magnesium Sulfate 1 GM IV* 1 GM/100 ML BAG IV ONE (17:57)
[2019-01-31 18:19] LABS: Urine Appearance Clear; Urine Bilirubin Negative (Negative); Urine Blood Negative (Negative); Urine Color Yellow; Urine Glucose Negative (Negative); Urine Ketones Negative (Negative); Urine Nitrite Negative (Negative); Urine Protein Negative (Negative); Urine Specific Gravity 1.013 (1.010-1.030); Urine Urobilinogen Negative (Negative)
--- NOTE | 2019-01-31 19:16 | HP ---
CC: Dr. Quevedo * [facility] MEDICINE HISTORY AND PHYSICAL: DATE OF ADMISSION: 01/31/19 PRIMARY CARE PHYSICIAN: Dr. Quevedo. ATTENDING PHYSICIAN: Dr. Nicole Guerra * (dictation provided by Patricia June NP ). CHIEF COMPLAINT: Dizziness, weakness. HISTORY OF PRESENT ILLNESS: Ms. Sherwood is an 88-year-old female with a past medical history of atrial fibrillation with multiple cardioversions as well as aortic stenosis with an aortic valve replacement; preserved ejection fraction, heart failure; and chronic kidney disease, who presents to the hospital today with concern for lightheadedness and weakness. Ms. Sherwood states that she was doing well after her discharge home after being admitted to the hospital from to 01/27/19 for atrial fibrillation with rapid ventricular response. She , however, started to feel unwell yesterday. She describes feeling a little lightheaded and weak. She initially thought that perhaps this was related to a new medication for her GERD, likely pantoprazole and the plan was for her to not take pantoprazole this morning in hopes that she would feel better; however , this morning she was feeling worse. She felt weak, shaky and unsteady on her feet. She felt that she was going to pass out and ultimately she called and was brought to the hospital again. Here in the hospital, she was found again to be in atrial fibrillation with rapid ventricular response. She was seen in consultation by Dr. Sherman from the cardiology team and I refer you to his note for complete details, but in brief, he confirmed her AFib and had plan to do cardioversion. The patient was cardioverted in the ED successfully, but after about an hour she was back in atrial fibrillation. She is symptomatic with her AFib and feels a bit lightheaded and dizzy when she gets up to move around. She is asymptomatic at rest. The plan with Cardiology has been for the patient to go for a pacemaker on Saturday of this coming week. Since the patient's AFib is uncontrolled, plans will be to admit her to the hospital for rate control and monitoring while awaiting pacemaker placement. PAST MEDICAL HISTORY: 1. Atrial fibrillation with multiple cardioversions with plan for a pacemaker. 2. Aortic stenosis, status post aortic valve replacement in 2012. 3. Preserved ejection fraction, heart failure. 4. Chronic kidney disease. 5. Hypothyroidism. 6. Hypertension. 7. Anemia. 8. Intermittent left bundle branch block. PAST SURGICAL HISTORY: 1. Left hip fracture after fall. 2. Tlt-ZJ-brbescwej [place] in 2017 in the setting of AFib, bare-metal stent to the proximal RCA. MEDICATIONS: 1. Amlodipine 10 mg p.o. daily. 2. Potassium chloride 10 mEq p.o. daily. 3. Pantoprazole 40 mg p.o. daily. 4. Atorvastatin 20 mg p.o. daily. 5. Amiodarone 300 mg p.o. daily. 6. Levothyroxine 50 mcg p.o. daily. 7. Furosemide 40 mg p.o. q.a.m. 8. Docusate 100 mg p.o. t.i.d. 9. Nitroglycerin p.r.n. 10. Folic acid 1 mg p.o. q.a.m. 11. Ferrous sulfate 325 mg p.o. q.a.m. 12. Cyanocobalamin 1000 mcg p.o. q.a.m. 13. Aspirin 81 mg p.o. q.a.m. The patient had stopped Eliquis today in preparation for her planned pacemaker. FAMILY HISTORY: She has 3 brothers who of coronary artery disease in their 40s and 50s, one in his 60s. She has 2 sisters who have had open heart surgery. Her father of CVA at 66. SOCIAL HISTORY: The patient is . She lives with her . No report of alcohol, tobacco, or drug use. The patient drinks about a cup of coffee a day. She states that her daughter, Bisi, would be the healthcare proxy. REVIEW OF SYSTEMS: A 14-point review of systems was completed with Ms. Sherwood and all those not mentioned above are negative. PHYSICAL EXAMINATION GENERAL: Ms. Sherwood is lying in the bed. She is in no acute distress. VITAL SIGNS: Temperature 97.9, pulse rate 99, respiratory rate 14, O2 saturation 100% on room air, blood pressure 131/71. LUNGS: Clear to auscultation bilaterally with no accessory muscle use and good aeration. HEART: S1, S2. Irregular and rapid. There is no murmur, rub, or gallop. ABDOMEN: Soft, nontender with bowel sounds positive x4. EXTREMITIES: No cyanosis. No significant edema. NEURO: She is alert. She is oriented x3. She moves all extremities equally. There is no facial asymmetry or focal weakness. Extraocular movements are intact. SKIN: Intact. DIAGNOSTIC STUDIES/LAB DATA: Sodium 140, potassium 3.5, chloride 100, serum bicarbonate 30, BUN 26, creatinine 1.96, glucose 124, lactic acid 1.5. Troponin 0.02. BNP 354. TSH 2.89. WBC 5.3, hemoglobin 11.4, hematocrit 34, platelet count 209. Chest x-ray was done today, which showed cardiomegaly with no active cardiopulmonary disease. ASSESSMENT AND PLAN: Ms. Sherwood is an 88-year-old female with a past medical history of atrial fibrillation, status post multiple cardioversions; aortic stenosis with aortic valve replacement; coronary artery disease; heart failure with preserved ejection fraction; hypothyroidism; and chronic kidney disease, who presents to the hospital today with concern for feeling weak, shaky, lightheaded and presyncopal, with finding of rapid atrial fibrillation. Cardioversion was attempted in the ED, but as this was unsuccessful, the patient will require admission to the hospital to be monitored, treated and await pacemaker placement. Our plans are as follows: 1. Rapid atrial fibrillation. I have discussed the case with Dr. Sherman today. He recommends that the patient go on full Lovenox therapy which based on her elevated creatinine would be 80 mg q.24 hours. He has recommended that she resume metoprolol which she had been on previously and that we monitor her on telemetry monitoring, continue amiodarone and the patient will have planned pacemaker likely Saturday, but may be able to be done as early as Saturday depending on the schedule. The patient's potassium is 3.5, plan to replete. Magnesium is 1.9, we will replete that as well for optimization. 2. Hypertension. Plan to continue her furosemide and amlodipine. 3. Hyperlipidemia and coronary artery disease. Continue atorvastatin. 4. Hypothyroidism. Continue levothyroxine. 5. Code status was full code. This was reviewed with the daughter and the patient at the bedside today. TIME SPENT: Approximately 60 minutes was spent on the admission of this patient , more than half the time was spent with the patient at the bedside reviewing the events leading up to this hospitalization, performing the physical examination, and reviewing my plan of care. PATRICIA JUNE, DRY WALL APPLICATOR [id number]/[facility] #: [id number] DONNA
[2019-01-31] MEDS: Metoprolol Tartrate TAB* 25 MG PO SCH (19:29)
[2019-01-31] MEDS ORDERED: Metoprolol Tartrate TAB* 25 MG PO SCH (21:00)
[2019-01-31] MEDS ORDERED: Metoprolol Tartrate IV* 1 MG/ML 5 ML VIAL IV PRN (21:43)
[2019-01-31] MEDS: Docusate CAP* 100 MG PO SCH (22:13)
[2019-02-01] MEDS: Levothyroxine TAB* 50 MCG TAB PO SCH (05:12)
[2019-02-01 07:37] LABS: Calcium 8.8 mg/dL (8.6-10.3); Potassium 3.9 mmol/L (3.5-5.0)
[2019-02-01 07:43] LABS: EGFR African American 36.5 (>60); EGFR Non-African American 30.2 (>60)
[2019-02-01] MEDS: Cyanocobalamin TAB* 500 MCG PO SCH (08:48)
[2019-02-01] MEDS: Ferrous Sulfate TAB* 325 MG PO SCH (08:49)
[2019-02-01] MEDS: Aspirin EC TAB* 81 MG TAB.EC PO SCH (08:50)
[2019-02-01] MEDS: Pantoprazole TAB * 40 MG TAB PO SCH (08:50)
[2019-02-01] MEDS: Metoprolol Tartrate TAB* 25 MG PO SCH ×2 (08:51→20:36)
[2019-02-01] MEDS: Folic Acid TAB* 1 MG PO SCH (08:51)
[2019-02-01] MEDS: Docusate CAP* 100 MG PO SCH ×3 (08:52→20:39)
[2019-02-01] MEDS: Amiodarone TAB* 200 MG PO SCH (08:52)
[2019-02-01] MEDS: Potassium Chloride* LIQUID 20 MEQ/15 ML UDC PO SCH (08:54)
[2019-02-01] MEDS ORDERED: NS 0.9% 1000 ML** 1,000 ML IV SCH (09:00)
[2019-02-01] MEDS ORDERED: Furosemide TAB* 40 MG PO SCH (09:00)
[2019-02-01] MEDS ORDERED: Enoxaparin(*) 80 MG/0.8 ML SYR SUBCUT SCH (12:00)
--- NOTE | 2019-02-01 13:07 | PN ---
Subjective Date of Service: 02/01/19 Interval History: Pt feels well, denies CP or SOB. Has occasional aberrant LBBB when tachy and had 1.5 sec pause at night Objective Active Medications: Amiodarone HCl (Cordarone Tab*) 300 mg PO DAILY [facility] Last Admin: 02/01/19 08:52 Dose: 300 mg Aspirin (Aspirin Ec Tab*) 81 mg PO QAM [facility] Last Admin: 02/01/19 08:50 Dose: 81 mg Atorvastatin Calcium (Lipitor*) 20 mg PO 1700 [facility] Cyanocobalamin (Vitamin B12 Tab*) 1,000 mcg PO QAM [facility] Last Admin: 02/01/19 08:48 Dose: 1,000 mcg Docusate Sodium (Colace Cap*) 100 mg PO TID [facility] Last Admin: 02/01/19 08:52 Dose: 100 mg Enoxaparin Sodium (Lovenox(*)) 80 mg SUBCUT Q24H [facility] Ferrous Sulfate (Ferrous Sulfate Tab*) 325 mg PO QAM [facility] Last Admin: 02/01/19 08:49 Dose: 325 mg Folic Acid (Folvite Tab*) 1 mg PO QAM [facility] Last Admin: 02/01/19 08:51 Dose: 1 mg Furosemide (Lasix Tab*) 40 mg PO QAM [facility] Last Admin: 02/01/19 08:52 Dose: 40 mg Sodium Chloride (Ns 0.9% 1000 Ml) 1,000 mls @ 100 mls/hr IV PER RATE [facility] Stop: 02/01/19 18:59 Last Admin: 02/01/19 09:01 Dose: 100 mls/hr Levothyroxine Sodium (Synthroid Tab*) 50 mcg PO 0600 [facility] Last Admin: 02/01/19 05:12 Dose: 50 mcg Metoprolol Tartrate (Lopressor Tab*) 25 mg PO 0900,2100 [facility] Last Admin: 02/01/19 08:51 Dose: 25 mg Metoprolol Tartrate (Lopressor Iv*) 5 mg IV Q6H PRN PRN Reason: Vtach Pantoprazole Sodium (Protonix Tab*) 40 mg PO DAILY [facility] Last Admin: 02/01/19 08:50 Dose: 40 mg Potassium Chloride (Potassium Chloride Liquid) 10 meq PO DAILY [facility] Last Admin: 02/01/19 08:54 Dose: 10 meq Vital Signs - 8 hr 02/01/19 02/01/19 02/01/19 07:15 07:23 07:53 Temperature 97.7 F Pulse Rate 83 91 Respiratory 18 18 Rate Blood Pressure 90/51 (mmHg) O2 Sat by Pulse 99 Oximetry 02/01/19 11:09 Temperature 97.7 F Pulse Rate 68 Respiratory 16 Rate Blood Pressure 112/55 (mmHg) O2 Sat by Pulse 98 Oximetry Oxygen Devices in Use Now: None Appearance: 88 yo f in nAD, aAOx3 Eyes: No Scleral Icterus, PERRLA Ears/Nose/Mouth/Throat: NL Teeth, Lips, Gums, Mucous Membranes Moist Neck: NL Appearance and Movements; NL JVP, Trachea Midline Respiratory: Symmetrical Chest Expansion and Respiratory Effort, Clear to Auscultation Cardiovascular: - - irregular Abdominal: NL Sounds; No Tenderness; No Distention, No Hepatosplenomegaly Lymphatic: No Cervical Adenopathy Extremities: No Clubbing, Cyanosis, - - trace pedal edema b/l Skin: No Rash or Ulcers, No Nodules or Sclerosis Neurological: Alert and Oriented x 3, NL Muscle Strength and Tone Result Diagrams: 01/31/19 11:45 02/01/19 07:17 Assess/Plan/Problems-Billing Assessment: 88 F with afib s/p multiple failed cardiversions, CAD, HFpEF, CKD, hemiarthroplasty 04/2018, who presents with afib with RVR and SOB, cardiverted in ED-was back to [facility] within 2 hrs, admitted for planned pacemaker 02/03/19 - Patient Problems (1) Atrial fibrillation with rapid ventricular response Comment: hx of multiple cardioversions. Currently on amiodarone at home to cont -Cardiology consulted-cardioversion failed in ED -planned for pacer 02/03 -sanjeev madrigal, on lovenox preop (2) CKD (chronic kidney disease) stage 3, GFR 30-59 ml/min Comment: -at baseline (3) HTN (hypertension) Comment: - normotensive (4) HLD (hyperlipidemia) Comment: - Continue atorvastatin. (5) LBBB (left bundle branch block) Comment: pt goes into LBBB when tachy which alarms as V. tach on telem monitor (6) Hypothyroidism Comment: cont Synthroid (7) DVT prophylaxis Comment: - Eliquis held, on lovenox
--- NOTE | 2019-02-01 15:08 | PN ---
Subjective Date of Service: 02/01/19 Interval History: f/u atrial fibrillation flutter Went back into symptomatic flutter yesterday afternoon and admitted, now atrial fibrillation rate controlled resting comfortably intermittent complete lbbb, mostly rate related Medications Active Medications: Amiodarone HCl (Cordarone Tab*) 300 mg PO DAILY [facility] Last Admin: 02/01/19 08:52 Dose: 300 mg Aspirin (Aspirin Ec Tab*) 81 mg PO QAM [facility] Last Admin: 02/01/19 08:50 Dose: 81 mg Atorvastatin Calcium (Lipitor*) 20 mg PO 1700 [facility] Cyanocobalamin (Vitamin B12 Tab*) 1,000 mcg PO QAM [facility] Last Admin: 02/01/19 08:48 Dose: 1,000 mcg Docusate Sodium (Colace Cap*) 100 mg PO TID [facility] Last Admin: 02/01/19 13:26 Dose: 100 mg Ferrous Sulfate (Ferrous Sulfate Tab*) 325 mg PO QAM [facility] Last Admin: 02/01/19 08:49 Dose: 325 mg Folic Acid (Folvite Tab*) 1 mg PO QAM [facility] Last Admin: 02/01/19 08:51 Dose: 1 mg Furosemide (Lasix Tab*) 40 mg PO QAM [facility] Sodium Chloride (Ns 0.9% 1000 Ml) 1,000 mls @ 50 mls/hr IV PER RATE [facility] Stop: 02/02/19 17:00 Levothyroxine Sodium (Synthroid Tab*) 50 mcg PO 0600 [facility] Last Admin: 02/01/19 05:12 Dose: 50 mcg Metoprolol Tartrate (Lopressor Tab*) 25 mg PO 0900,2100 [facility] Last Admin: 02/01/19 08:51 Dose: 25 mg Metoprolol Tartrate (Lopressor Iv*) 5 mg IV Q6H PRN PRN Reason: Vtach Pantoprazole Sodium (Protonix Tab*) 40 mg PO DAILY [facility] Last Admin: 02/01/19 08:50 Dose: 40 mg Potassium Chloride (Potassium Chloride Liquid) 10 meq PO DAILY [facility] Last Admin: 02/01/19 08:54 Dose: 10 meq Objective Vital Signs: Temp Pulse Resp BP Pulse Ox 97.7 F 68 16 112/55 98 02/01/19 11:09 02/01/19 11:09 02/01/19 11:09 02/01/19 11:09 02/01/19 11:09 Oxygen Devices in Use Now: None Appearance: nad, pleasant Ears/Nose/Mouth/Throat: Clear Oropharnyx, Mucous Membranes Moist Neck: NL Appearance and Movements; NL JVP, Trachea Midline Respiratory: Symmetrical Chest Expansion and Respiratory Effort, Clear to Auscultation Cardiovascular: - - irregularly irregular, no significant murmur Abdominal: NL Sounds; No Tenderness; No Distention Extremities: - - 1+ edema Skin: No Rash or Ulcers Neurological: Alert and Oriented x 3 Laboratory Results: 01/31/19 11:45 02/01/19 07:17 APTT 32.0 seconds (26.0-38.0) 01/31/19 11:45 Total Bilirubin 0.70 mg/dL (0.2-1.0) 01/31/19 11:45 AST 21 U/L (13-39) 01/31/19 11:45 ALT 21 U/L (7-52) 01/31/19 11:45 Alkaline Phosphatase 71 U/L (34-104) 01/31/19 11:45 CK-MB (CK-2) 0.9 ng/mL (0.6-6.3) 01/31/19 11:45 B-Natriuretic Peptide 354 pg/mL (<=100) H 01/31/19 11:45 Total Protein 7.0 g/dL (6.4-8.9) 01/31/19 11:45 Albumin 4.0 g/dL (3.2-5.2) 01/31/19 11:45 Globulin 3.0 g/dL (2-4) 01/31/19 11:45 Albumin/Globulin Ratio 1.3 (1-3) 01/31/19 11:45 TSH 2.89 mcIU/mL (0.34-5.60) 01/31/19 11:45 01/31/19 11:45 Troponin I 0.02 Diagnostic Imaging: Exam Date: 01/31/19 IMPRESSION: CARDIOMEGALY WITH NO ACTIVE CARDIOPULMONARY DISEASE. PATIENT IS STATUS POST TRANSSTERNAL THORACOTOMY. Transthoracic Echocardiogram Study Date: 01/16/2019 Summary: - Impressions: The study is unchanged since the study of June 2018. - Left ventricle: The cavity size is normal. Wall thickness is mildly to moderately increased. Systolic function is normal. The estimated ejection fraction is 60-65%. - Mitral valve: The valve area by pressure half-time is 2.4 cm^2. The valve area (LVOT continuity) is 2.3 cm^2. - Aortic valve: There is a bioprosthetic valve. Normal function by 2d and doppler. The peak systolic velocity is 2.1 m/sec. The mean systolic gradient is 11.0 mm Hg. The peak systolic gradient is 18.0 mm Hg. The valve area by the velocity-time integral method is 1.73 cm^2. The ratio of LVOT to aortic valve peak velocity is 0.6. The valve area by the peak velocity method is 1.87 cm^2. - Tricuspid valve: There is mild-moderate regurgitation. - Ascending aorta: The ascending aorta is mildly dilated. - Pulmonary arteries: Systolic pressure is moderately increased, estimated to be 54 mm Hg. EKG Data: EKG x 2 prior to first cardioversion shows rapid atrial flutter with incomplete and complete LBBB Assessment/Plan 1. Highly symptomatic paroxysmal atrial fibrillation and atrial flutter - with sinus node disease - On amiodarone 2. HFpEF/CKD 3. CAD s/p PCI 4. HTN 5. Anemia 7. Intermittent LBBB Last dose eliquis 01/30 PM Last dose therapeutic lovenox today ~ 1 pm Plan for pacemaker tomorrow Saturday02/02/2019, hold AM lasix and start NSS 50 cc /hr and make NPO (ordered) Thank you for allowing me to participate in the cardiovascular care of this patient. Please do not hesitate to contact me with questions or concerns.
[2019-02-01] MEDS: Atorvastatin* 20 MG TAB PO SCH (16:34)
[2019-02-02] MEDS: Levothyroxine TAB* 50 MCG TAB PO SCH (05:05)
[2019-02-02] MEDS ORDERED: NS 0.9% 1000 ML** 1,000 ML IV SCH (06:00)
[2019-02-02 06:41] LABS: Calcium 8.5 mg/dL (8.6-10.3); Magnesium 1.9 mg/dL (1.9-2.7); Potassium 3.7 mmol/L (3.5-5.0)
[2019-02-02 06:47] LABS: BUN/Creatinine Ratio 12.1 (8-20); EGFR African American 33.4 (>60); EGFR Non-African American 27.6 (>60)
[2019-02-02] MEDS: Pantoprazole TAB * 40 MG TAB PO SCH (09:08)
[2019-02-02] MEDS: Amiodarone TAB* 200 MG PO SCH (09:08)
[2019-02-02] MEDS: Metoprolol Tartrate TAB* 25 MG PO SCH ×2 (09:10→20:14)
[2019-02-02] MEDS ORDERED: ceFAZolin 2 GM PREMIX in ORs 2 GM/50 ML BAG IVPB ONE (09:41)
[2019-02-02] MEDS ORDERED: ceFAZolin 1 GM/10 ML flush(*) SYRINGE for pocket flush (cardiology) FLUSH ONE (09:41)
[2019-02-02] MEDS ORDERED: NS 0.9% 100 ML* 100 ML with ceFAZolin VIAL(*) 2 GM IVPB ONE ×2 (10:00)
[2019-02-02] MEDS ORDERED: ceFAZolin VIAL(*) 2 GM in NS 0.9% 100 ML* 100 ML IVPB ONE (10:00)
[2019-02-02] MEDS ORDERED: Lidocaine 1% INJ* 10 MG/ML 30 ML SDV ONE (10:01)
[2019-02-02] MEDS ORDERED: Naloxone* 0.4 MG/ML 1 ML VIAL ONE (10:28)
[2019-02-02] MEDS ORDERED: Flumazenil* 0.1 MG/ML 5 ML MDV ONE (10:28)
[2019-02-02] MEDS ORDERED: fentaNYL* 50 MCG/ML 2 ML VIAL (100 MCG VIAL) ONE (10:28)
[2019-02-02] MEDS ORDERED: Midazolam* 1 MG/ML 5 ML VIAL (5 MG) ONE (10:28)
[2019-02-02] MEDS ORDERED: oxyCODONE/Acetamin 5/325 MG* TAB PO PRN (11:37)
[2019-02-02] MEDS: Docusate CAP* 100 MG PO SCH ×3 (12:49→20:15)
[2019-02-02] MEDS: Ferrous Sulfate TAB* 325 MG PO SCH (12:53)
[2019-02-02] MEDS: Cyanocobalamin TAB* 500 MCG PO SCH (12:53)
[2019-02-02] MEDS: Folic Acid TAB* 1 MG PO SCH (12:53)
[2019-02-02] MEDS: Potassium Chloride* LIQUID 20 MEQ/15 ML UDC PO SCH (12:53)
[2019-02-02] MEDS: Aspirin EC TAB* 81 MG TAB.EC PO SCH (12:53)
[2019-02-02] MEDS: Acetaminophen TAB* 325 MG PO PRN ×3 (14:04→23:24)
--- NOTE | 2019-02-02 14:19 | PN ---
Subjective Date of Service: 02/02/19 Interval History: Pt is s/p pacemaker, doing well, although "sore" in L shoulder area after the pacer insertion Objective Active Medications: Acetaminophen (Tylenol Tab*) 650 mg PO Q4H PRN PRN Reason: PAIN - MILD Last Admin: 02/02/19 14:04 Dose: 650 mg Amiodarone HCl (Cordarone Tab*) 300 mg PO DAILY [facility] Last Admin: 02/02/19 09:08 Dose: 300 mg Aspirin (Aspirin Ec Tab*) 81 mg PO QAM [facility] Last Admin: 02/02/19 12:53 Dose: 81 mg Atorvastatin Calcium (Lipitor*) 20 mg PO 1700 [facility] Last Admin: 02/01/19 16:34 Dose: 20 mg Cyanocobalamin (Vitamin B12 Tab*) 1,000 mcg PO QAM [facility] Last Admin: 02/02/19 12:53 Dose: 1,000 mcg Docusate Sodium (Colace Cap*) 100 mg PO TID [facility] Last Admin: 02/02/19 12:53 Dose: 100 mg Ferrous Sulfate (Ferrous Sulfate Tab*) 325 mg PO QAM [facility] Last Admin: 02/02/19 12:53 Dose: 325 mg Folic Acid (Folvite Tab*) 1 mg PO QAM [facility] Last Admin: 02/02/19 12:53 Dose: 1 mg Furosemide (Lasix Tab*) 40 mg PO QAM [facility] Sodium Chloride (Ns 0.9% 1000 Ml) 1,000 mls @ 50 mls/hr IV PER RATE [facility] Stop: 02/02/19 17:00 Last Admin: 02/02/19 06:06 Dose: 50 mls/hr Cefazolin Sodium 1 gm/ Sodium (Chloride) 50 mls @ 200 mls/hr IVPB Q8H [facility] Stop: 02/03/19 12:14 Levothyroxine Sodium (Synthroid Tab*) 50 mcg PO 0600 [facility] Last Admin: 02/02/19 05:05 Dose: 50 mcg Metoprolol Tartrate (Lopressor Tab*) 25 mg PO 0900,2100 [facility] Last Admin: 02/02/19 09:10 Dose: 25 mg Metoprolol Tartrate (Lopressor Iv*) 5 mg IV Q6H PRN PRN Reason: Vtach Oxycodone/Acetaminophen (Percocet 5/325 Tab*) 1 tab PO Q4H PRN PRN Reason: PAIN - MODERATE Pantoprazole Sodium (Protonix Tab*) 40 mg PO DAILY [facility] Last Admin: 02/02/19 09:08 Dose: 40 mg Potassium Chloride (Potassium Chloride Liquid) 10 meq PO DAILY [facility] Last Admin: 02/02/19 12:53 Dose: 10 meq Vital Signs - 8 hr 02/02/19 02/02/19 02/02/19 07:28 07:34 12:12 Temperature 98.2 F Pulse Rate 105 Respiratory 18 16 Rate Blood Pressure 126/81 149/86 (mmHg) O2 Sat by Pulse 97 Oximetry 02/02/19 02/02/19 02/02/19 12:38 13:00 13:08 Temperature Pulse Rate 75 86 80 Respiratory Rate Blood Pressure 151/85 160/73 (mmHg) O2 Sat by Pulse 96 97 97 Oximetry 02/02/19 02/02/19 13:38 14:00 Temperature Pulse Rate 75 89 Respiratory Rate Blood Pressure 137/81 (mmHg) O2 Sat by Pulse 98 96 Oximetry Oxygen Devices in Use Now: None Appearance: 88 yo F in nAD, AAox3 Eyes: No Scleral Icterus, PERRLA Ears/Nose/Mouth/Throat: NL Teeth, Lips, Gums, Mucous Membranes Moist Neck: NL Appearance and Movements; NL JVP, Trachea Midline Respiratory: Symmetrical Chest Expansion and Respiratory Effort, Clear to Auscultation Cardiovascular: - - irregular Abdominal: NL Sounds; No Tenderness; No Distention, No Hepatosplenomegaly Lymphatic: No Cervical Adenopathy Extremities: No Clubbing, Cyanosis, - - trace pedal edema b/l Skin: No Nodules or Sclerosis Neurological: Alert and Oriented x 3, NL Muscle Strength and Tone Result Diagrams: 01/31/19 11:45 02/02/19 06:12 Assess/Plan/Problems-Billing Assessment: 88 F with afib s/p multiple failed cardiversions, CAD, HFpEF, CKD, hemiarthroplasty 04/2018, who presents with afib with RVR and SOB, cardiverted in ED-was back to [facility] within 2 hrs, admitted for planned pacemaker 02/03/19 - Patient Problems (1) Atrial fibrillation with rapid ventricular response Comment: hx of multiple cardioversions. Currently on amiodarone at home to [facility] -Cardiology consulted-cardioversion failed in ED, another one planned in aM -s/p pacer 02/02 -eleuterio madrigal, on lovenox preop-now on no aticoagulation, likely to be restarted by cardiology in AM. (2) CKD (chronic kidney disease) stage 3, GFR 30-59 ml/min Comment: -at baseline (3) HTN (hypertension) Comment: - normotensive (4) HLD (hyperlipidemia) Comment: - Continue atorvastatin. (5) LBBB (left bundle branch block) Comment: pt goes into LBBB when tachy which alarms as V. tach on telem monitor (6) Hypothyroidism Comment: cont Synthroid (7) DVT prophylaxis Comment: - Eleuterio madrigal, SCD's Status and Disposition: inpatient
[2019-02-02] MEDS: Atorvastatin* 20 MG TAB PO SCH (17:52)
[2019-02-02] MEDS: ceFAZolin VIAL(*) 1 GM in NS 0.9% 50 ML* 50 ML IVPB SCH (20:14)
--- NOTE | 2019-02-02 21:48 | OP ---
DATE OF OPERATION: 02/02/19 - ROOM #448 DATE OF : 30 SURGEON: Talib Cisneros MD ANESTHESIA: Local anesthesia with conscious sedation. PRE-OP DIAGNOSES: Sick sinus syndrome, bradycardia. POST-OP DIAGNOSES: Sick sinus syndrome, bradycardia. OPERATIVE PROCEDURE: Dual-chamber pacemaker implantation. ESTIMATED BLOOD LOSS: Nil. COMPLICATIONS: None. INDICATIONS: The patient is an 88-year-old female with a history of aortic valve replacement, history of coronary artery disease, who has been having increasing episodes of atrial fibrillation, requiring higher doses of antiarrhythmic medication. Her resting heart rate in sinus rhythm is 45 beats per minute. Diagnosis is sick sinus syndrome. Permanent pacemaker was recommended. The patient was scheduled for tomorrow for pacemaker implantation. She came in this weekend with a new onset atrial fibrillation. DESCRIPTION OF PROCEDURE: The patient was brought to the procedure room in a fasting state. Informed consent had been obtained prior to the procedure. All labs were reviewed. The patient had been off her Xarelto for 3 days prior to the procedure. She was getting full-dose Lovenox in the hospital. The patient was placed supine on the procedure table. Her left deltopectoral area was cleaned and draped in the usual fashion. 1% lidocaine was used for local anesthesia. Under ultrasound guidance, the axillary vein was entered via Seldinger technique and a guidewire was placed. A second guidewire was placed in the same technique. A 3.5 cm incision was made in the pectoral area. Blunt dissection was carried down to the pectoral fascia and a pocket was fashioned for the pacemaker. Over the first guidewire, a 7-Tongan sheath introducer was placed, through which a right ventricular lead was advanced to the septum. The right ventricular lead was a [employer]onic model 5076, serial number [id number], it had an R-wave sensitivity of 3.8, impedance 890 ohms, threshold 1.4 volts at 0.9 msec. The ventricular lead was sutured to the pectoral fascia. Over the second guidewire, a 7-Tongan sheath introducer was placed, through which a right atrial lead was advanced to the high right atrium. The right atrial lead is a Medtronic model 5076, serial number [id number], it had a P-wave sensitivity of 1, impedance 735 ohms, threshold could not be tested as the patient was in atrial fibrillation. The atrial lead was sutured to the pectoral fascia. The patient was already under conscious sedation. The patient was cardioverted twice with 200 joules of synchronized biphasic energy. Each time, the patient did not covert to normal sinus rhythm. A generator was attached appropriately to the atrioventricular lead. The generator is a [employer] model W1DR01, serial number [id number]. The device was placed in the pocket. The surgical incision was closed in three layers. The patient was returned to her hospital room in stable condition. [id number]/[facility] #: [id number] [facility]ITAL[facility]
[2019-02-03] MEDS: ceFAZolin VIAL(*) 1 GM in NS 0.9% 50 ML* 50 ML IVPB SCH (03:55)
[2019-02-03 05:03] LABS: Hematocrit 28 % (35-47); Hemoglobin 9.8 g/dL (12.0-16.0); Mean Corpuscular HGB Conc 35 g/dL (31-36); Mean Corpuscular Hemoglobin 34 pg (27-31); Mean Corpuscular Volume 98 fL (80-97); Mean Platelet Volume 7.1 fL (7.4-10.4); Platelet Count 154 10^3/uL (150-450); Red Blood Count 2.88 10^6 /uL (3.70-4.87); Red Cell Distribution Width 14 % (10-15); White Blood Count 7.6 10^3/uL (3.5-10.8)
[2019-02-03 05:19] LABS: BUN/Creatinine Ratio 12.3 (8-20); Calcium 8.5 mg/dL (8.6-10.3); EGFR Non-African American 29.8 (>60); Potassium 3.9 mmol/L (3.5-5.0)
[2019-02-03] MEDS: Levothyroxine TAB* 50 MCG TAB PO SCH (05:31)
[2019-02-03] MEDS: Metoprolol Tartrate TAB* 25 MG PO SCH (08:28)
[2019-02-03] MEDS: Aspirin EC TAB* 81 MG TAB.EC PO SCH (08:28)
[2019-02-03] MEDS: Ferrous Sulfate TAB* 325 MG PO SCH (08:28)
[2019-02-03] MEDS: Cyanocobalamin TAB* 500 MCG PO SCH (08:29)
[2019-02-03] MEDS: Docusate CAP* 100 MG PO SCH (08:29)
[2019-02-03] MEDS: Pantoprazole TAB * 40 MG TAB PO SCH (08:29)
[2019-02-03] MEDS: Amiodarone TAB* 200 MG PO SCH (08:29)
[2019-02-03] MEDS: Potassium Chloride* LIQUID 20 MEQ/15 ML UDC PO SCH (08:29)
[2019-02-03] MEDS: Folic Acid TAB* 1 MG PO SCH (08:29)
[2019-02-03] MEDS ORDERED: Apixaban* 2.5 MG TAB PO SCH (09:00)
[2019-02-03] MEDS ORDERED: Furosemide TAB* 40 MG PO SCH (09:00)
[2019-02-03] MEDS ORDERED: fentaNYL* 50 MCG/ML 2 ML VIAL (100 MCG VIAL) ONE (09:01)
[2019-02-03] MEDS ORDERED: Flumazenil* 0.1 MG/ML 5 ML MDV ONE (09:01)
[2019-02-03] MEDS ORDERED: Naloxone* 0.4 MG/ML 1 ML VIAL ONE (09:01)
[2019-02-03] MEDS ORDERED: Midazolam* 1 MG/ML 5 ML VIAL (5 MG) ONE (09:01)
[2019-02-03 11:17] VITALS: BP 109/57
--- NOTE | 2019-02-03 22:40 | DS ---
CC: Dr. Quevedo; Dr. Cisneros * DISCHARGE SUMMARY: DATE OF ADMISSION: 01/31/19 DATE OF DISCHARGE: 02/03/19 PRIMARY CARE PROVIDER: Dr. Quevedo. SENSITIZER: Dr. Cisneros. DISCHARGE DIAGNOSES: 1. Atrial fibrillation with rapid ventricular response, status post failed cardioversion. 2. Sick sinus syndrome, status post pacemaker placement. SECONDARY DIAGNOSES: 1. Atrial fibrillation, status post multiple cardioversions. 2. Aortic stenosis, status post aortic valve replacement. 3. Non-ST elevation myocardial infarction, status post stent. 4. Hypertension. 5. Chronic kidney disease stage III. 6. Anemia. 7. Intermittent left bundle-branch block. 8. Heart failure with preserved ejection fraction. 9. Left hip fracture, status post repair. 10. Status post cataract surgery. MEDICATION LIST: 1. Levothyroxine 50 mcg p.o. daily. 2. Furosemide 40 mg p.o. daily. 3. Colace 100 mg p.o. t.i.d. 4. Eliquis 2.5 mg p.o. b.i.d. 5. Folic acid 1 mg p.o. daily. 6. Ferrous sulfate 325 mg p.o. daily. 7. Vitamin B12 1000 mcg p.o. daily. 8. Aspirin 81 mg p.o. daily. 9. Potassium chloride 10 mEq p.o. daily. 10. Pantoprazole 40 mg p.o. daily. 11. Atorvastatin 20 mg p.o. daily. 12. Nitroglycerin 0.4 mg sublingual q.5 minutes p.r.n. chest pain, maximum of 3 doses. 13. Acetaminophen 650 mg p.o. q.4 hours p.r.n. pain. Medication change: 1. Amiodarone was increased from 300 to 400 mg p.o. daily. New Medications: 1. Metoprolol tartrate 25 mg p.o. b.i.d. 2. Cephalexin 500 mg p.o. q.8 hours for 3 days. HOSPITAL COURSE: Mrs. Sherwood is an 88-year-old female with a past medical history as stated above who has had frequent admissions for atrial fibrillation with rapid ventricular response. The last one she was discharged home on 01/27/19, and on 01/30/19 she started to feel unwell. She was complaining of lightheadedness and weakness. For more details about her presentation, I refer you to her history and physical. The patient was seen in consultation by Cardiology (Dr. Sherman) in the emergency room and he performed cardioversion. The plan was for the patient to be discharged home and to maintain her plans for pacemaker placement on 02/03/19 , but unfortunately shortly after her cardioversion the patient went back to atrial fibrillation, for that reason she was admitted. Her amlodipine was discontinued to have blood pressure room for other medications for rate control. She was started on beta-blockers and she underwent pacemaker placement with Dr. Cisneros on 02/02/[address] syndrome[address]. Cisneros attempted cardioversion once again today and the patient stayed in sinus rhythm for 5 minutes. So at this point, the [employer] ticket cashier's plan is to discharge the patient home on a higher dose of amiodarone and now she has a pacemaker and follow up as outpatient. It may not be possible to keep her on normal sinus rhythm, so maybe the goal would be just for rate control. The patient's heart rate is in the 80s and she overall feels improved and is agreeable with discharge. PHYSICAL EXAMINATION: Vital Signs: Temperature 98.4, heart rate is 89, respiratory rate is 19, oxygen saturation is 98% on room air, blood pressure is 126/59. General: The patient is a pleasant elderly lady, sitting up in bed, in no acute distress. CVS: S1 and S2, irregularly irregular. Chest: Breath sounds present bilaterally, diminished in bases, but no added sounds. Neuro: She is alert and oriented x3, able to move all 4 extremities. DIET: Heart-healthy diet. Avoid caffeine and alcohol. DISPOSITION: To home. STATUS WHILE IN THE HOSPITAL: Inpatient. CONDITION AT THE TIME OF DISCHARGE: Fair. The patient already has a followup appointment with Dr. Cisneros on 02/11/19 at 11: 15 a.m. She was educated about post-pacemaker care. Please keep in mind this is a summarized version of the patient's hospital stay. If you need more information, please feel free to call me at [phone] or please obtain the full medical records. TIME SPENT: Approximately 45 minutes was spent to complete this discharge. [id number]/[id number] #: [id number] MTDD
== END 2019-02-03 12:25 | disposition home health service (06) | DRG 243 ==
LOC: ED 11:22 → MEDTELE 17:42
PROVIDERS: ADMIT Internal Medicine; ATTEND Internal Medicine
PROC: 5A2204Z Restoration of Cardiac Rhythm, Single (ICD-10-PCS; principal; 2019-01-31)
PROC: 0JH606Z Insertion of Pacemaker, Dual Chamber into Chest Subcutaneous Tissue and Fascia, Open Approach (ICD-10-PCS; 2019-02-02)
PROC: 02HK3JZ Insertion of Pacemaker Lead into Right Ventricle, Percutaneous Approach (ICD-10-PCS; 2019-02-02)
PROC: 02H63JZ Insertion of Pacemaker Lead into Right Atrium, Percutaneous Approach (ICD-10-PCS; 2019-02-02)
DX: I48.92 Unspecified atrial flutter (principal); I13.0 Hypertensive heart and chronic kidney disease with heart failure and stage 1 through stage 4 chronic kidney disease, or unspecified chronic kidney disease; I50.32 Chronic diastolic (congestive) heart failure; I48.0 Paroxysmal atrial fibrillation; I44.7 Left bundle-branch block, unspecified; D63.1 Anemia in chronic kidney disease; I25.10 Atherosclerotic heart disease of native coronary artery without angina pectoris; I49.5 Sick sinus syndrome; N18.3 Chronic kidney disease, stage 3 (moderate); E78.5 Hyperlipidemia, unspecified; E03.9 Hypothyroidism, unspecified; I73.9 Peripheral vascular disease, unspecified; J44.9 Chronic obstructive pulmonary disease, unspecified; E78.00 Pure hypercholesterolemia, unspecified; M19.90 Unspecified osteoarthritis, unspecified site; I25.2 Old myocardial infarction; Z95.5 Presence of coronary angioplasty implant and graft; Z95.2 Presence of prosthetic heart valve; Z88.8 Allergy status to other drugs, medicaments and biological substances; Z79.01 Long term (current) use of anticoagulants; Z79.82 Long term (current) use of aspirin; Z79.899 Other long term (current) drug therapy
CPT/HCPCS: 33208; 36415; 71045; 71046; 80048; 80053; 81003; 82550; 82553; 83605; 83735; 83880; 84443; 84484; 85025; 85027; 85730; 92960; 93005; 96374; 96375; 99156; 99157; 99285; A9270-GY; C1785; C1892; C1898; J0282; J0690; J1650; J2250; J2310; J3010; J3475

== ENCOUNTER 2019-03-17 11:47 | Emergency (ER) | payer MEDICARE ==
--- NOTE | 2019-03-17 12:22 | ED ---
HPI Chest Pain - HPI Summary HPI Summary: 80-year-old female with a significant past medical history of atrial fibrillation with multiple cardioversions both pacemaker placement on , aortic stenosis status post aortic valve replacement 2012, heart failure with preserved ejection fraction, chronic kidney disease, hypothyroidism, hypertension, anemia, intermittent left bundle branch block presents to the emergency department today complaining of 5 out of 10 epigastric chest pain, palpitations, back pain. Patient states her symptoms began approximately 3 days ago which she attributed to acid reflux and took [id number] antacids with minimal relief. Patient states she has constant pain at rest which is not associated with exertion, diaphoresis and jaw pain, numbness or tingling in her arms. Patient is otherwise well and denies fever, rash, diarrhea, nausea, vomiting, changes in bowel habits, blood per rectum. Patient denies recreational drug use or alcohol use. Family history noncontributory. Last transthoracic echocardiogram done on 01/15/19 which showed EF 60-65%. Most recent stress test done 01/16/19 found her at intermediate risk for ACS. - History of Current Complaint Chief Complaint: EDDysrhythmPalp Time Seen by Provider: 03/17/19 12:07 Hx Obtained From: Patient Onset/Duration: Started Days Ago Timing: Constant Initial Severity: Moderate Current Severity: Severe Pain Intensity: 10 Pain Scale Used: 0-10 Numeric Chest Pain Location: Mid Sternal Chest Pain Radiates: Yes Chest Pain Radiates To:: Back, Epigastric Character: Burning, Pressure/Squeezing Aggravating Factor(s): Nothing Alleviating Factor(s): Nothing Associated Signs and Symptoms: Positive: Chest Pain, Nausea, Back Pain, Abdominal Pain. Negative: Vision Changes, Anxiety, Headaches, Shortness of Breath, Cough, Vomiting - Additional Pertinent History Primary Care Physician: [id number] - Allergy/Home Medications Allergies/Adverse Reactions: Allergies Allergy/AdvReac Type Severity Reaction Status Date / Time No Known Allergies Allergy Verified 01/31/19 11:31 Home Medications: Home Medications Amiodarone TAB* [Cordarone Tab*] 400 mg PO DAILY 03/17/19 [History Confirmed 09/27] Atorvastatin* [Lipitor 10 MG*] 20 mg PO BEDTIME 03/17/19 [History Confirmed 09/27] Metoprolol Tartrate TAB* [Lopressor TAB*] 25 mg PO BID 03/17/19 [History Confirmed 03/17/19] Nystatin TOP POWDER* 1 applic TOPICAL TID 03/17/19 [History Confirmed 03/17/19] Polyethylene Glycol 3350* [Miralax*] 17 gm PO DAILY 03/17/19 [History Confirmed 03/17/19] PMH/Surg Hx/FS Hx/Imm Hx Endocrine/Hematology History: Reports: Hx Anticoagulant Therapy, Hx Blood Transfusions, Hx Thyroid Disease, Hx Anemia - on iron Denies: Hx Diabetes Cardiovascular History: Reports: Hx Angina, Hx Atrial Fibrillation, Hx Congestive Heart Failure, Hx Coronary Artery Disease, Hx Hypertension, Hx Myocardial Infarction, Hx Pacemaker/ICD - pacemaker implant 02/02/19, Hx Peripheral Vascular Disease, Hx Syncope, Hx Valvular Heart Disease Denies: Hx Hypercholesterolemia Comment Only: Other Cardiovascular Problems/Disorders - stents, A-fib Respiratory History: Reports: Hx Chronic Bronchitis, Hx Chronic Obstructive Pulmonary Disease (COPD) Denies: Hx Asthma GI History: Reports: Hx Irritable Bowel - w/ constipation, Other GI Disorders - constipation Denies: Hx Gastrointestinal Bleed, Hx Hiatal Hernia, Hx Ulcer History: Denies: Hx Chronic Renal Failure, Hx Kidney Stones, Hx Renal Disease, Other Problems/Disorders Musculoskeletal History: Reports: Hx Arthritis - osteoarhtritis, Hx Back Problems, Hx Orthopedic Injury, Other Musculoskeletal History - HAMMER TOE LEFT SECOND TOE-repaired, carpel tunnel surgery Denies: Hx Osteoporosis Sensory History: Reports: Hx Cataracts - LENS IMPLANTS 2011, Hx Contacts or Glasses, Hx Vision Problem, Other Sensory Impairments - dry eye Denies: Hx Hearing Aid Opthamlomology History: Reports: Hx Cataracts - LENS IMPLANTS 2011, Hx Contacts or Glasses, Hx Vision Problem, Other Sensory Impairments - dry eye Neurological History: Denies: Hx Dementia, Hx Seizures, Hx Transient Ischemic Attacks (TIA) Psychiatric History: Denies: Hx Anxiety, Hx Depression, Hx Panic Disorder - Cancer History Hx Chemotherapy: No Hx Radiation Therapy: No - Surgical History Surgery Procedure, Year, and Place: AORTIC valve replacement, 2012,. , 1964, [facility]. Cataract surgery, 2011, [facility] [place], [facility] LEFT FOOT. cardiac catherization with cardiac stent to RCA October 2016. cardioversions 2014,2015, 08/2016, 05/30/18. Carpel tunnel surgery 12/2018. left hip hemiarthroplasty surgery 04/2018. left hip revision 06/2018 Hx Anesthesia Reactions: No - Immunization History Date of Influenza Vaccine: 12/25 Infectious Disease History: No Infectious Disease History: Denies: Hx Clostridium Difficile, Hx Hepatitis, Hx Human Immunodeficiency Virus (HIV), Hx of Known/Suspected MRSA, Hx Shingles, Hx Tuberculosis, Hx Known/ Suspected VRE, Hx Known/Suspected VRSA, History Other Infectious Disease, Traveled Outside the [place] in Last 30 Days - Family History Known Family History: Positive: Cardiac Disease, Hypertension - Social History Alcohol Use: None Hx Substance Use: No Substance Use Type: Reports: None Hx Tobacco Use: No Smoking Status (MU): Never Smoked Tobacco Have You Smoked in the Last Year: No Review of Systems Constitutional: Negative Eyes: Negative ENT: Negative Cardiovascular: Negative Respiratory: Negative Positive: Abdominal Pain, Nausea. Negative: Vomiting, Diarrhea Genitourinary: Negative Positive: Arthralgia, Myalgia Skin: Negative Neurological: Negative Psychological: Normal All Other Systems Reviewed And Are Negative: Yes Physical Exam Triage Information Reviewed: Yes Vital Signs On Initial Exam: Initial Vitals Temp Pulse Resp BP Pulse Ox 97.8 F 109 18 107/71 100 03/17/19 11:51 03/17/19 11:51 03/17/19 11:51 03/17/19 11:51 03/17/19 11:51 Vital Signs Reviewed: Yes Appearance: Positive: Well-Appearing, No Pain Distress, Well-Nourished Skin: Positive: Warm, Skin Color Reflects Adequate Perfusion Eyes: Positive: EOMI, RC ENT: Positive: Normal ENT inspection, Hearing grossly normal Neck: Positive: Supple, Nontender Respiratory/Lung Sounds: Positive: Clear to Auscultation, Breath Sounds Present , Decreased Breath Sounds Cardiovascular: Positive: RRR, S1, S2 Abdomen Description: Positive: Nontender, No Organomegaly Bowel Sounds: Positive: Present Neurological: Positive: Sensory/Motor Intact, Alert, Oriented to Person Place, Time, Normal Gait, Facial Symmetry, Speech Normal Psychiatric: Positive: Normal, Affect/Mood Appropriate AVPU Assessment: Alert Procedures - Sedation Patient Received Moderate/Deep Sedation with Procedure: No Diagnostics - Vital Signs Vital Signs Temp Pulse Resp BP Pulse Ox 03/17/19 11:51 97.8 F 109 18 107/71 100 - Laboratory Result Diagrams: 03/17/19 12:24 03/17/19 12:24 Lab Statement: Any lab studies that have been ordered have been reviewed, and results considered in the medical decision making process. Chest Pain Course/Dx - Course Course Of Treatment: Patient was evaluated in the emergency department today for chest pain. Patient seen and examined her vitals are stable and she is afebrile. EKG was done promptly which showed ventricular paced complexes left bundle-branch rate of 115 bpm. No evidence of STEMI. Patient is in atrial fibrillation. EKG is changed when compared to priors. Labs returned showing no evidence for leukocytosis with a white blood cell count of 5.7. There is mild anemia with an H&H of 10.4/31 however this is the patients baseline. No significant electrolyte abnormalities noted. Pt renal function is elevated when compared to her base line at BUN 27/Cr. 2.2 BNP 704 which is elevated when compared to her last study January 31, 2019 which was 354. Initial troponin resulted at 0.02. Serial troponin shows no change at 0.02, ruling out STEMI. HEART score 5. Dr. Cisneros, her family independence case manager was consulted for dispositon and suggested hospitalisation for acute heart failure. Charlie Beyer, medicine, was consulted for admission and formed a plan with Dr. Cisneros for outpatient treatment. As per Dr. Cisneros patient is to change her medication regimen to: Metoprolol tartrate 50 mg by mouth twice a day. She is also to increase her dose of Lasix to 60 mg by mouth daily 5 days then go back to 40 mg daily. Patient is to discontinue her Protonix. Patient is to follow-up with Dr. Cisneros next week and also had a basic metabolic panel done in 5-7 days for investigation into electrolyte disturbance from increase in Lasix. Patient was discharged with outpatient follow-up. - Chest Pain Differential Diagnosis/HQI/PQRI: Acute [place], ACS, Angina, Aortic Aneurysm, CHF, GI Disease - Diagnoses Provider Diagnoses: Chest pain, Back pain, Atrial fibrillation, Congestive heart failure - Provider Notifications Discussed Care Of Patient With: Talib Cisneros - suggested the patient may be treated on an outpatient basis with follow-up next week at his office and to change her at home medication regimen to: Metoprolol tartrate 50 mg by mouth twice a day. She is also to increase her dose of Lasix to 60 mg by mouth daily 5 days then go back to 40 mg daily. Patient is to discontinue her Protonix. Patient is to follow-up with Dr. Cisneros next week and also had a basic metabolic panel done in 5-7 days for investigation into electrolyte disturbance from increase in Lasix. Time Discussed With Above Provider: 14:04 Discharge ED - Sign-Out/Discharge Documenting (check all that apply): Patient Departure - Discharge Plan Condition: Stable Disposition: HOME Prescriptions: Furosemide TAB* [Lasix TAB*] 20 mg PO DAILY #5 tab Metoprolol Tartrate TAB* [Lopressor TAB*] 50 mg PO BID #30 tab Patient Education Materials: Heart Failure (ED) Referrals: Susy Quevedo MD [Primary Care Provider] - Talib Cisneros MD [Medical Doctor] - 5 Days Additional Instructions: You were seen in the emergency department today due to acute heart failure. This can be treated on an outpatient basis as per suggestion by Dr. Cisneros your family independence case manager. Please follow-up with him in his clinic next week and please be sure to have a basic metabolic panel done in 5-7 days due to your new medication regimen. Medication regimen: --Metoprolol tartrate 50 mg by mouth twice a day. --Lasix 60mg by mouth x 5 days, then 40mg once a day. --Stop taking your protonix --See Dr. Cisneros next week for follow-up --Call Dr. Cisneros's office and have a basic metabolic panel done in 5-7 days. Please return to the emergency department immediately if you develop any new or worsening symptoms. - Billing Disposition and Condition Condition: STABLE Disposition: Home
[2019-03-17 12:48] LABS: ABS Lymphocytes 0.7 10^3/ul (1.0-4.8); ABS Monocytes 0.6 10^3/ul (0-0.8); ABS Neutrophils 4.3 10^3/ul (1.5-7.7); Eosinophil % 0.6 %; Hematocrit 31 % (35-47); Hemoglobin 10.4 g/dL (12.0-16.0); Lymphocyte % 11.7 %; Mean Corpuscular HGB Conc 34 g/dL (31-36); Mean Corpuscular Hemoglobin 33 pg (27-31); Mean Corpuscular Volume 100 fL (80-97); Mean Platelet Volume 7.8 fL (7.4-10.4); Platelet Count 168 10^3/uL (150-450); Red Cell Distribution Width 15 % (10-15); White Blood Count 5.7 10^3/uL (3.5-10.8)
[2019-03-17 13:06] LABS: Albumin 3.7 g/dL (3.2-5.2); BUN/Creatinine Ratio 12.2 (8-20); Calcium 9.2 mg/dL (8.6-10.3); EGFR African American 25.2 (>60); EGFR Non-African American 20.8 (>60); Potassium 4.3 mmol/L (3.5-5.0); Total Protein 6.1 g/dL (6.4-8.9)
[2019-03-17 13:07] LABS: Albumin/Globulin Ratio 1.5 (1-3); Globulin 2.4 g/dL (2-4); Total Bilirubin 0.7 mg/dL (0.2-1.0)
[2019-03-17 13:09] LABS: Troponin I 0.02 ng/mL (<0.03)
[2019-03-17 13:51] LABS: Urine Appearance Clear; Urine Bilirubin Negative (Negative); Urine Blood Negative (Negative); Urine Color Straw; Urine Glucose Negative (Negative); Urine Ketones Negative (Negative); Urine Nitrite Negative (Negative); Urine Protein Negative (Negative); Urine Specific Gravity 1.004 (1.010-1.030); Urine Urobilinogen Negative (Negative)
[2019-03-17 13:55] LABS: Urine Bacteria Absent (Absent); Urine Red Blood Cell Trace(0-2/hpf) (Absent); Urine White Blood Cell Absent (Absent)
[2019-03-17 13:58] LABS: TSH (Thyroid Stimulating Horm) 4.02 mcIU/mL (0.34-5.60)
[2019-03-17] MEDS ORDERED: Furosemide IV* 10 MG/ML VIAL (40 MG) IV ONE (14:04)
[2019-03-17 16:12] VITALS: BP 123/81
--- NOTE | 2019-03-17 20:16 | CONS ---
CC: Dr. Quevedo; Dr. Cisneros; KIRSTEN Coleman * CONSULTATION REPORT: DATE OF CONSULT: 03/17/19 - EMERGENCY DEPT PRIMARY CARE PROVIDER: Dr. Quevedo. CO CHAIRMAN: Dr. Cisneros. CHIEF COMPLAINT: Shortness of breath and back pain. PROVIDER REQUESTING THE CONSULT: KIRSTEN Coleman from Emergency Department. HISTORY OF PRESENT ILLNESS: Veronica Sherwood is an 88-year-old female who has a history of atrial flutter, very difficult to control, who was hospitalized at our facility 8 times in the past year for problems with atrial flutter. Please note that one of those hospitalizations were for hip infection but during that time she also had a problem with A-flutter. At the end of the year, in January 2019, she was noted to have sinus pauses, at that point she was diagnosed with sick sinus syndrome, pacemaker was placed and she was cardioverted. As per interrogation of her pacemaker, she was back in atrial flutter on 02/26/19. The patient stated that she had been feeling somewhat short of breath and when she lies down she is more short of breath, due to that her back has been hurting and she feels pain especially underneath her left scapular region. She is also tender to palpation in this area. She also felt out of sorts and she had GI upset with nausea 3 days ago. At this point, she came into the ED for evaluation. Here, she was noted to have an atrial flutter with heart rate in the 120s. She was comfortable with oxygen saturation at 100% . Her EKG showed atrial flutter with left bundle-branch block, which is known for this patient. Her troponins were negative at 0.02 x2. Her creatinine was mildly elevated at 2.2, which is higher than her baseline. The ED provider requested for the patient to be evaluated for possibility of stay overnight. PAST MEDICAL HISTORY: 1. History of paroxysmal atrial flutter/fibrillation as mentioned above. 2. History of multiple cardioversions as above. 3. Status post pacemaker placement for sick sinus syndrome in January 2019. 4. History of diastolic CHF with preserved EF. 5. Hypertension. 6. Hyperlipidemia. 7. Coronary artery disease status post RCA stent in October of 2016. 8. Hypothyroidism. 9. Peripheral vascular disease. 10. Chronic obstructive pulmonary disease, not on oxygen. 11. History of valvular heart disease status post aortic valve replacement in 2012 with bioprosthetic valve. 12. History of left hip surgery in May 2018 with revision and evacuation of wound abscess in the area July 2018. 13. History of intermittent left bundle-branch block. CURRENT MEDICATIONS: Include: 1. Metoprolol tartrate 25 mg b.i.d. 2. Lasix 40 mg daily. 3. Potassium chloride 10 mEq a day. 4. Protonix 40 mg a day. 5. Lipitor 20 mg at bedtime. 6. MiraLAX 17 g daily. 7. Vitamin B12 1000 mcg daily. 8. Amiodarone 400 mg daily. 9. Nystatin powder topical t.i.d. p.r.n. 10. Levothyroxine 50 mcg daily. 11. Acetaminophen on a p.r.n. basis. 12. Colace 100 mg 3 times a day p.r.n. 13. Folic acid 1 mg daily. 14. Ferrous sulfate 325 mg daily. 15. Aspirin 81 mg daily. 16. Nitroglycerin on a p.r.n. basis. 17. Apixaban 2.5 mg b.i.d. ALLERGIES: No known drug allergies. FAMILY HISTORY: The patient had 3 brothers who with heart disease in their 40s to 60s. Two sisters had open heart surgery. Father of CVA at the age of 66. SOCIAL HISTORY: The patient lives with her . She ambulates with cane. She denies any alcohol, tobacco, or drug use. Her daughter, Bisi, is her surrogate. REVIEW OF SYSTEMS: Please see history of present illness. In addition to above mentioned, the patient stated that she has had occasional palpitations, which she usually feels when she is in atrial fib/flutter. She complains of shortness of breath worse when she is lying down and some exertional shortness of breath but not really significant and in fact today she is lying down in bed without any problems with oxygen saturation in the 100. She complains of left scapular/back pain off and on for the past several days. She also complains of intermittent muscle spasms in her neck that is also chronic. She has bilateral leg edema, which is chronic. She stated that she gained approximately 2 pounds "over the holidays." She denies any chest pain. She had an episode of nausea, but no vomiting and no diarrhea, 3 days ago that resolved. All the remaining 12 systems were reviewed with the patient and were otherwise negative. PHYSICAL EXAM: Blood pressure of 129/86, heart rate of 110 and regular, respiratory rate 16, oxygen saturation 98% on room air, temperature of 97.8. General: The patient is a very pleasant 88-year-old female who is in no acute distress. The patient is alert and oriented x3. HEENT: Head: Atraumatic, normocephalic. Eyes: Pupils are equal, reactive to light and accommodation. Oropharynx is clear. Mucosa moist. Neck: Supple. No JVD. No bruit bilaterally. Cardiovascular: Regular rate and rhythm. No murmur. Tachycardia. Respiratory: Fine crackles at bilateral bases, otherwise clear. Abdomen: Soft and nontender. Bowel sounds present in all 4 quadrants. Evaluation of the back: The patient has point tenderness over the muscles of the back underneath her left scapula. There is no true flank tenderness. There is no other tenderness on the back. Extremities: There is +1 pitting pedal edema bilaterally. Pulses are +2 bilaterally. No clubbing or cyanosis. Neuro Evaluation: Speech clear. Cranial nerves II through XII grossly intact. Motor strength is 5/5 bilaterally. DIAGNOSTIC STUDIES/LAB DATA: White blood cell count of 5.7, hemoglobin of 10.4 , hematocrit of 31, MCV of 100, and platelets of 168. Sodium was 136, potassium 4.3, chloride 98, carbon dioxide 28, BUN 27, creatinine 2.2. Liver function tests unremarkable. Brain natriuretic peptide was 704. Troponin of 0.02. The patient's portable chest x-ray reviewed by myself and read by the radiologist as "cardiomegaly. COPD. Small bilateral pleural effusions versus chronic pleural thickening." The patient's EKG showed left bundle-branch block with tachycardia and heart rate at 115, likely underlying A-flutter with occasional ventricularly paced complexes. Please note that the patient's pacemaker interrogation noted that the patient was in A-flutter since 02/26/19. ASSESSMENT AND PLAN: 1. Mild congestive heart failure and atrial flutter in a patient with history of atrial flutter and diastolic congestive heart failure. At this point, the patient is breathing ambient air with saturation of 100%. I discussed the case with Dr. Cisneros. The patient had been in atrial flutter for almost a month now. She has history of very difficult to control arrhythmia and she is scheduled to see a specialist for possibility of ablation. At this point, we will try to increase her beta-emmett to try to control it. Otherwise, the patient had been tachycardia with atrial flutter for quite some time and she had been tolerating it. 2. In regard to the patient's diastolic congestive heart failure exacerbation, the patient's Lasix is going to be increased from 40 to 60 mg for next 5 days and then decreased back to 40 mg daily. Due to increasing creatinine, which is likely due to heart failure, I will ask for the patient to have a basic metabolic panel drawn in 5 to 7 days. 3. The patient is also recommended to follow up with Dr. Cisneros in his office in the next week and she is asked to call for an appointment. Dr. Cisneros is aware that the patient is going to be calling for the appointment. 4. In regard to the remaining chronic problems, the patient has increasing creatinine once again likely due to her congestive heart failure once again. She should have repeat creatinine levels after the diuretic is increased. TIME SPENT: Approximately 65 minutes was spent on consultation of this patient , more than half that time was spent [id number] with the patient during the interview and physical exam. Thank you very much for allowing our service to see the patient in consultation. This patient was signed out back to the ED provider. [id number]/[facility] #: [id number] MTDD
== END 2019-03-17 16:38 | disposition home or self-care (01) ==
LOC: ED 11:47
DX: R07.89 Other chest pain (principal); M54.9 Dorsalgia, unspecified; I48.91 Unspecified atrial fibrillation; Z79.01 Long term (current) use of anticoagulants; I11.0 Hypertensive heart disease with heart failure; I50.9 Heart failure, unspecified; I44.7 Left bundle-branch block, unspecified; R11.0 Nausea; D64.9 Anemia, unspecified; E78.5 Hyperlipidemia, unspecified; E03.9 Hypothyroidism, unspecified; I73.9 Peripheral vascular disease, unspecified; Z95.2 Presence of prosthetic heart valve; Z95.810 Presence of automatic (implantable) cardiac defibrillator; Z95.5 Presence of coronary angioplasty implant and graft
CPT/HCPCS: 36415; 71046; 80053; 81003; 81015; 83605; 83735; 83880; 84443; 84484; 85025; 87086; 93005; 96374; 99283; J1940

== ENCOUNTER 2019-03-29 13:43 | Emergency (ER) | payer MEDICARE ==
--- NOTE | 2019-03-29 14:30 | ED ---
GI/ HPI - HPI Summary HPI Summary: 88 y/o female presented to [facility] complaining of difficulty swallowing. She states she has a bitter taste in her mouth and that pills and food are not going down easily. She also feels nauseous. She has had difficulty swallowing that has gotten worse in the past two months, and notes that she has been retaining fluids and that her throat usually feels better in the morning. She has gained weight due to fluid retention and her last BM was today. She does not se a GI specialist, but was recommended to see an ENT specialist for this issue. Pt does not smoke or drink alcohol and has a Hx of heart failure. Medications reviewed. Allergies noted. - History of Current Complaint Chief Complaint: EDGeneral Time Seen by Provider: 03/29/19 14:08 Stated Complaint: DIFFICULTY SWALLOWING PER PT Hx Obtained From: Patient, Family/Airset Caster Onset/Duration: Started Weeks Ago, Still Present Current Severity: None Pain Intensity: 0 Associated Signs and Symptoms: Positive: Nausea. Negative: Constipation - Additional Pertinent History Primary Care Physician: BELKIS - Allergy/Home Medications Allergies/Adverse Reactions: Allergies Allergy/AdvReac Type Severity Reaction Status Date / Time No Known Allergies Allergy Verified 03/29/19 13:54 Home Medications: Home Medications Furosemide TAB* [Lasix TAB*] 60 mg PO DAILY 03/29/19 [History Confirmed 03/29/19 ] Potassium Chloride 10 meq PO DAILY 03/29/19 [History Confirmed 03/29/19] PMH/Surg Hx/FS Hx/Imm Hx Endocrine/Hematology History: Reports: Hx Anticoagulant Therapy, Hx Blood Transfusions, Hx Thyroid Disease, Hx Anemia - on iron Denies: Hx Diabetes Cardiovascular History: Reports: Hx Angina, Hx Atrial Fibrillation, Hx Congestive Heart Failure, Hx Coronary Artery Disease, Hx Hypertension, Hx Myocardial Infarction, Hx Pacemaker/ICD - pacemaker implant 02/02/19, Hx Peripheral Vascular Disease, Hx Syncope, Hx Valvular Heart Disease Denies: Hx Hypercholesterolemia Comment Only: Other Cardiovascular Problems/Disorders - stents, A-fib Respiratory History: Reports: Hx Chronic Bronchitis, Hx Chronic Obstructive Pulmonary Disease (COPD) Denies: Hx Asthma GI History: Reports: Hx Irritable Bowel - w/ constipation, Other GI Disorders - constipation Denies: Hx Gastrointestinal Bleed, Hx Hiatal Hernia, Hx Ulcer History: Denies: Hx Chronic Renal Failure, Hx Kidney Stones, Hx Renal Disease, Other Problems/Disorders Musculoskeletal History: Reports: Hx Arthritis - osteoarhtritis, Hx Back Problems, Hx Orthopedic Injury, Other Musculoskeletal History - HAMMER TOE LEFT SECOND TOE-repaired, carpel tunnel surgery Denies: Hx Osteoporosis Sensory History: Reports: Hx Cataracts - LENS IMPLANTS 2011, Hx Contacts or Glasses, Hx Vision Problem, Other Sensory Impairments - dry eye Denies: Hx Hearing Aid Opthamlomology History: Reports: Hx Cataracts - LENS IMPLANTS 2011, Hx Contacts or Glasses, Hx Vision Problem, Other Sensory Impairments - dry eye Neurological History: Denies: Hx Dementia, Hx Seizures, Hx Transient Ischemic Attacks (TIA) Psychiatric History: Denies: Hx Anxiety, Hx Depression, Hx Panic Disorder - Cancer History Hx Chemotherapy: No Hx Radiation Therapy: No - Surgical History Surgery Procedure, Year, and Place: AORTIC valve replacement, 2012,. 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 Cataract surgery, 2011, [facility], [place]. cardiac catherization with cardiac stent to RCA October 2016. cardioversions 2014,2015, 08/2016, 05/30/18. Carpel tunnel surgery 12/2018. left hip hemiarthroplasty surgery 04/2018. left hip revision 06/2018 Hx Anesthesia Reactions: No - Immunization History Date of Influenza Vaccine: 12/2018 Infectious Disease History: No Infectious Disease History: Denies: Hx Clostridium Difficile, Hx Hepatitis, Hx Human Immunodeficiency Virus (HIV), Hx of Known/Suspected MRSA, Hx Shingles, Hx Tuberculosis, Hx Known/ Suspected VRE, Hx Known/Suspected VRSA, History Other Infectious Disease, Traveled Outside the [place] in Last 30 Days - Family History Known Family History: Positive: Cardiac Disease, Hypertension - Social History Alcohol Use: None Hx Substance Use: No Substance Use Type: Reports: None Hx Tobacco Use: No Smoking Status (MU): Never Smoked Tobacco Have You Smoked in the Last Year: No Review of Systems Positive: Sore Throat Positive: Nausea All Other Systems Reviewed And Are Negative: Yes Physical Exam - Summary Physical Exam Summary: Constitutional: Well-developed, Well-nourished, Alert. (-) Distressed Skin: Warm, Dry HENT: Normocephalic; Atraumatic Eyes: Conjunctiva normal Neck: Musculoskeletal ROM normal neck. (-) JVD, (-) Stridor, (-) Tracheal deviation Cardio: Rhythm regular, rate 95-105 in room, Heart sounds normal; Intact distal pulses; Radial pulses are 2+ and symmetric. (-) Murmur Pulmonary/Chest wall: Effort normal. (-) Respiratory distress, (-) Wheezes, (-) Rales Abd: Soft, (-) tenderness, (-) Distension, (-) Guarding, (-) Rebound Musculoskeletal: (-) Edema Lymph: (-) Cervical adenopathy Neuro: Alert, Oriented x3 Psych: Mood and affect Normal Triage Information Reviewed: Yes Vital Signs On Initial Exam: Initial Vitals Temp Pulse Resp BP Pulse Ox 97.3 F 110 20 99/63 99 03/29/19 13:48 03/29/19 13:48 03/29/19 13:48 03/29/19 13:48 03/29/19 13:48 Vital Signs Reviewed: Yes Procedures - Sedation Patient Received Moderate/Deep Sedation with Procedure: No Diagnostics - Vital Signs Vital Signs Temp Pulse Resp BP Pulse Ox 03/29/19 14:05 104 23 107/72 98 03/29/19 14:00 95 97 03/29/19 13:48 97.3 F 110 20 99/63 99 - Laboratory Result Diagrams: 03/29/19 14:36 03/29/19 14:36 Lab Statement: Any lab studies that have been ordered have been reviewed, and results considered in the medical decision making process. - Radiology cxr Radiology Interpretation Completed By: Radiologist Summary of Radiographic Findings: IMPRESSION: 1. The enlarged mediastinal silhouette is grossly unchanged from comparison imaging. 2. Small left greater than right pleural effusions. 3. Postoperative changes. The ED physician has reviewed this report. - EKG 1440 Cardiac Rate: Tachycardia EKG Rhythm: Atrial Fibrillation Summary of EKG Findings: Afib at 107bpm. Evidence for ischemia per Sgarbossa Criteria. No STEMI. This EKG was reviewed and interpreted by the ED physician. GIGU Course/Dx - Course Course Of Treatment: Patient is here with difficulty swallowing pills and food over the past 2 months. Patient was evaluated for this in January and diagnosed with a Zenker's diverticulum. Patient also has worsening fluid overload which is being managed by Dr. Cisneros. Patient had her Lasix increased just recently. Patient had a negative x-ray for widened mediastinum. Radiology was called and recommended repeat esophagram as an outpatient. Patient blood work performed which showed elevated creatinine which she's had in the past. This could be due to patient's new medications. Patient is following up with her fern cutter this week with more blood tests so she was encouraged to have him reassess her medications. Patient was referred to GI for further workup - Diagnoses Provider Diagnoses: Food impaction of esophagus, Acute kidney injury, Hyponatremia Discharge ED - Sign-Out/Discharge Documenting (check all that apply): Patient Departure - dc - Discharge Plan Condition: Stable Disposition: HOME Patient Education Materials: Acute Kidney Injury (DC), Hyponatremia (ED) Referrals: Susy Quevedo MD [Primary Care Provider] - Additional Instructions: PLEASE RETURN TO EMERGENCY DEPARTMENT FOR SOMETHING IN YOUR ESOPHAGUS THAT WILL NOT GO DOWN, FEVER, CHEST PAIN OR OTHER CONCERNS. Please follow up with Dr. Cisneros to see if your kidney is functioning normally and to discuss your abnormal labs. See Dr. Castillo in GI for evaluation. Please make all follow-ups in 1-3 days unless I advise you otherwise. - Billing Disposition and Condition Condition: STABLE Disposition: Home - Attestation Statements Document Initiated by Marcos: Yes Documenting Scribe: Nael Wlider Provider For Whom Marcos is Documenting (Include Credential): Bakari Ruiz MD Scribe Attestation: Nael Scott scribed for Bakari Ruiz MD on 03/29/19 at 1812. Scribe Documentation Reviewed: Yes Provider Attestation: The documentation as recorded by the Nael harrington accurately reflects the service I personally performed and the decisions made by me, Bakari Ruiz MD Status of Scribe Document: Viewed
--- OUTSIDE RECORDS SUMMARY | 2019-03-29 14:37 | XMS REPORT | Continuity of Care Document ---
:1930 External Reference #:[id number] Author Name Alem Bueno O.D. Address [address] [place] [address] Care Team Providers Name Role Phone Susy Quevedo M.D. - Internal Care Team Information [facility] [facility] Talib Cisneros M.D. - Cardiovascular Care Team Information [employer] Disease Problems Active Problems Provider Date Essential hypertension Onset: Hypercholesterolemia Onset: Arthritis Onset: Atrial fibrillation Onset: Retinal hemorrhage Alem Bueno O.D. Onset: 02/23/2015 Vitreous degeneration Alem Buneo O.D. Onset: 02/23/2015 Presence of intraocular lens Alem Bueno O.D. Onset: 02/23/2015 Ocular hypertension Alem Bueno O.D. Onset: 11/25/2015 Internal hordeolum Alem Bueno O.D. Onset: 07/26/2017 Conjunctival hemorrhage Alem Bueno O.D. Onset: 09/09/2017 Bilateral primary open angle glaucoma Alem Bueno O.D. Onset: 12/03/2017 Social History Type Date Description Comments Sex Unknown ETOH Use Denies alcohol use Tobacco Use Start: Unknown Patient has never smoked Recreational Drug Use Denies Drug Use Smoking Status Reviewed: 02/18/19 Patient has never smoked Allergies, Adverse Reactions, Alerts Description No Known Drug Allergies Medications Active Medications SIG Qnty Indications Ordering Provider Date Furosemide 1 daily Unknown 40mg Tablets Ferrousul 1 daily Unknown 325(65Fe) mg Tablets Folic Acid 1 daily Unknown 1mg Tablets Amiodarone HCL 1 tab daily Unknown 200mg Tablets Eliquis Unknown 5mg Tablets Cyanocobalamin Unknown 1000mcg Tablets Atorvastatin Calcium Stevanovich, 40mg MD Susy Tablets Levothyroxine Sodium Stevanovich, 50mcg MD Susy Tablets Pantoprazole Sodium Stevanovich, 40mg MD Susy Tablets DR Potassium Chloride ER Stevanovich, 10Meq MD Susy Tablets ER Docusate Sodium Unknown 100mg Capsules Aspirin Ec Low Dose Unknown 81mg Tablets DR Acetaminophen Unknown 325mg Tablets Nitroglycerin Unknown 0.4mg Tablets Sub Latanoprost 1 drop both 7.5ml Alem Bueno, 0.005% Solution eyes every O.D. night Immunizations Description No Information Available Vital Signs Description No Information Available Results Description No Information Available Procedures Date Code Description Status 08/20/2018 68318 Est Patient Intermediate Exam Completed Medical Devices Description No Information Available Encounters Description No Information Available Assessments Date Code Description Provider 02/18/2019 H40.1131 Primary open-angle glaucoma, bilateral, mild Alem Bueno O.D. stage 02/18/2019 Z96.1 Presence of intraocular lens Alem Bueno O.D. 08/20/2018 H40.1131 Primary open-angle glaucoma, bilateral, mild Alem Bueno O.D. stage Plan of Treatment 02/18/2019 - Alem Bueno O.D.H40.1131 Primary open-angle glaucoma, bilateral , mild stageComments:Smoking can increase the risk of developing or worsening any eye related disease, as well as affect your overall health. If you are a smoker, we strongly recommend that you quit.If you are not a smoker, we strongly recommend that you do not start. Your pressure is well controlled. Continue your drops.Follow up:6 months IOP rfnpeX12.1 Presence of intraocular lensComments:The artificial lens implants in both eyes appear to be stable at this time. Functional Status Description No Information Available Mental Status Description No Information Available Referrals Description No Information Available
--- OUTSIDE RECORDS SUMMARY | 2019-03-29 14:37 | XMS REPORT | Continuity of Care Document ---
:1930 External Reference #:[id number] Author Name Talib Cisneros M.D. (transmitted by agent of provider Shelley Morris) Address [address] [place] [address] Care Team Providers Name Role Phone Susy Quevedo MD - Internal Care Team Information College Counselor [employer] Sahil Pang MD - Internal Care Team Information College Counselor Medicine Problems Active Problems Provider Date Aortic [...] Result H/L Range Note Neph Routine 11/20/2018 [facility] Total Protein 6 mg/dL [address] [place] [address] [phone] Creatinine Random Urine 19.84 mg/dL CBC Auto 11/20/2018 [facility] White Blood 5.4 10^3/uL Normal 3.5-10.[address] [place] [address] [phone] Red Blood Count 3.23 10^6/uL Low 3.70-4.87 [...] Blood Cells % 0.0 Urinalysis Profile 11/20/2018 [facility] Urine Color Yellow [address] [place] [address] [phone] Urine Appearance Cloudy Urine Specific [place] 1.005 Low 1.010-1.030 Urine pH 7.0 Normal 5-9 Urine Urobilinogen Negative Negative Urine Ketones Negative Negative Urine Protein Negative Negative Urine Leukocytes Negative Negative Urine Blood Negative Negative Urine Nitrite Negative Negative Urine Bilirubin Negative Negative Urine Glucose Negative Negative Basic Metabolic 11/20/2018 [facility] Sodium 140 mmol/L Normal 135-[address] [place] [address] [phone] Potassium 4.1 mmol/L Normal 3.5-5.0 Chloride 102 mmol/L Normal 101-111 Co2 Carbon Dioxide 31 mmol/L Normal 22-32 Anion Gap 7 mmol/L Normal 2-11 Glucose 89 mg/dL Normal 70-100 Blood Urea Nitrogen 22 mg/dL Normal 6-24 Creatinine 1.67 mg/dL High 0.51-0.95 BUN/Creatinine Ratio 13.2 Normal 8-20 Calcium 9.1 mg/dL Normal 8.6-10.3 Egfr Non- 29.0 >60 Egfr 35.0 >60 1 Protein 11/20/2018 [facility] Total 6.5 g/dL 6.3 - Electrophoresis [address] Protein(Pep) 7.9 [place] [address] [phone] Albumin 3.4 g/dL 3.4-4.7 Alpha-1 Globulin 0.3 g/dL 0.1-0.3 Alpha-2 Globulin 1.0 g/dL 0.6-1.0 Beta Globulin 1.0 g/dL 0.7-1.2 Gamma Globulin 0.9 g/dL 0.6-1.6 Albumin/Globulin Ratio 1.13 Impression See Comment 2 Dawson/Lambda Free 11/20/2018 [facility] Dawson Free 6.31 mg/dL Abnormal 3 Light Chains Ser [address] [place] [address] [phone] Lambda Free Light Chain 2.74 mg/dL Abnormal 4 Dawson/Lambda Free Light Chain 2.30 Abnormal 5 Laboratory test 11/20/2018 [facility] TSH (Thyroid 7.09 High 0.34-5.[address] Stim Horm) mcIU/[place] [address] [phone] T3 Free 2.30 pg/mL Low 2.5-3.9 Free T4 (Free Thyroxine) 1.16 ng/dL High 0.61-1.12 T3 Total 51 ng/dL Low 87-178 Thyroperoxidase AB 0.20 IU/mL Normal <9 Thyroglobulin AB 0.0 IU/mL <4.0 Thyroid Stimulating Igg (Tsi) <1.0 TSIindex <=1.3 6 Comp Metabolic Panel 08/18/2018 [facility] Sodium 134 mmol/L Low 135-145 [address] [place] [address] [phone] Potassium 3.6 mmol/L Normal 3.5-5.0 Chloride 98 [...] Egfr 34.9 >60 7 Laboratory test 08/18/2018 [facility] Magnesium 1.8 mg/dL Low 1.9-2.[address] [place] [address] [phone] Troponin-I (TnI) 0.01 ng/mL <0.04 8 TSH (Thyroid Stim Horm) 4.36 mcIU/mL Normal 0.34-5.60 Free T4 (Free Thyroxine) 1.16 ng/dL High 0.61-1.12 Inr/Protime 08/18/2018 [facility] Inr 1.85 High 0.82-1.[address] [place] [address] [phone] CBC Auto Diff 08/18/2018 [facility] White Blood 7.5 Normal 3.5 -10.[address] Count 10^3/[place] [address] [phone] Red Blood Count 2.96 10^6/uL Low 3.70-4.87 [...] Blood Cells % 0.0 Laboratory test 08/18/2018 [facility] Troponin-I (TnI) 0.01 ng/ mL <0.04 10 finding [address] [place] [address] [phone] Laboratory test 08/18/2018 [facility] Troponin-I (TnI) 0.01 ng/ mL <0.04 11 finding [address] [place] [address] [phone] Urinalysis 08/05/2018 [facility] Urine Color Yellow Profile [address] [place] [address] [phone] Urine Appearance Clear Urine Specific [place] 1.005 Low 1.010-1.030 Urine pH 6.0 Normal 5-9 Urine Urobilinogen Negative Negative Urine Ketones Negative Negative Urine Protein Negative Negative Urine Leukocytes 1+ Abnormal Negative Urine Blood Negative Negative Urine Nitrite Negative Negative Urine Bilirubin Negative Negative Urine Glucose Negative Negative Urine White Blood Cell Trace(0-5/hpf) Absent Urine Red Blood Cell Absent Absent Urine Bacteria Absent Absent Urine Culture And 08/05/2018 [facility] Urine Culture SEE RESULT [address] [place] [address] [phone] 1 Because ethnic data is not always [...] protein on serum electrophoresis. Test Performed by: [place] [address] Bulb Packer: Mick Covington M.D. Ph.D.; CLIA# [id number] 3 REFERENCE VALUE 0.3300-1.94 4 REFERENCE VALUE 0.5700-2.63 5 Elevated free light chain ratios between 1.66 and 3.00 may occur due to polyclonal hypergammaglobulinemia or impaired renal clearance. An isolated increased free light chain ratio in this range should be interpreted with caution, and clinical correlation is recommended. REFERENCE VALUE 0.2600-1.65 Test Performed by: [place] [address] Bulb Packer: Mick Covington M.D. Ph.D.; CLIA# [id number] 6 Test Performed by: [address] [address] Bulb Packer: Mick Covington M.D. Ph.D.; IA# [id number] 7 Because ethnic data is not always [...] immediately to secondary confirmatory testing. Using the [employer] DxI 800 Access Immunoassay systems, the 99th percentile upper reference limit was demonstrated to be < 0.03 ng/mL. 9 Standard intensity warfarin therapeutic range: 2.0-3.0 High intensity warfarin therapeutic range: 2.5-3.5 10 Troponin-I testing on Plasma Separator Tubes (PST) has a known false positive rate of 0.20-0.40%. All positive troponins reflex immediately to secondary confirmatory testing. Using the [employer] DxI 800 Access Immunoassay systems, the 99th percentile upper reference limit was demonstrated to be < 0.03 ng/mL. 11 Troponin-I testing on Plasma Separator Tubes (PST) has a known false positive rate of 0.20-0.40%. All positive troponins reflex immediately to secondary confirmatory testing. Using the [employer] DxI 800 Access Immunoassay systems, the 99th percentile upper reference limit was demonstrated to be < 0.03 ng/mL. 12 SEE RESULT BELOW Name: VERONICA BHAT : [address]: Nicole Guerra MD Acct: [id number] Unit: [id number] AGE: 87 Location: [place] [address] Re08/06/18 SEX: F Status: ADM IN SPEC: [id number] LACEY: 08/05/18 [facility] DR: Dinora CURTIS REQ: [id number] RECD: 08/05/18 STATUS: COMP JUANITAHR DR: Carlos A Quevedo MD PC _ SOURCE: URINE SPDESC: ORDERED: Urine Culture Procedure Result Reported Site Urine Culture Final 08/07/18- 0840 ML Few Enterobacteriacae; possible contamination. * ML - Main Lab . END OF REPORT DEPARTMENT OF PATHOLOGY, [address] [place] [address] Brendon Nicole M.D. Director [facility] # [id number] Procedures Date Code Description Status 01/26/2019 93120 Cardioversion Completed 01/16/2019 01880 ECHO Transthorasic Realtime 2D W Doppler & Color Flow Completed Hosp 01/16/2019 57434 Treadmill Interp/Report Only Completed 01/16/2019 93389 Stress Test Supervsn W/Out I/R Completed 01/09/2019 79392 EKG Tracing & Interpretation Completed 01/02/2019 13509 Cardioversion Completed 12/10/2018 27903 Carpal Tunnel Release Completed 12/10/2018 40545 Carpal Tunnel Release Completed 11/19/2018 09138 EKG Tracing & Interpretation Completed 11/03/2018 23605 Cardioversion Completed 11/03/2018 89623 EKG, Interpretation Only Completed 11/02/2018 48274 EKG, Interpretation Only Completed 09/25/201845141 Inject/Drain Joint/Bursa Major W/O US Completed 09/25/2018 Injection, Carpal Tunnel Completed 08/20/2018 56679 EKG Tracing & Interpretation Completed 08/18/2018 73465 Cardioversion Completed 08/06/2018 59844 Moderate Sedation Services; Same Phys Intl 15 Mins; PT Completed >= 5 Years 08/06/2018 91246 EKG, Interpretation Only Completed 08/06/2018 32821 Cardioversion Completed 02/21/2018 [id number] Colonoscopy Completed 04/19/2009 51789444 Colonoscopy Completed Medical Devices Description No Information Available Encounters Type Date Location Provider Dx Diagnosis Office Visit 01/27/2019 [facility] Sera I48.91 Unspecified atrial 9:41a Assoc,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 NP fibrillation Hospitalists E87.6 Hypokalemia I12.9 Hypertensive chronic kidney disease w stg 1-4/unsp chr kdny N18.9 Chronic kidney disease, unspecified E03.9 Hypothyroidism, unspecified Office Visit 01/26/2019 9:40a [facility] Sera E87.6 Hypokalemia 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,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, 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 Hospitalists I12.9 Hypertensive chronic kidney disease w stg 1-4/unsp chr kdny N18.3 Chronic kidney disease, stage 3 (moderate) Office Visit 01/25/2019 9:39a [facility] Nicole Guerra, I13.0 Hyp hrt & chr Assoc,lo Nick kdny dis w hrt Hospitalists fail and stg 1-4/unsp chr kdny I50.30 Unspecified diastolic (congestive) heart failure N18.3 Chronic kidney disease, stage 3 (moderate) I48.91 Unspecified atrial fibrillation Office Visit 01/09/2019 8:45a [facility] Talib Medrano I44.7 Left bundle-branch Of [facility] Sandoval Cisneros block, unspecified I48.0 Paroxysmal atrial fibrillation I25.10 Athscl heart disease of [place] coronary artery w/o ang pctrs Office Visit 01/02/2019 11:03a [facility] Jesus Alberto Collins I48.92 Unspecified Of Emergency Worker DO Lane atrial flutter FACC I44.7 Left bundle-branch block, unspecified I48.0 Paroxysmal atrial fibrillation I13.0 Hyp hrt & chr kdny dis w hrt fail and stg 1-4/unsp chr kdny D63.1 Anemia in chronic kidney disease I50.9 Heart failure, unspecified N18.9 Chronic kidney disease, unspecified I25.10 Athscl heart disease of [place] coronary artery w/o ang pctrs Z98.61 Coronary angioplasty status Z79.01 penitentiary (current) use of anticoagulants Office Visit 11/27/2018 1:00p [facility]phrology Bob Reyes I12.9 Hypertensive MD Celia chronic kidney disease w stg 1-4/unsp chr kdny N18.4 Chronic kidney disease, stage 4 (severe) N17.9 Acute kidney failure, unspecified I10 Essential (primary) hypertension I48.0 Paroxysmal atrial fibrillation Office Visit 11/25/2018 10:15a [facility] Aaron Gomez G56.01 Carpal tunnel at Perico Johnson MD syndrome, right upper limb M19.011 Primary osteoarthritis, right shoulder S46.011A Strain of musc/tend the rotator cuff of right shoulder, init Office Visit 11/19/2018 10:45a [facility] Talib Medrano I48.0 Paroxysmal atrial Of Nathaniel Cisneros M.D. 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 Office Visit 11/13/2018 10:00a [facility] Nephrology Bob Reyes N18.4 Chronic kidney MD Celia disease, stage 4 (severe) I12.9 Hypertensive chronic kidney disease w stg 1-4/unsp chr kdny R60.0 Localized edema I48.0 Paroxysmal atrial fibrillation I50.33 Acute on chronic diastolic (congestive) heart failure D64.9 Anemia, unspecified Office Visit 11/03/2018 [facility] Kerline I48.91 Unspecified atrial 9:06a Asslo blunt MD fibrillation Hospitalists M54.9 Dorsalgia, unspecified Office Visit 11/02/2018 [facility] Nicole Guerra, I48.91 Unspecified 9:06a lo Murcia M.D. atrial Hospitalists fibrillation M54.9 Dorsalgia, unspecified N18.4 Chronic kidney disease, stage 4 (severe) Office Visit 11/02/2018 11:46a [facility] Harvey Saldana I48.0 Paroxysmal atrial Sandoval Richards fibrillation I50.30 Unspecified diastolic (congestive) heart failure R00.0 Tachycardia, unspecified D64.9 Anemia, unspecified R07.89 Other chest pain Office Visit 09/25/2018 2:30p [place] Aaron Gomez S46.011A Strain of Orthopedics at MD solange Johnson/tend the [place] rotator cuff of right shoulder, init M19.011 Primary osteoarthritis, right shoulder G56.01 Carpal tunnel syndrome, right upper limb S72.002D Fx unsp part of nk of perry thapar, subs for clos fx w routn heal Office Visit 08/20/2018 3:15p [facility] Talib Medrano Z95.2 Presence of Of Nathaniel Cisneros M.D. prosthetic heart valve I25.10 Athscl heart disease of [place] coronary artery w/o ang pctrs I48.0 Paroxysmal atrial fibrillation Office Visit 08/08/2018 [facility], I50.33 Acute on chronic 9:41a ol Murcia M.D. diastolic Hospitalists (congestive) heart failure I48.91 Unspecified atrial fibrillation E83.42 Hypomagnesemia Office Visit 08/06/2018 [facility], I48.91 Unspecified 9:40a lo Murcia M.D. atrial Hospitalists fibrillation I50.33 Acute on chronic diastolic (congestive) heart failure D64.9 Anemia, unspecified N18.3 Chronic kidney disease, stage 3 (moderate) Office Visit 08/06/2018 2:28p [place] Conchita Thompson I48.91 Unspecified atrial Cardiology Of M.DCasey fibrillation Emergency Worker I25.10 Athscl heart disease of [place] coronary artery w/o ang pctrs E87.8 Oth disorders of electrolyte and fluid balance, NEC Office Visit 08/05/2018 [facility] I48.91 Unspecified 9:39a Asslo blunt PA atrial Hospitalists fibrillation I50.9 Heart failure, unspecified R74.8 Abnormal levels of other serum enzymes E83.42 Hypomagnesemia E87.1 Hypo-osmolality and hyponatremia Assessments Date Code Description Provider 01/27/2019 I48.91 Unspecified atrial fibrillation Sera Constantino NP 01/27/2019 E87.6 Hypokalemia Sera Constantino NP 01/27/2019 I12.9 Hypertensive chronic kidney disease with Sera Constantino NP stage 1 through stage 4 chronic kidney disease, or unspecified chronic kidney disease 01/27/2019 N18.9 Chronic kidney disease, unspecified Sera Constantino NP 01/27/2019 E03.9 Hypothyroidism, unspecified Sera Constantino NP 01/26/2019 E87.6 Hypokalemia Sera Constantino NP 01/26/2019 I12.9 Hypertensive chronic kidney disease with Sera Constantino NP stage 1 through stage 4 chronic kidney disease, or unspecified chronic kidney disease 01/26/2019 N18.3 Chronic kidney disease, stage 3 Sera Constantino NP (moderate) 01/25/2019 I13.0 Hypertensive heart and chronic kidney Nicole Guerra M.D. disease with heart failure and stage 1 through stage 4 chronic kidney disease, or unspecified chronic kidney disease 01/25/2019 I50.30 Unspecified diastolic (congestive) heart Nicole Guerra M.D. failure 01/25/2019 N18.3 Chronic kidney disease, stage 3 Nicole Guerra M.D. (moderate) 01/25/2019 I48.91 Unspecified atrial fibrillation Nicole Guerra M.D. 01/22/2019 G56.01 Carpal tunnel syndrome, right upper limb Aaron Johnson MD 01/22/2019 Z47.89 Encounter for other orthopedic aftercare Aaron Johnson MD 01/09/2019 I44.7 Left bundle-branch block, unspecified Talib Cisneros M.D. 01/09/2019 I48.0 Paroxysmal atrial fibrillation Talib Cisneros M.D. 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 01/02/2019 I48.92 Unspecified atrial flutter Jesus Alberto Sherman DO FACC 01/02/2019 I44.7 Left bundle-branch block, unspecified Jesus Alberto Sherman, DO FACC 01/02/2019 I48.0 Paroxysmal atrial fibrillation Jesus Alberto Sherman, DO FACC 01/02/2019 I13.0 Hypertensive heart and chronic kidney Jesus Alberto Sherman, DO FACC disease with heart failure and stage 1 through stage 4 chronic kidney disease, or unspecified chronic kidney disease 01/02/2019 D63.1 Anemia in chronic kidney disease Jesus Alberto Sherman DO FACC 01/02/2019 I50.9 Heart failure, unspecified Jesus Alberto Sherman, DO FACC 01/02/2019 N18.9 Chronic kidney disease, unspecified Jesus Alberto Sherman, DO FACC 01/02/2019 I25.10 Atherosclerotic heart disease of [place] Jesus Alberto Sherman, DO [facility] coronary artery without angina pectoris 01/02/2019 Z98.61 Coronary angioplasty status Jesus Alberto Sherman DO [facility] 01/02/2019 Z79.01 penitentiary (current) use of Jesus Alberto Sherman DO [facility] anticoagulants 12/25/2018 G56.01 Carpal tunnel syndrome, right [...] failure 11/19/2018 I25.10 Atherosclerotic heart disease of [place] Talib Cisneros M.D. coronary artery with 11/19/2018 [...] electrocardiogram [ECG] [EKG] Jesus Alberto Sherman DO [facility] 11/03/2018 I48.91 Unspecified atrial fibrillation Talib Cisneros [...] M.D. 08/20/2018 I25.10 Atherosclerotic heart disease of [place] Talib Cisneros M.D. coronary artery with 08/20/2018 [...] failure 08/06/2018 I25.10 Atherosclerotic heart disease of [place] Conchita Thompson M.D. coronary artery with 08/06/2018 [...] 9:45 am - Talib Cisneros M.D. at [facility]01[facility]2019 - Aaron Johnson MDG56.01 Carpal tunnel syndrome, right upper limbFollow up:Follow up: As qhlpzhE50.89 Encounter for other orthopedic aftercare Functional Status Description No Information Available Mental Status Description No Information Available Referrals Description No Information Available
--- OUTSIDE RECORDS SUMMARY | 2019-03-29 14:37 | XMS REPORT | Continuity of Care Document ---
:1930 External Reference #:[id number] Author Name Talib Cisneros M.D. (transmitted by agent of provider Sarahi Acevedo) Address [address] [place] [address] Care Team Providers Name Role Phone Susy Quevedo MD - Internal Care Team Information [facility] [facility] [employer] Medicine Sahil Pang MD - Internal Care Team Information Brush Or Broom Cutter [phone] Medicine Problems Active Problems Provider Date Aortic [...] Patient has never smoked Smoking Status Reviewed: 02/11/19 Patient has never smoked Exercise Type/Frequency Exercises rarely Allergies, Adverse Reactions, Alerts Description No Known Drug Allergies Medications Active Medications SIG Qnty Indications Ordering Date Provider Eliquis 1 tab po twice Unknown 07/16/2018 2.5mg Tablets daily Nitroglycerin 1 sl q5mins x3 as 25tabs Talib Medrano 10/17/2016 0.4mg needed for chest Sandoval Cisneros Tablets Sub pain Potassium Chloride 1/2 by mouth every Unknown Lorraine ER day 20Meq Tablets ER Pantoprazole Sodium 1 by mouth every Unknown day 40mg Tablets DR Lipitor 1/2 by mouth at Unknown 40mg Tablets bedtime Vitamin B12 1 by mouth every Unknown 1000mcg day Tablets ER Miralax 17 grams by mouth Unknown Powder every day as needed Amiodarone HCL 2 tablet po daily Unknown 200mg Tablets Glycerin as needed Unknown Nystatin powder [...] History Medications Tramadol HCL take 1-2 tabs 30tabs Aaron Gomez 12/10/2018 - 50mg Tablets by mouth every MD Alex 01/08/2019 6 hours as needed for pain Potassium Chloride 1 tab by mouth 30units Unknown 11/11/2018 - 10Meq/50ML twice a day 02/11/2019 Solution Spironolactone 1/2 tab by Unknown 11/10/2018 - 25mg Tablets mouth every day 11/13/2018 Medications Administered in Office Medication SIG Qnty Indications Ordering Provider Date Dexamethasone Sodium Aaron Johnson MD 09/25/2018 Phosphate, 1 MG Injection Depomedrol 40MG Aaron Johnson MD 09/25/2018 Injection Immunizations Description No Information Available Vital Signs Date Vital Result Comment 02/11/2019 11:24am Height 66 inches 5'6" Weight 178.38 lb with shoes Heart Rate 80 /min irregular BP Systolic Recheck 110 mmHg BP Diastolic Recheck 60 mmHg Respiratory Rate 13 /min BMI (Body Mass Index) 28.8 kg/m2 Ejection Fraction 60-65% ECHO 01/16/2019 01/22/2019 1:33pm Height 66 inches 5'6" Weight 195.00 lb Heart Rate 72 /min BP Systolic Sitting 114 mmHg BP Diastolic Sitting 70 mmHg Body Temperature 98.9 F Pain Level 0 BMI (Body Mass Index) 31.5 kg/m2 Results Test Acquired Date Facility Test Result H/L Range Note Neph Routine 11/20/2018 [facility] Total Protein 6 mg/dL [address] [place] [address] [phone] Creatinine Random Urine 19.84 mg/dL CBC Auto 11/20/2018 [facility] White Blood 5.4 10^3/uL Normal 3.5-10.[address] [place] [address] [phone] Red Blood Count 3.23 10^6/uL Low 3.70-4.87 [...] Blood Cells % 0.0 Urinalysis Profile 11/20/2018 [facility] Urine Color Yellow [address] [place] [address] [phone] Urine Appearance Cloudy Urine Specific [place] 1.005 Low 1.010-1.030 Urine pH 7.0 Normal 5-9 Urine Urobilinogen Negative Negative Urine Ketones Negative Negative Urine Protein Negative Negative Urine Leukocytes Negative Negative Urine Blood Negative Negative Urine Nitrite Negative Negative Urine Bilirubin Negative Negative Urine Glucose Negative Negative Basic Metabolic 11/20/2018 [facility] Sodium 140 mmol/L Normal 135-[address] [place] [address] [phone] Potassium 4.1 mmol/L Normal 3.5-5.0 Chloride 102 mmol/L Normal 101-111 Co2 Carbon Dioxide 31 mmol/L Normal 22-32 Anion Gap 7 mmol/L Normal 2-11 Glucose 89 mg/dL Normal 70-100 Blood Urea Nitrogen 22 mg/dL Normal 6-24 Creatinine 1.67 mg/dL High 0.51-0.95 BUN/Creatinine Ratio 13.2 Normal 8-20 Calcium 9.1 mg/dL Normal 8.6-10.3 Egfr Non- 29.0 >60 Egfr 35.0 >60 1 Protein 11/20/2018 [facility] Total 6.5 g/dL 6.3 - Electrophoresis [address] Protein(Pep) 7.9 [place] [address] [phone] Albumin 3.4 g/dL 3.4-4.7 Alpha-1 Globulin 0.3 g/dL 0.1-0.3 Alpha-2 Globulin 1.0 g/dL 0.6-1.0 Beta Globulin 1.0 g/dL 0.7-1.2 Gamma Globulin 0.9 g/dL 0.6-1.6 Albumin/Globulin Ratio 1.13 Impression See Comment 2 [place]/Lambda Free 11/20/2018 [facility] [place] Free 6.31 mg/dL Abnormal 3 Light Chains Ser [address] [place] [address] [phone] Lambda Free Light Chain 2.74 mg/dL Abnormal 4 [place]/Lambda Free Light Chain 2.30 Abnormal 5 Laboratory test 11/20/2018 [facility] TSH (Thyroid 7.09 High 0.34-5.[address] Stim Horm) mcIU/[place] [address] [phone] T3 Free 2.30 pg/mL Low 2.5-3.9 Free T4 (Free Thyroxine) 1.16 ng/dL High 0.61-1.12 T3 Total 51 ng/dL Low 87-178 Thyroperoxidase AB 0.20 IU/mL Normal <9 Thyroglobulin AB 0.0 IU/mL <4.0 Thyroid Stimulating Igg (Tsi) <1.0 TSIindex <=1.3 6 Comp Metabolic Panel 08/18/2018 [facility] Sodium 134 mmol/L Low 135-[address] [place] [address] [phone] Potassium 3.6 mmol/L Normal 3.5-5.0 Chloride 98 [...] Egfr 34.9 >60 7 Laboratory test 08/18/2018 [facility] Magnesium 1.8 mg/dL Low 1.9-2.[address] [place] [address] [phone] Troponin-I (TnI) 0.01 ng/mL <0.04 8 TSH (Thyroid Stim Horm) 4.36 mcIU/mL Normal 0.34-5.60 Free T4 (Free Thyroxine) 1.16 ng/dL High 0.61-1.12 Inr/Protime 08/18/2018 [facility] Inr 1.85 High 0.82-1.[address] [place] [address] [phone] CBC Auto Diff 08/18/2018 [facility] White Blood 7.5 Normal 3.5 -10.[address] Count 10^3/[place] [address] [phone] Red Blood Count 2.96 10^6/uL Low 3.70-4.87 [...] Blood Cells % 0.0 Laboratory test 08/18/2018 [facility] Troponin-I (TnI) 0.01 ng/ mL <0.04 [address] [place] [address] [phone] Laboratory test 08/18/2018 [facility] Troponin-I (TnI) 0.01 ng/ mL <0.04 [address] [place] [address] [phone] 1 Because ethnic data is not always [...] serum electrophoresis. Test Performed by: [facility] [place] [address] Bilingual Operator: Mick Covington M.D. Ph.D.; CLIA# [id number] 3 REFERENCE VALUE 0.3300-1.94 4 REFERENCE VALUE 0.5700-2.63 5 Elevated free light chain ratios between 1.66 and 3.00 may occur due to polyclonal hypergammaglobulinemia or impaired renal clearance. An isolated increased free light chain ratio in this range should be interpreted with caution, and clinical correlation is recommended. REFERENCE VALUE 0.2600-1.65 Test Performed by: [facility] [place] [address] Bilingual Operator: Mick Covington M.D. Ph.D.; CLIA# [id number] 6 Test Performed by: [place] [id number] Bilingual Operator: Mick Covington M.D. Ph.D.; CLIA# [id number] 7 Because ethnic data is not always [...] immediately to secondary confirmatory testing. Using the [employer] DxI 800 Access Immunoassay systems, the 99th percentile upper reference limit was demonstrated to be < 0.03 ng/mL. 9 Standard intensity warfarin therapeutic range: 2.0-3.0 High intensity warfarin therapeutic range: 2.5-3.5 10 Troponin-I testing on Plasma Separator Tubes (PST) has a known false positive rate of 0.20-0.40%. All positive troponins reflex immediately to secondary confirmatory testing. Using the [employer] DxI 800 Access Immunoassay systems, the 99th percentile upper reference limit was demonstrated to be < 0.03 ng/mL. 11 Troponin-I testing on Plasma Separator Tubes (PST) has a known false positive rate of 0.20-0.40%. All positive troponins reflex immediately to secondary confirmatory testing. Using the [employer] DxI 800 Access Immunoassay systems, the 99th percentile upper reference limit was demonstrated to be < 0.03 ng/mL. Procedures Date Code Description Status 02/03/2019 77510 Pace Maker Eval W/Iterative Adjment Dual Lead Completed 02/02/2019 45271 Perm Pacemaker Av Sequential Atrial And Ventricular Completed 01/31/2019 71277 Cardioversion Completed 01/26/2019 89057 Cardioversion Completed 01/16/2019 43502 ECHO Transthorasic Realtime 2D W Doppler & Color Flow Completed Hosp 01/16/2019 26975 Treadmill Interp/Report Only Completed 01/16/2019 25059 Stress Test Supervsn W/Out I/R Completed 01/09/2019 92827 EKG Tracing & Interpretation Completed 01/02/2019 46218 Cardioversion Completed 12/10/2018 62410 Carpal Tunnel Release Completed 12/10/2018 68282 Carpal Tunnel Release Completed 11/19/2018 54431 EKG Tracing & Interpretation Completed 11/03/2018 99356 EKG, Interpretation Only Completed 11/03/2018 18620 Cardioversion Completed 11/02/2018 19315 EKG, Interpretation Only Completed 09/25/2018 53528 Inject/Drain Joint/Bursa Major W/O US Completed 09/25/2018 Injection, Carpal Tunnel Completed 08/20/2018 02146 EKG Tracing & Interpretation Completed 08/18/2018 27861 Cardioversion Completed 02/21/2018 35650572 Colonoscopy Completed 04/19/2009 12461292 Colonoscopy Completed Medical Devices Description No Information Available Encounters Type Date Location Provider Dx Diagnosis Office Visit 02/01/2019 [facility] Jesus Alberto Sherman, I48.0 Paroxysmal atrial 11:42a Of Real Estate Broker DO FACC fibrillation I48.92 Unspecified atrial flutter Office Visit 01/31/2019 1:17p [facility] Jesus Alberto Collins I48.92 Unspecified Of Nathaniel Sherman, DO atrial flutter FACC I44.7 Left bundle-branch block, unspecified I48.0 Paroxysmal atrial fibrillation I13.0 Hyp hrt & chr kdny dis w hrt fail and stg 1-4/unsp chr kdny I50.30 Unspecified diastolic (congestive) heart failure N18.9 Chronic kidney disease, unspecified D63.1 Anemia in chronic kidney disease [facility] Unspecified 9:41a Assoc,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 NP atrial Hospitalists fibrillation E87.6 Hypokalemia I12.9 Hypertensive chronic kidney disease w stg 1-4/unsp chr kdny N18.9 Chronic kidney disease, unspecified E03.9 Hypothyroidism, unspecified Office Visit 01/26/2019 11:45a [facility] Talib Medrano I48.91 Unspecified atrial Of Nathaniel Cisneros M.D. 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 Office Visit [facility] Hypokalemia Assoc,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 NP Hospitalists I12.9 Hypertensive chronic kidney disease w stg 1-4/unsp chr kdny N18.3 Chronic kidney disease, stage 3 (moderate) Office Visit 01/25/2019 9:39a [facility] Nicole Guerra, I13.0 Hyp hrt & chr Assoc,lo Nick kdny dis w hrt Hospitalists fail and stg 1-4/unsp chr kdny I50.30 Unspecified diastolic (congestive) heart failure N18.3 Chronic kidney disease, stage 3 (moderate) I48.91 Unspecified atrial fibrillation Office Visit 01/19/2019 11:40a [facility] Jesus Alberto S. I48.0 Paroxysmal atrial Of Nathaniel Sherman, DO fibrillation FACC I48.92 Unspecified atrial flutter I13.0 Hyp hrt & chr kdny dis w hrt fail and stg 1-4/unsp chr kdny N18.9 Chronic kidney disease, unspecified I50.30 Unspecified diastolic (congestive) heart failure Office Visit 01/09/2019 8:45a [facility] Talib Medrano I44.7 Left bundle-branch Of Nathaniel Sandoval Cisneros block, unspecified I48.0 Paroxysmal atrial fibrillation I25.10 Athscl heart disease of [place] coronary artery w/o ang pctrs Office Visit 01/02/2019 11:03a [facility] Jesus Alberto SCasey I48.92 Unspecified Of Nathaniel Sherman, DO atrial flutter FACC I44.7 Left bundle-branch block, unspecified I48.0 Paroxysmal atrial fibrillation I13.0 Hyp hrt & chr kdny dis w hrt fail and stg 1-4/unsp chr kdny D63.1 Anemia in chronic kidney disease I50.9 Heart failure, unspecified N18.9 Chronic kidney disease, unspecified I25.10 Athscl heart disease of [place] coronary artery w/o ang pctrs Z98.61 Coronary angioplasty status Z79.01 skilled nursing (current) use of anticoagulants Office Visit 11/27/2018 1:00p [facility] Bob Reyes I12.9 Hypertensive MD Celia chronic kidney disease w stg 1-4/unsp chr kdny N18.4 Chronic kidney disease, stage 4 (severe) N17.9 Acute kidney failure, unspecified I10 Essential (primary) hypertension I48.0 Paroxysmal atrial fibrillation Office Visit 11/25/2018 10:15a [facility] Aaron Gomez G56.01 [place] syndrome, right upper limb M19.011 Primary osteoarthritis, right shoulder S46.011A Strain of musc/tend the rotator cuff of right shoulder, init Office Visit 11/19/2018 10:45a [facility] Talib Medrano I48.0 Paroxysmal atrial Of Nathaniel Cisneros M.D. 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 Office Visit 11/13/2018 10:00a [facility] Bob ACasey N18.4 Chronic kidney MD Celia disease, stage 4 (severe) I12.9 Hypertensive chronic kidney disease w stg 1-4/unsp chr kdny R60.0 Localized edema I48.0 Paroxysmal atrial fibrillation I50.33 Acute on chronic diastolic (congestive) heart failure D64.9 Anemia, unspecified Office Visit 11/03/2018 [facility] Kerline I48.91 Unspecified atrial 9:06a lo Murcia MD fibrillation Hospitalists M54.9 Dorsalgia, unspecified Office Visit 11/02/2018 11:46a [facility] Harvey Saldana I48.0 Paroxysmal atrial Sandoval Richards fibrillation I50.30 Unspecified diastolic (congestive) heart failure R00.0 Tachycardia, unspecified D64.9 Anemia, unspecified R07.89 Other chest pain Office Visit 11/02/2018 [facility] Nicole Guerra, I48.91 Unspecified 9:06a lo Murcia M.D. atrial Hospitalists fibrillation M54.9 Dorsalgia, unspecified N18.4 Chronic kidney disease, stage 4 (severe) Office Visit 09/25/2018 2:30p [facility] Aaron F S46.011A Strain of Orthopedics at MD Alex musc/tend the [place] rotator cuff of right shoulder, init M19.011 Primary osteoarthritis, right shoulder G56.01 Carpal tunnel syndrome, right upper limb S72.002D Fx unsp part of nk of perry boggs, subs for clos fx w routn heal Office Visit 08/20/2018 3:15p [facility] Talib Medrano Z95.2 Presence of Of Nathaniel Cisneros M.D. prosthetic heart valve I25.10 Athscl heart disease of [place] coronary artery w/o ang pctrs I48.0 Paroxysmal atrial fibrillation Assessments Date Code Description Provider 02/11/2019 Z95.0 Presence of cardiac pacemaker Talib Cisneros M.D. 02/11/2019 I49.5 Sick sinus syndrome Talib Cisneros M.D. 02/11/2019 I48.0 Paroxysmal atrial fibrillation Talib Cisneros M.D. 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 02/02/2019 I49.5 Sick sinus syndrome Talib Cisneros M.D. 02/01/2019 I48.0 Paroxysmal atrial fibrillation Jesus Alberto Sherman, DO [facility] 02/01/2019 I48.92 Unspecified atrial flutter Jesus Alberto Sherman, DO [facility] 01/31/2019 I48.92 Unspecified atrial flutter Jesus Alberto Sherman, DO [facility] 01/31/2019 I44.7 Left bundle-branch block, unspecified Jesus Alberto Sherman, DO [facility] 01/31/2019 I48.0 Paroxysmal atrial fibrillation Jesus Alberto Sherman, DO [facility] 01/31/2019 I13.0 Hypertensive heart and chronic kidney Jesus Alberto Sherman, DO [facility] disease with heart failure and stage 1 through stage 4 chronic kidney disease, or unspecified chronic kidney disease 01/31/2019 I50.30 Unspecified diastolic (congestive) Jesus Alberto Sherman, DO [facility] heart failure 01/31/2019 N18.9 Chronic kidney disease, unspecified Jesus Alberto Sherman, DO [facility] 01/31/2019 D63.1 Anemia in chronic kidney disease Jesus Alberto Sherman, DO [facility] 01/27/2019 I48.91 Unspecified atrial fibrillation Sera Constantino NP 01/27/2019 E87.6 Hypokalemia Sera Constantino NP 01/27/2019 I12.9 Hypertensive chronic kidney disease Sera Constantino NP with stage 1 through stage 4 chronic kidney disease, or unspecified chronic kidney disease 01/27/2019 N18.9 Chronic kidney disease, unspecified Sera Constantino NP 01/27/2019 E03.9 Hypothyroidism, unspecified Sera Vira, OVERNIGHT CAREGIVER 01/26/2019 I48.91 Unspecified atrial fibrillation Talib Cisneros M.D. 01/26/2019 I49.5 Sick sinus syndrome Talib Cisneros M.D. 01/26/2019 Z79.01 skilled nursing (current) use of Talib Cisneros M.D. anticoagulants 01/26/2019 E87.6 Hypokalemia Sera Constantino NP 01/26/2019 I12.9 Hypertensive chronic kidney disease Sera Constantino NP with stage 1 through stage 4 chronic kidney disease, or unspecified chronic kidney disease 01/26/2019 N18.3 Chronic kidney disease, stage 3 Sera Constantino NP (moderate) 01/25/2019 I13.0 Hypertensive heart and chronic kidney Nicole Guerra M.D. disease with heart failure and stage 1 through stage 4 chronic kidney disease, or unspecified chronic kidney disease 01/25/2019 I50.30 Unspecified diastolic (congestive) Nicole Guerra M.D. heart failure 01/25/2019 N18.3 Chronic kidney disease, stage 3 Nicole Guerra M.D. (moderate) 01/25/2019 I48.91 Unspecified atrial fibrillation Nicole Guerra M.D. 01/22/2019 G56.01 Carpal tunnel syndrome, right upper Aaron Johnson MD limb 01/22/2019 Z47.89 Encounter for other orthopedic Aaron Johnson MD aftercare 01/19/2019 I48.0 Paroxysmal atrial fibrillation Jesus Alberto Sherman DO FACC 01/19/2019 I48.92 Unspecified atrial flutter Jesus Alberto Sherman DO FACC 01/19/2019 I13.0 Hypertensive heart and chronic kidney Jesus Alberto Sherman, DO FAC disease with heart failure and stage 1 through stage 4 chronic kidney disease, or unspecified chronic kidney disease 01/19/2019 N18.9 Chronic kidney disease, unspecified Jesus Alberto Sherman DO FACC 01/19/2019 I50.30 Unspecified diastolic (congestive) Jesus Alberto Sherman DO [facility] heart failure 01/16/2019 R07.9 Chest pain, unspecified Dannie Stefek, M.D., [facility], [facility] 01/09/2019 I44.7 Left bundle-branch block, unspecified Talib Cisneros M.D. 01/09/2019 I48.0 Paroxysmal atrial fibrillation Talib Cisneros M.D. 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 01/02/2019 I48.92 Unspecified atrial flutter Jesus Alberto SCasey Sherman, DO [facility] 01/02/2019 I44.7 Left bundle-branch block, unspecified Jesus Albertochente Sandovalno, DO FACC 01/02/2019 I48.0 Paroxysmal atrial fibrillation Jesus Alberto SCasey Sherman, DO [facility] 01/02/2019 I13.0 Hypertensive heart and chronic kidney Jesus Alberto Sherman DO [facility] disease with heart failure and stage 1 through stage 4 chronic kidney disease, or unspecified chronic kidney disease 01/02/2019 D63.1 Anemia in chronic kidney disease Jesus Alberto SCasey Sherman, DO [facility] 01/02/2019 I50.9 Heart failure, unspecified Jesus Albertochente Sandovalno, DO FACC 01/02/2019 N18.9 Chronic kidney disease, unspecified Jesus Alberto SCasey Sherman, DO FACC 01/02/2019 I25.10 Atherosclerotic heart disease of Jesus Alberto Sherman, DO [facility] [place] coronary artery without angina pectoris 01/02/2019 Z98.61 Coronary angioplasty status Jesus Alberto SCasey Sherman, DO [facility] 01/02/2019 Z79.01 skilled nursing (current) use of Jesus Alberto SCasey Sherman, DO [facility] anticoagulants 12/25/2018 G56.01 Carpal tunnel syndrome, right upper Aaron Johnson MD limb 12/25/2018 Z47.89 Encounter for other orthopedic Aaron Johnson MD aftercare 12/10/2018 G56.01 Carpal tunnel syndrome, right upper [...] Atherosclerotic heart disease of Talib Cisneros M.D. [place] coronary artery with 11/19/2018 Z95.2 Presence of [...] Abnormal electrocardiogram [ECG] Jesus Alberto Sherman DO FACC [EKG] 11/03/2018 I48.91 Unspecified atrial fibrillation Talib [...] Atherosclerotic heart disease of Talib Cisneros M.D. [place] coronary artery with 08/20/2018 I48.0 Paroxysmal atrial fibrillation Talib Cisneros M.D. 08/18/2018 I48.0 Paroxysmal atrial fibrillation Talib Cisneros M.D. Plan of Treatment Future Appointment(s):04/17/2019 11:15 am - Talib Cisneros M.D. at [facility]02/25/2019 10:30 am - Ica Pacer Schedule at [facility]07/10/2019 9:45 am - Talib Cisneros M.D. at [facility] - Talib Cisneros M.D.Z95.0 Presence of cardiac pacemakerNew Orders: Interrogation Pacemaker, Ordered: 02/11/19Referral:Dakota Streeter MD, Cardiac ElectrophyslgyFollow up:2 jlmobbT27.5 Sick sinus kftjmepzN81.0 Paroxysmal atrial mzqzkfxfxoixL85.10 Atherosclerotic heart disease of [place] coronary artery without angina kcumboawG05.3 History of porcine aortic valve replacement Functional Status Description No Information Available Mental Status Description No Information Available Referrals Refer to Reason for Referral Status Appt Date Dakota Streeter MD Created [address] [place] [address] [phone]
--- OUTSIDE RECORDS SUMMARY | 2019-03-29 14:37 | XMS REPORT | Continuity of Care Document ---
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] Blood Cells % 0.0 Urinalysis Profile 11/20/2018 [facility] Urine Color Yellow [address] [place] [address] [phone] Urine Appearance Cloudy Urine Specific [place] 1.005 Low 1.010-1.030 Urine pH 7.0 Normal 5-9 Urine Urobilinogen Negative Negative Urine Ketones Negative Negative Urine Protein Negative Negative Urine Leukocytes Negative Negative Urine Blood Negative Negative Urine Nitrite Negative Negative Urine Bilirubin Negative Negative Urine Glucose Negative Negative Basic Metabolic 11/20/2018 [facility] Sodium 140 mmol/L Normal 135-145 Panel [address] [place] [address] [phone] Potassium 4.1 mmol/L Normal 3.5-5.0 Chloride 102 mmol/L Normal 101-111 Co2 Carbon Dioxide 31 mmol/L Normal 22-32 Anion Gap 7 mmol/L Normal 2-11 Glucose 89 mg/dL Normal 70-100 Blood Urea Nitrogen 22 mg/dL Normal 6-24 Creatinine 1.67 mg/dL High 0.51-0.95 BUN/Creatinine Ratio 13.2 Normal 8-20 Calcium 9.1 mg/dL Normal 8.6-10.3 Egfr Non- 29.0 >60 Egfr 35.0 >60 1 Protein 11/20/2018 [facility] Total 6.5 g/dL 6.3 - Electrophoresis [address] Protein(Pep) 7.9 [place] [address] [phone] Albumin 3.4 g/dL 3.4-4.7 Alpha-1 Globulin 0.3 g/dL 0.1-0.3 Alpha-2 Globulin 1.0 g/dL 0.6-1.0 Beta Globulin 1.0 g/dL 0.7-1.2 Gamma Globulin 0.9 g/dL 0.6-1.6 Albumin/Globulin Ratio 1.13 Impression See Comment 2 Alma/Lambda Free 11/20/2018 [facility] Alma Free 6.31 mg/dL Abnormal 3 Light Chains Ser [address] [place] [address] [phone] Lambda Free Light Chain 2.74 mg/dL Abnormal 4 [place]/Lambda Free Light Chain 2.30 Abnormal 5 Laboratory test 11/20/2018 [facility] TSH (Thyroid 7.09 High 0.34-5.[address] Stim Horm) mcIU/[place] [address] [phone] T3 Free 2.30 pg/mL Low 2.5-3.9 Free T4 (Free Thyroxine) 1.16 ng/dL High 0.61-1.12 T3 Total 51 ng/dL Low 87-178 Thyroperoxidase AB 0.20 IU/mL Normal <9 Thyroglobulin AB 0.0 IU/mL <4.0 Thyroid Stimulating Igg (Tsi) <1.0 TSIindex <=1.3 6 1 Because ethnic data is not always [...] protein on serum electrophoresis. Test Performed by: [place] [address] Mohs Surgeon: Mick Covington M.D. Ph.D.; CLIA# [id number] 3 REFERENCE VALUE 0.3300-1.94 4 REFERENCE VALUE 0.5700-2.63 5 Elevated free light chain ratios between 1.66 and 3.00 may occur due to polyclonal hypergammaglobulinemia or impaired renal clearance. An isolated increased free light chain ratio in this range should be interpreted with caution, and clinical correlation is recommended. REFERENCE VALUE 0.2600-1.65 Test Performed by: [address] [address] Mohs Surgeon: Mick Covington M.D. Ph.D.; CLIA# [id number] Test Performed by: [address] [address] Mohs Surgeon: Mick Covington M.D. Ph.D.; CLIA# [id number] Procedures Date Code Description Status 02/25/2019 51688 Pace Maker Eval W/Iterative Adjment Dual Lead Completed 02/25/2019 47330 Pace Maker Eval W/Iterative Adjment Dual Lead Completed 02/03/2019 97485 Pace Maker Eval W/Iterative Adjment Dual Lead Completed 02/03/2019 07757 Cardioversion Completed 02/02/2019 35149 Perm Pacemaker Av Sequential Atrial And Ventricular Completed 01/31/2019 08921 EKG, Interpretation Only Completed 01/31/2019 42720 Cardioversion Completed 01/27/2019 58011 EKG, Interpretation Only Completed 01/26/2019 12833 EKG, Interpretation Only Completed 01/26/2019 30778 Cardioversion Completed 01/25/2019 68070 EKG, Interpretation Only Completed 01/17/2019 58092 EKG, Interpretation Only Completed 01/16/2019 24590 Stress Test Supervsn W/Out I/R Completed 01/16/2019 13776 Treadmill Interp/Report Only Completed 01/16/2019 22453 ECHO Transthorasic Realtime 2D W Doppler & Color Flow Completed Hosp 01/16/2019 72235 EKG, Interpretation Only Completed 01/09/2019 88326 EKG Tracing & Interpretation Completed 01/02/2019 34938 Cardioversion Completed 12/10/2018 89120 Carpal Tunnel Release Completed 12/10/2018 55231 Carpal Tunnel Release Completed 11/19/2018 27557 EKG Tracing & Interpretation Completed 11/03/2018 28046 EKG, Interpretation Only Completed 11/03/2018 13998 Cardioversion Completed 11/02/2018 08293 EKG, Interpretation Only Completed 09/25/201852220 Inject/Drain Joint/Bursa Major W/O US Completed 09/25/2018 Injection, Carpal Tunnel Completed 02/21/2018 98216991 Colonoscopy Completed 04/19/2009 20664166 Colonoscopy Completed Medical Devices Description No Information Available Encounters Type Date Location Provider Dx Diagnosis Office Visit 02/03/2019 [facility] Talib Medrano I48.91 Unspecified atrial 2:17p Of Nathaniel Cisneros M.D. fibrillation Z95.0 Presence of cardiac pacemaker Office Visit 02/03/2019 [facility] Rubina I48.91 Unspecified atrial 8:36a Assoc,lo Ireland M.D. fibrillation Hospitalists I12.9 Hypertensive chronic kidney disease w stg 1-4/unsp chr kdny N18.3 Chronic kidney disease, stage 3 (moderate) I44.7 Left bundle-branch block, unspecified Office Visit 02/02/2019 [facility] Nicole Bowlinghn, I48.91 Unspecified 8:35a lo Murcia M.D. atrial Hospitalists fibrillation N18.3 Chronic kidney disease, stage 3 (moderate) I12.9 Hypertensive chronic kidney disease w stg 1-4/unsp chr kdny I44.7 Left bundle-branch block, unspecified Office Visit 02/01/2019 [facility] Nicole Charlie, I48.91 Unspecified 8:34a lo Murcia M.D. atrial Hospitalists fibrillation N18.3 Chronic kidney disease, stage 3 (moderate) I12.9 Hypertensive chronic kidney disease w stg 1-4/unsp chr kdny E03.9 Hypothyroidism, unspecified Office Visit 02/01/2019 11:42a [facility] Jesus Alberto S. I48.0 Paroxysmal atrial Of [facility] [employer] Sherman, DO fibrillation FACC I48.92 Unspecified atrial flutter Office Visit 01/31/2019 8:34a [facility] Patricia June, R42 Dizziness and Assoc,lo N.PCasey giddiness Hospitalists I48.91 Unspecified atrial fibrillation I10 Essential (primary) hypertension E78.5 Hyperlipidemia, unspecified Office Visit 01/31/2019 1:17p [facility] Jesus Alberto S. I48.92 Unspecified Of [employer] Sherman, DO atrial flutter FACC I44.7 Left bundle-branch block, unspecified I48.0 Paroxysmal atrial fibrillation I13.0 Hyp hrt & chr kdny dis w hrt fail and stg 1-4/unsp chr kdny I50.30 Unspecified diastolic (congestive) heart failure N18.9 Chronic kidney disease, unspecified D63.1 Anemia in chronic kidney disease Office Visit 01/27/2019 [facility] Sera I48.91 Unspecified 9:41a Assoc,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, MADY atrial Hospitalists fibrillation E87.6 Hypokalemia I12.9 Hypertensive chronic kidney disease w stg 1-4/unsp chr kdny N18.9 Chronic kidney disease, unspecified E03.9 Hypothyroidism, unspecified Office Visit 01/26/2019 11:45a [facility] Talib Medrano I48.91 Unspecified atrial Of Nathaniel Sandoval Cisneros fibrillation I49.5 Sick sinus syndrome Z79.01 longterm (current) use of anticoagulants Office Visit 01/26/2019 9:40a [facility] Sera E87.6 Hypokalemia Assoc,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 NP Hospitalists I12.9 Hypertensive chronic kidney disease w stg 1-4/unsp chr kdny N18.3 Chronic kidney disease, stage 3 (moderate) Office Visit 01/25/2019 9:39a [facility] Nicole Guerra, I13.0 Hyp hrt & chr Assoc,lo Nick kdny dis w hrt Hospitalists fail and stg 1-4/unsp chr kdny I50.30 Unspecified diastolic (congestive) heart failure N18.3 Chronic kidney disease, stage 3 (moderate) I48.91 Unspecified atrial fibrillation Office Visit 01/19/2019 11:40a [facility] Jesus Alberto [place] I48.0 Paroxysmal atrial Of Nathaniel Sherman, DO fibrillation FACC I48.92 Unspecified atrial flutter I13.0 Hyp hrt & chr kdny dis w hrt fail and stg 1-4/unsp chr kdny N18.9 Chronic kidney disease, unspecified I50.30 Unspecified diastolic (congestive) heart failure Office Visit 01/18/2019 12:19p [facility] Harvey Saldana I48.0 Paroxysmal atrial Sandoval Richards fibrillation I49.5 Sick sinus syndrome I10 Essential (primary) hypertension I25.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 unspecified I25.10 Athscl heart disease of [place] coronary artery w/o ang pctrs I48.0 Paroxysmal atrial fibrillation M54.9 Dorsalgia, unspecified I49.5 Sick sinus syndrome I10 Essential (primary) hypertension N18.9 Chronic kidney disease, unspecified Office Visit 01/16/2019 11:43a [facility] Harvey Saldana R07.9 Chest pain, Sandoval Richards unspecified I25.10 Athscl heart disease of [place] coronary artery w/o ang pctrs I10 Essential (primary) hypertension I48.0 Paroxysmal atrial fibrillation I49.5 Sick sinus syndrome E78.5 Hyperlipidemia, unspecified Office Visit 01/09/2019 8:45a [facility] Talib Medrano I44.7 Left bundle-branch Of Nathaniel Cisneros M.D. block, unspecified I48.0 Paroxysmal atrial fibrillation I25.10 Athscl heart disease of [place] coronary artery w/o ang pctrs Office Visit 01/02/2019 11:03a [facility] Jesus Alberto [place] I48.92 Unspecified Of [facility] Sherman, DO atrial flutter FACC I44.7 Left bundle-branch block, unspecified I48.0 Paroxysmal atrial fibrillation I13.0 Hyp hrt & chr kdny dis w hrt fail and stg 1-4/unsp chr kdny D63.1 Anemia in chronic kidney disease I50.9 Heart failure, unspecified N18.9 Chronic kidney disease, unspecified I25.10 Athscl heart disease of [place] coronary artery w/o ang pctrs Z98.61 Coronary angioplasty status Z79.01 longterm (current) use of anticoagulants Office Visit 11/27/2018 1:00p [facility] Bob Reyes I12.9 Hypertensive MD Celia chronic kidney disease w stg 1-4/unsp chr kdny N18.4 Chronic kidney disease, stage 4 (severe) N17.9 Acute kidney failure, unspecified I10 Essential (primary) hypertension I48.0 Paroxysmal atrial fibrillation Office Visit 11/25/2018 10:15a [facility] Aaron F G56.01 Carpal tunnel at [place] MD Alex syndrome, right upper limb M19.011 Primary osteoarthritis, right shoulder S46.011A Strain of musc/tend the rotator cuff of right shoulder, init Office Visit 11/19/2018 10:45a [facility] Talib Medrano I48.0 Paroxysmal atrial Of Nathaniel Cisneros M.D. 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 Office Visit 11/13/2018 10:00a [facility] Bob Reyes N18.4 Chronic kidney MD Celia disease, stage 4 (severe) I12.9 Hypertensive chronic kidney disease w stg 1-4/unsp chr kdny R60.0 Localized edema I48.0 Paroxysmal atrial fibrillation I50.33 Acute on chronic diastolic (congestive) heart failure D64.9 Anemia, unspecified Office Visit 11/03/2018 [facility] Kerline I48.91 Unspecified atrial 9:06a Assoc,lo Garza MD fibrillation Hospitalists M54.9 Dorsalgia, unspecified Office Visit 11/02/2018 11:46a [facility] Harvey Saldana I48.0 Paroxysmal atrial MauserAzeemDCasey fibrillation I50.30 Unspecified diastolic (congestive) heart failure R00.0 Tachycardia, unspecified D64.9 Anemia, unspecified R07.89 Other chest pain Office Visit 11/02/2018 [facility] Nicole Guerra, I48.91 Unspecified 9:06a lo Murcia M.D. atrial Hospitalists fibrillation M54.9 Dorsalgia, unspecified N18.4 Chronic kidney disease, stage 4 (severe) Office Visit 09/25/2018 2:30p [facility] Aaron Gomez S46.011A Strain of Orthopedics at MD Alex musc/tend the [place] rotator cuff of right shoulder, init M19.011 Primary osteoarthritis, right shoulder G56.01 Carpal tunnel syndrome, right upper limb S72.002D Fx unsp part of nk of l femr, subs for clos fx w routn heal Assessments Date Code Description Provider 02/25/2019 Z95.0 Presence of cardiac pacemaker Talib Cisneros M.D. 02/25/2019 Z95.0 Presence of cardiac pacemaker Ica Pacer Schedule 02/25/2019 I49.5 Sick sinus syndrome Ica Pacer Schedule 02/25/2019 I48.0 Paroxysmal atrial fibrillation Ica Pacer Schedule 02/25/2019 I48.92 Unspecified atrial flutter Ica Pacer Schedule 02/11/2019 Z95.0 Presence of cardiac pacemaker Talib Cisneros M.D. 02/11/2019 I49.5 Sick sinus syndrome Talib Cisneros M.D. 02/11/2019 I48.0 Paroxysmal atrial fibrillation Talib Cisneros M.D. 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 02/03/2019 I48.91 Unspecified atrial fibrillation Talib Cisneros M.D. 02/03/2019 I12.9 Hypertensive chronic kidney disease Rubina Ireland M.D. with stage 1 through stage 4 chronic kidney disease, or unspecified chronic kidney disease 02/03/2019 Z95.0 Presence of cardiac pacemaker Talib Cisneros M.D. 02/03/2019 N18.3 Chronic kidney disease, stage 3 Rubina Ireland M.D. (moderate) 02/03/2019 I44.7 Left bundle-branch block, unspecified Rubina Ireland M.D. 02/02/2019 I48.91 Unspecified atrial fibrillation Nicole Guerra M.D. 02/02/2019 I49.5 Sick sinus syndrome Talib Cisneros M.D. 02/02/2019 N18.3 Chronic kidney disease, stage 3 Nicole Guerra M.D. (moderate) 02/02/2019 I12.9 Hypertensive chronic kidney disease Nicole Guerra M.D. with stage 1 through stage 4 chronic kidney disease, or unspecified chronic kidney disease 02/02/2019 I44.7 Left bundle-branch block, unspecified Nicole Guerra M.D. 02/01/2019 I48.91 Unspecified atrial fibrillation Nicole Guerra M.D. 02/01/2019 I48.0 Paroxysmal atrial fibrillation Jesus Alberto Sherman DO [facility] 02/01/2019 N18.3 Chronic kidney disease, stage 3 Nicole Guerra M.D. (moderate) 02/01/2019 I48.92 Unspecified atrial flutter Jesus Alberto Sherman DO [facility] 02/01/2019 I12.9 Hypertensive chronic kidney disease Nicole Guerra M.D. with stage 1 through stage 4 chronic kidney disease, or unspecified chronic kidney disease 02/01/2019 E03.9 Hypothyroidism, unspecified Nicole Guerra M.D. 01/31/2019 I47.2 Ventricular tachycardia Jesus Alberto Karina Sherman DO [facility] 01/31/2019 R42 Dizziness and giddiness Patricia June, N.P. 01/31/2019 I48.92 Unspecified atrial flutter Jesus Alberto MarianaCasey Sherman, DO [facility] 01/31/2019 I48.91 Unspecified atrial fibrillation Patricia June, N.P. 01/31/2019 I44.7 Left bundle-branch block, unspecified Jesus Alberto MarianaCasey Sherman, [facility] 01/31/2019 I10 Essential (primary) hypertension Patricia June, N.P. 01/31/2019 I48.0 Paroxysmal atrial fibrillation Jesus Alberto MarianaCasey Sherman [facility] 01/31/2019 E78.5 Hyperlipidemia, unspecified Patricia June, N.P. 01/31/2019 I13.0 Hypertensive heart and chronic kidney Jesus Alberto Sherman [facility] disease with heart failure and stage 1 through stage 4 chronic kidney disease, or unspecified chronic kidney disease 01/31/2019 I50.30 Unspecified diastolic (congestive) Jesus Alberto Sherman [facility] heart failure 01/31/2019 N18.9 Chronic kidney disease, unspecified Jesus Alberto MarianaCasey Sherman, [facility] 01/31/2019 D63.1 Anemia in chronic kidney disease Jesus Alberto MarianaCasey Sherman [facility] 01/27/2019 R94.31 Abnormal electrocardiogram [ECG] Cash Lees M.D. [EKG] 01/27/2019 I48.91 Unspecified atrial fibrillation Sera Constantino NP 01/27/2019 E87.6 Hypokalemia Sera Constantino NP 01/27/2019 I12.9 Hypertensive chronic kidney disease Sera Constantino NP with stage 1 through stage 4 chronic kidney disease, or unspecified chronic kidney disease 01/27/2019 N18.9 Chronic kidney disease, unspecified Sera Constantino NP 01/27/2019 E03.9 Hypothyroidism, unspecified Sera Constantino NP 01/26/2019 R94.31 Abnormal electrocardiogram [ECG] Cash Lees M.D. [EKG] 01/26/2019 I48.91 Unspecified atrial fibrillation Talib Cisneros M.D. 01/26/2019 I49.5 Sick sinus syndrome Talib Cisneros M.D. 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 01/25/2019 I13.0 Hypertensive heart and chronic kidney [...] Paroxysmal atrial fibrillation Jesus Alberto Sherman DO [facility] 01/19/2019 I48.92 Unspecified atrial flutter Jesus Alberto Sherman DO [facility] 01/19/2019 I13.0 Hypertensive heart and chronic kidney Jesus Alberto Sherman DO [facility] disease with heart failure and stage 1 through stage 4 chronic kidney disease, or unspecified chronic kidney disease 01/19/2019 N18.9 Chronic kidney disease, unspecified Jesus Alberto Sherman DO [facility] 01/19/2019 I50.30 Unspecified diastolic (congestive) Jesus Alberto Sherman, [facility] heart failure 01/18/2019 I48.0 Paroxysmal atrial fibrillation Harvey Richards M.D. 01/18/2019 I49.5 Sick sinus syndrome Harvey Richards M.D. 01/18/2019 I10 Essential (primary) hypertension Harvey Richards M.D. 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 [place] coronary artery with unspecified angina pectoris 01/18/2019 D64.9 Anemia, unspecified Harvey Richards M.D. 01/17/2019 R94.31 Abnormal electrocardiogram [ECG] Harvey Richards M.D. [EKG] 01/17/2019 R07.9 Chest pain, unspecified Harvey Richards M.D. 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 01/17/2019 M54.9 Dorsalgia, troy Richards M.D. 01/17/2019 I49.5 Sick sinus syndrome Harvey Richards M.D. 01/17/2019 I10 Essential (primary) hypertension Harvey Richards M.D. 01/17/2019 N18.9 Chronic kidney disease, isidroified Harvey Richards M.D. 01/16/2019 R94.31 Abnormal electrocardiogram [ECG] Conchita Thompson M.D. [EKG] 01/16/2019 R07.9 Chest pain, unspecglen Richards M.D. 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 01/16/2019 I48.0 Paroxysmal atrial fibrillation Harvey Richards M.D. 01/16/2019 I49.5 Sick sinus syndrome Harvey Richards M.D. 01/16/2019 E78.5 Hyperlipidemia, unspecified Harvey Richards M.D. 01/09/2019 I44.7 Left bundle-branch block, unspecified Talib Cisneros M.D. 01/09/2019 I48.0 Paroxysmal atrial fibrillation Talib Cisneros M.D. 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 01/02/2019 I48.92 Unspecified atrial flutter Jesus Alberto Sherman DO [facility] 01/02/2019 I44.7 Left bundle-branch block, unspecified Jesus Alberto Sherman, DO [facility] 01/02/2019 I48.0 Paroxysmal atrial fibrillation Jesus Alberto Sherman, DO [facility] 01/02/2019 I13.0 Hypertensive heart and chronic kidney Jesus Alberto Sherman DO [facility] disease with heart failure and stage 1 through stage 4 chronic kidney disease, or unspecified chronic kidney disease 01/02/2019 D63.1 Anemia in chronic kidney disease Jesus Alberto Sherman DO [facility] 01/02/2019 I50.9 Heart failure, unspecified Jesus Alberto SCasey Sherman, DO [facility] 01/02/2019 N18.9 Chronic kidney disease, unspecified Jesus Alberto SCasey Sherman, DO [facility] 01/02/2019 I25.10 Atherosclerotic heart disease of Jesus Alberto Sherman, DO [facility] [place] coronary artery without angina pectoris 01/02/2019 Z98.61 Coronary angioplasty status Jesus Alberto Sherman DO [facility] 01/02/2019 Z79.01 longterm (current) use of Jesus Alberto S. Lane, DO [facility] anticoagulants 12/25/2018 G56.01 Carpal tunnel syndrome, right [...] Atherosclerotic heart disease of Talib Cisneros M.D. [place] coronary artery with 11/19/2018 Z95.2 Presence of [...] R94.31 Abnormal electrocardiogram [ECG] Jesus Alberto Sherman [facility] [EKG] 11/03/2018 I48.91 Unspecified atrial fibrillation Talib [...] Aaron Johnson MD of left femur, subseque Plan of Treatment Future Appointment(s):04/17/2019 10:30 am - [facility] Pacer Schedule at [facility]04/17/2019 11:15 am - Talib Cisneros M.D. at [facility]07/10/2019 9:45 am - Talib Cisneros M.D. at [facility]02/11/2019 - Talib Cisneros M.D.Z95.0 Presence of cardiac pacemakerNew Orders:Interrogation Pacemaker, Ordered: 02/11/19Referral:Dakota Streeter MD, Cardiac ElectrophyslgyFollow up:2 rrherrP79.5 Sick sinus anspjstuB81.0 Paroxysmal atrial khfsbwoehjnwC38.10 Atherosclerotic heart disease of [place] coronary artery without angina ihsqbtrqS09.3 History of porcine aortic valve replacement Functional Status Description No Information Available Mental Status Description No Information Available Referrals Refer to Dr Reason for Referral Status Appt Date Dakota Streeter MD Sent [address] [place] [address] [phone]
[2019-03-29 14:43] LABS: ABS Basophils 0.1 10^3/ul (0-0.2); ABS Lymphocytes 0.6 10^3/ul (1.0-4.8); ABS Monocytes 0.6 10^3/ul (0-0.8); ABS Neutrophils 4.2 10^3/ul (1.5-7.7); Eosinophil % 0.7 %; Hematocrit 32 % (35-47); Hemoglobin 10.8 g/dL (12.0-16.0); Lymphocyte % 11.3 %; Mean Corpuscular HGB Conc 34 g/dL (31-36); Mean Corpuscular Hemoglobin 34 pg (27-31); Mean Corpuscular Volume 101 fL (80-97); Mean Platelet Volume 7.5 fL (7.4-10.4); Nucleated Red Blood Cells % 0.1; Platelet Count 161 10^3/uL (150-450); Red Blood Count 3.15 10^6 /uL (3.70-4.87); Red Cell Distribution Width 15 % (10-15); White Blood Count 5.5 10^3/uL (3.5-10.8)
[2019-03-29 15:18] LABS: Albumin 3.6 g/dL (3.2-5.2); Albumin/Globulin Ratio 1.6 (1-3); BUN/Creatinine Ratio 14.4 (8-20); Calcium 8.8 mg/dL (8.6-10.3); EGFR African American 20.1 (>60); EGFR Non-African American 16.6 (>60); Globulin 2.3 g/dL (2-4); Potassium 4.5 mmol/L (3.5-5.0); Total Bilirubin 0.7 mg/dL (0.2-1.0); Total Protein 5.9 g/dL (6.4-8.9)
[2019-03-29 15:29] LABS: Troponin I 0.04 ng/mL (<0.03)
[2019-03-29] MEDS ORDERED: Lidocaine 2% VISCOUS* 15 ML UDC PO ONE (15:36)
[2019-03-29 16:18] VITALS: BP 110/74
== END 2019-03-29 16:16 | disposition home or self-care (01) ==
LOC: ED 13:43
DX: T18.128A Food in esophagus causing other injury, initial encounter (principal); N17.9 Acute kidney failure, unspecified; E87.1 Hypo-osmolality and hyponatremia; X58.XXXA Exposure to other specified factors, initial encounter; Y92.9 Unspecified place or not applicable; E07.9 Disorder of thyroid, unspecified; D64.9 Anemia, unspecified; I48.91 Unspecified atrial fibrillation; I11.0 Hypertensive heart disease with heart failure; I50.9 Heart failure, unspecified; I25.10 Atherosclerotic heart disease of native coronary artery without angina pectoris; I25.2 Old myocardial infarction; J44.9 Chronic obstructive pulmonary disease, unspecified; Z95.2 Presence of prosthetic heart valve; Z95.5 Presence of coronary angioplasty implant and graft; Z95.0 Presence of cardiac pacemaker; Z96.642 Presence of left artificial hip joint; Z79.899 Other long term (current) drug therapy; J90 Pleural effusion, not elsewhere classified
CPT/HCPCS: 36415; 71046; 80053; 83690; 84484; 85025; 93005; 99282

== ENCOUNTER 2019-04-02 14:59 | Inpatient (IN) | payer MEDICARE ==
--- NOTE | 2019-04-02 15:38 | ED ---
HPI Cardiac - HPI Summary HPI Summary: The patient is an 88 y/o female arriving by ambulance to [facility] accompanied by daughter with a chief complaint of gradually worsening weakness since 2019. She reports that she has been experiencing difficulty ambulating secondary to increased edema in the lower extremities. She states that she was able to walk better yesterday, but today she was unable to get to her doctors appointment for atrial fibrillation, but she felt too weak. She notes that she has been in atrial fibrillation since the pacemaker has been placed. She notes shortness of breath without any chest pain. She is not currently in any pain. PMHx: HTN, HLD, CAD, CHF, aortic valve replacement, atrial fibrillation, aortic stenosis, pacemaker, COPD, anemia, thyroid disease. Nonsmoker, no EtOH, no substance use. Medications reviewed. Allergies noted. - History of Current Complaint Chief Complaint: EDWeakness Stated Complaint: FEELING WEEK PER EMS Time Seen by Provider: 04/02/19 15:20 Hx Obtained From: Patient Onset/Duration: Started Days Ago - two, Still Present Timing: Constant Initial Severity: Mild Current Severity: Moderate Pain Intensity: 0 Pain Scale Used: 0-10 Numeric Chest Pain Radiates: No Aggravating Factor(s): Other: - ambulating Alleviating Factor(s): Nothing Associated Signs and Symptoms: Positive: Weakness, Shortness of Breath, Edema - bilateral lower extremities. Negative: Chest Pain Related History: Similar Episode/Dx as: - CHF, afib, pacemaker - Additional Pertinent History Primary Care Physician: BELKIS - Allergy/Home Medications Allergies/Adverse Reactions: Allergies Allergy/AdvReac Type Severity Reaction Status Date / Time No Known Allergies Allergy Verified 04/02/19 15:21 PMH/Surg Hx/FS Hx/Imm Hx Endocrine/Hematology History: Reports: Hx Anticoagulant Therapy, Hx Blood Transfusions, Hx Thyroid Disease, Hx Anemia - on iron Denies: Hx Diabetes Cardiovascular History: Reports: Hx Angina, Hx Atrial Fibrillation, Hx Congestive Heart Failure, Hx Coronary Artery Disease, Hx Hypertension, Hx Myocardial Infarction, Hx Pacemaker/ICD - pacemaker implant 02/02/19, Hx Peripheral Vascular Disease, Hx Syncope, Hx Valvular Heart Disease Denies: Hx Hypercholesterolemia Comment Only: Other Cardiovascular Problems/Disorders - stents, A-fib Respiratory History: Reports: Hx Chronic Bronchitis, Hx Chronic Obstructive Pulmonary Disease (COPD) Denies: Hx Asthma GI History: Reports: Hx Irritable Bowel - w/ constipation, Other GI Disorders - constipation Denies: Hx Gastrointestinal Bleed, Hx Hiatal Hernia, Hx Ulcer History: Denies: Hx Chronic Renal Failure, Hx Kidney Stones, Hx Renal Disease, Other Problems/Disorders Musculoskeletal History: Reports: Hx Arthritis - osteoarhtritis, Hx Back Problems, Hx Orthopedic Injury, Other Musculoskeletal History - HAMMER TOE LEFT SECOND TOE-repaired, carpel tunnel surgery Denies: Hx Osteoporosis Sensory History: Reports: Hx Cataracts - LENS IMPLANTS 2011, Hx Contacts or Glasses, Hx Vision Problem, Other Sensory Impairments - dry eye Denies: Hx Hearing Aid Opthamlomology History: Reports: Hx Cataracts - LENS IMPLANTS 2011, Hx Contacts or Glasses, Hx Vision Problem, Other Sensory Impairments - dry eye Neurological History: Denies: Hx Dementia, Hx Seizures, Hx Transient Ischemic Attacks (TIA) Psychiatric History: Denies: Hx Anxiety, Hx Depression, Hx Panic Disorder - Cancer History Hx Chemotherapy: No Hx Radiation Therapy: No - Surgical History Surgical History: Yes Surgery Procedure, Year, and Place: AORTIC valve replacement, 2012,. , [facility], [facility]. [place] [facility] [place] [facility] LEFT FOOT. cardiac catherization with cardiac stent to RCA October 2016. cardioversions 2014,2015, 08/2016, 05/30/18. Carpel tunnel surgery 12/2018. left hip hemiarthroplasty surgery 04/2018. left hip revision 06/2018 Hx Anesthesia Reactions: No - Immunization History Date of Influenza Vaccine: 12/2018 Immunizations Up to Date: Yes Infectious Disease History: No Infectious Disease History: Denies: Hx Clostridium Difficile, Hx Hepatitis, Hx Human Immunodeficiency Virus (HIV), Hx of Known/Suspected MRSA, Hx Shingles, Hx Tuberculosis, Hx Known/ Suspected VRE, Hx Known/Suspected VRSA, History Other Infectious Disease, Traveled Outside the [place] in Last 30 Days - Family History Known Family History: Positive: Cardiac Disease, Hypertension - Social History Alcohol Use: None Hx Substance Use: No Substance Use Type: Reports: None Hx Tobacco Use: No Smoking Status (MU): Never Smoked Tobacco Have You Smoked in the Last Year: No Review of Systems Negative: Chest Pain Positive: Shortness Of Breath Positive: Edema - bilateral lower extremities Positive: Weakness - generalized All Other Systems Reviewed And Are Negative: Yes Physical Exam - Summary Physical Exam Summary: Appearance: The patient is well-nourished in no acute distress and in no acute pain. Skin: The skin is warm and dry, and skin color reflects adequate perfusion. HEENT: The head is normocephalic and atraumatic. The pupils are equal and reactive. The conjunctivae are clear and without drainage. Nares are patent and without drainage. Mouth reveals moist mucous membranes, and the throat is without erythema and exudate. The external ears are intact. The ear canals are patent and without drainage. The tympanic membranes are intact. Neck: The neck is supple with full range of motion and non-tender. There are no carotid bruits. There is no neck vein distension. Respiratory: Chest is non-tender. Lungs are clear to auscultation and breath sounds are symmetrical and equal. Cardiovascular: Heart is tachycardic. There is no murmur or rub auscultated. There is peripheral edema but pulses are symmetrical and equal. Abdomen: The abdomen is soft and non-tender. There are normal bowel sounds heard in all four quadrants and there is no organomegaly palpated. Musculoskeletal: There is no back tenderness noted. Extremities are non-tender with full range of motion. There is good capillary refill. There is peripheral edema. There is no calf tenderness elicited. Neurological: Patient is alert and oriented to person, place and time. The patient has symmetrical motor strength in all four extremities. Cranial nerves are grossly intact. Deep tendon reflexes are symmetrical and equal in all four extremities. Psychiatric: The patient has an appropriate affect and does not exhibit any anxiety or depression. Triage Information Reviewed: Yes Vital Signs On Initial Exam: Initial Vitals Temp Pulse Resp BP Pulse Ox 98.3 F 90 20 98/70 98 04/02/19 15:09 04/02/19 15:09 04/02/19 15:09 04/02/19 15:09 04/02/19 15:09 Vital Signs Reviewed: Yes Procedures - Sedation Patient Received Moderate/Deep Sedation with Procedure: No Diagnostics - Vital Signs Vital Signs Temp Pulse Resp BP Pulse Ox 04/02/19 15:10 93 98/70 98 04/02/19 15:09 98.3 F 90 20 98/70 98 - Laboratory Result Diagrams: 04/02/19 15:47 04/02/19 15:47 Lab Statement: Any lab studies that have been ordered have been reviewed, and results considered in the medical decision making process. - Radiology CXR Radiology Interpretation Completed By: Radiologist Summary of Radiographic Findings: Impression: Mild interval worsening of pulmonary vascular congestion and interstitial edema. ED physician has reviewed this report. - EKG 1547 Cardiac Rate: Other Rate - controlled at 97 BPM EKG Rhythm: Atrial Fibrillation Summary of EKG Findings: An EKG at 1547 reveals atrial fibrillation with controlled rate of 97 BPM, LBBB, no STEMI. ED physician has reviewed and interpreted this EKG. Re-Evaluation - Re-Evaluation First Eval Re-Evaluation Time: 18:20 Comment: We discussed results and plan for admission. Patient agreeable with plan. Disposition - Course Course Of Treatment: Ms. Sherwood was found to have worsening of her chronic renal failure and congestive heart failure. She is too weak to go home and take care of herself and I spoke with the hospitalist Dr. Gerard about admission. I spoke with Dr. Lees about her atrial fibrillation. - Diagnoses Provider Diagnoses: Renal failure, CHF (congestive heart failure) - Physician Notifications Discussed Care Of Patient With: Cash Lees - cardiology Time Discussed With Above Provider: 18:05 Instructed by Provider To: Other - I discussed the patients case with Dr. Lees, who recommends admission. I spoke with Dr. Solorzano from hospitalist services, and she accepts the patient for admission [[id number]]. - Critical Care Time Critical Care Time: 30-74 min Discharge ED - Sign-Out/Discharge Documenting (check all that apply): Patient Departure - Patient accepted for admission by Dr. Solorzano. - Discharge Plan Condition: Stable Disposition: ADMITTED TO [facility] - Billing Disposition and Condition Condition: STABLE Disposition: Admitted to [facility] - Attestation Statements Document Initiated by Marcos: Yes Documenting Scribe: Sury Plata Provider For Whom Marcos is Documenting (Include Credential): MD Bill Rodriguezibe Attestation: ISury scribed for Dr. Leeroy Eaton MD on 04/02/19 at 2032. Scribe Documentation Reviewed: Yes Provider Attestation: The documentation as recorded by the Sury harrington accurately reflects the service I personally performed and the decisions made by me, Dr. Leeroy Eaton MD Status of Scribe Document: Viewed
[2019-04-02 15:54] LABS: ABS Lymphocytes 0.5 10^3/ul (1.0-4.8); ABS Monocytes 0.8 10^3/ul (0-0.8); ABS Neutrophils 5.7 10^3/ul (1.5-7.7); Hematocrit 34 % (35-47); Hemoglobin 11.3 g/dL (12.0-16.0); Mean Corpuscular HGB Conc 34 g/dL (31-36); Mean Corpuscular Hemoglobin 34 pg (27-31); Mean Corpuscular Volume 102 fL (80-97); Mean Platelet Volume 7.5 fL (7.4-10.4); Nucleated Red Blood Cells % 0.5; Platelet Count 148 10^3/uL (150-450); Red Blood Count 3.29 10^6 /uL (3.70-4.87); Red Cell Distribution Width 16 % (10-15); White Blood Count 7.1 10^3/uL (3.5-10.8)
[2019-04-02 16:15] LABS: INR 3.6 (0.82-1.09)
[2019-04-02 16:16] LABS: ALT 123 U/L (7-52); AST 92 U/L (13-39); Albumin 3.7 g/dL (3.2-5.2); Albumin/Globulin Ratio 1.7 (1-3); Alkaline Phosphatase 70 U/L (34-104); Anion Gap 13 mmol/L (2-11); BUN/Creatinine Ratio 15.9 (8-20); Blood Urea Nitrogen 51 mg/dL (6-24); C Reactive Protein 9.83 mg/L (<8.01); CO2 Carbon Dioxide 23 mmol/L (22-32); Calcium 9.1 mg/dL (8.6-10.3); Chloride 94 mmol/L (101-111); EGFR African American 16.5 (>60); EGFR Non-African American 13.6 (>60); Globulin 2.2 g/dL (2-4); Glucose 121 mg/dL (70-100); Magnesium 2.2 mg/dL (1.9-2.7); Potassium 4.6 mmol/L (3.5-5.0); Sodium 130 mmol/L (135-145); Total Protein 5.9 g/dL (6.4-8.9)
[2019-04-02 16:31] LABS: TSH (Thyroid Stimulating Horm) 3.76 mcIU/mL (0.34-5.60)
[2019-04-02 16:34] LABS: Troponin I 0.03 ng/mL (<0.03)
[2019-04-02] MEDS ORDERED: Ondansetron INJ* 2 MG/ML VIAL IV PRN (18:50)
[2019-04-02] MEDS ORDERED: Nitroglycerin TAB 0.4 MG* 0.4 MG TAB SL PRN (18:55)
[2019-04-02 19:38] LABS: % Iron Saturation 29 % (15-55); Iron 101 ug/dL (50-212); Total Iron Binding Capacity 347 mcg/dL (250-450); Transferrin 248 mg/dL (203-362)
[2019-04-02 19:55] LABS: Ferritin 91.2 ng/mL (11-307)
[2019-04-02 20:21] LABS: Folate > 20.00 ng/mL (>3.99)
--- NOTE | 2019-04-02 20:58 | HP ---
CC: Dr. Susy Quevedo; Dr. Talib Cisneros; Dr. Cash Lees * ADMISSION HISTORY AND PHYSICAL: DATE OF ADMISSION: 04/02/19 PRIMARY CARE PROVIDER: Dr. Susy Quevedo. MY ATTENDING WHILE IN THE HOSPITAL: Dr. Rubina Solorzano.* (DICTATED BY KIRSTEN AGEE) OUTPATIENT UNDERWRITER SOLICITATION DIRECTOR: Dr. Talib Cisneros. CONSULTING UNDERWRITER SOLICITATION DIRECTOR: Dr. Cash Lees. CHIEF COMPLAINT: Weakness x4 days. HISTORY OF PRESENT ILLNESS: Ms. Sherwood is an 88-year-old female with past medical history significant for atrial fibrillation, it has been difficult to control status post pacemaker placement and plan for evaluation for AV lisa ablation as well as heart failure with preserved ejection fraction, chronic kidney disease, hypothyroidism, hypertension, anemia, coronary artery disease, and intermittent left bundle-branch block, who presents to the emergency department with 4 days of worsening weakness, lower extremity swelling and shortness of breath. The patient has chronic symptoms of heart failure which are disabling. She has previously been cardioverted numerous times for her atrial fibrillation, but the frequency of her atrial fibrillation which is not tolerated well became more and more frequent and then in February 2019, the patient had a pacemaker placed as a bridge to AV lisa ablation for definitive control of her atrial fibrillation. The patient has followup with [facility] , has been having significant shortness of breath and has been in atrial fibrillation since that time. The patient also came to the emergency department on 03/17/19 and was sent home due to a mild heart failure exacerbation with an increase in her Lasix with a plan to again follow up with Electrophysiology; that appointment was supposed to be today, but today the patient's weakness is so bad, she could not lift up her legs or get in the car. The patient feels short of breath at baseline at this point. The patient has been having diarrhea for 4 days, small volumes with no blood, though her stool is always dark given her iron supplementation. The patient has been having worsening orthopnea and sleeps on 2 pillows. The patient denies any recent changes to her diet. The patient has had no fevers or chills, no chest pain. The patient does have palpitations particularly when walking. In the emergency department, the patient was found to have severely elevated creatinine and elevated BNP and slightly elevated troponin. The patient was found to be in atrial fibrillation with a rate around 100, which has been her baseline for over a month now with periods of attempted tachy conversion by her pacemaker which are not successful. Due to concern for heart failure exacerbation, we were asked to evaluate the patient for admission to the hospital. PAST MEDICAL HISTORY: Atrial fibrillation, heart failure with preserved ejection fraction, chronic kidney disease, hypothyroidism, hypertension, anemia , intermittent left bundle-branch block, coronary artery disease status post stenting, COPD, hyperlipidemia, peripheral vascular disease, Zenker's diverticulum. PAST SURGICAL HISTORY: TAVR pacing in 2017, left hip surgery in 2019, carpal tunnel release. MEDICATIONS: 1. Amiodarone 400 mg p.o. daily. 2. Eliquis 2.5 mg p.o. b.i.d. 3. Aspirin 81 mg p.o. daily. 4. Lipitor 20 mg p.o. daily. 5. Vitamin B12 1000 mcg p.o. daily. 6. Colace 100 mg p.o. t.i.d. 7. Ferrous sulfate 325 mg p.o. daily. 8. Folic acid 1 mg p.o. daily. 9. Lasix 60 mg p.o. daily. 10. Synthroid 50 mcg p.o. daily. 11. Metoprolol tartrate 50 mg p.o. b.i.d. 12. Protonix 40 mg p.o. daily. 13. Calcium chloride 10 mEq p.o. daily. 14. Tylenol 650 mg p.o. q.4 hours as needed. 15. Nitroglycerin 0.4 mg p.o. supplemental q.5 minutes as needed. FAMILY HISTORY: The patient's mother with complications of hypertension. The patient's father of CVA at age 66. The patient has 3 brothers, who have of coronary artery disease in their 40s to 60s and 2 sisters who had a cardiac surgery. SOCIAL HISTORY: The patient never smoked, drank, or used illicit drugs. 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 She is and has 2 children. The patient's surrogate decision maker will be her daughters, Bisi or Gilberto. REVIEW OF SYSTEMS: The patient has been having difficulty swallowing associated with her Zenker's diverticulum. A 10-point review of systems was reviewed and is negative otherwise except as stated above in the HPI. PHYSICAL EXAMINATION GENERAL: The patient is an 88-year-old female, who appears stated age, sitting comfortably in bed, in no acute distress. VITAL SIGNS: At the time of evaluation, temperature 98.3, pulse rate 109, respiratory rate 20, oxygen saturation 97% on room air, blood pressure 100/75. HEENT: Head: Normocephalic, atraumatic. Sclerae anicteric. No conjunctival injection. Nasal mucosa moist. Oral mucosa moist. No pharyngeal erythema, discharge, or exudate. NECK: Supple. No lymphadenopathy. No carotid bruit auscultated. No JVD. Exam is limited by neck sickness. RESPIRATORY: Diminished throughout. No adventitious lung sounds. Good air exchange bilaterally. CARDIAC: Irregular rate and rhythm, tachycardic. No clicks, murmurs, gallops, or rubs. Pulses 2+ in the bilateral dorsalis pedis, posterior tibialis, and radial areas. 3+ bilateral lower extremities pitting edema noted, bilateral calf tenderness. No palpable cords. ABDOMEN: Soft, nontender, nondistended. Bowel sounds present and normoactive in all 4 quadrants. No hepatosplenomegaly. No abdominal bruits auscultated. No hepatojugular reflux. GENITOURINARY: No suprapubic or CVA tenderness. NEURO: Cranial nerves II through XII intact. No focal deficits. Alert and oriented x3. PSYCHIATRIC: Pleasant and cooperative. SKIN: Clean, dry, intact. No rashes. DIAGNOSTIC STUDIES/LAB DATA: White blood cell count 7.1, hemoglobin 11.3, MCV 102, RDW 16, platelet count 148. INR 3.6. Sodium 138, potassium 4.6, chloride 94, carbon dioxide 23, anion gap 13, BUN 51, creatinine 3.21, glucose 121, lactic acid 2.2, calcium 9.1, magnesium 2.2. Bilirubin 0.8, AST 92, ALT 123, alkaline phosphatase 70. Troponin-I 0.03. CRP 9.83. BNP greater than 1300. Protein 5.9, albumin 3.7, globulin 2.2. TSH is 3.76. Studies: Chest x-ray read as mild interval worsening of pulmonary vascular congestion and interstitial edema. Electrocardiogram shows atrial flutter, rate of 97, QTc of 716, but this is not likely accurate, left bundle-branch block, QRS time was 202 per machine calculation. Compared to previous exam, there were no significant changes. ASSESSMENT AND PLAN: Impression: Ms. Sherwood is an 88-year-old female with past medical history significant for heart failure with preserved ejection fraction and atrial fibrillation, chronic kidney disease and coronary artery disease, who presents to the emergency department with heart failure exacerbation worsening over the last 4 days, though with a progressive worsening over the last 2 months since her pacemaker implantation. The patient was admitted to the hospital for IV diuresis, a cardiology consult for further testing. 1. Acute on chronic heart failure, last known ejection fraction preserved. The patient has been having worsening heart failure over the last several months. The patient's BNP has gone from 354 on the day her pacemaker was inserted to 704 on 03/17/19 to greater than 1300. Much of this may be related to the patient's creatinine which has also been decreasing. The patient is on no nephrotoxic drugs and appears markedly hypervolemic, this is likely due to worsening heart failure. The patient's left bundle branch block also appears to have worsened over this time. Given these findings, we will repeat an echocardiogram to assess that the patient's ejection fraction is still preserved. It is possible that either tachycardia or pacing has decreased the patient's ejection fraction. The patient does appear to be paced intermittently at a fast rate in an attempt to abort her atrial flutter which is not effective. The patient appears to be intolerant of atrial flutter and this may be exacerbating her heart failure with preserved ejection fraction. The patient recently had her Lasix increased; however, it is unlikely the patient is absorbing Lasix very well given her severe edema likely affecting her bowel. The patient has laboratory studies consistent with congestive hepatopathy with elevated AST and ALT. The patient's diarrhea is also likely related to this. The patient will have her creatinine watched closely with diuresis. The patient was started on Lasix 40 mg twice daily. The patient's metoprolol will be converted to long acting formulation. If the patient was found to have a decreased ejection fraction, SCARLETT inhibitor and spironolactone as well as Entresto may be indicated. The patient has had a recent iron panel in 2019 which was normal, this would be repeated. The patient's folate and B12 were also normal in 2016, these will also be repeated. If the patient was found to be iron deficient at this point, IV iron supplementation may be indicated. Given the patient's QRS dimension, if the patient was found to have decreased ejection fraction, biventricular pacemaker may be indicated, this could be indicated through her ict business analyst. The patient will have her pacemaker interrogated. 2. Atrial fibrillation/flutter. The patient has been in persistent atrial fibrillation/flutter for the last 2 months. It is likely that this patient has previously been intolerant of this and likely this is contributing to her presentation. The patient will have her metoprolol continued at this time at the current doses, her blood pressures on the low side and she will need room for diuresis. The patient should follow up with her ict business analyst outpatient. The patient will be continued on amiodarone, though this does not appear to be effective and discontinuation may be indicated as she is on a high dose and this is not a benign medication. The patient is anticoagulated. The patient's INR is greater than 3. The patient's creatinine at this point definitely contraindicates the use of Eliquis. The patient will have her INR trended until it returns to the normal range. The patient will not be otherwise anticoagulated or bridged. 3. Acute on chronic kidney injury. The patient's creatinine is up to 3.21 from baseline of 1.8, this is likely related to hypervolemia. The patient will be aggressively diuresed and her creatinine will be watched closely. If the patient's creatinine worsens with diuresis, fluids may be indicated, though the patient is hypervolemic. If it is the case, consultation with finishing manager may be undertaken. 4. Hyponatremia. This is likely related to the patient's heart failure and is likely hypervolemic. 5. Hypertension. The patient is currently borderline hypotensive. Continue the patient's metoprolol. 6. Anemia. Investigation as above. 7. Chronic obstructive pulmonary disease. The patient is not currently in exacerbation. The patient is on no chronic treatments for this. 8. Coronary artery disease. Continue the patient's statin and aspirin. The patient is supratherapeutic on her Eliquis likely due to prior accumulation with her renal failure. 9. Lactic acidosis. The patient has an elevated lactic acid. The patient appears hypervolemic at this time and the patient will not be given fluids. This will be repeated in the morning. 10. DVT prophylaxis: The patient's INR is currently 3.6, this will be trended to normal. If the patient's creatinine has returned to the point where she could be restarting Eliquis that will be done at that time. If not, other anticoagulation for the patient's atrial fibrillation should be undertaken. 11. FEN: The patient will have a heart healthy diet without caffeine. Fluids are not indicated at this time. 12. Disposition: The patient is admitted inpatient to the hospital with estimated length of stay greater than 2 midnights. TIME SPENT: Approximately 60 minutes was spent on this admission, 30 of which was spent [id number] with the patient obtaining history and physical and discussing treatment plan. This plan has been discussed with my attending, Dr. Rubina Solorzano, she is in agreement. KIRSTEN AGEE [id number]/[facility] #: [id number] DONNA
[2019-04-02] MEDS ORDERED: Apixaban* 2.5 MG TAB PO SCH (21:00)
[2019-04-02] MEDS ORDERED: Metoprolol Tartrate TAB* 50 mg PO SCH (21:00)
[2019-04-02] MEDS: Metoprolol Succinate XL TAB* 50 MG PO SCH (21:16)
[2019-04-03] MEDS: Acetaminophen TAB* 325 MG PO PRN (01:03)
[2019-04-03 04:11] LABS: Urine Appearance Clear; Urine Bilirubin Negative (Negative); Urine Blood Negative (Negative); Urine Color Yellow; Urine Glucose Negative (Negative); Urine Ketones Negative (Negative); Urine Nitrite Negative (Negative); Urine Protein Negative (Negative); Urine Specific Gravity 1.011 (1.010-1.030); Urine Urobilinogen Negative (Negative)
[2019-04-03 04:22] LABS: Urine Bacteria Absent (Absent); Urine Red Blood Cell Absent (Absent); Urine Squamous Epithelial Cell Present (Absent); Urine White Blood Cell 3+(>20/hpf) (Absent)
[2019-04-03] MEDS: Levothyroxine TAB* 50 MCG TAB PO SCH (05:10)
[2019-04-03] MEDS: Metoprolol Succinate XL TAB* 50 MG PO SCH (05:10)
[2019-04-03 05:16] LABS: ABS Lymphocytes 0.8 10^3/ul (1.0-4.8); Eosinophil % 0.2 %; Hematocrit 32 % (35-47); Hemoglobin 10.8 g/dL (12.0-16.0); Lymphocyte % 11.3 %; Mean Corpuscular HGB Conc 34 g/dL (31-36); Mean Corpuscular Hemoglobin 34 pg (27-31); Mean Corpuscular Volume 102 fL (80-97); Mean Platelet Volume 7.8 fL (7.4-10.4); Nucleated Red Blood Cells % 0.2; Platelet Count 131 10^3/uL (150-450); Red Blood Count 3.15 10^6 /uL (3.70-4.87); Red Cell Distribution Width 16 % (10-15); White Blood Count 6.8 10^3/uL (3.5-10.8)
[2019-04-03 05:27] LABS: BUN/Creatinine Ratio 15.7 (8-20); Calcium 8.7 mg/dL (8.6-10.3); EGFR African American 15.2 (>60); EGFR Non-African American 12.6 (>60); Magnesium 2.1 mg/dL (1.9-2.7); Potassium 4.3 mmol/L (3.5-5.0)
[2019-04-03] MEDS ORDERED: Furosemide IV* 10 MG/ML VIAL (40 MG) IV SLOW PU SCH ×2 (08:00→13:30)
[2019-04-03] MEDS ORDERED: Metoprolol Succinate XL TAB* 25 MG PO SCH (09:00)
[2019-04-03] MEDS ORDERED: Amiodarone TAB* 400 MG PO SCH (09:00)
[2019-04-03] MEDS ORDERED: Perflutren Lipid Microsphere* 3 ML VIAL ONE (09:43)
[2019-04-03] MEDS: Cyanocobalamin TAB* 500 MCG PO SCH (10:41)
[2019-04-03] MEDS: Folic Acid TAB* 1 MG PO SCH (10:41)
[2019-04-03] MEDS: Pantoprazole TAB * 40 MG TAB PO SCH (10:41)
[2019-04-03] MEDS: Atorvastatin* 20 MG TAB PO SCH (10:41)
[2019-04-03] MEDS: Potassium Chlor TAB* 10 MEQ TAB.ER PO SCH (10:41)
[2019-04-03] MEDS: Aspirin EC TAB* 81 MG TAB.EC PO SCH (10:41)
[2019-04-03] MEDS: Ferrous Sulfate TAB* 325 MG PO SCH (10:41)
--- NOTE | 2019-04-03 10:57 | ECHO ---
*[facility]* [place] [address] Fax #: [phone] Transthoracic Echocardiogram Patient: Veronica Sherwood : 1930 Study Date: 04/03/2019 Age: 88 Gender: F HR: 99 bpm Height: 66 in /167.6 cm BSA: 1.97 m^2 Weight: 191.6 lb /87.1 kg BMI: 31 kg/m^2 *Cytotechnologist Supervisor: * Brittni Lafleur [facility] *Referring Physician: * Mick Klein *Reading Physician: * Cash Lees MD Indications: Congestive Heart Failure. History: Atrial fibrillation. Coronary artery disease. Congestive heart failure. Risk factors: Hypertension. Dyslipidemia. Labs, prior tests, procedures, and surgery: Catheterization. There was a stenosis which was treated with a stent. Permanent pacemaker system implantation. Conclusions Summary: - Left ventricle: Systolic function is moderately to severely reduced. The estimated ejection fraction is 20-25%. Diffuse hypokinesis with regional variations. Basal segments are best preserved, - Left atrium: The atrium is severely dilated. - Right atrium: The atrium is severely dilated. Pacer wire noted in right atrium. - Mitral valve: The findings are consistent with mild stenosis. There is mild to moderate regurgitation. The valve area is 0.9 cm^2. The valve area by pressure half-time is 2.6 cm^2. - Aortic valve: There is a bioprosthetic valve. Functioning normally. The mean systolic gradient is 5.0 mm Hg. The LVOT to aortic valve VTI ratio is 0.3. The valve area by the velocity-time integral method is 0.80 cm^2. The valve area by the peak velocity method is 1.00 cm^2. - Tricuspid valve: There is moderate-severe regurgitation. - C/t 01/16/2019, left ventricle ejection fraction was 60-65% then. Tricuspid regurgitation is more now from mild-moderate then. Now there is no PHTN instead of PASP 54 mmHg then. Study data: Transthoracic echocardiogram. Procedure: Transthoracic echocardiography was performed. Image quality was adequate. Intravenous Definity , 3 mlswas administered. Complete 2D, spectral Doppler, and color flow Doppler. Location: Bedside. Patient status: Inpatient. Patient room number: 432. Rhythm: Atrial fibrillation. Findings Left ventricle: The cavity size is at the upper limits of normal. Wall thickness is mildly increased. Systolic function is moderately to severely reduced. The estimated ejection fraction is 20-25%. Diffuse hypokinesis with regional variations. Basal segments are best preserved, Right ventricle: The cavity size is normal. Pacer wire noted in the right ventricle. Systolic function is low normal. Left atrium: The atrium is severely dilated. Right atrium: The atrium is severely dilated. Pacer wire noted in right atrium. Mitral valve: The Mitral valve annulus appears calcified. The leaflets are mildly calcified. The findings are consistent with mild stenosis. There is mild to moderate regurgitation. Aortic valve: There is a bioprosthetic valve. The leaflets are normal thickness. Mobility is not restricted. There is no significant regurgitation. Tricuspid valve: The leaflets are normal thickness. There is no evidence of stenosis. There is moderate-severe regurgitation. Pulmonic valve: The leaflets are normal thickness. There is no evidence of stenosis. There is trace regurgitation. Aorta: Aortic root: The aortic root is appears normal. Aortic arch: The aortic arch is poorly visualized. Pericardium: There is no significant pericardial effusion. There is a pleural effusion. Pulmonary arteries: Systolic pressure is within the normal range. Systemic veins: Inferior vena cava: The vessel is dilated. There is (< 50%) respiratory change in the IVC dimension. Measurements Left ventricle Value Ref Aortic valve continued Value Ref GILBERT, LAX 5.1 cm 3.8 - 5.2 VTI, S 23.0 cm ----- ESD, LAX (H) 4.4 cm 2.2 - 3.5 Mean grad, S 5.0 mm Hg ----- FS, LAX (L) 13 % 27 - 45 Peak grad, S 7.0 mm Hg ----- PW, ED, LAX (H) 1.0 cm 0.6 - 0.9 LVOT/AV, VTI ratio 0.3 ----- E', lat linda, TDI (L) 3.2 cm/sec >=10.0 SANDY, VTI 0.80 cm^2 ----- E/e', lat linda, 34 SANDY, Vmax 1.00 cm^2 --- -- TDI Mitral valve Value Ref LVOT Value Ref Peak E 1.1 m/sec ----- Diam, S 1.80 cm Decel time 91 ms ----- Area 2.5 cm^2 PHT 74 ms ----- Peak brayan, S 0.5 m/sec Mean grad, D 2.0 mm Hg ----- VTI, S 7.0 cm Peak grad, D 4.0 mm Hg ----- Peak grad, S 1 mm Hg MVA, PHT 2.6 cm^2 ----- SV 17 ml Pulmonic valve Value Ref Ventricular septum Value Ref Peak v, S 0.4 m/sec ----- IVS, ED (H) 1.2 cm 0.6 - 0.9 Peak grad, S 1.0 mm Hg ----- Right ventricle Value Ref Tricuspid valve Value Ref GILBERT, LAX 2.3 cm TR peak v 2.5 m/sec <=2.8 GILBERT minor ax, A4C 2.7 cm 1.9 - 3.5 Peak RV-RA grad, S 25 mm Hg ----- mid Pressure, S 33 mm Hg Aortic root Value Ref Root diam 2.4 cm <4.1 Left atrium Value Ref Root max diam, ED 2.4 cm <4.1 AP dim, ES (H) 5.20 cm 2.70 - 3.80 Ascending aorta Value Ref ML dim, A4C 5.2 cm AAo AP diam, S 3.1 cm ----- SI dim, A4C 7.8 cm AAo AP diam/bsa, S 1.6 cm/m^2 ----- Vol/bsa, ES, 1-p (H) 54 ml/m^2 11 - 40 A4C Pulmonary artery Value Ref Pressure, S 32.0 mm Hg ----- Right atrium Value Ref SI dim, ES (H) 7.4 cm 3.4 - 5.3 Inferior vena cava Value Ref ML dim, ES, A4C (H) 4.6 cm 2.6 - 4.4 Diam 2.8 cm ----- Estimated RAP 8 mm Hg Aortic valve Value Ref Linda diam, ED 1.9 cm Peak v, S 1.32 m/sec Legend: (L) and (H) marisol values outside specified reference range. Prepared and electronically signed by Cash Lees MD 04/03/2019 10:56
--- NOTE | 2019-04-03 13:13 | PN ---
Subjective Date of Service: 04/03/19 Interval History: Patient is feeling persistently very weak. Patient states this might have had a slight improvement since yesterday. Patient denies F/C, N/V, abdominal pain, diarrhea CP, palpitations, or other pain. Patient has been able to walk back and forth to the bathroom several times. Family History: Unchanged from Admission Social History: Unchanged from Admission Past Medical History: Unchanged from Admission Objective Active Medications: Acetaminophen (Tylenol Tab*) 650 mg PO Q6H PRN PRN Reason: MILD PAIN or TEMP > 100.4 Last Admin: 04/03/19 01:03 Dose: 650 mg Aspirin (Aspirin Ec Tab*) [facility] [place] Last Admin: 04/03/19 10:41 Dose: 81 mg Atorvastatin Calcium (Lipitor*) 20 mg PO DAILY [facility] Last Admin: 04/03/19 10:41 Dose: 20 mg Cyanocobalamin (Vitamin B12 Tab*) 1,000 mcg [facility] [place] Last Admin: 04/03/19 10:41 Dose: 1,000 mcg Ferrous Sulfate (Ferrous Sulfate Tab*) 325 mg PO [facility] Last Admin: 04/03/19 10:41 Dose: 325 mg Folic Acid (Folvite Tab*) 1 mg [facility] [place] Last Admin: 04/03/19 10:41 Dose: 1 mg Furosemide (Lasix Iv*) 40 mg IV SLOW PU 0800,1700 [facility] Last Admin: 04/03/19 11:14 Dose: Not Given Levothyroxine Sodium (Synthroid Tab*) 50 mcg PO DAILY@0600 [facility] Last Admin: 04/03/19 05:10 Dose: 50 mcg Nitroglycerin (Nitroglycerin Tab 0.4 Mg*) 0.4 mg SL Q5M PRN PRN Reason: ANGINA Ondansetron HCl (Zofran Inj*) 4 mg IV Q6H PRN PRN Reason: NAUSEA Pantoprazole Sodium (Protonix Tab*) 40 mg PO DAILY [facility] Last Admin: 04/03/19 10:41 Dose: 40 mg Potassium Chloride (Klor Con Er Tab*) 10 meq PO DAILY [facility] Last Admin: 04/03/19 10:41 Dose: 10 meq Vital Signs - 8 hr 04/03/19 04/03/19 07:32 11:15 Temperature 98.0 F 97.5 F Pulse Rate 101 103 Respiratory 22 18 Rate Blood Pressure 94/66 82/54 (mmHg) O2 Sat by Pulse 97 97 Oximetry Oxygen Devices in Use Now: None Appearance: Patient is an 88yo female who appears stated age and is sitting in the bed in NAD. Eyes: No Scleral Icterus, PERRLA Ears/Nose/Mouth/Throat: NL Teeth, Lips, Gums, Clear Oropharnyx, Mucous Membranes Moist Neck: NL Appearance and Movements; NL JVP, Trachea Midline Respiratory: Symmetrical Chest Expansion and Respiratory Effort, Clear to Auscultation Cardiovascular: NL Sounds; No Murmurs; No JVD, - - 3+ B/L LE edema. Irregularly Irregular rhythm. Abdominal: NL Sounds; No Tenderness; No Distention, No Hepatosplenomegaly Lymphatic: No Cervical Adenopathy Extremities: No Clubbing, Cyanosis Skin: No Rash or Ulcers, No Nodules or Sclerosis Neurological: Alert and Oriented x 3, NL Sensation, NL Muscle Strength and Tone , - - CN II-XII intact. Result Diagrams: 04/03/19 05:02 04/03/19 05:02 Assess/Plan/Problems-Billing Assessment: Patient is an 88yo female with a PMH for Afib, CAD, HFpEF, here with HF exacerbation, found to have newly decreased EF to 20-25% and Renal Failure. - Patient Problems (1) Heart failure with reduced ejection fraction Current Visit: Yes Status: Acute Code(s): I50.20 - UNSPECIFIED SYSTOLIC ( CONGESTIVE) HEART FAILURE SNOMED Code(s): 413980147 Comment: - New EF 20-25%. - Very symptomatic, low BP. - Unclear cause, differential includes Ischemia, Tachycardia, Pacemaker Induced - Likely cause of Renal Dysfunction - Diurese acutely, unable to start ACEI, BB, Aldosterone Antagonist, or ARNI - BP low, stop BP lowering medications. - LBBB worsened from previous exam, may need resynchronization pacer at some point. (2) Aortic stenosis Current Visit: No Status: Acute Priority: High Code(s): I35.0 - NONRHEUMATIC AORTIC (VALVE) STENOSIS SNOMED Code(s): 60381900 Comment: - S/P valve replacement which is functioning. (3) Atrial fibrillation Current Visit: No Status: Acute Code(s): I48.91 - UNSPECIFIED ATRIAL FIBRILLATION SNOMED Code(s): 07190831 Comment: - Chronic since pacer in January 2019 - HR around 100 that whole time per pacer interrrogations - Stop amio and metoprolol for blood pressure support (Was on 400 of amio and 50 BID of Toprol) - Hold Eliquis due to severe renal dysfunction. - F/U electrophysiology when stable for likely AV lisa ablation and possible resynchronization (4) Coronary artery disease Current Visit: No Status: Acute Code(s): I25.10 - ATHSCL HEART DISEASE OF [place] CORONARY ARTERY W/O ANG PCTRS SNOMED Code(s): 81399653 Comment: - Continue aspirin, atorvastatin - Elevated trop from HF exacberation - S/P stent, Recent stress test. ? if AR in interim, but lot most likely cause of HFrEF (5) Dysphagia Current Visit: No Status: Acute Code(s): R13.10 - DYSPHAGIA, UNSPECIFIED SNOMED Code(s): 11044965 Comment: - Chronic, Due to Zenker's - F/U outpatient GI (6) HLD (hyperlipidemia) Current Visit: No Status: Acute Code(s): E78.5 - HYPERLIPIDEMIA, UNSPECIFIED SNOMED Code(s): 03028120 Comment: - Continue atorvastatin. (7) HTN (hypertension) Current Visit: No Status: Acute Code(s): I10 - ESSENTIAL (PRIMARY) HYPERTENSION SNOMED Code(s): 91484827 Comment: - Hypotensive, hold antihypertensives. (8) Acute on chronic kidney failure Current Visit: No Status: Acute Code(s): N17.9 - ACUTE KIDNEY FAILURE, UNSPECIFIED; N18.9 - CHRONIC KIDNEY DISEASE, UNSPECIFIED SNOMED Code(s): 041153482 Comment: - Baseline 1.8, now up to 3.4 - Likely due to Cardiorenal, clinically hypervolemic - Diurese as tolerated by BP. - No indication for dialysis at this time, improved urine output without intervention. (9) LBBB (left bundle branch block) Current Visit: No Status: Acute Code(s): I44.7 - LEFT BUNDLE-BRANCH BLOCK, UNSPECIFIED SNOMED Code(s): 92102626 Comment: - Plan as above, likely worsened due to decreased EF. (10) Full code status Current Visit: No Status: Acute Code(s): Z78.9 - OTHER SPECIFIED HEALTH STATUS SNOMED Code(s): 938401897 Comment: (11) DVT prophylaxis Current Visit: No Status: Acute Code(s): YJO4025 - SNOMED Code(s): 405499497 Comment: - Eleuterio madrigal, SCD's Status and Disposition: Inpatient, Discharge when stable.
--- NOTE | 2019-04-03 15:14 | CONS ---
CC: Dr. Quevedo; Hospitalist Service; Dr. Cisneros; Dr. Lees CARDIOLOGY CONSULTATION: DATE OF CONSULT: 04/03/19 PRIMARY HARVEST WORKER FRUIT: Dr. Cisneros. HISTORY OF PRESENT ILLNESS: I was asked by hospitalist service to see this 88-year- old female patie nt, who presented to the hospital with generalized weakness and shortness of breath. The patient had very complex and extensive cardiac history and multiple hospitalizations, last one was relatively re cently for a permanent pacemaker implantation in January 2019. In summary, the patient does have kn own history of coronary artery disease with stenting in the past, the last one was in 2017 for the RC A, please refer to a full cath then; also history of aortic valve replacement, bioprosthetic aortic v alve in March of 2012. The patient had recently permanent pacemaker implantation for tachybrady sy ndrome, sick sinus syndrome and has been having atrial fibrillation, unsuccessful direct current card ioversion. Her echo before echo that was done today was done on actually 01/16/19 showed her EF to b e 60% to 65%, her echo from today actually showed EF 20% to 25%. The patient indicated that she had been gaining weight and retaining fluid and also has swelling in the lower extremities, shortness of breath, generalized fatigue and weakness. Most recently was seen by Dr. Cisneros on 02/11/19, she did i ndicate the weakness at that time as well. She is in congestive heart failure and she is admitted fo r further treatment for her heart failure. She is in chronic atrial fibrillation and she was suppose d to be seen as an outpatient by Electrophysiology, Dr. Streeetr, but she was unable to make it actual ly because of her generalized weakness and shortness of breath. She had no chest pain, no recent fev er or chills, no nausea, no vomiting, no tachycardia, no hematochezia, no abdominal pain, no syncope, no orthopnea is appreciated. Her review of all other systems essentially is negative. PAST MEDICAL HISTORY: Her past medical history is extensive and including sick sinus syndrome, statu s post recent permanent pacemaker implantation on 01/31/19. Nuclear Myoview stress test on 01/16/19 w as low risk or intermediate risk, although there was a reversible hypoperfusion lateral wall area for ischemia. History of aortic valve replacement in [place] in March 2012; history of coronary carlos ry disease, angioplasty/stenting recently in October 2016 for the RCA bare-metal stent; history of car dioversions in 2016, 2018 and also 2019, but the patient is in atrial fibrillation all the time, card ioversion was unsuccessful recently, although she was on amiodarone as an outpatient. Other medical history includes hypertension, hyperlipidemia, osteoarthritis, anemia. PAST SURGICAL HISTORY: As outlined above with aortic valve replacement, bioprosthetic, March 2012; colonoscopy; stenting to the RCA in 2016; cataract surgery in 2011. MEDICATIONS: Her medications as an outpatient were: 1. Eliquis 2.5 mg twice daily. 2. Nitroglycerin 0.4 mg sublingual p.r.n. 3. Lasix 40 mg p.o. daily. 4. Aspirin 81 mg daily. 5. Ferrous sulfate 325 mg daily. 6. Folic acid 1 mg daily. 7. Levothyroxine 50 mcg daily. 8. Metoprolol 25 mg twice a day. 9. She was also on amiodarone 200 mg 2 of them daily. 10. Vitamin B12 1000 mcg daily. 11. Lipitor 40 mg half at bedtime. 12. Pantoprazole 40 mg daily. 13. Potassium 20 mEq half daily. Her medications as an inpatient: 1. Tylenol 650 mg p.o. q.6 hours p.r.n. 2. Aspirin 81 mg daily. 3. Lipitor 20 mg daily. 4. Vitamin B12 1000 mcg daily. 5. Ferrous sulfate 325 mg daily. 6. Folic acid 1 mg daily. 7. Lasix IV 40 mg twice a day. 8. Synthroid 50 mcg daily. 9. Nitroglycerin 0.4 mg sublingual as needed. 10. Protonix 40 mg daily. 11. Potassium 10 mEq daily. Her amiodarone was discontinued. Toprol is on hold for now actually given the blood pressure is bord norma on the lower side in the 90s. ALLERGIES: She has no known drug allergies. FAMILY HISTORY: No family history of premature coronary artery disease. SOCIAL HISTORY: She gives no history of smoking, no drinking, no illicit drug use. REVIEW OF SYSTEMS: Review of all other systems essentially is negative other than mentioned in the i nitial note. PHYSICAL EXAM: On exam, she is elderly. She had no symptoms of chest pain. Family at bedside includ ing her and her daughter. Last vitals include blood pressure 82 systolic over 54, temperatur e 97.5, pulse 103, respiratory rate 18. She is in atrial fibrillation. Head and Neck Exam: Normocephalic, atraumatic head. Ears, Nose , and Throat: Essentially benign. JVP is elevated at 45 degrees. Chest: Diminished air entry bilat erally with rhonchi at the bases. Heart: Irregularly irregular. S1, S2. No added sounds. No dotson ps, no rubs. Click at the aortic area on auscultation of her bioprosthetic aortic valve. Abdomen: O bese, soft. Positive bowel sounds. Extremities: +2 pitting edema. No cyanosis, no clubbing. Skin exam is normal. Psych: Normal affect and mood. SAND CARRIER: No focal deficits appreciated. DIAGNOSTIC STUDIES/LAB DATA: Her sodium is 130, potassium 4.3, chloride 96, total CO2 of 21, BUN 54, creatinine 3.44. Of note is back on 02/03/19, her creatinine was 1.6 and then on 03/17/19 was 2.2, since then has been actually increasing. It looks like her baseline back in June of 2018, her creat inine was 1.2. Her BUN is 54. She did have her BUN as low as 25 actually and 26 back in January 28. Her other labs include calcium is normal, magnesium 2.1. LFTs: ALT 123, AST 92. Troponin 0.03, CRP 9.8, BNP more than 1300, and TSH normal 3.76. Her white blood cell 6.8, hemoglobin 10.8, hemato crit 32, platelets 131. Her chest x-ray showed elements of congestive heart failure. Her EKG showed her to be in left bundle branch block which is chronic and she is in atrial fibrillati on, heart rate about 103. This is from today actually, the same from yesterday. IMPRESSION: The patient is an 88-year-old female with very complex comorbidities, extensive cardiac history as outlined above with: 1. Presentation with acute systolic congestive heart failure. Of note is the patient's last reporte d echo in the first week of January 2019 showed EF 60% to 65%. A transthoracic echo from today show ed EF severely reduced 20% to 25%. It is not immediately clear the etiology, possibly the etiology c ould be arrhythmia or tachycardia-induced cardiomyopathy, idiopathic, viral illness, or ischemic bob nary artery disease. She does have known history of coronary artery disease. Her nuclear stress patricia t in January was moderate with reversible ischemia as described. She did have known stenting to the RCA in the past. 2. Atrial fibrillation, chronic. Her heart rate is overall actually not tachycardic. 3. Acute on chronic renal insufficiency, more acute or subacute and this could be probably related t o her low cardiac output state and prerenal element. 4. Status post aortic valve replacement, bioprosthetic, March 2012. 5. Coronary artery disease, last stenting to the RCA in October 2016. 6. Systemic arterial hypertension. 7. Hyperlipidemia. 8. Chronic baseline left bundle-branch block. 9. Obesity. 10. Hypothyroidism, on thyroid medications. 11. Status post permanent pacemaker implantation on 01/31/19 secondary to sick sinus syndrome and br adycardia. PLAN: Lengthy talk with the patient herself, her , her daughter at bedside, as well as I disc ussed it with the hospitalist service. At the present time, we are to treat her acute decompensating systolic congestive heart failure. Treatment is challenging given her significantly elevated creati nine and BUN as well as her soft blood pressure as low as in the 80s systolic which is probably relat ed to her severe cardiomyopathy with low cardiac output state. At the present time, I agree with franchesca charles, I's and O's. Restrict fluid and sodium as you are already doing, sodium less than 2 g pe r 24 hours, fluid less than 2 L per 24 hours, and I agree with Lasix keeping a close eye on her BUN, creatinine, potassium, and magnesium. Hopefully, if the blood pressure stabilized, very low dose bet a-emmett would be helpful, and in the future if amenable, very low dose SCARLETT inhibitors and also low- dose Aldactone might be considered to be added to her cardiomyopathy regimen medications. 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 She might try once for resuscitation. She is not sure if she is willing to proceed with any invasive procedure including f uture cardiac catheterization at the present time. This to be determined in the future. Keep a clos e eye on her low hemoglobin as well. Currently, she has no symptoms of chest pain. I answered all t heir concerns and questions up to their satisfaction. TIME SPENT: More than half of at least 60 to 65 plus minutes was in the education and counseling mod e, [id number] explaining the above, making further decision making, and answering all their concern s and questions. [id number]/[facility] #: [id number]
[2019-04-03] MEDS ORDERED: NS 0.9% 1000 ML** 1,000 ML IV SCH (16:00)
[2019-04-03 17:14] LABS: CO2 Carbon Dioxide 18 mmol/L (22-32); Calcium 8.6 mg/dL (8.6-10.3); Chloride 98 mmol/L (101-111); Sodium 130 mmol/L (135-145)
[2019-04-03 17:20] LABS: BUN/Creatinine Ratio 16.6 (8-20); Blood Urea Nitrogen 56 mg/dL (6-24); EGFR African American 15.6 (>60); EGFR Non-African American 12.9 (>60); Glucose 113 mg/dL (70-100)
[2019-04-03 17:33] LABS: Anion Gap 14 mmol/L (2-11)
[2019-04-04] MEDS: Levothyroxine TAB* 50 MCG TAB PO SCH (05:46)
[2019-04-04] MEDS ORDERED: Furosemide IV* 10 MG/ML 2 ML VIAL (20 MG) IV SLOW PU ONE (07:23)
[2019-04-04 07:57] LABS: ABS Lymphocytes 0.7 10^3/ul (1.0-4.8); ABS Monocytes 0.8 10^3/ul (0-0.8); ABS Neutrophils 4.8 10^3/ul (1.5-7.7); Eosinophil % 0.3 %; Hematocrit 30 % (35-47); Hemoglobin 10.2 g/dL (12.0-16.0); Lymphocyte % 10.6 %; Mean Corpuscular HGB Conc 34 g/dL (31-36); Mean Corpuscular Hemoglobin 34 pg (27-31); Mean Corpuscular Volume 102 fL (80-97); Mean Platelet Volume 7.4 fL (7.4-10.4); Nucleated Red Blood Cells % 0.3; Platelet Count 120 10^3/uL (150-450); Red Blood Count 2.99 10^6 /uL (3.70-4.87); Red Cell Distribution Width 16 % (10-15); White Blood Count 6.4 10^3/uL (3.5-10.8)
[2019-04-04 08:14] LABS: Albumin 3.2 g/dL (3.2-5.2); Albumin/Globulin Ratio 1.5 (1-3); BUN/Creatinine Ratio 16.7 (8-20); Calcium 8.6 mg/dL (8.6-10.3); EGFR African American 15.6 (>60); EGFR Non-African American 12.9 (>60); Globulin 2.1 g/dL (2-4); Potassium 4.4 mmol/L (3.5-5.0); Total Bilirubin 0.7 mg/dL (0.2-1.0); Total Protein 5.3 g/dL (6.4-8.9)
[2019-04-04] MEDS: Ferrous Sulfate TAB* 325 MG PO SCH (08:31)
[2019-04-04] MEDS: Folic Acid TAB* 1 MG PO SCH (08:31)
[2019-04-04] MEDS: Atorvastatin* 20 MG TAB PO SCH (08:31)
[2019-04-04] MEDS: Cyanocobalamin TAB* 500 MCG PO SCH (08:31)
[2019-04-04] MEDS: Potassium Chlor TAB* 10 MEQ TAB.ER PO SCH (08:31)
[2019-04-04] MEDS: Aspirin EC TAB* 81 MG TAB.EC PO SCH (08:31)
[2019-04-04] MEDS: Pantoprazole TAB * 40 MG TAB PO SCH (08:31)
--- NOTE | 2019-04-04 10:40 | PN ---
Subjective Date of Service: 04/04/19 - CC: SOB, increasing weight and leg edema Interval History: The patient was seen with her and daughter. She still feels SOB and legs bother her. Pt and family describe about 2 weeks of progressive weight gain, marked leg edema and weakness. Diarrhea earlier this week and very week. + anorexia ROS: Hx Yong. Medications Active Medications: Acetaminophen (Tylenol Tab*) 650 mg PO Q6H PRN PRN Reason: MILD PAIN or TEMP > 100.4 Last Admin: 04/03/19 01:03 Dose: 650 mg Aspirin (Aspirin Ec Tab*) 81 mg PO [facility] Last Admin: 04/04/19 08:31 Dose: 81 mg Atorvastatin Calcium (Lipitor*) 20 mg PO DAILY [facility] Last Admin: 04/04/19 08:31 Dose: 20 mg Cyanocobalamin (Vitamin B12 Tab*) [facility] [place] Admin: 04/04/19 08:31 Dose: 1,000 mcg Ferrous Sulfate (Ferrous Sulfate Tab*) 325 mg PO [facility] Last Admin: 04/04/19 08:31 Dose: 325 mg Folic Acid (Folvite Tab*) 1 mg PO [facility] Last Admin: 04/04/19 08:31 Dose: 1 mg Furosemide (Lasix Iv*) 20 mg IV SLOW PU 0800,1500 [facility] Levothyroxine Sodium (Synthroid Tab*) 50 mcg PO DAILY@0600 [facility] Last Admin: 04/04/19 05:46 Dose: 50 mcg Nitroglycerin (Nitroglycerin Tab 0.4 Mg*) 0.4 mg SL Q5M PRN PRN Reason: ANGINA Ondansetron HCl (Zofran Inj*) 4 mg IV Q6H PRN PRN Reason: NAUSEA Pantoprazole Sodium (Protonix Tab*) 40 mg PO DAILY [facility] Last Admin: 04/04/19 08:31 Dose: 40 mg Potassium Chloride (Klor Con Er Tab*) 10 meq PO DAILY [facility] Last Admin: 04/04/19 08:31 Dose: 10 meq Objective Vital Signs: Temp Pulse Resp BP Pulse Ox 97.3 F 105 20 104/52 100 04/04/19 07:12 04/04/19 07:12 04/04/19 07:12 04/04/19 08:34 04/04/19 07:12 Intake and Output Last 24 Hours 04/02/19 04/03/19 04/04/19 04/05/19 04:59 04:59 04:59 04:59 Intake Total 0 1280 240 Output Total 200 100 Balance 0 1080 140 Weight 194 lb 3.2 oz 208 lb 4.8 oz 200 lb Intake: IVPB 500 LR 500 Oral 0 780 240 Output: Urine 200 100 Other: Estimated Stool Amount Medium # Voids 5 Oxygen Devices in Use Now: Nasal Cannula Appearance: Elderly, obese, lying 30 degrees, anxious, tachypnic. Eyes: No Scleral Icterus Ears/Nose/Mouth/Throat: NL Teeth, Lips, Gums, Clear Oropharnyx Neck: Trachea Midline, No Thyroid Enlargement, Masses - Neck veins distended, elevated Respiratory: - - Distant throughout, very diminished left base. Rare crackles. No lung wheezing, larygeal wheezing heard Cardiovascular: - - Tachycardic, irregularly irregular, no murmurs. Abdominal: - - Abdominal sounds heard in chest, obese, poss ascites, no appreciable HSM/no pulsitile liver. Extremities: No Clubbing, Cyanosis, - - mild edemal legs bilatearlly. Skin: No Rash or Ulcers Neurological: Alert and Oriented x 3 - follows commands, moves in bed independently. Lines/Tubes/Other Access: Clean, Dry and Intact Peripheral IV Laboratory Results: 04/04/19 07:40 04/04/19 07:40 INR (Anticoag Therapy) 3.60 (0.82-1.09) H 04/02/19 15:47 Total Bilirubin 0.70 mg/dL (0.2-1.0) 04/04/19 07:40 AST 73 U/L (13-39) H 04/04/19 07:40 ALT 116 U/L (7-52) H 04/04/19 07:40 Alkaline Phosphatase 71 U/L (34-104) 04/04/19 07:40 B-Natriuretic Peptide > 1300 pg/mL (<=100) H 04/02/19 15:47 Total Protein 5.3 g/dL (6.4-8.9) L 04/04/19 07:40 Albumin 3.2 g/dL (3.2-5.2) 04/04/19 07:40 Globulin 2.1 g/dL (2-4) 04/04/19 07:40 Albumin/Globulin Ratio 1.5 (1-3) 04/04/19 07:40 TSH 3.76 mcIU/mL (0.34-5.60) 04/02/19 15:47 04/02/19 15:47 Troponin I 0.03 H* Diagnostic Imaging: *[facility]* [place] [address] Fax #: [phone] Transthoracic Echocardiogram Patient: Veronica Sherwood : 1930 Study Date: 04/03/2019 Age: 88 Gender: F HR: 99 bpm Height: 66 in /167.6 cm BSA: 1.97 m^2 Weight: 191.6 lb /87.1 kg BMI: 31 kg/m^2 *Fibreglass Laminator: * Brittni Lafleur [facility] *Referring Physician: * Mick Klein *Reading Physician: * Cash Lees MD Indications: Congestive Heart Failure. History: Atrial fibrillation. Coronary artery disease. Congestive heart failure. Risk factors: Hypertension. Dyslipidemia. Labs, prior tests, procedures, and surgery: Catheterization. There was a stenosis which was treated with a stent. Permanent pacemaker system implantation. Findings Left ventricle: The cavity size is at the upper limits of normal. Wall thickness is mildly increased. Systolic function is moderately to severely reduced. The estimated ejection fraction is 20-25%. Diffuse hypokinesis with regional variations. Basal segments are best preserved, Right ventricle: The cavity size is normal. Pacer wire noted in the right ventricle. Systolic function is low normal. Left atrium: The atrium is severely dilated. Right atrium: The atrium is severely dilated. Pacer wire noted in right atrium. Mitral valve: The Mitral valve annulus appears calcified. The leaflets are mildly calcified. The findings are consistent with mild stenosis. There is mild to moderate regurgitation. Aortic valve: There is a bioprosthetic valve. The leaflets are normal thickness. Mobility is not restricted. There is no significant regurgitation. Tricuspid valve: The leaflets are normal thickness. There is no evidence of stenosis. There is moderate-severe regurgitation. Pulmonic valve: The leaflets are normal thickness. There is no evidence of stenosis. There is trace regurgitation. Aorta: Aortic root: The aortic root is appears normal. Aortic arch: The aortic arch is poorly visualized. Pericardium: There is no significant pericardial effusion. There is a pleural effusion. Pulmonary arteries: Systolic pressure is within the normal range. EKG Data: Monitor: afib, RVR 90's to 100's Pacer interogation 04/03/2019: DDIR, lower rate 60 bpm. V paces 6%, A paces 3%. Frequently tachycardic, 100-120 >50%, increased since interogation 02/25/19. Assessment/Plan 88 yo female with persistent AF, RVR, LBBB, new drop in EF to 25% Comorbidities include: CKD, AVR, CAD, obese, HTN, chol, thyroid, OA, anemia. AFib: Continue anticoagulation for stroke prevention. Was on amiodarone out patient and metoprolol outpatient, now off. I would resume Metoprolol LA for rate control (and CM) unless a contraindication. OK to hold amiodarone for now as LFT's up and has been in persistent afib for months now. Was going to see Dr Fritz this week, EP, will likely need outpatient EP for poss AF ablation vs AV lisa ablation and poss. 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 Contributing issues could include LBBB,a fib itself and rapid ventricular rate. CKD could be a factor, chronic with acute component. Very low V pacing %, so that is not contributing. I am told low BP's and need for diuresis limit BB and ACEI now. Once fluid at baseline attempt to get on Toprol or Coreg and ACEI (following K+ , BUN, Cr carefully). As above, BRICK CARRIER and ablation might be options. No plans for cath. CKD: Hospitalists Looks chronic with poss. pre renal component too. Anemia: Marked and chronic. Contributing to high rates, could contribute to high out put CHF. LFT's up: mild, probably related to congestion not amiodarone, can follow. Overall high risk patient, quite ill, will be tough to re stabilize.
[2019-04-04] MEDS ORDERED: Acetaminophen TAB* 325 MG PO ONE (13:00)
[2019-04-04 13:20] LABS: Troponin I 0.04 ng/mL (<0.03)
[2019-04-04] MEDS ORDERED: Furosemide IV* 10 MG/ML 2 ML VIAL (20 MG) IV SLOW PU SCH ×2 (15:00→17:00)
--- NOTE | 2019-04-04 15:09 | PN ---
Subjective Date of Service: 04/04/19 Interval History: Patient this AM was feeling weak and mildly SOB. Patient in the afternoon, after being repositioned, developed chest pain which does not radiate and was reproducible with palpation. Patient states this pain does not feel like her usual Zenker's pain. However before nitroglycerin was able to be given, patient' s pain spontaneously abated. Patient has been urinating frequently. Patient denies N/V, abdominal pain, diarrhea, F/C, or other pain. Family History: Unchanged from Admission Social History: Unchanged from Admission Past Medical History: Unchanged from Admission Objective Active Medications: Acetaminophen (Tylenol Tab*) 650 mg PO Q6H PRN PRN Reason: MILD PAIN or TEMP > 100.4 Last Admin: 04/03/19 01:03 Dose: 650 mg Aspirin (Aspirin Ec Tab*) 81 mg PO [facility] Last Admin: 04/04/19 08:31 Dose: 81 mg Atorvastatin Calcium (Lipitor*) 20 mg PO DAILY [facility] Last Admin: 04/04/19 08:31 Dose: 20 mg Cyanocobalamin (Vitamin B12 Tab*) 1,000 mcg [facility] [place] Last Admin: 04/04/19 08:31 Dose: 1,000 mcg Ferrous Sulfate (Ferrous Sulfate Tab*) 325 mg [facility] [place] Last Admin: 04/04/19 08:31 Dose: 325 mg Folic Acid (Folvite Tab*) 1 mg PO [facility] Last Admin: 04/04/19 08:31 Dose: 1 mg Furosemide (Lasix Iv*) 20 mg IV SLOW PU 0800,1500 [facility] Levothyroxine Sodium (Synthroid Tab*) 50 mcg PO DAILY@0600 [facility] Last Admin: 04/04/19 05:46 Dose: 50 mcg Nitroglycerin (Nitroglycerin Tab 0.4 Mg*) 0.4 mg SL Q5M PRN PRN Reason: ANGINA Ondansetron HCl (Zofran Inj*) 4 mg IV Q6H PRN PRN Reason: NAUSEA Pantoprazole Sodium (Protonix Tab*) 40 mg PO DAILY [facility] Last Admin: 04/04/19 08:31 Dose: 40 mg Potassium Chloride (Klor Con Er Tab*) 10 meq PO DAILY [facility] Last Admin: 04/04/19 08:31 Dose: 10 meq Vital Signs - 8 hr 04/04/19 04/04/19 04/04/19 07:12 08:34 10:55 Temperature 97.3 F Pulse Rate 105 Respiratory 20 Rate Blood Pressure 97/54 104/52 95/63 (mmHg) O2 Sat by Pulse 100 Oximetry 04/04/19 11:15 Temperature 97.9 F Pulse Rate 108 Respiratory 22 Rate Blood Pressure 99/67 (mmHg) O2 Sat by Pulse 96 Oximetry Oxygen Devices in Use Now: Nasal Cannula Appearance: Patient is an 88yo female who appears stated age and is sitting in the bed in NAD. Eyes: No Scleral Icterus, PERRLA Ears/Nose/Mouth/Throat: NL Teeth, Lips, Gums, Clear Oropharnyx, Mucous Membranes Moist Neck: NL Appearance and Movements; NL JVP, Trachea Midline Respiratory: Symmetrical Chest Expansion and Respiratory Effort, Clear to Auscultation Cardiovascular: NL Sounds; No Murmurs; No JVD, - - 3+ B/L LE Edema, Prominent S3 , Irregularly Irregular Tachycardia. Abdominal: NL Sounds; No Tenderness; No Distention, No Hepatosplenomegaly Lymphatic: No Cervical Adenopathy Extremities: No Clubbing, Cyanosis Skin: No Rash or Ulcers, No Nodules or Sclerosis Neurological: Alert and Oriented x 3, NL Sensation, NL Muscle Strength and Tone , - - CN II-XII intact. Result Diagrams: 04/04/19 07:40 04/04/19 07:40 Assess/Plan/Problems-Billing Assessment: Patient is an 88yo female with a PMH for Afib, CAD, HFpEF, here with HF exacerbation, found to have newly decreased EF to 20-25% and Renal Failure. - Patient Problems (1) Heart failure with reduced ejection fraction Current Visit: Yes Status: Acute Code(s): I50.20 - UNSPECIFIED SYSTOLIC ( CONGESTIVE) HEART FAILURE SNOMED Code(s): 592836584 Comment: - New EF 20-25%. - Very symptomatic, low BP. - Unclear cause, differential includes Ischemia, Tachycardia, Viral, most likely - Likely cause of Renal Dysfunction from Fluid overload and poor forward flow. - Diurese acutely, unable to start ACEI, Aldosterone Antagonist, or ARNI - BP low, stopped BP lowering agents, reintroduced low dose (12.5mg daily) metoprolol succinate. - LBBB worsened from previous exam, may need resynchronization pacer at some point. - Intermittent diuresis as tolerated by BP. (2) Acute on chronic kidney failure Current Visit: No Status: Acute Code(s): N17.9 - ACUTE KIDNEY FAILURE, UNSPECIFIED; N18.9 - CHRONIC KIDNEY DISEASE, UNSPECIFIED SNOMED Code(s): 858572072 Comment: - Baseline 1.8, now up to 3.4 - Likely due to Cardiorenal, clinically hypervolemic - Diurese as tolerated by BP. - No indication for dialysis at this time, improved urine output without intervention. (3) Aortic stenosis Current Visit: No Status: Acute Priority: High Code(s): I35.0 - NONRHEUMATIC AORTIC (VALVE) STENOSIS SNOMED Code(s): 72445318 Comment: - S/P valve replacement which is functioning. (4) Atrial fibrillation Current Visit: No Status: Acute Code(s): I48.91 - UNSPECIFIED ATRIAL FIBRILLATION SNOMED Code(s): 46800619 Comment: - Chronic since pacer in January 2019 - HR around 100 that whole time per pacer interrrogations - Stop amio and metoprolol for blood pressure support (Was on 400 of amio and 50 BID of Toprol) - Hold Eliquis due to severe renal dysfunction. - F/U electrophysiology when stable for likely AV lisa ablation and possible resynchronization, may need hospital-hospital transfer if no improvement with diuresis and persistently low BP (5) Coronary artery disease Current Visit: No Status: Acute Code(s): I25.10 - ATHSCL HEART DISEASE OF [place] CORONARY ARTERY W/O ANG PCTRS SNOMED Code(s): 69227081 Comment: - Continue aspirin, atorvastatin - Elevated trop from HF exacerbation - S/P stent, Recent stress test. ? if MN in interim, but not most likely cause of HFrEF - Chest pain today. ? GI vs Musculoskeletal. Resume Metoprolol as BB withdrawal may have percipitated Angina. (6) Dysphagia Current Visit: No Status: Acute Code(s): R13.10 - DYSPHAGIA, UNSPECIFIED SNOMED Code(s): 50451828 Comment: - Chronic, Due to Zenker's - F/U outpatient GI (7) HLD (hyperlipidemia) Current Visit: No Status: Acute Code(s): E78.5 - HYPERLIPIDEMIA, UNSPECIFIED SNOMED Code(s): 34079004 Comment: - Continue atorvastatin. (8) HTN (hypertension) Current Visit: No Status: Acute Code(s): I10 - ESSENTIAL (PRIMARY) HYPERTENSION SNOMED Code(s): 49566110 Comment: - Hypotensive - Improving, resume lowest dose BB to avoid withdrawal if possible. (9) LBBB (left bundle branch block) Current Visit: No Status: Acute Code(s): I44.7 - LEFT BUNDLE-BRANCH BLOCK, UNSPECIFIED SNOMED Code(s): 00557449 Comment: - Plan as above, likely worsened due to decreased EF. (10) Full code status Current Visit: No Status: Acute Code(s): Z78.9 - OTHER SPECIFIED HEALTH STATUS SNOMED Code(s): 893480872 Comment: (11) DVT prophylaxis Current Visit: No Status: Acute Code(s): [id number] - SNOMED Code(s): 959019219 Comment: - Eleuterio madrigal, SCD's Status and Disposition: Inpatient, Discharge when stable.
[2019-04-04] MEDS: Metoprolol Succinate XL TAB* 25 MG PO SCH (15:34)
[2019-04-04 16:34] LABS: Troponin I 0.04 ng/mL (<0.03)
[2019-04-05] MEDS ORDERED: Furosemide IV* 10 MG/ML 2 ML VIAL (20 MG) IV ONE (01:00)
[2019-04-05] MEDS: Levothyroxine TAB* 50 MCG TAB PO SCH (06:03)
[2019-04-05 07:12] LABS: ABS Lymphocytes 0.7 10^3/ul (1.0-4.8); ABS Neutrophils 5.8 10^3/ul (1.5-7.7); Eosinophil % 0.2 %; Hematocrit 33 % (35-47); Lymphocyte % 9.6 %; Mean Corpuscular HGB Conc 34 g/dL (31-36); Mean Corpuscular Hemoglobin 35 pg (27-31); Mean Corpuscular Volume 103 fL (80-97); Mean Platelet Volume 7.6 fL (7.4-10.4); Nucleated Red Blood Cells % 0.5; Platelet Count 134 10^3/uL (150-450); Red Blood Count 3.18 10^6 /uL (3.70-4.87); Red Cell Distribution Width 16 % (10-15); White Blood Count 7.5 10^3/uL (3.5-10.8)
[2019-04-05 07:16] LABS: INR 2.5 (0.82-1.09)
[2019-04-05 07:29] LABS: BUN/Creatinine Ratio 16.8 (8-20); Calcium 8.8 mg/dL (8.6-10.3); EGFR African American 15.1 (>60); EGFR Non-African American 12.5 (>60); Magnesium 2.2 mg/dL (1.9-2.7); Potassium 4.8 mmol/L (3.5-5.0)
[2019-04-05] MEDS: Bumetanide IV* 0.25 MG/ML 4 ML VIAL SLOW PUSH SCH ×2 (10:27→20:42)
[2019-04-05] MEDS: Aspirin EC TAB* 81 MG TAB.EC PO SCH (10:27)
[2019-04-05] MEDS: Atorvastatin* 20 MG TAB PO SCH (10:27)
[2019-04-05] MEDS: Cyanocobalamin TAB* 500 MCG PO SCH (10:28)
[2019-04-05] MEDS: Potassium Chlor TAB* 10 MEQ TAB.ER PO SCH (10:28)
[2019-04-05] MEDS: Metoprolol Succinate XL TAB* 25 MG PO SCH (10:28)
[2019-04-05] MEDS: Pantoprazole TAB * 40 MG TAB PO SCH (10:28)
[2019-04-05] MEDS: Folic Acid TAB* 1 MG PO SCH (10:28)
--- NOTE | 2019-04-05 11:54 | PN ---
Subjective Date of Service: 04/05/19 Interval History: The patient was seen with her and daughter. She still feels SOB and legs bother her. Pt and family describe about 2 weeks of progressive weight gain, marked leg edema and weakness. Diarrhea earlier this week and very week. + anorexia ROS: Hx [place]. Medications Active Medications: Acetaminophen (Tylenol Tab*) 650 mg PO Q6H PRN PRN Reason: MILD PAIN or TEMP > 100.4 Last Admin: 04/03/19 01:03 Dose: 650 mg Aspirin (Aspirin Ec Tab*) 81 mg PO QAM [facility] Last Admin: 04/05/19 10:27 Dose: 81 mg Atorvastatin Calcium (Lipitor*) 20 mg PO DAILY [facility] Last Admin: 04/05/19 10:27 Dose: 20 mg Bumetanide (Bumex*) 1 mg SLOW PUSH BID [facility] Last Admin: 04/05/19 10:27 Dose: 1 mg Cyanocobalamin (Vitamin B12 Tab*) [facility] [place] Last Admin: 04/05/19 10:28 Dose: 1,000 mcg Folic Acid (Folvite Tab*) 1 mg PO QAM [facility] Last Admin: 04/05/19 10:28 Dose: 1 mg Levothyroxine Sodium (Synthroid Tab*) 50 mcg PO DAILY@0600 [facility] Last Admin: 04/05/19 06:03 Dose: 50 mcg Metoprolol Succinate (Toprol Xl Tab*) 12.5 mg PO DAILY [facility] Last Admin: 04/05/19 10:28 Dose: 12.5 mg Nitroglycerin (Nitroglycerin Tab 0.4 Mg*) 0.4 mg SL Q5M PRN PRN Reason: ANGINA Ondansetron HCl (Zofran Inj*) 4 mg IV Q6H PRN PRN Reason: NAUSEA Pantoprazole Sodium (Protonix Tab*) 40 mg PO DAILY [facility] Last Admin: 04/05/19 10:28 Dose: 40 mg Potassium Chloride (Klor Con Er Tab*) 10 meq PO DAILY [facility] Last Admin: 04/05/19 10:28 Dose: 10 meq HOME MEDS: Folic Acid TAB* [Folvite TAB*] 1 mg PO QA 09/30/12 [History Confirmed 04/02/19] Aspirin EC TAB* [Ecotrin EC Low Dose 81 MG*] 81 mg PO QA 12/28/14 [History Confirmed 04/02/19] Nitroglycerin TAB 0.4 MG* 0.4 mg SL Q5M PRN #60 tab 10/17/16 [Rx Confirmed 04/02] Cyanocobalamin TAB* [Vitamin B12 TAB*] 1,000 mcg PO QAM 03/06/17 [History Confirmed 04/02/19] Ferrous Sulfate TAB* 325 mg PO QAM 01/10/18 [History Confirmed 04/02/19] Docusate CAP* [Colace Cap*] 100 mg PO TID 12/01/18 [History Confirmed 04/02/19] Levothyroxine TAB* [Synthroid 25 MCG TAB*] 50 mcg PO DAILY 12/01/18 [History Confirmed 04/02/19] Apixaban* [Eliquis*] 5 mg PO BID 01/15/19 [History Confirmed 04/02/19] Pantoprazole TAB * [Protonix TAB*] 40 mg PO DAILY #14 tab 01/20/19 [Rx Confirmed 04/02/19] Acetaminophen TAB* [Tylenol TAB*] 650 mg PO Q4H PRN tab 02/03/19 [Rx Confirmed 04/02/19] Amiodarone TAB* [Cordarone Tab*] 400 mg PO DAILY 03/17/19 [History Confirmed ] Atorvastatin* [Lipitor 10 MG*] 20 mg PO DAILY 03/17/19 [History Confirmed ] Metoprolol Tartrate TAB* [Lopressor TAB*] 50 mg PO BID #30 tab 03/17/19 [Rx Confirmed 04/02/19] Furosemide TAB* [Lasix TAB*] 60 mg PO DAILY 03/29/19 [History Confirmed 04/02/19 ] Potassium Chloride 10 meq PO DAILY 03/29/19 [History Confirmed 04/02/19] Objective Vital Signs: Temp Pulse Resp BP Pulse Ox 97.2 F 94 24 110/72 100 04/05/19 07:40 04/05/19 07:40 04/05/19 07:40 04/05/19 07:40 04/05/19 07:40 Vital Signs - 12 hr Temp Pulse Resp BP Pulse Ox 04/05/19 07:40 97.2 F 94 24 110/72 100 04/05/19 03:53 97.8 F 101 20 95/64 99 Intake and Output Last 24 Hours 04/03/19 04/04/19 04/05/19 04/06/19 04:59 04:59 04:59 04:59 Intake Total 0 1280 810 120 Output Total 200 250 200 Balance 0 1080 560 -80 Weight 194 lb 3.2 oz 208 lb 4.8 oz 200 lb 204 lb 9.6 oz Intake: IV Fluids 0 0 LR 0 0 IVPB 500 0 0 LR 500 0 0 Oral 0 780 810 120 Output: Urine 200 250 200 Other: Estimated Void Small Estimated Stool Amount Medium # Voids 5 1 Oxygen Devices in Use Now: Nasal Cannula Appearance: Elderly, obese, lying 30 degrees, anxious, tachypnic. Eyes: No Scleral Icterus Ears/Nose/Mouth/Throat: NL Teeth, Lips, Gums, Clear Oropharnyx Neck: Trachea Midline, No Thyroid Enlargement, Masses - Neck veins distended, elevated Respiratory: - - Distant throughout, very diminished left base. Rare crackles. No lung wheezing, larygeal wheezing heard Cardiovascular: - - Tachycardic, irregularly irregular, no murmurs. Abdominal: - - Abdominal sounds heard in chest, obese, poss ascites, no appreciable HSM/no pulsitile liver. Extremities: No Clubbing, Cyanosis, - - mild edemal legs bilatearlly. Skin: No Rash or Ulcers Neurological: Alert and Oriented x 3 - follows commands, moves in bed independently. Lines/Tubes/Other Access: Clean, Dry and Intact Peripheral IV Laboratory Results: 04/05/19 06:43 04/05/19 06:43 INR (Anticoag Therapy) 2.50 (0.82-1.09) H 04/05/19 06:43 Total Bilirubin 0.70 mg/dL (0.2-1.0) 04/04/19 07:40 AST 73 U/L (13-39) H 04/04/19 07:40 ALT 116 U/L (7-52) H 04/04/19 07:40 Alkaline Phosphatase 71 U/L (34-104) 04/04/19 07:40 B-Natriuretic Peptide > 1300 pg/mL (<=100) H 04/02/19 15:47 Total Protein 5.3 g/dL (6.4-8.9) L 04/04/19 07:40 Albumin 3.2 g/dL (3.2-5.2) 04/04/19 07:40 Globulin 2.1 g/dL (2-4) 04/04/19 07:40 Albumin/Globulin Ratio 1.5 (1-3) 04/04/19 07:40 TSH 3.76 mcIU/mL (0.34-5.60) 04/02/19 15:47 04/02/19 04/04/19 04/04/19 15:47 12:53 16:03 Troponin I 0.03 H* 0.04 H* 0.04 H* URINE CX + E. COLI Diagnostic Imaging: *[facility]* [place] [address] Fax #: [phone] Transthoracic Echocardiogram Patient: Veronica Sherwood : 1930 Study Date: 04/03/2019 Age: 88 Gender: F HR: 99 bpm Height: 66 in /167.6 cm BSA: 1.97 m^2 Weight: 191.6 lb /87.1 kg BMI: 31 kg/m^2 *Phlebotomy Director: Brittni Angela [facility] *Referring Physician: * Mick Klein *Reading Physician: * Cash Lees MD Indications: Congestive Heart Failure. History: Atrial fibrillation. Coronary artery disease. Congestive heart failure. Risk factors: Hypertension. Dyslipidemia. Labs, prior tests, procedures, and surgery: Catheterization. There was a stenosis which was treated with a stent. Permanent pacemaker system implantation. Findings Left ventricle: The cavity size is at the upper limits of normal. Wall thickness is mildly increased. Systolic function is moderately to severely reduced. The estimated ejection fraction is 20-25%. Diffuse hypokinesis with regional variations. Basal segments are best preserved, Right ventricle: The cavity size is normal. Pacer wire noted in the right ventricle. Systolic function is low normal. Left atrium: The atrium is severely dilated. Right atrium: The atrium is severely dilated. Pacer wire noted in right atrium. Mitral valve: The Mitral valve annulus appears calcified. The leaflets are mildly calcified. The findings are consistent with mild stenosis. There is mild to moderate regurgitation. Aortic valve: There is a bioprosthetic valve. The leaflets are normal thickness. Mobility is not restricted. There is no significant regurgitation. Tricuspid valve: The leaflets are normal thickness. There is no evidence of stenosis. There is moderate-severe regurgitation. Pulmonic valve: The leaflets are normal thickness. There is no evidence of stenosis. There is trace regurgitation. Aorta: Aortic root: The aortic root is appears normal. Aortic arch: The aortic arch is poorly visualized. Pericardium: There is no significant pericardial effusion. There is a pleural effusion. Pulmonary arteries: Systolic pressure is within the normal range. EKG Data: Monitor: afib, RVR 90's to 100's Pacer interogation 04/03/2019: DDIR, lower rate 60 bpm. V paces 6%, A paces 3%. Frequently tachycardic, 100-120 >50%, increased since interogation 02/25/19. mONITOR 04/04/2019 - 04/05/2019: AFIB, LBBB, RVR AROUND 100-110 BPM Assessment/Plan 88 yo female with persistent AF, RVR, LBBB, new drop in EF to 25% Comorbidities include: CKD, AVR, CAD, obese, HTN, chol, thyroid, OA, anemia. AFib: Continue anticoagulation for stroke prevention. Was on amiodarone out patient and metoprolol outpatient, now off. I am re trialing metoprolol for rate control and will try a gram of digoxen ( toprol 12.5 added by hospitalists already). If pt responds to digoxen, may need only 0.125 QOD with CKD, if no response then won't continue. Agree hold amiodarone for now as LFT's up and has been in persistent afib for months now. Again, will likely need outpatient EP for poss AF ablation vs AV lisa ablation and poss. [employer]ER (missed appt with Dr Fritz this week). CM: New. Contributing issues could include LBBB,a fib itself and rapid ventricular rate. CKD could be a factor, chronic with acute component. Very low V pacing %, so that is not contributing. Low BP's and need for diuresis led to cessation of BB/ACEI. As above will add Toprol today. Lasix changed to Bumex noted. As above, S[employer]ER and ablation might be options. No plans for cath now, high risk with CKD and suspect CM rate + LBBB related. CKD: Hospitalists Looks chronic with poss. pre renal component too. Anemia: Marked and chronic. Contributing to high rates, could contribute to high out put CHF. LFT's up: mild, probably related to congestion not amiodarone, some improvement. Overall high risk patient, quite ill, will be tough to re stabilize.
[2019-04-05] MEDS ORDERED: Digoxin IV* 0.5 MG/2 ML AMP (0.25 MG/ML) IV SLOW PU ONE ×2 (12:08→16:56)
[2019-04-05] MEDS ORDERED: Bumetanide IV* 0.25 MG/ML 4 ML VIAL SLOW PUSH ONE (12:32)
--- NOTE | 2019-04-05 13:02 | PN ---
Subjective Date of Service: 04/05/19 Interval History: Patient is feeling poorly today. Patient has moderate SOB. Patient still feels as if her legs are weak and heavy. Patient has not been urinating very much. Patient denies CP, Cough, F/C, N/V, abdominal pain, dizziness, or other pain. Family History: Unchanged from Admission Social History: Unchanged from Admission Past Medical History: Unchanged from Admission Objective Active Medications: Acetaminophen (Tylenol Tab*) 650 mg PO Q6H PRN PRN Reason: MILD PAIN or TEMP > 100.4 Last Admin: 04/03/19 01:03 Dose: 650 mg Aspirin (Aspirin Ec Tab*) 81 mg PO QAM [facility] Last Admin: 04/05/19 10:27 Dose: 81 mg Atorvastatin Calcium (Lipitor*) 20 mg PO DAILY [facility] Last Admin: 04/05/19 10:27 Dose: 20 mg Bumetanide (Bumex*) 1 mg SLOW PUSH BID [facility] Last Admin: 04/05/19 10:27 Dose: 1 mg Cyanocobalamin (Vitamin B12 Tab*) [facility] [place] Last Admin: 04/05/19 10:28 Dose: 1,000 mcg Folic Acid (Folvite Tab*) 1 mg PO QAM [facility] Last Admin: 04/05/19 10:28 Dose: 1 mg Levothyroxine Sodium (Synthroid Tab*) 50 mcg PO DAILY@0600 [facility] Last Admin: 04/05/19 06:03 Dose: 50 mcg Metoprolol Succinate (Toprol Xl Tab*) 12.5 mg PO DAILY [facility] Last Admin: 04/05/19 10:28 Dose: 12.5 mg Nitroglycerin (Nitroglycerin Tab 0.4 Mg*) 0.4 mg SL Q5M PRN PRN Reason: ANGINA Ondansetron HCl (Zofran Inj*) 4 mg IV Q6H PRN PRN Reason: NAUSEA Pantoprazole Sodium (Protonix Tab*) 40 mg PO DAILY [facility] Last Admin: 04/05/19 10:28 Dose: 40 mg Potassium Chloride (Klor Con Er Tab*) 10 meq PO DAILY [facility] Last Admin: 04/05/19 10:28 Dose: 10 meq Vital Signs - 8 hr 04/05/19 04/05/19 07:40 11:42 Temperature 97.2 F 97.4 F Pulse Rate 94 107 Respiratory 24 24 Rate Blood Pressure 110/72 108/65 (mmHg) O2 Sat by Pulse 100 100 Oximetry Oxygen Devices in Use Now: Nasal Cannula Appearance: Patient is an 88yo female who appears stated age and is sitting in the bed in NAD. Eyes: No Scleral Icterus, PERRLA Ears/Nose/Mouth/Throat: NL Teeth, Lips, Gums, Clear Oropharnyx, Mucous Membranes Moist Neck: Trachea Midline, - - JVD to the corner of the jaw. Respiratory: Symmetrical Chest Expansion and Respiratory Effort, - - Rales in B/ L Lower lobes. Cardiovascular: NL Sounds; No Murmurs; No JVD, - - 3+ B/L LE edema, Irregularly irregular tachycardia. Abdominal: NL Sounds; No Tenderness; No Distention, No Hepatosplenomegaly Lymphatic: No Cervical Adenopathy Extremities: No Clubbing, Cyanosis Skin: No Rash or Ulcers, No Nodules or Sclerosis Neurological: Alert and Oriented x 3, NL Sensation, NL Muscle Strength and Tone , - - CN II-XII intact. Result Diagrams: 04/05/19 06:43 04/05/19 06:43 Microbiology and Other Data: Microbiology 04/03/19 03:55 Urine Culture - Final Urine Escherichia Coli Assess/Plan/Problems-Billing Assessment: Patient is an 88yo female with a PMH for Afib, CAD, HFpEF, here with HF exacerbation, found to have newly decreased EF to 20-25% and Renal Failure. - Patient Problems (1) Heart failure with reduced ejection fraction Current Visit: Yes Status: Acute Code(s): I50.20 - UNSPECIFIED SYSTOLIC ( CONGESTIVE) HEART FAILURE SNOMED Code(s): 876459480 Comment: - New EF 20-25%. - Very symptomatic, low BP improving - Unclear cause, differential includes Ischemia, Tachycardia, Viral, most likely tachycardia related - Likely cause of Renal Dysfunction from Fluid overload and poor forward flow. - Diurese acutely, unable to start ACEI, Aldosterone Antagonist, or ARNI - BP low, stopped BP lowering agents, reintroduced low dose (12.5mg daily) metoprolol succinate. - LBBB worsened from previous exam, may need resynchronization pacer at some point. - Intermittent diuresis as tolerated by BP. Giving IV bumex with minor effect. (2) Acute on chronic kidney failure Current Visit: No Status: Acute Code(s): N17.9 - ACUTE KIDNEY FAILURE, UNSPECIFIED; N18.9 - CHRONIC KIDNEY DISEASE, UNSPECIFIED SNOMED Code(s): 408452143 Comment: - Baseline 1.8, now up to 3.4 - Likely due to Cardiorenal, clinically hypervolemic - Diurese as tolerated by BP. - No indication for dialysis at this time, improved urine output without intervention. (3) Aortic stenosis Current Visit: No Status: Acute Priority: High Code(s): I35.0 - NONRHEUMATIC AORTIC (VALVE) STENOSIS SNOMED Code(s): 78454931 Comment: - S/P valve replacement which is functioning. (4) Atrial fibrillation Current Visit: No Status: Acute Code(s): I48.91 - UNSPECIFIED ATRIAL FIBRILLATION SNOMED Code(s): 51504382 Comment: - Chronic since pacer in January 2019 - HR around 100 that whole time per pacer interrrogations - Stop amio and metoprolol for blood pressure support (Was on 400 of amio and 50 BID of Toprol) - Hold Eliquis due to severe renal dysfunction. - F/U electrophysiology when stable for likely AV lisa ablation and possible resynchronization, may need hospital-hospital transfer if no improvement with diuresis and persistently low BP - Dig Load for HR, Check Level in AM (5) Coronary artery disease Current Visit: No Status: Acute Code(s): I25.10 - ATHSCL HEART DISEASE OF [place] CORONARY ARTERY W/O ANG PCTRS SNOMED Code(s): 84954998 Comment: - Continue aspirin, atorvastatin - Elevated trop from HF exacerbation - S/P stent, Recent stress test. ? if [place] in interim, but not most likely cause of HFrEF - Chest pain today. ? GI vs Musculoskeletal. Resume Metoprolol as BB withdrawal may have percipitated Angina. (6) Dysphagia Current Visit: No Status: Acute Code(s): R13.10 - DYSPHAGIA, UNSPECIFIED SNOMED Code(s): 06875672 Comment: - Chronic, Due to Zenker's - F/U outpatient GI (7) HLD (hyperlipidemia) Current Visit: No Status: Acute Code(s): E78.5 - HYPERLIPIDEMIA, UNSPECIFIED SNOMED Code(s): 99107002 Comment: - Continue atorvastatin. (8) HTN (hypertension) Current Visit: No Status: Acute Code(s): I10 - ESSENTIAL (PRIMARY) HYPERTENSION SNOMED Code(s): 11370455 Comment: - Hypotensive - Improving, resume lowest dose BB to avoid withdrawal if possible. (9) LBBB (left bundle branch block) Current Visit: No Status: Acute Code(s): I44.7 - LEFT BUNDLE-BRANCH BLOCK, UNSPECIFIED SNOMED Code(s): 78450232 Comment: - Plan as above, likely worsened due to decreased EF. (10) Full code status Current Visit: No Status: Acute Code(s): Z78.9 - OTHER SPECIFIED HEALTH STATUS SNOMED Code(s): 546487579 Comment: (11) DVT prophylaxis Current Visit: No Status: Acute Code(s): SSO4087 - SNOMED Code(s): 822023287 Comment: - Eleuterio madrigal, SCD's Status and Disposition: Inpatient, Discharge when stable.
[2019-04-06] MEDS: Levothyroxine TAB* 50 MCG TAB PO SCH (05:23)
[2019-04-06 05:47] LABS: ABS Lymphocytes 0.7 10^3/ul (1.0-4.8); ABS Neutrophils 5.8 10^3/ul (1.5-7.7); Eosinophil % 0.4 %; Hematocrit 33 % (35-47); Hemoglobin 10.7 g/dL (12.0-16.0); Lymphocyte % 9.6 %; Mean Corpuscular HGB Conc 33 g/dL (31-36); Mean Corpuscular Hemoglobin 34 pg (27-31); Mean Corpuscular Volume 103 fL (80-97); Mean Platelet Volume 7.1 fL (7.4-10.4); Nucleated Red Blood Cells % 0.3; Platelet Count 116 10^3/uL (150-450); Red Blood Count 3.17 10^6 /uL (3.70-4.87); Red Cell Distribution Width 16 % (10-15); White Blood Count 7.6 10^3/uL (3.5-10.8)
[2019-04-06 06:03] LABS: BUN/Creatinine Ratio 17.4 (8-20); Calcium 8.6 mg/dL (8.6-10.3); EGFR African American 16.1 (>60); EGFR Non-African American 13.3 (>60); Magnesium 2.1 mg/dL (1.9-2.7); Potassium 4.2 mmol/L (3.5-5.0)
[2019-04-06 06:23] LABS: Digoxin 2.7 ng/ml (0.8-2.0)
[2019-04-06] MEDS: Bumetanide IV* 0.25 MG/ML 4 ML VIAL SLOW PUSH SCH ×2 (08:27→14:18)
[2019-04-06] MEDS: Aspirin EC TAB* 81 MG TAB.EC PO SCH (08:32)
[2019-04-06] MEDS: Atorvastatin* 20 MG TAB PO SCH (08:32)
[2019-04-06] MEDS: Folic Acid TAB* 1 MG PO SCH (08:32)
[2019-04-06] MEDS: Potassium Chlor TAB* 10 MEQ TAB.ER PO SCH (08:32)
[2019-04-06] MEDS: Metoprolol Succinate XL TAB* 25 MG PO SCH (08:32)
[2019-04-06] MEDS: Pantoprazole TAB * 40 MG TAB PO SCH (08:32)
[2019-04-06] MEDS: Cyanocobalamin TAB* 500 MCG PO SCH (08:32)
--- NOTE | 2019-04-06 09:14 | PN ---
Subjective Date of Service: 04/06/19 Interval History: f/u afib, chf Heart rates improved s/p digoxin Patient dijamesing Feels much better today eating breakfast no chest pain Medications Active Medications: Acetaminophen (Tylenol Tab*) 650 mg PO Q6H PRN PRN Reason: MILD PAIN or TEMP > 100.4 Last Admin: 04/03/19 01:03 Dose: 650 mg Aspirin ([facility]in Ec Tab*) [facility] [place] Admin: 04/06/19 08:32 Dose: 81 mg Atorvastatin Calcium (Lipitor*) 20 mg PO DAILY [facility] Last Admin: 04/06/19 08:32 Dose: 20 mg Bumetanide (Bumex*) 2 mg SLOW PUSH 0800,1300 [facility] Last Admin: 04/06/19 08:27 Dose: 2 mg Cyanocobalamin (Vitamin B12 Tab*) 1,000 mcg PO QAM [facility] Last Admin: 04/06/19 08:32 Dose: 1,000 mcg Digoxin (Lanoxin Tab*) 0.125 mg PO Q48HR [facility] Folic Acid (Folvite Tab*) [facility] Last Admin: 04/06/19 08:32 Dose: 1 mg Levothyroxine Sodium (Synthroid Tab*) 50 mcg PO DAILY@0600 [facility] Last Admin: 04/06/19 05:23 Dose: 50 mcg Metoprolol Succinate (Toprol Xl Tab*) 12.5 mg PO DAILY [facility] Last Admin: 04/06/19 08:32 Dose: 12.5 mg Nitroglycerin (Nitroglycerin Tab 0.4 Mg*) 0.4 mg SL Q5M PRN PRN Reason: ANGINA Ondansetron HCl (Zofran Inj*) 4 mg IV Q6H PRN PRN Reason: NAUSEA Pantoprazole Sodium (Protonix Tab*) 40 mg PO DAILY [facility] Last Admin: 04/06/19 08:32 Dose: 40 mg Potassium Chloride (Klor Con Er Tab*) 10 meq PO DAILY [facility] Last Admin: 04/06/19 08:32 Dose: 10 meq Objective Vital Signs: Temp Pulse Resp BP Pulse Ox 97.6 F 61 20 136/89 100 04/06/19 07:47 04/06/19 07:47 04/06/19 08:00 04/06/19 07:47 04/06/19 07:47 Oxygen Devices in Use Now: Nasal Cannula Appearance: nad, pleasant Eyes: No Scleral Icterus Ears/Nose/Mouth/Throat: NL Teeth, Lips, Gums, Clear Oropharnyx Neck: Trachea Midline, - - uncertain jvp Respiratory: Symmetrical Chest Expansion and Respiratory Effort, - - rales left base Cardiovascular: - - irregularly irregular, no signifcant murmur, pacemaker site intact Abdominal: - - Abdominal sounds heard in chest, obese, poss ascites, no appreciable HSM/no pulsitile liver. Extremities: No Clubbing, Cyanosis, - - mild edemal legs bilatearlly. Skin: No Rash or Ulcers Neurological: Alert and Oriented x 3 - follows commands, moves in bed independently. Lines/Tubes/Other Access: Clean, Dry and Intact Peripheral IV Laboratory Results: 04/06/19 05:31 04/06/19 05:31 INR (Anticoag Therapy) 2.50 (0.82-1.09) H 04/05/19 06:43 Total Bilirubin 0.70 mg/dL (0.2-1.0) 04/04/19 07:40 AST 73 U/L (13-39) H 04/04/19 07:40 ALT 116 U/L (7-52) H 04/04/19 07:40 Alkaline Phosphatase 71 U/L (34-104) 04/04/19 07:40 B-Natriuretic Peptide > 1300 pg/mL (<=100) H 04/02/19 15:47 Total Protein 5.3 g/dL (6.4-8.9) L 04/04/19 07:40 Albumin 3.2 g/dL (3.2-5.2) 04/04/19 07:40 Globulin 2.1 g/dL (2-4) 04/04/19 07:40 Albumin/Globulin Ratio 1.5 (1-3) 04/04/19 07:40 TSH 3.76 mcIU/mL (0.34-5.60) 04/02/19 15:47 04/02/19 04/04/19 04/04/19 15:47 12:53 16:03 Troponin I 0.03 H* 0.04 H* 0.04 H* Diagnostic Imaging: Transthoracic Echocardiogram Patient: Veronica Sherwood : 1930 Study Date: 04/03/2019 Findings Left ventricle: The cavity size is at the upper limits of normal. Wall thickness is mildly increased. Systolic function is moderately to severely reduced. The estimated ejection fraction is 20-25%. Diffuse hypokinesis with regional variations. Basal segments are best preserved, Right ventricle: The cavity size is normal. Pacer wire noted in the right ventricle. Systolic function is low normal. Left atrium: The atrium is severely dilated. Right atrium: The atrium is severely dilated. Pacer wire noted in right atrium. Mitral valve: The Mitral valve annulus appears calcified. The leaflets are mildly calcified. The findings are consistent with mild stenosis. There is mild to moderate regurgitation. Aortic valve: There is a bioprosthetic valve. The leaflets are normal thickness. Mobility is not restricted. There is no significant regurgitation. Tricuspid valve: The leaflets are normal thickness. There is no evidence of stenosis. There is moderate-severe regurgitation. Pulmonic valve: The leaflets are normal thickness. There is no evidence of stenosis. There is trace regurgitation. Aorta: Aortic root: The aortic root is appears normal. Aortic arch: The aortic arch is poorly visualized. Pericardium: There is no significant pericardial effusion. There is a pleural effusion. Pulmonary arteries: Systolic pressure is within the normal range. EKG Data: Monitor: afib, RVR 90's to 100's Pacer interogation 04/03/2019: DDIR, lower rate 60 bpm. V paces 6%, A paces 3%. Frequently tachycardic, 100-120 >50%, increased since interogation 02/25/19. mONITOR 04/04/2019 - 04/05/2019: AFIB, LBBB, RVR AROUND 100-110 BPM Assessment/Plan 88 yo female with persistent AF, pacemaker, LBBB, CKD, prior HFpEF admitted with new onset acute systolic HF LVEF to 25% in setting of ongoing rapid atrial fibrillation now rate controlled and diuresing after starting digoxin and IV diuretic - Restart home metoprolol 25 mg po bid (ordered) - s/p digoxin load, acute level noted, would start 0.125 mcg po every other day (ordered) and check steady state level in 2 weeks - continue anticoagulation - continue diuresis - amiodarone held for, will be in system for months - ? if cardiomyopathy was more related to rapid afib then anything else
--- NOTE | 2019-04-06 11:02 | PN ---
Subjective Date of Service: 04/06/19 Interval History: Patient is less SOB today. Patient still feels like her legs are heavy and she has weakness, but this is improved. Patient denies F/C, CP, N/V, abdominal pain , or other pain. Patient is urinating at an increased rate. Family History: Unchanged from Admission Social History: Unchanged from Admission Past Medical History: Unchanged from Admission Objective Active Medications: Acetaminophen (Tylenol Tab*) 650 mg PO Q6H PRN PRN Reason: MILD PAIN or TEMP > 100.4 Last Admin: 04/03/19 01:03 Dose: 650 mg Aspirin (Aspirin Ec Tab*) 81 mg PO QAM [facility] Last Admin: 04/06/19 08:32 Dose: 81 mg Atorvastatin Calcium (Lipitor*) 20 mg PO DAILY [facility] Last Admin: 04/06/19 08:32 Dose: 20 mg Bumetanide (Bumex*) 2 mg SLOW PUSH 0800,1300 [facility] Last Admin: 04/06/19 08:27 Dose: 2 mg Cyanocobalamin (Vitamin B12 Tab*) 1,000 mcg PO QAM [facility] Last Admin: 04/06/19 08:32 Dose: 1,000 mcg Digoxin (Lanoxin Tab*) 0.125 mg PO Q48HR [facility] Folic Acid (Folvite Tab*) 1 mg PO QAM [facility] Last Admin: 04/06/19 08:32 Dose: 1 mg Levothyroxine Sodium (Synthroid Tab*) 50 mcg PO DAILY@0600 [facility] Last Admin: 04/06/19 05:23 Dose: 50 mcg Metoprolol Tartrate (Lopressor Tab*) 25 mg PO BID [facility] Nitroglycerin (Nitroglycerin Tab 0.4 Mg*) 0.4 mg SL Q5M PRN PRN Reason: ANGINA Ondansetron HCl (Zofran Inj*) 4 mg IV Q6H PRN PRN Reason: NAUSEA Pantoprazole Sodium (Protonix Tab*) 40 mg PO DAILY [facility] Last Admin: 04/06/19 08:32 Dose: 40 mg Potassium Chloride (Klor Con Er Tab*) 10 meq PO DAILY [facility] Last Admin: 04/06/19 08:32 Dose: 10 meq Vital Signs - 8 hr 04/06/19 04/06/19 04/06/19 03:15 07:47 08:00 Temperature 97.6 F 97.6 F Pulse Rate 65 61 Respiratory 19 20 20 Rate Blood Pressure 120/61 136/89 (mmHg) O2 Sat by Pulse 99 100 Oximetry Oxygen Devices in Use Now: Nasal Cannula Appearance: Patient is an 88yo female who appears stated age and is sitting in the bed in NAD. Eyes: No Scleral Icterus, PERRLA Ears/Nose/Mouth/Throat: NL Teeth, Lips, Gums, Clear Oropharnyx, Mucous Membranes Moist Neck: NL Appearance and Movements; NL JVP, Trachea Midline Respiratory: Symmetrical Chest Expansion and Respiratory Effort, - - Rales in B/ L Bases. Cardiovascular: NL Sounds; No Murmurs; No JVD, - - 2+ B/L LE edema. Irregularly Irregular rhythm. Abdominal: NL Sounds; No Tenderness; No Distention Lymphatic: No Cervical Adenopathy Extremities: No Clubbing, Cyanosis Skin: No Rash or Ulcers, No Nodules or Sclerosis Neurological: Alert and Oriented x 3, NL Sensation, NL Muscle Strength and Tone , - - CN II-XII intact. Result Diagrams: 04/06/19 05:31 04/06/19 05:31 Microbiology and Other Data: Microbiology 04/03/19 03:55 Urine Culture - Final Urine Escherichia Coli Assess/Plan/Problems-Billing Assessment: Patient is an 88yo female with a PMH for Afib, CAD, HFpEF, here with HF exacerbation, found to have newly decreased EF to 20-25% and Renal Failure. - Patient Problems (1) Heart failure with reduced ejection fraction Current Visit: Yes Status: Acute Code(s): I50.20 - UNSPECIFIED SYSTOLIC ( CONGESTIVE) HEART FAILURE SNOMED Code(s): 711704268 Comment: - New EF 20-25%. - Symptoms improving, low BP improving greatly - Unclear cause, differential includes Ischemia, Tachycardia, Viral, most likely tachycardia related - Likely cause of Renal Dysfunction from Fluid overload and poor forward flow. - Diurese acutely, when approaching euvolemia, start ACEI and Spirnolactone, consider ARNI at some point if able. - LBBB worsened from previous exam, may need resynchronization pacer at some point. - Intermittent diuresis as tolerated by BP. Increase IV Bumex to 2mg IV BID (2) Atrial fibrillation Current Visit: No Status: Acute Code(s): I48.91 - UNSPECIFIED ATRIAL FIBRILLATION SNOMED Code(s): 06726419 Comment: - Chronic since pacer in January 2019 - HR around 100 that whole time per pacer interrrogations - Stop amio, was on 400mg daily - Hold Eliquis due to severe renal dysfunction. - F/U electrophysiology when stable for likely AV lisa ablation and possible resynchronization - May be done outpatient - Dig Load for HR, start .125mg every other day - Improved rate control. (3) Acute on chronic kidney failure Current Visit: No Status: Acute Code(s): N17.9 - ACUTE KIDNEY FAILURE, UNSPECIFIED; N18.9 - CHRONIC KIDNEY DISEASE, UNSPECIFIED SNOMED Code(s): 928056650 Comment: - Baseline 1.8, now improving fro peak of 3.4 - Likely due to Cardiorenal, clinically hypervolemic - Diurese as tolerated by BP. (4) Aortic stenosis Current Visit: No Status: Acute Priority: High Code(s): I35.0 - NONRHEUMATIC AORTIC (VALVE) STENOSIS SNOMED Code(s): 90492756 Comment: - S/P valve replacement which is functioning. (5) Coronary artery disease Current Visit: No Status: Acute Code(s): I25.10 - ATHSCL HEART DISEASE OF [place] CORONARY ARTERY W/O ANG PCTRS SNOMED Code(s): 13249379 Comment: - Continue aspirin, atorvastatin - Elevated trop from HF exacerbation - S/P stent, Recent stress test. ? if [place] in interim, but not most likely cause of HFrEF - Chest pain today. ? GI vs Musculoskeletal. Resume Metoprolol as BB withdrawal may have percipitated Angina. (6) Dysphagia Current Visit: No Status: Acute Code(s): R13.10 - DYSPHAGIA, UNSPECIFIED SNOMED Code(s): 16503073 Comment: - Chronic, Due to Zenker's - F/U outpatient GI (7) HLD (hyperlipidemia) Current Visit: No Status: Acute Code(s): E78.5 - HYPERLIPIDEMIA, UNSPECIFIED SNOMED Code(s): 42606632 Comment: - Continue atorvastatin. (8) HTN (hypertension) Current Visit: No Status: Acute Code(s): I10 - ESSENTIAL (PRIMARY) HYPERTENSION SNOMED Code(s): 53903399 Comment: - Improving, Resume 25mg BB BID - Bumex for diuresis - Start ACEI and spirnolactone when able. (9) LBBB (left bundle branch block) Current Visit: No Status: Acute Code(s): I44.7 - LEFT BUNDLE-BRANCH BLOCK, UNSPECIFIED SNOMED Code(s): 97867922 Comment: - Plan as above, likely worsened due to decreased EF. (10) Full code status Current Visit: No Status: Acute Code(s): Z78.9 - OTHER SPECIFIED HEALTH STATUS SNOMED Code(s): 945335451 Comment: (11) DVT prophylaxis Current Visit: No Status: Acute Code(s): RIB4012 - SNOMED Code(s): 349167884 Comment: - Eleuterio madrigal, SCD's Status and Disposition: Inpatient, Discharge when stable.
[2019-04-06 13:52] LABS: Calcium 8.6 mg/dL (8.6-10.3); EGFR Non-African American 14.1 (>60)
[2019-04-06] MEDS: Apixaban* 2.5 MG TAB PO SCH (20:27)
[2019-04-06] MEDS: Metoprolol Tartrate TAB* 25 MG PO SCH (20:27)
[2019-04-07] MEDS: Levothyroxine TAB* 50 MCG TAB PO SCH (05:33)
[2019-04-07 06:04] LABS: ABS Eosinophils 0.1 10^3/ul (0-0.6); ABS Lymphocytes 0.5 10^3/ul (1.0-4.8); ABS Monocytes 0.7 10^3/ul (0-0.8); ABS Neutrophils 4.2 10^3/ul (1.5-7.7); Eosinophil % 2.1 %; Hematocrit 31 % (35-47); Hemoglobin 10.3 g/dL (12.0-16.0); Lymphocyte % 9.4 %; Mean Corpuscular HGB Conc 34 g/dL (31-36); Mean Corpuscular Hemoglobin 34 pg (27-31); Mean Corpuscular Volume 102 fL (80-97); Mean Platelet Volume 7.3 fL (7.4-10.4); Nucleated Red Blood Cells % 0.1; Platelet Count 104 10^3/uL (150-450); Red Blood Count 2.99 10^6 /uL (3.70-4.87); Red Cell Distribution Width 17 % (10-15); White Blood Count 5.5 10^3/uL (3.5-10.8)
[2019-04-07 06:13] LABS: INR 2.08 (0.82-1.09)
[2019-04-07 06:30] LABS: Albumin/Globulin Ratio 1.5 (1-3); BUN/Creatinine Ratio 18.3 (8-20); Calcium 8.3 mg/dL (8.6-10.3); EGFR African American 21.3 (>60); EGFR Non-African American 17.6 (>60); Magnesium 1.9 mg/dL (1.9-2.7); Potassium 3.3 mmol/L (3.5-5.0); Total Bilirubin 0.9 mg/dL (0.2-1.0)
[2019-04-07] MEDS: Digoxin TAB* 0.125 MG PO SCH (08:09)
[2019-04-07] MEDS: Atorvastatin* 20 MG TAB PO SCH (08:23)
[2019-04-07] MEDS: Potassium Chlor TAB* 10 MEQ TAB.ER PO SCH (08:23)
[2019-04-07] MEDS: Bumetanide IV* 0.25 MG/ML 4 ML VIAL SLOW PUSH SCH ×2 (08:23→12:45)
[2019-04-07] MEDS: Folic Acid TAB* 1 MG PO SCH (08:23)
[2019-04-07] MEDS: Aspirin EC TAB* 81 MG TAB.EC PO SCH (08:23)
[2019-04-07] MEDS: Metoprolol Tartrate TAB* 25 MG PO SCH (08:24)
[2019-04-07] MEDS: Cyanocobalamin TAB* 500 MCG PO SCH (08:24)
[2019-04-07] MEDS: Apixaban* 2.5 MG TAB PO SCH ×2 (08:24→20:37)
[2019-04-07] MEDS: Pantoprazole TAB * 40 MG TAB PO SCH (08:24)
[2019-04-07] MEDS ORDERED: Potassium Chlor TAB* 10 MEQ TAB.ER PO ONE ×2 (09:49→13:00)
--- NOTE | 2019-04-07 10:02 | PN ---
<HeidiraghavErmelinda - Last Filed: 04/07/19 10:03> Subjective Date of Service: 04/07/19 - decompensated SHF, Afib with poorly controlled ventricular rates Interval History: f/u afib, chf Heart rates improved s/p digoxin Patient diuresing, and states she still feels weak but does note an improvement in breathing ability. denies chest pain. Daughter is at bedside and expressed concern that patient has not been ambulating yet which she typically does at home with a walker and has not seen physical therapy. edema has nearly resolved. Medications Active Medications: Acetaminophen (Tylenol Tab*) 650 mg PO Q6H PRN PRN Reason: MILD PAIN or TEMP > 100.4 Last Admin: 04/03/19 01:03 Dose: 650 mg Apixaban (Eliquis*) 2.5 mg PO BID [facility] Last Admin: 04/07/19 08:24 Dose: 2.5 mg Aspirin (Aspirin Ec Tab*) 81 mg PO QAM [facility] Last Admin: 04/07/19 08:23 Dose: 81 mg Atorvastatin Calcium (Lipitor*) 20 mg PO DAILY [facility] Last Admin: 04/07/19 08:23 Dose: 20 mg Bumetanide (Bumex*) 2 mg SLOW PUSH 0800,1300 [facility] Last Admin: 04/07/19 08:23 Dose: 2 mg Cyanocobalamin (Vitamin B12 Tab*) 1,000 mcg PO QAM [facility] Last Admin: 04/07/19 08:24 Dose: 1,000 mcg Digoxin (Lanoxin Tab*) 0.125 mg PO Q48HR [facility] Last Admin: 04/07/19 08:09 Dose: Not Given Folic Acid (Folvite Tab*) 1 mg PO QAM [facility] Last Admin: 04/07/19 08:23 Dose: 1 mg Levothyroxine Sodium (Synthroid Tab*) 50 mcg PO DAILY@0600 [facility] Last Admin: 04/07/19 05:33 Dose: 50 mcg Metoprolol Tartrate (Lopressor Tab*) 25 mg PO BID [facility] Last Admin: 04/07/19 08:24 Dose: 25 mg Nitroglycerin (Nitroglycerin Tab 0.4 Mg*) 0.4 mg SL Q5M PRN PRN Reason: ANGINA Ondansetron HCl (Zofran Inj*) 4 mg IV Q6H PRN PRN Reason: NAUSEA Pantoprazole Sodium (Protonix Tab*) 40 mg PO DAILY [facility] Last Admin: 04/07/19 08:24 Dose: 40 mg Potassium Chloride (Klor Con Er Tab*) 10 meq PO DAILY [facility] Last Admin: 04/07/19 08:23 Dose: 10 meq Objective Vital Signs: Temp Pulse Resp BP Pulse Ox 97.5 F 63 18 121/33 100 04/07/19 07:15 04/07/19 07:15 04/07/19 07:36 04/07/19 07:15 04/07/19 07:15 Oxygen Devices in Use Now: Nasal Cannula Appearance: nad, pleasant, appears weak lying in bed. Daughter is at bedside. Eyes: No Scleral Icterus Ears/Nose/Mouth/Throat: NL Teeth, Lips, Gums, Clear Oropharnyx Neck: Trachea Midline, - - uncertain jvp Respiratory: - - rales left/right base Cardiovascular: - - irregularly irregular, no signifcant murmur, pacemaker site intact Abdominal: - - Abdominal sounds heard in chest, obese, poss ascites, no appreciable HSM/no pulsitile liver. Extremities: No Edema, No Clubbing, Cyanosis, - Skin: No Rash or Ulcers Neurological: Alert and Oriented x 3 - follows commands, moves in bed independently. Lines/Tubes/Other Access: Clean, Dry and Intact Peripheral IV Laboratory Results: 04/07/19 05:13 04/07/19 05:13 INR (Anticoag Therapy) 2.08 (0.82-1.09) H 04/07/19 05:13 Total Bilirubin 0.90 mg/dL (0.2-1.0) 04/07/19 05:13 AST 44 U/L (13-39) H 04/07/19 05:13 ALT 95 U/L (7-52) H 04/07/19 05:13 Alkaline Phosphatase 78 U/L (34-104) 04/07/19 05:13 B-Natriuretic Peptide > 1300 pg/mL (<=100) H 04/02/19 15:47 Total Protein 5.0 g/dL (6.4-8.9) L 04/07/19 05:13 Albumin 3.0 g/dL (3.2-5.2) L 04/07/19 05:13 Globulin 2.0 g/dL (2-4) 04/07/19 05:13 Albumin/Globulin Ratio 1.5 (1-3) 04/07/19 05:13 TSH 3.76 mcIU/mL (0.34-5.60) 04/02/19 15:47 04/02/19 04/04/19 04/04/19 15:47 12:53 16:03 Troponin I 0.03 H* 0.04 H* 0.04 H* Laboratory Results - last 24 hr 04/06/19 04/06/19 04/07/19 13:24 13:24 05:13 WBC 5.5 RBC 2.99 L Hgb 10.3 L Hct 31 L MCV 102 H MCH 34 H MCHC 34 RDW 17 H Plt Count 104 L MPV 7.3 L Neut % (Auto) 75.0 Lymph % (Auto) 9.4 [place] % (Auto) 13.2 Eos % (Auto) 2.1 Baso % (Auto) 0.3 Absolute Neuts (auto) 4.2 Absolute Lymphs (auto) 0.5 L Absolute Monos (auto) 0.7 Absolute Eos (auto) 0.1 Absolute Basos (auto) 0.0 Absolute Nucleated RBC 0.0 Nucleated RBC % 0.1 INR (Anticoag Therapy) 2.00 H Sodium 133 L Potassium 4.0 Chloride 96 L Carbon Dioxide 29 Anion Gap 8 BUN 53 H Creatinine 3.12 H Est GFR ( Amer) 17.0 Est GFR (Non-Af Amer) 14.1 BUN/Creatinine Ratio 17.0 Glucose 125 H Calcium 8.6 Magnesium Total Bilirubin AST ALT Alkaline Phosphatase Total Protein Albumin Globulin Albumin/Globulin Ratio 04/07/19 04/07/19 05:13 05:13 WBC RBC Hgb Hct MCV MCH MCHC RDW Plt Count MPV Neut % (Auto) Lymph % (Auto) [place] % (Auto) Eos % (Auto) Baso % (Auto) Absolute Neuts (auto) Absolute Lymphs (auto) Absolute Monos (auto) Absolute Eos (auto) Absolute Basos (auto) Absolute Nucleated RBC Nucleated RBC % INR (Anticoag Therapy) 2.08 H Sodium 137 Potassium 3.3 L Chloride 99 L Carbon Dioxide 32 Anion Gap 6 BUN 47 H Creatinine 2.57 H Est GFR ( Amer) 21.3 Est GFR (Non-Af Amer) 17.6 BUN/Creatinine Ratio 18.3 Glucose 84 Calcium 8.3 L Magnesium 1.9 Total Bilirubin 0.90 AST 44 H ALT 95 H Alkaline Phosphatase 78 Total Protein 5.0 L Albumin 3.0 L Globulin 2.0 Albumin/Globulin Ratio 1.5 Diagnostic Imaging: Transthoracic Echocardiogram Patient: Veronica Sherwood : 1930 Study Date: 04/03/2019 Findings Left ventricle: The cavity size is at the upper limits of normal. Wall thickness is mildly increased. Systolic function is moderately to severely reduced. The estimated ejection fraction is 20-25%. Diffuse hypokinesis with regional variations. Basal segments are best preserved, Right ventricle: The cavity size is normal. Pacer wire noted in the right ventricle. Systolic function is low normal. Left atrium: The atrium is severely dilated. Right atrium: The atrium is severely dilated. Pacer wire noted in right atrium. Mitral valve: The Mitral valve annulus appears calcified. The leaflets are mildly calcified. The findings are consistent with mild stenosis. There is mild to moderate regurgitation. Aortic valve: There is a bioprosthetic valve. The leaflets are normal thickness. Mobility is not restricted. There is no significant regurgitation. Tricuspid valve: The leaflets are normal thickness. There is no evidence of stenosis. There is moderate-severe regurgitation. Pulmonic valve: The leaflets are normal thickness. There is no evidence of stenosis. There is trace regurgitation. Aorta: Aortic root: The aortic root is appears normal. Aortic arch: The aortic arch is poorly visualized. Pericardium: There is no significant pericardial effusion. There is a pleural effusion. Pulmonary arteries: Systolic pressure is within the normal range. EKG Data: Pacer interrogation 04/03/2019: DDIR, lower rate 60 bpm. V paces 6%, A paces 3%. Frequently tachycardic, 100-120 >50%, increased since interogation 02/25/19. Telemetry reviewed; intermittently paced rate 60-70's underlying Afib.Known LBBB. Assessment/Plan #1 Newly found SHF; LVEF 20-25%. Etiology is likely due to AF with RVR. Per carelink transmission early this month mean HR 100 with rates going as high as 150's at times. s/p dig load. Dig level 04/06/2019 2.7. Digoxin decreased to .125mcg Q48 hours. She will need repeat level in 2 weeks to evaluate steady state. Rates are now controlled on telemetry. No RWMA on echo noted. No ACEI/ARB /Entresto due to acute on chronic renal failure. Continue IV bumex and transition to PO Bumex starting tomorrow. K+ 3.3 will replace. continue strict intake and output with daily weights. will convert Lopressor to Toprol for CHF guideline medical therapy #2 Perm Afib with poorly controlled ventricular rates. I spoke with outpatient device clinic, patient has had 100% Af burden since PPM implanted. Plan is AVN ablation given controlling her ventricular rates has been difficult. Her recent carelink transmit revealed AF with RVR( mean HR 100 with periods in 150's0. She is now on renal dose eliquis, amiodarone has been stopped and she is s/p dig load. Rates now controlled. I spoke with our practice and asked them to re arrange outpatient eval with EP Dr. sandoval. She would need to be optimized in regards to volume status and renal status prior to AVN ablation. #3 Acute on chronic renal failure. Creat improving with IV diuresis. #4 Troponin elevation; Patient denies chest pain. No RWMA noted on echo. Harrold to be related to above #1. Patient was decompensated upon admission with worsening renal function and transaminitis both of which has improved with diuresis. She has known CAD on ASA, statin and bblocker therapy. I doubt she needs additional cardiac testing but will confirm with Dr. Lees. Attending: Cash Lees <Cash Lees - Last Filed: 04/07/19 15:46> Medications Active Medications: Acetaminophen (Tylenol Tab*) 650 mg PO Q6H PRN PRN Reason: MILD PAIN or TEMP > 100.4 Last Admin: 04/03/19 01:03 Dose: 650 mg Apixaban (Eliquis*) 2.5 mg PO BID [facility] Last Admin: 04/07/19 08:24 Dose: 2.5 mg Aspirin (Aspirin Ec Tab*) 81 mg PO QAM [facility] Last Admin: 04/07/19 08:23 Dose: 81 mg Atorvastatin Calcium (Lipitor*) 20 mg PO DAILY [facility] Last Admin: 04/07/19 08:23 Dose: 20 mg Bumetanide (Bumex Tab*) 2 mg PO DAILY [facility] Cyanocobalamin (Vitamin B12 Tab*) 1,000 mcg PO QAM [facility] Last Admin: 04/07/19 08:24 Dose: 1,000 mcg Digoxin (Lanoxin Tab*) 0.125 mg PO Q48HR [facility] Last Admin: 04/07/19 08:09 Dose: Not Given Folic Acid (Folvite Tab*) 1 mg PO QAM [facility] Last Admin: 04/07/19 08:23 Dose: 1 mg Levothyroxine Sodium (Synthroid Tab*) 50 mcg PO DAILY@0600 [facility] Last Admin: 04/07/19 05:33 Dose: 50 mcg Metoprolol Succinate (Toprol Xl Tab*) 25 mg PO BID [facility] Nitroglycerin (Nitroglycerin Tab 0.4 Mg*) 0.4 mg SL Q5M PRN PRN Reason: ANGINA Ondansetron HCl (Zofran Inj*) 4 mg IV Q6H PRN PRN Reason: NAUSEA Pantoprazole Sodium (Protonix Tab*) 40 mg PO DAILY [facility] Last Admin: 04/07/19 08:24 Dose: 40 mg Potassium Chloride (Klor Con Er Tab*) 20 meq PO DAILY [facility] Objective Vital Signs: Temp Pulse Resp BP Pulse Ox 97.4 F 68 20 116/52 100 04/07/19 11:21 04/07/19 11:21 04/07/19 11:21 04/07/19 11:21 04/07/19 11:21 Laboratory Results: 04/07/19 05:13 04/07/19 05:13 INR (Anticoag Therapy) 2.08 (0.82-1.09) H 04/07/19 05:13 Total Bilirubin 0.90 mg/dL (0.2-1.0) 04/07/19 05:13 AST 44 U/L (13-39) H 04/07/19 05:13 ALT 95 U/L (7-52) H 04/07/19 05:13 Alkaline Phosphatase 78 U/L (34-104) 04/07/19 05:13 B-Natriuretic Peptide > 1300 pg/mL (<=100) H 04/02/19 15:47 Total Protein 5.0 g/dL (6.4-8.9) L 04/07/19 05:13 Albumin 3.0 g/dL (3.2-5.2) L 04/07/19 05:13 Globulin 2.0 g/dL (2-4) 04/07/19 05:13 Albumin/Globulin Ratio 1.5 (1-3) 04/07/19 05:13 TSH 3.76 mcIU/mL (0.34-5.60) 04/02/19 15:47 04/02/19 04/04/19 04/04/19 15:47 12:53 16:03 Troponin I 0.03 H* 0.04 H* 0.04 H* Assessment/Plan 04.07.2019 3:45 pm: pt seen and examined. d/w [employer] Cynthia Alejandro. Severe CMP/ CHF probably rate tachycardia related. A fib rx and HR control as outlined. Agree with current plan of care.
--- NOTE | 2019-04-07 19:30 | PN ---
Subjective Date of Service: 04/07/19 Interval History: Reports some improvement in dyspnea and feeling slightly better.Denies any complaints Family History: Unchanged from Admission Social History: Unchanged from Admission Past Medical History: Unchanged from Admission Objective Active Medications: Acetaminophen (Tylenol Tab*) 650 mg PO Q6H PRN PRN Reason: MILD PAIN or TEMP > 100.4 Last Admin: 04/03/19 01:03 Dose: 650 mg Apixaban (Eliquis*) 2.5 mg PO BID [facility] Last Admin: 04/07/19 08:24 Dose: 2.5 mg Aspirin (Aspirin Ec Tab*) 81 mg PO QAM [facility] Last Admin: 04/07/19 08:23 Dose: 81 mg Atorvastatin Calcium (Lipitor*) 20 mg PO DAILY [facility] Last Admin: 04/07/19 08:23 Dose: 20 mg Bumetanide (Bumex Tab*) 2 mg PO DAILY [facility] Cyanocobalamin (Vitamin B12 Tab*) 1,000 mcg PO QAM [facility] Last Admin: 04/07/19 08:24 Dose: 1,000 mcg Digoxin (Lanoxin Tab*) 0.125 mg PO Q48HR [facility] Last Admin: 04/07/19 08:09 Dose: Not Given Folic Acid (Folvite Tab*) 1 mg PO QAM [facility] Last Admin: 04/07/19 08:23 Dose: 1 mg Levothyroxine Sodium (Synthroid Tab*) 50 mcg PO DAILY@0600 [facility] Last Admin: 04/07/19 05:33 Dose: 50 mcg Metoprolol Succinate (Toprol Xl Tab*) 25 mg PO BID [facility] Nitroglycerin (Nitroglycerin Tab 0.4 Mg*) 0.4 mg SL Q5M PRN PRN Reason: ANGINA Ondansetron HCl (Zofran Inj*) 4 mg IV Q6H PRN PRN Reason: NAUSEA Pantoprazole Sodium (Protonix Tab*) 40 mg PO DAILY [facility] Last Admin: 04/07/19 08:24 Dose: 40 mg Potassium Chloride (Klor Con Er Tab*) 20 meq PO DAILY [facility] Vital Signs - 8 hr 04/07/19 04/07/19 15:15 18:55 Temperature 97.7 F 99.4 F Pulse Rate 70 75 Respiratory 16 16 Rate Blood Pressure 111/52 118/46 (mmHg) O2 Sat by Pulse 100 100 Oximetry Oxygen Devices in Use Now: Nasal Cannula Eyes: No Scleral Icterus Ears/Nose/Mouth/Throat: NL Teeth, Lips, Gums Neck: NL Appearance and Movements; NL JVP Respiratory: Symmetrical Chest Expansion and Respiratory Effort Cardiovascular: - - irreg irregular Abdominal: NL Sounds; No Tenderness; No Distention Extremities: No Edema Neurological: Alert and Oriented x 3 Result Diagrams: 04/07/19 05:13 04/07/19 05:13 Microbiology and Other Data: Microbiology 04/03/19 03:55 Urine Culture - Final Urine Escherichia Coli Assess/Plan/Problems-Billing Assessment: Patient is an 88yo female with a PMH for Afib, CAD, HFpEF, here with HF exacerbation, found to have newly decreased EF to 20-25% and Renal Failure. - Patient Problems (1) Heart failure with reduced ejection fraction Current Visit: Yes Status: Acute Code(s): I50.20 - UNSPECIFIED SYSTOLIC ( CONGESTIVE) HEART FAILURE SNOMED Code(s): 729848155 Comment: - New EF 20-25%. - Symptoms improving, low BP improving greatly - Unclear cause, differential includes Ischemia, Tachycardia, Viral, most likely tachycardia related - Likely cause of Renal Dysfunction from Fluid overload and poor forward flow in setting of CRS. - Diurese acutely, when approaching euvolemia, start ACEI and Spirnolactone, consider ARNI at some point if able. - LBBB worsened from previous exam, may need resynchronization pacer at some point. - Intermittent diuresis as tolerated by BP. Increase IV Bumex to 2mg IV BID -Transition to PO tomorrow -Appreciate cardiology input (2) Acute on chronic kidney failure Current Visit: No Status: Acute Code(s): N17.9 - ACUTE KIDNEY FAILURE, UNSPECIFIED; N18.9 - CHRONIC KIDNEY DISEASE, UNSPECIFIED SNOMED Code(s): 745603108 Comment: - Baseline 1.8, now improving fro peak of 3.4 - Likely due to Cardiorenal, clinically hypervolemic - Diurese as tolerated by BP. (3) Aortic stenosis Current Visit: No Status: Acute Priority: High Code(s): I35.0 - NONRHEUMATIC AORTIC (VALVE) STENOSIS SNOMED Code(s): 34596387 Comment: - S/P valve replacement which is functioning. (4) Atrial fibrillation Current Visit: No Status: Acute Code(s): I48.91 - UNSPECIFIED ATRIAL FIBRILLATION SNOMED Code(s): 34662406 Comment: - Chronic since pacer in January 2019 - HR around 100 that whole time per pacer interrrogations - Stop amio, was on 400mg daily - On renal dose Eliquis - F/U electrophysiology when stable for likely AV lisa ablation and possible resynchronization - May be done outpatient - Dig Load for HR, start .125mg every other day - Improved rate control. (5) Coronary artery disease Current Visit: No Status: Acute Code(s): I25.10 - ATHSCL HEART DISEASE OF [place] CORONARY ARTERY W/O ANG PCTRS SNOMED Code(s): 22392616 Comment: - Continue aspirin, atorvastatin - Elevated trop from HF exacerbation - S/P stent, Recent stress test. ? if OK in interim, but not most likely cause of HFrEF - Resumed Metoprolol as BB withdrawal may have percipitated Angina. (6) Full code status Current Visit: No Status: Acute Code(s): Z78.9 - OTHER SPECIFIED HEALTH STATUS SNOMED Code(s): 850463791 Comment: (7) HLD (hyperlipidemia) Current Visit: No Status: Acute Code(s): E78.5 - HYPERLIPIDEMIA, UNSPECIFIED SNOMED Code(s): 54494022 Comment: - Continue atorvastatin. Status and Disposition: Inpatient, Discharge when stable.
[2019-04-07] MEDS: Acetaminophen TAB* 325 MG PO PRN (20:37)
[2019-04-07] MEDS ORDERED: Metoprolol Succinate XL TAB* 25 MG PO SCH (21:00)
[2019-04-08] MEDS: Levothyroxine TAB* 50 MCG TAB PO SCH (05:19)
[2019-04-08 07:12] LABS: ABS Eosinophils 0.1 10^3/ul (0-0.6); ABS Lymphocytes 0.8 10^3/ul (1.0-4.8); ABS Monocytes 0.8 10^3/ul (0-0.8); ABS Neutrophils 4.3 10^3/ul (1.5-7.7); Eosinophil % 1.9 %; Hematocrit 33 % (35-47); Hemoglobin 11.2 g/dL (12.0-16.0); Lymphocyte % 13.9 %; Mean Corpuscular HGB Conc 34 g/dL (31-36); Mean Corpuscular Hemoglobin 35 pg (27-31); Mean Corpuscular Volume 103 fL (80-97); Mean Platelet Volume 6.8 fL (7.4-10.4); Platelet Count 105 10^3/uL (150-450); Red Blood Count 3.25 10^6 /uL (3.70-4.87); Red Cell Distribution Width 17 % (10-15); White Blood Count 6.1 10^3/uL (3.5-10.8)
[2019-04-08 07:29] LABS: Albumin 3.2 g/dL (3.2-5.2); Albumin/Globulin Ratio 1.5 (1-3); BUN/Creatinine Ratio 18.9 (8-20); Calcium 8.3 mg/dL (8.6-10.3); EGFR African American 29.1 (>60); EGFR Non-African American 24.1 (>60); Globulin 2.1 g/dL (2-4); Potassium 3.7 mmol/L (3.5-5.0); Total Bilirubin 0.9 mg/dL (0.2-1.0); Total Protein 5.3 g/dL (6.4-8.9)
[2019-04-08] MEDS ORDERED: Potassium Chlor TAB* 20 MEQ TAB.ER PO ONE (08:12)
[2019-04-08 08:26] LABS: Magnesium 1.8 mg/dL (1.9-2.7)
--- NOTE | 2019-04-08 08:30 | PN ---
<FlaviaErmelinda - Last Filed: 04/08/19 08:24> Subjective Date of Service: 04/08/19 - Afib, CHF, renal failure Interval History: f/u afib, chf Heart rates improved s/p digoxin Patient diuresed well. IV Bumex to be converted to PO today. Physical therapy has been evaluating patient. She reports berathing has improved but is still on supplemental o2?. no c/o chest pain, dizziness, palpitations. Medications Active Medications: Acetaminophen (Tylenol Tab*) 650 mg PO Q6H PRN PRN Reason: MILD PAIN or TEMP > 100.4 Last Admin: 04/07/19 20:37 Dose: 650 mg Apixaban (Eliquis*) 2.5 mg PO BID [facility] Last Admin: 04/07/19 20:37 Dose: 2.5 mg Aspirin (Aspirin Ec Tab*) 81 mg PO QAM [facility] Last Admin: 04/07/19 08:23 Dose: 81 mg Atorvastatin Calcium (Lipitor*) 20 mg PO DAILY [facility] Last Admin: 04/07/19 08:23 Dose: 20 mg Bumetanide (Bumex Tab*) 2 mg PO DAILY [facility] Cyanocobalamin (Vitamin B12 Tab*) 1,000 mcg PO QAM [facility] Last Admin: 04/07/19 08:24 Dose: 1,000 mcg Digoxin (Lanoxin Tab*) 0.125 mg PO Q48HR [facility] Last Admin: 04/07/19 08:09 Dose: Not Given Folic Acid (Folvite Tab*) 1 mg PO QAM [facility] Last Admin: 04/07/19 08:23 Dose: 1 mg Levothyroxine Sodium (Synthroid Tab*) 50 mcg PO DAILY@0600 [facility] Last Admin: 04/08/19 05:19 Dose: 50 mcg Metoprolol Succinate (Toprol Xl Tab*) 25 mg PO BID [facility] Last Admin: 04/07/19 20:38 Dose: 25 mg Nitroglycerin (Nitroglycerin Tab 0.4 Mg*) 0.4 mg SL Q5M PRN PRN Reason: ANGINA Ondansetron HCl (Zofran Inj*) 4 mg IV Q6H PRN PRN Reason: NAUSEA Potassium Chloride (Klor Con Er Tab*) 20 meq PO DAILY [facility] Objective Vital Signs: Temp Pulse Resp BP Pulse Ox 98.2 F 69 18 116/46 100 04/08/19 03:40 04/08/19 03:40 04/08/19 03:40 04/08/19 03:40 04/08/19 03:40 Oxygen Devices in Use Now: Nasal Cannula Appearance: nad, pleasant, appears weak lying in bed. Eyes: No Scleral Icterus Ears/Nose/Mouth/Throat: NL Teeth, Lips, Gums, Clear Oropharnyx Neck: Trachea Midline, - - uncertain jvp Respiratory: - - slight rales in left base. Cardiovascular: - - irregularly irregular, no signifcant murmur, pacemaker site intact Abdominal: - - Abdominal sounds heard in chest, obese, poss ascites, no appreciable HSM/no pulsitile liver. Extremities: No Edema, No Clubbing, Cyanosis, - Skin: No Rash or Ulcers Neurological: Alert and Oriented x 3 - follows commands, moves in bed independently. Lines/Tubes/Other Access: Clean, Dry and Intact Peripheral IV Laboratory Results: 04/08/19 07:06 04/08/19 07:06 INR (Anticoag Therapy) 2.08 (0.82-1.09) H 04/07/19 05:13 Total Bilirubin 0.90 mg/dL (0.2-1.0) 04/08/19 07:06 AST 38 U/L (13-39) 04/08/19 07:06 ALT 79 U/L (7-52) H 04/08/19 07:06 Alkaline Phosphatase 79 U/L (34-104) 04/08/19 07:06 B-Natriuretic Peptide > 1300 pg/mL (<=100) H 04/02/19 15:47 Total Protein 5.3 g/dL (6.4-8.9) L 04/08/19 07:06 Albumin 3.2 g/dL (3.2-5.2) 04/08/19 07:06 Globulin 2.1 g/dL (2-4) 04/08/19 07:06 Albumin/Globulin Ratio 1.5 (1-3) 04/08/19 07:06 TSH 3.76 mcIU/mL (0.34-5.60) 04/02/19 15:47 04/02/19 04/04/19 04/04/19 15:47 12:53 16:03 Troponin I 0.03 H* 0.04 H* 0.04 H* Laboratory Results - last 24 hr 04/07/19 04/08/19 04/08/19 05:09 07:06 07:06 WBC 6.1 RBC 3.25 L Hgb 11.2 L Hct 33 L MCV 103 H MCH 35 H MCHC 34 RDW 17 H Plt Count 105 L MPV 6.8 L Neut % (Auto) 71.0 Lymph % (Auto) 13.9 [place] % (Auto) 12.7 Eos % (Auto) 1.9 Baso % (Auto) 0.5 Absolute Neuts (auto) 4.3 Absolute Lymphs (auto) 0.8 L Absolute Monos (auto) 0.8 Absolute Eos (auto) 0.1 Absolute Basos (auto) 0.0 Absolute Nucleated RBC 0.0 Nucleated RBC % 0.0 Sodium 140 Potassium 3.7 Chloride 100 L Carbon Dioxide 32 Anion Gap 8 BUN 37 H Creatinine 1.96 H Est GFR ( Amer) 29.1 Est GFR (Non-Af Amer) 24.1 BUN/Creatinine Ratio 18.9 Glucose 104 H Calcium 8.3 L Magnesium 1.8 L Total Bilirubin 0.90 AST 38 ALT 79 H Alkaline Phosphatase 79 Total Protein 5.3 L Albumin 3.2 Globulin 2.1 Albumin/Globulin Ratio 1.5 Digoxin 1.9 Diagnostic Imaging: Transthoracic Echocardiogram Patient: Veronica Sherwood : 1930 Study Date: 04/03/2019 Findings Left ventricle: The cavity size is at the upper limits of normal. Wall thickness is mildly increased. Systolic function is moderately to severely reduced. The estimated ejection fraction is 20-25%. Diffuse hypokinesis with regional variations. Basal segments are best preserved, Right ventricle: The cavity size is normal. Pacer wire noted in the right ventricle. Systolic function is low normal. Left atrium: The atrium is severely dilated. Right atrium: The atrium is severely dilated. Pacer wire noted in right atrium. Mitral valve: The Mitral valve annulus appears calcified. The leaflets are mildly calcified. The findings are consistent with mild stenosis. There is mild to moderate regurgitation. Aortic valve: There is a bioprosthetic valve. The leaflets are normal thickness. Mobility is not restricted. There is no significant regurgitation. Tricuspid valve: The leaflets are normal thickness. There is no evidence of stenosis. There is moderate-severe regurgitation. Pulmonic valve: The leaflets are normal thickness. There is no evidence of stenosis. There is trace regurgitation. Aorta: Aortic root: The aortic root is appears normal. Aortic arch: The aortic arch is poorly visualized. Pericardium: There is no significant pericardial effusion. There is a pleural effusion. Pulmonary arteries: Systolic pressure is within the normal range. EKG Data: Pacer interrogation 04/03/2019: DDIR, lower rate 60 bpm. V paces 6%, A paces 3%. Frequently tachycardic, 100-120 >50%, increased since interogation 02/25/19. Telemetry reviewed; rate 60-70's underlying Afib.Known LBBB. Assessment/Plan #1 Perm AF; Presented with decompensated newly found SHF in the setting of poor rate control. She is s/p Dig load. Dig level normal today, it was 2.7 2019. It appears with minimal activity this morning (eating) her heart rate increased to 80-120. As a result will increase Toprol to 37.5mg PO BID. Continue digoxin .125mcg EOD, we may need to increase this depending upon response to increased dose of Toprol. Continue renal dose Eliquis. #2 Newly found SHF; LVEF 20-25%. No RWMA. Likely due to above #1. Presented with volume overload with hepatic congestion and cardiorenal involvement. Liver function and renal function have improved and are near baseline with IV diuresis. Breathing is near baseline. She does not wear o2 at home, thus I have asked PT today to ambulate her off of O2 to determine if she will need O2 upon discharge. Bumex 2mg/day to be started today. K+ 3.7 will replace with 40 MEQ K -Dur. will increase Toprol to 37.5 mg Po BID. NO ACEI/ARB/Entresto at this time due to renal function and need to optimize bblocker for above #1. #3 CKD; creat improving with diuresis. creat is 1.96 which is near baseline. On Bumex 2mg/day. Presented with acute on chronic renal failure due to above #2. #4 Minimal troponin elevation. Troponin was plateaued at .04 during hospitalization likely due to above #2. There was no RWMA noted on echo. Denies chest pain. On ASA, statin and bblocker therapy. #5 Disposition pending course. I contacted PT to assess as to whether or not patient needs O2 upon discharge( needs to be ambulated off of oxygen to determine if she qualifies). Toprol increased to 37.5mg Po BID. continue Dig .125mcg EOD, Dig level is now normal. will re assess rates on higher dose Toprol later today. Will d/w Dr. Thompson. Does not need antiarrythmic therapy given she has perm AF. goal is eventual AVN ablation. I have contacted our office and asked them to re arrange consult with Dr. Cedeño. Attending: Conchita Thompson <Conchita Thompson - Last Filed: 04/08/19 15:07> Subjective Interval History: Per pt and daughter more fatigue today, but increased activity walking in room. Medications Active Medications: Acetaminophen (Tylenol Tab*) 650 mg PO Q6H PRN PRN Reason: MILD PAIN or TEMP > 100.4 Last Admin: 04/07/19 20:37 Dose: 650 mg Apixaban (Eliquis*) 2.5 mg PO BID [facility] Last Admin: 04/08/19 08:49 Dose: 2.5 mg Aspirin ([facility]in Ec Tab*) [facility] [place] Last Admin: 04/08/19 08:49 Dose: 81 mg Atorvastatin Calcium (Lipitor*) 20 mg PO DAILY [facility] Last Admin: 04/08/19 08:49 Dose: 20 mg Bumetanide (Bumex Tab*) 2 mg PO DAILY [facility] Last Admin: 04/08/19 08:49 Dose: 2 mg Cyanocobalamin (Vitamin B12 Tab*) 1,000 mcg PO QAM [facility] Last Admin: 04/08/19 08:48 Dose: 1,000 mcg Digoxin (Lanoxin Tab*) 0.125 mg PO Q48HR [facility] Last Admin: 04/07/19 08:09 Dose: Not Given Folic Acid (Folvite Tab*) 1 mg PO QAM [facility] Last Admin: 04/08/19 08:48 Dose: 1 mg Levothyroxine Sodium (Synthroid Tab*) 50 mcg PO DAILY@0600 [facility] Last Admin: 04/08/19 05:19 Dose: 50 mcg Metoprolol Succinate (Toprol Xl Tab*) 37.5 mg PO BID [facility] Last Admin: 04/08/19 08:44 Dose: 37.5 mg Nitroglycerin (Nitroglycerin Tab 0.4 Mg*) 0.4 mg SL Q5M PRN PRN Reason: ANGINA Ondansetron HCl (Zofran Inj*) 4 mg IV Q6H PRN PRN Reason: NAUSEA Potassium Chloride (Klor Con Er Tab*) 20 meq PO DAILY [facility] Last Admin: 04/08/19 08:48 Dose: 20 meq Objective Vital Signs: Temp Pulse Resp BP Pulse Ox 97.5 F 101 20 114/59 99 04/08/19 12:24 04/08/19 12:24 04/08/19 12:24 04/08/19 12:24 04/08/19 12:24 Laboratory Results: 04/08/19 07:06 04/08/19 07:06 INR (Anticoag Therapy) 2.08 (0.82-1.09) H 04/07/19 05:13 Total Bilirubin 0.90 mg/dL (0.2-1.0) 04/08/19 07:06 AST 38 U/L (13-39) 04/08/19 07:06 ALT 79 U/L (7-52) H 04/08/19 07:06 Alkaline Phosphatase 79 U/L (34-104) 04/08/19 07:06 B-Natriuretic Peptide > 1300 pg/mL (<=100) H 04/02/19 15:47 Total Protein 5.3 g/dL (6.4-8.9) L 04/08/19 07:06 Albumin 3.2 g/dL (3.2-5.2) 04/08/19 07:06 Globulin 2.1 g/dL (2-4) 04/08/19 07:06 Albumin/Globulin Ratio 1.5 (1-3) 04/08/19 07:06 TSH 3.76 mcIU/mL (0.34-5.60) 04/02/19 15:47 04/02/19 04/04/19 04/04/19 15:47 12:53 16:03 Troponin I 0.03 H* 0.04 H* 0.04 H* Assessment/Plan I saw and examined the patient personally today. Diminished BS bases, no longer tachypnic talking. 88 yo female with persistent AF, RVR, LBBB, new drop in EF to 25% Comorbidities include: CKD, AVR, CAD, obese, HTN, chol, thyroid, OA, anemia. Patient improving with diuresis (bumex) and rate control responded to digoxen and resuming BB. As above, liver and renal failure improved with diuresis and rate control. I agree with the above recommendations and plan.
[2019-04-08] MEDS: Metoprolol Succinate XL TAB* 25 MG PO SCH ×2 (08:44→20:57)
[2019-04-08] MEDS: Folic Acid TAB* 1 MG PO SCH (08:48)
[2019-04-08] MEDS: Potassium Chlor TAB* 10 MEQ TAB.ER PO SCH (08:48)
[2019-04-08] MEDS: Cyanocobalamin TAB* 500 MCG PO SCH (08:48)
[2019-04-08] MEDS: Atorvastatin* 20 MG TAB PO SCH (08:49)
[2019-04-08] MEDS: Aspirin EC TAB* 81 MG TAB.EC PO SCH (08:49)
[2019-04-08] MEDS: Apixaban* 2.5 MG TAB PO SCH ×2 (08:49→20:57)
[2019-04-08] MEDS: Bumetanide TAB* 2 MG PO SCH (08:49)
[2019-04-08] MEDS ORDERED: Magnesium Sulfate 2 GM IV* 2 GM/50 ML BAG IVPB ONE (11:47)
--- NOTE | 2019-04-08 16:20 | PN ---
Subjective Date of Service: 04/08/19 Interval History: Sitting in bed on assessment. Reports mild shortness of breath with some exertion, but reports it is improving. Denies other complaints. Family History: Unchanged from Admission Social History: Unchanged from Admission Past Medical History: Unchanged from Admission Objective Active Medications: Acetaminophen (Tylenol Tab*) 650 mg PO Q6H PRN PRN Reason: MILD PAIN or TEMP > 100.4 Last Admin: 04/07/19 20:37 Dose: 650 mg Apixaban (Eliquis*) 2.5 mg PO BID [facility] Last Admin: 04/08/19 08:49 Dose: 2.5 mg Aspirin (Aspirin Ec Tab*) 81 mg PO QAM [facility] Last Admin: 04/08/19 08:49 Dose: 81 mg Atorvastatin Calcium (Lipitor*) 20 mg PO DAILY [facility] Last Admin: 04/08/19 08:49 Dose: 20 mg Bumetanide (Bumex Tab*) 2 mg PO DAILY [facility] Last Admin: 04/08/19 08:49 Dose: 2 mg Cyanocobalamin (Vitamin B12 Tab*) 1,000 mcg PO QAM [facility] Last Admin: 04/08/19 08:48 Dose: 1,000 mcg Digoxin (Lanoxin Tab*) 0.125 mg PO Q48HR [facility] Last Admin: 04/07/19 08:09 Dose: Not Given Folic Acid (Folvite Tab*) [facility] [place] Last Admin: 04/08/19 08:48 Dose: 1 mg Levothyroxine Sodium (Synthroid Tab*) 50 mcg PO DAILY@0600 [facility] Last Admin: 04/08/19 05:19 Dose: 50 mcg Metoprolol Succinate (Toprol Xl Tab*) 37.5 mg PO BID [facility] Last Admin: 04/08/19 08:44 Dose: 37.5 mg Nitroglycerin (Nitroglycerin Tab 0.4 Mg*) 0.4 mg SL Q5M PRN PRN Reason: ANGINA Ondansetron HCl (Zofran Inj*) 4 mg IV Q6H PRN PRN Reason: NAUSEA Potassium Chloride (Klor Con Er Tab*) 20 meq PO DAILY [facility] Last Admin: 04/08/19 08:48 Dose: 20 meq Vital Signs - 8 hr 04/08/19 04/08/19 08:45 12:24 Temperature 97.5 F Pulse Rate 101 Respiratory 20 Rate Blood Pressure 120/70 114/59 (mmHg) O2 Sat by Pulse 92 99 Oximetry Oxygen Devices in Use Now: Nasal Cannula Appearance: Comfortable, NAD Eyes: No Scleral Icterus Ears/Nose/Mouth/Throat: Mucous Membranes Moist Neck: NL Appearance and Movements; NL JVP Respiratory: Symmetrical Chest Expansion and Respiratory Effort, Clear to Auscultation Cardiovascular: NL Sounds; No Murmurs; No JVD, No Edema Abdominal: NL Sounds; No Tenderness; No Distention Lymphatic: No Cervical Adenopathy Extremities: No Edema Skin: No Rash or Ulcers Neurological: Alert and Oriented x 3 Nutrition: Taking PO's Result Diagrams: 04/08/19 07:06 04/08/19 07:06 Additional Lab and Data: Laboratory Results - last 24 hr 04/08/19 04/08/19 07:06 07:06 WBC 6.1 RBC 3.25 L Hgb 11.2 L Hct 33 L MCV 103 H MCH 35 H MCHC 34 RDW 17 H Plt Count 105 L MPV 6.8 L Neut % (Auto) 71.0 Lymph % (Auto) 13.9 [place] % (Auto) 12.7 Eos % (Auto) 1.9 Baso % (Auto) 0.5 Absolute Neuts (auto) 4.3 Absolute Lymphs (auto) 0.8 L Absolute Monos (auto) 0.8 Absolute Eos (auto) 0.1 Absolute Basos (auto) 0.0 Absolute Nucleated RBC 0.0 Nucleated RBC % 0.0 Sodium 140 Potassium 3.7 Chloride 100 L Carbon Dioxide 32 Anion Gap 8 BUN 37 H Creatinine 1.96 H Est GFR ( Amer) 29.1 Est GFR (Non-Af Amer) 24.1 BUN/Creatinine Ratio 18.9 Glucose 104 H Calcium 8.3 L Magnesium 1.8 L Total Bilirubin 0.90 AST 38 ALT 79 H Alkaline Phosphatase 79 Total Protein 5.3 L Albumin 3.2 Globulin 2.1 Albumin/Globulin Ratio 1.5 Microbiology and Other Data: Microbiology 04/03/19 03:55 Urine Urine Culture - Final Escherichia Coli Assess/Plan/Problems-Billing Assessment: Patient is an 88yo female with a PMH for Afib, CAD, HFpEF, here with HF exacerbation, found to have newly decreased EF to 20-25% and Renal Failure. - Patient Problems (1) Heart failure with reduced ejection fraction Comment: - Continue to have some shortness of breath but reports it is improving. - New EF 20-25%. - Cardiology following - Was on Bumex IV, but will be transitioned to PO by cardiology. - Per cardiology no SCARLETT/ARB at this time due to renal function - EP as outpatient - Currently on Digoxin and Tropol (which was increased today by cardiology) (2) Acute on chronic kidney failure Comment: - Today 1.96 much improved from peak of 3.46 (3) Aortic stenosis Comment: - Stable - S/P valve replacement which is functioning. (4) Atrial fibrillation Comment: - Perm AF - Was previously on amio - On renal dose Eliquis - F/U electrophysiology when stable - Dig Load for HR. Currently on 0.125mg every other day - Tropol increased today by cardiology - Mag and K low and replacement ordered by cardiology (5) Coronary artery disease Comment: - Continue aspirin, atorvastatin, BB - Elevated trop from HF exacerbation (6) HLD (hyperlipidemia) Comment: - Continue atorvastatin. (7) Full code status Comment: Status and Disposition: Inpatient, Discharge when stable.
[2019-04-09] MEDS: Levothyroxine TAB* 50 MCG TAB PO SCH (05:48)
[2019-04-09 06:08] LABS: ABS Eosinophils 0.1 10^3/ul (0-0.6); ABS Lymphocytes 0.8 10^3/ul (1.0-4.8); ABS Monocytes 0.8 10^3/ul (0-0.8); ABS Neutrophils 4.3 10^3/ul (1.5-7.7); Eosinophil % 1.6 %; Hematocrit 33 % (35-47); Hemoglobin 10.8 g/dL (12.0-16.0); Lymphocyte % 12.9 %; Mean Corpuscular HGB Conc 33 g/dL (31-36); Mean Corpuscular Hemoglobin 34 pg (27-31); Mean Corpuscular Volume 104 fL (80-97); Mean Platelet Volume 7.4 fL (7.4-10.4); Platelet Count 109 10^3/uL (150-450); Red Blood Count 3.19 10^6 /uL (3.70-4.87); Red Cell Distribution Width 17 % (10-15)
[2019-04-09 06:22] LABS: Calcium 8.2 mg/dL (8.6-10.3); EGFR African American 33.9 (>60); Magnesium 2.1 mg/dL (1.9-2.7); Potassium 3.8 mmol/L (3.5-5.0)
[2019-04-09] MEDS: Cyanocobalamin TAB* 500 MCG PO SCH (08:16)
[2019-04-09] MEDS: Bumetanide TAB* 2 MG PO SCH (08:24)
[2019-04-09] MEDS: Atorvastatin* 20 MG TAB PO SCH (08:24)
[2019-04-09] MEDS: Digoxin TAB* 0.125 MG PO SCH (08:24)
[2019-04-09] MEDS: Aspirin EC TAB* 81 MG TAB.EC PO SCH (08:24)
[2019-04-09] MEDS: Metoprolol Succinate XL TAB* 25 MG PO SCH (08:25)
[2019-04-09] MEDS: Potassium Chlor TAB* 10 MEQ TAB.ER PO SCH (08:25)
[2019-04-09] MEDS: Apixaban* 2.5 MG TAB PO SCH ×2 (08:26→20:13)
[2019-04-09] MEDS: Folic Acid TAB* 1 MG PO SCH (08:26)
[2019-04-09] MEDS ORDERED: Metoprolol Succinate XL TAB* 25 MG PO ONE (11:20)
--- NOTE | 2019-04-09 11:28 | PN ---
Subjective Date of Service: 04/09/19 Interval History: f/u chf/crs, afib sitting up feels ok overall has been ambulating afib rate controlled at rest, elevated with exertion Medications Active Medications: Acetaminophen (Tylenol Tab*) 650 mg PO Q6H PRN PRN Reason: MILD PAIN or TEMP > 100.4 Last Admin: 04/07/19 20:37 Dose: 650 mg Apixaban (Eliquis*) 2.5 mg PO BID [facility] Last Admin: 04/09/19 08:26 Dose: 2.5 mg Aspirin (Aspirin Ec Tab*) 81 mg PO QAM [facility] Last Admin: 04/09/19 08:24 Dose: 81 mg Atorvastatin Calcium (Lipitor*) 20 mg PO DAILY [facility] Last Admin: 04/09/19 08:24 Dose: 20 mg Bumetanide (Bumex Tab*) 2 mg PO DAILY [facility] Last Admin: 04/09/19 08:24 Dose: 2 mg Cyanocobalamin (Vitamin B12 Tab*) [facility] [place] Last Admin: 04/09/19 08:16 Dose: 1,000 mcg Digoxin (Lanoxin Tab*) 0.125 mg PO Q48HR [facility] Last Admin: 04/09/19 08:24 Dose: 0.125 mg Folic Acid (Folvite Tab*) 1 mg PO [facility] Last Admin: 04/09/19 08:26 Dose: 1 mg Levothyroxine Sodium (Synthroid Tab*) 50 mcg PO DAILY@0600 [facility] Last Admin: 04/09/19 05:48 Dose: 50 mcg Metoprolol Succinate (Toprol Xl Tab*) 50 mg PO BID [facility] Metoprolol Succinate (Toprol Xl Tab*) 12.5 mg PO ONCE ONE Stop: 04/09/19 11:21 Nitroglycerin (Nitroglycerin Tab 0.4 Mg*) 0.4 mg SL Q5M PRN PRN Reason: ANGINA Ondansetron HCl (Zofran Inj*) 4 mg IV Q6H PRN PRN Reason: NAUSEA Potassium Chloride (Klor Con Er Tab*) 20 meq PO DAILY [facility] Last Admin: 04/09/19 08:25 Dose: 20 meq Objective Vital Signs: Temp Pulse Resp BP Pulse Ox 97.3 F 70 18 120/57 94 04/09/19 07:32 04/09/19 07:32 04/09/19 08:00 04/09/19 07:32 04/09/19 08:00 Oxygen Devices in Use Now: Nasal Cannula Appearance: nad, elderly and frail Eyes: No Scleral Icterus Ears/Nose/Mouth/Throat: Clear Oropharnyx Neck: Trachea Midline, - - uncertain jvp Respiratory: Symmetrical Chest Expansion and Respiratory Effort, Clear to Auscultation, - Cardiovascular: - - irregularly irregular, no signifcant murmur, pacemaker site intact Abdominal: - - soft Extremities: No Edema, No Clubbing, Cyanosis, - - wraps in pace Skin: No Rash or Ulcers Neurological: Alert and Oriented x 3 - follows commands, moves in bed independently. Lines/Tubes/Other Access: Clean, Dry and Intact Peripheral IV Laboratory Results: 04/09/19 05:42 04/09/19 05:42 INR (Anticoag Therapy) 2.08 (0.82-1.09) H 04/07/19 05:13 Total Bilirubin 0.90 mg/dL (0.2-1.0) 04/08/19 07:06 AST 38 U/L (13-39) 04/08/19 07:06 ALT 79 U/L (7-52) H 04/08/19 07:06 Alkaline Phosphatase 79 U/L (34-104) 04/08/19 07:06 B-Natriuretic Peptide > 1300 pg/mL (<=100) H 04/02/19 15:47 Total Protein 5.3 g/dL (6.4-8.9) L 04/08/19 07:06 Albumin 3.2 g/dL (3.2-5.2) 04/08/19 07:06 Globulin 2.1 g/dL (2-4) 04/08/19 07:06 Albumin/Globulin Ratio 1.5 (1-3) 04/08/19 07:06 TSH 3.76 mcIU/mL (0.34-5.60) 04/02/19 15:47 04/02/19 04/04/19 04/04/19 15:47 12:53 16:03 Troponin I 0.03 H* 0.04 H* 0.04 H* Diagnostic Imaging: Transthoracic Echocardiogram Study Date: 04/03/2019 Findings Left ventricle: The cavity size is at the upper limits of normal. Wall thickness is mildly increased. Systolic function is moderately to severely reduced. The estimated ejection fraction is 20-25%. Diffuse hypokinesis with regional variations. Basal segments are best preserved, Right ventricle: The cavity size is normal. Pacer wire noted in the right ventricle. Systolic function is low normal. Left atrium: The atrium is severely dilated. Right atrium: The atrium is severely dilated. Pacer wire noted in right atrium. Mitral valve: The Mitral valve annulus appears calcified. The leaflets are mildly calcified. The findings are consistent with mild stenosis. There is mild to moderate regurgitation. Aortic valve: There is a bioprosthetic valve. The leaflets are normal thickness. Mobility is not restricted. There is no significant regurgitation. Tricuspid valve: The leaflets are normal thickness. There is no evidence of stenosis. There is moderate-severe regurgitation. Pulmonic valve: The leaflets are normal thickness. There is no evidence of stenosis. There is trace regurgitation. Aorta: Aortic root: The aortic root is appears normal. Aortic arch: The aortic arch is poorly visualized. Pericardium: There is no significant pericardial effusion. There is a pleural effusion. Pulmonary arteries: Systolic pressure is within the normal range. Assessment/Plan 88 yo woman admitted with CAD s/p PCI, admitted new onset acute systolic HF exacerbation/CRS likely related to uncontrolled atrial fibrillation heart rates. rates controlled, diuresed and improved, also with LBBB - Continue diuretics - Continue digoxin as ordered, needs steady state level in several weeks - Increase toprol to 50 mg po bid (ordered) - May need rate control adjustments as outpatient as amiodarone clears from system - Can recheck an echo in the future after several weeks or months of rate control to re-evaluate LVEF
--- NOTE | 2019-04-09 15:39 | PN ---
Subjective Date of Service: 04/09/19 Interval History: Sitting in chair on assessment with daughter at bedside. Reports no sob with rest. Reports sob with exertion is improving. Denies cp, lightheadedness, abd pain, nausea, vomiting. Discussed discharge plan at length and patient is agreeable to rehab. Family History: Unchanged from Admission Social History: Unchanged from Admission Past Medical History: Unchanged from Admission Objective Active Medications: Acetaminophen (Tylenol Tab*) 650 mg PO Q6H PRN PRN Reason: MILD PAIN or TEMP > 100.4 Last Admin: 04/07/19 20:37 Dose: 650 mg Apixaban (Eliquis*) 2.5 mg PO BID [facility] Last Admin: 04/09/19 08:26 Dose: 2.5 mg Aspirin (Aspirin Ec Tab*) 81 mg PO QAM [facility] Last Admin: 04/09/19 08:24 Dose: 81 mg Atorvastatin Calcium (Lipitor*) 20 mg PO DAILY [facility] Last Admin: 04/09/19 08:24 Dose: 20 mg Bumetanide (Bumex Tab*) 2 mg PO DAILY [facility] Last Admin: 04/09/19 08:24 Dose: 2 mg Cyanocobalamin (Vitamin B12 Tab*) 1,000 mcg PO QAM [facility] Last Admin: 04/09/19 08:16 Dose: 1,000 mcg Digoxin (Lanoxin Tab*) 0.125 mg PO Q48HR [facility] Last Admin: 04/09/19 08:24 Dose: 0.125 mg Folic Acid (Folvite Tab*) 1 mg PO QAM [facility] Last Admin: 04/09/19 08:26 Dose: 1 mg Levothyroxine Sodium (Synthroid Tab*) 50 mcg PO DAILY@0600 [facility] Last Admin: 04/09/19 05:48 Dose: 50 mcg Metoprolol Succinate (Toprol Xl Tab*) 50 mg PO BID [facility] Nitroglycerin (Nitroglycerin Tab 0.4 Mg*) 0.4 mg SL Q5M PRN PRN Reason: ANGINA Ondansetron HCl (Zofran Inj*) 4 mg IV Q6H PRN PRN Reason: NAUSEA Potassium Chloride (Klor Con Er Tab*) 20 meq PO DAILY [facility] Last Admin: 04/09/19 08:25 Dose: 20 meq Vital Signs - 8 hr 04/09/19 04/09/19 08:00 15:05 Temperature 97.3 F Pulse Rate 57 Respiratory 18 20 Rate Blood Pressure 130/66 (mmHg) O2 Sat by Pulse 94 97 Oximetry Oxygen Devices in Use Now: None Appearance: Comfortable, NAD Eyes: No Scleral Icterus Ears/Nose/Mouth/Throat: Clear Oropharnyx, Mucous Membranes Moist Neck: NL Appearance and Movements; NL JVP Respiratory: Symmetrical Chest Expansion and Respiratory Effort, Clear to Auscultation Cardiovascular: NL Sounds; No Murmurs; No JVD, - - Bilateral legs wrapped Abdominal: NL Sounds; No Tenderness; No Distention Lymphatic: No Cervical Adenopathy Extremities: No Clubbing, Cyanosis Skin: No Rash or Ulcers Neurological: Alert and Oriented x 3, NL Muscle Strength and Tone Nutrition: Taking PO's Result Diagrams: 04/09/19 05:42 04/09/19 05:42 Additional Lab and Data: Laboratory Results - last 24 hr 04/09/19 04/09/19 05:42 05:42 WBC 6.0 RBC 3.19 L Hgb 10.8 L Hct 33 L MCV 104 H MCH 34 H MCHC 33 RDW 17 H Plt Count 109 L MPV 7.4 Neut % (Auto) 72.2 Lymph % (Auto) 12.9 [place] % (Auto) 12.6 Eos % (Auto) 1.6 Baso % (Auto) 0.7 Absolute Neuts (auto) 4.3 Absolute Lymphs (auto) 0.8 L Absolute Monos (auto) 0.8 Absolute Eos (auto) 0.1 Absolute Basos (auto) 0.0 Absolute Nucleated RBC 0.0 Nucleated RBC % 0.0 Sodium 143 Potassium 3.8 Chloride 101 Carbon Dioxide 37 H Anion Gap 5 BUN 31 H Creatinine 1.72 H Est GFR ( Amer) 33.9 Est GFR (Non-Af Amer) 28.0 BUN/Creatinine Ratio 18.0 Glucose 112 H Calcium 8.2 L Magnesium 2.1 Microbiology and Other Data: Microbiology 04/03/19 03:55 Urine Urine Culture - Final Escherichia Coli Assess/Plan/Problems-Billing Assessment: Patient is an 88yo female with a PMH for Afib, CAD, HFpEF, here with HF exacerbation, found to have newly decreased EF to 20-25% and Renal Failure. - Patient Problems (1) Heart failure with reduced ejection fraction Comment: - Reports sob is improving. - New EF 20-25%. - Cardiology following - Bumex, Digoxin, Metoprolol, Eliquis, Potassium, ASA - Per cardiology no SCARLETT/ARB at this time due to renal function - EP as outpatient (2) Acute on chronic kidney failure Comment: - Today 1.72 much improved from peak of 3.46 (3) Aortic stenosis Comment: - Stable - S/P valve replacement which is functioning. (4) Atrial fibrillation Comment: - Perm AF - Was previously on amio - On renal dose Eliquis - F/U electrophysiology when stable - Dig Load for HR. Currently on 0.125mg every other day - Tropol fpr rate control (5) Coronary artery disease Comment: - Continue aspirin, atorvastatin, BB - Elevated trop from HF exacerbation (6) HLD (hyperlipidemia) Comment: - Continue atorvastatin. (7) Full code status Comment: Status and Disposition: Inpatient, Discharge when stable.
[2019-04-09] MEDS: Metoprolol Succinate XL TAB* 50 MG PO SCH (20:13)
[2019-04-09] MEDS: Acetaminophen TAB* 325 MG PO PRN (20:14)
[2019-04-10] MEDS: Levothyroxine TAB* 50 MCG TAB PO SCH (06:00)
[2019-04-10] MEDS: Potassium Chlor TAB* 10 MEQ TAB.ER PO SCH (08:38)
[2019-04-10] MEDS: Metoprolol Succinate XL TAB* 50 MG PO SCH ×2 (08:39→20:34)
[2019-04-10] MEDS: Apixaban* 2.5 MG TAB PO SCH ×2 (08:39→20:34)
[2019-04-10] MEDS: Aspirin EC TAB* 81 MG TAB.EC PO SCH (08:39)
[2019-04-10] MEDS: Atorvastatin* 20 MG TAB PO SCH (08:39)
[2019-04-10] MEDS: Folic Acid TAB* 1 MG PO SCH (08:40)
[2019-04-10] MEDS: Bumetanide TAB* 2 MG PO SCH (08:40)
[2019-04-10] MEDS: Cyanocobalamin TAB* 500 MCG PO SCH (08:40)
--- NOTE | 2019-04-10 08:48 | PN ---
Subjective Date of Service: 04/10/19 Interval History: f/u chf/crs, afib frustrated can't go home breathing is good HR controlled feels weak tele rate controlled afib Medications Active Medications: Acetaminophen (Tylenol Tab*) 650 mg PO Q6H PRN PRN Reason: MILD PAIN or TEMP > 100.4 Last Admin: 04/09/19 20:14 Dose: 650 mg Apixaban (Eliquis*) 2.5 mg PO BID [facility] Last Admin: 04/10/19 08:39 Dose: 2.5 mg Aspirin (Aspirin Ec Tab*) 81 mg PO QAM [facility] Last Admin: 04/10/19 08:39 Dose: 81 mg Atorvastatin Calcium (Lipitor*) 20 mg PO DAILY [facility] Last Admin: 04/10/19 08:39 Dose: 20 mg Bumetanide (Bumex Tab*) 2 mg PO DAILY [facility] Last Admin: 04/10/19 08:40 Dose: 2 mg Cyanocobalamin (Vitamin B12 Tab*) 1,000 mcg PO [facility] Last Admin: 04/10/19 08:40 Dose: 1,000 mcg Digoxin (Lanoxin Tab*) 0.125 mg PO Q48HR [facility] Last Admin: 04/09/19 08:24 Dose: 0.125 mg Folic Acid (Folvite Tab*) 1 mg PO [facility] Last Admin: 04/10/19 08:40 Dose: 1 mg Levothyroxine Sodium (Synthroid Tab*) 50 mcg PO DAILY@0600 [facility] Last Admin: 04/10/19 06:00 Dose: 50 mcg Metoprolol Succinate (Toprol Xl Tab*) 50 mg PO BID [facility] Last Admin: 04/10/19 08:39 Dose: 50 mg Nitroglycerin (Nitroglycerin Tab 0.4 Mg*) 0.4 mg SL Q5M PRN PRN Reason: ANGINA Ondansetron HCl (Zofran Inj*) 4 mg IV Q6H PRN PRN Reason: NAUSEA Potassium Chloride (Klor Con Er Tab*) 20 meq PO DAILY [facility] Last Admin: 04/10/19 08:38 Dose: 20 meq Objective Vital Signs: Temp Pulse Resp BP Pulse Ox 97.3 F 80 24 120/65 96 04/10/19 08:24 04/10/19 08:24 04/10/19 08:24 04/10/19 08:24 04/10/19 08:24 Oxygen Devices in Use Now: None Appearance: nad, elderly and frail Eyes: No Scleral Icterus Ears/Nose/Mouth/Throat: Clear Oropharnyx Neck: Trachea Midline, - - uncertain jvp Respiratory: Symmetrical Chest Expansion and Respiratory Effort, Clear to Auscultation Cardiovascular: - - irregularly irregular, no signifcant murmur, pacemaker site intact Abdominal: - - soft Extremities: No Edema, No Clubbing, Cyanosis, - - wraps in pace Skin: No Rash or Ulcers Neurological: Alert and Oriented x 3 - follows commands, moves in bed independently. Lines/Tubes/Other Access: Clean, Dry and Intact Peripheral IV Laboratory Results: 04/09/19 05:42 04/09/19 05:42 INR (Anticoag Therapy) 2.08 (0.82-1.09) H 04/07/19 05:13 Total Bilirubin 0.90 mg/dL (0.2-1.0) 04/08/19 07:06 AST 38 U/L (13-39) 04/08/19 07:06 ALT 79 U/L (7-52) H 04/08/19 07:06 Alkaline Phosphatase 79 U/L (34-104) 04/08/19 07:06 B-Natriuretic Peptide > 1300 pg/mL (<=100) H 04/02/19 15:47 Total Protein 5.3 g/dL (6.4-8.9) L 04/08/19 07:06 Albumin 3.2 g/dL (3.2-5.2) 04/08/19 07:06 Globulin 2.1 g/dL (2-4) 04/08/19 07:06 Albumin/Globulin Ratio 1.5 (1-3) 04/08/19 07:06 TSH 3.76 mcIU/mL (0.34-5.60) 04/02/19 15:47 04/02/19 04/04/19 04/04/19 15:47 12:53 16:03 Troponin I 0.03 H* 0.04 H* 0.04 H* Diagnostic Imaging: Transthoracic Echocardiogram Study Date: 04/03/2019 Findings Left ventricle: The cavity size is at the upper limits of normal. Wall thickness is mildly increased. Systolic function is moderately to severely reduced. The estimated ejection fraction is 20-25%. Diffuse hypokinesis with regional variations. Basal segments are best preserved, Right ventricle: The cavity size is normal. Pacer wire noted in the right ventricle. Systolic function is low normal. Left atrium: The atrium is severely dilated. Right atrium: The atrium is severely dilated. Pacer wire noted in right atrium. Mitral valve: The Mitral valve annulus appears calcified. The leaflets are mildly calcified. The findings are consistent with mild stenosis. There is mild to moderate regurgitation. Aortic valve: There is a bioprosthetic valve. The leaflets are normal thickness. Mobility is not restricted. There is no significant regurgitation. Tricuspid valve: The leaflets are normal thickness. There is no evidence of stenosis. There is moderate-severe regurgitation. Pulmonic valve: The leaflets are normal thickness. There is no evidence of stenosis. There is trace regurgitation. Aorta: Aortic root: The aortic root is appears normal. Aortic arch: The aortic arch is poorly visualized. Pericardium: There is no significant pericardial effusion. There is a pleural effusion. Pulmonary arteries: Systolic pressure is within the normal range. Assessment/Plan 88 yo woman admitted with CAD s/p PCI, admitted new onset acute systolic HF exacerbation/CRS likely related to uncontrolled atrial fibrillation heart rates. rates controlled, diuresed and improved, also with LBBB - Continue diuretics - Continue digoxin as ordered, needs steady state level in several weeks - Continue toprol 50 mg po bid - May need rate control adjustments as outpatient as amiodarone clears from system - Can recheck an echo in the future after several weeks or months of rate control to re-evaluate LVEF
[2019-04-10] MEDS: Docusate CAP* 100 MG PO PRN (11:21)
--- NOTE | 2019-04-10 17:18 | PN ---
Subjective Date of Service: 04/10/19 Interval History: Resting in bed on assessment. Reports sob has improved. Denies cp, palpitations , dizziness, nausea, vomiting. Family History: Unchanged from Admission Social History: Unchanged from Admission Past Medical History: Unchanged from Admission Objective Active Medications: Acetaminophen (Tylenol Tab*) 650 mg PO Q6H PRN PRN Reason: MILD PAIN or TEMP > 100.4 Last Admin: 04/09/19 20:14 Dose: 650 mg Apixaban (Eliquis*) 2.5 mg PO BID [facility] Last Admin: 04/10/19 08:39 Dose: 2.5 mg Aspirin (Aspirin Ec Tab*) 81 mg PO QAM [facility] Last Admin: 04/10/19 08:39 Dose: 81 mg Atorvastatin Calcium (Lipitor*) 20 mg PO DAILY [facility] Last Admin: 04/10/19 08:39 Dose: 20 mg Bumetanide (Bumex Tab*) 2 mg PO DAILY [facility] Last Admin: 04/10/19 08:40 Dose: 2 mg Cyanocobalamin (Vitamin B12 Tab*) [facility] Last Admin: 04/10/19 08:40 Dose: 1,000 mcg Digoxin (Lanoxin Tab*) 0.125 mg PO Q48HR [facility] Last Admin: 04/09/19 08:24 Dose: 0.125 mg Docusate Sodium (Colace Cap*) 100 mg PO DAILY PRN PRN Reason: CONSTIPATION Last Admin: 04/10/19 11:21 Dose: 100 mg Folic Acid (Folvite [facility]*) [facility] [place] Last Admin: 04/10/19 08:40 Dose: 1 mg Levothyroxine Sodium (Synthroid Tab*) 50 mcg PO DAILY@0600 [facility] Last Admin: 04/10/19 06:00 Dose: 50 mcg Metoprolol Succinate (Toprol Xl Tab*) 50 mg PO BID [facility] Last Admin: 04/10/19 08:39 Dose: 50 mg Nitroglycerin (Nitroglycerin Tab 0.4 Mg*) 0.4 mg SL Q5M PRN PRN Reason: ANGINA Ondansetron HCl (Zofran Inj*) 4 mg IV Q6H PRN PRN Reason: NAUSEA Potassium Chloride (Klor Con Er Tab*) 20 meq PO DAILY [facility] Last Admin: 04/10/19 08:38 Dose: 20 meq Vital Signs - 8 hr 04/10/19 04/10/19 11:44 15:15 Temperature 97.3 F 97.2 F Pulse Rate 78 69 Respiratory 24 24 Rate Blood Pressure 130/72 117/67 (mmHg) O2 Sat by Pulse 78 96 Oximetry Oxygen Devices in Use Now: None Appearance: Comfortable, NAD Eyes: No Scleral Icterus Ears/Nose/Mouth/Throat: Clear Oropharnyx, Mucous Membranes Moist Neck: NL Appearance and Movements; NL JVP Respiratory: Symmetrical Chest Expansion and Respiratory Effort, Clear to Auscultation Cardiovascular: NL Sounds; No Murmurs; No JVD, No Edema Abdominal: NL Sounds; No Tenderness; No Distention Lymphatic: No Cervical Adenopathy Skin: No Rash or Ulcers Neurological: Alert and Oriented x 3, NL Muscle Strength and Tone Nutrition: Taking PO's Result Diagrams: 04/09/19 05:42 04/09/19 05:42 Additional Lab and Data: . Microbiology and Other Data: Microbiology 04/03/19 03:55 Urine Urine Culture - Final Escherichia Coli Assess/Plan/Problems-Billing Assessment: Patient is an 88yo female with a PMH for Afib, CAD, HFpEF, here with HF exacerbation, found to have newly decreased EF to 20-25% and Renal Failure. - Patient Problems (1) Heart failure with reduced ejection fraction Comment: - SOB improved. No longer requiring supplemental o2 - New EF 20-25%. - Cardiology following - Bumex, Digoxin, Metoprolol, Eliquis, Potassium, ASA - Per cardiology no SCARLETT/ARB at this time due to renal function - EP as outpatient (2) Acute on chronic kidney failure Comment: - Stable (3) Aortic stenosis Comment: - Stable - S/P valve replacement which is functioning. (4) Atrial fibrillation Comment: - Afib/Paced on tele - Perm AF - Was previously on amio - On renal dose Eliquis - F/U electrophysiology when stable - Dig 0.125mg every other day - Tropol for rate control (5) Coronary artery disease Comment: - Continue aspirin, atorvastatin, BB - Elevated trop on admission from HF exacerbation (6) HLD (hyperlipidemia) Comment: - Continue atorvastatin. (7) Full code status Comment: Status and Disposition: Inpatient, Discharge to [facility] Attending: Corey Martin
[2019-04-10] MEDS: Acetaminophen TAB* 325 MG PO PRN (20:34)
[2019-04-11] MEDS: Levothyroxine TAB* 50 MCG TAB PO SCH (05:16)
[2019-04-11 06:25] LABS: ABS Eosinophils 0.1 10^3/ul (0-0.6); ABS Monocytes 0.7 10^3/ul (0-0.8); ABS Neutrophils 3.5 10^3/ul (1.5-7.7); Eosinophil % 1.2 %; Hematocrit 32 % (35-47); Hemoglobin 10.3 g/dL (12.0-16.0); Lymphocyte % 18.6 %; Mean Corpuscular HGB Conc 33 g/dL (31-36); Mean Corpuscular Hemoglobin 34 pg (27-31); Mean Corpuscular Volume 103 fL (80-97); Mean Platelet Volume 7.4 fL (7.4-10.4); Platelet Count 105 10^3/uL (150-450); Red Blood Count 3.06 10^6 /uL (3.70-4.87); Red Cell Distribution Width 16 % (10-15); White Blood Count 5.3 10^3/uL (3.5-10.8)
[2019-04-11 06:42] LABS: Calcium 8.2 mg/dL (8.6-10.3); EGFR African American 37.3 (>60); EGFR Non-African American 30.9 (>60); Magnesium 1.9 mg/dL (1.9-2.7); Potassium 3.9 mmol/L (3.5-5.0)
[2019-04-11] MEDS ORDERED: Magnesium Oxide TAB* 400 MG PO ONE (07:37)
[2019-04-11] MEDS: Cyanocobalamin TAB* 500 MCG PO SCH (09:32)
[2019-04-11] MEDS: Aspirin EC TAB* 81 MG TAB.EC PO SCH (09:32)
[2019-04-11] MEDS: Apixaban* 2.5 MG TAB PO SCH ×2 (09:33→20:44)
[2019-04-11] MEDS: Atorvastatin* 20 MG TAB PO SCH (09:33)
[2019-04-11] MEDS: Metoprolol Succinate XL TAB* 50 MG PO SCH ×2 (09:33→20:43)
[2019-04-11] MEDS: Folic Acid TAB* 1 MG PO SCH (09:33)
[2019-04-11] MEDS: Potassium Chlor TAB* 10 MEQ TAB.ER PO SCH (09:33)
[2019-04-11] MEDS: Bumetanide TAB* 2 MG PO SCH (09:33)
[2019-04-11] MEDS: Digoxin TAB* 0.125 MG PO SCH (10:42)
--- NOTE | 2019-04-11 15:12 | PN ---
Subjective Date of Service: 04/11/19 Interval History: f/u chf/crs, afib frustrated can't go home breathing is good HR controlled feels weak tele rate controlled afib Medications Active Medications: Acetaminophen (Tylenol Tab*) 650 mg PO Q6H PRN PRN Reason: MILD PAIN or TEMP > 100.4 Last Admin: 04/10/19 20:34 Dose: 650 mg Apixaban (Eliquis*) 2.5 mg PO BID [facility] Last Admin: 04/11/19 09:33 Dose: 2.5 mg [facility]irin ([facility]in Ec Tab*) [facility] Last Admin: 04/11/19 09:32 Dose: 81 mg Atorvastatin Calcium (Lipitor*) 20 mg PO DAILY [facility] Last Admin: 04/11/19 09:33 Dose: 20 mg Bumetanide (Bumex Tab*) 2 mg PO DAILY [facility] Last Admin: 04/11/19 09:33 Dose: 2 mg Cyanocobalamin (Vitamin B12 Tab*) [facility] Last Admin: 04/11/19 09:32 Dose: 1,000 mcg Digoxin (Lanoxin Tab*) 0.125 mg PO Q48HR [facility] Last Admin: 04/11/19 10:42 Dose: 0.125 mg Docusate Sodium (Colace Cap*) 100 mg PO DAILY PRN PRN Reason: CONSTIPATION Last Admin: 04/10/19 11:21 Dose: 100 mg Folic Acid (Folvite Tab*) [facility] Last Admin: 04/11/19 09:33 Dose: 1 mg Levothyroxine Sodium (Synthroid Tab*) 50 mcg PO DAILY@0600 [facility] Last Admin: 04/11/19 05:16 Dose: 50 mcg Metoprolol Succinate (Toprol Xl Tab*) 50 mg PO BID [facility] Last Admin: 04/11/19 09:33 Dose: 50 mg Nitroglycerin (Nitroglycerin Tab 0.4 Mg*) 0.4 mg SL Q5M PRN PRN Reason: ANGINA Ondansetron HCl (Zofran Inj*) 4 mg IV Q6H PRN PRN Reason: NAUSEA Potassium Chloride (Klor Con Er Tab*) 20 meq PO DAILY [facility] Last Admin: 04/11/19 09:33 Dose: 20 meq Objective Vital Signs: Temp Pulse Resp BP Pulse Ox 97.6 F 68 22 110/68 98 04/11/19 11:15 04/11/19 11:15 04/11/19 11:15 04/11/19 11:15 04/11/19 11:15 Oxygen Devices in Use Now: Nasal Cannula Appearance: nad, elderly and frail Eyes: No Scleral Icterus Ears/Nose/Mouth/Throat: Clear Oropharnyx Neck: Trachea Midline, - - uncertain jvp Respiratory: Symmetrical Chest Expansion and Respiratory Effort, Clear to Auscultation Cardiovascular: - - irregularly irregular, no signifcant murmur, pacemaker site intact Abdominal: - - soft Extremities: No Edema, No Clubbing, Cyanosis, - - wraps in pace Skin: No Rash or Ulcers Neurological: Alert and Oriented x 3 - follows commands, moves in bed independently. Lines/Tubes/Other Access: Clean, Dry and Intact Peripheral IV Laboratory Results: 04/11/19 05:46 04/11/19 05:46 INR (Anticoag Therapy) 2.08 (0.82-1.09) H 04/07/19 05:13 Total Bilirubin 0.90 mg/dL (0.2-1.0) 04/08/19 07:06 AST 38 U/L (13-39) 04/08/19 07:06 ALT 79 U/L (7-52) H 04/08/19 07:06 Alkaline Phosphatase 79 U/L (34-104) 04/08/19 07:06 B-Natriuretic Peptide > 1300 pg/mL (<=100) H 04/02/19 15:47 Total Protein 5.3 g/dL (6.4-8.9) L 04/08/19 07:06 Albumin 3.2 g/dL (3.2-5.2) 04/08/19 07:06 Globulin 2.1 g/dL (2-4) 04/08/19 07:06 Albumin/Globulin Ratio 1.5 (1-3) 04/08/19 07:06 TSH 3.76 mcIU/mL (0.34-5.60) 04/02/19 15:47 04/02/19 04/04/19 04/04/19 15:47 12:53 16:03 Troponin I 0.03 H* 0.04 H* 0.04 H* Diagnostic Imaging: Transthoracic Echocardiogram Study Date: 04/03/2019 Findings Left ventricle: The cavity size is at the upper limits of normal. Wall thickness is mildly increased. Systolic function is moderately to severely reduced. The estimated ejection fraction is 20-25%. Diffuse hypokinesis with regional variations. Basal segments are best preserved, Right ventricle: The cavity size is normal. Pacer wire noted in the right ventricle. Systolic function is low normal. Left atrium: The atrium is severely dilated. Right atrium: The atrium is severely dilated. Pacer wire noted in right atrium. Mitral valve: The Mitral valve annulus appears calcified. The leaflets are mildly calcified. The findings are consistent with mild stenosis. There is mild to moderate regurgitation. Aortic valve: There is a bioprosthetic valve. The leaflets are normal thickness. Mobility is not restricted. There is no significant regurgitation. Tricuspid valve: The leaflets are normal thickness. There is no evidence of stenosis. There is moderate-severe regurgitation. Pulmonic valve: The leaflets are normal thickness. There is no evidence of stenosis. There is trace regurgitation. Aorta: Aortic root: The aortic root is appears normal. Aortic arch: The aortic arch is poorly visualized. Pericardium: There is no significant pericardial effusion. There is a pleural effusion. Pulmonary arteries: Systolic pressure is within the normal range. EKG Data: Pacer interrogation 04/03/2019: DDIR, lower rate 60 bpm. V paces 6%, A paces 3%. Frequently tachycardic, 100-120 >50%, increased since interogation 02/25/19. Telemetry reviewed; rate 60-70's underlying Afib.Known LBBB. Assessment/Plan 88 yo woman admitted with CAD s/p PCI, admitted new onset acute systolic HF exacerbation/CRS likely related to uncontrolled atrial fibrillation heart rates. rates controlled, diuresed and improved, also with LBBB - Continue diuretics - Continue digoxin as ordered, needs steady state level in several weeks - Continue toprol 50 mg po bid - May need rate control adjustments as outpatient as amiodarone clears from system - Can recheck an echo in the future after several weeks or months of rate control to re-evaluate LVEF
--- NOTE | 2019-04-11 15:16 | PN ---
Subjective Date of Service: 04/11/19 Interval History: f/u chf/crs, afib resting comfortably, no complaints 02 sats 80's overnight renal function continues to improve afib rates controlled Medications Active Medications: Acetaminophen (Tylenol Tab*) 650 mg PO Q6H PRN PRN Reason: MILD PAIN or TEMP > 100.4 Last Admin: 04/10/19 20:34 Dose: 650 mg Apixaban (Eliquis*) 2.5 mg PO BID [facility] Last Admin: 04/11/19 09:33 Dose: 2.5 mg Aspirin (Aspirin Ec Tab*) 81 mg PO QAM [facility] Last Admin: 04/11/19 09:32 Dose: 81 mg Atorvastatin Calcium (Lipitor*) 20 mg PO DAILY [facility] Last Admin: 04/11/19 09:33 Dose: 20 mg Bumetanide (Bumex Tab*) 2 mg PO DAILY [facility] Last Admin: 04/11/19 09:33 Dose: 2 mg Cyanocobalamin (Vitamin B12 Tab*) [facility] [place] Last Admin: 04/11/19 09:32 Dose: 1,000 mcg Digoxin (Lanoxin Tab*) 0.125 mg PO Q48HR [facility] Last Admin: 04/11/19 10:42 Dose: 0.125 mg Docusate Sodium (Colace Cap*) 100 mg PO DAILY PRN PRN Reason: CONSTIPATION Last Admin: 04/10/19 11:21 Dose: 100 mg Folic Acid (Folvite Tab*) [facility] [place] Last Admin: 04/11/19 09:33 Dose: 1 mg Levothyroxine Sodium (Synthroid Tab*) 50 mcg PO DAILY@0600 [facility] Last Admin: 04/11/19 05:16 Dose: 50 mcg Metoprolol Succinate (Toprol Xl Tab*) 50 mg PO BID [facility] Last Admin: 04/11/19 09:33 Dose: 50 mg Nitroglycerin (Nitroglycerin Tab 0.4 Mg*) 0.4 mg SL Q5M PRN PRN Reason: ANGINA Ondansetron HCl (Zofran Inj*) 4 mg IV Q6H PRN PRN Reason: NAUSEA Potassium Chloride (Klor Con Er Tab*) 20 meq PO DAILY [facility] Last Admin: 04/11/19 09:33 Dose: 20 meq Objective Vital Signs: Temp Pulse Resp BP Pulse Ox 97.6 F 68 22 110/68 98 04/11/19 11:15 04/11/19 11:15 04/11/19 11:15 04/11/19 11:15 04/11/19 11:15 Oxygen Devices in Use Now: Nasal Cannula Appearance: nad, elderly and frail Eyes: No Scleral Icterus Ears/Nose/Mouth/Throat: Clear Oropharnyx Neck: Trachea Midline, - - uncertain jvp Respiratory: Symmetrical Chest Expansion and Respiratory Effort, Clear to Auscultation Cardiovascular: - - irregularly irregular, no signifcant murmur, pacemaker site intact Abdominal: - - soft Extremities: No Edema, No Clubbing, Cyanosis, - - wraps in pace Skin: No Rash or Ulcers Neurological: Alert and Oriented x 3 - follows commands, moves in bed independently. Lines/Tubes/Other Access: Clean, Dry and Intact Peripheral IV Laboratory Results: 04/11/19 05:46 04/11/19 05:46 INR (Anticoag Therapy) 2.08 (0.82-1.09) H 04/07/19 05:13 Total Bilirubin 0.90 mg/dL (0.2-1.0) 04/08/19 07:06 AST 38 U/L (13-39) 04/08/19 07:06 ALT 79 U/L (7-52) H 04/08/19 07:06 Alkaline Phosphatase 79 U/L (34-104) 04/08/19 07:06 B-Natriuretic Peptide > 1300 pg/mL (<=100) H 04/02/19 15:47 Total Protein 5.3 g/dL (6.4-8.9) L 04/08/19 07:06 Albumin 3.2 g/dL (3.2-5.2) 04/08/19 07:06 Globulin 2.1 g/dL (2-4) 04/08/19 07:06 Albumin/Globulin Ratio 1.5 (1-3) 04/08/19 07:06 TSH 3.76 mcIU/mL (0.34-5.60) 04/02/19 15:47 04/02/19 04/04/19 04/04/19 15:47 12:53 16:03 Troponin I 0.03 H* 0.04 H* 0.04 H* Diagnostic Imaging: Transthoracic Echocardiogram Study Date: 04/03/2019 Findings Left ventricle: The cavity size is at the upper limits of normal. Wall thickness is mildly increased. Systolic function is moderately to severely reduced. The estimated ejection fraction is 20-25%. Diffuse hypokinesis with regional variations. Basal segments are best preserved, Right ventricle: The cavity size is normal. Pacer wire noted in the right ventricle. Systolic function is low normal. Left atrium: The atrium is severely dilated. Right atrium: The atrium is severely dilated. Pacer wire noted in right atrium. Mitral valve: The Mitral valve annulus appears calcified. The leaflets are mildly calcified. The findings are consistent with mild stenosis. There is mild to moderate regurgitation. Aortic valve: There is a bioprosthetic valve. The leaflets are normal thickness. Mobility is not restricted. There is no significant regurgitation. Tricuspid valve: The leaflets are normal thickness. There is no evidence of stenosis. There is moderate-severe regurgitation. Pulmonic valve: The leaflets are normal thickness. There is no evidence of stenosis. There is trace regurgitation. Aorta: Aortic root: The aortic root is appears normal. Aortic arch: The aortic arch is poorly visualized. Pericardium: There is no significant pericardial effusion. There is a pleural effusion. Pulmonary arteries: Systolic pressure is within the normal range. EKG Data: Pacer interrogation 04/03/2019: DDIR, lower rate 60 bpm. V paces 6%, A paces 3%. Frequently tachycardic, 100-120 >50%, increased since interogation 02/25/19. Telemetry reviewed; rate 60-70's underlying Afib.Known LBBB. Assessment/Plan 88 yo woman admitted with CAD s/p PCI, admitted new onset acute systolic HF exacerbation/CRS likely related to uncontrolled atrial fibrillation heart rates. rates controlled, diuresed and improved, also with LBBB - Continue diuretics - Continue digoxin as ordered, needs steady state level in several weeks - Continue toprol 50 mg po bid - May need rate control adjustments as outpatient as amiodarone clears from system - Can recheck an echo in the future after several weeks or months of rate control to re-evaluate LVEF - Plan for [facility] Saturday
--- NOTE | 2019-04-11 15:17 | PN ---
Subjective Date of Service: 04/11/19 Interval History: Resting in bed with family at bedside. Reports she feels slightly more sob today , but overall still improving. Denies cp, palpitations, nausea, vomiting, diarrhea. Family History: Unchanged from Admission Social History: Unchanged from Admission Past Medical History: Unchanged from Admission Objective Active Medications: Acetaminophen (Tylenol Tab*) 650 mg PO Q6H PRN PRN Reason: MILD PAIN or TEMP > 100.4 Last Admin: 04/10/19 20:34 Dose: 650 mg Apixaban (Eliquis*) 2.5 mg PO BID [facility] Last Admin: 04/11/19 09:33 Dose: 2.5 mg [facility]irin ([facility]in Ec Tab*) [facility] [place] Admin: 04/11/19 09:32 Dose: 81 mg Atorvastatin Calcium (Lipitor*) 20 mg PO DAILY [facility] Last Admin: 04/11/19 09:33 Dose: 20 mg Bumetanide (Bumex Tab*) 2 mg PO DAILY [facility] Last Admin: 04/11/19 09:33 Dose: 2 mg Cyanocobalamin (Vitamin B12 Tab*) 1,000 mcg PO QAM [facility] Last Admin: 04/11/19 09:32 Dose: 1,000 mcg Digoxin (Lanoxin Tab*) 0.125 mg PO Q48HR [facility] Last Admin: 04/11/19 10:42 Dose: 0.125 mg Docusate Sodium (Colace Cap*) 100 mg PO DAILY PRN PRN Reason: CONSTIPATION Last Admin: 04/10/19 11:21 Dose: 100 mg Folic Acid (Folvite Tab*) [facility] [place] Admin: 04/11/19 09:33 Dose: 1 mg Levothyroxine Sodium (Synthroid Tab*) 50 mcg PO DAILY@0600 [facility] Last Admin: 04/11/19 05:16 Dose: 50 mcg Metoprolol Succinate (Toprol Xl Tab*) 50 mg PO BID [facility] Last Admin: 04/11/19 09:33 Dose: 50 mg Nitroglycerin (Nitroglycerin Tab 0.4 Mg*) 0.4 mg SL Q5M PRN PRN Reason: ANGINA Ondansetron HCl (Zofran Inj*) 4 mg IV Q6H PRN PRN Reason: NAUSEA Potassium Chloride (Klor Con Er Tab*) 20 meq PO DAILY [facility] Last Admin: 04/11/19 09:33 Dose: 20 meq Vital Signs - 8 hr 04/11/19 04/11/19 04/11/19 07:15 10:42 11:15 Temperature 97.3 F 97.6 F Pulse Rate 63 66 68 Respiratory 18 22 Rate Blood Pressure 125/57 110/68 (mmHg) O2 Sat by Pulse 99 98 Oximetry Oxygen Devices in Use Now: Nasal Cannula Appearance: Comfortable, NAD Eyes: No Scleral Icterus Ears/Nose/Mouth/Throat: Clear Oropharnyx, Mucous Membranes Moist Neck: NL Appearance and Movements; NL JVP Respiratory: Symmetrical Chest Expansion and Respiratory Effort, Clear to Auscultation Cardiovascular: NL Sounds; No Murmurs; No JVD, No Edema Abdominal: NL Sounds; No Tenderness; No Distention Lymphatic: No Cervical Adenopathy Extremities: No Edema Skin: No Rash or Ulcers Neurological: Alert and Oriented x 3, NL Muscle Strength and Tone Nutrition: Taking PO's Result Diagrams: 04/11/19 05:46 04/11/19 05:46 Additional Lab and Data: Laboratory Results - last 24 hr 04/11/19 04/11/19 05:46 05:46 WBC 5.3 RBC 3.06 L Hgb 10.3 L Hct 32 L MCV 103 H MCH 34 H MCHC 33 RDW 16 H Plt Count 105 L MPV 7.4 Neut % (Auto) 66.5 Lymph % (Auto) 18.6 [place] % (Auto) 12.8 Eos % (Auto) 1.2 Baso % (Auto) 0.9 Absolute Neuts (auto) 3.5 Absolute Lymphs (auto) 1.0 Absolute Monos (auto) 0.7 Absolute Eos (auto) 0.1 Absolute Basos (auto) 0.0 Absolute Nucleated RBC 0.0 Nucleated RBC % 0.0 Sodium 141 Potassium 3.9 Chloride 101 Carbon Dioxide 35 H Anion Gap 5 BUN 30 H Creatinine 1.58 H Est GFR ( Amer) 37.3 Est GFR (Non-Af Amer) 30.9 BUN/Creatinine Ratio 19.0 Glucose 95 Calcium 8.2 L Magnesium 1.9 Microbiology and Other Data: Microbiology 04/03/19 03:55 Urine Urine Culture - Final Escherichia Coli Assess/Plan/Problems-Billing Assessment: Patient is an 88yo female with a PMH for Afib, CAD, HFpEF, here with HF exacerbation, found to have newly decreased EF to 20-25% and Renal Failure. - Patient Problems (1) Hypoxia Comment: - Patient reports mild increase in sob today compared to yesterday, but still overall improved. - Decreased oxygen saturation on room air last night documented by nurse. O2 dipped to mid 80s. Supplemental oxygen placed and saturation increased. - Order placed for resp therapy to monitor O2 overnight - In addition order placed to reassess ambulation with and without O2 - Appears euvolemic (2) Heart failure with reduced ejection fraction Comment: - See above - No s/s of fluid overload - New EF 20-25%. - Cardiology following - Bumex, Digoxin, Metoprolol, Eliquis, Potassium, ASA - Per cardiology no SCARLETT/ARB at this time due to renal function - EP as outpatient (3) Acute on chronic kidney failure Comment: - 1.58 Creatinine - Stable. Near her baseline (4) Atrial fibrillation Comment: - No events on tele overnight - Afib/Paced on tele - Perm AF - Was previously on amio - On renal dose Eliquis - F/U electrophysiology when stable - Dig 0.125mg every other day - Tropol for rate control (5) Coronary artery disease Comment: - Continue aspirin, atorvastatin, BB - Elevated trop on admission from HF exacerbation (6) HLD (hyperlipidemia) Comment: - Continue atorvastatin. (7) Full code status Comment: Status and Disposition: Inpatient, Discharge to [facility] Attending: Kerline Garza
[2019-04-11] MEDS: Acetaminophen TAB* 325 MG PO PRN (20:43)
[2019-04-12 05:52] LABS: BUN/Creatinine Ratio 17.7 (8-20); Calcium 8.4 mg/dL (8.6-10.3); EGFR African American 37.3 (>60); EGFR Non-African American 30.9 (>60); Magnesium 1.9 mg/dL (1.9-2.7); Potassium 3.9 mmol/L (3.5-5.0)
[2019-04-12] MEDS: Levothyroxine TAB* 50 MCG TAB PO SCH (06:05)
[2019-04-12] MEDS: Potassium Chlor TAB* 10 MEQ TAB.ER PO SCH (09:08)
[2019-04-12] MEDS: Apixaban* 2.5 MG TAB PO SCH ×2 (09:08→20:09)
[2019-04-12] MEDS: Folic Acid TAB* 1 MG PO SCH (09:08)
[2019-04-12] MEDS: Aspirin EC TAB* 81 MG TAB.EC PO SCH (09:08)
[2019-04-12] MEDS: Metoprolol Succinate XL TAB* 50 MG PO SCH ×2 (09:08→20:08)
[2019-04-12] MEDS: Cyanocobalamin TAB* 500 MCG PO SCH (09:09)
[2019-04-12] MEDS: Atorvastatin* 20 MG TAB PO SCH (09:09)
[2019-04-12] MEDS: Bumetanide TAB* 2 MG PO SCH (09:09)
--- NOTE | 2019-04-12 09:18 | PN ---
Subjective Date of Service: 04/12/19 Interval History: f/u chf/crs, afib rates controlled breathing ok, has not been out of bed much no lightheadedness 02 being supplemented cxr still with effusions daughter at bedside Medications Active Medications: Acetaminophen (Tylenol Tab*) 650 mg PO Q6H PRN PRN Reason: MILD PAIN or TEMP > 100.4 Last Admin: 04/11/19 20:43 Dose: 650 mg Apixaban (Eliquis*) 2.5 mg PO BID [facility] Last Admin: 04/12/19 09:08 Dose: 2.5 mg Aspirin (Aspirin Ec Tab*) 81 mg PO QAM [facility] Last Admin: 04/12/19 09:08 Dose: 81 mg Atorvastatin Calcium (Lipitor*) 20 mg PO DAILY [facility] Last Admin: 04/12/19 09:09 Dose: 20 mg Bumetanide (Bumex Tab*) 2 mg PO DAILY [facility] Last Admin: 04/12/19 09:09 Dose: 2 mg Cyanocobalamin (Vitamin B12 Tab*) 1,000 mcg PO QAM [facility] Last Admin: 04/12/19 09:09 Dose: 1,000 mcg Digoxin (Lanoxin Tab*) 0.125 mg PO Q48HR [facility] Last Admin: 04/11/19 10:42 Dose: 0.125 mg Docusate Sodium (Colace Cap*) 100 mg PO DAILY PRN PRN Reason: CONSTIPATION Last Admin: 04/10/19 11:21 Dose: 100 mg Folic Acid (Folvite Tab*) 1 mg PO QAM [facility] Last Admin: 04/12/19 09:08 Dose: 1 mg Levothyroxine Sodium (Synthroid Tab*) 50 mcg PO DAILY@0600 [facility] Last Admin: 04/12/19 06:05 Dose: 50 mcg Metoprolol Succinate (Toprol Xl Tab*) 50 mg PO BID [facility] Last Admin: 04/12/19 09:08 Dose: 50 mg Nitroglycerin (Nitroglycerin Tab 0.4 Mg*) 0.4 mg SL Q5M PRN PRN Reason: ANGINA Ondansetron HCl (Zofran Inj*) 4 mg IV Q6H PRN PRN Reason: NAUSEA Potassium Chloride (Klor Con Er Tab*) 20 meq PO DAILY [facility] Last Admin: 04/12/19 09:08 Dose: 20 meq Objective Vital Signs: Temp Pulse Resp BP Pulse Ox 98.0 F 67 18 124/67 98 04/12/19 07:15 04/12/19 07:15 04/12/19 07:30 04/12/19 07:15 04/12/19 07:15 Oxygen Devices in Use Now: Nasal Cannula Appearance: nad, elderly and frail Eyes: No Scleral Icterus Ears/Nose/Mouth/Throat: Clear Oropharnyx Neck: Trachea Midline, - - uncertain jvp Respiratory: Symmetrical Chest Expansion and Respiratory Effort, - - crackles right base Cardiovascular: - - irregularly irregular, 1/6 murmur, pacemaker site intact Abdominal: - - soft Extremities: No Edema, No Clubbing, Cyanosis, - - wraps in pace Skin: No Rash or Ulcers Neurological: Alert and Oriented x 3 - follows commands, moves in bed independently. Lines/Tubes/Other Access: Clean, Dry and Intact Peripheral IV Laboratory Results: 04/11/19 05:46 04/12/19 05:15 INR (Anticoag Therapy) 2.08 (0.82-1.09) H 04/07/19 05:13 Total Bilirubin 0.90 mg/dL (0.2-1.0) 04/08/19 07:06 AST 38 U/L (13-39) 04/08/19 07:06 ALT 79 U/L (7-52) H 04/08/19 07:06 Alkaline Phosphatase 79 U/L (34-104) 04/08/19 07:06 B-Natriuretic Peptide > 1300 pg/mL (<=100) H 04/02/19 15:47 Total Protein 5.3 g/dL (6.4-8.9) L 04/08/19 07:06 Albumin 3.2 g/dL (3.2-5.2) 04/08/19 07:06 Globulin 2.1 g/dL (2-4) 04/08/19 07:06 Albumin/Globulin Ratio 1.5 (1-3) 04/08/19 07:06 TSH 3.76 mcIU/mL (0.34-5.60) 04/02/19 15:47 04/02/19 04/04/19 04/04/19 15:47 12:53 16:03 Troponin I 0.03 H* 0.04 H* 0.04 H* Assessment/Plan 88 yo woman admitted with CAD s/p PCI, admitted new onset acute systolic HF exacerbation/CRS likely related to uncontrolled atrial fibrillation heart rates. rates controlled, diuresed and improved, also with LBBB - Continue digoxin as ordered, needs steady state level in several weeks - Continue toprol 50 mg po bid - May need rate control adjustments as outpatient as amiodarone clears from system - Can recheck an echo in the future after several weeks or months of rate control to re-evaluate LVEF - continue 02 supplementation as needed - Still volume overloaded mildy, give another 2 mg IV bumex x 1 now in addition to oral 2 mg this AM with extra 20 meq k+ and increase bumex to 3 mg po daily tomorrow (ordered) - Plan for [facility] Saturday - Will sign off, please reconsult as needed
[2019-04-12] MEDS ORDERED: Bumetanide IV* 0.25 MG/ML 4 ML VIAL SLOW PUSH ONE (10:08)
[2019-04-12] MEDS ORDERED: Potassium Chlor TAB* 20 MEQ TAB.ER PO ONE (10:09)
--- NOTE | 2019-04-12 15:57 | PN ---
Subjective Date of Service: 04/12/19 Interval History: Discussed patient with RN. Per RN patient's reportedly was hypoxic last evening on room air and required supplemental O2. She also reports that patient has been needing supplemental O2 during the day today and RN was unsuccessful in weaning. Patient resting in bed on assessment and daughter at bedside. Patient reports sob is only slight. She has not been up out of bed much today. Reports she is tired. Denies cp, palpitations, nausea, vomiting. Family History: Unchanged from Admission Social History: Unchanged from Admission Past Medical History: Unchanged from Admission Objective Active Medications: Acetaminophen (Tylenol Tab*) 650 mg PO Q6H PRN PRN Reason: MILD PAIN or TEMP > 100.4 Last Admin: 04/11/19 20:43 Dose: 650 mg Apixaban (Eliquis*) 2.5 mg PO BID [facility] Last Admin: 04/12/19 09:08 Dose: 2.5 mg Aspirin (Aspirin Ec Tab*) 81 mg PO QAM [facility] Last Admin: 04/12/19 09:08 Dose: 81 mg Atorvastatin Calcium (Lipitor*) 20 mg PO DAILY [facility] Last Admin: 04/12/19 09:09 Dose: 20 mg Bumetanide (Bumex Tab*) 3 mg PO DAILY [facility] Cyanocobalamin (Vitamin B12 Tab*) 1,000 mcg PO QAM [facility] Last Admin: 04/12/19 09:09 Dose: 1,000 mcg Digoxin (Lanoxin Tab*) 0.125 mg PO Q48HR [facility] Last Admin: 04/11/19 10:42 Dose: 0.125 mg Docusate Sodium (Colace Cap*) 100 mg PO DAILY PRN PRN Reason: CONSTIPATION Last Admin: 04/10/19 11:21 Dose: 100 mg Folic Acid (Folvite Tab*) 1 mg PO QAM [facility] Last Admin: 04/12/19 09:08 Dose: 1 mg Levothyroxine Sodium (Synthroid Tab*) 50 mcg PO DAILY@0600 [facility] Last Admin: 04/12/19 06:05 Dose: 50 mcg Metoprolol Succinate (Toprol Xl Tab*) 50 mg PO BID [facility] Last Admin: 04/12/19 09:08 Dose: 50 mg Nitroglycerin (Nitroglycerin Tab 0.4 Mg*) 0.4 mg SL Q5M PRN PRN Reason: ANGINA Ondansetron HCl (Zofran Inj*) 4 mg IV Q6H PRN PRN Reason: NAUSEA Potassium Chloride (Klor Con Er Tab*) 20 meq PO DAILY [facility] Last Admin: 04/12/19 09:08 Dose: 20 meq Vital Signs - 8 hr 04/12/19 11:15 Temperature 97.6 F Pulse Rate 63 Respiratory 20 Rate Blood Pressure 114/57 (mmHg) O2 Sat by Pulse 99 Oximetry Oxygen Devices in Use Now: Nasal Cannula Appearance: Comfortable, NAD Eyes: No Scleral Icterus Ears/Nose/Mouth/Throat: Clear Oropharnyx, Mucous Membranes Moist Neck: NL Appearance and Movements; NL JVP Respiratory: Symmetrical Chest Expansion and Respiratory Effort, - - Lung bases diminished Abdominal: NL Sounds; No Tenderness; No Distention Extremities: No Edema Skin: No Rash or Ulcers Neurological: Alert and Oriented x 3, NL Muscle Strength and Tone Nutrition: Taking PO's Result Diagrams: 04/11/19 05:46 04/12/19 05:15 Additional Lab and Data: Laboratory Results - last 24 hr 04/12/19 05:15 Sodium 139 Potassium 3.9 Chloride 99 L Carbon Dioxide 38 H Anion Gap 2 BUN 28 H Creatinine 1.58 H Est GFR ( Amer) 37.3 Est GFR (Non-Af Amer) 30.9 BUN/Creatinine Ratio 17.7 Glucose 99 Calcium 8.4 L Magnesium 1.9 Microbiology and Other Data: . Assess/Plan/Problems-Billing Assessment: Patient is an 88yo female with a PMH for Afib, CAD, HFpEF, here with HF exacerbation, found to have newly decreased EF to 20-25% and Renal Failure. - Patient Problems (1) Heart failure with reduced ejection fraction Comment: - Volume overloaded. Diuretics ordered by cardiology. Bumex IV and increase in daily Bumex dosing - Requiring supplemental O2 again - Monitor electrolytes - New EF 20-25%. - Cardiology following - Bumex, Digoxin, Metoprolol, Eliquis, Potassium, ASA - Per cardiology no SCARLETT/ARB at this time due to renal function - EP as outpatient (2) Hypoxia Comment: - Per RN hypoxic overnight and unable to wean supplemental O2 during the day - Likely secondary to pulmonary edema (3) Acute on chronic kidney failure Comment: - 1.58 Creatinine - Stable. Near her baseline (4) Atrial fibrillation Comment: - No events on tele overnight - Afib/Paced on tele - Perm AF - Was previously on amio - On renal dose Eliquis - F/U electrophysiology when stable - Dig 0.125mg every other day - Tropol for rate control (5) Coronary artery disease Comment: - Continue aspirin, atorvastatin, BB - Elevated trop on admission from HF exacerbation (6) HLD (hyperlipidemia) Comment: - Continue atorvastatin. (7) Full code status Comment: Status and Disposition: Inpatient, Discharge to [facility] Attending: Kerline Garza
[2019-04-12] MEDS: Docusate CAP* 100 MG PO PRN (20:08)
[2019-04-12] MEDS: Acetaminophen TAB* 325 MG PO PRN (20:08)
[2019-04-13 06:08] LABS: Calcium 8.3 mg/dL (8.6-10.3); EGFR African American 36.5 (>60); EGFR Non-African American 30.2 (>60); Potassium 4.1 mmol/L (3.5-5.0)
[2019-04-13] MEDS: Levothyroxine TAB* 50 MCG TAB PO SCH (06:54)
[2019-04-13 07:38] VITALS: BP 139/69
[2019-04-13] MEDS: Aspirin EC TAB* 81 MG TAB.EC PO SCH (07:50)
[2019-04-13] MEDS: Apixaban* 2.5 MG TAB PO SCH (07:52)
[2019-04-13] MEDS: Digoxin TAB* 0.125 MG PO SCH (07:54)
[2019-04-13] MEDS: Atorvastatin* 20 MG TAB PO SCH (07:55)
[2019-04-13] MEDS: Potassium Chlor TAB* 10 MEQ TAB.ER PO SCH (07:55)
[2019-04-13] MEDS: Metoprolol Succinate XL TAB* 50 MG PO SCH (07:56)
[2019-04-13] MEDS: Cyanocobalamin TAB* 500 MCG PO SCH (07:56)
[2019-04-13] MEDS: Folic Acid TAB* 1 MG PO SCH (07:56)
[2019-04-13] MEDS ORDERED: Bumetanide TAB* 2 MG PO SCH (09:00)
--- NOTE | 2019-04-13 11:44 | DS ---
CC: Dr. Quevedo; Dr. Cisneros; Dr. Lees * DATE OF ADMISSION: 04/03/2019. DATE OF DISCHARGE: 04/13/2019. PROVIDER: Ambar Elkins NP. ATTENDING PHYSICIAN: Dr. Garza * (dictated by Ambar Elkins NP). PRIMARY CARE PHYSICIAN: Dr. Quevedo. CONSULTING PHYSICIANS: Dr. Sherman, Dr. Thompson, Dr. Lees. PRIMARY DIAGNOSES: CHF exacerbation and acute on chronic kidney injury. SECONDARY DIAGNOSES: Hypertension, anemia, COPD, coronary artery disease. PROCEDURES: None. STUDIES: 1. Chest x-ray on 04/02/2019 showed mild interval worsening of pulmonary vascular congestion and interstitial edema. 2. Transthoracic echocardiogram showed an ejection fraction of 20 to 25 percent with diffuse hypokinesis with regional variations. Basal segments are best preserved. Left and right atrium are severely dilated. Mitral valve has mild stenosis. No significant pericardial effusion. 3. Chest x-ray on 04/12/2019 showed similar burden of interstitial pulmonary edema, small pleural effusion, and unchanged cardiomegaly with postoperative changes. PERTINENT LABORATORY DATA: RBC 3.06, hemoglobin 10.3, hematocrit 32, MCV 103, MCH 34, RDW 16, platelet count 105; INR 2.08; chloride 100, carbon dioxide 38, BUN 29, creatinine 1.61, calcium 8.3, total protein 5.3. Digoxin level on 04/07 was 1.9. HISTORY OF PRESENT ILLNESS/HOSPITAL COURSE: This is an 88-year-old female with a past medical history significant for atrial fibrillation, status post pacemaker placement, heart failure with previous preserved ejection fraction, chronic kidney disease, hypothyroidism, hypertension, and left bundle branch block who presented to the emergency room 04/02/2019 for four days worth of worsening weakness, lower extremity edema, and shortness of breath. She was supposed to, one that day, go to her electrophysiology appointment, though was weakened enough that she was unable to lift her legs to get into the car. Of note, the patient had had her pacemaker placement originally done in February of 2019 and has been having off and on issues of congestive heart failure since. Visited the emergency room on 03/17/2019 and was sent home due to mild heart failure exacerbation with an order to increase her Lasix and to follow-up with electrophysiology. She was also having worsening orthopnea and sleeping on two pillows. In the emergency room, she was found to have elevated serum creatinine, elevated BNP, slightly elevated trops, and was found to be in A-fib with a rate of around 100 which has been her baseline over the past month with periods of attempted tachy conversion by her pacemaker that were not successful. An echocardiogram was repeated which showed a new ejection fraction of 20 to 25 percent which is felt to be due either to her ongoing tachycardia or pacemaker. Initially, her Metoprolol was converted to Succinate from Tartrate and Eliquis was held due to her elevated creatinine. Her acute on chronic kidney injury was also felt to be due to hypervolemia and so initially the patient was treated with Furosemide IV. However, over the next two days, there was not much improvement in heart rate. Diuresis was not as effective as hoped and therefore the patient was switched from IV Furosemide to IV Bumex on 04/05/2019 and was given a loading dose of Digoxin. The next day, the heart rate appeared to have improved from the 1-teens down into the 60s and 70s and has remained there ever since. With this switching to IV Bumex, diuresis was much more effective. With the combination of both the Digoxin and Bumex, her breathing improved; however, she has been continuing to require nasal cannula O2 supplementation. At this time, Amiodarone was stopped. On the , she was converted from IV to p.o. Bumex with shortness of breath still continuing to improve, though incrementally. On the , as the patient was still not quite euvolemic, Bumex dose was increased to 3 mg orally daily. Today, the patient is sitting up in her chair and feels fine. She does not report any shortness of breath or chest pain. She has no lower extremity edema and other has no other acute complaints. REVIEW OF SYSTEMS: A 12 point system review was performed. Pertinent positives , there are none. Pertinent negatives, denies any lightheadedness, dizziness, chest pain, palpitation, shortness of breath, abdominal pain, nausea, vomiting, or issues moving her bowels or bladder. PHYSICAL EXAMINATION: General: This is a well-developed older woman seen sitting up in a chair, in no acute distress. Vital Signs: 97.4 Fahrenheit, 59 pulse, 20 respirations, 100 percent oxygen on one liter via nasal cannula, and 139/69 blood pressure. HEENT: Conjunctivae pink and moist. PERRLA. EOM's intact. Oropharynx clear. Mucous membranes moist. Neck is supple. Cardiac: In atrial fibrillation on cardiac monitoring, though rate controlled in the 60s. No murmurs, gallops, or rubs appreciated. Respiratory: Lung sounds diminished throughout but clear bilaterally on one liter of oxygen via nasal cannula. Abdomen: Soft, nontender, nondistended with positive bowel sounds times four. Musculoskeletal: No clubbing or cyanosis of the digits. Able to move all extremities. Neurologic: Sensation intact to light touch. No focal deficits appreciated. Psych: She is alert and oriented to herself and place. Thought content organized. DISCHARGE PLAN: DIET: Heart-healthy, caffeine okay. ACTIVITY: As tolerated with PT and OT recommended. She is to return to the emergency room should she become severely dyspneic again or sudden chest pain, particularly if it radiates down her left arm, back, jaw. PLAN FOR EACH CONDITION: 1. Congestive heart failure with reduced ejection fraction: She is to continue her Bumex 3 mg daily with daily weights. She should continue to be closely monitored with this newer dose adjustment. 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 She is to continue her Digoxin with a redraw of Digoxin level as well as electrolytes and CBC within one week. She is to continue her Metoprolol. Please follow-up with Dr. Cisneros as an outpatient. 2. Atrial fibrillation: She has been resistant to conversion to sinus rhythm over the past two months despite pacemaker placement and various medications. Current goal is to be rate controlled with Digoxin and Metoprolol. Again, she is to follow- up with electrophysiology. Chronic kidney disease. Her creatinine last was 1.61 which is around her baseline. She is considered stable at this time. 3. Coronary artery disease: Continue her aspirin, Atorvastatin, and beta emmett. 4. Hyperlipidemia: Continue Atorvastatin. 5. Code status: Full code. MEDICATIONS: New medications upon discharge: 1. Bumex 3 mg p.o. daily. 2. Digoxin 0.125 mg p.o. q.48 hours. 3. Metoprolol Succinate 50 mg p.o. b.i.d. 4. Nitro 0.4 mg sublingually q.5 minutes prn for angina. Medications to continue upon discharge: 1. Acetaminophen 650 mg p.o. q.6 hours prn. 2. Apixaban 2.5 mg p.o. b.i.d. 3. Aspirin 81 mg p.o. q.a.m. 4. Atorvastatin 20 mg p.o. daily. 5. Cyanocobalamin 1,000 mcg p.o. q.a.m. 6. Folic acid 1 mg p.o. q.a.m. 7. Levothyroxine 50 mcg p.o. q.a.m. 8. Potassium Citrate 10 mEq p.o. daily. 9. Pantoprazole 40 mg p.o. daily. 10. Ferrous Sulfate 325 mg p.o. q.a.m. CONDITION ON DISCHARGE: Stable. DISPOSITION: To [facility]. TIME SPENT: Time spent on patient was about 40 minutes with 20 minutes spent face- to-face. AMBAR ELKINS, MADY [id number]/[facility] #: [id number] DONNA
== END 2019-04-13 12:57 | DRG 291 ==
LOC: ED 14:59 → MEDTELE 18:45 → OBSVTOIN 04-03 11:00
PROVIDERS: ADMIT Internal Medicine; ATTEND Internal Medicine
DX: I13.0 Hypertensive heart and chronic kidney disease with heart failure and stage 1 through stage 4 chronic kidney disease, or unspecified chronic kidney disease (principal); I50.43 Acute on chronic combined systolic (congestive) and diastolic (congestive) heart failure; I48.92 Unspecified atrial flutter; E87.1 Hypo-osmolality and hyponatremia; E87.2 Acidosis; N17.9 Acute kidney failure, unspecified; I48.21 Permanent atrial fibrillation; I25.10 Atherosclerotic heart disease of native coronary artery without angina pectoris; I73.9 Peripheral vascular disease, unspecified; J44.9 Chronic obstructive pulmonary disease, unspecified; M19.90 Unspecified osteoarthritis, unspecified site; N18.9 Chronic kidney disease, unspecified; I44.7 Left bundle-branch block, unspecified; E03.9 Hypothyroidism, unspecified; E78.5 Hyperlipidemia, unspecified; K22.5 Diverticulum of esophagus, acquired; E66.9 Obesity, unspecified; R13.10 Dysphagia, unspecified; I42.9 Cardiomyopathy, unspecified; I49.5 Sick sinus syndrome; D63.1 Anemia in chronic kidney disease; R09.02 Hypoxemia; Z95.0 Presence of cardiac pacemaker; I25.2 Old myocardial infarction; Z95.5 Presence of coronary angioplasty implant and graft; Z95.2 Presence of prosthetic heart valve; Z68.28 Body mass index [BMI] 28.0-28.9, adult; Z79.890 Hormone replacement therapy; Z79.82 Long term (current) use of aspirin; Z79.01 Long term (current) use of anticoagulants
CPT/HCPCS: 36415; 71045; 71046; 80048; 80053; 80162; 81003; 81015; 82607; 82728; 82746; 83540; 83550; 83605; 83735; 83880; 84443; 84484; 85025; 85610; 86140; 87077; 87086; 87186; 93005; 93306; 94762; 99284; A9270-GY; C8929; J1160; J1940; J3475